=== PATIENT | female | born 1970 | race Caucasian/White ===

== ENCOUNTER → 2017-05-16 10:56 | Outpatient (CLI) | payer BC, MEDICARE, SELFPAY ==
[2017-05-16 11:29] LABS: Absolute Lymphocyte Count 1.15 X10^3/ul (0.83-4.51); Absolute Neutrophil Count 6.5 X10^3/uL (2.0-7.7); Basophil# 0.01 X10^3/uL; Basophil% 0.1 % (0-1); Eosinophils% 1.2 % (0-5); Hematocrit 30.5 % (37-47); Hemoglobin 9.7 g/dl (12.0-15.0); Lymphocyte # 1.15 X10^3/ul (4.0); Lymphocyte % 13.6 % (19-41); Mean Corp Hgb Conc 31.8 g/gl (32-36); Mean Corpuscular Hgb 25.6 pg (27.0-32.0); Mean Corpuscular Volume 80.5 fL (81-99); Mean Platelet Vol. 9.4 fl (6.2-12.0); Monocyte# 0.65 X10^3/uL; Monocyte% 7.7 % (0-10); Neutrophil # 6.49 X10^3/uL (2.7-7.7); Platelet Count 198 K/mm3 (150-450); RBC Distribution Width CV 15.1 % (11.6-14.6); RBC Distribution Width SD 43.9 fl (35.1-43.9); Red Blood Count 3.79 M/mm3 (4.2-5.4); White Blood Count 8.4 K/mm3 (4.4-11.0)
[2017-05-16 11:31] LABS: POSITIVE COUNT NO; POSITIVE DIFFERENTIAL NO; POSITIVE MORPHOLOGY NO
[2017-05-16 11:50] LABS: ALB/GLOB Ratio 0.5 RATIO (0.9-2.4); AST(SGOT) 16 U/L (15-37); Alanine Aminotransfer ALT/SGPT 15 U/L (13-56); Albumin, Serum 2.7 g/dL (3.2-5.0); Alkaline Phosphatase 146 U/L (45-117); Anion Gap 6 (5-15); BUN 16 mg/dL (7-18); BUN/Creat Ratio 17.7 RATIO (10-20); Chloride 102 mmol/L (98-107); EST Glomerular Filtration Rate 71 mL/min (>60); Est Glom Filt Rate - Afr Amer 86 mL/min (>60); Ferritin 94 ng/mL (8-252); Glucose 261 mg/dL (74-106); Iron 24 ug/dL (50-170); Iron Binding Capacity,Total 294 ug/dL (250-450); PERCENT IRON SATURATION 8.2 % (15.0-55.0); Potassium 4.3 mmol/L (3.5-5.1); Protein, Total 7.7 g/dL (6.4-8.2); Sodium Level 138 mmol/L (136-145)
[2017-05-16 12:18] LABS: Erythrocyte Sedimentation Rate 84 mm/hr (0-20)
== END ==
PROVIDERS: Nurse Practitioner Family; Family Provider Family Medicine; PCP Family Medicine; Visit Provider Internal Medicine Rheumatology
DX: M32.9 Systemic lupus erythematosus, unspecified (principal); M79.7 Fibromyalgia; K21.9 Gastro-esophageal reflux disease without esophagitis; K74.69 Other cirrhosis of liver; I27.0 Primary pulmonary hypertension; E11.8 Type 2 diabetes mellitus with unspecified complications; J45.909 Unspecified asthma, uncomplicated; G47.30 Sleep apnea, unspecified; N20.0 Calculus of kidney
CPT/HCPCS: 36415; 80053; 82728; 83540; 83550; 85025; 85652; 86140

== ENCOUNTER → 2017-05-22 07:56 | Outpatient (CLI) | payer BC, MEDICARE, SELFPAY ==
--- NOTE | 2017-05-22 07:58 | NM_ITS ---
CLINICAL: 46-year-old female with reported history of chronic nausea. SEMI-SOLID PHASE 99m Tc SULFUR COLLOID GASTRIC EMPTYING STUDY COMPARISON: Previous semisolid disease gastric emptying study report 07/21/2016 FINDINGS: The patient was administered 1.2 mCi of 99m Tc sulfur colloid mixed with oatmeal and consumed per os. Image acquisitions in the anterior-posterior projections for a total of 60 minutes. There is prompt visualization of the stomach. There is no gastroesophageal reflux identified. First-order kinetics are maintained throughout the duration of the acquisitions. The T1/2 linear fit was calculated to be 50.13 minutes, (Normal: 12-56 minutes). NM/Gastric Emptying Study IMPRESSION: 1. NORMAL 99m Tc sulfur colloid semi-solid phase (oatmeal) gastric emptying imaging examination. A. There is normal and preserved semi-solid phase gastric emptying compared to normal controls with maintained first order kinetics throughout all components of the examination. (Jose Eduardo et al, J Nucl Med Tech 38: 186, 2010). Electronically Signed: Kelby Howe DO at 8:17 EDT Tel , Service support ,
== END ==
PROVIDERS: Family Provider Family Medicine; PCP Family Medicine; Visit Provider Internal Medicine Medical Oncology
DX: R11.10 Vomiting, unspecified (principal)
CPT/HCPCS: 78264; A9541

== ENCOUNTER → 2017-07-23 12:33 | Outpatient (CLI) | payer BC, MEDICARE, SELFPAY ==
--- NOTE | 2017-07-23 12:33 | DT_ITS ---
This patient was seen during an EMR downtime July 20, 2017 - July 27, 2017. This patient may have a combination of paper and electronic documentation or all paper documentation. All documentation is viewable within the e-chart portion of [facility] for each patient visit.
[2017-07-28 04:53] LABS: ALB/GLOB Ratio 0.9 RATIO (0.9-2.4); AST(SGOT) 18 U/L (15-37); Alanine Aminotransfer ALT/SGPT 20 U/L (13-56); Albumin, Serum 3.8 g/dL (3.2-5.0); Alkaline Phosphatase 98 U/L (45-117); Anion Gap 8 (5-15); BUN 31 mg/dL (7-18); BUN/Creat Ratio 21.1 RATIO (10-20); CRP 5.26 mg/L (0.0-3.0); Calcium,Total 10.2 mg/dL (8.5-10.1); Chloride 106 mmol/L (98-107); Creatinine, Serum 1.47 mg/dL (0.55-1.02); EST Glomerular Filtration Rate 41 mL/min (>60); Est Glom Filt Rate - Afr Amer 50 mL/min (>60); Globulin 4.1 g/dL (2.2-4.2); Glucose 104 mg/dL (74-106); Potassium 4.2 mmol/L (3.5-5.1); Protein, Total 7.9 g/dL (6.4-8.2); Sodium Level 144 mmol/L (136-145)
[2017-07-28 04:59] LABS: Hematocrit 48.9 % (37-47); Hemoglobin 17.8 g/dl (12.0-15.0); Mean Corp Hgb Conc 36.4 g/gl (32-36); Mean Corpuscular Hgb 30.1 pg (27.0-32.0); Mean Corpuscular Volume 82.7 fL (81-99); Mean Platelet Vol. 10.6 fl (6.2-12.0); POSITIVE COUNT NO; POSITIVE DIFFERENTIAL NO; POSITIVE MORPHOLOGY NO; Platelet Count 146 K/mm3 (150-450); RBC Distribution Width CV 15.6 % (11.6-14.6); RBC Distribution Width SD 46.6 fl (35.1-43.9); Red Blood Count 5.91 M/mm3 (4.2-5.4); White Blood Count 6.3 K/mm3 (4.4-11.0)
[2017-07-28 05:00] LABS: Absolute Lymphocyte Count 1.67 X10^3/ul (0.83-4.51); Eosinophil# 0.14 X10^3/uL; Eosinophils% 2.2 % (0-5); Lymphocyte # 1.67 X10^3/ul (4.0); Lymphocyte % 26.5 % (19-41); Monocyte# 0.47 X10^3/uL; Monocyte% 7.4 % (0-10); Neutrophil # 4.01 X10^3/uL (2.7-7.7); Neutrophil % 63.6 % (47-70)
== END ==
PROVIDERS: Family Provider Family Medicine; PCP Family Medicine; Visit Provider Internal Medicine Rheumatology
DX: M32.9 Systemic lupus erythematosus, unspecified (principal); M79.7 Fibromyalgia; K21.9 Gastro-esophageal reflux disease without esophagitis; K74.69 Other cirrhosis of liver; I27.0 Primary pulmonary hypertension; E11.8 Type 2 diabetes mellitus with unspecified complications; J45.909 Unspecified asthma, uncomplicated; G47.30 Sleep apnea, unspecified; N20.0 Calculus of kidney
CPT/HCPCS: 36415; 80053; 85025; 86140

== ENCOUNTER → 2017-10-01 09:55 | Outpatient (CLI) | payer BC, MEDICARE, SELFPAY ==
[2017-10-01 12:33] LABS: D-Dimer Quantitative (DVT/PE) 0.46 FEU/ug/m (0.27-0.49)
== END ==
PROVIDERS: Family Provider Family Medicine; PCP Family Medicine; Visit Provider Internal Medicine Pulmonary Disease
DX: R06.00 Dyspnea, unspecified (principal); Z86.718 Personal history of other venous thrombosis and embolism
CPT/HCPCS: 36415; 71046; 85379

== ENCOUNTER → 2017-10-02 08:59 | Outpatient (CLI) | payer BC, MEDICARE, SELFPAY ==
--- NOTE | 2017-10-04 07:09 | EEG ---
- Electroencephalogram Date of service 10/02/2017 History EEG is being done in this 47 yr F to rule out seizures EEG Description: This is an 18 channel EEG with 10-20 lead placement system. Bipolar montages, Referential and Circumferential montages were reviewed. Photic stimulation was performed but Hyperventilation were performed due to the possibility of having DVT per Tech documentation. The posterior dominant rhythm is 10 HZ synchronous, symmetric, reacting to eye opening and closing. Photo stimulation elicited normal driving response but no abnormal photoparoxysmal response, Hyperventilation was not performed. Sleep was identified. There is no abnormal background slowing noted. Low voltage recording. Muscle artefact and EKG artefact noted during the record. There was no epileptiform discharges or electrographic seizures noted during this recording. EEG Interpretation This is a normal awake and asleep EEG. There is no epileptiform discharges or electrographic seizures noted during the record.
== END ==
PROVIDERS: Family Provider Family Medicine; PCP Family Medicine; Visit Provider Internal Medicine Pulmonary Disease
DX: R06.00 Dyspnea, unspecified (principal); R60.0 Localized edema; K14.8 Other diseases of tongue; R25.1 Tremor, unspecified
CPT/HCPCS: 93970; 95819

== ENCOUNTER → 2017-10-13 16:51 | Outpatient (CLI) | payer BC, MEDICARE, SELFPAY ==
[2017-10-09 12:20] LABS: Creatinine, Serum 0.94 mg/dL (0.55-1.02); EST Glomerular Filtration Rate 68 mL/min (>60); Est Glom Filt Rate - Afr Amer 82 mL/min (>60)
== END ==
PROVIDERS: Family Provider Family Medicine; PCP Family Medicine; Visit Provider Internal Medicine Pulmonary Disease
DX: E11.9 Type 2 diabetes mellitus without complications (principal); R06.00 Dyspnea, unspecified; R60.9 Edema, unspecified
CPT/HCPCS: 36415; 71275; 82565; Q9967

== ENCOUNTER → 2017-12-28 17:02 | Outpatient (CLI) | payer BC, MEDICARE, SELFPAY ==
[2017-12-28 17:56] LABS: Absolute Neutrophil Count 5.1 X10^3/uL (2.0-7.7); Basophil# 0.01 X10^3/uL; Basophil% 0.1 % (0-1); Eosinophils% 1.4 % (0-5); Hematocrit 28.7 % (37-47); Hemoglobin 9.4 g/dl (12.0-15.0); Lymphocyte % 22.1 % (19-41); Mean Corp Hgb Conc 32.8 g/gl (32-36); Mean Corpuscular Hgb 27.9 pg (27.0-32.0); Mean Corpuscular Volume 85.2 fL (81-99); Mean Platelet Vol. 10.1 fl (6.2-12.0); Monocyte# 0.43 X10^3/uL; Monocyte% 5.9 % (0-10); Neutrophil # 5.08 X10^3/uL (2.7-7.7); Neutrophil % 70.1 % (47-70); Platelet Count 224 K/mm3 (150-450); RBC Distribution Width CV 15.8 % (11.6-14.6); RBC Distribution Width SD 47.4 fl (35.1-43.9); Red Blood Count 3.37 M/mm3 (4.2-5.4); White Blood Count 7.3 K/mm3 (4.4-11.0)
[2017-12-28 18:03] LABS: POSITIVE COUNT NO; POSITIVE DIFFERENTIAL NO; POSITIVE MORPHOLOGY NO
[2017-12-28 18:47] LABS: ALB/GLOB Ratio 0.8 RATIO (0.9-2.4); AST(SGOT) 19 U/L (15-37); Alanine Aminotransfer ALT/SGPT 35 U/L (13-56); Albumin, Serum 3.7 g/dL (3.2-5.0); Alkaline Phosphatase 138 U/L (45-117); Anion Gap 7 (5-15); BUN 38 mg/dL (7-18); Calcium,Total 9.4 mg/dL (8.5-10.1); Chloride 109 mmol/L (98-107); Creatinine, Serum 1.41 mg/dL (0.55-1.02); EST Glomerular Filtration Rate 43 mL/min (>60); Est Glom Filt Rate - Afr Amer 52 mL/min (>60); Ferritin 345 ng/mL (8-252); Globulin 4.4 g/dL (2.2-4.2); Glucose 134 mg/dL (74-106); Iron 57 ug/dL (50-170); Iron Binding Capacity,Total 286 ug/dL (250-450); PERCENT IRON SATURATION 19.9 % (15.0-55.0); Protein, Total 8.1 g/dL (6.4-8.2); Sodium Level 139 mmol/L (136-145)
== END ==
PROVIDERS: Internal Medicine Medical Oncology; Family Provider Family Medicine; PCP Family Medicine; Referring Provider Internal Medicine Pulmonary Disease; Visit Provider Internal Medicine Pulmonary Disease
DX: M32.9 Systemic lupus erythematosus, unspecified (principal); M79.7 Fibromyalgia; E11.9 Type 2 diabetes mellitus without complications; D50.9 Iron deficiency anemia, unspecified; E61.1 Iron deficiency
CPT/HCPCS: 36415; 80053; 82728; 83540; 83550; 85025

== ENCOUNTER → 2018-05-22 09:23 | Outpatient (CLI) | payer BC, MEDICARE, SELFPAY ==
[2018-05-22 10:17] LABS: Absolute Lymphocyte Count 1.42 X10^3/ul (0.83-4.51); Absolute Neutrophil Count 3.8 X10^3/uL (2.0-7.7); Eosinophil# 0.15 X10^3/uL; Eosinophils% 2.6 % (0-5); Hematocrit 29.2 % (37-47); Hemoglobin 9.4 g/dl (12.0-15.0); Lymphocyte # 1.42 X10^3/ul (4.0); Lymphocyte % 24.6 % (19-41); Mean Corp Hgb Conc 32.2 g/gl (32-36); Mean Corpuscular Hgb 28.1 pg (27.0-32.0); Mean Corpuscular Volume 87.2 fL (81-99); Mean Platelet Vol. 10.2 fl (6.2-12.0); Monocyte# 0.37 X10^3/uL; Monocyte% 6.4 % (0-10); Neutrophil # 3.82 X10^3/uL (2.7-7.7); Neutrophil % 66.1 % (47-70); POSITIVE COUNT NO; POSITIVE DIFFERENTIAL NO; POSITIVE MORPHOLOGY NO; Platelet Count 151 K/mm3 (150-450); RBC Distribution Width SD 44.6 fl (35.1-43.9); Red Blood Count 3.35 M/mm3 (4.2-5.4); White Blood Count 5.8 K/mm3 (4.4-11.0)
[2018-05-22 10:34] LABS: ALB/GLOB Ratio 0.8 RATIO (0.9-2.4); AST(SGOT) 27 U/L (15-37); Alanine Aminotransfer ALT/SGPT 32 U/L (13-56); Albumin, Serum 3.3 g/dL (3.2-5.0); Alkaline Phosphatase 129 U/L (45-117); Anion Gap 6 (5-15); BUN 35 mg/dL (7-18); BUN/Creat Ratio 24.5 RATIO (10-20); Calcium,Total 9.1 mg/dL (8.5-10.1); Chloride 105 mmol/L (98-107); Creatinine, Serum 1.43 mg/dL (0.55-1.02); EST Glomerular Filtration Rate 42 mL/min (>60); Est Glom Filt Rate - Afr Amer 51 mL/min (>60); Glucose 266 mg/dL (74-106); Potassium 4.8 mmol/L (3.5-5.1); Protein, Total 7.3 g/dL (6.4-8.2); Sodium Level 138 mmol/L (136-145)
== END ==
PROVIDERS: Family Provider Family Medicine; PCP Family Medicine; Referring Provider Internal Medicine Rheumatology; Visit Provider Internal Medicine Rheumatology
DX: M32.9 Systemic lupus erythematosus, unspecified (principal); M79.7 Fibromyalgia; K74.69 Other cirrhosis of liver; I27.0 Primary pulmonary hypertension; E11.8 Type 2 diabetes mellitus with unspecified complications; J45.909 Unspecified asthma, uncomplicated; G47.30 Sleep apnea, unspecified; N20.0 Calculus of kidney; K21.9 Gastro-esophageal reflux disease without esophagitis
CPT/HCPCS: 36415; 80053; 85025

== ENCOUNTER → 2018-05-28 11:24 | Outpatient (CLI) | payer BC, MEDICARE, SELFPAY ==
[2017-07-14 14:27] VITALS: BMI 33.0
[2018-05-28 12:33] LABS: EXAGEN MAILED SPECIMEN
== END ==
PROVIDERS: Family Provider Family Medicine; PCP Family Medicine; Referring Provider Internal Medicine Rheumatology; Visit Provider Internal Medicine Rheumatology
DX: M32.9 Systemic lupus erythematosus, unspecified (principal); M79.7 Fibromyalgia; K21.9 Gastro-esophageal reflux disease without esophagitis; K74.69 Other cirrhosis of liver

== ENCOUNTER → 2018-07-22 | Outpatient (CLI) | payer BC, MEDICARE, SELFPAY ==
[2017-07-14 14:27] VITALS: BMI 33.0
[2018-07-22 12:24] LABS: Eosinophil# 0.17 X10^3/uL; Eosinophils% 3.7 % (0-5); Hemoglobin 9.4 g/dl (12.0-15.0); Mean Corp Hgb Conc 32.4 g/gl (32-36); Mean Corpuscular Hgb 28.2 pg (27.0-32.0); Mean Corpuscular Volume 87.1 fL (81-99); Mean Platelet Vol. 10.9 fl (6.2-12.0); Monocyte# 0.24 X10^3/uL; Monocyte% 5.2 % (0-10); Neutrophil # 3.04 X10^3/uL (2.7-7.7); Neutrophil % 66.4 % (47-70); Platelet Count 163 K/mm3 (150-450); RBC Distribution Width CV 13.7 % (11.6-14.6); RBC Distribution Width SD 41.4 fl (35.1-43.9); Red Blood Count 3.33 M/mm3 (4.2-5.4); White Blood Count 4.6 K/mm3 (4.4-11.0)
[2018-07-22 12:36] LABS: POSITIVE COUNT NO; POSITIVE DIFFERENTIAL NO; POSITIVE MORPHOLOGY NO
[2018-07-22 13:15] LABS: Vitamin B12 356 pg/mL (211-911)
[2018-07-22 13:17] LABS: ALB/GLOB Ratio 0.8 RATIO (0.9-2.4); AST(SGOT) 23 U/L (15-37); Alanine Aminotransfer ALT/SGPT 27 U/L (13-56); Albumin, Serum 3.1 g/dL (3.2-5.0); Alkaline Phosphatase 81 U/L (45-117); Anion Gap 11 (5-15); BUN 37 mg/dL (7-18); BUN/Creat Ratio 22.3 RATIO (10-20); Calcium,Total 9.4 mg/dL (8.5-10.1); Chloride 102 mmol/L (98-107); Creatinine, Serum 1.66 mg/dL (0.55-1.02); EST Glomerular Filtration Rate 35 mL/min (>60); Est Glom Filt Rate - Afr Amer 43 mL/min (>60); Ferritin 259 ng/mL (8-252); Globulin 4.1 g/dL (2.2-4.2); Glucose 411 mg/dL (74-106); Potassium 4.9 mmol/L (3.5-5.1); Protein, Total 7.2 g/dL (6.4-8.2); Sodium Level 137 mmol/L (136-145)
[2018-07-23 10:49] LABS: Haptoglobin 144 mg/dL (34-200)
== END | disposition home or self-care (01) ==
LOC: MTLAB 10:54
PROVIDERS: Family Provider Family Medicine; PCP Family Medicine; Referring Provider Internal Medicine Medical Oncology; Visit Provider Internal Medicine Medical Oncology
DX: D50.9 Iron deficiency anemia, unspecified (principal); D63.8 Anemia in other chronic diseases classified elsewhere
CPT/HCPCS: 36415; 80053; 82607; 82728; 82746; 83010; 85025

== ENCOUNTER 2018-07-30 16:11 | Inpatient (IN) | payer BC, MEDICARE, SELFPAY ==
[2018-07-27 15:09] VITALS: BMI 32.4
[2018-07-30] VITALS (7 sets, daily range): BP systolic 115–161; BP diastolic 77–84; PULSE 85–113; RESP 16–21; TEMP 36.3–37.6; O2SAT 94–97; BMI 33.0; BMI 33.5; BMI 33.6
--- NOTE | 2018-07-30 16:30 | ED.VISSUMM ---
- ER Visit Summary Date of Service: 07/30/18 Chief Complaint: Left foot osteomyelitis History of Present Illness: The patient is a 48 F who comes in with osteomyelitis of the left foot. The patient is a diabetic and has had previous transmetatarsal amputations of both feet. She has been following with Dr. Doyle with podiatry. She had an MRI on Thursday which showed osteomyelitis of the foot. Patient has had continued pain in that area. She has had a temperature of up to 100.9 ?F at home. Dr. Doyle spoke with Dr. Aguilar who stated that Dr. Marie would do a left below-knee amputation. The patient's blood sugars been high at home. She has been trying to keep it down with Humalog. Physical Examination: Vital signs are reviewed. HEENT exam unremarkable. Heart is tachycardic and regular rhythm. Lungs are clear. Abdomen soft nontender. Left foot is tender diffusely. There is no swelling or cellulitic changes. She has bilateral foot transmetatarsal amputations. Her neurologic exam is normal. Test Results: CBC shows a white count of 5.3, hemoglobin 9.6. Creatinine 1.76. Blood cultures were obtained Emergency Department Course and Treatment: Patient will be started on vancomycin and ceftriaxone. Discussed with hospitalist for admission Treatment Plan: [] Disposition: Admit for orthopedic consultation and likely BKA Impression: Left foot osteomyelitis This note was generated with Eg[employer] dictation software. It may contain incorrect words, spelling, and punctuation that were not noted in review of the chart prior to signing ED Disposition - Plan for ED Patient: Referrals: Johann Jimenez MD [Primary Care Provider] -
[2018-07-30 16:49] LABS: Absolute Neutrophil Count 3.4 X10^3/uL (2.0-7.7); Eosinophil# 0.14 X10^3/uL; Eosinophils% 2.6 % (0-5); Hematocrit 28.7 % (37-47); Hemoglobin 9.6 g/dl (12.0-15.0); Lymphocyte % 24.5 % (19-41); Mean Corp Hgb Conc 33.4 g/gl (32-36); Mean Corpuscular Hgb 28.4 pg (27.0-32.0); Mean Corpuscular Volume 84.9 fL (81-99); Mean Platelet Vol. 9.6 fl (6.2-12.0); Monocyte# 0.43 X10^3/uL; Monocyte% 8.1 % (0-10); Neutrophil # 3.42 X10^3/uL (2.7-7.7); Neutrophil % 64.4 % (47-70); Platelet Count 184 K/mm3 (150-450); RBC Distribution Width CV 13.9 % (11.6-14.6); RBC Distribution Width SD 42.9 fl (35.1-43.9); Red Blood Count 3.38 M/mm3 (4.2-5.4); White Blood Count 5.3 K/mm3 (4.4-11.0)
[2018-07-30] MEDS: Morphine 4 MG/ML Syringe IV (16:53)
[2018-07-30 16:54] LABS: POSITIVE COUNT NO; POSITIVE DIFFERENTIAL NO; POSITIVE MORPHOLOGY NO
[2018-07-30] MEDS: Ondansetron 4 MG/2 ML Vial IV (16:54)
[2018-07-30 17:06] LABS: Prothrombin Time (Protime)PT. 13.3 SECONDS (11.7-14.9)
[2018-07-30 17:07] LABS: ALB/GLOB Ratio 0.9 RATIO (0.9-2.4); AST(SGOT) 19 U/L (15-37); Alanine Aminotransfer ALT/SGPT 25 U/L (13-56); Albumin, Serum 3.5 g/dL (3.2-5.0); Alkaline Phosphatase 102 U/L (45-117); Anion Gap 6 (5-15); BUN 48 mg/dL (7-18); BUN/Creat Ratio 27.3 RATIO (10-20); Calcium,Total 9.3 mg/dL (8.5-10.1); Chloride 106 mmol/L (98-107); Creatinine, Serum 1.76 mg/dL (0.55-1.02); EST Glomerular Filtration Rate 33 mL/min (>60); Est Glom Filt Rate - Afr Amer 40 mL/min (>60); Estimated Creatinine Clearance 36.99 ml/min; Globulin 4.1 g/dL (2.2-4.2); Glucose 294 mg/dL (74-106); Partial Thromboplast Time 32.1 Seconds (24.1-36.2); Potassium 4.3 mmol/L (3.5-5.1); Protein, Total 7.6 g/dL (6.4-8.2); Sodium Level 135 mmol/L (136-145)
[2018-07-30 17:11] LABS: Bacteria 0 SEEN /hpf (None Seen); Mucous, Urine 0 SEEN /hpf (<or=2+); Red Blood Cells-Urine 0 SEEN /hpf (0-5)
[2018-07-30 17:16] LABS: Color, Urine Yellow (Yellow); Glucose, Dipstick 1000 mg/dl (Normal); Ketone-Dipstick Negative (Negative); Leukocyte Esterase-Dipstick Negative /ul (Negative); Nitrite-Dipstick Negative (Negative); Occult Blood-Urine 50 /ul (Negative); Protein-Dipstick 100 mg/dl (Negative); Specific Gravity, Urine 1.015 (1.002-1.030); Urine Bilirubin Dipstick Negative (Negative); Urine Clarity Clear (Clear); Urine Urobilinogen Normal (Normal)
[2018-07-30 17:22] LABS: Lactic Acid 1.6 mmol/L (0.4-2.0)
[2018-07-30 17:31] LABS: Squamous Epithelial Cells - UA 0-5 SEEN /hpf (5-10); White Blood Cells 0-5 SEEN /hpf (0-5)
--- NOTE | 2018-07-30 17:45 | PCM.HP.STD ---
<Bradley Fox - Last Filed: 07/30/18 17:45> Problem List (1) Osteomyelitis of left foot Status: Acute (2) COPD (chronic obstructive pulmonary disease) Status: Chronic (3) GERD (gastroesophageal reflux disease) Status: Chronic (4) Iron (Fe) deficiency anemia Status: Resolved (5) SLE (systemic lupus erythematosus) Status: Chronic (6) Pulmonary hypertension Status: Chronic (7) Asthma Status: Chronic (8) Diabetes mellitus Status: Chronic Comment: insulin resistance on U500 (9) History of MRSA infection Status: Chronic (10) Depression Status: Chronic (11) Peripheral neuropathy Status: Chronic History of Present Illness Date of Admission: 07/30/18 Chief Complaint: osteo left foot The patient is a 48 year old F with past medical history as above, most notable for severe type 2 diabetes with multiple amputations in the past including both right and left transmetatarsal, MRSA infections, patient of Dr. Doyle, who was sent by Dr. Doyle for development of osteomyelitis of the left foot. The patient has been on Augmentin as an outpatient and had an MRI of the foot this week. She was told today that the MRI resulted showing osteo-of the left side and that she would need to come in for a BKA by Dr. Marie. She has been feeling unwell this week, she reports subjective fevers and chills at home, nausea vomiting and diarrhea, however the left foot itself does not appear acutely infected. There is no erythema, open wounds, drainage, or swelling. In the ER she is afebrile with no leukocytosis. I do not have the MRI results at this time, they were done at [facility]. She will be admitted with an orthopedic consult. [] Past Medical History Past Medical History (Chronic Problems): Chronic Problems (Last Reviewed 07/27/18 @ 15:03 by Mary Jo Coto) COPD (chronic obstructive pulmonary disease) (Chronic) GERD (gastroesophageal reflux disease) (Chronic) Diastolic dysfunction (Chronic) Abnormal CT scan, liver (Chronic) SLE (systemic lupus erythematosus) (Chronic) Pulmonary hypertension (Chronic) Asthma (Chronic) Diabetes mellitus (Chronic) insulin resistance on U500 History of MRSA infection (Chronic) Cirrhosis of liver (Chronic) BEVERLY Anemia of chronic disease (Chronic) Status post transmetatarsal amputation of right foot (Chronic) 04/11/[address] Lindsay Depression (Chronic) Peripheral neuropathy (Chronic) Medical History: Medical History (Last Reviewed 07/27/18 @ 15:03 by Mary Jo Coto) COPD (chronic obstructive pulmonary disease) (Chronic) J44.9 GERD (gastroesophageal reflux disease) (Chronic) K21.9 Diastolic dysfunction (Chronic) I51.9 Chest pain (Resolved) R07.9 Right middle lobe pneumonia (Resolved) J18.1 Acute kidney injury (Resolved) N17.9 Iron (Fe) deficiency anemia (Resolved) D50.[address] scan, liver (Chronic) R93.2 Cellulitis of left foot (Acute) L03.116 Lymphadenopathy, inguinal (Resolved) R59.0 SLE (systemic lupus erythematosus) (Chronic) M32.9 Pulmonary hypertension (Chronic) I27.2 Asthma (Chronic) J45.909 Diabetes mellitus (Chronic) E11.9 insulin resistance on U500 History of MRSA infection (Chronic) Z86.14 Cellulitis of right foot (Resolved) L03.115 due to MRSA Infection of right great toe due to methicillin resistant Staphylococcus aureus (MRSA) (Resolved) A49.02 R great toe previously amputated Cirrhosis of liver (Chronic) K74.60 BEVERLY Anemia of chronic disease (Chronic) D63.8 Depression (Chronic) F32.9 Peripheral neuropathy (Chronic) G62.9 Osteomyelitis of right foot (Resolved) M86.9 due to MRSA Iron deficiency (Suspected) E61.1 Hypomagnesemia (Resolved) E83.42 History of stroke Z86.73 IBS (irritable bowel syndrome) K58.9 History of hysterectomy Z90.710 Rt ovary removed Allergies atorvastatin [From Lipitor] Adverse Reaction (Severe, Verified 07/27/18 15:04) Vomiting oxycodone HCl [From Percocet] Adverse Reaction (Severe, Verified 07/27/18 15:04) Vomiting Home Medications: Ambulatory Orders Medication Instructions Recorded Duloxetine Hcl [Cymbalta] 90 mg PO DAILY 11/26/12 Enalapril Maleate [Vasotec] 2.5 mg PO BID 11/26/12 Ondansetron [Zofran] 8 mg PO PRN PRN 12/29/12 Esomeprazole Mag Trihydrate 40 mg PO BID 05/24/15 [Nexium] Metoclopramide [Reglan] 10 mg PO TID PRN #20 tab 07/08/15 Budesonide Inhaler 180 mcg 2 puff INHALATION DAILY 10/02/15 [Pulmicort Inhaler 180 mcg] Insulin U-500 [Humulin R U-500 0.6 units SC CONT 10/02/15 ([facility])] traZODone [Desyrel] 100 mg PO QHS 12/27/15 Ergocalciferol [Vitamin D] 50,000 unit PO MOWEFR 01/24/16 Ferrous Sulfate 325 mg PO TIDCM 01/24/16 Lorazepam [Ativan] 1 mg PO TID PRN PRN 01/24/16 traMADol [Ultram] 50 mg PO TID 01/24/16 Albuterol Aerosols [Ventolin 2.5 mg INHALATION Q4H PRN PRN 06/09/16 Aerosols] Albuterol Sulfate [Proventil Hfa] 6.7 gm IH PRN PRN 06/09/16 Magnesium Oxide [Mag-Ox 400] 400 mg PO DAILYCM #30 tab 07/22/16 Sucralfate 1 gm PO QHS 09/01/16 Gabapentin [Neurontin] 800 mg PO TID 05/19/17 potassium citrate ER 5 mEq (540 10 meq PO TID tab 06/03/17 mg) tablet,extended release rosuvastatin 10 mg tablet 20 mg PO DAILY tab 06/03/17 Surgical History: Surgical History (Last Reviewed 07/27/18 @ 15:04 by Mary Jo Coto) Status post transmetatarsal amputation of right foot (Chronic) Z89.431 04/11/[address] Lindsay History of eye surgery Z98.890 Lt Retina History of amputation of hallux Z98.890, Z89.419 Rt History of carpal tunnel surgery Z92.89 History of cholecystectomy Z90.49 History of hernia repair Z98.890, Z87.19 History of liver biopsy Z98.890 History of lymph node biopsy Z98.890 History of temporal artery biopsy Z98.890 History of tubal ligation Z98.51 Partial nontraumatic amputation of right foot Z89.431 Surgical History: cholecystectomy, - - Left foot surgery secondary to deep wound infection of the left foot with osteomyelitis, left foot surgery secondary to bunion, lithotripsy of the right kidney secondary to kidney stones, D&C, carpal tunnel surgery, left hand surgery secondary to cyst, tubal ligation Psychiatric History: No pertinent psych hx 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 Smoking Status: Never smoker - *Family History Maternal Family History: Family History (Last Reviewed 07/27/18 @ 15:04 by Mary Jo Coto) Mother Hypertension Grandmother Hypertension Diabetes History Items: Hypertension Paternal Family History: Family History (Last Reviewed 07/27/18 @ 15:04 by Mary Jo Coto) Mother Hypertension Grandmother Hypertension Diabetes History Items: Unknown Sibling Family History: Family History (Last Reviewed 07/27/18 @ 15:04 by Mary Jo Coto) Mother Hypertension Grandmother Hypertension Diabetes History Items: Cancer Review of Systems Constitutional: Reports: Chills, Fever, Malaise. Denies: Weight Change HEENT: Denies: Head Aches, Sinus Congestion, Sinus Drainage Cardiovascular: Denies: Chest Pain, Palpitations Respiratory: Denies: Cough, Shortness of breath at rest, Sputum production Gastrointestinal: Reports: Diarrhea, Nausea. Denies: Abdominal Pain, Vomiting Genitourinary: Denies: Dysuria Musculoskeletal: Denies: Joint Pain, Joint Tenderness Skin: Denies: Rash, Wounds Neurological: Denies: Numbness, Tingling, Focal weakness Psychiatric: Denies: Anxiety, Depression, Homicidal Ideations, Suicidal Ideations Hematologic/ Lymphatic: Denies: Easy Bruising, Easy Bleeding VTE Information - Inpt Only VTE Present on Admission: No VTE Mechan Device Prophylaxis: None VTE Pharm Prophylaxis ordered?: Yes Patient Problems: Active and Suspected Problems (Last Reviewed 07/27/18 @ 15:03 by Mary Jo Coto) Osteomyelitis of left foot (Acute) - Physical Exam General: Alert, Oriented x3, Cooperative HEENT: Atraumatic, PERRLA, EOMI, Normocephalic Neck: Supple, No JVD, Negative Carotid Bruits Lungs: Clear to auscultation, Normal air movement Cardiovascular: Regular rate, No murmurs Abdomen: Bowel Sounds Present, Soft, Non Tender, Obese Extremities: No edema, Capillary Refill Less than 3 Seconds Skin: No rashes, No breakdown Musculoskeletal: No Tenderness to Palpation of Joints or Extremities, - - Status post bilateral transmetatarsal amputations Neurological: Cranial nerves II-XII grossly intact Psych/Mental Status: Normal Affect, Appropriate, Alert and oriented to time, place, person, mood and affect Vital Signs Temp Pulse Resp BP Pulse Ox 99.7 F H 106 H 16 115/77 94 07/30/18 16:56 07/30/18 16:43 07/30/18 16:43 07/30/18 16:43 07/30/18 16:43 Oxygen Delivery Method Room Air Weight: 205 lb Body Mass Index (BMI) 33.0 Finger Stick Blood Glucose 191 Laboratory Tests Past 24 Hrs 07/30/18 07/30/18 07/30/18 16:40 16:40 16:40 WBC 5.3 RBC 3.38 L Hgb 9.6 L Hct 28.7 L MCV 84.9 MCH 28.4 MCHC 33.4 RDW 13.9 RDW Differential 42.9 Plt Count 184 MPV 9.6 Immature Gran % (Auto) 0.400 Neut % (Auto) 64.4 Lymph % (Auto) 24.5 [place] % (Auto) 8.1 Eos % (Auto) 2.6 Baso % (Auto) 0.0 Absolute Neuts (auto) 3.4 Absolute Lymphs (auto) 1.30 Total Counted Not Reportable PT 13.3 INR 1.0 APTT 32.1 Sodium 135 L Potassium 4.3 Chloride 106 Carbon Dioxide 23.0 Anion Gap 6 BUN 48 H Creatinine 1.76 H Estim Creat Clear Calc 36.99 Est GFR (MDRD) Af Amer 40 L Est GFR (MDRD) Non-Af 33 L BUN/Creatinine Ratio 27.3 H Glucose 294 H Lactic Acid Calcium 9.3 Total Bilirubin 0.20 AST 19 ALT 25 Alkaline Phosphatase 102 Total Protein 7.6 Albumin 3.5 Globulin 4.1 Albumin/Globulin Ratio 0.9 Urine Color Urine Clarity Urine pH Ur Specific [place] Urine Protein Urine Glucose (UA) Urine Ketones Urine Occult Blood Urine Nitrite Urine Bilirubin Urine Urobilinogen Ur Leukocyte Esterase Urine RBC Urine WBC Ur Squamous Epith Cells Urine Bacteria Urine Mucus 07/30/18 07/30/18 16:40 17:05 WBC RBC Hgb Hct MCV MCH MCHC RDW RDW Differential Plt Count MPV Immature Gran % (Auto) Neut % (Auto) Lymph % (Auto) [place] % (Auto) Eos % (Auto) Baso % (Auto) Absolute Neuts (auto) Absolute Lymphs (auto) Total Counted PT INR APTT Sodium Potassium Chloride Carbon Dioxide Anion Gap BUN Creatinine Estim Creat Clear Calc Est GFR (MDRD) Af Amer Est GFR (MDRD) Non-Af BUN/Creatinine Ratio Glucose Lactic Acid 1.6 Calcium Total Bilirubin AST ALT Alkaline Phosphatase Total Protein Albumin Globulin Albumin/Globulin Ratio Urine Color Yellow Urine Clarity Clear Urine pH 6.0 Ur Specific [place] 1.015 Urine Protein 100 H Urine Glucose (UA) 1000 H Urine Ketones Negative Urine Occult Blood 50 H Urine Nitrite Negative Urine Bilirubin Negative Urine Urobilinogen Normal Ur Leukocyte Esterase Negative Urine RBC 0 SEEN Urine WBC 0-5 SEEN Ur Squamous Epith Cells 0-5 SEEN Urine Bacteria 0 SEEN Urine Mucus 0 SEEN Assessment/Plan All Active Problems (Last Reviewed 07/27/18 @ 15:03 by Mary Jo Coto) Osteomyelitis of left foot (Acute) Chest pain (Resolved) Right middle lobe pneumonia (Resolved) Acute kidney injury (Resolved) Iron (Fe) deficiency anemia (Resolved) Cellulitis of left foot (Acute) Lymphadenopathy, inguinal (Resolved) Cellulitis of right foot (Resolved) Infection of right great toe due to methicillin resistant Staphylococcus aureus (MRSA) (Resolved) Osteomyelitis of right foot (Resolved) Hypomagnesemia (Resolved) MRSA cellulitis of left foot (Resolved) 1. 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 start vanc. Consult Dr. Marie for BKA. ID consult for further direction and duration of abx therapy. Obtain MRI results from [place]. Afebrile, no leukocytosis. 2. T2DM with obesity - continue insulin regimen with U500 and SSI. 3. CKDIII - trend 4. Peripheral neuropathy - home meds 5. GERD - on PPI, carafate 6. HLD - on statin 7. HTN - stable 8. Asthma/COPD/Pulmonary HTN - pt of dr. Mcmahon - prn aerosols. Pulmicort. No acute exacerbation at this time 9. Hx SLE 10. Hx BEVERLY, Cirrhosis - LFTs normal. 11. Anxiety/depression - ativan, trazodone 12. Hx Iron def. anemia - on PO iron, not significantly below baseline. DVT ppx: SCDs DC planning: PTOT post op. This patient was seen by Bradley Fox PA-C under the supervision of Dr. Loja. <Eliana Loja - Last Filed: 07/30/18 18:43> History of Present Illness The patient is a 48 year old F [] Past Medical History Medical History: Medical History (Last Reviewed 07/27/18 @ 15:03 by Mary Jo Coto) COPD (chronic obstructive pulmonary disease) (Chronic) J44.9 GERD (gastroesophageal reflux disease) (Chronic) K21.9 Diastolic dysfunction (Chronic) I51.9 Chest pain (Resolved) R07.9 Right middle lobe pneumonia (Resolved) J18.1 Acute kidney injury (Resolved) N17.9 Iron (Fe) deficiency anemia (Resolved) D50.[address] scan, liver (Chronic) R93.2 Cellulitis of left foot (Acute) L03.116 Lymphadenopathy, inguinal (Resolved) R59.0 SLE (systemic lupus erythematosus) (Chronic) M32.9 Pulmonary hypertension (Chronic) I27.2 Asthma (Chronic) J45.909 Diabetes mellitus (Chronic) E11.9 insulin resistance on U500 History of MRSA infection (Chronic) Z86.14 Cellulitis of right foot (Resolved) L03.115 due to MRSA Infection of right great toe due to methicillin resistant Staphylococcus aureus (MRSA) (Resolved) A49.02 R great toe previously amputated Cirrhosis of liver (Chronic) K74.60 [place]Y Anemia of chronic disease (Chronic) D63.8 Depression (Chronic) F32.9 Peripheral neuropathy (Chronic) G62.9 Osteomyelitis of right foot (Resolved) M86.9 due to MRSA Iron deficiency (Suspected) E61.1 Hypomagnesemia (Resolved) E83.42 History of stroke Z86.73 IBS (irritable bowel syndrome) K58.9 History of hysterectomy Z90.710 Rt ovary removed Allergies atorvastatin [From Lipitor] Adverse Reaction (Severe, Verified 07/27/18 15:04) Vomiting oxycodone HCl [From Percocet] Adverse Reaction (Severe, Verified 07/27/18 15:04) Vomiting Surgical History: Surgical History (Last Reviewed 07/27/18 @ 15:04 by Mary Jo Coto) Status post transmetatarsal amputation of right foot (Chronic) Z89.431 04/11/[address] Lindsay History of eye surgery Z98.890 Lt Retina History of amputation of hallux Z98.890, Z89.419 Rt History of carpal tunnel surgery Z92.89 History of cholecystectomy Z90.49 History of hernia repair Z98.890, Z87.19 History of liver biopsy Z98.890 History of lymph node biopsy Z98.890 History of temporal artery biopsy Z98.890 History of tubal ligation Z98.51 Partial nontraumatic amputation of right foot Z89.431 - *Family History Maternal Family History: Family History (Last Reviewed 07/27/18 @ 15:04 by Mary Jo Coto) Mother Hypertension Grandmother Hypertension Diabetes Paternal Family History: Family History (Last Reviewed 07/27/18 @ 15:04 by Mary Jo Coto) Mother Hypertension Grandmother Hypertension Diabetes Sibling Family History: Family History (Last Reviewed 07/27/18 @ 15:04 by Mary Jo Coto) Mother Hypertension Grandmother Hypertension Diabetes - Physical Exam Vital Signs Temp Pulse Resp BP Pulse Ox 99.7 F H 104 H 21 H 151/84 H 95 07/30/18 16:56 07/30/18 18:05 07/30/18 18:05 07/30/18 18:05 07/30/18 18:05 Oxygen Delivery Method Room Air Weight: 92.986 kg Body Mass Index (BMI) 33.0 Finger Stick Blood Glucose 191 Laboratory Tests Past 24 Hrs 07/30/18 07/30/18 07/30/18 16:40 16:40 16:40 WBC 5.3 RBC 3.38 L Hgb 9.6 L Hct 28.7 L MCV 84.9 MCH 28.4 MCHC 33.4 RDW 13.9 RDW Differential 42.9 Plt Count 184 MPV 9.6 Immature Gran % (Auto) 0.400 Neut % (Auto) 64.4 Lymph % (Auto) 24.5 [place] % (Auto) 8.1 Eos % (Auto) 2.6 Baso % (Auto) 0.0 Absolute Neuts (auto) 3.4 Absolute Lymphs (auto) 1.30 Total Counted Not Reportable PT 13.3 INR 1.0 APTT 32.1 Sodium 135 L Potassium 4.3 Chloride 106 Carbon Dioxide 23.0 Anion Gap 6 BUN 48 H Creatinine 1.76 H Estim Creat Clear Calc 36.99 Est GFR (MDRD) Af Amer 40 L Est GFR (MDRD) Non-Af 33 L BUN/Creatinine Ratio 27.3 H Glucose 294 H Lactic Acid Calcium 9.3 Total Bilirubin 0.20 AST 19 ALT 25 Alkaline Phosphatase 102 Total Protein 7.6 Albumin 3.5 Globulin 4.1 Albumin/Globulin Ratio 0.9 Urine Color Urine Clarity Urine pH Ur Specific [place] Urine Protein Urine Glucose (UA) Urine Ketones Urine Occult Blood Urine Nitrite Urine Bilirubin Urine Urobilinogen Ur Leukocyte Esterase Urine RBC Urine WBC Ur Squamous Epith Cells Urine Bacteria Urine Mucus 07/30/18 07/30/18 16:40 17:05 WBC RBC Hgb Hct MCV MCH MCHC RDW RDW Differential Plt Count MPV Immature Gran % (Auto) Neut % (Auto) Lymph % (Auto) [place] % (Auto) Eos % (Auto) Baso % (Auto) Absolute Neuts (auto) Absolute Lymphs (auto) Total Counted PT INR APTT Sodium Potassium Chloride Carbon Dioxide Anion Gap BUN Creatinine Estim Creat Clear Calc Est GFR (MDRD) Af Amer Est GFR (MDRD) Non-Af BUN/Creatinine Ratio Glucose Lactic Acid 1.6 Calcium Total Bilirubin AST ALT Alkaline Phosphatase Total Protein Albumin Globulin Albumin/Globulin Ratio Urine Color Yellow Urine Clarity Clear Urine pH 6.0 Ur Specific [place] 1.015 Urine Protein 100 H Urine Glucose (UA) 1000 H Urine Ketones Negative Urine Occult Blood 50 H Urine Nitrite Negative Urine Bilirubin Negative Urine Urobilinogen Normal Ur Leukocyte Esterase Negative Urine RBC 0 SEEN Urine WBC 0-5 SEEN Ur Squamous Epith Cells 0-5 SEEN Urine Bacteria 0 SEEN Urine Mucus 0 SEEN Assessment/Plan This patient was seen in conjunction with KEANU Deshpande. I have independently interviewed and examined the patient and reviewed pertinent historical, laboratory, and other data. Please refer to KEANU Deshpande note for his patient's presentation, findings, and recommendations. I have reviewed and his note and concur with his documentation CC: Abnormal MRI report HPI: 48-year-old female past medical history of type II DM, complicated by peripheral neuropathy, status post bilateral amputation of all toes, history of chronic anemia, close up chronically in the outpatient for IV supplementation, hypertension who follows with Dr. Monroy the busser in the outpatient. And had gone to see her for a 3-week history of pain in her foot. This was associated with some subjective feeling of fever and chills. Pain has been progressively worse. Blood sugars subsequently have also been uncontrolled. An MRI of the foot was ordered which was consistent with osteomyelitis of the third metatarsal of the left foot with edema of the soft tissues of the foot but no evidence of an abscess. Her ESR was 72, BC count of 5.7, hemoglobin 9.3, platelet 156 in the outpatient. Patient was sent to the ED for admission for left BKA Patient admits to being initially emotionally distraught. She has accepted it and feels that it is necessary for her to go on with her life as she has to do with this foot infection for a long time. She denied any chest pain or dizziness or palpitations or shortness of breath PMHX: In addition to the above in HPI patient has history of SLE, asthma/COPD/pulmonary hypertension/cirrhosis of the liver/[place]/anxiety/depression PSHx: History of bilateral transmetatarsal, history of carpal tunnel surgery, cholecystectomy, hernia repair, liver biopsy, temporal artery biopsy, history of tubal ligation FHX: Mother has hypertension SHX: Denies smoking, alcohol use or illicit drug use Physical Exam: Vitals: Temp 97.3F, HR 113, BP 161/83, RR 16, Spo2 97% Gen: Appears comfortable, not pale, not jaundiced CVS:HS I +II, regular, no murmurs RESP: CTA GI: BS present and normal, soft, nontender, no palpable organs EXT:Bilaterally TMA of both feet, no open areas, mild tenderness over the right foot stump Labs: WBC 5.3, Hb 9.6, Plt 184, Na 135, K 4.3, Cl 106, HCO3 23, BUN 48, Cr 1.76, Lactic acid 1.6, Blood glucose is 294 UA is unremarkable. Assessment: 1. Left 3rd metatarsal osteomyelitis 2. Type II DM with CKD stage 3 3. Obesity 4. Hypertension 5. Hyperlipidemia 6. History of asthma/COPD/pulmonary hypertension/SLE/[place]/cirrhosis of the liver/anxiety/depression 7. Chronic iron deficiency anemia, unclear etiology, receiving iron in the outpatient Plan: Orthopedic consult for left BKA IV antibiotics Check HbA1c Continue on home insulin regimen, Accu-Cheks with insulin sliding scale Continue home insulin medication Labs in am Code Visit Inpatient E&M: 67756 Init Hosp L3
--- NOTE | 2018-07-30 18:31 | EKG12_ITS ---
Test Reason : Blood Pressure : / mmHG Vent. Rate : 095 BPM Atrial Rate : 095 BPM P-R Int : 136 ms QRS Dur : 086 ms QT Int : 374 ms P-R-T Axes : 056 -11 066 degrees QTc Int : 469 ms Normal sinus rhythm Poor R- Wave Progression Confirmed by GABRIELA KUMAR, YOUNG ([id number]), photograph editor KATALINA GRAHAM ([id number]) on 08/04/2018 12:41:24 PM Referred By: Eliana Loja Confirmed By:YOUNG OCHOA MD
[2018-07-30] MEDS: 0.9% Normal Saline 1,000 ML 75 ML IV (18:45)
--- NOTE | 2018-07-30 18:51 | PCM.RX.CS ---
Consult Pharmacy has been consulted to manage selected antiobiotic: Vancomycin Type of Consult: New start Suspected Infection: Osteomyelitis Prior Doses of Antibiotics Received/Current Regimen: VANCOMYCIN 1500MG IV X1 IN ED 07/30/18 @1804 Labs: Sodium 135 mmol/L (136-145) L 07/30/18 16:40 Potassium 4.3 mmol/L (3.5-5.1) 07/30/18 16:40 Chloride 106 mmol/L (98-107) 07/30/18 16:40 Carbon Dioxide 23.0 mmol/L (21.0-32.0) 07/30/18 16:40 Anion Gap 6 (5-15) 07/30/18 16:40 BUN 48 mg/dL (7-18) H 07/30/18 16:40 Creatinine 1.76 mg/dL (0.55-1.02) H 07/30/18 16:40 Est GFR (MDRD) Af Amer 40 mL/min (>60) L 07/30/18 16:40 Est GFR (MDRD) Non-Af 33 mL/min (>60) L 07/30/18 16:40 BUN/Creatinine Ratio 27.3 RATIO (10-20) H 07/30/18 16:40 Glucose 294 mg/dL (74-106) H 07/30/18 16:40 Weight used for dosin kg Estimated Creatinine Clearance: 55ML/MIN Goal Trough: 15-20 mcg/mL Pharmacy Plan for Drug Dosing: PLAN/RECOMMENDATIONS 1. Vancomycin 1000mg IV Q12hrs to start 12hrs from ED dose administered 07/31/18 @0600 2. Trough scheduled prior to 4th total dose per protocol 08/01/18 @0530 3. Pharmacy Service will continue to monitor and adjust dosing as required.
[2018-07-30] MEDS: Morphine 2 MG/ML Syringe 1 MG IV ×2 (18:59→23:47)
[2018-07-30 19:01] LABS: Bedside Glucose 158 mg/dL (70-110)
[2018-07-30] MEDS: 0.9% NaCl Peripheral Flush Adult/Peds IV ×2 (19:01→23:48)
[2018-07-30 19:23] LABS: Hemoglobin A1c 10.6 % (4.2-6.3)
[2018-07-30] MEDS: Ipratropium/Albuterol Sulfate 3 ML AMPUL.NEB INHALATION (19:49)
[2018-07-30] MEDS: DULoxetine Hcl 60 MG Capsule PO (22:21)
[2018-07-30] MEDS: Gabapentin 800 MG Tablet PO (22:22)
[2018-07-30] MEDS: Sucralfate 1 GM Tablet PO (22:22)
[2018-07-30] MEDS: Pantoprazole Sodium 40 MG Tablet PO (22:23)
[2018-07-30] MEDS: Metoclopramide 10 MG Tablet PO (22:23)
[2018-07-30] MEDS: Rosuvastatin 20 MG Tablet PO (22:23)
[2018-07-30] MEDS: Lisinopril 2.5 MG Tablet PO (22:24)
[2018-07-30] MEDS: Acetaminophen 325 MG Tablet 650 MG PO (22:28)
[2018-07-30] MEDS: Heparin Injection (Vial) 5,000 UNIT/ML VIAL 5000 UNIT SC (22:30)
[2018-07-30 22:41] LABS: Bedside Glucose 119 mg/dL (70-110)
[2018-07-30] MEDS: Insulin Basal Pump 0.7 UNIT SC (23:53)
[2018-07-31] VITALS (9 sets, daily range): BP systolic 125–145; BP diastolic 62–75; PULSE 78–108; RESP 16–18; TEMP 36.3–37.1; O2SAT 97–100
[2018-07-31] MEDS: traZODone 100 MG Tablet PO ×2 (00:07→21:41)
[2018-07-31] MEDS: Gabapentin 800 MG Tablet PO ×3 (05:59→21:41)
[2018-07-31] MEDS: Vancomycin IV 1,000 MG/200 ML BAG 200 MG IV ×2 (05:59→17:06)
[2018-07-31 06:19] LABS: Absolute Lymphocyte Count 1.34 X10^3/ul (0.83-4.51); Absolute Neutrophil Count 3.3 X10^3/uL (2.0-7.7); Basophil# 0.01 X10^3/uL; Basophil% 0.2 % (0-1); Eosinophil# 0.15 X10^3/uL; Eosinophils% 2.9 % (0-5); Hematocrit 27.9 % (37-47); Lymphocyte # 1.34 X10^3/ul (4.0); Lymphocyte % 25.6 % (19-41); Mean Corp Hgb Conc 32.3 g/gl (32-36); Mean Corpuscular Hgb 28.4 pg (27.0-32.0); Mean Platelet Vol. 10.2 fl (6.2-12.0); Monocyte# 0.39 X10^3/uL; Monocyte% 7.5 % (0-10); Neutrophil # 3.31 X10^3/uL (2.7-7.7); Neutrophil % 63.2 % (47-70); Platelet Count 182 K/mm3 (150-450); RBC Distribution Width CV 14.2 % (11.6-14.6); RBC Distribution Width SD 46.1 fl (35.1-43.9); Red Blood Count 3.17 M/mm3 (4.2-5.4); White Blood Count 5.2 K/mm3 (4.4-11.0)
[2018-07-31 06:27] LABS: POSITIVE COUNT NO; POSITIVE DIFFERENTIAL NO; POSITIVE MORPHOLOGY NO
[2018-07-31] MEDS: Ipratropium/Albuterol Sulfate 3 ML AMPUL.NEB INHALATION ×4 (06:34→18:30)
[2018-07-31] MEDS: Budesonide Respules 0.5 MG/2 ML AMPUL.NEB. INHALATION ×2 (06:35→18:30)
[2018-07-31 06:36] LABS: Anion Gap 9 (5-15); BUN 46 mg/dL (7-18); BUN/Creat Ratio 27.4 RATIO (10-20); Calcium,Total 8.5 mg/dL (8.5-10.1); Chloride 110 mmol/L (98-107); Creatinine, Serum 1.68 mg/dL (0.55-1.02); EST Glomerular Filtration Rate 35 mL/min (>60); Est Glom Filt Rate - Afr Amer 42 mL/min (>60); Estimated Creatinine Clearance 38.75 ml/min; Glucose 176 mg/dL (74-106); Potassium 4.4 mmol/L (3.5-5.1); Sodium Level 140 mmol/L (136-145)
[2018-07-31] MEDS: Insulin Lispro 100 UNIT/ML INSULN.PEN SQ ×4 (06:46→21:56)
[2018-07-31 06:55] LABS: Bedside Glucose 203 mg/dL (70-110)
[2018-07-31] MEDS: Ferrous Sulfate 325 MG Tablet PO ×3 (07:57→17:04)
[2018-07-31] MEDS: 0.9% Normal Saline 1,000 ML 75 ML IV (07:57)
[2018-07-31] MEDS: Magnesium Oxide 400 MG Tablet PO (07:58)
[2018-07-31] MEDS: Ondansetron 4 MG/2 ML Vial IV (09:24)
[2018-07-31] MEDS: 0.9% NaCl Peripheral Flush Adult/Peds IV ×2 (09:24→21:37)
[2018-07-31] MEDS: Lisinopril 2.5 MG Tablet PO ×2 (10:32→21:41)
[2018-07-31] MEDS: Metoclopramide 10 MG Tablet PO ×2 (10:32→21:41)
[2018-07-31] MEDS: Pantoprazole Sodium 40 MG Tablet PO ×2 (10:32→21:41)
[2018-07-31] MEDS: DULoxetine Hcl 30 MG Capsule PO (10:33)
[2018-07-31 11:30] LABS: Bedside Glucose 295 mg/dL (70-110)
[2018-07-31] MEDS: Morphine 2 MG/ML Syringe 1 MG IV ×3 (11:38→21:37)
--- NOTE | 2018-07-31 12:40 | CM.UR ---
RN CM Assessment Met face to face with patient for initial transition planning/care coordination assessment. Introduced myself and my role. Verb understanding and agreement for assessment. Presentation: Osteomyelitis of left foot--seen in MRI so sent to ER to be admitted. PCP: Tony Specialists: Vivek (podiatry); Lisandro (pulm); Mile (endo); Susie (rheum for lupus & arthritis). Preferred Pharmacy: [email or web address] Insurance: [place] with [facility] secondary. Prescription Benefit: [employer] [email or web address]. No copays as has met OOP max. LNOK: , [place] Home: 2 story home. Has first floor bed and bath. Has 5 steps in front and 2 steps in back. Working on a set up in back so she can get in and out easier. ADLs: Independent Transportation: Self DME: Knee walker, wheelchair, walker, cpap, glucometer, shower bench, handheld showerhead and O2 for sleep and prn. SNF/HHC: [facility]. Passport/waiver entertainer or variety artist: none. Does have a nurse advocate at [facility] [place] ext [phone] Advance Directives: none on file. DC PLAN: to [facility]. Alerting SW. Deepika Wong RN, CCM.
--- NOTE | 2018-07-31 12:43 | PN_ITS ---
Patient Problems: Active and Suspected Problems (Last Reviewed 07/27/18 @ 15:03 by Mary Jo Coto) Osteomyelitis of left foot (Acute) Subjective: No changes. Waiting for ortho eval. No fever/chills/pain/swelling redness. Ate today. - Physical Exam General: Alert, Oriented x3, Cooperative HEENT: Atraumatic, PERRLA, EOMI, Normocephalic Neck: Supple, No JVD, Negative Carotid Bruits Lungs: Clear to auscultation, Normal air movement Cardiovascular: Regular rate, No murmurs Abdomen: Bowel Sounds Present, Soft, Non Tender Extremities: No edema, Capillary Refill Less than 3 Seconds Skin: No rashes, No breakdown Musculoskeletal: No Tenderness to Palpation of Joints or Extremities, - - s/p BL TMA Neurological: Cranial nerves II-XII grossly intact Psych/Mental Status: Normal Affect, Appropriate Vital Signs Temp Pulse Resp BP Pulse Ox 98.7 F 94 16 127/71 H 98 07/31/18 08:00 07/31/18 10:54 07/31/18 10:54 07/31/18 08:00 07/31/18 08:00 Oxygen Flow Rate (L/min) 2 Oxygen Delivery Method Room Air Weight: 237 lb 10.533 oz Body Mass Index (BMI) 33.5 Finger Stick Blood Glucose 191 Intake and Output for Last 24 Hours 07/29/18 07/30/18 07/31/18 23:59 23:59 23:59 Intake Total 1569 / 1569 Balance 1569 / 1569 Microbiology Past 72 Hours 07/30/18 17:05 Urine Culture - Preliminary Urine, Clean Catch GPC Poss Enterococcus sp Gram negative kerry Laboratory Tests Past 24 Hrs 07/30/18 07/30/18 07/30/18 16:40 16:40 16:40 WBC 5.3 RBC 3.38 L Hgb 9.6 L Hct 28.7 L MCV 84.9 MCH 28.4 MCHC 33.4 RDW 13.9 RDW Differential 42.9 Plt Count 184 MPV 9.6 Immature Gran % (Auto) 0.400 Neut % (Auto) 64.4 Lymph % (Auto) 24.5 [place] % (Auto) 8.1 Eos % (Auto) 2.6 Baso % (Auto) 0.0 Absolute Neuts (auto) 3.4 Absolute Lymphs (auto) 1.30 Total Counted Not Reportable PT 13.3 INR 1.0 APTT 32.1 Sodium 135 L Potassium 4.3 Chloride 106 Carbon Dioxide 23.0 Anion Gap 6 BUN 48 H Creatinine 1.76 H Estim Creat Clear Calc 36.99 Est GFR (MDRD) Af Amer 40 L Est GFR (MDRD) Non-Af 33 L BUN/Creatinine Ratio 27.3 H Glucose 294 H Hemoglobin A1c Lactic Acid Calcium 9.3 Total Bilirubin 0.20 AST 19 ALT 25 Alkaline Phosphatase 102 Total Protein 7.6 Albumin 3.5 Globulin 4.1 Albumin/Globulin Ratio 0.9 Urine Color Urine Clarity Urine pH Ur Specific [place] Urine Protein Urine Glucose (UA) Urine Ketones Urine Occult Blood Urine Nitrite Urine Bilirubin Urine Urobilinogen Ur Leukocyte Esterase Urine RBC Urine WBC Ur Squamous Epith Cells Urine Bacteria Urine Mucus 07/30/18 07/30/18 07/30/18 16:40 16:40 17:05 WBC RBC Hgb Hct MCV MCH MCHC RDW RDW Differential Plt Count MPV Immature Gran % (Auto) Neut % (Auto) Lymph % (Auto) [place] % (Auto) Eos % (Auto) Baso % (Auto) Absolute Neuts (auto) Absolute Lymphs (auto) Total Counted PT INR APTT Sodium Potassium Chloride Carbon Dioxide Anion Gap BUN Creatinine Estim Creat Clear Calc Est GFR (MDRD) Af Amer Est GFR (MDRD) Non-Af BUN/Creatinine Ratio Glucose Hemoglobin A1c 10.6 H Lactic Acid 1.6 Calcium Total Bilirubin AST ALT Alkaline Phosphatase Total Protein Albumin Globulin Albumin/Globulin Ratio Urine Color Yellow Urine Clarity Clear Urine pH 6.0 Ur Specific [place] 1.015 Urine Protein 100 H Urine Glucose (UA) 1000 H Urine Ketones Negative Urine Occult Blood 50 H Urine Nitrite Negative Urine Bilirubin Negative Urine Urobilinogen Normal Ur Leukocyte Esterase Negative Urine RBC 0 SEEN Urine WBC 0-5 SEEN Ur Squamous Epith Cells 0-5 SEEN Urine Bacteria 0 SEEN Urine Mucus 0 SEEN 07/31/18 07/31/18 05:25 05:25 WBC 5.2 RBC 3.17 L Hgb 9.0 L Hct 27.9 L MCV 88.0 MCH 28.4 MCHC 32.3 RDW 14.2 RDW Differential 46.1 H Plt Count 182 MPV 10.2 Immature Gran % (Auto) 0.600 Neut % (Auto) 63.2 Lymph % (Auto) 25.6 [place] % (Auto) 7.5 Eos % (Auto) 2.9 Baso % (Auto) 0.2 Absolute Neuts (auto) 3.3 Absolute Lymphs (auto) 1.34 Total Counted Not Reportable PT INR APTT Sodium 140 Potassium 4.4 Chloride 110 H Carbon Dioxide 21.0 Anion Gap 9 BUN 46 H Creatinine 1.68 H Estim Creat Clear Calc 38.75 Est GFR (MDRD) Af Amer 42 L Est GFR (MDRD) Non-Af 35 L BUN/Creatinine Ratio 27.4 H Glucose 176 H Hemoglobin A1c Lactic Acid Calcium 8.5 Total Bilirubin AST ALT Alkaline Phosphatase Total Protein Albumin Globulin Albumin/Globulin Ratio Urine Color Urine Clarity Urine pH Ur Specific [place] Urine Protein Urine Glucose (UA) Urine Ketones Urine Occult Blood Urine Nitrite Urine Bilirubin Urine Urobilinogen Ur Leukocyte Esterase Urine RBC Urine WBC Ur Squamous Epith Cells Urine Bacteria Urine Mucus POC Glucose 07/31/18 07/31/18 07/30/18 11:27 06:45 22:31 POC Glucose 295 H 203 H 119 H 07/30/18 18:54 POC Glucose 158 H Medical Necessity - Tobacco Use Smoking Status: Never smoker Assessment/Plan All Active Problems (Last Reviewed 07/27/18 @ 15:03 by Mary Jo Coto) Osteomyelitis of left foot (Acute) Chest pain (Resolved) Right middle lobe pneumonia (Resolved) Acute kidney injury (Resolved) Iron (Fe) deficiency anemia (Resolved) Cellulitis of left foot (Acute) Lymphadenopathy, inguinal (Resolved) Cellulitis of right foot (Resolved) Infection of right great toe due to methicillin resistant Staphylococcus aureus (MRSA) (Resolved) Osteomyelitis of right foot (Resolved) Hypomagnesemia (Resolved) MRSA cellulitis of left foot (Resolved) 1. 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 continue vanc/rocephin. Consult Dr. Marie for BKA. ID consult for further direction and duration of abx therapy. Obtain MRI results from [place]. Afebrile, no leukocytosis. 2. T2DM with obesity - continue insulin regimen with U500 and SSI. A1C 10.6. 3. CKDIII - stable 4. Peripheral neuropathy - home meds 5. GERD - on PPI, carafate 6. HLD - on statin 7. HTN - stable 8. Asthma/COPD/Pulmonary HTN - pt of dr. Mcmahon - prn aerosols. Pulmicort. No acute exacerbation at this time 9. Hx SLE 10. Hx HINTON, Cirrhosis - LFTs normal. 11. Anxiety/depression - ativan, trazodone 12. Hx Iron def. anemia - on PO iron, not significantly below baseline. DVT ppx: SCDs DC planning: PTOT post op. This patient was seen by Bradley Fox PA-C under the supervision of Dr. Luong
[2018-07-31] MEDS: POTASSIUM CITRATE 5 MEQ TABLET.ER 10 MEQ PO ×2 (13:34→17:02)
--- NOTE | 2018-07-31 14:31 | RAD_ITS ---
STUDY: X-RAY - LEFT FOOT CLINICAL: Female, 48 years old. Osteomyelitis TECHNIQUE: 3 view(s) of the foot. COMPARISON: 11/21/2017 FINDINGS: Normal talus, calcaneus, and tarsal bones. Normal visualized subtalar, talonavicular, calcaneocuboid, tarsal and tarsometatarsal articulations. Transmetatarsal amputation since the prior study. Periosteal reaction of the distal aspect of the third metatarsal remnant identified. There is diffuse soft tissue swelling. No subcutaneous emphysema. RAD/Foot 2 Views IMPRESSION: 1. Periosteal reaction of the distal third metatarsal remnant suggesting osteomyelitis. Soft tissue swelling/cellulitis but no subcutaneous emphysema. 2. Transmetatarsal amputation. Electronically Signed: Vazquez Astudillo MD at 14:59 EDT , Service support ,
[2018-07-31] MEDS: Heparin Injection (Vial) 5,000 UNIT/ML VIAL 5000 UNIT SC ×2 (15:05→21:41)
[2018-07-31 16:56] LABS: Bedside Glucose 286 mg/dL (70-110)
[2018-07-31] MEDS: DULoxetine Hcl 60 MG Capsule PO (21:41)
[2018-07-31] MEDS: Rosuvastatin 20 MG Tablet PO (21:41)
[2018-07-31] MEDS: Sucralfate 1 GM Tablet PO (21:41)
[2018-07-31] MEDS: Insulin Basal Pump 0.7 UNIT SC (21:55)
[2018-07-31 22:05] LABS: Bedside Glucose 317 mg/dL (70-110)
[2018-08-01 02:43] VITALS: BP 127/69; PULSE 87; RESP 16; TEMP 36.6; O2SAT 97
[2018-08-01] MEDS: Gabapentin 800 MG Tablet PO (05:18)
[2018-08-01] MEDS: Heparin Injection (Vial) 5,000 UNIT/ML VIAL 5000 UNIT SC (05:18)
[2018-08-01] MEDS: Ondansetron 4 MG/2 ML Vial IV (06:05)
[2018-08-01] MEDS: Vancomycin IV 1,000 MG/200 ML BAG 200 MG IV (06:05)
[2018-08-01] MEDS: 0.9% NaCl Peripheral Flush Adult/Peds IV ×2 (06:05→09:54)
[2018-08-01 06:56] VITALS: PULSE 87; RESP 14
[2018-08-01] MEDS: Budesonide Respules 0.5 MG/2 ML AMPUL.NEB. INHALATION (06:56)
[2018-08-01] MEDS: Ipratropium/Albuterol Sulfate 3 ML AMPUL.NEB INHALATION ×2 (06:56→11:12)
[2018-08-01] MEDS: Insulin Lispro 100 UNIT/ML INSULN.PEN SQ (07:02)
[2018-08-01 07:04] LABS: Vancomycin, Trough Level 20.1 ug/mL (5.0-15.0)
[2018-08-01 07:26] LABS: Bedside Glucose 229 mg/dL (70-110)
[2018-08-01] MEDS: Ferrous Sulfate 325 MG Tablet PO (07:52)
[2018-08-01] MEDS: Magnesium Oxide 400 MG Tablet PO (07:52)
[2018-08-01] MEDS: Pantoprazole Sodium 40 MG Tablet PO (07:53)
[2018-08-01] MEDS: Lisinopril 2.5 MG Tablet PO (07:53)
[2018-08-01] MEDS: DULoxetine Hcl 30 MG Capsule PO (07:53)
[2018-08-01] MEDS: Metoclopramide 10 MG Tablet PO (07:53)
[2018-08-01] MEDS: POTASSIUM CITRATE 5 MEQ TABLET.ER 10 MEQ PO (07:55)
[2018-08-01 07:58] VITALS: BP 153/88; PULSE 97; RESP 18; TEMP 36.9; O2SAT 98
--- NOTE | 2018-08-01 08:08 | PCM.RX.CS ---
Consult Pharmacy has been consulted to manage selected antiobiotic: Vancomycin Type of Consult: Follow-up Suspected Infection: Osteomyelitis Prior Doses of Antibiotics Received/Current Regimen: Patient has been on 1gm iv q12h. Labs: Sodium 140 mmol/L (136-145) 07/31/18 05:25 Potassium 4.4 mmol/L (3.5-5.1) 07/31/18 05:25 Chloride 110 mmol/L (98-107) H 07/31/18 05:25 Carbon Dioxide 21.0 mmol/L (21.0-32.0) 07/31/18 05:25 Anion Gap 9 (5-15) 07/31/18 05:25 BUN 46 mg/dL (7-18) H 07/31/18 05:25 Creatinine 1.68 mg/dL (0.55-1.02) H 07/31/18 05:25 Est GFR (MDRD) Af Amer 42 mL/min (>60) L 07/31/18 05:25 Est GFR (MDRD) Non-Af 35 mL/min (>60) L 07/31/18 05:25 BUN/Creatinine Ratio 27.4 RATIO (10-20) H 07/31/18 05:25 Glucose 176 mg/dL (74-106) H 07/31/18 05:25 Vancomycin Trough 20.1 ug/mL (5.0-15.0) H 08/01/18 05:40 Microbiology: Microbiology 07/30/18 17:05 Urine, Clean Catch Urine Culture - Preliminary GPC Poss Enterococcus sp Gram negative kerry Weight used for dosin.5 kg - adjusted body weight Estimated Creatinine Clearance: ~55ml/min Goal Trough: 15-20 mcg/mL Pharmacy Plan for Drug Dosing: Vancomycin trough level of 6.16.19 @0540 was 20.1 (goal range 15-20 mcg/ml). Will adjust dose to 750mg iv q12h starting at 1800 6.16.19 and a repeat trough level has been ordered for 6.18.19 before 4th dose of new regimen. Pharmacy Service will continue to monitor and adjust dosing as required. Follow-Up Labs: Trough Vancomycin - 6.18.19 @0530 before 0600 dose
[2018-08-01] MEDS: Morphine 2 MG/ML Syringe 1 MG IV (09:53)
--- NOTE | 2018-08-01 10:48 | CON.PCM_ITS ---
Reason for Consult Date of Consultation: 08/01/18 Reason for Consultation: Left foot osteomyelitis History of Present Illness: The patient is a 48 year old F [who is a patient of Dr. Chang. She had a left midfoot amputation for MRSA in September. She presented to Dr. Dominguezs cl inic Thursday with malaise and pain in the left foot. MRI and xrays reveal osteomyelitis of the left 3rd metatarsal remnant. At the time of my evaluation, she is sitting at the bedside, non-toxic appearing.] Past Medical History Past Medical History (Chronic Problems): Chronic Problems (Last Reviewed 07/27/18 @ 15:03 by Mary Jo Coto) COPD (chronic obstructive pulmonary disease) (Chronic) GERD (gastroesophageal reflux disease) (Chronic) Diastolic dysfunction (Chronic) Abnormal CT scan, liver (Chronic) SLE (systemic lupus erythematosus) (Chronic) Pulmonary hypertension (Chronic) Asthma (Chronic) Diabetes mellitus (Chronic) insulin resistance on U500 History of MRSA infection (Chronic) Cirrhosis of liver (Chronic) HINTON Anemia of chronic disease (Chronic) Status post transmetatarsal amputation of right foot (Chronic) 04/11/[address] Lindsay Depression (Chronic) Peripheral neuropathy (Chronic) Medical History: Medical History (Last Reviewed 07/27/18 @ 15:03 by Mary Jo Coto) COPD (chronic obstructive pulmonary disease) (Chronic) J44.9 GERD (gastroesophageal reflux disease) (Chronic) K21.9 Diastolic dysfunction (Chronic) I51.9 Chest pain (Resolved) R07.9 Right middle lobe pneumonia (Resolved) J18.1 Acute kidney injury (Resolved) N17.9 Iron (Fe) deficiency anemia (Resolved) D50.[address] scan, liver (Chronic) R93.2 Cellulitis of left foot (Acute) L03.116 Lymphadenopathy, inguinal (Resolved) R59.0 SLE (systemic lupus erythematosus) (Chronic) M32.9 Pulmonary hypertension (Chronic) I27.2 Asthma (Chronic) J45.909 Diabetes mellitus (Chronic) E11.9 insulin resistance on U500 History of MRSA infection (Chronic) Z86.14 Cellulitis of right foot (Resolved) L03.115 due to MRSA Infection of right great toe due to methicillin resistant Staphylococcus aureus (MRSA) (Resolved) A49.02 R great toe previously amputated Cirrhosis of liver (Chronic) K74.60 HINTON Anemia of chronic disease (Chronic) D63.8 Depression (Chronic) F32.9 Peripheral neuropathy (Chronic) G62.9 Osteomyelitis of right foot (Resolved) M86.9 due to MRSA Iron deficiency (Suspected) E61.1 Hypomagnesemia (Resolved) E83.42 History of stroke Z86.73 IBS (irritable bowel syndrome) K58.9 History of hysterectomy Z90.710 Rt ovary removed Allergies atorvastatin [From Lipitor] Adverse Reaction (Severe, Verified 07/30/18 19:11) Vomiting oxycodone HCl [From Percocet] Adverse Reaction (Severe, Verified 07/30/18 19:11) Vomiting Home Medications: Ambulatory Orders Medication Instructions Recorded Duloxetine Hcl [Cymbalta] 60 mg PO QHS 11/26/12 Enalapril Maleate [Vasotec] 2.5 mg PO BID 11/26/12 Ondansetron [Zofran] 8 mg PO Q8H PRN 12/29/12 Esomeprazole Mag Trihydrate 40 mg PO BID 05/24/15 [Nexium] Budesonide Inhaler 180 mcg 2 puff INHALATION DAILY 10/02/15 [Pulmicort Inhaler 180 mcg] Insulin U-500 [Humulin R U-500 0.7 units SC CONT 10/02/15 ([facility])] traZODone [Desyrel] 100 mg PO QHS 12/27/15 Ergocalciferol [Vitamin D] 50,000 unit PO MOWEFR 01/24/16 Ferrous Sulfate 325 mg PO TIDCM 01/24/16 Lorazepam [Ativan] 1 mg PO TID PRN PRN 01/24/16 traMADol [Ultram] 50 mg PO TID 01/24/16 Albuterol Aerosols [Ventolin 2.5 mg INHALATION Q4H PRN PRN 06/09/16 Aerosols] Albuterol Sulfate [Proventil Hfa] 6.7 gm IH PRN PRN 06/09/16 Sucralfate 1 gm PO QHS 09/01/16 Gabapentin [Neurontin] 800 mg PO TID 05/19/17 potassium citrate ER 5 mEq (540 10 meq PO TID tab 06/03/17 mg) tablet,extended release rosuvastatin 10 mg tablet 20 mg PO QHS tab 06/03/17 Duloxetine Hcl [Cymbalta] 30 mg PO DAILY 07/30/18 Insulin Aspart [Novolog Flexpen] See Protocol SC ACHS 07/30/18 Loratadine 10 mg PO DAILY 07/30/18 Magnesium Oxide [Mag-Ox 400] 400 mg PO DAILYCM 07/30/18 Metoclopramide [Reglan] 10 mg PO BID 07/30/18 Surgical History: Surgical History (Last Reviewed 07/27/18 @ 15:04 by Mary Jo Coto) Status post transmetatarsal amputation of right foot (Chronic) Z89.431 04/11/[address] Lindsay History of eye surgery Z98.890 Lt Retina History of amputation of hallux Z98.890, Z89.419 Rt History of carpal tunnel surgery Z92.89 History of cholecystectomy Z90.49 History of hernia repair Z98.890, Z87.19 History of liver biopsy Z98.890 History of lymph node biopsy Z98.890 History of temporal artery biopsy Z98.890 History of tubal ligation Z98.51 Partial nontraumatic amputation of right foot Z89.431 Surgical History: cholecystectomy, - - Left foot surgery secondary to deep wound infection of the left foot with osteomyelitis, left foot surgery secondary to bunion, lithotripsy of the right kidney secondary to kidney stones, D&C, carpal tunnel surgery, left hand surgery secondary to cyst, tubal ligation Psychiatric History: No pertinent psych hx CASE PLANNER History: No pertinent CASE PLANNER history Smoking Status: Never smoker - *Family History Maternal Family History: Family History (Last Reviewed 07/27/18 @ 15:04 by Mary Jo Coto) Mother Hypertension Grandmother Hypertension Diabetes History Items: Hypertension Paternal Family History: Family History (Last Reviewed 07/27/18 @ 15:04 by Mary Jo Coto) Mother Hypertension Grandmother Hypertension Diabetes History Items: Unknown Sibling Family History: Family History (Last Reviewed 07/27/18 @ 15:04 by Mary Jo Coto) Mother Hypertension Grandmother Hypertension Diabetes History Items: Cancer Review of Systems Constitutional: Reports: Malaise Musculoskeletal: Reports: Foot Pain - left Patient Problems: Active and Suspected Problems (Last Reviewed 07/27/18 @ 15:03 by Mary Jo Coto) Osteomyelitis of left foot (Acute) - Physical Exam General: Alert, Oriented x3, No apparent distress Extremities: No clubbing, No cyanosis, No edema, Capillary Refill Less than 3 Seconds, Peripheral Pulses Normal Skin: Incision - stable, there is no swelling or erythema of the left foot Vital Signs Temp Pulse Resp BP Pulse Ox 98.5 F 97 18 153/88 H 98 08/01/18 07:58 08/01/18 07:58 08/01/18 07:58 08/01/18 07:58 08/01/18 07:58 Oxygen Flow Rate (L/min) 2 Oxygen Delivery Method Room Air Weight: 209 lb 1 oz Body Mass Index (BMI) 33.5 Finger Stick Blood Glucose 191 Intake and Output for Last 24 Hours 07/30/18 07/31/18 08/01/18 23:59 23:59 23:59 Intake Total 4169 / 4169 563 / 563 Balance 4169 / 4169 563 / 563 Microbiology Past 72 Hours 07/30/18 17:05 Urine Culture - Final Urine, Clean Catch Mixed Gram Positive Organisms Gram negative kerry Laboratory Tests Past 24 Hrs 08/01/18 05:40 Vancomycin Trough 20.1 H POC Glucose 08/01/18 07/31/18 07/31/18 07:00 21:54 16:49 POC Glucose 229 H 317 H 286 H 07/31/18 11:27 POC Glucose 295 H Assessment/Plan All Active Problems (Last Reviewed 07/27/18 @ 15:03 by Mary Jo Coto) Osteomyelitis of left foot (Acute) Chest pain (Resolved) Right middle lobe pneumonia (Resolved) Acute kidney injury (Resolved) Iron (Fe) deficiency anemia (Resolved) Cellulitis of left foot (Acute) Lymphadenopathy, inguinal (Resolved) Cellulitis of right foot (Resolved) Infection of right great toe due to methicillin resistant Staphylococcus aureus (MRSA) (Resolved) Osteomyelitis of right foot (Resolved) Hypomagnesemia (Resolved) MRSA cellulitis of left foot (Resolved) Left 3rd MT remnant osteomyelitis Discussed case with the patient and Dr. Lindsay. Will review with Dr. Marie. Possible DARLINE
[2018-08-01 11:15] VITALS: PULSE 98; RESP 14
--- NOTE | 2018-08-01 11:43 | DCINST_ITS ---
- Discharge Diagnoses Current Active Problems: Current Active and Chronic Problems (Last Reviewed 07/27/18 @ 15:03 by Mary Jo Coto) Osteomyelitis of left foot (Acute) You will use the following diet at home:: Calorie/Carbohydrate Controlled (specify 1200, 1400, etc) - 1800 mirta / day, Cardiac Your food should be the consistency of: Regular Your liquids should be the consistency of: Regular/Thin Discharge Activity: Return to Normal Activity Allergies/Adverse Reactions: Allergies atorvastatin [From Lipitor] Adverse Reaction (Severe, Verified 07/30/18 19:11) Vomiting oxycodone HCl [From Percocet] Adverse Reaction (Severe, Verified 07/30/18 19:11) Vomiting Medications to take at Discharge Duloxetine Hcl [Cymbalta] 60 mg PO QHS 11/26/12 Enalapril Maleate [Vasotec] 2.5 mg PO BID 11/26/12 Ondansetron [Zofran] 8 mg PO Q8H PRN 12/29/12 Esomeprazole Mag Trihydrate [Nexium] 40 mg PO BID 05/24/15 Budesonide Inhaler 180 mcg [Pulmicort Inhaler 180 mcg] 2 puff INHALATION DAILY 10/02/15 Insulin U-500 [Humulin R U-500 ([facility])] 0.7 units SC CONT 10/02/15 traZODone [Desyrel] 100 mg PO QHS 12/27/15 Ergocalciferol [Vitamin D] 50,000 unit PO MOWEFR 01/24/16 Ferrous Sulfate 325 mg PO TIDCM 01/24/16 Lorazepam [Ativan] 1 mg PO TID PRN PRN 01/24/16 traMADol [Ultram] 50 mg PO TID 01/24/16 Albuterol Aerosols [Ventolin Aerosols] 2.5 mg INHALATION Q4H PRN PRN 06/09/16 Albuterol Sulfate [Proventil Hfa] 6.7 gm IH PRN PRN 06/09/16 Sucralfate 1 gm PO QHS 09/01/16 Gabapentin [Neurontin] 800 mg PO TID 05/19/17 potassium citrate ER 5 mEq (540 mg) tablet,extended release 10 meq PO TID tab 06/03/17 rosuvastatin 10 mg tablet 20 mg PO QHS tab 06/03/17 Duloxetine Hcl [Cymbalta] 30 mg PO DAILY 07/30/18 Insulin Aspart [Novolog Flexpen] See Protocol SC ACHS 07/30/18 Loratadine 10 mg PO DAILY 07/30/18 Magnesium Oxide [Mag-Ox 400] 400 mg PO DAILYCM 07/30/18 Metoclopramide [Reglan] 10 mg PO BID 07/30/18 Doxycycline 100 mg PO BID #28 capsule 08/01/18 Insulin Lispro [Humalog Joselito Kwikpen] 12 unit SQ TID #1 ins.pen.hf 08/01/18 The following prescriptions were given: Doxycycline 100 mg PO BID #28 capsule Insulin Lispro [Humalog Joselito Kwikpen] 12 unit SQ TID #1 ins.pen. Primary Care Physician: Johann Jimenez MD [Primary Care Provider] - Please follow up with your Primary Care Physician in: 2 weeks Test Results: Test results from this visit will be discussed in further detail at your follow- up appointment, if applicable. Please Follow Up With: Jose Marie MD When: Call tomorrow for appointment this week. Please Follow Up With: Pat Lindsay When: As directed Proposed Discharge Date: 08/01/18
[2018-08-01 12:00] VITALS: BP 151/86; PULSE 100; RESP 18; TEMP 36.8; O2SAT 95
[2018-08-01 12:00] LABS: Bedside Glucose 393 mg/dL (70-110)
--- NOTE | 2018-08-01 17:35 | PCM.DC.SUM ---
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 BL TMA CKD III SLE GERD HTN HLD Asthma/COPD/pulmonary htn Hx HINTON and cirrhosis Anx/depression iron def anemia - Secondary Discharge Diagnosis Chronic Problems (Last Reviewed 07/27/18 @ 15:03 by Mary Jo Coto) COPD (chronic obstructive pulmonary disease) (Chronic) GERD (gastroesophageal reflux disease) (Chronic) Diastolic dysfunction (Chronic) Abnormal CT scan, liver (Chronic) SLE (systemic lupus erythematosus) (Chronic) Pulmonary hypertension (Chronic) Asthma (Chronic) Diabetes mellitus (Chronic) insulin resistance on U500 History of MRSA infection (Chronic) Cirrhosis of liver (Chronic) HINTON Anemia of chronic disease (Chronic) Status post transmetatarsal amputation of right foot (Chronic) 04/11/[address] Lindsay Depression (Chronic) Peripheral neuropathy (Chronic) Hospital Course and Treatment Imaging Results: RAD/Foot 2 Views IMPRESSION: 1. Periosteal reaction of the distal third metatarsal remnant suggesting osteomyelitis. Soft tissue swelling/cellulitis but no subcutaneous emphysema. 2. Transmetatarsal amputation. 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 Lindsay. The patient stated that she had had an MRI and that Dr. Lindsay told her she needed to go to the ER and be admitted for left sided BKA by Dr. Marie. She had no acute changes at the foot and no signs of acute infection. Xray showed osteo, and we obtained her MRI report that did show osteo. She was admitted and ortho consulted. She was placed on vanc and rocephin. Ortho saw the patient and felt there was no need to operate as an inpatient and that she should be discharged to be seen in the office that week. ID recommended Doxy for PO therapy in the meantime, she was given 14 days of PO Doxy. We started her on 12 units novolog TID with meals at dc to assist with blood sugar control. She was discharged in stable condition and will need follow up with PCP in 2 weeks, Cynthia this week, and Dr. Lindsay as directed. This patient was seen by Bradley Fox PA-C under the supervision of Dr. Luong. [] - Physical Exam General: Alert, Oriented x3, Cooperative HEENT: Atraumatic, PERRLA, EOMI, Normocephalic Neck: Supple, No JVD, Negative Carotid Bruits Lungs: Clear to auscultation, Normal air movement Cardiovascular: Regular rate, No murmurs Abdomen: Bowel Sounds Present, Soft, Non Tender Extremities: No edema, Capillary Refill Less than 3 Seconds Skin: No rashes, No breakdown Musculoskeletal: No Tenderness to Palpation of Joints or Extremities, - - s/p BL TMA Neurological: Cranial nerves II-XII grossly intact Psych/Mental Status: Normal Affect, Appropriate Vital Signs Temp Pulse Resp BP Pulse Ox 98.2 F 100 18 151/86 H 95 08/01/18 12:00 08/01/18 12:00 08/01/18 12:00 08/01/18 12:00 08/01/18 12:00 Oxygen Flow Rate (L/min) 2 Oxygen Delivery Method Room Air Weight: 209 lb 1 oz Body Mass Index (BMI) 33.5 Finger Stick Blood Glucose 191 Intake and Output for Last 24 Hours 07/30/18 07/31/18 08/01/18 23:59 23:59 23:59 Intake Total 4169 / 4169 563 / 563 Balance 4169 / 4169 563 / 563 Microbiology Past 72 Hours 07/30/18 17:05 Urine Culture - Final Urine, Clean Catch Mixed Gram Positive Organisms Gram negative kerry Laboratory Tests Past 24 Hrs 08/01/18 05:40 Vancomycin Trough 20.1 H POC Glucose 08/01/18 08/01/18 07/31/18 11:30 07:00 21:54 POC Glucose 393 H 229 H 317 H Discharge Diet: Low fat/ Low Cholesterol, 1800 Calorie Control Diet, 2000 mg Sodium Diet Discharge Activity: Return to Normal Activity Home Medications: Medications to take at Discharge Duloxetine Hcl [Cymbalta] 60 mg PO QHS 11/26/12 Enalapril Maleate [Vasotec] 2.5 mg PO BID 11/26/12 Ondansetron [Zofran] 8 mg PO Q8H PRN 12/29/12 Esomeprazole Mag Trihydrate [Nexium] 40 mg PO BID 05/24/15 Budesonide Inhaler 180 mcg [Pulmicort Inhaler 180 mcg] 2 puff INHALATION DAILY 10/02/15 Insulin U-500 [Humulin R U-500 (BKC)] 0.7 units SC CONT 10/02/15 traZODone [Desyrel] 100 mg PO QHS 12/27/15 Ergocalciferol [Vitamin D] 50,000 unit PO MOWEFR 01/24/16 Ferrous Sulfate 325 mg PO TIDCM 01/24/16 Lorazepam [Ativan] 1 mg PO TID PRN PRN 01/24/16 traMADol [Ultram] 50 mg PO TID 01/24/16 Albuterol Aerosols [Ventolin Aerosols] 2.5 mg INHALATION Q4H PRN PRN 06/09/16 Albuterol Sulfate [Proventil Hfa] 6.7 gm IH PRN PRN 06/09/16 Sucralfate 1 gm PO QHS 09/01/16 Gabapentin [Neurontin] 800 mg PO TID 05/19/17 potassium citrate ER 5 mEq (540 mg) tablet,extended release 10 meq PO TID tab 06/03/17 rosuvastatin 10 mg tablet 20 mg PO QHS tab 06/03/17 Duloxetine Hcl [Cymbalta] 30 mg PO DAILY 07/30/18 Insulin Aspart [Novolog Flexpen] See Protocol SC ACHS 07/30/18 Loratadine 10 mg PO DAILY 07/30/18 Magnesium Oxide [Mag-Ox 400] 400 mg PO DAILYCM 07/30/18 Metoclopramide [Reglan] 10 mg PO BID 07/30/18 Doxycycline 100 mg PO BID #28 cap 08/01/18 Insulin Lispro [Humalog Joselito Kwikpen] 12 unit SQ TID #1 [email or web address] 08/01/18 Following Prescrptions Were Given to Patient: Doxycycline 100 mg PO BID #28 cap Insulin Lispro [Humalog Joselito Kwikpen] 12 unit SQ TID #1 [email or web address] Primary Care Physician: Johann Jimenez MD [Primary Care Provider] - Please follow up with your Primary Care Physician in: 2 weeks Please Follow Up With: Jose Marie MD When: Call tomorrow for appointment this week. Please Follow Up With: Pat Lindsay When: As directed Disposition: Home Minutes spent on discharge:: 35 Patient Condition:: Stable Medical Necessity - Tobacco Use Smoking Status: Never smoker Meaningful Use Info Meaningful Use Diagnoses (Choose all that apply): None applicable
== END 2018-08-01 12:35 | disposition home or self-care (01) | DRG 638 ==
LOC: ED 17:19 → MS3 17:57
PROVIDERS: Admitting Provider Internal Medicine; Emergency Provider Emergency Medicine; Family Provider Family Medicine; PCP Family Medicine; Referring Provider Internal Medicine; Visit Provider Internal Medicine
DX: E13.69 Other specified diabetes mellitus with other specified complication (principal); M86.8X7 Other osteomyelitis, ankle and foot; E11.22 Type 2 diabetes mellitus with diabetic chronic kidney disease; N18.3 Chronic kidney disease, stage 3 (moderate); I12.9 Hypertensive chronic kidney disease with stage 1 through stage 4 chronic kidney disease, or unspecified chronic kidney disease; E78.5 Hyperlipidemia, unspecified; D50.9 Iron deficiency anemia, unspecified; E66.9 Obesity, unspecified; Z68.33 Body mass index [BMI] 33.0-33.9, adult; Z79.4 Long term (current) use of insulin; Z89.431 Acquired absence of right foot; Z89.432 Acquired absence of left foot; M32.9 Systemic lupus erythematosus, unspecified; K21.9 Gastro-esophageal reflux disease without esophagitis; I27.20 Pulmonary hypertension, unspecified; J44.9 Chronic obstructive pulmonary disease, unspecified; K74.60 Unspecified cirrhosis of liver; K75.81 Nonalcoholic steatohepatitis (NASH); F32.9 Major depressive disorder, single episode, unspecified; Z86.14 Personal history of Methicillin resistant Staphylococcus aureus infection
CPT/HCPCS: 36415; 73620; 80048; 80053; 80202; 81001; 82962; 83036; 83605; 85025; 85610; 85730; 87040; 87086; 87088; 93005; 94640; 97802; 99284; J7030; J7040; A4216; J0696; J2405

== ENCOUNTER 2018-10-20 16:57 | Emergency (ER) | payer BC, MEDICARE, SELFPAY ==
[2018-07-30 18:47] VITALS: BMI 33.5
[2018-10-20 16:58] VITALS: BP 152/83; PULSE 109; RESP 19; TEMP 36.2; O2SAT 96; BMI 33.0
--- NOTE | 2018-10-20 17:12 | CT_ITS ---
STUDY: CT ABDOMEN AND PELVIS WITHOUT CONTRAST REASON FOR EXAM: Female, 48 years old. Flank pain and nausea RADIATION DOSAGE (If Supplied By Facility): CTDIvol = ( 18.50 ) mGy, DLP = ( 942.67 ) mGycm TECHNIQUE: Transaxial images were obtained from the dome of the diaphragm to the symphysis pubis without oral contrast, and without intravenous contrast. Sagittal and coronal images were reconstructed. Individualized dose optimization techniques were used for this CT. COMPARISON: December 28, 2016 FINDINGS: There is mild subsegmental atelectasis in left lower lobe.. The visualized portions of the heart are within normal limits. There is enlarged and fatty infiltrated without mass or bile duct dilatation. Gallbladder not visualized consistent with prior cholecystectomy. Spleen is mildly enlarged and homogeneous attenuation Normal pancreas. Normal bilateral adrenal glands. Tiny nonobstructing right renal calculus. There is mild bilateral renal pelvocaliectasis and hydroureter without evidence for ureteral calculus. There is associated stranding in the perinephric fat bilaterally. Normal visualized stomach. Normal small intestine. Normal colon. The appendix is visualized and appears normal. Minor atherosclerotic changes of the aorta without evidence for aneurysm.. Normal inferior vena cava. Normal retroperitoneum. Incompletely distended thick-walled bladder. Uterus not visualized consistent with hysterectomy Normal abdominal wall. Normal osseous structures. CT/Abdomen/Pelvis without Cont IMPRESSION: Hepatosplenomegaly and fatty infiltrated liver Tiny nonobstructing right renal calculus. No evidence for hydronephrosis or ureteral calculus Mild bilateral renal pelvocaliectasis and hydroureter in association with thick-walled incompletely distended bladder possibly due to infection and/or reflux. Status post hysterectomy and cholecystectomy Electronically Signed: Johann Crenshaw MD at 18:50 EDT , Service support ,
[2018-10-20] MEDS: 0.9% Normal Saline 1,000 ML 250 ML IV (17:24)
[2018-10-20] MEDS: Ondansetron 4 MG/2 ML Vial IV (17:25)
[2018-10-20] MEDS: Morphine 4 MG/ML Syringe IV ×2 (17:25→18:26)
[2018-10-20 17:29] LABS: Absolute Lymphocyte Count 1.69 X10^3/uL (0.83-4.51); Absolute Neutrophil Count 7.9 X10^3/uL (2.0-7.7); Basophil# 0.02 X10^3/uL; Basophil% 0.2 % (0-1); Eosinophils% 1.9 % (0-5); Hematocrit 31.3 % (37-47); Hemoglobin 10.7 g/dL (12.0-15.0); Lymphocyte # 1.69 X10^3/ul (4.0); Lymphocyte % 15.9 % (19-41); Mean Corp Hgb Conc 34.2 g/dL (32-36); Mean Corpuscular Hgb 28.6 pg (27.0-32.0); Mean Corpuscular Volume 83.7 fL (81-99); Mean Platelet Vol. 10.1 fl (6.2-12.0); Monocyte# 0.68 X10^3/uL; Monocyte% 6.4 % (0-10); NRBC Flagged by Analyzer 0 % (0-5); Neutrophil # 7.91 X10^3/uL (2.7-7.7); Neutrophil % 74.5 % (47-70); Platelet Count 257 K/mm3 (150-450); RBC Distribution Width CV 13.9 % (11.6-14.6); RBC Distribution Width SD 42.5 fl (35.1-43.9); Red Blood Count 3.74 M/mm3 (4.2-5.4); White Blood Count 10.6 K/mm3 (4.4-11.0)
--- NOTE | 2018-10-20 17:32 | ED.VISSUMM ---
- ER Visit Summary Date of Service: 10/20/18 Chief Complaint: Right flank pain History of Present Illness: The patient is a 48 F who presents with right flank pain that began today. Patient states the pain feels similar to prior kidney stones. Patient describes the pain as burning and aching. Patient states pain is over the right flank area and radiates to her right abdomen. Patient denies any dysuria or hematuria. Patient admits to some nausea but denies any vomiting. Patient denies any fevers or chills. Patient states nothing makes her pain better or worse. Physical Examination: Vital signs are stable except for mild tachycardia of 109. Patient is afebrile. Patient is in no acute distress. Oral mucosa is pink and moist. Neck is supple. Trachea is midline. There is no JVD noted. Heart was regular rate and rhythm. Lungs are clear and equal bilaterally. Abdomen is soft. Bowel sounds are normal. There is some right CVA tenderness. There is no rebound or guarding noted. Cranial nerves II through XII are intact. There are no focal motor or sensory deficits noted. Test Results: CBC shows a slight anemia with a hemoglobin of 10.7 hematocrit 31.3. BUN was slightly elevated at 30 and creatinine was 1.74. Urinalysis shows leukocyte esterase of 500 with positive nitrites. Occult blood was 250. There were greater than 100 white blood cells and greater than 100 red blood cells. There is 2+ bacteria. Urine culture was obtained. Emergency Department Course and Treatment: Patient was given morphine and Zofran. Patient was given a repeat dose of morphine. Patient was given a dose of Bactrim DS. Patient was given a prescription for Bactrim DS. Patient was instructed to follow-up with her primary care physician in 5 to 7 days. Patient understood and was agreeable with the plan. All questions were answered. Disposition: Discharge home Impression: Pyelonephritis This note was generated with [employer] dictation software. It may contain incorrect words, spelling, and punctuation that were not noted in review of the chart prior to signing ED Disposition - Plan for ED Patient: Disposition: Home or Assisted Living Diagnosis: Pyelonephritis Instructions: PYELONEPHRITIS, Female (Adult) Prescriptions: Smz/Tmp Ds [Bactrim Ds] 1 tab PO BID #20 tab Prescription Printed Referrals: Johann Jimenez MD [Primary Care Provider] - 5-7 Days
[2018-10-20 17:39] LABS: Mucous, Urine 0 SEEN /hpf (<or=2+); Squamous Epithelial Cells - UA 0 SEEN /hpf (5-10)
[2018-10-20 17:42] LABS: Color, Urine Yellow (Yellow); Glucose, Dipstick 250 mg/dl (Normal); Ketone-Dipstick 5 mg/dl (Negative); Leukocyte Esterase-Dipstick 500 /ul (Negative); Nitrite-Dipstick Positive (Negative); Occult Blood-Urine 250 /ul (Negative); Protein-Dipstick 500 mg/dl (Negative); Specific Gravity, Urine 1.015 (1.002-1.030); Urine Bilirubin Dipstick Negative (Negative); Urine Clarity Cloudy (Clear); Urine Urobilinogen Normal (Normal)
[2018-10-20 17:46] LABS: Anion Gap 9 (5-15); BUN 30 mg/dL (7-18); BUN/Creat Ratio 17.2 RATIO (10-20); Calcium,Total 10.2 mg/dL (8.5-10.1); Chloride 100 mmol/L (98-107); Creatinine, Serum 1.74 mg/dL (0.55-1.02); EST Glomerular Filtration Rate 33 mL/min (>60); Est Glom Filt Rate - Afr Amer 40 mL/min (>60); Estimated Creatinine Clearance 37.42 ml/min; Glucose 194 mg/dL (74-106); Potassium 3.8 mmol/L (3.5-5.1); Sodium Level 136 mmol/L (136-145)
[2018-10-20 17:55] LABS: Bacteria 2+ /hpf (None Seen); Red Blood Cells-Urine > 100 SEEN /hpf (0-5); White Blood Cells >100 SEEN /hpf (0-5)
--- NOTE | 2018-10-20 18:13 | ED.RN ---
AWARE PT REQUESTING SOMETHING FOR PAIN
[2018-10-20 18:30] VITALS: BP 128/62; PULSE 101; RESP 21; O2SAT 95
[2018-10-20] MEDS: Smz/Tmp Ds Tablet 1 TABLET PO (19:52)
[2018-10-20 20:15] VITALS: BP 145/72; PULSE 100; RESP 18; O2SAT 97
== END 2018-10-20 20:16 | disposition home or self-care (01) ==
PROVIDERS: Emergency Provider Emergency Medicine; Family Provider Family Medicine; PCP Family Medicine
DX: N12 Tubulo-interstitial nephritis, not specified as acute or chronic (principal); D64.9 Anemia, unspecified; E11.9 Type 2 diabetes mellitus without complications; K21.9 Gastro-esophageal reflux disease without esophagitis; M32.9 Systemic lupus erythematosus, unspecified; Z87.442 Personal history of urinary calculi; Z79.4 Long term (current) use of insulin; Z79.899 Other long term (current) drug therapy
CPT/HCPCS: 74176; 80048; 81001; 85025; 87086; 87088; 87186; 96361; 96374; 96375; 99284; J7030; A4216; J2405

== ENCOUNTER 2018-11-08 15:54 | Emergency (ER) | payer BC, MEDICARE, SELFPAY ==
[2018-11-08 15:55] VITALS: BP 141/84; PULSE 98; RESP 17; TEMP 37.1; O2SAT 96; BMI 34.0
--- NOTE | 2018-11-08 16:59 | CT_ITS ---
STUDY: CT ABDOMEN AND PELVIS WITH CONTRAST REASON FOR EXAM: Female, 48 years old. Nausea vomiting and diarrhea RADIATION DOSAGE (If Supplied By Facility): DLP = ( 2243.90 ) mGycm TECHNIQUE: Transaxial images were obtained from the dome of the diaphragm to the symphysis pubis without oral contrast. 100ML ml of Gastrografin and amp; 100mL Isovue-370 contrast was administered. Sagittal and coronal images were reconstructed. Individualized dose optimization techniques were used for this CT. COMPARISON: CT abdomen pelvis October 20, 2018 FINDINGS: The visualized lung bases are clear. The visualized portions of the heart and pericardium are within normal limits. The gallbladder is absent. There is decreased hepatic attenuation. There are no suspicious hepatic lesions. The spleen is normal in size. The pancreas is within normal limits. The adrenal glands are within normal limits. There are no obstructing renal stones. Mild bilateral collecting system fullness is present. Bilateral renal cysts are present. Stable mild perinephric edema is present. Normal visualized stomach. There is no bowel obstruction or inflammation. The aorta is normal in caliber. There is no abdominal or pelvic free air, free fluid, fluid collection or lymphadenopathy. There are no destructive osseous lesions. CT/Abdomen/Pelvis WITH Contrast IMPRESSION: Stable mild perinephric edema and mild bilateral collecting system fullness, nonspecific. No evidence of bowel obstruction or inflammation. Fatty liver. Electronically Signed: Johann Tang, at 18:59 EDT Tel , Service support ,
[2018-11-08] MEDS: Ondansetron 4 MG/2 ML Vial IV ×2 (17:09→19:54)
[2018-11-08] MEDS: Morphine 4 MG/ML Syringe IV (17:11)
[2018-11-08 17:15] VITALS: BP 187/92; PULSE 101; RESP 16; O2SAT 95
[2018-11-08 17:21] LABS: Mucous, Urine 0 SEEN /hpf (<or=2+)
[2018-11-08 17:23] LABS: Color, Urine Yellow (Yellow); Glucose, Dipstick 1000 mg/dl (Normal); Ketone-Dipstick 5 mg/dl (Negative); Leukocyte Esterase-Dipstick 25 /ul (Negative); Nitrite-Dipstick Negative (Negative); Occult Blood-Urine 50 /ul (Negative); Protein-Dipstick 500 mg/dl (Negative); Specific Gravity, Urine 1.025 (1.002-1.030); Urine Bilirubin Dipstick Negative (Negative); Urine Clarity Sl. Cloudy (Clear); Urine Urobilinogen Normal (Normal)
[2018-11-08 17:24] LABS: Absolute Lymphocyte Count 1.27 X10^3/uL (0.83-4.51); Absolute Neutrophil Count 5.6 X10^3/uL (2.0-7.7); Basophil# 0.01 X10^3/uL; Basophil% 0.1 % (0-1); Eosinophil# 0.19 X10^3/uL; Eosinophils% 2.5 % (0-5); Hematocrit 31.9 % (37-47); Hemoglobin 10.8 g/dL (12.0-15.0); Lymphocyte # 1.27 X10^3/ul (4.0); Lymphocyte % 16.8 % (19-41); Mean Corp Hgb Conc 33.9 g/dL (32-36); Mean Corpuscular Hgb 28.9 pg (27.0-32.0); Mean Corpuscular Volume 85.3 fL (81-99); Mean Platelet Vol. 10.4 fl (6.2-12.0); Monocyte% 5.3 % (0-10); NRBC Flagged by Analyzer 0 % (0-5); Neutrophil # 5.64 X10^3/uL (2.7-7.7); Neutrophil % 74.6 % (47-70); Platelet Count 247 K/mm3 (150-450); RBC Distribution Width CV 14.4 % (11.6-14.6); RBC Distribution Width SD 44.2 fl (35.1-43.9); Red Blood Count 3.74 M/mm3 (4.2-5.4); White Blood Count 7.6 K/mm3 (4.4-11.0)
[2018-11-08 17:50] LABS: ALB/GLOB Ratio 0.7 RATIO (0.9-2.4); AST(SGOT) 48 U/L (15-37); Alanine Aminotransfer ALT/SGPT 35 U/L (13-56); Albumin, Serum 3.5 g/dL (3.2-5.0); Alkaline Phosphatase 68 U/L (45-117); Anion Gap 9 (5-15); BUN 40 mg/dL (7-18); BUN/Creat Ratio 23.4 RATIO (10-20); Calcium,Total 10.2 mg/dL (8.5-10.1); Chloride 103 mmol/L (98-107); Creatinine, Serum 1.71 mg/dL (0.55-1.02); EST Glomerular Filtration Rate 34 mL/min (>60); Est Glom Filt Rate - Afr Amer 41 mL/min (>60); Estimated Creatinine Clearance 38.07 ml/min; Globulin 4.7 g/dL (2.2-4.2); Glucose 318 mg/dL (74-106); Lipase 293 U/L (73-393); Potassium 5.2 mmol/L (3.5-5.1); Protein, Total 8.2 g/dL (6.4-8.2); Sodium Level 135 mmol/L (136-145)
[2018-11-08 18:16] LABS: Red Blood Cells-Urine 0-5 SEEN /hpf (0-5); White Blood Cells 0-5 SEEN /hpf (0-5)
[2018-11-08 18:17] LABS: Bacteria 1+ /hpf (None Seen); Squamous Epithelial Cells - UA 5-10 SEEN /hpf (5-10)
[2018-11-08 19:01] VITALS: RESP 16
[2018-11-08 19:55] VITALS: BP 130/75; PULSE 88; RESP 16; O2SAT 94
[2018-11-08] MEDS: 0.9% Normal Saline 1,000 ML 1000 ML IV ×2 (19:59→21:05)
--- NOTE | 2018-11-08 20:09 | ED.DCSUM_ITS ---
- ER Visit Summary Date of Service: 11/08/18 Chief Complaint: Abdominal pain, nausea, vomiting, and diarrhea History of Present Illness: The patient is a 48 F who presents with abdominal pain, nausea, vomiting, diarrhea for the past 6 days. Patient states her diarrhea has been watery. Patient denies any hematemesis or coffee-ground emesis. Patient denies any melena or hematochezia. Patient states her pain is diffuse across her abdomen. Patient describes her pain as sharp and cramping. Patient states her pain is been constant for the past 6 days. Patient denies any dysuria or hematuria. She admits to subjective fevers at home. Patient denies any chest pain or shortness of breath. Physical Examination: Vital signs are stable. Patient is afebrile. Patient is in no acute distress. Oral mucosa is pink and moist. Neck is supple. Trachea is midline. There is no JVD noted. Heart was regular rate and rhythm. Lungs are clear and equal bilaterally. Abdomen is soft. Bowel sounds are normal. There is diffuse tenderness. There is no rebound or guarding noted. Cranial nerves II through XII are intact. There are no focal motor or sensory deficits noted. Test Results: CT scan of the abdomen pelvis was obtained with oral and IV contrast. There is no acute abnormality noted. CBC showed a mild anemia with hemoglobin of 10.8 and hematocrit 31.9. Basic metabolic profile showed creatinine of 1.71 and BUN of 40. Glucose was 318. Potassium was slightly elevated at 5.2. Sodium was 135. Urinalysis does not show any evidence of urinary tract infection. Emergency Department Course and Treatment: Patient was given IV fluids here. Patient was given Zofran and morphine here. Patient was feeling better on reevaluation. Patient was given a prescription for Zofran. Patient was instructed to start with small amounts of fluids frequently. Patient was instructed to advance her diet as tolerated. Patient understood and was agreeable with the plan. All questions were answered. Disposition: Discharge home Impression: Nausea, vomiting, and diarrhea This note was generated with [employer] dictation software. It may contain incorrect words, spelling, and punctuation that were not noted in review of the chart prior to signing ED Disposition - Plan for ED Patient: Disposition: Home or Assisted Living Diagnosis: Nausea vomiting and diarrhea Instructions: VOMITING AND DIARRHEA, Nonspecific (Adult) Prescriptions: Ondansetron [Zofran Odt] 4 mg PO Q8H PRN PRN #10 tab PRN Reason: Nausea Prescription Printed Referrals: Johann Jimenez MD [Primary Care Provider] - 5-7 Days
[2018-11-08 22:05] VITALS: BP 129/74; PULSE 81; RESP 19; O2SAT 98
== END 2018-11-08 22:07 | disposition home or self-care (01) ==
PROVIDERS: Emergency Provider Emergency Medicine; Family Provider Family Medicine; PCP Family Medicine
DX: R11.2 Nausea with vomiting, unspecified (principal); R19.7 Diarrhea, unspecified; R10.9 Unspecified abdominal pain; J34.89 Other specified disorders of nose and nasal sinuses; D64.9 Anemia, unspecified; E66.9 Obesity, unspecified; K21.9 Gastro-esophageal reflux disease without esophagitis; E11.9 Type 2 diabetes mellitus without complications; M32.9 Systemic lupus erythematosus, unspecified; I27.20 Pulmonary hypertension, unspecified; K75.81 Nonalcoholic steatohepatitis (NASH); Z79.4 Long term (current) use of insulin; Z79.899 Other long term (current) drug therapy
CPT/HCPCS: 74177; 80053; 81001; 83690; 85025; 96361; 96374; 96375; 96376; 99283; J7030; Q9967; A4216; J2405

== ENCOUNTER → 2018-12-24 11:06 | Outpatient (CLI) | payer BC, MEDICARE, SELFPAY ==
[2018-12-24 12:46] LABS: Absolute Lymphocyte Count 1.26 X10^3/uL (0.83-4.51); Eosinophil# 0.16 X10^3/uL; Eosinophils% 2.3 % (0-5); Hematocrit 28.6 % (37-47); Hemoglobin 9.5 g/dL (12.0-15.0); Lymphocyte # 1.26 X10^3/ul (4.0); Lymphocyte % 18.4 % (19-41); Mean Corp Hgb Conc 33.2 g/dL (32-36); Mean Corpuscular Hgb 28.2 pg (27.0-32.0); Mean Corpuscular Volume 84.9 fL (81-99); Mean Platelet Vol. 11.3 fl (6.2-12.0); Monocyte# 0.41 X10^3/uL; NRBC Flagged by Analyzer 0 % (0-5); Neutrophil # 4.96 X10^3/uL (2.7-7.7); Neutrophil % 72.6 % (47-70); Platelet Count 188 K/mm3 (150-450); RBC Distribution Width CV 13.6 % (11.6-14.6); RBC Distribution Width SD 42.1 fl (35.1-43.9); Red Blood Count 3.37 M/mm3 (4.2-5.4); White Blood Count 6.8 K/mm3 (4.4-11.0)
[2018-12-24 13:09] LABS: ALB/GLOB Ratio 0.9 RATIO (0.9-2.4); AST(SGOT) 16 U/L (15-37); Alanine Aminotransfer ALT/SGPT 20 U/L (13-56); Albumin, Serum 3.4 g/dL (3.2-5.0); Alkaline Phosphatase 80 U/L (45-117); Anion Gap 8 (5-15); BUN 32 mg/dL (7-18); BUN/Creat Ratio 21.5 RATIO (10-20); Calcium,Total 9.9 mg/dL (8.5-10.1); Chloride 103 mmol/L (98-107); Creatinine, Serum 1.49 mg/dL (0.55-1.02); EST Glomerular Filtration Rate 40 mL/min (>60); Est Glom Filt Rate - Afr Amer 48 mL/min (>60); Globulin 3.6 g/dL (2.2-4.2); Glucose 304 mg/dL (74-106); Potassium 4.6 mmol/L (3.5-5.1); Sodium Level 138 mmol/L (136-145)
== END ==
PROVIDERS: Family Provider Family Medicine; PCP Family Medicine; Referring Provider Internal Medicine Rheumatology; Visit Provider Internal Medicine Rheumatology
DX: M06.4 Inflammatory polyarthropathy (principal); M79.7 Fibromyalgia; K21.9 Gastro-esophageal reflux disease without esophagitis; K74.69 Other cirrhosis of liver; I27.0 Primary pulmonary hypertension; E11.8 Type 2 diabetes mellitus with unspecified complications; J45.909 Unspecified asthma, uncomplicated; G47.30 Sleep apnea, unspecified; N20.0 Calculus of kidney
CPT/HCPCS: 36415; 80053; 85025

== ENCOUNTER → 2019-01-18 14:42 | Outpatient (CLI) | payer BC, MEDICARE, SELFPAY ==
[2019-01-18 17:36] LABS: Absolute Lymphocyte Count 1.42 X10^3/uL (0.83-4.51); Absolute Neutrophil Count 6.4 X10^3/uL (2.0-7.7); Basophil# 0.02 X10^3/uL; Basophil% 0.2 % (0-1); Eosinophil# 0.12 X10^3/uL; Eosinophils% 1.4 % (0-5); Lymphocyte # 1.42 X10^3/ul (4.0); Lymphocyte % 16.8 % (19-41); Mean Corp Hgb Conc 32.3 g/dL (32-36); Mean Corpuscular Hgb 28.4 pg (27.0-32.0); Mean Corpuscular Volume 88.1 fL (81-99); Mean Platelet Vol. 11.2 fl (6.2-12.0); Monocyte# 0.45 X10^3/uL; Monocyte% 5.3 % (0-10); NRBC Flagged by Analyzer 0 % (0-5); Neutrophil # 6.39 X10^3/uL (2.7-7.7); Neutrophil % 75.5 % (47-70); Platelet Count 221 K/mm3 (150-450); RBC Distribution Width CV 13.8 % (11.6-14.6); RBC Distribution Width SD 44.6 fl (35.1-43.9); Red Blood Count 3.52 M/mm3 (4.2-5.4); Reticulocyte Count 4.65 % (0.5-1.5); White Blood Count 8.5 K/mm3 (4.4-11.0)
[2019-01-18 17:50] LABS: ALB/GLOB Ratio 0.9 RATIO (0.9-2.4); AST(SGOT) 16 U/L (15-37); Alanine Aminotransfer ALT/SGPT 23 U/L (13-56); Albumin, Serum 3.5 g/dL (3.2-5.0); Alkaline Phosphatase 71 U/L (45-117); Anion Gap 8 (5-15); BUN 39 mg/dL (7-18); BUN/Creat Ratio 20.6 RATIO (10-20); Calcium,Total 9.8 mg/dL (8.5-10.1); Chloride 106 mmol/L (98-107); Creatinine, Serum 1.89 mg/dL (0.55-1.02); EST Glomerular Filtration Rate 30 mL/min (>60); Est Glom Filt Rate - Afr Amer 37 mL/min (>60); Ferritin 353 ng/mL (8-252); Globulin 4.1 g/dL (2.2-4.2); Glucose 328 mg/dL (74-106); Iron 58 ug/dL (50-170); Iron Binding Capacity,Total 352 ug/dL (250-450); PERCENT IRON SATURATION 16.5 % (15.0-55.0); Potassium 4.9 mmol/L (3.5-5.1); Protein, Total 7.6 g/dL (6.4-8.2); Sodium Level 136 mmol/L (136-145)
[2019-01-18 17:53] LABS: Erythrocyte Sedimentation Rate 39 mm/hr (0-20)
== END ==
PROVIDERS: Family Provider Family Medicine; PCP Family Medicine; Referring Provider Internal Medicine Medical Oncology; Visit Provider Internal Medicine Medical Oncology
DX: D50.9 Iron deficiency anemia, unspecified (principal)
CPT/HCPCS: 36415; 80053; 82728; 83540; 83550; 85025; 85045; 85652

== ENCOUNTER → 2019-04-11 12:31 | Outpatient (CLI) | payer BC, MEDICARE, SELFPAY ==
[2019-04-11 12:31] VITALS: BMI 34.0
[2019-04-11 14:19] LABS: Absolute Lymphocyte Count 1.22 X10^3/uL (0.83-4.51); Basophil# 0.01 X10^3/uL; Basophil% 0.2 % (0-1); Eosinophil# 0.12 X10^3/uL; Eosinophils% 2.1 % (0-5); Hematocrit 28.6 % (37-47); Hemoglobin 9.3 g/dL (12.0-15.0); Lymphocyte # 1.22 X10^3/ul (4.0); Lymphocyte % 21.1 % (19-41); Mean Corp Hgb Conc 32.5 g/dL (32-36); Mean Corpuscular Hgb 28.1 pg (27.0-32.0); Mean Corpuscular Volume 86.4 fL (81-99); Mean Platelet Vol. 10.8 fl (6.2-12.0); Monocyte# 0.38 X10^3/uL; Monocyte% 6.6 % (0-10); NRBC Flagged by Analyzer 0 % (0-5); Platelet Count 179 K/mm3 (150-450); RBC Distribution Width CV 13.8 % (11.6-14.6); Red Blood Count 3.31 M/mm3 (4.2-5.4); White Blood Count 5.8 K/mm3 (4.4-11.0)
[2019-04-11 14:35] LABS: ALB/GLOB Ratio 0.8 RATIO (0.9-2.4); AST(SGOT) 28 U/L (15-37); Alanine Aminotransfer ALT/SGPT 24 U/L (13-56); Albumin, Serum 3.2 g/dL (3.2-5.0); Alkaline Phosphatase 66 U/L (45-117); Anion Gap 6 (5-15); BUN 30 mg/dL (7-18); BUN/Creat Ratio 20.3 RATIO (10-20); Calcium,Total 9.2 mg/dL (8.5-10.1); Chloride 103 mmol/L (98-107); Creatinine, Serum 1.48 mg/dL (0.55-1.02); EST Glomerular Filtration Rate 40 mL/min (>60); Est Glom Filt Rate - Afr Amer 49 mL/min (>60); Glucose 272 mg/dL (74-106); Potassium 4.2 mmol/L (3.5-5.1); Protein, Total 7.2 g/dL (6.4-8.2); Sodium Level 135 mmol/L (136-145)
== END ==
PROVIDERS: PCP Family Medicine; Referring Provider Internal Medicine Rheumatology; Visit Provider Internal Medicine Rheumatology
DX: M06.4 Inflammatory polyarthropathy (principal); M79.7 Fibromyalgia; K21.9 Gastro-esophageal reflux disease without esophagitis; K74.69 Other cirrhosis of liver; I27.0 Primary pulmonary hypertension; E11.8 Type 2 diabetes mellitus with unspecified complications; J45.909 Unspecified asthma, uncomplicated; G47.30 Sleep apnea, unspecified; N20.0 Calculus of kidney
CPT/HCPCS: 36415; 80053; 85025

== ENCOUNTER → 2019-07-19 11:25 | Outpatient (CLI) | payer MEDICARE, SELFPAY ==
[2019-04-11 12:31] VITALS: BMI 34.0
[2019-07-19 15:10] LABS: Absolute Lymphocyte Count 0.91 X10^3/uL (0.83-4.51); Absolute Neutrophil Count 3.9 X10^3/uL (2.0-7.7); Basophil# 0.01 X10^3/uL; Basophil% 0.2 % (0-1); Eosinophil# 0.13 X10^3/uL; Eosinophils% 2.4 % (0-5); Hematocrit 26.2 % (37-47); Hemoglobin 8.2 g/dL (12.0-15.0); Lymphocyte # 0.91 X10^3/ul (4.0); Lymphocyte % 16.9 % (19-41); Mean Corp Hgb Conc 31.3 g/dL (32-36); Mean Corpuscular Hgb 28.2 pg (27.0-32.0); Mean Platelet Vol. 11.5 fl (6.2-12.0); Monocyte# 0.37 X10^3/uL; Monocyte% 6.9 % (0-10); NRBC Flagged by Analyzer 0 % (0-5); Neutrophil # 3.93 X10^3/uL (2.7-7.7); Neutrophil % 72.7 % (47-70); Platelet Count 167 K/mm3 (150-450); RBC Distribution Width CV 13.7 % (11.6-14.6); RBC Distribution Width SD 44.6 fl (35.1-43.9); Red Blood Count 2.91 M/mm3 (4.2-5.4); White Blood Count 5.4 K/mm3 (4.4-11.0)
[2019-07-19 15:21] LABS: Vitamin B12 343 pg/mL (211-911)
[2019-07-19 16:05] LABS: ALB/GLOB Ratio 0.7 RATIO (0.9-2.4); AST(SGOT) 31 U/L (15-37); Alanine Aminotransfer ALT/SGPT 28 U/L (13-56); Albumin, Serum 2.9 g/dL (3.2-5.0); Alkaline Phosphatase 78 U/L (45-117); Anion Gap 8 (5-15); BUN 23 mg/dL (7-18); BUN/Creat Ratio 13.5 RATIO (10-20); Calcium,Total 8.8 mg/dL (8.5-10.1); Chloride 104 mmol/L (98-107); Creatinine, Serum 1.71 mg/dL (0.55-1.02); EST Glomerular Filtration Rate 34 mL/min (>60); Est Glom Filt Rate - Afr Amer 41 mL/min (>60); Ferritin 306 ng/mL (8-252); Globulin 4.3 g/dL (2.2-4.2); Glucose 453 mg/dL (74-106); Iron 61 ug/dL (50-170); Iron Binding Capacity,Total 323 ug/dL (250-450); LDH 166 U/L (84-246); PERCENT IRON SATURATION 18.9 % (15.0-55.0); Potassium 5.5 mmol/L (3.5-5.1); Protein, Total 7.2 g/dL (6.4-8.2); Sodium Level 136 mmol/L (136-145)
== END ==
PROVIDERS: PCP Family Medicine; Referring Provider Internal Medicine Medical Oncology; Visit Provider Internal Medicine Medical Oncology
DX: D50.9 Iron deficiency anemia, unspecified (principal)
CPT/HCPCS: 36415; 80053; 82607; 82728; 82746; 83540; 83550; 83615; 85025

== ENCOUNTER → 2019-08-05 08:51 | Outpatient (CLI) | payer MEDICARE, BC, SELFPAY ==
[2019-07-26 13:23] VITALS: BMI 34.7
[2019-08-05 10:07] LABS: Absolute Lymphocyte Count 1.19 X10^3/uL (0.83-4.51); Absolute Neutrophil Count 3.7 X10^3/uL (2.0-7.7); Basophil# 0.01 X10^3/uL; Basophil% 0.2 % (0-1); Eosinophil# 0.14 X10^3/uL; Eosinophils% 2.6 % (0-5); Hematocrit 28.7 % (37-47); Hemoglobin 8.9 g/dL (12.0-15.0); Lymphocyte # 1.19 X10^3/ul (4.0); Lymphocyte % 21.8 % (19-41); Mean Corpuscular Hgb 28.7 pg (27.0-32.0); Mean Corpuscular Volume 92.6 fL (81-99); Mean Platelet Vol. 11.2 fl (6.2-12.0); Monocyte# 0.36 X10^3/uL; Monocyte% 6.6 % (0-10); NRBC Flagged by Analyzer 0 % (0-5); Neutrophil % 67.9 % (47-70); Platelet Count 184 K/mm3 (150-450); RBC Distribution Width CV 14.2 % (11.6-14.6); RBC Distribution Width SD 47.1 fl (35.1-43.9); White Blood Count 5.5 K/mm3 (4.4-11.0)
[2019-08-05 10:36] LABS: ALB/GLOB Ratio 0.8 RATIO (0.9-2.4); AST(SGOT) 23 U/L (15-37); Alanine Aminotransfer ALT/SGPT 22 U/L (13-56); Albumin, Serum 3.2 g/dL (3.2-5.0); Alkaline Phosphatase 90 U/L (45-117); Anion Gap 5 (5-15); BUN 37 mg/dL (7-18); BUN/Creat Ratio 22.2 RATIO (10-20); Calcium,Total 10.4 mg/dL (8.5-10.1); Chloride 110 mmol/L (98-107); Creatinine, Serum 1.67 mg/dL (0.55-1.02); EST Glomerular Filtration Rate 35 mL/min (>60); Est Glom Filt Rate - Afr Amer 42 mL/min (>60); Globulin 4.2 g/dL (2.2-4.2); Glucose 267 mg/dL (74-106); Potassium 4.8 mmol/L (3.5-5.1); Protein, Total 7.4 g/dL (6.4-8.2); Sodium Level 138 mmol/L (136-145)
== END ==
PROVIDERS: PCP Family Medicine; Referring Provider Internal Medicine Rheumatology; Visit Provider Internal Medicine Rheumatology
DX: M06.4 Inflammatory polyarthropathy (principal); M79.7 Fibromyalgia; K21.9 Gastro-esophageal reflux disease without esophagitis; K74.69 Other cirrhosis of liver; I27.0 Primary pulmonary hypertension; E11.8 Type 2 diabetes mellitus with unspecified complications; J45.909 Unspecified asthma, uncomplicated; G47.30 Sleep apnea, unspecified; N20.0 Calculus of kidney
CPT/HCPCS: 36415; 80053; 85025

== ENCOUNTER → 2019-10-19 09:58 | Outpatient (CLI) | payer MEDICARE, BC, SELFPAY ==
[2019-07-26 13:23] VITALS: BMI 34.7
[2019-10-19 12:19] LABS: Absolute Lymphocyte Count 1.09 X10^3/uL (0.83-4.51); Basophil# 0.01 X10^3/uL; Basophil% 0.2 % (0-1); Eosinophil# 0.13 X10^3/uL; Eosinophils% 2.8 % (0-5); Hematocrit 29.5 % (37-47); Hemoglobin 9.4 g/dL (12.0-15.0); Lymphocyte # 1.09 X10^3/ul (4.0); Lymphocyte % 23.8 % (19-41); Mean Corp Hgb Conc 31.9 g/dL (32-36); Mean Corpuscular Hgb 28.3 pg (27.0-32.0); Mean Corpuscular Volume 88.9 fL (81-99); Mean Platelet Vol. 11.3 fl (6.2-12.0); Monocyte# 0.27 X10^3/uL; Monocyte% 5.9 % (0-10); NRBC Flagged by Analyzer 0 % (0-5); Neutrophil # 3.02 X10^3/uL (2.7-7.7); Platelet Count 190 K/mm3 (150-450); RBC Distribution Width CV 13.8 % (11.6-14.6); RBC Distribution Width SD 44.4 fl (35.1-43.9); Red Blood Count 3.32 M/mm3 (4.2-5.4); White Blood Count 4.6 K/mm3 (4.4-11.0)
[2019-10-19 12:38] LABS: Vitamin B12 349 pg/mL (211-911)
[2019-10-19 12:47] LABS: ALB/GLOB Ratio 0.7 RATIO (0.9-2.4); AST(SGOT) 39 U/L (15-37); Alanine Aminotransfer ALT/SGPT 25 U/L (13-56); Albumin, Serum 3.2 g/dL (3.2-5.0); Alkaline Phosphatase 81 U/L (45-117); Anion Gap 7 (5-15); BUN 30 mg/dL (7-18); BUN/Creat Ratio 18.2 RATIO (10-20); Calcium,Total 9.3 mg/dL (8.5-10.1); Chloride 105 mmol/L (98-107); Creatinine, Serum 1.65 mg/dL (0.55-1.02); EST Glomerular Filtration Rate 35 mL/min (>60); Est Glom Filt Rate - Afr Amer 43 mL/min (>60); Ferritin 302 ng/mL (8-252); Globulin 4.4 g/dL (2.2-4.2); Glucose 288 mg/dL (74-106); Iron 81 ug/dL (50-170); Iron Binding Capacity,Total 469 ug/dL (250-450); LDH 204 U/L (84-246); PERCENT IRON SATURATION 17.3 % (15.0-55.0); Potassium 4.5 mmol/L (3.5-5.1); Protein, Total 7.6 g/dL (6.4-8.2); Sodium Level 135 mmol/L (136-145)
== END ==
PROVIDERS: PCP Family Medicine; Referring Provider Internal Medicine Medical Oncology; Visit Provider Internal Medicine Medical Oncology
DX: M32.9 Systemic lupus erythematosus, unspecified (principal); D63.8 Anemia in other chronic diseases classified elsewhere
CPT/HCPCS: 36415; 80053; 82607; 82728; 82746; 83540; 83550; 83615; 85025

== ENCOUNTER → 2019-12-14 10:08 | Outpatient (CLI) | payer MEDICARE, BC, SELFPAY ==
[2019-10-31 10:19] VITALS: BMI 33.9
[2019-12-14 12:28] LABS: Absolute Lymphocyte Count 1.14 X10^3/uL (0.83-4.51); Absolute Neutrophil Count 2.7 X10^3/uL (2.0-7.7); Eosinophil# 0.12 X10^3/uL; Eosinophils% 2.8 % (0-5); Hematocrit 30.9 % (37-47); Hemoglobin 9.7 g/dL (12.0-15.0); Lymphocyte # 1.14 X10^3/ul (4.0); Lymphocyte % 26.6 % (19-41); Mean Corp Hgb Conc 31.4 g/dL (32-36); Mean Platelet Vol. 10.9 fl (6.2-12.0); Monocyte# 0.33 X10^3/uL; Monocyte% 7.7 % (0-10); NRBC Flagged by Analyzer 0 % (0-5); Neutrophil # 2.65 X10^3/uL (2.7-7.7); Platelet Count 174 K/mm3 (150-450); RBC Distribution Width CV 13.5 % (11.6-14.6); RBC Distribution Width SD 43.9 fl (35.1-43.9); Red Blood Count 3.47 M/mm3 (4.2-5.4); White Blood Count 4.3 K/mm3 (4.4-11.0)
[2019-12-14 12:50] LABS: ALB/GLOB Ratio 0.7 RATIO (0.9-2.4); AST(SGOT) 32 U/L (15-37); Alanine Aminotransfer ALT/SGPT 37 U/L (13-56); Albumin, Serum 3.2 g/dL (3.2-5.0); Alkaline Phosphatase 83 U/L (45-117); Anion Gap 5 (5-15); BUN 26 mg/dL (7-18); BUN/Creat Ratio 15.8 RATIO (10-20); Calcium,Total 9.9 mg/dL (8.5-10.1); Chloride 107 mmol/L (98-107); Creatinine, Serum 1.65 mg/dL (0.55-1.02); EST Glomerular Filtration Rate 35 mL/min (>60); Est Glom Filt Rate - Afr Amer 43 mL/min (>60); Globulin 4.3 g/dL (2.2-4.2); Glucose 245 mg/dL (74-106); Potassium 4.6 mmol/L (3.5-5.1); Protein, Total 7.5 g/dL (6.4-8.2); Sodium Level 138 mmol/L (136-145)
== END ==
PROVIDERS: PCP Family Medicine; Referring Provider Internal Medicine Rheumatology; Visit Provider Internal Medicine Rheumatology
DX: M06.4 Inflammatory polyarthropathy (principal); M79.7 Fibromyalgia; K21.9 Gastro-esophageal reflux disease without esophagitis; K74.69 Other cirrhosis of liver; I27.0 Primary pulmonary hypertension; E11.8 Type 2 diabetes mellitus with unspecified complications; J45.909 Unspecified asthma, uncomplicated; G47.30 Sleep apnea, unspecified; N20.0 Calculus of kidney
CPT/HCPCS: 36415; 80053; 85025

== ENCOUNTER 2020-02-19 11:12 | Inpatient (IN) | payer OTHER, MEDICARE, SELFPAY ==
[2019-10-31 10:19] VITALS: BMI 33.9
[2020-02-19] VITALS (8 sets, daily range): BP systolic 114–143; BP diastolic 75–83; PULSE 87–107; RESP 15–24; TEMP 37–38.1; O2SAT 83–96; BMI 34.2; BMI 30.3
--- NOTE | 2020-02-19 11:33 | EKG12_ITS ---
Test Reason : GENERAL ILLNESS Blood Pressure : / mmHG Vent. Rate : 103 BPM Atrial Rate : 103 BPM P-R Int : 132 ms QRS Dur : 084 ms QT Int : 368 ms P-R-T Axes : 047 -24 041 degrees QTc Int : 482 ms Sinus tachycardia with occasional Premature ventricular complexes Otherwise normal ECG Confirmed by BRE KUMAR, CARLY ([id number]), scientific editor AMI GODOY ([id number]) on 02/21/2020 8:56:57 AM Referred By: Confirmed By:CARLY DÍAZ MD
--- NOTE | 2020-02-19 11:33 | RAD_ITS ---
STUDY: X-RAY CHEST REASON FOR EXAM: Female, 49 years old. FEVER,SOB,COUGH, N/V/D X 1.5 WKS TECHNIQUE: Single AP portable view of the chest. COMPARISON: 10/01/2017 FINDINGS: Alveolar opacity in the lower left lung consistent with left lower lobe pneumonia. There is no demonstrated pleural abnormality. There is moderate cardiac enlargement. Normal mediastinum and andres. Normal visualized pulmonary arteries. Normal visualized aortic arch and descending thoracic aorta. Normal visualized thoracic spine. Normal visualized ribs, clavicles, and shoulders. There is no demonstrated abnormality of the visualized soft tissue structures of the upper abdomen. RAD/Chest 1 View (Portable) IMPRESSION: Left lower lobe pneumonia. Electronically Signed: Kelby Cuadra MD at 12:40 EST Tel , Service support ,
--- NOTE | 2020-02-19 11:44 | ED.DCSUM_ITS ---
- ER Visit Summary Date of Service: 02/19/20 Chief Complaint: Fever History of Present Illness: The patient is a 49 F presenting with fever. She states she has been feeling ill for the past 1.5 weeks. She has had fever and chills. T-max 104.2. She has had a dry cough. She complains of shortness of breath. She has had nausea, vomiting, diarrhea. She complains of diffuse abdominal cramping. She has myalgias. She has a headache. Her was sick before she became sick. She has had lightheadedness with no syncope. On arrival pulse oximetry is 83% on room air. Denies known exposure to Covid. Physical Examination: Blood pressure 143/78, heart rate 107, respiratory rate 24. Temperature 100.6. Pulse ox 83% on room air. Alert no acute distress. HEENT exam is unremarkable. Neck is supple. No meningismus Lungs are no distress. Diminished bilaterally Heart is regular and tachycardic Abdomen is soft nontender nondistended. No guarding or rebound Extremities left BKA Skin is warm and dry. No focal neurologic deficit. Remainder of exam is unremarkable. Emergency Department Course and Treatment: EKG is sinus tachycardia rate of 103. Chest x-ray read by myself and radiology shows left lower lobe pneumonia. CBC demonstrate hemoglobin 9.6. Chemistries show sodium 130, glucose 628, BUN 65, creatinine 2.61. Previous creatinine 1.65. Urinalysis shows 0 white blood cells, glucose. Troponin is negative. Covid is positive. She was given insulin subcutaneous. She states her insulin pump did become disconnected earlier today. Discussed with hospitalist for admission Disposition: Admission Impression: Covid pneumonia, hypoxia, hyperglycemia, ZACHERY This note was generated with [employer] dictation software. It may contain incorrect words, spelling, and punctuation that were not noted in review of the chart prior to signing ED Disposition - Plan for ED Patient: Referrals: Johann Jimenez MD [Primary Care Provider] -
[2020-02-19 12:00] LABS: Absolute Lymphocyte Count 0.53 X10^3/uL (0.83-4.51); Absolute Neutrophil Count 5.2 X10^3/uL (2.0-7.7); Basophil# 0.01 X10^3/uL; Basophil% 0.2 % (0-1); Eosinophil# 0.01 X10^3/uL; Eosinophils% 0.2 % (0-5); Hematocrit 29.3 % (37-47); Hemoglobin 9.6 g/dL (12.0-15.0); Lymphocyte # 0.53 X10^3/ul (4.0); Lymphocyte % 8.5 % (19-41); Mean Corp Hgb Conc 32.8 g/dL (32-36); Mean Corpuscular Hgb 28.2 pg (27.0-32.0); Mean Corpuscular Volume 86.2 fL (81-99); Mean Platelet Vol. 10.9 fl (6.2-12.0); Monocyte% 6.4 % (0-10); NRBC Flagged by Analyzer 0 % (0-5); Neutrophil # 5.18 X10^3/uL (2.7-7.7); Neutrophil % 83.3 % (47-70); POSITIVE DIFFERENTIAL YES; Platelet Count 218 K/mm3 (150-450); RBC Distribution Width CV 14.2 % (11.6-14.6); RBC Distribution Width SD 44.3 fl (35.1-43.9); White Blood Count 6.2 K/mm3 (4.4-11.0)
[2020-02-19 12:04] LABS: Differential Indicated SCAN CRITERIA MET
[2020-02-19 12:15] LABS: Mucous, Urine 0 SEEN /hpf (<or=2+); Red Blood Cells-Urine 0 SEEN /hpf (0-5); White Blood Cells 0 SEEN /hpf (0-5)
[2020-02-19 12:18] LABS: ALB/GLOB Ratio 0.5 RATIO (0.9-2.4); AST(SGOT) 30 U/L (15-37); Alanine Aminotransfer ALT/SGPT 23 U/L (13-56); Albumin, Serum 2.6 g/dL (3.2-5.0); Alkaline Phosphatase 78 U/L (45-117); Anion Gap 10 (5-15); BUN 65 mg/dL (7-18); BUN/Creat Ratio 24.9 RATIO (10-20); Calcium,Total 9.1 mg/dL (8.5-10.1); Chloride 95 mmol/L (98-107); Creatinine, Serum 2.61 mg/dL (0.55-1.02); EST Glomerular Filtration Rate 21 mL/min (>60); Est Glom Filt Rate - Afr Amer 25 mL/min (>60); Estimated Creatinine Clearance 24.68 ml/min; Globulin 5.5 g/dL (2.2-4.2); Glucose 628 mg/dL (74-106); Potassium 4.9 mmol/L (3.5-5.1); Protein, Total 8.1 g/dL (6.4-8.2); Sodium Level 130 mmol/L (136-145)
[2020-02-19 12:21] LABS: Differential Comment SCANNED
[2020-02-19 12:22] LABS: Color, Urine Yellow (Yellow); Glucose, Dipstick 1000 mg/dl (Normal); Ketone-Dipstick 15 mg/dl (Negative); Leukocyte Esterase-Dipstick Negative /ul (Negative); Nitrite-Dipstick Negative (Negative); Occult Blood-Urine 150 /ul (Negative); Protein-Dipstick 500 mg/dl (Negative); Specific Gravity, Urine 1.015 (1.002-1.030); Urine Bilirubin Dipstick Negative (Negative); Urine Clarity Clear (Clear); Urine Urobilinogen Normal (Normal)
[2020-02-19 12:30] LABS: Amorphous Sediment 1+; Bacteria 1+ /hpf (None Seen); Squamous Epithelial Cells - UA 0-5 SEEN /hpf (5-10)
[2020-02-19] MEDS: Insulin Lispro 100 UNIT/ML INSULN.PEN 15 UNIT SC (12:31)
[2020-02-19] MEDS: Acetaminophen 500 MG Tablet 1000 MG PO (13:09)
--- NOTE | 2020-02-19 13:19 | HP.PCM_ITS ---
Problem List (1) Pneumonia due to COVID-19 virus Status: Acute (2) Osteomyelitis of left foot Status: Acute (3) COPD (chronic obstructive pulmonary disease) Status: Chronic (4) GERD (gastroesophageal reflux disease) Status: Chronic (5) Diastolic dysfunction Status: Chronic (6) Chest pain Status: Resolved Qualifiers: Chest pain type: precordial chest pain Qualified Code(s): R07.2 - Precordial pain (7) Right middle lobe pneumonia Status: Resolved (8) Acute kidney injury Status: Resolved (9) Iron (Fe) deficiency anemia Status: Resolved Qualifiers: (10) Abnormal CT scan, liver Status: Chronic (11) Cellulitis of left foot Status: Acute (12) Lymphadenopathy, inguinal Status: Resolved (13) SLE (systemic lupus erythematosus) Status: Chronic (14) Pulmonary hypertension Status: Chronic (15) Asthma Status: Chronic (16) Diabetes mellitus Status: Chronic Comment: insulin resistance on U500 (17) History of MRSA infection Status: Chronic (18) Cellulitis of right foot Status: Resolved Comment: due to MRSA (19) Infection of right great toe due to methicillin resistant Staphylococcus aureus (MRSA) Status: Resolved Comment: R great toe previously amputated (20) Cirrhosis of liver Status: Chronic Qualifiers: Hepatic cirrhosis type: unspecified hepatic cirrhosis Ascites presence: without ascites Qualified Code(s): K74.60 - Unspecified cirrhosis of liver Comment: HINTON (21) Anemia of chronic disease Status: Chronic (22) Status post transmetatarsal amputation of right foot Status: Chronic Comment: 04/11/[address] Lindsay (23) Depression Status: Chronic (24) Peripheral neuropathy Status: Chronic Qualifiers: (25) Osteomyelitis of right foot Status: Resolved Comment: due to MRSA (26) Iron deficiency Status: Resolved (27) Hypomagnesemia Status: Resolved History of Present Illness Date of Admission: 02/19/20 Chief Complaint: Symptoms of cough, shortness of breath since 02/08 The patient is a 49 year old F with multiple comorbidities as listed above came to ED with cough, shortness of breath, fever and chills, nausea vomiting and diarrhea started on 02/09/2020. She said she got her symptoms from her who is also sick and her daughter also has cough. [] In ED, temperature was noted 100.6 Fahrenheit, mild tachycardic heart rate 100/min, blood pressure 125/82 and pulse ox 94% on 2 L of oxygen. Chest x-ray done and shows mild left lower infiltrate. EKG sinus tachycardia at 103 bpm PVCs. QTC 482 ms. Clinically significant abnormal labs H&H 9.6/30, lymphopenia, ALC 0.53 thousand, sodium 130, BUN/creatinine 65/2.61, glucose 628. UA glucose 1000, protein 500, WBC 0 RBC 0. Troponin normal. Past Medical History Past Medical History (Chronic Problems): Chronic Problems (Last Reviewed 10/31/19 @ 10:18 by Katrina Flores) COPD (chronic obstructive pulmonary disease) (Chronic) GERD (gastroesophageal reflux disease) (Chronic) Diastolic dysfunction (Chronic) Abnormal CT scan, liver (Chronic) SLE (systemic lupus erythematosus) (Chronic) Pulmonary hypertension (Chronic) Asthma (Chronic) Diabetes mellitus (Chronic) insulin resistance on U500 History of MRSA infection (Chronic) Cirrhosis of liver (Chronic) HINTON Anemia of chronic disease (Chronic) Status post transmetatarsal amputation of right foot (Chronic) 04/11/[address] Lindsay Depression (Chronic) Peripheral neuropathy (Chronic) Medical History: Medical History (Last Reviewed 10/31/19 @ 10:18 by Katrina Flores) COPD (chronic obstructive pulmonary disease) (Chronic) J44.9 GERD (gastroesophageal reflux disease) (Chronic) K21.9 Diastolic dysfunction (Chronic) I51.9 Chest pain (Resolved) R07.9 Right middle lobe pneumonia (Resolved) J18.1 Acute kidney injury (Resolved) N17.9 Iron (Fe) deficiency anemia (Resolved) D50.[address] scan, liver (Chronic) R93.2 Cellulitis of left foot (Acute) L03.116 Lymphadenopathy, inguinal (Resolved) R59.0 SLE (systemic lupus erythematosus) (Chronic) M32.9 Pulmonary hypertension (Chronic) I27.2 Asthma (Chronic) J45.909 Diabetes mellitus (Chronic) E11.9 insulin resistance on U500 History of MRSA infection (Chronic) Z86.14 Cellulitis of right foot (Resolved) L03.115 due to MRSA Infection of right great toe due to methicillin resistant Staphylococcus aureus (MRSA) (Resolved) A49.02 R great toe previously amputated Cirrhosis of liver (Chronic) K74.60 HINTON Anemia of chronic disease (Chronic) D63.8 Depression (Chronic) F32.9 Peripheral neuropathy (Chronic) G62.9 Osteomyelitis of right foot (Resolved) M86.9 due to MRSA Iron deficiency (Resolved) E61.1 Hypomagnesemia (Resolved) E83.42 Below-knee amputation of left lower extremity S88.112A MRSA bone infection History of stroke Z86.73 IBS (irritable bowel syndrome) K58.9 Allergies atorvastatin [From Lipitor] Adverse Reaction (Severe, Verified 02/19/20 11:14) Vomiting oxycodone HCl [From Percocet] Adverse Reaction (Severe, Verified 02/19/20 11:14) Vomiting Home Medications: Ambulatory Orders Medication Instructions Recorded Duloxetine Hcl [Cymbalta] 60 mg PO QHS 11/26/12 Enalapril Maleate [Vasotec] 2.5 mg PO BID 11/26/12 Ondansetron [Zofran] 8 mg PO Q8H PRN 12/29/12 Esomeprazole Mag Trihydrate 40 mg PO BID 05/24/15 [Nexium] Budesonide Inhaler 180 mcg 2 puff INHALATION DAILY 10/02/15 [Pulmicort Inhaler 180 mcg] Insulin U-500 [Humulin R U-500 0.7 units SC CONT 10/02/15 ([facility])] traZODone [Desyrel] 150 mg PO QHS 12/27/15 Ergocalciferol [Vitamin D] 50,000 unit PO MOWEFR 01/24/16 Ferrous Sulfate 325 mg PO TIDCM 01/24/16 traMADol [Ultram] 50 mg PO TID PRN 01/24/16 Albuterol Aerosols [Ventolin 2.5 mg INHALATION Q4H PRN PRN 06/09/16 Aerosols] Sucralfate 1 gm PO QHS 09/01/16 Gabapentin [Neurontin] 800 mg PO TID 05/19/17 rosuvastatin 10 mg tablet 20 mg PO QHS tab 06/03/17 Duloxetine Hcl [Cymbalta] 30 mg PO DAILY 07/30/18 Insulin Aspart [Novolog Flexpen] See Protocol SC ACHS 07/30/18 Loratadine 10 mg PO DAILY 07/30/18 Magnesium Oxide [Mag-Ox 400] 400 mg PO DAILYCM 07/30/18 Metoclopramide [Reglan] 10 mg PO BID 07/30/18 Surgical History: Surgical History (Last Reviewed 10/31/19 @ 10:18 by Katrina Flores) Status post transmetatarsal amputation of right foot (Chronic) Z89.431 04/11/[address] Lindasy History of eye surgery Z98.890 Lt Retina History of amputation of hallux Z98.890, Z89.419 Rt History of carpal tunnel surgery Z92.89 History of cholecystectomy Z90.49 History of hernia repair Z98.890, Z87.19 History of hysterectomy Z90.710 Rt ovary removed History of liver biopsy Z98.890 History of lymph node biopsy Z98.890 History of temporal artery biopsy Z98.890 History of tubal ligation Z98.51 Partial nontraumatic amputation of right foot Z89.431 Surgical History: cholecystectomy, - - Left foot surgery secondary to deep wound infection of the left foot with osteomyelitis, left foot surgery secondary to bunion, lithotripsy of the right kidney secondary to kidney stones, D&C, carpal tunnel surgery, left hand surgery secondary to cyst, tubal ligation Psychiatric History: No pertinent psych hx 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 history Smoking Status: Never smoker - *Family History Maternal Family History: Family History (Last Reviewed 10/31/19 @ 10:18 by Katrina Flores) Mother Hypertension Grandmother Hypertension Diabetes History Items: Hypertension Paternal Family History: Family History (Last Reviewed 10/31/19 @ 10:18 by Katrina Flores) Mother Hypertension Grandmother Hypertension Diabetes History Items: Unknown Sibling Family History: Family History (Last Reviewed 10/31/19 @ 10:18 by Katrina Flores) Mother Hypertension Grandmother Hypertension Diabetes History Items: Cancer Review of Systems Constitutional: Reports: Anorexia, Chills, Fever, Malaise, Weakness, Weight Change, Fatigue HEENT: Denies: Head Aches, Sinus Congestion, Sinus Drainage Cardiovascular: Denies: Chest Pain, Palpitations Respiratory: Reports: Cough, Shortness of Breath, Shortness of breath at rest, Shortness of breath upon exertion. Denies: Sputum production Gastrointestinal: Reports: Diarrhea, Nausea, Vomiting. Denies: Abdominal Pain, Hematemesis, Hematochezia, Melena Genitourinary: Denies: Dysuria, Frequency, Hematuria, Retention, Urgency Musculoskeletal: Reports: - - Left below-knee amputation. Denies: Joint Pain, Joint Tenderness Skin: Reports: Dryness. Denies: Rash, Wounds Neurological: Denies: Numbness, Tingling, Focal weakness Psychiatric: Reports: Anxiety, Depression. Denies: Homicidal Ideations, Suicidal Ideations Hematologic/ Lymphatic: Denies: Easy Bruising, Easy Bleeding VTE Information - Inpt Only VTE Present on Admission: No VTE Mechan Device Prophylaxis: None VTE Pharm Prophylaxis ordered?: Yes Objective: Physical exam General: Alert, Oriented x3, Cooperative, looks weak HEENT: Atraumatic, PERRLA, EOMI, Normocephalic Oral: No Gingival or Mucosal Lesions/ Ulcerations. Oral mucosa is dry Neck: Supple, No JVD, Negative Carotid Bruits Lungs: Air entry diminished in bilateral lung bases. Mild hypoxia. Mild bilateral crepitations. Cardiovascular: Regular rate, Regular Rhythm, Normal S1, Normal S2, No murmurs Abdomen: Bowel Sounds Present, Soft, Non Tender, Non-Distended : No renal angle tenderness. No suprapubic tenderness. Extremities: No edema, Capillary Refill Less than 3 Seconds Skin: Mild erythema on the face sparing nasolabial crease, lupus rash. Musculoskeletal: Left below-knee amputation. No Tenderness to Palpation of Joints or Extremities Neurological: Cranial nerves II-XII grossly intact, Deep Tendon Reflexes 2+/4 and Symmetrical, Neuro grossly intact Psych/Mental Status: Normal Affect, Appropriate. - Physical Exam Vitals/I&O's: Vital Signs Temp Pulse Resp BP Pulse Ox 98.6 F 96 17 134/83 H 95 02/19/20 13:00 02/19/20 13:00 02/19/20 13:00 02/19/20 13:00 02/19/20 13:00 Oxygen Flow Rate (L/min) 2 Oxygen Delivery Method Nasal Cannula Weight: 212 lb Body Mass Index (BMI) 34.2 Finger Stick Blood Glucose 191 Microbiology Past 72 Hours 02/19/20 11:50 Mucosa - Nose SARS-CoV-2 Antigen (Rapid) - Final SARS-CoV-2 (COVID 19) Laboratory Results 02/19/20 11:40: WBC 6.2, RBC 3.40 L, Hgb 9.6 L, Hct 29.3 L, MCV 86.2, MCH 28.2, MCHC 32.8, RDW Std Deviation 44.3 H, RDW Coeff of Michael 14.2, Plt Count 218, MPV 10.9, Immature Gran % (Auto) 1.400 H, Neut % (Auto) 83.3 H, Lymph % (Auto) 8.5 L , [place] % (Auto) 6.4, Eos % (Auto) 0.2, Baso % (Auto) 0.2, Absolute Neuts (auto) 5.2, Absolute Lymphs (auto) 0.53 L, Nucleated RBC % 0, Differential Comment SCANNED 02/19/20 11:40: Sodium 130 L, Potassium 4.9, Chloride 95 L, Carbon Dioxide 25.0, Anion Gap 10, BUN 65 H, Creatinine 2.61 H, Estim Creat Clear Calc 24.68, Est GFR (MDRD) Af Amer 25 L, Est GFR (MDRD) Non-Af 21 L, BUN/Creatinine Ratio 24.9 H , Glucose 628 H*, Calcium 9.1, Total Bilirubin 0.50, AST 30, ALT 23, Alkaline Phosphatase 78, Troponin I < 0.015, Total Protein 8.1, Albumin 2.6 L, Globulin 5.5 H, Albumin/Globulin Ratio 0.5 L 02/19/20 11:55: Urine Color Yellow, Urine Clarity Clear, Urine pH 5.0, Ur Specific [place] 1.015, Urine Protein 500 H, Urine Glucose (UA) 1000 H, Urine Ketones 15 H, Urine Occult Blood 150 H, Urine Nitrite Negative, Urine Bilirubin Negative, Urine Urobilinogen Normal, Ur Leukocyte Esterase Negative, Urine RBC 0 SEEN, Urine WBC 0 SEEN, Ur Squamous Epith Cells 0-5 SEEN, Amorphous Sediment 1+, Urine Bacteria 1+, Urine Mucus 0 SEEN Assessment/Plan All Active Problems (Last Reviewed 10/31/19 @ 10:18 by Katrina Flores) Osteomyelitis of left foot (Acute) Pneumonia due to COVID-19 virus (Acute) Chest pain (Resolved) Right middle lobe pneumonia (Resolved) Acute kidney injury (Resolved) Iron (Fe) deficiency anemia (Resolved) Cellulitis of left foot (Acute) Lymphadenopathy, inguinal (Resolved) Cellulitis of right foot (Resolved) Infection of right great toe due to methicillin resistant Staphylococcus aureus (MRSA) (Resolved) Osteomyelitis of right foot (Resolved) Iron deficiency (Resolved) Hypomagnesemia (Resolved) MRSA cellulitis of left foot (Resolved) The patient is a 49 year old F with multiple comorbidities as listed above came to ED with cough, shortness of breath, fever and chills, nausea vomiting and diarrhea started on 02/09/2020. 1. Acute Covid pneumonia with suspicion of bacterial infection secondary superinfection with COPD exacerbation and pulmonary hypertension: Patient is being admitted on Covid cohort floor. Rapid Covid antigen is positive. Patient is started on Decadron 6 mg daily. Patient was started on ceftriaxone and Zithromax in the ED and will continue it. Sputum culture, blood cultures x2, urinary antigens ordered. ID consult. It seems patient has symptoms for 11 days therefore probably will not qualify for convalescent plasma. Patient follows Dr. Mcmahon. Incentive spirometry and chest physiotherapy. 2. Diabetes mellitus type 2 with diabetic nephropathy, proteinuria status post left below-knee amputation, diabetic neuropathy: Patient glucose was high. Patient on insulin pump at home but currently does not have it. Started on intermittent Humalog 15 units 3 times daily with meals with sliding insulin coverage before meals and at bedtime. Lantus 15 units subcutaneous twice daily. A1c for tomorrow a.m. in 07/2018 3. Acute kidney injury on CKD stage IV 4. GERD: On PPI and Carafate 5. Dyslipidemia: On statin 6. Hypertension: Blood pressure is currently normal range. 8 history of lupus, HINTON, cirrhosis, anxiety and depression and chronic iron deficiency anemia: Multiple comorbidities complicates the present care and expect difficult and delay recovery VTE prophylaxis: Lovenox 30 mils subcu daily adjusted to patient's creatinine clearance Clinical Impression(s) from Imaging Studies Chest X-Ray 02/19/20 11:33 IMPRESSION: Left lower lobe pneumonia. Electronically Signed: Kelby Cuadra MD at 12:40 EST Tel , Service support , Inpatient E&M: [id number] In Hosp L3
[2020-02-19] MEDS: Ceftriaxone 1 GM/50 ML BAG IV (13:55)
[2020-02-19] MEDS: dexAMETHasone 10 MG/ML Vial 6 MG IV (14:06)
[2020-02-19] MEDS: Lactated Ringers 1,000 ML 999 ML IV ×2 (14:06→16:17)
[2020-02-19] MEDS: 0.9% Normal Saline 1,000 ML 75 ML IV (15:03)
[2020-02-19 15:32] LABS: CPK Total, Creatine Kinase 186 U/L (26-192); LDH 300 U/L (84-246)
[2020-02-19 15:34] LABS: Lactic Acid 1.6 mmol/L (0.4-1.9)
[2020-02-19 15:35] LABS: BNP,B-Type NATRIURETIC PEPTIDE 48.1 pg/mL (0-100)
[2020-02-19] MEDS: Enoxaparin 30 MG/0.3 ML Syringe SC (15:45)
[2020-02-19 16:14] LABS: Fibrinogen 882 mg/dl (203-444)
[2020-02-19 16:15] LABS: International Normalized Ratio 1.2
[2020-02-19] MEDS: Insulin Lispro 100 UNIT/ML INSULN.PEN 20 UNIT SC (16:15)
[2020-02-19 16:28] LABS: D-Dimer Quantitative (DVT/PE) 1.42 FEU/ug/m (0.27-0.49)
--- NOTE | 2020-02-19 16:49 | VDLE_ITS ---
Reason For Study: SWELLING RIGHT LEFT GSV is normal. GSV is normal. CFV, FV, POP V ARE COMPRESSIBLE. CFV, FV & POP V ARE COMPRESSIBLE. T/P Trunk is compressible. T/P Trunk is compressible. PTV is compressible. RT PerV is compressible. Procedure This is a venous duplex using B-mode, color flow and spectral Doppler. Exam performed portable in patient room. The exam was abbreviated due to the COVID 19 protocol. LT BKA. A preliminary report was called and/or faxed to [facility]. Interpretation Summary No evidence for acute deep venous thrombosis bilateral lower extremities with patent and compressible bilateral great saphenous veins. Evidence of left below-knee amputation Abbreviated COVID-19 protocol utilized Ordering Physician: Chiki Morris Referring Physician: Johann Jimenez Performed By: Annel Gray, MEGHAN, RVT
[2020-02-19 17:00] LABS: Bedside Glucose > 500 mg/dL (70-110)
[2020-02-19 17:00] LABS: Bedside Glucose > 500 mg/dL (70-110)
[2020-02-19] MEDS: Insulin Lispro 100 UNIT/ML INSULN.PEN 40 UNIT SC ×3 (17:17→21:45)
[2020-02-19 19:46] LABS: Bedside Glucose > 500 mg/dL (70-110)
[2020-02-19] MEDS: Acetaminophen 325 MG Tablet 650 MG PO (20:45)
[2020-02-19] MEDS: traZODone 100 MG Tablet 150 MG PO (21:03)
[2020-02-19] MEDS: MELATONIN 3 MG TABLET PO (21:03)
[2020-02-19] MEDS: Gabapentin 800 MG Tablet PO (21:04)
[2020-02-19] MEDS: Metoclopramide 10 MG Tablet PO (21:04)
[2020-02-19] MEDS: DULoxetine Hcl 60 MG Capsule PO (21:04)
[2020-02-19 21:11] LABS: Bedside Glucose 465 mg/dL (70-110)
[2020-02-19] MEDS: Sucralfate 1 GM Tablet PO (21:11)
[2020-02-19] MEDS: Pantoprazole Sodium 40 MG Tablet PO (21:11)
[2020-02-20 00:06] LABS: Bedside Glucose 353 mg/dL (70-110)
[2020-02-20 02:21] VITALS: BP 117/74; PULSE 67; RESP 16; TEMP 36.3; O2SAT 98
[2020-02-20 03:16] LABS: Bedside Glucose 312 mg/dL (70-110)
[2020-02-20 05:00] LABS: Bedside Glucose 211 mg/dL (70-110)
[2020-02-20 06:17] LABS: Absolute Lymphocyte Count 0.56 X10^3/uL (0.83-4.51); Absolute Neutrophil Count 3.2 X10^3/uL (2.0-7.7); Basophil# 0.01 X10^3/uL; Basophil% 0.2 % (0-1); Hematocrit 26.6 % (37-47); Hemoglobin 8.6 g/dL (12.0-15.0); Lymphocyte # 0.56 X10^3/ul (4.0); Lymphocyte % 13.7 % (19-41); Mean Corp Hgb Conc 32.3 g/dL (32-36); Mean Corpuscular Hgb 28.2 pg (27.0-32.0); Mean Corpuscular Volume 87.2 fL (81-99); Mean Platelet Vol. 11.4 fl (6.2-12.0); Monocyte# 0.22 X10^3/uL; Monocyte% 5.4 % (0-10); NRBC Flagged by Analyzer 0 % (0-5); Neutrophil # 3.21 X10^3/uL (2.7-7.7); Neutrophil % 78.3 % (47-70); POSITIVE DIFFERENTIAL YES; Platelet Count 210 K/mm3 (150-450); RBC Distribution Width CV 14.3 % (11.6-14.6); RBC Distribution Width SD 45.6 fl (35.1-43.9); Red Blood Count 3.05 M/mm3 (4.2-5.4); White Blood Count 4.1 K/mm3 (4.4-11.0)
[2020-02-20 06:20] LABS: Differential Indicated SCAN CRITERIA MET
[2020-02-20 06:23] VITALS: BP 163/91; PULSE 74; RESP 17; TEMP 36.7; O2SAT 92
[2020-02-20] MEDS: Insulin Lispro 100 UNIT/ML INSULN.PEN SC ×4 (06:38→20:54)
[2020-02-20] MEDS: Insulin Lispro 100 UNIT/ML INSULN.PEN 15 UNIT SC ×3 (06:38→15:46)
[2020-02-20 06:45] LABS: Bedside Glucose 213 mg/dL (70-110)
[2020-02-20 06:50] LABS: ALB/GLOB Ratio 0.6 RATIO (0.9-2.4); AST(SGOT) 45 U/L (15-37); Alanine Aminotransfer ALT/SGPT 28 U/L (13-56); Albumin, Serum 2.4 g/dL (3.2-5.0); Alkaline Phosphatase 71 U/L (45-117); Anion Gap 6 (5-15); BUN 71 mg/dL (7-18); Calcium,Total 8.8 mg/dL (8.5-10.1); Chloride 103 mmol/L (98-107); Creatinine, Serum 2.22 mg/dL (0.55-1.02); EST Glomerular Filtration Rate 25 mL/min (>60); Est Glom Filt Rate - Afr Amer 30 mL/min (>60); Estimated Creatinine Clearance 29.01 ml/min; Globulin 4.2 g/dL (2.2-4.2); Glucose 226 mg/dL (74-106); Magnesium 2.6 mg/dL (1.6-2.6); Potassium 4.6 mmol/L (3.5-5.1); Protein, Total 6.6 g/dL (6.4-8.2); Sodium Level 137 mmol/L (136-145)
[2020-02-20 08:39] VITALS: BP 171/90; PULSE 86; RESP 18; TEMP 36.6; O2SAT 93
[2020-02-20] MEDS: Enoxaparin 30 MG/0.3 ML Syringe SC (08:48)
[2020-02-20] MEDS: Ferrous Sulfate 325 MG Tablet PO ×3 (08:50→15:46)
[2020-02-20] MEDS: DULoxetine Hcl 30 MG Capsule PO (08:50)
[2020-02-20] MEDS: Gabapentin 800 MG Tablet PO ×3 (08:50→15:46)
[2020-02-20] MEDS: Pantoprazole Sodium 40 MG Tablet PO ×2 (08:50→20:54)
[2020-02-20] MEDS: Metoclopramide 10 MG Tablet PO ×2 (08:51→20:54)
[2020-02-20] MEDS: dexAMETHasone 10 MG/ML Vial 6 MG IV (08:51)
[2020-02-20] MEDS: 0.9% Saline Lock 10 ML Syringe IV (08:51)
[2020-02-20] MEDS: Loratadine 10 MG Tablet PO (08:51)
[2020-02-20] MEDS: oxyCODONE 5 MG Tablet PO ×2 (08:53→20:52)
[2020-02-20] MEDS: Ceftriaxone 1 GM/50 ML BAG IV (08:54)
--- NOTE | 2020-02-20 11:59 | PCM.PN.HOSP ---
Patient Problems: Active and Suspected Problems (Last Reviewed 10/31/19 @ 10:18 by Katrina Flores) Osteomyelitis of left foot (Acute) Pneumonia due to COVID-19 virus (Acute) Cellulitis of left foot (Acute) Subjective: Patient seen and examined. She was admitted with a complaint of cough and shortness of breath as well as fever and chills started on 02/09/2020. She tested positive for COVID-19. She is being managed for acute hypoxic respiratory failure due to COVID-19 infection. She is on ceftriaxone and azithromycin on account of concern for superimposed bacterial pneumonia. She still complains of shortness of breath. He is however only on 2 L of oxygen. She is coughing but bringing up scanty sputum. Review of symptoms otherwise negative. Blood pressure elevated at 171/90 this morning. Vitals/I&O's: Vital Signs Temp Pulse Resp BP Pulse Ox 97.8 F 86 18 171/90 H 93 02/20/20 08:39 02/20/20 08:39 02/20/20 08:39 02/20/20 08:39 02/20/20 08:39 Oxygen Flow Rate (L/min) 2 Oxygen Delivery Method Room Air Weight: 192 lb 10.944 oz Body Mass Index (BMI) 30.3 Finger Stick Blood Glucose 191 Intake and Output for Last 24 Hours 02/18/20 02/19/20 02/20/20 23:59 23:59 23:59 Intake Total 2898.60 / 2898.60 988.75 / 988.75 Output Total 500 / 500 Balance 2398.60 / 2398.60 988.75 / 988.75 General: Alert, Oriented x3, Cooperative, Lethargic, - - obese HEENT: Atraumatic, PERRLA, EOMI, Normocephalic Oral: Dry Mucosa Neck: Supple, No JVD, Negative Carotid Bruits Lungs: - - diminished breath sounds bibasally, no wheezes or crackles. on 2L of oxygen by nasal canula Cardiovascular: Regular rate, Regular Rhythm, Normal S1, Normal S2, No murmurs Abdomen: Bowel Sounds Present, Soft, Non Tender, Non-Distended, No Hepato-splenomegaly Extremities: No clubbing, No cyanosis, No edema, Capillary Refill Less than 3 Seconds Skin: No rashes, No breakdown Musculoskeletal: No Tenderness to Palpation of Joints or Extremities Lymphatic: No Cervical, Supraclavicular, or Inguinal Adenopathy Neurological: Cranial nerves II-XII grossly intact, Neuro grossly intact, Motor Exam 5/5 strength throughout Psych/Mental Status: Normal Affect, Appropriate, Alert and oriented to time, place, person, mood and affect Microbiology Past 72 Hours 02/19/20 11:55 Urine, Clean Catch Legionella Antigen - Final 02/19/20 11:55 Urine, Clean Catch Streptococcus pneumoniae Antigen (M - Final 02/19/20 11:50 Mucosa - Nose SARS-CoV-2 Antigen (Rapid) - Final SARS-CoV-2 (COVID 19) Laboratory Results 02/19/20 11:40: WBC 6.2, RBC 3.40 L, Hgb 9.6 L, Hct 29.3 L, MCV 86.2, MCH 28.2, MCHC 32.8, RDW Std Deviation 44.3 H, RDW Coeff of Michael 14.2, Plt Count 218, MPV 10.9, Immature Gran % (Auto) 1.400 H, Neut % (Auto) 83.3 H, Lymph % (Auto) 8.5 L, [place] % (Auto) 6.4, Eos % (Auto) 0.2, Baso % (Auto) 0.2, Absolute Neuts (auto) 5.2, Absolute Lymphs (auto) 0.53 L, Nucleated RBC % 0, Differential Comment SCANNED 02/19/20 11:40: Sodium 130 L, Potassium 4.9, Chloride 95 L, Carbon Dioxide 25.0, Anion Gap 10, BUN 65 H, Creatinine 2.61 H, Estim Creat Clear Calc 24.68, Est GFR (MDRD) Af Amer 25 L, Est GFR (MDRD) Non-Af 21 L, BUN/Creatinine Ratio 24.9 H, Glucose 628 H*, Calcium 9.1, Total Bilirubin 0.50, AST 30, ALT 23, Alkaline Phosphatase 78, Troponin I < 0.015, Total Protein 8.1, Albumin 2.6 L, Globulin 5.5 H, Albumin/Globulin Ratio 0.5 L 02/19/20 11:40: Lactate Dehydrogenase 300 H, Total Creatine Kinase 186, C-React Prot Ext Range 114.00 H 02/19/20 11:40: B-Natriuretic Peptide 48.1 02/19/20 11:40: PT 15.0 H, INR 1.2, Fibrinogen 882 H, D-Dimer Quant (PE/DVT) 1.42 H* 02/19/20 11:40: Lactic Acid 1.6 02/19/20 11:40: Procalcitonin 0.50 H 02/19/20 11:55: Urine Color Yellow, Urine Clarity Clear, Urine pH 5.0, Ur Specific [place]on 1.015, Urine Protein 500 H, Urine Glucose (UA) 1000 H, Urine Ketones 15 H, Urine Occult Blood 150 H, Urine Nitrite Negative, Urine Bilirubin Negative, Urine Urobilinogen Normal, Ur Leukocyte Esterase Negative, Urine RBC 0 SEEN, Urine WBC 0 SEEN, Ur Squamous Epith Cells 0-5 SEEN, Amorphous Sediment 1+, Urine Bacteria 1+, Urine Mucus 0 SEEN 02/19/20 15:43: POC Glucose > 500 H* 02/19/20 16:54: POC Glucose > 500 H* 02/19/20 19:43: POC Glucose > 500 H* 02/19/20 21:00: POC Glucose 465 H* 02/20/20 00:03: POC Glucose 353 H 02/20/20 01:52: POC Glucose 312 H 02/20/20 04:55: POC Glucose 211 H 02/20/20 05:40: WBC 4.1 L, RBC 3.05 L, Hgb 8.6 L, Hct 26.6 L, MCV 87.2, MCH 28.2, MCHC 32.3, RDW Std Deviation 45.6 H, RDW Coeff of Michael 14.3, Plt Count 210, MPV 11.4, Immature Gran % (Auto) 2.400 H, Neut % (Auto) 78.3 H, Lymph % (Auto) 13.7 L, [place] % (Auto) 5.4, Eos % (Auto) 0.0, Baso % (Auto) 0.2, Absolute Neuts (auto) 3.2, Absolute Lymphs (auto) 0.56 L, Nucleated RBC % 0, Diff Path Review June02/20/20 05:40: Sodium 137, Potassium 4.6, Chloride 103, Carbon Dioxide 28.0, Anion Gap 6, BUN 71 H, Creatinine 2.22 H, Estim Creat Clear Calc 29.01, Est GFR (MDRD) Af Amer 30 L, Est GFR (MDRD) Non-Af 25 L, BUN/Creatinine Ratio 32.0 H, Glucose 226 H, Calcium 8.8, Magnesium 2.6, Total Bilirubin 0.30, AST 45 H, ALT 28, Alkaline Phosphatase 71, Total Protein 6.6, Albumin 2.4 L, Globulin 4.2, Albumin/Globulin Ratio 0.6 L 02/20/20 06:37: POC Glucose 213 H Diagnostic Data Chest X-Ray 02/19/20 11:33 IMPRESSION: Left lower lobe pneumonia. Electronically Signed: Kelby Cuadra MD at 12:40 EST Tel , Service support , Current Medications Acetaminophen (Acetaminophen 325 Mg Tablet) 650 mg PO Q6H PRN PRN PRN Reason: Pain Score 1-10/Temp > 100.7 F Last Admin: 02/19/20 20:45 Dose: 650 mg Documented by: Al Hydroxide/Mg Hydroxide (Mag Hydrox/Al Hydrox/Simeth 30 Ml Udc) 30 ml PO Q6H PRN PRN PRN Reason: Gastric Burning Albuterol Sulfate (Albuterol 2.5 Mg/3 Ml Vial.Neb.) 2.5 mg INHALATION Q2H PRN PRN PRN Reason: Shortness of Breath/Wheezing Dexamethasone Sodium Phosphate (Dexamethasone 10 Mg/Ml Vial) 6 mg IV DAILY [facility] Last Admin: 02/20/20 08:51 Dose: 6 mg Documented by: Dextrose (Dextrose 50%-Water 25 Gm/50 Ml Disp.Syrin) 0 gm IV X1 PRN; Protocol PRN Reason: Hypoglycemia Duloxetine HCl (Duloxetine Hcl 60 Mg Capsule) 60 mg PO QHS [facility] Last Admin: 02/19/20 21:04 Dose: 60 mg Documented by: Duloxetine HCl (Duloxetine Hcl 30 Mg Capsule) 30 mg PO DAILY [facility] Last Admin: 02/20/20 08:50 Dose: 30 mg Documented by: Enoxaparin Sodium (Enoxaparin 30 Mg/0.3 Ml Syringe) 30 mg SC DAILY [facility] Last Admin: 02/20/20 08:48 Dose: 30 mg Documented by: Ferrous Sulfate (Ferrous Sulfate 325 Mg Tablet) 325 mg PO TIDCM [facility] Last Admin: 02/20/20 08:50 Dose: 325 mg Documented by: Gabapentin (Gabapentin 800 Mg Tablet) 800 mg PO TIDCM [facility] Last Admin: 02/20/20 08:50 Dose: 800 mg Documented by: Glucagon (Glucagon 1 Mg/Ml Syringe) 1 mg IM .X1 PRN PRN Reason: Hypoglycemia Sodium Chloride () 250 mls @ 15 mls/hr IV .[id number] PRN PRN Reason: Additional IVPB Infusion Ceftriaxone Sodium (Rocephin) 1 gm in 50 mls @ 100 mls/hr IV DAILY [facility] Last Infusion: 02/20/20 09:30 Dose: Infused Documented by: Remdesivir 100 mg/ Sodium (Chloride) 250 mls @ 125 mls/hr IV DAILY [facility] Stop: 02/23/20 11:59 Last Admin: 02/20/20 09:40 Dose: 125 mls/hr Documented by: Sodium Chloride () 250 mls @ 15 mls/hr IV .[id number] PRN PRN Reason: Saline Flush Sodium Chloride () 250 mls @ 15 mls/hr IV .[id number] PRN PRN Reason: Additional IVPB Infusion Insulin Glargine (Insulin Glargine 100 Units/Ml Pen) 30 units SC BID [facility] Last Admin: 02/19/20 21:46 Dose: 30 units Documented by: Insulin Human Lispro (Insulin Lispro 100 Unit/Ml Insuln.Pen) 15 unit SC TIDAC [facility] Last Admin: 02/20/20 06:38 Dose: 15 units Documented by: Insulin Human Lispro (Insulin Lispro 100 Unit/Ml Insuln.Pen) 0 unit SC ACHS [facility]; Protocol Last Admin: 02/20/20 06:38 Dose: 4 units Documented by: Loratadine (Loratadine 10 Mg Tablet) 10 mg PO DAILY [facility] Last Admin: 02/20/20 08:51 Dose: 10 mg Documented by: Melatonin (Melatonin 3 Mg Tablet) 3 mg PO QHS PRN PRN PRN Reason: INSOMNIA Last Admin: 02/19/20 21:03 Dose: 3 mg Documented by: Metoclopramide HCl (Metoclopramide 10 Mg Tablet) 10 mg PO BID [facility] Last Admin: 02/20/20 08:51 Dose: 10 mg Documented by: Morphine Sulfate (Morphine 2 Mg/Ml Syringe) 2 mg IV Q3H PRN PRN PRN Reason: Pain Score 6-10 Non-Formulary Medication (Insulin U-500) 2 units SC .[facility] Oxycodone HCl (Oxycodone 5 Mg Tablet) 5 mg PO Q4H PRN PRN PRN Reason: Pain Score 4-5 Last Admin: 02/20/20 08:53 Dose: 5 mg Documented by: Pantoprazole Sodium (Pantoprazole Sodium 40 Mg Tablet) 40 mg PO BID [facility] Last Admin: 02/20/20 08:50 Dose: 40 mg Documented by: Prochlorperazine Edisylate (Prochlorperazine 10 Mg/2 Ml Vial) 5 mg IV Q4H PRN PRN PRN Reason: Breakthrough nausea/vomiting Rosuvastatin Calcium (Rosuvastatin Calcium 10 Mg Tablet) 20 mg PO QHS [facility] Last Admin: 02/19/20 21:04 Dose: 20 mg Documented by: Senna/Docusate Sodium (Senna/Docusate Sodium 1 Tablet) 2 tablet PO BID PRN PRN PRN Reason: Constipation Sodium Chloride (0.9% Saline Lock 10 Ml Syringe) 10 - 40 ml IV UD PRN PRN Reason: SALINE FLUSH Last Admin: 02/20/20 08:51 Dose: 10 ml Documented by: Sucralfate (Sucralfate 1 Gm Tablet) 1 gm PO QHS [facility] Last Admin: 02/19/20 21:11 Dose: 1 gm Documented by: Tramadol HCl (Tramadol 50 Mg Tablet) 50 mg PO TID PRN PRN PRN Reason: Pain Score 1-10 Trazodone HCl ([facility]one 100 Mg Tablet) [facility] Last Admin: 02/19/20 21:03 Dose: 150 mg Documented by: STROKE Vital Signs/Narrative: Vital Signs Temp Pulse Resp BP Pulse Ox 02/20/20 08:39 97.8 F 86 18 171/90 H 93 Medical Necessity - Tobacco Use Smoking Status: Never smoker Assessment/Plan All Active Problems (Last Reviewed 10/31/19 @ 10:18 by Katrina Flores) Osteomyelitis of left foot (Acute) Pneumonia due to COVID-19 virus (Acute) Chest pain (Resolved) Right middle lobe pneumonia (Resolved) Acute kidney injury (Resolved) Iron (Fe) deficiency anemia (Resolved) Cellulitis of left foot (Acute) Lymphadenopathy, inguinal (Resolved) Cellulitis of right foot (Resolved) Infection of right great toe due to methicillin resistant Staphylococcus aureus (MRSA) (Resolved) Osteomyelitis of right foot (Resolved) Iron deficiency (Resolved) Hypomagnesemia (Resolved) MRSA cellulitis of left foot (Resolved) #Acute hypoxic respiratory insufficiency due to COVID 19 pneumonia now on 2L of oxygen titrate oxygen to maintain sats >90% breathing treatment with bronchodilators # COVID 19 pneumonia with superimposed bacterial pneumonia On IV ceftriaxone and azithromycin. Also on Decadron and remdesivir. ID consulted. Titrate oxygen to maintain saturation above 90% as above. #COPD exacerbation on steroids. 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 Insulin sliding scale. Accu-Cheks AC at bedtime. #ZACHERY on CKD IV Creatinine was 2.61 on admission is now down to 2.22 with IV fluid hydration. Baseline creatinine is around 1.6. We will continue gentle hydration with IV fluids and monitor. #GERD On PPI #Hyperlipidemia; on statin #hypertension: Enalapril on hold on account of ZACHERY on CKD. IV hydralazine as needed. Start on amlodipine 10 mg daily. #History of lupus: stable #History of nonalcoholic steatohepatitis and cirrhosis stable #Anxiety and depression On trazodone and Cymbalta. DVT prophylaxis: Lovenox Inpatient E&M: [id number] [facility] Hosp L3
[2020-02-20 12:26] LABS: Bedside Glucose 228 mg/dL (70-110)
--- NOTE | 2020-02-20 12:38 | PCM.NTREPORT ---
Nutrition Therapy Report - History Nutrition Services has been consulted to:: Manage nutrient details of diet order Current diet / nutrition support order:: 1800 mirta Consistent CHO - Anthropometric Measurements Height:: 5 ft 6 in Weight:: 87.4 kg Body Mass Index (BMI):: 31.1 - Relevant Labs Relevant Labs:: WBC 4.1 K/mm3 (4.4-11.0) L 02/20/20 05:40 RBC 3.05 M/mm3 (4.2-5.4) L 02/20/20 05:40 Hgb 8.6 g/dL (12.0-15.0) L 02/20/20 05:40 Hct 26.6 % (37-47) L 02/20/20 05:40 RDW Std Deviation 45.6 fl (35.1-43.9) H 02/20/20 05:40 Immature Gran % (Auto) 2.400 % (0.0-0.9) H 02/20/20 05:40 Neut % (Auto) 78.3 % (47-70) H 02/20/20 05:40 Lymph % (Auto) 13.7 % (19-41) L 02/20/20 05:40 Absolute Lymphs (auto) 0.56 X10^3/uL (0.83-4.51) L 02/20/20 05:40 PT 15.0 SECONDS (11.7-14.9) H 02/19/20 11:40 Fibrinogen 882 mg/dl (203-444) H 02/19/20 11:40 D-Dimer Quant (PE/DVT) 1.42 FEU/ug/m (0.27-0.49) H* 02/19/20 11:40 Sodium 130 mmol/L (136-145) L 02/19/20 11:40 Chloride 95 mmol/L (98-107) L 02/19/20 11:40 BUN 71 mg/dL (7-18) H 02/20/20 05:40 Creatinine 2.22 mg/dL (0.55-1.02) H 02/20/20 05:40 Est GFR (MDRD) Af Amer 30 mL/min (>60) L 02/20/20 05:40 Est GFR (MDRD) Non-Af 25 mL/min (>60) L 02/20/20 05:40 BUN/Creatinine Ratio 32.0 RATIO (10-20) H 02/20/20 05:40 Glucose 226 mg/dL (74-106) H 02/20/20 05:40 AST 45 U/L (15-37) H 02/20/20 05:40 Lactate Dehydrogenase 300 U/L (84-246) H 02/19/20 11:40 C-React Prot Ext Range 114.00 mg/L (0.0-3.0) H 02/19/20 11:40 Albumin 2.4 g/dL (3.2-5.0) L 02/20/20 05:40 Globulin 5.5 g/dL (2.2-4.2) H 02/19/20 11:40 Albumin/Globulin Ratio 0.6 RATIO (0.9-2.4) L 02/20/20 05:40 Procalcitonin 0.50 ng/mL (0.00-0.09) H 02/19/20 11:40 - Assessment Food / Nutrition-Related History:: Spoke w/ pt via phone d/t pt in covid isolation. 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 Reports that she has an insulin pump and checks bld gluc 3-4 x/day -readings before covid ~ 200s, now in 500-600s. 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 On steroid which may further increase bld gluc. Pt agreeable to ONS w/ meals for increased nutrition if consumed. 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 Evidence of Malnutrition Exists:: Yes Severe PCM:: Acute Illness - Nutrition Intervention Nutrition Prescription:: [id number] mirta / 90-100 gm pro /day - Food / Nutrient Delivery Interventions Summary of nutrition intervention:: Will order 8 oz glucerna shake w/ meals for increased nutrition if consumed d/t s/s of malnutrition waiter/waitress captain. [ End ] Nutrition education provided?: No - MNT Monitoring Further MNT monitoring and evaluation required?: Yes MNT Follow-up in:: 3-5 days - please call RD/LD if questions/concerns x [phone]
[2020-02-20 12:40] VITALS: BMI 31.1
--- NOTE | 2020-02-20 12:50 | CASEMGMT ---
RN JEREMY called patient in room for initial transition planning/care coordination assessment. RN CM introduced self and role at [facility]. Patient is alert and oriented. Patient willing to participate in assessment and is able to answer all questions appropriately. Care providers, pharmacy, and demographics verified. Patient wishes to discharge home, denies need for home health at this time. Patient states she has no further needs or concerns at this time. CM to follow for discharge planning needs that may arise. PCP: Tony Specialists: Mile, felt hooker; Lisandro test analyst Preferred Pharmacy: [facility] Insurance: [employer], [facility] Prescription Benefit: yes Living Will/HPOA: yes, Alek Lux LNOK: Living Arrangements: Patient lives with and daughter in a 2 story home with bed and bath on the first floor. Patient states she is independent at home. Ramp to enter the home. Transportation: self/ DME/HHC: Patient state she has wheelchair, cpap, nebulizer, and oxygen at with portable tanks through [facility] [place]. Patient had had previous HHC with [facility] HHC Disposition Plan: Patient to discharge home with family support and follow-up plans in place. Cheryl BETTS, RN, CM
[2020-02-20 13:36] LABS: Pathologist Review Reviewed
[2020-02-20 14:13] VITALS: BP 154/87; PULSE 85; RESP 18; TEMP 36.7; O2SAT 94
--- NOTE | 2020-02-20 15:12 | CON.PCM_ITS ---
Problem List (1) Pneumonia due to COVID-19 virus Status: Acute Reason for Consult: covid Consulted by: Dr. Holly History of Present Illness: The patient is a 49 year old F with COPD, presented 1/3 with sx since 02/07 with cough, congestion, fever, weakness, fatigue, change in taste, diarrhea, muscle aches. got sick a few days prior. Daughter at home has not been sick, is in quarantine. Came to ED, put on O2, dex, azithro/ceftriaxone, remdesivir. Feeling not much better today. Full ROS performed and neg except as noted above. - Medical History Past Medical History (Chronic Problems): Chronic Problems (Last Reviewed 10/31/19 @ 10:18 by Katrina Flores) COPD (chronic obstructive pulmonary disease) (Chronic) GERD (gastroesophageal reflux disease) (Chronic) Diastolic dysfunction (Chronic) Abnormal CT scan, liver (Chronic) SLE (systemic lupus erythematosus) (Chronic) Pulmonary hypertension (Chronic) Asthma (Chronic) Diabetes mellitus (Chronic) insulin resistance on U500 History of MRSA infection (Chronic) Cirrhosis of liver (Chronic) [place] Anemia of chronic disease (Chronic) Status post transmetatarsal amputation of right foot (Chronic) 04/11/[address] Lindsay Depression (Chronic) Peripheral neuropathy (Chronic) Allergies/Adverse Reactions: Allergies atorvastatin [From Lipitor] Adverse Reaction (Severe, Verified 02/19/20 11:14) Vomiting oxycodone HCl [From Percocet] Adverse Reaction (Severe, Verified 02/19/20 11:14) Vomiting Home Medications: Ambulatory Orders Medication Instructions Recorded Duloxetine Hcl [Cymbalta] 60 mg PO QHS 11/26/12 Enalapril Maleate [Vasotec] 2.5 mg PO BID 11/26/12 Ondansetron [Zofran] 8 mg PO Q8H PRN 12/29/12 Esomeprazole Mag Trihydrate 40 mg PO BID 05/24/15 [Nexium] Budesonide Inhaler 180 mcg 2 puff INHALATION DAILY 10/02/15 [Pulmicort Inhaler 180 mcg] Insulin U-500 [Humulin R U-500 1.2 units SC CONT 10/02/15 ([facility])] traZODone [Desyrel] 150 mg PO QHS 12/27/15 Ergocalciferol [Vitamin D] 50,000 unit PO MOWEFR 01/24/16 Ferrous Sulfate 325 mg PO TIDCM 01/24/16 traMADol [Ultram] 50 mg PO TID PRN 01/24/16 Albuterol Aerosols [Ventolin 2.5 mg INHALATION Q4H PRN PRN 06/09/16 Aerosols] Sucralfate 1 gm PO QHS 09/01/16 Gabapentin [Neurontin] 800 mg PO TID 05/19/17 rosuvastatin 10 mg tablet 20 mg PO QHS tab 06/03/17 Duloxetine Hcl [Cymbalta] 30 mg PO DAILY 07/30/18 Insulin Aspart [Novolog Flexpen] See Protocol SC ACHS 07/30/18 Loratadine 10 mg PO DAILY 07/30/18 Magnesium Oxide [Mag-Ox 400] 400 mg PO DAILYCM 07/30/18 Metoclopramide [Reglan] 10 mg PO BID 07/30/18 - Social History SMOKING STATUS:: Never smoker Vital Signs Temp Pulse Resp BP Pulse Ox 98.1 F 85 18 154/87 H 94 02/20/20 14:13 02/20/20 14:13 02/20/20 14:13 02/20/20 14:13 02/20/20 14:13 Oxygen Flow Rate (L/min) 2 Oxygen Delivery Method Nasal Cannula Weight: 87.4 kg Body Mass Index (BMI) 31.1 Finger Stick Blood Glucose 191 Microbiology Past 72 Hours 02/19/20 11:55 Legionella Antigen - Final Urine, Clean Catch Streptococcus pneumoniae Antigen (M - Final 02/19/20 11:50 SARS-CoV-2 Antigen (Rapid) - Final Mucosa - Nose SARS-CoV-2 (COVID 19) Laboratory Tests Past 24 Hrs 02/19/20 02/19/20 02/19/20 11:40 11:40 11:40 WBC RBC Hgb Hct MCV MCH MCHC RDW Std Deviation RDW Coeff of Michael Plt Count MPV Immature Gran % (Auto) Neut % (Auto) Lymph % (Auto) [place] % (Auto) Eos % (Auto) Baso % (Auto) Absolute Neuts (auto) Absolute Lymphs (auto) Nucleated RBC % Diff Path Review PT 15.0 H INR 1.2 Fibrinogen 882 H D-Dimer Quant (PE/DVT) 1.42 H* Sodium Potassium Chloride Carbon Dioxide Anion Gap BUN Creatinine Estim Creat Clear Calc Est GFR (MDRD) Af Amer Est GFR (MDRD) Non-Af BUN/Creatinine Ratio Glucose Lactic Acid Calcium Magnesium Total Bilirubin AST ALT Alkaline Phosphatase Lactate Dehydrogenase 300 H Total Creatine Kinase 186 C-React Prot Ext Range 114.00 H B-Natriuretic Peptide 48.1 Total Protein Albumin Globulin Albumin/Globulin Ratio Procalcitonin 02/19/20 02/19/20 02/20/20 11:40 11:40 05:40 WBC 4.1 L RBC 3.05 L Hgb 8.6 L Hct 26.6 L MCV 87.2 MCH 28.2 MCHC 32.3 RDW Std Deviation 45.6 H RDW Coeff of Michael 14.3 Plt Count 210 MPV 11.4 Immature Gran % (Auto) 2.400 H Neut % (Auto) 78.3 H Lymph % (Auto) 13.7 L [place]verse % (Auto) 5.4 Eos % (Auto) 0.0 Baso % (Auto) 0.2 Absolute Neuts (auto) 3.2 Absolute Lymphs (auto) 0.56 L Nucleated RBC % 0 Diff Path Review Reviewed PT INR Fibrinogen D-Dimer Quant (PE/DVT) Sodium Potassium Chloride Carbon Dioxide Anion Gap BUN Creatinine Estim Creat Clear Calc Est GFR (MDRD) Af Amer Est GFR (MDRD) Non-Af BUN/Creatinine Ratio Glucose Lactic Acid 1.6 Calcium Magnesium Total Bilirubin AST ALT Alkaline Phosphatase Lactate Dehydrogenase Total Creatine Kinase C-React Prot Ext Range B-Natriuretic Peptide Total Protein Albumin Globulin Albumin/Globulin Ratio Procalcitonin 0.50 H 02/20/20 05:40 WBC RBC Hgb Hct MCV MCH MCHC RDW Std Deviation RDW Coeff of Michael Plt Count MPV Immature Gran % (Auto) Neut % (Auto) Lymph % (Auto) [place] % (Auto) Eos % (Auto) Baso % (Auto) Absolute Neuts (auto) Absolute Lymphs (auto) Nucleated RBC % Diff Path Review PT INR Fibrinogen D-Dimer Quant (PE/DVT) Sodium 137 Potassium 4.6 Chloride 103 Carbon Dioxide 28.0 Anion Gap 6 BUN 71 H Creatinine 2.22 H Estim Creat Clear Calc 29.01 Est GFR (MDRD) Af Amer 30 L Est GFR (MDRD) Non-Af 25 L BUN/Creatinine Ratio 32.0 H Glucose 226 H Lactic Acid Calcium 8.8 Magnesium 2.6 Total Bilirubin 0.30 AST 45 H ALT 28 Alkaline Phosphatase 71 Lactate Dehydrogenase Total Creatine Kinase C-React Prot Ext Range B-Natriuretic Peptide Total Protein 6.6 Albumin 2.4 L Globulin 4.2 Albumin/Globulin Ratio 0.6 L Procalcitonin - Other Studies Radiology: [] reviewed Other Studies: [] Route of nutrition/ use of supplements: [] Nutritional Intake: [] IV Site: [] Huerta Catheter: [] - Physical Exam General: Alert, Oriented x3, Cooperative, No apparent distress HEENT: Atraumatic, PERRLA, EOMI Neck: Supple, No Nodes Lungs: Diminished Cardiovascular: Regular rate, Regular Rhythm Abdomen: Soft, Non Tender, Non-Distended Extremities: No edema Skin: No rashes IV Site: Peripheral, without redness Musculoskeletal: No Tenderness to Palpation of Joints or Extremities Neurological: Cranial nerves II-XII grossly intact - Assessment/Plan Antibiotics: [] Assessment/Plan: [] Active and Suspected Problems (Last Reviewed 10/31/19 @ 10:18 by Katrina Flores) Osteomyelitis of left foot (Acute) Pneumonia due to COVID-19 virus (Acute) Cellulitis of left foot (Acute) covid with hypoxia - will stop ceftriaxone, continue remdesivir and dex. On lovenox daily 30mg. Consider increasing dose due to d-dimer 1.4. No sputum, UAg neg. Low suspicion for bacterial infection. Sx started 02/08/20. Thank you, will follow
[2020-02-20 16:11] LABS: Bedside Glucose 284 mg/dL (70-110)
[2020-02-20] MEDS: hydrOXYzine PAM 25 MG Capsule 50 MG PO (18:51)
[2020-02-20 20:00] VITALS: O2SAT 95
[2020-02-20 20:47] VITALS: BP 132/76; PULSE 77; RESP 16; TEMP 36.4; O2SAT 95
[2020-02-20] MEDS: traZODone 100 MG Tablet 150 MG PO (20:53)
[2020-02-20] MEDS: DULoxetine Hcl 60 MG Capsule PO (20:54)
[2020-02-20] MEDS: Sucralfate 1 GM Tablet PO (20:57)
[2020-02-20 22:25] LABS: Bedside Glucose 221 mg/dL (70-110)
[2020-02-21 02:47] VITALS: BP 130/82; PULSE 80; RESP 16; TEMP 36.6; O2SAT 97
[2020-02-21 03:00] VITALS: O2SAT 97
[2020-02-21 05:31] LABS: Hematocrit 28.4 % (37-47); Hemoglobin 8.9 g/dL (12.0-15.0); Mean Corp Hgb Conc 31.3 g/dL (32-36); Mean Corpuscular Hgb 27.1 pg (27.0-32.0); Mean Corpuscular Volume 86.3 fL (81-99); Mean Platelet Vol. 11.1 fl (6.2-12.0); Platelet Count 220 K/mm3 (150-450); RBC Distribution Width CV 14.1 % (11.6-14.6); RBC Distribution Width SD 44.6 fl (35.1-43.9); Red Blood Count 3.29 M/mm3 (4.2-5.4); White Blood Count 6.2 K/mm3 (4.4-11.0)
[2020-02-21 05:48] LABS: ALB/GLOB Ratio 0.6 RATIO (0.9-2.4); AST(SGOT) 43 U/L (15-37); Alanine Aminotransfer ALT/SGPT 26 U/L (13-56); Albumin, Serum 2.4 g/dL (3.2-5.0); Alkaline Phosphatase 67 U/L (45-117); Anion Gap 8 (5-15); BUN 59 mg/dL (7-18); BUN/Creat Ratio 38.3 RATIO (10-20); Calcium,Total 9.2 mg/dL (8.5-10.1); Chloride 103 mmol/L (98-107); Creatinine, Serum 1.54 mg/dL (0.55-1.02); EST Glomerular Filtration Rate 38 mL/min (>60); Est Glom Filt Rate - Afr Amer 46 mL/min (>60); Estimated Creatinine Clearance 41.82 ml/min; Globulin 4.1 g/dL (2.2-4.2); Glucose 58 mg/dL (74-106); Protein, Total 6.5 g/dL (6.4-8.2); Sodium Level 137 mmol/L (136-145)
[2020-02-21 07:46] LABS: Bedside Glucose 49 mg/dL (70-110)
[2020-02-21 07:46] LABS: Bedside Glucose 63 mg/dL (70-110)
[2020-02-21 07:46] LABS: Bedside Glucose 79 mg/dL (70-110)
--- NOTE | 2020-02-21 07:52 | PCM.PN.HOSP ---
Patient Problems: Active and Suspected Problems (Last Reviewed 10/31/19 @ 10:18 by Katrina Flores) Osteomyelitis of left foot (Acute) Pneumonia due to COVID-19 virus (Acute) Cellulitis of left foot (Acute) Subjective: Patient seen and examined. Shortness of breath is improving. She remains on 2 L of oxygen. She has no other complaints. Review of symptoms otherwise negative. Creatinine is trended down to 1.54 and blood sugar fell to 58 this morning. Vitals/I&O's: Vital Signs Temp Pulse Resp BP Pulse Ox 97.9 F 80 16 130/82 H 97 02/21/20 02:47 02/21/20 02:47 02/21/20 02:47 02/21/20 02:47 02/21/20 03:00 Oxygen Flow Rate (L/min) 2 Oxygen Delivery Method Nasal Cannula Weight: 191 lb 5.78 oz Body Mass Index (BMI) 31.1 Finger Stick Blood Glucose 191 Intake and Output for Last 24 Hours 02/19/20 02/20/20 02/21/20 23:59 23:59 23:59 Intake Total 2898.60 / 2898.60 1538.75 / 1538.75 450 / 450 Output Total 500 / 500 Balance 2398.60 / 2398.60 1538.75 / 1538.75 450 / 450 General: Alert, Oriented x3, Cooperative,- - obese HEENT: Atraumatic, PERRLA, EOMI, Normocephalic Oral: Dry Mucosa Neck: Supple, No JVD, Negative Carotid Bruits Lungs: - - diminished breath sounds bibasally, no wheezes or crackles. on 2L of oxygen by nasal canula Cardiovascular: Regular rate, Regular Rhythm, Normal S1, Normal S2, No murmurs Abdomen: Bowel Sounds Present, Soft, Non Tender, Non-Distended, No Hepato-splenomegaly Extremities: No clubbing, No cyanosis, No edema, Capillary Refill Less than 3 Seconds Skin: No rashes, No breakdown Musculoskeletal: No Tenderness to Palpation of Joints or Extremities Lymphatic: No Cervical, Supraclavicular, or Inguinal Adenopathy Neurological: Cranial nerves II-XII grossly intact, Neuro grossly intact, Motor Exam 5/5 strength throughout Psych/Mental Status: Normal Affect, Appropriate, Alert and oriented to time, place, person, mood and affect Microbiology Past 72 Hours 02/19/20 11:55 Urine, Clean Catch Legionella Antigen - Final 02/19/20 11:55 Urine, Clean Catch Streptococcus pneumoniae Antigen (M - Final 02/19/20 11:50 Mucosa - Nose SARS-CoV-2 Antigen (Rapid) - Final SARS-CoV-2 (COVID 19) Laboratory Results 02/20/20 05:40: Diff Path Review Reviewed 02/20/20 12:00: POC Glucose 228 H 02/20/20 15:45: POC Glucose 284 H 02/20/20 20:51: POC Glucose 221 H 02/21/20 05:10: WBC 6.2, RBC 3.29 L, Hgb 8.9 L, Hct 28.4 L, MCV 86.3, MCH 27.1, MCHC 31.3 L, RDW Std Deviation 44.6 H, RDW Coeff of Michael 14.1, Plt Count 220, MPV 11.1 02/21/20 05:10: Sodium 137, Potassium 4.0, Chloride 103, Carbon Dioxide 26.0, Anion Gap 8, BUN 59 H, Creatinine 1.54 H, Estim Creat Clear Calc 41.82, Est GFR (MDRD) Af Amer 46 L, Est GFR (MDRD) Non-Af 38 L, BUN/Creatinine Ratio 38.3 H, Glucose 58 L, Calcium 9.2, Total Bilirubin 0.20, AST 43 H, ALT 26, Alkaline Phosphatase 67, Total Protein 6.5, Albumin 2.4 L, Globulin 4.1, Albumin/Globulin Ratio 0.6 L 02/21/20 06:09: POC Glucose 49 L 02/21/20 06:34: POC Glucose 63 L 02/21/20 06:50: POC Glucose 79 Diagnostic Data Chest X-Ray 02/19/20 11:33 IMPRESSION: Left lower lobe pneumonia. Electronically Signed: Kelby Cuadra MD at 12:40 EST Tel , Service support , Current Medications Acetaminophen (Acetaminophen 325 Mg Tablet) 650 mg PO Q6H PRN PRN PRN Reason: Pain Score 1-10/Temp > 100.7 F Last Admin: 02/19/20 20:45 Dose: 650 mg Documented by: Al Hydroxide/Mg Hydroxide (Mag Hydrox/Al Hydrox/Simeth 30 Ml Udc) 30 ml PO Q6H PRN PRN PRN Reason: Gastric Burning Albuterol Sulfate (Albuterol 2.5 Mg/3 Ml Vial.Neb.) 2.5 mg INHALATION Q2H PRN PRN PRN Reason: Shortness of Breath/Wheezing Dexamethasone (Dexamethasone 4 Mg Tablet) 6 mg PO DAILY [facility] Stop: 02/28/20 10:01 Dextrose (Dextrose 50%-Water 25 Gm/50 Ml Disp.Syrin) 0 gm IV X1 PRN; Protocol PRN Reason: Hypoglycemia Duloxetine HCl (Duloxetine Hcl 60 Mg Capsule) 60 mg PO QHS [facility] Last Admin: 02/20/20 20:54 Dose: 60 mg Documented by: Duloxetine HCl (Duloxetine Hcl 30 Mg Capsule) 30 mg PO DAILY [facility] Last Admin: 02/20/20 08:50 Dose: 30 mg Documented by: Enoxaparin Sodium (Enoxaparin 30 Mg/0.3 Ml Syringe) 30 mg SC DAILY [facility] Last Admin: 02/20/20 08:48 Dose: 30 mg Documented by: Ferrous Sulfate (Ferrous Sulfate 325 Mg Tablet) 325 mg PO TIDCM [facility] Last Admin: 02/20/20 15:46 Dose: 325 mg Documented by: Gabapentin (Gabapentin 800 Mg Tablet) 800 mg PO TIDCM [facility] Last Admin: 02/20/20 15:46 Dose: 800 mg Documented by: Glucagon (Glucagon 1 Mg/Ml Syringe) 1 mg IM .X1 PRN PRN Reason: Hypoglycemia Hydroxyzine Pamoate (Hydroxyzine Merayr 25 Mg Capsule) 50 mg PO TID PRN PRN PRN Reason: ANXIETY Last Admin: 02/20/20 18:51 Dose: 50 mg Documented by: Sodium Chloride () 250 mls @ 15 mls/hr IV .[id number] PRN PRN Reason: Additional IVPB Infusion Remdesivir 100 mg/ Sodium (Chloride) 250 mls @ 125 mls/hr IV DAILY [facility] Stop: 02/23/20 11:59 Last Infusion: 02/20/20 11:45 Dose: Infused Documented by: Sodium Chloride () 250 mls @ 15 mls/hr IV .[id number] PRN PRN Reason: Saline Flush Sodium Chloride () 250 mls @ 15 mls/hr IV .[id number] PRN PRN Reason: Additional IVPB Infusion Insulin Glargine (Insulin Glargine 100 Units/Ml Pen) 30 units SC BID [facility] Last Admin: 02/20/20 23:33 Dose: 20 units Documented by: Insulin Human Lispro (Insulin Lispro 100 Unit/Ml Insuln.Pen) 15 unit SC TIDAC [facility] Last Admin: 02/21/20 07:39 Dose: Not Given Documented by: Insulin Human Lispro (Insulin Lispro 100 Unit/Ml Insuln.Pen) 0 unit SC ACHS [facility]; Protocol Last Admin: 02/21/20 07:37 Dose: Not Given Documented by: Loratadine (Loratadine 10 Mg Tablet) 10 mg PO DAILY [facility] Last Admin: 02/20/20 08:51 Dose: 10 mg Documented by: Melatonin (Melatonin 3 Mg Tablet) 3 mg PO QHS PRN PRN PRN Reason: INSOMNIA Last Admin: 02/19/20 21:03 Dose: 3 mg Documented by: Metoclopramide HCl (Metoclopramide 10 Mg Tablet) 10 mg PO BID [facility] Last Admin: 02/20/20 20:54 Dose: 10 mg Documented by: Morphine Sulfate (Morphine 2 Mg/Ml Syringe) 2 mg IV Q3H PRN PRN PRN Reason: Pain Score 6-10 Non-Formulary Medication (Insulin U-500) 2 units SC .CONT [facility] Oxycodone HCl (Oxycodone 5 Mg Tablet) 5 mg PO Q4H PRN PRN PRN Reason: Pain Score 4-5 Last Admin: 02/20/20 20:52 Dose: 5 mg Documented by: Pantoprazole Sodium (Pantoprazole Sodium 40 Mg Tablet) 40 mg PO BID [facility] Last Admin: 02/20/20 20:54 Dose: 40 mg Documented by: Prochlorperazine Edisylate (Prochlorperazine 10 Mg/2 Ml Vial) 5 mg IV Q4H PRN PRN PRN Reason: Breakthrough nausea/vomiting Rosuvastatin Calcium (Rosuvastatin Calcium 10 Mg Tablet) 20 mg PO QHS [facility] Last Admin: 02/20/20 20:53 Dose: 20 mg Documented by: Senna/Docusate Sodium (Senna/Docusate Sodium 1 Tablet) 2 tablet PO BID PRN PRN PRN Reason: Constipation Sodium Chloride (0.9% Saline Lock 10 Ml Syringe) 10 - 40 ml IV UD PRN PRN Reason: SALINE FLUSH Last Admin: 02/20/20 08:51 Dose: 10 ml Documented by: Sucralfate (Sucralfate 1 Gm Tablet) 1 gm PO QHS [facility] Last Admin: 02/20/20 20:57 Dose: 1 gm Documented by: Tramadol HCl (Tramadol 50 Mg Tablet) 50 mg PO TID PRN PRN PRN Reason: Pain Score 1-10 Trazodone HCl (Trazodone 100 Mg Tablet) 150 mg PO QHS [facility] Last Admin: 02/20/20 20:53 Dose: 150 mg Documented by: Medical Necessity - Tobacco Use Smoking Status: Never smoker Assessment/Plan All Active Problems (Last Reviewed 10/31/19 @ 10:18 by Katrina Flores) Osteomyelitis of left foot (Acute) Pneumonia due to COVID-19 virus (Acute) Chest pain (Resolved) Right middle lobe pneumonia (Resolved) Acute kidney injury (Resolved) Iron (Fe) deficiency anemia (Resolved) Cellulitis of left foot (Acute) Lymphadenopathy, inguinal (Resolved) Cellulitis of right foot (Resolved) Infection of right great toe due to methicillin resistant Staphylococcus aureus (MRSA) (Resolved) Osteomyelitis of right foot (Resolved) Iron deficiency (Resolved) Hypomagnesemia (Resolved) MRSA cellulitis of left foot (Resolved) #Acute hypoxic respiratory insufficiency due to COVID 19 pneumonia still on 2L of oxygen titrate oxygen to maintain sats >90% breathing treatment with bronchodilators # COVID 19 pneumonia with superimposed bacterial pneumonia On IV ceftriaxone and azithromycin. Also on Decadron and remdesivir. ID on board;l ceftriaxone discontinued per ID Titrate oxygen to maintain saturation above 90% as above. #COPD exacerbation on steroids. 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 Insulin sliding scale. Accu-Cheks AC at bedtime. #ZACHERY on CKD IV CR down to 1.6 today, which is around her baseline. Baseline creatinine is around 1.6. We will continue gentle hydration with IV fluids and monitor. #GERD On PPI #Hyperlipidemia; on statin #hypertension: Enalapril on hold on account of ZACHERY on CKD. IV hydralazine as needed. BP has improved #History of lupus: stable #History of nonalcoholic steatohepatitis and cirrhosis stable #Anxiety and depression On trazodone and Cymbalta. DVT prophylaxis: Lovenox 30mg daily. Will increase dose to 30mg bid now kidney function has improved. Inpatient E&M: 46564 Subs Hosp L3
[2020-02-21] MEDS: Ferrous Sulfate 325 MG Tablet PO ×3 (08:18→16:52)
[2020-02-21] MEDS: Gabapentin 800 MG Tablet PO ×3 (08:18→16:52)
[2020-02-21] MEDS: Metoclopramide 10 MG Tablet PO ×2 (08:27→20:45)
[2020-02-21] MEDS: Pantoprazole Sodium 40 MG Tablet PO ×2 (08:27→20:46)
[2020-02-21] MEDS: DULoxetine Hcl 30 MG Capsule PO (08:27)
[2020-02-21] MEDS: Loratadine 10 MG Tablet PO (08:27)
[2020-02-21] MEDS: Enoxaparin 30 MG/0.3 ML Syringe SC ×2 (08:28→20:46)
[2020-02-21] MEDS: dexAMETHasone 4 MG Tablet 6 MG PO (08:29)
[2020-02-21 08:35] VITALS: BP 140/81; PULSE 84; RESP 16; TEMP 36.8; O2SAT 92
[2020-02-21] MEDS: 0.9% Saline Lock 10 ML Syringe IV (10:06)
[2020-02-21 12:26] LABS: Bedside Glucose 253 mg/dL (70-110)
[2020-02-21] MEDS: Insulin Lispro 100 UNIT/ML INSULN.PEN SC ×2 (13:27→16:47)
[2020-02-21] MEDS: Insulin Lispro 100 UNIT/ML INSULN.PEN 15 UNIT SC ×2 (13:29→16:47)
[2020-02-21 14:30] VITALS: BP 138/78; PULSE 84; RESP 16; TEMP 36.6; O2SAT 95
[2020-02-21 16:56] LABS: Bedside Glucose 295 mg/dL (70-110)
[2020-02-21 20:43] VITALS: BP 145/84; PULSE 82; RESP 16; TEMP 37.1; O2SAT 94
[2020-02-21] MEDS: Sucralfate 1 GM Tablet PO (20:45)
[2020-02-21] MEDS: DULoxetine Hcl 60 MG Capsule PO (20:46)
[2020-02-21] MEDS: traZODone 100 MG Tablet 150 MG PO (20:46)
[2020-02-21 21:00] VITALS: O2SAT 94
[2020-02-21 21:30] LABS: Bedside Glucose 284 mg/dL (70-110)
--- NOTE | 2020-02-21 22:08 | PN_ITS ---
Progress Note Nurse called to clarify insulin orders - patient has an insulin pump that is working and on during this hospital. Patient reportedly had hypoglycemia of 49 this morning Patient reportedly was told by her endocrinology to increase her basal insulin when not well Will hold home Lantus. 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 Repeat blood glucose at midnight and then continue with ACHS STROKE Vital Signs/Narrative: Vital Signs Temp Pulse Resp BP Pulse Ox 02/21/20 21:00 94 02/21/20 20:43 98.7 F 82 16 145/84 H 94
[2020-02-22 00:15] LABS: Bedside Glucose 323 mg/dL (70-110)
[2020-02-22 03:00] VITALS: O2SAT 94
[2020-02-22 03:10] VITALS: BP 117/76; PULSE 82; RESP 16; TEMP 36.8; O2SAT 94
[2020-02-22 06:15] LABS: Hematocrit 27.3 % (37-47); Hemoglobin 8.9 g/dL (12.0-15.0); Mean Corp Hgb Conc 32.6 g/dL (32-36); Mean Corpuscular Hgb 27.6 pg (27.0-32.0); Mean Corpuscular Volume 84.8 fL (81-99); Platelet Count 212 K/mm3 (150-450); RBC Distribution Width CV 13.9 % (11.6-14.6); RBC Distribution Width SD 43.1 fl (35.1-43.9); Red Blood Count 3.22 M/mm3 (4.2-5.4); White Blood Count 5.9 K/mm3 (4.4-11.0)
[2020-02-22 06:38] LABS: ALB/GLOB Ratio 0.5 RATIO (0.9-2.4); AST(SGOT) 35 U/L (15-37); Alanine Aminotransfer ALT/SGPT 22 U/L (13-56); Albumin, Serum 2.3 g/dL (3.2-5.0); Alkaline Phosphatase 73 U/L (45-117); Anion Gap 6 (5-15); BUN 50 mg/dL (7-18); BUN/Creat Ratio 31.6 RATIO (10-20); Calcium,Total 9.4 mg/dL (8.5-10.1); Chloride 107 mmol/L (98-107); Creatinine, Serum 1.58 mg/dL (0.55-1.02); EST Glomerular Filtration Rate 37 mL/min (>60); Est Glom Filt Rate - Afr Amer 45 mL/min (>60); Estimated Creatinine Clearance 40.76 ml/min; Globulin 4.3 g/dL (2.2-4.2); Glucose 141 mg/dL (74-106); Potassium 3.9 mmol/L (3.5-5.1); Protein, Total 6.6 g/dL (6.4-8.2); Sodium Level 138 mmol/L (136-145)
[2020-02-22 07:01] LABS: Bedside Glucose 118 mg/dL (70-110)
[2020-02-22] MEDS: Ferrous Sulfate 325 MG Tablet PO ×2 (08:44→13:16)
[2020-02-22] MEDS: Gabapentin 800 MG Tablet PO ×2 (08:45→13:16)
[2020-02-22 08:50] VITALS: BP 135/80; PULSE 82; RESP 18; TEMP 36.6; O2SAT 95
[2020-02-22] MEDS: Loratadine 10 MG Tablet PO (09:01)
[2020-02-22] MEDS: Metoclopramide 10 MG Tablet PO (09:01)
[2020-02-22] MEDS: Enoxaparin 30 MG/0.3 ML Syringe SC (09:01)
[2020-02-22] MEDS: dexAMETHasone 4 MG Tablet 6 MG PO (09:01)
[2020-02-22] MEDS: DULoxetine Hcl 30 MG Capsule PO (09:01)
[2020-02-22] MEDS: Pantoprazole Sodium 40 MG Tablet PO (09:01)
[2020-02-22 09:08] VITALS: O2SAT 91; O2SAT 95
[2020-02-22] MEDS: 0.9% Saline Lock 10 ML Syringe IV (10:06)
[2020-02-22 10:30] VITALS: O2SAT 95
--- NOTE | 2020-02-22 11:19 | PCM.DC ---
- Discharge Diagnoses Current Active Problems: Current Active and Chronic Problems (Last Reviewed 10/31/19 @ 10:18 by Katrina Flores) Osteomyelitis of left foot (Acute) Pneumonia due to COVID-19 virus (Acute) COPD (chronic obstructive pulmonary disease) (Chronic) GERD (gastroesophageal reflux disease) (Chronic) Diastolic dysfunction (Chronic) Abnormal CT scan, liver (Chronic) Cellulitis of left foot (Acute) SLE (systemic lupus erythematosus) (Chronic) Pulmonary hypertension (Chronic) Asthma (Chronic) Diabetes mellitus (Chronic) insulin resistance on U500 History of MRSA infection (Chronic) Cirrhosis of liver (Chronic) [place] Anemia of chronic disease (Chronic) Status post transmetatarsal amputation of right foot (Chronic) 04/11/[address] Lindsay Depression (Chronic) Peripheral neuropathy (Chronic) You will use the following diet at home:: Calorie/Carbohydrate Controlled (specify 1200, 1400, etc) Your food should be the consistency of: Regular Your liquids should be the consistency of: Regular/Thin Discharge Activity: Return to Normal Activity Weight Bearing Status: Weight bearing as tolerated Call your doctor if you observe: Fever of 101 or Higher, Shortness of breath, Swelling in the ankles, Chest pain, Increased palpitations (irregular heartbeat) Instructions: Coronavirus Disease 2019 (COVID-19): Caring for Yourself or Others, COVID-19 and the Flu: What's the Difference? Additional Instructions: to be in self isolation till 03/11/2019, for a total of 21 days after diagnosis for COVID. Allergies/Adverse Reactions: Allergies atorvastatin [From Lipitor] Adverse Reaction (Severe, Verified 02/19/20 11:14) Vomiting oxycodone HCl [From Percocet] Adverse Reaction (Severe, Verified 02/19/20 11:14) Vomiting Medications to take at Discharge Duloxetine Hcl [Cymbalta] 60 mg PO QHS 11/26/12 Enalapril Maleate [Vasotec] 2.5 mg PO BID 11/26/12 Ondansetron [Zofran] 8 mg PO Q8H PRN 12/29/12 Esomeprazole Mag Trihydrate [Nexium] 40 mg PO BID 05/24/15 Budesonide Inhaler 180 mcg [Pulmicort Inhaler 180 mcg] 2 puff INHALATION DAILY 10/02/15 Insulin U-500 [Humulin R U-500 ([facility])] 1.2 units SC CONT 10/02/15 traZODone [Desyrel] 150 mg PO QHS 12/27/15 Ergocalciferol [Vitamin D] 50,000 unit PO MOWEFR 01/24/16 Ferrous Sulfate 325 mg PO TIDCM 01/24/16 traMADol [Ultram] 50 mg PO TID PRN 01/24/16 Albuterol Aerosols [Ventolin Aerosols] 2.5 mg INHALATION Q4H PRN PRN 06/09/16 Sucralfate 1 gm PO QHS 09/01/16 Gabapentin [Neurontin] 800 mg PO TID 05/19/17 rosuvastatin 10 mg tablet 20 mg PO QHS tab 06/03/17 Duloxetine Hcl [Cymbalta] 30 mg PO DAILY 07/30/18 Insulin Aspart [Novolog Flexpen] See Protocol SC ACHS 07/30/18 Loratadine 10 mg PO DAILY 07/30/18 Magnesium Oxide [Mag-Ox 400] 400 mg PO DAILYCM 07/30/18 Metoclopramide [Reglan] 10 mg PO BID 07/30/18 Hydroxyzine Pamoate 50 mg PO TID PRN 02/20/20 Dexamethasone [Decadron] 6 mg PO DAILY #6 tab 02/22/20 The following prescriptions were given: Dexamethasone [Decadron] 6 mg PO DAILY #6 tab Transmission Status: Pending to [facility]/pharmacy #[id number] Primary Care Physician: Johann Jimenez MD [Primary Care Provider] - Please follow up with your Primary Care Physician in: 1-2 weeks Test Results: Test results from this visit will be discussed in further detail at your follow-up appointment, if applicable. Proposed Discharge Date: 02/22/20
--- NOTE | 2020-02-22 11:22 | DS.PCM_ITS ---
Discharge Date and Diagnosis - Problem List Patient Problems: Active and Suspected Problems (Last Reviewed 10/31/19 @ 10:18 by Katrina Flores) Osteomyelitis of left foot (Acute) Pneumonia due to COVID-19 virus (Acute) Cellulitis of left foot (Acute) Date of Admission: 02/19/20 Date of Discharge: 02/22/20 - Primary Discharge Diagnosis Acute Problems: Active Problems (Last Reviewed 10/31/19 @ 10:18 by Katrina Flores) Pneumonia due to COVID-19 virus (Acute) Cellulitis of left foot (Acute) COVID 19 infection acute hypoxic respiratory insufficiency due to COVID 19 infection - Secondary Discharge Diagnosis Chronic Problems: Chronic Problems (Last Reviewed 10/31/19 @ 10:18 by Katrina Flores) COPD (chronic obstructive pulmonary disease) (Chronic) GERD (gastroesophageal reflux disease) (Chronic) Diastolic dysfunction (Chronic) Abnormal CT scan, liver (Chronic) SLE (systemic lupus erythematosus) (Chronic) Pulmonary hypertension (Chronic) Asthma (Chronic) Diabetes mellitus (Chronic) insulin resistance on U500 History of MRSA infection (Chronic) Cirrhosis of liver (Chronic) [place] Anemia of chronic disease (Chronic) Status post transmetatarsal amputation of right foot (Chronic) 04/11/[address] Lindsay Depression (Chronic) Peripheral neuropathy (Chronic) Hospital Course and Treatment Imaging Results: Diagnostic Data Chest X-Ray 02/19/20 11:33 IMPRESSION: Left lower lobe pneumonia. Electronically Signed: Kelby Cuadra MD at 12:40 EST Tel , Service support , Operations: None Procedures: None Summary of Care Provided: The patient is a 49 year old F with an extensive past medical history as outlined was admitted through the ED on 02/19/2020 with a complaint of cough and shortness of breath since 1224. She had associated fever and chills, nausea and vomiting and diarrhea. Symptoms that started on 02/09/2020 and her and daughter also had similar symptoms. In the ED she was noted to be febrile and tachycardic. Chest x-ray done showed mild left lower lobe infiltrate and she required 2 L of oxygen saturating 94%. Covid test done was positive. Patient was admitted and managed for COVID-19 pneumonia and acute hypoxic respiratory in sufficiency. He was started on IV ceftriaxone and azithromycin due to concerns for superimposed bacterial infection. She was started on Decadron and remdesivir. Blood cultures were negative after 48 hours and urine for strep and Legionella antigens were also negative. She was gradually weaned off of oxygen and did well on room air. Oxygen saturation at rest on room air was 95% and with ambulation dropped to 91%. She therefore did not qualify for home oxygen. She remained stable and was discharged home on 02/22/2020 with a prescription for p.o. Decadron 6 mg daily for 6 days to complete a 10-day course. She is also to remain in self-isolation till 03/11/2020, which would be 21 days after she was diagnosed. She is follow-up with her primary care doctor within 1 to 2 weeks. Patient seen and examined prior to discharge. She had no complaints and felt well. Review of symptoms otherwise negative. Labs and vitals reviewed. Home medication reviewed and reconciled. O/E: Vital Signs Temp Pulse Resp BP Pulse Ox 97.8 F 82 18 135/80 H 95 02/22/20 08:50 02/22/20 08:50 02/22/20 08:50 02/22/20 08:50 02/22/20 10:30 [] General: Alert, Oriented x3, Cooperative,- - obese HEENT: Atraumatic, PERRLA, EOMI, Normocephalic Oral: Dry Mucosa Neck: Supple, No JVD, Negative Carotid Bruits Lungs: - - diminished breath sounds bibasally, no wheezes or crackles. on room air Cardiovascular: Regular rate, Regular Rhythm, Normal S1, Normal S2, No murmurs Abdomen: Bowel Sounds Present, Soft, Non Tender, Non-Distended, No Hepato- splenomegaly Extremities: No clubbing, No cyanosis, No edema, Capillary Refill Less than 3 Seconds Skin: No rashes, No breakdown Musculoskeletal: No Tenderness to Palpation of Joints or Extremities; left BKA Lymphatic: No Cervical, Supraclavicular, or Inguinal Adenopathy Neurological: Cranial nerves II-XII grossly intact, Neuro grossly intact, Motor Exam 5/5 strength throughout Psych/Mental Status: Normal Affect, Appropriate, Alert and oriented to time, place, person, mood and affect Plan is for discharge home today. Patient Problems: Active and Suspected Problems (Last Reviewed 10/31/19 @ 10:18 by Katrina Flores) Osteomyelitis of left foot (Acute) Pneumonia due to COVID-19 virus (Acute) Cellulitis of left foot (Acute) - Physical Exam Vitals/I&O's: Vital Signs Temp Pulse Resp BP Pulse Ox 97.8 F 82 18 135/80 H 95 02/22/20 08:50 02/22/20 08:50 02/22/20 08:50 02/22/20 08:50 02/22/20 10:30 Oxygen Flow Rate (L/min) 2 Oxygen Delivery Method Room Air Weight: 191 lb 9.307 oz Body Mass Index (BMI) 31.1 Finger Stick Blood Glucose 191 Intake and Output for Last 24 Hours 02/20/20 02/21/20 02/22/20 23:59 23:59 23:59 Intake Total 1538.75 / 1538.75 700 / 1100 400 / 400 Output Total 500 / 500 Balance 1538.75 / 1538.75 200 / 600 400 / 400 Microbiology Past 72 Hours 02/19/20 13:45 Blood Culture (Wb) - Anticubital Right Blood Culture - Preliminary No growth in 48 hours. 02/19/20 11:40 Blood Culture (Wb) - Anticubital Left Blood Culture - Preliminary No growth in 48 hours. 02/19/20 11:55 Urine, Clean Catch Legionella Antigen - Final 02/19/20 11:55 Urine, Clean Catch Streptococcus pneumoniae Antigen (M - Final 02/19/20 11:50 Mucosa - Nose SARS-CoV-2 Antigen (Rapid) - Final SARS-CoV-2 (COVID 19) Laboratory Results 02/21/20 12:21: POC Glucose 253 H 02/21/20 16:44: POC Glucose 295 H 02/21/20 20:50: POC Glucose 284 H 02/22/20 00:08: POC Glucose 323 H 02/22/20 05:54: WBC 5.9, RBC 3.22 L, Hgb 8.9 L, Hct 27.3 L, MCV 84.8, MCH 27.6, MCHC 32.6, RDW Std Deviation 43.1, RDW Coeff of Michael 13.9, Plt Count 212, MPV 11.0 02/22/20 05:54: Sodium 138, Potassium 3.9, Chloride 107, Carbon Dioxide 25.0, Anion Gap 6, BUN 50 H, Creatinine 1.58 H, Estim Creat Clear Calc 40.76, Est GFR (MDRD) Af Amer 45 L, Est GFR (MDRD) Non-Af 37 L, BUN/Creatinine Ratio 31.6 H, Glucose 141 H, Calcium 9.4, Total Bilirubin 0.30, AST 35, ALT 22, Alkaline Phosphatase 73, Total Protein 6.6, Albumin 2.3 L, Globulin 4.3 H, Albumin/Globulin Ratio 0.5 L 02/22/20 06:50: POC Glucose 118 H Current Medications Acetaminophen (Acetaminophen 325 Mg Tablet) 650 mg PO Q6H PRN PRN PRN Reason: Pain Score 1-10/Temp > 100.7 F Last Admin: 02/19/20 20:45 Dose: 650 mg Documented by: Al Hydroxide/Mg Hydroxide (Mag Hydrox/Al Hydrox/Simeth 30 Ml Udc) 30 ml PO Q6H PRN PRN PRN Reason: Gastric Burning Albuterol Sulfate (Albuterol 2.5 Mg/3 Ml Vial.Neb.) 2.5 mg INHALATION Q2H PRN PRN PRN Reason: Shortness of Breath/Wheezing Dexamethasone (Dexamethasone 4 Mg Tablet) 6 mg PO DAILY [facility] Stop: 02/28/20 10:01 Last Admin: 02/22/20 09:01 Dose: 6 mg Documented by: Dextrose (Dextrose 50%-Water 25 Gm/50 Ml Disp.Syrin) 0 gm IV X1 PRN; Protocol PRN Reason: Hypoglycemia Duloxetine HCl (Duloxetine Hcl 60 Mg Capsule) 60 mg PO QHS [facility] Last Admin: 02/21/20 20:46 Dose: 60 mg Documented by: Duloxetine HCl (Duloxetine Hcl 30 Mg Capsule) 30 mg PO DAILY [facility] Last Admin: 02/22/20 09:01 Dose: 30 mg Documented by: Enoxaparin Sodium (Enoxaparin 30 Mg/0.3 Ml Syringe) 30 mg SC BID [facility] Last Admin: 02/22/20 09:01 Dose: 30 mg Documented by: Ferrous Sulfate (Ferrous Sulfate 325 Mg Tablet) 325 mg PO TIDCM [facility] Last Admin: 02/22/20 08:44 Dose: 325 mg Documented by: Gabapentin (Gabapentin 800 Mg Tablet) 800 mg PO TIDCM [facility] Last Admin: 02/22/20 08:45 Dose: 800 mg Documented by: Glucagon (Glucagon 1 Mg/Ml Syringe) 1 mg IM .X1 PRN PRN Reason: Hypoglycemia Hydroxyzine Pamoate (Hydroxyzine Merary 25 Mg Capsule) 50 mg PO TID PRN PRN PRN Reason: ANXIETY Last Admin: 02/20/20 18:51 Dose: 50 mg Documented by: Sodium Chloride () 250 mls @ 15 mls/hr IV .[id number] PRN PRN Reason: Additional IVPB Infusion Remdesivir 100 mg/ Sodium (Chloride) 250 mls @ 125 mls/hr IV DAILY [facility] Stop: 02/23/20 11:59 Last Admin: 02/22/20 10:06 Dose: 125 mls/hr Documented by: Sodium Chloride () 250 mls @ 15 mls/hr IV .[id number] PRN PRN Reason: Saline Flush Sodium Chloride () 250 mls @ 15 mls/hr IV .[id number] PRN PRN Reason: Additional IVPB Infusion Insulin Human Lispro (Insulin Lispro 100 Unit/Ml Insuln.Pen) 15 unit SC TIDAC [facility] Last Admin: 02/22/20 07:05 Dose: Not Given Documented by: Insulin Human Lispro (Insulin Lispro 100 Unit/Ml Insuln.Pen) 0 unit SC [facility]; Protocol Last Admin: 02/22/20 07:06 Dose: Not Given Documented by: Loratadine (Loratadine 10 Mg Tablet) 10 mg PO DAILY [facility] Last Admin: 02/22/20 09:01 Dose: 10 mg Documented by: Melatonin (Melatonin 3 Mg Tablet) 3 mg PO QHS PRN PRN PRN Reason: INSOMNIA Last Admin: 02/19/20 21:03 Dose: 3 mg Documented by: Metoclopramide HCl (Metoclopramide 10 Mg Tablet) 10 mg PO BID [facility] Last Admin: 02/22/20 09:01 Dose: 10 mg Documented by: Morphine Sulfate (Morphine 2 Mg/Ml Syringe) 2 mg IV Q3H PRN PRN PRN Reason: Pain Score 6-10 Non-Formulary Medication (Insulin U-500) 2 units SC .CONT [facility] Oxycodone HCl (Oxycodone 5 Mg Tablet) 5 mg PO Q4H PRN PRN PRN Reason: Pain Score 4-5 Last Admin: 02/20/20 20:52 Dose: 5 mg Documented by: Pantoprazole Sodium (Pantoprazole Sodium 40 Mg Tablet) 40 mg PO BID [facility] Last Admin: 02/22/20 09:01 Dose: 40 mg Documented by: Prochlorperazine Edisylate (Prochlorperazine 10 Mg/2 Ml Vial) 5 mg IV Q4H PRN PRN PRN Reason: Breakthrough nausea/vomiting Rosuvastatin Calcium (Rosuvastatin Calcium 10 Mg Tablet) 20 mg PO QHS [facility] Last Admin: 02/21/20 20:46 Dose: 20 mg Documented by: Senna/Docusate Sodium (Senna/Docusate Sodium 1 Tablet) 2 tablet PO BID PRN PRN PRN Reason: Constipation Sodium Chloride (0.9% Saline Lock 10 Ml Syringe) 10 - 40 ml IV UD PRN PRN Reason: SALINE FLUSH Last Admin: 02/22/20 10:06 Dose: 10 ml Documented by: Sucralfate (Sucralfate 1 Gm Tablet) 1 gm PO QHS [facility] Last Admin: 02/21/20 20:45 Dose: 1 gm Documented by: Tramadol HCl (Tramadol 50 Mg Tablet) 50 mg PO TID PRN PRN PRN Reason: Pain Score 1-10 Trazodone HCl (Trazodone 100 Mg Tablet) 150 mg PO QHS [facility] Last Admin: 02/21/20 20:46 Dose: 150 mg Documented by: Discharge Diet: Low fat/ Low Cholesterol Discharge Activity: Return to Normal Activity Weight Bearing Status: Weight bearing as tolerated Call your doctor if you observe: Fever of 101 or Higher, Shortness of breath, Swelling in the ankles, Chest pain, Increased palpitations (irregular heartbeat) Home Medications: Medications to take at Discharge Duloxetine Hcl [Cymbalta] 60 mg PO QHS 11/26/12 Enalapril Maleate [Vasotec] 2.5 mg PO BID 11/26/12 Ondansetron [Zofran] 8 mg PO Q8H PRN 12/29/12 Esomeprazole Mag Trihydrate [Nexium] 40 mg PO BID 05/24/15 Budesonide Inhaler 180 mcg [Pulmicort Inhaler 180 mcg] 2 puff INHALATION DAILY 10/02/15 Insulin U-500 [Humulin R U-500 ([facility])] 1.2 units SC CONT 10/02/15 traZODone [Desyrel] 150 mg PO QHS 12/27/15 Ergocalciferol [Vitamin D] 50,000 unit PO MOWEFR 01/24/16 Ferrous Sulfate 325 mg PO TIDCM 01/24/16 traMADol [Ultram] 50 mg PO TID PRN 01/24/16 Albuterol Aerosols [Ventolin Aerosols] 2.5 mg INHALATION Q4H PRN PRN 06/09/16 Sucralfate 1 gm PO QHS 09/01/16 Gabapentin [Neurontin] 800 mg PO TID 05/19/17 rosuvastatin 10 mg tablet 20 mg PO QHS tab 06/03/17 Duloxetine Hcl [Cymbalta] 30 mg PO DAILY 07/30/18 Insulin Aspart [Novolog Flexpen] See Protocol SC ACHS 07/30/18 Loratadine 10 mg PO DAILY 07/30/18 Magnesium Oxide [Mag-Ox 400] 400 mg PO DAILYCM 07/30/18 Metoclopramide [Reglan] 10 mg PO BID 07/30/18 Hydroxyzine Pamoate 50 mg PO TID PRN 02/20/20 Dexamethasone [Decadron] 6 mg PO DAILY #6 tab 02/22/20 Following Prescriptions Were Given to Patient: Dexamethasone [Decadron] 6 mg PO DAILY #6 tab Transmission Status: Received by [facility]/pharmacy #[id number] Primary Care Physician: Johann Jimenez MD [Primary Care Provider] - Please follow up with your Primary Care Physician in: 1-2 weeks Patient Instructions: Coronavirus Disease 2019 (COVID-19): Caring for Yourself or Others, COVID-19 and the Flu: What's the Difference? Disposition: Home Minutes spent on discharge:: 40 Patient Condition:: Stable Medical Necessity - Tobacco Use Smoking Status: Never smoker Meaningful Use Info Meaningful Use Diagnoses (Choose all that apply): None applicable Inpatient E&M: 16322 Disch Hosp
--- NOTE | 2020-02-22 11:27 | CASEMGMT ---
ROSA LUNA NOTE: Ambulatory pulse ox has been completed. Pt does not qualify for additional Home O2 orders. (already has Home O2 @ [facility]). William BOATENGN ROSA CM
[2020-02-22 12:41] LABS: Bedside Glucose 112 mg/dL (70-110)
--- NOTE | 2020-02-23 13:26 | CASEMGMT ---
ROSA LUNA Discharge Follow-Up Phone Call. Zoey: 11 Strata: 3 Discharge Date: 02/22/20 Adm Dx: COVID-19, Hyperglycemia. Call to pt to inquire about how she has been doing since being discharged from the hospital. She states she is tired, but doing okay. This COVID sure does take it out of you. She states still has some coughing, but is better. She was able to pick up driver the Decadron @ [facility] yesterday and denies having any questions about it or her other medications. She has not made an appt w/Dr Jimenez yet but plans to call today to make it. She denies having any questions about the discharge instructions and denies needs/concerns. ROSA LUNA thanked pt for choosing [facility]. William BETTS RN, CM
== END 2020-02-22 13:44 | disposition home or self-care (01) | DRG 177 ==
LOC: ED 12:09 → MS2 13:37
PROVIDERS: Internal Medicine Infectious Disease; Admitting Provider Internal Medicine; Emergency Provider Emergency Medicine; PCP Family Medicine; Visit Provider Student in an Organized Health Care Education/Training Program
DX: U07.1 COVID-19 (principal); J12.82 Pneumonia due to coronavirus disease 2019; J96.01 Acute respiratory failure with hypoxia; J15.9 Unspecified bacterial pneumonia; N17.9 Acute kidney failure, unspecified; N18.4 Chronic kidney disease, stage 4 (severe); J44.0 Chronic obstructive pulmonary disease with (acute) lower respiratory infection; J44.1 Chronic obstructive pulmonary disease with (acute) exacerbation; M86.9 Osteomyelitis, unspecified; L03.116 Cellulitis of left lower limb; E44.1 Mild protein-calorie malnutrition; I12.9 Hypertensive chronic kidney disease with stage 1 through stage 4 chronic kidney disease, or unspecified chronic kidney disease; E11.22 Type 2 diabetes mellitus with diabetic chronic kidney disease; D50.9 Iron deficiency anemia, unspecified; D63.8 Anemia in other chronic diseases classified elsewhere; E78.5 Hyperlipidemia, unspecified; E11.649 Type 2 diabetes mellitus with hypoglycemia without coma; E11.69 Type 2 diabetes mellitus with other specified complication; E66.9 Obesity, unspecified; Z68.31 Body mass index [BMI] 31.0-31.9, adult; F32.9 Major depressive disorder, single episode, unspecified; F41.9 Anxiety disorder, unspecified; K21.9 Gastro-esophageal reflux disease without esophagitis; K74.60 Unspecified cirrhosis of liver; Z86.14 Personal history of Methicillin resistant Staphylococcus aureus infection; Z86.73 Personal history of transient ischemic attack (TIA), and cerebral infarction without residual deficits; M32.9 Systemic lupus erythematosus, unspecified; I27.20 Pulmonary hypertension, unspecified; E11.40 Type 2 diabetes mellitus with diabetic neuropathy, unspecified; K75.81 Nonalcoholic steatohepatitis (NASH); Z89.512 Acquired absence of left leg below knee; Z87.01 Personal history of pneumonia (recurrent); K58.9 Irritable bowel syndrome, unspecified; Z79.4 Long term (current) use of insulin; Z79.899 Other long term (current) drug therapy; Z79.01 Long term (current) use of anticoagulants; Z96.41 Presence of insulin pump (external) (internal)
CPT/HCPCS: 71045; 80053; 81001; 82550; 82962; 83605; 83615; 83735; 83880; 84145; 84484; 85025; 85027; 85379; 85384; 85610; 86140; 87040; 87426; 87449; 93005; 93970; 97802; 99285; J7030; J7050; J7120; A4216

== ENCOUNTER → 2020-03-29 10:21 | Outpatient (CLI) | payer OTHER, MEDICARE, SELFPAY ==
[2019-10-31 10:19] VITALS: BMI 33.9
[2020-03-29 12:51] LABS: Absolute Lymphocyte Count 1.04 X10^3/uL (0.83-4.51); Absolute Neutrophil Count 3.8 X10^3/uL (2.0-7.7); Eosinophil# 0.06 X10^3/uL; Eosinophils% 1.1 % (0-5); Hematocrit 28.7 % (37-47); Hemoglobin 8.9 g/dL (12.0-15.0); Lymphocyte # 1.04 X10^3/ul (4.0); Lymphocyte % 19.5 % (19-41); Mean Corpuscular Hgb 27.2 pg (27.0-32.0); Mean Corpuscular Volume 87.8 fL (81-99); Mean Platelet Vol. 11.3 fl (6.2-12.0); Monocyte# 0.35 X10^3/uL; Monocyte% 6.6 % (0-10); NRBC Flagged by Analyzer 0 % (0-5); Neutrophil # 3.84 X10^3/uL (2.7-7.7); Neutrophil % 72.2 % (47-70); Platelet Count 172 K/mm3 (150-450); RBC Distribution Width CV 15.3 % (11.6-14.6); RBC Distribution Width SD 49.3 fl (35.1-43.9); Red Blood Count 3.27 M/mm3 (4.2-5.4); White Blood Count 5.3 K/mm3 (4.4-11.0)
[2020-03-29 13:00] LABS: ALB/GLOB Ratio 0.8 RATIO (0.9-2.4); AST(SGOT) 28 U/L (15-37); Alanine Aminotransfer ALT/SGPT 22 U/L (13-56); Albumin, Serum 3.2 g/dL (3.2-5.0); Alkaline Phosphatase 74 U/L (45-117); Anion Gap 5 (5-15); BUN 31 mg/dL (7-18); BUN/Creat Ratio 16.8 RATIO (10-20); Calcium,Total 9.7 mg/dL (8.5-10.1); Chloride 101 mmol/L (98-107); Creatinine, Serum 1.85 mg/dL (0.55-1.02); EST Glomerular Filtration Rate 31 mL/min (>60); Est Glom Filt Rate - Afr Amer 37 mL/min (>60); Glucose 323 mg/dL (74-106); Potassium 4.8 mmol/L (3.5-5.1); Protein, Total 7.2 g/dL (6.4-8.2); Sodium Level 135 mmol/L (136-145)
== END ==
PROVIDERS: PCP Family Medicine; Referring Provider Internal Medicine Rheumatology; Visit Provider Internal Medicine Rheumatology
DX: M06.4 Inflammatory polyarthropathy (principal); M79.7 Fibromyalgia; K21.9 Gastro-esophageal reflux disease without esophagitis; K74.69 Other cirrhosis of liver; I27.0 Primary pulmonary hypertension; E11.8 Type 2 diabetes mellitus with unspecified complications
CPT/HCPCS: 36415; 80053; 85025

== ENCOUNTER → 2020-05-22 13:55 | Outpatient (CLI) | payer OTHER, MEDICARE, SELFPAY ==
[2020-05-09 13:55] VITALS: BMI 35.6
== END ==
PROVIDERS: PCP Family Medicine; Referring Provider Physician Assistant Medical; Visit Provider Physician Assistant Medical
DX: U07.1 COVID-19 (principal); R06.00 Dyspnea, unspecified; R06.02 Shortness of breath; R00.2 Palpitations
CPT/HCPCS: 93225; 93226

== ENCOUNTER → 2020-05-29 09:11 | Outpatient (CLI) | payer OTHER, MEDICARE, SELFPAY ==
[2020-05-29 08:34] VITALS: BMI 34.0
[2020-05-29 10:29] LABS: Hematocrit 29.6 % (37-47); Hemoglobin 9.5 g/dL (12.0-15.0)
[2020-05-29 11:18] LABS: Anion Gap 7 (5-15); BUN 35 mg/dL (7-18); BUN/Creat Ratio 16.5 RATIO (10-20); Calcium,Total 9.7 mg/dL (8.5-10.1); Chloride 100 mmol/L (98-107); Creatinine, Serum 2.12 mg/dL (0.55-1.02); EST Glomerular Filtration Rate 26 mL/min (>60); Est Glom Filt Rate - Afr Amer 32 mL/min (>60); Glucose 294 mg/dL (74-106); Magnesium 2.3 mg/dL (1.6-2.6); Potassium 4.1 mmol/L (3.5-5.1); Sodium Level 136 mmol/L (136-145); Thyroid Stim Hormone (TSH) 1.45 uIU/mL (0.358-3.74)
== END ==
PROVIDERS: PCP Family Medicine; Referring Provider Physician Assistant Medical; Visit Provider Physician Assistant Medical
DX: I49.3 Ventricular premature depolarization (principal); R07.9 Chest pain, unspecified
CPT/HCPCS: 36415; 80048; 83735; 84443; 85014; 85018

== ENCOUNTER → 2020-06-14 06:49 | Outpatient (CLI) | payer OTHER, MEDICARE, SELFPAY ==
[2020-05-29 08:34] VITALS: BMI 34.0
--- NOTE | 2020-06-14 08:42 | STRESSREP ---
Stress Test Report Date: 06-14-2020 Procedure: Pharmacologic stress nuclear imaging study Indications: Chest pain; shortness of breath/dyspnea; pulmonary hypertension Consent: Per the patient Procedure: The patient underwent pharmacologic (Regadenoson 0.4mg ) evaluation with a peak heart rate of 130 beats per minute (75%predicted maximal heart rate) and a peak blood pressure of 186/98 mmHg. The baseline ECG demonstrated sinus rhythm. The peak pharmacologic ECG demonstrated no obvious ECG changes. There was a rare PVC pretest and an occasional PVC in recovery. The patient noted chest discomfort pretest, during pharmacologic infusion, and recovery without significant change. The examination was discontinued secondary to completion of protocol. Impression: 1. Pharmacologic (Regadenoson) evaluation 2. Peak pharmacologic ECG with with no obvious ECG changes. 3. There was a rare PVC pretest and an occasional PVC in recovery. 4. Nuclear images pending Myocardial perfusion imaging study: Technique: The patient was injected with 13.0 millicuries of technetium 99m Cardiolite and subsequently rest SPECT Cardiolite nuclear imaging was obtained in the horizontal long, vertical long, and short axis views. The patient underwent pharmacologic (Regadenoson) evaluation with a peak heart rate of 130 beats per minute (75% percent predicted maximal heart rate) and a peak blood pressure of 186/98 mmHg. The patient was injected with 43.0 millicuries of technetium 99m Cardiolite and subsequently stress SPECT Cardiolite nuclear imaging was obtained in the horizontal long, vertical long, and short axis views. A gated Cardiolite study at peak stress was obtained. Interpretation: Rest and stress SPECT Cardiolite nuclear imaging status post realignment, normalization, and attenuation correction demonstrate relative uniform tracer uptake and myocardial perfusion appearing within normal limits. There is end systolic thickening and brightening. The gated Cardiolite study demonstrates myocardial thickening and inward wall motion. The reported LVEF is 73%. Impression: 1. Rest and stress SPECT Cardiolite nuclear imaging demonstrate relative uniform tracer uptake and myocardial perfusion appearing within normal limits. 2. The gated Cardiolite study reports an LVEF of 73%. This note was generated with [employer] software. It may contain incorrect words, spelling, and punctuation that were not noted in checking the note before signing.
== END ==
PROVIDERS: PCP Family Medicine; Referring Provider Physician Assistant Medical; Visit Provider Physician Assistant Medical
DX: I49.3 Ventricular premature depolarization (principal); R07.9 Chest pain, unspecified
CPT/HCPCS: 78452; 93017; A9500; A4216; J2785

== ENCOUNTER → 2020-07-23 09:53 | Outpatient (CLI) | payer OTHER, MEDICARE, SELFPAY ==
[2020-07-04 09:46] VITALS: BMI 34.6
[2020-07-23 10:51] LABS: Protein, Urine (Random) 102.1 mg/dL (<11.9); Protein:Creat Ratio 2767 mg/g CRE (0-200)
[2020-07-23 11:17] LABS: Anion Gap 8 (5-15); BUN 30 mg/dL (7-18); BUN/Creat Ratio 14.4 RATIO (10-20); Calcium,Total 9.3 mg/dL (8.5-10.1); Chloride 99 mmol/L (98-107); Creatinine, Serum 2.08 mg/dL (0.55-1.02); EST Glomerular Filtration Rate 27 mL/min (>60); Est Glom Filt Rate - Afr Amer 33 mL/min (>60); Glucose 465 mg/dL (74-106); Potassium 4.7 mmol/L (3.5-5.1); Sodium Level 137 mmol/L (136-145)
== END ==
PROVIDERS: PCP Family Medicine; Referring Provider Internal Medicine Nephrology; Visit Provider Internal Medicine Nephrology
DX: N18.32 Chronic kidney disease, stage 3b (principal)
CPT/HCPCS: 36415; 80048; 82570; 84156

== ENCOUNTER 2020-08-01 18:44 | Emergency (ER) | payer OTHER, MEDICARE, SELFPAY ==
[2020-07-04 09:46] VITALS: BMI 34.6
[2020-08-01 18:45] VITALS: BP 127/67; PULSE 111; RESP 16; TEMP 36.7; O2SAT 95; BMI 32.3
--- NOTE | 2020-08-01 18:52 | CT_ITS ---
INDICATION: Kidney Stone EXAMINATION: CT Abdomen And Pelvis W/O Contrast Injection TECHNIQUE: Helically acquired images were obtained of the abdomen and pelvis without the use of IV contrast. A radiation dose optimization technique was used for this scan. Oral contrast: None. COMPARISON: 11/08/2018 FINDINGS: Evaluation of the solid organs and vascular structures is limited without intravenous contrast. Visualized lung bases: Scarring/atelectasis in the left lung base. Liver: Unremarkable Gallbladder: Surgically absent. Spleen: Unremarkable Pancreas: Unremarkable Adrenal Glands: Unremarkable Kidneys: Stable bilateral renal cysts. Persistent bilateral perinephric fat stranding. Vasculature: Unremarkable GI Tract: Unremarkable Lymphadenopathy: None Peritoneum: No ascites. Bladder: Unremarkable Reproductive organs: Unremarkable Bones/Soft tissues: No suspicious osseous or soft tissue lesions CT/Abdomen/Pelvis without Cont IMPRESSION: No acute abnormalities in the abdomen or pelvis. Specifically, no renal or ureteral stones. Nonspecific bilateral perinephric fat stranding. Electronically Signed: James Aaron MD at 20:15 EDT Tel , Service support ,
--- NOTE | 2020-08-01 18:53 | EDS_ITS ---
HPI HPI - Female History of Present Illness Chief Complaint: Flank Pain Informant: patient Narrative Narrative: Patient has right flank pain. It started 2 hours ago. Pain started in the flank area and radiates towards the anterior abdomen. She felt nauseous but had no vomiting or diarrhea. She is a history of kidney stones and this feels similar. She took nothing for it. She has had multiple lithotripsies in the past. She does not currently have a urologist. She denies dysuria or hematuria. No fevers. She has had a cholecystectomy, hernia repair and total hysterectomy in the past. PFSH PFS Medical History Abnormal CT scan, liver Acute kidney injury Anemia of chronic disease Asthma Below-knee amputation of left lower extremity Cellulitis of left foot Cellulitis of right foot Chest pain Cirrhosis of liver COPD (chronic obstructive pulmonary disease) COVID-19 virus detected Depression Diabetes mellitus Diastolic dysfunction GERD (gastroesophageal reflux disease) History of MRSA infection History of stroke Hypomagnesemia IBS (irritable bowel syndrome) Infection of right great toe due to methicillin resistant Staphylococcus aureus (MRSA) Iron (Fe) deficiency anemia Iron deficiency Lymphadenopathy, inguinal Osteomyelitis of right foot Peripheral neuropathy Pulmonary hypertension Right middle lobe pneumonia SLE (systemic lupus erythematosus) Home Medications duloxetine 60 mg PO QHS 11/26/12 [History Last Taken 01/19/17] enalapril maleate 2.5 mg PO BID 11/26/12 [History Last Taken 01/19/17 06:00] ondansetron HCl 8 mg PO Q8H PRN 12/29/12 [History Last Taken 09/01/16] esomeprazole magnesium 40 mg PO BID 05/24/15 [History Last Taken 01/19/17] budesonide 2 puff INHALATION DAILY 10/02/15 [History Last Taken 01/19/17] insulin regular hum U-500 conc 2.2 units SC CONT 10/02/15 [History Last Taken 01/19/17] trazodone 150 mg PO QHS 12/27/15 [History Last Taken 01/18/17] ergocalciferol (vitamin D2) 50,000 unit PO MOWEFR 01/24/16 [History Last Taken 01/19/17] ferrous sulfate 325 mg PO TIDCM 01/24/16 [History Last Taken 01/19/17] tramadol 50 mg PO TID PRN 01/24/16 [History Last Taken 01/19/17] albuterol sulfate 2.5 mg INHALATION Q4H PRN PRN 06/09/16 [History Last Taken 09/01/16] sucralfate 1 gm PO QHS 09/01/16 [History Last Taken 01/18/17] gabapentin 800 mg PO TID 05/19/17 [History Last Taken Unknown] rosuvastatin 10 mg tablet 20 mg PO QHS tab 06/03/17 [History Last Taken Unknown] insulin aspart U-100 See Protocol SC ACHS 07/30/18 [History Last Taken Unknown] magnesium oxide 400 mg PO DAILYCM 07/30/18 [History Last Taken Unknown] metoclopramide HCl 10 mg PO BID 07/30/18 [History Last Taken Unknown] hydroxyzine pamoate 50 mg PO TID PRN 02/20/20 [History Last Taken Unknown] duloxetine 30 mg capsule,delayed release 30 mg PO DAILY cap 05/09/20 [History Last Taken Unknown] dicyclomine 10 mg capsule 10 mg PO BID 05/29/20 [History Last Taken Unknown] fenofibrate 160 mg tablet 160 mg PO DAILY 05/29/20 [History Last Taken Unknown] metoprolol tartrate 25 mg tablet 25 mg PO BID #180 tab 06/21/20 [Rx Last Taken Unknown] fluticasone furoate 100 mcg-vilanterol 25 mcg/dose inhalation powder 1 inh INHALATION DAILY 07/04/20 [History Last Taken Unknown] Allergy/AdvReac Type Severity Reaction Status Date / Time atorvastatin [From Lipitor] AdvReac Severe Vomiting Verified 08/01/20 18:47 oxycodone HCl [From Percocet] AdvReac Severe Vomiting Verified 08/01/20 18:47 Family History Mother Hypertension Grandmother Hypertension Diabetes Surgical History History of amputation of hallux History of carpal tunnel surgery History of cholecystectomy History of eye surgery History of hernia repair History of hysterectomy History of liver biopsy History of lymph node biopsy History of temporal artery biopsy History of tubal ligation Partial nontraumatic amputation of right foot Status post transmetatarsal amputation of right foot Social History Smoking Status: Never smoker alcohol intake: current ROS ROS ED Constitutional Constitutional ED: Denies chills or fever(s) Eyes Eyes: Denies blurry vision, change in vision or diplopia ENT ENT ED: Denies ear pain, rhinorrhea or sore throat Cardiovascular Cardiovascular: Denies chest pain or palpitations Respiratory/Chest Respiratory/Chest: Denies cough, dyspnea or sputum Gastrointestinal Gastrointestinal: Reports nausea Genitourinary Genitourinary ED: Reports other Details: Flank pain Musculoskeletal Musculoskeletal: Denies back pain or neck pain Integumentary Denies change in pigmentation or rash Neurologic Neurologic: Denies headache(s), numbness or weakness Psychiatric Psychiatric: Denies anxiety or depression Endocrine Endocrinology: Denies polydipsia or polyuria EXAM Physical Exam Const Vital Signs: 08/01/20 18:45 Temperature 98.1 F Temperature Source Temporal Pulse Rate 111 H Respiratory Rate 16 Blood Pressure 127/67 H Blood Pressure Mean 87 Pulse Ox 95 Oxygen Delivery Method Room Air Positive well nourished and well developed General Appearance ED: well developed and NAD HEENT Reports moist mucous membranes normocephalic and atraumatic; Negative for tenderness Eyes PERRL and EOMs intact bilaterally Neck supple and no JVD Chest Wall Chest: Negative for tenderness Resp normal respiratory effort and clear to auscultation bilaterally Effort and Inspection: Negative for respiratory distress Cardio regular rate, regular rhythm and no murmurs Rate: regular rate Rhythm: regular rhythm GI soft to palpation and non-distended GI Narrative: Tenderness on the right side into the right flank area Palpation: soft Back/Spine no CVA tenderness and no thoracic nor lumbar tenderness Cervical Spine: Negative for cervical spine tenderness Extremity normal to inspection and full ROM General Extremety ED: Negative for tenderness Neuro oriented x3, CN's II-XII intact bilaterally and no sensory deficits noted Sensorium / Orientation: awake and alert Motor Exam: strength 5/5 throughout Psych mental status grossly normal Skin no rashes or lesions noted MDM MDM MDM Narrative Medical decision making narrative: Patient was given Toradol. Laboratory studies show a normal white blood cell count. Hemoglobin is 10 which is baseline. Her BUN is 31 and creatinine is 2.27 which is also near her baseline. Urinalysis has 100 leukocyte esterase, 0-5 red blood cells and 5-10 white blood cells. There are 10-25 squamous epithelial cells. She does have some yeast. I will give her 1 dose of Diflucan for this. Her CAT scan does not reveal anything acute. She was given a dose of morphine and now she is feeling better. Patient will be discharged. I do not see any acute causes for her pain at this time. She will continue her home medications and will call her doctor for follow-up. Lab Data Labs: Laboratory Results - last 24 hr 08/01/20 08/01/20 08/01/20 19:05 19:05 19:39 WBC 8.0 RBC 3.61 L Hgb 10.0 L Hct 30.3 L MCV 83.9 MCH 27.7 MCHC 33.0 RDW Std Deviation 44.2 H RDW Coeff of Michael 14.5 Plt Count 290 MPV 10.4 Immature Gran % (Auto) 1.000 H Neut % (Auto) 72.3 H Lymph % (Auto) 18.7 L [place] % (Auto) 6.3 Eos % (Auto) 1.4 Baso % (Auto) 0.3 Absolute Neuts (auto) 5.8 Absolute Lymphs (auto) 1.49 Nucleated RBC % 0 Sodium 135 L Potassium 4.1 Chloride 100 Carbon Dioxide 28.0 Anion Gap 7 BUN 31 H Creatinine 2.27 H Estim Creat Clear Calc 28.06 Est GFR (MDRD) Af Amer 29 L Est GFR (MDRD) Non-Af 24 L BUN/Creatinine Ratio 13.7 Glucose 232 H Calcium 10.8 H Urine Color Yellow Urine Clarity Cloudy Urine pH 5.0 Ur Specific [place] 1.020 Urine Protein 500 H Urine Glucose (UA) 1000 H Urine Ketones 5 H Urine Occult Blood 50 H Urine Nitrite Negative Urine Bilirubin Negative Urine Urobilinogen Normal Ur Leukocyte Esterase 100 H Urine RBC 0-5 SEEN Urine WBC 5-10 SEEN Ur Squamous Epith Cells 10-25 SEEN Urine Bacteria RARE Urine Mucus 0 SEEN Urine Yeast 1+ Radiography Diagnostic Testing: Radiology Impression Abdomen/Pelvis CT 08/01/20 18:52 IMPRESSION: No acute abnormalities in the abdomen or pelvis. Specifically, no renal or ureteral stones. Nonspecific bilateral perinephric fat stranding. Electronically Signed: James Aaron MD at 20:15 EDT Tel , Service support , Discharge Plan Triage Chief Complaint: Flank Pain ED Provider: Lito Celeste Dx/Rx/DC Orders Clinical Impression: Acute right flank pain Instructions: ED Flank Pain, Uncertain Cause Prescriptions: No Action dicyclomine 10 mg capsule 10 mg PO BID RF: 0 fenofibrate 160 mg tablet 160 mg PO DAILY RF: 0 Breo Ellipta 100-25 mcg/dose blister with device 1 inh inhalation DAILY RF: 0 enalapril maleate 2.5 MG tablet 2.5 mg PO BID RF: 0 duloxetine 60 MG capsule 60 mg PO QHS RF: 0 ondansetron HCl 8 MG tablet 8 mg PO Q8H PRN (Reason: Nausea) RF: 0 esomeprazole magnesium 40 MG capsule 40 mg PO BID RF: 0 budesonide 1 PUFF inhaler 2 puff INHALATION DAILY RF: 0 insulin regular hum U-500 conc 20 ML solution 2.2 units SC CONT RF: 0 trazodone 100 MG tablet 150 mg PO QHS RF: 0 tramadol 50 MG tablet 50 mg PO TID PRN (Reason: Pain) RF: 0 ferrous sulfate 325 MG tablet 325 mg PO TIDCM RF: 0 ergocalciferol (vitamin D2) 50,000 UNIT capsule 50,000 unit PO MOWEFR RF: 0 albuterol sulfate 2.5 MG/3 ML solution for nebulization 2.5 mg INHALATION Q4H PRN PRN (Reason: Wheezing) RF: 0 gabapentin 800 MG tablet 800 mg PO TID RF: 0 rosuvastatin 10 mg tablet 20 mg PO QHS RF: 0 sucralfate 1 GM tablet 1 gm PO QHS RF: 0 magnesium oxide 400 MG tablet 400 mg PO DAILYCM RF: 0 metoclopramide HCl 10 MG tablet 10 mg PO BID RF: 0 insulin aspart U-100 100 UNITS/ML insulin pen See Protocol units SC ACHS RF: 0 duloxetine 30 mg capsule,delayed release(DR/EC) 30 mg PO DAILY RF: 0 hydroxyzine pamoate 50 MG capsule 50 mg PO TID PRN (Reason: Anxiety) RF: 0 metoprolol tartrate 25 mg tablet 25 mg PO BID Qty: 180 RF: 3 Primary Care Provider: Johann Jimenez Referrals: Johann Jimenez MD [Primary Care Provider] - Disposition Disposition: Home, self care
[2020-08-01] MEDS: Ketorolac 15 MG/ML Vial IV (19:10)
[2020-08-01] MEDS: 0.9% Normal Saline 1,000 ML 250 ML IV (19:10)
[2020-08-01] MEDS: Ondansetron 4 MG/2 ML Vial IV (19:11)
[2020-08-01 19:12] LABS: Absolute Lymphocyte Count 1.49 X10^3/uL (0.83-4.51); Absolute Neutrophil Count 5.8 X10^3/uL (2.0-7.7); Basophil# 0.02 X10^3/uL; Basophil% 0.3 % (0-1); Eosinophil# 0.11 X10^3/uL; Eosinophils% 1.4 % (0-5); Hematocrit 30.3 % (37-47); Lymphocyte # 1.49 X10^3/ul (0.83-4.51); Lymphocyte % 18.7 % (19-41); Mean Corpuscular Hgb 27.7 pg (27.0-32.0); Mean Corpuscular Volume 83.9 fL (81-99); Mean Platelet Vol. 10.4 fl (6.2-12.0); Monocyte% 6.3 % (0-10); NRBC Flagged by Analyzer 0 % (0-5); Neutrophil # 5.77 X10^3/uL (2.7-7.7); Neutrophil % 72.3 % (47-70); Platelet Count 290 K/mm3 (150-450); RBC Distribution Width CV 14.5 % (11.6-14.6); RBC Distribution Width SD 44.2 fl (35.1-43.9); Red Blood Count 3.61 M/mm3 (4.2-5.4)
[2020-08-01 19:26] LABS: Anion Gap 7 (5-15); BUN 31 mg/dL (7-18); BUN/Creat Ratio 13.7 RATIO (10-20); Calcium,Total 10.8 mg/dL (8.5-10.1); Chloride 100 mmol/L (98-107); Creatinine, Serum 2.27 mg/dL (0.55-1.02); EST Glomerular Filtration Rate 24 mL/min (>60); Est Glom Filt Rate - Afr Amer 29 mL/min (>60); Estimated Creatinine Clearance 28.06 ml/min; Glucose 232 mg/dL (74-106); Potassium 4.1 mmol/L (3.5-5.1); Sodium Level 135 mmol/L (136-145)
[2020-08-01] MEDS: Morphine 4 MG/ML Syringe IV (19:41)
[2020-08-01 19:45] LABS: Mucous, Urine 0 SEEN /hpf (<or=2+)
[2020-08-01 19:47] LABS: Color, Urine Yellow (Yellow); Glucose, Dipstick 1000 mg/dl (Normal); Ketone-Dipstick 5 mg/dl (Negative); Leukocyte Esterase-Dipstick 100 /ul (Negative); Nitrite-Dipstick Negative (Negative); Occult Blood-Urine 50 /ul (Negative); Protein-Dipstick 500 mg/dl (Negative); Urine Bilirubin Dipstick Negative (Negative); Urine Clarity Cloudy (Clear); Urine Urobilinogen Normal (Normal)
[2020-08-01 19:52] LABS: Squamous Epithelial Cells - UA 10-25 SEEN /hpf (5-10); White Blood Cells 5-10 SEEN /hpf (0-5)
[2020-08-01 19:53] LABS: Yeast-Urine 1+ /hpf (None Seen)
[2020-08-01 19:54] LABS: Bacteria RARE /hpf (None Seen); Red Blood Cells-Urine 0-5 SEEN /hpf (0-5)
[2020-08-01 20:33] VITALS: BP 127/67; BP 128/76; PULSE 111; PULSE 89; RESP 16; TEMP 36.7; O2SAT 95; O2SAT 99
== END 2020-08-01 20:35 | disposition home or self-care (01) ==
PROVIDERS: Emergency Provider Emergency Medicine; PCP Family Medicine
DX: R10.9 Unspecified abdominal pain (principal); D63.8 Anemia in other chronic diseases classified elsewhere; E11.40 Type 2 diabetes mellitus with diabetic neuropathy, unspecified; E83.42 Hypomagnesemia; F32.9 Major depressive disorder, single episode, unspecified; I27.20 Pulmonary hypertension, unspecified; K21.9 Gastro-esophageal reflux disease without esophagitis; K58.9 Irritable bowel syndrome, unspecified; M32.9 Systemic lupus erythematosus, unspecified; K74.60 Unspecified cirrhosis of liver; J44.9 Chronic obstructive pulmonary disease, unspecified; Z86.14 Personal history of Methicillin resistant Staphylococcus aureus infection; Z86.73 Personal history of transient ischemic attack (TIA), and cerebral infarction without residual deficits; Z87.448 Personal history of other diseases of urinary system; Z86.16 Personal history of COVID-19; Z87.01 Personal history of pneumonia (recurrent); Z87.442 Personal history of urinary calculi; Z89.512 Acquired absence of left leg below knee; Z79.4 Long term (current) use of insulin; Z79.899 Other long term (current) drug therapy
CPT/HCPCS: 74176; 80048; 81001; 85025; 96361; 96374; 96375; 99284; J7030; A4216; J2405

== ENCOUNTER 2020-10-19 12:49 | Emergency (ER) | payer OTHER, MEDICARE, SELFPAY ==
[2020-10-19 12:50] VITALS: BP 201/114; PULSE 5; RESP 18; TEMP 36.1; O2SAT 97; BMI 33.0
[2020-10-19 13:15] VITALS: BP 201/114; PULSE 5; RESP 18; TEMP 36.1; O2SAT 97
--- NOTE | 2020-10-19 14:02 | EDS_ITS ---
HPI History of Present Illness Chief Complaint: General Illness Detail of Chief Complaint: Vomiting and diarrhea that started yesterday Informant: patient Narrative Narrative: Patient presents to the emergency department complaint of episodes of vomiting and diarrhea. Patient had about 4-5 episodes of watery stool yesterday. Patient states she has been throwing up every 1/2 hour to 1 hour. She describes abdominal discomfort and soreness due to the all the vomiting. She denies urinary symptoms. Patient had fever intermittently up to 102 at home. Patient states that she had Covid in February. She does describe a slight cough for about a week. Patient denies other sick contacts. Patient does have history of COPD, asthma, IBS, and history of SLE. Prior similar symptoms: No PFSH PFSH Medical History Abnormal CT scan, liver Acute kidney injury Anemia of chronic disease Asthma Below-knee amputation of left lower extremity Cellulitis of left foot Cellulitis of right foot Chest pain Cirrhosis of liver COPD (chronic obstructive pulmonary disease) COVID-19 virus detected Depression Diabetes mellitus Diastolic dysfunction GERD (gastroesophageal reflux disease) History of MRSA infection History of stroke Hypomagnesemia IBS (irritable bowel syndrome) Infection of right great toe due to methicillin resistant Staphylococcus aureus (MRSA) Iron (Fe) deficiency anemia Iron deficiency Lymphadenopathy, inguinal Osteomyelitis of right foot Peripheral neuropathy Pulmonary hypertension Right middle lobe pneumonia SLE (systemic lupus erythematosus) Home Medications duloxetine 60 mg PO QHS 11/26/12 [History Last Taken 01/19/17] enalapril maleate 2.5 mg PO BID 11/26/12 [History Last Taken 01/19/17 06:00] ondansetron HCl 8 mg PO Q8H PRN 12/29/12 [History Last Taken 09/01/16] esomeprazole magnesium 40 mg PO BID 05/24/15 [History Last Taken 01/19/17] budesonide 2 puff INHALATION DAILY 10/02/15 [History Last Taken 01/19/17] insulin regular hum U-500 conc 2.2 units SC CONT 10/02/15 [History Last Taken 01/19/17] trazodone 150 mg PO QHS 12/27/15 [History Last Taken 01/18/17] ergocalciferol (vitamin D2) 50,000 unit PO MOWEFR 01/24/16 [History Last Taken 01/19/17] ferrous sulfate 325 mg PO TIDCM 01/24/16 [History Last Taken 01/19/17] tramadol 50 mg PO TID PRN 01/24/16 [History Last Taken 01/19/17] albuterol sulfate 2.5 mg INHALATION Q4H PRN PRN 06/09/16 [History Last Taken 09/01/16] sucralfate 1 gm PO QHS 09/01/16 [History Last Taken 01/18/17] gabapentin 800 mg PO TID 05/19/17 [History Last Taken Unknown] rosuvastatin 10 mg tablet 20 mg PO QHS tab 06/03/17 [History Last Taken Unknown] insulin aspart U-100 See Protocol SC ACHS 07/30/18 [History Last Taken Unknown] magnesium oxide 400 mg PO DAILYCM 07/30/18 [History Last Taken Unknown] metoclopramide HCl 10 mg PO BID 07/30/18 [History Last Taken Unknown] hydroxyzine pamoate 50 mg PO TID PRN 02/20/20 [History Last Taken Unknown] duloxetine 30 mg capsule,delayed release 30 mg PO DAILY cap 05/09/20 [History Last Taken Unknown] dicyclomine 10 mg capsule 10 mg PO BID 05/29/20 [History Last Taken Unknown] fenofibrate 160 mg tablet 160 mg PO DAILY 05/29/20 [History Last Taken Unknown] metoprolol tartrate 25 mg tablet 25 mg PO BID #180 tab 06/21/20 [Rx Last Taken Unknown] fluticasone furoate 100 mcg-vilanterol 25 mcg/dose inhalation powder 1 inh INHALATION DAILY 07/04/20 [History Last Taken Unknown] ondansetron 4 mg PO Q8H PRN PRN #10 tab 10/19/20 [Rx Last Taken Unknown] Allergy/AdvReac Type Severity Reaction Status Date / Time atorvastatin [From Lipitor] AdvReac Severe Vomiting Verified 10/19/20 13:28 oxycodone HCl [From Percocet] AdvReac Severe Vomiting Verified 10/19/20 13:28 Family History Mother Hypertension Grandmother Hypertension Diabetes Surgical History History of amputation of hallux History of carpal tunnel surgery History of cholecystectomy History of eye surgery History of hernia repair History of hysterectomy History of liver biopsy History of lymph node biopsy History of temporal artery biopsy History of tubal ligation Partial nontraumatic amputation of right foot Status post transmetatarsal amputation of right foot Social History Smoking Status: Never smoker alcohol intake: current ROS ROS ED Constitutional Constitutional ED: Reports systems reviewed and no addt'l complaints, except as documented; Denies body ache(s), change in weight or chills Eyes Eyes: Denies acute decrease in peripheral vision, change in vision, double vision or loss of vision ENT ENT ED: Reports none; Denies ear pain, lip swelling, loss taste/smell, neck pain, otalgia or sore throat Cardiovascular Cardiovascular: Reports none; Denies abdominal pain, chest pain with activity, leg edema, lightheadedness, palpitations, rapid heart rate or syncope Respiratory/Chest Respiratory/Chest: Reports none; Denies change in mental status, dry cough, dyspnea, hemoptysis, shortness of breath at rest or shortness of breath with exertion Gastrointestinal Gastrointestinal: Reports none, diarrhea, nausea and vomiting; Denies abdominal pain, change in stool character, hematemesis, hematochezia, melena or rectal bleeding Genitourinary Genitourinary ED: Reports none; Denies abdominal discomfort, anuria, dysuria, genital pain or polyuria Musculoskeletal Musculoskeletal: Reports none; Denies arthralgias, back pain, difficulty walking, extremity pain, muscle weakness or myalgias Integumentary Reports none; Denies abscess or rash Neurologic Neurologic: Reports none; Denies abnormal gait, confusion, focal weakness, frequent falls, headache(s), loss of vision, numbness, paresthesias, radicular pain, vertigo or weakness Psychiatric Psychiatric: Reports systems reviewed and no addt'l complaints, except as documented and none; Denies behavioral changes, confusion, difficulty concentrating, hallucinations, suicidal ideation, tactile hallucinations or visual hallucinations Endocrine Endocrinology: Denies none, cold intolerance, excessive sweating, fatigue or heat intolerance Hematologic/Lymphatic Hematologic/Lymphatic: Reports none; Denies anemia, easy bleeding or easy bruising Allergic/Immunologic Allergic/Immunologic ED: Denies as per HPI, none, lip swelling, mouth swelling, throat swelling, tongue swelling or hives EXAM Physical Exam Const Vital Signs: 10/19/20 12:50 10/19/20 13:15 10/19/20 13:25 Temperature 96.9 F L 96.9 F L Temperature Source Temporal Temporal Pulse Rate 5 L 5 L Respiratory Rate 18 18 Respiratory Effort Normal Non-Labored Respiratory Pattern Normal Blood Pressure 201/114 H 201/114 H Blood Pressure Mean 143 143 Pulse Ox 97 97 Oxygen Delivery Method Room Air Room Air 10/19/20 15:14 Temperature 98.1 F Temperature Source Oral Pulse Rate 86 Respiratory Rate 17 Respiratory Effort Respiratory Pattern Blood Pressure 138/77 H Blood Pressure Mean 97 Pulse Ox 96 Oxygen Delivery Method Room Air Positive well nourished and well developed General Appearance ED: well developed and NAD HEENT Reports TM's clear and moist mucous membranes normocephalic and atraumatic; Negative for trauma or tenderness Tympanic Membrane ED: Yes TM's clear Eyes PERRL and EOMs intact bilaterally General Eye ED: Negative for pale conjunctiva or scleral icterus Neck no lymphadenopathy, supple and no JVD General: Negative for tenderness Chest Wall inspection of chest normal and palpation of chest normal Chest: Negative for tenderness Resp normal respiratory effort and clear to auscultation bilaterally Effort and Inspection: Negative for respiratory distress or pain with movement Auscultation: Negative for rhonchi, wheezes or diminished lung sounds Cardio regular rate, regular rhythm, S1 normal heart sound, S2 normal heart sound and no murmurs Peripheral Pulses: pulses 2+ throughout GI normal to inspection, nondistended, normoactive bowel sounds, soft to palpation, non-tender, non-distended and no masses Back/Spine no CVA tenderness and no thoracic nor lumbar tenderness Extremity normal to inspection General Extremety ED: Negative for edema General Extremity: Negative for edema Neuro oriented x3, CN's II-XII intact bilaterally, no sensory deficits noted and gait normal Sensorium / Orientation: awake, alert, oriented to person, oriented to place and oriented to time Motor Exam: strength 5/5 throughout and strength abnormal Psych mental status grossly normal Skin no rashes or lesions noted and no wounds MDM MDM MDM Narrative Medical decision making narrative: IV line established patient was given a liter of the same fluid bolus. Patient was given Zofran 4 mg IV. Patient symptomatically felt improved. Her work-up in the department is otherwise unremarkable. Patient will be given a prescription for Zofran for home. I suspect she likely has a viral gastroenteritis. Patient to return if persistent vomiting, worsening pain, fevers, dehydration, or condition should worsen anyway. Lab Data Attestation: I reviewed the patient's lab results. Labs: Laboratory Results - last 24 hr 10/19/20 10/19/20 10/19/20 14:20 14:20 15:10 WBC 6.5 RBC 3.63 L Hgb 10.2 L Hct 30.8 L MCV 84.8 MCH 28.1 MCHC 33.1 RDW Std Deviation 42.0 RDW Coeff of Michael 13.6 Plt Count 207 MPV 10.3 Immature Gran % (Auto) 1.400 H Neut % (Auto) 84.4 H Lymph % (Auto) 10.6 L [place] % (Auto) 2.9 Eos % (Auto) 0.5 Baso % (Auto) 0.2 Absolute Neuts (auto) 5.5 Absolute Lymphs (auto) 0.69 L Nucleated RBC % 0 Sodium 138 Potassium 4.1 Chloride 104 Carbon Dioxide 28.0 Anion Gap 6 BUN 22 H Creatinine 1.44 H Estim Creat Clear Calc 44.24 Est GFR (MDRD) Af Amer 50 L Est GFR (MDRD) Non-Af 41 L BUN/Creatinine Ratio 15.3 Glucose 229 H Calcium 9.5 Total Bilirubin 0.40 AST 34 ALT 34 Alkaline Phosphatase 73 Total Protein 8.0 Albumin 3.1 L Globulin 4.9 H Albumin/Globulin Ratio 0.6 L Lipase 266 Urine Color Yellow Urine Clarity Clear Urine pH 7.0 Ur Specific [place] 1.010 Urine Protein 500 H Urine Glucose (UA) 1000 H Urine Ketones 5 H Urine Occult Blood 50 H Urine Nitrite Negative Urine Bilirubin Negative Urine Urobilinogen Normal Ur Leukocyte Esterase Negative Urine RBC 0-5 SEEN Urine WBC 0 SEEN Ur Squamous Epith Cells 0 SEEN Urine Bacteria 0 SEEN Urine Mucus 0 SEEN Discharge Plan Triage Chief Complaint: General Illness ED Provider: Lidya Ordoñez Dx/Rx/DC Orders Clinical Impression: Viral gastroenteritis Instructions: ED Gastroenteritis, Viral (Adult) Prescriptions: New ondansetron [ondansetron] 4 MG tablet 4 mg PO Q8H PRN PRN (Reason: Nausea) Qty: 10 RF: 0 No Action dicyclomine 10 mg capsule 10 mg PO BID RF: 0 fenofibrate 160 mg tablet 160 mg PO DAILY RF: 0 Breo Ellipta 100-25 mcg/dose blister with device 1 inh inhalation DAILY RF: 0 enalapril maleate 2.5 MG tablet 2.5 mg PO BID RF: 0 duloxetine 60 MG capsule 60 mg PO QHS RF: 0 ondansetron HCl 8 MG tablet 8 mg PO Q8H PRN (Reason: Nausea) RF: 0 esomeprazole magnesium 40 MG capsule 40 mg PO BID RF: 0 budesonide 1 PUFF inhaler 2 puff INHALATION DAILY RF: 0 insulin regular hum U-500 conc 20 ML solution 2.2 units SC CONT RF: 0 trazodone 100 MG tablet 150 mg PO QHS RF: 0 tramadol 50 MG tablet 50 mg PO TID PRN (Reason: Pain) RF: 0 ferrous sulfate 325 MG tablet 325 mg PO TIDCM RF: 0 ergocalciferol (vitamin D2) 50,000 UNIT capsule 50,000 unit PO MOWEFR RF: 0 albuterol sulfate 2.5 MG/3 ML solution for nebulization 2.5 mg INHALATION Q4H PRN PRN (Reason: Wheezing) RF: 0 gabapentin 800 MG tablet 800 mg PO TID RF: 0 rosuvastatin 10 mg tablet 20 mg PO QHS RF: 0 sucralfate 1 GM tablet 1 gm PO QHS RF: 0 magnesium oxide 400 MG tablet 400 mg PO DAILYCM RF: 0 metoclopramide HCl 10 MG tablet 10 mg PO BID RF: 0 insulin aspart U-100 100 UNITS/ML insulin pen See Protocol units SC ACHS RF: 0 duloxetine 30 mg capsule,delayed release(DR/EC) 30 mg PO DAILY RF: 0 hydroxyzine pamoate 50 MG capsule 50 mg PO TID PRN (Reason: Anxiety) RF: 0 metoprolol tartrate 25 mg tablet 25 mg PO BID Qty: 180 RF: 3 Primary Care Provider: Johann Jimenez Referrals: Johann Jimenez MD [Primary Care Provider] - 3-5 Days Disposition Disposition: Home, Self Care
[2020-10-19] MEDS: Ondansetron 4 MG/2 ML Vial IV (14:06)
[2020-10-19] MEDS: 0.9% Normal Saline 1,000 ML 1000 ML IV (14:06)
[2020-10-19 14:29] LABS: Absolute Lymphocyte Count 0.69 X10^3/uL (0.83-4.51); Absolute Neutrophil Count 5.5 X10^3/uL (2.0-7.7); Basophil# 0.01 X10^3/uL; Basophil% 0.2 % (0-1); Eosinophil# 0.03 X10^3/uL; Eosinophils% 0.5 % (0-5); Hematocrit 30.8 % (37-47); Hemoglobin 10.2 g/dL (12.0-15.0); Lymphocyte # 0.69 X10^3/ul (0.83-4.51); Lymphocyte % 10.6 % (19-41); Mean Corp Hgb Conc 33.1 g/dL (32-36); Mean Corpuscular Hgb 28.1 pg (27.0-32.0); Mean Corpuscular Volume 84.8 fL (81-99); Mean Platelet Vol. 10.3 fl (6.2-12.0); Monocyte# 0.19 X10^3/uL; Monocyte% 2.9 % (0-10); NRBC Flagged by Analyzer 0 % (0-5); Neutrophil # 5.48 X10^3/uL (2.7-7.7); Neutrophil % 84.4 % (47-70); Platelet Count 207 K/mm3 (150-450); RBC Distribution Width CV 13.6 % (11.6-14.6); Red Blood Count 3.63 M/mm3 (4.2-5.4); White Blood Count 6.5 K/mm3 (4.4-11.0)
[2020-10-19] MEDS: Ketorolac 30 MG/ML Syringe IV (14:40)
[2020-10-19 14:47] LABS: ALB/GLOB Ratio 0.6 RATIO (0.9-2.4); AST(SGOT) 34 U/L (15-37); Alanine Aminotransfer ALT/SGPT 34 U/L (13-56); Albumin, Serum 3.1 g/dL (3.2-5.0); Alkaline Phosphatase 73 U/L (45-117); Anion Gap 6 (5-15); BUN 22 mg/dL (7-18); BUN/Creat Ratio 15.3 RATIO (10-20); Calcium,Total 9.5 mg/dL (8.5-10.1); Chloride 104 mmol/L (98-107); Creatinine, Serum 1.44 mg/dL (0.55-1.02); EST Glomerular Filtration Rate 41 mL/min (>60); Est Glom Filt Rate - Afr Amer 50 mL/min (>60); Estimated Creatinine Clearance 44.24 ml/min; Globulin 4.9 g/dL (2.2-4.2); Glucose 229 mg/dL (74-106); Lipase 266 U/L (73-393); Potassium 4.1 mmol/L (3.5-5.1); Sodium Level 138 mmol/L (136-145)
[2020-10-19 15:14] VITALS: BP 138/77; PULSE 86; RESP 17; TEMP 36.7; O2SAT 96
[2020-10-19 15:18] LABS: Bacteria 0 SEEN /hpf (None Seen); Mucous, Urine 0 SEEN /hpf (<or=2+); Squamous Epithelial Cells - UA 0 SEEN /hpf (5-10); White Blood Cells 0 SEEN /hpf (0-5)
[2020-10-19 15:19] LABS: Color, Urine Yellow (Yellow); Glucose, Dipstick 1000 mg/dl (Normal); Ketone-Dipstick 5 mg/dl (Negative); Leukocyte Esterase-Dipstick Negative /ul (Negative); Nitrite-Dipstick Negative (Negative); Occult Blood-Urine 50 /ul (Negative); Protein-Dipstick 500 mg/dl (Negative); Urine Bilirubin Dipstick Negative (Negative); Urine Clarity Clear (Clear); Urine Urobilinogen Normal (Normal)
[2020-10-19 15:24] LABS: Red Blood Cells-Urine 0-5 SEEN /hpf (0-5)
== END 2020-10-19 16:20 | disposition home or self-care (01) ==
PROVIDERS: Emergency Provider Emergency Medicine; PCP Family Medicine
DX: A08.4 Viral intestinal infection, unspecified (principal); E11.40 Type 2 diabetes mellitus with diabetic neuropathy, unspecified; F32.9 Major depressive disorder, single episode, unspecified; I27.20 Pulmonary hypertension, unspecified; K21.9 Gastro-esophageal reflux disease without esophagitis; D50.9 Iron deficiency anemia, unspecified; K58.9 Irritable bowel syndrome, unspecified; D63.8 Anemia in other chronic diseases classified elsewhere; K74.60 Unspecified cirrhosis of liver; M32.9 Systemic lupus erythematosus, unspecified; J44.9 Chronic obstructive pulmonary disease, unspecified; Z86.14 Personal history of Methicillin resistant Staphylococcus aureus infection; Z87.01 Personal history of pneumonia (recurrent); Z86.16 Personal history of COVID-19; Z86.73 Personal history of transient ischemic attack (TIA), and cerebral infarction without residual deficits; Z79.4 Long term (current) use of insulin; Z79.899 Other long term (current) drug therapy
CPT/HCPCS: 36415; 80053; 81001; 83690; 85025; 87426; 96361; 96374; 96375; 99283; J7030; A4216; J2405

== ENCOUNTER 2020-10-20 09:28 | Emergency (ER) | payer OTHER, MEDICARE, SELFPAY ==
[2020-10-20 09:29] VITALS: BP 179/122; PULSE 98; RESP 22; TEMP 35.7; O2SAT 98; BMI 33.0
--- NOTE | 2020-10-20 10:10 | EDS_ITS ---
HPI History of Present Illness Chief Complaint: Nausea/Vomiting Informant: patient and spouse/S.O. Narrative Narrative: 50-year-old female presents with vomiting. Patient has episodes where she vomits and asked to come to the emergency room and gets better after s ome IV fluids and Zofran. Her reports that she became ill Thday evening and they came to emergency yesterday. She had negative labs was felt to possibly be viral gastroenteritis. She states that she is vomiting up her dissolvable Zofran. The patient reports that her stools are brown diarrhea. She reported a fever earlier in the week. She notes lower abdominal discomfort. [facility] Medical History Abnormal CT scan, liver Acute kidney injury Anemia of chronic disease Asthma Below-knee amputation of left lower extremity Cellulitis of left foot Cellulitis of right foot Chest pain Cirrhosis of liver COPD (chronic obstructive pulmonary disease) COVID-19 virus detected Depression Diabetes mellitus Diastolic dysfunction GERD (gastroesophageal reflux disease) History of MRSA infection History of stroke Hypomagnesemia IBS (irritable bowel syndrome) Infection of right great toe due to methicillin resistant Staphylococcus aureus (MRSA) Iron (Fe) deficiency anemia Iron deficiency Lymphadenopathy, inguinal Osteomyelitis of right foot Peripheral neuropathy Pulmonary hypertension Right middle lobe pneumonia SLE (systemic lupus erythematosus) Home Medications duloxetine 60 mg PO QHS 11/26/12 [History Last Taken 01/19/17] enalapril maleate 2.5 mg PO BID 11/26/12 [History Last Taken 01/19/17 06:00] ondansetron HCl 8 mg PO Q8H PRN 12/29/12 [History Last Taken 09/01/16] esomeprazole magnesium 40 mg PO BID 05/24/15 [History Last Taken 01/19/17] budesonide 2 puff INHALATION DAILY 10/02/15 [History Last Taken 01/19/17] insulin regular hum U-500 conc 2.2 units SC CONT 10/02/15 [History Last Taken 01/19/17] trazodone 150 mg PO QHS 12/27/15 [History Last Taken 01/18/17] ergocalciferol (vitamin D2) 50,000 unit PO MOWEFR 01/24/16 [History Last Taken 01/19/17] ferrous sulfate 325 mg PO TIDCM 01/24/16 [History Last Taken 01/19/17] tramadol 50 mg PO TID PRN 01/24/16 [History Last Taken 01/19/17] albuterol sulfate 2.5 mg INHALATION Q4H PRN PRN 06/09/16 [History Last Taken 09/01/16] sucralfate 1 gm PO QHS 09/01/16 [History Last Taken 01/18/17] gabapentin 800 mg PO TID 05/19/17 [History Last Taken Unknown] rosuvastatin 10 mg tablet 20 mg PO QHS tab 06/03/17 [History Last Taken Unknown] insulin aspart U-100 See Protocol SC ACHS 07/30/18 [History Last Taken Unknown] magnesium oxide 400 mg PO DAILYCM 07/30/18 [History Last Taken Unknown] metoclopramide HCl 10 mg PO BID 07/30/18 [History Last Taken Unknown] hydroxyzine pamoate 50 mg PO TID PRN 02/20/20 [History Last Taken Unknown] duloxetine 30 mg capsule,delayed release 30 mg PO DAILY cap 05/09/20 [History Last Taken Unknown] dicyclomine 10 mg capsule 10 mg PO BID 05/29/20 [History Last Taken Unknown] fenofibrate 160 mg tablet 160 mg PO DAILY 05/29/20 [History Last Taken Unknown] metoprolol tartrate 25 mg tablet 25 mg PO BID #180 tab 06/21/20 [Rx Last Taken Unknown] fluticasone furoate 100 mcg-vilanterol 25 mcg/dose inhalation powder 1 inh INHALATION DAILY 07/04/20 [History Last Taken Unknown] ondansetron 4 mg PO Q8H PRN PRN #10 tab 10/19/20 [Rx Last Taken Unknown] metoclopramide HCl [Reglan] 10 mg PO Q6H PRN #20 tab 10/20/20 [Rx Last Taken Unknown] Allergy/AdvReac Type Severity Reaction Status Date / Time atorvastatin [From Lipitor] AdvReac Severe Vomiting Verified 10/20/20 09:32 oxycodone HCl [From Percocet] AdvReac Severe Vomiting Verified 10/20/20 09:32 Family History Mother Hypertension Grandmother Hypertension Diabetes Surgical History History of amputation of hallux History of carpal tunnel surgery History of cholecystectomy History of eye surgery History of hernia repair History of hysterectomy History of liver biopsy History of lymph node biopsy History of temporal artery biopsy History of tubal ligation Partial nontraumatic amputation of right foot Status post transmetatarsal amputation of right foot Social History Smoking Status: Never smoker alcohol intake: current ROS ROS ED Constitutional Constitutional ED: Denies chills or weight loss Eyes Eyes: Denies change in vision or diplopia ENT ENT ED: Denies ear pain, rhinorrhea or sore throat Cardiovascular Cardiovascular: Denies chest pain, orthopnea, palpitations or racing heartbeat Respiratory/Chest Respiratory/Chest: Denies cough, dyspnea or orthopnea Gastrointestinal Gastrointestinal: Reports abdominal pain, diarrhea, nausea and vomiting Genitourinary Genitourinary ED: Denies dysuria, hematuria or urinary frequency Musculoskeletal Musculoskeletal: Denies arthralgias or myalgias Integumentary Denies abscess or rash Neurologic Neurologic: Denies headache(s) or weakness Psychiatric Psychiatric: Denies anxiety, depression, suicidal ideation or suicidal thoughts Endocrine Endocrinology: Denies polydipsia, polyphagia or polyuria Allergic/Immunologic Allergic/Immunologic ED: Denies mouth swelling, tongue swelling or urticaria EXAM Physical Exam Const Vital Signs: 10/20/20 09:29 10/20/20 10:27 Temperature 96.2 F L 98.6 F Temperature Source Temporal Oral Pulse Rate 98 Respiratory Rate 22 H Blood Pressure 179/122 H Blood Pressure Mean 141 Pulse Ox 98 Positive well nourished, well developed and obese General Appearance ED: well developed Nutritional Appearance: obese HEENT Reports normocephalic, head/scalp atraumatic and moist mucous membranes Eyes PERRL and EOMs intact bilaterally Neck no lymphadenopathy, supple and no JVD Resp normal respiratory effort and clear to auscultation bilaterally Cardio regular rate, regular rhythm and no murmurs GI normal to inspection, nondistended, normoactive bowel sounds and non-tender Palpation: soft Back/Spine no CVA tenderness and normal ROM Extremity Extremity Narrative: Left BKA General Extremety ED: Negative for edema General Extremity: Negative for edema Neuro oriented x3 and CN's II-XII intact bilaterally Sensorium / Orientation: alert Motor Exam: strength 5/5 throughout Psych Psych Narrative: Patient appears to be hyperventilating Mood & Affect: anxious; Negative for depressed or tearful Skin no rashes or lesions noted and no wounds MDM MDM MDM Narrative Medical decision making narrative: Basic blood work was obtained. White count 9.3. Creatinine 1.68 BUN of 28. Her glucose is 403 CO2 is 23 with an anion gap of 11. Patient received IV fluids as well as IV Zofran. Later she received Ativan as she continues to have hyperventilation. Family states that this has been a recurrent and I wonder because of her uncontrolled diabetes as she could be having gastroparesis. I also gave her some Reglan. She has multiple nausea medications at home. I would recommend tight control of her blood sugars as needed Reglan and nausea medicine and to follow-up with her primary care doctor discuss this further. She tells me her blood sugars are typically in the 200 range most visits here she has been well above 300. Lab Data Attestation: I reviewed the patient's lab results. Labs: Laboratory Results - last 24 hr 10/20/20 10/20/20 09:50 09:50 WBC 9.3 RBC 3.92 L Hgb 11.1 L Hct 32.9 L MCV 83.9 MCH 28.3 MCHC 33.7 RDW Std Deviation 42.5 RDW Coeff of Michael 13.9 Plt Count 256 MPV 10.5 Immature Gran % (Auto) 1.600 H Neut % (Auto) 83.8 H Lymph % (Auto) 10.1 L [place] % (Auto) 4.4 Eos % (Auto) 0.0 Baso % (Auto) 0.1 Absolute Neuts (auto) 7.8 H Absolute Lymphs (auto) 0.94 Nucleated RBC % 0 Sodium 133 L Potassium 4.2 Chloride 99 Carbon Dioxide 23.0 Anion Gap 11 BUN 28 H Creatinine 1.68 H Estim Creat Clear Calc 37.92 Est GFR (MDRD) Af Amer 42 L Est GFR (MDRD) Non-Af 34 L BUN/Creatinine Ratio 16.7 Glucose 403 H Calcium 9.9 Total Bilirubin 0.60 AST 51 H ALT 35 Alkaline Phosphatase 83 Total Protein 8.4 H Albumin 3.3 Globulin 5.1 H Albumin/Globulin Ratio 0.6 L Lipase 158 Discharge Plan Triage Chief Complaint: Nausea/Vomiting ED Provider: Brant King Dx/Rx/DC Orders Clinical Impression: Diabetes mellitus, Vomiting Instructions: ED Diabetic Gastroparesis Prescriptions: New metoclopramide HCl [Reglan] 10 mg tablet 10 mg PO Q6H PRN (Reason: nausea and vomiting) Qty: 20 RF: 0 No Action dicyclomine 10 mg capsule 10 mg PO BID RF: 0 fenofibrate 160 mg tablet 160 mg PO DAILY RF: 0 Breo Ellipta 100-25 mcg/dose blister with device 1 inh inhalation DAILY RF: 0 enalapril maleate 2.5 MG tablet 2.5 mg PO BID RF: 0 duloxetine 60 MG capsule 60 mg PO QHS RF: 0 ondansetron HCl 8 MG tablet 8 mg PO Q8H PRN (Reason: Nausea) RF: 0 esomeprazole magnesium 40 MG capsule 40 mg PO BID RF: 0 budesonide 1 PUFF inhaler 2 puff INHALATION DAILY RF: 0 insulin regular hum U-500 conc 20 ML solution 2.2 units SC CONT RF: 0 trazodone 100 MG tablet 150 mg PO QHS RF: 0 tramadol 50 MG tablet 50 mg PO TID PRN (Reason: Pain) RF: 0 ferrous sulfate 325 MG tablet 325 mg PO TIDCM RF: 0 ergocalciferol (vitamin D2) 50,000 UNIT capsule 50,000 unit PO MOWEFR RF: 0 albuterol sulfate 2.5 MG/3 ML solution for nebulization 2.5 mg INHALATION Q4H PRN PRN (Reason: Wheezing) RF: 0 gabapentin 800 MG tablet 800 mg PO TID RF: 0 rosuvastatin 10 mg tablet 20 mg PO QHS RF: 0 sucralfate 1 GM tablet 1 gm PO QHS RF: 0 magnesium oxide 400 MG tablet 400 mg PO DAILYCM RF: 0 metoclopramide HCl 10 MG tablet 10 mg PO BID RF: 0 insulin aspart U-100 100 UNITS/ML insulin pen See Protocol units SC ACHS RF: 0 duloxetine 30 mg capsule,delayed release(DR/EC) 30 mg PO DAILY RF: 0 hydroxyzine pamoate 50 MG capsule 50 mg PO TID PRN (Reason: Anxiety) RF: 0 ondansetron [ondansetron] 4 MG tablet 4 mg PO Q8H PRN PRN (Reason: Nausea) Qty: 10 RF: 0 metoprolol tartrate 25 mg tablet 25 mg PO BID Qty: 180 RF: 3 Primary Care Provider: Johann Jimenez Referrals: Johann Jimenez MD [Primary Care Provider] - As soon as possible Disposition Disposition: Home, Self Care
[2020-10-20] MEDS: 0.9% Normal Saline 1,000 ML 1000 ML IV (10:23)
[2020-10-20] MEDS: Ondansetron 4 MG/2 ML Vial IV (10:23)
[2020-10-20 10:25] LABS: Absolute Lymphocyte Count 0.94 X10^3/uL (0.83-4.51); Absolute Neutrophil Count 7.8 X10^3/uL (2.0-7.7); Basophil# 0.01 X10^3/uL; Basophil% 0.1 % (0-1); Hematocrit 32.9 % (37-47); Hemoglobin 11.1 g/dL (12.0-15.0); Lymphocyte # 0.94 X10^3/ul (0.83-4.51); Lymphocyte % 10.1 % (19-41); Mean Corp Hgb Conc 33.7 g/dL (32-36); Mean Corpuscular Hgb 28.3 pg (27.0-32.0); Mean Corpuscular Volume 83.9 fL (81-99); Mean Platelet Vol. 10.5 fl (6.2-12.0); Monocyte# 0.41 X10^3/uL; Monocyte% 4.4 % (0-10); NRBC Flagged by Analyzer 0 % (0-5); Neutrophil # 7.81 X10^3/uL (2.7-7.7); Neutrophil % 83.8 % (47-70); Platelet Count 256 K/mm3 (150-450); RBC Distribution Width CV 13.9 % (11.6-14.6); RBC Distribution Width SD 42.5 fl (35.1-43.9); Red Blood Count 3.92 M/mm3 (4.2-5.4); White Blood Count 9.3 K/mm3 (4.4-11.0)
[2020-10-20 10:27] VITALS: TEMP 37
[2020-10-20 10:40] LABS: ALB/GLOB Ratio 0.6 RATIO (0.9-2.4); AST(SGOT) 51 U/L (15-37); Alanine Aminotransfer ALT/SGPT 35 U/L (13-56); Albumin, Serum 3.3 g/dL (3.2-5.0); Alkaline Phosphatase 83 U/L (45-117); Anion Gap 11 (5-15); BUN 28 mg/dL (7-18); BUN/Creat Ratio 16.7 RATIO (10-20); Calcium,Total 9.9 mg/dL (8.5-10.1); Chloride 99 mmol/L (98-107); Creatinine, Serum 1.68 mg/dL (0.55-1.02); EST Glomerular Filtration Rate 34 mL/min (>60); Est Glom Filt Rate - Afr Amer 42 mL/min (>60); Estimated Creatinine Clearance 37.92 ml/min; Globulin 5.1 g/dL (2.2-4.2); Glucose 403 mg/dL (74-106); Lipase 158 U/L (73-393); Potassium 4.2 mmol/L (3.5-5.1); Protein, Total 8.4 g/dL (6.4-8.2); Sodium Level 133 mmol/L (136-145)
[2020-10-20] MEDS: LORazepam 2 MG/ML Syringe 1 MG IV (11:53)
[2020-10-20] MEDS: Metoclopramide 10 MG Tablet PO (12:17)
== END 2020-10-20 12:39 | disposition home or self-care (01) ==
PROVIDERS: Emergency Provider Emergency Medicine; PCP Family Medicine
DX: R11.2 Nausea with vomiting, unspecified (principal); R19.7 Diarrhea, unspecified; R10.30 Lower abdominal pain, unspecified; E11.40 Type 2 diabetes mellitus with diabetic neuropathy, unspecified; E66.9 Obesity, unspecified; Z68.33 Body mass index [BMI] 33.0-33.9, adult; J44.9 Chronic obstructive pulmonary disease, unspecified; F32.9 Major depressive disorder, single episode, unspecified; I27.20 Pulmonary hypertension, unspecified; D63.8 Anemia in other chronic diseases classified elsewhere; D50.9 Iron deficiency anemia, unspecified; K21.9 Gastro-esophageal reflux disease without esophagitis; K58.9 Irritable bowel syndrome, unspecified; K74.60 Unspecified cirrhosis of liver; M32.9 Systemic lupus erythematosus, unspecified; Z86.14 Personal history of Methicillin resistant Staphylococcus aureus infection; Z86.16 Personal history of COVID-19; Z86.73 Personal history of transient ischemic attack (TIA), and cerebral infarction without residual deficits; Z79.4 Long term (current) use of insulin; Z79.899 Other long term (current) drug therapy
CPT/HCPCS: 80053; 83690; 85025; 96361; 96374; 96375; 99284; J7030; A4216; J2405

== ENCOUNTER → 2020-11-05 08:00 | Outpatient (CLI) | payer OTHER, MEDICARE, SELFPAY ==
--- NOTE | 2020-11-05 08:10 | US_ITS ---
STUDY: RENAL ULTRASOUND - COMPLETE REASON FOR EXAM: Female, 50 years old. CKD stage III. TECHNIQUE: Ultrasound evaluation of the kidneys was performed with real-time and static grace-scale imaging. COMPARISON: None. FINDINGS: RIGHT KIDNEY: Normal location of the right kidney, which is normal in size. The right kidney measures 13.3 cm x 6.3 cm x 6.1 cm. There is a normal cortex of the right kidney. The renal cortex measures 1.7 cm. There is a 2 cm x 2.3 cm x 1.8 cm right renal cyst. There are no right renal calculi. There is no right hydronephrosis. DISTAL RIGHT URETER: There is non-visualization of the distal right ureter. There is no demonstrated right ureterovesical junction calculus. There is no demonstrated right ureteral jet. LEFT KIDNEY: Normal location of the left kidney, which is normal in size. The left kidney measures 11.9 cm x 5.2 cm x 6.6 cm. There is a normal cortex of the left kidney. The renal cortex measures 2.0 cm. 2 renal cysts are seen. The larger measures 2.2 cm x 1.8 cm x 1.7 cm. There are no left renal calculi. There is no left hydronephrosis. DISTAL LEFT URETER: There is non-visualization of the distal left ureter. There is no demonstrated left ureterovesical junction calculus. There is no demonstrated left ureteral jet. BLADDER: A ALEXANDER catheter is seen within the urinary bladder. US/Kidney and Bladder IMPRESSION: Small bilateral renal cysts. Electronically Signed: Naun Bethea MD at 15:37 EDT , Service support ,
== END ==
PROVIDERS: PCP Family Medicine; Referring Provider Internal Medicine Nephrology; Visit Provider Internal Medicine Nephrology
DX: N18.32 Chronic kidney disease, stage 3b (principal)
CPT/HCPCS: 76770

== ENCOUNTER → 2020-11-14 12:02 | Outpatient (CLI) | payer OTHER, MEDICARE, SELFPAY ==
[2020-11-14 15:18] LABS: Absolute Lymphocyte Count 1.05 X10^3/uL (0.83-4.51); Absolute Neutrophil Count 3.8 X10^3/uL (2.0-7.7); Basophil# 0.01 X10^3/uL; Basophil% 0.2 % (0-1); Eosinophil# 0.14 X10^3/uL; Eosinophils% 2.5 % (0-5); Hematocrit 28.2 % (37-47); Hemoglobin 8.5 g/dL (12.0-15.0); Lymphocyte # 1.05 X10^3/ul (0.83-4.51); Lymphocyte % 19.1 % (19-41); Mean Corp Hgb Conc 30.1 g/dL (32-36); Mean Corpuscular Volume 92.8 fL (81-99); Mean Platelet Vol. 11.1 fl (6.2-12.0); Monocyte# 0.46 X10^3/uL; Monocyte% 8.4 % (0-10); NRBC Flagged by Analyzer 0 % (0-5); Neutrophil # 3.77 X10^3/uL (2.7-7.7); Neutrophil % 68.5 % (47-70); Platelet Count 238 K/mm3 (150-450); RBC Distribution Width CV 15.4 % (11.6-14.6); RBC Distribution Width SD 51.7 fl (35.1-43.9); Red Blood Count 3.04 M/mm3 (4.2-5.4); White Blood Count 5.5 K/mm3 (4.4-11.0)
[2020-11-14 15:28] LABS: ALB/GLOB Ratio 0.6 RATIO (0.9-2.4); AST(SGOT) 31 U/L (15-37); Alanine Aminotransfer ALT/SGPT 24 U/L (13-56); Albumin, Serum 2.9 g/dL (3.2-5.0); Alkaline Phosphatase 78 U/L (45-117); Anion Gap 7 (5-15); BUN 36 mg/dL (7-18); BUN/Creat Ratio 17.6 RATIO (10-20); Calcium,Total 9.4 mg/dL (8.5-10.1); Chloride 106 mmol/L (98-107); Creatinine, Serum 2.04 mg/dL (0.55-1.02); EST Glomerular Filtration Rate 28 mL/min (>60); Est Glom Filt Rate - Afr Amer 33 mL/min (>60); Globulin 4.7 g/dL (2.2-4.2); Glucose 201 mg/dL (74-106); Potassium 5.1 mmol/L (3.5-5.1); Protein, Total 7.6 g/dL (6.4-8.2); Sodium Level 139 mmol/L (136-145)
== END ==
PROVIDERS: PCP Family Medicine; Referring Provider Internal Medicine Rheumatology; Visit Provider Internal Medicine Rheumatology
DX: M06.4 Inflammatory polyarthropathy (principal); M79.7 Fibromyalgia; K21.9 Gastro-esophageal reflux disease without esophagitis; K74.69 Other cirrhosis of liver; I27.0 Primary pulmonary hypertension; E11.8 Type 2 diabetes mellitus with unspecified complications; J45.909 Unspecified asthma, uncomplicated; G47.30 Sleep apnea, unspecified; N20.0 Calculus of kidney
CPT/HCPCS: 36415; 80053; 85025

== ENCOUNTER → 2020-11-29 16:00 | Outpatient (CLI) | payer OTHER, MEDICARE, SELFPAY ==
[2020-11-29 17:24] LABS: Protein:Creat Ratio 3368 mg/g CRE (0-200)
[2020-11-29 17:50] LABS: Anion Gap 2 (5-15); BUN 35 mg/dL (7-18); BUN/Creat Ratio 19.4 RATIO (10-20); Calcium,Total 9.9 mg/dL (8.5-10.1); Chloride 106 mmol/L (98-107); EST Glomerular Filtration Rate 32 mL/min (>60); Est Glom Filt Rate - Afr Amer 38 mL/min (>60); Glucose 97 mg/dL (74-106); Potassium 4.5 mmol/L (3.5-5.1); Sodium Level 138 mmol/L (136-145)
== END ==
LOC: LABSPEC 16:04 → LAB 16:07
PROVIDERS: PCP Family Medicine; Referring Provider Internal Medicine Nephrology; Visit Provider Internal Medicine Nephrology
DX: N18.32 Chronic kidney disease, stage 3b (principal); R30.0 Dysuria
CPT/HCPCS: 36415; 80048; 82570; 84156; 87077; 87086; 87088

== ENCOUNTER 2021-04-16 09:57 | Outpatient (CLI) | payer OTHER, MEDICARE, SELFPAY ==
[2021-04-16 11:51] LABS: Protein, Urine (Random) 357.2 mg/dL (<11.9); Protein:Creat Ratio 2858 mg/g CRE (0-200)
[2021-04-16 11:53] LABS: Anion Gap 5 (5-15); BUN 38 mg/dL (7-18); BUN/Creat Ratio 18.1 RATIO (10-20); Chloride 109 mmol/L (98-107); EST Glomerular Filtration Rate 27 mL/min (>60); Est Glom Filt Rate - Afr Amer 32 mL/min (>60); Glucose 133 mg/dL (74-106); PTHIN 142.7 pg/mL (18.4-80.1); Sodium Level 139 mmol/L (136-145)
[2021-04-16 11:57] LABS: Vitamin D,25 Hydroxy 21.7 ng/mL
== END 2021-04-16 23:59 | disposition home or self-care (01) ==
LOC: LAB 10:04
PROVIDERS: PCP Family Medicine; Referring Provider Nurse Practitioner Adult Health; Visit Provider Nurse Practitioner Adult Health
DX: N18.32 Chronic kidney disease, stage 3b (principal); R80.9 Proteinuria, unspecified; E83.42 Hypomagnesemia; E55.9 Vitamin D deficiency, unspecified
CPT/HCPCS: 36415; 80048; 82306; 82570; 83970; 84156

== ENCOUNTER 2021-06-05 12:25 | Outpatient (CLI) | payer OTHER, MEDICARE, SELFPAY ==
[2021-06-05 12:55] LABS: Erythrocyte Sedimentation Rate 38 mm/hr (0-30)
[2021-06-05 12:57] LABS: International Normalized Ratio 1.1; Prothrombin Time (Protime)PT. 13.9 SECONDS (11.7-14.9)
[2021-06-05 13:12] LABS: AST(SGOT) 21 U/L (15-37); Alanine Aminotransfer ALT/SGPT 24 U/L (13-56); Albumin, Serum 3.2 g/dL (3.2-5.0); Alkaline Phosphatase 78 U/L (45-117); Bilirubin, Direct 0.14 mg/dL (0.00-0.30); Globulin 4.3 g/dL (2.2-4.2); LDH 167 U/L (84-246); Protein, Total 7.5 g/dL (6.4-8.2)
[2021-06-07 15:08] LABS: Anti-Centromere B Ab <0.2 AI (0.0-0.9); Anti-Chromatin <0.2 AI (0.0-0.9); Anti-Jo <0.2 AI (0.0-0.9); Anti-Scleroderma-70 AB <0.2 AI (0.0-0.9); RNP Ab 0.2 AI (0.0-0.9); SJOGREN'S Anti-SS-A test < 0.2 AI (0.0-0.9); SJOGREN'S Anti-SS-B test 0.5 AI (0.0-0.9); Smith Ab <0.2 AI (0.0-0.9)
[2021-06-07 15:56] LABS: Anti-Mitochondrial AB <20.0 Units (0.0-20.0); Anti-dsDNA Ab <1 IU/mL (0-9)
[2021-06-14 03:07] LABS: Angiotensin Convert Enzyme < 15 U/L (14-82); Ceruloplasmin 27.2 mg/dL (19.0-39.0); Cytoplasmic Ab (C-ANCA) <1:20 titer (Neg:<1:20); Endomysial Antibody IgA Negative (Negative); HEPATITIS B SURFACE AG Negative (Negative); Hepatitis A IgM Antibody Negative (Negative); Hepatitis B Core AB IgM Negative (Negative); Immunoglobulin A 276 mg/dL (87-352); Immunoglobulin E 363 IU/mL (6-495); Immunoglobulin G 1145 mg/dL (586-1602); Immunoglobulin M 198 mg/dL (26-217)
[2021-06-14 09:37] LABS: AFP, Tumor Marker 3.6 ng/mL (0.0-6.4); Anti-Smooth Muscle ABS 5 Units (0-19); Copper, Serum or Plasma 110 ug/dL (80-158); Gastrin, Serum 243 pg/mL (0-115); Haptoglobin 226 mg/dL (42-296); Hep C Antibodies 0.1 s/co ratio (0.0-0.9); Perinuclear Ab (P-ANCA) <1:20 titer (Neg:<1:20); t-Transglutaminase IgA <2 U/mL (0-3)
== END 2021-06-05 23:59 | disposition home or self-care (01) ==
PROVIDERS: PCP Family Medicine; Referring Provider Nurse Practitioner Adult Health; Visit Provider Nurse Practitioner Adult Health
DX: K75.81 Nonalcoholic steatohepatitis (NASH) (principal)
CPT/HCPCS: 36415; 80074; 80076; 82105; 82140; 82164; 82390; 82525; 82784; 82785; 82941; 83010; 83516; 83615; 85610; 85652; 86140; 86225; 86235; 86255; 86256

== ENCOUNTER → 2021-06-21 | Outpatient (CLI) | payer OTHER, MEDICARE, SELFPAY ==
--- NOTE | 2021-06-21 07:36 | US_ITS ---
STUDY: ABDOMINAL ULTRASOUND - ELASTOGRAPHY REASON FOR VISIT: Female, 50 years old. Hepatomegaly and fatty infiltration of the liver. TECHNIQUE: Liver stiffness measurements were obtained on a SquareClock RS 85 ultrasound machine using a CA 1-7 probe following the SRU guidelines. 3 measurements were obtained using a 2-D-SWE method. The IQR/M was 18% suggesting a quality data set. TECHNICAL QUALITY: Adequate. COMPARISON: Comparison is made with prior study done earlier today. FINDINGS: Liver: Hepatomegaly and diffuse fatty infiltration of the liver. Median liver stiffness measured 7.3 kPa. US/Elastography Parenchyma/Organ IMPRESSION: Liver stiffness measures 7.3 kPa compatible with F2-F3 (Mild to moderate liver fibrosis) Metavir score. Electronically Signed: Naun Bethea MD at 10:08 EDT ,
--- NOTE | 2021-06-21 07:41 | US_ITS ---
STUDY: ABDOMINAL ULTRASOUND - RIGHT UPPER QUADRANT REASON FOR VISIT: Female, 50 years old NONALCOHOLIC STEATOHEPATITIS -- S/P CHOLECYSTECTOMY 2009 -- loose stools -- vomiting TECHNIQUE: Ultrasound evaluation of the right upper quadrant was performed with real-time and static aldrich-scale imaging. TECHNICAL QUALITY: Adequate. COMPARISON: Comparison is made with prior study dated 08/03/2009. FINDINGS: Liver: The liver is enlarged and measures 24.9 cm. There is increased echogenicity consistent with fatty infiltration. The bile ducts are within normal limits. There is hepatic color flow. The direction of portal flow is hepatopetal. There is no demonstrated mass lesion. Gallbladder: The patient is status post cholecystectomy. Common Bile Duct (C.B.D.): The common bile duct measures 5.9 mm. Pancreas: Normal size of the head, body and tail of the pancreas. There is increased echogenicity of the pancreas. There is no demonstrated pancreatic mass or cyst. Right Kidney: Normal size of the right kidney. The right kidney measures 13.6 cm x 5.9 cm x 6.6 cm. Normal renal cortex. The right cortex measures 2.3 cm. 2 renal cysts are seen. The larger cyst measures 2.2 cm x 2.1 cm x 1.8 cm. There is no right hydronephrosis. US/Abdomen Limited IMPRESSION: Hepatomegaly and diffuse fatty infiltration of the liver. Right renal cysts. Status post cholecystectomy. Electronically Signed: Naun Bethea MD at 10:07 EDT ,
== END | disposition home or self-care (01) ==
LOC: US 07:35
PROVIDERS: PCP Family Medicine; Visit Provider Nurse Practitioner Adult Health
DX: K75.81 Nonalcoholic steatohepatitis (NASH) (principal)
CPT/HCPCS: 76705; 76981

== ENCOUNTER → 2021-07-18 | Outpatient (CLI) | payer OTHER, MEDICARE, SELFPAY ==
[2021-07-18 11:28] LABS: Absolute Lymphocyte Count 1.05 X10^3/uL (0.83-4.51); Absolute Neutrophil Count 3.1 X10^3/uL (2.0-7.7); Eosinophil# 0.11 X10^3/uL; Eosinophils% 2.4 % (0-5); Hematocrit 26.3 % (37-47); Hemoglobin 8.5 g/dL (12.0-15.0); Lymphocyte # 1.05 X10^3/ul (0.83-4.51); Lymphocyte % 22.8 % (19-41); Mean Corp Hgb Conc 32.3 g/dL (32-36); Mean Corpuscular Hgb 30.6 pg (27.0-32.0); Mean Corpuscular Volume 94.6 fL (81-99); Mean Platelet Vol. 10.2 fl (6.2-12.0); Monocyte# 0.25 X10^3/uL; Monocyte% 5.4 % (0-10); NRBC Flagged by Analyzer 0 % (0-5); Neutrophil # 3.14 X10^3/uL (2.7-7.7); Neutrophil % 68.3 % (47-70); Platelet Count 146 K/mm3 (150-450); RBC Distribution Width SD 44.9 fl (35.1-43.9); Red Blood Count 2.78 M/mm3 (4.2-5.4); White Blood Count 4.6 K/mm3 (4.4-11.0)
== END | disposition home or self-care (01) ==
PROVIDERS: PCP Family Medicine; Visit Provider Internal Medicine Gastroenterology
DX: N18.9 Chronic kidney disease, unspecified (principal); D63.1 Anemia in chronic kidney disease
CPT/HCPCS: 36415; 85025

== ENCOUNTER → 2021-07-22 | Outpatient (CLI) | payer OTHER, MEDICARE, SELFPAY ==
[2021-07-22 15:54] LABS: PTHIN 203.7 pg/mL (18.4-80.1)
[2021-07-22 16:00] LABS: Free T3 2.2 pg/mL (2.18-3.98); T4 Free Direct 0.94 ng/dL (0.76-1.46); Thyroid Stim Hormone (TSH) 0.92 uIU/mL (0.358-3.74)
[2021-07-22 16:11] LABS: Hemoglobin A1c 7.1 % (3.8-5.6)
[2021-07-24 15:08] LABS: Albumin 3.4 g/dL (2.9-4.4); Alpha-1-Globulins 0.2 g/dL (0.0-0.4); Complement C3 175 mg/dL (82-167); Immunoglobulin A 219 mg/dL (87-352); Immunoglobulin G 1002 mg/dL (586-1602); Immunoglobulin M 167 mg/dL (26-217); PROEL- TOTAL PROTEIN 6.5 g/dL (6.0-8.5)
[2021-07-24 21:09] LABS: Complement CH50 > 60 U/mL (>41)
== END | disposition home or self-care (01) ==
PROVIDERS: PCP Family Medicine; Visit Provider Nurse Practitioner Adult Health
DX: K52.9 Noninfective gastroenteritis and colitis, unspecified (principal); R79.82 Elevated C-reactive protein (CRP); R70.0 Elevated erythrocyte sedimentation rate
CPT/HCPCS: 82784; 83036; 83970; 84165; 84439; 84443; 84481; 86160; 86162; 86334

== ENCOUNTER → 2021-07-24 | Outpatient (CLI) | payer OTHER, MEDICARE, SELFPAY ==
[2021-07-31 16:09] LABS: H. PYLORI STOOL AG Negative (Negative)
[2021-08-01 17:19] LABS: Giardia Lamblia, Stool EIA Negative (Negative); Pancreatic Elastase, Fecal > 500 (>200)
[2021-08-04 16:49] LABS: Calprotectin, Stool 66 ug/g (0-120); Fats, Neutral Normal (.); Fats, Total Normal (.)
== END | disposition home or self-care (01) ==
PROVIDERS: Nurse Practitioner Adult Health; PCP Family Medicine; Referring Provider Internal Medicine Gastroenterology; Visit Provider Internal Medicine Gastroenterology
DX: K58.9 Irritable bowel syndrome, unspecified (principal); R19.7 Diarrhea, unspecified
CPT/HCPCS: 82653; 82705; 83630; 83993; 87177; 87209; 87329; 87493; 87506

== ENCOUNTER → 2021-08-16 | Outpatient (CLI) | payer OTHER, MEDICARE, SELFPAY ==
[2021-08-16 13:02] LABS: Absolute Lymphocyte Count 1.24 X10^3/uL (0.83-4.51); Basophil# 0.01 X10^3/uL; Basophil% 0.2 % (0-1); Eosinophil# 0.12 X10^3/uL; Hematocrit 26.6 % (37-47); Hemoglobin 8.6 g/dL (12.0-15.0); Lymphocyte # 1.24 X10^3/ul (0.83-4.51); Lymphocyte % 21.1 % (19-41); Mean Corp Hgb Conc 32.3 g/dL (32-36); Mean Corpuscular Hgb 30.1 pg (27.0-32.0); Mean Platelet Vol. 10.4 fl (6.2-12.0); Monocyte% 8.5 % (0-10); NRBC Flagged by Analyzer 0 % (0-5); Neutrophil # 3.95 X10^3/uL (2.7-7.7); Neutrophil % 67.2 % (47-70); Platelet Count 179 K/mm3 (150-450); RBC Distribution Width CV 13.5 % (11.6-14.6); RBC Distribution Width SD 44.7 fl (35.1-43.9); RET-HE 33.8 pg (30-35); Red Blood Count 2.86 M/mm3 (4.2-5.4); Reticulocyte Count 7.48 % (0.5-1.5); White Blood Count 5.9 K/mm3 (4.4-11.0)
[2021-08-16 13:33] LABS: ALB/GLOB Ratio 0.7 RATIO (0.9-2.4); AST(SGOT) 25 U/L (15-37); Alanine Aminotransfer ALT/SGPT 23 U/L (13-56); Alkaline Phosphatase 84 U/L (45-117); Anion Gap 8 (5-15); BUN 34 mg/dL (7-18); BUN/Creat Ratio 16.6 RATIO (10-20); Calcium,Total 8.8 mg/dL (8.5-10.1); Chloride 107 mmol/L (98-107); Creatinine, Serum 2.05 mg/dL (0.55-1.02); EST Glomerular Filtration Rate 27 mL/min (>60); Est Glom Filt Rate - Afr Amer 33 mL/min (>60); Ferritin 660 ng/mL (8-252); Globulin 4.2 g/dL (2.2-4.2); Glucose 162 mg/dL (74-106); Iron 73 ug/dL (50-170); Iron Binding Capacity,Total 276 ug/dL (250-450); LDH 150 U/L (84-246); PERCENT IRON SATURATION 26.4 % (15.0-55.0); Protein, Total 7.2 g/dL (6.4-8.2); Sodium Level 140 mmol/L (136-145); T4 Free Direct 1.02 ng/dL (0.76-1.46); Thyroid Stim Hormone (TSH) 0.94 uIU/mL (0.358-3.74)
[2021-08-16 13:39] LABS: Hepatitis B Surface Antibody Reactive
== END | disposition home or self-care (01) ==
PROVIDERS: Internal Medicine Medical Oncology; Nurse Practitioner Adult Health; PCP Family Medicine; Referring Provider Internal Medicine Pulmonary Disease; Visit Provider Internal Medicine Pulmonary Disease
DX: K50.90 Crohn's disease, unspecified, without complications (principal); Z20.822 Contact with and (suspected) exposure to COVID-19; N18.9 Chronic kidney disease, unspecified; D63.1 Anemia in chronic kidney disease
CPT/HCPCS: 36415; 80053; 82728; 83540; 83550; 83615; 84439; 84443; 85025; 85045; 86480; 86706; 87635; C9803; U0003; U0005

== ENCOUNTER → 2021-08-26 | Outpatient (CLI) | payer OTHER, MEDICARE, SELFPAY ==
--- NOTE | 2021-08-26 07:36 | CT_ITS ---
STUDY: CT ABDOMEN AND PELVIS WITH CONTRAST REASON FOR EXAM: Female, 51 years old. New diagnosis Crohn''s -- enterography RADIATION DOSAGE (If Supplied By Facility): CTDIvol = ( 23.88 ) mGy, DLP = ( 2735.34 ) mGycm TECHNIQUE: Transaxial images were obtained from the dome of the diaphragm to the symphysis pubis with oral contrast. Oral and amp; IV BREEZA NEUTRAL and amp; 100mL Isovue-[id number] was administered. Sagittal and coronal images were reconstructed. Individualized dose optimization techniques were used for this CT. COMPARISON: Comparison is made with prior study dated 08/01/2020. FINDINGS: Stable mild degree of left pleural thickening. The visualized portions of the heart are within normal limits. There is decreased attenuation of the liver consistent with steatosis. Hepatomegaly. The patient is status post cholecystectomy. Normal spleen. Normal pancreas. Normal bilateral adrenal glands. Nonspecific bilateral perinephric stranding slightly more prominent on the left side. Stable small bilateral renal cysts. Normal visualized stomach. Normal small intestine. There are scattered colonic diverticula consistent with diverticulosis. The appendix is visualized and appears normal. There is scattered atherosclerotic calcification of the abdominal aorta, without a demonstrated aneurysm. Normal inferior vena cava. Normal retroperitoneum. Normal urinary bladder. There is absence of the uterus consistent with a prior hysterectomy. Normal abdominal wall. Normal osseous structures. CT/Abdomen/Pelvis WITH Contrast IMPRESSION: Hepatomegaly and diffuse fatty infiltration of the liver. Stable nonspecific bilateral perinephric stranding and small bilateral renal cysts. Stable left-sided pleural thickening. Electronically Signed: Naun Bethea MD at 9:23 EDT ,
[2021-08-26 08:41] LABS: CREATININE FINGERSTICK 1.5 mg/dL (0.55-1.02)
== END | disposition home or self-care (01) ==
LOC: CT 07:34
PROVIDERS: PCP Family Medicine; Referring Provider Nurse Practitioner Adult Health; Visit Provider Nurse Practitioner Adult Health
DX: K50.90 Crohn's disease, unspecified, without complications (principal)
CPT/HCPCS: 74177; Q9967; A4216

== ENCOUNTER → 2021-08-31 | Outpatient (CLI) | payer OTHER, MEDICARE, SELFPAY ==
[2021-09-04 18:07] LABS: QNTFERON TB Mitogen Value > 10.00 IU/mL (.); QNTFERON TB Nil Value 0.11 IU/mL (.); QNTFERON TB2+ Ag Value 0.84 IU/mL (.)
[2021-09-05 15:15] LABS: QNTIFERON TB Positive Criteria Positive (Negative)
== END | disposition home or self-care (01) ==
PROVIDERS: PCP Family Medicine; Referring Provider Nurse Practitioner Adult Health; Visit Provider Nurse Practitioner Adult Health
DX: K50.90 Crohn's disease, unspecified, without complications (principal)
CPT/HCPCS: 36415; 86480

== ENCOUNTER → 2021-09-10 | Outpatient (CLI) | payer OTHER, MEDICARE, SELFPAY ==
--- NOTE | 2021-09-10 09:58 | RAD_ITS ---
EXAM: XR CHEST, 2 VIEWS CLINICAL INDICATION: Quant TB positive TECHNIQUE: Frontal and lateral views of the chest. This report was created using [employer] report generation technology. COMPARISON: 02/19/2020 FINDINGS: LUNGS AND PLEURAL SPACES: Unremarkable. No consolidation or edema. No pneumothorax. No effusion. HEART: Unremarkable. Cardiac silhouette not enlarged. MEDIASTINUM: Central airways and mediastinal contour are unremarkable. BONES/JOINTS: Unremarkable. SOFT TISSUES: Unremarkable. RAD/Chest PA and Lateral IMPRESSION: No radiographic evidence of acute cardiopulmonary disease. Electronically Signed: Marcelo Colin MD at 2:57 EDT ,
== END | disposition home or self-care (01) ==
PROVIDERS: PCP Family Medicine; Referring Provider Nurse Practitioner Adult Health; Visit Provider Nurse Practitioner Adult Health
DX: R76.12 Nonspecific reaction to cell mediated immunity measurement of gamma interferon antigen response without active tuberculosis (principal)
CPT/HCPCS: 71046

== ENCOUNTER → 2021-10-23 | Outpatient (CLI) | payer OTHER, MEDICARE, SELFPAY ==
[2021-10-23 17:03] LABS: Absolute Lymphocyte Count 1.38 X10^3/uL (0.83-4.51); Absolute Neutrophil Count 5.6 X10^3/uL (2.0-7.7); Basophil# 0.01 X10^3/uL; Basophil% 0.1 % (0-1); Eosinophil# 0.16 X10^3/uL; Eosinophils% 2.1 % (0-5); Hematocrit 28.3 % (37-47); Hemoglobin 9.1 g/dL (12.0-15.0); Lymphocyte # 1.38 X10^3/ul (0.83-4.51); Lymphocyte % 17.9 % (19-41); Mean Corp Hgb Conc 32.2 g/dL (32-36); Mean Corpuscular Hgb 30.6 pg (27.0-32.0); Mean Corpuscular Volume 95.3 fL (81-99); Monocyte# 0.52 X10^3/uL; Monocyte% 6.8 % (0-10); NRBC Flagged by Analyzer 0 % (0-5); Neutrophil # 5.56 X10^3/uL (2.7-7.7); Neutrophil % 72.3 % (47-70); Platelet Count 206 K/mm3 (150-450); RBC Distribution Width CV 13.2 % (11.6-14.6); RBC Distribution Width SD 45.4 fl (35.1-43.9); Red Blood Count 2.97 M/mm3 (4.2-5.4); White Blood Count 7.7 K/mm3 (4.4-11.0)
== END | disposition home or self-care (01) ==
LOC: LAB 15:16
PROVIDERS: PCP Family Medicine; Referring Provider Nurse Practitioner Adult Health; Visit Provider Nurse Practitioner Adult Health
DX: K92.1 Melena (principal)
CPT/HCPCS: 36415; 85025

== ENCOUNTER → 2021-11-14 | Outpatient (CLI) | payer OTHER, MEDICARE, SELFPAY ==
[2021-11-14 12:28] LABS: Hemoglobin 8.4 g/dL (12.0-15.0); Mean Corp Hgb Conc 32.3 g/dL (32-36); Mean Corpuscular Hgb 29.9 pg (27.0-32.0); Mean Corpuscular Volume 92.5 fL (81-99); Platelet Count 208 K/mm3 (150-450); RBC Distribution Width CV 13.1 % (11.6-14.6); RBC Distribution Width SD 43.8 fl (35.1-43.9); Red Blood Count 2.81 M/mm3 (4.2-5.4); White Blood Count 5.4 K/mm3 (4.4-11.0)
[2021-11-14 13:02] LABS: PTHIN 260.8 pg/mL (18.4-80.1)
[2021-11-14 13:17] LABS: BUN 48 mg/dL (7-18); BUN/Creat Ratio 19.2 RATIO (10-20); Calcium,Total 9.5 mg/dL (8.5-10.1); Chloride 106 mmol/L (98-107); EST Glomerular Filtration Rate 22 mL/min (>60); Est Glom Filt Rate - Afr Amer 26 mL/min (>60); Ferritin 598 ng/mL (8-252); Glucose 277 mg/dL (74-106); Iron 80 ug/dL (50-170); Iron Binding Capacity,Total 315 ug/dL (250-450); Magnesium 1.5 mg/dL (1.6-2.6); PERCENT IRON SATURATION 25.4 % (15.0-55.0); Phosphorus 3.6 mg/dL (2.5-4.9); Potassium 6.6 mmol/L (3.5-5.1); Sodium Level 137 mmol/L (136-145)
== END | disposition home or self-care (01) ==
LOC: POLAB3 11:19
PROVIDERS: PCP Family Medicine; Visit Provider Internal Medicine Nephrology
DX: N18.4 Chronic kidney disease, stage 4 (severe) (principal); D50.9 Iron deficiency anemia, unspecified
CPT/HCPCS: 36415; 80069; 82728; 83540; 83550; 83735; 83970; 85027

== ENCOUNTER → 2021-11-15 | Outpatient (CLI) | payer OTHER, MEDICARE, SELFPAY ==
--- NOTE | 2021-11-15 13:43 | CT_ITS ---
STUDY: CT CHEST WITHOUT CONTRAST REASON FOR EXAM: Female, 51 years old. LATENT TB COUGH RADIATION DOSAGE (If Supplied By Facility): CTDIvol = ( 17.41 ) mGy, DLP = ( 562.25 ) mGycm TECHNIQUE: Transaxial imaging was performed without the administration of intravenous contrast material. Multiplanar coronal and sagittal images were reformatted. Individualized dose optimization techniques were used for this CT. COMPARISON: Comparison is made with prior chest radiograph dated 09/10/2021. FINDINGS: CHEST Mildly enlarged right lobe of the thyroid gland with punctate calcification anteriorly. The lungs are normal. There is no demonstrated pleural abnormality. Normal heart and pericardium. The coronary arteries are unremarkable. Normal mediastinum. Normal hilar regions. Normal unenhanced pulmonary arteries. Mild degree of calcific plaques involving the thoracic and ascending aorta. There are mild degenerative changes of the thoracic spine. Small hiatal hernia. CT/Chest without Contrast IMPRESSION: No acute abnormality is seen. Electronically Signed: Naun Bethea MD at 15:01 EDT ,
[2021-11-15 16:32] LABS: Potassium 4.9 mmol/L (3.5-5.1)
== END | disposition home or self-care (01) ==
LOC: CT 13:28
PROVIDERS: Internal Medicine Nephrology; PCP Family Medicine
DX: E87.5 Hyperkalemia (principal); Z22.7 Latent tuberculosis; R05.9 Cough, unspecified
CPT/HCPCS: 36415; 71250; 84132

== ENCOUNTER → 2021-11-19 | Outpatient (CLI) | payer OTHER, MEDICARE, SELFPAY ==
[2021-11-19 12:02] LABS: Absolute Lymphocyte Count 0.99 X10^3/uL (0.83-4.51); Absolute Neutrophil Count 3.1 X10^3/uL (2.0-7.7); Eosinophil# 0.11 X10^3/uL; Eosinophils% 2.4 % (0-5); Hematocrit 24.5 % (37-47); Hemoglobin 8.1 g/dL (12.0-15.0); Lymphocyte # 0.99 X10^3/ul (0.83-4.51); Lymphocyte % 21.8 % (19-41); Mean Corp Hgb Conc 33.1 g/dL (32-36); Mean Corpuscular Hgb 30.7 pg (27.0-32.0); Mean Corpuscular Volume 92.8 fL (81-99); Mean Platelet Vol. 10.7 fl (6.2-12.0); Monocyte# 0.24 X10^3/uL; Monocyte% 5.3 % (0-10); NRBC Flagged by Analyzer 0 % (0-5); Neutrophil # 3.13 X10^3/uL (2.7-7.7); Platelet Count 164 K/mm3 (150-450); RBC Distribution Width CV 13.4 % (11.6-14.6); RBC Distribution Width SD 45.1 fl (35.1-43.9); Red Blood Count 2.64 M/mm3 (4.2-5.4); White Blood Count 4.5 K/mm3 (4.4-11.0)
[2021-11-19 12:43] LABS: ALB/GLOB Ratio 0.7 RATIO (0.9-2.4); AST(SGOT) 27 U/L (15-37); Alanine Aminotransfer ALT/SGPT 20 U/L (13-56); Albumin, Serum 2.8 g/dL (3.2-5.0); Alkaline Phosphatase 72 U/L (45-117); Anion Gap 6 (5-15); BUN 40 mg/dL (7-18); BUN/Creat Ratio 19.9 RATIO (10-20); Calcium,Total 8.5 mg/dL (8.5-10.1); Chloride 114 mmol/L (98-107); Creatinine, Serum 2.01 mg/dL (0.55-1.02); EST Glomerular Filtration Rate 28 mL/min (>60); Est Glom Filt Rate - Afr Amer 34 mL/min (>60); Ferritin 480 ng/mL (8-252); Globulin 4.3 g/dL (2.2-4.2); Glucose 180 mg/dL (74-106); Iron 78 ug/dL (50-170); Iron Binding Capacity,Total 303 ug/dL (250-450); LDH 153 U/L (84-246); PERCENT IRON SATURATION 25.7 % (15.0-55.0); Phosphorus 3.2 mg/dL (2.5-4.9); Potassium 4.9 mmol/L (3.5-5.1); Protein, Total 7.1 g/dL (6.4-8.2); Sodium Level 143 mmol/L (136-145)
[2021-11-19 12:45] LABS: Vitamin D,25 Hydroxy 20.2 ng/mL
[2021-11-19 13:31] LABS: 24HR. UA Prot. Total Volume 1150 mL; Urine Protein (24 Hour) 243.7 mg/dL (<11.9)
[2021-11-19 13:32] LABS: Creat.Clear Total Volume 1150 mL; EST Glomerular Filtration Rate 28 mL/min (>60); Est Glom Filt Rate - Afr Amer 28 mL/min (>60)
[2021-11-19 13:33] LABS: Creatinine Clearance 24 ml/min (100-200)
[2021-11-26 11:26] LABS: Creatinine Urine 61.7 mg/dL (NO RANGE EST.)
== END | disposition home or self-care (01) ==
LOC: LAB 11:11
PROVIDERS: Internal Medicine Medical Oncology; PCP Family Medicine; Visit Provider Internal Medicine Nephrology
DX: N18.4 Chronic kidney disease, stage 4 (severe) (principal)
CPT/HCPCS: 36415; 80053; 81050; 82306; 82575; 82668; 82728; 83540; 83550; 83615; 84100; 84156; 85025

== ENCOUNTER → 2022-03-18 | Outpatient (CLI) | payer MEDICARE, SELFPAY ==
[2022-03-18] MEDS: 0.9% NaCl Peripheral Flush Adult/Peds IV ×2 (08:53→09:21)
[2022-03-18 09:07] VITALS: BP 147/65; PULSE 73; RESP 16; TEMP 36.7; O2SAT 96; BMI 35.0
[2022-03-18] MEDS: Dextrose 5% 250 ML 15 ML IV (09:20)
[2022-03-18 10:45] VITALS: BP 140/67; PULSE 73; RESP 16; TEMP 36.8
== END | disposition home or self-care (01) ==
LOC: MEDOUTP 08:46
PROVIDERS: PCP Family Medicine; Referring Provider Internal Medicine Gastroenterology; Visit Provider Internal Medicine Gastroenterology
DX: K50.90 Crohn's disease, unspecified, without complications (principal)
CPT/HCPCS: 96365; 96361; A4216; J2327

== ENCOUNTER 2022-04-11 18:05 | Emergency (ER) | payer MEDICARE, SELFPAY ==
[2022-04-11 18:06] VITALS: BP 185/93; PULSE 88; RESP 16; TEMP 36.2; O2SAT 98; BMI 34.7
--- NOTE | 2022-04-11 19:37 | CT_ITS ---
EXAM: CT ABDOMEN AND PELVIS WITHOUT INTRAVENOUS CONTRAST CLINICAL INDICATION: left flank pain TECHNIQUE: Helically acquired images were obtained of the abdomen and pelvis without intravenous contrast. This CT exam was performed using one or more of the following dose reduction techniques: automated exposure control, adjustment of the mA and/or kV according to patient size, and/or use of iterative reconstruction technique. This report was created using [employer] report generation technology. COMPARISON: 08/26/2021. FINDINGS: LOWER THORAX: Unremarkable. Lung bases are clear. No cardiomegaly. No significant pericardial effusion. ABDOMEN: LIVER: Unremarkable. Homogeneous. GALLBLADDER AND BILE DUCTS: Gallbladder is not visualized. No intra- or extrahepatic biliary ductal dilation. PANCREAS: Unremarkable. No focal cystic mass. SPLEEN: Unremarkable. Normal size without focal cystic or solid mass. ADRENALS: Unremarkable. No nodules. KIDNEYS AND URETERS: Multiple low-attenuation lesions in the kidneys bilaterally measuring up to 1.8 cm. These are not characterized without contrast, but correspond to cysts seen on the prior study. No hydronephrosis. Mild rim calcification in the upper pole of the right kidney consistent with renal cyst. Otherwise, no renal calculi. No hydronephrosis. Ureters are normal in course and caliber. No ureteral stones. STOMACH AND BOWEL: Mild diverticulosis. No acute diverticulitis. Normal visualized appendix. No bowel obstruction. PELVIS: BLADDER: Unremarkable. REPRODUCTIVE: Unremarkable as visualized. No mass. ABDOMEN and PELVIS: INTRAPERITONEAL SPACE: Unremarkable. No ascites or other fluid collection. No free air. BONES/JOINTS: Unremarkable. No suspicious lytic or blastic abnormality. SOFT TISSUES: Unremarkable. No discrete abdominal or pelvic wall hernia. VASCULATURE: Unremarkable. Abdominal aorta is normal in caliber. LYMPH NODES: Unremarkable. No enlarged lymph nodes. CT/Abdomen/Pelvis without Cont IMPRESSION: 1. No acute findings. No hydronephrosis or obstructive uropathy. 2. Diverticulosis, no acute diverticulitis. 3. Renal cysts. Follow-up is not indicated per ACR guidelines. Electronically Signed: Carla Wallace MD at 21:32 EST Reading Location ID and State: [id number] / Tel , Service support ,
--- NOTE | 2022-04-11 19:40 | EX.ED.DYSGE1 ---
HPI History of Present Illness Chief Complaint: Flank Pain Informant: patient Onset/Context/Timing Onset: Days (3 days) Context: Gradual Onset Timing: Waxes and wanes Current Severity: Moderate Maximum Severity: Moderate Narrative Narrative: Patient presents secondary to left flank pain. Pain started 2 days ago, mostly in the left lower quadrant with some wrapping around to the left flank. She denies dysuria. She has had some intermittent vomiting and diarrhea. She is a history of Crohn's disease. She reports intermittent fever. She also has stage IV kidney disease. She is awaiting word from [facility] about a possible kidney transplant. She is not currently on dialysis. [facility] Medical History Abnormal CT scan, liver Acute kidney injury Alternating constipation and diarrhea Anemia of chronic disease Asthma Below-knee amputation of left lower extremity Cellulitis of left foot Cellulitis of right foot Chest pain CKD (chronic kidney disease) COPD (chronic obstructive pulmonary disease) COVID-19 virus detected Depression Diabetes mellitus Diastolic dysfunction GERD (gastroesophageal reflux disease) History of MRSA infection History of stroke Hx of pancreatitis Hypomagnesemia IBS (irritable bowel syndrome) Infection of right great toe due to methicillin resistant Staphylococcus aureus (MRSA) Iron (Fe) deficiency anemia Iron deficiency Lymphadenopathy, inguinal HINTON (nonalcoholic steatohepatitis) Nausea and vomiting Osteomyelitis of right foot Peripheral neuropathy Pulmonary hypertension Right middle lobe pneumonia SLE (systemic lupus erythematosus) Home Medications duloxetine 60 mg capsule,delayed release 60 mg PO QHS depression 11/26/12 [History Last Taken 01/19/17] insulin regular hum U-500 conc 500 unit/mL subcutaneous soln 2.2 units subcut CONT insulin pump 10/02/15 [History Last Taken 01/19/17] trazodone 100 mg tablet 150 mg PO QHS sleep 12/27/15 [History Last Taken 01/18/17] ergocalciferol (vitamin D2) 1,250 mcg (50,000 unit) capsule 50,000 unit PO MOWEFR supplement 01/24/16 [History Last Taken 01/19/17] ferrous sulfate 325 mg (65 mg iron) tablet 325 mg PO TIDCM anemia 01/24/16 [History Last Taken 01/19/17] tramadol 50 mg tablet 50 mg PO TID PRN Pain 01/24/16 [History Last Taken 01/19/17] albuterol sulfate 2.5 mg/3 mL (0.083 %) solution for nebulization 2.5 mg inhalation Q4H PRN PRN Wheezing 06/09/16 [History Last Taken 09/01/16] gabapentin 800 mg tablet 800 mg PO TID neuropathy 05/19/17 [History Last Taken Unknown] rosuvastatin 10 mg tablet 20 mg PO QHS cholesterol 06/03/17 [History Last Taken Unknown] insulin aspart U-100 100 unit/mL (3 mL) subcutaneous pen See Protocol subcut ACHS diabetes 07/30/18 [History Last Taken Unknown] magnesium oxide 400 mg (241.3 mg magnesium) tablet 400 mg PO DAILYCM supplement 07/30/18 [History Last Taken Unknown] hydroxyzine pamoate 50 mg capsule 50 mg PO TID PRN Anxiety 02/20/20 [History Last Taken Unknown] duloxetine 30 mg capsule,delayed release 30 mg PO DAILY depression 05/09/20 [History Last Taken Unknown] fenofibrate 160 mg tablet 160 mg PO DAILY 05/29/20 [History Last Taken Unknown] metoprolol tartrate 25 mg tablet 25 mg PO BID #180 tabs 06/21/20 [Rx Last Taken Unknown] fluticasone furoate 100 mcg-vilanterol 25 mcg/dose inhalation powder (Breo Ellipta) 1 inh inhalation DAILY 07/04/20 [History Last Taken Unknown] modafinil 100 mg tablet (Provigil) 100 mg PO DAILY 05/02/21 [History Last Taken Unknown] ursodiol 300 mg capsule 300 mg PO BID #180 caps 06/21/21 [Rx Last Taken Unknown] omeprazole 20 mg capsule,delayed release 20 mg PO DAILY 07/18/21 [History Last Taken Unknown] ondansetron 4 mg disintegrating tablet 8 mg PO Q8H PRN PRN Nausea 09/03/21 [History Last Taken Unknown] mesalamine 500 mg capsule,extended release (Pentasa) 1,000 mg PO BID Crohn's #360 caps 09/10/21 [Rx Last Taken Unknown] hyoscyamine sulfate 0.125 mg tablet 0.125 mg PO BID-QID PRN abdominal pain #360 tabs 10/17/21 [Rx Last Taken Unknown] diphenoxylate-atropine 2.5 mg-0.025 mg tablet (Lomotil) 1 tab PO BID PRN diarrhea #180 tabs 12/30/21 [Rx Last Taken Unknown] doxycycline hyclate 100 mg capsule 100 mg PO BID #20 caps 02/25/22 [Rx Last Taken Unknown] finerenone 10 mg tablet (Kerendia) 10 mg PO DAILY 03/04/22 [History Last Taken Unknown] risankizumab-rzaa 360 mg/2.4 mL (150 mg/mL) subcut wearable injector (Skyrizi) 360 mg (2.4 mL) subcut .56 days #2.4 mL 03/05/22 [Rx Last Taken Unknown] hydrocodone-acetaminophen 5-325mg 5mg-325mg 1 tab PO Q6H PRN PRN Pain 3 days #10 TABLETS 04/11/22 [Rx Last Taken Unknown] Allergy/AdvReac Type Severity Reaction Status Date / Time atorvastatin [From Lipitor] AdvReac Severe Vomiting Verified 03/18/22 09:09 oxycodone HCl [From Percocet] AdvReac Severe Vomiting Verified 03/18/22 09:09 Family History Mother Hypertension Grandmother Hypertension Diabetes Surgical History History of amputation of hallux History of carpal tunnel surgery History of cholecystectomy History of eye surgery History of hernia repair History of hysterectomy History of liver biopsy History of lymph node biopsy History of temporal artery biopsy History of tubal ligation Partial nontraumatic amputation of right foot Status post transmetatarsal amputation of right foot Social History Smoking Status: Never smoker alcohol intake: current ROS ROS ED Constitutional Constitutional ED: Reports fever(s); Denies chills Eyes Eyes: Denies change in vision or discharge from eye(s) ENT ENT ED: Denies discharge from eye(s), rhinorrhea or sore throat Cardiovascular Cardiovascular: Denies chest pain or palpitations Respiratory/Chest Respiratory/Chest: Denies cough or dyspnea Gastrointestinal Gastrointestinal: Reports abdominal pain, diarrhea, nausea and vomiting Genitourinary Genitourinary ED: Denies difficulty urinating or dysuria Musculoskeletal Musculoskeletal: Denies back pain or extremity pain Integumentary Denies Abrasions or rash Neurologic Neurologic: Denies headache(s) or weakness Psychiatric Psychiatric: Denies anxiety or depression Allergic/Immunologic Allergic/Immunologic ED: Denies lip swelling or urticaria EXAM Physical Exam Const Vital Signs: 04/11/22 18:06 04/11/22 20:35 04/11/22 20:36 Temperature 97.2 F L Temperature Source Temporal Pulse Rate 88 94 Respiratory Rate 16 18 Respiratory Pattern Normal Blood Pressure 185/93 H 192/93 H Blood Pressure Mean 123 126 Pulse Ox 98 95 Oxygen Delivery Method Room Air Room Air 04/11/22 21:27 Temperature Temperature Source Pulse Rate 92 Respiratory Rate 15 Respiratory Pattern Blood Pressure 172/82 H Blood Pressure Mean 112 Pulse Ox 94 Oxygen Delivery Method Room Air Positive well nourished and well developed General Appearance ED: well developed HEENT Reports moist mucous membranes Eyes PERRL and EOMs intact bilaterally Neck no lymphadenopathy Chest Wall inspection of chest normal and palpation of chest normal Resp normal respiratory effort and clear to auscultation bilaterally Cardio regular rate and regular rhythm GI GI Narrative: Abdomen soft and distended. Mild left-sided tenderness. Back/Spine General Back: CVA tenderness left Neuro oriented x3 Sensorium / Orientation: alert Psych mental status grossly normal MDM MDM MDM Narrative Medical decision making narrative: Patient was given morphine and Phenergan for pain and nausea. Lab work obtained to evaluate for leukocytosis, anemia, electrolyte derangement. Urinalysis obtained given lower abdominal pain. CT the flank ordered. Lab Data Attestation: I reviewed the patient's lab results. Labs: Laboratory Results - last 24 hr 04/11/22 04/11/22 04/11/22 19:40 20:00 20:00 WBC 7.9 RBC 3.38 L Hgb 10.0 L Hct 30.2 L MCV 89.3 MCH 29.6 MCHC 33.1 D RDW Std Deviation 46.8 H RDW Coeff of Michael 14.7 H Plt Count 166 MPV 11.1 Immature Gran % (Auto) 1.700 H Neut % (Auto) 72.0 H Lymph % (Auto) 19.0 [place] % (Auto) 5.4 Eos % (Auto) 1.8 Baso % (Auto) 0.1 Absolute Neuts (auto) 5.7 Absolute Lymphs (auto) 1.49 Nucleated RBC % 0 Sodium 143 Potassium 4.5 Chloride 111 H Carbon Dioxide 24.0 Anion Gap 8 BUN 34 H Creatinine 2.36 H Estim Creat Clear Calc 26.70 Est GFR (MDRD) Af Amer 28 L Est GFR (MDRD) Non-Af 23 L BUN/Creatinine Ratio 14.4 Glucose 217 H Calcium 8.8 Total Bilirubin 0.20 Direct Bilirubin 0.11 AST 23 ALT 16 Alkaline Phosphatase 93 Total Protein 7.4 Albumin 2.9 L Globulin 4.5 H Urine Color Yellow Urine Clarity Clear Urine pH 6.5 Ur Specific [place] 1.015 Urine Protein 500 H Urine Glucose (UA) 250 H Urine Ketones Negative Urine Occult Blood 50 H Urine Nitrite Negative Urine Bilirubin Negative Urine Urobilinogen Normal Ur Leukocyte Esterase Negative Urine RBC 0-5 SEEN Urine WBC 0-5 SEEN Ur Squamous Epith Cells 0-5 SEEN Urine Bacteria 0 SEEN Urine Mucus 0 SEEN Radiography Diagnostic Testing: Clinical Impression(s) from Imaging Studies Abdomen/Pelvis CT 04/11/22 19:37 IMPRESSION: 1. No acute findings. No hydronephrosis or obstructive uropathy. 2. Diverticulosis, no acute diverticulitis. 3. Renal cysts. Follow-up is not indicated per ACR guidelines. Electronically Signed: Carla Wallace MD at 21:32 EST Reading Location ID and State: [id number] / Tel , Service support , Treatment and Re-Evaluation Narrative: CBC reveals normal white count at 7.9 with 72% neutrophils. Chemistry studies reveal a BUN of 34 and a creatinine of 2.36. This is consistent with the patient's baseline. Glucose is 217. LFTs are unremarkable. Urinalysis is normal. CT flank reveals no acute findings. There is no hydronephrosis. Diverticulosis is noted but no evidence of diverticulitis. Test results are discussed with the patient. She will be treated with [place] at home and she has Zofran to use as needed for nausea. Return instructions are provided. Discharge Plan Triage Chief Complaint: Flank Pain ED Provider: Larisa Santillan Dx/Rx/DC Orders Clinical Impression: Flank pain Instructions: ED Flank Pain, Uncertain Cause Prescriptions: New hydrocodone-acetaminophen 5-325 mg tablet 1 tab PO Q6H PRN PRN (Reason: Pain) 3 Days Qty: 10 0RF No Action fenofibrate 160 mg tablet 160 mg PO DAILY Breo Ellipta 100-25 mcg/dose blister with device 1 inh inhalation DAILY modafinil [Provigil] 100 mg tablet 100 mg PO DAILY omeprazole 20 mg capsule,delayed release(DR/EC) 20 mg PO DAILY ondansetron 4 mg tablet,disintegrating 8 mg PO Q8H PRN PRN (Reason: Nausea) diphenoxylate-atropine [Lomotil] 2.5-0.025 mg tablet 1 tab PO BID PRN (Reason: diarrhea) Qty: 180 1RF doxycycline hyclate 100 mg capsule 100 mg PO BID Qty: 20 0RF duloxetine 60 MG capsule 60 mg PO QHS Label Comments: DEPRESSION AND PAIN CONTROL insulin regular hum U-500 conc 20 ML solution 2.2 units SC CONT Label Comments: insulin pump Rx Instructions: changed site today 02/19/20 trazodone 100 MG tablet 150 mg PO QHS Label Comments: SLEEP tramadol 50 MG tablet 50 mg PO TID PRN (Reason: Pain) Label Comments: pain ferrous sulfate 325 MG tablet 325 mg PO TIDCM Label Comments: anemia ergocalciferol (vitamin D2) 50,000 UNIT capsule 50,000 unit PO MOWEFR Label Comments: supplement albuterol sulfate 2.5 MG/3 ML solution for nebulization 2.5 mg INHALATION Q4H PRN PRN (Reason: Wheezing) Label Comments: shortness of breath gabapentin 800 MG tablet 800 mg PO TID Label Comments: nerve pain rosuvastatin 10 mg tablet 20 mg PO QHS Kerendia 10 mg Tablet 10 mg PO DAILY magnesium oxide 400 MG tablet 400 mg PO DAILYCM insulin aspart U-100 100 UNITS/ML insulin pen See Protocol SC ACHS Protocol: 6. Sliding Scale Insulin Custom Condition: mg/dl range Dose/Route: Number of Units Protocol Text: Custom Sliding Scale Label Comments: if blood sugar is over 200. calculate reading over 200. divide in half and give that many units of insulin. duloxetine 30 mg capsule,delayed release(DR/EC) 30 mg PO DAILY hydroxyzine pamoate 50 MG capsule 50 mg PO TID PRN (Reason: Anxiety) metoprolol tartrate 25 mg tablet 25 mg PO BID Qty: 180 3RF ursodiol 300 mg capsule 300 mg PO BID Qty: 180 3RF mesalamine [Pentasa] 500 mg capsule, extended release 1,000 mg PO BID Qty: 360 1RF hyoscyamine sulfate 0.125 mg tablet 0.125 mg PO BID-QID PRN (Reason: abdominal pain) Qty: 360 1RF Skyrizi 360 mg/2.4 mL (150 mg/mL) wearable injector 360 mg subcut .56 days Qty: 2.4 5RF Primary Care Provider: Johann Jimenez Referrals: Johann Jimenez MD [Primary Care Provider] - 3-5 Days if not improving Disposition Disposition: Home, Self Care
[2022-04-11 19:47] LABS: Bacteria 0 SEEN /hpf (None Seen); Mucous, Urine 0 SEEN /hpf (<or=2+)
[2022-04-11 19:50] LABS: Color, Urine Yellow (Yellow); Glucose, Dipstick 250 mg/dl (Normal); Ketone-Dipstick Negative (Negative); Leukocyte Esterase-Dipstick Negative /ul (Negative); Nitrite-Dipstick Negative (Negative); Occult Blood-Urine 50 /ul (Negative); Protein-Dipstick 500 mg/dl (Negative); Specific Gravity, Urine 1.015 (1.002-1.030); Urine Bilirubin Dipstick Negative (Negative); Urine Clarity Clear (Clear); Urine Urobilinogen Normal (Normal); Urine pH 6.5 (5.0 - 8.0)
[2022-04-11 20:04] LABS: Red Blood Cells-Urine 0-5 SEEN /hpf (0-5); Squamous Epithelial Cells - UA 0-5 SEEN /hpf (5-10); White Blood Cells 0-5 SEEN /hpf (0-5)
[2022-04-11 20:08] LABS: Absolute Lymphocyte Count 1.49 X10^3/uL (0.83-4.51); Absolute Neutrophil Count 5.7 X10^3/uL (2.0-7.7); Basophil# 0.01 X10^3/uL; Basophil% 0.1 % (0-1); Eosinophil# 0.14 X10^3/uL; Eosinophils% 1.8 % (0-5); Hematocrit 30.2 % (37-47); Lymphocyte # 1.49 X10^3/ul (0.83-4.51); Mean Corp Hgb Conc 33.1 g/dL (32-36); Mean Corpuscular Hgb 29.6 pg (27.0-32.0); Mean Corpuscular Volume 89.3 fL (81-99); Mean Platelet Vol. 11.1 fl (6.2-12.0); Monocyte# 0.42 X10^3/uL; Monocyte% 5.4 % (0-10); NRBC Flagged by Analyzer 0 % (0-5); Neutrophil # 5.66 X10^3/uL (2.7-7.7); Platelet Count 166 K/mm3 (150-450); RBC Distribution Width CV 14.7 % (11.6-14.6); RBC Distribution Width SD 46.8 fl (35.1-43.9); Red Blood Count 3.38 M/mm3 (4.2-5.4); White Blood Count 7.9 K/mm3 (4.4-11.0)
[2022-04-11 20:33] LABS: AST(SGOT) 23 U/L (15-37); Alanine Aminotransfer ALT/SGPT 16 U/L (13-56); Albumin, Serum 2.9 g/dL (3.2-5.0); Alkaline Phosphatase 93 U/L (45-117); Anion Gap 8 (5-15); BUN 34 mg/dL (7-18); BUN/Creat Ratio 14.4 RATIO (10-20); Bilirubin, Direct 0.11 mg/dL (0.00-0.30); Calcium,Total 8.8 mg/dL (8.5-10.1); Chloride 111 mmol/L (98-107); Creatinine, Serum 2.36 mg/dL (0.55-1.02); EST Glomerular Filtration Rate 23 mL/min (>60); Est Glom Filt Rate - Afr Amer 28 mL/min (>60); Globulin 4.5 g/dL (2.2-4.2); Glucose 217 mg/dL (74-106); Potassium 4.5 mmol/L (3.5-5.1); Protein, Total 7.4 g/dL (6.4-8.2); Sodium Level 143 mmol/L (136-145)
[2022-04-11 20:36] VITALS: BP 192/93; PULSE 94; RESP 18; O2SAT 95
[2022-04-11] MEDS: Morphine 4 MG/ML Syringe IV (20:39)
[2022-04-11] MEDS: proMETHazine 25 MG/ML Syringe 12.5 MG IM (20:40)
[2022-04-11 21:27] VITALS: BP 172/82; PULSE 92; RESP 15; O2SAT 94
[2022-04-11 22:33] VITALS: BP 162/91; PULSE 92; RESP 15; O2SAT 94
== END 2022-04-11 23:27 | disposition home or self-care (01) ==
PROVIDERS: Emergency Provider Emergency Medicine; PCP Family Medicine; Visit Provider Emergency Medicine
DX: R10.32 Left lower quadrant pain (principal); J44.9 Chronic obstructive pulmonary disease, unspecified; I27.20 Pulmonary hypertension, unspecified; E11.22 Type 2 diabetes mellitus with diabetic chronic kidney disease; E11.42 Type 2 diabetes mellitus with diabetic polyneuropathy; N18.5 Chronic kidney disease, stage 5; Z79.4 Long term (current) use of insulin; R19.7 Diarrhea, unspecified; R11.10 Vomiting, unspecified; Z87.19 Personal history of other diseases of the digestive system; F32.A Depression, unspecified; Z79.899 Other long term (current) drug therapy; D50.9 Iron deficiency anemia, unspecified; Z86.73 Personal history of transient ischemic attack (TIA), and cerebral infarction without residual deficits; K21.9 Gastro-esophageal reflux disease without esophagitis; Z90.49 Acquired absence of other specified parts of digestive tract; D63.1 Anemia in chronic kidney disease
CPT/HCPCS: 74176; 80048; 80076; 81001; 85025; 96372; 96374; 99282; J7030; A4216

== ENCOUNTER → 2022-04-15 | Outpatient (CLI) | payer MEDICARE, SELFPAY ==
[2022-04-15 09:10] VITALS: BP 165/75; PULSE 75; RESP 16; TEMP 36.1; O2SAT 96; BMI 34.8
[2022-04-15] MEDS: Dextrose 5% 250 ML 15 ML IV (09:31)
[2022-04-15 10:44] VITALS: BP 143/71; PULSE 74; RESP 16; TEMP 36.5; O2SAT 97
== END | disposition home or self-care (01) ==
LOC: MEDOUTP 08:55
PROVIDERS: PCP Family Medicine; Referring Provider Internal Medicine Gastroenterology; Visit Provider Internal Medicine Gastroenterology
DX: K50.90 Crohn's disease, unspecified, without complications (principal)
CPT/HCPCS: 96365; 96361; A4216; J2327

== ENCOUNTER → 2022-05-13 | Outpatient (CLI) | payer MEDICARE, SELFPAY ==
[2022-05-13 08:52] VITALS: BP 154/83; PULSE 76; RESP 16; TEMP 36.3; O2SAT 98; BMI 35.2
[2022-05-13] MEDS: Dextrose 5% 250 ML 15 ML IV (08:56)
[2022-05-13] MEDS: 0.9% NaCl Peripheral Flush Adult/Peds IV (08:56)
[2022-05-13 11:00] VITALS: BP 149/78; PULSE 73; RESP 16
== END | disposition home or self-care (01) ==
LOC: MEDOUTP 08:44
PROVIDERS: PCP Family Medicine; Referring Provider Internal Medicine Gastroenterology; Visit Provider Internal Medicine Gastroenterology
DX: K50.90 Crohn's disease, unspecified, without complications (principal)
CPT/HCPCS: 96365; A4216; J2327

== ENCOUNTER → 2022-05-27 | Outpatient (CLI) | payer MEDICARE, SELFPAY ==
[2022-05-27 13:44] LABS: Protein, Urine (Random) 677.4 mg/dL (<11.9); Protein:Creat Ratio 7078 mg/g CRE (0-200)
== END | disposition home or self-care (01) ==
LOC: POLAB3 12:02
PROVIDERS: PCP Family Medicine; Visit Provider Internal Medicine Nephrology
DX: N18.4 Chronic kidney disease, stage 4 (severe) (principal); N25.81 Secondary hyperparathyroidism of renal origin
CPT/HCPCS: 36415; 82570; 84156

== ENCOUNTER → 2022-05-29 | Outpatient (CLI) | payer MEDICARE, SELFPAY ==
--- NOTE | 2022-05-29 12:26 | VDUE_ITS ---
Reason For Study: CKD Right Arm Left Arm Right Cephalic Vein at the wrist measures Left Cephalic Vein at the wrist measures 0.19 x 0.22 cm. 0.19 x 0.23 cm. Right Cephalic Vein in the forearm measures Left Cephalic Vein in the forearm measures 0.10 x 0.13 cm. 0.27 x 0.29 cm. Right Cephalic Vein below antecub measures Left Cephalic Vein below antecub measures 0.09 x 0.11 cm. 0.34 x 0.32 cm. Right Cephalic Vein above antecub measures Left Cephalic Vein above antecub measures 0.14 x 0.15 cm. 0.35 x 0.38 cm. Right Cephalic Vein mid bicep measures 0.12 Left Cephalic Vein at mid bicep measures x 0.10 cm. 0.34 x 0.34 cm. Right Cephalic Vein at the shoulder measures Left Cephalic Vein at the shoulder measures 0.18 x 0.19 cm. 0.30 x 0.29 cm. Right Basilic Vein at the origin measures Basilic vein at origin measures 0.22 x 0.25 0.24 x 0.24 cm. cm. Right Basilic Vein mid bicep measures 0.27 x Basilic vein at bicep measures 0.19 x 0.20 0.27 cm. cm. Right Basilic Vein above antecub measures Basilic vein above antecub measures 0.17 x 0.25 x 0.26 cm. 0.17 cm. RT Brachial Artery - 0.29 x0.29cm - PSV LT Brachial Artery - 0.45 x 0.42cm - PSV 137.4cm/s 142.5cm/s RT Radial Artery - 0.24 x 0.24cm - PSV LT Radial Artery - 0.23 x 0.23cm - PSV 119.9cm/s. 109.5cm/s. VL/Dialysis Vein Map PRE-OP BILAT Interpretation Summary Patent and compressible bilateral upper extremity cephalic and basilic veins Small right cephalic vein throughout its course. Borderline right basilic vein of the upper arm Adequate left forearm and upper arm cephalic vein Borderline left basilic vein of the upper arm Smaller right brachial artery though normal flow right brachial and radial [place] Normal diameter and flow left brachial and radial arteries Ordering Physician: Ariel Summers Referring Physician: Johann Jimeenz Performed By: Den Toribio RVT ???
== END | disposition home or self-care (01) ==
LOC: CVS 12:25
PROVIDERS: PCP Family Medicine; Visit Provider Surgery
DX: M79.604 Pain in right leg (principal); N18.9 Chronic kidney disease, unspecified
CPT/HCPCS: 93985

== ENCOUNTER → 2022-06-16 | Outpatient (CLI) | payer MEDICARE, SELFPAY ==
--- NOTE | 2022-06-16 09:04 | US_ITS ---
STUDY: ABDOMINAL ULTRASOUND - RIGHT UPPER QUADRANT REASON FOR VISIT: Female, 51 years old . Fatty infiltration of the liver. TECHNIQUE: Ultrasound evaluation of the right upper quadrant was performed with real-time and static aldrich-scale imaging. TECHNICAL QUALITY: Limited. Examination limited due to obesity. COMPARISON: Comparison is made with prior examination dated June 21, 2021. FINDINGS: Liver: The liver is enlarged and measures 25.8 cm. There is increased echogenicity consistent with fatty infiltration. The bile ducts are within normal limits. There is hepatic color flow. The direction of portal flow is hepatopetal. There is no demonstrated mass lesion. Gallbladder: The patient is status post cholecystectomy. Common Bile Duct (C.B.D.): The common bile duct measures 7.1 mm. Pancreas: Normal size of the head, body of the pancreas. The tail portion was obscured due to overlying bowel gas. There is normal echogenicity of the pancreas. There is no demonstrated pancreatic mass or cyst. Right Kidney: Normal size of the right kidney. The right kidney measures 13.7 cm x 6.9 cm x 6.3 cm. Normal renal cortex. The right cortex measures 1.7 cm. 2 renal cysts are seen. The larger cyst measures 2.6 x 2.27 x 1.7 cm. This is in the medial midportion of the kidney. There is no right hydronephrosis. US/Abdomen Limited IMPRESSION: Hepatomegaly and fatty infiltration of the liver. Right renal cysts. Status post cholecystectomy. Electronically Signed: Naun Bethea MD at 12:59 EDT ,
--- NOTE | 2022-06-16 09:04 | US_ITS ---
STUDY: ABDOMINAL ULTRASOUND - ELASTOGRAPHY REASON FOR VISIT: Female, 51 years old. Hepatomegaly and fatty infiltration of the liver. TECHNIQUE: Liver stiffness measurements were obtained on a Perpetu RS 85 ultrasound machine using a CA 1-7 probe following the SRU guidelines. 3 measurements were obtained using a 2-D-SWE method. TheIQR/M was 14 % suggesting a quality data set. TECHNICAL QUALITY: Adequate. COMPARISON: Comparison is made with prior study June 21, 2021. FINDINGS: Liver: Hepatomegaly and fatty obstruction of the liver. Median liver stiffness measured 11.5 kPa. Abdomen: There is no demonstrated mass lesion. US/Elastography Parenchyma/Organ IMPRESSION: Liver stiffness measures 11.5 kPa compatible with F2-F3 (Mild to moderate liver fibrosis) Metavir score. Electronically Signed: Naun Bethea MD at 13:02 EDT ,
== END | disposition home or self-care (01) ==
LOC: US 09:03
PROVIDERS: PCP Family Medicine; Referring Provider Nurse Practitioner Adult Health; Visit Provider Nurse Practitioner Adult Health
DX: K75.81 Nonalcoholic steatohepatitis (NASH) (principal)
CPT/HCPCS: 76705; 76981

== ENCOUNTER 2022-06-20 07:54 | Day surgery (SDC) | payer MEDICARE, SELFPAY ==
--- NOTE | 2022-06-16 08:48 | EKG12_ITS ---
Test Reason : PREOP Blood Pressure : / mmHG Vent. Rate : 076 BPM Atrial Rate : 076 BPM P-R Int : 142 ms QRS Dur : 082 ms QT Int : 412 ms P-R-T Axes : 061 -23 124 degrees QTc Int : 463 ms Normal sinus rhythm ST & T wave abnormality, consider lateral ischemia Prolonged QT Abnormal ECG Confirmed by BRE KUMAR, CARLY ([id number]), sports editor AMI GODOY ([id number]) on 06/16/2022 11:18:09 AM Referred By: Ariel Summers Confirmed By:CARLY DÍAZ MD
[2022-06-16 10:13] LABS: Hematocrit 28.7 % (37-47); Hemoglobin 9.4 g/dL (12.0-15.0); Mean Corp Hgb Conc 32.8 g/dL (32-36); Mean Corpuscular Volume 94.7 fL (81-99); Mean Platelet Vol. 10.8 fl (6.2-12.0); Platelet Count 151 K/mm3 (150-450); RBC Distribution Width CV 14.2 % (11.6-14.6); RBC Distribution Width SD 47.8 fl (35.1-43.9); Red Blood Count 3.03 M/mm3 (4.2-5.4); White Blood Count 6.1 K/mm3 (4.4-11.0)
[2022-06-16 10:38] LABS: Anion Gap 3 (5-15); BUN 39 mg/dL (7-18); BUN/Creat Ratio 18.1 RATIO (10-20); Calcium,Total 9.1 mg/dL (8.5-10.1); Chloride 111 mmol/L (98-107); Creatinine, Serum 2.15 mg/dL (0.55-1.02); EST Glomerular Filtration Rate 26 mL/min (>60); Est Glom Filt Rate - Afr Amer 31 mL/min (>60); Glucose 181 mg/dL (74-106); Potassium 4.9 mmol/L (3.5-5.1); Sodium Level 140 mmol/L (136-145)
[2022-06-20] VITALS (14 sets, daily range): BP systolic 119–150; BP diastolic 67–76; PULSE 72–82; RESP 14–18; TEMP 36.1–36.8; O2SAT 85–98; BMI 35.9
--- NOTE | 2022-06-20 08:56 | HP.PCM_ITS ---
History and Physical Date of Admission: 06/20/22 Visit Reasons:?FISTULA Chief Complaint: Fistula consult Screen Printing Inspector Required: No Is patient in pain?: No Allergies atorvastatin [From Lipitor] Adverse Reaction (Severe, Verified 06/06/22 08:57) Vomitingoxycodone HCl [From Percocet] Adverse Reaction (Severe, Verified 06/06/22 08:57) Vomiting Medications duloxetine 60 mg capsule,delayed release 60 mg PO QHS depression 11/26/12 [History Confirmed 06/06/22] insulin regular hum U-500 conc 500 unit/mL subcutaneous soln 2.2 units subcut CONT insulin pump 10/02/15 [History Confirmed 06/06/22] trazodone 100 mg tablet 150 mg PO QHS sleep 12/27/15 [History Confirmed 06/06/22] ergocalciferol (vitamin D2) 1,250 mcg (50,000 unit) capsule 50,000 unit PO MOWEFR supplement 01/24/16 [History Confirmed 06/06/22] ferrous sulfate 325 mg (65 mg iron) tablet 325 mg PO TIDCM anemia 01/24/16 [History Confirmed 06/06/22] tramadol 50 mg tablet 50 mg PO TID PRN Pain 01/24/16 [History Confirmed 06/06/22] albuterol sulfate 2.5 mg/3 mL (0.083 %) solution for nebulization 2.5 mg inhalation Q4H PRN PRN Wheezing 06/09/16 [History Confirmed 06/06/22] gabapentin 800 mg tablet 800 mg PO TID neuropathy 05/19/17 [History Confirmed 06/06/22] rosuvastatin 10 mg tablet 20 mg PO QHS cholesterol 06/03/17 [History Confirmed 06/06/22] insulin aspart U-100 100 unit/mL (3 mL) subcutaneous pen See Protocol subcut ACHS diabetes 07/30/18 [History Confirmed 06/06/22] magnesium oxide 400 mg (241.3 mg magnesium) tablet 400 mg PO DAILYCM supplement 07/30/18 [History Confirmed 06/06/22] hydroxyzine pamoate 50 mg capsule 50 mg PO TID PRN Anxiety 02/20/20 [History Confirmed 06/06/22] duloxetine 30 mg capsule,delayed release 30 mg PO DAILY depression 05/09/20 [History Confirmed 06/06/22] fenofibrate 160 mg tablet 160 mg PO DAILY 05/29/20 [History Confirmed 06/06/22] fluticasone furoate 100 mcg-vilanterol 25 mcg/dose inhalation powder (Breo Ellipta) 1 inh inhalation DAILY 07/04/20 [History Confirmed 06/06/22] modafinil 100 mg tablet (Provigil) 100 mg PO DAILY 05/02/21 [History Confirmed 06/06/22] ursodiol 300 mg capsule 300 mg PO BID #180 caps 06/21/21 [Rx Confirmed 06/06/22] omeprazole 20 mg capsule,delayed release 20 mg PO DAILY 07/18/21 [History Confirmed 06/06/22] ondansetron 4 mg disintegrating tablet 8 mg PO Q8H PRN PRN Nausea 09/03/21 [History Confirmed 06/06/22] mesalamine 500 mg capsule,extended release (Pentasa) 1,000 mg PO BID Crohn's #360 caps 09/10/21 [Rx Confirmed 06/06/22] hyoscyamine sulfate 0.125 mg tablet 0.125 mg PO BID-QID PRN abdominal pain #360 tabs 10/17/21 [Rx Confirmed 06/06/22] diphenoxylate-atropine 2.5 mg-0.025 mg tablet (Lomotil) 1 tab PO BID PRN diarrhea #180 tabs 12/30/21 [Rx Confirmed 06/06/22] finerenone 10 mg tablet (Kerendia) 10 mg PO DAILY 03/04/22 [History Confirmed 06/06/22] risankizumab-rzaa 360 mg/2.4 mL (150 mg/mL) subcut wearable injector (Skyrizi) 360 mg (2.4 mL) subcut .56 days #2.4 mL 03/05/22 [Rx Confirmed 06/06/22] hydrocodone-acetaminophen 5-325mg 5mg-325mg 1 tab PO Q6H PRN PRN Pain 3 days #10 TABLETS 04/11/22 [Rx Confirmed 06/06/22] metoprolol tartrate 25 mg tablet 100 mg PO DAILY 05/14/22 [History Confirmed 06/06/22] PFSH Medical History? Abnormal CT scan, liver Acute kidney injury Alternating constipation and diarrhea Anemia of chronic disease Asthma Below-knee amputation of left lower extremity Cellulitis of left foot Cellulitis of right foot Chest pain CKD (chronic kidney disease) COPD (chronic obstructive pulmonary disease) COVID-19 virus detected Depression Diabetes mellitus Diastolic dysfunction GERD (gastroesophageal reflux disease) History of MRSA infection History of stroke Hx of pancreatitis Hypomagnesemia IBS (irritable bowel syndrome) Infection of right great toe due to methicillin resistant Staphylococcus aureus (MRSA) Iron (Fe) deficiency anemia Iron deficiency Lymphadenopathy, inguinal HINTON (nonalcoholic steatohepatitis) Nausea and vomiting Osteomyelitis of right foot Peripheral neuropathy Pulmonary hypertension Right middle lobe pneumonia SLE (systemic lupus erythematosus) Surgical History? History of amputation of hallux History of carpal tunnel surgery History of cholecystectomy History of eye surgery History of hernia repair History of hysterectomy History of liver biopsy History of lymph node biopsy History of temporal artery biopsy History of tubal ligation Partial nontraumatic amputation of right foot Status post transmetatarsal amputation of right foot Family History? Mother HypertensionGrandmother Hypertension Diabetes Social History? Smoking Status:? Never smoker alcohol intake:? current HPI HPI HPI: 51-year-old female is being referred by Dr. Emily Gandhi for creation of an arteriovenous access to facilitate hemodialysis.? The patient has chronic kidney disease stage IV.? A written copy of my surgical consult recommendations will return to her. Patient has additional medical problems of type 2 diabetes mellitus and iron deficiency anemia and systemic lupus erythematosus and Crohn's disease.? She is previous had a below-knee amputation. As of June 04, 2022 white count was 7.1 with a hemoglobin 10.2 hematocrit 30.7 and a platelet count of 207,000.? On May 28, 2022 BUN was 54 with a creatinine of 3.75 with an estimated GFR of 14 The patient is right arm dominant.? She has had a left BKA and walks with a prosthesis.? She has had amputation of all of the toes of her right foot and has orthotic. 4 months ago she was started on Skyrizi per GI. 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 She states she has not had any recent staph infections since her amputations of the toes on the right and the leg on the left May 29, 2022 Reason For Study: CKD Right Arm? Left Arm Right Cephalic Vein at the wrist measures? Left Cephalic Vein at the wrist measures 0.19 x 0.22 cm.? 0.19 x 0.23 cm. Right Cephalic Vein in the forearm measures? Left Cephalic Vein in the forearm measures 0.10 x 0.13 cm.? 0.27 x 0.29 cm. Right Cephalic Vein below antecub measures ? Left Cephalic Vein below antecub measures 0.09 x 0.11 cm.? 0.34 x 0.32 cm. Right Cephalic Vein above antecub measures ? Left Cephalic Vein above antecub measures 0.14 x 0.15 cm.? 0.35 x 0.38 cm. Right Cephalic Vein mid bicep measures 0.12? Left Cephalic Vein at mid bicep measures x 0.10 cm. ? 0.34 x 0.34 cm. Right Cephalic Vein at the shoulder measures ? Left Cephalic Vein at the shoulder measures 0.18 x 0.19 cm.? 0.30 x 0.29 cm. Right Basilic Vein at the origin measures? Basilic vein at origin measures 0.22 x 0.25 0.24 x 0.24 cm.? cm. Right Basilic Vein mid bicep measures 0.27 x ? Basilic vein at bicep measures 0.19 x 0.20 0.27 cm. ? cm. Right Basilic Vein above antecub measures? Basilic vein above antecub measures 0.17 x 0.25 x 0.26 cm.? 0.17 cm. RT Brachial Artery - 0.29 x0.29cm - PSV? LT Brachial Artery - 0.45 x 0.42cm - PSV 137.4cm/s? 142.5cm/s RT Radial Artery - 0.24 x 0.24cm - PSV ? LT Radial Artery - 0.23 x 0.23cm - PSV 119.9cm/s. ? 109.5cm/s. VL/Dialysis Vein Map PRE-OP BILAT Interpretation Summary Patent and compressible bilateral upper extremity cephalic and basilic veins Small right cephalic vein throughout its course. Borderline right basilic vein of the upper arm ? Adequate left forearm and upper arm cephalic vein Borderline left basilic vein of the upper arm ? Smaller right brachial artery though normal flow right brachial and radial arteries ? Normal diameter and flow left brachial and radial arteries ? ? ? Ordering Physician: Ariel Summers Referring Physician: Johann Jimenez Performed By: Den Toribio, RVT General General: Yes fatigue; No weight change, appetite, colon cancer, breast cancer or weakness HEENT HEENT: Yes eye surgery; No difficulty swallowing, swollen glands or hoarseness Endo Endocrine: Yes diabetes mellitus; No thyroid disease, thyroid cancer, Hair loss, heat intolerance or cold intolerance Skin Skin: No rash or changing moles Breast Breast: No left breast lump, right breast lump, nipple discharge, breast pain, abnormal mammogram, abnormal US or breast enlargement Musc Musculoskeletal: Yes back problems and arthritis; No rheumatoid arthritis, gout or joint pain Cardio Cardiovascular: Yes high blood pressure; No murmur, pacemaker, heart disease, atrial fibrillation, heart attack, heart stent, palpitations, shortness of breat with exertion or chest pain Psych Psychiatric: Yes depression and anxiety; No hearing voices Resp Respiratory: Yes shortness of breath, Yes sleep apnea, No cough, No COPD, Yes asthma, No emphysema and No wheezing Gastro Gastrointestinal: Yes abdominal pain, Yes nausea or vomiting, No diarrhea, Yes constipation, No blood in stool, Yes acid reflux, No hemorrhoids, No ulcers, Yes gallbladder problem and No black,tarry stools Shakir Hematologic: No blood thinners, No blood disorders, No bleeding, Yes anemia and No blood clots Neuro Neurologic: No system reviewed and no additional complaints, except as documented, No as per HPI, No abnormal gait, No abnormal hearing, No abnormal movements, No abnormal speech, No behavioral changes, No burning sensations, No confusion, No convulsions, No disequilibrium, No dizziness, No localized weakness, No frequent falls, No headache(s), No lack of coordination, No loss of vision, No memory loss, Yes numbness, No other visual disturbances, No radicular pain, No restless legs, No sensory deficit, No syncope, Yes tingling, No tremor(s), No weakness and No other Exam Const General: cooperative, comfortable and no acute distress [facility] Head: normal to inspection Eyes General: appearance normal, both eyes and all related structures Chest Chest palpation & inspection: normal inspection of the chest Resp Effort & Inspection: normal respiratory effort Auscultation: clear to auscultation bilaterally Cardio Rate: regular rate Rhythm: regular rhythm Other: Soft intermittent 2/6 systolic ejection murmur GI Palpation: soft Musc Other: Mild cervical kyphosis Skin Lesions: no lesions Neuro General: patient alert, patient awake and patient oriented x3 Extrem Other: Left upper extremity demonstrates a patent compressible cephalic vein of the forearm and upper arm.? At the level of the left wrist the cephalic vein is quite diminutive but approximately 6 cm more proximally the vein appears to be of adequate caliber. Left radial and ulnar arteries are palpable.? 2-3+ radial pulse.? She has a normal and brisk Henrique test demonstrating patency of the ulnar artery Psych Appearance: grossly normal Assessment and Plan Assessment and Plan (1) CKD (chronic kidney disease): ?Status:?Chronic ?Plan: I recommended the patient a left forearm radiocephalic arteriovenous hemodialysis fistula creation.? I would need to place this slightly more proximally to the wrist.? With the patient's present I described the technique, benefit, risk, alternatives.? She is well aware that there are no guarantees of success.? She is aware that additional maintenance procedures may be required.? She has had an opportunity to ask and have questions answered.? We will schedule procedure at her discretion. We will check with NIKI Bhardwaj regarding the patient's Skyrizi therapy. Copy: Dr. Emily Gandhi and NIKI Bhardwaj and Dr. Johann Summers M.D., F.A.C.S. I have examined the patient and the H&P has been reviewed. There are no clinical changes since date of exam. Ariel Summers M.D., F.A.C.S.
--- NOTE | 2022-06-20 09:34 | DCINST_ITS ---
Discharge Instructions Procedure Fistula Diet Discharge Diet: Renal Diet Activity Discharge Activity: May Not Drive (for 2-3 days or while taking narcotic pain medications.), May Shower and May Take a Tub Bath (in 5 days.) Lifting Restrictions: 5 pounds Keep extremity elevated above heart level: - (Keep arm elevated above the heart level for 3 days.) Dressing / Incision Call your doctor if your incision/area has: Continuous Slow Oozing, Sudden Increased Bleeding (apply pressure and call your doctor.), Increased Pain/ Swelling, Increased Redness and Foul Smelling Discharge Call your doctor if you observe: Fever of 101 or Higher Suture Line Care: Avoid Pulling/Pushing and Avoid Pinching/Bending Cleanse incision/area with: Keep Dressing Clean & Dry Additional Dressing/Incision Instructions:: Change or remove dressing in one day. May protect with a gauze bandaid. Follow Up Care Please Follow Up With: Ariel Summers MD When: Call [phone] to make an appointment for suture removal and follow up in 1 week. Test Results: Test results from this visit will be discussed in further detail at your follow- up appointment, if applicable. Discharge Plan Admission Attending Provider: Ariel Summers Primary Care Provider: Johann Jimenez Discharge Orders/Prescriptions Prescriptions: No Action fenofibrate 160 mg tablet 43 mg PO DAILY omeprazole 20 mg capsule,delayed release(DR/EC) 40 mg PO DAILY ondansetron 4 mg tablet,disintegrating 8 mg PO Q8H PRN PRN (Reason: Nausea) diphenoxylate-atropine [Lomotil] 2.5-0.025 mg tablet 1 tab PO BID PRN (Reason: diarrhea) Qty: 180 1RF metoprolol tartrate 25 mg tablet 100 mg PO BID duloxetine 60 MG capsule 60 mg PO QHS Label Comments: DEPRESSION AND PAIN CONTROL insulin regular hum U-500 conc 20 ML solution 2.2 units SC CONT Label Comments: insulin pump Rx Instructions: changed site today 02/19/20 trazodone 100 MG tablet 150 mg PO QHS Label Comments: SLEEP tramadol 50 MG tablet 50 mg PO TID PRN (Reason: Pain) Label Comments: pain ferrous sulfate 325 MG tablet 325 mg PO TIDCM Label Comments: anemia ergocalciferol (vitamin D2) 50,000 UNIT capsule 50,000 unit PO MOWEFR Label Comments: supplement albuterol sulfate 2.5 MG/3 ML solution for nebulization 2.5 mg INHALATION Q4H PRN PRN (Reason: Wheezing) Label Comments: shortness of breath gabapentin 800 MG tablet 800 mg PO TID Label Comments: nerve pain rosuvastatin 10 mg tablet 20 mg PO QHS magnesium oxide 400 MG tablet 400 mg PO DAILYCM insulin aspart U-100 100 UNITS/ML insulin pen See Protocol SC ACHS Protocol: 6. Sliding Scale Insulin Custom Condition: mg/dl range Dose/Route: Number of Units Protocol Text: Custom Sliding Scale Label Comments: if blood sugar is over 200. calculate reading over 200. divide in half and give that many units of insulin. duloxetine 30 mg capsule,delayed release(DR/EC) 30 mg PO DAILY hydroxyzine pamoate 50 MG capsule 50 mg PO TID PRN (Reason: Anxiety) ursodiol 300 mg capsule 300 mg PO BID mesalamine [Pentasa] 500 mg capsule, extended release 1,000 mg PO BID Qty: 360 1RF hyoscyamine sulfate 0.125 mg tablet 0.125 mg PO BID-QID PRN (Reason: abdominal pain) Qty: 360 1RF Skyrizi 360 mg/2.4 mL (150 mg/mL) wearable injector 360 mg subcut .56 days Qty: 2.4 5RF Referrals / Follow Up: Johann Jimenez MD [Primary Care Provider] - Disposition Disposition (needs filled in before D/C Order can be placed): Home, Self Care
[2022-06-20] MEDS: Cefazolin 2 GM in 0.9% Normal Saline 100 ML IV (09:51)
[2022-06-20 10:01] LABS: Bedside Glucose 179 mg/dL (74-106)
[2022-06-20] MEDS: Bupivacaine 0.25% 30 ML Vial (11:00)
[2022-06-20] MEDS: Lidocaine 1% (20 ml mdv) 20 ML Vial (11:00)
[2022-06-20] MEDS: Heparin Injection (Vial) 5,000 UNIT/ML VIAL 5000 UNIT (11:10)
--- NOTE | 2022-06-20 11:21 | PCM.OPRPT ---
Report of Operation Date of Procedure: 06/20/22 Pre-Operative Diagnosis: Stage IV chronic renal failure Post-Operative Diagnosis: Same Surgery/Procedure Performed:: Left forearm radial to cephalic arteriovenous hemodialysis fistula creation Description of Surgical Findings:: Timeout informed consent was obtained. 59-year-old female was taken to the operating room placed on the table underwent monitored anesthesia care. Ancef 2 g given intravenously. Ultrasound mapping of the left cephalic vein was performed. It was diminutive at the risk. About 6 to 8 cm more proximally on the forearm there was a branch point. I mapped the vein at that point. I mapped the radial artery. Subsequent of the left extremity sterilely prepped and draped. 1% lidocaine mixed 50-50 with 0.5% Marcaine was used as a local anesthetic. A total of 21 cc was used. Local was instilled an oblique incision was created sharp blunt dissection used to identify the cephalic vein it was tediously and carefully dissected free proximally and distally at a branch point where I selected been very tedious dissection was used identify the radial artery in this location was deeply placed and tedious dissection was required I then mobilized the artery for distance. The patient received 9000 units of heparin. The vein was ligated distally with hemoclips and then I spatulated at the branch point. It had been ink doreen. It was irrigated. Then peripheral vascular clamps were placed on the radial artery and 11 blade was used to make an arteriotomy which was extended with Minaya scissors. A end-to-side venous to arterial anastomosis was created with a running 7-0 Prolene. I felt that I had a very nice wide open anastomosis. There is excellent flow with good Doppler triphasic signal. It seemed to have a good positional lie. Hemostasis was intact. Approximated the deep tissue with interrupted 3-0 Vicryl. Skin edges proximal and running subicular 4 Monocryl. Steri-Strips Telfa tape dressings applied. Sponge and instrument and needle counts were reported to the surgeon to be correct. Specimen none. Drains none. Blood loss minimal. The patient was taken to the recovery area in satisfied condition without apparent complication. Her hand appeared to be viable at the completion as well. Ariel Summers M.D., F.A.C.S. Surgeon: Ariel Summers Type of Anesthesia: Local MAC
[2022-06-20 12:00] LABS: Bedside Glucose 253 mg/dL (74-106)
== END 2022-06-20 15:30 | disposition home or self-care (01) ==
LOC: SDC 07:54 → AC 07:54
PROVIDERS: PCP Family Medicine; Referring Provider Surgery; Visit Provider Surgery
PROC: (CPT 36818; principal; 2022-06-20 09:45)
DX: N18.4 Chronic kidney disease, stage 4 (severe) (principal); Z89.512 Acquired absence of left leg below knee; M32.9 Systemic lupus erythematosus, unspecified; I27.20 Pulmonary hypertension, unspecified; K50.90 Crohn's disease, unspecified, without complications; E11.22 Type 2 diabetes mellitus with diabetic chronic kidney disease; Z96.41 Presence of insulin pump (external) (internal); D50.9 Iron deficiency anemia, unspecified; D63.1 Anemia in chronic kidney disease; Z86.14 Personal history of Methicillin resistant Staphylococcus aureus infection; K75.81 Nonalcoholic steatohepatitis (NASH); F32.A Depression, unspecified; Z86.73 Personal history of transient ischemic attack (TIA), and cerebral infarction without residual deficits
CPT/HCPCS: 36818; 01844; 36415; 80048; 82962; 85027; 93005; A4648; J7040; J2405

== ENCOUNTER 2022-07-03 15:42 | Emergency (ER) | payer MEDICARE, SELFPAY ==
[2022-07-03 15:45] VITALS: BP 209/103; PULSE 99; RESP 18; TEMP 36.3; O2SAT 99; BMI 34.4
--- NOTE | 2022-07-03 15:47 | EKG12_ITS ---
Test Reason : CHEST PAIN Blood Pressure : / mmHG Vent. Rate : 096 BPM Atrial Rate : 096 BPM P-R Int : 140 ms QRS Dur : 084 ms QT Int : 364 ms P-R-T Axes : 052 -27 101 degrees QTc Int : 459 ms Normal sinus rhythm Minimal voltage criteria for LVH, may be normal variant ( R in aVL ) Abnormal QRS-T angle, consider primary T wave abnormality Abnormal ECG Confirmed by BRE KUMAR, CARLY ([id number]), food expeditor AMI GODOY ([id number]) on 07/04/2022 8:53:54 AM Referred By: BB Confirmed By:CARLY DÍAZ MD
--- NOTE | 2022-07-03 16:25 | RAD_ITS ---
INDICATION: Chest pain. EXAMINATION/TECHNIQUE: X-RAY - XR Chest 1 View COMPARISON: August, chest x-ray. FINDINGS: LINES/DEVICES: None. LUNGS: No focal consolidation or pleural effusion. No pneumothorax. MEDIASTINUM AND CARDIOVASCULAR STRUCTURES: Cardiac silhouette not enlarged. Central airways and mediastinal contour are unremarkable. BONES AND SOFT TISSUES: Stable degenerative changes. RAD/Chest 1 View (Portable) IMPRESSION: No acute cardiopulmonary disease. Electronically Signed: Farooq Mccollum MD at 16:39 EDT ,
[2022-07-03 16:34] LABS: Absolute Lymphocyte Count 0.98 X10^3/uL (0.83-4.51); Absolute Neutrophil Count 3.9 X10^3/uL (2.0-7.7); Basophil# 0.01 X10^3/uL; Basophil% 0.2 % (0-1); Eosinophil# 0.08 X10^3/uL; Eosinophils% 1.5 % (0-5); Lymphocyte # 0.98 X10^3/ul (0.83-4.51); Lymphocyte % 18.1 % (19-41); Mean Corpuscular Hgb 30.5 pg (27.0-32.0); Mean Corpuscular Volume 98.3 fL (81-99); Mean Platelet Vol. 10.4 fl (6.2-12.0); Monocyte% 7.4 % (0-10); NRBC Flagged by Analyzer 0 % (0-5); Neutrophil % 71.9 % (47-70); Platelet Count 171 K/mm3 (150-450); RBC Distribution Width CV 14.7 % (11.6-14.6); RBC Distribution Width SD 52.7 fl (35.1-43.9); Red Blood Count 2.95 M/mm3 (4.2-5.4); White Blood Count 5.4 K/mm3 (4.4-11.0)
--- NOTE | 2022-07-03 16:41 | ED.VIS.CHEST ---
HPI History of Present Illness Chief Complaint: Chest Pain Narrative Narrative: 52-year-old female presenting with chest pain. She states she woke up with it this morning about 2 AM and has been intermittent all day long. She is also had some tightening up into her neck which is associated with it as well as some sweating today. Patient states that a couple of weeks ago she saw Dr. Summers for a fistula. This was placed. She had a preop EKG performed at that time. Patient previously known to the heart group as she had a cardiac cath with them at 1 point. She called the heart group to talk to them and they reviewed her EKG and states she had EKG changes on the EKG she had a couple of weeks ago and with her chest pain she should go to the ER. Patient denies cough, fever she denies history of [place]. She denies history of cardiac stent. Patient with history of kidney disease, anemia of chronic disease, lupus, diabetes, asthma, [place]. Patient does report that she had a history of a DVT in her left upper extremity for which she was anticoagulated. She also had a clot in her abdomen at some point but she states she was not on blood thinners for this. [facility] Medical History Abnormal CT scan, liver Acute kidney injury Alternating constipation and diarrhea Anemia of chronic disease Anxiety Arthritis Asthma Below-knee amputation of left lower extremity Cardiology follow-up encounter Cellulitis of left foot Cellulitis of right foot CKD (chronic kidney disease) COPD (chronic obstructive pulmonary disease) COVID-19 virus detected CPAP (continuous positive airway pressure) dependence Depression Diabetes mellitus Diastolic dysfunction Dietary restriction DVT (deep venous thrombosis) Fatty liver GERD (gastroesophageal reflux disease) High cholesterol History of below-knee amputation of left lower extremity History of Crohn's disease History of echocardiogram History of hiatal hernia History of Holter monitoring History of MRSA infection History of stress test History of stroke Hx of pancreatitis Hypertension Hypomagnesemia IBS (irritable bowel syndrome) Infection of right great toe due to methicillin resistant Staphylococcus aureus (MRSA) Insulin dependent diabetes mellitus Iron (Fe) deficiency anemia Iron deficiency Lymphadenopathy, inguinal BEVERLY (nonalcoholic steatohepatitis) Nausea and vomiting Non-smoker Open wound Osteomyelitis of right foot Peripheral neuropathy Pulmonary hypertension Right middle lobe pneumonia Seasonal allergies Seizures Shortness of breath on exertion SLE (systemic lupus erythematosus) Sleep apnea TIA (transient ischemic attack) Uses prosthesis Uses wheelchair Wears glasses Home Medications duloxetine 60 mg capsule,delayed release 60 mg PO QHS depression 11/26/12 [History Last Taken 01/19/17] insulin regular hum U-500 conc 500 unit/mL subcutaneous soln 2.2 units subcut CONT insulin pump 10/02/15 [History Last Taken 01/19/17] trazodone 100 mg tablet 150 mg PO QHS sleep 12/27/15 [History Last Taken 01/18/17] ergocalciferol (vitamin D2) 1,250 mcg (50,000 unit) capsule 50,000 unit PO MOWEFR supplement 01/24/16 [History Last Taken 01/19/17] ferrous sulfate 325 mg (65 mg iron) tablet 325 mg PO TIDCM anemia 01/24/16 [History Last Taken 01/19/17] tramadol 50 mg tablet 50 mg PO TID PRN Pain 01/24/16 [History Last Taken 01/19/17] albuterol sulfate 2.5 mg/3 mL (0.083 %) solution for nebulization 2.5 mg inhalation Q4H PRN PRN Wheezing 06/09/16 [History Last Taken 09/01/16] gabapentin 800 mg tablet 800 mg PO TID neuropathy 05/19/17 [History Last Taken Unknown] rosuvastatin 10 mg tablet 20 mg PO QHS cholesterol 06/03/17 [History Last Taken Unknown] insulin aspart U-100 100 unit/mL (3 mL) subcutaneous pen See Protocol subcut ACHS diabetes 07/30/18 [History Last Taken Unknown] magnesium oxide 400 mg (241.3 mg magnesium) tablet 400 mg PO DAILYCM supplement 07/30/18 [History Last Taken Unknown] hydroxyzine pamoate 50 mg capsule 50 mg PO TID PRN Anxiety 02/20/20 [History Last Taken Unknown] duloxetine 30 mg capsule,delayed release 30 mg PO DAILY depression 05/09/20 [History Last Taken Unknown] fenofibrate 160 mg tablet 43 mg PO DAILY 05/29/20 [History Last Taken Unknown] omeprazole 20 mg capsule,delayed release 40 mg PO DAILY 07/18/21 [History Last Taken 06/20/22] ondansetron 4 mg disintegrating tablet 8 mg PO Q8H PRN PRN Nausea 09/03/21 [History Last Taken Unknown] mesalamine 500 mg capsule,extended release (Pentasa) 1,000 mg PO BID Crohn's #360 caps 09/10/21 [Rx Last Taken Unknown] hyoscyamine sulfate 0.125 mg tablet 0.125 mg PO BID-QID PRN abdominal pain #360 tabs 10/17/21 [Rx Last Taken Unknown] diphenoxylate-atropine 2.5 mg-0.025 mg tablet (Lomotil) 1 tab PO BID PRN diarrhea #180 tabs 12/30/21 [Rx Last Taken Unknown] risankizumab-rzaa 360 mg/2.4 mL (150 mg/mL) subcut wearable injector (Skyrizi) 360 mg (2.4 mL) subcut .56 days #2.4 mL 03/05/22 [Rx Last Taken Unknown] metoprolol tartrate 25 mg tablet 100 mg PO BID 05/14/22 [History Last Taken 06/20/22] ursodiol 300 mg capsule 300 mg PO BID LIVER 06/13/22 [History Last Taken Unknown] cephalexin 500 mg capsule 500 mg PO BID 5 days #10 caps 06/30/22 [Rx Last Taken Unknown] Allergy/AdvReac Type Severity Reaction Status Date / Time atorvastatin [From Lipitor] AdvReac Severe Vomiting Verified 07/03/22 15:48 oxycodone HCl [From Percocet] AdvReac Severe Vomiting Verified 07/03/22 15:48 Family History Mother Hypertension Grandmother Hypertension Diabetes Surgical History History of amputation of hallux History of carpal tunnel surgery History of cholecystectomy History of eye surgery History of hernia repair History of hysterectomy History of lithotripsy History of liver biopsy History of lymph node biopsy History of temporal artery biopsy History of tubal ligation Partial nontraumatic amputation of right foot Status post transmetatarsal amputation of right foot Social History Smoking Status: Never smoker alcohol intake: current ROS ROS ED Constitutional Constitutional ED: Denies chills or fever(s) Eyes Eyes: Denies none ENT ENT ED: Denies rhinorrhea or sore throat Cardiovascular Cardiovascular: Reports chest pain Respiratory/Chest Respiratory/Chest: Reports dyspnea; Denies cough Gastrointestinal Gastrointestinal: Denies abdominal pain, constipation or nausea Genitourinary Genitourinary ED: Denies dysuria or hematuria Musculoskeletal Musculoskeletal: Denies arthralgias Integumentary Denies abscess Neurologic Neurologic: Denies headache(s) or paresthesias Psychiatric Psychiatric: Denies anxiety or depression Endocrine Endocrinology: Denies cold intolerance or heat intolerance EXAM Physical Exam Const Vital Signs: 07/03/22 15:45 07/03/22 18:52 07/03/22 18:52 Temperature 97.3 F L Temperature Source Temporal Pulse Rate 99 84 Respiratory Rate 18 16 Blood Pressure 209/103 H 185/86 H Blood Pressure Mean 138 119 Pulse Ox 99 98 Oxygen Delivery Method Room Air Room Air Room Air Positive obese General Appearance ED: NAD Nutritional Appearance: obese HEENT Reports moist mucous membranes normocephalic and atraumatic Eyes PERRL and EOMs intact bilaterally Chest Wall inspection of chest normal and palpation of chest normal Resp normal respiratory effort and clear to auscultation bilaterally Auscultation: Negative for rales, rhonchi or wheezes Cardio regular rate and regular rhythm GI normal to inspection, nondistended, normoactive bowel sounds Neuro oriented x3 and CN's II-XII intact bilaterally Sensorium / Orientation: awake and alert Motor Exam: strength 5/5 throughout Psych mental status grossly normal Skin no rashes or lesions noted and no wounds Heart Score History: Slightly/Non-Suspicious ECG: Normal Age: >45 - <65 years Risk Factors: >/= 3 Risk Factors or History of CAD Score: 3 MDM MDM MDM Narrative Medical decision making narrative: Patient presenting with chest pain and shortness of breath. She called [facility] and patient referred to the ER. They reviewed her previous EKG which showed some abnormalities which are new. I did not see the EKG because they faxed it over and there is some ST depressions in V5 and V6 which were new from previous EKG. Today those are not present. EKG normal sinus rhythm with a ventricular rate of 96 bpm without signs of ischemic change or ectopy. Differential includes ACS, PE, pneumonia, electrolyte abnormalities, dehydration, CHF. CBC obtained to assess white blood cell count, hemoglobin, platelets, differential. BMP to assess renal function, electrolytes, glucose, anion gap. BNP to assess for CHF, D-dimer to assess for PE, high-sensitivity troponin EKG and chest x-ray will be obtained as well. CBC shows a normal white blood cell count of 5.4. Hemoglobin stable at 9.0. Platelets are normal. Creatinine at 2.25 and this is her baseline. Electrolytes are normal. LFTs are normal. Lipase is normal chest x-ray was obtained and on my interpretation shows no acute cardiopulmonary process. The radiologist interprets this and agrees. D-dimer was elevated today so she did have a CTA of the chest which was negative for acute PE, dissection, pneumonia. She did get hydration protocol before and after her CT given her kidney function. All results were discussed with her. Her high-sensitivity troponin initially 20 and cycling 21. There is no significant interval change. Patient feels well enough to be discharged home. Return precautions were discussed. Impression: 1. Chest pain 2. dyspnea Lab Data Attestation: I reviewed the patient's lab results. Labs: Laboratory Results - last 24 hr 07/03/22 07/03/22 07/03/22 16:14 16:14 16:14 WBC 5.4 RBC 2.95 L Hgb 9.0 L Hct 29.0 L MCV 98.3 MCH 30.5 MCHC 31.0 L RDW Std Deviation 52.7 H RDW Coeff of Michael 14.7 H Plt Count 171 MPV 10.4 Immature Gran % (Auto) 0.900 Neut % (Auto) 71.9 H Lymph % (Auto) 18.1 L Turner % (Auto) 7.4 Eos % (Auto) 1.5 Baso % (Auto) 0.2 Absolute Neuts (auto) 3.9 Absolute Lymphs (auto) 0.98 Nucleated RBC % 0 D-Dimer Quant (PE/DVT) Sodium 139 Potassium 4.9 Chloride 109 H Carbon Dioxide 23.0 Anion Gap 7 BUN 39 H Creatinine 2.25 H Estim Creat Clear Calc 27.69 Est GFR (MDRD) Af Amer 30 L Est GFR (MDRD) Non-Af 24 L BUN/Creatinine Ratio 17.3 Glucose 286 H Calcium 9.3 Total Bilirubin Direct Bilirubin AST ALT Alkaline Phosphatase Troponin I High Sens 20 B-Natriuretic Peptide 93.4 Total Protein Albumin Globulin Lipase 07/03/22 07/03/22 07/03/22 16:14 17:50 18:40 WBC RBC Hgb Hct MCV MCH MCHC RDW Std Deviation RDW Coeff of Michael Plt Count MPV Immature Gran % (Auto) Neut % (Auto) Lymph % (Auto) Turner % (Auto) Eos % (Auto) Baso % (Auto) Absolute Neuts (auto) Absolute Lymphs (auto) Nucleated RBC % D-Dimer Quant (PE/DVT) 1.09 H* Sodium Potassium Chloride Carbon Dioxide Anion Gap BUN Creatinine Estim Creat Clear Calc Est GFR (MDRD) Af Amer Est GFR (MDRD) Non-Af BUN/Creatinine Ratio Glucose Calcium Total Bilirubin 0.30 Direct Bilirubin 0.10 AST 17 ALT 17 Alkaline Phosphatase 89 Troponin I High Sens 21 B-Natriuretic Peptide Total Protein 7.1 Albumin 2.9 L Globulin 4.2 Lipase 73 Radiography Diagnostic Testing: Clinical Impression(s) from Imaging Studies Chest X-Ray 07/03/22 16:25 IMPRESSION: No acute cardiopulmonary disease. Electronically Signed: Farooq Mccollum MD at 16:39 EDT , Chest CTA 07/03/22 18:41 IMPRESSION: No pulmonary embolism or aortic dissection. Stable right thyroid nodule. Stable splenomegaly. Electronically Signed: Farooq Mccollum MD at 19:59 EDT , Discharge Plan Triage Chief Complaint: Chest Pain ED Provider: Zurdo Mazariegos Dx/Rx/DC Orders Instructions: ED Chest Pain, Noncardiac, ED Dyspnea Prescriptions: No Action fenofibrate 160 mg tablet 43 mg PO DAILY omeprazole 20 mg capsule,delayed release(DR/EC) 40 mg PO DAILY ondansetron 4 mg tablet,disintegrating 8 mg PO Q8H PRN PRN (Reason: Nausea) diphenoxylate-atropine [Lomotil] 2.5-0.025 mg tablet 1 tab PO BID PRN (Reason: diarrhea) Qty: 180 1RF metoprolol tartrate 25 mg tablet 100 mg PO BID cephalexin 500 mg capsule 500 mg PO BID 5 Days Qty: 10 0RF duloxetine 60 MG capsule 60 mg PO QHS Label Comments: DEPRESSION AND PAIN CONTROL insulin regular hum U-500 conc 20 ML solution 2.2 units SC CONT Label Comments: insulin pump Rx Instructions: changed site today 02/19/20 trazodone 100 MG tablet 150 mg PO QHS Label Comments: SLEEP tramadol 50 MG tablet 50 mg PO TID PRN (Reason: Pain) Label Comments: pain ferrous sulfate 325 MG tablet 325 mg PO TIDCM Label Comments: anemia ergocalciferol (vitamin D2) 50,000 UNIT capsule 50,000 unit PO MOWEFR Label Comments: supplement albuterol sulfate 2.5 MG/3 ML solution for nebulization 2.5 mg INHALATION Q4H PRN PRN (Reason: Wheezing) Label Comments: shortness of breath gabapentin 800 MG tablet 800 mg PO TID Label Comments: nerve pain rosuvastatin 10 mg tablet 20 mg PO QHS magnesium oxide 400 MG tablet 400 mg PO DAILYCM insulin aspart U-100 100 UNITS/ML insulin pen See Protocol SC ACHS Protocol: 6. Sliding Scale Insulin Custom Condition: mg/dl range Dose/Route: Number of Units Protocol Text: Custom Sliding Scale Label Comments: if blood sugar is over 200. calculate reading over 200. divide in half and give that many units of insulin. duloxetine 30 mg capsule,delayed release(DR/EC) 30 mg PO DAILY hydroxyzine pamoate 50 MG capsule 50 mg PO TID PRN (Reason: Anxiety) ursodiol 300 mg capsule 300 mg PO BID mesalamine [Pentasa] 500 mg capsule, extended release 1,000 mg PO BID Qty: 360 1RF hyoscyamine sulfate 0.125 mg tablet 0.125 mg PO BID-QID PRN (Reason: abdominal pain) Qty: 360 1RF Skyrizi 360 mg/2.4 mL (150 mg/mL) wearable injector 360 mg subcut .56 days Qty: 2.4 5RF Primary Care Provider: Johann Jimenez Referrals: Johann Jimenez MD [Primary Care Provider] - Disposition Disposition: Home, Self Care
[2022-07-03 16:46] LABS: Anion Gap 7 (5-15); BUN 39 mg/dL (7-18); BUN/Creat Ratio 17.3 RATIO (10-20); Calcium,Total 9.3 mg/dL (8.5-10.1); Chloride 109 mmol/L (98-107); Creatinine, Serum 2.25 mg/dL (0.55-1.02); EST Glomerular Filtration Rate 24 mL/min (>60); Est Glom Filt Rate - Afr Amer 30 mL/min (>60); Estimated Creatinine Clearance 27.69 ml/min; Glucose 286 mg/dL (74-106); Potassium 4.9 mmol/L (3.5-5.1); Sodium Level 139 mmol/L (136-145); Troponin-I HS (w/2H Reflex) 20 pg/mL (3.0-54.0)
[2022-07-03 17:00] LABS: BNP,B-Type NATRIURETIC PEPTIDE 93.4 pg/mL (0-100)
[2022-07-03 17:15] LABS: AST(SGOT) 17 U/L (15-37); Alanine Aminotransfer ALT/SGPT 17 U/L (13-56); Albumin, Serum 2.9 g/dL (3.2-5.0); Alkaline Phosphatase 89 U/L (45-117); Globulin 4.2 g/dL (2.2-4.2); Lipase 73 U/L (13-75); Protein, Total 7.1 g/dL (6.4-8.2)
[2022-07-03 18:19] LABS: Reflex Troponin-HS? (from REC) Y
[2022-07-03 18:41] LABS: D-Dimer Quantitative (DVT/PE) 1.09 FEU/ug/m (0.27-0.49)
--- NOTE | 2022-07-03 18:41 | CT_ITS ---
STUDY: CTA CHEST REASON FOR EXAM: Female, 52 years old. Chest pain RADIATION DOSAGE (If Supplied By Facility): CTDIvol = ( 12.56 ) mGy, DLP = ( 521.10 ) mGycm TECHNIQUE: The examination was performed with the intravenous administration of IV 100mL [id number]. Post-processing of the angiographic images was performed, with multiplanar reformation and 3D reconstruction. Individualized dose optimization techniques were used for this CT. COMPARISON: November 15, 2021 CT chest. October 03, 2017 CTA chest. FINDINGS: Upper normal caliber. Normal enhancement of the main pulmonary artery and right and left pulmonary arteries. Normal enhancement of the bilateral peripheral pulmonary arteries. There is no demonstrated pulmonary embolism. Normal caliber thoracic aorta. No dissection. Normal heart size. No pericardial effusion. No significant coronary artery calcification. Lungs are clear. No pleural effusion. No pneumothorax. No mediastinal or hilar adenopathy. Trachea and esophagus are unremarkable.] Right thyroid nodule with coarse calcification at the margin, unchanged. Nodule measures 1.9 cm in diameter. Stable splenomegaly, 15.9 cm AP. No acute abnormality in the visualized upper abdomen. Stable mild degenerative changes of the thoracic spine. No acute osseous injury. CT/CTA Chest W/WO Contrast IMPRESSION: No pulmonary embolism or aortic dissection. Stable right thyroid nodule. Stable splenomegaly. Electronically Signed: Farooq Mccollum MD at 19:59 EDT ,
[2022-07-03 18:52] VITALS: BP 185/86; PULSE 84; RESP 16; O2SAT 98
[2022-07-03 19:00] VITALS: RESP 14
[2022-07-03 19:03] LABS: Troponin-I HS 21 pg/mL (3.0-54.0)
[2022-07-03] MEDS: Ondansetron 4 MG/2 ML Vial IV (19:58)
[2022-07-03 20:00] VITALS: RESP 16
== END 2022-07-03 21:14 | disposition home or self-care (01) ==
PROVIDERS: Emergency Provider Student in an Organized Health Care Education/Training Program; PCP Family Medicine; Visit Provider Student in an Organized Health Care Education/Training Program
DX: R07.9 Chest pain, unspecified (principal); J44.9 Chronic obstructive pulmonary disease, unspecified; E11.42 Type 2 diabetes mellitus with diabetic polyneuropathy; E11.22 Type 2 diabetes mellitus with diabetic chronic kidney disease; N18.5 Chronic kidney disease, stage 5; I12.0 Hypertensive chronic kidney disease with stage 5 chronic kidney disease or end stage renal disease; N25.1 Nephrogenic diabetes insipidus; Z79.4 Long term (current) use of insulin; E78.00 Pure hypercholesterolemia, unspecified; Z79.01 Long term (current) use of anticoagulants; Z86.718 Personal history of other venous thrombosis and embolism; F32.A Depression, unspecified; Z79.899 Other long term (current) drug therapy; G47.30 Sleep apnea, unspecified; D63.1 Anemia in chronic kidney disease; F41.9 Anxiety disorder, unspecified; J45.909 Unspecified asthma, uncomplicated; K21.9 Gastro-esophageal reflux disease without esophagitis; Z99.89 Dependence on other enabling machines and devices; D50.9 Iron deficiency anemia, unspecified; R06.00 Dyspnea, unspecified; E55.9 Vitamin D deficiency, unspecified
CPT/HCPCS: 36415; 71045; 71275; 80048; 80069; 80076; 83690; 83880; 83970; 84484; 85025; 85379; 93005; 96374; 99284; Q9967; J2405

== ENCOUNTER → 2022-07-03 | Outpatient (CLI) | payer MEDICARE, SELFPAY ==
[2022-07-03 07:13] LABS: BUN 41 mg/dL (7-18); BUN/Creat Ratio 16.9 RATIO (10-20); Calcium,Total 8.5 mg/dL (8.5-10.1); Chloride 108 mmol/L (98-107); Creatinine, Serum 2.43 mg/dL (0.55-1.02); EST Glomerular Filtration Rate 22 mL/min (>60); Est Glom Filt Rate - Afr Amer 27 mL/min (>60); Glucose 413 mg/dL (74-106); Phosphorus 4.2 mg/dL (2.5-4.9); Potassium 5.2 mmol/L (3.5-5.1); Sodium Level 138 mmol/L (136-145)
[2022-07-03 08:48] LABS: PTHIN 304.1 pg/mL (18.4-80.1)
== END | disposition home or self-care (01) ==
LOC: LAB 06:10
PROVIDERS: PCP Family Medicine; Referring Provider Internal Medicine Nephrology; Visit Provider Internal Medicine Nephrology
DX: N18.5 Chronic kidney disease, stage 5 (principal); N25.81 Secondary hyperparathyroidism of renal origin; E55.9 Vitamin D deficiency, unspecified
CPT/HCPCS: 36415; 80069; 83970

== ENCOUNTER 2022-08-05 06:58 | Day surgery (SDC) | payer MEDICARE, SELFPAY ==
[2022-08-04 07:15] VITALS: BMI 35.3
--- NOTE | 2022-08-05 07:35 | HP.PCM_ITS ---
History and Physical Date of Admission: 08/05/22 Visit Reasons:?FISTULA CHECK Chief Complaint: fistula check Health Technician Hearing Required: No Is patient in pain?: No Allergies atorvastatin [From Lipitor] Adverse Reaction (Severe, Verified 07/31/22 08:24) Vomitingoxycodone HCl [From Percocet] Adverse Reaction (Severe, Verified 07/31/22 08:24) Vomiting Medications duloxetine 60 mg capsule,delayed release 60 mg PO QHS depression 11/26/12 [History Confirmed 07/31/22] insulin regular hum U-500 conc 500 unit/mL subcutaneous soln 2.2 units subcut CONT insulin pump 10/02/15 [History Confirmed 07/31/22] trazodone 100 mg tablet 150 mg PO QHS sleep 12/27/15 [History Confirmed 07/31/22 ] ergocalciferol (vitamin D2) 1,250 mcg (50,000 unit) capsule 50,000 unit PO MOWEFR supplement 01/24/16 [History Confirmed 07/31/22] ferrous sulfate 325 mg (65 mg iron) tablet 325 mg PO TIDCM anemia 01/24/16 [History Confirmed 07/31/22] tramadol 50 mg tablet 50 mg PO TID PRN Pain 01/24/16 [History Confirmed 07/31/22] albuterol sulfate 2.5 mg/3 mL (0.083 %) solution for nebulization 2.5 mg inhalation Q4H PRN PRN Wheezing 06/09/16 [History Confirmed 07/31/22] gabapentin 800 mg tablet 800 mg PO TID neuropathy 05/19/17 [History Confirmed 07/31/22] rosuvastatin 10 mg tablet 20 mg PO QHS cholesterol 06/03/17 [History Confirmed 07/31/22] insulin aspart U-100 100 unit/mL (3 mL) subcutaneous pen See Protocol subcut ACHS diabetes 07/30/18 [History Confirmed 07/31/22] magnesium oxide 400 mg (241.3 mg magnesium) tablet 400 mg PO DAILYCM supplement 07/30/18 [History Confirmed 07/31/22] hydroxyzine pamoate 50 mg capsule 50 mg PO TID PRN Anxiety 02/20/20 [History Confirmed 07/31/22] duloxetine 30 mg capsule,delayed release 30 mg PO DAILY depression 05/09/20 [History Confirmed 07/31/22] fenofibrate 160 mg tablet 43 mg PO DAILY 05/29/20 [History Confirmed 07/31/22] omeprazole 20 mg capsule,delayed release 40 mg PO DAILY 07/18/21 [History Confirmed 07/31/22] ondansetron 4 mg disintegrating tablet 8 mg PO Q8H PRN PRN Nausea 09/03/21 [History Confirmed 07/31/22] mesalamine 500 mg capsule,extended release (Pentasa) 1,000 mg PO BID Crohn's #360 caps 09/10/21 [Rx Confirmed 07/31/22] hyoscyamine sulfate 0.125 mg tablet 0.125 mg PO BID-QID PRN abdominal pain #360 tabs 10/17/21 [Rx Confirmed 07/31/22] diphenoxylate-atropine 2.5 mg-0.025 mg tablet (Lomotil) 1 tab PO BID PRN diarrhea #180 tabs 12/30/21 [Rx Confirmed 07/31/22] risankizumab-rzaa 360 mg/2.4 mL (150 mg/mL) subcut wearable injector (Skyrizi) 360 mg (2.4 mL) subcut .56 days #2.4 mL 03/05/22 [Rx Confirmed 07/31/22] metoprolol tartrate 25 mg tablet 100 mg PO BID 05/14/22 [History Confirmed 07/31/22] ursodiol 300 mg capsule 300 mg PO BID LIVER 06/13/22 [History Confirmed 07/31/22] amlodipine 5 mg tablet 5 mg PO DAILY #30 tabs 07/30/22 [Rx Confirmed 07/31/22] epoetin regan-epbx 20,000 unit/2 mL injection solution (Retacrit) 20,000 unit subcut ONCE PRN 07/30/22 [History Confirmed 07/31/22] PFSH Medical History?(Updated 07/31/22 @ 09:00 by Sarah COLUNGA PAReynaldo) Abnormal CT scan, liver Acute kidney injury Alternating constipation and diarrhea Anemia of chronic disease Anxiety Arthritis Asthma Below-knee amputation of left lower extremity Cardiology follow-up encounter Cellulitis of left foot Cellulitis of right foot CKD (chronic kidney disease) COPD (chronic obstructive pulmonary disease) COVID-19 virus detected CPAP (continuous positive airway pressure) dependence Depression Diabetes mellitus Diastolic dysfunction Dietary restriction DVT (deep venous thrombosis) Fatty liver GERD (gastroesophageal reflux disease) High cholesterol History of below-knee amputation of left lower extremity History of Crohn's disease History of echocardiogram History of hiatal hernia History of Holter monitoring History of MRSA infection History of stress test History of stroke Hx of pancreatitis Hypertension Hypomagnesemia IBS (irritable bowel syndrome) Infection of right great toe due to methicillin resistant Staphylococcus aureus (MRSA) Insulin dependent diabetes mellitus Iron (Fe) deficiency anemia Iron deficiency Lymphadenopathy, inguinal HINTON (nonalcoholic steatohepatitis) Nausea and vomiting Non-smoker Open wound Osteomyelitis of right foot Peripheral neuropathy Pulmonary hypertension Right middle lobe pneumonia Seasonal allergies Seizures Shortness of breath on exertion SLE (systemic lupus erythematosus) Sleep apnea TIA (transient ischemic attack) Uses prosthesis Uses wheelchair Wears glasses Surgical History?(Updated 07/31/22 @ 08:37 by Kemi Franklin) History of amputation of hallux History of carpal tunnel surgery History of cholecystectomy History of eye surgery History of hernia repair History of hysterectomy History of lithotripsy History of liver biopsy History of lymph node biopsy History of temporal artery biopsy History of tubal ligation Partial nontraumatic amputation of right foot S/P arteriovenous (AV) fistula creation Status post transmetatarsal amputation of right foot Family History? Mother HypertensionGrandmother Hypertension Diabetes Social History? Smoking Status:? Never smoker alcohol intake:? current HPI HPI Surgical H&P: Yes HPI: Patient is a 52 y/o F I am following for chronic renal failure. Patient is s/p left forearm radial to cephalic arteriovenous hemodialysis fistula creation by Dr. Summers on 06/20/22.?Patient returns for routine follow-up of her fistula. She notes that her thumb discomfort has completely resolved. Patient notes that she is noticing that the vibration from the fistula has decreased since last visit. Patient is not currently on dialysis. She is not currently on any blood thinners. Patient has never had a fistulogram previously. ROS General General: Yes fatigue; No weight change, appetite, colon cancer, breast cancer or weakness HEENT HEENT: Yes eye surgery; No difficulty swallowing, swollen glands or hoarseness Endo Endocrine: Yes diabetes mellitus; No thyroid disease, thyroid cancer, Hair loss, heat intolerance or cold intolerance Skin Skin: No rash or changing moles Breast Breast: No left breast lump, right breast lump, nipple discharge, breast pain, abnormal mammogram, abnormal US or breast enlargement Musc Musculoskeletal: Yes back problems and arthritis; No rheumatoid arthritis, gout or joint pain Cardio Cardiovascular: Yes high blood pressure; No murmur, pacemaker, heart disease, atrial fibrillation, heart attack, heart stent, palpitations, shortness of breat with exertion or chest pain Psych Psychiatric: Yes depression and anxiety; No hearing voices Resp Respiratory: Yes shortness of breath, Yes sleep apnea, No cough, No COPD, Yes asthma, No emphysema and No wheezing Gastro Gastrointestinal: Yes abdominal pain, Yes nausea or vomiting, No diarrhea, Yes constipation, No blood in stool, Yes acid reflux, No hemorrhoids, No ulcers, Yes gallbladder problem and No black,tarry stools Shakir Hematologic: No blood thinners, No blood disorders, No bleeding, Yes anemia and No blood clots Neuro Neurologic: No system reviewed and no additional complaints, except as documented, No as per HPI, No abnormal gait, No abnormal hearing, No abnormal movements, No abnormal speech, No behavioral changes, No burning sensations, No confusion, No convulsions, No disequilibrium, No dizziness, No localized weakness, No frequent falls, No headache(s), No lack of coordination, No loss of vision, No memory loss, Yes numbness, No other visual disturbances, No radicular pain, No restless legs, No sensory deficit, No syncope, Yes tingling, No tremor(s), No weakness and No other Exam Const General: cooperative, healthy appearing, comfortable and no acute distress [facility] Head: normal to inspection Eyes General: appearance normal, both eyes and all related structures Neck Neck: normal visual inspection Neck mass: No Resp Effort & Inspection: normal respiratory effort Auscultation: clear to auscultation bilaterally Cardio Rate: regular rate Rhythm: regular rhythm GI Inspection: normal to inspection Palpation: soft Auscultation: normal bowel sounds Musc Cervical Spine: normal cervical lordosis Skin General: no rashes or lesions noted Neuro General: no focal motor deficits and CN's II-XI intact bilaterally Extrem General: normal to inspection Other: Left forearm AV fistula- incision c/d/i. Good pulse. Diminished bruit and thrill. Incision nicely healed Psych Appearance: grossly normal Affect: normal affect Assessment and Plan Assessment and Plan (1) Problem with dialysis access: ?Status:?Acute ?Plan: Dr. Summers will plan to perform a left forearm radial to cephalic fistulogram with carbon dioxide due to failure to mature. Procedure details, risks and benefits have been explained to the patient. Patient has had the opportunity to ask and have questions answered. Patient verbally understands and agrees with the plan I have examined the patient and the H&P has been reviewed. There are no clinical changes since date of exam. Ariel Summers M.D., F.A.C.S.
--- NOTE | 2022-08-05 08:55 | PCM.OPRPT ---
Report of Operation Date of Procedure: 08/05/22 Pre-Operative Diagnosis: Failure to mature left mid forearm radiocephalic arteriovenous hemodialysis fistula Post-Operative Diagnosis: Left forearm radiocephalic arteriovenous hemodialysis fistula proximal venous stenosis and relative arterial anastomotic stenosis Surgery/Procedure Performed:: Left upper extremity fistulogram with 4 x 2 Powerflex angioplasty and 5 x 2 Cutting Balloon angioplasty Description of Surgical Findings:: Timeout informed consent was obtained. 52-year-old female was taken to the special procedures lab placed on the table the left upper extremity was sterilely prepped and draped throughout the procedure she received a total of 100 mcg of fentanyl and 1 mg of Versed is intravenous sedation under ultrasound guidance closer to the antecubital space 2% lidocaine was instilled and then retrograde with flow micropuncture needle inserted micropuncture wire inserted 6 [place] short sheath dilator inserted using an 035 Glidewire and a 4 [place] glide cath I attempted to gain access into the radial artery proximal anastomosis but was not successful. Using carbon dioxide attained an imaging study which admittedly was of borderline quality. I then elected to do a very gentle balloon dilatation of the anastomosis with over the angled Glidewire placed a 4 x 2 Powerflex balloon. Balloon angioplasty was performed I withdrew the balloon slightly and then was able to get the Glidewire into the radial artery proximal anastomosis and repeated the 4 mm balloon angioplasty at that site. There was evidence of persistent venous stenosis approximately 3 cm from the anastomosis so then I exchanged out for a SV 5 wire placed a 5 x 2 Cutting Balloon performed the initial and insufflation and at 10 brian of pressure when the patient had discomfort. We held some pressure on the arm withdrew the balloon over the wire replaced a 4 mm balloon reinsufflated that to 3 brian and held that for a minute. Subsequently did a fistulogram this time using 1 cc of contrast due to with 2 cc of saline for better definition and the anastomosis appeared to be patent as did the proximal portion of the fistula 1 focal area of residual narrowing but no evidence of any gross extravasation I agree placed the 5 x 2 Cutting Balloon and repeated some angioplasty of the very proximal portion of the fistula about 4 cm from the anastomosis that was treated with angioplasty only up to 6 brian of pressure. At that point she was noting some discomfort. After a minute of cold withdrew that balloon placed a 4 [place] glide cath and got a completion study with again 1 additional cc of contrast diluted with 2 cc of saline this demonstrated the anastomosis appeared to be patent in the proximal portion of the fistula appeared to be patent and wide open there was no extravasation. I then used carbon dioxide imaging to finish the upper arm and central chest outflow. She tolerated all that really pretty well there were no apparent complications at the completion of the procedure she was comfortable with no pain. The fistula had a palpable pulse and thrill. Sheath was removed few suture of 4-0 nylon was placed in a digital simple suture of 4-0 nylon was placed hemostasis was intact she was taken to the recovery area in satisfactory condition. Imaging demonstrates a left mid forearm radial cephalic arteriovenous hemodialysis fistula. There is a relative anastomotic stenosis and in the proximal portion of the fistula there were 2 areas of at least 70% stenosis. There appeared to be good upper arm outflow possibly some stenosis of the cephalic vein just proximal to the antecubital space but that study was done with carbon dioxide and the flow was quick so I did not repeat it with contrast there was very good left upper arm basilic flow outflow and apparently good central venous outflow. Impression Successfully treated balloon maturation angioplasty left mid forearm radiocephalic arteriovenous hemodialysis fistula Specimens none. Drains none. Contrast used 2 cc. Blood loss minimal. Ariel Summers M.D., F.A.C.S. Surgeon: Ariel Summers Type of Anesthesia: IV Sedation and Local
== END 2022-08-05 10:00 | disposition home or self-care (01) ==
LOC: CLSP 07:00
PROVIDERS: PCP Family Medicine; Referring Provider Surgery; Visit Provider Surgery
DX: T82.590A Other mechanical complication of surgically created arteriovenous fistula, initial encounter (principal); N18.9 Chronic kidney disease, unspecified; Z96.41 Presence of insulin pump (external) (internal); I70.90 Unspecified atherosclerosis; Z86.73 Personal history of transient ischemic attack (TIA), and cerebral infarction without residual deficits
CPT/HCPCS: 36902; 76937; 99152; 99153; C1725; Q9967; C1769

== ENCOUNTER → 2022-08-11 | Outpatient (CLI) | payer MEDICARE, SELFPAY ==
--- NOTE | 2022-08-11 07:59 | ECHOD_ITS ---
Reason For Study: DYSPNEA Procedure This was a 2D Doppler, Color Flow transthoracic echocardiogram. Exam performed in department. Left Ventricle Normal LV size. Left ventricular systolic function is lower limits of normal. The estimated ejection fraction is 50 %. No regional wall motion abnormalities noted. Right Ventricle Normal RV size. Normal systolic function. Atria The left atrium is mildly enlarged. Normal right atrium. Mitral Valve Normal mitral valve. Tricuspid Valve Normal tricuspid valve. Mild (1+) tricuspid valve insufficiency. Pulmonary artery systolic pressure is 28 mmHg. Aortic Valve The aortic valve is not well visualized. Pulmonic Valve The pulmonic valve is not well visualized. Great Vessels Normal aortic root. The pulmonary artery is normal size. Inferior vena cava collapse with respiration. Pericardium/Pleural No pericardial effusion. MMode/2D Measurements & Calculations RVDd: 3.9 cm Ao root diam: 3.6 cm LAV(MOD-bp): 83.2 ml LAV(MOD-bp) Indexed: 40.0 ml/m2 LAV(MOD-sp2): 90.8 ml LAV(MOD-sp4): 74.3 ml SV(MOD-sp4): 58.6 ml SV(sp4-el): 59.6 ml LVAd ap4: 34.1 cm2 LVLd ap4: 8.5 cm EDV(MOD-sp4): 116.1 ml EDV(sp4-el): 116.3 ml LVAs ap4: 21.8 cm2 LVLs ap4: 7.1 cm ESV(MOD-sp4): 57.5 ml ESV(sp4-el): 56.7 ml EF(MOD-sp4): 50.5 % EF(sp4-el): 51.3 % LA A4 area: 22.6 cm2 RA A4 area: 16.0 cm2 Time Measurements MV dec time: 0.20 sec Doppler Measurements & Calculations MV E max john: 89.0 cm/sec Lat Peak E' John: 6.6 cm/sec Med Peak E' John: 4.7 cm/sec MV A max john: 85.3 cm/sec E/E' lat: 13.4 E/E' med: 19.1 MV E/A: 1.0 MV V2 max: 97.9 cm/sec MV dec slope: 446.6 cm/sec2 Ao V2 max: 166.2 cm/sec MV max P.8 mmHg Ao max P.1 mmHg MV V2 mean: 67.2 cm/sec Ao V2 mean: 119.5 cm/sec MV mean P.0 mmHg Ao mean P.5 mmHg MV V2 VTI: 31.6 cm Ao V2 VTI: 36.4 cm AV (velocity ratio): 0.73 LV V1 max: 127.7 cm/sec MR max john: 424.4 cm/sec TR max john: 249.1 cm/sec LV V1 max P.5 mmHg MR max P.1 mmHg TR max P.8 mmHg LV V1 mean P.6 mmHg LV V1 mean: 87.7 cm/sec LV V1 VTI: 26.5 cm ECHO/Echo Complete Interpretation Summary Normal LV size. Left ventricular systolic function is lower limits of normal. The estimated ejection fraction is 50 %. Pulmonary artery systolic pressure is 28 mmHg. Mild (1+) tricuspid valve insufficiency. Ordering Physician: Gillian Box Referring Physician: Gillian Box Performed By: Angela Sequeira and Student
== END | disposition home or self-care (01) ==
LOC: CVS 07:58
PROVIDERS: PCP Family Medicine; Referring Provider Nurse Practitioner Gerontology; Visit Provider Nurse Practitioner Gerontology
DX: I10 Essential (primary) hypertension (principal); R06.00 Dyspnea, unspecified
CPT/HCPCS: 93225; 93226; 93306

== ENCOUNTER → 2022-09-01 | Outpatient (CLI) | payer MEDICARE, SELFPAY ==
[2022-09-01 17:14] LABS: Hematocrit 26.2 % (37-47); Hemoglobin 8.5 g/dL (12.0-15.0); Mean Corp Hgb Conc 32.4 g/dL (32-36); Mean Corpuscular Volume 95.6 fL (81-99); Mean Platelet Vol. 11.1 fl (6.2-12.0); Platelet Count 173 K/mm3 (150-450); RBC Distribution Width CV 14.1 % (11.6-14.6); RBC Distribution Width SD 48.9 fl (35.1-43.9); Red Blood Count 2.74 M/mm3 (4.2-5.4); White Blood Count 6.3 K/mm3 (4.4-11.0)
[2022-09-01 17:50] LABS: Albumin, Serum 2.6 g/dL (3.2-5.0); BUN 42 mg/dL (7-18); BUN/Creat Ratio 16.7 RATIO (10-20); Calcium,Total 8.6 mg/dL (8.5-10.1); Chloride 113 mmol/L (98-107); Creatinine, Serum 2.52 mg/dL (0.55-1.02); EST Glomerular Filtration Rate 21 mL/min (>60); Est Glom Filt Rate - Afr Amer 26 mL/min (>60); Glucose 264 mg/dL (74-106); Phosphorus 3.3 mg/dL (2.5-4.9); Potassium 4.4 mmol/L (3.5-5.1); Sodium Level 141 mmol/L (136-145)
[2022-09-01 17:52] LABS: Anion Gap 5 (5-15); BUN 40 mg/dL (7-18); BUN/Creat Ratio 15.1 RATIO (10-20); Calcium,Total 8.4 mg/dL (8.5-10.1); Chloride 114 mmol/L (98-107); Creatinine, Serum 2.65 mg/dL (0.55-1.02); EST Glomerular Filtration Rate 20 mL/min (>60); Est Glom Filt Rate - Afr Amer 24 mL/min (>60); Ferritin 427 ng/mL (8-252); Glucose 257 mg/dL (74-106); Iron 32 ug/dL (50-170); Iron Binding Capacity,Total 214 ug/dL (250-450); Potassium 4.4 mmol/L (3.5-5.1); Sodium Level 143 mmol/L (136-145)
[2022-09-01 17:55] LABS: Vitamin D,25 Hydroxy 30.4 ng/mL
[2022-09-02 08:37] LABS: PTHIN 224.7 pg/mL (18.4-80.1)
== END | disposition home or self-care (01) ==
LOC: LAB 16:24
PROVIDERS: Nurse Practitioner Family; PCP Family Medicine; Referring Provider Internal Medicine Nephrology; Visit Provider Internal Medicine Nephrology
DX: N18.4 Chronic kidney disease, stage 4 (severe) (principal); N25.81 Secondary hyperparathyroidism of renal origin; E55.9 Vitamin D deficiency, unspecified
CPT/HCPCS: 36415; 80048; 80069; 82306; 82728; 83540; 83550; 83970; 85027

== ENCOUNTER → 2022-09-02 | Outpatient (CLI) | payer MEDICARE, SELFPAY ==
[2022-09-02 16:09] LABS: BNP,B-Type NATRIURETIC PEPTIDE 200.6 pg/mL (0-100)
[2022-09-02 16:11] LABS: Anion Gap 2 (5-15); BUN 39 mg/dL (7-18); BUN/Creat Ratio 16.9 RATIO (10-20); Chloride 115 mmol/L (98-107); Creatinine, Serum 2.31 mg/dL (0.55-1.02); EST Glomerular Filtration Rate 24 mL/min (>60); Est Glom Filt Rate - Afr Amer 29 mL/min (>60); Glucose 65 mg/dL (74-106); Potassium 4.2 mmol/L (3.5-5.1); Sodium Level 143 mmol/L (136-145)
== END | disposition home or self-care (01) ==
LOC: LAB 14:40
PROVIDERS: PCP Family Medicine; Referring Provider Nurse Practitioner Gerontology; Visit Provider Nurse Practitioner Gerontology
DX: N18.9 Chronic kidney disease, unspecified (principal); D63.1 Anemia in chronic kidney disease; R06.00 Dyspnea, unspecified
CPT/HCPCS: 36415; 80048; 83880

== ENCOUNTER → 2022-09-04 | Outpatient (CLI) | payer MEDICARE, SELFPAY ==
--- NOTE | 2022-09-04 14:10 | AVDS_ITS ---
Reason For Study: assess for central venous obstruction, complications of vascular device LEFT Inflow, 191.3/89.2 cm/sec. Inflow, 235.6 ml/min. Prox anast, 793.6/522.7 cm/sec. Prox anast, 1215 ml/min. Prox graft, 921.0/628.4 cm/sec. Prox graft, 914.7 ml/min. Mid graft, 252.2/125.1 cm/sec. Mid graft, 551.0 ml/min. Photographic Plate Maker V at mid graft with a velocity of 255.2/125.4 cm/sec and a volume flow of 742.4 ml/min. Distal graft, 39.5/18.0 cm/sec. Distal graft, 90.4 ml/min. Outflow, 49.3/26.6 cm/sec. Outflow, 99.9 ml/min. Area in Cephalic V of possible stenosis with a velocity of 229.4/113.9 cm/s and a volume flow of 293.6 ml/min. Radial art mid forearm 327.2cm/s. Radial art prox forearm 289.4 cm/s. Brachial art at median cubital 261.7 cm/s. Brachial art mid bicep 252.1 cm/s. Brachial art upper arm 261.4 cm/s. VL/AV Fistula/Dialysis Graft Scan Interpretation Summary Flow within the radial artery just proximal to the anastomosis is at 235 mm/min which is low The anastomosis itself is measured at only 0.22 cm in diameter and has a flow o f 1215 mm/min which is elevated The mid fistula flow is close to normal at 551 mm/min There is a ell teacher noted in the proximal forearm going into the deep venous system.This ell teacher this ell teacher appears to be taking a significant amount of flow de ep At the shoulder the outflow vein appears to be of normal diameter with a lower flow at 99 mm/min and has had a diameter 0.4 x 0.47 cm Ordering Physician: Sarah Waggoner Performed By: Kevin Tang RVAnthony
== END | disposition home or self-care (01) ==
LOC: CVS 14:09
PROVIDERS: PCP Family Medicine; Referring Provider Physician Assistant; Visit Provider Physician Assistant
DX: T82.898A Other specified complication of vascular prosthetic devices, implants and grafts, initial encounter (principal)
CPT/HCPCS: 93990

== ENCOUNTER 2022-09-17 09:53 | Day surgery (SDC) | payer MEDICARE, SELFPAY ==
[2022-09-16 07:29] VITALS: BMI 35.3
--- NOTE | 2022-09-17 10:32 | HP.PCM_ITS ---
History and Physical Date of Admission: 09/17/22
--- NOTE | 2022-09-17 10:32 | PCM.HP.BLA ---
History and Physical Date of Admission: 09/17/22 Chief Complaint: wound check Allergies atorvastatin [From Lipitor] Adverse Reaction (Severe, Verified 09/02/22 14:02) Vomitingoxycodone HCl [From Percocet] Adverse Reaction (Severe, Verified 09/02/22 14:02) Vomiting Medications duloxetine 60 mg capsule,delayed release 60 mg PO QHS depression 11/26/12 [History Confirmed 09/02/22] insulin regular hum U-500 conc 500 unit/mL subcutaneous soln 2.2 units subcut CONT insulin pump 10/02/15 [History Confirmed 09/02/22] trazodone 100 mg tablet 150 mg PO QHS sleep 12/27/15 [History Confirmed 09/02/22] ergocalciferol (vitamin D2) 1,250 mcg (50,000 unit) capsule 50,000 unit PO MOWEFR supplement 01/24/16 [History Confirmed 09/02/22] ferrous sulfate 325 mg (65 mg iron) tablet 325 mg PO TIDCM anemia 01/24/16 [History Confirmed 09/02/22] albuterol sulfate 2.5 mg/3 mL (0.083 %) solution for nebulization 2.5 mg inhalation Q4H PRN PRN Wheezing 06/09/16 [History Confirmed 09/02/22] gabapentin 800 mg tablet 800 mg PO TID neuropathy 05/19/17 [History Confirmed 09/02/22] rosuvastatin 10 mg tablet 20 mg PO QHS cholesterol 06/03/17 [History Confirmed 09/02/22] insulin aspart U-100 100 unit/mL (3 mL) subcutaneous pen See Protocol subcut ACHS diabetes 07/30/18 [History Confirmed 09/02/22] magnesium oxide 400 mg (241.3 mg magnesium) tablet 400 mg PO DAILYCM supplement 07/30/18 [History Confirmed 09/02/22] hydroxyzine pamoate 50 mg capsule 50 mg PO TID PRN Anxiety 02/20/20 [History Confirmed 09/02/22] duloxetine 30 mg capsule,delayed release 30 mg PO DAILY depression 05/09/20 [History Confirmed 09/02/22] fenofibrate 160 mg tablet 43 mg PO DAILY 05/29/20 [History Confirmed 09/02/22] omeprazole 20 mg capsule,delayed release 40 mg PO DAILY 07/18/21 [History Confirmed 09/02/22] ondansetron 4 mg disintegrating tablet 8 mg PO Q8H PRN PRN Nausea 09/03/21 [History Confirmed 09/02/22] metoprolol tartrate 25 mg tablet 100 mg PO BID 05/14/22 [History Confirmed 09/02/22] epoetin regan-epbx 20,000 unit/2 mL injection solution (Retacrit) 20,000 unit subcut ONCE 07/30/22 [History Confirmed 09/02/22] diphenoxylate-atropine 2.5 mg-0.025 mg tablet (Lomotil) 1 tab PO BID PRN diarrhea #180 tabs 08/04/22 [Rx Confirmed 09/02/22] hyoscyamine sulfate 0.125 mg tablet 0.125 mg PO BID-QID PRN abdominal pain #360 tabs 08/04/22 [Rx Confirmed 09/02/22] risankizumab-rzaa 360 mg/2.4 mL (150 mg/mL) subcut wearable injector (Skyrizi) 360 mg (2.4 mL) subcut .COMPLEX #2.4 mL 08/04/22 [Rx Confirmed 09/02/22] ursodiol 300 mg capsule 300 mg PO BID LIVER #180 caps 08/04/22 [Rx Confirmed 09/02/22] mesalamine 500 mg capsule,extended release (Pentasa) 1,000 mg (2 x 500 mg) PO BID Crohn's #360 caps 08/06/22 [Rx Confirmed 09/02/22] amlodipine 5 mg tablet 5 mg PO DAILY #30 tabs 08/22/22 [Rx Confirmed 09/02/22] Subjective Details: Patient is a 52 y/o F I am following for chronic renal failure. Patient is s/p left forearm radial to cephalic arteriovenous hemodialysis fistula creation by Dr. Summers on 06/20/22.?Patient returns for routine follow-up of her fistula. Patient has since had a fistulogram on 08/05/22 with carbon dioxide. Findings included venous stenosis at the proximal portion. A 4 x 2 Powerflex angioplasty and 5 x 2 cutting balloon angioplasty was performed. Patient returns for a 3 week follow-up. She has noted since the procedure she has had numbness and heaviness in the forearm when her arm is bent or if she goes to grasp any solid items. She notes the feeling of almost dropping items when picking them up. Patient also notes swelling of the left forearm. She does note that she elevates the arm and places ice over top of the forearm, which somewhat helps. Patient is not currently on dialysis. Dr. Gandhi is her lapper. Objective Details: Left forearm AV fistula- good pulse, bruit and thrill. 1+ pitting edema of the left forearm. No signs of arterial steal syndrome. Discomfort noted throughout the entire forearm. Coding Level of Care Code Global Post Op Diagnoses Problem with dialysis access T82.898A [facility] Medical History (Reviewed 09/02/22 @ 14:02 by Gillian Box ESTATE PLANNING DIRECTOR, ESTATE PLANNING DIRECTOR-C) Abnormal CT scan, liver Acute kidney injury Alternating constipation and diarrhea Anemia of chronic disease Anxiety Arthritis Asthma Below-knee amputation of left lower extremity Cardiology follow-up encounter Cellulitis of left foot Cellulitis of right foot CKD (chronic kidney disease) COPD (chronic obstructive pulmonary disease) COVID-19 virus detected CPAP (continuous positive airway pressure) dependence Depression Diabetes mellitus Diastolic dysfunction Dietary restriction DVT (deep venous thrombosis) Fatty liver GERD (gastroesophageal reflux disease) High cholesterol History of below-knee amputation of left lower extremity History of Crohn's disease History of echocardiogram History of hiatal hernia History of Holter monitoring History of MRSA infection History of stress test History of stroke Hx of pancreatitis Hypertension Hypomagnesemia IBS (irritable bowel syndrome) Infection of right great toe due to methicillin resistant Staphylococcus aureus (MRSA) Insulin dependent diabetes mellitus Iron (Fe) deficiency anemia Iron deficiency Lymphadenopathy, inguinal HINTON (nonalcoholic steatohepatitis) Nausea and vomiting Non-smoker Open wound Osteomyelitis of right foot Peripheral neuropathy Pulmonary hypertension Right middle lobe pneumonia Seasonal allergies Seizures Shortness of breath on exertion SLE (systemic lupus erythematosus) Sleep apnea TIA (transient ischemic attack) Uses prosthesis Uses wheelchair Wears glasses Surgical History (Reviewed 09/02/22 @ 14:02 by Gillian Box ESTATE PLANNING DIRECTOR, ESTATE PLANNING DIRECTOR-C) History of amputation of hallux History of carpal tunnel surgery History of cholecystectomy History of eye surgery History of hernia repair History of hysterectomy History of lithotripsy History of liver biopsy History of lymph node biopsy History of temporal artery biopsy History of tubal ligation Partial nontraumatic amputation of right foot S/P arteriovenous (AV) fistula creation Status post transmetatarsal amputation of right foot Family History (Reviewed 09/02/22 @ 14:02 by Gillian Box ESTATE PLANNING DIRECTOR, ESTATE PLANNING DIRECTOR-C) Mother HypertensionGrandmother Hypertension Diabetes Social History (Reviewed 09/02/22 @ 14:02 by Gillian Box ESTATE PLANNING DIRECTOR, ESTATE PLANNING DIRECTOR-C) Smoking Status: Never smoker alcohol intake: current Assessment and Plan (No Qualifiers) Assessment and Plan (1) Problem with dialysis access: Status: Acute Plan: Dr. Summers also evaluated this patient. Patient is demonstrating signs of venous congestion. Recommend obtaining duplex ultrasound of the left forearm fistula to rule out central venous obstruction or possible stenosis of the upper extremity or possible venous thrombosis. Once patient obtains the imaging, our office will review and contact patient with results. Patient's office follow-up will be determined at that time. Order has been placed of the duplex ultrasound I have examined the patient and the H&P has been reviewed. There are no clinical changes since date of exam. Ariel Summers M.D., F.A.C.S.
--- NOTE | 2022-09-17 11:41 | PCM.OPRPT ---
Report of Operation Date of Procedure: 09/17/22 Pre-Operative Diagnosis: Suspected malfunction left forearm radiocephalic arteriovenous fistula with ultrasound identified deep venous installation coordinator Post-Operative Diagnosis: Well matured left forearm radiocephalic arteriovenous hemodialysis fistula with good cephalic and basilic vein outflow Surgery/Procedure Performed:: Carbon dioxide left upper extremity fistulogram Description of Surgical Findings:: Timeout informed consent was obtained. The patient was taken to the special procedures lab placed on the table she received 50 mcg of fentanyl and 2 mg of Versed is intravenous sedation the left extremity was sterilely prepped and draped ultrasound was used to look in the upper arm for the cephalic vein 2% lidocaine was instilled under ultrasound guidance micropuncture needle inserted retrograde into the cephalic vein followed by micropuncture wire and a 6 [place] short sheath dilator then using a 035 angled Glidewire and 4 [place] glide cath I was able to get into the radial artery proximal to the anastomosis using 10 cc of carbon dioxide fistulogram was obtained this demonstrated that the previously treated radiocephalic anastomosis and proximal fistula appeared to be widely patent there was good venous outflow in both the cephalic and basilic veins. We then angled the tube and took further imaging. Selected what I thought could be the perforating vein and took additional selected imaging however that ultimately was part of the basilic vein outflow. At the completion of the imaging I could not see any hemodynamically significant stenosis and I could not identify any specific installation coordinator that would be leading to swelling of the forearm. The images were completed the patient tolerated well a simple suture of 4-0 nylon was placed at the sheath site pressure was held hemostasis was intact there was no apparent complication she tolerated it nicely. Carbon dioxide images demonstrate a left mid forearm radiocephalic arteriovenous hemodialysis fistula with what appeared to be nicely maturing fistula and good cephalic and basilic vein upper arm outflow. No specific installation coordinator identified Ariel Summers M.D., F.A.C.S. Surgeon: Ariel Summers Type of Anesthesia: IV Sedation and Local
== END 2022-09-17 12:40 | disposition home or self-care (01) ==
LOC: CLSP 09:55
PROVIDERS: PCP Family Medicine; Referring Provider Surgery; Visit Provider Surgery
DX: T82.898A Other specified complication of vascular prosthetic devices, implants and grafts, initial encounter (principal); J44.9 Chronic obstructive pulmonary disease, unspecified; E11.22 Type 2 diabetes mellitus with diabetic chronic kidney disease; E11.42 Type 2 diabetes mellitus with diabetic polyneuropathy; E11.59 Type 2 diabetes mellitus with other circulatory complications; N18.4 Chronic kidney disease, stage 4 (severe); I12.9 Hypertensive chronic kidney disease with stage 1 through stage 4 chronic kidney disease, or unspecified chronic kidney disease; I87.2 Venous insufficiency (chronic) (peripheral); Z96.41 Presence of insulin pump (external) (internal); E78.00 Pure hypercholesterolemia, unspecified; D50.9 Iron deficiency anemia, unspecified; D63.1 Anemia in chronic kidney disease
CPT/HCPCS: 36901; 76937; 85025; 99152; 99153; J1756; J7050; Q9967; A4216; C1769

== ENCOUNTER 2022-09-20 19:19 | Observation (INO) | payer MEDICARE, SELFPAY ==
[2022-09-20] VITALS (10 sets, daily range): BP systolic 131–167; BP diastolic 63–95; PULSE 77–88; RESP 16–19; TEMP 36.4–36.7; O2SAT 89–98; BMI 36.6; BMI 34.3
--- NOTE | 2022-09-20 19:34 | EKG12_ITS ---
Test Reason : CP Blood Pressure : / mmHG Vent. Rate : 083 BPM Atrial Rate : 083 BPM P-R Int : 146 ms QRS Dur : 088 ms QT Int : 388 ms P-R-T Axes : 061 -27 078 degrees QTc Int : 455 ms Normal sinus rhythm Minimal voltage criteria for LVH, may be normal variant ( [place] product ) Nonspecific T wave abnormality Abnormal ECG Confirmed by BRE KUMAR, CARLY ([id number]), manager editorial AMI GODOY ([id number]) on 09/22/2022 1:23:52 PM Referred By: Confirmed By:CARLY DÍAZ MD
--- NOTE | 2022-09-20 19:35 | ED.VIS.CHEST ---
HPI History of Present Illness Chief Complaint: Chest Pain Detail of Chief Complaint: Chest pain Informant: patient Narrative Narrative: Patient presents with chest pain that is been ongoing continuously for the last hour. She describes a pressure across her chest that radiates into her jaw. She feels somewhat short of breath. She has had no vomiting. Patient states she has had similar pains throughout the day but it only lasted a few seconds to minutes and then resolved. Patient wearing a 14-day event monitor currently. Patient states her last stress test was about 4 years ago and her last heart cath was over 6 years ago. Patient has not had any prior cardiac intervention such as stenting. She denies recent travel. She did have a fistulogram last week. Patient has history of chronic kidney disease. No history of PE or DVT. She is not anticoagulated. [facility] Medical History Abnormal CT scan, liver Acute kidney injury Alternating constipation and diarrhea Anemia of chronic disease Anxiety Arthritis Asthma Below-knee amputation of left lower extremity Cardiology follow-up encounter Cellulitis of left foot Cellulitis of right foot CKD (chronic kidney disease) COPD (chronic obstructive pulmonary disease) COVID-19 virus detected CPAP (continuous positive airway pressure) dependence Depression Diabetes mellitus Diastolic dysfunction Dietary restriction DVT (deep venous thrombosis) Fatty liver GERD (gastroesophageal reflux disease) High cholesterol History of below-knee amputation of left lower extremity History of Crohn's disease History of echocardiogram History of hiatal hernia History of Holter monitoring History of MRSA infection History of stress test History of stroke Hx of pancreatitis Hypertension Hypomagnesemia IBS (irritable bowel syndrome) Infection of right great toe due to methicillin resistant Staphylococcus aureus (MRSA) Insulin dependent diabetes mellitus Iron (Fe) deficiency anemia Iron deficiency Lymphadenopathy, inguinal HINTON (nonalcoholic steatohepatitis) Nausea and vomiting Non-smoker Open wound Osteomyelitis of right foot Peripheral neuropathy Pulmonary hypertension Right middle lobe pneumonia Seasonal allergies Seizures Shortness of breath on exertion SLE (systemic lupus erythematosus) Sleep apnea TIA (transient ischemic attack) Uses prosthesis Uses wheelchair Wears glasses Home Medications duloxetine 60 mg capsule,delayed release 60 mg PO QHS depression 11/26/12 [History Last Taken 01/19/17] insulin regular hum U-500 conc 500 unit/mL subcutaneous soln 2.2 units subcut CONT insulin pump 10/02/15 [History Last Taken 01/19/17] trazodone 100 mg tablet 150 mg PO QHS sleep 12/27/15 [History Last Taken 01/18/17] ergocalciferol (vitamin D2) 1,250 mcg (50,000 unit) capsule 50,000 unit PO MOWEFR supplement 01/24/16 [History Last Taken 01/19/17] ferrous sulfate 325 mg (65 mg iron) tablet 325 mg PO TIDCM anemia 01/24/16 [History Last Taken 01/19/17] albuterol sulfate 2.5 mg/3 mL (0.083 %) solution for nebulization 2.5 mg inhalation Q4H PRN PRN Wheezing 06/09/16 [History Last Taken 09/01/16] gabapentin 800 mg tablet 800 mg PO TID neuropathy 05/19/17 [History Last Taken Unknown] rosuvastatin 10 mg tablet 20 mg PO QHS cholesterol 06/03/17 [History Last Taken Unknown] insulin aspart U-100 100 unit/mL (3 mL) subcutaneous pen See Protocol subcut ACHS diabetes 07/30/18 [History Last Taken Unknown] magnesium oxide 400 mg (241.3 mg magnesium) tablet 400 mg PO DAILYCM supplement 07/30/18 [History Last Taken Unknown] hydroxyzine pamoate 50 mg capsule 50 mg PO TID PRN Anxiety 02/20/20 [History Last Taken Unknown] duloxetine 30 mg capsule,delayed release 30 mg PO DAILY depression 05/09/20 [History Last Taken Unknown] fenofibrate 160 mg tablet 43 mg PO DAILY 05/29/20 [History Last Taken Unknown] omeprazole 20 mg capsule,delayed release 40 mg PO DAILY 07/18/21 [History Last Taken 06/20/22] ondansetron 4 mg disintegrating tablet 8 mg PO Q8H PRN PRN Nausea 09/03/21 [History Last Taken Unknown] metoprolol tartrate 25 mg tablet 100 mg PO BID 05/14/22 [History Last Taken 09/17/22] epoetin regan-epbx 20,000 unit/2 mL injection solution (Retacrit) 20,000 unit subcut ONCE 07/30/22 [History Last Taken Unknown] diphenoxylate-atropine 2.5 mg-0.025 mg tablet (Lomotil) 1 tab PO BID PRN diarrhea #180 tabs 08/04/22 [Rx Last Taken Unknown] hyoscyamine sulfate 0.125 mg tablet 0.125 mg PO BID-QID PRN abdominal pain #360 tabs 08/04/22 [Rx Last Taken Unknown] risankizumab-rzaa 360 mg/2.4 mL (150 mg/mL) subcut wearable injector (Skyrizi) 360 mg (2.4 mL) subcut .COMPLEX #2.4 mL 08/04/22 [Rx Last Taken Unknown] ursodiol 300 mg capsule 300 mg PO BID LIVER #180 caps 08/04/22 [Rx Last Taken Unknown] mesalamine 500 mg capsule,extended release (Pentasa) 1,000 mg (2 x 500 mg) PO BID Crohn's #360 caps 08/06/22 [Rx Last Taken Unknown] amlodipine 5 mg tablet 5 mg PO DAILY #30 tabs 08/22/22 [Rx Last Taken 09/17/22] Allergy/AdvReac Type Severity Reaction Status Date / Time atorvastatin [From Lipitor] AdvReac Severe Vomiting Verified 09/20/22 19:22 oxycodone HCl [From Percocet] AdvReac Severe Vomiting Verified 09/20/22 19:22 Family History Mother Hypertension Grandmother Hypertension Diabetes Surgical History History of amputation of hallux History of carpal tunnel surgery History of cholecystectomy History of eye surgery History of hernia repair History of hysterectomy History of lithotripsy History of liver biopsy History of lymph node biopsy History of temporal artery biopsy History of tubal ligation Partial nontraumatic amputation of right foot S/P arteriovenous (AV) fistula creation Status post transmetatarsal amputation of right foot Social History Smoking Status: Never smoker alcohol intake: current ROS ROS ED Review of Systems ROS Unobtainable: other Constitutional Constitutional ED: Reports lethargy; Denies chills, fever(s), sweats or weight loss Eyes Eyes: Denies blurry vision, change in vision or diplopia ENT ENT ED: Denies rhinorrhea or sore throat Cardiovascular Cardiovascular: Reports chest pain; Denies orthopnea or racing heartbeat Respiratory/Chest Respiratory/Chest: Reports dyspnea and dyspnea on exertion; Denies cough, orthopnea or sputum Gastrointestinal Gastrointestinal: Denies abdominal pain, diarrhea, nausea or vomiting Genitourinary Genitourinary ED: Denies dysuria, hematuria or urinary frequency Musculoskeletal Musculoskeletal: Denies arthralgias, back pain, myalgias or neck pain Integumentary Denies abscess, Abrasions or rash Neurologic Neurologic: Denies headache(s) or weakness Psychiatric Psychiatric: Denies anxiety, depression or suicidal thoughts Endocrine Endocrinology: Denies polydipsia, polyphagia or polyuria Hematologic/Lymphatic Hematologic/Lymphatic: Denies easy bleeding, easy bruising or lymphadenopathy Allergic/Immunologic Allergic/Immunologic ED: Denies mouth swelling, tongue swelling or urticaria EXAM Physical Exam Const Vital Signs: 09/20/22 19:20 09/20/22 19:46 09/20/22 19:51 Temperature 97.8 F Temperature Source Temporal Pulse Rate 88 80 81 Respiratory Rate 16 Blood Pressure 167/95 H 138/79 H Blood Pressure Mean Pulse Ox 98 Oxygen Delivery Method Room Air Oxygen Flow Rate (L/min) 09/20/22 19:57 09/20/22 20:39 09/20/22 19:50 Temperature Temperature Source Pulse Rate 80 81 Respiratory Rate 19 H Blood Pressure 131/69 H 131/63 H Blood Pressure Mean 85 Pulse Ox 97 89 Oxygen Delivery Method Nasal Cannula Room Air Oxygen Flow Rate (L/min) 2 Positive well nourished and well developed General Appearance ED: well developed and NAD HEENT Reports TM's clear and moist mucous membranes normocephalic and atraumatic; Negative for trauma or tenderness Tympanic Membrane ED: Yes TM's clear Eyes PERRL and EOMs intact bilaterally General Eye ED: Negative for pale conjunctiva or scleral icterus Neck no lymphadenopathy, supple and no JVD General: Negative for tenderness Chest Wall inspection of chest normal and palpation of chest normal Chest: Negative for tenderness Resp normal respiratory effort and clear to auscultation bilaterally Effort and Inspection: Negative for respiratory distress or pain with movement Auscultation: Negative for rhonchi, wheezes or diminished lung sounds Cardio regular rate, regular rhythm, S1 normal heart sound, S2 normal heart sound and no murmurs Peripheral Pulses: pulses 2+ throughout GI normal to inspection, nondistended, normoactive bowel sounds, soft to palpation, non-tender, non-distended and no masses Back/Spine no CVA tenderness and no thoracic nor lumbar tenderness Extremity normal to inspection General Extremety ED: Negative for edema General Extremity: Negative for edema Neuro oriented x3, CN's II-XII intact bilaterally, no sensory deficits noted and gait normal Sensorium / Orientation: awake, alert, oriented to person, oriented to place and oriented to time Motor Exam: strength 5/5 throughout and strength abnormal Psych mental status grossly normal Skin no rashes or lesions noted and no wounds Heart Score History: Highly Suspicious ECG: Nonspecific Repolarization Age: >45 - <65 years Risk Factors: 1 or 2 Risk Factors Troponin: </= Normal Limit Score: 5 MDM MDM MDM Narrative Medical decision making narrative: Patient presents with chest pain that she has had throughout the day off and on. Continuous pain for about an hour prior to coming in. Patient with symptoms concerning for acute coronary syndrome. EKG obtained on arrival showed a sinus rhythm with a rate of [address] changes. CBC with differential obtained showed a white count of 8.5 with hemoglobin of 9.7 and platelet count of 212. Chemistries unremarkable. Troponin was normal at 12. BNP slightly elevated at 171.5. Patient had a chest x-ray that on my interpretation showed cardiomegaly otherwise no evidence of infiltrate or pneumothorax or acute disease process. Patient received aspirin via EMS therefore none was given here. Patient received sublingual nitroglycerin which completely resolved her pain. Patient was placed on transdermal nitroglycerin ointment 1 inch. Case will be discussed with hospitalist to evaluate patient for admission. Her heart score is a 5. Lab Data Attestation: I reviewed the patient's lab results. Labs: Laboratory Results - last 24 hr 09/20/22 19:30 WBC 8.5 RBC 3.24 L Hgb 9.7 L Hct 29.9 L MCV 92.3 MCH 29.9 MCHC 32.4 RDW Std Deviation 46.9 H RDW Coeff of Michael 13.9 Plt Count 212 MPV 10.9 Immature Gran % (Auto) 1.300 H Neut % (Auto) 73.6 H Lymph % (Auto) 15.9 L [place] % (Auto) 6.4 Eos % (Auto) 2.7 Baso % (Auto) 0.1 Absolute Neuts (auto) 6.3 Absolute Lymphs (auto) 1.35 Nucleated RBC % 0 Sodium 140 Potassium 4.8 Chloride 110 H Carbon Dioxide 25.0 Anion Gap 5 BUN 50 H Creatinine 2.76 H Estim Creat Clear Calc 22.57 Est GFR (MDRD) Af Amer 23 L Est GFR (MDRD) Non-Af 19 L BUN/Creatinine Ratio 18.1 Glucose 154 H Calcium 9.2 Troponin I High Sens 12 B-Natriuretic Peptide 171.5 H Radiography Diagnostic Testing: Clinical Impression(s) from Imaging Studies Chest X-Ray 09/20/22 19:40 IMPRESSION: No acute findings in the chest. Electronically Signed: Yifan Dietrich MD at 20:03 EDT , 1 view chest x-ray obtained interpreted by myself as no evidence of infiltrate or pneumothorax or acute disease process. Patient was noted to have some cardiomegaly. Radiology in agreement. EKG Initial EKG: Attestation: I personally reviewed and interpreted this EKG as follows: Comments: Sinus rhythm with a rate of [address] changes Discharge Plan Dx/Rx/DC Orders Clinical Impression: Chest pain, Diabetes, Chronic kidney disease, Hypertension Disposition Disposition: Acute Care Hospital [facility] Discharge Date/Time: 09/20/22 21:57
--- NOTE | 2022-09-20 19:40 | RAD_ITS ---
EXAM: XR CHEST, 1 VIEW CLINICAL INDICATION: chest pain TECHNIQUE: Frontal view of the chest. COMPARISON: 5 FINDINGS: LUNGS AND PLEURAL SPACES: Unremarkable. No consolidation or edema. No pneumothorax. No effusion. HEART: Heart is enlarged. MEDIASTINUM: Central airways and mediastinal contour are unremarkable. BONES/JOINTS: Unremarkable. SOFT TISSUES: Unremarkable. RAD/Chest 1 View (Portable) IMPRESSION: No acute findings in the chest. Electronically Signed: Yifan Dietrich MD at 20:03 EDT Reading Location ID and State: [facility] / [place] , Service support ,
[2022-09-20] MEDS: Nitroglycerin SL (ED/IMG/CATH) 0.4 MG TABLET SL ×3 (19:46→19:57)
[2022-09-20 19:48] LABS: Absolute Lymphocyte Count 1.35 X10^3/uL (0.83-4.51); Absolute Neutrophil Count 6.3 X10^3/uL (2.0-7.7); Basophil# 0.01 X10^3/uL; Basophil% 0.1 % (0-1); Eosinophil# 0.23 X10^3/uL; Eosinophils% 2.7 % (0-5); Hematocrit 29.9 % (37-47); Hemoglobin 9.7 g/dL (12.0-15.0); Lymphocyte # 1.35 X10^3/ul (0.83-4.51); Lymphocyte % 15.9 % (19-41); Mean Corp Hgb Conc 32.4 g/dL (32-36); Mean Corpuscular Hgb 29.9 pg (27.0-32.0); Mean Corpuscular Volume 92.3 fL (81-99); Mean Platelet Vol. 10.9 fl (6.2-12.0); Monocyte# 0.54 X10^3/uL; Monocyte% 6.4 % (0-10); NRBC Flagged by Analyzer 0 % (0-5); Neutrophil # 6.25 X10^3/uL (2.7-7.7); Neutrophil % 73.6 % (47-70); Platelet Count 212 K/mm3 (150-450); RBC Distribution Width CV 13.9 % (11.6-14.6); RBC Distribution Width SD 46.9 fl (35.1-43.9); Red Blood Count 3.24 M/mm3 (4.2-5.4); White Blood Count 8.5 K/mm3 (4.4-11.0)
[2022-09-20] MEDS: Ondansetron 4 MG/2 ML Vial IV (19:55)
[2022-09-20 19:59] LABS: Anion Gap 5 (5-15); BUN 50 mg/dL (7-18); BUN/Creat Ratio 18.1 RATIO (10-20); Calcium,Total 9.2 mg/dL (8.5-10.1); Chloride 110 mmol/L (98-107); Creatinine, Serum 2.76 mg/dL (0.55-1.02); EST Glomerular Filtration Rate 19 mL/min (>60); Est Glom Filt Rate - Afr Amer 23 mL/min (>60); Estimated Creatinine Clearance 22.57 ml/min; Glucose 154 mg/dL (74-106); Potassium 4.8 mmol/L (3.5-5.1); Sodium Level 140 mmol/L (136-145); Troponin-I HS (w/2H Reflex) 12 pg/mL (3.0-54.0)
[2022-09-20 20:16] LABS: BNP,B-Type NATRIURETIC PEPTIDE 171.5 pg/mL (0-100)
[2022-09-20] MEDS: Nitroglycerin Oint 1 INCH PACKET TD (21:19)
[2022-09-20 21:39] LABS: Reflex Troponin-HS? (from REC) Y
--- NOTE | 2022-09-20 21:43 | HP.PCM.HOS_ITS ---
HPI - General General Date of Admission: 09/20/22 HPI Narrative FORD HESTER, is a 52 F who presents to the hospital with chest pain. She has been having intermittent episodes throughout the day and then she developed chronic chest pain for about an hour. She had complete resolution of her chest pain when she was given nitro here in the ER. No signs of ischemia on EKG and her initial troponin was 12. She did have some radiation of her chest pain up into her jaw. She does have a history of pulmonary hypertension and had an echo back in July and that was unremarkable with PASP of 28 mmHg. Her last stress test and last catheter several years ago. [facility] Medical History Abnormal CT scan, liver Acute kidney injury Alternating constipation and diarrhea Anemia of chronic disease Anxiety Arthritis Asthma Below-knee amputation of left lower extremity Cardiology follow-up encounter Cellulitis of left foot Cellulitis of right foot CKD (chronic kidney disease) COPD (chronic obstructive pulmonary disease) COVID-19 virus detected CPAP (continuous positive airway pressure) dependence Depression Diabetes mellitus Diastolic dysfunction Dietary restriction DVT (deep venous thrombosis) Fatty liver GERD (gastroesophageal reflux disease) High cholesterol History of below-knee amputation of left lower extremity History of Crohn's disease History of echocardiogram History of hiatal hernia History of Holter monitoring History of MRSA infection History of stress test History of stroke Hx of pancreatitis Hypertension Hypomagnesemia IBS (irritable bowel syndrome) Infection of right great toe due to methicillin resistant Staphylococcus aureus (MRSA) Insulin dependent diabetes mellitus Iron (Fe) deficiency anemia Iron deficiency Lymphadenopathy, inguinal HINTON (nonalcoholic steatohepatitis) Nausea and vomiting Non-smoker Open wound Osteomyelitis of right foot Peripheral neuropathy Pulmonary hypertension Right middle lobe pneumonia Seasonal allergies Seizures Shortness of breath on exertion SLE (systemic lupus erythematosus) Sleep apnea TIA (transient ischemic attack) Uses prosthesis Uses wheelchair Wears glasses Home Medications duloxetine 60 mg capsule,delayed release 60 mg PO QHS depression 11/26/12 [History Last Taken 01/19/17] insulin regular hum U-500 conc 500 unit/mL subcutaneous soln 2.2 units subcut CONT insulin pump 10/02/15 [History Last Taken 01/19/17] trazodone 100 mg tablet 150 mg PO QHS sleep 12/27/15 [History Last Taken 01/18/17] ergocalciferol (vitamin D2) 1,250 mcg (50,000 unit) capsule 50,000 unit PO MOWEFR supplement 01/24/16 [History Last Taken 01/19/17] ferrous sulfate 325 mg (65 mg iron) tablet 325 mg PO TIDCM anemia 01/24/16 [History Last Taken 01/19/17] albuterol sulfate 2.5 mg/3 mL (0.083 %) solution for nebulization 2.5 mg inhalation Q4H PRN PRN Wheezing 06/09/16 [History Last Taken 09/01/16] gabapentin 800 mg tablet 800 mg PO TID neuropathy 05/19/17 [History Last Taken Unknown] rosuvastatin 10 mg tablet 20 mg PO QHS cholesterol 06/03/17 [History Last Taken Unknown] insulin aspart U-100 100 unit/mL (3 mL) subcutaneous pen See Protocol subcut ACHS diabetes 07/30/18 [History Last Taken Unknown] magnesium oxide 400 mg (241.3 mg magnesium) tablet 400 mg PO DAILYCM supplement 07/30/18 [History Last Taken Unknown] hydroxyzine pamoate 50 mg capsule 50 mg PO TID PRN Anxiety 02/20/20 [History Last Taken Unknown] duloxetine 30 mg capsule,delayed release 30 mg PO DAILY depression 05/09/20 [History Last Taken Unknown] fenofibrate 160 mg tablet 43 mg PO DAILY 05/29/20 [History Last Taken Unknown] omeprazole 20 mg capsule,delayed release 40 mg PO DAILY 07/18/21 [History Last Taken 06/20/22] ondansetron 4 mg disintegrating tablet 8 mg PO Q8H PRN PRN Nausea 09/03/21 [History Last Taken Unknown] metoprolol tartrate 25 mg tablet 100 mg PO BID 05/14/22 [History Last Taken 09/17/22] epoetin regan-epbx 20,000 unit/2 mL injection solution (Retacrit) 20,000 unit subcut ONCE 07/30/22 [History Last Taken Unknown] diphenoxylate-atropine 2.5 mg-0.025 mg tablet (Lomotil) 1 tab PO BID PRN di arrhea #180 tabs 08/04/22 [Rx Last Taken Unknown] hyoscyamine sulfate 0.125 mg tablet 0.125 mg PO BID-QID PRN abdominal pain #360 tabs 08/04/22 [Rx Last Taken Unknown] risankizumab-rzaa 360 mg/2.4 mL (150 mg/mL) subcut wearable injector (Skyrizi) 360 mg (2.4 mL) subcut .COMPLEX #2.4 mL 08/04/22 [Rx Last Taken Unknown] ursodiol 300 mg capsule 300 mg PO BID LIVER #180 caps 08/04/22 [Rx Last Taken Un known] mesalamine 500 mg capsule,extended release (Pentasa) 1,000 mg (2 x 500 mg) PO BID Crohn's #360 caps 08/06/22 [Rx Last Taken Unknown] amlodipine 5 mg tablet 5 mg PO DAILY #30 tabs 08/22/22 [Rx Last Taken 09/17/22] Allergy/AdvReac Type Severity Reaction Status Date / Time atorvastatin [From Lipitor] AdvReac Severe Vomiting Verified 09/20/22 19:22 oxycodone HCl [From Percocet] AdvReac Severe Vomiting Verified 09/20/22 19:22 Family History Mother Hypertension Grandmother Hypertension Diabetes Surgical History History of amputation of hallux History of carpal tunnel surgery History of cholecystectomy History of eye surgery History of hernia repair History of hysterectomy History of lithotripsy History of liver biopsy History of lymph node biopsy History of temporal artery biopsy History of tubal ligation Partial nontraumatic amputation of right foot S/P arteriovenous (AV) fistula creation Status post transmetatarsal amputation of right foot Social History Smoking Status: Never smoker alcohol intake: current ROS Constitutional Constitutional: Denies chills, fatigue, fever(s) or malaise Eyes Eyes: Denies blurry vision ENT HEENT: Denies headache(s) or nasal discharge Cardiovascular Cardiovascular: Reports chest pain and palpitations; Denies dyspnea on exertion or syncope Respiratory/Chest Respiratory/Chest: Denies cough, shortness of breath at rest or shortness of breath with exertion Gastrointestinal Gastrointestinal: Denies constipation, diarrhea, nausea or vomiting Genitourinary Genitourinary: Denies dysuria Neurologic Neurologic: Denies focal weakness, numbness or tremor(s) Psychiatric Psychiatric: Denies anxiety or depression Vital Signs Vital Signs Vital Signs: 09/20/22 19:20 09/20/22 19:46 09/20/22 19:51 Temperature 97.8 F Temperature Source Temporal Pulse Rate 88 80 81 Respiratory Rate 16 Blood Pressure 167/95 H 138/79 H Blood Pressure Mean Pulse Ox 98 Oxygen Delivery Method Room Air Oxygen Flow Rate (L/min) 09/20/22 19:57 09/20/22 20:39 09/20/22 19:50 Temperature Temperature Source Pulse Rate 80 81 Respiratory Rate 19 H Blood Pressure 131/69 H 131/63 H Blood Pressure Mean 85 Pulse Ox 97 89 Oxygen Delivery Method Nasal Cannula Room Air Oxygen Flow Rate (L/min) 2 09/20/22 21:19 09/20/22 21:22 Temperature 97.6 F L Temperature Source Temporal Pulse Rate 78 77 Respiratory Rate 16 Blood Pressure 151/78 H 151/78 H Blood Pressure Mean 102 Pulse Ox 98 Oxygen Delivery Method Nasal Cannula Oxygen Flow Rate (L/min) 2 Weight Weight: 226 lb 13.69 oz Body Mass Index (BMI) 36.6 Physical Exam Narrative General: Alert, Oriented x3, Cooperative, No apparent distress, obese HEENT: Atraumatic, PERRLA, EOMI, Normocephalic Oral: Moist Mucosa Neck: Supple, No JVD Lungs: Clear to auscultation, Normal air movement, No rhonchi, No wheeze, No rales Cardiovascular: Regular rate, Regular Rhythm, Normal S1, Normal S2, No murmurs Abdomen: Soft, Non Tender, Non-Distended, No Hepato-splenomegaly Extremities: No edema, Capillary Refill Less than 3 Seconds, left BKA Skin: No rashes, No breakdown Musculoskeletal: No Tenderness to Palpation of Joints or Extremities Neurological: Cranial nerves II-XII grossly intact, Motor Exam 5/5 strength throughout, Sensory exam intact to light touch and pain Psych/Mental Status: Normal Affect, Appropriate Results Lab / Micro Data 09/20/22 19:30 09/20/22 19:30 Labs: Laboratory Results - last 24 hr 09/20/22 19:30: WBC 8.5, RBC 3.24 L, Hgb 9.7 L, Hct 29.9 L, MCV 92.3, MCH 29.9, MCHC 32.4, RDW Std Deviation 46.9 H, RDW Coeff of Michael 13.9, Plt Count 212, MPV 10.9, Immature Gran % (Auto) 1.300 H, Neut % (Auto) 73.6 H, Lymph % (Auto) 15.9 L, [place] % (Auto) 6.4, Eos % (Auto) 2.7, Baso % (Auto) 0.1, Absolute Neuts (auto) 6.3, Absolute Lymphs (auto) 1.35, Nucleated RBC % 0, Sodium 140, Potassium 4.8, Chloride 110 H, Carbon Dioxide 25.0, Anion Gap 5, BUN 50 H, Creatinine 2.76 H, Estim Creat Clear Calc 22.57, Est GFR (MDRD) Af Amer 23 L, Est GFR (MDRD) Non-Af 19 L, BUN/Creatinine Ratio 18.1, Glucose 154 H, Calcium 9.2, Troponin I High Sens 12, B-Natriuretic Peptide 171.5 H Radiology Impression Chest X-Ray 09/20/22 19:40 IMPRESSION: No acute findings in the chest. Electronically Signed: Yifan Dietrich MD at 20:03 EDT Reading Location ID and State: [facility] / [place] , Service support , Assessment & Plan Assessment/Plan (1) Chest pain: PLAN: Plan 1. Chest pain/HTN/HLD/pulmonary hypertension/morbid obesity ? We will obtain serial troponins ? We will get a stress test on Thursday ? We will continue to monitor on telemetry she is currently wearing a Holter monitor that will be read by cardiology ? EKG is nonischemic ? Can resume her home blood pressure and cholesterol medications ? Discussed lifestyle modifications 2. DM 2/CKD 4 ? Continue with her insulin pump ? Accu-Cheks ACHS ? Sliding scale insulin ? Make adjustments as necessary ? She is in the process of having a left upper extremity fistula for eventual dialysis 3. Anxiety/depression ? Stable ? Continue with her home medications 4. GERD ? Stable ?Continue with PPI 5. Crohn's ? Stable ? Continue with her home medications DVT: Heparin 75 minutes was spent on direct patient care, including documentation as well as chart review and collaboration with colleagues Charges/Coding Visit Charges Inpatient E&M: 57509 Init Hosp L3
[2022-09-20 22:35] LABS: Troponin-I HS 13 pg/mL (3.0-54.0)
[2022-09-20] MEDS: Gabapentin 800 MG Tablet PO (23:25)
[2022-09-20] MEDS: Metoprolol Tartrate 100 MG Tablet PO (23:25)
[2022-09-20] MEDS: traZODone 50 MG Tablet 150 MG PO (23:25)
[2022-09-20] MEDS: Mesalamine 1.2 GM Tablet PO (23:25)
[2022-09-20] MEDS: Ursodiol 250 MG Tablet PO (23:25)
[2022-09-20] MEDS: Heparin Injection (Vial) 5,000 UNIT/ML VIAL 5000 UNIT SC (23:26)
[2022-09-20] MEDS: Rosuvastatin 20 MG Tablet PO (23:26)
[2022-09-20] MEDS: DULoxetine Hcl 60 MG Capsule PO (23:27)
[2022-09-20] MEDS: Epoetin Alfa-epbx 40,000 UNIT/ML 20000 UNIT SC (23:27)
[2022-09-20] MEDS: 0.9% Saline Lock 10 ML Syringe IV (23:27)
[2022-09-20 23:57] LABS: Bedside Glucose 109 mg/dL (74-106)
[2022-09-21] VITALS (9 sets, daily range): BP systolic 127–143; BP diastolic 69–79; PULSE 75–77; RESP 17–18; TEMP 36.8–37.6; O2SAT 92–96
--- NOTE | 2022-09-21 00:15 | EKG12_ITS ---
Test Reason : am ekg Blood Pressure : / mmHG Vent. Rate : 067 BPM Atrial Rate : 067 BPM P-R Int : 142 ms QRS Dur : 088 ms QT Int : 446 ms P-R-T Axes : 076 -22 074 degrees QTc Int : 471 ms Normal sinus rhythm Normal ECG When compared with ECG of 21-SEP-2022 19:58, MANUAL COMPARISON REQUIRED, DATA IS UNCONFIRMED Confirmed by BRE KUMAR, CARLY ([id number]), department editor AMI GODOY ([id number]) on 09/23/2022 9:43:51 AM Referred By: Ramirez Confirmed By:CARLY DÍAZ MD
[2022-09-21 01:54] LABS: Troponin-I HS 13 pg/mL (3.0-54.0)
[2022-09-21 04:43] LABS: Bedside Glucose 62 mg/dL (74-106)
[2022-09-21 04:43] LABS: Bedside Glucose 79 mg/dL (74-106)
[2022-09-21 05:30] LABS: Absolute Lymphocyte Count 1.17 X10^3/uL (0.83-4.51); Absolute Neutrophil Count 6.6 X10^3/uL (2.0-7.7); Basophil# 0.01 X10^3/uL; Basophil% 0.1 % (0-1); Eosinophil# 0.21 X10^3/uL; Eosinophils% 2.4 % (0-5); Hematocrit 27.8 % (37-47); Hemoglobin 9.1 g/dL (12.0-15.0); Lymphocyte # 1.17 X10^3/ul (0.83-4.51); Lymphocyte % 13.5 % (19-41); Mean Corp Hgb Conc 32.7 g/dL (32-36); Mean Corpuscular Hgb 30.2 pg (27.0-32.0); Mean Corpuscular Volume 92.4 fL (81-99); Mean Platelet Vol. 10.2 fl (6.2-12.0); Monocyte# 0.61 X10^3/uL; NRBC Flagged by Analyzer 0 % (0-5); Neutrophil # 6.62 X10^3/uL (2.7-7.7); Neutrophil % 76.4 % (47-70); Platelet Count 181 K/mm3 (150-450); RBC Distribution Width CV 14.1 % (11.6-14.6); RBC Distribution Width SD 47.4 fl (35.1-43.9); Red Blood Count 3.01 M/mm3 (4.2-5.4); White Blood Count 8.7 K/mm3 (4.4-11.0)
[2022-09-21 05:58] LABS: Anion Gap 6 (5-15); BUN 47 mg/dL (7-18); BUN/Creat Ratio 16.7 RATIO (10-20); Calcium,Total 8.7 mg/dL (8.5-10.1); Chloride 112 mmol/L (98-107); Creatinine, Serum 2.82 mg/dL (0.55-1.02); EST Glomerular Filtration Rate 19 mL/min (>60); Est Glom Filt Rate - Afr Amer 23 mL/min (>60); Estimated Creatinine Clearance 22.09 ml/min; Glucose 94 mg/dL (74-106); Potassium 4.7 mmol/L (3.5-5.1); Sodium Level 141 mmol/L (136-145)
[2022-09-21] MEDS: Heparin Injection (Vial) 5,000 UNIT/ML VIAL 5000 UNIT SC ×3 (06:36→21:08)
[2022-09-21] MEDS: Gabapentin 800 MG Tablet PO ×3 (06:37→21:21)
[2022-09-21 06:56] LABS: Bedside Glucose 90 mg/dL (74-106)
[2022-09-21] MEDS: Pantoprazole Sodium 40 MG Tablet PO (08:56)
[2022-09-21] MEDS: Fenofibrate 48 MG Tablet PO (08:56)
[2022-09-21] MEDS: Ursodiol 250 MG Tablet PO ×2 (08:56→17:53)
[2022-09-21] MEDS: Ferrous Sulfate 325 MG Tablet PO ×3 (08:56→17:53)
[2022-09-21] MEDS: DULoxetine Hcl 30 MG Capsule PO (08:57)
[2022-09-21] MEDS: Metoprolol Tartrate 100 MG Tablet PO ×2 (08:57→21:09)
[2022-09-21] MEDS: Aspirin 81 MG TAB.CHEW PO (08:57)
[2022-09-21] MEDS: amLODIPine 5 MG Tablet PO (08:57)
[2022-09-21] MEDS: Mesalamine 1.2 GM Tablet PO ×2 (08:57→21:13)
--- NOTE | 2022-09-21 10:19 | PCM.PROGNOTE ---
Subjective Subjective Patient seen and examined. She had no complaints. She was admitted with a complaint of chest pain. She was admitted to rule out ACS. Patient had no complaints today. Chest pain hasnt recurred. Review of systems is otherwise negative. She has remained hemodynamically stable. Objective Data Objective Data Vital Signs: Vital Signs Temp Pulse Resp BP Pulse Ox O2 Del Method O2 Flow Rate 98.8 F 77 17 139/69 H 92 Room Air 2 09/21/22 08:53 09/21/22 08:57 09/21/22 08:53 09/21/22 08:53 09/21/22 08:53 09/21/22 08:53 09/20/22 21:22 Oxygen Flow Rate (L/min) 2 Oxygen Delivery Method Room Air Weight: 212 lb 12.8 oz Body Mass Index (BMI) 34.3 Intake & Output: Intake and Output for Last 24 Hours 09/19/22 09/20/22 09/21/22 23:59 23:59 23:59 Output Total 0 / 0 0 / 0 Balance 0 / 0 0 / 0 Lab / Micro Data 09/21/22 05:20 09/21/22 05:20 Labs: Laboratory Results - last 24 hr 09/20/22 19:30: WBC 8.5, RBC 3.24 L, Hgb 9.7 L, Hct 29.9 L, MCV 92.3, MCH 29.9, MCHC 32.4, RDW Std Deviation 46.9 H, RDW Coeff of Michael 13.9, Plt Count 212, MPV 10.9, Immature Gran % (Auto) 1.300 H, Neut % (Auto) 73.6 H, Lymph % (Auto) 15.9 L, [place] % (Auto) 6.4, Eos % (Auto) 2.7, Baso % (Auto) 0.1, Absolute Neuts (auto) 6.3, Absolute Lymphs (auto) 1.35, Nucleated RBC % 0, Sodium 140, Potassium 4.8, Chloride 110 H, Carbon Dioxide 25.0, Anion Gap 5, BUN 50 H, Creatinine 2.76 H, Estim Creat Clear Calc 22.57, Est GFR (MDRD) Af Amer 23 L, Est GFR (MDRD) Non-Af 19 L, BUN/Creatinine Ratio 18.1, Glucose 154 H, Calcium 9.2, Troponin I High Sens 12, B-Natriuretic Peptide 171.5 H 09/20/22 21:55: Troponin I High Sens 13 09/20/22 23:35: POC Glucose 109 H 09/21/22 00:12: Troponin I High Sens 13 09/21/22 04:00: POC Glucose 62 L 09/21/22 04:24: POC Glucose 79 09/21/22 05:20: WBC 8.7, RBC 3.01 L, Hgb 9.1 L, Hct 27.8 L, MCV 92.4, MCH 30.2, MCHC 32.7, RDW Std Deviation 47.4 H, RDW Coeff of Michael 14.1, Plt Count 181, MPV 10.2, Immature Gran % (Auto) 0.600, Neut % (Auto) 76.4 H, Lymph % (Auto) 13.5 L, [place] % (Auto) 7.0, Eos % (Auto) 2.4, Baso % (Auto) 0.1, Absolute Neuts (auto) 6.6, Absolute Lymphs (auto) 1.17, Nucleated RBC % 0, Sodium 141, Potassium 4.7, Chloride 112 H, Carbon Dioxide 23.0, Anion Gap 6, BUN 47 H, Creatinine 2.82 H, Estim Creat Clear Calc 22.09, Est GFR (MDRD) Af Amer 23 L, Est GFR (MDRD) Non-Af 19 L, BUN/Creatinine Ratio 16.7, Glucose 94, Calcium 8.7 09/21/22 06:34: POC Glucose 90 Radiography Diagnostic Testing: Radiology Impression Chest X-Ray 09/20/22 19:40 IMPRESSION: No acute findings in the chest. Electronically Signed: Yifan Dietrich MD at 20:03 EDT Reading Location ID and State: [facility] / [place] , Service support , Physical Exam Const alert, oriented x3 and no apparent distress General Appearance: cooperative HEENT normocephalic, head/scalp atraumatic, moist oral mucous membranes and oropharynx normal Neck no lymphadenopathy, supple and no JVD Lymph Lymphatic: no lymphadenopathy noted and no lymphedema noted Resp normal respiratory effort, normal air movement and clear to auscultation bilaterally Cardio regular rate, regular rhythm, S1 normal heart sound, S2 normal heart sound and no murmurs GI normal to inspection, nondistended, normoactive bowel sounds, soft to palpation and non-tender Extremity normal capillary refill, no clubbing, cyanosis or edema and no calf tenderness Extremity Narrative: left AKA with clean stump Skin General Skin Exam: no breakdown Neuro CN's II-XII intact bilaterally, no focal motor deficits, no sensory deficits noted and deep tendon reflexes 2+ bilaterally Motor Exam: strength 5/5 throughout Psych thought process normal, cooperative and affect normal Appearance: appropriate Assessment & Plan Assessment/Plan (1) Hypertension: (2) Chest pain: PLAN: Plan #Chest pain to r/o ACS chest pain hasnt recurred troponins x 3 are negative EKG showed no acute ST changes. for stress test tomorrow PO aspirin 81mg daily and SL nitroglycerin prn #Hyperlipidemia: on statin #Hypertension: on amlodipine and metoprolol #Diabetes mellitus on insulin pump. Patient says she has been hypoglycemic at home. blood sugar this morning was 90. WIll monitor accuchecks ACHS #HINTON: on ursodiol #CKD stage IIIB: Cr is 2.82, which is around her baseline. #Crohn's disease: on rizakinumab and mesalamine #Depression: duloxetine DVT prophylaxis; heparin Charges/Coding Visit Charges Inpatient E&M: 76965 Subs Hosp L2
[2022-09-21] MEDS: Ondansetron 8 MG Tablet PO (10:30)
[2022-09-21 11:50] LABS: Bedside Glucose 94 mg/dL (74-106)
[2022-09-21] MEDS: Diphenoxylate/Atrop 1 Tablet PO (17:11)
[2022-09-21 17:12] LABS: Bedside Glucose 119 mg/dL (74-106)
--- NOTE | 2022-09-21 19:54 | EKG12_ITS ---
Test Reason : CP Blood Pressure : / mmHG Vent. Rate : 076 BPM Atrial Rate : 076 BPM P-R Int : 142 ms QRS Dur : 088 ms QT Int : 404 ms P-R-T Axes : 061 -23 074 degrees QTc Int : 454 ms Sinus rhythm with occasional Premature ventricular complexes Otherwise normal ECG When compared with ECG of 20-SEP-2022 22:45, MANUAL COMPARISON REQUIRED, DATA IS UNCONFIRMED Confirmed by BRE KUMAR, CARLY ([id number]), supervising editor news reel AMI GODOY ([id number]) on 09/23/2022 9:44:32 AM Referred By: [place] Confirmed By:CARLY DÍAZ MD
[2022-09-21] MEDS: traZODone 50 MG Tablet 150 MG PO (21:11)
[2022-09-21] MEDS: DULoxetine Hcl 60 MG Capsule PO (21:11)
[2022-09-21] MEDS: Rosuvastatin 20 MG Tablet PO (21:12)
[2022-09-21] MEDS: 0.9% Saline Lock 10 ML Syringe IV (21:21)
[2022-09-21 21:55] LABS: Bedside Glucose 207 mg/dL (74-106)
[2022-09-22] VITALS (9 sets, daily range): BP systolic 118–144; BP diastolic 64–79; PULSE 65–81; RESP 16–18; TEMP 36.2–36.9; O2SAT 92–98
[2022-09-22 00:52] LABS: Bedside Glucose 205 mg/dL (74-106)
--- NOTE | 2022-09-22 05:55 | EKG12_ITS ---
Test Reason : CP ADMISSION Blood Pressure : / mmHG Vent. Rate : 078 BPM Atrial Rate : 078 BPM P-R Int : 146 ms QRS Dur : 090 ms QT Int : 396 ms P-R-T Axes : 061 -27 085 degrees QTc Int : 451 ms Normal sinus rhythm Minimal voltage criteria for LVH, may be normal variant ( [place] product ) Borderline ECG When compared with ECG of 20-SEP-2022 19:27, MANUAL COMPARISON REQUIRED, DATA IS UNCONFIRMED Confirmed by BRE KUMAR, CARLY ([id number]), make up editor AMI GODOY ([id number]) on 09/23/2022 9:44:53 AM Referred By: [place] Confirmed By:CARLY DÍAZ MD
[2022-09-22] MEDS: Aspirin 81 MG TAB.CHEW PO (06:41)
[2022-09-22] MEDS: Gabapentin 800 MG Tablet PO ×3 (06:41→21:14)
[2022-09-22 07:37] LABS: Absolute Lymphocyte Count 1.26 X10^3/uL (0.83-4.51); Absolute Neutrophil Count 5.3 X10^3/uL (2.0-7.7); Basophil# 0.01 X10^3/uL; Basophil% 0.1 % (0-1); Eosinophil# 0.17 X10^3/uL; Eosinophils% 2.3 % (0-5); Hematocrit 28.6 % (37-47); Hemoglobin 8.8 g/dL (12.0-15.0); Lymphocyte # 1.26 X10^3/ul (0.83-4.51); Lymphocyte % 16.9 % (19-41); Magnesium 1.9 mg/dL (1.6-2.6); Mean Corpuscular Hgb 29.7 pg (27.0-32.0); Mean Corpuscular Volume 96.6 fL (81-99); Mean Platelet Vol. 11.3 fl (6.2-12.0); Monocyte# 0.58 X10^3/uL; Monocyte% 7.8 % (0-10); NRBC Flagged by Analyzer 0 % (0-5); Neutrophil # 5.28 X10^3/uL (2.7-7.7); Platelet Count 182 K/mm3 (150-450); RBC Distribution Width CV 14.2 % (11.6-14.6); RBC Distribution Width SD 50.1 fl (35.1-43.9); Red Blood Count 2.96 M/mm3 (4.2-5.4); White Blood Count 7.4 K/mm3 (4.4-11.0)
[2022-09-22 07:57] LABS: Anion Gap 6 (5-15); BUN 59 mg/dL (7-18); BUN/Creat Ratio 16.3 RATIO (10-20); Calcium,Total 8.8 mg/dL (8.5-10.1); Chloride 111 mmol/L (98-107); Creatinine, Serum 3.62 mg/dL (0.55-1.02); EST Glomerular Filtration Rate 14 mL/min (>60); Est Glom Filt Rate - Afr Amer 17 mL/min (>60); Estimated Creatinine Clearance 17.21 ml/min; Glucose 233 mg/dL (74-106); Potassium 5.3 mmol/L (3.5-5.1); Sodium Level 139 mmol/L (136-145)
[2022-09-22 08:12] LABS: Phosphorus 5.2 mg/dL (2.5-4.9)
[2022-09-22 08:50] LABS: Mean Corp Hgb Conc 30.8 g/dL (32-36)
--- NOTE | 2022-09-22 11:05 | CASEMGMT ---
ROSA CM in to complete [employer] form with patient. RN JEREMY explained [employer] form to patient, patient voiced understanding. Patient signed [employer] form and filed in chart. Patient provided with copy of signed [employer] Form. Patient had no further questions or concerns at this time.
[2022-09-22] MEDS: DULoxetine Hcl 30 MG Capsule PO (11:21)
[2022-09-22] MEDS: Metoprolol Tartrate 100 MG Tablet PO ×2 (11:21→21:17)
[2022-09-22] MEDS: Ferrous Sulfate 325 MG Tablet PO ×2 (11:22→16:47)
[2022-09-22] MEDS: Mesalamine 1.2 GM Tablet PO ×2 (11:22→21:19)
[2022-09-22] MEDS: Pantoprazole Sodium 40 MG Tablet PO (11:22)
[2022-09-22] MEDS: Fenofibrate 48 MG Tablet PO (11:22)
[2022-09-22] MEDS: Ursodiol 250 MG Tablet PO ×2 (11:22→16:47)
[2022-09-22] MEDS: amLODIPine 5 MG Tablet PO (11:22)
[2022-09-22] MEDS: Ergocalciferol 1.25 MG (50, 000 UNIT) Capsule PO (11:22)
[2022-09-22] MEDS: Insulin Lispro 100 UNIT/ML INSULN.PEN SC (11:27)
[2022-09-22 11:41] LABS: Bedside Glucose 250 mg/dL (74-106)
--- NOTE | 2022-09-22 11:52 | PN_ITS ---
Subjective Subjective Patient seen and examined. She had no complaints today. She had an uneventful night and review of systems otherwise negative. She has remained hemodynamically stable. She is for stress test today. Her creatinine noted to have trended up today to 3.65 and potassium was also 5.3. Objective Data Objective Data Vital Signs: Vital Signs Temp Pulse Resp BP Pulse Ox O2 Del Method O2 Flow Rate 98.4 F 78 18 129/73 H 94 Room Air 2 09/22/22 06:45 09/22/22 11:21 09/22/22 06:45 09/22/22 06:45 09/22/22 06:45 09/22/22 06:45 09/21/22 14:42 Oxygen Flow Rate (L/min) 2 Oxygen Delivery Method Room Air Weight: 212 lb 12.784 oz Body Mass Index (BMI) 34.3 Intake & Output: Intake and Output for Last 24 Hours 09/20/22 09/21/22 09/22/22 23:59 23:59 23:59 Intake Total 600 / 600 Output Total 0 / 0 0 / 0 Balance 0 / 0 600 / 600 Lab / Micro Data 09/22/22 07:06 09/22/22 07:06 Labs: Laboratory Results - last 24 hr 09/21/22 16:54: POC Glucose 119 H 09/21/22 21:24: POC Glucose 207 H 09/22/22 00:33: POC Glucose 205 H 09/22/22 07:06: WBC 7.4, RBC 2.96 L, Hgb 8.8 L, Hct 28.6 L, MCV 96.6, MCH 29.7, MCHC 30.8 L D, RDW Std Deviation 50.1 H, RDW Coeff of Michael 14.2, Plt Count 182, MPV 11.3, Immature Gran % (Auto) 1.900 H, Neut % (Auto) 71.0 H, Lymph % (Auto) 16.9 L, [place] % (Auto) 7.8, Eos % (Auto) 2.3, Baso % (Auto) 0.1, Absolute Neuts (auto) 5.3, Absolute Lymphs (auto) 1.26, Nucleated RBC % 0, Sodium 139, Potassium 5.3 H, Chloride 111 H, Carbon Dioxide 22.0, Anion Gap 6, BUN 59 H, Creatinine 3.62 H, Estim Creat Clear Calc 17.21, Est GFR (MDRD) Af Amer 17 L, Est GFR (MDRD) Non-Af 14 L, BUN/Creatinine Ratio 16.3, Glucose 233 H, Calcium 8.8, Phosphorus 5.2 H, Magnesium 1.9 09/22/22 11:20: POC Glucose 250 H Physical Exam Const alert, oriented x3 and no apparent distress General Appearance: cooperative HEENT normocephalic, head/scalp atraumatic, moist oral mucous membranes and oropharynx normal Eyes PERRL Neck no lymphadenopathy, supple and no JVD Lymph Lymphatic: no lymphadenopathy noted and no lymphedema noted Resp normal respiratory effort, normal air movement and clear to auscultation bilaterally Cardio regular rate, regular rhythm, S1 normal heart sound, S2 normal heart sound and no murmurs GI normal to inspection, nondistended, normoactive bowel sounds, soft to palpation and non-tender Extremity normal capillary refill, no clubbing, cyanosis or edema and no calf tenderness Extremity Narrative: left BKA with clean stump Skin General Skin Exam: no breakdown Neuro CN's II-XII intact bilaterally, no focal motor deficits, no sensory deficits noted and deep tendon reflexes 2+ bilaterally Motor Exam: strength 5/5 throughout Psych thought process normal, cooperative and affect normal Appearance: appropriate Assessment & Plan Assessment/Plan (1) Hypertension: (2) Chest pain: PLAN: Plan #Chest pain to r/o ACS * chest pain hasnt recurred * troponins x 3 are negative * EKG showed no acute ST changes. * for stress test today * PO aspirin 81mg daily and SL nitroglycerin prn * * #ZACHERY on CKD 3 * Baseline creatinine is around 2.5. Creatinine was 2.82 yesterday and is up to 3.62 today. Potassium is also up to 5.3. * This may be prerenal. Will hydrate with IV fluids and trend creatinine. Will also give kayexalate o/a of hyperkalemia. * hold any nephrotoxic meds * #Hyperlipidemia: on statin #Hypertension: on amlodipine and metoprolol #Diabetes mellitus * on insulin pump. * accuchecks ACHS * #HINTON: on ursodiol #CKD stage IIIB: Cr is 2.82, which is around her baseline. #Crohn's disease: on rizakinumab and mesalamine #Depression: duloxetine DVT prophylaxis; heparin * Charges/Coding Visit Charges Inpatient E&M: 34606 Subs Hosp L2
[2022-09-22 12:17] LABS: Bedside Glucose 209 mg/dL (74-106)
[2022-09-22] MEDS: 0.9% Normal Saline 1,000 ML 150 ML IV (12:56)
[2022-09-22] MEDS: Sodium Polystyrene Sulfonate 15 GM/60 ML UDC 30 GM PO (13:54)
[2022-09-22] MEDS: Heparin Injection (Vial) 5,000 UNIT/ML VIAL 5000 UNIT SC ×2 (14:12→21:19)
--- NOTE | 2022-09-22 14:43 | STRESSREP ---
Stress Test Report Pharmacologic myocardial perfusion stress test. 52-year-old lady with a history of chest pain Resting EKG demonstrates sinus rhythm with a rate of 73 bpm. Resting blood pressure is 120/64 mmHg. 0.4 mg of regadenoson was infused per usual protocol followed by rapid intravenous saline flush injection. Continuous EKG monitoring was performed. The maximum heart rate was 88 bpm which was 52% of max impacted heart rate the maximum workload was 1 metabolic equivalent. At rest there were no ST or T wave changes noted to suggest ischemia and at peak infusion nonspecific ST changes were noted which did not meet the criteria for ischemia. No clinical angina is noted. The final blood pressure was 148/72 mmHg. Myocardial perfusion protocol. 12 mCi of technetium 99m sestamibi was injected at rest. 0.4 mg of regadenoson was infused per usual protocol. At peak infusion 34.5 mCi of technetium 99m sestamibi was injected stress images were obtained stress and rest images were reconstructed and compared in the short axis vertical long and horizontal long axis. Gated images were also obtained. Perfusion SPECT analysis: Review of the stress images demonstrate normal uptake of tracer noted in all areas of the myocardium. The resting images similar demonstrated normal uptake of tracer noted in all areas of the myocardium. No areas of reversibility are noted to suggest ischemia and no previous infarct is noted. Gated SPECT analysis: The gated ejection fraction is 64%. Conclusion: Normal pharmacologic myocardial perfusion stress test. Preserved ejection fraction.
--- NOTE | 2022-09-22 14:52 | WOUNDNOTE ---
wound photo: right foot
--- NOTE | 2022-09-22 16:00 | CHAPLAIN ---
Type of Pastoral Visit _x__ Initial Visit ___ Follow-up Visit ___ On-call Visit ___ General Patient Visit ___ Spiritual Assessment ___ Family Conference ___ Bereavement ___ Rapid Response ___ Code Blue ___ Other (describe below) Pastoral Care Referral From _x__ Patient ___ Family ___ Nurse ___ Physician ___ Supervisor [employer] ___ Analyst [employer]etitive Intelligence ___ Other (describe below) Sacrament/Intervention _x__ Active listening ___ Anointing ___ Congregation ___ Bereavement ___ Communion _x__ Leticia exploration ___ _x__ Life review _x__ Prayer ___ Reconciliation ___ Sacrament of Sick _x__ Supportive presence ___ Wedding ___ Other (describe below) Pastoral Comments patient reports on her health issues both past and current; pt is waiting on more answers and for the needs of near future; pt identifies as a person of leticia with a strong connection to a scientologist; pt states that leticia in God is what gets her through these experiences; pt asks for prayer support for strength to continue in this physical need; pt expresses appreciation for spiritual care ministry to her
[2022-09-22 16:58] LABS: Bedside Glucose 147 mg/dL (74-106)
[2022-09-22] MEDS: DULoxetine Hcl 60 MG Capsule PO (21:15)
[2022-09-22] MEDS: traZODone 50 MG Tablet 150 MG PO (21:16)
[2022-09-22] MEDS: Rosuvastatin 20 MG Tablet PO (21:19)
[2022-09-22 21:50] LABS: Bedside Glucose 142 mg/dL (74-106)
[2022-09-23] VITALS (9 sets, daily range): BP systolic 119–156; BP diastolic 66–74; PULSE 66–75; RESP 14–18; TEMP 36.2–36.6; O2SAT 18–98; BMI 35.0
[2022-09-23] MEDS: Gabapentin 800 MG Tablet PO ×3 (05:35→21:34)
[2022-09-23] MEDS: Heparin Injection (Vial) 5,000 UNIT/ML VIAL 5000 UNIT SC ×3 (05:35→21:34)
[2022-09-23 06:13] LABS: Absolute Lymphocyte Count 1.53 X10^3/uL (0.83-4.51); Absolute Neutrophil Count 5.6 X10^3/uL (2.0-7.7); Basophil# 0.01 X10^3/uL; Basophil% 0.1 % (0-1); Eosinophil# 0.14 X10^3/uL; Eosinophils% 1.8 % (0-5); Hematocrit 30.5 % (37-47); Hemoglobin 9.3 g/dL (12.0-15.0); Lymphocyte # 1.53 X10^3/ul (0.83-4.51); Lymphocyte % 19.3 % (19-41); Mean Corp Hgb Conc 30.5 g/dL (32-36); Mean Corpuscular Hgb 29.2 pg (27.0-32.0); Mean Corpuscular Volume 95.6 fL (81-99); Mean Platelet Vol. 10.5 fl (6.2-12.0); Monocyte# 0.47 X10^3/uL; Monocyte% 5.9 % (0-10); NRBC Flagged by Analyzer 0 % (0-5); Neutrophil # 5.62 X10^3/uL (2.7-7.7); Neutrophil % 71.1 % (47-70); Platelet Count 219 K/mm3 (150-450); RBC Distribution Width SD 48.4 fl (35.1-43.9); Red Blood Count 3.19 M/mm3 (4.2-5.4); White Blood Count 7.9 K/mm3 (4.4-11.0)
[2022-09-23 06:48] LABS: Bedside Glucose 43 mg/dL (74-106)
[2022-09-23 06:51] LABS: Anion Gap 3 (5-15); BUN 58 mg/dL (7-18); BUN/Creat Ratio 16.7 RATIO (10-20); Calcium,Total 9.4 mg/dL (8.5-10.1); Chloride 113 mmol/L (98-107); Creatinine, Serum 3.48 mg/dL (0.55-1.02); EST Glomerular Filtration Rate 15 mL/min (>60); Est Glom Filt Rate - Afr Amer 18 mL/min (>60); Glucose 57 mg/dL (74-106); Potassium 4.2 mmol/L (3.5-5.1); Sodium Level 142 mmol/L (136-145)
[2022-09-23 07:10] LABS: Bedside Glucose 67 mg/dL (74-106)
[2022-09-23 07:28] LABS: Bedside Glucose 82 mg/dL (74-106)
--- NOTE | 2022-09-23 07:29 | NURSING ---
pt notified RN of feeling like her blood sugar was low. BG checked was 43 hypoglycemic protocol followed per policy. Rechecked for BG of 82.
[2022-09-23] MEDS: Pantoprazole Sodium 40 MG Tablet PO (08:19)
[2022-09-23] MEDS: Fenofibrate 48 MG Tablet PO (08:19)
[2022-09-23] MEDS: amLODIPine 5 MG Tablet PO (08:19)
[2022-09-23] MEDS: Metoprolol Tartrate 100 MG Tablet PO ×2 (08:19→21:33)
[2022-09-23] MEDS: Ursodiol 250 MG Tablet PO ×2 (08:20→17:01)
[2022-09-23] MEDS: DULoxetine Hcl 30 MG Capsule PO (08:20)
[2022-09-23] MEDS: Ferrous Sulfate 325 MG Tablet PO ×3 (08:20→17:01)
[2022-09-23] MEDS: Aspirin 81 MG TAB.CHEW PO (08:20)
[2022-09-23] MEDS: Mesalamine 1.2 GM Tablet PO ×2 (08:21→21:34)
[2022-09-23] MEDS: 0.9% Normal Saline 1,000 ML 125 ML IV ×2 (08:56→17:05)
--- NOTE | 2022-09-23 11:28 | PN_ITS ---
Subjective Subjective Patient seen and examined. She has no complaints today and feels well. Review of symptoms otherwise negative. Her stress test was negative yesterday. However her creatinine has only trended up slightly and still remains elevated. Review of systems otherwise negative. She does tell me that she is not able to urinate a whole lot. Objective Data Objective Data Vital Signs: Vital Signs Temp Pulse Resp BP Pulse Ox O2 Del Method O2 Flow Rate 97.6 F L 71 18 132/68 H 18 Room Air 2 09/23/22 09:24 09/23/22 09:24 09/23/22 09:24 09/23/22 09:24 09/23/22 09:24 09/23/22 09:24 09/21/22 14:42 Oxygen Flow Rate (L/min) 2 Oxygen Delivery Method Room Air Weight: 217 lb Body Mass Index (BMI) 35.0 Intake & Output: Intake and Output for Last 24 Hours 09/21/22 09/22/22 09/23/22 23:59 23:59 23:59 Intake Total 600 / 600 1000 / 1000 Output Total 0 / 0 Balance 600 / 600 1000 / 1000 Lab / Micro Data 09/23/22 06:04 09/23/22 06:04 Labs: Laboratory Results - last 24 hr 09/22/22 06:45: POC Glucose 209 H 09/22/22 11:20: POC Glucose 250 H 09/22/22 16:28: POC Glucose 147 H 09/22/22 21:29: POC Glucose 142 H 09/23/22 06:04: WBC 7.9, RBC 3.19 L, Hgb 9.3 L, Hct 30.5 L, MCV 95.6, MCH 29.2, MCHC 30.5 L, RDW Std Deviation 48.4 H, RDW Coeff of Michael 14.0, Plt Count 219, MPV 10.5, Immature Gran % (Auto) 1.800 H, Neut % (Auto) 71.1 H, Lymph % (Auto) 19.3, [place] % (Auto) 5.9, Eos % (Auto) 1.8, Baso % (Auto) 0.1, Absolute Neuts (auto) 5.6, Absolute Lymphs (auto) 1.53, Nucleated RBC % 0, Sodium 142, Potassium 4.2, Chloride 113 H, Carbon Dioxide 26.0, Anion Gap 3 L, BUN 58 H, Creatinine 3.48 H, Estim Creat Clear Calc 17.90, Est GFR (MDRD) Af Amer 18 L, Est GFR (MDRD) Non-Af 15 L, BUN/Creatinine Ratio 16.7, Glucose 57 L, Calcium 9.4 09/23/22 06:30: POC Glucose 43 L* 09/23/22 06:51: POC Glucose 67 L 09/23/22 07:10: POC Glucose 82 Physical Exam Const alert, oriented x3 and no apparent distress General Appearance: cooperative and well developed HEENT normocephalic, head/scalp atraumatic, moist oral mucous membranes and oropharynx normal Eyes PERRL and EOMs intact bilaterally Neck no lymphadenopathy, supple and no JVD Lymph Lymphatic: no lymphadenopathy noted and no lymphedema noted Resp normal respiratory effort, normal air movement and clear to auscultation bilaterally Cardio regular rate, regular rhythm, S1 normal heart sound, S2 normal heart sound and no murmurs GI normal to inspection, nondistended, normoactive bowel sounds, soft to palpation and non-tender Extremity normal capillary refill, no clubbing, cyanosis or edema and no calf tenderness Extremity Narrative: left BKA with clean stump Skin General Skin Exam: no breakdown Neuro CN's II-XII intact bilaterally, no focal motor deficits, no sensory deficits noted and deep tendon reflexes 2+ bilaterally Motor Exam: strength 5/5 throughout Psych thought process normal, cooperative and affect normal Appearance: appropriate Assessment & Plan Assessment/Plan (1) Hypertension: (2) Chest pain: PLAN: Plan #Chest pain to r/o ACS * chest pain hasnt recurred * troponins x 3 are negative * EKG showed no acute ST changes. * stress test was negative. Chest pain hassnt recurred. * PO aspirin 81mg daily and SL nitroglycerin prn * * #ZACHERY on CKD 3 * Baseline creatinine is around 2.5. * Cr is down to 3.48, from 3.62 yesterday. She says she is not able to urinate a lot * will insert Huerta catheter to monitor urine output * continue gentle hydration with IVF. * hold any nephrotoxic meds * #Hyperlipidemia: on statin #Hypertension: on amlodipine and metoprolol #Diabetes mellitus * on insulin pump. * accuchecks ACHS * #HINTON: on ursodiol #CKD stage IIIB: Cr is 2.82, which is around her baseline. #Crohn's disease: on rizakinumab and mesalamine #Depression: duloxetine DVT prophylaxis; heparin * * #DIsposition: anticipate dc tomorrow if kidney function has improved. Charges/Coding Visit Charges Inpatient E&M: 67893 Subs Hosp L2
[2022-09-23 11:39] LABS: Bedside Glucose 115 mg/dL (74-106)
--- NOTE | 2022-09-23 11:40 | CASEMGMT ---
RN CM Face to Face with patient for initial transition planning/care coordination assessment. RN CM introduced self and role at [facility]. Patient lying in bed, alert and oriented. Patient willing to participate in assessment and is able to answer all questions appropriately. Care providers, pharmacy, and demographics verified. Patient wishes to discharge home, denies need for home health at this time. Patient states she has no further needs or concerns at this time. CM to follow for discharge planning needs that may arise. PCP: Tony Specialists: Hiram, Nephro; Friend, GI; Ang, laborer airport maintenance; Lisandro, cloth printer helper; Tyron, logistical engineer Preferred Pharmacy: [facility], [place]; [facility] retail at discharge Insurance: [place] [facility] Prescription Benefit: yes Living Will/HPOA: yes, Alek Lux LNOK: , daughter Living Arrangements: Patient lives with in a 2 story home with bed and bath on first floor, ramp to enter the home. Patient states she is independent at home. Transportation: self, DME/HHC: Patient has shower chair, raised toilet, grab bars, walker, cpap, nebulizer, pulse ox, glucometer, and home oxygen at and PRN through [facility] with portability. Patient has been to [facility] in the past and has had [facility] in the past. Disposition Plan: Patient to discharge home with family support and follow-up plans in place. Cheryl BETTS, RN, CM
[2022-09-23 17:25] LABS: Bedside Glucose 97 mg/dL (74-106)
[2022-09-23] MEDS: traZODone 50 MG Tablet 150 MG PO (21:34)
[2022-09-23] MEDS: Rosuvastatin 20 MG Tablet PO (21:34)
[2022-09-23] MEDS: DULoxetine Hcl 60 MG Capsule PO (21:34)
[2022-09-23] MEDS: Insulin Basal Pump 2.2 UNIT SC (21:35)
[2022-09-23 22:00] LABS: Bedside Glucose 91 mg/dL (74-106)
[2022-09-24 04:00] VITALS: BP 142/72; PULSE 73; RESP 14; TEMP 36.3; O2SAT 96
[2022-09-24 05:27] VITALS: BMI 35.4
[2022-09-24 06:29] LABS: Absolute Lymphocyte Count 1.18 X10^3/uL (0.83-4.51); Absolute Neutrophil Count 4.3 X10^3/uL (2.0-7.7); Basophil# 0.01 X10^3/uL; Basophil% 0.2 % (0-1); Eosinophil# 0.14 X10^3/uL; Eosinophils% 2.3 % (0-5); Hematocrit 26.3 % (37-47); Hemoglobin 8.3 g/dL (12.0-15.0); Lymphocyte # 1.18 X10^3/ul (0.83-4.51); Lymphocyte % 19.5 % (19-41); Mean Corp Hgb Conc 31.6 g/dL (32-36); Mean Corpuscular Hgb 29.9 pg (27.0-32.0); Mean Corpuscular Volume 94.6 fL (81-99); Mean Platelet Vol. 10.6 fl (6.2-12.0); Monocyte# 0.39 X10^3/uL; Monocyte% 6.4 % (0-10); NRBC Flagged by Analyzer 0 % (0-5); Neutrophil # 4.27 X10^3/uL (2.7-7.7); Neutrophil % 70.6 % (47-70); Platelet Count 180 K/mm3 (150-450); RBC Distribution Width CV 14.5 % (11.6-14.6); RBC Distribution Width SD 49.6 fl (35.1-43.9); Red Blood Count 2.78 M/mm3 (4.2-5.4); White Blood Count 6.1 K/mm3 (4.4-11.0)
[2022-09-24] MEDS: Gabapentin 800 MG Tablet PO (06:52)
[2022-09-24] MEDS: Heparin Injection (Vial) 5,000 UNIT/ML VIAL 5000 UNIT SC (06:54)
[2022-09-24 06:56] LABS: Anion Gap 3 (5-15); BUN 52 mg/dL (7-18); BUN/Creat Ratio 15.7 RATIO (10-20); Calcium,Total 8.4 mg/dL (8.5-10.1); Chloride 113 mmol/L (98-107); Creatinine, Serum 3.31 mg/dL (0.55-1.02); EST Glomerular Filtration Rate 16 mL/min (>60); Est Glom Filt Rate - Afr Amer 19 mL/min (>60); Estimated Creatinine Clearance 18.82 ml/min; Glucose 80 mg/dL (74-106); Potassium 4.1 mmol/L (3.5-5.1); Sodium Level 141 mmol/L (136-145)
[2022-09-24 07:57] VITALS: BP 134/70; PULSE 71
[2022-09-24] MEDS: Ondansetron 8 MG Tablet PO (07:57)
[2022-09-24] MEDS: Metoprolol Tartrate 100 MG Tablet PO (07:57)
[2022-09-24] MEDS: Ergocalciferol 1.25 MG (50, 000 UNIT) Capsule PO (07:57)
[2022-09-24] MEDS: Fenofibrate 48 MG Tablet PO (07:57)
[2022-09-24] MEDS: Pantoprazole Sodium 40 MG Tablet PO (07:57)
[2022-09-24] MEDS: Mesalamine 1.2 GM Tablet PO (07:58)
[2022-09-24] MEDS: Ursodiol 250 MG Tablet PO (07:58)
[2022-09-24] MEDS: Aspirin 81 MG TAB.CHEW PO (07:58)
[2022-09-24] MEDS: DULoxetine Hcl 30 MG Capsule PO (07:58)
[2022-09-24] MEDS: Ferrous Sulfate 325 MG Tablet PO ×2 (07:58→11:20)
[2022-09-24] MEDS: amLODIPine 5 MG Tablet PO (07:59)
[2022-09-24 09:14] LABS: Bedside Glucose 66 mg/dL (74-106)
[2022-09-24 09:14] LABS: Bedside Glucose 68 mg/dL (74-106)
[2022-09-24 10:00] VITALS: BP 129/60; PULSE 67; RESP 18; TEMP 36.7; O2SAT 92
[2022-09-24 11:22] LABS: Bedside Glucose 145 mg/dL (74-106)
[2022-09-24 11:30] VITALS: BP 129/60; PULSE 67; RESP 18; TEMP 36.7; O2SAT 92
[2022-09-24 11:38] VITALS: BP 129/60; PULSE 67; RESP 18; TEMP 36.7; O2SAT 96
[2022-09-24 11:52] LABS: Bedside Glucose 60 mg/dL (74-106)
--- NOTE | 2022-09-24 11:53 | PCM.DC.SUM ---
Providers Date of Admission: 09/22/22 Date of Discharge: 09/24/22 Primary Care Physician: Dr. Johann Jimenez MD Consultations 09/21/22 13:27 Consult: Onc/Wound/patient financial services specialist Routine Comment: Reason for Consult:: Right foot diabetic wound Reason For Visit: CHEST PAIN R/O Diagnosis Discharge Diagnosis (1) Hypertension: Status: Chronic Code(s): I10 - Essential (primary) hypertension (2) Chest pain: Status: Acute Code(s): R07.9 - Chest pain, unspecified Plan #Chest pain to r/o ACS chest pain hasnt recurred troponins x 3 are negative EKG showed no acute ST changes. stress test was negative. Chest pain hassnt recurred. PO aspirin 81mg daily and SL nitroglycerin prn #ZACHERY on CKD 3 Baseline creatinine is around 2.5. Cr is down to 3.48, from 3.62 yesterday. She says she is not able to urinate a lot will insert Huerta catheter to monitor urine output continue gentle hydration with IVF. hold any nephrotoxic meds #Hyperlipidemia: on statin #Hypertension: on amlodipine and metoprolol #Diabetes mellitus on insulin pump. accuchecks ACHS #HINTON: on ursodiol #CKD stage IIIB: Cr is 2.82, which is around her baseline. #Crohn's disease: on rizakinumab and mesalamine #Depression: duloxetine DVT prophylaxis; heparin #DIsposition: anticipate dc tomorrow if kidney function has improved. Medications at Discharge Home Medications duloxetine 60 mg capsule,delayed release 60 mg PO QHS depression 11/26/12 insulin regular hum U-500 conc 500 unit/mL subcutaneous soln 2.2 units subcut CONT insulin pump 10/02/15 trazodone 100 mg tablet 150 mg PO QHS sleep 12/27/15 ergocalciferol (vitamin D2) 1,250 mcg (50,000 unit) capsule 50,000 unit PO MOWEFR supplement 01/24/16 ferrous sulfate 325 mg (65 mg iron) tablet 325 mg PO TIDCM anemia 01/24/16 albuterol sulfate 2.5 mg/3 mL (0.083 %) solution for nebulization 2.5 mg inhalation Q4H PRN PRN Wheezing 06/09/16 gabapentin 800 mg tablet 800 mg PO TID neuropathy 05/19/17 rosuvastatin 10 mg tablet 20 mg PO QHS cholesterol 06/03/17 insulin aspart U-100 100 unit/mL (3 mL) subcutaneous pen See Protocol subcut ACHS diabetes 07/30/18 magnesium oxide 400 mg (241.3 mg magnesium) tablet 400 mg PO DAILYCM supplement 07/30/18 hydroxyzine pamoate 50 mg capsule 50 mg PO TID PRN Anxiety 02/20/20 duloxetine 30 mg capsule,delayed release 30 mg PO DAILY depression 05/09/20 fenofibrate 160 mg tablet 43 mg PO DAILY 05/29/20 omeprazole 20 mg capsule,delayed release 40 mg PO DAILY 07/18/21 ondansetron 4 mg disintegrating tablet 8 mg PO Q8H PRN PRN Nausea 09/03/21 metoprolol tartrate 25 mg tablet 100 mg PO BID 05/14/22 epoetin regan-epbx 20,000 unit/2 mL injection solution (Retacrit) 20,000 unit subcut ONCE 07/30/22 diphenoxylate-atropine 2.5 mg-0.025 mg tablet (Lomotil) 1 tab PO BID PRN diarrhea #180 tabs 08/04/22 hyoscyamine sulfate 0.125 mg tablet 0.125 mg PO BID-QID PRN abdominal pain #360 tabs 08/04/22 risankizumab-rzaa 360 mg/2.4 mL (150 mg/mL) subcut wearable injector (Skyrizi) 360 mg (2.4 mL) subcut .COMPLEX #2.4 mL 08/04/22 ursodiol 300 mg capsule 300 mg PO BID LIVER #180 caps 08/04/22 mesalamine 500 mg capsule,extended release (Pentasa) 1,000 mg (2 x 500 mg) PO BID Crohn's #360 caps 08/06/22 amlodipine 5 mg tablet 5 mg PO DAILY #30 tabs 08/22/22 Hospital Course Operations None Procedures None Summary of Care Provided Minutes Spent on Discharge: 45 Hospital Course: Patient is a 52-year-old female with a past medical history as outlined was admitted to the ED on 09/20/2022 with a complaint of chest pain which had been going on intermittently throughout the day. Subsequently resolved with nitro and she came into the ED. EKG showed no acute ST changes and troponins x 3 were not elevated. She was admitted and managed for chest pain to rule out ACS. She had a stress test which was negative for any evidence of ischemia. Hospital course was complicated by creatinine trending upwards to 3.62 from 2.82 whilst in the hospital. She was therefore managed for ZACHERY on CKD stage III. She was hydrated with IV fluids and creatinine gradually trended down to 3.31. Patient stated that she was due to get an iron infusion at a cutter and edge trimmer office on 09/25/2022. She requested to be given the transfusion while she was in the hospital. She was therefore given IV iron infusion 300 mg x 1. She remained stable and was discharged home on 09/24/2022. She is follow-up with her primary care doctor the day after discharge for repeat BMP to assess her kidney function to be sure it is improving. She is also to follow-up with her cutter and edge trimmer as scheduled. Patient seen and examined prior to discharge. She felt well and had no complaints. She had an uneventful night and review systems otherwise negative. Labs and vitals reviewed. Home medication reviewed and reconciled. Physical Exam Const alert, oriented x3 and no apparent distress General Appearance: cooperative, comfortable, well kempt and well developed HEENT normocephalic, head/scalp atraumatic, hearing grossly normal bilaterally, moist oral mucous membranes and oropharynx normal Mouth: oral and palatal mucosa normal Eyes PERRL and EOMs intact bilaterally Neck no lymphadenopathy, supple and no JVD Lymph Lymphatic: no lymphadenopathy noted and no lymphedema noted Resp normal respiratory effort, normal air movement and clear to auscultation bilaterally Cardio regular rate, regular rhythm, S1 normal heart sound, S2 normal heart sound and no murmurs GI normal to inspection, nondistended, normoactive bowel sounds, soft to palpation and non-tender Extremity normal to inspection, full ROM, normal capillary refill, no clubbing, cyanosis or edema and no calf tenderness Extremity Narrative: left BKA with clean stump Skin no rashes or lesions noted and no wounds General Skin Exam: no breakdown Neuro oriented x3, CN's II-XII intact bilaterally, moves all extremities, no focal motor deficits, no sensory deficits noted and deep tendon reflexes 2+ bilaterally Sensorium / Orientation: awake and alert Motor Exam: strength 5/5 throughout Psych thought process normal, cooperative and affect normal Appearance: appropriate Weight / BMI Weight Weight: 219 lb 12.814 oz Body Mass Index (BMI) 35.4 ABG / Lab / Microbiology Data 09/24/22 05:58 09/24/22 05:58 Laboratory: Laboratory Results - last 24 hr 09/23/22 16:54: POC Glucose 97 09/23/22 21:31: POC Glucose 91 09/24/22 05:58: WBC 6.1, RBC 2.78 L, Hgb 8.3 L, Hct 26.3 L, MCV 94.6, MCH 29.9, MCHC 31.6 L, RDW Std Deviation 49.6 H, RDW Coeff of Michael 14.5, Plt Count 180, MPV 10.6, Immature Gran % (Auto) 1.000 H, Neut % (Auto) 70.6 H, Lymph % (Auto) 19.5, [place] % (Auto) 6.4, Eos % (Auto) 2.3, Baso % (Auto) 0.2, Absolute Neuts (auto) 4.3, Absolute Lymphs (auto) 1.18, Nucleated RBC % 0, Sodium 141, Potassium 4.1, Chloride 113 H, Carbon Dioxide 25.0, Anion Gap 3 L, BUN 52 H, Creatinine 3.31 H, Estim Creat Clear Calc 18.82, Est GFR (MDRD) Af Amer 19 L, Est GFR (MDRD) Non-Af 16 L, BUN/Creatinine Ratio 15.7, Glucose 80, Calcium 8.4 L 09/24/22 06:51: POC Glucose 60 L 09/24/22 07:46: POC Glucose 66 L 09/24/22 08:08: POC Glucose 68 L 09/24/22 10:48: POC Glucose 145 H D/C Instructions Discharge Diet: Low fat / Low cholesterol Weight Bearing Status: Weight bearing as tolerated Call your doctor if you observe: Fever of 101 or Higher, Shortness of breath, Dizziness, Swelling in the ankles, Chest pain and Increased palpitations (irregular heartbeat) Meaningful Use Info Meaningful Use Diagnoses (Choose all that apply): None applicable Discharge Plan Admission Admit Date/Time: 09/22/22 15:40 Primary Reason for Your Visit: chest pain, ZACHERY Attending Provider: Yolis Holly Primary Care Provider: Johann Jimenez Consulting Providers: Raulito Guzmán Instructions Patient Instructions: ED Chest Pain, Noncardiac, ED Heart Disease Risk Factors Additional Instructions / Restrictions: follow up with PCP tomorrow to check BMP to evaluate kidney function> Encouraged to drink at least 2L of water daily to help flush out kidneys Discharge Orders/Prescriptions Prescriptions: Continued fenofibrate 160 mg tablet 43 mg PO DAILY omeprazole 20 mg capsule,delayed release(DR/EC) 40 mg PO DAILY ondansetron 4 mg tablet,disintegrating 8 mg PO Q8H PRN PRN (Reason: Nausea) metoprolol tartrate 25 mg tablet 100 mg PO BID Retacrit 20,000 unit/2 mL solution 20,000 unit subcut ONCE duloxetine 60 MG capsule 60 mg PO QHS Patient Comments: DEPRESSION AND PAIN CONTROL insulin regular hum U-500 conc 20 ML solution 2.2 units SC CONT Patient Comments: insulin pump Rx Instructions: changed site today 02/19/20 trazodone 100 MG tablet 150 mg PO QHS Patient Comments: SLEEP ferrous sulfate 325 MG tablet 325 mg PO TIDCM Patient Comments: anemia ergocalciferol (vitamin D2) 50,000 UNIT capsule 50,000 unit PO MOWEFR Patient Comments: supplement albuterol sulfate 2.5 MG/3 ML solution for nebulization 2.5 mg INHALATION Q4H PRN PRN (Reason: Wheezing) Patient Comments: shortness of breath gabapentin 800 MG tablet 800 mg PO TID Patient Comments: nerve pain rosuvastatin 10 mg tablet 20 mg PO QHS magnesium oxide 400 MG tablet 400 mg PO DAILYCM insulin aspart U-100 100 UNITS/ML insulin pen See Protocol SC ACHS Protocol: 6. Sliding Scale Insulin Custom Condition: mg/dl range Dose/Route: Number of Units Protocol Text: Custom Sliding Scale Patient Comments: if blood sugar is over 200. calculate reading over 200. divide in half and give that many units of insulin. duloxetine 30 mg capsule,delayed release(DR/EC) 30 mg PO DAILY hydroxyzine pamoate 50 MG capsule 50 mg PO TID PRN (Reason: Anxiety) ursodiol 300 mg capsule 300 mg PO BID Qty: 180 3RF diphenoxylate-atropine [Lomotil] 2.5-0.025 mg tablet 1 tab PO BID PRN (Reason: diarrhea) Qty: 180 3RF hyoscyamine sulfate 0.125 mg tablet 0.125 mg PO BID-QID PRN (Reason: abdominal pain) Qty: 360 3RF Skyrizi 360 mg/2.4 mL (150 mg/mL) wearable injector 360 mg subcut .COMPLEX Qty: 2.4 6RF Rx Instructions: 360 mg subcutaneously every 8 weeks; mesalamine [Pentasa] 500 mg capsule, extended release 1,000 mg PO BID Qty: 360 0RF amlodipine 5 mg tablet 5 mg PO DAILY Qty: 30 11RF Referrals / Follow Up: Johann Jimenez MD [Primary Care Provider] - Within 1 Week Disposition Disposition (needs filled in before D/C Order can be placed): Home, Self Care Charges/Coding Visit Charges Inpatient E&M: 29307 Disch Hosp >30min
--- NOTE | 2022-09-24 12:09 | PHA.DC.MR.R ---
Pharmacy [place] Med Reconciliation Pharmacy Service has performed discharge medication reconciliation for this patient. The patient's discharge medication list was reviewed for discrepancies and discrepancies were resolved. Medications at Discharge Home Medications duloxetine 60 mg capsule,delayed release 60 mg PO QHS depression 11/26/12 insulin regular hum U-500 conc 500 unit/mL subcutaneous soln 2.2 units subcut CONT insulin pump 10/02/15 trazodone 100 mg tablet 150 mg PO QHS sleep 12/27/15 ergocalciferol (vitamin D2) 1,250 mcg (50,000 unit) capsule 50,000 unit PO MOWEFR supplement 01/24/16 ferrous sulfate 325 mg (65 mg iron) tablet 325 mg PO TIDCM anemia 01/24/16 albuterol sulfate 2.5 mg/3 mL (0.083 %) solution for nebulization 2.5 mg inhalation Q4H PRN PRN Wheezing 06/09/16 gabapentin 800 mg tablet 800 mg PO TID neuropathy 05/19/17 rosuvastatin 10 mg tablet 20 mg PO QHS cholesterol 06/03/17 insulin aspart U-100 100 unit/mL (3 mL) subcutaneous pen See Protocol subcut ACHS diabetes 07/30/18 magnesium oxide 400 mg (241.3 mg magnesium) tablet 400 mg PO DAILYCM supplement 07/30/18 hydroxyzine pamoate 50 mg capsule 50 mg PO TID PRN Anxiety 02/20/20 duloxetine 30 mg capsule,delayed release 30 mg PO DAILY depression 05/09/20 fenofibrate 160 mg tablet 43 mg PO DAILY 05/29/20 omeprazole 20 mg capsule,delayed release 40 mg PO DAILY 07/18/21 ondansetron 4 mg disintegrating tablet 8 mg PO Q8H PRN PRN Nausea 09/03/21 metoprolol tartrate 25 mg tablet 100 mg PO BID 05/14/22 epoetin regan-epbx 20,000 unit/2 mL injection solution (Retacrit) 20,000 unit subcut ONCE 07/30/22 diphenoxylate-atropine 2.5 mg-0.025 mg tablet (Lomotil) 1 tab PO BID PRN diarrhea #180 tabs 08/04/22 hyoscyamine sulfate 0.125 mg tablet 0.125 mg PO BID-QID PRN abdominal pain #360 tabs 08/04/22 risankizumab-rzaa 360 mg/2.4 mL (150 mg/mL) subcut wearable injector (Skyrizi) 360 mg (2.4 mL) subcut .COMPLEX #2.4 mL 08/04/22 ursodiol 300 mg capsule 300 mg PO BID LIVER #180 caps 08/04/22 mesalamine 500 mg capsule,extended release (Pentasa) 1,000 mg (2 x 500 mg) PO BID Crohn's #360 caps 08/06/22 amlodipine 5 mg tablet 5 mg PO DAILY #30 tabs 08/22/22
--- NOTE | 2022-09-24 13:05 | NURSING ---
patient discharged home per orders. Transport in wheelchair to infusion center then to be transported by daughter to home in private vehicle.
== END 2022-09-24 13:05 | disposition home or self-care (01) | DRG 683 ==
LOC: ED 21:28 → PCU 21:36
PROVIDERS: Admitting Provider Family Medicine; Emergency Provider Emergency Medicine; PCP Family Medicine; Visit Provider Student in an Organized Health Care Education/Training Program
DX: R07.89 Other chest pain (principal); Z89.512 Acquired absence of left leg below knee; E43 Unspecified severe protein-calorie malnutrition; N17.9 Acute kidney failure, unspecified; J44.9 Chronic obstructive pulmonary disease, unspecified; I27.20 Pulmonary hypertension, unspecified; K50.90 Crohn's disease, unspecified, without complications; E11.22 Type 2 diabetes mellitus with diabetic chronic kidney disease; E11.42 Type 2 diabetes mellitus with diabetic polyneuropathy; E66.01 Morbid (severe) obesity due to excess calories; Z79.4 Long term (current) use of insulin; N18.32 Chronic kidney disease, stage 3b; D63.8 Anemia in other chronic diseases classified elsewhere; D50.9 Iron deficiency anemia, unspecified; I12.9 Hypertensive chronic kidney disease with stage 1 through stage 4 chronic kidney disease, or unspecified chronic kidney disease; K75.81 Nonalcoholic steatohepatitis (NASH); F32.A Depression, unspecified; K21.9 Gastro-esophageal reflux disease without esophagitis; E78.00 Pure hypercholesterolemia, unspecified; Z86.16 Personal history of COVID-19; Z96.41 Presence of insulin pump (external) (internal); Z68.36 Body mass index [BMI] 36.0-36.9, adult; S91.301A Unspecified open wound, right foot, initial encounter; Z79.899 Other long term (current) drug therapy; X58.XXXA Exposure to other specified factors, initial encounter
CPT/HCPCS: 36415; 71045; 78452; 80048; 82962; 83735; 83880; 84100; 84484; 85025; 93005; 93017; 96361; 96372; 96374; 96375; 97802; 99221; 99285; A9500; J7030; J7050; A4216; G0378; J2405; J2785; J2916; Q5106

== ENCOUNTER 2022-11-12 12:12 | Outpatient (CLI) | payer MEDICARE, SELFPAY ==
--- NOTE | 2022-11-12 12:27 | RAD_ITS ---
STUDY: X-RAY - LUMBAR SPINE REASON FOR EXAM: Female, 52 years old. Spinal stenosis. TECHNIQUE: 5 view(s) of the lumbar spine were obtained. COMPARISON: MRI of the lumbar spine dated April 2016. FINDINGS: Normal lumbar lordosis. There is no substantial scoliosis. There is a normal alignment of the vertebrae. Mild diffuse lower thoracic and lumbosacral facet sclerosis. Normal disc space heights. Normal soft tissues. RAD/L/S Spine Min 4 Views IMPRESSION: Mild diffuse lower thoracic and lumbosacral facet sclerosis. No acute abnormality or erosive changes. Electronically Signed: Sahil Resendez MD at 13:34 EDT ,
== END 2022-11-12 23:59 | disposition home or self-care (01) ==
PROVIDERS: PCP Family Medicine; Referring Provider Anesthesiology Pain Medicine; Visit Provider Anesthesiology Pain Medicine
DX: M48.07 Spinal stenosis, lumbosacral region (principal); N18.5 Chronic kidney disease, stage 5; N25.81 Secondary hyperparathyroidism of renal origin; D63.1 Anemia in chronic kidney disease; D50.9 Iron deficiency anemia, unspecified; E55.9 Vitamin D deficiency, unspecified
CPT/HCPCS: 72110; 80069; 83970; 85025; 96372; Q5106

== ENCOUNTER → 2022-12-16 | Outpatient (CLI) | payer MEDICARE, SELFPAY ==
--- NOTE | 2022-12-16 16:06 | RAD_ITS ---
INDICATION: cough EXAMINATION/TECHNIQUE: X-RAY - XR Chest 2 Views COMPARISON: 09/20/2022. FINDINGS: LINES/DEVICES: None. LUNGS: No consolidation, edema or effusion. No pneumothorax. MEDIASTINUM AND CARDIOVASCULAR STRUCTURES: Cardiac silhouette not enlarged. Central airways and mediastinal contour are unremarkable. BONES AND SOFT TISSUES: Unremarkable. RAD/Chest PA and Lateral IMPRESSION: No radiographic evidence of acute cardiopulmonary disease. Electronically Signed: Carla Wallace MD at 17:50 EDT Reading Location ID and State: [id number] / Tel , Service support ,
== END | disposition home or self-care (01) ==
LOC: MTRAD 16:06
PROVIDERS: PCP Family Medicine; Referring Provider Physician Assistant; Visit Provider Physician Assistant
DX: R05.9 Cough, unspecified (principal)
CPT/HCPCS: 71046

== ENCOUNTER → 2023-01-16 | Outpatient (CLI) | payer MEDICARE, SELFPAY ==
--- NOTE | 2023-01-16 12:41 | AVDS_ITS ---
Reason For Study: LUE Swelling Left Velocities Inflow, 191.3/89.2 cm/sec. Inflow, 235.6 ml/min. Prox anast, 494.8/276.8 cm/sec. Prox anast, 1449 ml/min. Prox graft, 368.4/191.8 cm/sec. Prox graft, 2721 ml/min. Mid graft, 261.5/131.5 cm/sec. Mid graft, 2032 ml/min. Distal graft, 197.7/101.8 cm/sec. Distal graft, 1873 ml/min. Outflow, 76.9/37.6 cm/sec. Outflow, 393.7 ml/min. VL/AV Fistula/Dialysis Graft Scan Interpretation Summary Left radial cephalic hemodialysis fistula anastomosis is 0.42 cm diameter. At the anastomosis there is 1449 mL/min volume flow Proximal fistula 2721 millimeters per minute volume flow Mid fistula 2032 mm/min volume flow Distal fistula 1873 mm/min flow Within the mid biceps there appears to be a focal area of narrowing with dimini shed volume flow to 393 mm/min however more proximally in the arm the flow rate increases back to 1 405 mm/min Generally this appears to be a very high flow hemodialysis fistula. There is se emingly 1 area in the outflow proximal left upper arm where there appears to be a focal area of steno sis and lower flow rate. Consider fistulogram Ordering Physician: Sarah Waggoner Referring Physician: Johann Jimenez Performed By: Den Toribio RVT
== END | disposition home or self-care (01) ==
LOC: CVS 12:40
PROVIDERS: PCP Family Medicine; Referring Provider Physician Assistant; Visit Provider Physician Assistant
DX: T82.898A Other specified complication of vascular prosthetic devices, implants and grafts, initial encounter (principal)
CPT/HCPCS: 93990

== ENCOUNTER 2023-01-27 10:33 | Day surgery (SDC) | payer MEDICARE, SELFPAY ==
[2023-01-26 07:04] VITALS: BMI 34.7
[2023-01-27 10:51] LABS: Hematocrit 30.7 % (37-47); Mean Corp Hgb Conc 32.6 g/dL (32-36); Mean Corpuscular Hgb 30.3 pg (27.0-32.0); Mean Platelet Vol. 10.9 fl (6.2-12.0); Platelet Count 148 K/mm3 (150-450); RBC Distribution Width CV 14.3 % (11.6-14.6); RBC Distribution Width SD 48.7 fl (35.1-43.9); White Blood Count 6.2 K/mm3 (4.4-11.0)
--- NOTE | 2023-01-27 11:05 | HP.PCM_ITS ---
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 Accompanied by: Son Is patient in pain?: No Allergies atorvastatin [From Lipitor] Adverse Reaction (Severe, Verified 01/07/23 13:06) Vomitingoxycodone HCl [From Percocet] Adverse Reaction (Severe, Verified 01/07/23 13:06) Vomiting Medications duloxetine 60 mg capsule,delayed release 60 mg PO QHS depression 11/26/12 [History Confirmed 01/07/23] insulin regular hum U-500 conc 500 unit/mL subcutaneous soln 2.2 units subcut CONT insulin pump 10/02/15 [History Confirmed 01/07/23] trazodone 100 mg tablet 150 mg PO QHS sleep 12/27/15 [History Confirmed 01/07/23] ergocalciferol (vitamin D2) 1,250 mcg (50,000 unit) capsule 50,000 unit PO MOWEFR supplement 01/24/16 [History Confirmed 01/07/23] ferrous sulfate 325 mg (65 mg iron) tablet 325 mg PO TIDCM anemia 01/24/16 [History Confirmed 01/07/23] albuterol sulfate 2.5 mg/3 mL (0.083 %) solution for nebulization 2.5 mg inhalation Q4H PRN PRN Wheezing 06/09/16 [History Confirmed 01/07/23] gabapentin 800 mg tablet 800 mg PO TID neuropathy 05/19/17 [History Confirmed 01/07/23] rosuvastatin 10 mg tablet 20 mg PO QHS cholesterol 06/03/17 [History Confirmed 01/07/23] insulin aspart U-100 100 unit/mL (3 mL) subcutaneous pen See Protocol subcut ACHS diabetes 07/30/18 [History Confirmed 01/07/23] magnesium oxide 400 mg (241.3 mg magnesium) tablet 400 mg PO DAILYCM supplement 07/30/18 [History Confirmed 01/07/23] hydroxyzine pamoate 50 mg capsule 50 mg PO TID PRN Anxiety 02/20/20 [History Confirmed 01/07/23] duloxetine 30 mg capsule,delayed release 30 mg PO DAILY depression 05/09/20 [History Confirmed 01/07/23] fenofibrate 160 mg tablet 43 mg PO DAILY 05/29/20 [History Confirmed 01/07/23] omeprazole 20 mg capsule,delayed release 40 mg PO DAILY 07/18/21 [History Confirmed 01/07/23] ondansetron 4 mg disintegrating tablet 8 mg PO Q8H PRN PRN Nausea 09/03/21 [History Confirmed 01/07/23] metoprolol tartrate 25 mg tablet 100 mg PO BID 05/14/22 [History Confirmed 01/07/23] epoetin regan-epbx 20,000 unit/2 mL injection solution (Retacrit) 20,000 unit subcut ONCE 07/30/22 [History Confirmed 01/07/23] diphenoxylate-atropine 2.5 mg-0.025 mg tablet (Lomotil) 1 tab PO BID PRN diarrhea #180 tabs 08/04/22 [Rx Confirmed 01/07/23] hyoscyamine sulfate 0.125 mg tablet 0.125 mg PO BID-QID PRN abdominal pain #360 tabs 08/04/22 [Rx Confirmed 01/07/23] risankizumab-rzaa 360 mg/2.4 mL (150 mg/mL) subcut wearable injector (Skyrizi) 360 mg (2.4 mL) subcut .COMPLEX #2.4 mL 08/04/22 [Rx Confirmed 01/07/23] ursodiol 300 mg capsule 300 mg PO BID LIVER #180 caps 08/04/22 [Rx Confirmed 01/07/23] amlodipine 5 mg tablet 5 mg PO DAILY #30 tabs 08/22/22 [Rx Confirmed 01/07/23] apixaban 5 mg tablet (Eliquis) 5 mg PO BID #60 tabs 10/14/22 [Rx Confirmed 01/07/23] mesalamine 500 mg capsule,extended release (Pentasa) 1,000 mg (2 x 500 mg) PO BID Crohn's #360 caps 11/03/22 [Rx Confirmed 01/07/23] benzonatate 200 mg capsule 200 mg PO TID PRN cough #20 caps 12/16/22 [Rx Confirmed 01/07/23] PFSH Medical History Abnormal CT scan, liver Acute bronchitis, unspecified Acute kidney injury Alternating constipation and diarrhea Anemia of chronic disease Anxiety Arthritis Asthma Below-knee amputation of left lower extremity Cardiology follow-up encounter Cellulitis of left foot Cellulitis of right foot Chronic kidney disease CKD (chronic kidney disease) COPD (chronic obstructive pulmonary disease) COVID-19 virus detected CPAP (continuous positive airway pressure) dependence Depression Diabetes Diabetes mellitus Diastolic dysfunction Dietary restriction DVT (deep venous thrombosis) Fatty liver GERD (gastroesophageal reflux disease) High cholesterol History of below-knee amputation of left lower extremity History of Crohn's disease History of echocardiogram History of hiatal hernia History of Holter monitoring History of MRSA infection History of stress test History of stroke Hx of pancreatitis Hypertension Hypomagnesemia IBS (irritable bowel syndrome) Infection of right great toe due to methicillin resistant Staphylococcus aureus (MRSA) Insulin dependent diabetes mellitus Iron (Fe) deficiency anemia Iron deficiency Lymphadenopathy, inguinal HINTON (nonalcoholic steatohepatitis) Nausea and vomiting Non-smoker Open wound Osteomyelitis of right foot Peripheral neuropathy Pulmonary hypertension Right middle lobe pneumonia Seasonal allergies Seizures Shortness of breath on exertion SLE (systemic lupus erythematosus) Sleep apnea TIA (transient ischemic attack) Uses prosthesis Uses wheelchair Wears glasses Surgical History History of amputation of hallux History of carpal tunnel surgery History of cholecystectomy History of eye surgery History of hernia repair History of hysterectomy History of lithotripsy History of liver biopsy History of lymph node biopsy History of temporal artery biopsy History of tubal ligation Partial nontraumatic amputation of right foot S/P arteriovenous (AV) fistula creation S/P arteriovenous (AV) fistula repair Status post transmetatarsal amputation of right foot Family History Mother HypertensionGrandmother Hypertension Diabetes Social History Smoking Status: Never smoker alcohol intake: current HPI HPI HPI: Patient is a 52 y/o F I am seeing for bleeding at dialysis access sites and left forearm swelling. Patient has a left forearm radial to cephalic arteriovenous hemodialysis fistula created by Dr. Summers on 06/20/22. Patient notes she has recently switched to home hemo-dialysis 5 days per week. Patient notes within the last 2-3 days she has noticed numbness/tingling of the finger tips and hand. She notes for at least 2 weeks she has been having left forearm swelling at the access sites. Patient notes she has had one treatment where she had to hold pressure for 30 minutes prior to the bleeding to stop. Patient notes the dialysis center has created button holes for easier access. She denies the fistula being infiltrated. Patient notes her is assisting with dialysis treatment. Patient's last invention was on 09/17/22 which demonstrated a well maturing left forearm radiocephalic fistula with good cephalic and basilic vein outflow. No stenosis was found. Exam Extrem Other: Left forearm AV fistula- good pulse, bruit and thrill. There appears to be a slight amount of swelling at the inferior button hole. This appears to be a previous infiltration site. Bilateral hands feel equal in temperature. Assessment and Plan Assessment and Plan (1) Problem with dialysis access: Status: Acute Qualifiers: Encounter type: initial encounter Qualified Code(s): T82.898A - Other specified complication of vascular prosthetic devices, implants and grafts, initial encounter Plan: Patient's left forearm fistula appears to be functioning well based off of examination today. At this time, I would not recommend a repeat fistulogram. I would recommend a least invasive exam and have the patient scheduled for a fistula duplex to evaluate for any potential narrowing that may not have been found during examination today. If the testing would demonstrate a narrowed a hilario, we can then pursue a left forearm fistulogram. If the patient's fistula duplex does not show any stenosis, no further intervention would be recommended for the fistula. I have also discussed with the patient reaching back out to the dialysis center to see if a tech can come back out and monitor technique or potential recommendations when inserting and removing the needles or potential positioning of the extremity to see if this will assist with numbness/tingling of the hand and fingertips. Patient has had the opportunity to ask and have questions answered. Patient verbally understands and agrees with the plan. Orders: Orders AV Fistula/Dialysis Graft Scan Today T82.898A - Other specified complication of vascular prosthetic devices, implants and grafts, initial encounter I have examined the patient and the H&P has been reviewed. There are no clinical changes since date of exam. Ariel Summers M.D., F.A.C.S.
[2023-01-27 11:13] LABS: Anion Gap 2 (5-15); BUN 33 mg/dL (7-18); BUN/Creat Ratio 10.2 RATIO (10-20); Calcium,Total 9.3 mg/dL (8.5-10.1); Chloride 103 mmol/L (98-107); Creatinine, Serum 3.23 mg/dL (0.55-1.02); EST Glomerular Filtration Rate 16 mL/min (>60); Est Glom Filt Rate - Afr Amer 19 mL/min (>60); Estimated Creatinine Clearance 19.29 ml/min; Glucose 182 mg/dL (74-106); Potassium 3.5 mmol/L (3.5-5.1); Sodium Level 140 mmol/L (136-145)
--- NOTE | 2023-01-27 12:29 | OP.PCM_ITS ---
Report of Operation Date of Procedure: 01/27/23 Pre-Operative Diagnosis: Increased bleeding left forearm radiocephalic arteriov enous hemodialysis fistula Post-Operative Diagnosis: Left upper arm outflow cephalic vein venous stenosis x 3 locations Surgery/Procedure Performed:: Left upper extremity fistulogram with 6 x 2 conquest angioplasty x 3 of the cephalic vein of the upper arm Description of Surgical Findings:: Timeout informed consent was obtained. 52-year-old female was taken to the special procedures lab placed on the table left lower extremity sterilely prepped draped usual received 50 mcg of fentanyl and 2 mg of Versed is in travenous sedation ultrasound was used to identify the cephalic vein closer to the anastomosis which on ultrasound appeared to be widely patent 2% lidocaine was instilled micropuncture needle inserted antegrade micropuncture wire 6 [place] short sheath dilator was inserted using Isovue contrast a fistulogram was taken of the forearm upper arm and chest outflow area. The most dramatic thing is that there is significant amount of collateralization particularly involving the upper arm. The cephalic vein in the forearm appears to be nicely matured it bifurcates at the antecubital space and then the basilic vein rapidly occludes with then collateralization flow centrally and the cephalic vein of the upper arm has 3 different areas of stenosis 1 at the antecubital space 1 in the mid biceps area of high-grade 90+ percent stenosis and 1 at the outflow of the cephalic arch just adjacent to the axillary vein at 90% stenosis. I was able to get a Glidewire to go past these 3 areas of the cephalic vein used a 6 x 2 conquest balloon and balloon angioplasty of all 3 areas were performed for up to 3 minutes at a time. 30 mmHg pressure utilized. She tolerated procedure well completion views demonstrated improvement in flow. There was a better palpable thrill. Sheath was removed few suture of 4-0 nylon x 2 were placed hemostasis was intact. The patient had some mild nausea at the completion no apparent complication she received 4 mg of Zofran IV Images demonstrate a left forearm radiocephalic arteriovenous fistula that is widely patent in the forearm branches at the antecubital space the cephalic branch then has an area of about 50% stenosis in the mid biceps area there is area of 90% stenosis and at the cephalic arch outflow there is a 90% area of stenosis the basilic vein itself occludes shortly after its origin at the antecubital space. There is extensive collateral flow then centrally where the basilic vein is seen in the proximal upper arm. Subsequent to the angioplasty of the cephalic vein appears to have improved flow. Ariel Summers M.D., F.A.C.S. Surgeon: Ariel Summers Type of Anesthesia: IV Sedation and Local
== END 2023-01-27 13:15 | disposition home or self-care (01) ==
LOC: CLSP 10:35
PROVIDERS: PCP Family Medicine; Referring Provider Surgery; Visit Provider Surgery
DX: T82.898A Other specified complication of vascular prosthetic devices, implants and grafts, initial encounter (principal); J44.9 Chronic obstructive pulmonary disease, unspecified; E11.22 Type 2 diabetes mellitus with diabetic chronic kidney disease; E11.42 Type 2 diabetes mellitus with diabetic polyneuropathy; Z79.4 Long term (current) use of insulin; E78.00 Pure hypercholesterolemia, unspecified; N18.9 Chronic kidney disease, unspecified; I12.9 Hypertensive chronic kidney disease with stage 1 through stage 4 chronic kidney disease, or unspecified chronic kidney disease; G47.30 Sleep apnea, unspecified; Z79.899 Other long term (current) drug therapy; Z79.01 Long term (current) use of anticoagulants; Z86.16 Personal history of COVID-19; Z86.718 Personal history of other venous thrombosis and embolism; Z86.73 Personal history of transient ischemic attack (TIA), and cerebral infarction without residual deficits; Z96.41 Presence of insulin pump (external) (internal); X58.XXXA Exposure to other specified factors, initial encounter
CPT/HCPCS: 36415; 36902; 36907; 76937; 80048; 85027; 99152; 99153; Q9967; C1769; J2405

== ENCOUNTER 2023-01-29 12:00 | Emergency (ER) | payer MEDICARE, SELFPAY ==
[2023-01-29 12:01] VITALS: BP 131/65; PULSE 83; RESP 14; TEMP 36.2; O2SAT 94; BMI 35.0
--- NOTE | 2023-01-29 12:15 | EX.ED.UPPERE ---
HPI History of Present Illness Chief Complaint: Upper Extremity Injury Detail of Chief Complaint: Right shoulder pain Informant: patient Narrative Narrative: Patient presents the emergency department complaint of right shoulder pain that she has had for the last 2 days. Patient is unsure if she just turned awkwardly during her procedure for her fistulogram on her left arm that was done 2 days ago. Last night she had a hard time lifting her arm up and using a knife to cut her food. Pain worse with certain movements. She has not had any injury or trauma. She has not had fevers or chills or sweats. Patient is right-hand dominant. [facility] Medical History Abnormal CT scan, liver Acute bronchitis, unspecified Acute kidney injury Alternating constipation and diarrhea Anemia of chronic disease Anxiety Arthritis Asthma Below-knee amputation of left lower extremity Cardiology follow-up encounter Cellulitis of left foot Cellulitis of right foot Chronic kidney disease CKD (chronic kidney disease) COPD (chronic obstructive pulmonary disease) COVID-19 virus detected CPAP (continuous positive airway pressure) dependence Depression Diabetes Diabetes mellitus Diastolic dysfunction Dietary restriction DVT (deep venous thrombosis) Fatty liver GERD (gastroesophageal reflux disease) High cholesterol History of below-knee amputation of left lower extremity History of Crohn's disease History of echocardiogram History of hiatal hernia History of Holter monitoring History of MRSA infection History of stress test History of stroke Hx of pancreatitis Hypertension Hypomagnesemia IBS (irritable bowel syndrome) Infection of right great toe due to methicillin resistant Staphylococcus aureus (MRSA) Insulin dependent diabetes mellitus Iron (Fe) deficiency anemia Iron deficiency Lymphadenopathy, inguinal HINTON (nonalcoholic steatohepatitis) Nausea and vomiting Non-smoker Open wound Osteomyelitis of right foot Peripheral neuropathy Pulmonary hypertension Right middle lobe pneumonia Seasonal allergies Seizures Shortness of breath on exertion SLE (systemic lupus erythematosus) Sleep apnea TIA (transient ischemic attack) Uses prosthesis Uses wheelchair Wears glasses Home Medications duloxetine 60 mg capsule,delayed release 60 mg PO QHS depression 11/26/12 [History Last Taken 01/19/17] insulin regular hum U-500 conc 500 unit/mL subcutaneous soln 2.2 units subcut CONT insulin pump 10/02/15 [History Last Taken 01/19/17] trazodone 100 mg tablet 150 mg PO QHS sleep 12/27/15 [History Last Taken 01/18/17] ergocalciferol (vitamin D2) 1,250 mcg (50,000 unit) capsule 50,000 unit PO MOWEFR supplement 01/24/16 [History Last Taken 01/19/17] ferrous sulfate 325 mg (65 mg iron) tablet 325 mg PO TIDCM anemia 01/24/16 [History Last Taken 01/19/17] albuterol sulfate 2.5 mg/3 mL (0.083 %) solution for nebulization 2.5 mg inhalation Q4H PRN PRN Wheezing 06/09/16 [History Last Taken 09/01/16] gabapentin 800 mg tablet 800 mg PO TID neuropathy 05/19/17 [History Last Taken Unknown] rosuvastatin 10 mg tablet 20 mg PO QHS cholesterol 06/03/17 [History Last Taken Unknown] insulin aspart U-100 100 unit/mL (3 mL) subcutaneous pen See Protocol subcut ACHS diabetes 07/30/18 [History Last Taken Unknown] magnesium oxide 400 mg (241.3 mg magnesium) tablet 400 mg PO DAILYCM supplement 07/30/18 [History Last Taken Unknown] hydroxyzine pamoate 50 mg capsule 50 mg PO TID PRN Anxiety 02/20/20 [History Last Taken Unknown] duloxetine 30 mg capsule,delayed release 30 mg PO DAILY depression 05/09/20 [History Last Taken Unknown] fenofibrate 160 mg tablet 43 mg PO DAILY 05/29/20 [History Last Taken Unknown] omeprazole 20 mg capsule,delayed release 40 mg PO DAILY 07/18/21 [History Last Taken 06/20/22] ondansetron 4 mg disintegrating tablet 8 mg PO Q8H PRN PRN Nausea 09/03/21 [History Last Taken Unknown] metoprolol tartrate 25 mg tablet 100 mg PO BID 05/14/22 [History Last Taken 01/27/23] epoetin regan-epbx 20,000 unit/2 mL injection solution (Retacrit) 20,000 unit subcut ONCE 07/30/22 [History Last Taken Unknown] diphenoxylate-atropine 2.5 mg-0.025 mg tablet (Lomotil) 1 tab PO BID PRN diarrhea #180 tabs 08/04/22 [Rx Last Taken Unknown] hyoscyamine sulfate 0.125 mg tablet 0.125 mg PO BID-QID PRN abdominal pain #360 tabs 08/04/22 [Rx Last Taken Unknown] risankizumab-rzaa 360 mg/2.4 mL (150 mg/mL) subcut wearable injector (Skyrizi) 360 mg (2.4 mL) subcut .COMPLEX #2.4 mL 08/04/22 [Rx Last Taken Unknown] ursodiol 300 mg capsule 300 mg PO BID LIVER #180 caps 08/04/22 [Rx Last Taken Unknown] amlodipine 5 mg tablet 5 mg PO DAILY #30 tabs 08/22/22 [Rx Last Taken 01/27/23] apixaban 5 mg tablet (Eliquis) 5 mg PO BID #60 tabs 10/14/22 [Rx Last Taken 01/24/23] mesalamine 500 mg capsule,extended release (Pentasa) 1,000 mg (2 x 500 mg) PO BID Crohn's #360 caps 11/03/22 [Rx Last Taken Unknown] benzonatate 200 mg capsule 200 mg PO TID PRN cough #20 caps 12/16/22 [Rx Last Taken Unknown] hydrocodone-acetaminophen 5-325mg 5mg-325mg 1 tab PO Q4H PRN PRN Pain 2 days #10 TABLETS 01/29/23 [Rx Last Taken Unknown] Allergy/AdvReac Type Severity Reaction Status Date / Time atorvastatin [From Lipitor] AdvReac Severe Vomiting Verified 01/29/23 12:01 oxycodone HCl [From Percocet] AdvReac Severe Vomiting Verified 01/29/23 12:01 Family History Mother Hypertension Grandmother Hypertension Diabetes Surgical History History of amputation of hallux History of carpal tunnel surgery History of cholecystectomy History of eye surgery History of hernia repair History of hysterectomy History of lithotripsy History of liver biopsy History of lymph node biopsy History of temporal artery biopsy History of tubal ligation Partial nontraumatic amputation of right foot S/P arteriovenous (AV) fistula creation S/P arteriovenous (AV) fistula repair Status post transmetatarsal amputation of right foot Social History Smoking Status: Never smoker alcohol intake: current ROS ROS ED Review of Systems ROS Unobtainable: other Constitutional Constitutional ED: Reports lethargy; Denies chills, fever(s), sweats or weight loss Eyes Eyes: Denies blurry vision, change in vision or diplopia ENT ENT ED: Denies rhinorrhea or sore throat Cardiovascular Cardiovascular: Denies chest pain, orthopnea or racing heartbeat Respiratory/Chest Respiratory/Chest: Denies cough, dyspnea, dyspnea on exertion, orthopnea or sputum Gastrointestinal Gastrointestinal: Denies abdominal pain, diarrhea, nausea or vomiting Genitourinary Genitourinary ED: Denies dysuria, hematuria or urinary frequency Musculoskeletal Musculoskeletal: Reports other Details: Right shoulder pain ; Denies arthralgias, back pain, myalgias or neck pain Integumentary Denies abscess, Abrasions or rash Neurologic Neurologic: Denies headache(s) or weakness Psychiatric Psychiatric: Denies anxiety, depression or suicidal thoughts Endocrine Endocrinology: Denies polydipsia, polyphagia or polyuria Hematologic/Lymphatic Hematologic/Lymphatic: Denies easy bleeding, easy bruising or lymphadenopathy Allergic/Immunologic Allergic/Immunologic ED: Denies mouth swelling, tongue swelling or urticaria EXAM Physical Exam Const Vital Signs: 01/29/23 12:01 Temperature 97.2 F L Temperature Source Temporal Pulse Rate 83 Respiratory Rate 14 Blood Pressure 131/65 H Blood Pressure Mean 87 Pulse Ox 94 Oxygen Delivery Method Room Air Positive well nourished and well developed General Appearance ED: well developed and NAD HEENT Reports TM's clear and moist mucous membranes normocephalic and atraumatic; Negative for trauma or tenderness Tympanic Membrane ED: Yes TM's clear Eyes PERRL and EOMs intact bilaterally General Eye ED: Negative for pale conjunctiva or scleral icterus Neck no lymphadenopathy, supple and no JVD General: Negative for tenderness Chest Wall inspection of chest normal and palpation of chest normal Chest: Negative for tenderness Resp normal respiratory effort and clear to auscultation bilaterally Effort and Inspection: Negative for respiratory distress or pain with movement Auscultation: Negative for rhonchi, wheezes or diminished lung sounds Cardio regular rate, regular rhythm, S1 normal heart sound, S2 normal heart sound and no murmurs Peripheral Pulses: pulses 2+ throughout GI normal to inspection, nondistended, normoactive bowel sounds, soft to palpation, non-tender, non-distended and no masses Back/Spine no CVA tenderness and no thoracic nor lumbar tenderness Extremity Extremity Narrative: Right shoulder-no erythema or warmth noted. There is no soft tissue swelling. She has limited range of motion secondary to pain. She has tenderness over the bicep tendon and glenohumeral joint diffusely. Neurovascular intact distally. Normal pulses and sensation. No significant swelling. General Extremety ED: Negative for edema General Extremity: Negative for edema Neuro oriented x3, CN's II-XII intact bilaterally, no sensory deficits noted and gait normal Sensorium / Orientation: awake, alert, oriented to person, oriented to place and oriented to time Motor Exam: strength 5/5 throughout and strength abnormal Psych mental status grossly normal Skin no rashes or lesions noted and no wounds MDM MDM MDM Narrative Medical decision making narrative: Patient presents with atraumatic right shoulder pain that is reproducible with palpation. Suspect possibly a tendinitis or bursitis. There is no evidence for infection there is no erythema or warmth. Patient x-rays were unremarkable. She will be given a sling and a prescription for a few [place] for pain. She will be referred to orthopedics for follow-up. Radiography Diagnostic Testin view x-rays of the right shoulder obtained interpreted by myself as no evidence of fracture or dislocation. Radiology in agreement. Discharge Plan Triage Chief Complaint: Upper Extremity Injury ED Provider: Lidya Ordoñez Dx/Rx/DC Orders Clinical Impression: Acute pain of right shoulder Instructions: ED Shoulder Pain, Uncertain Cause Prescriptions: New hydrocodone-acetaminophen [hydrocodone-acetaminophen] 5-325 mg tablet 1 tab PO Q4H PRN PRN (Reason: Pain) 2 Days Qty: 10 0RF No Action fenofibrate 160 mg tablet 43 mg PO DAILY omeprazole 20 mg capsule,delayed release(DR/EC) 40 mg PO DAILY ondansetron 4 mg tablet,disintegrating 8 mg PO Q8H PRN PRN (Reason: Nausea) metoprolol tartrate 25 mg tablet 100 mg PO BID Retacrit 20,000 unit/2 mL solution 20,000 unit subcut ONCE benzonatate 200 mg capsule 200 mg PO TID PRN (Reason: cough) Qty: 20 0RF duloxetine 60 MG capsule 60 mg PO QHS Patient Comments: DEPRESSION AND PAIN CONTROL insulin regular hum U-500 conc 20 ML solution 2.2 units SC CONT Patient Comments: insulin pump Rx Instructions: changed site today 02/19/20 trazodone 100 MG tablet 150 mg PO QHS Patient Comments: SLEEP ferrous sulfate 325 MG tablet 325 mg PO TIDCM Patient Comments: anemia ergocalciferol (vitamin D2) 50,000 UNIT capsule 50,000 unit PO MOWEFR Patient Comments: supplement albuterol sulfate 2.5 MG/3 ML solution for nebulization 2.5 mg INHALATION Q4H PRN PRN (Reason: Wheezing) Patient Comments: shortness of breath gabapentin 800 MG tablet 800 mg PO TID Patient Comments: nerve pain rosuvastatin 10 mg tablet 20 mg PO QHS magnesium oxide 400 MG tablet 400 mg PO DAILYCM insulin aspart U-100 100 UNITS/ML insulin pen See Protocol SC ACHS Protocol: 6. Sliding Scale Insulin Custom Condition: mg/dl range Dose/Route: Number of Units Protocol Text: Custom Sliding Scale Patient Comments: if blood sugar is over 200. calculate reading over 200. divide in half and give that many units of insulin. duloxetine 30 mg capsule,delayed release(DR/EC) 30 mg PO DAILY hydroxyzine pamoate 50 MG capsule 50 mg PO TID PRN (Reason: Anxiety) ursodiol 300 mg capsule 300 mg PO BID Qty: 180 3RF diphenoxylate-atropine [Lomotil] 2.5-0.025 mg tablet 1 tab PO BID PRN (Reason: diarrhea) Qty: 180 3RF hyoscyamine sulfate 0.125 mg tablet 0.125 mg PO BID-QID PRN (Reason: abdominal pain) Qty: 360 3RF Skyrizi 360 mg/2.4 mL (150 mg/mL) wearable injector 360 mg subcut .COMPLEX Qty: 2.4 6RF Rx Instructions: 360 mg subcutaneously every 8 weeks; amlodipine 5 mg tablet 5 mg PO DAILY Qty: 30 11RF Eliquis 5 mg tablet 5 mg PO BID Qty: 60 11RF mesalamine [Pentasa] 500 mg capsule, extended release 1,000 mg PO BID Qty: 360 3RF Primary Care Provider: Johann Jimenez Referrals: Johann Jimenez MD [Primary Care Provider] - Neftali Aguilar DO [Med Staff - Active Staff] - 3-5 Days Disposition Disposition: Home, Self Care Discharge Date/Time: 01/29/23 14:15
--- NOTE | 2023-01-29 12:23 | RAD_ITS ---
STUDY: X-RAY - RIGHT SHOULDER REASON FOR EXAM: Female, 52 years old. Right shoulder pain. TECHNIQUE: 4 view(s) of the shoulder. COMPARISON: None. FINDINGS: Normal glenohumeral articulation. Normal acromioclavicular joint. Normal acromion. Normal humeral head and visualized proximal humerus. The soft tissue structures are unremarkable. Normal visualized pulmonary apex. RAD/Shoulder min 2 Views IMPRESSION: Normal x-ray examination of the shoulder. Electronically Signed: Naun Bethea MD at 12:34 EST ,
[2023-01-29] MEDS: HYDROcodone Bitartrate/Apap 5/325 Tablet PO (14:09)
[2023-01-29 14:14] VITALS: BP 138/72; PULSE 79; RESP 15; O2SAT 98
== END 2023-01-29 14:15 | disposition home or self-care (01) ==
PROVIDERS: Emergency Provider Emergency Medicine; PCP Family Medicine; Visit Provider Emergency Medicine
DX: M25.511 Pain in right shoulder (principal); J44.9 Chronic obstructive pulmonary disease, unspecified; E11.22 Type 2 diabetes mellitus with diabetic chronic kidney disease; E11.40 Type 2 diabetes mellitus with diabetic neuropathy, unspecified; Z79.4 Long term (current) use of insulin; E78.00 Pure hypercholesterolemia, unspecified; I12.9 Hypertensive chronic kidney disease with stage 1 through stage 4 chronic kidney disease, or unspecified chronic kidney disease; N18.9 Chronic kidney disease, unspecified; Z99.89 Dependence on other enabling machines and devices; Z86.73 Personal history of transient ischemic attack (TIA), and cerebral infarction without residual deficits; F32.A Depression, unspecified; Z79.899 Other long term (current) drug therapy; F41.9 Anxiety disorder, unspecified; K21.9 Gastro-esophageal reflux disease without esophagitis; Z86.718 Personal history of other venous thrombosis and embolism; Z79.01 Long term (current) use of anticoagulants; Z90.49 Acquired absence of other specified parts of digestive tract; Z90.710 Acquired absence of both cervix and uterus
CPT/HCPCS: 73030; 99283

== ENCOUNTER 2023-02-04 15:28 | Outpatient (CLI) | payer MEDICARE, SELFPAY ==
[2023-02-04 16:21] LABS: Erythrocyte Sedimentation Rate 36 mm/hr (0-30)
[2023-02-04 16:57] LABS: Thyroid Stim Hormone (TSH) 1.58 uIU/mL (0.358-3.74)
[2023-02-06 05:07] LABS: Alpha Antitrypsin Serum 177 mg/dL (101-187)
[2023-02-08 13:06] LABS: Endomysial Antibody IgA Negative (Negative); Immunoglobulin A 298 mg/dL (87-352); Immunoglobulin E 241 IU/mL (6-495); Immunoglobulin G 1798 mg/dL (586-1602); Immunoglobulin M 138 mg/dL (26-217); t-Transglutaminase IgA <2 U/mL (0-3)
[2023-02-08 21:06] LABS: Beef <0.10 kU/L (Class 0); Chocolate <0.10 kU/L (Class 0); Codfish <0.10 kU/L (Class 0); Corn <0.10 kU/L (Class 0); Egg, Whole 0.19 kU/L (Class 0/I); Milk (Cow) <0.10 kU/L (Class 0); Mussels <0.10 kU/L (Class 0); Peanut 0.55 kU/L (Class I); Pork <0.10 kU/L (Class 0); Salmon <0.10 kU/L (Class 0); Shrimp 0.14 kU/L (Class 0/I); Soybean <0.10 kU/L (Class 0); Tuna <0.10 kU/L (Class 0); Wheat 0.13 kU/L (Class 0/I)
== END 2023-02-04 23:59 | disposition home or self-care (01) ==
LOC: LAB 15:28
PROVIDERS: PCP Family Medicine; Referring Provider Internal Medicine Gastroenterology; Visit Provider Internal Medicine Gastroenterology
DX: R11.10 Vomiting, unspecified (principal); M32.9 Systemic lupus erythematosus, unspecified; K50.90 Crohn's disease, unspecified, without complications; R19.7 Diarrhea, unspecified
CPT/HCPCS: 36415; 82103; 82784; 82785; 83516; 84439; 84443; 84481; 85652; 86003; 86005; 86140; 86255

== ENCOUNTER → 2023-02-13 | Outpatient (CLI) | payer MEDICARE, SELFPAY ==
[2023-02-18 14:08] LABS: Gastrin, Serum 80 pg/mL (0-115)
[2023-02-20 00:07] LABS: Calprotectin, Stool 40 ug/g (0-120)
== END | disposition home or self-care (01) ==
PROVIDERS: PCP Family Medicine; Referring Provider Internal Medicine Gastroenterology; Visit Provider Internal Medicine Gastroenterology
DX: R19.7 Diarrhea, unspecified (principal); K50.90 Crohn's disease, unspecified, without complications; R11.10 Vomiting, unspecified
CPT/HCPCS: 82533; 82941; 83630; 83993; 86316; 87177; 87209; 87329; 87493; 87506

== ENCOUNTER → 2023-03-20 | Outpatient (CLI) | payer MEDICARE, SELFPAY ==
--- OUTSIDE RECORDS SUMMARY | 2023-03-20 15:50 | XMS RPT_ITS | CCD ---
Author Name Unknown Address [address] [place] [address] Organization [facility] Care Team Providers Care Survey Research Analyst Name Role Phone Jina Mckeon Unavailable Jina Mckeon Unavailable AILIN PALACIOS DPM Unavailable Unavailable HORN, AILIN DPM Unavailable Unavailable PHILIP, AILIN DPM Unavailable Unavailable JOHANN PETERS MD Unavailable Unavailable HORN, AILIN DPM Unavailable Unavailable HORN, AILIN DPM Unavailable Unavailable PHILIP, AILIN DPM Unavailable Unavailable JOHANN PETERS MD Unavailable Unavailable HORN, AILIN DPM Unavailable Unavailable PHILIP, AILIN DPM Unavailable Unavailable PHILIP, AILIN DPM Unavailable Unavailable JOHANN PETERS MD Unavailable Unavailable HORN, AILIN DPM Unavailable Unavailable PHILIP, AILIN DPM Unavailable Unavailable PHILIP, AILIN DPM Unavailable Unavailable JOHANN PETERS MD Unavailable Unavailable CONRAD CARO MD Unavailable Unavailable CONRAD CARO MD Unavailable Unavailable CONRAD CARO MD Unavailable Unavailable JOHANN PETERS MD Unavailable Unavailable CONRAD CARO MD Unavailable Unavailable CONRAD CARO MD Unavailable Unavailable CONRAD CARO MD Unavailable Unavailable JOHANN PETERS MD Unavailable Unavailable RUSIA, DEEPAM Unavailable Unavailable RUSIA, DEEPAM Unavailable Unavailable RUSIA, DEEPAM Unavailable Unavailable RUSIA, DEEPAM Unavailable Unavailable Sammie Aaron Attending Unavailable Johann Peters MD Primary Care Provider Ailin Palacios Unavailable Desi Parsons Unavailable Israel Beauchamp MD Unavailable [phone] Anibal Fry MD Unavailable Lorraine MD, Johann A Primary Care Provider Maurice Palaciosle D Unavailable Audrey Parsonsma L Unavailable Israel Beauchamp MD Unavailable Ang KUMAR, Anibal Unavailable Johann Peters MD Primary Care Provider Ailin Palacios D Unavailable Audrey Parsonsma L Unavailable Israel Beauchamp MD Unavailable Ang KUMAR, Anibal Unavailable Johann Peters MD Primary Care Provider Ailin Palacios Unavailable Audrey Parsonsma L Unavailable Israel Beauchamp MD Unavailable Ang KUMAR, Anibal Unavailable PROVIDER, UNKNOWN Attending Unavailable PROVIDER, UNKNOWN Admitting Unavailable LORRAINE JOHANN A Primary Care Unavailable PHILIP AILIN DPM Admitting Unavailable AILIN PALACIOS DPM Attending Unavailable AILIN PALACIOS DPM Primary Care Unavailable JOHANN PETERS MD Consulting Unavailable Israel Beauchamp MD Unavailable Anibal Fry MD Unavailable Philip ROMANO Ailin D Unavailable LORRAINE, JOHANN A Primary Care Unavailable MIGEL WANG Attending Unavailabl e LORRAINE, JOHANN A Primary Care Unavailable LORRAINE, JOHANN A Primary Care Unavailable LORRAINE, JOHANN A Referring Unavailable LORRAINE, JOHANN A Primary Care Unavailable LORRAINE, JOHANN A Attending Unavailable LORRAINE, JOHANN A Primary Care Unavailable MIGEL WANG Referring Unavailabl e MIGEL WANG Attending Unavailabl e LORRAINE, JOHANN A Primary Care Unavailable LORRAINE, JOHANN A Referring Unavailable ROSIE SOMERS Attending Unavailable LORRAINE, JOHANN A Primary Care Unavailable ROSIE SOMERS Referring Unavailable LORRAINE, JOHANN A Primary Care Unavailable ROSIE SOMERS Attending Unavailable LORRAINE, JOHANN A Primary Care Unavailable NANCY CISSE Referring Unavailable LORRAINE, JOHANN A Primary Care Unavailable LORRAINE, JOHANN A Primary Care Unavailable CHANNING ABEBE Attending Unavailable JOHANN PETERS Primary Care Unavailable CHANNING ABEBE Referring Unavailable JOHANN PETERS Primary Care Unavailable Allergies Allergy Classification Reported Allergen(s) Allergy Type Date of Onset Reaction(s) Facility (4 sources) acetaminophen / oxyCODONE; Translations: [PERCOCET] drug [facility]: (4 sources) atorvastatin; Translations: [LIPITOR] drug allergy 6 [facility] and vomit, [facility]: [phone] (1 source) 03/14/17 (+) MRSA WOUND; Translations: [03/14/17 (+) MRSA WOUND] Propensity to adverse reactions (disorder) [facility] Repository (1 source) 04/03/17 (+) MRSA WOUND; Translations: [04/03/17 (+) MRSA WOUND] Propensity to adverse reactions (disorder) [facility] Repository (20 sources) Acetaminophen / oxyCODONE; Translations: [OXYCODONE-ACETAM INOPHEN] Drug Allergy 5 Vomiting [facility] Work Phone: (20 sources) atorvastatin; Translations: [ATORVASTATIN CALCIUM] Drug Allergy 6 GI Upset [facility] Work Phone: (20 sources) Hydroxychloroquin e; Translations: [HYDROXYCHLOROQUI NE SULFATE] Drug Allergy 9 Other: See Comments [facility] Work Phone: [phone] (20 sources) metFORMIN; Translations: [METFORMIN] Drug Allergy 9 Other: See Comments [facility] Work Phone: [phone] (20 sources) Environmental allergies [Other] Propensity to adverse reactions 6 Unknown [facility] Work Phone: [phone] (2 sources) OTHER; Translations: [OTHER] Propensity to adverse reactions (disorder) 6 [facility] Other [place] Repository (1 source) 10/18/17 (+) MRSA WOUND; Translations: [10/18/17 (+) MRSA WOUND] Propensity to adverse reactions (disorder) [facility] Repository (1 source) 08/26/2018 (+) MRSA SCREEN NARES; Translations: [08/26/2018 (+) MRSA SCREEN NARES] Propensity to adverse reactions (disorder) [facility] Repository Medications Current Medications Medication Drug Class(es) Dates Sig (Normalized) Sig (Original) amoxicillin 875 mg / clavulanate 125 mg oral tablet (4 sources) Penicillin-class Antibacterial Start: 03-28-2022 End: 04-07-2022 take 1 tablet by mouth twice daily amoxicillin-clav ulanic acid (AUGMENTIN) 875-125 mg per tablet Take 1 tablet by mouth twice daily for 10 days. 20 tablet 0 03/28/2022 04/07/2022 Active Completed/Discontinued Medications Medication Drug Class(es) Dates Sig (Normalized) Sig (Original) HYDROCODONE-ACETAMI NOPHEN (12 sources) Opioid Agonist Start: 05-21-2016 End: 05-27-2016 NORCO 5-325 MG TABS as directed HYDROCODONE-ACETAMIN OPHEN [id number] Farooq Mann MD Problems Active Problems Problem Classification Problem Date Documented Date Episodic/Chronic Anxiety disorders (20 sources) Generalized anxiety disorder; Translations: [Generalized anxiety disorder] Onset: 8 05-18-2017 Chronic Asthma (17 sources) Uncomplicated mild persistent asthma; Translations: [Mild persistent asthma, uncomplicated] Onset: 5 09-25-2022 Chronic Cardiac dysrhythmias (20 sources) Ventricular premature beats; Translations: [Ventricular premature depolarization] Onset: 2 04-30-2021 Chronic Chronic kidney disease (20 sources) Chronic kidney disease stage 3; Translations: [CKD (chronic kidney disease) stage 3, GFR 30-59 ml/min] Onset: 8 04-30-2021 Chronic Chronic obstructive pulmonary disease and bronchiectasis (1 source) Bronchitis; Translations: [Bronchitis, not specified as acute or chronic] Episodic Coagulation and hemorrhagic disorders (2 sources) Thrombocytopenic disorder; Translations: [Thrombocytopenia, unspecified] Onset: 7 03-06-2016 Chronic Coronary atherosclerosis and other heart disease (4 sources) Angina pectoris; Translations: [Chest pain, unspecified] Onset: 7 05-21-2016 Chronic Diabetes mellitus with complications (20 sources) Neurologic disorder associated with diabetes mellitus; Translations: [Disorder due to type 2 diabetes mellitus] Onset: 3 06-16-2012 Chronic Disorders of lipid metabolism (20 sources) Mixed hyperlipidemia; Translations: [Mixed hyperlipidemia] Onset: 6 02-25-2016 Chronic E Codes: Fall (1 source) Fall; Translations: [Unspecified fall, initial encounter] Episodic Esophageal disorders (20 sources) Gastroesophageal reflux disease without esophagitis; Translations: [Gastro-esophageal reflux disease without esophagitis] Onset: 5 01-31-2015 Chronic Essential hypertension (20 sources) Essential hypertension; Translations: [Essential (primary) hypertension] Onset: 9 07-10-2020 Chronic Genitourinary symptoms and ill-defined conditions (2 sources) Urge incontinence of urine; Translations: [Urge incontinence] Onset: 3 09-25-2022 Chronic Hepatitis (20 sources) Nonalcoholic steatohepatitis; Translations: [Nonalcoholic steatohepatitis ([place])] Onset: 7 04-30-2021 Chronic Infective arthritis and osteomyelitis (except that caused by tuberculosis or sexually transmitted di (6 sources) Other acute osteomyelitis, unspecified ankle and foot; Translations: [Osteomyelitis, unspecified] Onset: 6 03-19-2015 Chronic Lymphadenitis (20 sources) Chronic lymphadenitis; Translations: [Chronic lymphadenitis, except mesenteric] Onset: 6 04-30-2021 Chronic Medical examination/evaluatio n (3 sources) Encounter for other preprocedural examination; Translations: [Encounter for other preprocedural examination] Onset: 8 Episodic Miscellaneous mental health disorders (20 sources) Psychophysiologic insomnia; Translations: [Psychophysiologic insomnia] Onset: 9 06-30-2019 Chronic Mood disorders (20 sources) Major depression in full remission; Translations: [Major depressive disorder, single episode, in full remission] Onset: 5 07-10-2020 Chronic Nutritional deficiencies (20 sources) Vitamin D deficiency; Translations: [Vitamin D deficiency, unspecified] Onset: 5 05-03-2014 Chronic Other aftercare (20 sources) Patient encounter status; Translations: [Other salvage determiner (current) drug therapy] Onset: 9 04-30-2021 Episodic Other and ill-defined heart disease (20 sources) Diastolic dysfunction; Translations: [Other ill-defined heart diseases] Onset: 9 11-18-2018 Chronic Other bone disease and musculoskeletal deformities (20 sources) 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; Translations: [Acquired absence of left leg below knee] Onset: 9 09-14-2018 Chronic Other bone disease and musculoskeletal deformities (20 sources) History of amputation of right foot; Translations: [Acquired absence of right foot] Onset: 9 11-18-2018 Chronic Other circulatory disease (2 sources) Temporal arteritis; Translations: [Other giant cell arteritis] Onset: 7 02-21-2016 Chronic Other diseases of kidney and ureters (20 sources) Hyperparathyroidism due to renal insufficiency; Translations: [Secondary hyperparathyroidism of renal origin] Onset: 3 07-06-2022 Chronic Other eye disorders (1 source) Vitreous hemorrhage, left eye; Translations: [VITREOUS HEMORRHAGE, LEFT EYE] Onset: 8 Chronic Other gastrointestinal disorders (20 sources) Irritable bowel syndrome; Translations: [Irritable bowel syndrome without diarrhea] Onset: 5 01-09-2016 Chronic Other hereditary and degenerative nervous system conditions (20 sources) Essential tremor; Translations: [Essential tremor] Onset: 1 11-26-2020 Chronic Other inflammatory condition of skin (20 sources) Lupus erythematosus; Translations: [Systemic lupus erythematosus, unspecified] Onset: 3 06-16-2012 Chronic Other liver diseases (20 sources) Cirrhosis of liver; Translations: [Unspecified cirrhosis of liver] Onset: 5 04-30-2021 Chronic Other liver diseases (1 source) Unspecified cirrhosis of liver; Translations: [Cirrhosis of liver without ascites, unspecified hepatic cirrhosis type (HCC)] Onset: 2 Chronic Other nervous system disorders (20 sources) Chronic pain syndrome; Translations: [Chronic pain syndrome] Onset: 1 03-06-2020 Chronic Other nutritional; endocrine; and metabolic disorders (4 sources) Body mass index 30+ - obesity; Translations: [Body mass index (BMI) 38.0-38.9, adult] Onset: 7 02-21-2016 Chronic Other nutritional; endocrine; and metabolic disorders (20 sources) Obese class I; Translations: [Obesity, unspecified] Onset: 1 04-30-2021 Chronic Other nutritional; endocrine; and metabolic disorders (20 sources) Hypomagnesemia; Translations: [Hypomagnesemia] Onset: 7 04-30-2021 Chronic Other nutritional; endocrine; and metabolic disorders (1 source) Hypomagnesemia; Translations: [Hypomagnesemia] Onset: 2 Chronic Other upper respiratory disease (20 sources) Allergic rhinitis; Translations: [Allergic rhinitis, unspecified] Onset: 7 04-30-2021 Chronic Pulmonary heart disease (20 sources) Pulmonary hypertension; Translations: [Pulmonary hypertension, unspecified] Onset: 9 05-21-2016 Chronic Regional enteritis and ulcerative colitis (20 sources) Crohn's disease; Translations: [Crohn's disease, unspecified, without complications] Onset: 2 08-21-2021 Chronic Residual codes; unclassified (20 sources) Obstructive sleep apnea syndrome; Translations: [Obstructive sleep apnea (adult) (pediatric)] Onset: 9 05-27-2017 Chronic Skin and subcutaneous tissue infections (5 sources) Abscess of toe; Translations: [Cellulitis of other sites] Onset: 3 06-16-2012 Episodic Spondylosis; intervertebral disc disorders; other back problems (20 sources) Disorder of lumbar disc; Translations: [Other intervertebral disc displacement, lumbar region] Onset: 2 04-30-2021 Chronic Systemic lupus erythematosus and connective tissue disorders (20 sources) Sjogren's syndrome; Translations: [Sicca syndrome, unspecified] Onset: 6 06-30-2019 Chronic Thyroid disorders (20 sources) Thyroid nodule; Translations: [Nontoxic single thyroid nodule] Onset: 2 Chronic Unclassified (2 sources) Unknown / UNK(Unknown) Onset: 8 Unclassified (1 source) 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, left eye; Translations: [TYPE 2 DIAB W PROLIF DIAB RTNOP W TRCTN] Onset: 8 Unclassified (1 source) Persistent cough for 3 weeks or longer; Translations: [Persistent cough for 3 weeks or longer] Onset: 3 Past or Other Problems Problem Classification Problem Date Documented Date Episodic/Chronic Abdominal pain (2 sources) Abdominal pain; Translations: [Unspecified abdominal pain] Onset: 08-15-2013 08-15-2013 Episodic Bacterial infection (4 sources) Methicillin resistant Staphylococcus aureus infection; Translations: [Methicillin susceptible Staphylococcus aureus infection as the cause of diseases classified elsewhere] Onset: 06-16-2012 06-16-2012 Episodic Deficiency and other anemia (20 sources) Iron deficiency anemia; Translations: [Iron deficiency anemia, unspecified] Onset: 07-31-2015 07-31-2015 Episodic Deficiency and other anemia (1 source) Iron deficiency anemia, unspecified; Translations: [Iron deficiency anemia, unspecified iron deficiency anemia type] Onset: 04-16-2020 Episodic Diabetes mellitus without complication (20 sources) Insulin pump present; Translations: [Presence of insulin pump (external) (internal)] Onset: 01-22-2016 01-22-2016 Episodic Genitourinary symptoms and ill-defined conditions (1 source) Proteinuria, unspecified; Translations: [Type 2 diabetes mellitus with proteinuria (HCC)] Onset: 09-25-2022 Episodic Immunizations and screening for infectious disease (18 sources) Vaccination needed; Translations: [Encounter for immunization] Onset: 07-26-2014 09-25-2022 Episodic Lymphadenitis (2 sources) Lymphadenopathy; Translations: [Generalized enlarged lymph nodes] Onset: 08-15-2013 08-15-2013 Episodic Nausea and vomiting (20 sources) Nausea; Translations: [Nausea] Onset: 04-30-2021 04-30-2021 Episodic Nutritional deficiencies (20 sources) Serum vitamin B12 low; Translations: [Deficiency of other specified B group vitamins] Onset: 05-09-2021 Episodic Open wounds of extremities (2 sources) Unspecified open wound, unspecified foot, initial encounter; Translations: [Unspecified open wound, unspecified foot, initial encounter] Onset: 06-24-2012 06-24-2012 Episodic Other aftercare (2 sources) terminal gauger (current) use of insulin; Translations: [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, with long-term current use of insulin, macular edema presence unspecified, unspecified laterality, unspecified proliferative retinopathy* (HCC)] Onset: 09-25-2022 Episodic Other aftercare (1 source) Other longterm (current) drug therapy; Translations: [Medication management] Onset: 09-25-2022 Episodic Other circulatory disease (2 sources) Diastolic dysfunction; Translations: [Heart disease, unspecified] Onset: 05-21-2016 05-21-2016 Episodic Other circulatory disease (15 sources) History of cerebrovascular accident; Translations: [Personal history of transient ischemic attack (TIA), and cerebral infarction without residual deficits] Onset: 09-25-2022 09-25-2022 Episodic Other connective tissue disease (2 sources) Foot pain; Translations: [Pain in left foot] Onset: 07-21-2012 07-21-2012 Episodic Other connective tissue disease (20 sources) Fibromyalgia; Translations: [Fibromyalgia] Onset: 07-26-2014 02-23-2018 Episodic Other connective tissue disease (20 sources) History of giant cell arteritis; Translations: [Personal history of other diseases of the musculoskeletal system and connective tissue] Onset: 02-05-2016 04-30-2021 Episodic Other diseases of kidney and ureters (20 sources) Cyst of kidney; Translations: [Cyst of kidney, acquired] Onset: 07-06-2015 04-16-2020 Episodic Other infections; including parasitic (15 sources) Personal history of other infectious and parasitic diseases; Translations: [History of 2019 novel coronavirus disease (COVID-19)] Onset: 02-21-2020 08-21-2021 Episodic Other lower respiratory disease (2 sources) Cough; Translations: [Cough] Onset: 08-30-2014 08-30-2014 Episodic Other lower respiratory disease (10 sources) Hypoxia; Translations: [Hypoxemia] Onset: 05-03-2014 09-25-2022 Episodic Other nutritional; endocrine; and metabolic disorders (2 sources) Weight loss; Translations: [Abnormal weight loss] Onset: 05-22-2014 05-22-2014 Episodic Other skin disorders (2 sources) Night sweats; Translations: [Generalized hyperhidrosis] Onset: 04-17-2014 04-17-2014 Episodic Residual codes; unclassified (20 sources) Edema of right lower limb; Translations: [Localized edema] Onset: 05-16-2016 04-30-2021 Episodic Retinal detachments; defects; vascular occlusion; and retinopathy (2 sources) Traction detachment of retina, left eye; Translations: [TRACTION DETACHMENT OF RETINA, LEFT EYE] Onset: 04-14-2017 Episodic Spondylosis; intervertebral disc disorders; other back problems (20 sources) Lumbar radiculopathy; Translations: [Radiculopathy, lumbar region] Onset: 12-10-2011 04-30-2021 Episodic Tuberculosis (20 sources) History of inactive tuberculosis; Translations: [H/O: tuberculosis] Onset: 06-07-2014 06-08-2014 Episodic Unclassified (13 sources) Family history of malignant melanoma; Translations: [FH: Diabetes mellitus] Onset: 11-05-2018 08-15-2013 Episodic Unclassified (1 source) VITREOUS HEMORRHAGE LEFT EYE Onset: 04-14-2017 Results Test Name Value Interpretation Reference Range Facil ity Vital Signs Date Time Vital Sign Value Performing Clinician Facility 09-25-2022 14:12-0400 Diastolic blood pressure 50 mm[Hg] Johann Peters MD Work Phone: [facility] 09-25-2022 14:12-0400 Systolic blood pressure 140 mm[Hg] Johann Peters MD Work Phone: [facility] 09-25-2022 13:13-0400 Body height 170.2 cm Johann Peters MD Work Phone: [facility] 09-25-2022 13:13-0400 Body weight 102.06 kg Johann Peters MD Work Phone: [facility] 09-25-2022 13:13-0400 Heart rate 82 /min Johann Peters MD Work Phone: [facility] 04-29-2022 10:26-0400 Body weight 98.43 kg Rosie Somers PA-C Work Phone: [facility] 04-29-2022 10:26-0400 Diastolic blood pressure 82 mm[Hg] Rosie Somers PA-C Work Phone: [facility] 04-29-2022 10:26-0400 Heart rate 71 /min Rosie Somers PA-C Work Phone: [facility] 04-29-2022 10:26-0400 Respiratory rate 16 /min Rosie Somers PA-C Work Phone: [facility] 04-29-2022 10:26-0400 SaO2% (BldA) [Mass fraction] 95 % Rosie Somers PA-C Work Phone: [facility] 04-29-2022 10:26-0400 Systolic blood pressure 136 mm[Hg] Rosie Somers PA-C Work Phone: [facility] 03-28-2022 13:16-0500 Diastolic blood pressure 92 mm[Hg] Rosie Somers PA-C Work Phone: [facility] 03-28-2022 13:16-0500 Systolic blood pressure 170 mm[Hg] Rosie Somers PA-C Work Phone: [facility] 03-28-2022 13:12-0500 Body weight 97.52 kg Rosie Somers PA-C Work Phone: [facility] 03-28-2022 13:12-0500 Heart rate 86 /min Rosie Somers PA-C Work Phone: [facility] 03-28-2022 13:12-0500 SaO2% (BldA) [Mass fraction] 93 % Rosie Somers PA-C Work Phone: [facility] 12-02-2021 10:56-0400 Diastolic blood pressure 82 mm[Hg] Migel Wang MD Work Phone: [facility] 12-02-2021 10:56-0400 Systolic blood pressure 167 mm[Hg] Migel Wang MD Work Phone: [facility] 12-02-2021 10:29-0400 Body height 170.2 cm Migel Wang MD Work Phone: [facility] 12-02-2021 10:29-0400 Body weight 99.16 kg Migel Wang MD Work Phone: [facility] 12-02-2021 10:29-0400 Heart rate 78 /min Migel Wang MD Work Phone: [facility] 12-02-2021 10:29-0400 SaO2% (BldA) [Mass fraction] 94 % Migel Wang MD Work Phone: [facility] 06-20-2021 18:01-0400 Body temperature 99.19 [degF] Lyla Bravo APRN.HOMICIDE SQUAD CAPTAIN Work Phone: [facility] 06-20-2021 18:01-0400 Body weight 97.52 kg Lyla Bravo APRN.HOMICIDE SQUAD CAPTAIN Work Phone: [facility] 06-20-2021 18:01-0400 Diastolic blood pressure 82 mm[Hg] Lyla Bravo APRN.HOMICIDE SQUAD CAPTAIN Work Phone: [facility] 06-20-2021 18:01-0400 Heart rate 83 /min Lyla Bravo APRN.HOMICIDE SQUAD CAPTAIN Work Phone: [facility] 06-20-2021 18:01-0400 Respiratory rate 18 /min Lyla Bravo APRN.HOMICIDE SQUAD CAPTAIN Work Phone: [facility] 06-20-2021 18:01-0400 SaO2% (BldA) [Mass fraction] 96 % Lyla Bravo APRN.HOMICIDE SQUAD CAPTAIN Work Phone: [facility] 06-20-2021 18:01-0400 Systolic blood pressure 142 mm[Hg] Lyla Bravo APRN.HOMICIDE SQUAD CAPTAIN Work Phone: [facility] 08-05-2016 13:33-0400 BMI (Body Mass Index) 37.28 kg/m2 [facility] Work Phone: 08-05-2016 13:33-0400 BP Diastolic 64 mm[Hg] [facility] Work Phone: 08-05-2016 13:33-0400 BP Systolic 110 mm[Hg] [facility] Work Phone: 08-05-2016 13:33-0400 Pulse (Heart Rate) 99 /min [facility] Work Phone: 08-05-2016 13:33-0400 Weight 104.78 kg [facility] Work Phone: 05-27-2016 15:05-0400 Height 167.64 cm [facility] Work Phone: 05-27-2016 15:05-0400 Pulse Oximetry 95 % [facility] Work Phone: 05-27-2016 15:05-0400 Respiratory Rate 16 /min [facility] Work Phone: 03-04-2016 13:43-0500 Body Temperature 96.7 [degF] [facility] Work Phone: 03-04-2016 13:43-0500 BSA (Body Surface Area) 2.11 m2 [facility] Work Phone: 03-04-2016 13:43-0500 Height 167.64 cm [facility] Work Phone: 03-04-2016 13:43-0500 Weight 102.45 kg J[facility] Work Phone: 01-02-2016 10:51-0500 Body Temperature 98.4 [degF] [facility] Work Phone: Encounters Encounter Date Encounter Type Care Provider Facility Start: 02-05-2023 Chart abstracting Johann nation MD Work Phone: [facility] Procedures Date Procedure Procedure Detail Performing Clinician Start: 05-27-2022 End: 05-27-2022 Mammography Johann Peters MD Work Phone: Start: 12-05-2021 soft tissue head & neck real time imge docm Migel Wang MD Work Phone: Start: 12-02-2021 Hemoglobin A1c/Hemoglobin.total in Blood Migel Wang MD Work Phone: Start: 01-22-2021 Colonoscopy Johann nation MD Work Phone: Start: 04-18-2020 Mammography Johann nation MD Work Phone: Start: 06-04-2017 Detachment at Left F oot, Partial 1st Ray, Open Approach AILIN HORN Start: 06-04-2017 Division of Left Low er Leg Tendon, Percutaneous Approach AILIN HORN Start: 04-14-2017 ANESTH VITREORETINAL SURG DEEPAM RUSIA Start: 04-14-2017 LASER TREATMENT OF RETINA DEEPAM RUSIA Start: 04-14-2017 REPLACE EYE FLUID DANISHA M RUSIA Start: 04-14-2017 VIT FOR MACULAR PUCKER DEEPAM RUSIA Start: 08-05-2016 End: 08-05-2016 Follow Up Appt Other Jennifer park PA-C Work Phone: Start: 05-27-2016 End: 05-28-2016 *BMP Farooq Mann MD Start: 05-27-2016 End: 05-28-2016 aPTT Farooq Mann MD Start: 05-27-2016 End: 05-28-2016 CBC W Auto Differential panel - Blood Farooq Mann MD Start: 05-27-2016 End: 05-28-2016 Coagulation factor induced.INR assay in platelet poor plasma Farooq Mann MD Start: 05-27-2016 End: 07-17-2016 Echocardiography Farooq Mann MD Start: 05-27-2016 End: 07-17-2016 Electrocardiogram, complete Farooq walker MD Start: 05-27-2016 End: 05-27-2016 Follow Up Appt 2 months Farooq Mann MD Start: 05-27-2016 End: 07-17-2016 Left & Right Heart Cath Farooq Mann MD Start: 05-27-2016 End: 05-27-2016 MMM Farooq Mann MD Start: 02-20-2016 End: 02-21-2016 *CMP Complete Metabolic Panel Carlos Cole Work Phone: Start: 02-20-2016 End: 02-21-2016 Ferritin Carlos Cole Work Phone: Start: 02-20-2016 End: 02-21-2016 Iron Carlos Cole Work Phone: Start: 02-20-2016 End: 02-21-2016 Iron binding capacity [Mass/volume] in Serum or Plasma Carlos Cole Work Phone: Start: 02-20-2016 End: 02-21-2016 Lactate dehydrogenase (LDH) Gonzalez Juan C Smith mcclure Work Phone: Start: 02-20-2016 End: 02-21-2016 Urate Carlos Cole Work Phone: Start: 12-31-2015 End: 12-31-2015 *CMP Complete Metabolic Panel Carlos Cole Work Phone: Start: 12-31-2015 End: 12-31-2015 Ferritin Carlos Cole Work Phone: Start: 12-31-2015 End: 12-31-2015 Iron and Iron binding capacity panel - Serum or Plasma Carlos Cole Work Phone: Start: 12-31-2015 End: 12-31-2015 Lactate dehydrogenase (LDH) Carlos Gresham A mcclure Work Phone: Start: 09-26-2015 End: 10-04-2015 Biopsy, skin lesion Chema Smith MD Work Phone: Start: 09-25-2015 End: 09-26-2015 Referral to surgeon Carlos Cole Work Phone: Start: 09-21-2015 End: 10-09-2015 *MISC - Miscellaneous Lab Test #1 Carlos Cole Work Phone: Start: 09-21-2015 End: 09-24-2015 Cobalamins (Vitamin B12) Carlos Cole Work Phone: Start: 09-20-2015 End: 09-20-2015 *BMP Carlos Cole Work Phone: Start: 09-20-2015 End: 09-20-2015 Ferritin Carlos Cole Work Phone: Start: 09-20-2015 End: 09-20-2015 Iron Carlos Cole Work Phone: Start: 09-20-2015 End: 09-20-2015 Iron binding capacity [Mass/volume] in Serum or Plasma Carlos Cole Work Phone: Start: 07-19-2015 End: 07-23-2015 *CBC with Differential Carlos Cole Work Phone: Start: 07-05-2015 End: 07-23-2015 *CBC with Differential Carlos Cole Work Phone: Start: 03-19-2015 End: 03-19-2015 *MRSAW, Staph A, DNA, Amp Probe, Wound Tori Carrillo MD Start: 03-19-2015 End: 03-19-2015 Bacterica wound culture Tori Johnson Start: 03-19-2015 End: 03-19-2015 Mri lower extremity w/o dye Tori hernandez MD Start: 08-30-2014 End: 11-20-2014 Chest x-ray Tori Carrillo MD Start: 08-30-2014 End: 08-30-2014 Documentation of current medications Tori Carrillo MD Start: 08-29-2014 End: 08-29-2014 *CBC with Differential Tori Carrillo MD Start: 08-29-2014 End: 08-29-2014 *CMP Complete Metabolic Panel Tori torrez MD Start: 07-24-2014 End: 07-26-2014 *Hepatic Function Panel Tori Gresham D Start: 07-05-2014 End: 07-23-2015 *CBC with Differential Gonzalez M Alam Work Phone: Start: 07-05-2014 End: 07-05-2014 *CMP Complete Metabolic Panel Gonzalez M Alam Work Phone: Start: 07-05-2014 End: 07-05-2014 Lactate dehydrogenase (LDH) Gonzalez Juan C A mcclure Work Phone: Start: 07-05-2014 End: 07-05-2014 Urate Gonzalez M Alam Work Phone: Start: 06-08-2014 End: 10-09-2015 Surgery Referral Tori Carrillo MD Start: 06-07-2014 End: 06-08-2014 Documentation of current medications Tori Carrillo MD Start: 05-22-2014 End: 05-23-2014 Documentation of current medications Tori Carrillo MD Start: 05-22-2014 End: 11-20-2014 Pet image w/ct, full body Tori aCrrillo MD Start: 05-22-2014 End: 11-20-2014 X-ray exam of foot Tori Carrillo MD Start: 05-22-2014 End: 11-20-2014 X-ray exam of lower leg Tori Johnson Start: 05-11-2014 End: 05-18-2014 Mycobacterium tuberculosis tuberculin stimulated gamma interferon [Presence] in Blood Tori Carrillo MD Start: 05-04-2014 End: 07-23-2015 *CBC with Differential Gonzalez M Alam Work Phone: Start: 05-04-2014 End: 05-04-2014 *CMP Complete Metabolic Panel Gonzalez Juan C Alam Work Phone: Start: 05-04-2014 End: 05-04-2014 Lactate dehydrogenase (LDH) Carlos Gresham A mcclure Work Phone: Start: 05-04-2014 End: 05-04-2014 Urate Carlos Gresham Alam Work Phone: Start: 04-24-2014 End: 04-26-2014 *CBC with Differential Tori J Signs Start: 04-24-2014 End: 04-26-2014 C reactive protein (hsCRP) Tori mejia MD Start: 04-24-2014 End: 04-26-2014 Erythrocyte sedimentation rate Tori J Lorena KUMAR Start: 04-24-2014 End: 04-26-2014 X-ray exam of foot Tori Carrillo MD Start: 04-17-2014 End: 05-12-2014 *CBC with Differential Tori J Signs Start: 04-17-2014 End: 05-12-2014 Erythrocyte sedimentation rate Tori J Signs Start: 10-25-2013 End: 07-23-2015 *CBC with Differential Gonzalez M Alam Work Phone: Start: 10-10-2013 End: 10-18-2013 *CBC with Differential Gonzalez M Alam Work Phone: Start: 10-10-2013 End: 10-11-2013 *CMP Complete Metabolic Panel Gonzalez Juan C Alam Work Phone: Start: 10-10-2013 End: 10-11-2013 Lactate dehydrogenase (LDH) Carlos Gresham A mcclure Work Phone: Start: 10-10-2013 End: 10-11-2013 Urate Carlos Gresham Alajuan c Work Phone: Start: 08-09-2012 End: 04-10-2014 C reactive protein (hsCRP) Tori mejia MD Start: 08-09-2012 End: 04-10-2014 CBC W Auto Differential panel - Blood Tori Carrillo MD Start: 08-09-2012 End: 04-10-2014 Erythrocyte sedimentation rate Tori Carrillo MD Start: 07-21-2012 End: 04-10-2014 X-ray exam of foot Tori Carrillo MD Plan of Treatment Date Care Activity Detail Author Start: 06-24-2036 PNEUMOCOCCAL (3 - PP SV23 if available, else PCV20) PNEUMOCOCCAL (3 - PPSV23 if available, else PCV20) [facility] Start: 06-24-2036 PNEUMOCOCCAL (3 - PP SV23 or PCV20) PNEUMOCOCCAL (3 - PPSV23 or PCV20) [facility] Start: 06-24-2036 PNEUMOCOCCAL (4 - PP SV23 if available, else PCV20) PNEUMOCOCCAL (4 - PPSV23 if available, else PCV20) [facility] Start: 06-24-2036 PNEUMOCOCCAL (4 - PP SV23 or PCV20) PNEUMOCOCCAL (4 - PPSV23 or PCV20) [facility] Start: 06-24-2036 Pneumococcal vaccination [facility] Start: 01-22-2031 Colonoscopy COLONOSCOPY [facility] Start: 01-22-2031 COLORECTAL CANCER SCREENING COLORECTAL CANCER SCREENING [facility] Start: 01-22-2031 Screening for malign ant neoplasm of colon [facility] Start: 01-16-2026 Urine microalbumin profile [facility] Start: 09-26-2023 ANNUAL PCP TEAM SLIVER CUTTER JOHN DISEASE VISIT ANNUAL PCP TEAM CHRONIC DISEASE VISIT [facility] Start: 09-26-2023 Complete blood count Hemoglobin/Shakir tocrit [facility] Start: 09-26-2023 Creatinine measurement Serum Creatin ine [facility] Start: 09-26-2023 HEMOGLOBIN/HEMATOCRIT HEMOGLOBIN/HEM ATOCRIT [facility] Start: 09-26-2023 Hepatitis B surface antibody level LDL CHOLESTEROL [facility] Start: 09-26-2023 SERUM CREATININE SERUM CREATININE Cl [facility] Start: 09-26-2023 SHINGRIX VACCINE (1 of 2) SHINGRIX V ACCINE (1 of 2) [facility] Immunizations Immunization Date Immunization Notes Care Provider Robert zuluaga 10-23-2022 hepatitis A and hepatitis B vaccine Nv Nurse Work Phone: [facility] Work Phone: 10-23-2022 measles, mumps and rubella virus vaccine Nv Nurse Work Phone: [facility] Work Phone: 09-25-2022 hepatitis A and hepatitis B vaccine Johann Peters MD Work Phone: [facility] 11-07-2021 influenza virus vacc ine, unspecified formulation Johann Peters MD Work Phone: [facility] 12-03-2020 COVID-19 vaccine, ag e 12+ yr (PFIZER-BIONTECH - PURPLE TOP) Johann Peters MD Work Phone: [facility] 10-29-2020 COVID-19 vaccine, ag e 12+ yr (PFIZER-BIONTECH - PURPLE TOP) Johann Peters MD Work Phone: [facility] 10-27-2020 influenza, injectabl e, quadrivalent, contains preservative Johann Peters MD Work Phone: [facility] 12-27-2019 influenza, injectabl e, quadrivalent, contains preservative Johann Peters MD Work Phone: [facility] 11-23-2019 influenza, seasonal, injectable, preservative free Johann Peters MD Work Phone: [facility] 11-18-2018 influenza, injectabl e, quadrivalent, contains preservative Johann Peters MD Work Phone: [facility] 11-24-2017 influenza virus vacc ine, unspecified formulation Johann Peters MD Work Phone: [facility] Work Phone: 11-16-2017 influenza, seasonal, injectable, preservative free Johann Peters MD Work Phone: [facility] 11-16-2017 pneumococcal polysaccharide vaccine, 23 valdolores Peters MD Work Phone: [facility] 03-03-2017 pneumococcal polysaccharide vaccine, 23 valdolores Peters MD Work Phone: [facility] 11-16-2016 influenza, seasonal, injectable Johann Peters MD Work Phone: [facility] 11-10-2016 influenza, injectabl e, quadrivalent, preservative free Johann Peters MD Work Phone: [facility] 01-17-2016 tetanus toxoid, redu deanne diphtheria toxoid, and acellular pertussis vaccine, adsorbed Johann Peters MD Work Phone: [facility] Work Phone: 11-14-2015 influenza, seasonal, injectable Johann Peters MD Work Phone: [facility] 11-14-2015 influenza, seasonal, injectable, preservative free Johann Peters MD Work Phone: [facility] 11-07-2015 influenza, injectabl e, quadrivalent, preservative free Johann Peters MD Work Phone: [facility] 04-19-2015 pneumococcal polysaccharide vaccine, 23 valdolores Peters MD Work Phone: [facility] 01-31-2015 pneumococcal conjuga te vaccine, 13 valent Johann Peters MD Work Phone: [facility] Work Phone: 11-27-2014 influenza virus vacc ine, unspecified formulation Johann Peters MD Work Phone: [facility] Work Phone: 11-16-2014 influenza, seasonal, injectable Johann Peters MD Work Phone: [facility] 11-16-2014 influenza, seasonal, injectable, preservative free Johann Peters MD Work Phone: [facility] 11-14-2013 influenza, seasonal, injectable Johann Peters MD Work Phone: [facility] 11-14-2013 influenza, seasonal, injectable, preservative free Johann Peters MD Work Phone: [facility] 10-17-2012 influenza, seasonal, injectable, preservative free Johann Peters MD Work Phone: [facility] 12-17-2009 pneumococcal polysaccharide vaccine, 23 valent Johann Peters MD Work Phone: [facility] Work Phone: 10-17-2009 pneumococcal polysaccharide vaccine, 23 valdolores Peters MD Work Phone: [facility] 11-18-2008 influenza virus vacc ine, unspecified formulation Johann Peters MD Work Phone: [facility] Work Phone: 12-15-2005 influenza virus vacc ine, unspecified formulation Johann Peters MD Work Phone: [facility] Work Phone: 12-12-2004 pneumococcal polysaccharide vaccine, 23 valdolores Peters MD Work Phone: [facility] Work Phone: 07-17-2004 tetanus and diphther ia toxoids, not adsorbed, for adult use Johann Peters MD Work Phone: [facility] Work Phone: Payers Date Payer Category Payer Medicare [id number] 2022 Medicare [id number] 2021 Unknown [facility] ANTHEM MEDIBLUE ACCESS [id number] 2021-Present [phone] [address] [place] [address] PPO [id number] 2021 Unknown [id number] 2020 Unknown MMO MMO [employer]US [id number] 2020-Present [phone] [address] [place] [address] PPO [id number] 2020 Unknown [id number] 2017 [facility] [id number] 1971 Unknown [id number] 1971 Unknown [id number] Medicare [id number] Medicare [id number] Unknown [id number] Social History Date Type Detail Facility Start: 04-23-2012 End: 12-02-2021 Tobacco smoking status NHIS Never smoked tobacco [facility] Work Phone: Start: 05-09-2021 End: 01-12-2023 Alcohol intake Current drinker of alcohol (finding) [facility] Start: 03-04-2020 End: 03-09-2022 History SDOH Alcohol Frequency 2 [facility] Start: 03-04-2020 End: 03-09-2022 History SDOH Alcohol Std Drinks 1 [facility] Start: 09-02-2016 History SDOH Alcohol Comment occasional [facility] Start: 03-04-2020 End: 03-09-2022 History SDOH Social Connections Phone 5 [facility] Start: 03-04-2020 End: 03-09-2022 History SDOH Social Connections [employer] 3 [facility] Start: 03-04-2020 End: 03-09-2022 History SDOH Physical Activity DPW 0 [facility] Start: 03-04-2020 End: 03-09-2022 History SDOH Financial 4 [facility] Start: 03-04-2020 Education 12 [facility] Start: 04-23-2012 End: 12-02-2021 Tobacco Comment No smokers in current home. 2 smokers in childhood home. [facility] Start: 1970 Sex Assigned At Not on file [facility] Start: 04-20-2021 End: 12-26-2021 Exposure to SARS-CoV-2 (event) Not sure [facility] Start: 04-23-2012 End: 12-02-2021 Tobacco use and exposure Smokeless tobacco non-user [facility] Work Phone: Start: 03-09-2022 End: 09-25-2022 History of Social function [facility] Start: 03-09-2022 End: 09-25-2022 Social connection and isolation panel [facility] Do you belong to any clubs or organizations such as religious groups, unions, [employer] or athletic groups, or school groups? Yes [facility] Are you now , , , , never or living with a partner? [facility] How often to you hav e a drink containing alcohol? Never [facility] How many standard dr inks containing alcohol do you have on a typical day? Patient does not drink [facility] How hard is it for y ou to pay for the very basics like food, housing, medical care, and heating Somewhat hard [facility] Do you feel stress - tense, restless, nervous, or anxious, or unable to sleep at night because your mind is troubled all the time - these days [OSQ] Not at all [facility] (I/We) worried whecolin er (my/our) food would run out before (I/we) got money to buy more. Never true [facility] In the past 12 month s, was there a time when you were not able to pay the mortgage or rent on time? No [facility] Medical Equipment Procedure Code Equipment Code Equipment Origin al Text Equipment Identifier Dates Inlay Schulter Stent [id number] Start: 06-28-2010 Bard Inlay Optim a Ureteral Stent [id number] Start: 07-05-2010 Goals Date Patient Goal Desired Activity /State Personal health goal Personal health goal Clinical Notes 07-08-2020 to 03-06-2023 Gem Guerrero LPN - 02/05/2023 8:47 AM Eli Lopez LPN - 01/28/2023 11:59 AM Eli Lopez LPN - 01/21/2023 11:15 AM Migel Marcial MD - 12/03/2022 7:30 AM EDT Note Date & Type Note Facility 03-06-2023 Note HNO ID: [id number] Author: GEM GUERRERO LPN Service: ? Author Type: LICENSED NURSE Type: Progress Notes Filed: 03/06/2023 10:02 Note Text: Scan on 03/06/2023 9:09 AM by Vinod De Leon PA-C: Miscellaneous Lab [facility] 02-27-2023 Note HNO ID: [id number] Author: GEM GUERRERO LPN Service: ? Author Type: LICENSED NURSE Type: Progress Notes Filed: 02/27/2023 13:28 Note Text: Scan on 02/27/2023 10:09 AM by Vinod De Leon PA-C: Consultation - Pulmonary [facility] 02-24-2023 Note HNO ID: [id number] Author: GEM GUERRERO LPN Service: ? Author Type: LICENSED NURSE Type: Progress Notes Filed: 02/24/2023 23:03 Note Text: Scan on 02/23/2023 6:35 PM by Vinod De Leon PA-C: Microbiology [facility] 02-20-2023 Note HNO ID: [id number] Author: GEM GUERRERO LPN Service: ? Author Type: LICENSED NURSE Type: Progress Notes Filed: 02/20/2023 19:01 Note Text: Scan on 02/20/2023 12:34 AM by Vinod De Leon PA-C: Miscellaneous Lab [facility] 02-18-2023 Note HNO ID: [id number] Author: Summer Bravo MA Service: ? Author Type: Basket Hand Weaver Type: Progress Notes Filed: 02/18/2023 9:01 AM Note Text: Scan on 02/12/2023 11:15 AM by Vinod De Leon PA-C: X-ray Scan on 02/12/2023 11:16 AM by Vinod De Leon PA-C: Consultation - Emergency Medicine Summer Bravo MA [facility] 02-17-2023 Note HNO ID: [id number] Author: Eli Smith LPN Service: ? Author Type: LICENSED NURSE Type: Progress Notes Filed: 02/17/2023 12:35 PM Note Text: Scan on 02/13/2023 3:08 PM by Vinod De Leon PA-C: Miscellaneous Lab Scan on 02/13/2023 2:36 PM by Vinod De Leon PA-C: Miscellaneous Lab Scan on 02/13/2023 5:36 PM by Vinod De Leon PA-C: Miscellaneous Lab [facility] 02-05-2023 Note HNO ID: [id number] Author: Gem Guerrero LPN Service: ? Author Type: ? Type: Progress Notes Filed: 02/05/2023 10:30 AM Note Text: Scan on 02/04/2023 4:37 PM by Vinod De Leon PA-C: Hematology Scan on 02/04/2023 5:10 PM by Vinod De Leon PA-C: Chemistry [facility] 02-05-2023 History of Present illness Narrative Scan on 02/04/2023 4:37 PM by Vinod De Leon PA-C: Hematology Scan on 02/04/2023 5:10 PM by Vinod De Leon PA-C: Chemistry documented in this encounter [facility] 01-28-2023 Note HNO ID: [id number] Author: Eli Smith LPN Service: ? Author Type: ? Type: Progress Notes Filed: 01/28/2023 12:06 PM Note Text: Scan on 01/27/2023 11:19 AM by Vinod De Leon PA-C Scan on 01/27/2023 11:35 AM by Vinod De Leon PA-C: Chemistry Scan on 01/27/2023 11:13 AM by Vinod De Leon PA-C: Hematology Scan on 01/27/2023 12:40 PM by Vinod De Leon PA-C: Miscellaneous Procedures [facility] 01-28-2023 History of Present illness Narrative Scan on 01/27/2023 11:19 AM by Vinod De Leon PA-C Scan on 01/27/2023 11:35 AM by Vinod De Leon PA-C: Chemistry Scan on 01/27/2023 11:13 AM by Vinod De Leon PA-C: Hematology Scan on 01/27/2023 12:40 PM by Vinod De Leon PA-C: Miscellaneous Procedures documented in this encounter [facility] 01-21-2023 Note HNO ID: [id number] Author: Eli Smith LPN Service: ? Author Type: ? Type: Progress Notes Filed: 01/21/2023 11:15 AM Note Text: Scan on 01/16/2023 3:02 PM by Vinod De Leon PA-C: Miscellaneous Cardiac [facility] 01-21-2023 History of Present illness Narrative Scan on 01/16/2023 3:02 PM by Vinod De Leon PA-C: Miscellaneous Cardiac documented in this encounter [facility] 01-12-2023 Note HNO ID: [id number] Author: Channing Abebe APRN.[employer] MANAGER Service: ? Author Type: Nurse Practitioner Type: Progress Notes Filed: 01/12/2023 4:36 PM Note Text: PATIENT NAME: Wendy Lux SERVICE TIME: 4:09 PM I have communicated my name and active licensure. The patient's identity and physical location were verified at the time of this visit. Either the patient or their legal tax compliance representative has been informed of the risks and benefits of -- and alternatives to -- treatment through a remote evaluation and consents to proceed with the evaluation remotely. This is a health visit done via zoom. It required patient-provider interaction for the medical decision making as documented below. Wendy Lux is a 52 year old female who presents today for follow up and evaluation of diabetes Type 2 , diagnosed 2008. The patient would like looking for a renal transplant . Last office visit with dr Vargas Persons Present: patient pt updates/concerns today: the patient says her blood glucose is pretty good. She says she was having a lot of lows but they are resolved. Patient says she started dialysis 2 months ago and her blood glucose went haywire. Now everything is better. No low readings, and no more high reading. The patient says she made this appt because she couldn't get in with Dr Vargas. Then an appt opened up and he was able to see her but they nevery canceled this APPontment. MEDICATIONS: Cannot confirm the bolus settings as patient doesn't know how to find them with her pump. Medtronic 630G insulin pump with Humulin RU500 insulin at the following insulin pump settings: Basal rate 2.0 'pump units' per hour Bolus: Insulin:carb ratio 1:7 Sensitivity 1:30 Blood glucose target 00:00= 90-140 Insulin duration= 5 Total basal =48 units Max bolus is 25 units Max basal is 3 units/hr Testing sugars: miguel 2 Hypoglycemia awareness: yes but patient not having problems with this now. A1C Hemoglobin A1C Date Value Ref Range Status 01/07/2023 6.3 (H) 4.3 - 5.6 % Final Comment: [place] [employer] guidelines indicate that patients with HgbA1c in the range 5.7-6.4% are at increased risk for development of diabetes, and intervention by lifestyle modification may be beneficial. HgbA1c greater or equal to 6.5% is considered diagnostic of diabetes. Lab Results Component Value Date HBA1C 6.7 09/25/2022 HBA1C 8.1 06/02/2022 HBA1C 7.7 12/02/2021 HBA1C 7.4 02/04/2021 HBA1C 11.1 07/09/2020 HBA1C 9.1 04/11/2020 HBA1C 7.6 09/14/2018 Diet/Activity Carb counting Activity: none Diabetic Complications: History of diabetic gastroparesis. She has had left BKA and right TMA, is ambulating well with leg prosthesis (L) and insert for shoe on right foot Esrd ,retinopathy, and neuropathy On SANYA/ARB: Albumin/Creat Ratio (mg/g) Date Value 03/13/2018 1,108 (H) Protein, Urine (no units) Date Value 09/25/2022 3+ (A) 05/07/2020 3+ (A) Creatinine Urine (g/24hr) Date Value 11/05/2004 1.84 Creatinine, Ur Random (UCRR) (mg/dL) Date Value 03/13/2018 111.4 On statin: crestor Cholesterol, Total (mg/dL) Date Value 07/09/2020 154 Total Cholesterol, Nonfasting (mg/dL) Date Value 09/25/2022 116 10/29/2020 176 HDL Cholesterol (mg/dL) Date Value 07/09/2020 27 HDL Cholesterol, Nonfasting (mg/dL) Date Value 09/25/2022 30 10/29/2020 33 LDL Cholesterol (mg/dL) Date Value 07/09/2020 Unable to calculate due to increased Triglycerides. See LDL-Chol, Direct. LDL Cholesterol, Nonfasting (mg/dL) Date Value 09/25/2022 35 10/29/2020 Unable to calculate due to increased Triglycerides. A Direct LDL Cholesterol measurement will not be performed. If clinically indicated, a fasting Basic Lipid Panel (LIPB) may be ordered. Triglyceride (mg/dL) Date Value 07/09/2020 782 Triglycerides, Nonfasting (mg/dL) Date Value 09/25/2022 253 10/29/2020 461 Thyroid Disease: none Personal history of pancreatitis yes Personal or family history of MTC (medullary thyroid carcinoma) and Multiple Endocrine Neoplasia syndrome type 2 (MEN 2):patient denies REVIEW OF SYSTEMS: Review of Systems Constitutional: Positive for fatigue and night sweats (just started again for 4 days. sugars were fine at the time). Negative for recent unintentional weight change. HENT: Negative. Negative for postnasal drip and thyroid pain (lower neck). Eyes: Positive for visual disturbance (lost vision in right eye). Respiratory: Positive for difficulty breathing. Cardiovascular: Positive for chest pain, leg swelling (occasional) and claudication. Gastrointestinal: Positive for nausea, vomiting, abdominal pain (occasional-has crohns and lupus), diarrhea and constipation. Negative for heartburn. Genitourinary: Positive for amenorrhea. Negative for urgency, frequent urination, slower stream, menstruating and irregular menses. Musculos (more content not included)... [facility] 01-05-2023 Miscellaneous Notes Called patient on 01/05/23. To let her know that she can get her A1C done before her appointment on Thursday01/12/23. documented in this encounter [facility] 12-03-2022 Note HNO ID: [id number] Author: Migel Wang MD Service: ? Author Type: Physician Type: Progress Notes Filed: 12/03/2022 7:44 AM Note Text: VIRTUAL VISIT Follow-up 52 year-old female, patient of Dr. Johann Peters, with insulin-requiring type 2 diabetes mellitus since 1999, SLE, diabetic neuropathy, diabetic retinopathy, right eye blindness, mixed hyperlipidemia, CKD4. Complicated past medical history. Continues U-500 insulin via insulin pump Still uses Novolog for correction of hyperglycemia, uses insulin sensitivity index 1:2. Pt denies difficulty with insulin injections or self monitoring of blood sugar. No signs of irritation or infection at site of injections. Is taking the insulin as prescribed. Has been monitoring more consistently, checking 6x daily. History of diabetic gastroparesis. She has had left BKA and right TMA, is ambulating well with leg prosthesis (L) and insert for shoe on right foot. Is trying to get a DexCom G6 continuous glucose monitor. Had COVID vaccine. Had diabetic eye exam in 05/2022 Recently diagnosed with Crohn disease, says kidney function worse. Has anemia due to renal disease. Her trade analyst is Dr. Emily Gandhi. She is looking for renal transplant program. Is now on chronic hemodialysis M-F. Has had vein mapping done, had fistula placed left forearm in 06/2022 Was hospitalized twice in 09/2022 at [facility]. Had chest pain, renal failure. Having hypoglycemia, I decreased her basal rate yesterday but she didn't get the message, now > 300 this morning Has been diagnosed with atrial fibrillation. Medtronic 630G insulin pump with Humulin RU500 insulin at the following insulin pump settings: Basal rate 2.0 'pump units' per hour Bolus: Insulin:carb ratio 1:7 Sensitivity 1:30 Blood glucose target 00:00= 90-140 Insulin duration= 5 Current Outpatient Medications on File Prior to Visit Medication Sig rosuvastatin (CRESTOR) 40 mg tablet take 1 tablet by mouth everyday at bedtime apixaban (ELIQUIS) 5 mg tab(s) Take 5 mg by mouth twice daily. ergocalciferol 50,000 unit capsule (VITAMIN D2, DRISDOL) Take 1 capsule by mouth four times a week. magnesium oxide (MAG-OX) 400 mg (241.3 mg magnesium) tablet Take 1 tablet by mouth twice daily. traZODone (DESYREL) 150 mg tablet Take 1 tablet by mouth daily at bedtime. omeprazole (PRILOSEC) 40 mg capsule Take 1 capsule by mouth once daily. DULoxetine (CYMBALTA) 60 mg capsule Take 1 capsule by mouth once daily. metoprolol tartrate, short acting, (LOPRESSOR) 100 mg tablet Take 1 tablet by mouth twice daily. amLODIPine (NORVASC) 5 mg tablet Take 1 tablet by mouth once daily. Per Cardio: [facility] fenofibrate nanocrystallized (TRICOR) 48 mg tablet Take 1 tablet by mouth once daily. calcitriol (ROCALTROL) 0.25 mcg capsule Take 1 capsule by mouth once daily. Per Renal, Dr. Gandhi gabapentin (NEURONTIN) 800 mg tablet Take 1 tablet by mouth three times daily for 180 days. insulin regular human, CONCENTRATED 500 UNIT/ML, (HUMULIN R) 500 unit/mL soln INFUSE UP TO 2,000 UNITS DAILY VIA INSULIN PUMP risankizumab-rzaa (SKYRIZI INTRAVENOUS) Inject intravenously. Infusions at [facility] ferrous sulfate 325 mg (65 mg iron) tablet Take 325 mg by mouth three times daily. epoetin regan-epbx (RETACRIT) 20,000 unit/2 mL injection Inject 20,000 Units subcutaneously once every month. PRN if hgb is under 10 Mesalamine (PENTASA) 500 mg CR capsule Take 1,000 mg by mouth twice daily. diphenoxylate-atropine (LOMOTIL) 2.5-0.025 mg per tablet Take 1 tablet by mouth four times daily as needed. blood sugar diagnostic (CONTOUR NEXT TEST STRIPS) test strip Use to test glucose 6 times daily as directed. DX: E11.8, E11.65, Z79.4, insulin pump dependent. Lancets lancets Use to test blood glucose 6 times daily. ondansetron (ZOFRAN) 8 mg tablet Take 1 tablet by mouth every 12 hours as needed for nausea/vomiting. insulin aspart U-100 (NOVOLOG FLEXPEN U-100 INSULIN) 100 unit/mL (3 mL) INJECT SUBCUTANEOUS THREE TIMES DAILY WITH MEALS PER SSI. TDD: 200 UNITS Ehajw-2-VJF-EPA-Fish Oil (FISH OIL) 1,000 mg (120 mg-180 mg) cap Take 1 capsule by mouth once daily. cyanocobalamin (VITAMIN B-12) 1,000 mcg tab Take 1 tablet by mouth once daily. insulin needles, DISPOSABLE, (PEN NEEDLE) 31 gauge x 5/16 Use as directed 2 times daily, on insulin, E11.42 albuterol HFA (PROAIR HFA) 90 mcg/actuation inhaler Inhale 2 Puffs as instructed every 4 hours as needed for Wheezing/Shortness of Breath. DULoxetine (CYMBALTA) 30 mg capsule Take 1 capsule by mouth once daily. Nebulizer Accessories misc Nebulizer mask Dx: J45.30 Nebulizer Accessories misc Filter Dx: J45.30 albuterol (PROVENTIL) 2.5 mg /3 mL (0.083 %) nebulizer solution Inhale by nebulizer over 5-15 minutes three (3) to four (4) times a day as needed for wheezing and shortness of breath hydrOXYzine pamoate (VISTARIL) 50 mg cap (more content not included)... [facility] 12-03-2022 History of Present illness Narrative VIRTUAL VISIT Follow-up 52 year-old female, patient of Dr. Johann Peters, with insulin-requiring type 2 diabetes mellitus since 1999, SLE, diabetic neuropathy, diabetic retinopathy, right eye blindness, mixed hyperlipidemia, CKD4. Complicated past medical history. Continues U-500 insulin via insulin pump Still uses Novolog for correction of hyperglycemia, uses insulin sensitivity index 1:2. Pt denies difficulty with insulin injections or self monitoring of blood sugar. No signs of irritation or infection at site of injections. Is taking the insulin as prescribed. Has been monitoring more consistently, checking 6x daily. History of diabetic gastroparesis. She has had left BKA and right TMA, is ambulating well with leg prosthesis (L) and insert for shoe on right foot. Is trying to get a DexCom G6 continuous glucose monitor. Had COVID vaccine. Had diabetic eye exam in 05/2022 Recently diagnosed with Crohn disease, says kidney function worse. Has anemia due to renal disease. Her trade analyst is Dr. Emily Gandhi. She is looking for renal transplant program. Is now on chronic hemodialysis M-F. Has had vein mapping done, had fistula placed left forearm in 06/2022 Was hospitalized twice in 09/2022 at [facility]. Had chest pain, renal failure. Having hypoglycemia, I decreased her basal rate yesterday but she didn't get the message, now > 300 this morning Has been diagnosed with atrial fibrillation. Medtronic 630G insulin pump with Humulin RU500 insulin at the following insulin pump settings: Basal rate 2.0 'pump units' per hour Bolus: Insulin:carb ratio 1:7 Sensitivity 1:30 Blood glucose target 00:00= 90-140 Insulin duration= 5 Current Outpatient Medications on File Prior to Visit Medication Sig rosuvastatin (CRESTOR) 40 mg tablet take 1 tablet by mouth everyday at bedtime apixaban (ELIQUIS) 5 mg tab(s) Take 5 mg by mouth twice daily. ergocalciferol 50,000 unit capsule (VITAMIN D2, DRISDOL) Take 1 capsule by mouth four times a week. magnesium oxide (MAG-OX) 400 mg (241.3 mg magnesium) tablet Take 1 tablet by mouth twice daily. traZODone (DESYREL) 150 mg tablet Take 1 tablet by mouth daily at bedtime. omeprazole (PRILOSEC) 40 mg capsule Take 1 capsule by mouth once daily. DULoxetine (CYMBALTA) 60 mg capsule Take 1 capsule by mouth once daily. metoprolol tartrate, short acting, (LOPRESSOR) 100 mg tablet Take 1 tablet by mouth twice daily. amLODIPine (NORVASC) 5 mg tablet Take 1 tablet by mouth once daily. Per Cardio: [facility] fenofibrate nanocrystallized (TRICOR) 48 mg tablet Take 1 tablet by mouth once daily. calcitriol (ROCALTROL) 0.25 mcg capsule Take 1 capsule by mouth once daily. Per Renal, Dr. Gandhi gabapentin (NEURONTIN) 800 mg tablet Take 1 tablet by mouth three times daily for 180 days. insulin regular human, CONCENTRATED 500 UNIT/ML, (HUMULIN R) 500 unit/mL soln INFUSE UP TO 2,000 UNITS DAILY VIA INSULIN PUMP risankizumab-rzaa (SKYRIZI INTRAVENOUS) Inject intravenously. Infusions at [facility] ferrous sulfate 325 mg (65 mg iron) tablet Take 325 mg by mouth three times daily. epoetin regan-epbx (RETACRIT) 20,000 unit/2 mL injection Inject 20,000 Units subcutaneously once every month. PRN if hgb is under 10 Mesalamine (PENTASA) 500 mg CR capsule Take 1,000 mg by mouth twice daily. diphenoxylate-atropine (LOMOTIL) 2.5-0.025 mg per tablet Take 1 tablet by mouth four times daily as needed. blood sugar diagnostic (CONTOUR NEXT TEST STRIPS) test strip Use to test glucose 6 times daily as directed. DX: E11.8, E11.65, Z79.4, insulin pump dependent. Lancets lancets Use to test blood glucose 6 times daily. ondansetron (ZOFRAN) 8 mg tablet Take 1 tablet by mouth every 12 hours as needed for nausea/vomiting. insulin aspart U-100 (NOVOLOG FLEXPEN U-100 INSULIN) 100 unit/mL (3 mL) INJECT SUBCUTANEOUS THREE TIMES DAILY WITH MEALS PER SSI. TDD: 200 UNITS Fhqsi-2-ZAQ-EPA-Fish Oil (FISH OIL) 1,000 mg (120 mg-180 mg) cap Take 1 capsule by mouth once daily. cyanocobalamin (VITAMIN B-12) 1,000 mcg tab Take 1 tablet by mouth once daily. insulin needles, DISPOSABLE, (PEN NEEDLE) 31 gauge x 5/16 Use as directed 2 times daily, on insulin, E11.42 albuterol HFA (PROAIR HFA) 90 mcg/actuation inhaler Inhale 2 Puffs as instructed every 4 hours as needed for Wheezing/Shortness of Breath. DULoxetine (CYMBALTA) 30 mg capsule Take 1 capsule by mouth once daily. Nebulizer Accessories [facility] Nebulizer mask Dx: J45.30 Nebulizer Accessories misc Filter Dx: J45.30 albuterol (PROVENTIL) 2.5 mg /3 mL (0.083 %) nebulizer solution Inhale by nebulizer over 5-15 minutes three (3) to four (4) times a day as needed for wheezing and shortness of breath hydrOXYzine pamoate (VISTARIL) 50 mg capsule Take 1 capsule by mouth three times daily as needed for Anxiety (Restlessness). blood-glucose meter, wireless (CONTOUR NEXT LINK) kit Use as directed to test blood glucose. COMPOUNDED PRESCRIPTION Oxygen at 2 L with CPAP at night and PRN during the day Iron infusions ALLERGIES Allergen Reactions Environmental Aller* Unknown Cockroaches, dust mites, maple trees Lipitor [Atorvastat* GI Upset May of contributed to vomiting Metformin Other: See Comments Renal impairment Percocet [Oxycodone* Vomiting Plaquenil [Hydroxyc* Other: See Comments Due to current level of eye damage Answers submitted by the patient for this visit: Core Review of Systems (Submitted on 12/03/2022) Fever : No Night sweats: Yes Recent unintentional weight change: No Nasal Congestion: No Hearing Loss: No Vision Disturbance: Yes A cough: No Difficulty Breathing?: No Chest pain: Yes Irregular heartbeat: Yes Leg Swelling: Yes Nausea: Yes Diarrhea: Yes Black tarry stools: No Difficulty Urinating?: No Awaken at Night More Than Once to Urinate?: No Joint pain or stiffness: Yes Muscle aches: Yes Leg or Foot Discomfort at Night?: Yes A rash: No Dizziness: No Headaches: Yes Memory Loss: Yes Seizures: No LMP 12/03/2006 No physical exam. A1C today via Afinion was 8.1%. Latest Reference Range & Units 09/25/22 15:22 Sodium 136 - 144 mmol/L 142 Potassium 3.7 - 5.1 mmol/L 5.0 Chloride 97 - 105 mmol/L 110 (H) CO2 22 - 30 mmol/L 19 (L) BUN 7 - 21 mg/dL 48 (H) Creatinine 0.58 - 0.96 mg/dL 3.03 (H) Glucose 74 - 99 mg/dL 131 (H) Protein, Total 6.3 - 8.0 g/dL 6.6 Calcium 8.5 - 10.2 mg/dL 8.9 Magnesium 1.7 - 2.3 mg/dL 1.5 (L) Albumin 3.9 - 4.9 g/dL 3.4 (L) Bilirubin, Total 0.2 - 1.3 mg/dL 0.2 Alkaline Phosphatase 34 - 123 U/L 77 ALT 7 - 38 U/L 8 AST 13 - 35 U/L 17 eGFR >=60 mL/min/1.73m 18 (L) Vitamin B12 232 - 1,245 pg/mL 647 Iron 41 - 186 ug/dL 55 TIBC 232 - 386 ug/dL 253 Transferrin Saturation 15.0 - 57.0 % 21.7 Vitamin D 25 Hydroxy 31.0 - 80.0 ng/mL 24.7 (L) Total Cholesterol, Nonfasting <200 mg/dL 116 Triglycerides, Nonfasting <150 mg/dL 253 (H) HDL Cholesterol, Nonfasting >39 mg/dL 30 (L) Non HDL Cholesterol, Nonfasting <130 mg/dL 86 Hemoglobin A1C 4.3 - 5.6 % 6.7 (H) TSH 0.270 - 4.200 mIU/L 1.240 (H): Data is abnormally high (L): Data is abnormally low !: Data is abnormal Thyroid US in 11/2021 showed right mid-pole nodule at 0.9 cm TR4, and right lower pole nodule at 1.8 cm TR4. FNA of the 1.8 cm nodule in 12/2021 was benign. Assessment: Type 2 diabetes mellitus with diabetic retinopathy - insulin-requiring, fairly good control, urged frequent monitoring. May need to decrease basal rate if hypoglycemia returns. Retinopathy stable. Obesity - urged weight loss efforts Hypertension - reasonably good BP control per patient; check BP in the community, stressed goal BP less than 140/80 Diabetic neuropathy - stable ESRD - care per Dr. Gandhi in [place] Vitamin D deficiency - continue vitamin D supplement Mixed hyperlipidemia - continue rosuvastatin + renal-dose fenofibrate Multiple thyroid nodules - repeat thyroid US Plan: Continue current insulin pump settings for now Check thyroid US See me again in 6 months. Migel Wang MD Duration of call: 15 minutes I have communicated my name and active licensure. The patient's identity and physical location were verified at the time of this visit. Either the patient or their legal tax compliance representative has been informed of the risks and benefits of -- and alternatives to -- treatment through a remote evaluation and consents to proceed with the evaluation remotely. documented in this encounter [facility] 11-12-2022 Note HNO ID: [id number] Author: Eli Smith LPN Service: ? Author Type: ? Type: Progress Notes Filed: 11/12/2022 3:43 PM Note Text: Scan on 11/12/2022 2:30 PM by Provider, External, PA-C: X-ray [facility] 11-12-2022 Note HNO ID: [id number] Author: Gem Guerrero LPN Service: ? Author Type: ? Type: Progress Notes Filed: 11/12/2022 2:24 PM Note Text: Scan on 11/12/2022 1:20 PM by ProviderVinod PA-C: Chemistry Scan on 11/12/2022 12:41 PM by Vinod De Leon PA-C: Hematology Scan on 11/12/2022 1:20 PM by Vinod De Leon PA-C: Chemistry Scan on 11/12/2022 1:55 PM by ProviderVinod PA-C: X-ray [facility] 11-11-2022 Note HNO ID: [id number] Author: Kaye Dover Ma Service: ? Author Type: ? Type: Progress Notes Filed: 11/13/2022 11:29 AM Note Text: Scan on 11/10/2022 4:43 PM by Vinod De Leon PA-C: Consultation - Anesthesia/Pain [facility] 11-05-2022 Miscellaneous Notes Patient phones requesting refills as follows: Requested Prescriptions Pending Prescriptions Disp Refills flash glucose scanning reader (FREESTYLE MIGUEL 2 READER) 1 Each 0 Sig: USE TO MONITOR BLOOD SUGAR CONTINUALLY DX: E11.8, E11.65, Z79.4, insulin pump dependent. flash glucose sensor (FREESTYLE MIGUEL 2 SENSOR) kit 6 Each 3 Sig: USE TO MONITOR BLOOD SUGAR CONTINUALLY. CHANGE EVERY 14 DAYS DX: E11.8, E11.65, Z79.4, insulin pump dependent. Please review and advise. Apurva Sawant MA documented in this encounter [facility] 10-30-2022 Note HNO ID: [id number] Author: Gem Guerrero LPN Service: ? Author Type: ? Type: Progress Notes Filed: 10/30/2022 10:28 PM Note Text: Scan on 10/29/2022 10:43 AM by ProviderVinod PA-C: Consultation - Hematology/Oncology [facility] 10-30-2022 History of Present illness Narrative Scan on 10/29/2022 10:43 AM by Vinod De Leon PA-C: Consultation - Hematology/Oncology documented in this encounter [facility] 10-28-2022 Miscellaneous Notes Pt notified. Kaye Dover Ma Advise patient it's ok to get her flu shoot with the Skyrizzi. Pt gets Skyrizi through Dr Cox & is asking if it is safe for her to get an influenza vaccine? Please advise. Kristina Torres LPN documented in this encounter [facility] 10-23-2022 Note HNO ID: [id number] Author: Danna Rosas LPN Service: ? Author Type: ? Type: Progress Notes Filed: 10/23/2022 12:54 PM Note Text: Patient presents for Twinrix and MMR vaccines. Denies any problems at this time. Tolerated injections well. Danna Rosas LPN [facility] 10-23-2022 History of Present illness Narrative Patient presents for Twinrix and MMR vaccines. Denies any problems at this time. Tolerated injections well. Danna Rosas LPN documented in this encounter [facility] 10-22-2022 Miscellaneous Notes Message sent to patient. Closed. documented in this encounter [facility] 10-06-2022 Miscellaneous Notes Pt called and requested her referral to pain management be faxed to Dr. Dunlap. Referral and supporting information faxed. Carla Gomez LPN documented in this encounter [facility] 10-03-2022 Note HNO ID: [id number] Author: Sherie Escobar Service: ? Author Type: ? Type: Progress Notes Filed: 10/03/2022 4:19 PM Note Text: POPULATION HEALTH NAVIGATION OUTREACH Action/[facility] Support: Called pt to schedule an appt in Pain Management. Lvm for pt to call [phone] for scheduling. Patient Identified by Name and : NO Outreach Outcome/Action Unable to reach patient: Left message Did you use a PCP flex slot to schedule this appointment? No Reason for Outreach Care Gap or Scheduling/Wellness visits Payer: Payor: [employer] MEDICARE / Plan: AET[employer] MEDICARE HMO / Product Type: HMO / Care Gap Reviewed:: Specialty Scheduling Reminder: Reminder note to check Health Maintenance for items below Health Maintenance items due: MENINGOCOCCAL B: Consider based on risk(1 of 4 - Increased Risk) Never done MMR(1 of 2 - Risk 2-dose series) Never done BP CONTROLLED (<130/80) Never done HEPATITIS A(2 of 3 - Hep A Twinrix risk 3-dose series) due on 10/23/2022 Navigation Signature: Sherie Escobar October 03, 2022 4:18 PM [facility] 10-03-2022 History of Present illness Narrative POPULATION HEALTH NAVIGATION OUTREACH Action/[facility] Support: Called pt to schedule an appt in Pain Management. Lvm for pt to call [phone] for scheduling. Patient Identified by Name and : NO Outreach Outcome/Action Unable to reach patient: Left message Did you use a PCP flex slot to schedule this appointment? No Reason for Outreach Care Gap or Scheduling/Wellness visits Payer: Payor: AETNA MEDICARE / Plan: AETNA MEDICARE HMO / Product Type: HMO / Care Gap Reviewed:: Specialty Scheduling Reminder: Reminder note to check Health Maintenance for items below Health Maintenance items due: MENINGOCOCCAL B: Consider based on risk(1 of 4 - Increased Risk) Never done MMR(1 of 2 - Risk 2-dose series) Never done BP CONTROLLED (<130/80) Never done HEPATITIS A(2 of 3 - Hep A Twinrix risk 3-dose series) due on 10/23/2022 Navigation Signature: Sherie Escobar October 03, 2022 4:18 PM documented in this encounter [facility] 10-03-2022 Note Patient Outreach (NE TNAV) WENDY LUX ([id number]) 1970 F Date Time Provider Department 10/03/22 NO PCP NETNAV During your visit today, we recorded the following information about you: Sherie Escobar 10/03/2022 4:19 PM Signed POPULATION HEALTH NAVIGATION OUTREACH Action/[facility] Support: Called pt to schedule an appt in Pain Management. Lvm for pt to call [phone] for scheduling. Patient Identified by Name and : NO Outreach Outcome/Action Unable to reach patient: Left message Did you use a PCP flex slot to schedule this appointment? No Reason for Outreach Care Gap or Scheduling/Wellness visits Payer: Payor: AETNA MEDICARE / Plan: AET[employer] MEDICARE HMO / Product Type: HMO / Care Gap Reviewed:: Specialty Scheduling Reminder: Reminder note to check Health Maintenance for items below Health Maintenance items due: MENINGOCOCCAL B: Consider based on risk(1 of 4 - Increased Risk) Never done MMR(1 of 2 - Risk 2-dose series) Never done BP CONTROLLED (<130/80) Never done HEPATITIS A(2 of 3 - Hep A Twinrix risk 3-dose series) due on 10/23/2022 Navigation Signature: Sherie Escobar October 03, 2022 4:18 PM Allergies As of Date: 10/03/2022 Noted Allergy Reaction Environmental allergies [Other] 12/16/2005 16 - Unknown Comments: Cockroaches, dust mites, maple trees LIPITOR (ATORVASTATIN CALCIUM) 09/17/2015 8 - GI Upset Comments: June contributed to vomiting METFORMIN 03/17/2018 14 - Other: See Comments Comments: Renal impairment PERCOCET (OXYCODONE-ACETAMINOPHEN) 5 11 - Vomiting PLAQUENIL (HYDROXYCHLOROQUINE SUL*03/17/2018 14 - Other: See Comments Comments: Due to current level of eye damage Date Reviewed: 09/25/2022 Reviewed by: Johann Peters MD - Fully Assessed Prescriptions as of 10/03/2022 - ergocalciferol 50,000 unit capsule (VITAMIN D2, DRISDOL) Take 1 capsule by mouth four times a week. - magnesium oxide (MAG-OX) 400 mg (241.3 mg magnesium) tablet Take 1 tablet by mouth twice daily. - traZODone (DESYREL) 150 mg tablet Take 1 tablet by mouth daily at bedtime. - omeprazole (PRILOSEC) 40 mg capsule Take 1 capsule by mouth once daily. - DULoxetine (CYMBALTA) 60 mg capsule Take 1 capsule by mouth once daily. - metoprolol tartrate, short acting, (LOPRESSOR) 100 mg tablet Take 1 tablet by mouth twice daily. - amLODIPine (NORVASC) 5 mg tablet Take 1 tablet by mouth once daily. Per Cardio: [facility] - fenofibrate nanocrystallized (TRICOR) 48 mg tablet Take 1 tablet by mouth once daily. - calcitriol (ROCALTROL) 0.25 mcg capsule Take 1 capsule by mouth once daily. Per Renal, Dr. Gandhi - gabapentin (NEURONTIN) 800 mg tablet Take 1 tablet by mouth three times daily for 180 days. - insulin regular human, CONCENTRATED 500 UNIT/ML, (HUMULIN R) 500 unit/mL soln INFUSE UP TO 2,000 UNITS DAILY VIA INSULIN PUMP - rosuvastatin (CRESTOR) 40 mg tablet Take 1 tablet by mouth daily at bedtime. - risankizumab-rzaa (SKYRIZI INTRAVENOUS) Inject intravenously. Infusions at [facility] - ferrous sulfate 325 mg (65 mg iron) tablet Take 325 mg by mouth three times daily. - tramadol HCl (TRAMADOL ORAL) Take 50 mg by mouth three times daily as needed. - epoetin regan-epbx (RETACRIT) 20,000 unit/2 mL injection Inject 20,000 Units subcutaneously once every month. PRN if hgb is under 10 - Mesalamine (PENTASA) 500 mg CR capsule Take 1,000 mg by mouth twice daily. - diphenoxylate-atropine (LOMOTIL) 2.5-0.025 mg per tablet Take 1 tablet by mouth four times daily as needed. - blood sugar diagnostic (CONTOUR NEXT TEST STRIPS) test strip Use to test glucose 6 times daily as directed. DX: E11.8, E11.65, Z79.4, insulin pump dependent. - Lancets lancets Use to test blood glucose 6 times daily. - ondansetron (ZOFRAN) 8 mg tablet Take 1 tablet by mouth every 12 hours as needed for nausea/vomiting. - insulin aspart U-100 (NOVOLOG FLEXPEN U-100 INSULIN) 100 unit/mL (3 mL) INJECT SUBCUTANEOUS THREE TIMES DAILY WITH MEALS PER SSI. TDD: 200 UNITS - Rwhly-6-SCU-EPA-Fish Oil (FISH OIL) 1,000 mg (120 mg-180 mg) cap Take 1 capsule by mouth once daily. - cyanocobalamin (VITAMIN B-12) 1,000 mcg tab Take 1 tablet by mouth once daily. - insulin needles, DISPOSABLE, (PEN NEEDLE) 31 gauge x 5/16 Use as directed 2 times daily, on insulin, E11.42 - albuterol HFA (PROAIR HFA) 90 mcg/actuation inhaler Inhale 2 Puffs as instructed every 4 hours as needed for Wheezing/Shortness of Breath. - DULoxetine (CYMBALTA) 30 mg capsule Take 1 capsule by mouth once daily. - Nebulizer Accessories mis Nebulizer mask Dx: J45.30 - Nebulizer Accessories misc Filter Dx: J45.30 - albuterol (PROVENTIL) 2.5 mg /3 mL (0.083 %) nebulizer solution Inhale by nebulizer over 5-15 minutes three (3) to four (4) times a day as needed for wheezing and shortness of breath - hydrOXYz (more content not included)... [facility] 09-26-2022 Miscellaneous Notes Patient is active on Leot- sent message Please tell her to decrease insulin pump basal rate to 2.0 pump units/hour. Thanks documented in this encounter [facility] 09-25-2022 Note HNO ID: [id number] Author: Johann Peters MD Service: ? Author Type: Physician Type: Progress Notes Filed: 09/25/2022 9:34 PM Note Text: Chief Complaint HPI Wendy Lux is a 52 year old female who presents here today for Physical. Office visit - Patient was d/c from hospital 09/24/2022. Was seen for chest pain. Had stress test completed and is scanned into the computer. Patient indicated that she was told that she had a lot of PVC's and an enlarged heart. Patient is waiting for results from [facility] on her heart monitor. She was told while she was having the CP she was having a lot of PVC's. Patient indicated that she was told to follow up with PCP today and have a BMP completed as her kidney function is low. Patient indicated that Dr. Summers's office indicated that her fistula is ready. Patient has tried the last 2 days and left messages for Dr. Gandhi's office and has not heard back. Her next appointment with Dr. Gandhi is not for 2 months. Patient is scheduled tomorrow with Rosie for hospital follow up. Patient was not aware of this appointment. Past medical history, appointments, medications, allergies reviewed. Previous Medical History PAST MEDICAL HISTORY Diagnosis Date Adnexal mass, right 12/16/[address] in 11/2016 Allergic rhinitis 04/17/2006 Allergic rhinitis, cause unspecified 04/17/2006 Arthritis Bilateral renal cysts 07/06/2015 Bulge of lumbar disc without myelopathy 05/15/2016 L4-5 and L5-S1 Carpal tunnel syndrome Chronic lymphadenitis 09/17/[address] Anibal Fry at the [facility]: Had lymph node biopsy a year ago that showed reactive tissue. Chronic nausea 04/30/2021 Chronic pain syndrome 03/06/2020 RA and Lupus related. On Tramadol per Dr. Littlejohn Cirrhosis of liver without ascites (HCC) 01/31/2015 Secondary to fatty liver, liver biopsy proven. CKD (chronic kidney disease) stage 3, GFR 30-59 ml/min ([facility]) 12/09/2017 Class 1 obesity due to excess calories with serious comorbidity and body mass index (BMI) of 30.0 to 30.9 in adult 03/03/2017 Crohn's disease ([facility]) 08/21/[address] Cox Diabetic eye exam ([facility]) 04/28/2017 Last done: 12/09/2017 Diabetic gastroparesis ([facility]) 09/24/2015 Empirically diagnosed since had nausea/vomiting, could not tolerate gastric emptying study. Good response to Reglan. Diabetic polyneuropathy 01/31/2015 Diabetic ulcer of right midfoot associated with type 2 diabetes mellitus, with fat layer exposed ([facility]) 07/09/2020 Diastolic dysfunction 11/05/2018 Duodenitis without mention of hemorrhage 10/06/2008 Essential hypertension 08/24/2018 Essential tremor 10/27/2020 Family history of malignant melanoma 11/05/2018 Fatty liver 05/03/2014 Fibromyalgia 07/26/2014 AYESHA (generalized anxiety disorder) 05/18/2017 Gastroesophageal reflux disease without esophagitis 01/31/2015 Hemorrhage of gastrointestinal tract, unspecified History of 2019 novel coronavirus disease (COVID-19) 02/21/2020 02/08/2020 History of 2019 novel coronavirus disease (COVID-19) 02/21/2020 02/08/2020, 08/20/2021 History of TB (tuberculosis) 02/02/2018 History of temporal arteritis 02/05/2016 History of transfusion Hyperparathyroidism, secondary renal ([facility]) 07/06/[address] Gandhi Hypomagnesemia 11/06/2016 IBS (irritable bowel syndrome) 05/03/2014 Insulin pump status 01/22/2016 Internal hemorrhoids 04/09/2005 Iron deficiency anemia 11/06/2016 Leg edema, right 05/16/2016 Lesion of liver 10/29/2016 Low serum vitamin B12 05/09/2021 Lupus ([facility]) Major depressive disorder in full remission ([facility]) 05/03/2014 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 2 diabetes mellitus ([facility]) 11/06/2016 Mild persistent asthma without complication 01/31/[address] Ramesh: Mild persistent asthma. 04/23/2012 normal spirometry. 04/2012 Methacholine Inhalation Challenge positive at level 5. Mixed hyperlipidemia 03/07/2015 HINTON (nonalcoholic steatohepatitis) 11/06/2016 Nephrolithiasis 05/18/2010 Obesity, Class I, BMI 30-34.9 07/09/2020 Obstructive sleep apnea 10/11/[address] Xiao, Working to get set up with a CPAP at 8 cm H2O with 1 L O2 bled in On home oxygen therapy 2 liters at Osteomyelitis of ankle or foot 04/30/2015 left, prior to left BKA Psychophysiological insomnia 09/14/2018 Pulmonary HTN (HCC) 10/11/2008 Oxygen at home, uses prn. 2L per NC at night PVC's (premature ventricular contractions) 04/30/2021 Seeing [facility], on metoprolol. S/P BKA (below knee amputation) unilateral, left (HCC) 09/14/2018 Done 08/06/2018 Sjogren's syndrome ([facility]) 08/31/[address] Littlejohn Spinal stenosis, lumbosacral region 05/15/2016 Mild at L4-L5 Status post transmetatarsal amputation of right foot ([facility]) 11/05/2018 Stroke ([facility]) TB lung, latent 07/26/2014 treatment started 06/2014 Tongue biting 08/31/2017 Type 2 diabetes mellitus with proteinuria ([facility]) 02/21/2015 Vitamin (more content not included)... [facility] 09-25-2022 History of Present illness Narrative Chief Complaint MELLO Lux is a 52 year old female who presents here today for Physical. Office visit - Patient was d/c from hospital 09/24/2022. Was seen for chest pain. Had stress test completed and is scanned into the computer. Patient indicated that she was told that she had a lot of PVC's and an enlarged heart. Patient is waiting for results from [facility] on her heart monitor. She was told while she was having the CP she was having a lot of PVC's. Patient indicated that she was told to follow up with PCP today and have a BMP completed as her kidney function is low. Patient indicated that Dr. Summers's office indicated that her fistula is ready. Patient has tried the last 2 days and left messages for Dr. Gandhi's office and has not heard back. Her next appointment with Dr. Gandhi is not for 2 months. Patient is scheduled tomorrow with Rosie for hospital follow up. Patient was not aware of this appointment. Past medical history, appointments, medications, allergies reviewed. Previous Medical History PAST MEDICAL HISTORY Diagnosis Date Adnexal mass, right 12/16/[address] in 11/2016 Allergic rhinitis 04/17/2006 Allergic rhinitis, cause unspecified 04/17/2006 Arthritis Bilateral renal cysts 07/06/2015 Bulge of lumbar disc without myelopathy 05/15/2016 L4-5 and L5-S1 Carpal tunnel syndrome Chronic lymphadenitis 09/17/[address] Anibal Fry at the [facility]: Had lymph node biopsy a year ago that showed reactive tissue. Chronic nausea 04/30/2021 Chronic pain syndrome 03/06/2020 RA and Lupus related. On Tramadol per Dr. Littlejohn Cirrhosis of liver without ascites (HCC) 01/31/2015 Secondary to fatty liver, liver biopsy proven. CKD (chronic kidney disease) stage 3, GFR 30-59 ml/min (HCC) 12/09/2017 Class 1 obesity due to excess calories with serious comorbidity and body mass index (BMI) of 30.0 to 30.9 in adult 03/03/2017 Crohn's disease (HCC) 08/21/[address] Cox Diabetic eye exam ([facility]) 04/28/2017 Last done: 12/09/2017 Diabetic gastroparesis (HCC) 09/24/2015 Empirically diagnosed since had nausea/vomiting, could not tolerate gastric emptying study. Good response to Reglan. Diabetic polyneuropathy 01/31/2015 Diabetic ulcer of right midfoot associated with type 2 diabetes mellitus, with fat layer exposed (HCC) 07/09/2020 Diastolic dysfunction 11/05/2018 Duodenitis without mention of hemorrhage 10/06/2008 Essential hypertension 08/24/2018 Essential tremor 10/27/2020 Family history of malignant melanoma 11/05/2018 Fatty liver 05/03/2014 Fibromyalgia 07/26/2014 AYESHA (generalized anxiety disorder) 05/18/2017 Gastroesophageal reflux disease without esophagitis 01/31/2015 Hemorrhage of gastrointestinal tract, unspecified History of 2019 novel coronavirus disease (COVID-19) 02/21/2020 02/08/2020 History of 2019 novel coronavirus disease (COVID-19) 02/21/2020 02/08/2020, 08/20/2021 History of TB (tuberculosis) 02/02/2018 History of temporal arteritis 02/05/2016 History of transfusion Hyperparathyroidism, secondary renal (HCC) 07/06/[address] Gandhi Hypomagnesemia 11/06/2016 IBS (irritable bowel syndrome) 05/03/2014 Insulin pump status 01/22/2016 Internal hemorrhoids 04/09/2005 Iron deficiency anemia 11/06/2016 Leg edema, right 05/16/2016 Lesion of liver 10/29/2016 Low serum vitamin B12 05/09/2021 Lupus (HCC) Major depressive disorder in full remission (HCC) 05/03/2014 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 2 diabetes mellitus (HCC) 11/06/2016 Mild persistent asthma without complication 01/31/[address] Ramesh: Mild persistent asthma. 04/23/2012 normal spirometry. 04/2012 Methacholine Inhalation Challenge positive at level 5. Mixed hyperlipidemia 03/07/2015 HINTON (nonalcoholic steatohepatitis) 11/06/2016 Nephrolithiasis 05/18/2010 Obesity, Class I, BMI 30-34.9 07/09/2020 Obstructive sleep apnea 10/11/[address] Xiao, Working to get set up with a CPAP at 8 cm H2O with 1 L O2 bled in On home oxygen therapy 2 liters at Osteomyelitis of ankle or foot 04/30/2015 left, prior to left BKA Psychophysiological insomnia 09/14/2018 Pulmonary HTN ([facility]) 10/11/2008 Oxygen at home, uses prn. 2L per NC at night PVC's (premature ventricular contractions) 04/30/2021 Seeing [facility], on metoprolol. S/P BKA (below knee amputation) unilateral, left ([facility]) 09/14/2018 Done 08/06/2018 Sjogren's syndrome ([facility]) 08/31/[address] Littlejohn Spinal stenosis, lumbosacral region 05/15/2016 Mild at L4-L5 Status post transmetatarsal amputation of right foot ([facility]) 11/05/2018 Stroke ([facility]) TB lung, latent 07/26/2014 treatment started 06/2014 Tongue biting 08/31/2017 Type 2 diabetes mellitus with proteinuria (HCC) 02/21/2015 Vitamin D deficiency 05/03/2014 Well adult exam 04/30/2021 Last done: 04/30/2021 Previous Surgical History PAST SURGICAL HISTORY Procedure Laterality Date 2D ECHO (EXEP) 06/03/2016 EF=55%, no valvue issues ABDOMINAL SURGERY HX AMPUTATION OF LOWER LEG Left 08/06/2018 BKA, ortho [place] BX LVR NDL DONE PURPOSE TM OTH MAJOR PX 12/14/2008 BX/EXC LYMPH NODE OPEN SUPERFICIAL 06/20/2014 left inguinal CARPAL TUNNEL RIGHT WRIST 01/2007 COLONOSCOPY FLX DX W/COLLJ SPEC WHEN PFRMD 11/07/1996 Colonoscopy COLONOSCOPY FLX DX W/COLLJ SPEC WHEN PFRMD 10/06/2008 Normal COLONOSCOPY FLX DX W/COLLJ SPEC WHEN PFRMD 08/09/2015 Colonoscopy COLONOSCOPY FLX DX W/COLLJ SPEC WHEN PFRMD 01/22/2021 COLONOSCOPY W/BIOPSY SINGLE/MULTIPLE 04/09/2005 DILATION & CURETTAGE DX&/THER NONOBSTETRIC Dilation & curettage x2 EGD TRANSORAL BIOPSY SINGLE/MULTIPLE 10/06/2008 Duodenitis ESOPHAGOGASTRODUODENOSCOPY TRANSORAL DIAGNOSTIC 08/09/2015 EGD ESOPHAGOGASTRODUODENOSCOPY TRANSORAL DIAGNOSTIC 01/22/2021 EYE SURGERY HX FECAL OCCULT BLOOD TEST 05/20/2017 negative HEART CATHETERIZATION 06/10/2016 Cath was normal HERNIA REPAIR HX LAPAROSCOPY W/RMVL ADNEXAL STRUCTURES 11/30/2006 RSO for ovarian cyst LAPS SURG CHOLECYSTECTOMY W/CHOLANGIOGRAPHY 08/2003 Doctor's Hopsital LEXISCAN STRESS TEST 06/14/2020 negative LIG/TRNSXJ FLP TUBE ABDL/VAG APPR UNI/BI Tubal ligation OTHER SURGICAL HISTORY (PLEASE SPECIFY) HX 04/2015 partial right foot amputation PAST SURGICAL HISTORY OF lithotripsy several PAST SURGICAL HISTORY OF percutaneous right kidney PAST SURGICAL HISTORY OF 2011 Bilateral carpal tunnel release PAST SURGICAL HISTORY OF 2011 left foot surgery PAST SURGICAL HISTORY OF 2012 Debridement bilateral great toes PAST SURGICAL HISTORY OF 02/28/2015 right toe amputation PAST SURGICAL HISTORY OF 05/2017 removed all five toes on the left foot. Dr. Palacios PAST SURGICAL HISTORY OF 10/2017 left 1st metatarsal bone removed per Dr. Palacios. REMV CATARACT EXTRACAP,INSERT LENS Right 10/08/2020 REPAIR FIRST ABDOMINAL WALL HERNIA 12/14/2008 SIGMOIDOSCOPY FLX DX W/COLLJ SPEC BR/WA IF PFRMD 09/16/2007 SIGMOIDOSCOPY FLX DX W/COLLJ SPEC BR/WA IF PFRMD 12/02/2010 Sigmoidoscopy, flexible STRESS TEST 12/28/2015 WNL TOTAL ABDOMINAL HYSTERECT W/WO RMVL TUBE OVARY 12/2006 Lt ovary and apendix removed also VAGINAL HYSTERECTOMY Family History FAMILY HISTORY Problem Relation Age of Onset other (liver cysts) Mother other (unknown) Father other (juvenile arthritis) Brother Cancer Brother bone ca, hodgkins lymphoma at 27 Thyroid Cancer Daughter Thyroid Daughter Heart Daughter cyst Patient Allergies ALLERGIES Allergen Reactions Environmental Aller* Unknown Cockroaches, dust mites, maple trees Lipitor [Atorvastat* GI Upset May of contributed to vomiting Metformin Other: See Comments Renal impairment Percocet [Oxycodone* Vomiting Plaquenil [Hydroxyc* Other: See Comments Due to current level of eye damage Current Medications Current Outpatient Medications on File Prior to Visit Medication Sig omeprazole (PRILOSEC) 40 mg capsule Take 1 capsule by mouth once daily. DULoxetine (CYMBALTA) 60 mg capsule Take 1 capsule by mouth once daily. metoprolol tartrate, short acting, (LOPRESSOR) 100 mg tablet Take 1 tablet by mouth twice daily. amLODIPine (NORVASC) 5 mg tablet Take 1 tablet by mouth once daily. Per Cardio: [facility] fenofibrate nanocrystallized (TRICOR) 48 mg tablet Take 1 tablet by mouth once daily. calcitriol (ROCALTROL) 0.25 mcg capsule Take 1 capsule by mouth once daily. Per Renal, Dr. Gandhi traZODone (DESYREL) 150 mg tablet Take 1 tablet by mouth daily at bedtime. gabapentin (NEURONTIN) 800 mg tablet Take 1 tablet by mouth three times daily for 180 days. insulin regular human, CONCENTRATED 500 UNIT/ML, (HUMULIN R) 500 unit/mL soln INFUSE UP TO 2,000 UNITS DAILY VIA INSULIN PUMP rosuvastatin (CRESTOR) 40 mg tablet Take 1 tablet by mouth daily at bedtime. risankizumab-rzaa (SKYRIZI INTRAVENOUS) Inject intravenously. Infusions at [facility] ferrous sulfate 325 mg (65 mg iron) tablet Take 325 mg by mouth three times daily. tramadol HCl (TRAMADOL ORAL) Take 50 mg by mouth three times daily as needed. epoetin regan-epbx (RETACRIT) 20,000 unit/2 mL injection Inject 20,000 Units subcutaneously once every month. PRN if hgb is under 10 Mesalamine (PENTASA) 500 mg CR capsule Take 1,000 mg by mouth twice daily. diphenoxylate-atropine (LOMOTIL) 2.5-0.025 mg per tablet Take 1 tablet by mouth four times daily as needed. ergocalciferol 50,000 unit capsule (VITAMIN D2, DRISDOL) Take 1 capsule by mouth three times a week. blood sugar diagnostic (CONTOUR NEXT TEST STRIPS) test strip Use to test glucose 6 times daily as directed. DX: E11.8, E11.65, Z79.4, insulin pump dependent. Lancets lancets Use to test blood glucose 6 times daily. ondansetron (ZOFRAN) 8 mg tablet Take 1 tablet by mouth every 12 hours as needed for nausea/vomiting. insulin aspart U-100 (NOVOLOG FLEXPEN U-100 INSULIN) 100 unit/mL (3 mL) INJECT SUBCUTANEOUS THREE TIMES DAILY WITH MEALS PER SSI. TDD: 200 UNITS Etvue-1-FTG-EPA-Fish Oil (FISH OIL) 1,000 mg (120 mg-180 mg) cap Take 1 capsule by mouth once daily. cyanocobalamin (VITAMIN B-12) 1,000 mcg tab Take 1 tablet by mouth once daily. insulin needles, DISPOSABLE, (PEN NEEDLE) 31 gauge x 5/16 Use as directed 2 times daily, on insulin, E11.42 albuterol HFA (PROAIR HFA) 90 mcg/actuation inhaler Inhale 2 Puffs as instructed every 4 hours as needed for Wheezing/Shortness of Breath. DULoxetine (CYMBALTA) 30 mg capsule Take 1 capsule by mouth once daily. Nebulizer Accessories misc Nebulizer mask Dx: J45.30 Nebulizer Accessories misc Filter Dx: J45.30 albuterol (PROVENTIL) 2.5 mg /3 mL (0.083 %) nebulizer solution Inhale by nebulizer over 5-15 minutes three (3) to four (4) times a day as needed for wheezing and shortness of breath hydrOXYzine pamoate (VISTARIL) 50 mg capsule Take 1 capsule by mouth three times daily as needed for Anxiety (Restlessness). magnesium oxide (MAG-OX) 400 mg (241.3 mg magnesium) tablet Take 1 tablet by mouth once daily. blood-glucose meter, wireless (CONTOUR NEXT LINK) kit Use as directed to test blood glucose. COMPOUNDED PRESCRIPTION Oxygen at 2 L with CPAP at night and PRN during the day No current facility-administered medications on file prior to visit. Social History Social History Tobacco Use Smoking status: Never Smokeless tobacco: Never Tobacco comments: No smokers in current home. 2 smokers in childhood home. Substance Use Topics Alcohol use: Yes Comment: occasional Drug use: No Review of Symptoms REVIEW OF SYSTEMS GENERAL: No weight loss, malaise or fevers HEENT: Negative for frequent or significant headaches, No changes in hearing or vision, no nose bleeds or other nasal problems NECK: Negative for lumps, goiter, pain and significant neck swelling RESPIRATORY: Negative for cough, hemoptysis, some increased wheezing, COPD, dyspnea or shortness of breath. Has a PFT and 6 min walk test to complete for Pulm in Oct. CARDIOVASCULAR: Negative for increased leg swelling, hypertension, CHF. She has not had the chest pain like she had when she went into the hospital on Sat. Still getting palpitations. Waiting on halter report from cardio. GI: No vomiting, or diarrhea, No heartburn or reflux symptoms, and no blood. Nausea not any worse. : No history of dysuria, frequency or blood. Has had urgency and incontinence since having a cath in the hospital. MUSCULOSKELETAL: Negative for new or changes in her typical joint pain or swelling, back pain or muscle pain. Would like to see Dr. Krause. SKIN: Negative for lesions, rash, and itching PSYCH: . Trazodone not as helpful with the leg pains she has. mood disorder and recent psychosocial stressors. HEMATOLOGY/LYMPHOLOGY: Negative for prolonged bleeding, bruising easily or swollen nodes ENDOCRINE: Negative for cold or heat intolerance, polyuria, polydipsia and goiter NEURO: No history of headaches, syncope, paralysis, seizures or increased tremors EXAM: BP 144/84 (BP Site: Right Arm, BP Position: Sitting, BP Cuff Size: Regular Adult) Pulse 82 Ht 170.2 cm (5' 7 ) Wt 102.1 kg (225 lb) LMP 12/03/2006 BMI 35.24 kg/m BP 140/50 Pulse 82 Ht 170.2 cm (5' 7 ) Wt 102.1 kg (225 lb) LMP 12/03/2006 BMI 35.24 kg/m BP while she was in the hospital was ok. Last 5 Encounter Wt Readings: Date: Wt: 09/25/2022 102.1 kg (225 lb) 06/02/2022 97.1 kg (214 lb) 04/29/2022 98.4 kg (217 lb) 03/28/2022 97.5 kg (215 lb) 03/24/2022 97.5 kg (215 lb) General Appearance: Well appearing, alert, in no acute distress, well-hydrated, well nourished. and Obese. Skin: Skin color, texture, turgor normal, no suspicious rashes or lesions. Head: Normocephalic, no masses, lesions, tenderness or abnormalities. Eyes: Anicteric sclera. Pupils are equally round and reactive to light. Extraocular movements are intact. . Ears: External ears, TM's normal, canals clear. Nose/Sinuses: Nares normal, septum midline, mucosa normal, no drainage or sinus tenderness. Oropharynx: Lips, mucosa, and tongue normal, teeth and gums normal, oropharynx normal. Neck: Supple, no adenopathy; thyroid symmetric, normal size, no bruits. Lungs: Lungs clear to auscultation. No wheezing, rhonchi, rales.. Heart: RRR without murmur, gallop, or rubs. No ectopy. Abdomen: Normal abdominal exam, Abdomen soft, non-tender. Bowel sounds normal. No masses, organomegaly. Extremities: No deformities, edema, skin discoloration, Good capillary refill. . Musculoskeletal: Spine range of motion normal. Muscular strength intact, No joint swelling, deformity, or tenderness. Peripheral Pulses: Normal. Neurologic: Gait normal. Reflexes normal and symmetric. Sensation to light touch and crainal nerves 2-12 intact.. Health Maintenance List MENINGOCOCCAL B: Consider based on risk(1 of 4 - Increased Risk) Never done MMR(1 of 2 - Risk 2-dose series) Never done BP CONTROLLED (<130/80) Never done HEPATITIS A(1 of 2 - Risk 2-dose series) Never done SHINGRIX VACCINE(1 of 2) Never done HEMOGLOBIN/HEMATOCRIT due on 04/30/2022 HBA1C due on 09/01/2022 COVID-19 VACCINE(3 - Pfizer series) due on 03/28/2023 INFLUENZA(1) due on 10/17/2022 SERUM CREATININE due on 11/18/2022 LDL CHOLESTEROL due on 03/28/2023 ANNUAL PCP TEAM CHRONIC DISEASE VISIT due on 04/30/2023 MAMMOGRAM due on 05/28/2023 DILATED RETINAL EXAM due on 05/31/2023 DIABETIC FOOT EXAM due on 06/03/2023 DTAP,TDAP,TD(2 - Td or Tdap) due on 01/16/2026 COLORECTAL CANCER SCREENING due on 01/22/2031 PNEUMOCOCCAL(4 - PPSV23 or PCV20) due on 06/24/2036 HEPATITIS C SCREENING Completed HIV SCREENING Completed URINE ALBUMIN:CREATININE RATIO Discontinued PAP TESTING Discontinued HPV TESTING Discontinued Data reviewed A/P ASSESSMENT/PLAN: 1. Well adult exam - ICD9: V70.0, ICD10: Z00.00 (primary diagnosis) - Counseled on healthy diet and regular exercise - Calcium intake with supplements or by diet of 1000 mg/day for under 50, 9498-2480 mg/day for 50+ - Patient was counseled [id number] by myself (the billing provider) for the following immunizations and vaccine components, including side effects: Hep A Vaccine and Hep B Vaccine. Patient consents for immunization and understands risks and benefits. A VIS sheet on each immunization was given to the patient. - Follow up for annual exam in one year 2. 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, with long-term current use of insulin, macular edema presence unspecified, unspecified laterality, unspecified proliferative retinopathy* (HCC) - ICD9: 250.50, 362.02, V58.67, ICD10: E11.3599, Z79.4 - seeing optho. Check - COMP METABOLIC PANEL - HGB A1C - URINALYSIS, WITH MICROSCOPIC - LIPID PANEL, NONFASTING - CBC + DIFF 3. Type 2 diabetes mellitus with proteinuria (HCC) - ICD9: 250.40, 791.0, ICD10: E11.29, R80.9 Management per endo Check - COMP METABOLIC PANEL - HGB A1C - URINALYSIS, WITH MICROSCOPIC - LIPID PANEL, NONFASTING - CBC + DIFF 4. 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 2 diabetes mellitus (HCC) - ICD9: 250.40, 791.0, ICD10: E11.29, R80.9 - management per Endo and renal 5. Diabetic polyneuropathy - ICD9: 250.60, 357.2, V58.67, ICD10: E11.42, Z79.4 - cont current TX. 6. Hypertension - ICD9: 401.9, ICD10: I10 - Controlled: was good in hospital the past 3 days. Will not make any changes at this time. - Continue current medications - Recommend home blood pressure monitoring, to bring results to next visit - Encouraged sodium restriction, DASH or Mediterranean diet - Recommend regular aerobic exercise - COMP METABOLIC PANEL - URINALYSIS, WITH MICROSCOPIC - LIPID PANEL, NONFASTING 7. Mixed hyperlipidemia - ICD9: 272.2, ICD10: E78.2 - await labs - Continue current medications - Counseled on healthy diet and regular exercise Check - COMP METABOLIC PANEL - URINALYSIS, WITH MICROSCOPIC - LIPID PANEL, NONFASTING 8. AYESHA (generalized anxiety disorder) - ICD9: 300.02, ICD10: F41.1 - cont current Tx. 9. Major depressive disorder in full remission, unspecified whether recurrent (HCC) - ICD9: 296.26, ICD10: F32.5 - cont current Tx. 10. CKD (chronic kidney disease) stage 5, GFR less than 15 ml/min (HCC) - ICD9: 585.5, ICD10: N18.5 Seeing renal check - COMP METABOLIC PANEL - URINALYSIS, WITH MICROSCOPIC - CBC + DIFF 11. Hyperparathyroidism, secondary renal (HCC) - ICD9: 588.81, ICD10: N25.81 - management per renal 12. Obstructive sleep apnea - ICD9: 327.23, ICD10: G47.33 - management per Pulm 13. Mild persistent asthma without complication - ICD9: 493.90, ICD10: J45.30 - as per #12 14. Hypoxia - ICD9: 799.02, ICD10: R09.02 - as per #12 15. Gastroesophageal reflux disease without esophagitis - ICD9: 530.81, ICD10: K21.9 - Continue treatment with Prilosec 40 mg every day check - VITAMIN B12 BLOOD - MAGNESIUM BLD 16. Crohn's disease of small intestine with complication (HCC) - ICD9: 555.0, ICD10: K50.019 - management per GI 17. Cirrhosis of liver without ascites, unspecified hepatic cirrhosis type (HCC) - ICD9: 571.5, ICD10: K74.60 - as per #16 Check - COMP METABOLIC PANEL - MUMPS IGG AB - RUBEOLA (MEASLES)IGG - RUBELLA IGG AB 18. HINTON (nonalcoholic steatohepatitis) - ICD9: 571.8, ICD10: K75.81 As per #16 Check - COMP METABOLIC PANEL - MUMPS IGG AB - RUBEOLA (MEASLES)IGG - RUBELLA IGG AB 19. Diabetic gastroparesis (HCC) - ICD9: 250.60, 536.3, ICD10: E11.43, K31.84 - management per GI 20. Leg edema, right - ICD9: 782.3, ICD10: R60.0 - stable 21. Sjoegren syndrome (HCC) - ICD9: 710.2, ICD10: M35.00 - stable no issues 22. Lupus (HCC) - ICD9: 710.0, ICD10: M32.9 - was told by Rheum she does not have this. 23. PVC's (premature ventricular contractions) - ICD9: 427.69, ICD10: I49.3 - management per cardio 24. Fibromyalgia - ICD9: 729.1, ICD10: M79.7 - stable 25. Hypomagnesemia - ICD9: 275.2, ICD10: E83.42 Check - MAGNESIUM BLD 26. Essential tremor - ICD9: 333.1, ICD10: G25.0 - stable no changes. 27. Iron deficiency anemia, unspecified iron deficiency anemia type - ICD9: 280.9, ICD10: D50.9 Check - CBC + DIFF - IRON + TIBC - cont hematology f/u 28. Chronic lymphadenitis - ICD9: 289.1, ICD10: I88.1 - management per hematology 29. Low serum vitamin B12 - ICD9: 266.2, ICD10: E53.8 Check - VITAMIN B12 BLOOD - CBC + DIFF 30. Obesity, Class I, BMI 30-34.9 - ICD9: 278.00, ICD10: E66.9 Weight increasing - Behavioral intervention 31. Psychophysiological insomnia - ICD9: 307.42, ICD10: F51.04 - cont trazodone 32. Pulmonary HTN (HCC) - ICD9: 416.8, ICD10: I27.20 - seeing pulm 33. Vitamin D deficiency - ICD9: 268.9, ICD10: E55.9 Check - VITAMIN D 25 HYDROXY 34. Chronic pain syndrome - ICD9: 338.4, ICD10: G89.4 - CONSULT TO PAIN MGT: Dr. Krause in [place] 35. DDD (degenerative disc disease), lumbar - ICD9: 722.52, ICD10: M51.36 - CONSULT TO PAIN MGT 36. Spinal stenosis, lumbosacral region - ICD9: 724.02, ICD10: M48.07 - CONSULT TO PAIN MGT 37. Multiple thyroid nodules - ICD9: 241.1, ICD10: E04.2 Check - TSH BLD 38. History of CVA (cerebrovascular accident) - ICD9: V12.54, ICD10: Z86.73 - no active issues. 39. Urgency incontinence - ICD9: 788.31, ICD10: N39.41 Check - URINALYSIS, WITH MICROSCOPIC 40. Medication management - ICD9: V58.69, ICD10: Z79.899 Check - VITAMIN B12 BLOOD - MAGNESIUM BLD 41. S/P BKA (below knee amputation) unilateral, left (HCC) - ICD9: V49.75, ICD10: Z89.512 - stable Requested Prescriptions Signed Prescriptions Disp Refills traZODone (DESYREL) 150 mg tablet 90 tablet 1 Sig: Take 1 tablet by mouth daily at bedtime. F/u 6 months routine I spent a total of 73 minutes on the date of the service which included preparing to see the patient, [id number] patient care, completing clinical documentation, performing a medically appropriate examination, counseling and educating the patient/family/caregiver and ordering medications, tests, or procedures. Johann Peters MD documented in this encounter [facility] 09-23-2022 Note HNO ID: [id number] Author: Gem Guerrero LPN Service: ? Author Type: ? Type: Progress Notes Filed: 09/23/2022 8:32 PM Note Text: Scan on 09/22/2022 2:49 PM by ProviderVinod PA-C: Stress Test [facility] 09-23-2022 History of Present illness Narrative Scan on 09/22/2022 2:49 PM by ProviderVinod PA-C: Stress Test documented in this encounter [facility] 09-05-2022 Note HNO ID: [id number] Author: Gem Guerrero LPN Service: ? Author Type: ? Type: Progress Notes Filed: 09/06/2022 2:09 PM Note Text: Scan on 09/04/2022 4:50 PM by Vinod De Leon PA-C: Miscellaneous Procedures Scan on 09/04/2022 2:52 PM by Vinod De Leon PA-C: Microbiology [facility] 09-04-2022 Note HNO ID: [id number] Author: Summer Bravo MA Service: ? Author Type: Basket Hand Weaver Type: Progress Notes Filed: 09/06/2022 1:51 PM Note Text: Scan on 09/03/2022 2:00 PM by Vinod De Leon PA-C: Consultation - Hematology/Oncology Summer Bravo MA [facility] 09-03-2022 Note HNO ID: [id number] Author: Eli Smith LPN Service: ? Author Type: ? Type: Progress Notes Filed: 09/03/2022 10:29 AM Note Text: Scan on 09/01/2022 5:35 PM by Vinod De Leon PA-C: Miscellaneous Lab Scan on 09/01/2022 6:06 PM by Vinod De Leon PA-C: Miscellaneous Lab Scan on 09/02/2022 9:09 AM by Vinod De Leon PA-C: Miscellaneous Lab Scan on 09/02/2022 9:12 AM by Vinod De Leon, PA-C: Miscellaneous Lab Scan on 09/02/2022 4:37 PM by ProviderVinod, PA-C: Miscellaneous Lab Scan on 09/02/2022 4:40 PM by Provider External PA-C: Miscellaneous Lab Scan on 09/03/2022 9:43 AM by ProviderVinod PA-C: Miscellaneous Lab Scan on 09/03/2022 9:32 AM by ProviderVinod PA-C: Consultation - Nephrology/Renal [facility] 07-19-2023 Note HNO ID: [id number] Author: Eli Smith LPN Service: ? Author Type: ? Type: Progress Notes Filed: 09/03/2022 9:49 AM Note Text: Scan on 09/02/2022 4:23 PM by ProviderVinod PA-C: Consultation - Cardiology [facility] 09-03-2022 History of Present illness Narrative Scan on 09/01/2022 5:35 PM by Vinod De Leon PA-C: Miscellaneous Lab Scan on 09/01/2022 6:06 PM by Vinod De Leon PA-C: Miscellaneous Lab Scan on 09/02/2022 9:09 AM by Vinod De Leon PA-C: Miscellaneous Lab Scan on 09/02/2022 9:12 AM by Vinod De Leon PA-C: Miscellaneous Lab Scan on 09/02/2022 4:37 PM by Vinod De Leon PA-C: Miscellaneous Lab Scan on 09/02/2022 4:40 PM by Vinod De Leon PA-C: Miscellaneous Lab Scan on 09/03/2022 9:43 AM by Vinod De Leon PA-C: Miscellaneous Lab Scan on 09/03/2022 9:32 AM by Viond De Leon PA-C: Consultation - Nephrology/Renal documented in this encounter [facility] 09-03-2022 History of Present illness Narrative Scan on 09/02/2022 4:23 PM by Vinod De Leon PA-C: Consultation - Cardiology documented in this encounter [facility] 08-08-2022 Miscellaneous Notes The following approved medication requests have been transmitted electronically. Requested Prescriptions Signed Prescriptions Disp Refills omeprazole (PRILOSEC) 40 mg capsule 90 capsule 1 Sig: Take 1 capsule by mouth once daily. Authorizing Provider: JOHANN PETERS MD Last office visit: 04/29/22 F/u scheduled: 09/25/22 Kaye Dover Ma documented in this encounter [facility] 08-08-2022 Note HNO ID: [id number] Author: Gem Guerrero LPN Service: ? Author Type: ? Type: Progress Notes Filed: 08/09/2022 8:43 AM Note Text: Scan on 08/06/2022 2:04 PM by External Provider, PA-C: Consultation - Hematology/Oncology [facility] 08-08-2022 History of Present illness Narrative Scan on 08/06/2022 2:04 PM by External Provider, PA-C: Consultation - Hematology/Oncology documented in this encounter [facility] 08-07-2022 Miscellaneous Notes Dosage confirmed with pt. Gem Guerrero LPN Please clarify dosing of metoprolol. There were some changes over the past couple months. But looks like cardiology wanted her back on twice a day dose. Can you please confirm. Rosie Somers PA-C Last office visit: 04/29/22 F/u scheduled: 09/25/22 Kaye Dover Ma documented in this encounter [facility] 08-04-2022 Note HNO ID: [id number] Author: Summer Bravo MA Service: ? Author Type: Basket Hand Weaver Type: Progress Notes Filed: 08/04/2022 1:06 PM Note Text: Scan on 07/30/2022 4:40 PM by External Provider, PA-C: Consultation - Cardiology Summer Bravo MA [facility] 08-04-2022 History of Present illness Narrative Scan on 07/30/2022 4:40 PM by External Provider, PA-C: Consultation - Cardiology Summer Bravo MA documented in this encounter [facility] 07-09-2022 Note HNO ID: [id number] Author: Gem Guerrero LPN Service: ? Author Type: ? Type: Progress Notes Filed: 07/09/2022 2:52 PM Note Text: Scan on 07/09/2022 11:05 AM by External Provider, PA-C: Chemistry Scan on 07/09/2022 10:50 AM by External Provider, PA-C: Hematology Scan on 07/09/2022 12:45 PM by External Provider, PA-C: Consultation - Hematology/Oncology [facility] 07-04-2022 Note HNO ID: [id number] Author: Summer Bravo MA Service: ? Author Type: Basket Hand Weaver Type: Progress Notes Filed: 07/06/2022 5:47 PM Note Text: Scan on 07/02/2022 10:05 AM by External Provider, PA-C: Hematology Scan on 07/02/2022 10:34 AM by External Provider, PA-C: Chemistry Scan on 07/03/2022 7:38 AM by External Provider, PA-C: Chemistry Scan on 07/03/2022 9:07 AM by External Provider, PA-C: Chemistry Scan on 07/03/2022 4:42 PM by External Provider, PA-C: X-ray Scan on 07/03/2022 8:03 PM by External Provider, PA-C: CT Scan Summer Bravo MA [facility] 06-26-2022 Note HNO ID: [id number] Author: Summer Bravo MA Service: ? Author Type: Basket Hand Weaver Type: Progress Notes Filed: 06/28/2022 5:22 PM Note Text: Scan on 06/16/2022 10:34 AM by External Provider, PA-C: Hematology Scan on 06/16/2022 11:09 AM by External Provider, PA-C: Chemistry Scan on 06/16/2022 6:50 PM by External Provider, PA-C: Ultrasound Scan on 06/16/2022 6:51 PM by External Provider, PA-C: Ultrasound Scan on 06/19/2022 2:29 AM by External Provider, PA-C: Ultrasound Scan on 06/19/2022 2:30 AM by External Provider, PA-C: Ultrasound Scan on 06/20/2022 9:41 AM by External Provider, PA-C: Discharge Summary Scan on 06/20/2022 9:46 AM by External Provider, PA-C: Consultation - General Surgery Scan on 06/20/2022 10:11 AM by External Provider, PA-C: Chemistry Scan on 06/20/2022 11:54 AM by External Provider, PA-C: Miscellaneous Procedures Scan on 06/23/2022 8:20 AM by External Provider, PA-C: Miscellaneous Correspondence Summer Bravo MA [facility] 06-26-2022 History of Present illness Narrative Scan on 06/16/2022 10:34 AM by External Provider, PA-C: Hematology Scan on 06/16/2022 11:09 AM by External Provider, PA-C: Chemistry Scan on 06/16/2022 6:50 PM by External Provider, PA-C: Ultrasound Scan on 06/16/2022 6:51 PM by External Provider, PA-C: Ultrasound Scan on 06/19/2022 2:29 AM by External Provider, PA-C: Ultrasound Scan on 06/19/2022 2:30 AM by External Provider, PA-C: Ultrasound Scan on 06/20/2022 9:41 AM by External Provider, PA-C: Discharge Summary Scan on 06/20/2022 9:46 AM by External Provider, PA-C: Consultation - General Surgery Scan on 06/20/2022 10:11 AM by External Provider, PA-C: Chemistry Scan on 06/20/2022 11:54 AM by External Provider, PA-C: Miscellaneous Procedures Scan on 06/23/2022 8:20 AM by External Provider, PA-C: Miscellaneous Correspondence Summer Bravo MA documented in this encounter [facility] 06-12-2022 Note HNO ID: [id number] Author: Gem Guerrero LPN Service: ? Author Type: ? Type: Progress Notes Filed: 06/12/2022 2:53 PM Note Text: Scan on 06/11/2022 11:53 AM by External Provider, PA-C: Consultation - Hematology/Oncology [facility] 06-12-2022 History of Present illness Narrative Scan on 06/11/2022 11:53 AM by External Provider, PA-C: Consultation - Hematology/Oncology documented in this encounter [facility] 06-09-2022 Note HNO ID: [id number] Author: Summer Bravo MA Service: ? Author Type: Basket Hand Weaver Type: Progress Notes Filed: 06/09/2022 2:00 PM Note Text: Scan on 06/06/2022 9:22 AM by External Provider: Consultation - General Surgery Summer Bravo MA [facility] 06-04-2022 Miscellaneous Notes Forms faxed, Transmission ok CLOSED OK to send. Form on docs desk/basket for review from [employer] Please review and sign. Needs to be faxed to documented in this encounter [facility] 06-04-2022 Note HNO ID: [id number] Author: Summer Bravo MA Service: ? Author Type: Basket Hand Weaver Type: Progress Notes Filed: 06/04/2022 6:42 PM Note Text: Scan on 05/29/2022 2:31 PM by External Provider: Ultrasound Scan on 05/30/2022 2:32 PM by External Provider: Consultation - Ophthalmology Summer Bravo MA [facility] 06-04-2022 History of Present illness Narrative Scan on 05/29/2022 2:31 PM by External Provider: Ultrasound Scan on 05/30/2022 2:32 PM by External Provider: Consultation - Ophthalmology Summer Bravo MA documented in this encounter [facility] 06-02-2022 Note HNO ID: [id number] Author: Migel Wang MD Service: ? Author Type: Physician Type: Progress Notes Filed: 06/03/2022 2:13 PM Note Text: Follow-up 51 year-old female, patient of Dr. Johann Peters, with insulin-requiring type 2 diabetes mellitus since 1999, SLE, diabetic neuropathy, diabetic retinopathy, right eye blindness, mixed hyperlipidemia, CKD4. Complicated past medical history. Continues U-500 insulin via insulin pump Still uses Novolog for correction of hyperglycemia, uses insulin sensitivity index 1:2. Pt denies difficulty with insulin injections or self monitoring of blood sugar. No signs of irritation or infection at site of injections. Is taking the insulin as prescribed. Has been monitoring more consistently, checking 6x daily. History of diabetic gastroparesis. She has had left BKA and right TMA, but is ambulating well. Has leg prosthesis (L) and insert for shoe on right foot. Had COVID vaccine. Had diabetic eye exam in 05/2022 Recently diagnosed with Crohn disease, says kidney function worse. Has anemia due to renal disease. Her trade analyst is Dr. Emily Gandhi. She is looking for renal transplant program. Says recent creatinine clearance was 14. Has had vein mapping done, will be getting fistula done soon. Audible Magictronic 630G insulin pump with Humulin RU500 insulin at the following insulin pump settings: Basal rate 2.2 'pump units' per hour Bolus: Insulin:carb ratio 1:7 Sensitivity 1:30 Blood glucose target 00:00= 90-140 Insulin duration= 5 Current Outpatient Medications on File Prior to Visit Medication Sig calcitriol (ROCALTROL) 0.25 mcg capsule Take 1 capsule by mouth once daily. Per Renal, Dr. Gandhi metoprolol tartrate, short acting, (LOPRESSOR) 100 mg tablet Take 1 tablet by mouth once daily. Changed to every day dosing per Hematology 04/2022 DULoxetine (CYMBALTA) 60 mg capsule Take 1 capsule by mouth once daily. traZODone (DESYREL) 150 mg tablet Take 1 tablet by mouth daily at bedtime. Fenofibrate (LOFIBRA) 160 mg tablet Take 1 tablet by mouth once daily. gabapentin (NEURONTIN) 800 mg tablet Take 1 tablet by mouth three times daily for 180 days. insulin regular human, CONCENTRATED 500 UNIT/ML, (HUMULIN R) 500 unit/mL soln INFUSE UP TO 2,000 UNITS DAILY VIA INSULIN PUMP rosuvastatin (CRESTOR) 40 mg tablet Take 1 tablet by mouth daily at bedtime. risankizumab-rzaa (SKYRIZI INTRAVENOUS) Inject intravenously. Infusions at [facility] ferrous sulfate 325 mg (65 mg iron) tablet Take 325 mg by mouth three times daily. tramadol HCl (TRAMADOL ORAL) Take 50 mg by mouth three times daily as needed. epoetin regan-epbx (RETACRIT) 20,000 unit/2 mL injection Inject 20,000 Units subcutaneously once every month. PRN if hgb is under 10 omeprazole (PRILOSEC) 40 mg capsule Take 1 capsule by mouth once daily. Mesalamine (PENTASA) 500 mg CR capsule Take 1,000 mg by mouth twice daily. diphenoxylate-atropine (LOMOTIL) 2.5-0.025 mg per tablet Take 1 tablet by mouth four times daily as needed. ergocalciferol 50,000 unit capsule (VITAMIN D2, DRISDOL) Take 1 capsule by mouth three times a week. blood sugar diagnostic (CONTOUR NEXT TEST STRIPS) test strip Use to test glucose 6 times daily as directed. DX: E11.8, E11.65, Z79.4, insulin pump dependent. Lancets lancets Use to test blood glucose 6 times daily. ondansetron (ZOFRAN) 8 mg tablet Take 1 tablet by mouth every 12 hours as needed for nausea/vomiting. insulin aspart U-100 (NOVOLOG FLEXPEN U-100 INSULIN) 100 unit/mL (3 mL) INJECT SUBCUTANEOUS THREE TIMES DAILY WITH MEALS PER SSI. TDD: 200 UNITS Yhgbz-8-FRX-EPA-Fish Oil (FISH OIL) 1,000 mg (120 mg-180 mg) cap Take 1 capsule by mouth once daily. cyanocobalamin (VITAMIN B-12) 1,000 mcg tab Take 1 tablet by mouth once daily. insulin needles, DISPOSABLE, (PEN NEEDLE) 31 gauge x 5/16 Use as directed 2 times daily, on insulin, E11.42 albuterol HFA (PROAIR HFA) 90 mcg/actuation inhaler Inhale 2 Puffs as instructed every 4 hours as needed for Wheezing/Shortness of Breath. DULoxetine (CYMBALTA) 30 mg capsule Take 1 capsule by mouth once daily. Nebulizer Accessories mis Nebulizer mask Dx: J45.30 Nebulizer Accessories misc Filter Dx: J45.30 albuterol (PROVENTIL) 2.5 mg /3 mL (0.083 %) nebulizer solution Inhale by nebulizer over 5-15 minutes three (3) to four (4) times a day as needed for wheezing and shortness of breath hydrOXYzine pamoate (VISTARIL) 50 mg capsule Take 1 capsule by mouth three times daily as needed for Anxiety (Restlessness). magnesium oxide (MAG-OX) 400 mg (241.3 mg magnesium) tablet Take 1 tablet by mouth once daily. blood-glucose meter, wireless (CONTOUR NEXT LINK) kit Use as directed to test blood glucose. COMPOUNDED PRESCRIPTION Oxygen at 2 L with CPAP at night and PRN during the day ALLERGIES Allergen Reactions Environmental Aller* Unknown Cockroaches, dust mites, maple trees Lipitor [Atorvasta (more content not included)... [facility] 05-28-2022 Miscellaneous Notes Pt called and is notified of providers results. Pt voices understanding. Sarah Vu RN Let patient know mammo was ok. documented in this encounter [facility] 05-28-2022 Note HNO ID: [id number] Author: Gem Guerrero LPN Service: ? Author Type: ? Type: Progress Notes Filed: 05/28/2022 3:37 PM Note Text: Scan on 05/27/2022 2:09 PM by External Provider: Miscellaneous Lab [facility] 05-28-2022 Miscellaneous Notes May 29, 2022 PID: [id number] Wendy Lux [id number] [place] [address] Dear Ms. Lux, We are pleased to inform you that the results of your recent breast imaging exam on 05/27/2022 are normal. Early detection of cancer is very important. We also understand recommendations regarding breast cancer screening are controversial. Please discuss with your primary care provider which strategy is best for you and whether a mammogram is right for you. Your imaging studies and report will be kept on file at [facility] as part of your permanent medical record and are available for your continuing care. Thank you for allowing us to help in meeting your health care needs. Sincerely, Dr. [place] Interpreting Radiologist [facility] (Normal over 40) documented in this encounter [facility] 05-28-2022 History of Present illness Narrative Scan on 05/27/2022 2:09 PM by External Provider: Miscellaneous Lab documented in this encounter [facility] 05-27-2022 Note HNO ID: [id number] Author: RT Padma(R) Service: ? Author Type: Technologist Type: Progress Notes Filed: 05/27/2022 1:26 PM Note Text: Radiology Service Progress Note PATIENT NAME: Wendy Lux DATE OF SERVICE: May 27, 2022 TIME: 1:25 PM PATIENT IDENTITY VERIFICATION COMPLETED USING TWO (2) IDENTIFIERS: Name and Date of confirmed by patient verbally. FALL SCREENING: Has the patient had 2 falls in the last year or 1 fall with injury or currently using an Ambulatory Assistive Device (Walker, Cane, Wheelchair, Crutches, etc.)? No PATIENT GENDER DATA: Female. status: : No status: NO. PATIENT RELEVANT IMPLANT DATA REVIEWED: Not Applicable RADIOLOGY DEPARTMENT: Mammography PERIPHERAL IV DATA: Not applicable SIGNED BY: RT Padma(R) May 27, 2022 1:25 PM [facility] 05-27-2022 Note HNO ID: [id number] Author: Gem Guerrero LPN Service: ? Author Type: ? Type: Progress Notes Filed: 05/27/2022 7:53 PM Note Text: Scan on 05/27/2022 12:07 PM by External Provider: Consultation - Nephrology/Renal [facility] 05-27-2022 History of Present illness Narrative Radiology Service Progress Note PATIENT NAME: Wendy Lux DATE OF SERVICE: May 27, 2022 TIME: 1:25 PM PATIENT IDENTITY VERIFICATION COMPLETED USING TWO (2) IDENTIFIERS: Name and Date of confirmed by patient verbally. FALL SCREENING: Has the patient had 2 falls in the last year or 1 fall with injury or currently using an Ambulatory Assistive Device (Walker, Cane, Wheelchair, Crutches, etc.)? No PATIENT GENDER DATA: Female. status: : No status: NO. PATIENT RELEVANT IMPLANT DATA REVIEWED: Not Applicable RADIOLOGY DEPARTMENT: Mammography PERIPHERAL IV DATA: Not applicable SIGNED BY: RT Padma(R) May 27, 2022 1:25 PM documented in this encounter [facility] 05-27-2022 History of Present illness Narrative Scan on 05/27/2022 12:07 PM by External Provider: Consultation - Nephrology/Renal documented in this encounter [facility] 05-15-2022 Note HNO ID: [id number] Author: Summer Bravo MA Service: ? Author Type: Basket Hand Weaver Type: Progress Notes Filed: 05/15/2022 10:04 PM Note Text: Scan on 05/14/2022 2:30 PM by External Provider: Consultation - Hematology/Oncology Summer Bravo MA [facility] 05-15-2022 History of Present illness Narrative Scan on 05/14/2022 2:30 PM by External Provider: Consultation - Hematology/Oncology Summer Bravo MA documented in this encounter [facility] 05-08-2022 Note HNO ID: [id number] Author: Summer Bravo MA Service: ? Author Type: Basket Hand Weaver Type: Progress Notes Filed: 05/08/2022 11:26 AM Note Text: Scan on 05/07/2022 12:34 PM by External Provider: Hematology Summer Bravo MA [facility] 05-08-2022 History of Present illness Narrative Scan on 05/07/2022 12:34 PM by External Provider: Hematology Summer Bravo MA documented in this encounter [facility] 05-07-2022 Note Patient Outreach (IN TMMN) WENDY LUX ([id number]) 1970 F Date Time Provider Department 05/07/22 JOHANN PETERS During your visit today, we recorded the following information about you: Allergies As of Date: 05/07/2022 Noted Allergy Reaction Environmental allergies [Other] 12/16/2005 16 - Unknown Comments: Cockroaches, dust mites, maple trees LIPITOR (ATORVASTATIN CALCIUM) 09/17/2015 8 - GI Upset Comments: June of contributed to vomiting METFORMIN 03/17/2018 14 - Other: See Comments Comments: Renal impairment PERCOCET (OXYCODONE-ACETAMINOPHEN) 5 11 - Vomiting PLAQUENIL (HYDROXYCHLOROQUINE SUL*03/17/2018 14 - Other: See Comments Comments: Due to current level of eye damage Date Reviewed: 04/29/2022 Reviewed by: Kristina Torres LPN - Fully Assessed Visit Diagnosis:Encounter for screening mammogram for breast cancer [Z12.31] Order(s):[facility] SCREENING [[id number]] Order #: [id number] FUTURE Prescriptions as of 05/12/2022 - DULoxetine (CYMBALTA) 60 mg capsule Take 1 capsule by mouth once daily. - traZODone (DESYREL) 150 mg tablet Take 1 tablet by mouth daily at bedtime. - Fenofibrate (LOFIBRA) 160 mg tablet Take 1 tablet by mouth once daily. - gabapentin (NEURONTIN) 800 mg tablet Take 1 tablet by mouth three times daily for 180 days. - insulin regular human, CONCENTRATED 500 UNIT/ML, (HUMULIN R) 500 unit/mL soln INFUSE UP TO 2,000 UNITS DAILY VIA INSULIN PUMP - rosuvastatin (CRESTOR) 40 mg tablet Take 1 tablet by mouth daily at bedtime. - finerenone (KERENDIA) 10 mg tablet Take 10 mg by mouth once daily. Dr Gandhi - risankizumab-rzaa (SKYRIZI INTRAVENOUS) Inject intravenously. Infusions at [facility] - DOXYCYCLINE HYCLATE ORAL Take 100 mg by mouth twice daily. - ferrous sulfate 325 mg (65 mg iron) tablet Take 325 mg by mouth three times daily. - tramadol HCl (TRAMADOL ORAL) Take 50 mg by mouth three times daily as needed. - epoetin regan-epbx (RETACRIT) 20,000 unit/2 mL injection Inject 20,000 Units subcutaneously once every month. PRN if hgb is under 10 - metoprolol tartrate, short acting, (LOPRESSOR) 100 mg tablet Take 1 tablet by mouth twice daily. - omeprazole (PRILOSEC) 40 mg capsule Take 1 capsule by mouth once daily. - Mesalamine (PENTASA) 500 mg CR capsule Take 1,000 mg by mouth twice daily. - diphenoxylate-atropine (LOMOTIL) 2.5-0.025 mg per tablet Take 1 tablet by mouth four times daily as needed. - hyoscyamine (LEVSIN) 0.125 mg tablet Take 0.125 mg by mouth every 4 hours as needed. - ergocalciferol 50,000 unit capsule (VITAMIN D2, DRISDOL) Take 1 capsule by mouth three times a week. - blood sugar diagnostic (CONTOUR NEXT TEST STRIPS) test strip Use to test glucose 6 times daily as directed. DX: E11.8, E11.65, Z79.4, insulin pump dependent. - Lancets lancets Use to test blood glucose 6 times daily. - ondansetron (ZOFRAN) 8 mg tablet Take 1 tablet by mouth every 12 hours as needed for nausea/vomiting. - insulin aspart U-100 (NOVOLOG FLEXPEN U-100 INSULIN) 100 unit/mL (3 mL) INJECT SUBCUTANEOUS THREE TIMES DAILY WITH MEALS PER SSI. TDD: 200 UNITS - Ppvka-8-RBY-EPA-Fish Oil (FISH OIL) 1,000 mg (120 mg-180 mg) cap Take 1 capsule by mouth once daily. - cyanocobalamin (VITAMIN B-12) 1,000 mcg tab Take 1 tablet by mouth once daily. - fluticasone-vilanterol (BREO ELLIPTA) 200-25 mcg/dose inhaler Inhale 1 Inhalation as instructed once daily. - insulin needles, DISPOSABLE, (PEN NEEDLE) 31 gauge x 5/16 Use as directed 2 times daily, on insulin, E11.42 - albuterol HFA (PROAIR HFA) 90 mcg/actuation inhaler Inhale 2 Puffs as instructed every 4 hours as needed for Wheezing/Shortness of Breath. - DULoxetine (CYMBALTA) 30 mg capsule Take 1 capsule by mouth once daily. - Nebulizer Accessories mis Nebulizer mask Dx: J45.30 - Nebulizer Accessories misc Filter Dx: J45.30 - albuterol (PROVENTIL) 2.5 mg /3 mL (0.083 %) nebulizer solution Inhale by nebulizer over 5-15 minutes three (3) to four (4) times a day as needed for wheezing and shortness of breath - hydrOXYzine pamoate (VISTARIL) 50 mg capsule Take 1 capsule by mouth three times daily as needed for Anxiety (Restlessness). - magnesium oxide (MAG-OX) 400 mg (241.3 mg magnesium) tablet Take 1 tablet by mouth once daily. - blood-glucose meter, wireless (CONTOUR NEXT LINK) kit Use as directed to test blood glucose. - COMPOUNDED PRESCRIPTION Oxygen at 2 L with CPAP at night and PRN during the day Problem List As Of Date 05/07/2022 Noted Resolved Abdominal pain, generalized [R10.84] 06/30/2019 Irritable bowel syndrome [K58.9] 02/12/2005 06/30/2019 Diarrhea [R19.7] 04/09/2005 06/30/2019 Internal hemorrhoids without mention of complic*04/09/2005 06/30/2019 Nonspecific elevation of levels of transaminase* 03/07/2015 Abdominal pain, right lower quadrant [R10.31] 02/05/2006 06/30/2019 (more content not included)... [facility] 05-03-2022 Note HNO ID: [id number] Author: Summer Bravo MA Service: ? Author Type: Basket Hand Weaver Type: Progress Notes Filed: 05/03/2022 8:27 PM Note Text: Scan on 04/30/2022 4:12 PM by External Provider: Hematology Summer Bravo MA [facility] 05-03-2022 History of Present illness Narrative Scan on 04/30/2022 4:12 PM by External Provider: Hematology Summer Bravo MA documented in this encounter [facility] 04-29-2022 Note HNO ID: [id number] Author: Rosie Somers PA-C Service: ? Author Type: Physician Loss Prevention/Safety District Manager Type: Progress Notes Filed: 04/29/2022 10:42 AM Note Text: Chief Complaint Patient presents with: Follow Up: BP 03/28/22 HPI Wendy Lxu is a 51 year old female who presents here today for BP recheck. At last visit BPs were elevated. We increased toprol to 100mg Patient is tolerating med change well She does not check her bp at home. Past medical history, appointments, medications, allergies reviewed. Previous Medical History PAST MEDICAL HISTORY Diagnosis Date Adnexal mass, right 12/16/[address] in 11/2016 Allergic rhinitis 04/17/2006 Allergic rhinitis, cause unspecified 04/17/2006 Arthritis Bilateral renal cysts 07/06/2015 Bulge of lumbar disc without myelopathy 05/15/2016 L4-5 and L5-S1 Carpal tunnel syndrome Chronic lymphadenitis 09/17/[address] Anibal Fry at the [facility]: Had lymph node biopsy a year ago that showed reactive tissue. Chronic nausea 04/30/2021 Chronic pain syndrome 03/06/2020 RA and Lupus related. On Tramadol per Dr. Littlejohn Cirrhosis of liver without ascites (HCC) 01/31/2015 Secondary to fatty liver, liver biopsy proven. CKD (chronic kidney disease) stage 3, GFR 30-59 ml/min ([facility]) 12/09/2017 Class 1 obesity due to excess calories with serious comorbidity and body mass index (BMI) of 30.0 to 30.9 in adult 03/03/2017 Crohn's disease (HCC) 08/21/[address] Cox Diabetic eye exam ([facility]) 04/28/2017 Last done: 12/09/2017 Diabetic gastroparesis ([facility]) 09/24/2015 Empirically diagnosed since had nausea/vomiting, could not tolerate gastric emptying study. Good response to Reglan. Diabetic polyneuropathy 01/31/2015 Diabetic ulcer of right midfoot associated with type 2 diabetes mellitus, with fat layer exposed ([facility]) 07/09/2020 Diastolic dysfunction 11/05/2018 Duodenitis without mention of hemorrhage 10/06/2008 Essential hypertension 08/24/2018 Essential tremor 10/27/2020 Family history of malignant melanoma 11/05/2018 Fatty liver 05/03/2014 Fibromyalgia 07/26/2014 AYESHA (generalized anxiety disorder) 05/18/2017 Gastroesophageal reflux disease without esophagitis 01/31/2015 Hemorrhage of gastrointestinal tract, unspecified History of 2019 novel coronavirus disease (COVID-19) 02/21/2020 02/08/2020 History of 2019 novel coronavirus disease (COVID-19) 02/21/2020 02/08/2020, 08/20/2021 History of TB (tuberculosis) 02/02/2018 History of temporal arteritis 02/05/2016 History of transfusion Hypomagnesemia 11/06/2016 IBS (irritable bowel syndrome) 05/03/2014 Insulin pump status 01/22/2016 Internal hemorrhoids 04/09/2005 Iron deficiency anemia 11/06/2016 Leg edema, right 05/16/2016 Lesion of liver 10/29/2016 Low serum vitamin B12 05/09/2021 Lupus (HCC) Major depressive disorder in full remission ([facility]) 05/03/2014 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 2 diabetes mellitus ([facility]) 11/06/2016 Mild persistent asthma without complication 01/31/[address] Ramesh: Mild persistent asthma. 04/23/2012 normal spirometry. 04/2012 Methacholine Inhalation Challenge positive at level 5. Mixed hyperlipidemia 03/07/2015 HINTON (nonalcoholic steatohepatitis) 11/06/2016 Nephrolithiasis 05/18/2010 Obesity, Class I, BMI 30-34.9 07/09/2020 Obstructive sleep apnea 10/11/[address] Xiao, Working to get set up with a CPAP at 8 cm H2O with 1 L O2 bled in On home oxygen therapy 2 liters at Osteomyelitis of ankle or foot 04/30/2015 left, prior to left BKA Psychophysiological insomnia 09/14/2018 Pulmonary HTN ([facility]) 10/11/2008 Oxygen at home, uses prn. 2L per NC at night PVC's (premature ventricular contractions) 04/30/2021 Seeing [facility], on metoprolol. S/P BKA (below knee amputation) unilateral, left ([facility]) 09/14/2018 Done 08/06/2018 Sjogren's syndrome ([facility]) 08/31/[address] Littlejohn Spinal stenosis, lumbosacral region 05/15/2016 Mild at L4-L5 Status post transmetatarsal amputation of right foot ([facility]) 11/05/2018 Stroke ([facility]) TB lung, latent 07/26/2014 treatment started 06/2014 Tongue biting 08/31/2017 Type 2 diabetes mellitus with proteinuria ([facility]) 02/21/2015 Vitamin D deficiency 05/03/2014 Well adult exam 04/30/2021 Last done: 04/30/2021 Previous Surgical History PAST SURGICAL HISTORY Procedure Laterality Date 2D ECHO (EXEP) 06/03/2016 EF=55%, no valvue issues ABDOMINAL SURGERY HX AMPUTATION OF LOWER LEG Left 08/06/2018 BKA, ortho [place] BX LVR NDL DONE PURPOSE TM OTH MAJOR PX 12/14/2008 BX/EXC LYMPH NODE OPEN SUPERFICIAL 06/20/2014 left inguinal CARPAL TUNNEL RIGHT WRIST 01/2007 COLONOSCOPY FLX DX W/COLLJ SPEC WHEN PFRMD 11/07/1996 Colonoscopy COLONOSCOPY FLX DX W/COLLJ SPEC WHEN PFRMD 10/06/2008 Normal COLONOSCOPY FLX DX W/COLLJ SPEC WHEN PFRMD 08/09/2015 Colonoscopy COLONOSCOPY FLX DX W/COLLJ SPEC WHEN PFRMD 01/22/2021 COLONOSCOPY W/BIOPSY SING (more content not included)... [facility] 04-29-2022 Instructions Rosie Somers PA-C - 04/29/2022 10:34 AM EDT Monitor BP at home a couple times per week. Let us know if you start seeing a trend up higher again. Otherwise keep follow up as scheduled in September. documented in this encounter [facility] 04-29-2022 History of Present illness Narrative Chief Complaint Patient presents with: Follow Up: BP 03/28/22 HPI Wendy Lux is a 51 year old female who presents here today for BP recheck. At last visit BPs were elevated. We increased toprol to 100mg Patient is tolerating med change well She does not check her bp at home. Past medical history, appointments, medications, allergies reviewed. Previous Medical History PAST MEDICAL HISTORY Diagnosis Date Adnexal mass, right 12/16/[address] in 11/2016 Allergic rhinitis 04/17/2006 Allergic rhinitis, cause unspecified 04/17/2006 Arthritis Bilateral renal cysts 07/06/2015 Bulge of lumbar disc without myelopathy 05/15/2016 L4-5 and L5-S1 Carpal tunnel syndrome Chronic lymphadenitis 09/17/[address] Anibal Fry at the [facility]: Had lymph node biopsy a year ago that showed reactive tissue. Chronic nausea 04/30/2021 Chronic pain syndrome 03/06/2020 RA and Lupus related. On Tramadol per Dr. Littlejohn Cirrhosis of liver without ascites (HCC) 01/31/2015 Secondary to fatty liver, liver biopsy proven. CKD (chronic kidney disease) stage 3, GFR 30-59 ml/min (HCC) 12/09/2017 Class 1 obesity due to excess calories with serious comorbidity and body mass index (BMI) of 30.0 to 30.9 in adult 03/03/2017 Crohn's disease (HCC) 08/21/[address] Cox Diabetic eye exam ([facility]) 04/28/2017 Last done: 12/09/2017 Diabetic gastroparesis (HCC) 09/24/2015 Empirically diagnosed since had nausea/vomiting, could not tolerate gastric emptying study. Good response to Reglan. Diabetic polyneuropathy 01/31/2015 Diabetic ulcer of right midfoot associated with type 2 diabetes mellitus, with fat layer exposed ([facility]) 07/09/2020 Diastolic dysfunction 11/05/2018 Duodenitis without mention of hemorrhage 10/06/2008 Essential hypertension 08/24/2018 Essential tremor 10/27/2020 Family history of malignant melanoma 11/05/2018 Fatty liver 05/03/2014 Fibromyalgia 07/26/2014 AYESHA (generalized anxiety disorder) 05/18/2017 Gastroesophageal reflux disease without esophagitis 01/31/2015 Hemorrhage of gastrointestinal tract, unspecified History of 2019 novel coronavirus disease (COVID-19) 02/21/2020 02/08/2020 History of 2019 novel coronavirus disease (COVID-19) 02/21/2020 02/08/2020, 08/20/2021 History of TB (tuberculosis) 02/02/2018 History of temporal arteritis 02/05/2016 History of transfusion Hypomagnesemia 11/06/2016 IBS (irritable bowel syndrome) 05/03/2014 Insulin pump status 01/22/2016 Internal hemorrhoids 04/09/2005 Iron deficiency anemia 11/06/2016 Leg edema, right 05/16/2016 Lesion of liver 10/29/2016 Low serum vitamin B12 05/09/2021 Lupus (HCC) Major depressive disorder in full remission ([facility]) 05/03/2014 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 2 diabetes mellitus ([facility]) 11/06/2016 Mild persistent asthma without complication 01/31/[address] Ramesh: Mild persistent asthma. 04/23/2012 normal spirometry. 04/2012 Methacholine Inhalation Challenge positive at level 5. Mixed hyperlipidemia 03/07/2015 HINTON (nonalcoholic steatohepatitis) 11/06/2016 Nephrolithiasis 05/18/2010 Obesity, Class I, BMI 30-34.9 07/09/2020 Obstructive sleep apnea 10/11/[address] Xiao, Working to get set up with a CPAP at 8 cm H2O with 1 L O2 bled in On home oxygen therapy 2 liters at hs Osteomyelitis of ankle or foot 04/30/2015 left, prior to left BKA Psychophysiological insomnia 09/14/2018 Pulmonary HTN (HCC) 10/11/2008 Oxygen at home, uses prn. 2L per NC at night PVC's (premature ventricular contractions) 04/30/2021 Seeing [facility], on metoprolol. S/P BKA (below knee amputation) unilateral, left ([facility]) 09/14/2018 Done 08/06/2018 Sjogren's syndrome ([facility]) 08/31/[address] Littlejohn Spinal stenosis, lumbosacral region 05/15/2016 Mild at L4-L5 Status post transmetatarsal amputation of right foot ([facility]) 11/05/2018 Stroke ([facility]) TB lung, latent 07/26/2014 treatment started 06/2014 Tongue biting 08/31/2017 Type 2 diabetes mellitus with proteinuria ([facility]) 02/21/2015 Vitamin D deficiency 05/03/2014 Well adult exam 04/30/2021 Last done: 04/30/2021 Previous Surgical History PAST SURGICAL HISTORY Procedure Laterality Date 2D ECHO (EXEP) 06/03/2016 EF=55%, no valvue issues ABDOMINAL SURGERY HX AMPUTATION OF LOWER LEG Left 08/06/2018 BKA, ortho [place] BX LVR NDL DONE PURPOSE TM OTH MAJOR PX 12/14/2008 BX/EXC LYMPH NODE OPEN SUPERFICIAL 06/20/2014 left inguinal CARPAL TUNNEL RIGHT WRIST 01/2007 COLONOSCOPY FLX DX W/COLLJ SPEC WHEN PFRMD 11/07/1996 Colonoscopy COLONOSCOPY FLX DX W/COLLJ SPEC WHEN PFRMD 10/06/2008 Normal COLONOSCOPY FLX DX W/COLLJ SPEC WHEN PFRMD 08/09/2015 Colonoscopy COLONOSCOPY FLX DX W/COLLJ SPEC WHEN PFRMD 01/22/2021 COLONOSCOPY W/BIOPSY SINGLE/MULTIPLE 04/09/2005 DILATION & CURETTAGE DX&/THER NONOBSTETRIC Dilation & curettage x2 EGD TRANSORAL BIOPSY SINGLE/MULTIPLE 10/06/2008 Duodenitis ESOPHAGOGASTRODUODENOSCOPY TRANSORAL DIAGNOSTIC 08/09/2015 EGD ESOPHAGOGASTRODUODENOSCOPY TRANSORAL DIAGNOSTIC 01/22/2021 EYE SURGERY HX FECAL OCCULT BLOOD TEST 05/20/2017 negative HEART CATHETERIZATION 06/10/2016 Cath was normal HERNIA REPAIR HX LAPAROSCOPY W/RMVL ADNEXAL STRUCTURES 11/30/2006 RSO for ovarian cyst LAPS SURG CHOLECYSTECTOMY W/CHOLANGIOGRAPHY 08/2003 Doctor's Hopsital LEXISCAN STRESS TEST 06/14/2020 negative LIG/TRNSXJ FLP TUBE ABDL/VAG APPR UNI/BI Tubal ligation OTHER SURGICAL HISTORY (PLEASE SPECIFY) HX 04/2015 partial right foot amputation PAST SURGICAL HISTORY OF lithotripsy several PAST SURGICAL HISTORY OF percutaneous right kidney PAST SURGICAL HISTORY OF 2011 Bilateral carpal tunnel release PAST SURGICAL HISTORY OF 2011 left foot surgery PAST SURGICAL HISTORY OF 2012 Debridement bilateral great toes PAST SURGICAL HISTORY OF 02/28/2015 right toe amputation PAST SURGICAL HISTORY OF 05/2017 removed all five toes on the left foot. Dr. Palacios PAST SURGICAL HISTORY OF 10/2017 left 1st metatarsal bone removed per Dr. Palacios. REMV CATARACT EXTRACAP,INSERT LENS Right 10/08/2020 REPAIR FIRST ABDOMINAL WALL HERNIA 12/14/2008 SIGMOIDOSCOPY FLX DX W/COLLJ SPEC BR/WA IF PFRMD 09/16/2007 SIGMOIDOSCOPY FLX DX W/COLLJ SPEC BR/WA IF PFRMD 12/02/2010 Sigmoidoscopy, flexible STRESS TEST 12/28/2015 WNL TOTAL ABDOMINAL HYSTERECT W/WO RMVL TUBE OVARY 12/2006 Lt ovary and apendix removed also VAGINAL HYSTERECTOMY Family History FAMILY HISTORY Problem Relation Age of Onset other (liver cysts) Mother other (unknown) Father other (juvenile arthritis) Brother Cancer Brother bone ca, hodgkins lymphoma at 27 Thyroid Cancer Daughter Thyroid Daughter Heart Daughter cyst Patient Allergies ALLERGIES Allergen Reactions Environmental Aller* Unknown Cockroaches, dust mites, maple trees Lipitor [Atorvastat* GI Upset May of contributed to vomiting Metformin Other: See Comments Renal impairment Percocet [Oxycodone* Vomiting Plaquenil [Hydroxyc* Other: See Comments Due to current level of eye damage Current Medications Current Outpatient Medications on File Prior to Visit Medication Sig DULoxetine (CYMBALTA) 60 mg capsule Take 1 capsule by mouth once daily. traZODone (DESYREL) 150 mg tablet Take 1 tablet by mouth daily at bedtime. Fenofibrate (LOFIBRA) 160 mg tablet Take 1 tablet by mouth once daily. gabapentin (NEURONTIN) 800 mg tablet Take 1 tablet by mouth three times daily for 180 days. insulin regular human, CONCENTRATED 500 UNIT/ML, (HUMULIN R) 500 unit/mL soln INFUSE UP TO 2,000 UNITS DAILY VIA INSULIN PUMP rosuvastatin (CRESTOR) 40 mg tablet Take 1 tablet by mouth daily at bedtime. finerenone (KERENDIA) 10 mg tablet Take 10 mg by mouth once daily. Dr Hiram cabreraizumab-rzaa (SKYRIZI INTRAVENOUS) Inject intravenously. Infusions at [facility] DOXYCYCLINE HYCLATE ORAL Take 100 mg by mouth twice daily. ferrous sulfate 325 mg (65 mg iron) tablet Take 325 mg by mouth three times daily. tramadol HCl (TRAMADOL ORAL) Take 50 mg by mouth three times daily as needed. epoetin regan-epbx (RETACRIT) 20,000 unit/2 mL injection Inject 20,000 Units subcutaneously once every month. PRN if hgb is under 10 metoprolol tartrate, short acting, (LOPRESSOR) 100 mg tablet Take 1 tablet by mouth twice daily. omeprazole (PRILOSEC) 40 mg capsule Take 1 capsule by mouth once daily. Mesalamine (PENTASA) 500 mg CR capsule Take 1,000 mg by mouth twice daily. diphenoxylate-atropine (LOMOTIL) 2.5-0.025 mg per tablet Take 1 tablet by mouth four times daily as needed. hyoscyamine (LEVSIN) 0.125 mg tablet Take 0.125 mg by mouth every 4 hours as needed. ergocalciferol 50,000 unit capsule (VITAMIN D2, DRISDOL) Take 1 capsule by mouth three times a week. blood sugar diagnostic (CONTOUR NEXT TEST STRIPS) test strip Use to test glucose 6 times daily as directed. DX: E11.8, E11.65, Z79.4, insulin pump dependent. Lancets lancets Use to test blood glucose 6 times daily. ondansetron (ZOFRAN) 8 mg tablet Take 1 tablet by mouth every 12 hours as needed for nausea/vomiting. insulin aspart U-100 (NOVOLOG FLEXPEN U-100 INSULIN) 100 unit/mL (3 mL) INJECT SUBCUTANEOUS THREE TIMES DAILY WITH MEALS PER SSI. TDD: 200 UNITS Igunq-9-STK-EPA-Fish Oil (FISH OIL) 1,000 mg (120 mg-180 mg) cap Take 1 capsule by mouth once daily. cyanocobalamin (VITAMIN B-12) 1,000 mcg tab Take 1 tablet by mouth once daily. fluticasone-vilanterol (BREO ELLIPTA) 200-25 mcg/dose inhaler Inhale 1 Inhalation as instructed once daily. insulin needles, DISPOSABLE, (PEN NEEDLE) 31 gauge x 5/16 Use as directed 2 times daily, on insulin, E11.42 albuterol HFA (PROAIR HFA) 90 mcg/actuation inhaler Inhale 2 Puffs as instructed every 4 hours as needed for Wheezing/Shortness of Breath. DULoxetine (CYMBALTA) 30 mg capsule Take 1 capsule by mouth once daily. Nebulizer Accessories misc Nebulizer mask Dx: J45.30 Nebulizer Accessories misc Filter Dx: J45.30 albuterol (PROVENTIL) 2.5 mg /3 mL (0.083 %) nebulizer solution Inhale by nebulizer over 5-15 minutes three (3) to four (4) times a day as needed for wheezing and shortness of breath hydrOXYzine pamoate (VISTARIL) 50 mg capsule Take 1 capsule by mouth three times daily as needed for Anxiety (Restlessness). magnesium oxide (MAG-OX) 400 mg (241.3 mg magnesium) tablet Take 1 tablet by mouth once daily. blood-glucose meter, wireless (CONTOUR NEXT LINK) kit Use as directed to test blood glucose. COMPOUNDED PRESCRIPTION Oxygen at 2 L with CPAP at night and PRN during the day modafinil (PROVIGIL) 100 mg tablet Take by mouth once daily. No current facility-administered medications on file prior to visit. Social History Social History Tobacco Use Smoking status: Never Smokeless tobacco: Never Tobacco comments: No smokers in current home. 2 smokers in childhood home. Substance Use Topics Alcohol use: Yes Comment: occasional Drug use: No Review of Symptoms REVIEW OF SYSTEMS GENERAL: No weight loss, malaise or fevers EXAM: BP 136/82 (BP Site: Left Arm, BP Position: Sitting, BP Cuff Size: Regular Adult) Pulse 71 Resp 16 Wt 98.4 kg (217 lb) LMP 12/03/2006 SpO2 95% BMI 33.98 kg/m General Appearance: Well appearing, alert, in no acute distress, well-hydrated, well nourished.. Health Maintenance List HEPATITIS A(1 of 2 - Risk 2-dose series) Never done MMR(1 of 2 - Risk 2-dose series) Never done BP CONTROLLED (<130/80) Never done SHINGRIX VACCINE(1 of 2) Never done MAMMOGRAM due on 04/18/2021 DIABETIC FOOT EXAM due on 04/30/2022 COVID-19 VACCINE(3 - Booster for Pfizer series) due on 03/28/2023 HEMOGLOBIN/HEMATOCRIT due on 04/30/2022 HBA1C due on 06/02/2022 DILATED RETINAL EXAM due on 06/05/2022 SERUM CREATININE due on 11/18/2022 LDL CHOLESTEROL due on 03/28/2023 ANNUAL PCP TEAM CHRONIC DISEASE VISIT due on 03/28/2023 DTAP,TDAP,TD(2 - Td or Tdap) due on 01/16/2026 COLORECTAL CANCER SCREENING due on 01/22/2031 PNEUMOCOCCAL(4 - PPSV23 if available, else PCV20) due on 06/24/2036 INFLUENZA Completed HEPATITIS C SCREENING Completed HIV SCREENING Completed URINE ALBUMIN:CREATININE RATIO Discontinued PAP TESTING Discontinued HPV TESTING Discontinued Data reviewed ASSESSMENT/PLAN: 1. Hypertension - ICD9: 401.9, ICD10: I10 - fair control Improved control. Parameters of monitoring explained to patient. Will keep dose the same. Patient to monitor at home. - Continue current medication(s) - Recommended regular aerobic exercise. - Recommend home blood pressure monitoring, to bring results in on next visit - Goal of BP <130/80 Rosie Somers PA-C documented in this encounter [facility] 04-23-2022 Note HNO ID: [id number] Author: Summer Bravo MA Service: ? Author Type: Basket Hand Weaver Type: Progress Notes Filed: 04/23/2022 5:50 PM Note Text: Scan on 04/23/2022 1:36 PM by External Provider: Hematology Summer Bravo MA [facility] 04-23-2022 History of Present illness Narrative Scan on 04/23/2022 1:36 PM by External Provider: Hematology Summer Bravo MA documented in this encounter [facility] 04-16-2022 Note HNO ID: [id number] Author: Summer Bravo MA Service: ? Author Type: Basket Hand Weaver Type: Progress Notes Filed: 04/17/2022 8:43 PM Note Text: Scan on 04/11/2022 9:37 PM by External Provider: CT Scan Scan on 04/12/2022 12:22 AM by External Provider: Consultation - Emergency Medicine Summer Bravo MA [facility] 04-16-2022 History of Present illness Narrative Scan on 04/11/2022 9:37 PM by External Provider: CT Scan Scan on 04/12/2022 12:22 AM by External Provider: Consultation - Emergency Medicine Summer Bravo MA documented in this encounter [facility] 04-09-2022 Note Patient Outreach (IN TMM[facility]) WENDY LUX ([id number]) 1970 F Date Time Provider Department 04/09/22 JOHANN PETERS During your visit today, we recorded the following information about you: Allergies As of Date: 04/09/2022 Noted Allergy Reaction Environmental allergies [Other] 12/16/2005 16 - Unknown Comments: Cockroaches, dust mites, maple trees LIPITOR (ATORVASTATIN CALCIUM) 09/17/2015 8 - GI Upset Comments: June contributed to vomiting METFORMIN 03/17/2018 14 - Other: See Comments Comments: Renal impairment PERCOCET (OXYCODONE-ACETAMINOPHEN) 5 11 - Vomiting PLAQUENIL (HYDROXYCHLOROQUINE SUL*03/17/2018 14 - Other: See Comments Comments: Due to current level of eye damage Date Reviewed: 03/28/2022 Reviewed by: Kristina Torres LPN - Fully Assessed Visit Diagnosis:Encounter for screening mammogram for breast cancer [Z12.31] Order(s):[facility] SCREENING [[id number]] Order #: [id number] FUTURE Prescriptions as of 04/14/2022 - DULoxetine (CYMBALTA) 60 mg capsule Take 1 capsule by mouth once daily. - traZODone (DESYREL) 150 mg tablet Take 1 tablet by mouth daily at bedtime. - Fenofibrate (LOFIBRA) 160 mg tablet Take 1 tablet by mouth once daily. - gabapentin (NEURONTIN) 800 mg tablet Take 1 tablet by mouth three times daily for 180 days. - insulin regular human, CONCENTRATED 500 UNIT/ML, (HUMULIN R) 500 unit/mL soln INFUSE UP TO 2,000 UNITS DAILY VIA INSULIN PUMP - rosuvastatin (CRESTOR) 40 mg tablet Take 1 tablet by mouth daily at bedtime. - finerenone (KERENDIA) 10 mg tablet Take 10 mg by mouth once daily. Dr Gandhi - risankizumab-rzaa (SKYRIZI INTRAVENOUS) Inject intravenously. Infusions at [facility] - DOXYCYCLINE HYCLATE ORAL Take 100 mg by mouth twice daily. - ferrous sulfate 325 mg (65 mg iron) tablet Take 325 mg by mouth three times daily. - modafinil (PROVIGIL) 100 mg tablet Take by mouth once daily. - tramadol HCl (TRAMADOL ORAL) Take 50 mg by mouth three times daily as needed. - epoetin regan-epbx (RETACRIT) 20,000 unit/2 mL injection Inject 20,000 Units subcutaneously once every month. PRN if hgb is under 10 - metoprolol tartrate, short acting, (LOPRESSOR) 100 mg tablet Take 1 tablet by mouth twice daily. - omeprazole (PRILOSEC) 40 mg capsule Take 1 capsule by mouth once daily. - Mesalamine (PENTASA) 500 mg CR capsule Take 1,000 mg by mouth twice daily. - diphenoxylate-atropine (LOMOTIL) 2.5-0.025 mg per tablet Take 1 tablet by mouth four times daily as needed. - hyoscyamine (LEVSIN) 0.125 mg tablet Take 0.125 mg by mouth every 4 hours as needed. - ergocalciferol 50,000 unit capsule (VITAMIN D2, DRISDOL) Take 1 capsule by mouth three times a week. - blood sugar diagnostic (CONTOUR NEXT TEST STRIPS) test strip Use to test glucose 6 times daily as directed. DX: E11.8, E11.65, Z79.4, insulin pump dependent. - Lancets lancets Use to test blood glucose 6 times daily. - ondansetron (ZOFRAN) 8 mg tablet Take 1 tablet by mouth every 12 hours as needed for nausea/vomiting. - insulin aspart U-100 (NOVOLOG FLEXPEN U-100 INSULIN) 100 unit/mL (3 mL) INJECT SUBCUTANEOUS THREE TIMES DAILY WITH MEALS PER SSI. TDD: 200 UNITS - Ddnjs-5-SQN-EPA-Fish Oil (FISH OIL) 1,000 mg (120 mg-180 mg) cap Take 1 capsule by mouth once daily. - cyanocobalamin (VITAMIN B-12) 1,000 mcg tab Take 1 tablet by mouth once daily. - fluticasone-vilanterol (BREO ELLIPTA) 200-25 mcg/dose inhaler Inhale 1 Inhalation as instructed once daily. - insulin needles, DISPOSABLE, (PEN NEEDLE) 31 gauge x 5/16 Use as directed 2 times daily, on insulin, E11.42 - albuterol HFA (PROAIR HFA) 90 mcg/actuation inhaler Inhale 2 Puffs as instructed every 4 hours as needed for Wheezing/Shortness of Breath. - DULoxetine (CYMBALTA) 30 mg capsule Take 1 capsule by mouth once daily. - Nebulizer Accessories misc Nebulizer mask Dx: J45.30 - Nebulizer Accessories misc Filter Dx: J45.30 - albuterol (PROVENTIL) 2.5 mg /3 mL (0.083 %) nebulizer solution Inhale by nebulizer over 5-15 minutes three (3) to four (4) times a day as needed for wheezing and shortness of breath - hydrOXYzine pamoate (VISTARIL) 50 mg capsule Take 1 capsule by mouth three times daily as needed for Anxiety (Restlessness). - magnesium oxide (MAG-OX) 400 mg (241.3 mg magnesium) tablet Take 1 tablet by mouth once daily. - blood-glucose meter, wireless (CONTOUR NEXT LINK) kit Use as directed to test blood glucose. - COMPOUNDED PRESCRIPTION Oxygen at 2 L with CPAP at night and PRN during the day Problem List As Of Date 04/09/2022 Noted Resolved Abdominal pain, generalized [R10.84] 06/30/2019 Irritable bowel syndrome [K58.9] 02/12/2005 06/30/2019 Diarrhea [R19.7] 04/09/2005 06/30/2019 Internal hemorrhoids without mention of complic*04/09/2005 06/30/2019 Nonspecific elevation of levels of transaminase* 03/07/2015 A (more content not included)... [facility] 04-04-2022 Miscellaneous Notes Received a faxed notification from [employer] that patient has been APPROVED FOR CONTOUR NEXT STRIPS. Effective: 04/04/2022---04/04/2023 Auth# [id number] ID# [id number] Patient made aware. Closed. Patient had reported that her pump and meter were not connected. Called and walked her through the process for enabling the integration of the two platforms. She reports that the pump and the meter are both indicating that they are now connected. PA-- CONTOUR NEXT STRIPS. Completed with [employer]. Faxed PA form, office notes and insurance card to [phone]. Transmission ok. Will await approval / denial. documented in this encounter [facility] 04-04-2022 Miscellaneous Notes The following approved medication requests have been transmitted electronically. Requested Prescriptions Signed Prescriptions Disp Refills DULoxetine (CYMBALTA) 60 mg capsule 90 capsule 1 Sig: Take 1 capsule by mouth once daily. Authorizing Provider: JOHANN PETERS traZODone (DESYREL) 150 mg tablet 90 tablet 1 Sig: Take 1 tablet by mouth daily at bedtime. Authorizing Provider: JOHANN PETERS Fenofibrate (LOFIBRA) 160 mg tablet 90 tablet 1 Sig: Take 1 tablet by mouth once daily. Authorizing Provider: JOHANN PETERS gabapentin (NEURONTIN) 800 mg tablet 270 tablet 1 Sig: Take 1 tablet by mouth three times daily for 180 days. Authorizing Provider: JOHANN PETERS MD Patient requests via MyChart refills as follows: Requested Prescriptions Pending Prescriptions Disp Refills DULoxetine (CYMBALTA) 60 mg capsule 90 capsule 0 Sig: Take 1 capsule by mouth once daily. traZODone (DESYREL) 150 mg tablet 90 tablet 0 Sig: Take 1 tablet by mouth daily at bedtime. Fenofibrate (LOFIBRA) 160 mg tablet 90 tablet 0 Sig: Take 1 tablet by mouth once daily. gabapentin (NEURONTIN) 800 mg tablet 270 tablet 0 Sig: Take 1 tablet by mouth three times daily for 180 days. HAFSA: 03/28/22 NOV: 04/25/22 Last Refill: All 3 meds: 01/21/22 #90 0 refills Kristina Torres LPN documented in this encounter [facility] 04-02-2022 Miscellaneous Notes TC to patient who verbalized understanding and has no further questions at this time. LISA Christopher Yes. She needs to stay on the medicine. TC to patient who verbalizes understanding. Pt questioning provider if she still needs to be taking Crestor if her cholesterol levels are okay. Please advise. Thank you. LISA Christopher ----- Message from Rosie Somers PA-C sent at 04/01/2022 2:32 PM EST ----- Cholesterol is okay. Trigs are quite high still. Watch diet. documented in this encounter [facility] 03-28-2022 Note HNO ID: [id number] Author: Rosie Somers PA-C Service: ? Author Type: Physician Loss Prevention/Safety District Manager Type: Progress Notes Filed: 03/28/2022 1:51 PM Note Text: Chief Complaint Patient presents with: Follow Up: 6 month HPI Wendy Lux is a 51 year old female who presents here today for Chronic Medical Conditions.. Patient with a complex medical hx of DM2, hyperlipidemia, SLE, GERD, CKD, HTN, Anemia, asthma, depression, ayesha, ROSENDO, gastroparesis, vit D def, ibs, chronic pain, prior left foot amputation and those as below. Patient was recently dx with Crohn's Disease and her kidney failure has progressed to Stage 4. Dr. Gandhi is currently seeing if patient will qualify for donor transplant by [facility] since [facility] declined patient. 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 Patient states she has been having high BP. Last 10 Encounter BP Readings: Date: BP: 03/28/2022 170/92 03/24/2022 142/88 12/02/2021 167/82 06/20/2021 142/82 04/30/2021 122/70 02/04/2021 133/66 01/22/2021 149/77 12/03/2020 150/80 11/26/2020 124/80 10/27/2020 152/81[bp yasir average[ Past medical history, appointments, medications, allergies reviewed. Previous Medical History PAST MEDICAL HISTORY Diagnosis Date Adnexal mass, right 12/16/[address] in 11/2016 Allergic rhinitis 04/17/2006 Allergic rhinitis, cause unspecified 04/17/2006 Arthritis Bilateral renal cysts 07/06/2015 Bulge of lumbar disc without myelopathy 05/15/2016 L4-5 and L5-S1 Carpal tunnel syndrome Chronic lymphadenitis 09/17/[address] Anibal Fry at the [facility]: Had lymph node biopsy a year ago that showed reactive tissue. Chronic nausea 04/30/2021 Chronic pain syndrome 03/06/2020 RA and Lupus related. On Tramadol per Dr. Littlejohn Cirrhosis of liver without ascites (HCC) 01/31/2015 Secondary to fatty liver, liver biopsy proven. CKD (chronic kidney disease) stage 3, GFR 30-59 ml/min ([facility]) 12/09/2017 Class 1 obesity due to excess calories with serious comorbidity and body mass index (BMI) of 30.0 to 30.9 in adult 03/03/2017 Crohn's disease ([facility]) 08/21/[address] Cox Diabetic eye exam ([facility]) 04/28/2017 Last done: 12/09/2017 Diabetic gastroparesis ([facility]) 09/24/2015 Empirically diagnosed since had nausea/vomiting, could not tolerate gastric emptying study. Good response to Reglan. Diabetic polyneuropathy 01/31/2015 Diabetic ulcer of right midfoot associated with type 2 diabetes mellitus, with fat layer exposed ([facility]) 07/09/2020 Diastolic dysfunction 11/05/2018 Duodenitis without mention of hemorrhage 10/06/2008 Essential hypertension 08/24/2018 Essential tremor 10/27/2020 Family history of malignant melanoma 11/05/2018 Fatty liver 05/03/2014 Fibromyalgia 07/26/2014 AYESHA (generalized anxiety disorder) 05/18/2017 Gastroesophageal reflux disease without esophagitis 01/31/2015 Hemorrhage of gastrointestinal tract, unspecified History of 2019 novel coronavirus disease (COVID-19) 02/21/2020 02/08/2020 History of 2019 novel coronavirus disease (COVID-19) 02/21/2020 02/08/2020, 08/20/2021 History of TB (tuberculosis) 02/02/2018 History of temporal arteritis 02/05/2016 History of transfusion Hypomagnesemia 11/06/2016 IBS (irritable bowel syndrome) 05/03/2014 Insulin pump status 01/22/2016 Internal hemorrhoids 04/09/2005 Iron deficiency anemia 11/06/2016 Leg edema, right 05/16/2016 Lesion of liver 10/29/2016 Low serum vitamin B12 05/09/2021 Lupus ([facility]) Major depressive disorder in full remission ([facility]) 05/03/2014 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 2 diabetes mellitus ([facility]) 11/06/2016 Mild persistent asthma without complication 01/31/[address] Ramesh: Mild persistent asthma. 04/23/2012 normal spirometry. 04/2012 Methacholine Inhalation Challenge positive at level 5. Mixed hyperlipidemia 03/07/2015 HINTON (nonalcoholic steatohepatitis) 11/06/2016 Nephrolithiasis 05/18/2010 Obesity, Class I, BMI 30-34.9 07/09/2020 Obstructive sleep apnea 10/11/[address] Xiao, Working to get set up with a CPAP at 8 cm H2O with 1 L O2 bled in On home oxygen therapy 2 liters at Osteomyelitis of ankle or foot 04/30/2015 left, prior to left BKA Psychophysiological insomnia 09/14/2018 Pulmonary HTN (HCC) 10/11/2008 Oxygen at home, uses prn. 2L per NC at night PVC's (premature ventricular contractions) 04/30/2021 Seeing [facility], on metoprolol. S/P BKA (below knee amputation) unilateral, left (HCC) 09/14/2018 Done 08/06/2018 Sjogren's syndrome ([facility]) 08/31/[address] Littlejohn Spinal stenosis, lumbosacral region 05/15/2016 Mild at L4-L5 Status post transmetatarsal amputation of right foot ([facility]) 11/05/2018 Stroke ([facility]) TB lung, latent 07/26/2014 treatment started 06/2014 Tongue biting 08/31/2017 Type 2 diabetes mellitus with proteinuria ([facility]) 02/21/2015 Vitamin D deficiency 05/03/2014 Well ad (more content not included)... [facility] 03-28-2022 History of Present illness Narrative Chief Complaint Patient presents with: Follow Up: 6 month HPI Wendy Lux is a 51 year old female who presents here today for Chronic Medical Conditions.. Patient with a complex medical hx of DM2, hyperlipidemia, SLE, GERD, CKD, HTN, Anemia, asthma, depression, ayesha, ROSENDO, gastroparesis, vit D def, ibs, chronic pain, prior left foot amputation and those as below. Patient was recently dx with Crohn's Disease and her kidney failure has progressed to Stage 4. Dr. Gandhi is currently seeing if patient will qualify for donor transplant by [facility] since [facility] declined patient. 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 Patient states she has been having high BP. Last 10 Encounter BP Readings: Date: BP: 03/28/2022 170/92 03/24/2022 142/88 12/02/2021 167/82 06/20/2021 142/82 04/30/2021 122/70 02/04/2021 133/66 01/22/2021 149/77 12/03/2020 150/80 11/26/2020 124/80 10/27/2020 152/81[bp yasir average[ Past medical history, appointments, medications, allergies reviewed. Previous Medical History PAST MEDICAL HISTORY Diagnosis Date Adnexal mass, right 12/16/[address] in 11/2016 Allergic rhinitis 04/17/2006 Allergic rhinitis, cause unspecified 04/17/2006 Arthritis Bilateral renal cysts 07/06/2015 Bulge of lumbar disc without myelopathy 05/15/2016 L4-5 and L5-S1 Carpal tunnel syndrome Chronic lymphadenitis 09/17/[address] Anibal Fry at the [facility]: Had lymph node biopsy a year ago that showed reactive tissue. Chronic nausea 04/30/2021 Chronic pain syndrome 03/06/2020 RA and Lupus related. On Tramadol per Dr. Littlejohn Cirrhosis of liver without ascites (HCC) 01/31/2015 Secondary to fatty liver, liver biopsy proven. CKD (chronic kidney disease) stage 3, GFR 30-59 ml/min ([facility]) 12/09/2017 Class 1 obesity due to excess calories with serious comorbidity and body mass index (BMI) of 30.0 to 30.9 in adult 03/03/2017 Crohn's disease (HCC) 08/21/[address] Cox Diabetic eye exam ([facility]) 04/28/2017 Last done: 12/09/2017 Diabetic gastroparesis (HCC) 09/24/2015 Empirically diagnosed since had nausea/vomiting, could not tolerate gastric emptying study. Good response to Reglan. Diabetic polyneuropathy 01/31/2015 Diabetic ulcer of right midfoot associated with type 2 diabetes mellitus, with fat layer exposed ([facility]) 07/09/2020 Diastolic dysfunction 11/05/2018 Duodenitis without mention of hemorrhage 10/06/2008 Essential hypertension 08/24/2018 Essential tremor 10/27/2020 Family history of malignant melanoma 11/05/2018 Fatty liver 05/03/2014 Fibromyalgia 07/26/2014 AYESHA (generalized anxiety disorder) 05/18/2017 Gastroesophageal reflux disease without esophagitis 01/31/2015 Hemorrhage of gastrointestinal tract, unspecified History of 2019 novel coronavirus disease (COVID-19) 02/21/2020 02/08/2020 History of 2019 novel coronavirus disease (COVID-19) 02/21/2020 02/08/2020, 08/20/2021 History of TB (tuberculosis) 02/02/2018 History of temporal arteritis 02/05/2016 History of transfusion Hypomagnesemia 11/06/2016 IBS (irritable bowel syndrome) 05/03/2014 Insulin pump status 01/22/2016 Internal hemorrhoids 04/09/2005 Iron deficiency anemia 11/06/2016 Leg edema, right 05/16/2016 Lesion of liver 10/29/2016 Low serum vitamin B12 05/09/2021 Lupus (HCC) Major depressive disorder in full remission ([facility]) 05/03/2014 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 2 diabetes mellitus ([facility]) 11/06/2016 Mild persistent asthma without complication 01/31/[address] Ramesh: Mild persistent asthma. 04/23/2012 normal spirometry. 04/2012 Methacholine Inhalation Challenge positive at level 5. Mixed hyperlipidemia 03/07/2015 HINTON (nonalcoholic steatohepatitis) 11/06/2016 Nephrolithiasis 05/18/2010 Obesity, Class I, BMI 30-34.9 07/09/2020 Obstructive sleep apnea 10/11/[address] Xiao, Working to get set up with a CPAP at 8 cm H2O with 1 L O2 bled in On home oxygen therapy 2 liters at Osteomyelitis of ankle or foot 04/30/2015 left, prior to left BKA Psychophysiological insomnia 09/14/2018 Pulmonary HTN ([facility]) 10/11/2008 Oxygen at home, uses prn. 2L per NC at night PVC's (premature ventricular contractions) 04/30/2021 Seeing [facility], on metoprolol. S/P BKA (below knee amputation) unilateral, left ([facility]) 09/14/2018 Done 08/06/2018 Sjogren's syndrome ([facility]) 08/31/[address] Littlejohn Spinal stenosis, lumbosacral region 05/15/2016 Mild at L4-L5 Status post transmetatarsal amputation of right foot (HCC) 11/05/2018 Stroke ([facility]) TB lung, latent 07/26/2014 treatment started 06/2014 Tongue biting 08/31/2017 Type 2 diabetes mellitus with proteinuria ([facility]) 02/21/2015 Vitamin D deficiency 05/03/2014 Well adult exam 04/30/2021 Last done: 04/30/2021 Previous Surgical History PAST SURGICAL HISTORY Procedure Laterality Date 2D ECHO (EXEP) 06/03/2016 EF=55%, no valvue issues ABDOMINAL SURGERY HX AMPUTATION OF LOWER LEG Left 08/06/2018 BKA, ortho [place] BX LVR NDL DONE PURPOSE TM OTH MAJOR PX 12/14/2008 BX/EXC LYMPH NODE OPEN SUPERFICIAL 06/20/2014 left inguinal CARPAL TUNNEL RIGHT WRIST 01/2007 COLONOSCOPY FLX DX W/COLLJ SPEC WHEN PFRMD 11/07/1996 Colonoscopy COLONOSCOPY FLX DX W/COLLJ SPEC WHEN PFRMD 10/06/2008 Normal COLONOSCOPY FLX DX W/COLLJ SPEC WHEN PFRMD 08/09/2015 Colonoscopy COLONOSCOPY FLX DX W/COLLJ SPEC WHEN PFRMD 01/22/2021 COLONOSCOPY W/BIOPSY SINGLE/MULTIPLE 04/09/2005 DILATION & CURETTAGE DX&/THER NONOBSTETRIC Dilation & curettage x2 EGD TRANSORAL BIOPSY SINGLE/MULTIPLE 10/06/2008 Duodenitis ESOPHAGOGASTRODUODENOSCOPY TRANSORAL DIAGNOSTIC 08/09/2015 EGD ESOPHAGOGASTRODUODENOSCOPY TRANSORAL DIAGNOSTIC 01/22/2021 EYE SURGERY HX FECAL OCCULT BLOOD TEST 05/20/2017 negative HEART CATHETERIZATION 06/10/2016 Cath was normal HERNIA REPAIR HX LAPAROSCOPY W/RMVL ADNEXAL STRUCTURES 11/30/2006 RSO for ovarian cyst LAPS SURG CHOLECYSTECTOMY W/CHOLANGIOGRAPHY 08/2003 Doctor's Hopsital LEXISCAN STRESS TEST 06/14/2020 negative LIG/TRNSXJ FLP TUBE ABDL/VAG APPR UNI/BI Tubal ligation OTHER SURGICAL HISTORY (PLEASE SPECIFY) HX 04/2015 partial right foot amputation PAST SURGICAL HISTORY OF lithotripsy several PAST SURGICAL HISTORY OF percutaneous right kidney PAST SURGICAL HISTORY OF 2011 Bilateral carpal tunnel release PAST SURGICAL HISTORY OF 2011 left foot surgery PAST SURGICAL HISTORY OF 2012 Debridement bilateral great toes PAST SURGICAL HISTORY OF 02/28/2015 right toe amputation PAST SURGICAL HISTORY OF 05/2017 removed all five toes on the left foot. Dr. Palacios PAST SURGICAL HISTORY OF 10/2017 left 1st metatarsal bone removed per Dr. Palacios. REMV CATARACT EXTRACAP,INSERT LENS Right 10/08/2020 REPAIR FIRST ABDOMINAL WALL HERNIA 12/14/2008 SIGMOIDOSCOPY FLX DX W/COLLJ SPEC BR/WA IF PFRMD 09/16/2007 SIGMOIDOSCOPY FLX DX W/COLLJ SPEC BR/WA IF PFRMD 12/02/2010 Sigmoidoscopy, flexible STRESS TEST 12/28/2015 WNL TOTAL ABDOMINAL HYSTERECT W/WO RMVL TUBE OVARY 12/2006 Lt ovary and apendix removed also VAGINAL HYSTERECTOMY Family History FAMILY HISTORY Problem Relation Age of Onset other (liver cysts) Mother other (unknown) Father other (juvenile arthritis) Brother Cancer Brother bone ca, hodgkins lymphoma at 27 Thyroid Cancer Daughter Thyroid Daughter Heart Daughter cyst Patient Allergies ALLERGIES Allergen Reactions Environmental Aller* Unknown Cockroaches, dust mites, maple trees Lipitor [Atorvastat* GI Upset May of contributed to vomiting Metformin Other: See Comments Renal impairment Percocet [Oxycodone* Vomiting Plaquenil [Hydroxyc* Other: See Comments Due to current level of eye damage Current Medications Current Outpatient Medications on File Prior to Visit Medication Sig finerenone (KERENDIA) 10 mg tablet Take 10 mg by mouth once daily. Dr Hiram cabreraizumabdaphne (SKYRIZI INTRAVENOUS) Inject intravenously. Infusions at [facility] DOXYCYCLINE HYCLATE ORAL Take 100 mg by mouth twice daily. ferrous sulfate 325 mg (65 mg iron) tablet Take 325 mg by mouth three times daily. modafinil (PROVIGIL) 100 mg tablet Take by mouth once daily. tramadol HCl (TRAMADOL ORAL) Take 50 mg by mouth three times daily as needed. metoprolol tartrate, short acting, (LOPRESSOR) 50 mg tablet Take 50 mg by mouth twice daily. epoetin regan-epbx (RETACRIT) 20,000 unit/2 mL injection Inject 20,000 Units subcutaneously once every month. PRN if hgb is under 10 benzonatate (TESSALON PERLE) 100 mg capsule Take 2 capsules by mouth three times daily as needed for up to 10 days. omeprazole (PRILOSEC) 40 mg capsule Take 1 capsule by mouth once daily. DULoxetine (CYMBALTA) 60 mg capsule Take 1 capsule by mouth once daily. traZODone (DESYREL) 150 mg tablet Take 1 tablet by mouth daily at bedtime. Fenofibrate (LOFIBRA) 160 mg tablet Take 1 tablet by mouth once daily. gabapentin (NEURONTIN) 800 mg tablet Take 1 tablet by mouth three times daily for 180 days. metoprolol tartrate, short acting, (LOPRESSOR) 25 mg tablet Take 1 tablet by mouth once daily. Take with a 50 mg tab twice a day for a total of 75 BID. Mesalamine (PENTASA) 500 mg CR capsule Take 1,000 mg by mouth twice daily. diphenoxylate-atropine (LOMOTIL) 2.5-0.025 mg per tablet Take 1 tablet by mouth four times daily as needed. hyoscyamine (LEVSIN) 0.125 mg tablet Take 0.125 mg by mouth every 4 hours as needed. ergocalciferol 50,000 unit capsule (VITAMIN D2, DRISDOL) Take 1 capsule by mouth three times a week. blood sugar diagnostic (CONTOUR NEXT TEST STRIPS) test strip Use to test glucose 6 times daily as directed. DX: E11.8, E11.65, Z79.4, insulin pump dependent. rosuvastatin (CRESTOR) 40 mg tablet Take 1 tablet by mouth daily at bedtime. metoprolol tartrate, short acting, (LOPRESSOR) 50 mg tablet Take 1 tablet by mouth twice daily. Take with a 25 mg tab twice a day for a total of 75 BID. Lancets lancets Use to test blood glucose 6 times daily. ondansetron (ZOFRAN) 8 mg tablet Take 1 tablet by mouth every 12 hours as needed for nausea/vomiting. insulin aspart U-100 (NOVOLOG FLEXPEN U-100 INSULIN) 100 unit/mL (3 mL) INJECT SUBCUTANEOUS THREE TIMES DAILY WITH MEALS PER SSI. TDD: 200 UNITS insulin regular human, CONCENTRATED 500 UNIT/ML, (HUMULIN R) 500 unit/mL soln INFUSE UP TO 2,000 UNITS DAILY VIA INSULIN PUMP Kmolq-0-QWD-EPA-Fish Oil (FISH OIL) 1,000 mg (120 mg-180 mg) cap Take 1 capsule by mouth once daily. cyanocobalamin (VITAMIN B-12) 1,000 mcg tab Take 1 tablet by mouth once daily. modafinil (PROVIGIL) 200 mg tablet Take 1 tablet by mouth once daily for 180 days. Per sleep Med, Dr. Xiao fluticasone-vilanterol (BREO ELLIPTA) 200-25 mcg/dose inhaler Inhale 1 Inhalation as instructed once daily. insulin needles, DISPOSABLE, (PEN NEEDLE) 31 gauge x 5/16 Use as directed 2 times daily, on insulin, E11.42 albuterol HFA (PROAIR HFA) 90 mcg/actuation inhaler Inhale 2 Puffs as instructed every 4 hours as needed for Wheezing/Shortness of Breath. DULoxetine (CYMBALTA) 30 mg capsule Take 1 capsule by mouth once daily. Nebulizer Accessories misc Nebulizer mask Dx: J45.30 Nebulizer Accessories misc Filter Dx: J45.30 albuterol (PROVENTIL) 2.5 mg /3 mL (0.083 %) nebulizer solution Inhale by nebulizer over 5-15 minutes three (3) to four (4) times a day as needed for wheezing and shortness of breath hydrOXYzine pamoate (VISTARIL) 50 mg capsule Take 1 capsule by mouth three times daily as needed for Anxiety (Restlessness). magnesium oxide (MAG-OX) 400 mg (241.3 mg magnesium) tablet Take 1 tablet by mouth once daily. blood-glucose meter, wireless (CONTOUR NEXT LINK) kit Use as directed to test blood glucose. COMPOUNDED PRESCRIPTION Oxygen at 2 L with CPAP at night and PRN during the day dicyclomine (BENTYL) 10 mg capsule Take 1 capsule by mouth three times daily as needed (for loos stools). (Patient taking differently: Take 20 mg by mouth three times daily as needed (for loos stools).) albuterol HFA (PROAIR HFA) 90 mcg/actuation inhaler Inhale 2 Puffs as instructed every 4 hours as needed. (Patient not taking: Reported on 03/28/2022) No current facility-administered medications on file prior to visit. Social History Social History Tobacco Use Smoking status: Never Smokeless tobacco: Never Tobacco comments: No smokers in current home. 2 smokers in childhood home. Substance Use Topics Alcohol use: Yes Comment: occasional Drug use: No Review of Symptoms REVIEW OF SYSTEMS GENERAL: No weight loss, malaise or fevers NECK: Negative for lumps, goiter, pain and significant neck swelling RESPIRATORY: current productive cough x3 weeks. CARDIOVASCULAR: Negative for chest pain, leg swelling, hypertension, CHF or palpitations NEURO: No history of stable headaches, syncope, paralysis, seizures or tremors EXAM: BP 170/92 Pulse 86 Wt 97.5 kg (215 lb) LMP 12/03/2006 SpO2 93% BMI 33.67 kg/m General Appearance: Well appearing, alert, in no acute distress, well-hydrated, well nourished.. Neck: Supple, no adenopathy; no bruits. Lungs: Lungs clear to auscultation. No wheezing, rhonchi, rales.. Heart: RRR without murmur, gallop, or rubs. No ectopy. Extremities: No deformities, edema, skin discoloration, clubbing or cyanosis. Good capillary refill. . Peripheral Pulses: Normal. Health Maintenance List HEPATITIS A(1 of 2 - Risk 2-dose series) Never done MMR(1 of 2 - Risk 2-dose series) Never done BP CONTROLLED (<130/80) Never done SHINGRIX VACCINE(1 of 2) Never done MAMMOGRAM due on 04/18/2021 COVID-19 VACCINE(3 - Booster for Pfizer series) due on 03/28/2023 LDL CHOLESTEROL due on 04/30/2022 DIABETIC FOOT EXAM due on 04/30/2022 ANNUAL PCP TEAM CHRONIC DISEASE VISIT due on 04/30/2022 HEMOGLOBIN/HEMATOCRIT due on 04/30/2022 HBA1C due on 06/02/2022 DILATED RETINAL EXAM due on 06/05/2022 SERUM CREATININE due on 11/18/2022 DTAP,TDAP,TD(2 - Td or Tdap) due on 01/16/2026 COLORECTAL CANCER SCREENING due on 01/22/2031 PNEUMOCOCCAL(4 - PPSV23 if available, else PCV20) due on 06/24/2036 INFLUENZA Completed HEPATITIS C SCREENING Completed HIV SCREENING Completed URINE ALBUMIN:CREATININE RATIO Discontinued PAP TESTING Discontinued HPV TESTING Discontinued Data reviewed ASSESSMENT/PLAN: 1. Hypertension - ICD9: 401.9, ICD10: I10 (primary diagnosis) - poor control - Increase metoprolol (Lopressor/Toprol) - Recommended regular aerobic exercise. - Recommend home blood pressure monitoring, to bring results in on next visit - Follow up in 1 month for BP recheck. - Goal of BP <130/80 2. Chronic kidney disease, stage 4, severely decreased GFR (HCC) - ICD9: 585.4, ICD10: N18.4 - eGFR: Worsening Cont with renal 3. Mixed hyperlipidemia - ICD9: 272.2, ICD10: E78.2 - to be determined upon return of lab results - Continue current therapy. - LIPID PANEL, NONFASTING 4. Obstructive sleep apnea - ICD9: 327.23, ICD10: G47.33 Continue with pulm/sleep med 5. Cirrhosis of liver without ascites, unspecified hepatic cirrhosis type (HCC) - ICD9: 571.5, ICD10: K74.60 Cont with gastro 6. HINTON (nonalcoholic steatohepatitis) - ICD9: 571.8, ICD10: K75.81 Cont with gastro 7. Type 2 diabetes mellitus with moderate nonproliferative retinopathy, with long-term current use of insulin, macular edema presence unspecified, unspecified laterality (HCC) - ICD9: 250.50, 362.05, V58.67, ICD10: E11.3399, Z79.4 Continue with endo 8. Multiple thyroid nodules - ICD9: 241.1, ICD10: E04.2 Cont with endo 9. Iron deficiency anemia, unspecified iron deficiency anemia type - ICD9: 280.9, ICD10: D50.9 Continue with hematology 10. Chronic lymphadenitis - ICD9: 289.1, ICD10: I88.1 Cont with heme 11. Lupus (HCC) - ICD9: 710.0, ICD10: M32.9 Cont with rheum 12. Crohn's disease of small intestine with complication (HCC) - ICD9: 555.0, ICD10: K50.019 Cont with gastro 13. Sjoegren syndrome (HCC) - ICD9: 710.2, ICD10: M35.00 Cont with rheum 14. AYESHA (generalized anxiety disorder) - ICD9: 300.02, ICD10: F41.1 stable 15. Major depressive disorder in full remission, unspecified whether recurrent (HCC) - ICD9: 296.26, ICD10: F32.5 stable 16. Status post transmetatarsal amputation of right foot (HCC) - ICD9: V49.73, ICD10: Z89.431 17. S/P BKA (below knee amputation) unilateral, left (HCC) - ICD9: V49.75, ICD10: Z89.512 18. Diabetic gastroparesis (HCC) - ICD9: 250.60, 536.3, ICD10: E11.43, K31.84 Cont current treatments 19. Pulmonary HTN (HCC) - ICD9: 416.8, ICD10: I27.20 20. PVC's (premature ventricular contractions) - ICD9: 427.69, ICD10: I49.3 stable 21. Bronchitis - ICD9: 490, ICD10: J40 Start atb. Follow up in 1 month for BP recheck Follow up 6 months for wellness. Rosie Somers PA-C documented in this encounter [facility] 03-27-2022 Miscellaneous Notes Spoke with patient's pharmacy. This does not need a PA it is processing fine for a $15 copay. Closed. Received additional questionnaire, Transmission ok Keep open PA faxed, Transmission ok Keep open OK to send. Completed PA for Humulin R u500 on CM and they could not populate the additional questions. Prepared paper PA for [facility]. On your desk to sign and we will fax to [phone] documented in this encounter [facility] 03-24-2022 Note HNO ID: [id number] Author: RT Rupa(R) Service: Radiology Author Type: Technologist Type: Progress Notes Filed: 03/24/2022 11:23 AM Note Text: Radiology Service Progress Note PATIENT NAME: Wendy Lux DATE OF SERVICE: March 24, 2022 TIME: 11:14 AM PATIENT IDENTITY VERIFICATION COMPLETED USING TWO (2) IDENTIFIERS: Name and Date of confirmed by patient verbally. FALL SCREENING: Has the patient had 2 falls in the last year or 1 fall with injury or currently using an Ambulatory Assistive Device (Walker, Cane, Wheelchair, Crutches, etc.)? No PATIENT GENDER DATA: Female. status: : No status: NO. PATIENT RELEVANT IMPLANT DATA REVIEWED: Yes RADIOLOGY DEPARTMENT: General X-ray: Exam(s) Completed: Chest X-Ray PERIPHERAL IV DATA: Not applicable SIGNED BY: RT Rupa(R) March 24, 2022 11:14 AM [facility] 03-24-2022 Note HNO ID: [id number] Author: Nancy Cisse APRN.[employer] Service: ? Author Type: Nurse Practitioner Type: Progress Notes Filed: 03/24/2022 12:02 PM Note Text: Subjective Sore Throat Associated symptoms include congestion and coughing. Pertinent negatives include no ear pain or headaches. Wendy Lux is a 51 year old female who presents with a cough x 3 weeks and sore throat x 2 days. Her granddaughter tested positive for strep yesterday. She took an antibiotic her doctor (Dr. Gandhi) prescribed for the cough. It did not help. She did not have a chest xray. She reports an intermittent fever 101.2 at home. She took chloraseptic lozenges for her sore throat. Review of Systems Constitutional: Positive for fever. HENT: Positive for congestion and sore throat. Negative for ear pain. Respiratory: Positive for cough and sputum production. Cardiovascular: Negative for chest pain. Musculoskeletal: Negative for myalgias. Neurological: Negative for headaches. BP 142/88 Pulse 91 Temp 36.6 ?C (97.9 ?F) Resp 20 Wt 97.5 kg (215 lb) LMP 12/03/2006 SpO2 95% BMI 33.67 kg/m? PAST MEDICAL HISTORY Diagnosis Date Adnexal mass, right 12/16/[address] in 11/2016 Allergic rhinitis 04/17/2006 Allergic rhinitis, cause unspecified 04/17/2006 Arthritis Bilateral renal cysts 07/06/2015 Bulge of lumbar disc without myelopathy 05/15/2016 L4-5 and L5-S1 Carpal tunnel syndrome Chronic lymphadenitis 09/17/[address] Anibal Fry at the [facility]: Had lymph node biopsy a year ago that showed reactive tissue. Chronic nausea 04/30/2021 Chronic pain syndrome 03/06/2020 RA and Lupus related. On Tramadol per Dr. Littlejohn Cirrhosis of liver without ascites (HCC) 01/31/2015 Secondary to fatty liver, liver biopsy proven. CKD (chronic kidney disease) stage 3, GFR 30-59 ml/min ([facility]) 12/09/2017 Class 1 obesity due to excess calories with serious comorbidity and body mass index (BMI) of 30.0 to 30.9 in adult 03/03/2017 Crohn's disease (HCC) 08/21/[address] Cox Diabetic eye exam ([facility]) 04/28/2017 Last done: 12/09/2017 Diabetic gastroparesis ([facility]) 09/24/2015 Empirically diagnosed since had nausea/vomiting, could not tolerate gastric emptying study. Good response to Reglan. Diabetic polyneuropathy 01/31/2015 Diabetic ulcer of right midfoot associated with type 2 diabetes mellitus, with fat layer exposed ([facility]) 07/09/2020 Diastolic dysfunction 11/05/2018 Duodenitis without mention of hemorrhage 10/06/2008 Essential hypertension 08/24/2018 Essential tremor 10/27/2020 Family history of malignant melanoma 11/05/2018 Fatty liver 05/03/2014 Fibromyalgia 07/26/2014 AYESHA (generalized anxiety disorder) 05/18/2017 Gastroesophageal reflux disease without esophagitis 01/31/2015 Hemorrhage of gastrointestinal tract, unspecified History of 2019 novel coronavirus disease (COVID-19) 02/21/2020 02/08/2020 History of 2019 novel coronavirus disease (COVID-19) 02/21/2020 02/08/2020, 08/20/2021 History of TB (tuberculosis) 02/02/2018 History of temporal arteritis 02/05/2016 History of transfusion Hypomagnesemia 11/06/2016 IBS (irritable bowel syndrome) 05/03/2014 Insulin pump status 01/22/2016 Internal hemorrhoids 04/09/2005 Iron deficiency anemia 11/06/2016 Leg edema, right 05/16/2016 Lesion of liver 10/29/2016 Low serum vitamin B12 05/09/2021 Lupus (HCC) Major depressive disorder in full remission (HCC) 05/03/2014 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 2 diabetes mellitus (HCC) 11/06/2016 Mild persistent asthma without complication 01/31/[address] Ramesh: Mild persistent asthma. 04/23/2012 normal spirometry. 04/2012 Methacholine Inhalation Challenge positive at level 5. Mixed hyperlipidemia 03/07/2015 HINTON (nonalcoholic steatohepatitis) 11/06/2016 Nephrolithiasis 05/18/2010 Obesity, Class I, BMI 30-34.9 07/09/2020 Obstructive sleep apnea 10/11/[address] Xiao, Working to get set up with a CPAP at 8 cm H2O with 1 L O2 bled in On home oxygen therapy 2 liters at Osteomyelitis of ankle or foot 04/30/2015 left, prior to left BKA Psychophysiological insomnia 09/14/2018 Pulmonary HTN (HCC) 10/11/2008 Oxygen at home, uses prn. 2L per NC at night PVC's (premature ventricular contractions) 04/30/2021 Seeing [facility], on metoprolol. S/P BKA (below knee amputation) unilateral, left ([facility]) 09/14/2018 Done 08/06/2018 Sjogren's syndrome ([facility]) 08/31/[address] Litteljohn Spinal stenosis, lumbosacral region 05/15/2016 Mild at L4-L5 Status post transmetatarsal amputation of right foot ([facility]) 11/05/2018 Stroke ([facility]) TB lung, latent 07/26/2014 treatment started 06/2014 Tongue biting 08/31/2017 Type 2 diabetes mellitus with proteinuria ([facility]) 02/21/2015 Vitamin D deficiency 05/03/2014 Well adult exam 04/30/2021 Last done: 04/30/2021 PAST SURGICAL HISTORY Procedure Laterality Date 2D ECHO (EXEP) 06/03/2016 EF=55% (more content not included)... [facility] 02-18-2022 Miscellaneous Notes Patient has been identified by name and date of : Yes Patient phones for refill(s): Requested Prescriptions Pending Prescriptions Disp Refills omeprazole (PRILOSEC) 40 mg capsule 90 capsule 1 Sig: Take 1 capsule by mouth once daily. Date of last office visit in primary care: 04/30/21 Please advise. Thank you. Fifi Wyman LPN documented in this encounter [facility] 01-21-2022 Miscellaneous Notes Patient notified. Scheduled with Rosie. Contact patient and get complete PE appt set up even if with [place]. The following approved medication requests have been transmitted electronically. Requested Prescriptions Signed Prescriptions Disp Refills DULoxetine (CYMBALTA) 60 mg capsule 90 capsule 0 Sig: Take 1 capsule by mouth once daily. Authorizing Provider: JOHANN PETERS traZODone (DESYREL) 150 mg tablet 90 tablet 0 Sig: Take 1 tablet by mouth daily at bedtime. Authorizing Provider: JOHANN PETERS Fenofibrate (LOFIBRA) 160 mg tablet 90 tablet 0 Sig: Take 1 tablet by mouth once daily. Authorizing Provider: JOHANN PETERS gabapentin (NEURONTIN) 800 mg tablet 270 tablet 0 Sig: Take 1 tablet by mouth three times daily for 180 days. Authorizing Provider: JOHANN PETERS metoprolol tartrate, short acting, (LOPRESSOR) 25 mg tablet 180 tablet 0 Sig: Take 1 tablet by mouth once daily. Take with a 50 mg tab twice a day for a total of 75 BID. Authorizing Provider: JOHANN PETERS MD [facility] 04/30/21 NOV none scheduled. Gem Guerrero LPN documented in this encounter [facility] 12-27-2021 Miscellaneous Notes Form faxed, Transmission ok CLOSED OK to send. Type of letter/form/fax request: Physician Written Order for Medicare Pump Supplies. Form received from:[employer] Placed on Provider (Dr. Wang) for completion Completed form needs to be faxed to [phone] documented in this encounter [facility] 12-24-2021 Miscellaneous Notes You are scheduled for a Thyroid Biopsy, On 12/26/2021 at 1pm. You are to arrive at 12:45 pm and Report to [facility]: Park and enter the hospital at Main Entrance doors. Take hallway on the right to registration, check in at desk and then go across the solorio to the [facility]. You can expect to be here for 1-2 hours. Landing Support Specialist/Transportation: How will you be arriving for your procedure? Private car. documented in this encounter [facility] 12-17-2021 Miscellaneous Notes Called patient regarding kidney transplant referral, she states she had left leg amputated and uses prosthetic. Also, patient states she uses oxygen all day when needed. Advised patient if and when her pulmonary doctor states she doesn't need oxygen to contact our office back. Also, patient states she uses a C-Pap with oxygen at night as well, as her oxygen drops when she sleeps. I advised patient she can contact other transplant centers to see what their protocol is. Ending referral at this time and patient verbalized understanding. Renetta Sy documented in this encounter [facility] 12-12-2021 Miscellaneous Notes Received a faxed notification from [employer] that patient has been APPROVED FOR CONTOUR NEXT STRIPS. Effective: 12/11/2021--12/11/2022 PA# [id number] Closed. Received a faxed additional questionnaire from [facility]. Completed and faxed back to [phone]. Transmission ok. Will await approval / denial. Second Attempt faxed PA to [facility] following up on the PA we already submitted. Transmission ok Received a PA request from [facility] for RX CONTOUR NEXT GLUCOSE TESTING STRIPS. 600 STRIPS PER 90 DAYS. Completed a Re-Authorization and faxed to [facility] at [phone]. Transmission ok. Will await approval / denial. documented in this encounter [facility] 12-11-2021 Miscellaneous Notes Biopsy scheduled for 12/26/2021. Encounter closed. Called and spoke with PT, expressed understanding Called Radiology at [facility] and had to leave a voicemail with patient information. Patient is aware they will call her to set it up. Keep open until scheduled. Please tell her she needs US-guided FNA of a right thyroid nodule at [facility], order in [place]. Please help her get scheduled. Patient called asking for her Thyroid Ultrasound Results. She had this completed yesterday 12/05/2021. Results in Epic. Please review and advise. Thanks. documented in this encounter [facility] 12-05-2021 History of Present illness Narrative Radiology Service Progress Note PATIENT NAME: Wendy Lux DATE OF SERVICE: December 05, 2021 TIME: 1:52 PM PATIENT IDENTITY VERIFICATION COMPLETED USING TWO (2) IDENTIFIERS: Name and Date of confirmed by patient verbally. FALL SCREENING: Has the patient had 2 falls in the last year or 1 fall with injury or currently using an Ambulatory Assistive Device (Walker, Cane, Wheelchair, Crutches, etc.)? No PATIENT GENDER DATA: Female. status: : No status: NO. PATIENT RELEVANT IMPLANT DATA REVIEWED: Not Applicable RADIOLOGY DEPARTMENT: Ultrasound PERIPHERAL IV DATA: Not applicable SIGNED BY: Hannah Barajas RDMS RVT December 05, 2021 1:52 PM documented in this encounter [facility] 12-02-2021 Instructions Migel Wang MD - 12/02/2021 10:53 AM EDT A1C 7.7% Check thyroid US - will call with results Continue current insulin pump settings Check glucose more often. See me again in 6 months. documented in this encounter [facility] 12-02-2021 History of Present illness Narrative Follow-up 51 year-old female, patient of Dr. Johann Peters, with insulin-requiring type 2 diabetes mellitus since 1999, SLE, diabetic neuropathy, diabetic retinopathy, mixed hyperlipidemia, CKD3. Complicated past medical history. Continues U-500 insulin via insulin pump Still uses Novolog for correction of hyperglycemia, uses insulin sensitivity index 1:2. Pt denies difficulty with insulin injections or self monitoring of blood sugar. No signs of irritation or infection at site of injections. Is taking the insulin as prescribed. Has been monitoring more consistently, checking 6x daily. History of diabetic gastroparesis. She has had left BKA and right TMA, but is ambulating well. Has leg prosthesis (L) and insert for shoe on right foot. Has healed right foot ulcer under MT head. Had COVID vaccine. Had diabetic eye exam in 05/2021 Recently diagnosed with Crohn disease, says kidney function worse. Will be seeing vascular surgeon about vascular shunt soon. Has anemia due to renal disease. Her trade analyst is Dr. Emily Gandhi. Audible [employer] 630G insulin pump with Humulin RU500 insulin at the following insulin pump settings: Basal rate 2.2 'pump units' per hour Bolus: Insulin:carb ratio 1:7 Sensitivity 1:30 Blood glucose target 00:00= 90-140 Insulin duration= 5 Current Outpatient Medications on File Prior to Visit Medication Sig Mesalamine (PENTASA) 500 mg CR capsule Take 1,000 mg by mouth twice daily. diphenoxylate-atropine (LOMOTIL) 2.5-0.025 mg per tablet Take 1 tablet by mouth four times daily as needed. hyoscyamine (LEVSIN) 0.125 mg tablet Take 0.125 mg by mouth every 4 hours as needed. rosuvastatin (CRESTOR) 40 mg tablet Take 1 tablet by mouth daily at bedtime. metoprolol tartrate, short acting, (LOPRESSOR) 50 mg tablet Take 1 tablet by mouth twice daily. Take with a 25 mg tab twice a day for a total of 75 BID. Lancets lancets Use to test blood glucose 6 times daily. Fenofibrate (LOFIBRA) 160 mg tablet Take 1 tablet by mouth once daily. gabapentin (NEURONTIN) 800 mg tablet Take 1 tablet by mouth three times daily for 180 days. metoprolol tartrate, short acting, (LOPRESSOR) 25 mg tablet Take 1 tablet by mouth once daily. Take with a 50 mg tab twice a day for a total of 75 BID. ondansetron (ZOFRAN) 8 mg tablet Take 1 tablet by mouth every 12 hours as needed for nausea/vomiting. insulin aspart U-100 (NOVOLOG FLEXPEN U-100 INSULIN) 100 unit/mL (3 mL) INJECT SUBCUTANEOUS THREE TIMES DAILY WITH MEALS PER SSI. TDD: 200 UNITS omeprazole (PRILOSEC) 40 mg capsule Take 1 capsule by mouth once daily. DULoxetine (CYMBALTA) 60 mg capsule Take 1 capsule by mouth once daily. traZODone (DESYREL) 150 mg tablet Take 1 tablet by mouth daily at bedtime. insulin regular human, CONCENTRATED 500 UNIT/ML, (HUMULIN R) 500 unit/mL soln INFUSE UP TO 2,000 UNITS DAILY VIA INSULIN PUMP ergocalciferol 50,000 unit capsule (VITAMIN D2, DRISDOL) Take one capsule by mouth three days a week Bzxjx-4-HGK-EPA-Fish Oil (FISH OIL) 1,000 mg (120 mg-180 mg) cap Take 1 capsule by mouth once daily. cyanocobalamin (VITAMIN B-12) 1,000 mcg tab Take 1 tablet by mouth once daily. dicyclomine (BENTYL) 10 mg capsule Take 1 capsule by mouth three times daily as needed (for loos stools). (Patient taking differently: Take 20 mg by mouth three times daily as needed (for loos stools).) modafinil (PROVIGIL) 200 mg tablet Take 1 tablet by mouth once daily for 180 days. Per sleep Med, Dr. Xiao blood sugar diagnostic (CONTOUR NEXT TEST STRIPS) test strip Use to test glucose 6 times daily as directed. DX: E11.8, E11.65, Z79.4, insulin pump dependent. fluticasone-vilanterol (BREO ELLIPTA) 200-25 mcg/dose inhaler Inhale 1 Inhalation as instructed once daily. insulin needles, DISPOSABLE, (PEN NEEDLE) 31 gauge x 5/16 Use as directed 2 times daily, on insulin, E11.42 albuterol HFA (PROAIR HFA) 90 mcg/actuation inhaler Inhale 2 Puffs as instructed every 4 hours as needed. albuterol HFA (PROAIR HFA) 90 mcg/actuation inhaler Inhale 2 Puffs as instructed every 4 hours as needed for Wheezing/Shortness of Breath. DULoxetine (CYMBALTA) 30 mg capsule Take 1 capsule by mouth once daily. Nebulizer Accessories [facility] Nebulizer mask Dx: J45.30 Nebulizer Accessories [facility] Filter Dx: J45.30 albuterol (PROVENTIL) 2.5 mg /3 mL (0.083 %) nebulizer solution Inhale by nebulizer over 5-15 minutes three (3) to four (4) times a day as needed for wheezing and shortness of breath hydrOXYzine pamoate (VISTARIL) 50 mg capsule Take 1 capsule by mouth three times daily as needed for Anxiety (Restlessness). magnesium oxide (MAG-OX) 400 mg (241.3 mg magnesium) tablet Take 1 tablet by mouth once daily. blood-glucose meter, wireless (CONTOUR NEXT LINK) kit Use as directed to test blood glucose. COMPOUNDED PRESCRIPTION Oxygen at 2 L with CPAP at night and PRN during the day ALLERGIES Allergen Reactions Environmental Aller* Unknown Cockroaches, dust mites, maple trees Lipitor [Atorvastat* GI Upset May of contributed to vomiting Metformin Other: See Comments Renal impairment Percocet [Oxycodone* Vomiting Plaquenil [Hydroxyc* Other: See Comments Due to current level of eye damage Review of systems: Patient notes no weight changes, fever, fatigue, weakness, change in balance or sensation, visual problems, hearing changes, dizziness, trouble swallowing, nasal difficulties, shortness of breath, chest pain, change in exertional tolerance, foot or leg problems, skin lesions, abdominal pain, diarrhea, constipation, urinary problems, incontinence, back pain, joint pains, anxiety, depression, insomnia, menstrual difficulties, breast lesions/pain/mass. Remainder of review of systems was unremarkable. BP 158/73 (BP Site: Left Arm, BP Position: Sitting, BP Cuff Size: Regular Adult) Pulse 78 Ht 170.2 cm (5' 7.01 ) Wt 99.2 kg (218 lb 9.6 oz) LMP 12/03/2006 SpO2 94% BMI 34.23 kg/m General appearance: Well-appearing, obese (BMI > 30) female, alert, in no acute distress, well-hydrated, well nourished. Weight down 2 pounds vs 01/2021. Blood pressure elevated, pulse regular. Repeat BP 167/82 Skin: Skin color, texture, turgor normal, no suspicious rashes or lesions Head: normocephalic, no masses, lesions, tenderness or abnormalities Eyes: Anicteric sclera. Pupils are equally round. Extraocular movements are intact. Ears: not examined Nose/Sinuses: Nares normal. No drainage or sinus tenderness. Oropharynx: Lips, mucosa, and tongue normal, teeth and gums not examined. Neck: Supple, no adenopathy; no palpable thyroid enlargement. Lungs: Breathing unlabored. Heart: RRR. No ectopy Abdomen: deferred Musculoskeletal: Spine range of motion not tested. Muscular strength intact, Neuro: Gait normal with left leg prosthesis in place. A1C today via Afinion was 7.7%. Latest Reference Range & Units 04/30/21 09:57 Magnesium 1.7 - 2.3 mg/dL 1.0 (L) Vitamin B12 232-1,245 pg/mL 248 Iron 41 - 186 ug/dL 50 TIBC 232 - 386 ug/dL 342 Transferrin Saturation 15 - 57 % 15 Vitamin D 25 Hydroxy 31.0 - 80.0 ng/mL 17.4 (L) Hematocrit 36.0 - 46.0 % 25.7 (L) Total Cholesterol, Nonfasting <200 mg/dL 162 Triglycerides, Nonfasting <150 mg/dL 334 (H) HDL Cholesterol, Nonfasting >39 mg/dL 30 (L) Non HDL Cholesterol, Nonfasting <130 mg/dL 132 (H) Latest Reference Range & Units Most Recent Free T4 0.9 - 1.7 ng/dL 1.1 04/16/20 16:40 TSH 0.270 - 4.200 uU/mL 0.676 04/16/20 16:40 Assessment: Type 2 diabetes mellitus - insulin-requiring, fairly good control, urged more frequent monitoring Obesity - dietary counseling given Hypertension - sub optimal BP control; check BP in the community, stressed goal BP less than 130/80 Diabetic neuropathy - stable CKD - care per Dr. Gandhi in [place] Vitamin D deficiency - continue vitamin D supplement Mixed hyperlipidemia - continue rosuvastatin + fenofibrate Report of thyroid nodule on CT - check thyroid US Plan: Continue current insulin pump settings Thyroid US ordered See me again in 6 months. Migel Wang MD I spent a total of 30 minutes on the date of service which included preparing to see the patient, [id number] patient care, completing clinical documentation, performing a medically appropriate examination, counseling and educating the patient/family/caregiver and ordering medications, tests, or procedures. documented in this encounter [facility] 11-28-2021 Miscellaneous Notes Patient phones requesting refills as follows: Requested Prescriptions Pending Prescriptions Disp Refills rosuvastatin (CRESTOR) 40 mg tablet 90 tablet 1 Sig: Take 1 tablet by mouth daily at bedtime. metoprolol tartrate, short acting, (LOPRESSOR) 50 mg tablet 180 tablet 1 Sig: Take 1 tablet by mouth twice daily. Take with a 25 mg tab twice a day for a total of 75 BID. HAFSA-04/30/21 Labs-11/15/21 NOV-none Please review and advise. Kavya Ward LPN documented in this encounter [facility] 10-18-2021 Miscellaneous Notes The following approved medication requests have been transmitted electronically. Requested Prescriptions Signed Prescriptions Disp Refills Fenofibrate (LOFIBRA) 160 mg tablet 90 tablet 0 Sig: Take 1 tablet by mouth once daily. Authorizing Provider: ROSIE SOMERS gabapentin (NEURONTIN) 800 mg tablet 270 tablet 0 Sig: Take 1 tablet by mouth three times daily for 180 days. Authorizing Provider: ROSIE SOMERS PA-C Patient phones requesting refills as follows: Requested Prescriptions Pending Prescriptions Disp Refills Fenofibrate (LOFIBRA) 160 mg tablet 90 tablet 1 Sig: Take 1 tablet by mouth once daily. gabapentin (NEURONTIN) 800 mg tablet 270 tablet 1 Sig: Take 1 tablet by mouth three times daily for 180 days. [facility] 04/30/21 NOV 10/31/21 Please review and advise. Gabo Montgomery LPN documented in this encounter [facility] 10-18-2021 Miscellaneous Notes Requester: Patient Last Visit in Endocrinology: Provider name: Migel Wang MD , Date 02/04/2021 Next Scheduled Appt in Endo: 12/02/2021 Last Refill: 10/09/20 Number of Refills given: 3. Requested Prescriptions Pending Prescriptions Disp Refills Lancets lancets 600 Each 3 Sig: Use to test blood glucose 6 times daily. Please review and advise. Kristina Grider LPN documented in this encounter [facility] 08-26-2021 Miscellaneous Notes The following approved medication requests have been transmitted electronically. Signed Prescriptions Disp Refills omeprazole (PRILOSEC) 40 mg capsule 90 capsule 1 Sig: Take 1 capsule by mouth once daily. HATTIE: No Authorizing Provider: JOHANN PETERS MD Patient has been identified by name and date of : Yes Pending Prescriptions Disp Refills OMEPRAZOLE 40 MG CAPSULE,DELAYED RELEASE 90 capsule 1 Sig: Take 1 capsule by mouth once daily. HATTIE: No RX INSTRUCTIONS: Patient aware RX will be sent to pharmacy. No need to notify patient. Summer Bravo MA Hafsa: 04/2021 Nov: 10/2021 Last refill: 10/2020 documented in this encounter [facility] documented as of this encounter (statuses as of 08/26/2021) [facility]07-06[facility]22 History of Past illness Narrative* Problem Noted Date Resolved Date COVID-19 virus infection 08/21/2021 022 Overview: 08/20/2021 Palpitations 10/27/2020 02/07/2021 Overview: Seeing [facility] Pneumonia due to COVID-19 virus 07/09/2020 07/10/2020 Diabetic ulcer of right midf oot associated with type 2 diabetes mellitus, with fat layer exposed 07/09/2020 02/07/2021 Family history of malignant melanoma 11/05/2018 11/06/2018 Family history of malignant melanoma 11/05/2018 07/10/2020 Psychophysiological insomnia 09/14/2018 Pain associated with surgical procedure 09/13/1906/30/2019 Overview: Left below knee amputation, 08/06/2018 Chronic obstructive lung disease 08/24/2018 06/30/2019 Insulin resistance 08/03/2018 06/30/2019 History of TB (tuberculosis) 02/02/2018 Osteomyelitis of foot, left, acute 12/09/2017 06/30/2019 Shaking 08/31/2017 06/30/2019 Tongue biting 08/31/2017 11/05/2018 Sjogren's syndrome 08/31/2017 06/30/2019 Overview: Seeing Dr. Littlejohn Diabetic eye exam 04/28/2017 06/30/2019 Overview: Last done: 09/17/2018 Diabetic eye exam 04/28/2017 06/30/2019 Overview: Last done: 12/09/2017 Diabetic eye exam 04/16/2017 06/30/2019 Overview: Last done: 04/15/2017 Neuropathic pain 03/03/2017 06/30/2019 Current use of proton pump inhibitor 03/03/2017 06/30/2019 Adnexal mass, right 12/16/2016 06/30/2019 Overview: 3.[address] in 11/2016 Diabetic eye exam 11/12/2016 06/30/2019 Overview: Last done: 12/01/2016 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 2 diabetes mellitus 11/06/2016 04/12/2020 HINTON (nonalcoholic steatohepatitis) 11/06/2016 04/17/2017 RUQ abdominal mass 11/05/2016 06/30/2019 Lesion of liver 10/29/2016 11/05/2018 RUQ abdominal pain 10/29/2016 12/16/2016 Left temporal headache 10/29/2016 0 Blurred vision, left eye 10/29/2016 020 History of temporal arteritis 02/05/2016 History of temporal arteritis 02/05/2016 Chest pain 01/05/2016 01/09/2016 Acute nonintractable headache 01/05/2016 Diabetic eye exam 11/06/2015 06/30/2019 Overview: Last done: 10/10/2015 Obesity 09/27/2015 06/30/2019 Iron deficiency anemia 09/17/2015 7 Overview: Seeing Dr. 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 Type 2 diabetes mellitus with proteinuria 201506/30/2019 MRSA infection 01/31/2015 03/07/2015 Overview: Started originally with a toe nail. Mild persistent asthma without complication 01/1607/10/2020 Overview: Sees Dr. Ramesh: Mild persistent asthma. 04/23/2012 normal spirometry. 04/2012 Methacholine Inhalation Challenge positive at level 5. 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 Uses O2 as needed day and night. Left hip pain 12/26/2011 03/07/2015 DDD (degenerative disc disease), lumbar 12/26/19 12 06/30/2019 Overview: Sees Dr. 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 04/23/2012 normal spirometry. 04/2012 Methacholine Inhalation Challenge positive at level 5. Allergic rhinitis 04/17/2006 06/30/2019 Abdominal pain, right lower quadrant 02/05/2006 06/30/2019 Diarrhea 04/09/2005 06/30/2019 Internal hemorrhoids without mention of complica tion 04/09/2005 06/30/2019 Internal hemorrhoids 04/09/2005 11/05/2018 Irritable bowel syndrome 02/12/2005 020 Abdominal pain, generalized 06/16 Nonspecific elevation of lev els of transaminase or lactic acid dehydrogenase (LDH) 03/07/2015 On home oxygen therapy 0 Overview: 2 liters at , Sees dr. Xiao documented as of this encounter (statuses as of 09/06/2021) [facility] History of Past illness Narrative* Problem Noted Date Resolved Date COVID-19 virus infection 08/21/2021 022 Overview: 08/20/2021 Palpitations 10/27/2020 02/07/2021 Overview: Seeing [facility] Pneumonia due to COVID-19 virus 07/09/2020 07/10/2020 Diabetic ulcer of right midf oot associated with type 2 diabetes mellitus, with fat layer exposed 07/09/2020 02/07/2021 Family history of malignant melanoma 11/05/2018 11/06/2018 Family history of malignant melanoma 11/05/2018 07/10/2020 Psychophysiological insomnia 09/14/2018 Pain associated with surgical procedure 09/13/19 19 06/30/2019 Overview: Left below knee amputation, 08/06/2018 Chronic obstructive lung disease 08/24/2018 06/30/2019 Insulin resistance 08/03/2018 06/30/2019 History of TB (tuberculosis) 02/02/2018 Osteomyelitis of foot, left, acute 12/09/2017 06/30/2019 Shaking 08/31/2017 06/30/2019 Tongue biting 08/31/2017 11/05/2018 Sjogren's syndrome 08/31/2017 06/30/2019 Overview: Seeing Dr. Littlejohn Diabetic eye exam 04/28/2017 06/30/2019 Overview: Last done: 09/17/2018 Diabetic eye exam 04/28/2017 06/30/2019 Overview: Last done: 12/09/2017 Diabetic eye exam 04/16/2017 06/30/2019 Overview: Last done: 04/15/2017 Neuropathic pain 03/03/2017 06/30/2019 Current use of proton pump inhibitor 03/03/2017 06/30/2019 Adnexal mass, right 12/16/2016 06/30/2019 Overview: 3.[address] in 11/2016 Diabetic eye exam 11/12/2016 06/30/2019 Overview: Last done: 12/01/2016 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 2 diabetes mellitus 11/06/2016 04/12/2020 HINTON (nonalcoholic steatohepatitis) 11/06/2016 04/17/2017 RUQ abdominal mass 11/05/2016 06/30/2019 Lesion of liver 10/29/2016 11/05/2018 RUQ abdominal pain 10/29/2016 12/16/2016 Left temporal headache 10/29/2016 0 Blurred vision, left eye 10/29/2016 020 History of temporal arteritis 02/05/2016 History of temporal arteritis 02/05/2016 Chest pain 01/05/2016 01/09/2016 Acute nonintractable headache 01/05/2016 Diabetic eye exam 11/06/2015 06/30/2019 Overview: Last done: 10/10/2015 Obesity 09/27/2015 06/30/2019 Iron deficiency anemia 09/17/2015 7 Overview: Seeing Dr. 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 Type 2 diabetes mellitus with proteinuria 201506/30/2019 MRSA infection 01/31/2015 03/07/2015 Overview: Started originally with a toe nail. Mild persistent asthma without complication 01/1607/10/2020 Overview: Sees Dr. Ramesh: Mild persistent asthma. 04/23/2012 normal spirometry. 04/2012 Methacholine Inhalation Challenge positive at level 5. 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 Uses O2 as needed day and night. Left hip pain 12/26/2011 03/07/2015 DDD (degenerative disc disease), lumbar 12/26/19 12 06/30/2019 Overview: Sees Dr. 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 04/23/2012 normal spirometry. 04/2012 Methacholine Inhalation Challenge positive at level 5. Allergic rhinitis 04/17/2006 06/30/2019 Abdominal pain, right lower quadrant 02/05/2006 06/30/2019 Diarrhea 04/09/2005 06/30/2019 Internal hemorrhoids without mention of complica tion 04/09/2005 06/30/2019 Internal hemorrhoids 04/09/2005 11/05/2018 Irritable bowel syndrome 02/12/2005 020 Abdominal pain, generalized 06/16 Nonspecific elevation of lev els of transaminase or lactic acid dehydrogenase (LDH) 03/07/2015 On home oxygen therapy 0 Overview: 2 liters at hs, Sees dr. Xiao documented as of this encounter (statuses as of 10/18/2021) [facility] History of Past illness Narrative* Problem Noted Date Resolved Date COVID-19 virus infection 08/21/2021 022 Overview: 08/20/2021 Palpitations 10/27/2020 02/07/2021 Overview: Seeing [facility] Pneumonia due to COVID-19 virus 07/09/2020 07/10/2020 Diabetic ulcer of right midf oot associated with type 2 diabetes mellitus, with fat layer exposed 07/09/2020 02/07/2021 Family history of malignant melanoma 11/05/2018 11/06/2018 Family history of malignant melanoma 11/05/2018 07/10/2020 Psychophysiological insomnia 09/14/2018 Pain associated with surgical procedure 09/13/19 19 06/30/2019 Overview: Left below knee amputation, 08/06/2018 Chronic obstructive lung disease 08/24/2018 06/30/2019 Insulin resistance 08/03/2018 06/30/2019 History of TB (tuberculosis) 02/02/2018 Osteomyelitis of foot, left, acute 12/09/2017 06/30/2019 Shaking 08/31/2017 06/30/2019 Tongue biting 08/31/2017 11/05/2018 Sjogren's syndrome 08/31/2017 06/30/2019 Overview: Seeing Dr. Littlejohn Diabetic eye exam 04/28/2017 06/30/2019 Overview: Last done: 09/17/2018 Diabetic eye exam 04/28/2017 06/30/2019 Overview: Last done: 12/09/2017 Diabetic eye exam 04/16/2017 06/30/2019 Overview: Last done: 04/15/2017 Neuropathic pain 03/03/2017 06/30/2019 Current use of proton pump inhibitor 03/03/2017 06/30/2019 Adnexal mass, right 12/16/2016 06/30/2019 Overview: 3.[address] in 11/2016 Diabetic eye exam 11/12/2016 06/30/2019 Overview: Last done: 12/01/2016 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 2 diabetes mellitus 11/06/2016 04/12/2020 HINTON (nonalcoholic steatohepatitis) 11/06/2016 04/17/2017 RUQ abdominal mass 11/05/2016 06/30/2019 Lesion of liver 10/29/2016 11/05/2018 RUQ abdominal pain 10/29/2016 12/16/2016 Left temporal headache 10/29/2016 0 Blurred vision, left eye 10/29/2016 020 History of temporal arteritis 02/05/2016 History of temporal arteritis 02/05/2016 Chest pain 01/05/2016 01/09/2016 Acute nonintractable headache 01/05/2016 Diabetic eye exam 11/06/2015 06/30/2019 Overview: Last done: 10/10/2015 Obesity 09/27/2015 06/30/2019 Iron deficiency anemia 09/17/2015 7 Overview: Seeing Dr. 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 Type 2 diabetes mellitus with proteinuria 201506/30/2019 MRSA infection 01/31/2015 03/07/2015 Overview: Started originally with a toe nail. Mild persistent asthma without complication 01/1607/10/2020 Overview: Sees Dr. Ramesh: Mild persistent asthma. 04/23/2012 normal spirometry. 04/2012 Methacholine Inhalation Challenge positive at level 5. 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 Uses O2 as needed day and night. Left hip pain 12/26/2011 03/07/2015 DDD (degenerative disc disease), lumbar 12/26/19 12 06/30/2019 Overview: Sees Dr. 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 04/23/2012 normal spirometry. 04/2012 Methacholine Inhalation Challenge positive at level 5. Allergic rhinitis 04/17/2006 06/30/2019 Abdominal pain, right lower quadrant 02/05/2006 06/30/2019 Diarrhea 04/09/2005 06/30/2019 Internal hemorrhoids without mention of complica tion 04/09/2005 06/30/2019 Internal hemorrhoids 04/09/2005 11/05/2018 Irritable bowel syndrome 02/12/2005 020 Abdominal pain, generalized 06/16 Nonspecific elevation of lev els of transaminase or lactic acid dehydrogenase (LDH) 03/07/2015 On home oxygen therapy 0 Overview: 2 liters at , Sees dr. Xiao documented as of this encounter (statuses as of 10/18/2021) [facility] History of Past illness Narrative* Problem Noted Date Resolved Date COVID-19 virus infection 08/21/2021 022 Overview: 08/20/2021 Palpitations 10/27/2020 02/07/2021 Overview: Seeing [facility] Pneumonia due to COVID-19 virus 07/09/2020 07/10/2020 Diabetic ulcer of right midf oot associated with type 2 diabetes mellitus, with fat layer exposed 07/09/2020 02/07/2021 Family history of malignant melanoma 11/05/2018 11/06/2018 Family history of malignant melanoma 11/05/2018 07/10/2020 Psychophysiological insomnia 09/14/2018 Pain associated with surgical procedure 09/13/19 19 06/30/2019 Overview: Left below knee amputation, 08/06/2018 Chronic obstructive lung disease 08/24/2018 06/30/2019 Insulin resistance 08/03/2018 06/30/2019 History of TB (tuberculosis) 02/02/2018 Osteomyelitis of foot, left, acute 12/09/2017 06/30/2019 Shaking 08/31/2017 06/30/2019 Tongue biting 08/31/2017 11/05/2018 Sjogren's syndrome 08/31/2017 06/30/2019 Overview: Seeing Dr. Littlejohn Diabetic eye exam 04/28/2017 06/30/2019 Overview: Last done: 09/17/2018 Diabetic eye exam 04/28/2017 06/30/2019 Overview: Last done: 12/09/2017 Diabetic eye exam 04/16/2017 06/30/2019 Overview: Last done: 04/15/2017 Neuropathic pain 03/03/2017 06/30/2019 Current use of proton pump inhibitor 03/03/2017 06/30/2019 Adnexal mass, right 12/16/2016 06/30/2019 Overview: 3.[address] in 11/2016 Diabetic eye exam 11/12/2016 06/30/2019 Overview: Last done: 12/01/2016 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 2 diabetes mellitus 11/06/2016 04/12/2020 HINTON (nonalcoholic steatohepatitis) 11/06/2016 04/17/2017 RUQ abdominal mass 11/05/2016 06/30/2019 Lesion of liver 10/29/2016 11/05/2018 RUQ abdominal pain 10/29/2016 12/16/2016 Left temporal headache 10/29/2016 0 Blurred vision, left eye 10/29/2016 020 History of temporal arteritis 02/05/2016 History of temporal arteritis 02/05/2016 Chest pain 01/05/2016 01/09/2016 Acute nonintractable headache 01/05/2016 Diabetic eye exam 11/06/2015 06/30/2019 Overview: Last done: 10/10/2015 Obesity 09/27/2015 06/30/2019 Iron deficiency anemia 09/17/2015 7 Overview: Seeing Dr. 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 Type 2 diabetes mellitus with proteinuria 201506/30/2019 MRSA infection 01/31/2015 03/07/2015 Overview: Started originally with a toe nail. Mild persistent asthma without complication 01/1607/10/2020 Overview: Sees Dr. Ramesh: Mild persistent asthma. 04/23/2012 normal spirometry. 04/2012 Methacholine Inhalation Challenge positive at level 5. 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 Uses O2 as needed day and night. Left hip pain 12/26/2011 03/07/2015 DDD (degenerative disc disease), lumbar 12/26/19 12 06/30/2019 Overview: Sees Dr. 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 04/23/2012 normal spirometry. 04/2012 Methacholine Inhalation Challenge positive at level 5. Allergic rhinitis 04/17/2006 06/30/2019 Abdominal pain, right lower quadrant 02/05/2006 06/30/2019 Diarrhea 04/09/2005 06/30/2019 Internal hemorrhoids without mention of complica tion 04/09/2005 06/30/2019 Internal hemorrhoids 04/09/2005 11/05/2018 Irritable bowel syndrome 02/12/2005 020 Abdominal pain, generalized 06/16 Nonspecific elevation of lev els of transaminase or lactic acid dehydrogenase (LDH) 03/07/2015 On home oxygen therapy 0 Overview: 2 liters at , Sees dr. Xiao documented as of this encounter (statuses as of 11/28/2021) [facility] History of Past illness Narrative* Problem Noted Date Resolved Date COVID-19 virus infection 08/21/2021 022 Overview: 08/20/2021 Chronic nausea 04/30/2021 12/03/2021 Palpitations 10/27/2020 02/07/2021 Overview: Seeing [facility] Pneumonia due to COVID-19 virus 07/09/2020 07/10/2020 Diabetic ulcer of right midf oot associated with type 2 diabetes mellitus, with fat layer exposed 07/09/2020 02/07/2021 History of 2019 novel coronavirus disease (COVID -19) 02/21/2020 12/02/2021 Overview: 02/08/2020, 08/20/2021 Family history of malignant melanoma 11/05/2018 11/06/2018 Family history of malignant melanoma 11/05/2018 07/10/2020 Psychophysiological insomnia 09/14/2018 Pain associated with surgical procedure 09/13/19 19 06/30/2019 Overview: Left below knee amputation, 08/06/2018 Chronic obstructive lung disease 08/24/2018 06/30/2019 Insulin resistance 08/03/2018 06/30/2019 History of TB (tuberculosis) 02/02/2018 Overview: Treated 06/2014 History of TB (tuberculosis) 02/02/2018 Osteomyelitis of foot, left, acute 12/09/2017 06/30/2019 Shaking 08/31/2017 06/30/2019 Tongue biting 08/31/2017 11/05/2018 Sjogren's syndrome 08/31/2017 06/30/2019 Overview: Seeing Dr. Littlejohn Diabetic eye exam 04/28/2017 06/30/2019 Overview: Last done: 09/17/2018 Diabetic eye exam 04/28/2017 06/30/2019 Overview: Last done: 12/09/2017 Diabetic eye exam 04/16/2017 06/30/2019 Overview: Last done: 04/15/2017 Neuropathic pain 03/03/2017 06/30/2019 Current use of proton pump inhibitor 03/03/2017 06/30/2019 Adnexal mass, right 12/16/2016 06/30/2019 Overview: 3.[address] in 11/2016 Diabetic eye exam 11/12/2016 06/30/2019 Overview: Last done: 12/01/2016 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 2 diabetes mellitus 11/06/2016 04/12/2020 HINTON (nonalcoholic steatohepatitis) 11/06/2016 04/17/2017 RUQ abdominal mass 11/05/2016 06/30/2019 Lesion of liver 10/29/2016 11/05/2018 RUQ abdominal pain 10/29/2016 12/16/2016 Left temporal headache 10/29/2016 0 Blurred vision, left eye 10/29/2016 020 Bulge of lumbar disc without myelopathy 05/16/19 17 12/02/2021 Overview: L4-5 and L5-S1 History of temporal arteritis 02/05/2016 History of temporal arteritis 02/05/2016 History of temporal arteritis 02/05/2016 Chest pain 01/05/2016 01/09/2016 Acute nonintractable headache 01/05/2016 Diabetic eye exam 11/06/2015 06/30/2019 Overview: Last done: 10/10/2015 Obesity 09/27/2015 06/30/2019 Iron deficiency anemia 09/17/2015 7 Overview: Seeing Dr. 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 Type 2 diabetes mellitus with proteinuria 201506/30/2019 MRSA infection 01/31/2015 03/07/2015 Overview: Started originally with a toe nail. Mild persistent asthma without complication 01/1607/10/2020 Overview: Sees Dr. Ramesh: Mild persistent asthma. 04/23/2012 normal spirometry. 04/2012 Methacholine Inhalation Challenge positive at level 5. 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 Uses O2 as needed day and night. Left hip pain 12/26/2011 03/07/2015 DDD (degenerative disc disease), lumbar 12/26/19 12 06/30/2019 Overview: Sees Dr. 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 04/23/2012 normal spirometry. 04/2012 Methacholine Inhalation Challenge positive at level 5. Allergic rhinitis 04/17/2006 06/30/2019 Abdominal pain, right lower quadrant 02/05/2006 06/30/2019 Diarrhea 04/09/2005 06/30/2019 Internal hemorrhoids without mention of complica tion 04/09/2005 06/30/2019 Internal hemorrhoids 04/09/2005 11/05/2018 Irritable bowel syndrome 02/12/2005 020 Abdominal pain, generalized 06/16 Nonspecific elevation of lev els of transaminase or lactic acid dehydrogenase (LDH) 03/07/2015 On home oxygen therapy 0 Overview: 2 liters at , Sees dr. Xiao documented as of this encounter (statuses as of 12/03/2021) [facility]07-06-2022 History of Past illness Narrative* Problem Noted Date Resolved Date COVID-19 virus infection 08/21/2021 022 Overview: 08/20/2021 Chronic nausea 04/30/2021 12/03/2021 Palpitations 10/27/2020 02/07/2021 Overview: Seeing [facility] Pneumonia due to COVID-19 virus 07/09/2020 07/10/2020 Diabetic ulcer of right midf oot associated with type 2 diabetes mellitus, with fat layer exposed 07/09/2020 02/07/2021 History of 2019 novel coronavirus disease (COVID -19) 02/21/2020 12/02/2021 Overview: 02/08/2020, 08/20/2021 Family history of malignant melanoma 11/05/2018 11/06/2018 Family history of malignant melanoma 11/05/2018 07/10/2020 Psychophysiological insomnia 09/14/2018 Pain associated with surgical procedure 09/13/19 19 06/30/2019 Overview: Left below knee amputation, 08/06/2018 Chronic obstructive lung disease 08/24/2018 06/30/2019 Insulin resistance 08/03/2018 06/30/2019 History of TB (tuberculosis) 02/02/2018 Overview: Treated 06/2014 History of TB (tuberculosis) 02/02/2018 Osteomyelitis of foot, left, acute 12/09/2017 06/30/2019 Shaking 08/31/2017 06/30/2019 Tongue biting 08/31/2017 11/05/2018 Sjogren's syndrome 08/31/2017 06/30/2019 Overview: Seeing Dr. Littlejohn Diabetic eye exam 04/28/2017 06/30/2019 Overview: Last done: 09/17/2018 Diabetic eye exam 04/28/2017 06/30/2019 Overview: Last done: 12/09/2017 Diabetic eye exam 04/16/2017 06/30/2019 Overview: Last done: 04/15/2017 Neuropathic pain 03/03/2017 06/30/2019 Current use of proton pump inhibitor 03/03/2017 06/30/2019 Adnexal mass, right 12/16/2016 06/30/2019 Overview: 3.[address] in 11/2016 Diabetic eye exam 11/12/2016 06/30/2019 Overview: Last done: 12/01/2016 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 2 diabetes mellitus 11/06/2016 04/12/2020 HINTON (nonalcoholic steatohepatitis) 11/06/2016 04/17/2017 RUQ abdominal mass 11/05/2016 06/30/2019 Lesion of liver 10/29/2016 11/05/2018 RUQ abdominal pain 10/29/2016 12/16/2016 Left temporal headache 10/29/2016 0 Blurred vision, left eye 10/29/2016 020 Bulge of lumbar disc without myelopathy 05/16/19 17 12/02/2021 Overview: L4-5 and L5-S1 History of temporal arteritis 02/05/2016 History of temporal arteritis 02/05/2016 History of temporal arteritis 02/05/2016 Chest pain 01/05/2016 01/09/2016 Acute nonintractable headache 01/05/2016 Diabetic eye exam 11/06/2015 06/30/2019 Overview: Last done: 10/10/2015 Obesity 09/27/2015 06/30/2019 Iron deficiency anemia 09/17/2015 7 Overview: Seeing Dr. 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 Type 2 diabetes mellitus with proteinuria 201506/30/2019 MRSA infection 01/31/2015 03/07/2015 Overview: Started originally with a toe nail. Mild persistent asthma without complication 01/1607/10/2020 Overview: Sees Dr. Ramesh: Mild persistent asthma. 04/23/2012 normal spirometry. 04/2012 Methacholine Inhalation Challenge positive at level 5. 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 Uses O2 as needed day and night. Left hip pain 12/26/2011 03/07/2015 DDD (degenerative disc disease), lumbar 12/26/19 12 06/30/2019 Overview: Sees Dr. 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 04/23/2012 normal spirometry. 04/2012 Methacholine Inhalation Challenge positive at level 5. Allergic rhinitis 04/17/2006 06/30/2019 Abdominal pain, right lower quadrant 02/05/2006 06/30/2019 Diarrhea 04/09/2005 06/30/2019 Internal hemorrhoids without mention of complica tion 04/09/2005 06/30/2019 Internal hemorrhoids 04/09/2005 11/05/2018 Irritable bowel syndrome 02/12/2005 020 Abdominal pain, generalized 06/16 Nonspecific elevation of lev els of transaminase or lactic acid dehydrogenase (LDH) 03/07/2015 On home oxygen therapy 0 Overview: 2 liters at , Sees dr. Xiao documented as of this encounter (statuses as of 12/06/2021) [facility]07-[facility]22 History of Past illness Narrative* Problem Noted Date Resolved Date COVID-19 virus infection 08/21/2021 022 Overview: 08/20/2021 Chronic nausea 04/30/2021 12/03/2021 Palpitations 10/27/2020 02/07/2021 Overview: Seeing [facility] Pneumonia due to COVID-19 virus 07/09/2020 07/10/2020 Diabetic ulcer of right midf oot associated with type 2 diabetes mellitus, with fat layer exposed 07/09/2020 02/07/2021 History of 2019 novel coronavirus disease (COVID -19) 02/21/2020 12/02/2021 Overview: 02/08/2020, 08/20/2021 Family history of malignant melanoma 11/05/2018 11/06/2018 Family history of malignant melanoma 11/05/2018 07/10/2020 Psychophysiological insomnia 09/14/2018 Pain associated with surgical procedure 09/13/1906/30/2019 Overview: Left below knee amputation, 08/06/2018 Chronic obstructive lung disease 08/24/2018 06/30/2019 Insulin resistance 08/03/2018 06/30/2019 History of TB (tuberculosis) 02/02/2018 Overview: Treated 06/2014 History of TB (tuberculosis) 02/02/2018 Osteomyelitis of foot, left, acute 12/09/2017 06/30/2019 Shaking 08/31/2017 06/30/2019 Tongue biting 08/31/2017 11/05/2018 Sjogren's syndrome 08/31/2017 06/30/2019 Overview: Seeing Dr. Littlejohn Diabetic eye exam 04/28/2017 06/30/2019 Overview: Last done: 09/17/2018 Diabetic eye exam 04/28/2017 06/30/2019 Overview: Last done: 12/09/2017 Diabetic eye exam 04/16/2017 06/30/2019 Overview: Last done: 04/15/2017 Neuropathic pain 03/03/2017 06/30/2019 Current use of proton pump inhibitor 03/03/2017 06/30/2019 Adnexal mass, right 12/16/2016 06/30/2019 Overview: 3.[address] in 11/2016 Diabetic eye exam 11/12/2016 06/30/2019 Overview: Last done: 12/01/2016 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 2 diabetes mellitus 11/06/2016 04/12/2020 HINTON (nonalcoholic steatohepatitis) 11/06/2016 04/17/2017 RUQ abdominal mass 11/05/2016 06/30/2019 Lesion of liver 10/29/2016 11/05/2018 RUQ abdominal pain 10/29/2016 12/16/2016 Left temporal headache 10/29/2016 0 Blurred vision, left eye 10/29/2016 020 Bulge of lumbar disc without myelopathy 05/16/19 17 12/02/2021 Overview: L4-5 and L5-S1 History of temporal arteritis 02/05/2016 History of temporal arteritis 02/05/2016 History of temporal arteritis 02/05/2016 Chest pain 01/05/2016 01/09/2016 Acute nonintractable headache 01/05/2016 Diabetic eye exam 11/06/2015 06/30/2019 Overview: Last done: 10/10/2015 Obesity 09/27/2015 06/30/2019 Iron deficiency anemia 09/17/2015 7 Overview: Seeing Dr. 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 Type 2 diabetes mellitus with proteinuria 201506/30/2019 MRSA infection 01/31/2015 03/07/2015 Overview: Started originally with a toe nail. Mild persistent asthma without complication 01/1607/10/2020 Overview: Sees Dr. Ramesh: Mild persistent asthma. 04/23/2012 normal spirometry. 04/2012 Methacholine Inhalation Challenge positive at level 5. 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 Uses O2 as needed day and night. Left hip pain 12/26/2011 03/07/2015 DDD (degenerative disc disease), lumbar 12/26/19 12 06/30/2019 Overview: Sees Dr. 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 04/23/2012 normal spirometry. 04/2012 Methacholine Inhalation Challenge positive at level 5. Allergic rhinitis 04/17/2006 06/30/2019 Abdominal pain, right lower quadrant 02/05/2006 06/30/2019 Diarrhea 04/09/2005 06/30/2019 Internal hemorrhoids without mention of complica tion 04/09/2005 06/30/2019 Internal hemorrhoids 04/09/2005 11/05/2018 Irritable bowel syndrome 02/12/2005 020 Abdominal pain, generalized 06/16 Nonspecific elevation of lev els of transaminase or lactic acid dehydrogenase (LDH) 03/07/2015 On home oxygen therapy 0 Overview: 2 liters at , Sees dr. Xiao documented as of this encounter (statuses as of 12/11/2021) [facility]07-[facility] History of Past illness Narrative* Problem Noted Date Resolved Date COVID-19 virus infection 08/21/2021 022 Overview: 08/20/2021 Chronic nausea 04/30/2021 12/03/2021 Palpitations 10/27/2020 02/07/2021 Overview: Seeing [facility] Pneumonia due to COVID-19 virus 07/09/2020 07/10/2020 Diabetic ulcer of right midf oot associated with type 2 diabetes mellitus, with fat layer exposed 07/09/2020 02/07/2021 History of 2019 novel coronavirus disease (COVID -19) 02/21/2020 12/02/2021 Overview: 02/08/2020, 08/20/2021 Family history of malignant melanoma 11/05/2018 11/06/2018 Family history of malignant melanoma 11/05/2018 07/10/2020 Psychophysiological insomnia 09/14/2018 Pain associated with surgical procedure 09/13/19 19 06/30/2019 Overview: Left below knee amputation, 08/06/2018 Chronic obstructive lung disease 08/24/2018 06/30/2019 Insulin resistance 08/03/2018 06/30/2019 History of TB (tuberculosis) 02/02/2018 Overview: Treated 06/2014 History of TB (tuberculosis) 02/02/2018 Osteomyelitis of foot, left, acute 12/09/2017 06/30/2019 Shaking 08/31/2017 06/30/2019 Tongue biting 08/31/2017 11/05/2018 Sjogren's syndrome 08/31/2017 06/30/2019 Overview: Seeing Dr. Littlejohn Diabetic eye exam 04/28/2017 06/30/2019 Overview: Last done: 09/17/2018 Diabetic eye exam 04/28/2017 06/30/2019 Overview: Last done: 12/09/2017 Diabetic eye exam 04/16/2017 06/30/2019 Overview: Last done: 04/15/2017 Neuropathic pain 03/03/2017 06/30/2019 Current use of proton pump inhibitor 03/03/2017 06/30/2019 Adnexal mass, right 12/16/2016 06/30/2019 Overview: 3.[address] in 11/2016 Diabetic eye exam 11/12/2016 06/30/2019 Overview: Last done: 12/01/2016 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 2 diabetes mellitus 11/06/2016 04/12/2020 HINTON (nonalcoholic steatohepatitis) 11/06/2016 04/17/2017 RUQ abdominal mass 11/05/2016 06/30/2019 Lesion of liver 10/29/2016 11/05/2018 RUQ abdominal pain 10/29/2016 12/16/2016 Left temporal headache 10/29/2016 0 Blurred vision, left eye 10/29/2016 020 Bulge of lumbar disc without myelopathy 05/16/19 17 12/02/2021 Overview: L4-5 and L5-S1 History of temporal arteritis 02/05/2016 History of temporal arteritis 02/05/2016 History of temporal arteritis 02/05/2016 Chest pain 01/05/2016 01/09/2016 Acute nonintractable headache 01/05/2016 Diabetic eye exam 11/06/2015 06/30/2019 Overview: Last done: 10/10/2015 Obesity 09/27/2015 06/30/2019 Iron deficiency anemia 09/17/2015 7 Overview: Seeing Dr. 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 Type 2 diabetes mellitus with proteinuria 201506/30/2019 MRSA infection 01/31/2015 03/07/2015 Overview: Started originally with a toe nail. Mild persistent asthma without complication 01/1607/10/2020 Overview: Sees Dr. Ramesh: Mild persistent asthma. 04/23/2012 normal spirometry. 04/2012 Methacholine Inhalation Challenge positive at level 5. 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 Uses O2 as needed day and night. Left hip pain 12/26/2011 03/07/2015 DDD (degenerative disc disease), lumbar 12/26/19 12 06/30/2019 Overview: Sees Dr. 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 04/23/2012 normal spirometry. 04/2012 Methacholine Inhalation Challenge positive at level 5. Allergic rhinitis 04/17/2006 06/30/2019 Abdominal pain, right lower quadrant 02/05/2006 06/30/2019 Diarrhea 04/09/2005 06/30/2019 Internal hemorrhoids without mention of complica tion 04/09/2005 06/30/2019 Internal hemorrhoids 04/09/2005 11/05/2018 Irritable bowel syndrome 02/12/2005 020 Abdominal pain, generalized 06/16 Nonspecific elevation of lev els of transaminase or lactic acid dehydrogenase (LDH) 03/07/2015 On home oxygen therapy 0 Overview: 2 liters at , Sees dr. Xiao documented as of this encounter (statuses as of 12/12/2021) [facility] History of Past illness Narrative* Problem Noted Date Resolved Date COVID-19 virus infection 08/21/2021 022 Overview: 08/20/2021 Chronic nausea 04/30/2021 12/03/2021 Palpitations 10/27/2020 02/07/2021 Overview: Seeing [facility] Pneumonia due to COVID-19 virus 07/09/2020 07/10/2020 Diabetic ulcer of right midf oot associated with type 2 diabetes mellitus, with fat layer exposed 07/09/2020 02/07/2021 History of 2019 novel coronavirus disease (COVID -19) 02/21/2020 12/02/2021 Overview: 02/08/2020, 08/20/2021 Family history of malignant melanoma 11/05/2018 11/06/2018 Family history of malignant melanoma 11/05/2018 07/10/2020 Psychophysiological insomnia 09/14/2018 Pain associated with surgical procedure 09/13/19 19 06/30/2019 Overview: Left below knee amputation, 08/06/2018 Chronic obstructive lung disease 08/24/2018 06/30/2019 Insulin resistance 08/03/2018 06/30/2019 History of TB (tuberculosis) 02/02/2018 Overview: Treated 06/2014 History of TB (tuberculosis) 02/02/2018 Osteomyelitis of foot, left, acute 12/09/2017 06/30/2019 Shaking 08/31/2017 06/30/2019 Tongue biting 08/31/2017 11/05/2018 Sjogren's syndrome 08/31/2017 06/30/2019 Overview: Seeing Dr. Littlejohn Diabetic eye exam 04/28/2017 06/30/2019 Overview: Last done: 09/17/2018 Diabetic eye exam 04/28/2017 06/30/2019 Overview: Last done: 12/09/2017 Diabetic eye exam 04/16/2017 06/30/2019 Overview: Last done: 04/15/2017 Neuropathic pain 03/03/2017 06/30/2019 Current use of proton pump inhibitor 03/03/2017 06/30/2019 Adnexal mass, right 12/16/2016 06/30/2019 Overview: 3.[address] in 11/2016 Diabetic eye exam 11/12/2016 06/30/2019 Overview: Last done: 12/01/2016 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 2 diabetes mellitus 11/06/2016 04/12/2020 HINTON (nonalcoholic steatohepatitis) 11/06/2016 04/17/2017 RUQ abdominal mass 11/05/2016 06/30/2019 Lesion of liver 10/29/2016 11/05/2018 RUQ abdominal pain 10/29/2016 12/16/2016 Left temporal headache 10/29/2016 0 Blurred vision, left eye 10/29/2016 020 Bulge of lumbar disc without myelopathy 05/16/19 17 12/02/2021 Overview: L4-5 and L5-S1 History of temporal arteritis 02/05/2016 History of temporal arteritis 02/05/2016 History of temporal arteritis 02/05/2016 Chest pain 01/05/2016 01/09/2016 Acute nonintractable headache 01/05/2016 Diabetic eye exam 11/06/2015 06/30/2019 Overview: Last done: 10/10/2015 Obesity 09/27/2015 06/30/2019 Iron deficiency anemia 09/17/2015 7 Overview: Seeing Dr. 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 Type 2 diabetes mellitus with proteinuria 201506/30/2019 MRSA infection 01/31/2015 03/07/2015 Overview: Started originally with a toe nail. Mild persistent asthma without complication 01/1607/10/2020 Overview: Sees Dr. Ramesh: Mild persistent asthma. 04/23/2012 normal spirometry. 04/2012 Methacholine Inhalation Challenge positive at level 5. 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 Uses O2 as needed day and night. Left hip pain 12/26/2011 03/07/2015 DDD (degenerative disc disease), lumbar 12/26/19 12 06/30/2019 Overview: Sees Dr. 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 04/23/2012 normal spirometry. 04/2012 Methacholine Inhalation Challenge positive at level 5. Allergic rhinitis 04/17/2006 06/30/2019 Abdominal pain, right lower quadrant 02/05/2006 06/30/2019 Diarrhea 04/09/2005 06/30/2019 Internal hemorrhoids without mention of complica tion 04/09/2005 06/30/2019 Internal hemorrhoids 04/09/2005 11/05/2018 Irritable bowel syndrome 02/12/2005 020 Abdominal pain, generalized 06/16 Nonspecific elevation of lev els of transaminase or lactic acid dehydrogenase (LDH) 03/07/2015 On home oxygen therapy 0 Overview: 2 liters at , Sees dr. Xiao documented as of this encounter (statuses as of 12/17/2021) [facility]07-06-2022 History of Past illness Narrative* Problem Noted Date Resolved Date COVID-19 virus infection 08/21/2021 022 Overview: 08/20/2021 Chronic nausea 04/30/2021 12/03/2021 Palpitations 10/27/2020 02/07/2021 Overview: Seeing [facility] Pneumonia due to COVID-19 virus 07/09/2020 07/10/2020 Diabetic ulcer of right midf oot associated with type 2 diabetes mellitus, with fat layer exposed 07/09/2020 02/07/2021 History of 2019 novel coronavirus disease (COVID -19) 02/21/2020 12/02/2021 Overview: 02/08/2020, 08/20/2021 Family history of malignant melanoma 11/05/2018 11/06/2018 Family history of malignant melanoma 11/05/2018 07/10/2020 Psychophysiological insomnia 09/14/2018 Pain associated with surgical procedure 09/13/1906/30/2019 Overview: Left below knee amputation, 08/06/2018 Chronic obstructive lung disease 08/24/2018 06/30/2019 Insulin resistance 08/03/2018 06/30/2019 History of TB (tuberculosis) 02/02/2018 Overview: Treated 06/2014 History of TB (tuberculosis) 02/02/2018 Osteomyelitis of foot, left, acute 12/09/2017 06/30/2019 Shaking 08/31/2017 06/30/2019 Tongue biting 08/31/2017 11/05/2018 Sjogren's syndrome 08/31/2017 06/30/2019 Overview: Seeing Dr. Littlejohn Diabetic eye exam 04/28/2017 06/30/2019 Overview: Last done: 09/17/2018 Diabetic eye exam 04/28/2017 06/30/2019 Overview: Last done: 12/09/2017 Diabetic eye exam 04/16/2017 06/30/2019 Overview: Last done: 04/15/2017 Neuropathic pain 03/03/2017 06/30/2019 Current use of proton pump inhibitor 03/03/2017 06/30/2019 Adnexal mass, right 12/16/2016 06/30/2019 Overview: 3.[address] in 11/2016 Diabetic eye exam 11/12/2016 06/30/2019 Overview: Last done: 12/01/2016 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 2 diabetes mellitus 11/06/2016 04/12/2020 HINTON (nonalcoholic steatohepatitis) 11/06/2016 04/17/2017 RUQ abdominal mass 11/05/2016 06/30/2019 Lesion of liver 10/29/2016 11/05/2018 RUQ abdominal pain 10/29/2016 12/16/2016 Left temporal headache 10/29/2016 0 Blurred vision, left eye 10/29/2016 020 Bulge of lumbar disc without myelopathy 05/16/19 17 12/02/2021 Overview: L4-5 and L5-S1 History of temporal arteritis 02/05/2016 History of temporal arteritis 02/05/2016 History of temporal arteritis 02/05/2016 Chest pain 01/05/2016 01/09/2016 Acute nonintractable headache 01/05/2016 Diabetic eye exam 11/06/2015 06/30/2019 Overview: Last done: 10/10/2015 Obesity 09/27/2015 06/30/2019 Iron deficiency anemia 09/17/2015 7 Overview: Seeing Dr. 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 Type 2 diabetes mellitus with proteinuria 201506/30/2019 MRSA infection 01/31/2015 03/07/2015 Overview: Started originally with a toe nail. Mild persistent asthma without complication 01/1607/10/2020 Overview: Sees Dr. Ramesh: Mild persistent asthma. 04/23/2012 normal spirometry. 04/2012 Methacholine Inhalation Challenge positive at level 5. 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 Uses O2 as needed day and night. Left hip pain 12/26/2011 03/07/2015 DDD (degenerative disc disease), lumbar 12/26/19 12 06/30/2019 Overview: Sees Dr. 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 04/23/2012 normal spirometry. 04/2012 Methacholine Inhalation Challenge positive at level 5. Allergic rhinitis 04/17/2006 06/30/2019 Abdominal pain, right lower quadrant 02/05/2006 06/30/2019 Diarrhea 04/09/2005 06/30/2019 Internal hemorrhoids without mention of complica tion 04/09/2005 06/30/2019 Internal hemorrhoids 04/09/2005 11/05/2018 Irritable bowel syndrome 02/12/2005 020 Abdominal pain, generalized 06/16 Nonspecific elevation of lev els of transaminase or lactic acid dehydrogenase (LDH) 03/07/2015 On home oxygen therapy 0 Overview: 2 liters at , Sees dr. Xiao documented as of this encounter (statuses as of 12/27/2021) [facility]07-[facility]22 History of Past illness Narrative* Problem Noted Date Resolved Date COVID-19 virus infection 08/21/2021 022 Overview: 08/20/2021 Chronic nausea 04/30/2021 12/03/2021 Palpitations 10/27/2020 02/07/2021 Overview: Seeing [facility] Pneumonia due to COVID-19 virus 07/09/2020 07/10/2020 Diabetic ulcer of right midf oot associated with type 2 diabetes mellitus, with fat layer exposed 07/09/2020 02/07/2021 History of 2019 novel coronavirus disease (COVID -19) 02/21/2020 12/02/2021 Overview: 02/08/2020, 08/20/2021 Family history of malignant melanoma 11/05/2018 11/06/2018 Family history of malignant melanoma 11/05/2018 07/10/2020 Psychophysiological insomnia 09/14/2018 Pain associated with surgical procedure 09/13/1906/30/2019 Overview: Left below knee amputation, 08/06/2018 Chronic obstructive lung disease 08/24/2018 06/30/2019 Insulin resistance 08/03/2018 06/30/2019 History of TB (tuberculosis) 02/02/2018 Overview: Treated 06/2014 History of TB (tuberculosis) 02/02/2018 Osteomyelitis of foot, left, acute 12/09/2017 06/30/2019 Shaking 08/31/2017 06/30/2019 Tongue biting 08/31/2017 11/05/2018 Sjogren's syndrome 08/31/2017 06/30/2019 Overview: Seeing Dr. Littlejohn Diabetic eye exam 04/28/2017 06/30/2019 Overview: Last done: 09/17/2018 Diabetic eye exam 04/28/2017 06/30/2019 Overview: Last done: 12/09/2017 Diabetic eye exam 04/16/2017 06/30/2019 Overview: Last done: 04/15/2017 Neuropathic pain 03/03/2017 06/30/2019 Current use of proton pump inhibitor 03/03/2017 06/30/2019 Adnexal mass, right 12/16/2016 06/30/2019 Overview: 3.[address] in 11/2016 Diabetic eye exam 11/12/2016 06/30/2019 Overview: Last done: 12/01/2016 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 2 diabetes mellitus 11/06/2016 04/12/2020 HINTON (nonalcoholic steatohepatitis) 11/06/2016 04/17/2017 RUQ abdominal mass 11/05/2016 06/30/2019 Lesion of liver 10/29/2016 11/05/2018 RUQ abdominal pain 10/29/2016 12/16/2016 Left temporal headache 10/29/2016 0 Blurred vision, left eye 10/29/2016 020 Bulge of lumbar disc without myelopathy 05/16/1912/02/2021 Overview: L4-5 and L5-S1 History of temporal arteritis 02/05/2016 History of temporal arteritis 02/05/2016 History of temporal arteritis 02/05/2016 Chest pain 01/05/2016 01/09/2016 Acute nonintractable headache 01/05/2016 Diabetic eye exam 11/06/2015 06/30/2019 Overview: Last done: 10/10/2015 Obesity 09/27/2015 06/30/2019 Iron deficiency anemia 09/17/2015 7 Overview: Seeing Dr. 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 Type 2 diabetes mellitus with proteinuria 201506/30/2019 MRSA infection 01/31/2015 03/07/2015 Overview: Started originally with a toe nail. Mild persistent asthma without complication 01/1607/10/2020 Overview: Sees Dr. Ramesh: Mild persistent asthma. 04/23/2012 normal spirometry. 04/2012 Methacholine Inhalation Challenge positive at level 5. 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 Uses O2 as needed day and night. Left hip pain 12/26/2011 03/07/2015 DDD (degenerative disc disease), lumbar 12/26/19 12 06/30/2019 Overview: Sees Dr. 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 04/23/2012 normal spirometry. 04/2012 Methacholine Inhalation Challenge positive at level 5. Allergic rhinitis 04/17/2006 06/30/2019 Abdominal pain, right lower quadrant 02/05/2006 06/30/2019 Diarrhea 04/09/2005 06/30/2019 Internal hemorrhoids without mention of complica tion 04/09/2005 06/30/2019 Internal hemorrhoids 04/09/2005 11/05/2018 Irritable bowel syndrome 02/12/2005 020 Abdominal pain, generalized 06/16 Nonspecific elevation of lev els of transaminase or lactic acid dehydrogenase (LDH) 03/07/2015 On home oxygen therapy 0 Overview: 2 liters at , Sees dr. Xiao documented as of this encounter (statuses as of 01/21/2022) [facility]07-[facility] History of Past illness Narrative* Problem Noted Date Resolved Date COVID-19 virus infection 08/21/2021 022 Overview: 08/20/2021 Chronic nausea 04/30/2021 12/03/2021 Palpitations 10/27/2020 02/07/2021 Overview: Seeing [facility] Pneumonia due to COVID-19 virus 07/09/2020 07/10/2020 Diabetic ulcer of right midf oot associated with type 2 diabetes mellitus, with fat layer exposed 07/09/2020 02/07/2021 History of 2019 novel coronavirus disease (COVID -19) 02/21/2020 12/02/2021 Overview: 02/08/2020, 08/20/2021 Family history of malignant melanoma 11/05/2018 11/06/2018 Family history of malignant melanoma 11/05/2018 07/10/2020 Psychophysiological insomnia 09/14/2018 Pain associated with surgical procedure 09/13/1906/30/2019 Overview: Left below knee amputation, 08/06/2018 Chronic obstructive lung disease 08/24/2018 06/30/2019 Insulin resistance 08/03/2018 06/30/2019 History of TB (tuberculosis) 02/02/2018 Overview: Treated 06/2014 History of TB (tuberculosis) 02/02/2018 Osteomyelitis of foot, left, acute 12/09/2017 06/30/2019 Shaking 08/31/2017 06/30/2019 Tongue biting 08/31/2017 11/05/2018 Sjogren's syndrome 08/31/2017 06/30/2019 Overview: Seeing Dr. Littlejohn Diabetic eye exam 04/28/2017 06/30/2019 Overview: Last done: 09/17/2018 Diabetic eye exam 04/28/2017 06/30/2019 Overview: Last done: 12/09/2017 Diabetic eye exam 04/16/2017 06/30/2019 Overview: Last done: 04/15/2017 Neuropathic pain 03/03/2017 06/30/2019 Current use of proton pump inhibitor 03/03/2017 06/30/2019 Adnexal mass, right 12/16/2016 06/30/2019 Overview: 3.[address] in 11/2016 Diabetic eye exam 11/12/2016 06/30/2019 Overview: Last done: 12/01/2016 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 2 diabetes mellitus 11/06/2016 04/12/2020 HINTON (nonalcoholic steatohepatitis) 11/06/2016 04/17/2017 RUQ abdominal mass 11/05/2016 06/30/2019 Lesion of liver 10/29/2016 11/05/2018 RUQ abdominal pain 10/29/2016 12/16/2016 Left temporal headache 10/29/2016 0 Blurred vision, left eye 10/29/2016 020 Bulge of lumbar disc without myelopathy 05/16/19 17 12/02/2021 Overview: L4-5 and L5-S1 History of temporal arteritis 02/05/2016 History of temporal arteritis 02/05/2016 History of temporal arteritis 02/05/2016 Chest pain 01/05/2016 01/09/2016 Acute nonintractable headache 01/05/2016 Diabetic eye exam 11/06/2015 06/30/2019 Overview: Last done: 10/10/2015 Obesity 09/27/2015 06/30/2019 Iron deficiency anemia 09/17/2015 7 Overview: Seeing Dr. 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 Type 2 diabetes mellitus with proteinuria 201506/30/2019 MRSA infection 01/31/2015 03/07/2015 Overview: Started originally with a toe nail. Mild persistent asthma without complication 01/1607/10/2020 Overview: Sees Dr. Ramesh: Mild persistent asthma. 04/23/2012 normal spirometry. 04/2012 Methacholine Inhalation Challenge positive at level 5. 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 Uses O2 as needed day and night. Left hip pain 12/26/2011 03/07/2015 DDD (degenerative disc disease), lumbar 12/26/19 12 06/30/2019 Overview: Sees Dr. 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 04/23/2012 normal spirometry. 04/2012 Methacholine Inhalation Challenge positive at level 5. Allergic rhinitis 04/17/2006 06/30/2019 Abdominal pain, right lower quadrant 02/05/2006 06/30/2019 Diarrhea 04/09/2005 06/30/2019 Internal hemorrhoids without mention of complica tion 04/09/2005 06/30/2019 Internal hemorrhoids 04/09/2005 11/05/2018 Irritable bowel syndrome 02/12/2005 020 Abdominal pain, generalized 06/16 Nonspecific elevation of lev els of transaminase or lactic acid dehydrogenase (LDH) 03/07/2015 On home oxygen therapy 0 Overview: 2 liters at , Sees dr. Xiao documented as of this encounter (statuses as of 02/17/2022) [facility] History of Past illness Narrative* Problem Noted Date Resolved Date COVID-19 virus infection 08/21/2021 022 Overview: 08/20/2021 Chronic nausea 04/30/2021 12/03/2021 Palpitations 10/27/2020 02/07/2021 Overview: Seeing [facility] Pneumonia due to COVID-19 virus 07/09/2020 07/10/2020 Diabetic ulcer of right midf oot associated with type 2 diabetes mellitus, with fat layer exposed 07/09/2020 02/07/2021 History of 2019 novel coronavirus disease (COVID -19) 02/21/2020 12/02/2021 Overview: 02/08/2020, 08/20/2021 Family history of malignant melanoma 11/05/2018 11/06/2018 Family history of malignant melanoma 11/05/2018 07/10/2020 Psychophysiological insomnia 09/14/2018 Pain associated with surgical procedure 09/13/19 19 06/30/2019 Overview: Left below knee amputation, 08/06/2018 Chronic obstructive lung disease 08/24/2018 06/30/2019 Insulin resistance 08/03/2018 06/30/2019 History of TB (tuberculosis) 02/02/2018 Overview: Treated 06/2014 History of TB (tuberculosis) 02/02/2018 Osteomyelitis of foot, left, acute 12/09/2017 06/30/2019 Shaking 08/31/2017 06/30/2019 Tongue biting 08/31/2017 11/05/2018 Sjogren's syndrome 08/31/2017 06/30/2019 Overview: Seeing Dr. Littlejohn Diabetic eye exam 04/28/2017 06/30/2019 Overview: Last done: 09/17/2018 Diabetic eye exam 04/28/2017 06/30/2019 Overview: Last done: 12/09/2017 Diabetic eye exam 04/16/2017 06/30/2019 Overview: Last done: 04/15/2017 Neuropathic pain 03/03/2017 06/30/2019 Current use of proton pump inhibitor 03/03/2017 06/30/2019 Adnexal mass, right 12/16/2016 06/30/2019 Overview: 3.[address] in 11/2016 Diabetic eye exam 11/12/2016 06/30/2019 Overview: Last done: 12/01/2016 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 2 diabetes mellitus 11/06/2016 04/12/2020 HINTON (nonalcoholic steatohepatitis) 11/06/2016 04/17/2017 RUQ abdominal mass 11/05/2016 06/30/2019 Lesion of liver 10/29/2016 11/05/2018 RUQ abdominal pain 10/29/2016 12/16/2016 Left temporal headache 10/29/2016 0 Blurred vision, left eye 10/29/2016 020 Bulge of lumbar disc without myelopathy 05/16/19 17 12/02/2021 Overview: L4-5 and L5-S1 History of temporal arteritis 02/05/2016 History of temporal arteritis 02/05/2016 History of temporal arteritis 02/05/2016 Chest pain 01/05/2016 01/09/2016 Acute nonintractable headache 01/05/2016 Diabetic eye exam 11/06/2015 06/30/2019 Overview: Last done: 10/10/2015 Obesity 09/27/2015 06/30/2019 Iron deficiency anemia 09/17/2015 7 Overview: Seeing Dr. 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 Type 2 diabetes mellitus with proteinuria 201506/30/2019 MRSA infection 01/31/2015 03/07/2015 Overview: Started originally with a toe nail. Mild persistent asthma without complication 01/1607/10/2020 Overview: Sees Dr. Ramesh: Mild persistent asthma. 04/23/2012 normal spirometry. 04/2012 Methacholine Inhalation Challenge positive at level 5. 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 Uses O2 as needed day and night. Left hip pain 12/26/2011 03/07/2015 DDD (degenerative disc disease), lumbar 12/26/19 12 06/30/2019 Overview: Sees Dr. 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 04/23/2012 normal spirometry. 04/2012 Methacholine Inhalation Challenge positive at level 5. Allergic rhinitis 04/17/2006 06/30/2019 Abdominal pain, right lower quadrant 02/05/2006 06/30/2019 Diarrhea 04/09/2005 06/30/2019 Internal hemorrhoids without mention of complica tion 04/09/2005 06/30/2019 Internal hemorrhoids 04/09/2005 11/05/2018 Irritable bowel syndrome 02/12/2005 020 Abdominal pain, generalized 06/16 Nonspecific elevation of lev els of transaminase or lactic acid dehydrogenase (LDH) 03/07/2015 On home oxygen therapy 0 Overview: 2 liters at , Sees dr. Xiao documented as of this encounter (statuses as of 02/20/2022) [facility]07-06-2022 History of Past illness Narrative* Problem Noted Date Resolved Date COVID-19 virus infection 08/21/2021 022 Overview: 08/20/2021 Chronic nausea 04/30/2021 12/03/2021 Palpitations 10/27/2020 02/07/2021 Overview: Seeing [facility] Pneumonia due to COVID-19 virus 07/09/2020 07/10/2020 Diabetic ulcer of right midf oot associated with type 2 diabetes mellitus, with fat layer exposed 07/09/2020 02/07/2021 History of 2019 novel coronavirus disease (COVID -19) 02/21/2020 12/02/2021 Overview: 02/08/2020, 08/20/2021 Family history of malignant melanoma 11/05/2018 11/06/2018 Family history of malignant melanoma 11/05/2018 07/10/2020 Psychophysiological insomnia 09/14/2018 Pain associated with surgical procedure 09/13/1906/30/2019 Overview: Left below knee amputation, 08/06/2018 Chronic obstructive lung disease 08/24/2018 06/30/2019 Insulin resistance 08/03/2018 06/30/2019 History of TB (tuberculosis) 02/02/2018 Overview: Treated 06/2014 History of TB (tuberculosis) 02/02/2018 Osteomyelitis of foot, left, acute 12/09/2017 06/30/2019 Shaking 08/31/2017 06/30/2019 Tongue biting 08/31/2017 11/05/2018 Sjogren's syndrome 08/31/2017 06/30/2019 Overview: Seeing Dr. Littlejohn Diabetic eye exam 04/28/2017 06/30/2019 Overview: Last done: 09/17/2018 Diabetic eye exam 04/28/2017 06/30/2019 Overview: Last done: 12/09/2017 Diabetic eye exam 04/16/2017 06/30/2019 Overview: Last done: 04/15/2017 Neuropathic pain 03/03/2017 06/30/2019 Current use of proton pump inhibitor 03/03/2017 06/30/2019 Adnexal mass, right 12/16/2016 06/30/2019 Overview: 3.[address] in 11/2016 Diabetic eye exam 11/12/2016 06/30/2019 Overview: Last done: 12/01/2016 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 2 diabetes mellitus 11/06/2016 04/12/2020 HINTON (nonalcoholic steatohepatitis) 11/06/2016 04/17/2017 RUQ abdominal mass 11/05/2016 06/30/2019 Lesion of liver 10/29/2016 11/05/2018 RUQ abdominal pain 10/29/2016 12/16/2016 Left temporal headache 10/29/2016 0 Blurred vision, left eye 10/29/2016 020 Bulge of lumbar disc without myelopathy 05/16/19 17 12/02/2021 Overview: L4-5 and L5-S1 History of temporal arteritis 02/05/2016 History of temporal arteritis 02/05/2016 History of temporal arteritis 02/05/2016 Chest pain 01/05/2016 01/09/2016 Acute nonintractable headache 01/05/2016 Diabetic eye exam 11/06/2015 06/30/2019 Overview: Last done: 10/10/2015 Obesity 09/27/2015 06/30/2019 Iron deficiency anemia 09/17/2015 7 Overview: Seeing Dr. 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 Type 2 diabetes mellitus with proteinuria 201506/30/2019 MRSA infection 01/31/2015 03/07/2015 Overview: Started originally with a toe nail. Mild persistent asthma without complication 01/1607/10/2020 Overview: Sees Dr. Ramseh: Mild persistent asthma. 04/23/2012 normal spirometry. 04/2012 Methacholine Inhalation Challenge positive at level 5. 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 Uses O2 as needed day and night. Left hip pain 12/26/2011 03/07/2015 DDD (degenerative disc disease), lumbar 12/26/19 12 06/30/2019 Overview: Sees Dr. 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 04/23/2012 normal spirometry. 04/2012 Methacholine Inhalation Challenge positive at level 5. Allergic rhinitis 04/17/2006 06/30/2019 Abdominal pain, right lower quadrant 02/05/2006 06/30/2019 Diarrhea 04/09/2005 06/30/2019 Internal hemorrhoids without mention of complica tion 04/09/2005 06/30/2019 Internal hemorrhoids 04/09/2005 11/05/2018 Irritable bowel syndrome 02/12/2005 020 Abdominal pain, generalized 06/16 Nonspecific elevation of lev els of transaminase or lactic acid dehydrogenase (LDH) 03/07/2015 On home oxygen therapy 0 Overview: 2 liters at , Sees dr. Xiao documented as of this encounter (statuses as of 02/25/2022) [facility]07-[facility]-2022 History of Past illness Narrative* Problem Noted Date Resolved Date COVID-19 virus infection 08/21/2021 022 Overview: 08/20/2021 Chronic nausea 04/30/2021 12/03/2021 Palpitations 10/27/2020 02/07/2021 Overview: Seeing [facility] Pneumonia due to COVID-19 virus 07/09/2020 07/10/2020 Diabetic ulcer of right midf oot associated with type 2 diabetes mellitus, with fat layer exposed 07/09/2020 02/07/2021 History of 2019 novel coronavirus disease (COVID -19) 02/21/2020 12/02/2021 Overview: 02/08/2020, 08/20/2021 Family history of malignant melanoma 11/05/2018 11/06/2018 Family history of malignant melanoma 11/05/2018 07/10/2020 Psychophysiological insomnia 09/14/2018 Pain associated with surgical procedure 09/13/1906/30/2019 Overview: Left below knee amputation, 08/06/2018 Chronic obstructive lung disease 08/24/2018 06/30/2019 Insulin resistance 08/03/2018 06/30/2019 History of TB (tuberculosis) 02/02/2018 Overview: Treated 06/2014 History of TB (tuberculosis) 02/02/2018 Osteomyelitis of foot, left, acute 12/09/2017 06/30/2019 Shaking 08/31/2017 06/30/2019 Tongue biting 08/31/2017 11/05/2018 Sjogren's syndrome 08/31/2017 06/30/2019 Overview: Seeing Dr. Littlejohn Diabetic eye exam 04/28/2017 06/30/2019 Overview: Last done: 09/17/2018 Diabetic eye exam 04/28/2017 06/30/2019 Overview: Last done: 12/09/2017 Diabetic eye exam 04/16/2017 06/30/2019 Overview: Last done: 04/15/2017 Neuropathic pain 03/03/2017 06/30/2019 Current use of proton pump inhibitor 03/03/2017 06/30/2019 Adnexal mass, right 12/16/2016 06/30/2019 Overview: 3.[address] in 11/2016 Diabetic eye exam 11/12/2016 06/30/2019 Overview: Last done: 12/01/2016 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 2 diabetes mellitus 11/06/2016 04/12/2020 HINTON (nonalcoholic steatohepatitis) 11/06/2016 04/17/2017 RUQ abdominal mass 11/05/2016 06/30/2019 Lesion of liver 10/29/2016 11/05/2018 RUQ abdominal pain 10/29/2016 12/16/2016 Left temporal headache 10/29/2016 0 Blurred vision, left eye 10/29/2016 020 Bulge of lumbar disc without myelopathy 05/16/19 17 12/02/2021 Overview: L4-5 and L5-S1 History of temporal arteritis 02/05/2016 History of temporal arteritis 02/05/2016 History of temporal arteritis 02/05/2016 Chest pain 01/05/2016 01/09/2016 Acute nonintractable headache 01/05/2016 Diabetic eye exam 11/06/2015 06/30/2019 Overview: Last done: 10/10/2015 Obesity 09/27/2015 06/30/2019 Iron deficiency anemia 09/17/2015 7 Overview: Seeing Dr. 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 Type 2 diabetes mellitus with proteinuria 201506/30/2019 MRSA infection 01/31/2015 03/07/2015 Overview: Started originally with a toe nail. Mild persistent asthma without complication 01/1607/10/2020 Overview: Sees Dr. Ramesh: Mild persistent asthma. 04/23/2012 normal spirometry. 04/2012 Methacholine Inhalation Challenge positive at level 5. 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 Uses O2 as needed day and night. Left hip pain 12/26/2011 03/07/2015 DDD (degenerative disc disease), lumbar 12/26/19 12 06/30/2019 Overview: Sees Dr. 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 04/23/2012 normal spirometry. 04/2012 Methacholine Inhalation Challenge positive at level 5. Allergic rhinitis 04/17/2006 06/30/2019 Abdominal pain, right lower quadrant 02/05/2006 06/30/2019 Diarrhea 04/09/2005 06/30/2019 Internal hemorrhoids without mention of complica tion 04/09/2005 06/30/2019 Internal hemorrhoids 04/09/2005 11/05/2018 Irritable bowel syndrome 02/12/2005 020 Abdominal pain, generalized 06/16 Nonspecific elevation of lev els of transaminase or lactic acid dehydrogenase (LDH) 03/07/2015 On home oxygen therapy 0 Overview: 2 liters at [facility], Sees dr. Xiao documented as of this encounter (statuses as of 03/27/2022) [facility]07-[facility]22 History of Past illness Narrative* Problem Noted Date Resolved Date COVID-19 virus infection 08/21/2021 022 Overview: 08/20/2021 Chronic nausea 04/30/2021 12/03/2021 Palpitations 10/27/2020 02/07/2021 Overview: Seeing [facility] Pneumonia due to COVID-19 virus 07/09/2020 07/10/2020 Diabetic ulcer of right midf oot associated with type 2 diabetes mellitus, with fat layer exposed 07/09/2020 02/07/2021 History of 2019 novel coronavirus disease (COVID -19) 02/21/2020 12/02/2021 Overview: 02/08/2020, 08/20/2021 Family history of malignant melanoma 11/05/2018 11/06/2018 Family history of malignant melanoma 11/05/2018 07/10/2020 Psychophysiological insomnia 09/14/2018 Pain associated with surgical procedure 09/13/1906/30/2019 Overview: Left below knee amputation, 08/06/2018 Chronic obstructive lung disease 08/24/2018 06/30/2019 Insulin resistance 08/03/2018 06/30/2019 History of TB (tuberculosis) 02/02/2018 Overview: Treated 06/2014 History of TB (tuberculosis) 02/02/2018 Osteomyelitis of foot, left, acute 12/09/2017 06/30/2019 Shaking 08/31/2017 06/30/2019 Tongue biting 08/31/2017 11/05/2018 Sjogren's syndrome 08/31/2017 06/30/2019 Overview: Seeing Dr. Littlejohn Diabetic eye exam 04/28/2017 06/30/2019 Overview: Last done: 09/17/2018 Diabetic eye exam 04/28/2017 06/30/2019 Overview: Last done: 12/09/2017 Diabetic eye exam 04/16/2017 06/30/2019 Overview: Last done: 04/15/2017 Neuropathic pain 03/03/2017 06/30/2019 Current use of proton pump inhibitor 03/03/2017 06/30/2019 Adnexal mass, right 12/16/2016 06/30/2019 Overview: 3.[address] in 11/2016 Diabetic eye exam 11/12/2016 06/30/2019 Overview: Last done: 12/01/2016 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 2 diabetes mellitus 11/06/2016 04/12/2020 HINTON (nonalcoholic steatohepatitis) 11/06/2016 04/17/2017 RUQ abdominal mass 11/05/2016 06/30/2019 Lesion of liver 10/29/2016 11/05/2018 RUQ abdominal pain 10/29/2016 12/16/2016 Left temporal headache 10/29/2016 0 Blurred vision, left eye 10/29/2016 020 Bulge of lumbar disc without myelopathy 05/16/19 17 12/02/2021 Overview: L4-5 and L5-S1 History of temporal arteritis 02/05/2016 History of temporal arteritis 02/05/2016 History of temporal arteritis 02/05/2016 Chest pain 01/05/2016 01/09/2016 Acute nonintractable headache 01/05/2016 Diabetic eye exam 11/06/2015 06/30/2019 Overview: Last done: 10/10/2015 Obesity 09/27/2015 06/30/2019 Iron deficiency anemia 09/17/2015 7 Overview: Seeing Dr. 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 Type 2 diabetes mellitus with proteinuria 201506/30/2019 MRSA infection 01/31/2015 03/07/2015 Overview: Started originally with a toe nail. Mild persistent asthma without complication 01/1607/10/2020 Overview: Sees Dr. Ramesh: Mild persistent asthma. 04/23/2012 normal spirometry. 04/2012 Methacholine Inhalation Challenge positive at level 5. 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 Uses O2 as needed day and night. Left hip pain 12/26/2011 03/07/2015 DDD (degenerative disc disease), lumbar 12/26/19 12 06/30/2019 Overview: Sees Dr. 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 04/23/2012 normal spirometry. 04/2012 Methacholine Inhalation Challenge positive at level 5. Allergic rhinitis 04/17/2006 06/30/2019 Abdominal pain, right lower quadrant 02/05/2006 06/30/2019 Diarrhea 04/09/2005 06/30/2019 Internal hemorrhoids without mention of complica tion 04/09/2005 06/30/2019 Internal hemorrhoids 04/09/2005 11/05/2018 Irritable bowel syndrome 02/12/2005 020 Abdominal pain, generalized 06/16 Nonspecific elevation of lev els of transaminase or lactic acid dehydrogenase (LDH) 03/07/2015 On home oxygen therapy 0 Overview: 2 liters at , Sees dr. Xiao documented as of this encounter (statuses as of 03/28/2022) [facility] History of Past illness Narrative* Problem Noted Date Resolved Date COVID-19 virus infection 08/21/2021 022 Overview: 08/20/2021 Chronic nausea 04/30/2021 12/03/2021 Palpitations 10/27/2020 02/07/2021 Overview: Seeing [facility] Pneumonia due to COVID-19 virus 07/09/2020 07/10/2020 Diabetic ulcer of right midf oot associated with type 2 diabetes mellitus, with fat layer exposed 07/09/2020 02/07/2021 History of 2019 novel coronavirus disease (COVID -19) 02/21/2020 12/02/2021 Overview: 02/08/2020, 08/20/2021 Family history of malignant melanoma 11/05/2018 11/06/2018 Family history of malignant melanoma 11/05/2018 07/10/2020 Psychophysiological insomnia 09/14/2018 Pain associated with surgical procedure 09/13/1906/30/2019 Overview: Left below knee amputation, 08/06/2018 Chronic obstructive lung disease 08/24/2018 06/30/2019 Insulin resistance 08/03/2018 06/30/2019 History of TB (tuberculosis) 02/02/2018 Overview: Treated 06/2014 History of TB (tuberculosis) 02/02/2018 Osteomyelitis of foot, left, acute 12/09/2017 06/30/2019 Shaking 08/31/2017 06/30/2019 Tongue biting 08/31/2017 11/05/2018 Sjogren's syndrome 08/31/2017 06/30/2019 Overview: Seeing Dr. Littlejohn Diabetic eye exam 04/28/2017 06/30/2019 Overview: Last done: 09/17/2018 Diabetic eye exam 04/28/2017 06/30/2019 Overview: Last done: 12/09/2017 Diabetic eye exam 04/16/2017 06/30/2019 Overview: Last done: 04/15/2017 Neuropathic pain 03/03/2017 06/30/2019 Current use of proton pump inhibitor 03/03/2017 06/30/2019 Adnexal mass, right 12/16/2016 06/30/2019 Overview: 3.[address] in 11/2016 Diabetic eye exam 11/12/2016 06/30/2019 Overview: Last done: 12/01/2016 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 2 diabetes mellitus 11/06/2016 04/12/2020 HINTON (nonalcoholic steatohepatitis) 11/06/2016 04/17/2017 RUQ abdominal mass 11/05/2016 06/30/2019 Lesion of liver 10/29/2016 11/05/2018 RUQ abdominal pain 10/29/2016 12/16/2016 Left temporal headache 10/29/2016 0 Blurred vision, left eye 10/29/2016 020 Bulge of lumbar disc without myelopathy 05/16/19 17 12/02/2021 Overview: L4-5 and L5-S1 History of temporal arteritis 02/05/2016 History of temporal arteritis 02/05/2016 History of temporal arteritis 02/05/2016 Chest pain 01/05/2016 01/09/2016 Acute nonintractable headache 01/05/2016 Diabetic eye exam 11/06/2015 06/30/2019 Overview: Last done: 10/10/2015 Obesity 09/27/2015 06/30/2019 Iron deficiency anemia 09/17/2015 7 Overview: Seeing Dr. 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 Type 2 diabetes mellitus with proteinuria 201506/30/2019 MRSA infection 01/31/2015 03/07/2015 Overview: Started originally with a toe nail. Mild persistent asthma without complication 01/1607/10/2020 Overview: Sees Dr. Ramesh: Mild persistent asthma. 04/23/2012 normal spirometry. 04/2012 Methacholine Inhalation Challenge positive at level 5. 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 Uses O2 as needed day and night. Left hip pain 12/26/2011 03/07/2015 DDD (degenerative disc disease), lumbar 12/26/19 12 06/30/2019 Overview: Sees Dr. 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 04/23/2012 normal spirometry. 04/2012 Methacholine Inhalation Challenge positive at level 5. Allergic rhinitis 04/17/2006 06/30/2019 Abdominal pain, right lower quadrant 02/05/2006 06/30/2019 Diarrhea 04/09/2005 06/30/2019 Internal hemorrhoids without mention of complica tion 04/09/2005 06/30/2019 Internal hemorrhoids 04/09/2005 11/05/2018 Irritable bowel syndrome 02/12/2005 020 Abdominal pain, generalized 06/16 Nonspecific elevation of lev els of transaminase or lactic acid dehydrogenase (LDH) 03/07/2015 On home oxygen therapy 0 Overview: 2 liters at , Sees dr. Xiao documented as of this encounter (statuses as of 04/03/2022) [facility]07-06-2022 History of Past illness Narrative* Problem Noted Date Resolved Date COVID-19 virus infection 08/21/2021 022 Overview: 08/20/2021 Chronic nausea 04/30/2021 12/03/2021 Palpitations 10/27/2020 02/07/2021 Overview: Seeing [facility] Pneumonia due to COVID-19 virus 07/09/2020 07/10/2020 Diabetic ulcer of right midf oot associated with type 2 diabetes mellitus, with fat layer exposed 07/09/2020 02/07/2021 History of 2019 novel coronavirus disease (COVID -19) 02/21/2020 12/02/2021 Overview: 02/08/2020, 08/20/2021 Family history of malignant melanoma 11/05/2018 11/06/2018 Family history of malignant melanoma 11/05/2018 07/10/2020 Psychophysiological insomnia 09/14/2018 Pain associated with surgical procedure 09/13/19 19 06/30/2019 Overview: Left below knee amputation, 08/06/2018 Chronic obstructive lung disease 08/24/2018 06/30/2019 Insulin resistance 08/03/2018 06/30/2019 History of TB (tuberculosis) 02/02/2018 Overview: Treated 06/2014 History of TB (tuberculosis) 02/02/2018 Osteomyelitis of foot, left, acute 12/09/2017 06/30/2019 Shaking 08/31/2017 06/30/2019 Tongue biting 08/31/2017 11/05/2018 Sjogren's syndrome 08/31/2017 06/30/2019 Overview: Seeing Dr. Littlejohn Diabetic eye exam 04/28/2017 06/30/2019 Overview: Last done: 09/17/2018 Diabetic eye exam 04/28/2017 06/30/2019 Overview: Last done: 12/09/2017 Diabetic eye exam 04/16/2017 06/30/2019 Overview: Last done: 04/15/2017 Neuropathic pain 03/03/2017 06/30/2019 Current use of proton pump inhibitor 03/03/2017 06/30/2019 Adnexal mass, right 12/16/2016 06/30/2019 Overview: 3.[address] in 11/2016 Diabetic eye exam 11/12/2016 06/30/2019 Overview: Last done: 12/01/2016 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 2 diabetes mellitus 11/06/2016 04/12/2020 HINTON (nonalcoholic steatohepatitis) 11/06/2016 04/17/2017 RUQ abdominal mass 11/05/2016 06/30/2019 Lesion of liver 10/29/2016 11/05/2018 RUQ abdominal pain 10/29/2016 12/16/2016 Left temporal headache 10/29/2016 0 Blurred vision, left eye 10/29/2016 020 Bulge of lumbar disc without myelopathy 05/16/19 17 12/02/2021 Overview: L4-5 and L5-S1 History of temporal arteritis 02/05/2016 History of temporal arteritis 02/05/2016 History of temporal arteritis 02/05/2016 Chest pain 01/05/2016 01/09/2016 Acute nonintractable headache 01/05/2016 Diabetic eye exam 11/06/2015 06/30/2019 Overview: Last done: 10/10/2015 Obesity 09/27/2015 06/30/2019 Iron deficiency anemia 09/17/2015 7 Overview: Seeing Dr. 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 Type 2 diabetes mellitus with proteinuria 201506/30/2019 MRSA infection 01/31/2015 03/07/2015 Overview: Started originally with a toe nail. Mild persistent asthma without complication 01/1607/10/2020 Overview: Sees Dr. Ramesh: Mild persistent asthma. 04/23/2012 normal spirometry. 04/2012 Methacholine Inhalation Challenge positive at level 5. 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 Uses O2 as needed day and night. Left hip pain 12/26/2011 03/07/2015 DDD (degenerative disc disease), lumbar 12/26/19 12 06/30/2019 Overview: Sees Dr. 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 04/23/2012 normal spirometry. 04/2012 Methacholine Inhalation Challenge positive at level 5. Allergic rhinitis 04/17/2006 06/30/2019 Abdominal pain, right lower quadrant 02/05/2006 06/30/2019 Diarrhea 04/09/2005 06/30/2019 Internal hemorrhoids without mention of complica tion 04/09/2005 06/30/2019 Internal hemorrhoids 04/09/2005 11/05/2018 Irritable bowel syndrome 02/12/2005 020 Abdominal pain, generalized 06/16 Nonspecific elevation of lev els of transaminase or lactic acid dehydrogenase (LDH) 03/07/2015 On home oxygen therapy 0 Overview: 2 liters at [facility], Sees dr. Xiao documented as of this encounter (statuses as of 04/04/2022) [facility]07-06-2022 History of Past illness Narrative* Problem Noted Date Resolved Date COVID-19 virus infection 08/21/2021 022 Overview: 08/20/2021 Chronic nausea 04/30/2021 12/03/2021 Palpitations 10/27/2020 02/07/2021 Overview: Seeing [facility] Pneumonia due to COVID-19 virus 07/09/2020 07/10/2020 Diabetic ulcer of right midf oot associated with type 2 diabetes mellitus, with fat layer exposed 07/09/2020 02/07/2021 History of 2019 novel coronavirus disease (COVID -19) 02/21/2020 12/02/2021 Overview: 02/08/2020, 08/20/2021 Family history of malignant melanoma 11/05/2018 11/06/2018 Family history of malignant melanoma 11/05/2018 07/10/2020 Psychophysiological insomnia 09/14/2018 Pain associated with surgical procedure 09/13/19 19 06/30/2019 Overview: Left below knee amputation, 08/06/2018 Chronic obstructive lung disease 08/24/2018 06/30/2019 Insulin resistance 08/03/2018 06/30/2019 History of TB (tuberculosis) 02/02/2018 Overview: Treated 06/2014 History of TB (tuberculosis) 02/02/2018 Osteomyelitis of foot, left, acute 12/09/2017 06/30/2019 Shaking 08/31/2017 06/30/2019 Tongue biting 08/31/2017 11/05/2018 Sjogren's syndrome 08/31/2017 06/30/2019 Overview: Seeing Dr. Littlejohn Diabetic eye exam 04/28/2017 06/30/2019 Overview: Last done: 09/17/2018 Diabetic eye exam 04/28/2017 06/30/2019 Overview: Last done: 12/09/2017 Diabetic eye exam 04/16/2017 06/30/2019 Overview: Last done: 04/15/2017 Neuropathic pain 03/03/2017 06/30/2019 Current use of proton pump inhibitor 03/03/2017 06/30/2019 Adnexal mass, right 12/16/2016 06/30/2019 Overview: 3.[address] in 11/2016 Diabetic eye exam 11/12/2016 06/30/2019 Overview: Last done: 12/01/2016 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 2 diabetes mellitus 11/06/2016 04/12/2020 HINTON (nonalcoholic steatohepatitis) 11/06/2016 04/17/2017 RUQ abdominal mass 11/05/2016 06/30/2019 Lesion of liver 10/29/2016 11/05/2018 RUQ abdominal pain 10/29/2016 12/16/2016 Left temporal headache 10/29/2016 0 Blurred vision, left eye 10/29/2016 020 Bulge of lumbar disc without myelopathy 05/16/19 17 12/02/2021 Overview: L4-5 and L5-S1 History of temporal arteritis 02/05/2016 History of temporal arteritis 02/05/2016 History of temporal arteritis 02/05/2016 Chest pain 01/05/2016 01/09/2016 Acute nonintractable headache 01/05/2016 Diabetic eye exam 11/06/2015 06/30/2019 Overview: Last done: 10/10/2015 Obesity 09/27/2015 06/30/2019 Iron deficiency anemia 09/17/2015 7 Overview: Seeing Dr. 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 Type 2 diabetes mellitus with proteinuria 201506/30/2019 MRSA infection 01/31/2015 03/07/2015 Overview: Started originally with a toe nail. Mild persistent asthma without complication 01/1607/10/2020 Overview: Sees Dr. Ramesh: Mild persistent asthma. 04/23/2012 normal spirometry. 04/2012 Methacholine Inhalation Challenge positive at level 5. 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 Uses O2 as needed day and night. Left hip pain 12/26/2011 03/07/2015 DDD (degenerative disc disease), lumbar 12/26/19 12 06/30/2019 Overview: Sees Dr. 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 04/23/2012 normal spirometry. 04/2012 Methacholine Inhalation Challenge positive at level 5. Allergic rhinitis 04/17/2006 06/30/2019 Abdominal pain, right lower quadrant 02/05/2006 06/30/2019 Diarrhea 04/09/2005 06/30/2019 Internal hemorrhoids without mention of complica tion 04/09/2005 06/30/2019 Internal hemorrhoids 04/09/2005 11/05/2018 Irritable bowel syndrome 02/12/2005 020 Abdominal pain, generalized 06/16 Nonspecific elevation of lev els of transaminase or lactic acid dehydrogenase (LDH) 03/07/2015 On home oxygen therapy 0 Overview: 2 liters at , Sees dr. Xiao documented as of this encounter (statuses as of 04/04/2022) [facility]07-[facility]22 History of Past illness Narrative* Problem Noted Date Resolved Date COVID-19 virus infection 08/21/2021 022 Overview: 08/20/2021 Chronic nausea 04/30/2021 12/03/2021 Palpitations 10/27/2020 02/07/2021 Overview: Seeing [facility] Pneumonia due to COVID-19 virus 07/09/2020 07/10/2020 Diabetic ulcer of right midf oot associated with type 2 diabetes mellitus, with fat layer exposed 07/09/2020 02/07/2021 History of 2019 novel coronavirus disease (COVID -19) 02/21/2020 12/02/2021 Overview: 02/08/2020, 08/20/2021 Family history of malignant melanoma 11/05/2018 11/06/2018 Family history of malignant melanoma 11/05/2018 07/10/2020 Psychophysiological insomnia 09/14/2018 Pain associated with surgical procedure 09/13/1906/30/2019 Overview: Left below knee amputation, 08/06/2018 Chronic obstructive lung disease 08/24/2018 06/30/2019 Insulin resistance 08/03/2018 06/30/2019 History of TB (tuberculosis) 02/02/2018 Overview: Treated 06/2014 History of TB (tuberculosis) 02/02/2018 Osteomyelitis of foot, left, acute 12/09/2017 06/30/2019 Shaking 08/31/2017 06/30/2019 Tongue biting 08/31/2017 11/05/2018 Sjogren's syndrome 08/31/2017 06/30/2019 Overview: Seeing Dr. Littlejohn Diabetic eye exam 04/28/2017 06/30/2019 Overview: Last done: 09/17/2018 Diabetic eye exam 04/28/2017 06/30/2019 Overview: Last done: 12/09/2017 Diabetic eye exam 04/16/2017 06/30/2019 Overview: Last done: 04/15/2017 Neuropathic pain 03/03/2017 06/30/2019 Current use of proton pump inhibitor 03/03/2017 06/30/2019 Adnexal mass, right 12/16/2016 06/30/2019 Overview: 3.[address] in 11/2016 Diabetic eye exam 11/12/2016 06/30/2019 Overview: Last done: 12/01/2016 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 2 diabetes mellitus 11/06/2016 04/12/2020 HINTON (nonalcoholic steatohepatitis) 11/06/2016 04/17/2017 RUQ abdominal mass 11/05/2016 06/30/2019 Lesion of liver 10/29/2016 11/05/2018 RUQ abdominal pain 10/29/2016 12/16/2016 Left temporal headache 10/29/2016 0 Blurred vision, left eye 10/29/2016 020 Bulge of lumbar disc without myelopathy 05/16/19 17 12/02/2021 Overview: L4-5 and L5-S1 History of temporal arteritis 02/05/2016 History of temporal arteritis 02/05/2016 History of temporal arteritis 02/05/2016 Chest pain 01/05/2016 01/09/2016 Acute nonintractable headache 01/05/2016 Diabetic eye exam 11/06/2015 06/30/2019 Overview: Last done: 10/10/2015 Obesity 09/27/2015 06/30/2019 Iron deficiency anemia 09/17/2015 7 Overview: Seeing Dr. 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 Type 2 diabetes mellitus with proteinuria 201506/30/2019 MRSA infection 01/31/2015 03/07/2015 Overview: Started originally with a toe nail. Mild persistent asthma without complication 01/1607/10/2020 Overview: Sees Dr. Ramesh: Mild persistent asthma. 04/23/2012 normal spirometry. 04/2012 Methacholine Inhalation Challenge positive at level 5. 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 Uses O2 as needed day and night. Left hip pain 12/26/2011 03/07/2015 DDD (degenerative disc disease), lumbar 12/26/19 12 06/30/2019 Overview: Sees Dr. 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 04/23/2012 normal spirometry. 04/2012 Methacholine Inhalation Challenge positive at level 5. Allergic rhinitis 04/17/2006 06/30/2019 Abdominal pain, right lower quadrant 02/05/2006 06/30/2019 Diarrhea 04/09/2005 06/30/2019 Internal hemorrhoids without mention of complica tion 04/09/2005 06/30/2019 Internal hemorrhoids 04/09/2005 11/05/2018 Irritable bowel syndrome 02/12/2005 020 Abdominal pain, generalized 06/16 Nonspecific elevation of lev els of transaminase or lactic acid dehydrogenase (LDH) 03/07/2015 On home oxygen therapy 0 Overview: 2 liters at , Sees dr. Xiao documented as of this encounter (statuses as of 04/14/2022) [facility] History of Past illness Narrative* Problem Noted Date Resolved Date COVID-19 virus infection 08/21/2021 022 Overview: 08/20/2021 Chronic nausea 04/30/2021 12/03/2021 Palpitations 10/27/2020 02/07/2021 Overview: Seeing [facility] Pneumonia due to COVID-19 virus 07/09/2020 07/10/2020 Diabetic ulcer of right midf oot associated with type 2 diabetes mellitus, with fat layer exposed 07/09/2020 02/07/2021 History of 2019 novel coronavirus disease (COVID -19) 02/21/2020 12/02/2021 Overview: 02/08/2020, 08/20/2021 Family history of malignant melanoma 11/05/2018 11/06/2018 Family history of malignant melanoma 11/05/2018 07/10/2020 Psychophysiological insomnia 09/14/2018 Pain associated with surgical procedure 09/13/1906/30/2019 Overview: Left below knee amputation, 08/06/2018 Chronic obstructive lung disease 08/24/2018 06/30/2019 Insulin resistance 08/03/2018 06/30/2019 History of TB (tuberculosis) 02/02/2018 Overview: Treated 06/2014 History of TB (tuberculosis) 02/02/2018 Osteomyelitis of foot, left, acute 12/09/2017 06/30/2019 Shaking 08/31/2017 06/30/2019 Tongue biting 08/31/2017 11/05/2018 Sjogren's syndrome 08/31/2017 06/30/2019 Overview: Seeing Dr. Littlejohn Diabetic eye exam 04/28/2017 06/30/2019 Overview: Last done: 09/17/2018 Diabetic eye exam 04/28/2017 06/30/2019 Overview: Last done: 12/09/2017 Diabetic eye exam 04/16/2017 06/30/2019 Overview: Last done: 04/15/2017 Neuropathic pain 03/03/2017 06/30/2019 Current use of proton pump inhibitor 03/03/2017 06/30/2019 Adnexal mass, right 12/16/2016 06/30/2019 Overview: 3.[address] in 11/2016 Diabetic eye exam 11/12/2016 06/30/2019 Overview: Last done: 12/01/2016 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 2 diabetes mellitus 11/06/2016 04/12/2020 HINTON (nonalcoholic steatohepatitis) 11/06/2016 04/17/2017 RUQ abdominal mass 11/05/2016 06/30/2019 Lesion of liver 10/29/2016 11/05/2018 RUQ abdominal pain 10/29/2016 12/16/2016 Left temporal headache 10/29/2016 0 Blurred vision, left eye 10/29/2016 020 Bulge of lumbar disc without myelopathy 05/16/19 17 12/02/2021 Overview: L4-5 and L5-S1 History of temporal arteritis 02/05/2016 History of temporal arteritis 02/05/2016 History of temporal arteritis 02/05/2016 Chest pain 01/05/2016 01/09/2016 Acute nonintractable headache 01/05/2016 Diabetic eye exam 11/06/2015 06/30/2019 Overview: Last done: 10/10/2015 Obesity 09/27/2015 06/30/2019 Iron deficiency anemia 09/17/2015 7 Overview: Seeing Dr. 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 Type 2 diabetes mellitus with proteinuria 201506/30/2019 MRSA infection 01/31/2015 03/07/2015 Overview: Started originally with a toe nail. Mild persistent asthma without complication 01/1607/10/2020 Overview: Sees Dr. Ramesh: Mild persistent asthma. 04/23/2012 normal spirometry. 04/2012 Methacholine Inhalation Challenge positive at level 5. 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 Uses O2 as needed day and night. Left hip pain 12/26/2011 03/07/2015 DDD (degenerative disc disease), lumbar 12/26/19 12 06/30/2019 Overview: Sees Dr. 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 04/23/2012 normal spirometry. 04/2012 Methacholine Inhalation Challenge positive at level 5. Allergic rhinitis 04/17/2006 06/30/2019 Abdominal pain, right lower quadrant 02/05/2006 06/30/2019 Diarrhea 04/09/2005 06/30/2019 Internal hemorrhoids without mention of complica tion 04/09/2005 06/30/2019 Internal hemorrhoids 04/09/2005 11/05/2018 Irritable bowel syndrome 02/12/2005 020 Abdominal pain, generalized 06/16 Nonspecific elevation of lev els of transaminase or lactic acid dehydrogenase (LDH) 03/07/2015 On home oxygen therapy 0 Overview: 2 liters at , Sees dr. Xiao documented as of this encounter (statuses as of 04/18/2022) [facility]07-06-2022 History of Past illness Narrative* Problem Noted Date Resolved Date COVID-19 virus infection 08/21/2021 022 Overview: 08/20/2021 Chronic nausea 04/30/2021 12/03/2021 Palpitations 10/27/2020 02/07/2021 Overview: Seeing [facility] Pneumonia due to COVID-19 virus 07/09/2020 07/10/2020 Diabetic ulcer of right midf oot associated with type 2 diabetes mellitus, with fat layer exposed 07/09/2020 02/07/2021 History of 2019 novel coronavirus disease (COVID -19) 02/21/2020 12/02/2021 Overview: 02/08/2020, 08/20/2021 Family history of malignant melanoma 11/05/2018 11/06/2018 Family history of malignant melanoma 11/05/2018 07/10/2020 Psychophysiological insomnia 09/14/2018 Pain associated with surgical procedure 09/13/1906/30/2019 Overview: Left below knee amputation, 08/06/2018 Chronic obstructive lung disease 08/24/2018 06/30/2019 Insulin resistance 08/03/2018 06/30/2019 History of TB (tuberculosis) 02/02/2018 Overview: Treated 06/2014 History of TB (tuberculosis) 02/02/2018 Osteomyelitis of foot, left, acute 12/09/2017 06/30/2019 Shaking 08/31/2017 06/30/2019 Tongue biting 08/31/2017 11/05/2018 Sjogren's syndrome 08/31/2017 06/30/2019 Overview: Seeing Dr. Littlejohn Diabetic eye exam 04/28/2017 06/30/2019 Overview: Last done: 09/17/2018 Diabetic eye exam 04/28/2017 06/30/2019 Overview: Last done: 12/09/2017 Diabetic eye exam 04/16/2017 06/30/2019 Overview: Last done: 04/15/2017 Neuropathic pain 03/03/2017 06/30/2019 Current use of proton pump inhibitor 03/03/2017 06/30/2019 Adnexal mass, right 12/16/2016 06/30/2019 Overview: 3.[address] in 11/2016 Diabetic eye exam 11/12/2016 06/30/2019 Overview: Last done: 12/01/2016 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 2 diabetes mellitus 11/06/2016 04/12/2020 HINTON (nonalcoholic steatohepatitis) 11/06/2016 04/17/2017 RUQ abdominal mass 11/05/2016 06/30/2019 Lesion of liver 10/29/2016 11/05/2018 RUQ abdominal pain 10/29/2016 12/16/2016 Left temporal headache 10/29/2016 0 Blurred vision, left eye 10/29/2016 020 Bulge of lumbar disc without myelopathy 05/16/19 17 12/02/2021 Overview: L4-5 and L5-S1 History of temporal arteritis 02/05/2016 History of temporal arteritis 02/05/2016 History of temporal arteritis 02/05/2016 Chest pain 01/05/2016 01/09/2016 Acute nonintractable headache 01/05/2016 Diabetic eye exam 11/06/2015 06/30/2019 Overview: Last done: 10/10/2015 Obesity 09/27/2015 06/30/2019 Iron deficiency anemia 09/17/2015 7 Overview: Seeing Dr. 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 Type 2 diabetes mellitus with proteinuria 201506/30/2019 MRSA infection 01/31/2015 03/07/2015 Overview: Started originally with a toe nail. Mild persistent asthma without complication 01/1607/10/2020 Overview: Sees Dr. Ramesh: Mild persistent asthma. 04/23/2012 normal spirometry. 04/2012 Methacholine Inhalation Challenge positive at level 5. 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 Uses O2 as needed day and night. Left hip pain 12/26/2011 03/07/2015 DDD (degenerative disc disease), lumbar 12/26/19 12 06/30/2019 Overview: Sees Dr. 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 04/23/2012 normal spirometry. 04/2012 Methacholine Inhalation Challenge positive at level 5. Allergic rhinitis 04/17/2006 06/30/2019 Abdominal pain, right lower quadrant 02/05/2006 06/30/2019 Diarrhea 04/09/2005 06/30/2019 Internal hemorrhoids without mention of complica tion 04/09/2005 06/30/2019 Internal hemorrhoids 04/09/2005 11/05/2018 Irritable bowel syndrome 02/12/2005 020 Abdominal pain, generalized 06/16 Nonspecific elevation of lev els of transaminase or lactic acid dehydrogenase (LDH) 03/07/2015 On home oxygen therapy 0 Overview: 2 liters at , Sees dr. Xiao documented as of this encounter (statuses as of 04/24/2022) [facility]07-06-2022 History of Past illness Narrative* Problem Noted Date Resolved Date COVID-19 virus infection 08/21/2021 022 Overview: 08/20/2021 Chronic nausea 04/30/2021 12/03/2021 Palpitations 10/27/2020 02/07/2021 Overview: Seeing [facility] Pneumonia due to COVID-19 virus 07/09/2020 07/10/2020 Diabetic ulcer of right midf oot associated with type 2 diabetes mellitus, with fat layer exposed 07/09/2020 02/07/2021 History of 2019 novel coronavirus disease (COVID -19) 02/21/2020 12/02/2021 Overview: 02/08/2020, 08/20/2021 Family history of malignant melanoma 11/05/2018 11/06/2018 Family history of malignant melanoma 11/05/2018 07/10/2020 Psychophysiological insomnia 09/14/2018 Pain associated with surgical procedure 09/13/1906/30/2019 Overview: Left below knee amputation, 08/06/2018 Chronic obstructive lung disease 08/24/2018 06/30/2019 Insulin resistance 08/03/2018 06/30/2019 History of TB (tuberculosis) 02/02/2018 Overview: Treated 06/2014 History of TB (tuberculosis) 02/02/2018 Osteomyelitis of foot, left, acute 12/09/2017 06/30/2019 Shaking 08/31/2017 06/30/2019 Tongue biting 08/31/2017 11/05/2018 Sjogren's syndrome 08/31/2017 06/30/2019 Overview: Seeing Dr. Littlejohn Diabetic eye exam 04/28/2017 06/30/2019 Overview: Last done: 09/17/2018 Diabetic eye exam 04/28/2017 06/30/2019 Overview: Last done: 12/09/2017 Diabetic eye exam 04/16/2017 06/30/2019 Overview: Last done: 04/15/2017 Neuropathic pain 03/03/2017 06/30/2019 Current use of proton pump inhibitor 03/03/2017 06/30/2019 Adnexal mass, right 12/16/2016 06/30/2019 Overview: 3.[address] in 11/2016 Diabetic eye exam 11/12/2016 06/30/2019 Overview: Last done: 12/01/2016 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 2 diabetes mellitus 11/06/2016 04/12/2020 HINTON (nonalcoholic steatohepatitis) 11/06/2016 04/17/2017 RUQ abdominal mass 11/05/2016 06/30/2019 Lesion of liver 10/29/2016 11/05/2018 RUQ abdominal pain 10/29/2016 12/16/2016 Left temporal headache 10/29/2016 0 Blurred vision, left eye 10/29/2016 020 Bulge of lumbar disc without myelopathy 05/16/19 17 12/02/2021 Overview: L4-5 and L5-S1 History of temporal arteritis 02/05/2016 History of temporal arteritis 02/05/2016 History of temporal arteritis 02/05/2016 Chest pain 01/05/2016 01/09/2016 Acute nonintractable headache 01/05/2016 Diabetic eye exam 11/06/2015 06/30/2019 Overview: Last done: 10/10/2015 Obesity 09/27/2015 06/30/2019 Iron deficiency anemia 09/17/2015 7 Overview: Seeing Dr. 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 Type 2 diabetes mellitus with proteinuria 201506/30/2019 MRSA infection 01/31/2015 03/07/2015 Overview: Started originally with a toe nail. Mild persistent asthma without complication 01/1607/10/2020 Overview: Sees Dr. Ramesh: Mild persistent asthma. 04/23/2012 normal spirometry. 04/2012 Methacholine Inhalation Challenge positive at level 5. 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 Uses O2 as needed day and night. Left hip pain 12/26/2011 03/07/2015 DDD (degenerative disc disease), lumbar 12/26/19 12 06/30/2019 Overview: Sees Dr. 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 04/23/2012 normal spirometry. 04/2012 Methacholine Inhalation Challenge positive at level 5. Allergic rhinitis 04/17/2006 06/30/2019 Abdominal pain, right lower quadrant 02/05/2006 06/30/2019 Diarrhea 04/09/2005 06/30/2019 Internal hemorrhoids without mention of complica tion 04/09/2005 06/30/2019 Internal hemorrhoids 04/09/2005 11/05/2018 Irritable bowel syndrome 02/12/2005 020 Abdominal pain, generalized 06/16 Nonspecific elevation of lev els of transaminase or lactic acid dehydrogenase (LDH) 03/07/2015 On home oxygen therapy 0 Overview: 2 liters at , Sees dr. Xiao documented as of this encounter (statuses as of 04/29/2022) [facility]07-[facility]22 History of Past illness Narrative* Problem Noted Date Resolved Date COVID-19 virus infection 08/21/2021 022 Overview: 08/20/2021 Chronic nausea 04/30/2021 12/03/2021 Palpitations 10/27/2020 02/07/2021 Overview: Seeing [facility] Pneumonia due to COVID-19 virus 07/09/2020 07/10/2020 Diabetic ulcer of right midf oot associated with type 2 diabetes mellitus, with fat layer exposed 07/09/2020 02/07/2021 History of 2019 novel coronavirus disease (COVID -19) 02/21/2020 12/02/2021 Overview: 02/08/2020, 08/20/2021 Family history of malignant melanoma 11/05/2018 11/06/2018 Family history of malignant melanoma 11/05/2018 07/10/2020 Psychophysiological insomnia 09/14/2018 Pain associated with surgical procedure 09/13/19 19 06/30/2019 Overview: Left below knee amputation, 08/06/2018 Chronic obstructive lung disease 08/24/2018 06/30/2019 Insulin resistance 08/03/2018 06/30/2019 History of TB (tuberculosis) 02/02/2018 Overview: Treated 06/2014 History of TB (tuberculosis) 02/02/2018 Osteomyelitis of foot, left, acute 12/09/2017 06/30/2019 Shaking 08/31/2017 06/30/2019 Tongue biting 08/31/2017 11/05/2018 Sjogren's syndrome 08/31/2017 06/30/2019 Overview: Seeing Dr. Littlejohn Diabetic eye exam 04/28/2017 06/30/2019 Overview: Last done: 09/17/2018 Diabetic eye exam 04/28/2017 06/30/2019 Overview: Last done: 12/09/2017 Diabetic eye exam 04/16/2017 06/30/2019 Overview: Last done: 04/15/2017 Neuropathic pain 03/03/2017 06/30/2019 Current use of proton pump inhibitor 03/03/2017 06/30/2019 Adnexal mass, right 12/16/2016 06/30/2019 Overview: 3.[address] in 11/2016 Diabetic eye exam 11/12/2016 06/30/2019 Overview: Last done: 12/01/2016 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 2 diabetes mellitus 11/06/2016 04/12/2020 HINTON (nonalcoholic steatohepatitis) 11/06/2016 04/17/2017 RUQ abdominal mass 11/05/2016 06/30/2019 Lesion of liver 10/29/2016 11/05/2018 RUQ abdominal pain 10/29/2016 12/16/2016 Left temporal headache 10/29/2016 0 Blurred vision, left eye 10/29/2016 020 Bulge of lumbar disc without myelopathy 05/16/19 17 12/02/2021 Overview: L4-5 and L5-S1 History of temporal arteritis 02/05/2016 History of temporal arteritis 02/05/2016 History of temporal arteritis 02/05/2016 Chest pain 01/05/2016 01/09/2016 Acute nonintractable headache 01/05/2016 Diabetic eye exam 11/06/2015 06/30/2019 Overview: Last done: 10/10/2015 Obesity 09/27/2015 06/30/2019 Iron deficiency anemia 09/17/2015 7 Overview: Seeing Dr. 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 Type 2 diabetes mellitus with proteinuria 201506/30/2019 MRSA infection 01/31/2015 03/07/2015 Overview: Started originally with a toe nail. Mild persistent asthma without complication 01/1607/10/2020 Overview: Sees Dr. Ramesh: Mild persistent asthma. 04/23/2012 normal spirometry. 04/2012 Methacholine Inhalation Challenge positive at level 5. 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 Uses O2 as needed day and night. Left hip pain 12/26/2011 03/07/2015 DDD (degenerative disc disease), lumbar 12/26/19 12 06/30/2019 Overview: Sees Dr. 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 04/23/2012 normal spirometry. 04/2012 Methacholine Inhalation Challenge positive at level 5. Allergic rhinitis 04/17/2006 06/30/2019 Abdominal pain, right lower quadrant 02/05/2006 06/30/2019 Diarrhea 04/09/2005 06/30/2019 Internal hemorrhoids without mention of complica tion 04/09/2005 06/30/2019 Internal hemorrhoids 04/09/2005 11/05/2018 Irritable bowel syndrome 02/12/2005 020 Abdominal pain, generalized 06/16 Nonspecific elevation of lev els of transaminase or lactic acid dehydrogenase (LDH) 03/07/2015 On home oxygen therapy 0 Overview: 2 liters at , Sees dr. Xiao documented as of this encounter (statuses as of 05/04/2022) [facility] History of Past illness Narrative* Problem Noted Date Resolved Date COVID-19 virus infection 08/21/2021 022 Overview: 08/20/2021 Chronic nausea 04/30/2021 12/03/2021 Palpitations 10/27/2020 02/07/2021 Overview: Seeing [facility] Pneumonia due to COVID-19 virus 07/09/2020 07/10/2020 Diabetic ulcer of right midf oot associated with type 2 diabetes mellitus, with fat layer exposed 07/09/2020 02/07/2021 History of 2019 novel coronavirus disease (COVID -19) 02/21/2020 12/02/2021 Overview: 02/08/2020, 08/20/2021 Family history of malignant melanoma 11/05/2018 11/06/2018 Family history of malignant melanoma 11/05/2018 07/10/2020 Psychophysiological insomnia 09/14/2018 Pain associated with surgical procedure 09/13/1906/30/2019 Overview: Left below knee amputation, 08/06/2018 Chronic obstructive lung disease 08/24/2018 06/30/2019 Insulin resistance 08/03/2018 06/30/2019 History of TB (tuberculosis) 02/02/2018 Overview: Treated 06/2014 History of TB (tuberculosis) 02/02/2018 Osteomyelitis of foot, left, acute 12/09/2017 06/30/2019 Shaking 08/31/2017 06/30/2019 Tongue biting 08/31/2017 11/05/2018 Sjogren's syndrome 08/31/2017 06/30/2019 Overview: Seeing Dr. Littlejohn Diabetic eye exam 04/28/2017 06/30/2019 Overview: Last done: 09/17/2018 Diabetic eye exam 04/28/2017 06/30/2019 Overview: Last done: 12/09/2017 Diabetic eye exam 04/16/2017 06/30/2019 Overview: Last done: 04/15/2017 Neuropathic pain 03/03/2017 06/30/2019 Current use of proton pump inhibitor 03/03/2017 06/30/2019 Adnexal mass, right 12/16/2016 06/30/2019 Overview: 3.[address] in 11/2016 Diabetic eye exam 11/12/2016 06/30/2019 Overview: Last done: 12/01/2016 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 2 diabetes mellitus 11/06/2016 04/12/2020 HINTON (nonalcoholic steatohepatitis) 11/06/2016 04/17/2017 RUQ abdominal mass 11/05/2016 06/30/2019 Lesion of liver 10/29/2016 11/05/2018 RUQ abdominal pain 10/29/2016 12/16/2016 Left temporal headache 10/29/2016 0 Blurred vision, left eye 10/29/2016 020 Bulge of lumbar disc without myelopathy 05/16/19 17 12/02/2021 Overview: L4-5 and L5-S1 History of temporal arteritis 02/05/2016 History of temporal arteritis 02/05/2016 History of temporal arteritis 02/05/2016 Chest pain 01/05/2016 01/09/2016 Acute nonintractable headache 01/05/2016 Diabetic eye exam 11/06/2015 06/30/2019 Overview: Last done: 10/10/2015 Obesity 09/27/2015 06/30/2019 Iron deficiency anemia 09/17/2015 Overview: Seeing Dr. 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 Type 2 diabetes mellitus with proteinuria 201506/30/2019 MRSA infection 01/31/2015 03/07/2015 Overview: Started originally with a toe nail. Mild persistent asthma without complication 01/1607/10/2020 Overview: Sees Dr. Ramesh: Mild persistent asthma. 04/23/2012 normal spirometry. 04/2012 Methacholine Inhalation Challenge positive at level 5. 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 Uses O2 as needed day and night. Left hip pain 12/26/2011 03/07/2015 DDD (degenerative disc disease), lumbar 12/26/19 12 06/30/2019 Overview: Sees Dr. 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 04/23/2012 normal spirometry. 04/2012 Methacholine Inhalation Challenge positive at level 5. Allergic rhinitis 04/17/2006 06/30/2019 Abdominal pain, right lower quadrant 02/05/2006 06/30/2019 Diarrhea 04/09/2005 06/30/2019 Internal hemorrhoids without mention of complica tion 04/09/2005 06/30/2019 Internal hemorrhoids 04/09/2005 11/05/2018 Irritable bowel syndrome 02/12/2005 020 Abdominal pain, generalized 06/16 Nonspecific elevation of lev els of transaminase or lactic acid dehydrogenase (LDH) 03/07/2015 On home oxygen therapy 0 Overview: 2 liters at , Sees dr. Xiao documented as of this encounter (statuses as of 05/08/2022) [facility] History of Past illness Narrative* Problem Noted Date Resolved Date COVID-19 virus infection 08/21/2021 022 Overview: 08/20/2021 Chronic nausea 04/30/2021 12/03/2021 Palpitations 10/27/2020 02/07/2021 Overview: Seeing [facility] Pneumonia due to COVID-19 virus 07/09/2020 07/10/2020 Diabetic ulcer of right midf oot associated with type 2 diabetes mellitus, with fat layer exposed 07/09/2020 02/07/2021 History of 2019 novel coronavirus disease (COVID -19) 02/21/2020 12/02/2021 Overview: 02/08/2020, 08/20/2021 Family history of malignant melanoma 11/05/2018 11/06/2018 Family history of malignant melanoma 11/05/2018 07/10/2020 Psychophysiological insomnia 09/14/2018 Pain associated with surgical procedure 09/13/19 19 06/30/2019 Overview: Left below knee amputation, 08/06/2018 Chronic obstructive lung disease 08/24/2018 06/30/2019 Insulin resistance 08/03/2018 06/30/2019 History of TB (tuberculosis) 02/02/2018 Overview: Treated 06/2014 History of TB (tuberculosis) 02/02/2018 Osteomyelitis of foot, left, acute 12/09/2017 06/30/2019 Shaking 08/31/2017 06/30/2019 Tongue biting 08/31/2017 11/05/2018 Sjogren's syndrome 08/31/2017 06/30/2019 Overview: Seeing Dr. Littlejohn Diabetic eye exam 04/28/2017 06/30/2019 Overview: Last done: 09/17/2018 Diabetic eye exam 04/28/2017 06/30/2019 Overview: Last done: 12/09/2017 Diabetic eye exam 04/16/2017 06/30/2019 Overview: Last done: 04/15/2017 Neuropathic pain 03/03/2017 06/30/2019 Current use of proton pump inhibitor 03/03/2017 06/30/2019 Adnexal mass, right 12/16/2016 06/30/2019 Overview: 3.[address] in 11/2016 Diabetic eye exam 11/12/2016 06/30/2019 Overview: Last done: 12/01/2016 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 2 diabetes mellitus 11/06/2016 04/12/2020 HINTON (nonalcoholic steatohepatitis) 11/06/2016 04/17/2017 RUQ abdominal mass 11/05/2016 06/30/2019 Lesion of liver 10/29/2016 11/05/2018 RUQ abdominal pain 10/29/2016 12/16/2016 Left temporal headache 10/29/2016 0 Blurred vision, left eye 10/29/2016 020 Bulge of lumbar disc without myelopathy 05/16/19 17 12/02/2021 Overview: L4-5 and L5-S1 History of temporal arteritis 02/05/2016 History of temporal arteritis 02/05/2016 History of temporal arteritis 02/05/2016 Chest pain 01/05/2016 01/09/2016 Acute nonintractable headache 01/05/2016 Diabetic eye exam 11/06/2015 06/30/2019 Overview: Last done: 10/10/2015 Obesity 09/27/2015 06/30/2019 Iron deficiency anemia 09/17/2015 7 Overview: Seeing Dr. 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 Type 2 diabetes mellitus with proteinuria 201506/30/2019 MRSA infection 01/31/2015 03/07/2015 Overview: Started originally with a toe nail. Mild persistent asthma without complication 01/1607/10/2020 Overview: Sees Dr. Ramesh: Mild persistent asthma. 04/23/2012 normal spirometry. 04/2012 Methacholine Inhalation Challenge positive at level 5. 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 Uses O2 as needed day and night. Left hip pain 12/26/2011 03/07/2015 DDD (degenerative disc disease), lumbar 12/26/19 12 06/30/2019 Overview: Sees Dr. 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 04/23/2012 normal spirometry. 04/2012 Methacholine Inhalation Challenge positive at level 5. Allergic rhinitis 04/17/2006 06/30/2019 Abdominal pain, right lower quadrant 02/05/2006 06/30/2019 Diarrhea 04/09/2005 06/30/2019 Internal hemorrhoids without mention of complica tion 04/09/2005 06/30/2019 Internal hemorrhoids 04/09/2005 11/05/2018 Irritable bowel syndrome 02/12/2005 020 Abdominal pain, generalized 06/16 Nonspecific elevation of lev els of transaminase or lactic acid dehydrogenase (LDH) 03/07/2015 On home oxygen therapy 0 Overview: 2 liters at , Sees dr. Xiao documented as of this encounter (statuses as of 05/12/2022) [facility]07-06-2022 History of Past illness Narrative* Problem Noted Date Resolved Date COVID-19 virus infection 08/21/2021 022 Overview: 08/20/2021 Chronic nausea 04/30/2021 12/03/2021 Palpitations 10/27/2020 02/07/2021 Overview: Seeing [facility] Pneumonia due to COVID-19 virus 07/09/2020 07/10/2020 Diabetic ulcer of right midf oot associated with type 2 diabetes mellitus, with fat layer exposed 07/09/2020 02/07/2021 History of 2019 novel coronavirus disease (COVID -19) 02/21/2020 12/02/2021 Overview: 02/08/2020, 08/20/2021 Family history of malignant melanoma 11/05/2018 11/06/2018 Family history of malignant melanoma 11/05/2018 07/10/2020 Psychophysiological insomnia 09/14/2018 Pain associated with surgical procedure 09/13/1906/30/2019 Overview: Left below knee amputation, 08/06/2018 Chronic obstructive lung disease 08/24/2018 06/30/2019 Insulin resistance 08/03/2018 06/30/2019 History of TB (tuberculosis) 02/02/2018 Overview: Treated 06/2014 History of TB (tuberculosis) 02/02/2018 Osteomyelitis of foot, left, acute 12/09/2017 06/30/2019 Shaking 08/31/2017 06/30/2019 Tongue biting 08/31/2017 11/05/2018 Sjogren's syndrome 08/31/2017 06/30/2019 Overview: Seeing Dr. Littlejohn Diabetic eye exam 04/28/2017 06/30/2019 Overview: Last done: 09/17/2018 Diabetic eye exam 04/28/2017 06/30/2019 Overview: Last done: 12/09/2017 Diabetic eye exam 04/16/2017 06/30/2019 Overview: Last done: 04/15/2017 Neuropathic pain 03/03/2017 06/30/2019 Current use of proton pump inhibitor 03/03/2017 06/30/2019 Adnexal mass, right 12/16/2016 06/30/2019 Overview: 3.[address] in 11/2016 Diabetic eye exam 11/12/2016 06/30/2019 Overview: Last done: 12/01/2016 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 2 diabetes mellitus 11/06/2016 04/12/2020 HINTON (nonalcoholic steatohepatitis) 11/06/2016 04/17/2017 RUQ abdominal mass 11/05/2016 06/30/2019 Lesion of liver 10/29/2016 11/05/2018 RUQ abdominal pain 10/29/2016 12/16/2016 Left temporal headache 10/29/2016 0 Blurred vision, left eye 10/29/2016 020 Bulge of lumbar disc without myelopathy 05/16/19 17 12/02/2021 Overview: L4-5 and L5-S1 History of temporal arteritis 02/05/2016 History of temporal arteritis 02/05/2016 History of temporal arteritis 02/05/2016 Chest pain 01/05/2016 01/09/2016 Acute nonintractable headache 01/05/2016 Diabetic eye exam 11/06/2015 06/30/2019 Overview: Last done: 10/10/2015 Obesity 09/27/2015 06/30/2019 Iron deficiency anemia 09/17/2015 7 Overview: Seeing Dr. 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 Type 2 diabetes mellitus with proteinuria 201506/30/2019 MRSA infection 01/31/2015 03/07/2015 Overview: Started originally with a toe nail. Mild persistent asthma without complication 01/1607/10/2020 Overview: Sees Dr. Ramesh: Mild persistent asthma. 04/23/2012 normal spirometry. 04/2012 Methacholine Inhalation Challenge positive at level 5. 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 Uses O2 as needed day and night. Left hip pain 12/26/2011 03/07/2015 DDD (degenerative disc disease), lumbar 12/26/19 12 06/30/2019 Overview: Sees Dr. 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 04/23/2012 normal spirometry. 04/2012 Methacholine Inhalation Challenge positive at level 5. Allergic rhinitis 04/17/2006 06/30/2019 Abdominal pain, right lower quadrant 02/05/2006 06/30/2019 Diarrhea 04/09/2005 06/30/2019 Internal hemorrhoids without mention of complica tion 04/09/2005 06/30/2019 Internal hemorrhoids 04/09/2005 11/05/2018 Irritable bowel syndrome 02/12/2005 020 Abdominal pain, generalized 06/16 Nonspecific elevation of lev els of transaminase or lactic acid dehydrogenase (LDH) 03/07/2015 On home oxygen therapy 0 Overview: 2 liters at , Sees dr. Xiao documented as of this encounter (statuses as of 05/16/2022) [facility]07-06-2022 History of Past illness Narrative* Problem Noted Date Resolved Date COVID-19 virus infection 08/21/2021 022 Overview: 08/20/2021 Chronic nausea 04/30/2021 12/03/2021 Palpitations 10/27/2020 02/07/2021 Overview: Seeing [facility] Pneumonia due to COVID-19 virus 07/09/2020 07/10/2020 Diabetic ulcer of right midf oot associated with type 2 diabetes mellitus, with fat layer exposed 07/09/2020 02/07/2021 History of 2019 novel coronavirus disease (COVID -19) 02/21/2020 12/02/2021 Overview: 02/08/2020, 08/20/2021 Family history of malignant melanoma 11/05/2018 11/06/2018 Family history of malignant melanoma 11/05/2018 07/10/2020 Psychophysiological insomnia 09/14/2018 Pain associated with surgical procedure 09/13/19 19 06/30/2019 Overview: Left below knee amputation, 08/06/2018 Chronic obstructive lung disease 08/24/2018 06/30/2019 Insulin resistance 08/03/2018 06/30/2019 History of TB (tuberculosis) 02/02/2018 Overview: Treated 06/2014 History of TB (tuberculosis) 02/02/2018 Osteomyelitis of foot, left, acute 12/09/2017 06/30/2019 Shaking 08/31/2017 06/30/2019 Tongue biting 08/31/2017 11/05/2018 Sjogren's syndrome 08/31/2017 06/30/2019 Overview: Seeing Dr. Littlejohn Diabetic eye exam 04/28/2017 06/30/2019 Overview: Last done: 09/17/2018 Diabetic eye exam 04/28/2017 06/30/2019 Overview: Last done: 12/09/2017 Diabetic eye exam 04/16/2017 06/30/2019 Overview: Last done: 04/15/2017 Neuropathic pain 03/03/2017 06/30/2019 Current use of proton pump inhibitor 03/03/2017 06/30/2019 Adnexal mass, right 12/16/2016 06/30/2019 Overview: 3.[address] in 11/2016 Diabetic eye exam 11/12/2016 06/30/2019 Overview: Last done: 12/01/2016 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 2 diabetes mellitus 11/06/2016 04/12/2020 HINTON (nonalcoholic steatohepatitis) 11/06/2016 04/17/2017 RUQ abdominal mass 11/05/2016 06/30/2019 Lesion of liver 10/29/2016 11/05/2018 RUQ abdominal pain 10/29/2016 12/16/2016 Left temporal headache 10/29/2016 0 Blurred vision, left eye 10/29/2016 020 Bulge of lumbar disc without myelopathy 05/16/19 17 12/02/2021 Overview: L4-5 and L5-S1 History of temporal arteritis 02/05/2016 History of temporal arteritis 02/05/2016 History of temporal arteritis 02/05/2016 Chest pain 01/05/2016 01/09/2016 Acute nonintractable headache 01/05/2016 Diabetic eye exam 11/06/2015 06/30/2019 Overview: Last done: 10/10/2015 Obesity 09/27/2015 06/30/2019 Iron deficiency anemia 09/17/2015 7 Overview: Seeing Dr. 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 Type 2 diabetes mellitus with proteinuria 201506/30/2019 MRSA infection 01/31/2015 03/07/2015 Overview: Started originally with a toe nail. Mild persistent asthma without complication 01/1607/10/2020 Overview: Sees Dr. Ramesh: Mild persistent asthma. 04/23/2012 normal spirometry. 04/2012 Methacholine Inhalation Challenge positive at level 5. 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 Uses O2 as needed day and night. Left hip pain 12/26/2011 03/07/2015 DDD (degenerative disc disease), lumbar 12/26/19 12 06/30/2019 Overview: Sees Dr. 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 04/23/2012 normal spirometry. 04/2012 Methacholine Inhalation Challenge positive at level 5. Allergic rhinitis 04/17/2006 06/30/2019 Abdominal pain, right lower quadrant 02/05/2006 06/30/2019 Diarrhea 04/09/2005 06/30/2019 Internal hemorrhoids without mention of complica tion 04/09/2005 06/30/2019 Internal hemorrhoids 04/09/2005 11/05/2018 Irritable bowel syndrome 02/12/2005 020 Abdominal pain, generalized 06/16 Nonspecific elevation of lev els of transaminase or lactic acid dehydrogenase (LDH) 03/07/2015 On home oxygen therapy 0 Overview: 2 liters at , Sees dr. Xiao documented as of this encounter (statuses as of 05/28/2022) [facility]07-[facility]22 History of Past illness Narrative* Problem Noted Date Resolved Date COVID-19 virus infection 08/21/2021 022 Overview: 08/20/2021 Chronic nausea 04/30/2021 12/03/2021 Palpitations 10/27/2020 02/07/2021 Overview: Seeing [facility] Pneumonia due to COVID-19 virus 07/09/2020 07/10/2020 Diabetic ulcer of right midf oot associated with type 2 diabetes mellitus, with fat layer exposed 07/09/2020 02/07/2021 History of 2019 novel coronavirus disease (COVID -19) 02/21/2020 12/02/2021 Overview: 02/08/2020, 08/20/2021 Family history of malignant melanoma 11/05/2018 11/06/2018 Family history of malignant melanoma 11/05/2018 07/10/2020 Psychophysiological insomnia 09/14/2018 Pain associated with surgical procedure 09/13/19 19 06/30/2019 Overview: Left below knee amputation, 08/06/2018 Chronic obstructive lung disease 08/24/2018 06/30/2019 Insulin resistance 08/03/2018 06/30/2019 History of TB (tuberculosis) 02/02/2018 Overview: Treated 06/2014 History of TB (tuberculosis) 02/02/2018 Osteomyelitis of foot, left, acute 12/09/2017 06/30/2019 Shaking 08/31/2017 06/30/2019 Tongue biting 08/31/2017 11/05/2018 Sjogren's syndrome 08/31/2017 06/30/2019 Overview: Seeing Dr. Littlejohn Diabetic eye exam 04/28/2017 06/30/2019 Overview: Last done: 09/17/2018 Diabetic eye exam 04/28/2017 06/30/2019 Overview: Last done: 12/09/2017 Diabetic eye exam 04/16/2017 06/30/2019 Overview: Last done: 04/15/2017 Neuropathic pain 03/03/2017 06/30/2019 Current use of proton pump inhibitor 03/03/2017 06/30/2019 Adnexal mass, right 12/16/2016 06/30/2019 Overview: 3.[address] in 11/2016 Diabetic eye exam 11/12/2016 06/30/2019 Overview: Last done: 12/01/2016 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 2 diabetes mellitus 11/06/2016 04/12/2020 HINTON (nonalcoholic steatohepatitis) 11/06/2016 04/17/2017 RUQ abdominal mass 11/05/2016 06/30/2019 Lesion of liver 10/29/2016 11/05/2018 RUQ abdominal pain 10/29/2016 12/16/2016 Left temporal headache 10/29/2016 0 Blurred vision, left eye 10/29/2016 020 Bulge of lumbar disc without myelopathy 05/16/19 17 12/02/2021 Overview: L4-5 and L5-S1 History of temporal arteritis 02/05/2016 History of temporal arteritis 02/05/2016 History of temporal arteritis 02/05/2016 Chest pain 01/05/2016 01/09/2016 Acute nonintractable headache 01/05/2016 Diabetic eye exam 11/06/2015 06/30/2019 Overview: Last done: 10/10/2015 Obesity 09/27/2015 06/30/2019 Iron deficiency anemia 09/17/2015 7 Overview: Seeing Dr. 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 Type 2 diabetes mellitus with proteinuria 201506/30/2019 MRSA infection 01/31/2015 03/07/2015 Overview: Started originally with a toe nail. Mild persistent asthma without complication 01/1607/10/2020 Overview: Sees Dr. Ramesh: Mild persistent asthma. 04/23/2012 normal spirometry. 04/2012 Methacholine Inhalation Challenge positive at level 5. 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 Uses O2 as needed day and night. Left hip pain 12/26/2011 03/07/2015 DDD (degenerative disc disease), lumbar 12/26/19 12 06/30/2019 Overview: Sees Dr. 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 04/23/2012 normal spirometry. 04/2012 Methacholine Inhalation Challenge positive at level 5. Allergic rhinitis 04/17/2006 06/30/2019 Abdominal pain, right lower quadrant 02/05/2006 06/30/2019 Diarrhea 04/09/2005 06/30/2019 Internal hemorrhoids without mention of complica tion 04/09/2005 06/30/2019 Internal hemorrhoids 04/09/2005 11/05/2018 Irritable bowel syndrome 02/12/2005 020 Abdominal pain, generalized 06/16 Nonspecific elevation of lev els of transaminase or lactic acid dehydrogenase (LDH) 03/07/2015 On home oxygen therapy 0 Overview: 2 liters at , Sees dr. Xiao documented as of this encounter (statuses as of 05/29/2022) [facility] History of Past illness Narrative* Problem Noted Date Resolved Date COVID-19 virus infection 08/21/2021 022 Overview: 08/20/2021 Chronic nausea 04/30/2021 12/03/2021 Palpitations 10/27/2020 02/07/2021 Overview: Seeing [facility] Pneumonia due to COVID-19 virus 07/09/2020 07/10/2020 Diabetic ulcer of right midf oot associated with type 2 diabetes mellitus, with fat layer exposed 07/09/2020 02/07/2021 History of 2019 novel coronavirus disease (COVID -19) 02/21/2020 12/02/2021 Overview: 02/08/2020, 08/20/2021 Family history of malignant melanoma 11/05/2018 11/06/2018 Family history of malignant melanoma 11/05/2018 07/10/2020 Psychophysiological insomnia 09/14/2018 Pain associated with surgical procedure 09/13/1906/30/2019 Overview: Left below knee amputation, 08/06/2018 Chronic obstructive lung disease 08/24/2018 06/30/2019 Insulin resistance 08/03/2018 06/30/2019 History of TB (tuberculosis) 02/02/2018 Overview: Treated 06/2014 History of TB (tuberculosis) 02/02/2018 Osteomyelitis of foot, left, acute 12/09/2017 06/30/2019 Shaking 08/31/2017 06/30/2019 Tongue biting 08/31/2017 11/05/2018 Sjogren's syndrome 08/31/2017 06/30/2019 Overview: Seeing Dr. Littlejohn Diabetic eye exam 04/28/2017 06/30/2019 Overview: Last done: 09/17/2018 Diabetic eye exam 04/28/2017 06/30/2019 Overview: Last done: 12/09/2017 Diabetic eye exam 04/16/2017 06/30/2019 Overview: Last done: 04/15/2017 Neuropathic pain 03/03/2017 06/30/2019 Current use of proton pump inhibitor 03/03/2017 06/30/2019 Adnexal mass, right 12/16/2016 06/30/2019 Overview: 3.[address] in 11/2016 Diabetic eye exam 11/12/2016 06/30/2019 Overview: Last done: 12/01/2016 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 2 diabetes mellitus 11/06/2016 04/12/2020 HINTON (nonalcoholic steatohepatitis) 11/06/2016 04/17/2017 RUQ abdominal mass 11/05/2016 06/30/2019 Lesion of liver 10/29/2016 11/05/2018 RUQ abdominal pain 10/29/2016 12/16/2016 Left temporal headache 10/29/2016 0 Blurred vision, left eye 10/29/2016 020 Bulge of lumbar disc without myelopathy 05/16/1912/02/2021 Overview: L4-5 and L5-S1 History of temporal arteritis 02/05/2016 History of temporal arteritis 02/05/2016 History of temporal arteritis 02/05/2016 Chest pain 01/05/2016 01/09/2016 Acute nonintractable headache 01/05/2016 Diabetic eye exam 11/06/2015 06/30/2019 Overview: Last done: 10/10/2015 Obesity 09/27/2015 06/30/2019 Iron deficiency anemia 09/17/2015 7 Overview: Seeing Dr. 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 Type 2 diabetes mellitus with proteinuria 201506/30/2019 MRSA infection 01/31/2015 03/07/2015 Overview: Started originally with a toe nail. Mild persistent asthma without complication 01/1607/10/2020 Overview: Sees Dr. Ramesh: Mild persistent asthma. 04/23/2012 normal spirometry. 04/2012 Methacholine Inhalation Challenge positive at level 5. 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 Uses O2 as needed day and night. Left hip pain 12/26/2011 03/07/2015 DDD (degenerative disc disease), lumbar 12/26/19 12 06/30/2019 Overview: Sees Dr. 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 04/23/2012 normal spirometry. 04/2012 Methacholine Inhalation Challenge positive at level 5. Allergic rhinitis 04/17/2006 06/30/2019 Abdominal pain, right lower quadrant 02/05/2006 06/30/2019 Diarrhea 04/09/2005 06/30/2019 Internal hemorrhoids without mention of complica tion 04/09/2005 06/30/2019 Internal hemorrhoids 04/09/2005 11/05/2018 Irritable bowel syndrome 02/12/2005 020 Abdominal pain, generalized 06/16 Nonspecific elevation of lev els of transaminase or lactic acid dehydrogenase (LDH) 03/07/2015 On home oxygen therapy 0 Overview: 2 liters at , Sees dr. Xiao documented as of this encounter (statuses as of 05/30/2022) [facility]07-06-2022 History of Past illness Narrative* Problem Noted Date Resolved Date COVID-19 virus infection 08/21/2021 022 Overview: 08/20/2021 Chronic nausea 04/30/2021 12/03/2021 Palpitations 10/27/2020 02/07/2021 Overview: Seeing [facility] Pneumonia due to COVID-19 virus 07/09/2020 07/10/2020 Diabetic ulcer of right midf oot associated with type 2 diabetes mellitus, with fat layer exposed 07/09/2020 02/07/2021 History of 2019 novel coronavirus disease (COVID -19) 02/21/2020 12/02/2021 Overview: 02/08/2020, 08/20/2021 Family history of malignant melanoma 11/05/2018 11/06/2018 Family history of malignant melanoma 11/05/2018 07/10/2020 Psychophysiological insomnia 09/14/2018 Pain associated with surgical procedure 09/13/1906/30/2019 Overview: Left below knee amputation, 08/06/2018 Chronic obstructive lung disease 08/24/2018 06/30/2019 Insulin resistance 08/03/2018 06/30/2019 History of TB (tuberculosis) 02/02/2018 Overview: Treated 06/2014 History of TB (tuberculosis) 02/02/2018 Osteomyelitis of foot, left, acute 12/09/2017 06/30/2019 Shaking 08/31/2017 06/30/2019 Tongue biting 08/31/2017 11/05/2018 Sjogren's syndrome 08/31/2017 06/30/2019 Overview: Seeing Dr. Littlejohn Diabetic eye exam 04/28/2017 06/30/2019 Overview: Last done: 09/17/2018 Diabetic eye exam 04/28/2017 06/30/2019 Overview: Last done: 12/09/2017 Diabetic eye exam 04/16/2017 06/30/2019 Overview: Last done: 04/15/2017 Neuropathic pain 03/03/2017 06/30/2019 Current use of proton pump inhibitor 03/03/2017 06/30/2019 Adnexal mass, right 12/16/2016 06/30/2019 Overview: 3.[address] in 11/2016 Diabetic eye exam 11/12/2016 06/30/2019 Overview: Last done: 12/01/2016 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 2 diabetes mellitus 11/06/2016 04/12/2020 HINTON (nonalcoholic steatohepatitis) 11/06/2016 04/17/2017 RUQ abdominal mass 11/05/2016 06/30/2019 Lesion of liver 10/29/2016 11/05/2018 RUQ abdominal pain 10/29/2016 12/16/2016 Left temporal headache 10/29/2016 0 Blurred vision, left eye 10/29/2016 020 Leg edema, right 05/16/2016 06/02/2022 Bulge of lumbar disc without myelopathy 05/16/1912/02/2021 Overview: L4-5 and L5-S1 History of temporal arteritis 02/05/2016 History of temporal arteritis 02/05/2016 History of temporal arteritis 02/05/2016 Chest pain 01/05/2016 01/09/2016 Acute nonintractable headache 01/05/2016 Diabetic eye exam 11/06/2015 06/30/2019 Overview: Last done: 10/10/2015 Obesity 09/27/2015 06/30/2019 Iron deficiency anemia 09/17/2015 7 Overview: Seeing Dr. 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 Type 2 diabetes mellitus with proteinuria 201506/30/2019 MRSA infection 01/31/2015 03/07/2015 Overview: Started originally with a toe nail. Mild persistent asthma without complication 01/1607/10/2020 Overview: Sees Dr. Ramesh: Mild persistent asthma. 04/23/2012 normal spirometry. 04/2012 Methacholine Inhalation Challenge positive at level 5. 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 Uses O2 as needed day and night. Left hip pain 12/26/2011 03/07/2015 DDD (degenerative disc disease), lumbar 12/26/19 12 06/30/2019 Overview: Sees Dr. 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 04/23/2012 normal spirometry. 04/2012 Methacholine Inhalation Challenge positive at level 5. Allergic rhinitis 04/17/2006 06/30/2019 Abdominal pain, right lower quadrant 02/05/2006 06/30/2019 Diarrhea 04/09/2005 06/30/2019 Internal hemorrhoids without mention of complica tion 04/09/2005 06/30/2019 Internal hemorrhoids 04/09/2005 11/05/2018 Irritable bowel syndrome 02/12/2005 020 Abdominal pain, generalized 06/16 Nonspecific elevation of lev els of transaminase or lactic acid dehydrogenase (LDH) 03/07/2015 On home oxygen therapy 0 Overview: 2 liters at , Sees dr. Xiao documented as of this encounter (statuses as of 06/05/2022) [facility]07-06-2022 History of Past illness Narrative* Problem Noted Date Resolved Date COVID-19 virus infection 08/21/2021 022 Overview: 08/20/2021 Chronic nausea 04/30/2021 12/03/2021 Palpitations 10/27/2020 02/07/2021 Overview: Seeing [facility] Pneumonia due to COVID-19 virus 07/09/2020 07/10/2020 Diabetic ulcer of right midf oot associated with type 2 diabetes mellitus, with fat layer exposed 07/09/2020 02/07/2021 History of 2019 novel coronavirus disease (COVID -19) 02/21/2020 12/02/2021 Overview: 02/08/2020, 08/20/2021 Family history of malignant melanoma 11/05/2018 11/06/2018 Family history of malignant melanoma 11/05/2018 07/10/2020 Psychophysiological insomnia 09/14/2018 Pain associated with surgical procedure 09/13/1906/30/2019 Overview: Left below knee amputation, 08/06/2018 Chronic obstructive lung disease 08/24/2018 06/30/2019 Insulin resistance 08/03/2018 06/30/2019 History of TB (tuberculosis) 02/02/2018 Overview: Treated 06/2014 History of TB (tuberculosis) 02/02/2018 Osteomyelitis of foot, left, acute 12/09/2017 06/30/2019 Shaking 08/31/2017 06/30/2019 Tongue biting 08/31/2017 11/05/2018 Sjogren's syndrome 08/31/2017 06/30/2019 Overview: Seeing Dr. Littlejohn Diabetic eye exam 04/28/2017 06/30/2019 Overview: Last done: 09/17/2018 Diabetic eye exam 04/28/2017 06/30/2019 Overview: Last done: 12/09/2017 Diabetic eye exam 04/16/2017 06/30/2019 Overview: Last done: 04/15/2017 Neuropathic pain 03/03/2017 06/30/2019 Current use of proton pump inhibitor 03/03/2017 06/30/2019 Adnexal mass, right 12/16/2016 06/30/2019 Overview: 3.[address] in 11/2016 Diabetic eye exam 11/12/2016 06/30/2019 Overview: Last done: 12/01/2016 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 2 diabetes mellitus 11/06/2016 04/12/2020 HINTON (nonalcoholic steatohepatitis) 11/06/2016 04/17/2017 RUQ abdominal mass 11/05/2016 06/30/2019 Lesion of liver 10/29/2016 11/05/2018 RUQ abdominal pain 10/29/2016 12/16/2016 Left temporal headache 10/29/2016 0 Blurred vision, left eye 10/29/2016 020 Leg edema, right 05/16/2016 06/02/2022 Bulge of lumbar disc without myelopathy 05/16/19 17 12/02/2021 Overview: L4-5 and L5-S1 History of temporal arteritis 02/05/2016 History of temporal arteritis 02/05/2016 History of temporal arteritis 02/05/2016 Chest pain 01/05/2016 01/09/2016 Acute nonintractable headache 01/05/2016 Diabetic eye exam 11/06/2015 06/30/2019 Overview: Last done: 10/10/2015 Obesity 09/27/2015 06/30/2019 Iron deficiency anemia 09/17/2015 7 Overview: Seeing Dr. 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 Type 2 diabetes mellitus with proteinuria 201506/30/2019 MRSA infection 01/31/2015 03/07/2015 Overview: Started originally with a toe nail. Mild persistent asthma without complication 01/1607/10/2020 Overview: Sees Dr. Ramesh: Mild persistent asthma. 04/23/2012 normal spirometry. 04/2012 Methacholine Inhalation Challenge positive at level 5. 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 Uses O2 as needed day and night. Left hip pain 12/26/2011 03/07/2015 DDD (degenerative disc disease), lumbar 12/26/19 12 06/30/2019 Overview: Sees Dr. 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 04/23/2012 normal spirometry. 04/2012 Methacholine Inhalation Challenge positive at level 5. Allergic rhinitis 04/17/2006 06/30/2019 Abdominal pain, right lower quadrant 02/05/2006 06/30/2019 Diarrhea 04/09/2005 06/30/2019 Internal hemorrhoids without mention of complica tion 04/09/2005 06/30/2019 Internal hemorrhoids 04/09/2005 11/05/2018 Irritable bowel syndrome 02/12/2005 020 Abdominal pain, generalized 06/16 Nonspecific elevation of lev els of transaminase or lactic acid dehydrogenase (LDH) 03/07/2015 On home oxygen therapy 0 Overview: 2 liters at , Sees dr. Xiao documented as of this encounter (statuses as of 06/12/2022) [facility]07-[facility] History of Past illness Narrative* Problem Noted Date Resolved Date COVID-19 virus infection 08/21/2021 022 Overview: 08/20/2021 Chronic nausea 04/30/2021 12/03/2021 Palpitations 10/27/2020 02/07/2021 Overview: Seeing [facility] Pneumonia due to COVID-19 virus 07/09/2020 07/10/2020 Diabetic ulcer of right midf oot associated with type 2 diabetes mellitus, with fat layer exposed 07/09/2020 02/07/2021 History of 2019 novel coronavirus disease (COVID -19) 02/21/2020 12/02/2021 Overview: 02/08/2020, 08/20/2021 Family history of malignant melanoma 11/05/2018 11/06/2018 Family history of malignant melanoma 11/05/2018 07/10/2020 Psychophysiological insomnia 09/14/2018 Pain associated with surgical procedure 09/13/1906/30/2019 Overview: Left below knee amputation, 08/06/2018 Chronic obstructive lung disease 08/24/2018 06/30/2019 Insulin resistance 08/03/2018 06/30/2019 History of TB (tuberculosis) 02/02/2018 Overview: Treated 06/2014 History of TB (tuberculosis) 02/02/2018 Osteomyelitis of foot, left, acute 12/09/2017 06/30/2019 Shaking 08/31/2017 06/30/2019 Tongue biting 08/31/2017 11/05/2018 Sjogren's syndrome 08/31/2017 06/30/2019 Overview: Seeing Dr. Littlejohn Diabetic eye exam 04/28/2017 06/30/2019 Overview: Last done: 09/17/2018 Diabetic eye exam 04/28/2017 06/30/2019 Overview: Last done: 12/09/2017 Diabetic eye exam 04/16/2017 06/30/2019 Overview: Last done: 04/15/2017 Neuropathic pain 03/03/2017 06/30/2019 Current use of proton pump inhibitor 03/03/2017 06/30/2019 Adnexal mass, right 12/16/2016 06/30/2019 Overview: 3.[address] in 11/2016 Diabetic eye exam 11/12/2016 06/30/2019 Overview: Last done: 12/01/2016 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 2 diabetes mellitus 11/06/2016 04/12/2020 HINTON (nonalcoholic steatohepatitis) 11/06/2016 04/17/2017 RUQ abdominal mass 11/05/2016 06/30/2019 Lesion of liver 10/29/2016 11/05/2018 RUQ abdominal pain 10/29/2016 12/16/2016 Left temporal headache 10/29/2016 0 Blurred vision, left eye 10/29/2016 020 Leg edema, right 05/16/2016 06/02/2022 Bulge of lumbar disc without myelopathy 05/16/19 17 12/02/2021 Overview: L4-5 and L5-S1 History of temporal arteritis 02/05/2016 History of temporal arteritis 02/05/2016 History of temporal arteritis 02/05/2016 Chest pain 01/05/2016 01/09/2016 Acute nonintractable headache 01/05/2016 Diabetic eye exam 11/06/2015 06/30/2019 Overview: Last done: 10/10/2015 Obesity 09/27/2015 06/30/2019 Iron deficiency anemia 09/17/2015 7 Overview: Seeing Dr. 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 Type 2 diabetes mellitus with proteinuria 201506/30/2019 MRSA infection 01/31/2015 03/07/2015 Overview: Started originally with a toe nail. Mild persistent asthma without complication 01/1607/10/2020 Overview: Sees Dr. Ramesh: Mild persistent asthma. 04/23/2012 normal spirometry. 04/2012 Methacholine Inhalation Challenge positive at level 5. 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 Uses O2 as needed day and night. Left hip pain 12/26/2011 03/07/2015 DDD (degenerative disc disease), lumbar 12/26/19 12 06/30/2019 Overview: Sees Dr. 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 04/23/2012 normal spirometry. 04/2012 Methacholine Inhalation Challenge positive at level 5. Allergic rhinitis 04/17/2006 06/30/2019 Abdominal pain, right lower quadrant 02/05/2006 06/30/2019 Diarrhea 04/09/2005 06/30/2019 Internal hemorrhoids without mention of complica tion 04/09/2005 06/30/2019 Internal hemorrhoids 04/09/2005 11/05/2018 Irritable bowel syndrome 02/12/2005 020 Abdominal pain, generalized 06/16 Nonspecific elevation of lev els of transaminase or lactic acid dehydrogenase (LDH) 03/07/2015 On home oxygen therapy 0 Overview: 2 liters at , Sees dr. Xiao documented as of this encounter (statuses as of 06/28/2022) [facility] History of Past illness Narrative* Problem Noted Date Resolved Date COVID-19 virus infection 08/21/2021 022 Overview: 08/20/2021 Chronic nausea 04/30/2021 12/03/2021 Palpitations 10/27/2020 02/07/2021 Overview: Seeing [facility] Pneumonia due to COVID-19 virus 07/09/2020 07/10/2020 Diabetic ulcer of right midf oot associated with type 2 diabetes mellitus, with fat layer exposed 07/09/2020 02/07/2021 History of 2019 novel coronavirus disease (COVID -19) 02/21/2020 12/02/2021 Overview: 02/08/2020, 08/20/2021 Family history of malignant melanoma 11/05/2018 11/06/2018 Family history of malignant melanoma 11/05/2018 07/10/2020 Psychophysiological insomnia 09/14/2018 Pain associated with surgical procedure 09/13/1906/30/2019 Overview: Left below knee amputation, 08/06/2018 Chronic obstructive lung disease 08/24/2018 06/30/2019 Insulin resistance 08/03/2018 06/30/2019 History of TB (tuberculosis) 02/02/2018 Overview: Treated 06/2014 History of TB (tuberculosis) 02/02/2018 Osteomyelitis of foot, left, acute 12/09/2017 06/30/2019 Shaking 08/31/2017 06/30/2019 Tongue biting 08/31/2017 11/05/2018 Sjogren's syndrome 08/31/2017 06/30/2019 Overview: Seeing Dr. Littlejohn Diabetic eye exam 04/28/2017 06/30/2019 Overview: Last done: 09/17/2018 Diabetic eye exam 04/28/2017 06/30/2019 Overview: Last done: 12/09/2017 Diabetic eye exam 04/16/2017 06/30/2019 Overview: Last done: 04/15/2017 Neuropathic pain 03/03/2017 06/30/2019 Current use of proton pump inhibitor 03/03/2017 06/30/2019 Adnexal mass, right 12/16/2016 06/30/2019 Overview: 3.[address] in 11/2016 Diabetic eye exam 11/12/2016 06/30/2019 Overview: Last done: 12/01/2016 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 2 diabetes mellitus 11/06/2016 04/12/2020 HINTON (nonalcoholic steatohepatitis) 11/06/2016 04/17/2017 RUQ abdominal mass 11/05/2016 06/30/2019 Lesion of liver 10/29/2016 11/05/2018 RUQ abdominal pain 10/29/2016 12/16/2016 Left temporal headache 10/29/2016 0 Blurred vision, left eye 10/29/2016 020 Leg edema, right 05/16/2016 06/02/2022 Bulge of lumbar disc without myelopathy 05/16/19 17 12/02/2021 Overview: L4-5 and L5-S1 History of temporal arteritis 02/05/2016 History of temporal arteritis 02/05/2016 History of temporal arteritis 02/05/2016 Chest pain 01/05/2016 01/09/2016 Acute nonintractable headache 01/05/2016 Diabetic eye exam 11/06/2015 06/30/2019 Overview: Last done: 10/10/2015 Obesity 09/27/2015 06/30/2019 Iron deficiency anemia 09/17/2015 7 Overview: Seeing Dr. 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 Type 2 diabetes mellitus with proteinuria 201506/30/2019 MRSA infection 01/31/2015 03/07/2015 Overview: Started originally with a toe nail. Mild persistent asthma without complication 01/1607/10/2020 Overview: Sees Dr. Ramesh: Mild persistent asthma. 04/23/2012 normal spirometry. 04/2012 Methacholine Inhalation Challenge positive at level 5. 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 Uses O2 as needed day and night. Left hip pain 12/26/2011 03/07/2015 DDD (degenerative disc disease), lumbar 12/26/19 12 06/30/2019 Overview: Sees Dr. 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 04/23/2012 normal spirometry. 04/2012 Methacholine Inhalation Challenge positive at level 5. Allergic rhinitis 04/17/2006 06/30/2019 Abdominal pain, right lower quadrant 02/05/2006 06/30/2019 Diarrhea 04/09/2005 06/30/2019 Internal hemorrhoids without mention of complica tion 04/09/2005 06/30/2019 Internal hemorrhoids 04/09/2005 11/05/2018 Irritable bowel syndrome 02/12/2005 020 Abdominal pain, generalized 06/16 Nonspecific elevation of lev els of transaminase or lactic acid dehydrogenase (LDH) 03/07/2015 On home oxygen therapy 0 Overview: 2 liters at , Sees dr. Xiao documented as of this encounter (statuses as of 08/04/2022) [facility]07-06-2022 History of Past illness Narrative* Problem Noted Date Resolved Date COVID-19 virus infection 08/21/2021 022 Overview: 08/20/2021 Chronic nausea 04/30/2021 12/03/2021 Palpitations 10/27/2020 02/07/2021 Overview: Seeing [facility] Pneumonia due to COVID-19 virus 07/09/2020 07/10/2020 Diabetic ulcer of right midf oot associated with type 2 diabetes mellitus, with fat layer exposed 07/09/2020 02/07/2021 History of 2019 novel coronavirus disease (COVID -19) 02/21/2020 12/02/2021 Overview: 02/08/2020, 08/20/2021 Family history of malignant melanoma 11/05/2018 11/06/2018 Family history of malignant melanoma 11/05/2018 07/10/2020 Psychophysiological insomnia 09/14/2018 Pain associated with surgical procedure 09/13/1906/30/2019 Overview: Left below knee amputation, 08/06/2018 Chronic obstructive lung disease 08/24/2018 06/30/2019 Insulin resistance 08/03/2018 06/30/2019 History of TB (tuberculosis) 02/02/2018 Overview: Treated 06/2014 History of TB (tuberculosis) 02/02/2018 Osteomyelitis of foot, left, acute 12/09/2017 06/30/2019 Shaking 08/31/2017 06/30/2019 Tongue biting 08/31/2017 11/05/2018 Sjogren's syndrome 08/31/2017 06/30/2019 Overview: Seeing Dr. Littlejohn Diabetic eye exam 04/28/2017 06/30/2019 Overview: Last done: 09/17/2018 Diabetic eye exam 04/28/2017 06/30/2019 Overview: Last done: 12/09/2017 Diabetic eye exam 04/16/2017 06/30/2019 Overview: Last done: 04/15/2017 Neuropathic pain 03/03/2017 06/30/2019 Current use of proton pump inhibitor 03/03/2017 06/30/2019 Adnexal mass, right 12/16/2016 06/30/2019 Overview: 3.[address] in 11/2016 Diabetic eye exam 11/12/2016 06/30/2019 Overview: Last done: 12/01/2016 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 2 diabetes mellitus 11/06/2016 04/12/2020 HINTON (nonalcoholic steatohepatitis) 11/06/2016 04/17/2017 RUQ abdominal mass 11/05/2016 06/30/2019 Lesion of liver 10/29/2016 11/05/2018 RUQ abdominal pain 10/29/2016 12/16/2016 Left temporal headache 10/29/2016 0 Blurred vision, left eye 10/29/2016 020 Leg edema, right 05/16/2016 06/02/2022 Bulge of lumbar disc without myelopathy 05/16/19 17 12/02/2021 Overview: L4-5 and L5-S1 History of temporal arteritis 02/05/2016 History of temporal arteritis 02/05/2016 History of temporal arteritis 02/05/2016 Chest pain 01/05/2016 01/09/2016 Acute nonintractable headache 01/05/2016 Diabetic eye exam 11/06/2015 06/30/2019 Overview: Last done: 10/10/2015 Obesity 09/27/2015 06/30/2019 Iron deficiency anemia 09/17/2015 7 Overview: Seeing Dr. 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 Type 2 diabetes mellitus with proteinuria 201506/30/2019 MRSA infection 01/31/2015 03/07/2015 Overview: Started originally with a toe nail. Mild persistent asthma without complication 01/1607/10/2020 Overview: Sees Dr. Ramesh: Mild persistent asthma. 04/23/2012 normal spirometry. 04/2012 Methacholine Inhalation Challenge positive at level 5. 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 Uses O2 as needed day and night. Left hip pain 12/26/2011 03/07/2015 DDD (degenerative disc disease), lumbar 12/26/19 12 06/30/2019 Overview: Sees Dr. 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 04/23/2012 normal spirometry. 04/2012 Methacholine Inhalation Challenge positive at level 5. Allergic rhinitis 04/17/2006 06/30/2019 Abdominal pain, right lower quadrant 02/05/2006 06/30/2019 Diarrhea 04/09/2005 06/30/2019 Internal hemorrhoids without mention of complica tion 04/09/2005 06/30/2019 Internal hemorrhoids 04/09/2005 11/05/2018 Irritable bowel syndrome 02/12/2005 020 Abdominal pain, generalized 06/16 Nonspecific elevation of lev els of transaminase or lactic acid dehydrogenase (LDH) 03/07/2015 On home oxygen therapy 0 Overview: 2 liters at , Sees dr. Xiao documented as of this encounter (statuses as of 08/07/2022) [facility]07-[facility]22 History of Past illness Narrative* Problem Noted Date Resolved Date COVID-19 virus infection 08/21/2021 022 Overview: 08/20/2021 Chronic nausea 04/30/2021 12/03/2021 Palpitations 10/27/2020 02/07/2021 Overview: Seeing [facility] Pneumonia due to COVID-19 virus 07/09/2020 07/10/2020 Diabetic ulcer of right midf oot associated with type 2 diabetes mellitus, with fat layer exposed 07/09/2020 02/07/2021 History of 2019 novel coronavirus disease (COVID -19) 02/21/2020 12/02/2021 Overview: 02/08/2020, 08/20/2021 Family history of malignant melanoma 11/05/2018 11/06/2018 Family history of malignant melanoma 11/05/2018 07/10/2020 Psychophysiological insomnia 09/14/2018 Pain associated with surgical procedure 09/13/1906/30/2019 Overview: Left below knee amputation, 08/06/2018 Chronic obstructive lung disease 08/24/2018 06/30/2019 Insulin resistance 08/03/2018 06/30/2019 History of TB (tuberculosis) 02/02/2018 Overview: Treated 06/2014 History of TB (tuberculosis) 02/02/2018 Osteomyelitis of foot, left, acute 12/09/2017 06/30/2019 Shaking 08/31/2017 06/30/2019 Tongue biting 08/31/2017 11/05/2018 Sjogren's syndrome 08/31/2017 06/30/2019 Overview: Seeing Dr. Littlejohn Diabetic eye exam 04/28/2017 06/30/2019 Overview: Last done: 09/17/2018 Diabetic eye exam 04/28/2017 06/30/2019 Overview: Last done: 12/09/2017 Diabetic eye exam 04/16/2017 06/30/2019 Overview: Last done: 04/15/2017 Neuropathic pain 03/03/2017 06/30/2019 Current use of proton pump inhibitor 03/03/2017 06/30/2019 Adnexal mass, right 12/16/2016 06/30/2019 Overview: 3.[address] in 11/2016 Diabetic eye exam 11/12/2016 06/30/2019 Overview: Last done: 12/01/2016 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 2 diabetes mellitus 11/06/2016 04/12/2020 HINTON (nonalcoholic steatohepatitis) 11/06/2016 04/17/2017 RUQ abdominal mass 11/05/2016 06/30/2019 Lesion of liver 10/29/2016 11/05/2018 RUQ abdominal pain 10/29/2016 12/16/2016 Left temporal headache 10/29/2016 0 Blurred vision, left eye 10/29/2016 020 Leg edema, right 05/16/2016 06/02/2022 Bulge of lumbar disc without myelopathy 05/16/19 17 12/02/2021 Overview: L4-5 and L5-S1 History of temporal arteritis 02/05/2016 History of temporal arteritis 02/05/2016 History of temporal arteritis 02/05/2016 Chest pain 01/05/2016 01/09/2016 Acute nonintractable headache 01/05/2016 Diabetic eye exam 11/06/2015 06/30/2019 Overview: Last done: 10/10/2015 Obesity 09/27/2015 06/30/2019 Iron deficiency anemia 09/17/2015 7 Overview: Seeing Dr. 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 Type 2 diabetes mellitus with proteinuria 201506/30/2019 MRSA infection 01/31/2015 03/07/2015 Overview: Started originally with a toe nail. Mild persistent asthma without complication 01/1607/10/2020 Overview: Sees Dr. Ramesh: Mild persistent asthma. 04/23/2012 normal spirometry. 04/2012 Methacholine Inhalation Challenge positive at level 5. 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 Uses O2 as needed day and night. Left hip pain 12/26/2011 03/07/2015 DDD (degenerative disc disease), lumbar 12/26/19 12 06/30/2019 Overview: Sees Dr. 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 04/23/2012 normal spirometry. 04/2012 Methacholine Inhalation Challenge positive at level 5. Allergic rhinitis 04/17/2006 06/30/2019 Abdominal pain, right lower quadrant 02/05/2006 06/30/2019 Diarrhea 04/09/2005 06/30/2019 Internal hemorrhoids without mention of complica tion 04/09/2005 06/30/2019 Internal hemorrhoids 04/09/2005 11/05/2018 Irritable bowel syndrome 02/12/2005 020 Abdominal pain, generalized 06/16 Nonspecific elevation of lev els of transaminase or lactic acid dehydrogenase (LDH) 03/07/2015 On home oxygen therapy 0 Overview: 2 liters at , Sees dr. Xiao documented as of this encounter (statuses as of 08/07/2022) [facility]07-[facility]22 History of Past illness Narrative* Problem Noted Date Resolved Date COVID-19 virus infection 08/21/2021 022 Overview: 08/20/2021 Chronic nausea 04/30/2021 12/03/2021 Palpitations 10/27/2020 02/07/2021 Overview: Seeing [facility] Pneumonia due to COVID-19 virus 07/09/2020 07/10/2020 Diabetic ulcer of right midf oot associated with type 2 diabetes mellitus, with fat layer exposed 07/09/2020 02/07/2021 History of 2019 novel coronavirus disease (COVID -19) 02/21/2020 12/02/2021 Overview: 02/08/2020, 08/20/2021 Family history of malignant melanoma 11/05/2018 11/06/2018 Family history of malignant melanoma 11/05/2018 07/10/2020 Psychophysiological insomnia 09/14/2018 Pain associated with surgical procedure 09/13/19 19 06/30/2019 Overview: Left below knee amputation, 08/06/2018 Chronic obstructive lung disease 08/24/2018 06/30/2019 Insulin resistance 08/03/2018 06/30/2019 History of TB (tuberculosis) 02/02/2018 Overview: Treated 06/2014 History of TB (tuberculosis) 02/02/2018 Osteomyelitis of foot, left, acute 12/09/2017 06/30/2019 Shaking 08/31/2017 06/30/2019 Tongue biting 08/31/2017 11/05/2018 Sjogren's syndrome 08/31/2017 06/30/2019 Overview: Seeing Dr. Littlejohn Diabetic eye exam 04/28/2017 06/30/2019 Overview: Last done: 09/17/2018 Diabetic eye exam 04/28/2017 06/30/2019 Overview: Last done: 12/09/2017 Diabetic eye exam 04/16/2017 06/30/2019 Overview: Last done: 04/15/2017 Neuropathic pain 03/03/2017 06/30/2019 Current use of proton pump inhibitor 03/03/2017 06/30/2019 Adnexal mass, right 12/16/2016 06/30/2019 Overview: 3.[address] in 11/2016 Diabetic eye exam 11/12/2016 06/30/2019 Overview: Last done: 12/01/2016 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 2 diabetes mellitus 11/06/2016 04/12/2020 HINTON (nonalcoholic steatohepatitis) 11/06/2016 04/17/2017 RUQ abdominal mass 11/05/2016 06/30/2019 Lesion of liver 10/29/2016 11/05/2018 RUQ abdominal pain 10/29/2016 12/16/2016 Left temporal headache 10/29/2016 0 Blurred vision, left eye 10/29/2016 020 Leg edema, right 05/16/2016 06/02/2022 Bulge of lumbar disc without myelopathy 05/16/19 17 12/02/2021 Overview: L4-5 and L5-S1 History of temporal arteritis 02/05/2016 History of temporal arteritis 02/05/2016 History of temporal arteritis 02/05/2016 Chest pain 01/05/2016 01/09/2016 Acute nonintractable headache 01/05/2016 Diabetic eye exam 11/06/2015 06/30/2019 Overview: Last done: 10/10/2015 Obesity 09/27/2015 06/30/2019 Iron deficiency anemia 09/17/2015 7 Overview: Seeing Dr. 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 Type 2 diabetes mellitus with proteinuria 201506/30/2019 MRSA infection 01/31/2015 03/07/2015 Overview: Started originally with a toe nail. Mild persistent asthma without complication 01/1607/10/2020 Overview: Sees Dr. Ramesh: Mild persistent asthma. 04/23/2012 normal spirometry. 04/2012 Methacholine Inhalation Challenge positive at level 5. 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 Uses O2 as needed day and night. Left hip pain 12/26/2011 03/07/2015 DDD (degenerative disc disease), lumbar 12/26/19 12 06/30/2019 Overview: Sees Dr. 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 04/23/2012 normal spirometry. 04/2012 Methacholine Inhalation Challenge positive at level 5. Allergic rhinitis 04/17/2006 06/30/2019 Abdominal pain, right lower quadrant 02/05/2006 06/30/2019 Diarrhea 04/09/2005 06/30/2019 Internal hemorrhoids without mention of complica tion 04/09/2005 06/30/2019 Internal hemorrhoids 04/09/2005 11/05/2018 Irritable bowel syndrome 02/12/2005 020 Abdominal pain, generalized 06/16 Nonspecific elevation of lev els of transaminase or lactic acid dehydrogenase (LDH) 03/07/2015 On home oxygen therapy 0 Overview: 2 liters at , Sees dr. Xiao documented as of this encounter (statuses as of 08/09/2022) [facility] History of Past illness Narrative* Problem Noted Date Resolved Date COVID-19 virus infection 08/21/2021 022 Overview: 08/20/2021 Chronic nausea 04/30/2021 12/03/2021 Palpitations 10/27/2020 02/07/2021 Overview: Seeing [facility] Pneumonia due to COVID-19 virus 07/09/2020 07/10/2020 Diabetic ulcer of right midf oot associated with type 2 diabetes mellitus, with fat layer exposed 07/09/2020 02/07/2021 History of 2019 novel coronavirus disease (COVID -19) 02/21/2020 12/02/2021 Overview: 02/08/2020, 08/20/2021 Family history of malignant melanoma 11/05/2018 11/06/2018 Family history of malignant melanoma 11/05/2018 07/10/2020 Psychophysiological insomnia 09/14/2018 Pain associated with surgical procedure 09/13/1906/30/2019 Overview: Left below knee amputation, 08/06/2018 Chronic obstructive lung disease 08/24/2018 06/30/2019 Insulin resistance 08/03/2018 06/30/2019 History of TB (tuberculosis) 02/02/2018 Overview: Treated 06/2014 History of TB (tuberculosis) 02/02/2018 Osteomyelitis of foot, left, acute 12/09/2017 06/30/2019 Shaking 08/31/2017 06/30/2019 Tongue biting 08/31/2017 11/05/2018 Sjogren's syndrome 08/31/2017 06/30/2019 Overview: Seeing Dr. Littlejohn Diabetic eye exam 04/28/2017 06/30/2019 Overview: Last done: 09/17/2018 Diabetic eye exam 04/28/2017 06/30/2019 Overview: Last done: 12/09/2017 Diabetic eye exam 04/16/2017 06/30/2019 Overview: Last done: 04/15/2017 Neuropathic pain 03/03/2017 06/30/2019 Current use of proton pump inhibitor 03/03/2017 06/30/2019 Adnexal mass, right 12/16/2016 06/30/2019 Overview: 3.[address] in 11/2016 Diabetic eye exam 11/12/2016 06/30/2019 Overview: Last done: 12/01/2016 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 2 diabetes mellitus 11/06/2016 04/12/2020 HINTON (nonalcoholic steatohepatitis) 11/06/2016 04/17/2017 RUQ abdominal mass 11/05/2016 06/30/2019 Lesion of liver 10/29/2016 11/05/2018 RUQ abdominal pain 10/29/2016 12/16/2016 Left temporal headache 10/29/2016 0 Blurred vision, left eye 10/29/2016 020 Leg edema, right 05/16/2016 06/02/2022 Bulge of lumbar disc without myelopathy 05/16/19 17 12/02/2021 Overview: L4-5 and L5-S1 History of temporal arteritis 02/05/2016 History of temporal arteritis 02/05/2016 History of temporal arteritis 02/05/2016 Chest pain 01/05/2016 01/09/2016 Acute nonintractable headache 01/05/2016 Diabetic eye exam 11/06/2015 06/30/2019 Overview: Last done: 10/10/2015 Obesity 09/27/2015 06/30/2019 Iron deficiency anemia 09/17/2015 7 Overview: Seeing Dr. 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 Type 2 diabetes mellitus with proteinuria 201506/30/2019 MRSA infection 01/31/2015 03/07/2015 Overview: Started originally with a toe nail. Mild persistent asthma without complication 01/1607/10/2020 Overview: Sees Dr. Ramesh: Mild persistent asthma. 04/23/2012 normal spirometry. 04/2012 Methacholine Inhalation Challenge positive at level 5. 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 Uses O2 as needed day and night. Left hip pain 12/26/2011 03/07/2015 DDD (degenerative disc disease), lumbar 12/26/19 12 06/30/2019 Overview: Sees Dr. 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 04/23/2012 normal spirometry. 04/2012 Methacholine Inhalation Challenge positive at level 5. Allergic rhinitis 04/17/2006 06/30/2019 Abdominal pain, right lower quadrant 02/05/2006 06/30/2019 Diarrhea 04/09/2005 06/30/2019 Internal hemorrhoids without mention of complica tion 04/09/2005 06/30/2019 Internal hemorrhoids 04/09/2005 11/05/2018 Irritable bowel syndrome 02/12/2005 020 Abdominal pain, generalized 06/16 Nonspecific elevation of lev els of transaminase or lactic acid dehydrogenase (LDH) 03/07/2015 On home oxygen therapy 0 Overview: 2 liters at , Sees dr. Xiao documented as of this encounter (statuses as of 08/09/2022) [facility]07-06-2022 History of Past illness Narrative* Problem Noted Date Diagnosed Date Resolved Date COVID-19 virus infection 08/21/202107/2021 Overview: 08/20/2021 Chronic nausea 04/30/2021 12/03/2021 Palpitations 10/27/2020 02/07/2021 Overview: Seeing [facility] Pneumonia due to COVID-19 virus 07/09/2020 07/10/2020 Diabetic ulcer of right midf oot associated with type 2 diabetes mellitus, with fat layer exposed 07/09/2020 02/07/2021 History of 2019 novel martinez virus disease (COVID-19) 02/21/2020 12/02/2021 Overview: 02/08/2020, 08/20/2021 Family history of malignant melanoma 11/05/2018 11/06/2018 Family history of malignant melanoma 11/05/2018 07/10/2020 Psychophysiological insomnia 09/14/2018 06/30/2019 Pain associated with surgical procedure 09/12/2018 06/30/2019 Overview: Left below knee amputation, 08/06/2018 Chronic obstructive lung disease 08/24/2018 06/30/2019 Insulin resistance 08/03/2018 0 History of TB (tuberculosis) 02/02/2018 12/02/2021 Overview: Treated 06/2014 History of TB (tuberculosis) 02/02/2018 07/10/2020 Osteomyelitis of foot, left, acute 12/09/2017 06/30/2019 Shaking 08/31/2017 06/30/2019 Tongue biting 08/31/2017 11/05/2018 Sjogren's syndrome 08/31/2017 0 Overview: Seeing Dr. Littlejohn Diabetic eye exam 04/28/2017 06/30/2019 Overview: Last done: 09/17/2018 Diabetic eye exam 04/28/2017 06/30/2019 Overview: Last done: 12/09/2017 Diabetic eye exam 04/16/2017 06/30/2019 Overview: Last done: 04/15/2017 Neuropathic pain 03/03/2017 06/30/2019 Current use of proton pump inhibitor 03/03/2017 06/30/2019 Adnexal mass, right 12/16/2016 06/30/19 20 Overview: 3.[address] in 11/2016 Diabetic eye exam 11/12/2016 06/30/2019 Overview: Last done: 12/01/2016 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 2 diabetes mellitus 11/06/2016 04/12/2020 HINTON (nonalcoholic steatohepatitis) 11/06/2016 04/17/2017 RUQ abdominal mass 11/05/2016 0 Lesion of liver 10/29/2016 11/05/2018 RUQ abdominal pain 10/29/2016 7 Left temporal headache 10/29/201606/29 Blurred vision, left eye 10/29/2016 Leg edema, right 05/16/2016 06/02/2022 Bulge of lumbar disc without myelopathy 05/15/2016 12/02/2021 Overview: L4-5 and L5-S1 History of temporal arteritis 02/05/2016 04/17/2017 History of temporal arteritis 02/05/2016 12/02/2021 History of temporal arteritis 02/05/2016 07/10/2020 Chest pain 01/05/2016 01/09/2016 Acute nonintractable headache 01/05/2016 01/09/2016 Diabetic eye exam 11/06/2015 06/30/2019 Overview: Last done: 10/10/2015 Obesity 09/27/2015 06/30/2019 Iron deficiency anemia 09/17/201503/26 Overview: Seeing Dr. Cole Bilateral renal cysts 07/06/20152018 Bilateral renal cysts 07/06/20152019 Proliferative diabetic retin opathy without macular edema associated with type 2 diabetes mellitus 06/28/2015 06/30/2019 Overview: Last done: 08/30/16 Diabetic Retinopathy Last done: 06/26/15: Diabetic Retinopathy Generalized edema 06/26/2015 06/30/2019 Fever 05/24/2015 09/24/2015 Right flank pain 05/24/2015 09/24/2015 Osteomyelitis of ankle or foot 04/30/2015 06/30/2019 Systemic lupus erythematosus 04/30/2015 06/30/2019 Abnormal weight gain 03/09/2015 016 Insulin long-term use 03/07/20152019 Amputation of great toe, right 02/28/2015 06/30/2019 Overview: Right, due to diabetic ulcer. Type 2 diabetes mellitus with proteinuria 02/21/2015 06/30/2019 MRSA infection 01/31/2015 03/07/2015 Overview: Started originally with a toe nail. Mild persistent asthma without complication 01/31/2015 07/10/2020 Overview: Sees Dr. Ramesh: Mild persistent asthma. 04/23/2012 normal spirometry. 04/2012 Methacholine Inhalation Challenge positive at level 5. 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 Uses O2 as needed day and night. Left hip pain 12/26/2011 03/07/2015 DDD (degenerative disc disease), lumbar 12/26/2011 06/30/2019 Overview: Sees Dr. 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 04/23/2012 normal spirometry. 04/2012 Methacholine Inhalation Challenge positive at level 5. Allergic rhinitis 04/17/2006 06/30/2019 Abdominal pain, right lower quadrant 02/05/2006 06/30/2019 Diarrhea 04/09/2005 06/30/2019 Internal hemorrhoids without mention of complication 04/09/2005 06/30/2019 Internal hemorrhoids 04/09/2005 019 Irritable bowel syndrome 02/12/2005 Abdominal pain, generalized 06/30/2019 Nonspecific elevation of lev els of transaminase or lactic acid dehydrogenase (LDH) 03/07/2015 On home oxygen therapy 06/29 Overview: 2 liters at , Sees dr. Xiao documented as of this encounter (statuses as of 09/03/2022) [facility]07-[facility]-2022 History of Past illness Narrative* Problem Noted Date Diagnosed Date Resolved Date COVID-19 virus infection 08/21/202107/2021 Overview: 08/20/2021 Chronic nausea 04/30/2021 12/03/2021 Palpitations 10/27/2020 02/07/2021 Overview: Seeing [facility] Pneumonia due to COVID-19 virus 07/09/2020 07/10/2020 Diabetic ulcer of right midf oot associated with type 2 diabetes mellitus, with fat layer exposed 07/09/2020 02/07/2021 History of 2019 novel martinez virus disease (COVID-19) 02/21/2020 12/02/2021 Overview: 02/08/2020, 08/20/2021 Family history of malignant melanoma 11/05/2018 11/06/2018 Family history of malignant melanoma 11/05/2018 07/10/2020 Psychophysiological insomnia 09/14/2018 06/30/2019 Pain associated with surgical procedure 09/12/2018 06/30/2019 Overview: Left below knee amputation, 08/06/2018 Chronic obstructive lung disease 08/24/2018 06/30/2019 Insulin resistance 08/03/2018 0 History of TB (tuberculosis) 02/02/2018 12/02/2021 Overview: Treated 06/2014 History of TB (tuberculosis) 02/02/2018 07/10/2020 Osteomyelitis of foot, left, acute 12/09/2017 06/30/2019 Shaking 08/31/2017 06/30/2019 Tongue biting 08/31/2017 11/05/2018 Sjogren's syndrome 08/31/2017 0 Overview: Seeing Dr. Littlejohn Diabetic eye exam 04/28/2017 06/30/2019 Overview: Last done: 09/17/2018 Diabetic eye exam 04/28/2017 06/30/2019 Overview: Last done: 12/09/2017 Diabetic eye exam 04/16/2017 06/30/2019 Overview: Last done: 04/15/2017 Neuropathic pain 03/03/2017 06/30/2019 Current use of proton pump inhibitor 03/03/2017 06/30/2019 Adnexal mass, right 12/16/2016 06/30/19 20 Overview: 3.[address] in 11/2016 Diabetic eye exam 11/12/2016 06/30/2019 Overview: Last done: 12/01/2016 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 2 diabetes mellitus 11/06/2016 04/12/2020 HINTON (nonalcoholic steatohepatitis) 11/06/2016 04/17/2017 RUQ abdominal mass 11/05/2016 0 Lesion of liver 10/29/2016 11/05/2018 RUQ abdominal pain 10/29/2016 7 Left temporal headache 10/29/201606/29 Blurred vision, left eye 10/29/2016 Leg edema, right 05/16/2016 06/02/2022 Bulge of lumbar disc without myelopathy 05/15/2016 12/02/2021 Overview: L4-5 and L5-S1 History of temporal arteritis 02/05/2016 04/17/2017 History of temporal arteritis 02/05/2016 12/02/2021 History of temporal arteritis 02/05/2016 07/10/2020 Chest pain 01/05/2016 01/09/2016 Acute nonintractable headache 01/05/2016 01/09/2016 Diabetic eye exam 11/06/2015 06/30/2019 Overview: Last done: 10/10/2015 Obesity 09/27/2015 06/30/2019 Iron deficiency anemia 09/17/201503/26 Overview: Seeing Dr. Cole Bilateral renal cysts 07/06/20152018 Bilateral renal cysts 07/06/20152019 Proliferative diabetic retin opathy without macular edema associated with type 2 diabetes mellitus 06/28/2015 06/30/2019 Overview: Last done: 08/30/16 Diabetic Retinopathy Last done: 06/26/15: Diabetic Retinopathy Generalized edema 06/26/2015 06/30/2019 Fever 05/24/2015 09/24/2015 Right flank pain 05/24/2015 09/24/2015 Osteomyelitis of ankle or foot 04/30/2015 06/30/2019 Systemic lupus erythematosus 04/30/2015 06/30/2019 Abnormal weight gain 03/09/2015 016 Insulin long-term use 03/07/20152019 Amputation of great toe, right 02/28/2015 06/30/2019 Overview: Right, due to diabetic ulcer. Type 2 diabetes mellitus with proteinuria 02/21/2015 06/30/2019 MRSA infection 01/31/2015 03/07/2015 Overview: Started originally with a toe nail. Mild persistent asthma without complication 01/31/2015 07/10/2020 Overview: Sees Dr. Ramesh: Mild persistent asthma. 04/23/2012 normal spirometry. 04/2012 Methacholine Inhalation Challenge positive at level 5. 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 Uses O2 as needed day and night. Left hip pain 12/26/2011 03/07/2015 DDD (degenerative disc disease), lumbar 12/26/2011 06/30/2019 Overview: Sees Dr. 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 04/23/2012 normal spirometry. 04/2012 Methacholine Inhalation Challenge positive at level 5. Allergic rhinitis 04/17/2006 06/30/2019 Abdominal pain, right lower quadrant 02/05/2006 06/30/2019 Diarrhea 04/09/2005 06/30/2019 Internal hemorrhoids without mention of complication 04/09/2005 06/30/2019 Internal hemorrhoids 04/09/2005 019 Irritable bowel syndrome 02/12/2005 Abdominal pain, generalized 06/30/2019 Nonspecific elevation of lev els of transaminase or lactic acid dehydrogenase (LDH) 03/07/2015 On home oxygen therapy 06/29 Overview: 2 liters at , Sees dr. Xiao documented as of this encounter (statuses as of 09/03/2022) [facility]07-[facility] History of Past illness Narrative* Problem Noted Date Diagnosed Date Resolved Date COVID-19 virus infection 08/21/202107/2021 Overview: 08/20/2021 Chronic nausea 04/30/2021 12/03/2021 Palpitations 10/27/2020 02/07/2021 Overview: Seeing [facility] Pneumonia due to COVID-19 virus 07/09/2020 07/10/2020 Diabetic ulcer of right midf oot associated with type 2 diabetes mellitus, with fat layer exposed 07/09/2020 02/07/2021 History of 2019 novel martinez virus disease (COVID-19) 02/21/2020 12/02/2021 Overview: 02/08/2020, 08/20/2021 Family history of malignant melanoma 11/05/2018 11/06/2018 Family history of malignant melanoma 11/05/2018 07/10/2020 Psychophysiological insomnia 09/14/2018 06/30/2019 Pain associated with surgical procedure 09/12/2018 06/30/2019 Overview: Left below knee amputation, 08/06/2018 Chronic obstructive lung disease 08/24/2018 06/30/2019 Insulin resistance 08/03/2018 0 History of TB (tuberculosis) 02/02/2018 12/02/2021 Overview: Treated 06/2014 History of TB (tuberculosis) 02/02/2018 07/10/2020 Osteomyelitis of foot, left, acute 12/09/2017 06/30/2019 Shaking 08/31/2017 06/30/2019 Tongue biting 08/31/2017 11/05/2018 Sjogren's syndrome 08/31/2017 0 Overview: Seeing Dr. Littlejohn Diabetic eye exam 04/28/2017 06/30/2019 Overview: Last done: 09/17/2018 Diabetic eye exam 04/28/2017 06/30/2019 Overview: Last done: 12/09/2017 Diabetic eye exam 04/16/2017 06/30/2019 Overview: Last done: 04/15/2017 Neuropathic pain 03/03/2017 06/30/2019 Current use of proton pump inhibitor 03/03/2017 06/30/2019 Adnexal mass, right 12/16/2016 06/30/19 Overview: 3.[address] in 11/2016 Diabetic eye exam 11/12/2016 06/30/2019 Overview: Last done: 12/01/2016 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 2 diabetes mellitus 11/06/2016 04/12/2020 HINTON (nonalcoholic steatohepatitis) 11/06/2016 04/17/2017 RUQ abdominal mass 11/05/2016 0 Lesion of liver 10/29/2016 11/05/2018 RUQ abdominal pain 10/29/2016 7 Left temporal headache 10/29/201606/29 Blurred vision, left eye 10/29/2016 Leg edema, right 05/16/2016 06/02/2022 Bulge of lumbar disc without myelopathy 05/15/2016 12/02/2021 Overview: L4-5 and L5-S1 History of temporal arteritis 02/05/2016 04/17/2017 History of temporal arteritis 02/05/2016 12/02/2021 History of temporal arteritis 02/05/2016 07/10/2020 Chest pain 01/05/2016 01/09/2016 Acute nonintractable headache 01/05/2016 01/09/2016 Diabetic eye exam 11/06/2015 06/30/2019 Overview: Last done: 10/10/2015 Obesity 09/27/2015 06/30/2019 Iron deficiency anemia 09/17/201503/26 Overview: Seeing Dr. Cole Bilateral renal cysts 07/06/20152018 Bilateral renal cysts 07/06/20152019 Proliferative diabetic retin opathy without macular edema associated with type 2 diabetes mellitus 06/28/2015 06/30/2019 Overview: Last done: 08/30/16 Diabetic Retinopathy Last done: 06/26/15: Diabetic Retinopathy Generalized edema 06/26/2015 06/30/2019 Fever 05/24/2015 09/24/2015 Right flank pain 05/24/2015 09/24/2015 Osteomyelitis of ankle or foot 04/30/2015 06/30/2019 Systemic lupus erythematosus 04/30/2015 06/30/2019 Abnormal weight gain 03/09/2015 016 Insulin long-term use 03/07/20152019 Amputation of great toe, right 02/28/2015 06/30/2019 Overview: Right, due to diabetic ulcer. Type 2 diabetes mellitus with proteinuria 02/21/2015 06/30/2019 MRSA infection 01/31/2015 03/07/2015 Overview: Started originally with a toe nail. Mild persistent asthma without complication 01/31/2015 07/10/2020 Overview: Sees Dr. Ramesh: Mild persistent asthma. 04/23/2012 normal spirometry. 04/2012 Methacholine Inhalation Challenge positive at level 5. 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 Uses O2 as needed day and night. Left hip pain 12/26/2011 03/07/2015 DDD (degenerative disc disease), lumbar 12/26/2011 06/30/2019 Overview: Sees Dr. 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 04/23/2012 normal spirometry. 04/2012 Methacholine Inhalation Challenge positive at level 5. Allergic rhinitis 04/17/2006 06/30/2019 Abdominal pain, right lower quadrant 02/05/2006 06/30/2019 Diarrhea 04/09/2005 06/30/2019 Internal hemorrhoids without mention of complication 04/09/2005 06/30/2019 Internal hemorrhoids 04/09/2005 019 Irritable bowel syndrome 02/12/2005 Abdominal pain, generalized 06/30/2019 Nonspecific elevation of lev els of transaminase or lactic acid dehydrogenase (LDH) 03/07/2015 On home oxygen therapy 06/29 Overview: 2 liters at [facility], Sees dr. Xiao documented as of this encounter (statuses as of 09/24/2022) [facility] History of Past illness Narrative* Problem Noted Date Diagnosed Date Resolved Date COVID-19 virus infection 08/21/202107/2021 Overview: 08/20/2021 Palpitations 10/27/2020 02/07/2021 Overview: Seeing [facility] Pneumonia due to COVID-19 virus 07/09/2020 07/10/2020 Diabetic ulcer of right midf oot associated with type 2 diabetes mellitus, with fat layer exposed 07/09/2020 02/07/2021 Family history of malignant melanoma 11/05/2018 11/06/2018 Status post transmetatarsal amputation of right foot 11/05/2018 09/25/2022 Psychophysiological insomnia 09/14/2018 06/30/2019 Pain associated with surgical procedure 09/12/2018 06/30/2019 Overview: Left below knee amputation, 08/06/2018 Insulin resistance 08/03/2018 0 History of TB (tuberculosis) 02/02/2018 07/10/2020 Osteomyelitis of foot, left, acute 12/09/2017 06/30/2019 Shaking 08/31/2017 06/30/2019 Tongue biting 08/31/2017 11/05/2018 Diabetic eye exam 04/28/2017 06/30/2019 Overview: Last done: 09/17/2018 Diabetic eye exam 04/28/2017 06/30/2019 Overview: Last done: 12/09/2017 Diabetic eye exam 04/16/2017 06/30/2019 Overview: Last done: 04/15/2017 Neuropathic pain 03/03/2017 06/30/2019 Current use of proton pump inhibitor 03/03/2017 06/30/2019 Adnexal mass, right 12/16/2016 06/30/19 20 Overview: 3.[address] in 11/2016 Diabetic eye exam 11/12/2016 06/30/2019 Overview: Last done: 12/01/2016 HINTON (nonalcoholic steatohepatitis) 11/06/2016 04/17/2017 RUQ abdominal mass 11/05/2016 0 Lesion of liver 10/29/2016 11/05/2018 RUQ abdominal pain 10/29/2016 7 Left temporal headache 10/29/201606/29 Blurred vision, left eye 10/29/2016 Bulge of lumbar disc without myelopathy 05/15/2016 12/02/2021 Overview: L4-5 and L5-S1 History of temporal arteritis 02/05/2016 04/17/2017 History of temporal arteritis 02/05/2016 07/10/2020 Chest pain 01/05/2016 01/09/2016 Acute nonintractable headache 01/05/2016 01/09/2016 Diabetic eye exam 11/06/2015 06/30/2019 Overview: Last done: 10/10/2015 Obesity 09/27/2015 06/30/2019 Iron deficiency anemia 09/17/201503/26 Overview: Seeing Dr. Cole Bilateral renal cysts 07/06/20152018 Bilateral renal cysts 07/06/20152019 Proliferative diabetic retin opathy without macular edema associated with type 2 diabetes mellitus 06/28/2015 06/30/2019 Overview: Last done: 08/30/16 Diabetic Retinopathy Last done: 06/26/15: Diabetic Retinopathy Generalized edema 06/26/2015 06/30/2019 Fever 05/24/2015 09/24/2015 Right flank pain 05/24/2015 09/24/2015 Osteomyelitis of ankle or foot 04/30/2015 06/30/2019 Systemic lupus erythematosus 04/30/2015 06/30/2019 Abnormal weight gain 03/09/2015 016 Insulin long-term use 03/07/20152019 Amputation of great toe, right 02/28/2015 09/25/2022 Overview: Right, due to diabetic ulcer. MRSA infection 01/31/2015 03/07/2015 Overview: Started originally with a toe nail. 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 04/23/2012 normal spirometry. 04/2012 Methacholine Inhalation Challenge positive at level 5. Allergic rhinitis 04/17/2006 06/30/2019 Abdominal pain, right lower quadrant 02/05/2006 06/30/2019 Diarrhea 04/09/2005 06/30/2019 Internal hemorrhoids without mention of complication 04/09/2005 06/30/2019 Internal hemorrhoids 04/09/2005 019 Irritable bowel syndrome 02/12/2005 Abdominal pain, generalized 06/30/2019 Nonspecific elevation of lev els of transaminase or lactic acid dehydrogenase (LDH) 03/07/2015 On home oxygen therapy 06/29 Overview: 2 liters at , Sees dr. Xiao documented as of this encounter (statuses as of 09/26/2022) [facility]07-06-2022 History of Past illness Narrative* Problem Noted Date Diagnosed Date Resolved Date COVID-19 virus infection 08/21/202107/2021 Overview: 08/20/2021 Palpitations 10/27/2020 02/07/2021 Overview: Seeing [facility] Pneumonia due to COVID-19 virus 07/09/2020 07/10/2020 Diabetic ulcer of right midf oot associated with type 2 diabetes mellitus, with fat layer exposed 07/09/2020 02/07/2021 Family history of malignant melanoma 11/05/2018 11/06/2018 Status post transmetatarsal amputation of right foot 11/05/2018 09/25/2022 Psychophysiological insomnia 09/14/2018 06/30/2019 Pain associated with surgical procedure 09/12/2018 06/30/2019 Overview: Left below knee amputation, 08/06/2018 Insulin resistance 08/03/2018 0 History of TB (tuberculosis) 02/02/2018 07/10/2020 Osteomyelitis of foot, left, acute 12/09/2017 06/30/2019 Shaking 08/31/2017 06/30/2019 Tongue biting 08/31/2017 11/05/2018 Diabetic eye exam 04/28/2017 06/30/2019 Overview: Last done: 09/17/2018 Diabetic eye exam 04/28/2017 06/30/2019 Overview: Last done: 12/09/2017 Diabetic eye exam 04/16/2017 06/30/2019 Overview: Last done: 04/15/2017 Neuropathic pain 03/03/2017 06/30/2019 Current use of proton pump inhibitor 03/03/2017 06/30/2019 Adnexal mass, right 12/16/2016 06/30/19 Overview: 3.[address] in 11/2016 Diabetic eye exam 11/12/2016 06/30/2019 Overview: Last done: 12/01/2016 HINTON (nonalcoholic steatohepatitis) 11/06/2016 04/17/2017 RUQ abdominal mass 11/05/2016 0 Lesion of liver 10/29/2016 11/05/2018 RUQ abdominal pain 10/29/2016 7 Left temporal headache 10/29/201606/29 Blurred vision, left eye 10/29/2016 Bulge of lumbar disc without myelopathy 05/15/2016 12/02/2021 Overview: L4-5 and L5-S1 History of temporal arteritis 02/05/2016 04/17/2017 History of temporal arteritis 02/05/2016 07/10/2020 Chest pain 01/05/2016 01/09/2016 Acute nonintractable headache 01/05/2016 01/09/2016 Diabetic eye exam 11/06/2015 06/30/2019 Overview: Last done: 10/10/2015 Obesity 09/27/2015 06/30/2019 Iron deficiency anemia 09/17/201503/26 Overview: Seeing Dr. Cole Bilateral renal cysts 07/06/20152018 Bilateral renal cysts 07/06/20152019 Proliferative diabetic retin opathy without macular edema associated with type 2 diabetes mellitus 06/28/2015 06/30/2019 Overview: Last done: 08/30/16 Diabetic Retinopathy Last done: 06/26/15: Diabetic Retinopathy Generalized edema 06/26/2015 06/30/2019 Fever 05/24/2015 09/24/2015 Right flank pain 05/24/2015 09/24/2015 Osteomyelitis of ankle or foot 04/30/2015 06/30/2019 Systemic lupus erythematosus 04/30/2015 06/30/2019 Abnormal weight gain 03/09/2015 016 Insulin long-term use 03/07/20152019 Amputation of great toe, right 02/28/2015 09/25/2022 Overview: Right, due to diabetic ulcer. MRSA infection 01/31/2015 03/07/2015 Overview: Started originally with a toe nail. 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 04/23/2012 normal spirometry. 04/2012 Methacholine Inhalation Challenge positive at level 5. Allergic rhinitis 04/17/2006 06/30/2019 Abdominal pain, right lower quadrant 02/05/2006 06/30/2019 Diarrhea 04/09/2005 06/30/2019 Internal hemorrhoids without mention of complication 04/09/2005 06/30/2019 Internal hemorrhoids 04/09/2005 019 Irritable bowel syndrome 02/12/2005 Abdominal pain, generalized 06/30/2019 Nonspecific elevation of lev els of transaminase or lactic acid dehydrogenase (LDH) 03/07/2015 On home oxygen therapy 06/29 Overview: 2 liters at , Sees dr. Xiao documented as of this encounter (statuses as of 09/27/2022) [facility]07-06-2022 History of Past illness Narrative* Problem Noted Date Diagnosed Date Resolved Date COVID-19 virus infection 08/21/202107/2021 Overview: 08/20/2021 Palpitations 10/27/2020 02/07/2021 Overview: Seeing [facility] Pneumonia due to COVID-19 virus 07/09/2020 07/10/2020 Diabetic ulcer of right midf oot associated with type 2 diabetes mellitus, with fat layer exposed 07/09/2020 02/07/2021 Family history of malignant melanoma 11/05/2018 11/06/2018 Status post transmetatarsal amputation of right foot 11/05/2018 09/25/2022 Psychophysiological insomnia 09/14/2018 06/30/2019 Pain associated with surgical procedure 09/12/2018 06/30/2019 Overview: Left below knee amputation, 08/06/2018 Insulin resistance 08/03/2018 0 History of TB (tuberculosis) 02/02/2018 07/10/2020 Osteomyelitis of foot, left, acute 12/09/2017 06/30/2019 Shaking 08/31/2017 06/30/2019 Tongue biting 08/31/2017 11/05/2018 Diabetic eye exam 04/28/2017 06/30/2019 Overview: Last done: 09/17/2018 Diabetic eye exam 04/28/2017 06/30/2019 Overview: Last done: 12/09/2017 Diabetic eye exam 04/16/2017 06/30/2019 Overview: Last done: 04/15/2017 Neuropathic pain 03/03/2017 06/30/2019 Current use of proton pump inhibitor 03/03/2017 06/30/2019 Adnexal mass, right 12/16/2016 06/30/19 Overview: 3.[address] in 11/2016 Diabetic eye exam 11/12/2016 06/30/2019 Overview: Last done: 12/01/2016 HINTON (nonalcoholic steatohepatitis) 11/06/2016 04/17/2017 RUQ abdominal mass 11/05/2016 0 Lesion of liver 10/29/2016 11/05/2018 RUQ abdominal pain 10/29/2016 7 Left temporal headache 10/29/201606/29 Blurred vision, left eye 10/29/2016 Bulge of lumbar disc without myelopathy 05/15/2016 12/02/2021 Overview: L4-5 and L5-S1 History of temporal arteritis 02/05/2016 04/17/2017 History of temporal arteritis 02/05/2016 07/10/2020 Chest pain 01/05/2016 01/09/2016 Acute nonintractable headache 01/05/2016 01/09/2016 Diabetic eye exam 11/06/2015 06/30/2019 Overview: Last done: 10/10/2015 Obesity 09/27/2015 06/30/2019 Iron deficiency anemia 09/17/201503/26 Overview: Seeing Dr. Cole Bilateral renal cysts 07/06/20152018 Bilateral renal cysts 07/06/20152019 Proliferative diabetic retin opathy without macular edema associated with type 2 diabetes mellitus 06/28/2015 06/30/2019 Overview: Last done: 08/30/16 Diabetic Retinopathy Last done: 06/26/15: Diabetic Retinopathy Generalized edema 06/26/2015 06/30/2019 Fever 05/24/2015 09/24/2015 Right flank pain 05/24/2015 09/24/2015 Osteomyelitis of ankle or foot 04/30/2015 06/30/2019 Systemic lupus erythematosus 04/30/2015 06/30/2019 Abnormal weight gain 03/09/2015 016 Insulin long-term use 03/07/20152019 Amputation of great toe, right 02/28/2015 09/25/2022 Overview: Right, due to diabetic ulcer. MRSA infection 01/31/2015 03/07/2015 Overview: Started originally with a toe nail. 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 04/23/2012 normal spirometry. 04/2012 Methacholine Inhalation Challenge positive at level 5. Allergic rhinitis 04/17/2006 06/30/2019 Abdominal pain, right lower quadrant 02/05/2006 06/30/2019 Diarrhea 04/09/2005 06/30/2019 Internal hemorrhoids without mention of complication 04/09/2005 06/30/2019 Internal hemorrhoids 04/09/2005 019 Irritable bowel syndrome 02/12/2005 Abdominal pain, generalized 06/30/2019 Nonspecific elevation of lev els of transaminase or lactic acid dehydrogenase (LDH) 03/07/2015 On home oxygen therapy 06/29 Overview: 2 liters at , Sees dr. Xiao documented as of this encounter (statuses as of 10/04/2022) [facility]07-06-2022 History of Past illness Narrative* Problem Noted Date Diagnosed Date Resolved Date COVID-19 virus infection 08/21/202107/2021 Overview: 08/20/2021 Palpitations 10/27/2020 02/07/2021 Overview: Seeing [facility] Pneumonia due to COVID-19 virus 07/09/2020 07/10/2020 Diabetic ulcer of right midf oot associated with type 2 diabetes mellitus, with fat layer exposed 07/09/2020 02/07/2021 Family history of malignant melanoma 11/05/2018 11/06/2018 Status post transmetatarsal amputation of right foot 11/05/2018 09/25/2022 Psychophysiological insomnia 09/14/2018 06/30/2019 Pain associated with surgical procedure 09/12/2018 06/30/2019 Overview: Left below knee amputation, 08/06/2018 Insulin resistance 08/03/2018 0 History of TB (tuberculosis) 02/02/2018 07/10/2020 Osteomyelitis of foot, left, acute 12/09/2017 06/30/2019 Shaking 08/31/2017 06/30/2019 Tongue biting 08/31/2017 11/05/2018 Diabetic eye exam 04/28/2017 06/30/2019 Overview: Last done: 09/17/2018 Diabetic eye exam 04/28/2017 06/30/2019 Overview: Last done: 12/09/2017 Diabetic eye exam 04/16/2017 06/30/2019 Overview: Last done: 04/15/2017 Neuropathic pain 03/03/2017 06/30/2019 Current use of proton pump inhibitor 03/03/2017 06/30/2019 Adnexal mass, right 12/16/2016 06/30/19 20 Overview: 3.[address] in 11/2016 Diabetic eye exam 11/12/2016 06/30/2019 Overview: Last done: 12/01/2016 HINTON (nonalcoholic steatohepatitis) 11/06/2016 04/17/2017 RUQ abdominal mass 11/05/2016 0 Lesion of liver 10/29/2016 11/05/2018 RUQ abdominal pain 10/29/2016 7 Left temporal headache 10/29/201606/29 Blurred vision, left eye 10/29/2016 Bulge of lumbar disc without myelopathy 05/15/2016 12/02/2021 Overview: L4-5 and L5-S1 History of temporal arteritis 02/05/2016 04/17/2017 History of temporal arteritis 02/05/2016 07/10/2020 Chest pain 01/05/2016 01/09/2016 Acute nonintractable headache 01/05/2016 01/09/2016 Diabetic eye exam 11/06/2015 06/30/2019 Overview: Last done: 10/10/2015 Obesity 09/27/2015 06/30/2019 Iron deficiency anemia 09/17/201503/26 Overview: Seeing Dr. Cole Bilateral renal cysts 07/06/20152018 Bilateral renal cysts 07/06/20152019 Proliferative diabetic retin opathy without macular edema associated with type 2 diabetes mellitus 06/28/2015 06/30/2019 Overview: Last done: 08/30/16 Diabetic Retinopathy Last done: 06/26/15: Diabetic Retinopathy Generalized edema 06/26/2015 06/30/2019 Fever 05/24/2015 09/24/2015 Right flank pain 05/24/2015 09/24/2015 Osteomyelitis of ankle or foot 04/30/2015 06/30/2019 Systemic lupus erythematosus 04/30/2015 06/30/2019 Abnormal weight gain 03/09/2015 016 Insulin long-term use 03/07/20152019 Amputation of great toe, right 02/28/2015 09/25/2022 Overview: Right, due to diabetic ulcer. MRSA infection 01/31/2015 03/07/2015 Overview: Started originally with a toe nail. 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 04/23/2012 normal spirometry. 04/2012 Methacholine Inhalation Challenge positive at level 5. Allergic rhinitis 04/17/2006 06/30/2019 Abdominal pain, right lower quadrant 02/05/2006 06/30/2019 Diarrhea 04/09/2005 06/30/2019 Internal hemorrhoids without mention of complication 04/09/2005 06/30/2019 Internal hemorrhoids 04/09/2005 019 Irritable bowel syndrome 02/12/2005 Abdominal pain, generalized 06/30/2019 Nonspecific elevation of lev els of transaminase or lactic acid dehydrogenase (LDH) 03/07/2015 On home oxygen therapy 06/29 Overview: 2 liters at , Sees dr. Xiao documented as of this encounter (statuses as of 10/07/2022) [facility]07-[facility]22 History of Past illness Narrative* Problem Noted Date Diagnosed Date Resolved Date COVID-19 virus infection 08/21/202107/2021 Overview: 08/20/2021 Palpitations 10/27/2020 02/07/2021 Overview: Seeing [facility] Pneumonia due to COVID-19 virus 07/09/2020 07/10/2020 Diabetic ulcer of right midf oot associated with type 2 diabetes mellitus, with fat layer exposed 07/09/2020 02/07/2021 Family history of malignant melanoma 11/05/2018 11/06/2018 Status post transmetatarsal amputation of right foot 11/05/2018 09/25/2022 Psychophysiological insomnia 09/14/2018 06/30/2019 Pain associated with surgical procedure 09/12/2018 06/30/2019 Overview: Left below knee amputation, 08/06/2018 Insulin resistance 08/03/2018 0 History of TB (tuberculosis) 02/02/2018 07/10/2020 Osteomyelitis of foot, left, acute 12/09/2017 06/30/2019 Shaking 08/31/2017 06/30/2019 Tongue biting 08/31/2017 11/05/2018 Diabetic eye exam 04/28/2017 06/30/2019 Overview: Last done: 09/17/2018 Diabetic eye exam 04/28/2017 06/30/2019 Overview: Last done: 12/09/2017 Diabetic eye exam 04/16/2017 06/30/2019 Overview: Last done: 04/15/2017 Neuropathic pain 03/03/2017 06/30/2019 Current use of proton pump inhibitor 03/03/2017 06/30/2019 Adnexal mass, right 12/16/2016 06/30/19 Overview: 3.[address] in 11/2016 Diabetic eye exam 11/12/2016 06/30/2019 Overview: Last done: 12/01/2016 HINTON (nonalcoholic steatohepatitis) 11/06/2016 04/17/2017 RUQ abdominal mass 11/05/2016 0 Lesion of liver 10/29/2016 11/05/2018 RUQ abdominal pain 10/29/2016 7 Left temporal headache 10/29/201606/29 Blurred vision, left eye 10/29/2016 Bulge of lumbar disc without myelopathy 05/15/2016 12/02/2021 Overview: L4-5 and L5-S1 History of temporal arteritis 02/05/2016 04/17/2017 History of temporal arteritis 02/05/2016 07/10/2020 Chest pain 01/05/2016 01/09/2016 Acute nonintractable headache 01/05/2016 01/09/2016 Diabetic eye exam 11/06/2015 06/30/2019 Overview: Last done: 10/10/2015 Obesity 09/27/2015 06/30/2019 Iron deficiency anemia 09/17/201503/26 Overview: Seeing Dr. Cole Bilateral renal cysts 07/06/20152018 Bilateral renal cysts 07/06/20152019 Proliferative diabetic retin opathy without macular edema associated with type 2 diabetes mellitus 06/28/2015 06/30/2019 Overview: Last done: 08/30/16 Diabetic Retinopathy Last done: 06/26/15: Diabetic Retinopathy Generalized edema 06/26/2015 06/30/2019 Fever 05/24/2015 09/24/2015 Right flank pain 05/24/2015 09/24/2015 Osteomyelitis of ankle or foot 04/30/2015 06/30/2019 Systemic lupus erythematosus 04/30/2015 06/30/2019 Abnormal weight gain 03/09/2015 016 Insulin long-term use 03/07/20152019 Amputation of great toe, right 02/28/2015 09/25/2022 Overview: Right, due to diabetic ulcer. MRSA infection 01/31/2015 03/07/2015 Overview: Started originally with a toe nail. 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 04/23/2012 normal spirometry. 04/2012 Methacholine Inhalation Challenge positive at level 5. Allergic rhinitis 04/17/2006 06/30/2019 Abdominal pain, right lower quadrant 02/05/2006 06/30/2019 Diarrhea 04/09/2005 06/30/2019 Internal hemorrhoids without mention of complication 04/09/2005 06/30/2019 Internal hemorrhoids 04/09/2005 019 Irritable bowel syndrome 02/12/2005 Abdominal pain, generalized 06/30/2019 Nonspecific elevation of lev els of transaminase or lactic acid dehydrogenase (LDH) 03/07/2015 On home oxygen therapy 06/29 Overview: 2 liters at , Sees dr. Xiao documented as of this encounter (statuses as of 10/22/2022) [facility] History of Past illness Narrative* Problem Noted Date Diagnosed Date Resolved Date COVID-19 virus infection 08/21/202107/2021 Overview: 08/20/2021 Palpitations 10/27/2020 02/07/2021 Overview: Seeing [facility] Pneumonia due to COVID-19 virus 07/09/2020 07/10/2020 Diabetic ulcer of right midf oot associated with type 2 diabetes mellitus, with fat layer exposed 07/09/2020 02/07/2021 Family history of malignant melanoma 11/05/2018 11/06/2018 Status post transmetatarsal amputation of right foot 11/05/2018 09/25/2022 Psychophysiological insomnia 09/14/2018 06/30/2019 Pain associated with surgical procedure 09/12/2018 06/30/2019 Overview: Left below knee amputation, 08/06/2018 Insulin resistance 08/03/2018 0 History of TB (tuberculosis) 02/02/2018 07/10/2020 Osteomyelitis of foot, left, acute 12/09/2017 06/30/2019 Shaking 08/31/2017 06/30/2019 Tongue biting 08/31/2017 11/05/2018 Diabetic eye exam 04/28/2017 06/30/2019 Overview: Last done: 09/17/2018 Diabetic eye exam 04/28/2017 06/30/2019 Overview: Last done: 12/09/2017 Diabetic eye exam 04/16/2017 06/30/2019 Overview: Last done: 04/15/2017 Neuropathic pain 03/03/2017 06/30/2019 Current use of proton pump inhibitor 03/03/2017 06/30/2019 Adnexal mass, right 12/16/2016 06/30/19 20 Overview: 3.[address] in 11/2016 Diabetic eye exam 11/12/2016 06/30/2019 Overview: Last done: 12/01/2016 HINTON (nonalcoholic steatohepatitis) 11/06/2016 04/17/2017 RUQ abdominal mass 11/05/2016 0 Lesion of liver 10/29/2016 11/05/2018 RUQ abdominal pain 10/29/2016 7 Left temporal headache 10/29/201606/29 Blurred vision, left eye 10/29/2016 Bulge of lumbar disc without myelopathy 05/15/2016 12/02/2021 Overview: L4-5 and L5-S1 History of temporal arteritis 02/05/2016 04/17/2017 History of temporal arteritis 02/05/2016 07/10/2020 Chest pain 01/05/2016 01/09/2016 Acute nonintractable headache 01/05/2016 01/09/2016 Diabetic eye exam 11/06/2015 06/30/2019 Overview: Last done: 10/10/2015 Obesity 09/27/2015 06/30/2019 Iron deficiency anemia 09/17/201503/26 Overview: Seeing Dr. Cole Bilateral renal cysts 07/06/20152018 Bilateral renal cysts 07/06/20152019 Proliferative diabetic retin opathy without macular edema associated with type 2 diabetes mellitus 06/28/2015 06/30/2019 Overview: Last done: 08/30/16 Diabetic Retinopathy Last done: 06/26/15: Diabetic Retinopathy Generalized edema 06/26/2015 06/30/2019 Fever 05/24/2015 09/24/2015 Right flank pain 05/24/2015 09/24/2015 Osteomyelitis of ankle or foot 04/30/2015 06/30/2019 Systemic lupus erythematosus 04/30/2015 06/30/2019 Abnormal weight gain 03/09/2015 016 Insulin long-term use 03/07/20152019 Amputation of great toe, right 02/28/2015 09/25/2022 Overview: Right, due to diabetic ulcer. MRSA infection 01/31/2015 03/07/2015 Overview: Started originally with a toe nail. 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 04/23/2012 normal spirometry. 04/2012 Methacholine Inhalation Challenge positive at level 5. Allergic rhinitis 04/17/2006 06/30/2019 Abdominal pain, right lower quadrant 02/05/2006 06/30/2019 Diarrhea 04/09/2005 06/30/2019 Internal hemorrhoids without mention of complication 04/09/2005 06/30/2019 Internal hemorrhoids 04/09/2005 019 Irritable bowel syndrome 02/12/2005 Abdominal pain, generalized 06/30/2019 Nonspecific elevation of lev els of transaminase or lactic acid dehydrogenase (LDH) 03/07/2015 On home oxygen therapy 06/29 Overview: 2 liters at , Sees dr. Xiao documented as of this encounter (statuses as of 10/23/2022) [facility]07-06-2022 History of Past illness Narrative* Problem Noted Date Diagnosed Date Resolved Date COVID-19 virus infection 08/21/202107/2021 Overview: 08/20/2021 Palpitations 10/27/2020 02/07/2021 Overview: Seeing [facility] Pneumonia due to COVID-19 virus 07/09/2020 07/10/2020 Diabetic ulcer of right midf oot associated with type 2 diabetes mellitus, with fat layer exposed 07/09/2020 02/07/2021 Family history of malignant melanoma 11/05/2018 11/06/2018 Status post transmetatarsal amputation of right foot 11/05/2018 09/25/2022 Psychophysiological insomnia 09/14/2018 06/30/2019 Pain associated with surgical procedure 09/12/2018 06/30/2019 Overview: Left below knee amputation, 08/06/2018 Insulin resistance 08/03/2018 0 History of TB (tuberculosis) 02/02/2018 07/10/2020 Osteomyelitis of foot, left, acute 12/09/2017 06/30/2019 Shaking 08/31/2017 06/30/2019 Tongue biting 08/31/2017 11/05/2018 Diabetic eye exam 04/28/2017 06/30/2019 Overview: Last done: 09/17/2018 Diabetic eye exam 04/28/2017 06/30/2019 Overview: Last done: 12/09/2017 Diabetic eye exam 04/16/2017 06/30/2019 Overview: Last done: 04/15/2017 Neuropathic pain 03/03/2017 06/30/2019 Current use of proton pump inhibitor 03/03/2017 06/30/2019 Adnexal mass, right 12/16/2016 06/30/19 Overview: 3.[address] in 11/2016 Diabetic eye exam 11/12/2016 06/30/2019 Overview: Last done: 12/01/2016 HINTON (nonalcoholic steatohepatitis) 11/06/2016 04/17/2017 RUQ abdominal mass 11/05/2016 0 Lesion of liver 10/29/2016 11/05/2018 RUQ abdominal pain 10/29/2016 7 Left temporal headache 10/29/201606/29 Blurred vision, left eye 10/29/2016 Bulge of lumbar disc without myelopathy 05/15/2016 12/02/2021 Overview: L4-5 and L5-S1 History of temporal arteritis 02/05/2016 04/17/2017 History of temporal arteritis 02/05/2016 07/10/2020 Chest pain 01/05/2016 01/09/2016 Acute nonintractable headache 01/05/2016 01/09/2016 Diabetic eye exam 11/06/2015 06/30/2019 Overview: Last done: 10/10/2015 Obesity 09/27/2015 06/30/2019 Iron deficiency anemia 09/17/201503/26 Overview: Seeing Dr. Cole Bilateral renal cysts 07/06/20152018 Bilateral renal cysts 07/06/20152019 Proliferative diabetic retin opathy without macular edema associated with type 2 diabetes mellitus 06/28/2015 06/30/2019 Overview: Last done: 08/30/16 Diabetic Retinopathy Last done: 06/26/15: Diabetic Retinopathy Generalized edema 06/26/2015 06/30/2019 Fever 05/24/2015 09/24/2015 Right flank pain 05/24/2015 09/24/2015 Osteomyelitis of ankle or foot 04/30/2015 06/30/2019 Systemic lupus erythematosus 04/30/2015 06/30/2019 Abnormal weight gain 03/09/2015 016 Insulin long-term use 03/07/20152019 Amputation of great toe, right 02/28/2015 09/25/2022 Overview: Right, due to diabetic ulcer. MRSA infection 01/31/2015 03/07/2015 Overview: Started originally with a toe nail. 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 04/23/2012 normal spirometry. 04/2012 Methacholine Inhalation Challenge positive at level 5. Allergic rhinitis 04/17/2006 06/30/2019 Abdominal pain, right lower quadrant 02/05/2006 06/30/2019 Diarrhea 04/09/2005 06/30/2019 Internal hemorrhoids without mention of complication 04/09/2005 06/30/2019 Internal hemorrhoids 04/09/2005 019 Irritable bowel syndrome 02/12/2005 Abdominal pain, generalized 06/30/2019 Nonspecific elevation of lev els of transaminase or lactic acid dehydrogenase (LDH) 03/07/2015 On home oxygen therapy 06/29 Overview: 2 liters at , Sees dr. Xiao documented as of this encounter (statuses as of 10/29/2022) [facility]07-06-2022 History of Past illness Narrative* Problem Noted Date Diagnosed Date Resolved Date COVID-19 virus infection 08/21/202107/2021 Overview: 08/20/2021 Palpitations 10/27/2020 02/07/2021 Overview: Seeing [facility] Pneumonia due to COVID-19 virus 07/09/2020 07/10/2020 Diabetic ulcer of right midf oot associated with type 2 diabetes mellitus, with fat layer exposed 07/09/2020 02/07/2021 Family history of malignant melanoma 11/05/2018 11/06/2018 Status post transmetatarsal amputation of right foot 11/05/2018 09/25/2022 Psychophysiological insomnia 09/14/2018 06/30/2019 Pain associated with surgical procedure 09/12/2018 06/30/2019 Overview: Left below knee amputation, 08/06/2018 Insulin resistance 08/03/2018 0 History of TB (tuberculosis) 02/02/2018 07/10/2020 Osteomyelitis of foot, left, acute 12/09/2017 06/30/2019 Shaking 08/31/2017 06/30/2019 Tongue biting 08/31/2017 11/05/2018 Diabetic eye exam 04/28/2017 06/30/2019 Overview: Last done: 09/17/2018 Diabetic eye exam 04/28/2017 06/30/2019 Overview: Last done: 12/09/2017 Diabetic eye exam 04/16/2017 06/30/2019 Overview: Last done: 04/15/2017 Neuropathic pain 03/03/2017 06/30/2019 Current use of proton pump inhibitor 03/03/2017 06/30/2019 Adnexal mass, right 12/16/2016 06/30/19 Overview: 3.[address] in 11/2016 Diabetic eye exam 11/12/2016 06/30/2019 Overview: Last done: 12/01/2016 HINTON (nonalcoholic steatohepatitis) 11/06/2016 04/17/2017 RUQ abdominal mass 11/05/2016 0 Lesion of liver 10/29/2016 11/05/2018 RUQ abdominal pain 10/29/2016 7 Left temporal headache 10/29/201606/29 Blurred vision, left eye 10/29/2016 Bulge of lumbar disc without myelopathy 05/15/2016 12/02/2021 Overview: L4-5 and L5-S1 History of temporal arteritis 02/05/2016 04/17/2017 History of temporal arteritis 02/05/2016 07/10/2020 Chest pain 01/05/2016 01/09/2016 Acute nonintractable headache 01/05/2016 01/09/2016 Diabetic eye exam 11/06/2015 06/30/2019 Overview: Last done: 10/10/2015 Obesity 09/27/2015 06/30/2019 Iron deficiency anemia 09/17/201503/26 Overview: Seeing Dr. Cole Bilateral renal cysts 07/06/20152018 Bilateral renal cysts 07/06/20152019 Proliferative diabetic retin opathy without macular edema associated with type 2 diabetes mellitus 06/28/2015 06/30/2019 Overview: Last done: 08/30/16 Diabetic Retinopathy Last done: 06/26/15: Diabetic Retinopathy Generalized edema 06/26/2015 06/30/2019 Fever 05/24/2015 09/24/2015 Right flank pain 05/24/2015 09/24/2015 Osteomyelitis of ankle or foot 04/30/2015 06/30/2019 Systemic lupus erythematosus 04/30/2015 06/30/2019 Abnormal weight gain 03/09/2015 016 Insulin long-term use 03/07/20152019 Amputation of great toe, right 02/28/2015 09/25/2022 Overview: Right, due to diabetic ulcer. MRSA infection 01/31/2015 03/07/2015 Overview: Started originally with a toe nail. 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 04/23/2012 normal spirometry. 04/2012 Methacholine Inhalation Challenge positive at level 5. Allergic rhinitis 04/17/2006 06/30/2019 Abdominal pain, right lower quadrant 02/05/2006 06/30/2019 Diarrhea 04/09/2005 06/30/2019 Internal hemorrhoids without mention of complication 04/09/2005 06/30/2019 Internal hemorrhoids 04/09/2005 019 Irritable bowel syndrome 02/12/2005 Abdominal pain, generalized 06/30/2019 Nonspecific elevation of lev els of transaminase or lactic acid dehydrogenase (LDH) 03/07/2015 On home oxygen therapy 06/29 Overview: 2 liters at , Sees dr. Xiao documented as of this encounter (statuses as of 10/31/2022) [facility]07-06-2022 History of Past illness Narrative* Problem Noted Date Diagnosed Date Resolved Date COVID-19 virus infection 08/21/202107/2021 Overview: 08/20/2021 Palpitations 10/27/2020 02/07/2021 Overview: Seeing [facility] Pneumonia due to COVID-19 virus 07/09/2020 07/10/2020 Diabetic ulcer of right midf oot associated with type 2 diabetes mellitus, with fat layer exposed 07/09/2020 02/07/2021 Family history of malignant melanoma 11/05/2018 11/06/2018 Status post transmetatarsal amputation of right foot 11/05/2018 09/25/2022 Psychophysiological insomnia 09/14/2018 06/30/2019 Pain associated with surgical procedure 09/12/2018 06/30/2019 Overview: Left below knee amputation, 08/06/2018 Insulin resistance 08/03/2018 0 History of TB (tuberculosis) 02/02/2018 07/10/2020 Osteomyelitis of foot, left, acute 12/09/2017 06/30/2019 Shaking 08/31/2017 06/30/2019 Tongue biting 08/31/2017 11/05/2018 Diabetic eye exam 04/28/2017 06/30/2019 Overview: Last done: 09/17/2018 Diabetic eye exam 04/28/2017 06/30/2019 Overview: Last done: 12/09/2017 Diabetic eye exam 04/16/2017 06/30/2019 Overview: Last done: 04/15/2017 Neuropathic pain 03/03/2017 06/30/2019 Current use of proton pump inhibitor 03/03/2017 06/30/2019 Adnexal mass, right 12/16/2016 06/30/19 20 Overview: 3.[address] in 11/2016 Diabetic eye exam 11/12/2016 06/30/2019 Overview: Last done: 12/01/2016 HINTON (nonalcoholic steatohepatitis) 11/06/2016 04/17/2017 RUQ abdominal mass 11/05/2016 0 Lesion of liver 10/29/2016 11/05/2018 RUQ abdominal pain 10/29/2016 7 Left temporal headache 10/29/201606/29 Blurred vision, left eye 10/29/2016 Bulge of lumbar disc without myelopathy 05/15/2016 12/02/2021 Overview: L4-5 and L5-S1 History of temporal arteritis 02/05/2016 04/17/2017 History of temporal arteritis 02/05/2016 07/10/2020 Chest pain 01/05/2016 01/09/2016 Acute nonintractable headache 01/05/2016 01/09/2016 Diabetic eye exam 11/06/2015 06/30/2019 Overview: Last done: 10/10/2015 Obesity 09/27/2015 06/30/2019 Iron deficiency anemia 09/17/201503/26 Overview: Seeing Dr. Cole Bilateral renal cysts 07/06/20152018 Bilateral renal cysts 07/06/20152019 Proliferative diabetic retin opathy without macular edema associated with type 2 diabetes mellitus 06/28/2015 06/30/2019 Overview: Last done: 08/30/16 Diabetic Retinopathy Last done: 06/26/15: Diabetic Retinopathy Generalized edema 06/26/2015 06/30/2019 Fever 05/24/2015 09/24/2015 Right flank pain 05/24/2015 09/24/2015 Osteomyelitis of ankle or foot 04/30/2015 06/30/2019 Systemic lupus erythematosus 04/30/2015 06/30/2019 Abnormal weight gain 03/09/2015 016 Insulin long-term use 03/07/20152019 Amputation of great toe, right 02/28/2015 09/25/2022 Overview: Right, due to diabetic ulcer. MRSA infection 01/31/2015 03/07/2015 Overview: Started originally with a toe nail. 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 04/23/2012 normal spirometry. 04/2012 Methacholine Inhalation Challenge positive at level 5. Allergic rhinitis 04/17/2006 06/30/2019 Abdominal pain, right lower quadrant 02/05/2006 06/30/2019 Diarrhea 04/09/2005 06/30/2019 Internal hemorrhoids without mention of complication 04/09/2005 06/30/2019 Internal hemorrhoids 04/09/2005 019 Irritable bowel syndrome 02/12/2005 Abdominal pain, generalized 06/30/2019 Nonspecific elevation of lev els of transaminase or lactic acid dehydrogenase (LDH) 03/07/2015 On home oxygen therapy 06/29 Overview: 2 liters at , Sees dr. Xiao documented as of this encounter (statuses as of 11/05/2022) [facility]22 History of Past illness Narrative* Problem Noted Date Diagnosed Date Resolved Date COVID-19 virus infection 08/21/202107/2021 Overview: 08/20/2021 Palpitations 10/27/2020 02/07/2021 Overview: Seeing [facility] Pneumonia due to COVID-19 virus 07/09/2020 07/10/2020 Diabetic ulcer of right midf oot associated with type 2 diabetes mellitus, with fat layer exposed 07/09/2020 02/07/2021 History of 2019 novel martinez virus disease (COVID-19) 02/21/2020 12/03/2022 Overview: 02/08/2020, 08/20/2021 Family history of malignant melanoma 11/05/2018 11/06/2018 Status post transmetatarsal amputation of right foot 11/05/2018 09/25/2022 Family history of malignant melanoma 11/05/2018 12/03/2022 Psychophysiological insomnia 09/14/2018 06/30/2019 Pain associated with surgical procedure 09/12/2018 06/30/2019 Overview: Left below knee amputation, 08/06/2018 Insulin resistance 08/03/2018 0 History of TB (tuberculosis) 02/02/2018 12/03/2022 Overview: Treated 06/2014 History of TB (tuberculosis) 02/02/2018 07/10/2020 Osteomyelitis of foot, left, acute 12/09/2017 06/30/2019 Shaking 08/31/2017 06/30/2019 Tongue biting 08/31/2017 11/05/2018 Diabetic eye exam 04/28/2017 06/30/2019 Overview: Last done: 09/17/2018 Diabetic eye exam 04/28/2017 06/30/2019 Overview: Last done: 12/09/2017 Diabetic eye exam 04/16/2017 06/30/2019 Overview: Last done: 04/15/2017 Neuropathic pain 03/03/2017 06/30/2019 Current use of proton pump inhibitor 03/03/2017 06/30/2019 Adnexal mass, right 12/16/2016 06/30/19 Overview: 3.[address] in 11/2016 Diabetic eye exam 11/12/2016 06/30/2019 Overview: Last done: 12/01/2016 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 2 diabetes mellitus (HCC) 11/06/2016 12/03/2022 HINTON (nonalcoholic steatohepatitis) 11/06/2016 04/17/2017 HINTON (nonalcoholic steatohepatitis) 11/06/2016 12/03/2022 RUQ abdominal mass 11/05/2016 0 Lesion of liver 10/29/2016 11/05/2018 RUQ abdominal pain 10/29/2016 7 Left temporal headache 10/29/201606/29 Blurred vision, left eye 10/29/2016 Leg edema, right 05/16/2016 12/03/2022 Bulge of lumbar disc without myelopathy 05/15/2016 12/02/2021 Overview: L4-5 and L5-S1 History of temporal arteritis 02/05/2016 04/17/2017 History of temporal arteritis 02/05/2016 12/03/2022 History of temporal arteritis 02/05/2016 07/10/2020 Chest pain 01/05/2016 01/09/2016 Acute nonintractable headache 01/05/2016 01/09/2016 Diabetic eye exam 11/06/2015 06/30/2019 Overview: Last done: 10/10/2015 Obesity 09/27/2015 06/30/2019 Iron deficiency anemia 09/17/201503/26 Overview: Seeing Dr. Cole Chronic lymphadenitis 09/17/20152022 Overview: Seeing Dr. Anibal Fry at the [facility] [place]: Had lymph node biopsy a year ago that showed reactive tissue. Bilateral renal cysts 07/06/20152018 Bilateral renal cysts 07/06/20152019 Proliferative diabetic retin opathy without macular edema associated with type 2 diabetes mellitus 06/28/2015 06/30/2019 Overview: Last done: 08/30/16 Diabetic Retinopathy Last done: 06/26/15: Diabetic Retinopathy Generalized edema 06/26/2015 06/30/2019 Fever 05/24/2015 09/24/2015 Right flank pain 05/24/2015 09/24/2015 Osteomyelitis of ankle or foot 04/30/2015 06/30/2019 Systemic lupus erythematosus 04/30/2015 06/30/2019 Abnormal weight gain 03/09/2015 016 Insulin long-term use 03/07/20152019 Amputation of great toe, right 02/28/2015 09/25/2022 Overview: Right, due to diabetic ulcer. MRSA infection 01/31/2015 03/07/2015 Overview: Started originally with a toe nail. 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 Uses O2 as needed day and night per Dr. 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 04/23/2012 normal spirometry. 04/2012 Methacholine Inhalation Challenge positive at level 5. Allergic rhinitis 04/17/2006 06/30/2019 Abdominal pain, right lower quadrant 02/05/2006 06/30/2019 Diarrhea 04/09/2005 06/30/2019 Internal hemorrhoids without mention of complication 04/09/2005 06/30/2019 Internal hemorrhoids 04/09/2005 019 Irritable bowel syndrome 02/12/2005 Abdominal pain, generalized 06/30/2019 Nonspecific elevation of lev els of transaminase or lactic acid dehydrogenase (LDH) 03/07/2015 On home oxygen therapy 06/29 Overview: 2 liters at [facility], Sees dr. Xiao documented as of this encounter (statuses as of 12/03/2022) [facility] History of Past illness Narrative* Problem Noted Date Diagnosed Date Resolved Date COVID-19 virus infection 08/21/202107/2021 Overview: 08/20/2021 Palpitations 10/27/2020 02/07/2021 Overview: Seeing [facility] Pneumonia due to COVID-19 virus 07/09/2020 07/10/2020 Diabetic ulcer of right midf oot associated with type 2 diabetes mellitus, with fat layer exposed 07/09/2020 02/07/2021 History of 2019 novel martinez virus disease (COVID-19) 02/21/2020 12/03/2022 Overview: 02/08/2020, 08/20/2021 Family history of malignant melanoma 11/05/2018 11/06/2018 Status post transmetatarsal amputation of right foot 11/05/2018 09/25/2022 Family history of malignant melanoma 11/05/2018 12/03/2022 Psychophysiological insomnia 09/14/2018 06/30/2019 Pain associated with surgical procedure 09/12/2018 06/30/2019 Overview: Left below knee amputation, 08/06/2018 Insulin resistance 08/03/2018 0 History of TB (tuberculosis) 02/02/2018 12/03/2022 Overview: Treated 06/2014 History of TB (tuberculosis) 02/02/2018 07/10/2020 Osteomyelitis of foot, left, acute 12/09/2017 06/30/2019 Shaking 08/31/2017 06/30/2019 Tongue biting 08/31/2017 11/05/2018 Diabetic eye exam 04/28/2017 06/30/2019 Overview: Last done: 09/17/2018 Diabetic eye exam 04/28/2017 06/30/2019 Overview: Last done: 12/09/2017 Diabetic eye exam 04/16/2017 06/30/2019 Overview: Last done: 04/15/2017 Neuropathic pain 03/03/2017 06/30/2019 Current use of proton pump inhibitor 03/03/2017 06/30/2019 Adnexal mass, right 12/16/2016 06/30/19 20 Overview: 3.[address] in 11/2016 Diabetic eye exam 11/12/2016 06/30/2019 Overview: Last done: 12/01/2016 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 2 diabetes mellitus (HCC) 11/06/2016 12/03/2022 HINTON (nonalcoholic steatohepatitis) 11/06/2016 04/17/2017 HINTON (nonalcoholic steatohepatitis) 11/06/2016 12/03/2022 RUQ abdominal mass 11/05/2016 0 Lesion of liver 10/29/2016 11/05/2018 RUQ abdominal pain 10/29/2016 7 Left temporal headache 10/29/201606/29 Blurred vision, left eye 10/29/2016 Leg edema, right 05/16/2016 12/03/2022 Bulge of lumbar disc without myelopathy 05/15/2016 12/02/2021 Overview: L4-5 and L5-S1 History of temporal arteritis 02/05/2016 04/17/2017 History of temporal arteritis 02/05/2016 12/03/2022 History of temporal arteritis 02/05/2016 07/10/2020 Chest pain 01/05/2016 01/09/2016 Acute nonintractable headache 01/05/2016 01/09/2016 Diabetic eye exam 11/06/2015 06/30/2019 Overview: Last done: 10/10/2015 Obesity 09/27/2015 06/30/2019 Iron deficiency anemia 09/17/201503/26 Overview: Seeing Dr. Cole Chronic lymphadenitis 09/17/20152022 Overview: Seeing Dr. Anibal Fry at the [facility] [place]: Had lymph node biopsy a year ago that showed reactive tissue. Bilateral renal cysts 07/06/20152018 Bilateral renal cysts 07/06/20152019 Proliferative diabetic retin opathy without macular edema associated with type 2 diabetes mellitus 06/28/2015 06/30/2019 Overview: Last done: 08/30/16 Diabetic Retinopathy Last done: 06/26/15: Diabetic Retinopathy Generalized edema 06/26/2015 06/30/2019 Fever 05/24/2015 09/24/2015 Right flank pain 05/24/2015 09/24/2015 Osteomyelitis of ankle or foot 04/30/2015 06/30/2019 Systemic lupus erythematosus 04/30/2015 06/30/2019 Abnormal weight gain 03/09/2015 016 Insulin long-term use 03/07/20152019 Amputation of great toe, right 02/28/2015 09/25/2022 Overview: Right, due to diabetic ulcer. MRSA infection 01/31/2015 03/07/2015 Overview: Started originally with a toe nail. 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 Uses O2 as needed day and night per Dr. 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 04/23/2012 normal spirometry. 04/2012 Methacholine Inhalation Challenge positive at level 5. Allergic rhinitis 04/17/2006 06/30/2019 Abdominal pain, right lower quadrant 02/05/2006 06/30/2019 Diarrhea 04/09/2005 06/30/2019 Internal hemorrhoids without mention of complication 04/09/2005 06/30/2019 Internal hemorrhoids 04/09/2005 019 Irritable bowel syndrome 02/12/2005 Abdominal pain, generalized 06/30/2019 Nonspecific elevation of lev els of transaminase or lactic acid dehydrogenase (LDH) 03/07/2015 On home oxygen therapy 06/29 Overview: 2 liters at , Sees dr. Xiao documented as of this encounter (statuses as of 12/21/2022) [facility]07-06-2022 History of Past illness Narrative* Problem Noted Date Diagnosed Date Resolved Date COVID-19 virus infection 08/21/202107/2021 Overview: 08/20/2021 Palpitations 10/27/2020 02/07/2021 Overview: Seeing [facility] Pneumonia due to COVID-19 virus 07/09/2020 07/10/2020 Diabetic ulcer of right midf oot associated with type 2 diabetes mellitus, with fat layer exposed 07/09/2020 02/07/2021 History of 2019 novel martinez virus disease (COVID-19) 02/21/2020 12/03/2022 Overview: 02/08/2020, 08/20/2021 Family history of malignant melanoma 11/05/2018 11/06/2018 Status post transmetatarsal amputation of right foot 11/05/2018 09/25/2022 Family history of malignant melanoma 11/05/2018 12/03/2022 Psychophysiological insomnia 09/14/2018 06/30/2019 Pain associated with surgical procedure 09/12/2018 06/30/2019 Overview: Left below knee amputation, 08/06/2018 Insulin resistance 08/03/2018 0 History of TB (tuberculosis) 02/02/2018 12/03/2022 Overview: Treated 06/2014 History of TB (tuberculosis) 02/02/2018 07/10/2020 Osteomyelitis of foot, left, acute 12/09/2017 06/30/2019 Shaking 08/31/2017 06/30/2019 Tongue biting 08/31/2017 11/05/2018 Diabetic eye exam 04/28/2017 06/30/2019 Overview: Last done: 09/17/2018 Diabetic eye exam 04/28/2017 06/30/2019 Overview: Last done: 12/09/2017 Diabetic eye exam 04/16/2017 06/30/2019 Overview: Last done: 04/15/2017 Neuropathic pain 03/03/2017 06/30/2019 Current use of proton pump inhibitor 03/03/2017 06/30/2019 Adnexal mass, right 12/16/2016 05/14/20 20 Overview: 3.[address] in 11/2016 Diabetic eye exam 11/12/2016 06/30/2019 Overview: Last done: 12/01/2016 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 2 diabetes mellitus (HCC) 11/06/2016 12/03/2022 HINTON (nonalcoholic steatohepatitis) 11/06/2016 04/17/2017 HINTON (nonalcoholic steatohepatitis) 11/06/2016 12/03/2022 RUQ abdominal mass 11/05/2016 0 Lesion of liver 10/29/2016 11/05/2018 RUQ abdominal pain 10/29/2016 7 Left temporal headache 10/29/201606/29 Blurred vision, left eye 10/29/2016 Leg edema, right 05/16/2016 12/03/2022 Bulge of lumbar disc without myelopathy 05/15/2016 12/02/2021 Overview: L4-5 and L5-S1 History of temporal arteritis 02/05/2016 04/17/2017 History of temporal arteritis 02/05/2016 12/03/2022 History of temporal arteritis 02/05/2016 07/10/2020 Chest pain 01/05/2016 01/09/2016 Acute nonintractable headache 01/05/2016 01/09/2016 Diabetic eye exam 11/06/2015 06/30/2019 Overview: Last done: 10/10/2015 Obesity 09/27/2015 06/30/2019 Iron deficiency anemia 09/17/201503/26 Overview: Seeing Dr. Cole Chronic lymphadenitis 09/17/20152022 Overview: Seeing Dr. Anibal Fry at the [facility]: Had lymph node biopsy a year ago that showed reactive tissue. Bilateral renal cysts 07/06/20152018 Bilateral renal cysts 07/06/20152019 Proliferative diabetic retin opathy without macular edema associated with type 2 diabetes mellitus 06/28/2015 06/30/2019 Overview: Last done: 08/30/16 Diabetic Retinopathy Last done: 06/26/15: Diabetic Retinopathy Generalized edema 06/26/2015 06/30/2019 Fever 05/24/2015 09/24/2015 Right flank pain 05/24/2015 09/24/2015 Osteomyelitis of ankle or foot 04/30/2015 06/30/2019 Systemic lupus erythematosus 04/30/2015 06/30/2019 Abnormal weight gain 03/09/2015 016 Insulin long-term use 03/07/20152019 Amputation of great toe, right 02/28/2015 09/25/2022 Overview: Right, due to diabetic ulcer. MRSA infection 01/31/2015 03/07/2015 Overview: Started originally with a toe nail. 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 Uses O2 as needed day and night per Dr. 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 04/23/2012 normal spirometry. 04/2012 Methacholine Inhalation Challenge positive at level 5. Allergic rhinitis 04/17/2006 06/30/2019 Abdominal pain, right lower quadrant 02/05/2006 06/30/2019 Diarrhea 04/09/2005 06/30/2019 Internal hemorrhoids without mention of complication 04/09/2005 06/30/2019 Internal hemorrhoids 04/09/2005 019 Irritable bowel syndrome 02/12/2005 Abdominal pain, generalized 06/30/2019 Nonspecific elevation of lev els of transaminase or lactic acid dehydrogenase (LDH) 03/07/2015 On home oxygen therapy 06/29 Overview: 2 liters at , Sees dr. Xiao documented as of this encounter (statuses as of 12/22/2022) [facility]07-06-2022 History of Past illness Narrative* Problem Noted Date Diagnosed Date Resolved Date COVID-19 virus infection 08/21/202107/2021 Overview: 08/20/2021 Palpitations 10/27/2020 02/07/2021 Overview: Seeing [facility] Pneumonia due to COVID-19 virus 07/09/2020 07/10/2020 Diabetic ulcer of right midf oot associated with type 2 diabetes mellitus, with fat layer exposed 07/09/2020 02/07/2021 History of 2019 novel martinez virus disease (COVID-19) 02/21/2020 12/03/2022 Overview: 02/08/2020, 08/20/2021 Family history of malignant melanoma 11/05/2018 11/06/2018 Status post transmetatarsal amputation of right foot 11/05/2018 09/25/2022 Family history of malignant melanoma 11/05/2018 12/03/2022 Psychophysiological insomnia 09/14/2018 06/30/2019 Pain associated with surgical procedure 09/12/2018 06/30/2019 Overview: Left below knee amputation, 08/06/2018 Insulin resistance 08/03/2018 0 History of TB (tuberculosis) 02/02/2018 12/03/2022 Overview: Treated 06/2014 History of TB (tuberculosis) 02/02/2018 07/10/2020 Osteomyelitis of foot, left, acute 12/09/2017 06/30/2019 Shaking 08/31/2017 06/30/2019 Tongue biting 08/31/2017 11/05/2018 Diabetic eye exam 04/28/2017 06/30/2019 Overview: Last done: 09/17/2018 Diabetic eye exam 04/28/2017 06/30/2019 Overview: Last done: 12/09/2017 Diabetic eye exam 04/16/2017 06/30/2019 Overview: Last done: 04/15/2017 Neuropathic pain 03/03/2017 06/30/2019 Current use of proton pump inhibitor 03/03/2017 06/30/2019 Adnexal mass, right 12/16/2016 06/30/19 20 Overview: 3.[address] in 11/2016 Diabetic eye exam 11/12/2016 06/30/2019 Overview: Last done: 12/01/2016 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 2 diabetes mellitus (HCC) 11/06/2016 12/03/2022 HINTON (nonalcoholic steatohepatitis) 11/06/2016 04/17/2017 HINTON (nonalcoholic steatohepatitis) 11/06/2016 12/03/2022 RUQ abdominal mass 11/05/2016 0 Lesion of liver 10/29/2016 11/05/2018 RUQ abdominal pain 10/29/2016 7 Left temporal headache 10/29/201606/29 Blurred vision, left eye 10/29/2016 Leg edema, right 05/16/2016 12/03/2022 Bulge of lumbar disc without myelopathy 05/15/2016 12/02/2021 Overview: L4-5 and L5-S1 History of temporal arteritis 02/05/2016 04/17/2017 History of temporal arteritis 02/05/2016 12/03/2022 History of temporal arteritis 02/05/2016 07/10/2020 Chest pain 01/05/2016 01/09/2016 Acute nonintractable headache 01/05/2016 01/09/2016 Diabetic eye exam 11/06/2015 06/30/2019 Overview: Last done: 10/10/2015 Obesity 09/27/2015 06/30/2019 Iron deficiency anemia 09/17/201503/26 Overview: Seeing Dr. Cole Chronic lymphadenitis 09/17/20152022 Overview: Seeing Dr. Anibal Fry at the [facility]: Had lymph node biopsy a year ago that showed reactive tissue. Bilateral renal cysts 07/06/20152018 Bilateral renal cysts 07/06/20152019 Proliferative diabetic retin opathy without macular edema associated with type 2 diabetes mellitus 06/28/2015 06/30/2019 Overview: Last done: 08/30/16 Diabetic Retinopathy Last done: 06/26/15: Diabetic Retinopathy Generalized edema 06/26/2015 06/30/2019 Fever 05/24/2015 09/24/2015 Right flank pain 05/24/2015 09/24/2015 Osteomyelitis of ankle or foot 04/30/2015 06/30/2019 Systemic lupus erythematosus 04/30/2015 06/30/2019 Abnormal weight gain 03/09/2015 016 Insulin long-term use 03/07/20152019 Amputation of great toe, right 02/28/2015 09/25/2022 Overview: Right, due to diabetic ulcer. MRSA infection 01/31/2015 03/07/2015 Overview: Started originally with a toe nail. 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 Uses O2 as needed day and night per Dr. 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 04/23/2012 normal spirometry. 04/2012 Methacholine Inhalation Challenge positive at level 5. Allergic rhinitis 04/17/2006 06/30/2019 Abdominal pain, right lower quadrant 02/05/2006 06/30/2019 Diarrhea 04/09/2005 06/30/2019 Internal hemorrhoids without mention of complication 04/09/2005 06/30/2019 Internal hemorrhoids 04/09/2005 019 Irritable bowel syndrome 02/12/2005 Abdominal pain, generalized 06/30/2019 Nonspecific elevation of lev els of transaminase or lactic acid dehydrogenase (LDH) 03/07/2015 On home oxygen therapy 06/29 Overview: 2 liters at , Sees dr. Xiao documented as of this encounter (statuses as of 01/06/2023) [facility]07-[facility]-2022 History of Past illness Narrative* Problem Noted Date Diagnosed Date Resolved Date COVID-19 virus infection 08/21/202107/2021 Overview: 08/20/2021 Palpitations 10/27/2020 02/07/2021 Overview: Seeing [facility] Pneumonia due to COVID-19 virus 07/09/2020 07/10/2020 Diabetic ulcer of right midf oot associated with type 2 diabetes mellitus, with fat layer exposed 07/09/2020 02/07/2021 History of 2019 novel martinez virus disease (COVID-19) 02/21/2020 12/03/2022 Overview: 02/08/2020, 08/20/2021 Family history of malignant melanoma 11/05/2018 11/06/2018 Status post transmetatarsal amputation of right foot 11/05/2018 09/25/2022 Family history of malignant melanoma 11/05/2018 12/03/2022 Psychophysiological insomnia 09/14/2018 06/30/2019 Pain associated with surgical procedure 09/12/2018 06/30/2019 Overview: Left below knee amputation, 08/06/2018 Insulin resistance 08/03/2018 0 History of TB (tuberculosis) 02/02/2018 12/03/2022 Overview: Treated 06/2014 History of TB (tuberculosis) 02/02/2018 07/10/2020 Osteomyelitis of foot, left, acute 12/09/2017 06/30/2019 Shaking 08/31/2017 06/30/2019 Tongue biting 08/31/2017 11/05/2018 Diabetic eye exam 04/28/2017 06/30/2019 Overview: Last done: 09/17/2018 Diabetic eye exam 04/28/2017 06/30/2019 Overview: Last done: 12/09/2017 Diabetic eye exam 04/16/2017 06/30/2019 Overview: Last done: 04/15/2017 Neuropathic pain 03/03/2017 06/30/2019 Current use of proton pump inhibitor 03/03/2017 06/30/2019 Adnexal mass, right 12/16/2016 06/30/19 Overview: 3.[address] in 11/2016 Diabetic eye exam 11/12/2016 06/30/2019 Overview: Last done: 12/01/2016 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 2 diabetes mellitus (HCC) 11/06/2016 12/03/2022 HINTON (nonalcoholic steatohepatitis) 11/06/2016 04/17/2017 HINTON (nonalcoholic steatohepatitis) 11/06/2016 12/03/2022 RUQ abdominal mass 11/05/2016 0 Lesion of liver 10/29/2016 11/05/2018 RUQ abdominal pain 10/29/2016 7 Left temporal headache 10/29/201606/29 Blurred vision, left eye 10/29/2016 Leg edema, right 05/16/2016 12/03/2022 Bulge of lumbar disc without myelopathy 05/15/2016 12/02/2021 Overview: L4-5 and L5-S1 History of temporal arteritis 02/05/2016 04/17/2017 History of temporal arteritis 02/05/2016 12/03/2022 History of temporal arteritis 02/05/2016 07/10/2020 Chest pain 01/05/2016 01/09/2016 Acute nonintractable headache 01/05/2016 01/09/2016 Diabetic eye exam 11/06/2015 06/30/2019 Overview: Last done: 10/10/2015 Obesity 09/27/2015 06/30/2019 Iron deficiency anemia 09/17/201503/26 Overview: Seeing Dr. Cole Chronic lymphadenitis 09/17/20152022 Overview: Seeing Dr. Anibal Fry at the [facility]: Had lymph node biopsy a year ago that showed reactive tissue. Bilateral renal cysts 07/06/20152018 Bilateral renal cysts 07/06/20152019 Proliferative diabetic retin opathy without macular edema associated with type 2 diabetes mellitus 06/28/2015 06/30/2019 Overview: Last done: 08/30/16 Diabetic Retinopathy Last done: 06/26/15: Diabetic Retinopathy Generalized edema 06/26/2015 06/30/2019 Fever 05/24/2015 09/24/2015 Right flank pain 05/24/2015 09/24/2015 Osteomyelitis of ankle or foot 04/30/2015 06/30/2019 Systemic lupus erythematosus 04/30/2015 06/30/2019 Abnormal weight gain 03/09/2015 016 Insulin long-term use 03/07/20152019 Amputation of great toe, right 02/28/2015 09/25/2022 Overview: Right, due to diabetic ulcer. MRSA infection 01/31/2015 03/07/2015 Overview: Started originally with a toe nail. 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 Uses O2 as needed day and night per Dr. 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 04/23/2012 normal spirometry. 04/2012 Methacholine Inhalation Challenge positive at level 5. Allergic rhinitis 04/17/2006 06/30/2019 Abdominal pain, right lower quadrant 02/05/2006 06/30/2019 Diarrhea 04/09/2005 06/30/2019 Internal hemorrhoids without mention of complication 04/09/2005 06/30/2019 Internal hemorrhoids 04/09/2005 019 Irritable bowel syndrome 02/12/2005 Abdominal pain, generalized 06/30/2019 Nonspecific elevation of lev els of transaminase or lactic acid dehydrogenase (LDH) 03/07/2015 On home oxygen therapy 06/29 Overview: 2 liters at , Sees dr. Xiao documented as of this encounter (statuses as of 01/21/2023) [facility] History of Past illness Narrative* Problem Noted Date Diagnosed Date Resolved Date COVID-19 virus infection 08/21/202107/2021 Overview: 08/20/2021 Palpitations 10/27/2020 02/07/2021 Overview: Seeing [facility] Pneumonia due to COVID-19 virus 07/09/2020 07/10/2020 Diabetic ulcer of right midf oot associated with type 2 diabetes mellitus, with fat layer exposed 07/09/2020 02/07/2021 History of 2019 novel martinez virus disease (COVID-19) 02/21/2020 12/03/2022 Overview: 02/08/2020, 08/20/2021 Family history of malignant melanoma 11/05/2018 11/06/2018 Status post transmetatarsal amputation of right foot 11/05/2018 09/25/2022 Family history of malignant melanoma 11/05/2018 12/03/2022 Psychophysiological insomnia 09/14/2018 06/30/2019 Pain associated with surgical procedure 09/12/2018 06/30/2019 Overview: Left below knee amputation, 08/06/2018 Insulin resistance 08/03/2018 0 History of TB (tuberculosis) 02/02/2018 12/03/2022 Overview: Treated 06/2014 History of TB (tuberculosis) 02/02/2018 07/10/2020 Osteomyelitis of foot, left, acute 12/09/2017 06/30/2019 Shaking 08/31/2017 06/30/2019 Tongue biting 08/31/2017 11/05/2018 Diabetic eye exam 04/28/2017 06/30/2019 Overview: Last done: 09/17/2018 Diabetic eye exam 04/28/2017 06/30/2019 Overview: Last done: 12/09/2017 Diabetic eye exam 04/16/2017 06/30/2019 Overview: Last done: 04/15/2017 Neuropathic pain 03/03/2017 06/30/2019 Current use of proton pump inhibitor 03/03/2017 06/30/2019 Adnexal mass, right 12/16/2016 06/30/19 Overview: 3.[address] in 11/2016 Diabetic eye exam 11/12/2016 06/30/2019 Overview: Last done: 12/01/2016 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 2 diabetes mellitus (HCC) 11/06/2016 12/03/2022 HINTON (nonalcoholic steatohepatitis) 11/06/2016 04/17/2017 HINTON (nonalcoholic steatohepatitis) 11/06/2016 12/03/2022 RUQ abdominal mass 11/05/2016 0 Lesion of liver 10/29/2016 11/05/2018 RUQ abdominal pain 10/29/2016 7 Left temporal headache 10/29/201606/29 Blurred vision, left eye 10/29/2016 Leg edema, right 05/16/2016 12/03/2022 Bulge of lumbar disc without myelopathy 05/15/2016 12/02/2021 Overview: L4-5 and L5-S1 History of temporal arteritis 02/05/2016 04/17/2017 History of temporal arteritis 02/05/2016 12/03/2022 History of temporal arteritis 02/05/2016 07/10/2020 Chest pain 01/05/2016 01/09/2016 Acute nonintractable headache 01/05/2016 01/09/2016 Diabetic eye exam 11/06/2015 06/30/2019 Overview: Last done: 10/10/2015 Obesity 09/27/2015 06/30/2019 Iron deficiency anemia 09/17/201503/26 Overview: Seeing Dr. Cole Chronic lymphadenitis 09/17/20152022 Overview: Seeing Dr. Anibal Fry at the [facility]: Had lymph node biopsy a year ago that showed reactive tissue. Bilateral renal cysts 07/06/20152018 Bilateral renal cysts 07/06/20152019 Proliferative diabetic retin opathy without macular edema associated with type 2 diabetes mellitus 06/28/2015 06/30/2019 Overview: Last done: 08/30/16 Diabetic Retinopathy Last done: 06/26/15: Diabetic Retinopathy Generalized edema 06/26/2015 06/30/2019 Fever 05/24/2015 09/24/2015 Right flank pain 05/24/2015 09/24/2015 Osteomyelitis of ankle or foot 04/30/2015 06/30/2019 Systemic lupus erythematosus 04/30/2015 06/30/2019 Abnormal weight gain 03/09/2015 016 Insulin long-term use 03/07/20152019 Amputation of great toe, right 02/28/2015 09/25/2022 Overview: Right, due to diabetic ulcer. MRSA infection 01/31/2015 03/07/2015 Overview: Started originally with a toe nail. 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 Uses O2 as needed day and night per Dr. 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 04/23/2012 normal spirometry. 04/2012 Methacholine Inhalation Challenge positive at level 5. Allergic rhinitis 04/17/2006 06/30/2019 Abdominal pain, right lower quadrant 02/05/2006 06/30/2019 Diarrhea 04/09/2005 06/30/2019 Internal hemorrhoids without mention of complication 04/09/2005 06/30/2019 Internal hemorrhoids 04/09/2005 019 Irritable bowel syndrome 02/12/2005 Abdominal pain, generalized 06/30/2019 Nonspecific elevation of lev els of transaminase or lactic acid dehydrogenase (LDH) 03/07/2015 On home oxygen therapy 06/29 Overview: 2 liters at , Sees dr. Xiao documented as of this encounter (statuses as of 01/29/2023) [facility] History of Past illness Narrative* Problem Noted Date Diagnosed Date Resolved Date COVID-19 virus infection 08/21/202107/2021 Overview: 08/20/2021 Palpitations 10/27/2020 02/07/2021 Overview: Seeing [facility] Pneumonia due to COVID-19 virus 07/09/2020 07/10/2020 Diabetic ulcer of right midf oot associated with type 2 diabetes mellitus, with fat layer exposed 07/09/2020 02/07/2021 History of 2019 novel martinez virus disease (COVID-19) 02/21/2020 12/03/2022 Overview: 02/08/2020, 08/20/2021 Family history of malignant melanoma 11/05/2018 11/06/2018 Status post transmetatarsal amputation of right foot 11/05/2018 09/25/2022 Family history of malignant melanoma 11/05/2018 12/03/2022 Psychophysiological insomnia 09/14/2018 06/30/2019 Pain associated with surgical procedure 09/12/2018 06/30/2019 Overview: Left below knee amputation, 08/06/2018 Insulin resistance 08/03/2018 0 History of TB (tuberculosis) 02/02/2018 12/03/2022 Overview: Treated 06/2014 History of TB (tuberculosis) 02/02/2018 07/10/2020 Osteomyelitis of foot, left, acute 12/09/2017 06/30/2019 Shaking 08/31/2017 06/30/2019 Tongue biting 08/31/2017 11/05/2018 Diabetic eye exam 04/28/2017 06/30/2019 Overview: Last done: 09/17/2018 Diabetic eye exam 04/28/2017 06/30/2019 Overview: Last done: 12/09/2017 Diabetic eye exam 04/16/2017 06/30/2019 Overview: Last done: 04/15/2017 Neuropathic pain 03/03/2017 06/30/2019 Current use of proton pump inhibitor 03/03/2017 06/30/2019 Adnexal mass, right 12/16/2016 06/30/19 20 Overview: 3.[address] in 11/2016 Diabetic eye exam 11/12/2016 06/30/2019 Overview: Last done: 12/01/2016 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 2 diabetes mellitus (HCC) 11/06/2016 12/03/2022 HINTON (nonalcoholic steatohepatitis) 11/06/2016 04/17/2017 HINTON (nonalcoholic steatohepatitis) 11/06/2016 12/03/2022 RUQ abdominal mass 11/05/2016 0 Lesion of liver 10/29/2016 11/05/2018 RUQ abdominal pain 10/29/2016 7 Left temporal headache 10/29/201606/29 Blurred vision, left eye 10/29/2016 Leg edema, right 05/16/2016 12/03/2022 Bulge of lumbar disc without myelopathy 05/15/2016 12/02/2021 Overview: L4-5 and L5-S1 History of temporal arteritis 02/05/2016 04/17/2017 History of temporal arteritis 02/05/2016 12/03/2022 History of temporal arteritis 02/05/2016 07/10/2020 Chest pain 01/05/2016 01/09/2016 Acute nonintractable headache 01/05/2016 01/09/2016 Diabetic eye exam 11/06/2015 06/30/2019 Overview: Last done: 10/10/2015 Obesity 09/27/2015 06/30/2019 Iron deficiency anemia 09/17/201503/26 Overview: Seeing Dr. Cole Chronic lymphadenitis 09/17/20152022 Overview: Seeing Dr. Anibal Fry at the [facility]: Had lymph node biopsy a year ago that showed reactive tissue. Bilateral renal cysts 07/06/20152018 Bilateral renal cysts 07/06/20152019 Proliferative diabetic retin opathy without macular edema associated with type 2 diabetes mellitus 06/28/2015 06/30/2019 Overview: Last done: 08/30/16 Diabetic Retinopathy Last done: 06/26/15: Diabetic Retinopathy Generalized edema 06/26/2015 06/30/2019 Fever 05/24/2015 09/24/2015 Right flank pain 05/24/2015 09/24/2015 Osteomyelitis of ankle or foot 04/30/2015 06/30/2019 Systemic lupus erythematosus 04/30/2015 06/30/2019 Abnormal weight gain 03/09/2015 016 Insulin long-term use 03/07/20152019 Amputation of great toe, right 02/28/2015 09/25/2022 Overview: Right, due to diabetic ulcer. MRSA infection 01/31/2015 03/07/2015 Overview: Started originally with a toe nail. 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 Uses O2 as needed day and night per Dr. 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 04/23/2012 normal spirometry. 04/2012 Methacholine Inhalation Challenge positive at level 5. Allergic rhinitis 04/17/2006 06/30/2019 Abdominal pain, right lower quadrant 02/05/2006 06/30/2019 Diarrhea 04/09/2005 06/30/2019 Internal hemorrhoids without mention of complication 04/09/2005 06/30/2019 Internal hemorrhoids 04/09/2005 019 Irritable bowel syndrome 02/12/2005 Abdominal pain, generalized 06/30/2019 Nonspecific elevation of lev els of transaminase or lactic acid dehydrogenase (LDH) 03/07/2015 On home oxygen therapy 06/29 Overview: 2 liters at hs, Sees dr. Xiao documented as of this encounter (statuses as of 02/06/2023) [facility]07-06-[facility]22 Miscellaneous Notes* Telephone Encounter - Johann Peters MD - 08/21/2021 9:46 AM EDT Noted and agree with info provided. * Telephone Encounter - Beryl Douglas RN - 08/21/2021 9:17 AM EDT Patient calls to let provider know that she was diagnosed with Crohn's Disease 2 weeks ago by [facility] gastrology. Patient also wants provider to know that she tested positive for Covid on an at home test yesterday. Symptoms started a week ago and include cough, low grade fever (last check was 100.3), nasal drainage (clear), and SOB with exertion. Denies chest pain. Patient monitoring pulse oximeter and reportswith exertion it drops into the 80's but at rest it is 92-93% on RA. Patient has oxygen in the homethat she is using at bedtime. Encouraged patient to utilize throughout the day to maintain pulse oxabove 90-92%. Patient declined VV. Recommended patient to ED if SOB worsens and not able to maintain pulse ox readings. Reviewed care advice and quarantine guidelines with patient. Patient verbalizesunderstanding. Patient was seen by Dr. Mcmahon last week and tested Negative on a PCR test Monday August 16, 2021. Beryl Douglas RN documented in this encounterL[facility] Miscellaneous Notes* Telephone Encounter - Ailin Hunter Ma - 08/14/2021 9:23 AM EDT Form faxed to [employer] at [phone] on August 14, 2021; transmission ok. Closed * Telephone Encounter - Kristina Grider LPN - 08/13/2021 8:57 AM EDT Form on docs desk/basket for review from [employer] Form Please review and sign. Needs to be faxed to [phone] documented in this encounterL[facility] Miscellaneous Notes* Telephone Encounter - Hannah Palomo APRN.CNP - 06/20/2021 6:56 PM EDT Xray tib fib and xray hand negative Patient aware RICE therapy Follow up with PCP or ortho. documented in this encounterL[facility]05[facility] History of Present illness Narrative* Lyla Bravo APRN.CNP - 06/20/2021 6:22 PM EDT Images from the original note were not included. Subjective Patient came in due to a fall she experienced a fall 4 days ago. Her right ring finger hurts in themiddle joint. Said it is painful to bend it. And the stump on the left side is also in pain. patient said her prosthetic came off and she landed directly on the stump. Said its painful to put any pressure on the stump. Has noticed some swelling in the stump. The history is provided by the patient. No staff interpreter was used. Review of Systems Constitutional: Negative. Skin: Negative. Objective Physical Exam Constitutional: Appearance: Normal appearance. Pulmonary: Effort: Pulmonary effort is normal. Musculoskeletal: Legs: Comments: Some mild swelling in the pink area marked above. Black part is amputated part. Left Lower Extremity: Left leg is amputated below knee. Feet: Left foot: Skin integrity: Skin integrity normal. Skin: General: Skin is warm. Neurological: Mental Status: She is alert. PAST MEDICAL HISTORY Diagnosis Date Adnexal mass, right 12/16/[address] in 11/2016 Allergic rhinitis 04/17/2006 Allergic rhinitis, cause unspecified 04/17/2006 Arthritis Bilateral renal cysts 07/06/2015 Carpal tunnel syndrome Chronic lymphadenitis 09/17/[address] Anibal Fry at the [facility]: Had lymph node biopsy a year ago that showedreactive tissue. Chronic nausea 04/30/2021 Chronic pain syndrome 03/06/2020 RA and Lupus related. On Tramadol per Dr. Littlejohn Cirrhosis of liver without ascites (HCC) 01/31/2015 Secondary to fatty liver, liver biopsy proven. CKD (chronic kidney disease) stage 3, GFR 30-59 ml/min ([facility]) 12/09/2017 Class 1 obesity due to excess calories with serious comorbidity and body mass index (BMI) of 30.0 to 30.9 in adult 03/03/2017 Diabetic eye exam ([facility]) 04/28/2017 Last done: 12/09/2017 Diabetic gastroparesis ([facility]) 09/24/2015 Empirically diagnosed since had nausea/vomiting, could not tolerate gastric emptying study. Good response to Reglan. Diabetic polyneuropathy 01/31/2015 Diabetic ulcer of right midfoot associated with type 2 diabetes mellitus, with fat layer exposed (HCC) 07/09/2020 Diastolic dysfunction 11/05/2018 Duodenitis without mention of hemorrhage 10/06/2008 Essential hypertension 08/24/2018 Essential tremor 10/27/2020 Family history of malignant melanoma 11/05/2018 Fatty liver 05/03/2014 Fibromyalgia 07/26/2014 AYESHA (generalized anxiety disorder) 05/18/2017 Gastroesophageal reflux disease without esophagitis 01/31/2015 Hemorrhage of gastrointestinal tract, unspecified History of 2019 novel coronavirus disease (COVID-19) 02/21/2020 02/08/2020 History of TB (tuberculosis) 02/02/2018 History of temporal arteritis 02/05/2016 History of transfusion Hypomagnesemia 11/06/2016 IBS (irritable bowel syndrome) 05/03/2014 Insulin pump status 01/22/2016 Internal hemorrhoids 04/09/2005 Iron deficiency anemia 11/06/2016 Leg edema, right 05/16/2016 Lesion of liver 10/29/2016 Low serum vitamin B12 05/09/2021 Lupus (HCC) Major depressive disorder in full remission (HCC) 05/03/2014 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 2 diabetes mellitus (HCC) 11/06/2016 Mild persistent asthma without complication 01/31/[address] Ramesh: Mild persistent asthma. 04/23/2012 normal spirometry. 04/2012 Methacholine Inhalation Challenge positive at level 5. Mixed hyperlipidemia 03/07/2015 HINTON (nonalcoholic steatohepatitis) 11/06/2016 Nephrolithiasis 05/18/2010 Obesity, Class I, BMI 30-34.9 07/09/2020 Obstructive sleep apnea 10/11/[address] Xiao, Working to get set up with a CPAP at 8 cm H2O with 1 L O2 bled in On home oxygen therapy 2 liters at Osteomyelitis of ankle or foot 04/30/2015 left, prior to left BKA Psychophysiological insomnia 09/14/2018 Pulmonary HTN ([facility]) 10/11/2008 Oxygen at home, uses prn. 2L per NC at night PVC's (premature ventricular contractions) 04/30/2021 Seeing [facility], on metoprolol. S/P BKA (below knee amputation) unilateral, left (HCC) 09/14/2018 Done 08/06/2018 Sjogren's syndrome ([facility]) 08/31/[address] Littlejohn Spinal stenosis, lumbosacral region 05/15/2016 Mild at L4-L5 Status post transmetatarsal amputation of right foot (HCC) 11/05/2018 Stroke ([facility]) TB lung, latent 07/26/2014 treatment started 06/2014 Tongue biting 08/31/2017 Type 2 diabetes mellitus with proteinuria ([facility]) 02/21/2015 Vitamin D deficiency 05/03/2014 Well adult exam 04/30/2021 Last done: 04/30/2021 PAST SURGICAL HISTORY Procedure Laterality Date 2D ECHO (EXEP) 06/03/2016 EF=55%, no valvue issues ABDOMINAL SURGERY HX AMPUTATION OF LOWER LEG Left 08/06/2018 BKA, ortho [place] BX LVR NDL DONE PURPOSE TM OTH MAJOR PX 12/14/2008 BX/EXC LYMPH NODE OPEN SUPERFICIAL 06/20/2014 left inguinal CARPAL TUNNEL RIGHT WRIST 01/2007 COLONOSCOPY FLX DX W/COLLJ SPEC WHEN PFRMD 11/07/1996 Colonoscopy COLONOSCOPY FLX DX W/COLLJ SPEC WHEN PFRMD 10/06/2008 Normal COLONOSCOPY FLX DX W/COLLJ SPEC WHEN PFRMD 08/09/2015 Colonoscopy COLONOSCOPY FLX DX W/COLLJ SPEC WHEN PFRMD 01/22/2021 COLONOSCOPY W/BIOPSY SINGLE/MULTIPLE 04/09/2005 DILATION & CURETTAGE DX&/THER NONOBSTETRIC Dilation & curettage x2 EGD TRANSORAL BIOPSY SINGLE/MULTIPLE 10/06/2008 Duodenitis ESOPHAGOGASTRODUODENOSCOPY TRANSORAL DIAGNOSTIC 08/09/2015 EGD ESOPHAGOGASTRODUODENOSCOPY TRANSORAL DIAGNOSTIC 01/22/2021 EYE SURGERY HX FECAL OCCULT BLOOD TEST 05/20/2017 negative HEART CATHETERIZATION 06/10/2016 Cath was normal HERNIA REPAIR HX LAPAROSCOPY W/RMVL ADNEXAL STRUCTURES 11/30/2006 RSO for ovarian cyst LAPS SURG CHOLECYSTECTOMY W/CHOLANGIOGRAPHY 08/2003 Doctor's Hopsital LEXISCAN STRESS TEST 06/14/2020 negative LIG/TRNSXJ FLP TUBE ABDL/VAG APPR UNI/BI Tubal ligation OTHER SURGICAL HISTORY (PLEASE SPECIFY) HX 04/2015 partial right foot amputation PAST SURGICAL HISTORY OF lithotripsy several PAST SURGICAL HISTORY OF percutaneous right kidney PAST SURGICAL HISTORY OF 2011 Bilateral carpal tunnel release PAST SURGICAL HISTORY OF 2011 left foot surgery PAST SURGICAL HISTORY OF 2012 Debridement bilateral great toes PAST SURGICAL HISTORY OF 02/28/2015 right toe amputation PAST SURGICAL HISTORY OF 05/2017 removed all five toes on the left foot. Dr. Palacios PAST SURGICAL HISTORY OF 10/2017 left 1st metatarsal bone removed per Dr. Palacios. REMV CATARACT EXTRACAP,INSERT LENS Right 10/08/2020 REPAIR FIRST ABDOMINAL WALL HERNIA 12/14/2008 SIGMOIDOSCOPY FLX DX W/COLLJ SPEC BR/WA IF PFRMD 09/16/2007 SIGMOIDOSCOPY FLX DX W/COLLJ SPEC BR/WA IF PFRMD 12/02/2010 Sigmoidoscopy, flexible STRESS TEST 12/28/2015 WNL TOTAL ABDOMINAL HYSTERECT W/WO RMVL TUBE OVARY 12/2006 Lt ovary and apendix removed also VAGINAL HYSTERECTOMY ALLERGIES Environmental Allergies [Other], Lipitor [Atorvastatin Calcium], Metformin, Percocet [Oxycodone-Acetaminophen], and Plaquenil [Hydroxychloroquine Sulfate] MEDICATIONS insulin regular human, CONCENTRATED 500 UNIT/ML, (HUMULIN R) 500 unit/mL soln INFUSE UP TO 2,000 UNITS DAILY VIA INSULIN PUMP ergocalciferol 50,000 unit capsule (VITAMIN D2, DRISDOL) Take one capsule by mouth Thursday through Thursday. None on Sat or Sun Xwzdc-4-NTS-EPA-Fish Oil (FISH OIL) 1,000 mg (120 mg-180 mg) cap Take 1 capsule by mouth once daily. cyanocobalamin (VITAMIN B-12) 1,000 mcg tab Take 1 tablet by mouth once daily. enalapril (VASOTEC) 5 mg tablet Take 1 tablet by mouth twice daily. dicyclomine (BENTYL) 10 mg capsule Take 1 capsule by mouth three times daily as needed (for loos stools). Fenofibrate (LOFIBRA) 160 mg tablet Take 1 tablet by mouth once daily. ondansetron (ZOFRAN) 8 mg tablet Take 1 tablet by mouth every 12 hours as needed for nausea/vomiting. sucralfate (CARAFATE) 1 gram tablet TAKE 1 TABLET BY MOUTH EVERY DAY AT 6PM modafinil (PROVIGIL) 200 mg tablet Take 1 tablet by mouth once daily for 180 days. Per sleep Med, Dr. Xioa gabapentin (NEURONTIN) 800 mg tablet Take 1 tablet by mouth three times daily for 180 days. blood sugar diagnostic (CONTOUR NEXT TEST STRIPS) test strip Use to test glucose 6 times daily as directed. DX: E11.8, E11.65, Z79.4, insulin pump dependent. DULoxetine (CYMBALTA) 60 mg capsule Take 1 capsule by mouth once daily. traZODone (DESYREL) 150 mg tablet Take 1 tablet by mouth daily at bedtime. fluticasone-vilanterol (BREO ELLIPTA) 200-25 mcg/dose inhaler Inhale 1 Inhalation as instructed once daily. metoprolol tartrate, short acting, (LOPRESSOR) 50 mg tablet Take 1 tablet by mouth twice daily. Take with a 25 mg tab twice a day for a total of 75 BID. metoprolol tartrate, short acting, (LOPRESSOR) 25 mg tablet Take 1 tablet by mouth once daily. Takewith a 50 mg tab twice a day for a total of 75 BID. rosuvastatin (CRESTOR) 40 mg tablet Take 1 tablet by mouth daily at bedtime. omeprazole (PRILOSEC) 40 mg capsule Take 1 capsule by mouth once daily. Lancets lancets Use to test blood glucose 6 times daily. insulin needles, DISPOSABLE, (PEN NEEDLE) 31 gauge x 5/16 Use as directed 2 times daily, on insulin, E11.42 insulin aspart U-100 (NOVOLOG FLEXPEN U-100 INSULIN) 100 unit/mL (3 mL) Inject subcutaneous three times daily with meals per SSI. TDD: 200 units albuterol HFA (PROAIR HFA) 90 mcg/actuation inhaler Inhale 2 Puffs as instructed every 4 hours as needed. albuterol HFA (PROAIR HFA) 90 mcg/actuation inhaler Inhale 2 Puffs as instructed every 4 hours as needed for Wheezing/Shortness of Breath. DULoxetine (CYMBALTA) 30 mg capsule Take 1 capsule by mouth once daily. metoclopramide HCl (REGLAN) 10 mg tablet Take 1 tablet by mouth before meals and at bedtime. 30min before meals. Nebulizer Accessories ip.access Nebulizer mask Dx: J45.30 Nebulizer Accessories KTM Advancec Filter Dx: J45.30 albuterol (PROVENTIL) 2.5 mg /3 mL (0.083 %) nebulizer solution Inhale by nebulizer over 5-15 minutes three (3) to four (4) times a day as needed for wheezing and shortness of breath hydrOXYzine pamoate (VISTARIL) 50 mg capsule Take 1 capsule by mouth three times daily as needed for Anxiety (Restlessness). magnesium oxide (MAG-OX) 400 mg (241.3 mg magnesium) tablet Take 1 tablet by mouth once daily. blood-glucose meter, wireless (CONTOUR NEXT LINK) kit Use as directed to test blood glucose. COMPOUNDED PRESCRIPTION Oxygen at 2 L with CPAP at night and PRN during the day albuterol (PROVENTIL) 2.5 mg /3 mL (0.083 %) nebulizer solution Use 3 mL via nebulizer one time only for 1 dose. FAMILY HISTORY Problem Relation Age of Onset other (liver cysts) Mother other (unknown) Father other (juvenile arthritis) Brother Cancer Brother bone ca, hodgkins lymphoma at 27 Thyroid Cancer Daughter Thyroid Daughter Heart Daughter cyst Social History Tobacco Use Smoking status: Never Smoker Smokeless tobacco: Never Used Tobacco comment: No smokers in current home. 2 smokers in childhood home. Substance Use Topics Alcohol use: Yes Comment: occasional Drug use: No ASSESSMENT/PLAN: 1. Fall, initial encounter - ICD9: E888.9, ICD10: W19.XXXA - XR HAND GENERAL 3V PA/LAT/OBL RIGHT - XR TIBIA FIBULA 2V AP/LAT LEFT So working is going to wait for read and contact patient about read. patient was instructed to restand ice and elevate injured areas if x-rays are negative. orthopedic consult placed if pain does not go away she is to follow up with ortho in 5-7 days. Lyla Bravo APRN.[employer] documented in this encounterLakehealth [facility]05-04-2022 Miscellaneous Notes* Telephone Encounter - Summer Bravo MA - 06/19/2021 1:13 PM EDT Patient notified and voiced understanding. Summer Bravo MA * Telephone Encounter - Johann Peters MD - 06/19/2021 1:04 PM EDT Let patient know the tramadol needs to stay with the provider managing the reason she is on it. * Telephone Encounter - Zuleyma Mendoza RN - 06/19/2021 11:47 AM EDT Patient calling to state she sees Dr. Parsons every 6 months for her arthritis and lupus. She states Dr. Parsons orders patient tramadol every month that she takes 3 times a day. She is asking if Dr. Peters be willing to order patient's tramadol for future refills? Please advise patient at [phone]. Thank you. documented in this encounterLakehealth [facility]04-11-2022 Miscellaneous Notes* Telephone Encounter - Kristina Grider LPN - 05/27/2021 10:09 AM EDT Requester: Pharmacy Last Visit in Endocrinology: Provider name: Migel Wang MD , Date 02/04/2021 Next Scheduled Appt in Endo: 08/05/2021 Last Refill: 05/17/20 Number of Refills given: 11 Pending Prescriptions Disp Refills INSULIN REGULAR HUMAN U-500 CONCENTRATE 500 UNIT/ML SUBCUTANEOUS SOLN 40 mL 11 Sig: INFUSE UP TO 2,000 UNITS DAILY VIA INSULIN PUMP HATTIE: No Please review and advise. Kristina Grider LPN documented in this encounterLakehealth [facility] Center03-24-2022 Miscellaneous Notes* Telephone Encounter - Gem Guerrero LPN - 05/09/2021 11:18 AM EDT Patient notified of results and provider's instructions. Patient verbalizes understanding. Gem Guerrero LPN * Telephone Encounter - Johann Peters MD - 05/09/2021 9:52 AM EDT Let patient know her Vit D level is still low. Advise her to take her Vit D 50,000 international unit(s) 's one a day Thu through Thursday, none on Thu or Thursday. New script sent in. Lipid panel showed LDL good and Trigs elevated at 334 (goal<150 but was 461). Advise to add on fish oil 1000 mg one a day. CBC shows her hemoglobin are low. But so is her B12 and Mg. Iron studies ok. Advise her to increaseher Magnesium Oxide 400 mg to one twice a day and also start Vit B12 1000 mcg one a day. documented in this encounterLakehealth [facility] Center09-11-2021 History of Past illness Narrative* Problem Noted Date Resolved Date Palpitations 10/27/2020 02/07/2021 Overview: Seeing [facility] Pneumonia due to COVID-19 virus 07/09/2020 07/10/2020 Diabetic ulcer of right midf oot associated with type 2 diabetes mellitus, with fat layer exposed 07/09/2020 02/07/2021 History of 2019 novel coronavirus disease (COVID -19) 02/21/2020 07/10/2020 Overview: 02/08/2020 Family history of malignant melanoma 11/05/2018 11/06/2018 Family history of malignant melanoma 11/05/2018 07/10/2020 Psychophysiological insomnia 09/14/2018 Pain associated with surgical procedure 09/13/1906/30/2019 Overview: Left below knee amputation, 08/06/2018 Chronic obstructive lung disease 08/24/2018 06/30/2019 Insulin resistance 08/03/2018 06/30/2019 History of TB (tuberculosis) 02/02/2018 Osteomyelitis of foot, left, acute 12/09/2017 06/30/2019 Shaking 08/31/2017 06/30/2019 Tongue biting 08/31/2017 11/05/2018 Sjogren's syndrome 08/31/2017 06/30/2019 Overview: Seeing Dr. Littlejohn Diabetic eye exam 04/28/2017 06/30/2019 Overview: Last done: 09/17/2018 Diabetic eye exam 04/28/2017 06/30/2019 Overview: Last done: 12/09/2017 Diabetic eye exam 04/16/2017 06/30/2019 Overview: Last done: 04/15/2017 Neuropathic pain 03/03/2017 06/30/2019 Current use of proton pump inhibitor 03/03/2017 06/30/2019 Adnexal mass, right 12/16/2016 06/30/2019 Overview: 3.[address] in 11/2016 Diabetic eye exam 11/12/2016 06/30/2019 Overview: Last done: 12/01/2016 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 2 diabetes mellitus 11/06/2016 04/12/2020 HINTON (nonalcoholic steatohepatitis) 11/06/2016 04/17/2017 RUQ abdominal mass 11/05/2016 06/30/2019 Lesion of liver 10/29/2016 11/05/2018 RUQ abdominal pain 10/29/2016 12/16/2016 Left temporal headache 10/29/2016 0 Blurred vision, left eye 10/29/2016 020 History of temporal arteritis 02/05/2016 History of temporal arteritis 02/05/2016 Chest pain 01/05/2016 01/09/2016 Acute nonintractable headache 01/05/2016 Diabetic eye exam 11/06/2015 06/30/2019 Overview: Last done: 10/10/2015 Obesity 09/27/2015 06/30/2019 Iron deficiency anemia 09/17/2015 7 Overview: Seeing Dr. 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 Type 2 diabetes mellitus with proteinuria 201506/30/2019 MRSA infection 01/31/2015 03/07/2015 Overview: Started originally with a toe nail. Mild persistent asthma without complication 01/1607/10/2020 Overview: Sees Dr. Ramesh: Mild persistent asthma. 04/23/2012 normal spirometry. 04/2012 Methacholine Inhalation Challenge positive at level 5. 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 Uses O2 as needed day and night. Left hip pain 12/26/2011 03/07/2015 DDD (degenerative disc disease), lumbar 12/26/19 12 06/30/2019 Overview: Sees Dr. 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 04/23/2012 normal spirometry. 04/2012 Methacholine Inhalation Challenge positive at level 5. Allergic rhinitis 04/17/2006 06/30/2019 Abdominal pain, right lower quadrant 02/05/2006 06/30/2019 Diarrhea 04/09/2005 06/30/2019 Internal hemorrhoids without mention of complica tion 04/09/2005 06/30/2019 Internal hemorrhoids 04/09/2005 11/05/2018 Irritable bowel syndrome 02/12/2005 020 Abdominal pain, generalized 06/16 Nonspecific elevation of lev els of transaminase or lactic acid dehydrogenase (LDH) 03/07/2015 On home oxygen therapy 0 Overview: 2 liters at , Sees dr. Xiao documented as of this encounter (statuses as of 05/09/2021) [facility]09-11-2021 History of Past illness Narrative* Problem Noted Date Resolved Date Palpitations 10/27/2020 02/07/2021 Overview: Seeing [facility] Pneumonia due to COVID-19 virus 07/09/2020 07/10/2020 Diabetic ulcer of right midf oot associated with type 2 diabetes mellitus, with fat layer exposed 07/09/2020 02/07/2021 History of 2019 novel coronavirus disease (COVID -19) 02/21/2020 07/10/2020 Overview: 02/08/2020 Family history of malignant melanoma 11/05/2018 11/06/2018 Family history of malignant melanoma 11/05/2018 07/10/2020 Psychophysiological insomnia 09/14/2018 Pain associated with surgical procedure 09/13/1906/30/2019 Overview: Left below knee amputation, 08/06/2018 Chronic obstructive lung disease 08/24/2018 06/30/2019 Insulin resistance 08/03/2018 06/30/2019 History of TB (tuberculosis) 02/02/2018 Osteomyelitis of foot, left, acute 12/09/2017 06/30/2019 Shaking 08/31/2017 06/30/2019 Tongue biting 08/31/2017 11/05/2018 Sjogren's syndrome 08/31/2017 06/30/2019 Overview: Seeing Dr. Littlejohn Diabetic eye exam 04/28/2017 06/30/2019 Overview: Last done: 09/17/2018 Diabetic eye exam 04/28/2017 06/30/2019 Overview: Last done: 12/09/2017 Diabetic eye exam 04/16/2017 06/30/2019 Overview: Last done: 04/15/2017 Neuropathic pain 03/03/2017 06/30/2019 Current use of proton pump inhibitor 03/03/2017 06/30/2019 Adnexal mass, right 12/16/2016 06/30/2019 Overview: 3.[address] in 11/2016 Diabetic eye exam 11/12/2016 06/30/2019 Overview: Last done: 12/01/2016 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 2 diabetes mellitus 11/06/2016 04/12/2020 HINTON (nonalcoholic steatohepatitis) 11/06/2016 04/17/2017 RUQ abdominal mass 11/05/2016 06/30/2019 Lesion of liver 10/29/2016 11/05/2018 RUQ abdominal pain 10/29/2016 12/16/2016 Left temporal headache 10/29/2016 0 Blurred vision, left eye 10/29/2016 020 History of temporal arteritis 02/05/2016 History of temporal arteritis 02/05/2016 Chest pain 01/05/2016 01/09/2016 Acute nonintractable headache 01/05/2016 Diabetic eye exam 11/06/2015 06/30/2019 Overview: Last done: 10/10/2015 Obesity 09/27/2015 06/30/2019 Iron deficiency anemia 09/17/2015 7 Overview: Seeing Dr. 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 Type 2 diabetes mellitus with proteinuria 201506/30/2019 MRSA infection 01/31/2015 03/07/2015 Overview: Started originally with a toe nail. Mild persistent asthma without complication 01/1607/10/2020 Overview: Sees Dr. Ramesh: Mild persistent asthma. 04/23/2012 normal spirometry. 04/2012 Methacholine Inhalation Challenge positive at level 5. 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 Uses O2 as needed day and night. Left hip pain 12/26/2011 03/07/2015 DDD (degenerative disc disease), lumbar 12/26/19 12 06/30/2019 Overview: Sees Dr. 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 04/23/2012 normal spirometry. 04/2012 Methacholine Inhalation Challenge positive at level 5. Allergic rhinitis 04/17/2006 06/30/2019 Abdominal pain, right lower quadrant 02/05/2006 06/30/2019 Diarrhea 04/09/2005 06/30/2019 Internal hemorrhoids without mention of complica tion 04/09/2005 06/30/2019 Internal hemorrhoids 04/09/2005 11/05/2018 Irritable bowel syndrome 02/12/2005 020 Abdominal pain, generalized 06/16 Nonspecific elevation of lev els of transaminase or lactic acid dehydrogenase (LDH) 03/07/2015 On home oxygen therapy 0 Overview: 2 liters at , Sees dr. Xiao documented as of this encounter (statuses as of 05/27/2021) [facility]09-11-2021 History of Past illness Narrative* Problem Noted Date Resolved Date Palpitations 10/27/2020 02/07/2021 Overview: Seeing [facility] Pneumonia due to COVID-19 virus 07/09/2020 07/10/2020 Diabetic ulcer of right midf oot associated with type 2 diabetes mellitus, with fat layer exposed 07/09/2020 02/07/2021 History of 2019 novel coronavirus disease (COVID -19) 02/21/2020 07/10/2020 Overview: 02/08/2020 Family history of malignant melanoma 11/05/2018 11/06/2018 Family history of malignant melanoma 11/05/2018 07/10/2020 Psychophysiological insomnia 09/14/2018 Pain associated with surgical procedure 09/13/1906/30/2019 Overview: Left below knee amputation, 08/06/2018 Chronic obstructive lung disease 08/24/2018 06/30/2019 Insulin resistance 08/03/2018 06/30/2019 History of TB (tuberculosis) 02/02/2018 Osteomyelitis of foot, left, acute 12/09/2017 06/30/2019 Shaking 08/31/2017 06/30/2019 Tongue biting 08/31/2017 11/05/2018 Sjogren's syndrome 08/31/2017 06/30/2019 Overview: Seeing Dr. Littlejohn Diabetic eye exam 04/28/2017 06/30/2019 Overview: Last done: 09/17/2018 Diabetic eye exam 04/28/2017 06/30/2019 Overview: Last done: 12/09/2017 Diabetic eye exam 04/16/2017 06/30/2019 Overview: Last done: 04/15/2017 Neuropathic pain 03/03/2017 06/30/2019 Current use of proton pump inhibitor 03/03/2017 06/30/2019 Adnexal mass, right 12/16/2016 06/30/2019 Overview: 3.[address] in 11/2016 Diabetic eye exam 11/12/2016 06/30/2019 Overview: Last done: 12/01/2016 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 2 diabetes mellitus 11/06/2016 04/12/2020 HINTON (nonalcoholic steatohepatitis) 11/06/2016 04/17/2017 RUQ abdominal mass 11/05/2016 06/30/2019 Lesion of liver 10/29/2016 11/05/2018 RUQ abdominal pain 10/29/2016 12/16/2016 Left temporal headache 10/29/2016 0 Blurred vision, left eye 10/29/2016 020 History of temporal arteritis 02/05/2016 History of temporal arteritis 02/05/2016 Chest pain 01/05/2016 01/09/2016 Acute nonintractable headache 01/05/2016 Diabetic eye exam 11/06/2015 06/30/2019 Overview: Last done: 10/10/2015 Obesity 09/27/2015 06/30/2019 Iron deficiency anemia 09/17/2015 7 Overview: Seeing Dr. 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 Type 2 diabetes mellitus with proteinuria 201506/30/2019 MRSA infection 01/31/2015 03/07/2015 Overview: Started originally with a toe nail. Mild persistent asthma without complication 01/1607/10/2020 Overview: Sees Dr. Ramesh: Mild persistent asthma. 04/23/2012 normal spirometry. 04/2012 Methacholine Inhalation Challenge positive at level 5. 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 Uses O2 as needed day and night. Left hip pain 12/26/2011 03/07/2015 DDD (degenerative disc disease), lumbar 12/26/19 12 06/30/2019 Overview: Sees Dr. 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 04/23/2012 normal spirometry. 04/2012 Methacholine Inhalation Challenge positive at level 5. Allergic rhinitis 04/17/2006 06/30/2019 Abdominal pain, right lower quadrant 02/05/2006 06/30/2019 Diarrhea 04/09/2005 06/30/2019 Internal hemorrhoids without mention of complica tion 04/09/2005 06/30/2019 Internal hemorrhoids 04/09/2005 11/05/2018 Irritable bowel syndrome 02/12/2005 020 Abdominal pain, generalized 06/16 Nonspecific elevation of lev els of transaminase or lactic acid dehydrogenase (LDH) 03/07/2015 On home oxygen therapy 0 Overview: 2 liters at , Sees dr. Xiao documented as of this encounter (statuses as of 06/19/2021) [facility]09-11-2021 History of Past illness Narrative* Problem Noted Date Resolved Date Palpitations 10/27/2020 02/07/2021 Overview: Seeing [facility] Pneumonia due to COVID-19 virus 07/09/2020 07/10/2020 Diabetic ulcer of right midf oot associated with type 2 diabetes mellitus, with fat layer exposed 07/09/2020 02/07/2021 History of 2019 novel coronavirus disease (COVID -19) 02/21/2020 07/10/2020 Overview: 02/08/2020 Family history of malignant melanoma 11/05/2018 11/06/2018 Family history of malignant melanoma 11/05/2018 07/10/2020 Psychophysiological insomnia 09/14/2018 Pain associated with surgical procedure 09/13/1906/30/2019 Overview: Left below knee amputation, 08/06/2018 Chronic obstructive lung disease 08/24/2018 06/30/2019 Insulin resistance 08/03/2018 06/30/2019 History of TB (tuberculosis) 02/02/2018 Osteomyelitis of foot, left, acute 12/09/2017 06/30/2019 Shaking 08/31/2017 06/30/2019 Tongue biting 08/31/2017 11/05/2018 Sjogren's syndrome 08/31/2017 06/30/2019 Overview: Seeing Dr. Littlejohn Diabetic eye exam 04/28/2017 06/30/2019 Overview: Last done: 09/17/2018 Diabetic eye exam 04/28/2017 06/30/2019 Overview: Last done: 12/09/2017 Diabetic eye exam 04/16/2017 06/30/2019 Overview: Last done: 04/15/2017 Neuropathic pain 03/03/2017 06/30/2019 Current use of proton pump inhibitor 03/03/2017 06/30/2019 Adnexal mass, right 12/16/2016 06/30/2019 Overview: 3.[address] in 11/2016 Diabetic eye exam 11/12/2016 06/30/2019 Overview: Last done: 12/01/2016 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 2 diabetes mellitus 11/06/2016 04/12/2020 HINTON (nonalcoholic steatohepatitis) 11/06/2016 04/17/2017 RUQ abdominal mass 11/05/2016 06/30/2019 Lesion of liver 10/29/2016 11/05/2018 RUQ abdominal pain 10/29/2016 12/16/2016 Left temporal headache 10/29/2016 0 Blurred vision, left eye 10/29/2016 020 History of temporal arteritis 02/05/2016 History of temporal arteritis 02/05/2016 Chest pain 01/05/2016 01/09/2016 Acute nonintractable headache 01/05/2016 Diabetic eye exam 11/06/2015 06/30/2019 Overview: Last done: 10/10/2015 Obesity 09/27/2015 06/30/2019 Iron deficiency anemia 09/17/2015 7 Overview: Seeing Dr. 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 Type 2 diabetes mellitus with proteinuria 201506/30/2019 MRSA infection 01/31/2015 03/07/2015 Overview: Started originally with a toe nail. Mild persistent asthma without complication 01/1607/10/2020 Overview: Sees Dr. Ramesh: Mild persistent asthma. 04/23/2012 normal spirometry. 04/2012 Methacholine Inhalation Challenge positive at level 5. 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 Uses O2 as needed day and night. Left hip pain 12/26/2011 03/07/2015 DDD (degenerative disc disease), lumbar 12/26/19 12 06/30/2019 Overview: Sees Dr. 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 04/23/2012 normal spirometry. 04/2012 Methacholine Inhalation Challenge positive at level 5. Allergic rhinitis 04/17/2006 06/30/2019 Abdominal pain, right lower quadrant 02/05/2006 06/30/2019 Diarrhea 04/09/2005 06/30/2019 Internal hemorrhoids without mention of complica tion 04/09/2005 06/30/2019 Internal hemorrhoids 04/09/2005 11/05/2018 Irritable bowel syndrome 02/12/2005 020 Abdominal pain, generalized 06/16 Nonspecific elevation of lev els of transaminase or lactic acid dehydrogenase (LDH) 03/07/2015 On home oxygen therapy 0 Overview: 2 liters at , Sees dr. Xiao documented as of this encounter (statuses as of 06/20/2021) [facility]09-11-2021 History of Past illness Narrative* Problem Noted Date Resolved Date Palpitations 10/27/2020 02/07/2021 Overview: Seeing [facility] Pneumonia due to COVID-19 virus 07/09/2020 07/10/2020 Diabetic ulcer of right midf oot associated with type 2 diabetes mellitus, with fat layer exposed 07/09/2020 02/07/2021 History of 2019 novel coronavirus disease (COVID -19) 02/21/2020 07/10/2020 Overview: 02/08/2020 Family history of malignant melanoma 11/05/2018 11/06/2018 Family history of malignant melanoma 11/05/2018 07/10/2020 Psychophysiological insomnia 09/14/2018 Pain associated with surgical procedure 09/13/1906/30/2019 Overview: Left below knee amputation, 08/06/2018 Chronic obstructive lung disease 08/24/2018 06/30/2019 Insulin resistance 08/03/2018 06/30/2019 History of TB (tuberculosis) 02/02/2018 Osteomyelitis of foot, left, acute 12/09/2017 06/30/2019 Shaking 08/31/2017 06/30/2019 Tongue biting 08/31/2017 11/05/2018 Sjogren's syndrome 08/31/2017 06/30/2019 Overview: Seeing Dr. Littlejohn Diabetic eye exam 04/28/2017 06/30/2019 Overview: Last done: 09/17/2018 Diabetic eye exam 04/28/2017 06/30/2019 Overview: Last done: 12/09/2017 Diabetic eye exam 04/16/2017 06/30/2019 Overview: Last done: 04/15/2017 Neuropathic pain 03/03/2017 06/30/2019 Current use of proton pump inhibitor 03/03/2017 06/30/2019 Adnexal mass, right 12/16/2016 06/30/2019 Overview: 3.[address] in 11/2016 Diabetic eye exam 11/12/2016 06/30/2019 Overview: Last done: 12/01/2016 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 2 diabetes mellitus 11/06/2016 04/12/2020 HINTON (nonalcoholic steatohepatitis) 11/06/2016 04/17/2017 RUQ abdominal mass 11/05/2016 06/30/2019 Lesion of liver 10/29/2016 11/05/2018 RUQ abdominal pain 10/29/2016 12/16/2016 Left temporal headache 10/29/2016 0 Blurred vision, left eye 10/29/2016 020 History of temporal arteritis 02/05/2016 History of temporal arteritis 02/05/2016 Chest pain 01/05/2016 01/09/2016 Acute nonintractable headache 01/05/2016 Diabetic eye exam 11/06/2015 06/30/2019 Overview: Last done: 10/10/2015 Obesity 09/27/2015 06/30/2019 Iron deficiency anemia 09/17/2015 7 Overview: Seeing Dr. 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 Type 2 diabetes mellitus with proteinuria 201506/30/2019 MRSA infection 01/31/2015 03/07/2015 Overview: Started originally with a toe nail. Mild persistent asthma without complication 01/1607/10/2020 Overview: Sees Dr. Ramesh: Mild persistent asthma. 04/23/2012 normal spirometry. 04/2012 Methacholine Inhalation Challenge positive at level 5. 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 Uses O2 as needed day and night. Left hip pain 12/26/2011 03/07/2015 DDD (degenerative disc disease), lumbar 12/26/19 12 06/30/2019 Overview: Sees Dr. 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 04/23/2012 normal spirometry. 04/2012 Methacholine Inhalation Challenge positive at level 5. Allergic rhinitis 04/17/2006 06/30/2019 Abdominal pain, right lower quadrant 02/05/2006 06/30/2019 Diarrhea 04/09/2005 06/30/2019 Internal hemorrhoids without mention of complica tion 04/09/2005 06/30/2019 Internal hemorrhoids 04/09/2005 11/05/2018 Irritable bowel syndrome 02/12/2005 020 Abdominal pain, generalized 06/16 Nonspecific elevation of lev els of transaminase or lactic acid dehydrogenase (LDH) 03/07/2015 On home oxygen therapy 0 Overview: 2 liters at , Sees dr. Xiao documented as of this encounter (statuses as of 06/20/2021) [facility]09-[facility]21 History of Past illness Narrative* Problem Noted Date Resolved Date Palpitations 10/27/2020 02/07/2021 Overview: Seeing [facility] Pneumonia due to COVID-19 virus 07/09/2020 07/10/2020 Diabetic ulcer of right midf oot associated with type 2 diabetes mellitus, with fat layer exposed 07/09/2020 02/07/2021 History of 2019 novel coronavirus disease (COVID -19) 02/21/2020 07/10/2020 Overview: 02/08/2020 Family history of malignant melanoma 11/05/2018 11/06/2018 Family history of malignant melanoma 11/05/2018 07/10/2020 Psychophysiological insomnia 09/14/2018 Pain associated with surgical procedure 09/13/19 19 06/30/2019 Overview: Left below knee amputation, 08/06/2018 Chronic obstructive lung disease 08/24/2018 06/30/2019 Insulin resistance 08/03/2018 06/30/2019 History of TB (tuberculosis) 02/02/2018 Osteomyelitis of foot, left, acute 12/09/2017 06/30/2019 Shaking 08/31/2017 06/30/2019 Tongue biting 08/31/2017 11/05/2018 Sjogren's syndrome 08/31/2017 06/30/2019 Overview: Seeing Dr. Littlejohn Diabetic eye exam 04/28/2017 06/30/2019 Overview: Last done: 09/17/2018 Diabetic eye exam 04/28/2017 06/30/2019 Overview: Last done: 12/09/2017 Diabetic eye exam 04/16/2017 06/30/2019 Overview: Last done: 04/15/2017 Neuropathic pain 03/03/2017 06/30/2019 Current use of proton pump inhibitor 03/03/2017 06/30/2019 Adnexal mass, right 12/16/2016 06/30/2019 Overview: 3.[address] in 11/2016 Diabetic eye exam 11/12/2016 06/30/2019 Overview: Last done: 12/01/2016 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 2 diabetes mellitus 11/06/2016 04/12/2020 HINTON (nonalcoholic steatohepatitis) 11/06/2016 04/17/2017 RUQ abdominal mass 11/05/2016 06/30/2019 Lesion of liver 10/29/2016 11/05/2018 RUQ abdominal pain 10/29/2016 12/16/2016 Left temporal headache 10/29/2016 0 Blurred vision, left eye 10/29/2016 020 History of temporal arteritis 02/05/2016 History of temporal arteritis 02/05/2016 Chest pain 01/05/2016 01/09/2016 Acute nonintractable headache 01/05/2016 Diabetic eye exam 11/06/2015 06/30/2019 Overview: Last done: 10/10/2015 Obesity 09/27/2015 06/30/2019 Iron deficiency anemia 09/17/2015 7 Overview: Seeing Dr. 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 Type 2 diabetes mellitus with proteinuria 201506/30/2019 MRSA infection 01/31/2015 03/07/2015 Overview: Started originally with a toe nail. Mild persistent asthma without complication 01/1607/10/2020 Overview: Sees Dr. Ramesh: Mild persistent asthma. 04/23/2012 normal spirometry. 04/2012 Methacholine Inhalation Challenge positive at level 5. 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 Uses O2 as needed day and night. Left hip pain 12/26/2011 03/07/2015 DDD (degenerative disc disease), lumbar 12/26/19 12 06/30/2019 Overview: Sees Dr. 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 04/23/2012 normal spirometry. 04/2012 Methacholine Inhalation Challenge positive at level 5. Allergic rhinitis 04/17/2006 06/30/2019 Abdominal pain, right lower quadrant 02/05/2006 06/30/2019 Diarrhea 04/09/2005 06/30/2019 Internal hemorrhoids without mention of complica tion 04/09/2005 06/30/2019 Internal hemorrhoids 04/09/2005 11/05/2018 Irritable bowel syndrome 02/12/2005 020 Abdominal pain, generalized 06/16 Nonspecific elevation of lev els of transaminase or lactic acid dehydrogenase (LDH) 03/07/2015 On home oxygen therapy 0 Overview: 2 liters at , Sees dr. Xiao documented as of this encounter (statuses as of 08/14/2021) [facility]05-23-2021 Note. MICRO - Microbiology PROCEDURE: Culture Reference ID [*[id number]] SOURCE: Ulcer BODY SITE: Foot R COLLECTED DATE/TIME: 07/06/2020 10:00 EDT RECEIVED DATE/TIME: 07/06/2020 16:06 EDT START DATE/TIME: 07/06/2020 16:07 EDT FREE TEXT SOURCE: FINAL REPORTS Final Report [] Verified Date/Time/Personnel: 07/08/2020 10:22 EDT Beta Hemolytic Streptococci, Group G PRELIMINARY REPORTS Preliminary Report [] Verified Date/Time/Personnel: 07/07/2020 12:21 EDT Beta Hemolytic Streptococci, Group G JASPREET to follow SUSCEPTIBILITY RESULTS Beta Hemolytic Streptococci, Group G Antibiotic JASPREET Dilut JASPREET Inter Azithromycin <=0.25 Susceptible Cefotaxime <=0.25 Susceptible Clindamycin 0.12 Susceptible Penicillin <=0.03 Susceptible Performing Locations *1: This test was performed at: [facility], [address] [place] [address], [id number] , [facility] ([place])Comment on above:Performed By: #### CREF #### [place] [id number] [place], [place] [address]Evaluation note* Diagnosis Low serum vitamin B12 [facility] Diagnosis 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, with long-term current use of insulin, macular edema presence unspecified, unspecified laterality, unspecified proliferative retinopathy* (HCC) [facility]* Diagnosis Fall, initial encounter- Primary [facility]* Diagnosis Type 2 diabetes mellitus with moderate nonproliferative retinopathy, with long- term current use of insulin (HCC) documented [facility]* Diagnosis Mixed hyperlipidemia [facility]* Diagnosis Type 2 diabetes mellitus with moderate nonproliferative retinopathy, with long- term current use of insulin, macular edema presence unspecified, unspecified laterality (HCC)- Primary Obesity, Class I, BMI 30-34.9 Obesity, unspecified Mixed hyperlipidemia Insulin pump status Hypertension Unspecified essential hypertension Stage 3a chronic kidney disease (HCC) Thyroid nodule Nontoxic uninodular goiter [facility] Diagnosis Thyroid nodule Nontoxic uninodular goiter [facility]* Diagnosis Multiple thyroid nodules Nontoxic multinodular goiter Multiple thyroid nodules Nontoxic multinodular goiter [facility] Diagnosis Mixed hyperlipidemia [facility]* Diagnosis Hypertension- Primary Unspecified essential hypertension Chronic kidney disease, stage 4, severely decreased GFR (HCC) Chronic kidney disease, Stage IV (severe) Mixed hyperlipidemia Obstructive sleep apnea Obstructive sleep apnea (adult) (pediatric) Cirrhosis of liver without ascites, unspecified hepatic cirrhosis type (HCC) HINTON (nonalcoholic steatohepatitis) Other chronic nonalcoholic liver disease Type 2 diabetes mellitus with moderate nonproliferative retinopathy, with long- term current use of insulin, macular edema presence unspecified, unspecified laterality (HCC) Multiple thyroid nodules Nontoxic multinodular goiter Iron deficiency anemia, unspecified iron deficiency anemia type Chronic lymphadenitis Lupus (HCC) Systemic lupus erythematosus Crohn's disease of small intestine with complication (HCC) Regional enteritis of small intestine Sjoegren syndrome (HCC) Sicca syndrome AYESHA (generalized anxiety disorder) Generalized anxiety disorder Major depressive disorder in full remission, unspecified whether recurrent (HCC) Status post transmetatarsal amputation of right foot (HCC) S/P BKA (below knee amputation) unilateral, left (HCC) Diabetic gastroparesis (HCC) Type II or unspecified type diabetes mellitus with neurological manifestations, not stated as uncontrolled Pulmonary HTN (HCC) Other chronic pulmonary heart diseases PVC's (premature ventricular contractions) Other premature beats Bronchitis Bronchitis, not specified as acute or chronic [facility] Diagnosis Mixed hyperlipidemia [facility]* Diagnosis Encounter for screening mammogram for breast cancer [facility]* Diagnosis Hypertension- Primary Unspecified essential hypertension [facility]* Diagnosis Encounter for screening mammogram for breast cancer [facility]* Diagnosis 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, with long-term current use of insulin, macular edema presence unspecified, unspecified laterality, unspecified proliferative retinopathy* (HCC) [facility]* Diagnosis Well adult exam- Primary Routine general medical examination at a [facility] care facility 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, with long-term current use of insulin, macular edema presence unspecified, unspecified laterality, unspecified proliferative retinopathy* (HCC) 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 2 diabetes mellitus (HCC) Hypertension Unspecified essential hypertension Mixed hyperlipidemia AYESHA (generalized anxiety disorder) Generalized anxiety disorder Major depressive disorder in full remission, unspecified whether recurrent (HCC) CKD (chronic kidney disease) stage 5, GFR less than 15 ml/min (HCC) Chronic kidney disease, Stage V Hyperparathyroidism, secondary renal (HCC) Secondary hyperparathyroidism (of renal origin) Obstructive sleep apnea Obstructive sleep apnea (adult) (pediatric) Mild persistent asthma without complication Unspecified asthma Hypoxia Hypoxemia Gastroesophageal reflux disease without esophagitis Esophageal reflux Crohn's disease of small intestine with complication (HCC) Regional enteritis of small intestine Cirrhosis of liver without ascites, unspecified hepatic cirrhosis type (HCC) HINTON (nonalcoholic steatohepatitis) Other chronic nonalcoholic liver disease Diabetic gastroparesis (HCC) Type II or unspecified type diabetes mellitus with neurological manifestations, not stated as uncontrolled Leg edema, right Edema Sjoegren syndrome (HCC) Sicca syndrome Lupus (HCC) Systemic lupus erythematosus PVC's (premature ventricular contractions) Other premature beats Fibromyalgia Mylagia and myositis, unspecified Hypomagnesemia Disorders of magnesium metabolism Essential tremor Essential and other specified forms of tremor Iron deficiency anemia, unspecified iron deficiency anemia type Chronic lymphadenitis Low serum vitamin B12 Obesity, Class I, BMI 30-34.9 Obesity, unspecified Psychophysiological insomnia Persistent disorder of initiating or maintaining sleep Pulmonary HTN (HCC) Other chronic pulmonary heart diseases Vitamin D deficiency Unspecified vitamin D deficiency Chronic pain syndrome DDD (degenerative disc disease), lumbar Degeneration of lumbar or lumbosacral intervertebral disc Spinal stenosis, lumbosacral region Multiple thyroid nodules Nontoxic multinodular goiter History of CVA (cerebrovascular accident) Transient ischemic attack (TIA), and cerebral infarction without residual deficits Urgency incontinence Urge incontinence Medication management Encounter for long-term (current) use of other medications S/P BKA (below knee amputation) unilateral, left (HCC) Need for vaccination Need for prophylactic vaccination and inoculation against unspecified single disease [facility] Diagnosis 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, with long-term current use of insulin, macular edema presence unspecified, unspecified laterality, unspecified proliferative retinopathy* (HCC) documented [facility] Diagnosis Need for vaccination- Primary Need for prophylactic vaccination and inoculation against unspecified single disease [facility]* Diagnosis Type 2 diabetes mellitus with proteinuria (HCC)- Primary [facility] Diagnosis 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, with long-term current use of insulin, macular edema presence unspecified, unspecified laterality, unspecified proliferative retinopathy* (HCC)- Primary Atrial flutter, unspecified type (HCC) Multiple thyroid nodules Nontoxic multinodular goiter Obesity, Class I, BMI 30-34.9 Obesity, unspecified Insulin pump status Mixed hyperlipidemia Hypertension Unspecified essential hypertension [facility]* Diagnosis Encounter for screening mammogram for breast cancer [facility]* Problem Noted Date Resolved Date COVID-19 virus infection 08/21/2021 022 Overview: 08/20/2021 Palpitations 10/27/2020 02/07/2021 Overview: Seeing [facility] Pneumonia due to COVID-19 virus 07/09/2020 07/10/2020 Diabetic ulcer of right midf oot associated with type 2 diabetes mellitus, with fat layer exposed 07/09/2020 02/07/2021 Family history of malignant melanoma 11/05/2018 11/06/2018 Family history of malignant melanoma 11/05/2018 07/10/2020 Psychophysiological insomnia 09/14/2018 Pain associated with surgical procedure 09/13/19 19 06/30/2019 Overview: Left below knee amputation, 08/06/2018 Chronic obstructive lung disease 08/24/2018 06/30/2019 Insulin resistance 08/03/2018 06/30/2019 History of TB (tuberculosis) 02/02/2018 Osteomyelitis of foot, left, acute 12/09/2017 06/30/2019 Shaking 08/31/2017 06/30/2019 Tongue biting 08/31/2017 11/05/2018 Sjogren's syndrome 08/31/2017 06/30/2019 Overview: Seeing Dr. Littlejohn Diabetic eye exam 04/28/2017 06/30/2019 Overview: Last done: 09/17/2018 Diabetic eye exam 04/28/2017 06/30/2019 Overview: Last done: 12/09/2017 Diabetic eye exam 04/16/2017 06/30/2019 Overview: Last done: 04/15/2017 Neuropathic pain 03/03/2017 06/30/2019 Current use of proton pump inhibitor 03/03/2017 06/30/2019 Adnexal mass, right 12/16/2016 06/30/2019 Overview: 3.[address] in 11/2016 Diabetic eye exam 11/12/2016 06/30/2019 Overview: Last done: 12/01/2016 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 2 diabetes mellitus 11/06/2016 04/12/2020 HINTON (nonalcoholic steatohepatitis) 11/06/2016 04/17/2017 RUQ abdominal mass 11/05/2016 06/30/2019 Lesion of liver 10/29/2016 11/05/2018 RUQ abdominal pain 10/29/2016 12/16/2016 Left temporal headache 10/29/2016 0 Blurred vision, left eye 10/29/2016 020 History of temporal arteritis 02/05/2016 History of temporal arteritis 02/05/2016 Chest pain 01/05/2016 01/09/2016 Acute nonintractable headache 01/05/2016 Diabetic eye exam 11/06/2015 06/30/2019 Overview: Last done: 10/10/2015 Obesity 09/27/2015 06/30/2019 Iron deficiency anemia 09/17/2015 7 Overview: Seeing Dr. 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 Type 2 diabetes mellitus with proteinuria 201506/30/2019 MRSA infection 01/31/2015 03/07/2015 Overview: Started originally with a toe nail. Mild persistent asthma without complication 01/1607/10/2020 Overview: Sees Dr. Ramesh: Mild persistent asthma. 04/23/2012 normal spirometry. 04/2012 Methacholine Inhalation Challenge positive at level 5. 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 Uses O2 as needed day and night. Left hip pain 12/26/2011 03/07/2015 DDD (degenerative disc disease), lumbar 12/26/19 12 06/30/2019 Overview: Sees Dr. 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 04/23/2012 normal spirometry. 04/2012 Methacholine Inhalation Challenge positive at level 5. Allergic rhinitis 04/17/2006 06/30/2019 Abdominal pain, right lower quadrant 02/05/2006 06/30/2019 Diarrhea 04/09/2005 06/30/2019 Internal hemorrhoids without mention of complica tion 04/09/2005 06/30/2019 Internal hemorrhoids 04/09/2005 11/05/2018 Irritable bowel syndrome 02/12/2005 020 Abdominal pain, generalized 06/16 Nonspecific elevation of lev els of transaminase or lactic acid dehydrogenase (LDH) 03/07/2015 On home oxygen therapy 0 Overview: 2 liters at , Sees dr. Xiao documented as of this encounter (statuses as of 08/21/2021) [facility] for referral (narrative)* Diagnostic Procedure Only (Routine) - Authorized Specialty Diagnoses / Procedures Referred By [facility] Referred To Contact US IMAGING Diagnoses Thyroid nodule Procedures US THYROID/PARATHYROID US SOFT TISSUE HEAD & NECK REAL TIME IMGE Migel Nagel MD [address] [place] [address], [address] [address] Us Imaging Referral ID Status Reason Start Date Expiration Date Visits Requested Visits Authorized [id number] Authorized Auto-Generat ed Referral 2 01/01/2023 1 1 [facility] for referral (narrative)* Diagnostic Procedure Only (Routine) - Closed Specialty Diagnoses / Procedures Referred By Contesther t Referred To Contact US IMAGING Diagnoses Thyroid nodule Procedures US THYROID/PARATHYROID US SOFT TISSUE HEAD & NECK REAL TIME IMGE Migel Nagel MD [address] [place] [address], [address] [place] [address] Us Imaging Referral ID Status Reason Start Date Expiration Date V isits Requested Visits Authorized [id number] Closed Auto-Generate d Referral 12/02/2021 01/01/2023 1 1 T [facility] for referral (narrative)* Diagnostic Procedure Only (Routine) - Pending Review Specialty Diagnoses / Procedures Referred By Contac t Referred To Contact [facility] Diagnoses Encounter for screening mammogram for breast cancer Procedures CESAR SCREENING SCREENING MAMMOGRAPHY BI 2-VIEW BREAST INC CAD Johann Peters MD [address] [place] [id number] [facility] [address] [place] [address] Referral ID Status Reason Start Date Expiration Date Visits Requested Visits Authorized [id number] Pending Review Auto-Generat ed Referral 04/09/2022 05/09/[address] [facility] for referral (narrative)* Diagnostic Procedure Only (Routine) - Pending Review Specialty Diagnoses / Procedures Referred By Pilar t Referred To Contact [facility] Diagnoses Encounter for screening mammogram for breast cancer Procedures CESAR SCREENING SCREENING MAMMOGRAPHY BI 2-VIEW BREAST INC CAD Johann Peters MD [address] [place] [address] [facility] [address] [place] [address] Referral ID Status Reason Start Date Expiration Date Visits Requested Visits Authorized [id number] Pending Review Auto-Generat ed Referral 05/07/2022 06/06/2023 1 1 [facility] for referral (narrative)* Diagnostic Procedure Only (Routine) - Pending Review Specialty Diagnoses / Procedures Referred By Contac t Referred To Contact US IMAGING Diagnoses Multiple thyroid nodules Procedures US THYROID/PARATHYROID US SOFT TISSUE HEAD & NECK REAL TIME IMGE DOCM Migel Wang MD [address] [facility], [address] [place] [address] [facility] [place] [id number] Referral ID Status Reason Start Date Expiration Date Visits Requested Visits Authorized [id number] Pending Review Auto-Generat ed Referral 3 01/02/2024 1 1 [facility] for referral (narrative)* Diagnostic Procedure Only (Routine) - Closed Specialty Diagnoses / Procedures Referred By Contesther t Referred To Contact [facility] Diagnoses Encounter for screening mammogram for breast cancer Procedures CESAR SCREENING SCREENING MAMMOGRAPHY BI 2-VIEW BREAST INC CAD Johann Peters MD [facility] [place] [address] [facility] [address] [place] [address] Referral ID Status Reason Start Date Expiration Date V isits Requested Visits Authorized [id number] Closed Auto-Generate d Referral 04/30/2021 05/30/2022 1 1 [facility] for visit Narrative* Diagnostic Procedure Only (Routine) - Closed Specialty Diagnoses / Procedures Referred By Contesther t Referred To Contact [facility] Diagnoses Encounter for screening mammogram for breast cancer Procedures CESAR SCREENING SCREENING MAMMOGRAPHY BI 2-VIEW BREAST INC CAD Johann Peters MD [facility] [place] [address] [facility] [address] [place] [address] Referral ID Status Reason Start Date Expiration Date V isits Requested Visits Authorized [id number] Closed Auto-Generate d Referral 04/30/2021 05/30/2022 1 1 [facility] Summary Purpose Family History No Family History Records FoundNo Family History Records FoundNo Family History Records FoundNo Family History Records FoundNo Family History Records FoundNo Family History Records FoundNo Family History Records FoundNo Family History Records FoundNo Family History Records FoundNo Family History Records Found Advance Directives No Advanced Directives Records FoundDocuments on File Type 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 Advance Directive(s) 01/22/2021 6:49 AM Advance Directive(s) 01/03/2021 1:50 PM Advance Directive(s) 05/11/2019 12:39 PM Advance Directive(s) 10/29/2016 2:32 PM Advance Directive(s) 08/09/2015 7:10 AM Advance Directive(s) 07/24/2015 4:24 PM Documents on File Type 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 Advance Directive(s) 01/22/2021 6:49 AM Advance Directive(s) 01/03/2021 1:50 PM Advance Directive(s) 05/11/2019 12:39 PM Advance Directive(s) 10/29/2016 2:32 PM Advance Directive(s) 08/09/2015 7:10 AM Advance Directive(s) 07/24/2015 4:24 PM Reason for Referral Specialty Diagnoses / Procedures Referred By Contac t Referred To Contact Orthopedics Diagnoses Fall, initial encounter Procedures CONSULT TO ORTHOPAEDICS OFFICE/OUTPATIENT [facility] 60-74 MINUTES Lyla Bravo APRN.HOMICIDE SQUAD [employer]TAIN [address] [place] [address] Referral ID Status Reason Start Date Expiration Date Visits Requested Visits Authorized [id number] Authorized PCP Requested Referral 06/20/2021 06/20/2022 1 1 Specialty Diagnoses / Procedures Referred By Contac t Referred To Contact XR IMAGING Diagnoses Fall, initial encounter Procedures XR TIBIA FIBULA 2V AP/LAT LEFT RADIOLOGIC EXAMINATION TIBIA & FIBULA 2 VIEWS Lyla Bravo APRN.HOMICIDE SQU[employer]TAIN [address] [place] [address] Xr Imaging Referral ID Status Reason Start Date Expiration Date V isits Requested Visits Authorized [id number] Closed Auto-Generate d Referral 06/20/2021 07/20/2022 1 1 Specialty Diagnoses / Procedures Referred By Contac t Referred To Contact XR IMAGING Diagnoses Fall, initial encounter Procedures XR HAND GENERAL 3V PA/LAT/OBL RIGHT RADEX HAND MINIMUM 3 VIEWS Lyla Bravo APRN.H[employer]IC[employer] SQU[employer] [address] [place] [address] Xr Imaging Referral ID Status Reason Start Date Expiration Date V isits Requested Visits Authorized [id number] Closed Auto-Generate d Referral 06/20/2021 07/20/2022 1 1 Specialty Diagnoses / Procedures Referred By Contac t Referred To Contact Pain Management Diagnoses Chronic pain syndrome DDD (degenerative disc disease), lumbar Spinal stenosis, lumbosacral region Procedures CONSULT TO PAIN MGT OFFICE/OUTPATIENT NEW HIGH MDM 60-74 MINUTES Johann Peters MD [address] [place] [address] Referral ID Status Reason Start Date Expiration Date Visits Requested Visits Authorized [id number] Authorized PCP Requested Referral 09/25/2022 09/25/2023 1 1 Additional Source Comments INFORMATION SOURCE (unrecogn ized section and content) DATE CREATED AUTHOR AUTHOR'S ORGANIZ ATION 08/07/2017 [facility] DATE CREATED AUTHOR AUTHOR'S ORGANIZ ATION 03/09/2018 [facility] DATE CREATED AUTHOR AUTHOR'S ORGANIZ ATION 08/14/2018 [facility] DATE CREATED AUTHOR AUTHOR'S ORGANIZ ATION 07/13/2020 [facility] ([place]) DATE CREATED AUTHOR AUTHOR'S ORGANIZ ATION 07/15/2020 [facility] DATE CREATED AUTHOR AUTHOR'S ORGANIZ ATION 05/10/2021 [facility] DATE CREATED AUTHOR AUTHOR'S ORGANIZ ATION 02/12/2022 [facility] DATE CREATED AUTHOR AUTHOR'S ORGANIZ ATION 09/02/2022 [facility] DATE CREATED AUTHOR AUTHOR'S ORGANIZ ATION 03/07/2023 [facility] Source Comments (unrecognize d section and content) In the event this informatio n is protected by the Federal Confidentiality of Alcohol and Drug Abuse Patient Records regulations: The Federal rules restrict any use of the information to criminally investigate or prosecute any alcohol or drug abuse patient.[facility] Center[facility] the event this information is protected by the Federal Confidentiality of Alcohol and Drug Abuse Patient Records regulations: The Federal rules restrict any use of the information to criminally investigate or prosecute any alcohol or drug abuse patient.[facility] CenterIn the event this information is protected by the Federal Confidentiality of Alcohol and Drug Abuse Patient Records regulations: The Federal rules restrict any use of the information to criminally investigate or prosecute any alcohol or drug abuse patient.[facility] CenterIn the event this information is protected by the Federal Confidentiality of Alcohol and Drug Abuse Patient Records regulations: The Federal rules restrict any use of the information to criminally investigate or prosecute any alcohol or drug abuse patient.[facility] CenterIn the event this information is protected by the Federal Confidentiality of Alcohol and Drug Abuse Patient Records regulations: The Federal rules restrict any use of the information to criminally investigate or prosecute any alcohol or drug abuse patient.[facility] CenterIn the event this information is protected by the Federal Confidentiality of Alcohol and Drug Abuse Patient Records regulations: The Federal rules restrict any use of the information to criminally investigate or prosecute any alcohol or drug abuse patient.[facility] CenterIn the event this information is protected by the Federal Confidentiality of Alcohol and Drug Abuse Patient Records regulations: The Federal rules restrict any use of the information to criminally investigate or prosecute any alcohol or drug abuse patient.[facility] CenterIn the event this information is protected by the Federal Confidentiality of Alcohol and Drug Abuse Patient Records regulations: The Federal rules restrict any use of the information to criminally investigate or prosecute any alcohol or drug abuse patient.[facility] CenterIn the event this information is protected by the Federal Confidentiality of Alcohol and Drug Abuse Patient Records regulations: The Federal rules restrict any use of the information to criminally investigate or prosecute any alcohol or drug abuse patient.[facility] CenterIn the event this information is protected by the Federal Confidentiality of Alcohol and Drug Abuse Patient Records regulations: The Federal rules restrict any use of the information to criminally investigate or prosecute any alcohol or drug abuse patient.[facility] CenterIn the event this information is protected by the Federal Confidentiality of Alcohol and Drug Abuse Patient Records regulations: The Federal rules restrict any use of the information to criminally investigate or prosecute any alcohol or drug abuse patient.[facility] CenterIn the event this information is protected by the Federal Confidentiality of Alcohol and Drug Abuse Patient Records regulations: The Federal rules restrict any use of the information to criminally investigate or prosecute any alcohol or drug abuse patient.[facility] CenterIn the event this information is protected by the Federal Confidentiality of Alcohol and Drug Abuse Patient Records regulations: The Federal rules restrict any use of the information to criminally investigate or prosecute any alcohol or drug abuse patient.[facility] CenterIn the event this information is protected by the Federal Confidentiality of Alcohol and Drug Abuse Patient Records regulations: The Federal rules restrict any use of the information to criminally investigate or prosecute any alcohol or drug abuse patient.[facility] CenterIn the event this information is protected by the Federal Confidentiality of Alcohol and Drug Abuse Patient Records regulations: The Federal rules restrict any use of the information to criminally investigate or prosecute any alcohol or drug abuse patient.[facility] CenterIn the event this information is protected by the Federal Confidentiality of Alcohol and Drug Abuse Patient Records regulations: The Federal rules restrict any use of the information to criminally investigate or prosecute any alcohol or drug abuse patient.[facility] CenterIn the event this information is protected by the Federal Confidentiality of Alcohol and Drug Abuse Patient Records regulations: The Federal rules restrict any use of the information to criminally investigate or prosecute any alcohol or drug abuse patient.[facility] CenterIn the event this information is protected by the Federal Confidentiality of Alcohol and Drug Abuse Patient Records regulations: The Federal rules restrict any use of the information to criminally investigate or prosecute any alcohol or drug abuse patient.[facility] CenterIn the event this information is protected by the Federal Confidentiality of Alcohol and Drug Abuse Patient Records regulations: The Federal rules restrict any use of the information to criminally investigate or prosecute any alcohol or drug abuse patient.[facility] CenterIn the event this information is protected by the Federal Confidentiality of Alcohol and Drug Abuse Patient Records regulations: The Federal rules restrict any use of the information to criminally investigate or prosecute any alcohol or drug abuse patient.[facility] CenterIn the event this information is protected by the Federal Confidentiality of Alcohol and Drug Abuse Patient Records regulations: The Federal rules restrict any use of the information to criminally investigate or prosecute any alcohol or drug abuse patient.[facility] CenterIn the event this information is protected by the Federal Confidentiality of Alcohol and Drug Abuse Patient Records regulations: The Federal rules restrict any use of the information to criminally investigate or prosecute any alcohol or drug abuse patient.[facility] CenterIn the event this information is protected by the Federal Confidentiality of Alcohol and Drug Abuse Patient Records regulations: The Federal rules restrict any use of the information to criminally investigate or prosecute any alcohol or drug abuse patient.[facility] CenterIn the event this information is protected by the Federal Confidentiality of Alcohol and Drug Abuse Patient Records regulations: The Federal rules restrict any use of the information to criminally investigate or prosecute any alcohol or drug abuse patient.[facility] CenterIn the event this information is protected by the Federal Confidentiality of Alcohol and Drug Abuse Patient Records regulations: The Federal rules restrict any use of the information to criminally investigate or prosecute any alcohol or drug abuse patient.[facility] CenterIn the event this information is protected by the Federal Confidentiality of Alcohol and Drug Abuse Patient Records regulations: The Federal rules restrict any use of the information to criminally investigate or prosecute any alcohol or drug abuse patient.[facility] CenterIn the event this information is protected by the Federal Confidentiality of Alcohol and Drug Abuse Patient Records regulations: The Federal rules restrict any use of the information to criminally investigate or prosecute any alcohol or drug abuse patient.[facility] CenterIn the event this information is protected by the Federal Confidentiality of Alcohol and Drug Abuse Patient Records regulations: The Federal rules restrict any use of the information to criminally investigate or prosecute any alcohol or drug abuse patient.[facility] CenterIn the event this information is protected by the Federal Confidentiality of Alcohol and Drug Abuse Patient Records regulations: The Federal rules restrict any use of the information to criminally investigate or prosecute any alcohol or drug abuse patient.[facility] CenterIn the event this information is protected by the Federal Confidentiality of Alcohol and Drug Abuse Patient Records regulations: The Federal rules restrict any use of the information to criminally investigate or prosecute any alcohol or drug abuse patient.[facility] CenterIn the event this information is protected by the Federal Confidentiality of Alcohol and Drug Abuse Patient Records regulations: The Federal rules restrict any use of the information to criminally investigate or prosecute any alcohol or drug abuse patient.[facility] CenterIn the event this information is protected by the Federal Confidentiality of Alcohol and Drug Abuse Patient Records regulations: The Federal rules restrict any use of the information to criminally investigate or prosecute any alcohol or drug abuse patient.[facility] CenterIn the event this information is protected by the Federal Confidentiality of Alcohol and Drug Abuse Patient Records regulations: The Federal rules restrict any use of the information to criminally investigate or prosecute any alcohol or drug abuse patient.[facility] CenterIn the event this information is protected by the Federal Confidentiality of Alcohol and Drug Abuse Patient Records regulations: The Federal rules restrict any use of the information to criminally investigate or prosecute any alcohol or drug abuse patient.[facility] CenterIn the event this information is protected by the Federal Confidentiality of Alcohol and Drug Abuse Patient Records regulations: The Federal rules restrict any use of the information to criminally investigate or prosecute any alcohol or drug abuse patient.[facility] CenterIn the event this information is protected by the Federal Confidentiality of Alcohol and Drug Abuse Patient Records regulations: The Federal rules restrict any use of the information to criminally investigate or prosecute any alcohol or drug abuse patient.[facility] CenterIn the event this information is protected by the Federal Confidentiality of Alcohol and Drug Abuse Patient Records regulations: The Federal rules restrict any use of the information to criminally investigate or prosecute any alcohol or drug abuse patient.[facility] CenterIn the event this information is protected by the Federal Confidentiality of Alcohol and Drug Abuse Patient Records regulations: The Federal rules restrict any use of the information to criminally investigate or prosecute any alcohol or drug abuse patient.[facility] CenterIn the event this information is protected by the Federal Confidentiality of Alcohol and Drug Abuse Patient Records regulations: The Federal rules restrict any use of the information to criminally investigate or prosecute any alcohol or drug abuse patient.[facility] CenterIn the event this information is protected by the Federal Confidentiality of Alcohol and Drug Abuse Patient Records regulations: The Federal rules restrict any use of the information to criminally investigate or prosecute any alcohol or drug abuse patient.[facility] CenterIn the event this information is protected by the Federal Confidentiality of Alcohol and Drug Abuse Patient Records regulations: The Federal rules restrict any use of the information to criminally investigate or prosecute any alcohol or drug abuse patient.[facility] CenterIn the event this information is protected by the Federal Confidentiality of Alcohol and Drug Abuse Patient Records regulations: The Federal rules restrict any use of the information to criminally investigate or prosecute any alcohol or drug abuse patient.[facility] CenterIn the event this information is protected by the Federal Confidentiality of Alcohol and Drug Abuse Patient Records regulations: The Federal rules restrict any use of the information to criminally investigate or prosecute any alcohol or drug abuse patient.[facility] CenterIn the event this information is protected by the Federal Confidentiality of Alcohol and Drug Abuse Patient Records regulations: The Federal rules restrict any use of the information to criminally investigate or prosecute any alcohol or drug abuse patient.[facility] CenterIn the event this information is protected by the Federal Confidentiality of Alcohol and Drug Abuse Patient Records regulations: The Federal rules restrict any use of the information to criminally investigate or prosecute any alcohol or drug abuse patient.[facility] CenterIn the event this information is protected by the Federal Confidentiality of Alcohol and Drug Abuse Patient Records regulations: The Federal rules restrict any use of the information to criminally investigate or prosecute any alcohol or drug abuse patient.[facility] CenterIn the event this information is protected by the Federal Confidentiality of Alcohol and Drug Abuse Patient Records regulations: The Federal rules restrict any use of the information to criminally investigate or prosecute any alcohol or drug abuse patient.[facility] CenterIn the event this information is protected by the Federal Confidentiality of Alcohol and Drug Abuse Patient Records regulations: The Federal rules restrict any use of the information to criminally investigate or prosecute any alcohol or drug abuse patient.[facility] CenterIn the event this information is protected by the Federal Confidentiality of Alcohol and Drug Abuse Patient Records regulations: The Federal rules restrict any use of the information to criminally investigate or prosecute any alcohol or drug abuse patient.[facility] CenterIn the event this information is protected by the Federal Confidentiality of Alcohol and Drug Abuse Patient Records regulations: The Federal rules restrict any use of the information to criminally investigate or prosecute any alcohol or drug abuse patient.[facility] CenterIn the event this information is protected by the Federal Confidentiality of Alcohol and Drug Abuse Patient Records regulations: The Federal rules restrict any use of the information to criminally investigate or prosecute any alcohol or drug abuse patient.[facility] CenterIn the event this information is protected by the Federal Confidentiality of Alcohol and Drug Abuse Patient Records regulations: The Federal rules restrict any use of the information to criminally investigate or prosecute any alcohol or drug abuse patient.[facility] CenterIn the event this information is protected by the Federal Confidentiality of Alcohol and Drug Abuse Patient Records regulations: The Federal rules restrict any use of the information to criminally investigate or prosecute any alcohol or drug abuse patient.[facility] CenterIn the event this information is protected by the Federal Confidentiality of Alcohol and Drug Abuse Patient Records regulations: The Federal rules restrict any use of the information to criminally investigate or prosecute any alcohol or drug abuse patient.[facility] CenterIn the event this information is protected by the Federal Confidentiality of Alcohol and Drug Abuse Patient Records regulations: The Federal rules restrict any use of the information to criminally investigate or prosecute any alcohol or drug abuse patient.[facility] CenterIn the event this information is protected by the Federal Confidentiality of Alcohol and Drug Abuse Patient Records regulations: The Federal rules restrict any use of the information to criminally investigate or prosecute any alcohol or drug abuse patient.[facility] CenterIn the event this information is protected by the Federal Confidentiality of Alcohol and Drug Abuse Patient Records regulations: The Federal rules restrict any use of the information to criminally investigate or prosecute any alcohol or drug abuse patient.[facility] CenterIn the event this information is protected by the Federal Confidentiality of Alcohol and Drug Abuse Patient Records regulations: The Federal rules restrict any use of the information to criminally investigate or prosecute any alcohol or drug abuse patient.[facility] CenterIn the event this information is protected by the Federal Confidentiality of Alcohol and Drug Abuse Patient Records regulations: The Federal rules restrict any use of the information to criminally investigate or prosecute any alcohol or drug abuse patient.[facility] CenterIn the event this information is protected by the Federal Confidentiality of Alcohol and Drug Abuse Patient Records regulations: The Federal rules restrict any use of the information to criminally investigate or prosecute any alcohol or drug abuse patient.[facility] CenterIn the event this information is protected by the Federal Confidentiality of Alcohol and Drug Abuse Patient Records regulations: The Federal rules restrict any use of the information to criminally investigate or prosecute any alcohol or drug abuse patient.[facility] CenterIn the event this information is protected by the Federal Confidentiality of Alcohol and Drug Abuse Patient Records regulations: The Federal rules restrict any use of the information to criminally investigate or prosecute any alcohol or drug abuse patient.[facility] CenterIn the event this information is protected by the Federal Confidentiality of Alcohol and Drug Abuse Patient Records regulations: The Federal rules restrict any use of the information to criminally investigate or prosecute any alcohol or drug abuse patient.[facility] CenterIn the event this information is protected by the Federal Confidentiality of Alcohol and Drug Abuse Patient Records regulations: The Federal rules restrict any use of the information to criminally investigate or prosecute any alcohol or drug abuse patient.[facility] CenterIn the event this information is protected by the Federal Confidentiality of Alcohol and Drug Abuse Patient Records regulations: The Federal rules restrict any use of the information to criminally investigate or prosecute any alcohol or drug abuse patient.[facility] CenterIn the event this information is protected by the Federal Confidentiality of Alcohol and Drug Abuse Patient Records regulations: The Federal rules restrict any use of the information to criminally investigate or prosecute any alcohol or drug abuse patient.[facility] CenterIn the event this information is protected by the Federal Confidentiality of Alcohol and Drug Abuse Patient Records regulations: The Federal rules restrict any use of the information to criminally investigate or prosecute any alcohol or drug abuse patient.[facility] Reason for Visit (unrecogniz ed section and content) Reason Comments Refill Request Reason Comments Patient Question Reason Comments left leg and right index finger pain fel l 4 days ago Reason Comments Medtronic Form Pump Supplies and Di abetic Supplies Reason Comments Patient Update Reason Onset Date Comments Refill Request 08/25/2021 Reason Onset Date Comments Refill Request 10/18/2021 Reason Onset Date Comments Refill Request 11/28/2021 Reason Comments Follow Up Reason Comments Radiology US Specialty Diagnoses / Procedures Referred By Contac t Referred To Contact US IMAGING Diagnoses Thyroid nodule Procedures US THYROID/PARATHYROID US SOFT TISSUE HEAD & NECK REAL TIME IMGE Migel Nagle MD [address] [place] [address], [address] [place] [address] Us Imaging Referral ID Status Reason Start Date Expiration Date V isits Requested Visits Authorized [id number] Closed Auto-Generate d Referral 12/02/2021 01/01/2023 1 1 Reason Comments PA--Contour Next Strips 2021 Reason Comments Referral - Kidney Txp Reason Comments Physician Written Order for Medicare Pum p Supplies Medtronic Reason Onset Date Comments Refill Request 01/20/2022 Reason Comments Radiology Pre Procedure Instructions See [employer] message for pre procedural instructions. Reason Onset Date Comments Refill Request 02/17/2022 Reason Comments Insurance Authorization Humulin R u500 Reason Comments Follow Up 6 month Reason Onset Date Comments Refill Request 04/03/2022 Reason Comments PA--CONTOUR NEXT STRIPS 2022 Reason Comments ER F/U [facility] ER Reason Comments Results, Lab Reason Comments Follow Up BP 03/28/22 Reason Comments Consult Oncology Reason Comments Outside Nephrology Reason Comments Outside Lab Results Reason Comments Merfac FORM FOR PROSTHETIC ORTHO TIC AND REPLACEMENT SUPPLIES Reason Comments Consult Cardiology Reason Onset Date Comments Refill Request 08/07/2022 Reason Onset Date Comments Refill Request 08/08/2022 Reason Comments Outside Oncology/Hematology Reason Comments Outside [facility] Ordered Nephrology Report Reason Comments Outside Stress Test Reason Comments ED Follow-up Reason Comments basal rate changes per DR Reason Comments pain referral faxed to outside Reason Comments Imm/Inj Reason Comments Medication Question Reason Comments Outside Hem/Onc Reason Comments Insulin Dependent Diabetes Mellitus Reason Comments Orders A1C before visit Reason Comments outside cardio misc Reason Comments outside Labs and H+P Outside Procedure Reason Comments Outside [facility] Ordered Care Teams (unrecognized sec tion and content) Survey Research Analyst Relationship Specialty Start Date End Date Johann Peters MD [address] [place], [place] [id number] PCP - General Family Practice 05/03/14 Ailin Palacios [address] [place], [place] [id number] Podiatry 02/16/17 Desi Parsons Rheumatology 09/08/18 Israel Beauchamp MD [address] [place] [address] Consulting Orthopedics 01/27/19 Anibal Fry MD [address] [place] [address] Consulting Oncology 01/27/19 [facility] 10/31/16 Survey Research Analyst Relationship Specialty Start Date End Date Johann Peters MD [address] [place], [place] [id number] PCP - General [facility] Practice 05/03/14 Ailin Palacios [address] [place], [place] [id number] Podiatry 02/16/17 Desi Parsons Rheumatology 09/08/18 Israel Beauchamp MD [address] [place] [address] Consulting Orthopedics 01/27/19 Anibal Fry MD [address] [place] [address] Consulting Oncology 01/27/19 [facility] 10/31/16 Survey Research Analyst Relationship Specialty Start Date End Date Johann Peters MD [address] [place], [place] [id number] [phone] PCP - General Family Practice 05/03/14 Ailin Palacios [address] [place], [place] [id number] [phone] Podiatry 02/16/17 Desi Parsons Rheumatology 09/08/18 Israel Beauchamp MD [address] [place] [address] Consulting Orthopedics 01/27/19 Anibal Fry MD [address] [place] [address] Consulting Oncology 01/27/19 [facility] 10/31/16 Survey Research Analyst Relationship Specialty Start Date End Date Johann Peters MD [address] [place] [address] PCP - General Family Practice 05/03/14 Ailin Palacios [address] [place], [place] [id number] [phone] Podiatry 02/16/17 Desi Parsons L Rheumatology 09/08/18 Israel Beauchamp MD [address] [place] [address] Consulting Orthopedics 01/27/19 Anibal Fry MD [address] [place] [address] Consulting Oncology 01/27/19 [facility] 10/31/16 Survey Research Analyst Relationship Specialty Start Date End Date Johann Peters MD [address] [place], [place] [id number] [phone] PCP - General Family Practice 05/03/14 Ailin Palacios [address] [place], [place] [id number] [phone] Podiatry 02/16/17 Desi Parsons Rheumatology 09/08/18 Israel Beauchamp MD [address] [place] [address] Consulting Orthopedics 01/27/19 Anibal Fry MD [address] [place] [address] Consulting Oncology 01/27/19 [facility] 10/31/16 Survey Research Analyst Relationship Specialty Start Date End Date Johann Peters MD [address] [place] [address] PCP - General Family Practice 05/03/14 Ailin Palacios [address] [place], [place] [id number] [phone] Podiatry 02/16/17 Desi Parsons Rheumatology 09/08/18 Israel Beauchamp MD [address] [place] [address] Consulting Orthopedics 01/27/19 Anibal Fry MD [address] [place] [address] Consulting Oncology 01/27/19 [facility] 10/31/16 Survey Research Analyst Relationship Specialty Start Date End Date Johann Peters MD [address] [place], [place] [id number] [phone] PCP - General Family Practice 05/03/14 Ailin Palacios [address] [place], [place] [id number] [phone] Podiatry 02/16/17 Desi Parsons Rheumatology 09/08/18 Israel Beauchamp MD [address] [place] [address] Consulting Orthopedics 01/27/19 Anibal Fry MD [address] [place] [address] Consulting Oncology 01/27/19 [facility] 10/31/16 Survey Research Analyst Relationship Specialty Start Date End Date Johann Peters MD [address] [place] [address] PCP - General Family Practice 05/03/14 Ailin Palacios [address] [place], [place] 642102 [phone] Podiatry 02/16/17 Desi Parsons Rheumatology 09/08/18 Israel Beauchamp MD [address] [place] [address] Consulting Orthopedics 01/27/19 Anibal Fry MD [address] [place] [address] Consulting Oncology 01/27/19 [facility] 10/31/16 Survey Research Analyst Relationship Specialty Start Date End Date Johann Peters MD [address] [place] [address] PCP - General Family Practice 05/03/14 Ailin Palacios [address] [place], [place] [id number] [phone] Podiatry 02/16/17 Desi Parsons Rheumatology 09/08/18 Israel Beauchamp MD [address] [place] [address] Consulting Orthopedics 01/27/19 Anibal Fry MD [address] [place] [address] Consulting Oncology 01/27/19 [facility] 10/31/16 Survey Research Analyst Relationship Specialty Start Date End Date Johann Peters MD [address] [place] [address] PCP - General Family Medicine 05/03/14 Ailin Palacios [address] [place], [place] 338220 [phone] Podiatry 02/16/17 Desi Parsons Rheumatology 09/08/18 Israel Beauchamp MD [address] [place] [address] Consulting Orthopedics 01/27/19 Anibal Fry MD [address] [place] [address] Consulting Oncology 01/27/19 [facility] [place] 10/31/16 Survey Research Analyst Relationship Specialty Start Date End Date Johann Peters MD [address] [place] [address] PCP - General Family Medicine 05/03/14 Ailin Palacios [address] [place] [address] Podiatry 02/16/17 Desi Parsons Rheumatology 09/08/18 Israel Beauchamp MD [address] [place] [address] Consulting Orthopedics 01/27/19 Anibal Fry MD [address] [place] [address] Consulting Oncology 01/27/19 [facility] 10/31/16 Survey Research Analyst Relationship Specialty Start Date End Date Johann Peters MD [address] [place] [address] PCP - General Family Medicine 05/03/14 Ailin Palacios [address] [place] [address] Podiatry 02/16/17 Desi Parsons Rheumatology 09/08/18 Israel Beauchamp MD [address] [place] [address] Consulting Orthopedics 01/27/19 Anibal Fry MD [address] [place] [address] Consulting Oncology 01/27/19 [facility] [place] 10/31/16 Survey Research Analyst Relationship Specialty Start Date End Date Johann Peters MD [address] [place] [address] PCP - General Family Medicine 05/03/14 Ailin Palacios [address] [place], [place] 175264 [phone] Podiatry 02/16/17 Desi Parsons Rheumatology 09/08/18 Israel Beauchamp MD [address] [place] [address] [phone]- Consulting Orthopedics 01/27/19 Anibal Fry MD [address] [place] [address] Consulting Oncology 01/27/19 [facility] 10/31/16 Survey Research Analyst Relationship Specialty Start Date End Date Johann Peters MD [address] [place] [address] PCP - General Family Medicine 05/03/14 Ailin Palacios [address] [place] [address] Podiatry 02/16/17 Desi Parsons Rheumatology 09/08/18 Israel Beauchamp MD [address] [place] [address] [phone]- Consulting Orthopedics 01/27/19 Anibal Fry MD [address] [place] [address] Consulting Oncology 01/27/19 [facility] [place] 10/31/16 Survey Research Analyst Relationship Specialty Start Date End Date Johann Peters MD [address] [place] [address] PCP - General Family Medicine 05/03/14 Ailin Palacios [address] [place], [place] [id number] [phone] Podiatry 02/16/17 Desi Parsons Rheumatology 09/08/18 Israel Beauchamp MD [address] [place] [address] [phone]- Consulting Orthopedics 01/27/19 Anibal Fry MD [address] [place] [address] Consulting Oncology 01/27/19 [facility] 10/31/16 Survey Research Analyst Relationship Specialty Start Date End Date Johann Peters MD [address] [place] [address] PCP - General Family Medicine 05/03/14 Ailin Palacios [address] [place] [address] Podiatry 02/16/17 Desi Parsons Rheumatology 09/08/18 Israel Beauchamp MD [address] [place] [address] Consulting Orthopedics 01/27/19 Anibal Fry MD [address] [place] [address] Consulting Oncology 01/27/19 [facility] [place] 10/31/16 Survey Research Analyst Relationship Specialty Start Date End Date Johann Peters MD [address] [place] [address] PCP - General Family Medicine 05/03/14 Ailin Palacios [address] [place] [address] Podiatry 02/16/17 Desi Parsons [address] [place] [address] Rheumatology 09/08/18 Israel Beauchamp MD [address] [place] [address] Consulting Orthopedics 01/27/19 Anibal Fry MD [address] [place] [address] Consulting Oncology 01/27/19 [facility] [place] 10/31/16 Survey Research Analyst Relationship Specialty Start Date End Date Johann Peters MD [address] [place] [address] PCP - General Family Medicine 05/03/14 Ailin Palacios [address] [place] [address] Podiatry 02/16/17 Desi Parsons [address] [place] [address] Rheumatology 09/08/18 Israel Beauchamp MD [address] [place] [address] Consulting Orthopedics 01/27/19 Anibal Fry MD [address] [place] [address] Consulting Oncology 01/27/19 [facility] [place] 10/31/16 Survey Research Analyst Relationship Specialty Start Date End Date Johann Peters MD [address] [place] [address] PCP - General Family Medicine 05/03/14 Ailin Palacios [address] [place] [address] Podiatry 02/16/17 Desi Parsons [address] [place] [address] Rheumatology 09/08/18 Israel Beauchamp MD [address] [place] [address] Consulting Orthopedics 01/27/19 Anibal Fry MD [address] [place] [address] Consulting Oncology 01/27/19 [facility] [place] 10/31/16 Survey Research Analyst Relationship Specialty Start Date End Date Johann Peters MD [address] [place] [address] PCP - General Family Medicine 05/03/14 Ailin Palacios [address] [place] [address] Podiatry 02/16/17 Desi Parsons [address] [place] [address] Rheumatology 09/08/18 Israel Beauchamp MD [address] [place] [address] Consulting Orthopedics 01/27/19 Anibal Fry MD [address] [place] [address] Consulting Oncology 01/27/19 [facility] [place] 10/31/16 Survey Research Analyst Relationship Specialty Start Date End Date Johann Peters MD [address] [place] [address] PCP - General Family Medicine 05/03/14 Ailin Palacios [address] [place] [address] Podiatry 02/16/17 Desi Parsons [address] [place] [address] Rheumatology 09/08/18 Israel Beauchamp MD [address] [place] [address] Consulting Orthopedics 01/27/19 Anibal Fry MD [address] [place] [address] Consulting Oncology 01/27/19 [facility] [place] 10/31/16 Survey Research Analyst Relationship Specialty Start Date End Date Johann Peters MD [address] [place] [address] PCP - General Family Medicine 05/03/14 Ailin aPlacios [address] [place] [address] Podiatry 02/16/17 JohnlaureenDesi whitten [address] [place] [address] Rheumatology 09/08/18 Israel Beauchamp MD [address] [place] [address] [phone] Consulting Orthopedics 01/27/19 Anibal Fry MD [address] [place] [address] Consulting Oncology 01/27/19 [facility] [place] 10/31/16 Survey Research Analyst Relationship Specialty Start Date End Date Johann Peters MD [address] [place] [address] PCP - General Family Medicine 05/03/14 Ailin Palacios [address] [place] [address] Podiatry 02/16/17 Desi Parsons [address] [place] [address] Rheumatology 09/08/18 Israel Beauchamp MD [address] [place] [address] Consulting Orthopedics 01/27/19 Anibal Fry MD [address] [place] [address] Consulting Oncology 01/27/19 [facility] [place] 10/31/16 Survey Research Analyst Relationship Specialty Start Date End Date Johann Peters MD [address] [place] [address] PCP - General Family Medicine 05/03/14 Ailin Palacios [address] [place] [address] Podiatry 02/16/17 Desi Parsons [address] [place] [address] Rheumatology 09/08/18 Israel Beauchamp MD [address] [place] [address] Consulting Orthopedics 01/27/19 Anibal Fry MD [address] [place] [address] Consulting Oncology 01/27/19 [facility] [place] 10/31/16 Survey Research Analyst Relationship Specialty Start Date End Date Johann Peters MD [address] [place] [address] PCP - General Family Medicine 05/03/14 Ailin Palacios [address] [place] [address] Podiatry 02/16/17 Desi Parsons [address] [place] [address] Rheumatology 09/08/18 Israel Beauchamp MD [address] [place] [address] Consulting Orthopedics 01/27/19 Anibal Fry MD [address] [place] [address] Consulting Oncology 01/27/19 [facility] [place] 10/31/16 Survey Research Analyst Relationship Specialty Start Date End Date Johann Peters MD [address] [place] [address] PCP - General Family Medicine 05/03/14 Ailin Palacios [address] [place] [address] Podiatry 02/16/17 Desi Parsons [address] [place] [address] Rheumatology 09/08/18 Israel Beauchamp MD [address] [place] [address] Consulting Orthopedics 01/27/19 Anibal Fry MD [address] [place] [address] Consulting Oncology 01/27/19 [facility] [place] 10/31/16 Survey Research Analyst Relationship Specialty Start Date End Date Johann Peters MD [address] [place] [address] PCP - General Family Medicine 05/03/14 Ailin Palacios [address] [place] [address] Podiatry 02/16/17 Desi Parsons [address] [place] [address] Rheumatology 09/08/18 Israel Beauchamp MD [address] [place] [address] Consulting Orthopedics 01/27/19 Anibal Fry MD [address] [place] [address] Consulting Oncology 01/27/19 [facility] [place] 10/31/16 Survey Research Analyst Relationship Specialty Start Date End Date Johann Peters MD [address] [place] [address] PCP - General Family Medicine 05/03/14 Ailin Palacios [address] [place] [address] Podiatry 02/16/17 Desi Parsons [address] [place] [address] Rheumatology 09/08/18 Israel Beauchamp MD [address] [place] [address] Consulting Orthopedics 01/27/19 Anibal Fry MD [address] [place] [address] Consulting Oncology 01/27/19 [facility] [place] 10/31/16 Survey Research Analyst Relationship Specialty Start Date End Date Johann Peters MD [address] [place] [address] PCP - General Family Medicine 05/03/14 Ailin Palacios [address] [place] [address] Podiatry 02/16/17 Desi Parsons [address] [place] [address] Rheumatology 09/08/18 Israel Beauchamp MD [address] [place] [address] Consulting Orthopedics 01/27/19 Anibal Fry MD [address] [place] [address] Consulting Oncology 01/27/19 [facility] [place] 10/31/16 Survey Research Analyst Relationship Specialty Start Date End Date Johann Peters MD [address] [place] [address] PCP - General Family Medicine 05/03/14 Ailin Palacios [address] [place] [address] Podiatry 02/16/17 Desi Parsons [address] [place] [address] Rheumatology 09/08/18 Israel Beauchamp MD [address] [place] [address] Consulting Orthopedics 01/27/19 Anibal Fry MD [address] [place] [address] Consulting Oncology 01/27/19 [facility] [place] 10/31/16 Survey Research Analyst Relationship Specialty Start Date End Date Johann Peters MD [address] [place] [address] PCP - General Family Medicine 05/03/14 Ailin Palacios [address] [place] [address] Podiatry 02/16/17 Desi Parsons [address] [place] [address] Rheumatology 09/08/18 Israel Beauchamp MD [address] [place] [address] Consulting Orthopedics 01/27/19 Anibal Fry MD [address] [place] [address] Consulting Oncology 01/27/19 [facility] 10/31/16 Survey Research Analyst Relationship Specialty Start Date End Date Johann Peters MD [address] [place], [place] [id number] [phone] PCP - General Family Medicine 05/03/14 Ailin Palacios [address] [place], [place] [id number] Podiatry 02/16/17 Desi Parsons [address] [place] [address] Rheumatology 09/08/18 Israel Beauchamp MD [address] [place] [address] Consulting Orthopedics 01/27/19 Anibal Fry MD [address] [place] [address] Consulting Oncology 01/27/19 [facility] 10/31/16 Survey Research Analyst Relationship Specialty Start Date End Date Johann Peters MD [address] [place] [address] PCP - General Family Medicine 05/03/14 Ailin Palacios [address] [place], [place] [address] Podiatry 02/16/17 Desi Parsons [address] [place] [address] Rheumatology 09/08/18 Israel Beauchamp MD [address] [place] [address] Consulting Orthopedics 01/27/19 Anibal Fry MD [address] [place] [address] Consulting Oncology 01/27/19 [facility] [place] 10/31/16 Survey Research Analyst Relationship Specialty Start Date End Date Johann Peters MD [address] [facility] [place] [id number] PCP - General Family Medicine 05/03/14 Ailin Palacios [address] [place] [address] Podiatry 02/16/17 Desi Parsons [address] [place] [address] Rheumatology 09/08/18 Israel Beauchamp MD [address] [place] [address] Consulting Orthopedics 01/27/19 Anibal Fry MD [address] [place] [address] Consulting Oncology 01/27/19 [facility] [place] 10/31/16 Survey Research Analyst Relationship Specialty Start Date End Date Johann Peters MD [address] [facility] [place] [address] PCP - General Family Medicine 05/03/14 Ailin Palacios [address] [place] [address] Podiatry 02/16/17 Desi Parsons [address] [place] [address] Rheumatology 09/08/18 Israel Beauchamp MD [address] [place] [address] Consulting Orthopedics 01/27/19 Anibal Fry MD [address] [place] [address] Consulting Oncology 01/27/19 [facility] 10/31/16 Survey Research Analyst Relationship Specialty Start Date End Date Johann Peters MD [address] [place] [address] PCP - General Family Medicine 05/03/14 Ailin Palacios [address] [place] [address] Podiatry 02/16/17 Desi Parsons [address] [place] [address] Rheumatology 09/08/18 Israel Beauchamp MD [address] [place] [address] Consulting Orthopedics 01/27/19 Anibal Fry MD [address] [place] [address] Consulting Oncology 01/27/19 [facility] [place] 10/31/16 Survey Research Analyst Relationship Specialty Start Date End Date Johann Peters MD [address] [place] [address] PCP - General Family Medicine 05/03/14 Ailin Palacios [address] [place] [address] Podiatry 02/16/17 Desi Parsons [address] [place] [address] Rheumatology 09/08/18 Israel Beauchamp MD [address] [place] [address] Consulting Orthopedics 01/27/19 Anibal Fry MD [address] [place] [address] Consulting Oncology 01/27/19 [facility] [place] 10/31/16 Survey Research Analyst Relationship Specialty Start Date End Date Johann Peters MD [address] [place] [address] PCP - General Family Medicine 05/03/14 Ailin Palacios [address] [place] [address] Podiatry 02/16/17 Desi Parsons [address] [place] [address] Rheumatology 09/08/18 Israel Beauchamp MD [address] [place] [address] Consulting Orthopedics 01/27/19 Anibal Fry MD [address] [place] [address] Consulting Oncology 01/27/19 [facility] [place] 10/31/16 Survey Research Analyst Relationship Specialty Start Date End Date Johann Peters MD [address] [facility] [place] [address] PCP - General Family Medicine 05/03/14 Ailin Palacios [address] [place] [address] Podiatry 02/16/17 Desi Parsons [address] [place] [address] Rheumatology 09/08/18 Israel Beauchamp MD [address] [place] [address] Consulting Orthopedics 01/27/19 Anibal Fry MD [address] [place] [address] Consulting Oncology 01/27/19 [facility] [place] 10/31/16 Survey Research Analyst Relationship Specialty Start Date End Date Johann Peters MD [address] [facility] [place] [address] PCP - General Family Medicine 05/03/14 Ailin Palacios [address] [place] [address] Podiatry 02/16/17 Desi Parsons [address] [place] [address] Rheumatology 09/08/18 Israel Beauchamp MD [address] [place] [address] Consulting Orthopedics 01/27/19 Anibal Fry MD [address] [place] [phone] Consulting Oncology 01/27/19 [facility] [facility] 10/31/16 Survey Research Analyst Relationship Specialty Start Date End Date Johann Peters MD [address] [facility] [place] [id number] PCP - General Family Medicine 05/03/14 Ailin Palacios, DPM [address] [place] [address] Podiatry 02/16/17 Desi Parsons [address] [facility] [place] [address] Rheumatology 09/08/18 Israel Beauchamp MD [address] [place] [address] Consulting Orthopedics 01/27/19 Anibal Fry MD [address] [place] [address] [phone] Consulting Oncology 01/27/19 [facility] [place] 10/31/16 Survey Research Analyst Relationship Specialty Start Date End Date Johann Peters MD [address] [place] [place], [place] [id number] PCP - General Family Medicine 05/03/14 Ailin Palacios DPM [address] [place], [place] [id number] Podiatry 02/16/17 Desi Parsons [address] [place] [address] Rheumatology 09/08/18 Israel Beauchamp MD [address] [place] [address] Consulting Orthopedics 01/27/19 Anibal Fry MD [address] [place] [address] Consulting Oncology 01/27/19 [facility] [place] 10/31/16 Survey Research Analyst Relationship Specialty Start Date End Date Johann Peters MD [address] [place] [address] PCP - General Family Medicine 05/03/14 Ailin Palacios, DPM [address] [place] [address] Podiatry 02/16/17 Desi Parsons [address] [place] [address] Rheumatology 09/08/18 Israel Beauchamp MD [address] [place] [address] Consulting Orthopedics 01/27/19 Anibal Fry MD [address] [place] [address] Consulting Oncology 01/27/19 [facility] [place] 10/31/16 Survey Research Analyst Relationship Specialty Start Date End Date Johann Peters MD [address] [place], [place] [address] PCP - General Family Medicine 05/03/14 Ailin Palacios DPM [address] [place] [address] Podiatry 02/16/17 Desi Parsons [address] [place] [address] Rheumatology 09/08/18 Israel Beauchamp MD [address] [place] [address] Consulting Orthopedics 01/27/19 Anibal Fry MD [address] [place] [address] Consulting Oncology 01/27/19 [facility] [place] 10/31/16 Survey Research Analyst Relationship Specialty Start Date End Date Johann Peters MD [address] [place] [address] PCP - General Family Medicine 05/03/14 Ailin Palacios DPM [address] [place] [address] Podiatry 02/16/17 Desi Parsons [address] [place] [address] Rheumatology 09/08/18 Israel Beauchamp MD [address] [place] [address] Consulting Orthopedics 01/27/19 Anibal Fry MD [address] [place] [address] [phone] Consulting Oncology 01/27/19 [facility] [place] 10/31/16 Survey Research Analyst Relationship Specialty Start Date End Date Johann Peters MD [address] [facility] [place] [address] PCP - General Family Medicine 05/03/14 Ailin Palacios DPM [address] [address] Podiatry 02/16/17 Desi Parsons [address] [address] Rheumatology 09/08/18 Israel Beauchamp MD [address] [place] [address] Consulting Orthopedics 01/27/19 Anibal Fry MD [address] [place] [address] Consulting Oncology 01/27/19 [facility] 10/31/16 FOR RECORDS PERTAINING TO PATIENTS WHO ARE OR HAVE BEEN ENROLLED IN A CHEMICAL DEPENDENCY/SUBSTANCEABUSE PROGRAM, SOME INFORMATION MAY BE OMITTED. This clinical summary was aggregated from multiple sources. Caution should be exercised in using it in the provision of clinical care. This summary normalizes information from multiple sources, and as a consequence, information in this document may materially change the coding, format and clinical context of patient data. In addition, data may be omitted in some cases. CLINICAL DECISIONS SHOULD BE BASED ON THE PRIMARY CLINICAL RECORDS. [employer] [facility]. provides no warranty or guarantee of the accuracy or completeness of information in this document.
--- NOTE | 2023-03-23 05:48 | PFTCOMP ---
COMPLETE PULMONARY FUNCTION TEST INTERPRETATION Brief HPI: Patient is a 52-year-old female, currently under the care of Mariza Sandhu, who presents to [facility] for complete pulmonary function tests secondary to diagnosis of COPD. Respiratory therapist reports good effort and reproducible results. Interpretation: Forced expiration spirometry shows moderately severe large airways obstructive ventilatory defect with an FEV1 of 50% predicted. There is no significant bronchodilator response by strict ATS criteria. Spirograms are of good quality and plateau slowly, indicating slowly emptying areas of the lungs. The respiratory flow volume loop shows decreased expiratory flow rates at high lung volumes consistent with small airways obstruction. Lung volumes by body plethysmography show a slightly decreased total lung capacity at 4.16 L, 79% predicted. FRC and RV are elevated out of proportion. Lung volume measurements are consistent with air-trapping. Diffusion capacity by carbon monoxide is decreased at 61% predicted. The airway resistance is elevated. No previous pulmonary function tests were available for review. Impression: Irreversible moderately severe mixed ventilatory defect with a symmetric reduction diffusion capacity
== END | disposition home or self-care (01) ==
PROVIDERS: PCP Family Medicine; Referring Provider Nurse Practitioner Acute Care; Visit Provider Nurse Practitioner Acute Care
DX: J44.9 Chronic obstructive pulmonary disease, unspecified (principal); G47.33 Obstructive sleep apnea (adult) (pediatric)
CPT/HCPCS: 94060; 94726; 94729; 95811

== ENCOUNTER → 2023-03-27 | Outpatient (CLI) | payer MEDICARE, SELFPAY ==
[2023-03-27 15:32] LABS: Anion Gap 8 (5-15); BUN 59 mg/dL (7-18); Calcium,Total 9.3 mg/dL (8.5-10.1); Chloride 103 mmol/L (98-107); Creatinine, Serum 6.55 mg/dL (0.55-1.02); EST Glomerular Filtration Rate 7 mL/min (>60); Est Glom Filt Rate - Afr Amer 9 mL/min (>60); Glucose 164 mg/dL (74-106); Potassium 4.8 mmol/L (3.5-5.1); Sodium Level 138 mmol/L (136-145)
== END | disposition home or self-care (01) ==
LOC: LAB 14:05
PROVIDERS: PCP Family Medicine; Referring Provider Nurse Practitioner Gerontology; Visit Provider Nurse Practitioner Gerontology
DX: E87.5 Hyperkalemia (principal)
CPT/HCPCS: 36415; 80048

== ENCOUNTER → 2023-04-16 | Outpatient (CLI) | payer MEDICARE, SELFPAY ==
--- NOTE | 2023-04-16 14:55 | CT_ITS ---
STUDY: CT CHEST, ABDOMEN T PELVIS WITHOUT CONTRAST REASON FOR EXAM: Female, 52 years old. Chest pain/pressure, elevated tumor marker RADIATION DOSAGE (If Supplied By Facility): CTDIvol = ( 18.54 ) mGy, DLP = ( 1506.80 ) mGycm TECHNIQUE: Transaxial imaging was performed without the administration of intravenous contrast material. Multiplanar coronal and sagittal images were reformatted. Oral contrast administered Individualized dose optimization techniques were used for this CT. COMPARISON: Report from a study from 07/03/2022. FINDINGS: Stable low-density thyroid nodules. CHEST Lung windows show the lungs to be normally expanded. There is a subtle pleural-based noncalcified 4 mm nodule in the right upper lobe on axial image 49. This is too small to characterize. There is a suspicious pleural-based noncalcified nodule in the right lower lobe posteriorly with some associated pleural thickening and pleural reaction concerning for metastasis. This is seen on axial image 77. This measures 1.28 x 1.76 cm. There is no mention of either nodule on the report from the previous study No other suspicious noncalcified mass or nodule. No organized infiltrate or effusion. Normal heart and pericardium. No suspicious bulky axillary, mediastinal, or perihilar adenopathy. Normal unenhanced pulmonary arteries. Normal aorta arch and descending thoracic aorta. Normal osseous structures. ABDOMEN There is hepatomegaly with diffuse hepatic enlargement. There is non-visualization of the gallbladder, which may be secondary to either contraction or a prior cholecystectomy. There is mild splenomegaly. Normal pancreas. Normal bilateral adrenal glands. No obstructive uropathy, or suspicious solid renal lesion. There are simple bilateral renal cysts and none specific inflammatory changes around the periphery of both kidneys. Normal visualized stomach. Normal small intestine. There are a few scattered colonic diverticula without CT evidence of acute diverticulitis. The appendix is visualized and appears normal. Appendix seen on coronal reconstructed images 96-1 04. Normal abdominal aorta. Normal inferior vena cava. Normal retroperitoneum. Normal abdominal wall. Bony structures are unremarkable, no demonstrated fracture, there is a nonspecific area of sclerosis within the left iliac and cortical irregularity in the right iliac both are nonspecific PELVIS Normal urinary bladder. There is no pelvic fluid. There is no pelvic lymphadenopathy or mass lesion. Normal visualized pelvic arteries. Normal abdominal wall. Normal osseous structures. CT/CT Chest, Abd, Pelvis WO Cont IMPRESSION: Suspicious noncalcified pleural-based noncalcified nodule in the posterior right lower lobe measuring 1.76 x 1.28 cm. Too small to characterize noncalcified 4 mm pleural-based right upper lobe nodule No organized infiltrate or effusion Nonspecific hepatosplenomegaly Simple bilateral renal cysts, no specific follow-up needed. Colonic diverticula, no CT evidence of acute diverticulitis. No free intraperitoneal fluid, air, or suspicious adenopathy, normal appendix visualized Stable sclerotic focus in the left iliac, stable lucent irregularity in the right iliac both are unchanged from a PET/CT study from 2015 Electronically Signed: Michael Branham MD at 14:07 EST ,
== END | disposition home or self-care (01) ==
LOC: CT 14:53
PROVIDERS: PCP Family Medicine; Referring Provider Internal Medicine Medical Oncology; Visit Provider Internal Medicine Medical Oncology
DX: R97.8 Other abnormal tumor markers (principal)
CPT/HCPCS: 71250; 74176

== ENCOUNTER 2023-06-04 07:49 | Outpatient (CLI) | payer MEDICARE, SELFPAY ==
[2023-06-04 08:01] VITALS: BP 126/53; PULSE 94; RESP 16; TEMP 36.3; O2SAT 98
[2023-06-04] MEDS: Cosyntropin 0.25 MG Vial IM (08:14)
== END 2023-06-04 07:50 | disposition home or self-care (01) ==
LOC: MEDOUTP 07:49
PROVIDERS: PCP Family Medicine; Referring Provider Internal Medicine Nephrology; Visit Provider Internal Medicine Nephrology
DX: E11.22 Type 2 diabetes mellitus with diabetic chronic kidney disease (principal); N18.6 End stage renal disease; E78.5 Hyperlipidemia, unspecified; I95.1 Orthostatic hypotension
CPT/HCPCS: 36415; 82533; 96372; J0834

== ENCOUNTER 2023-08-11 11:44 | Observation (INO) | payer MEDICARE, SELFPAY ==
[2023-08-11] VITALS (16 sets, daily range): BP systolic 77–113; BP diastolic 43–69; PULSE 76–88; RESP 12–19; TEMP 36.4–37.2; O2SAT 92–100; BMI 33.1; BMI 32.6
--- NOTE | 2023-08-11 13:18 | EDS_ITS ---
HPI History of Present Illness Chief Complaint: Seizure Informant: patient and spouse/S.O. Onset/Context/Timing Onset: Today Context: Sudden Onset Timing: Intermittent and Lasts (Approximately 2 minutes) Quality: Shaking Location: Generalized Worsened by: Nothing Relieved by: Nothing Narrative Narrative: Patient presents with low blood pressure and questionable seizure that occurred today. Patient states she was doing her home dialysis when this occurred. Patient states that her daughter was with her. Patient states that her daughter said that she was shaking all over. reports that this lasted for a couple of minutes. Patient does not remember any of this. Patient denies any history of seizure disorder. Patient states she has been having some pressure in her chest and pain up into her jaw. Patient admits to some nausea and vomiting. Patient denies any sweats. Patient also admits to a headache. [facility] Medical History Blindness Cataract (lens) fragments in eye following cataract surgery, bilateral Acute bronchitis, unspecified Uses prosthesis Seasonal allergies Wears glasses Anxiety Insulin dependent diabetes mellitus Uses wheelchair Arthritis DVT (deep venous thrombosis) History of Holter monitoring High cholesterol TIA (transient ischemic attack) Seizures Dietary restriction History of hiatal hernia Non-smoker CPAP (continuous positive airway pressure) dependence Sleep apnea Shortness of breath on exertion Hypertension History of echocardiogram History of stress test Cardiology follow-up encounter Positive QuantiFERON-TB Gold test Hx of pancreatitis Enteritis Nausea and vomiting Alternating constipation and diarrhea Viral gastroenteritis Acute right flank pain COVID-19 virus detected Pneumonia due to COVID-19 virus Below-knee amputation of left lower extremity Osteomyelitis of left foot History of stroke COPD (chronic obstructive pulmonary disease) IBS (irritable bowel syndrome) Cellulitis of left foot Iron (Fe) deficiency anemia Acute kidney injury Right middle lobe pneumonia Hypomagnesemia Osteomyelitis of right foot Peripheral neuropathy Infection of right great toe due to methicillin resistant Staphylococcus aureus (MRSA) Cellulitis of right foot History of MRSA infection Asthma Pulmonary hypertension SLE (systemic lupus erythematosus) Home Medications ?Medication ?Instructions ?Recorded ?Last Taken ?Type duloxetine 60 mg capsule,delayed 60 mg PO QHS depression 11/26/12 01/19/17 History release insulin regular hum U-500 conc 500 2.2 units subcut CONT insulin pump 10/02/15 01/19/17 History unit/mL subcutaneous soln trazodone 100 mg tablet 150 mg PO QHS sleep 12/27/15 01/18/17 History ergocalciferol (vitamin D2) 1,250 50,000 unit PO QWEEK supplement 01/24/16 01/19/17 History mcg (50,000 unit) capsule albuterol sulfate 2.5 mg/3 mL 2.5 mg inhalation Q4H PRN PRN 06/09/16 09/01/16 History (0.083 %) solution for nebulization Wheezing gabapentin 800 mg tablet 800 mg PO TID neuropathy 05/19/17 Unknown History rosuvastatin 10 mg tablet 40 mg PO QHS cholesterol 06/03/17 Unknown History insulin aspart U-100 100 unit/mL See Protocol subcut ACHS diabetes 07/30/18 Unknown History (3 mL) subcutaneous pen magnesium oxide 400 mg (241.3 mg 400 mg PO DAILYCM supplement 07/30/18 Unknown History magnesium) tablet hydroxyzine pamoate 50 mg capsule 50 mg PO TID PRN Anxiety 02/20/20 Unknown History duloxetine 30 mg capsule,delayed 30 mg PO DAILY depression 05/09/20 Unknown History release omeprazole 20 mg capsule,delayed 40 mg PO DAILY 07/18/21 06/20/22 History release ondansetron 4 mg disintegrating 8 mg PO Q8H PRN PRN Nausea 09/03/21 Unknown History tablet diphenoxylate-atropine 2.5 1 tab PO BID PRN diarrhea #180 tabs 08/04/22 Unknown Rx mg-0.025 mg tablet (Lomotil) hyoscyamine sulfate 0.125 mg tablet 0.125 mg PO BID-QID PRN abdominal 08/04/22 Unknown Rx pain #360 tabs risankizumab-rzaa 360 mg/2.4 mL 360 mg (2.4 mL) subcut .COMPLEX 08/04/22 Unknown Rx (150 mg/mL) subcut wearable #2.4 mL injector (Skyrizi) ursodiol 300 mg capsule 300 mg PO BID LIVER #180 caps 08/04/22 Unknown Rx apixaban 5 mg tablet (Eliquis) 5 mg PO BID #60 tabs 10/14/22 01/24/23 Rx albuterol sulfate 90 mcg/actuation 2 puff inhalation Q4-6H PRN 02/26/23 Unknown History aerosol inhaler (ProAir HFA) shortness of breath or wheezing brimonidine 0.2 % eye drops 1 drp ophthalmic (eye) DAILY 02/26/23 Unknown History calcitriol 0.5 mcg capsule 0.5 mcg PO BID 03/26/23 Unknown History calcium acetate(phosphat bind) 667 2,668 mg PO TID 03/26/23 Unknown History mg capsule iron sucrose 100 mg iron/5 mL 100 mg .Route .weekly 03/26/23 Unknown History intravenous solution (Venofer) epoetin regan-epbx 2,000 unit/mL 2,000 unit subcut QWEEK 05/14/23 Unknown History injection solution (Retacrit) fludrocortisone 0.1 mg tablet 0.1 mg PO DAILY #30 tabs 06/03/23 Unknown Rx metoprolol tartrate 25 mg tablet 25 mg PO BID #180 tabs 06/11/23 Unknown Rx midodrine 10 mg tablet 10 mg PO TID #90 tabs 07/22/23 Unknown Rx doxycycline hyclate 100 mg tablet 100 mg PO BID 08/11/23 08/11/23 History fenofibrate nanocrystallized 48 mg 48 mg PO DAILY 08/11/23 Unknown History tablet hydrocodone-acetaminophen 5-325mg 1 tab PO TID PRN PRN pain 08/11/23 Unknown History 5mg-325mg Allergy/AdvReac Type Severity Reaction Status Date / Time atorvastatin (From Lipitor) AdvReac Severe Vomiting Verified 06/11/23 14:28 oxycodone HCl (From Percocet) AdvReac Severe Vomiting Verified 06/11/23 14:28 Family History Mother Hypertension Cancer skin Grandmother Hypertension Diabetes Brother Cancer NHL Arthritis Brother Arthritis Surgical History S/P arteriovenous (AV) fistula repair S/P arteriovenous (AV) fistula creation History of lithotripsy History of below-knee amputation of left lower extremity History of eye surgery History of temporal artery biopsy History of lymph node biopsy History of liver biopsy Partial nontraumatic amputation of right foot History of amputation of hallux History of carpal tunnel surgery History of hernia repair History of cholecystectomy History of hysterectomy History of tubal ligation Status post transmetatarsal amputation of right foot Social History Smoking Status: Never smoker second hand exposure: Yes alcohol intake: current details: rare substance use type: does not use ROS ROS ED Constitutional Constitutional ED: Denies chills or fever(s) Eyes Eyes: Denies blurry vision or change in vision ENT ENT ED: Denies rhinorrhea or sore throat Cardiovascular Cardiovascular: Reports chest pain; Denies palpitations Respiratory/Chest Respiratory/Chest: Denies cough or dyspnea Gastrointestinal Gastrointestinal: Reports nausea and vomiting Genitourinary Genitourinary ED: Denies dysuria or hematuria Musculoskeletal Musculoskeletal: Reports back pain and neck pain Integumentary Denies abscess or rash Neurologic Neurologic: Reports headache(s); Denies weakness Allergic/Immunologic Allergic/Immunologic ED: Denies mouth swelling or urticaria EXAM Physical Exam Const Vital Signs: 08/11/23 11:49 08/11/23 11:49 08/11/23 12:44 Temperature 98.6 F Temperature Source Oral Pulse Rate 80 78 Respiratory Rate 12 18 Respiratory Effort Short of Breath Blood Pressure 97/54 L 77/50 L Blood Pressure Mean 68 59 Pulse Ox 97 96 Oxygen Delivery Method Room Air Room Air Oxygen Flow Rate (L/min) 08/11/23 13:00 08/11/23 13:17 08/11/23 14:00 Temperature Temperature Source Pulse Rate 80 77 76 Respiratory Rate 16 16 12 Respiratory Effort Blood Pressure 85/60 L 105/64 84/43 L Blood Pressure Mean 68 77 56 Pulse Ox 93 95 95 Oxygen Delivery Method Room Air Room Air Room Air Oxygen Flow Rate (L/min) 08/11/23 14:05 08/11/23 14:21 08/11/23 14:48 Temperature 98.4 F 98.4 F Temperature Source Oral Oral Pulse Rate 76 81 88 Respiratory Rate 15 12 15 Respiratory Effort Blood Pressure 84/43 L 93/57 L 98/66 Blood Pressure Mean 56 69 76 Pulse Ox 92 97 100 Oxygen Delivery Method Room Air Room Air Nasal Cannula Oxygen Flow Rate (L/min) 2 08/11/23 15:00 08/11/23 15:07 08/11/23 15:23 Temperature 97.5 F L 98.5 F Temperature Source Oral Oral Pulse Rate 82 87 Respiratory Rate 19 H 17 Respiratory Effort Blood Pressure 99/60 87/52 L 113/69 Blood Pressure Mean 73 63 83 Pulse Ox 100 100 Oxygen Delivery Method Nasal Cannula Oxygen Flow Rate (L/min) 2 2 08/11/23 16:00 Temperature Temperature Source Pulse Rate 80 Respiratory Rate 12 Respiratory Effort Blood Pressure 101/62 Blood Pressure Mean 75 Pulse Ox 100 Oxygen Delivery Method Nasal Cannula Oxygen Flow Rate (L/min) 2 Positive well nourished and well developed General Appearance ED: well developed and NAD HEENT Reports moist mucous membranes Neck supple and no JVD Resp normal respiratory effort and clear to auscultation bilaterally Cardio regular rate and regular rhythm GI non-tender and non-distended Palpation: soft Extremity normal to inspection Neuro oriented x3, CN's II-XII intact bilaterally and no sensory deficits noted Sensorium / Orientation: alert Motor Exam: strength 5/5 throughout Psych mental status grossly normal MDM MDM MDM Narrative Medical decision making narrative: Differential diagnosis includes cardiac dysrhythmia, cardiac ischemia, electrolyte abnormality, hypovolemia, stroke, seizure, intracranial mass, and viral illness. EKG will be obtained to assess for cardiac dysrhythmia and cardiac ischemia. CT scan of the brain will be obtained to assess for stroke and intracranial mass. Chest x-ray will be obtained to assess for pneumonia and congestive heart failure. CBC will be obtained to assess for leukocytosis and anemia. Basic metabolic profile will be obtained to assess for electrolyte abnormality and renal function. High-sensitivity troponin will be obtained to assess for cardiac ischemia. History & Record Review Additional record(s) reviewed:: Prior labs Lab Data Attestation: I reviewed the patient's lab results. Lab results narrative: CBC was reviewed. There is a mild leukocytosis of 12.2. Hemoglobin was 11.3 and hematocrit was 35.6. Platelets were normal. PT with INR and PTT were reviewed. Pro time was 16.1 and INR is 1.3. PTT was normal at 27.7. Basic metabolic profile was reviewed. Sodium was slightly low at 131. Chloride was 93. BUN was slightly elevated at 39 and creatinine was 5.77. These are consistent with previous results. Glucose was slightly elevated at 133. Initial high-sensitivity troponin was reviewed and was normal at 8. Serum lactate was reviewed and was slightly elevated at 2.1. Urinalysis was reviewed. Leukocyte esterase was 500 but there were 0-5 white blood cells. There is 1+ bacteria. COVID-19 PCR was reviewed and was negative. Influenza PCR was reviewed and was negative for influenza A and influenza B. RSV PCR was reviewed and was negative. Labs: Laboratory Results - last 24 hr 08/11/23 08/11/23 08/11/23 12:35 13:30 14:44 WBC 12.2 H RBC 3.57 L Hgb 11.3 L Hct 35.6 L MCV 99.7 H MCH 31.7 MCHC 31.7 L RDW Std Deviation 55.9 H RDW Coeff of Michael 15.6 H Plt Count 184 MPV 11.3 Immature Gran % (Auto) 1.100 H Neut % (Auto) 78.8 H Lymph % (Auto) 11.5 L [place] % (Auto) 7.3 Eos % (Auto) 1.1 Baso % (Auto) 0.2 Absolute Neuts (auto) 9.6 H Absolute Lymphs (auto) 1.41 Nucleated RBC % 0 Differential Comment SCANNED PT 16.1 H INR 1.3 APTT 27.7 Sodium 131 L Potassium 4.3 Chloride 93 L Carbon Dioxide 28.0 Anion Gap 10 BUN 39 H Creatinine 5.77 H Estim Creat Clear Calc 13.11 Est GFR (MDRD) Af Amer 10 L Est GFR (MDRD) Non-Af 8 L BUN/Creatinine Ratio 6.8 L Glucose 133 H Lactic Acid 2.1 H* Calcium 9.5 Troponin I High Sens 8 Urine Color Yellow Urine Clarity Cloudy Urine pH 5.0 Ur Specific [place] 1.030 Urine Protein 100 H Urine Glucose (UA) 50 H Urine Ketones 5 H Urine Occult Blood 25 H Urine Nitrite Negative Urine Bilirubin 1 H Urine Urobilinogen Normal Ur Leukocyte Esterase 500 H Urine RBC 0-5 SEEN Urine WBC 0-5 SEEN Ur Squamous Epith Cells 0 SEEN Urine Bacteria 1+ Urine Mucus 0 SEEN Radiography Chest X-Ray - ED: 1 View, Read by ED Physician, Read by Radiologist and No Acute Disease Diagnostic Testing: Clinical Impression(s) from Imaging Studies Brain CT 08/11/23 13:24 IMPRESSION: No acute abnormality is seen. Electronically Signed: Naun Bethea MD at 14:15 EDT , Chest X-Ray 08/11/23 13:50 IMPRESSION: No acute abnormality is seen. Electronically Signed: Naun Bethea MD at 14:18 EDT , Portable 1 view chest x-ray was obtained. On my independent interpretation, lung garrison are clear. There is normal cardiac silhouette. Bony thorax is normal. There is no acute process noted. Radiologist also interpreted the x- ray and agrees. CT scan of the brain was obtained. There is no acute intracranial abnormality. This was interpreted by the radiologist and was also independently reviewed by myself. EKG Initial EKG: Attestation: I personally reviewed and interpreted this EKG as follows: Interpretation: Sinus Rhythm (78) and Non-Specific ST Changes Comments: EKG was obtained. On my independent interpretation, it showed a normal sinus rhythm with a rate of 78. LA interval, QRS interval, and QTc intervals were all normal. [place] is borderline left axis deviation at -20. There are nonspecific ST-T wave changes. Prior EKG tracings: available for review Prior: Unchanged (06/11/2023) Management Discussion w/another healthcare provider: Hospitalist Treatment and Re-Evaluation :: Patient was given some IV fluids. It is unclear if this is related to sepsis or possible new onset seizure. Patient was started on Zosyn and vancomycin to cover for sepsis. Blood cultures and urine cultures were obtained prior to that. Patient is feeling better on reevaluation. Patient's blood pressure has improved. Case was discussed with the hospitalist. He will admit the patient for observation. Patient and family understood and were agreeable with the plan. All questions were answered. Discharge Plan Triage Chief Complaint: Seizure Other Complaint: Chest Pain ED Provider: Mikey Sandoval Dx/Rx/DC Orders Clinical Impression: Syncope and collapse, CKD (chronic kidney disease), Hypotension Prescriptions: No Action omeprazole 20 mg capsule,delayed release(DR/EC) 40 mg PO DAILY ondansetron 4 mg tablet,disintegrating 8 mg PO Q8H PRN PRN (Reason: Nausea) brimonidine 0.2 % drops 1 drp ophthalmic (eye) DAILY Patient Comments: INSTILL 1 DROP INTO BOTH EYES TWICE A DAY DIRECTED albuterol sulfate [ProAir HFA] 90 mcg/actuation HFA aerosol inhaler 2 puff inhalation Q4-6H PRN (Reason: shortness of breath or wheezing) calcitriol 0.5 mcg capsule 0.5 mcg PO BID calcium acetate(phosphat bind) 667 mg capsule 2,668 mg PO TID Patient Comments: take 4 caps with meals Venofer 100 mg iron/5 mL solution 100 mg .Route .weekly Rx Instructions: 100 mg WEEKLY; Retacrit 2,000 unit/mL solution 2,000 unit subcut QWEEK metoprolol tartrate 25 mg tablet 25 mg PO BID Qty: 180 3RF duloxetine 60 MG capsule 60 mg PO QHS Patient Comments: DEPRESSION AND PAIN CONTROL insulin regular hum U-500 conc 20 ML solution 2.2 units SC CONT Patient Comments: insulin pump Rx Instructions: changed site today 02/19/20 trazodone 100 MG tablet 150 mg PO QHS Patient Comments: SLEEP ergocalciferol (vitamin D2) 50,000 UNIT capsule 50,000 unit PO QWEEK Patient Comments: supplement albuterol sulfate 2.5 MG/3 ML solution for nebulization 2.5 mg INHALATION Q4H PRN PRN (Reason: Wheezing) Patient Comments: shortness of breath gabapentin 800 MG tablet 800 mg PO TID Patient Comments: nerve pain rosuvastatin 10 mg tablet 40 mg PO QHS magnesium oxide 400 MG tablet 400 mg PO DAILYCM insulin aspart U-100 100 UNITS/ML insulin pen See Protocol SC ACHS Protocol: 6. Sliding Scale Insulin Custom Condition: mg/dl range Dose/Route: Number of Units Protocol Text: Custom Sliding Scale Patient Comments: if blood sugar is over 200. calculate reading over 200. divide in half and give that many units of insulin. duloxetine 30 mg capsule,delayed release(DR/EC) 30 mg PO DAILY hydroxyzine pamoate 50 MG capsule 50 mg PO TID PRN (Reason: Anxiety) doxycycline hyclate 100 mg tablet 100 mg PO BID fenofibrate nanocrystallized 48 mg tablet 48 mg PO DAILY hydrocodone-acetaminophen 5-325 mg tablet 1 tab PO TID PRN PRN (Reason: pain) ursodiol 300 mg capsule 300 mg PO BID Qty: 180 3RF diphenoxylate-atropine [Lomotil] 2.5-0.025 mg tablet 1 tab PO BID PRN (Reason: diarrhea) Qty: 180 3RF hyoscyamine sulfate 0.125 mg tablet 0.125 mg PO BID-QID PRN (Reason: abdominal pain) Qty: 360 3RF Skyrizi 360 mg/2.4 mL (150 mg/mL) wearable injector 360 mg subcut .COMPLEX Qty: 2.4 6RF Rx Instructions: 360 mg subcutaneously every 8 weeks; Eliquis 5 mg tablet 5 mg PO BID Qty: 60 11RF fludrocortisone 0.1 mg tablet 0.1 mg PO DAILY Qty: 30 3RF midodrine 10 mg tablet 10 mg PO TID Qty: 90 1RF Rx Instructions: do not give last dose of day after 6PM or within 4 hrs of bedtime Primary Care Provider: Johann Jimenez Referrals: Johann Jimenez MD [Primary Care Provider] - Print Language: Ecuadorean Disposition Disposition: Acute Care Hospital [facility]
--- NOTE | 2023-08-11 13:24 | CT_ITS ---
STUDY: CT BRAIN WITHOUT CONTRAST REASON FOR EXAM: Female, 53 years old. Seizure. On dialysis. RADIATION DOSAGE (If Supplied By Facility): CTDIvol = ( 44.99 ) mGy, DLP = ( 762.36 ) mGycm TECHNIQUE: Transaxial CT imaging of the brain was performed without administration of intravenous contrast material. Individualized dose optimization techniques were used for this CT. COMPARISON: No relevant priors. FINDINGS: Normal soft tissue structures. Normal calvarium. Normal size ventricles and extra-axial spaces for the patient''s age. Normal white matter tracts of the cerebral hemispheres. Normal basal ganglia and thalami. Normal brainstem. Normal cerebellum. Punctate calcification in the anterior roof of the third ventricle. This may represent focal calcification in a colloid cyst. There is no intracranial hemorrhage. There are no findings of an acute ischemic infarction. Normal visualized paranasal sinuses. CT/Brain/Head without Contrast IMPRESSION: No acute abnormality is seen. Electronically Signed: Naun Bethea MD at 14:15 EDT ,
--- NOTE | 2023-08-11 13:24 | EKG12_ITS ---
Test Reason : Blood Pressure : / mmHG Vent. Rate : 078 BPM Atrial Rate : 078 BPM P-R Int : 144 ms QRS Dur : 088 ms QT Int : 414 ms P-R-T Axes : 066 -20 086 degrees QTc Int : 471 ms Normal sinus rhythm Nonspecific ST and T wave abnormality Abnormal ECG Confirmed by Neftali Hernandez ([id number]), brands editor MELISSA TAVERAS ([id number]) on 08/12/2023 9:18:34 AM Referred By: Confirmed By:Neftali Hernandez
[2023-08-11] MEDS: 0.9% Normal Saline (500mL Bag) 500 ML 1000 ML IV ×2 (13:30→14:20)
[2023-08-11 13:33] LABS: Absolute Lymphocyte Count 1.41 X10^3/uL (0.83-4.51); Absolute Neutrophil Count 9.6 X10^3/uL (2.0-7.7); Basophil# 0.03 X10^3/uL; Basophil% 0.2 % (0-1); Eosinophil# 0.14 X10^3/uL; Eosinophils% 1.1 % (0-5); Hematocrit 35.6 % (37-47); Hemoglobin 11.3 g/dL (12.0-15.0); Lymphocyte # 1.41 X10^3/ul (0.83-4.51); Lymphocyte % 11.5 % (19-41); Mean Corp Hgb Conc 31.7 g/dL (32-36); Mean Corpuscular Hgb 31.7 pg (27.0-32.0); Mean Corpuscular Volume 99.7 fL (81-99); Mean Platelet Vol. 11.3 fl (6.2-12.0); Monocyte# 0.89 X10^3/uL; Monocyte% 7.3 % (0-10); NRBC Flagged by Analyzer 0 % (0-5); Neutrophil # 9.62 X10^3/uL (2.7-7.7); Neutrophil % 78.8 % (47-70); POSITIVE COUNT YES; Platelet Count 184 K/mm3 (150-450); RBC Distribution Width CV 15.6 % (11.6-14.6); RBC Distribution Width SD 55.9 fl (35.1-43.9); Red Blood Count 3.57 M/mm3 (4.2-5.4); White Blood Count 12.2 K/mm3 (4.4-11.0)
[2023-08-11 13:35] LABS: International Normalized Ratio 1.3; Prothrombin Time (Protime)PT. 16.1 SECONDS (11.7-14.9)
[2023-08-11 13:36] LABS: Partial Thromboplast Time 27.7 Seconds (24.1-36.2)
[2023-08-11 13:48] LABS: Anion Gap 10 (5-15); BUN 39 mg/dL (7-18); BUN/Creat Ratio 6.8 RATIO (10-20); Calcium,Total 9.5 mg/dL (8.5-10.1); Chloride 93 mmol/L (98-107); Creatinine, Serum 5.77 mg/dL (0.55-1.02); EST Glomerular Filtration Rate 8 mL/min (>60); Est Glom Filt Rate - Afr Amer 10 mL/min (>60); Estimated Creatinine Clearance 13.11 ml/min; Glucose 133 mg/dL (74-106); Potassium 4.3 mmol/L (3.5-5.1); Sodium Level 131 mmol/L (136-145); Troponin-I HS 8 pg/mL (3.0-54.0)
--- NOTE | 2023-08-11 13:50 | RAD_ITS ---
STUDY: X-RAY CHEST REASON FOR EXAM: Female, 53 years old. Dyspnea TECHNIQUE: Single AP portable view of the chest. COMPARISON: Comparison is made with prior study dated December 16, 2022. FINDINGS: EKG electrodes are seen. Electrodes from a spinal cord stimulating device are seen at the T7-T8 level. The lungs are clear and expanded. There is no demonstrated pleural abnormality. Normal size heart. Normal mediastinum and andres. Normal visualized pulmonary arteries. Normal visualized aortic arch and descending thoracic aorta. Normal visualized thoracic spine. Normal visualized ribs, clavicles, and shoulders. There is no demonstrated abnormality of the visualized soft tissue structures of the upper abdomen. RAD/Chest 1 View (Portable) IMPRESSION: No acute abnormality is seen. Electronically Signed: Naun Bethea MD at 14:18 EDT ,
[2023-08-11 14:03] LABS: Differential Comment SCANNED; Differential Indicated SCAN CRITERIA MET
[2023-08-11 14:04] LABS: Lactic Acid 2.1 mmol/L (0.4-1.9)
[2023-08-11] MEDS: Piperacil/Tazobactam 4.5 GM in 0.9% Normal Saline (100mL MB+) 100 ML IV (14:50)
[2023-08-11 14:51] LABS: Mucous, Urine 0 SEEN /hpf (<or=2+); Squamous Epithelial Cells - UA 0 SEEN /hpf (5-10)
[2023-08-11 15:18] LABS: Color, Urine Yellow (Yellow); Glucose, Dipstick 50 mg/dl (Normal); Ketone-Dipstick 5 mg/dl (Negative); Leukocyte Esterase-Dipstick 500 /ul (Negative); Nitrite-Dipstick Negative (Negative); Occult Blood-Urine 25 /ul (Negative); Protein-Dipstick 100 mg/dl (Negative); Urine Clarity Cloudy (Clear); Urine Urobilinogen Normal (Normal)
[2023-08-11 15:34] LABS: Urine Bilirubin Dipstick 1 mg/dL (Negative)
[2023-08-11 15:45] LABS: Bacteria 1+ /hpf (None Seen); Red Blood Cells-Urine 0-5 SEEN /hpf (0-5); White Blood Cells 0-5 SEEN /hpf (0-5)
[2023-08-11] MEDS: Vancomycin HCl 2,000 MG in 0.9% Normal Saline (500mL Bag) 500 ML 250 MG IV (15:50)
[2023-08-11 17:35] LABS: Reflex Lactate? Y
[2023-08-11 18:35] LABS: Lactic Acid 1.2 mmol/L (0.4-1.9)
[2023-08-11] MEDS: 0.9% Saline Lock 10 ML Syringe IV ×2 (18:37→21:26)
[2023-08-11] MEDS: Ondansetron ODT 4 MG Tablet 8 MG PO (18:39)
[2023-08-11] MEDS: HYDROcodone Bitartrate/Apap 5/325 Tablet PO (18:51)
--- NOTE | 2023-08-11 19:47 | PCM.HP.STD ---
HPI - General General Date of Admission: 08/11/23 Date of Service: 08/11/23 Chief Complaint: Seizure-like activity HPI Narrative FORD HESTER, is a 53 F who presents to the emergency [facility] for evaluation of seizure-like activity which occurred at home during the patient's home dialysis session. Patient's daughter saw the activity and she states that her arms and legs jumped and her eyes rolled toward the back of her head, she was unresponsive for a brief period of time (minutes) and that she woke up and was alert. Patient had a past history of seizure disorder when she was a child but she has had no adult seizure diagnosis. Patient has multiple medical problems which include end-stage renal disease, type 2 diabetes, essential hypertension, Crohn's disease, and MASLD. Patient was noted to be hypotensive in the emergency room and she was given IV fluid. Labs obtained on the patient included a CBC which was remarkable for a white blood cell count of 12.2, hemoglobin was 11.3, sodium was 131, creatinine was 5.7, BUN was 39, and lactic acid was 2.1. Urinalysis did not indicate a urinary tract infection-there was only +1 bacteria in the urine, chest x-ray showed no evidence of pneumonia. Brain CT showed no acute abnormality. I had a discussion with the patient and her family, she got midway through her dialysis today so I do not know if she needs dialysis tomorrow. According to the , tomorrow would be her off day-she is only dialyzed 5 times a week. I tried to contact Dr. Gandhi but was unable to reach her, I will write for consultation for her tomorrow. Patient will be placed in observation status on PCU, blood sugars will be monitored, she will be seen by teleneurology and an EEG was ordered. [facility] Medical History Blindness Cataract (lens) fragments in eye following cataract surgery, bilateral Acute bronchitis, unspecified Uses prosthesis Seasonal allergies Wears glasses Anxiety Insulin dependent diabetes mellitus Uses wheelchair Arthritis DVT (deep venous thrombosis) History of Holter monitoring High cholesterol TIA (transient ischemic attack) Seizures Dietary restriction History of hiatal hernia Non-smoker CPAP (continuous positive airway pressure) dependence Sleep apnea Shortness of breath on exertion Hypertension History of echocardiogram History of stress test Cardiology follow-up encounter Positive QuantiFERON-TB Gold test Hx of pancreatitis Enteritis Nausea and vomiting Alternating constipation and diarrhea Viral gastroenteritis Acute right flank pain COVID-19 virus detected Pneumonia due to COVID-19 virus Below-knee amputation of left lower extremity Osteomyelitis of left foot History of stroke COPD (chronic obstructive pulmonary disease) IBS (irritable bowel syndrome) Cellulitis of left foot Iron (Fe) deficiency anemia Acute kidney injury Right middle lobe pneumonia Hypomagnesemia Osteomyelitis of right foot Peripheral neuropathy Infection of right great toe due to methicillin resistant Staphylococcus aureus (MRSA) Cellulitis of right foot History of MRSA infection Asthma Pulmonary hypertension SLE (systemic lupus erythematosus) Home Medications ?Medication ?Instructions ?Recorded ?Last Taken ?Type duloxetine 60 mg capsule,delayed 60 mg PO QHS depression 11/26/12 01/19/17 History release insulin regular hum U-500 conc 500 2.2 units subcut CONT insulin pump 10/02/15 01/19/17 History unit/mL subcutaneous soln trazodone 100 mg tablet 150 mg PO QHS sleep 12/27/15 01/18/17 History ergocalciferol (vitamin D2) 1,250 50,000 unit PO QWEEK supplement 01/24/16 01/19/17 History mcg (50,000 unit) capsule albuterol sulfate 2.5 mg/3 mL 2.5 mg inhalation Q4H PRN PRN 06/09/16 09/01/16 History (0.083 %) solution for nebulization Wheezing gabapentin 800 mg tablet 800 mg PO TID neuropathy 05/19/17 Unknown History rosuvastatin 10 mg tablet 40 mg PO QHS cholesterol 06/03/17 Unknown History insulin aspart U-100 100 unit/mL See Protocol subcut ACHS diabetes 07/30/18 Unknown History (3 mL) subcutaneous pen magnesium oxide 400 mg (241.3 mg 400 mg PO DAILYCM supplement 07/30/18 Unknown History magnesium) tablet hydroxyzine pamoate 50 mg capsule 50 mg PO TID PRN Anxiety 02/20/20 Unknown History duloxetine 30 mg capsule,delayed 30 mg PO DAILY depression 05/09/20 Unknown History release omeprazole 20 mg capsule,delayed 40 mg PO DAILY 07/18/21 06/20/22 History release ondansetron 4 mg disintegrating 8 mg PO Q8H PRN PRN Nausea 09/03/21 Unknown History tablet diphenoxylate-atropine 2.5 1 tab PO BID PRN diarrhea #180 tabs 08/04/22 Unknown Rx mg-0.025 mg tablet (Lomotil) hyoscyamine sulfate 0.125 mg tablet 0.125 mg PO BID-QID PRN abdominal 08/04/22 Unknown Rx pain #360 tabs risankizumab-rzaa 360 mg/2.4 mL 360 mg (2.4 mL) subcut .COMPLEX 08/04/22 Unknown Rx (150 mg/mL) subcut wearable #2.4 mL injector (Skyrizi) ursodiol 300 mg capsule 300 mg PO BID LIVER #180 caps 08/04/22 Unknown Rx apixaban 5 mg tablet (Eliquis) 5 mg PO BID blood thinner #60 tabs 10/14/22 01/24/23 Rx albuterol sulfate 90 mcg/actuation 2 puff inhalation Q4-6H PRN 02/26/23 Unknown History aerosol inhaler (ProAir HFA) shortness of breath or wheezing brimonidine 0.2 % eye drops 1 drp ophthalmic (eye) DAILY 02/26/23 Unknown History calcitriol 0.5 mcg capsule 0.5 mcg PO BID 03/26/23 Unknown History calcium acetate(phosphat bind) 667 2,668 mg PO TID binder 03/26/23 Unknown History mg capsule iron sucrose 100 mg iron/5 mL 100 mg .Route .weekly 03/26/23 Unknown History intravenous solution (Venofer) epoetin regan-epbx 2,000 unit/mL 2,000 unit subcut QWEEK 05/14/23 Unknown History injection solution (Retacrit) fludrocortisone 0.1 mg tablet 0.1 mg PO DAILY #30 tabs 06/03/23 Unknown Rx metoprolol tartrate 25 mg tablet 25 mg PO BID #180 tabs 06/11/23 Unknown Rx midodrine 10 mg tablet 10 mg PO TID #90 tabs 07/22/23 Unknown Rx doxycycline hyclate 100 mg tablet 100 mg PO BID 08/11/23 08/11/23 History fenofibrate nanocrystallized 48 mg 48 mg PO DAILY 08/11/23 Unknown History tablet hydrocodone-acetaminophen 5-325mg 1 tab PO TID PRN PRN pain 08/11/23 Unknown History 5mg-325mg Allergy/AdvReac Type Severity Reaction Status Date / Time atorvastatin (From Lipitor) AdvReac Severe Vomiting Verified 06/11/23 14:28 oxycodone HCl (From Percocet) AdvReac Severe Vomiting Verified 06/11/23 14:28 Family History Mother Hypertension Cancer skin Grandmother Hypertension Diabetes Brother Cancer NHL Arthritis Brother Arthritis Surgical History S/P arteriovenous (AV) fistula repair S/P arteriovenous (AV) fistula creation History of lithotripsy History of below-knee amputation of left lower extremity History of eye surgery History of temporal artery biopsy History of lymph node biopsy History of liver biopsy Partial nontraumatic amputation of right foot History of amputation of hallux History of carpal tunnel surgery History of hernia repair History of cholecystectomy History of hysterectomy History of tubal ligation Status post transmetatarsal amputation of right foot Social History Smoking Status: Never smoker second hand exposure: Yes alcohol intake: current details: rare substance use type: does not use ROS Constitutional Constitutional: Denies anorexia, change in weight, chills, fatigue, fever(s), malaise, night sweats or weakness Eyes Eyes: Denies blurry vision, change in vision, discharge from eye(s) or eye pain Cardiovascular Cardiovascular: Denies chest pain, claudication, edema or palpitations Respiratory/Chest Respiratory/Chest: Denies cough, hemoptysis, shortness of breath at rest or shortness of breath with exertion Gastrointestinal Gastrointestinal: Denies abdominal pain, constipation, diarrhea, hematemesis, hematochezia, melena, nausea or vomiting Genitourinary Genitourinary: Denies dysuria, hematuria, urinary frequency, urinary hesitancy, urinary incontinence or urinary urgency Musculoskeletal Musculoskeletal: Denies back pain, joint pain, joint stiffness, joint swelling, myalgias or neck pain Neurologic Neurologic: Reports seizure-like activity; Denies abnormal gait, abnormal speech, dizziness, focal weakness, headache(s), loss of vision, numbness, other visual disturbances, paresthesias, syncope or tingling Psychiatric Psychiatric: Denies anxiety, cognitive impairment, depression, irritability, mood swings or suicidal ideation Endocrine Endocrinology: Denies change in body appearance, cold intolerance, excessive sweating, heat intolerance, polydipsia or polyuria Hematologic/Lymphatic Hematologic/Lymphatic: Denies none, anemia, easy bleeding, easy bruising or lymphadenopathy Allergic/Immunologic Allergic/Immunologic: Denies rhinitis, urticaria, eczemia or asthma Vital Signs Vital Signs Vital Signs: 08/11/23 11:49 08/11/23 11:49 08/11/23 12:44 Temperature 98.6 F Temperature Source Oral Pulse Rate 80 78 Respiratory Rate 12 18 Respiratory Effort Short of Breath Respiratory Depth Respiratory Pattern Blood Pressure 97/54 L 77/50 L Blood Pressure Mean 68 59 Blood Pressure Source Blood Pressure Position Blood Pressure Location Pulse Ox 97 96 Oxygen Delivery Method Room Air Room Air Oxygen Flow Rate (L/min) 08/11/23 13:00 08/11/23 13:17 08/11/23 14:00 Temperature Temperature Source Pulse Rate 80 77 76 Respiratory Rate 16 16 12 Respiratory Effort Respiratory Depth Respiratory Pattern Blood Pressure 85/60 L 105/64 84/43 L Blood Pressure Mean 68 77 56 Blood Pressure Source Blood Pressure Position Blood Pressure Location Pulse Ox 93 95 95 Oxygen Delivery Method Room Air Room Air Room Air Oxygen Flow Rate (L/min) 08/11/23 14:05 08/11/23 14:21 08/11/23 14:48 Temperature 98.4 F 98.4 F Temperature Source Oral Oral Pulse Rate 76 81 88 Respiratory Rate 15 12 15 Respiratory Effort Respiratory Depth Respiratory Pattern Blood Pressure 84/43 L 93/57 L 98/66 Blood Pressure Mean 56 69 76 Blood Pressure Source Blood Pressure Position Blood Pressure Location Pulse Ox 92 97 100 Oxygen Delivery Method Room Air Room Air Nasal Cannula Oxygen Flow Rate (L/min) 2 08/11/23 15:00 08/11/23 15:07 08/11/23 15:23 Temperature 97.5 F L 98.5 F Temperature Source Oral Oral Pulse Rate 82 87 Respiratory Rate 19 H 17 Respiratory Effort Respiratory Depth Respiratory Pattern Blood Pressure 99/60 87/52 L 113/69 Blood Pressure Mean 73 63 83 Blood Pressure Source Blood Pressure Position Blood Pressure Location Pulse Ox 100 100 Oxygen Delivery Method Nasal Cannula Oxygen Flow Rate (L/min) 2 2 08/11/23 16:00 08/11/23 16:45 08/11/23 17:28 Temperature 98.2 F 99.0 F Temperature Source Oral Pulse Rate 80 84 81 Respiratory Rate 12 19 H 17 Respiratory Effort Respiratory Depth Respiratory Pattern Blood Pressure 101/62 91/54 L 96/57 L Blood Pressure Mean 75 66 70 Blood Pressure Source Monitor Blood Pressure Position Semi-Fowlers Blood Pressure Location Right Forearm Pulse Ox 100 98 100 Oxygen Delivery Method Nasal Cannula Nasal Cannula Oxygen Flow Rate (L/min) 2 2 08/11/23 18:42 Temperature Temperature Source Pulse Rate Respiratory Rate Respiratory Effort Normal Non-Labored Respiratory Depth Normal Respiratory Pattern Normal Blood Pressure Blood Pressure Mean Blood Pressure Source Blood Pressure Position Blood Pressure Location Pulse Ox Oxygen Delivery Method Nasal Cannula Oxygen Flow Rate (L/min) 2 Weight Weight: 91.7 kg Body Mass Index (BMI) 32.6 Physical Exam Const alert, oriented x3, no apparent distress and healthy appearing General Appearance: cooperative, well kempt and well developed Orientation / Consciousness: awake, oriented to person, oriented to place and oriented to time HEENT normocephalic, head/scalp atraumatic, hearing grossly normal bilaterally and moist oral mucous membranes Eyes PERRL, EOMs intact bilaterally and conjunctivae normal Neck supple, no JVD, thyroid normal and no carotid bruits General: trachea midline Resp normal respiratory effort, no retractions, no use of accessory muscles and clear to auscultation bilaterally Auscultation: Negative for rales, rhonchi or wheezes Cardio regular rate, regular rhythm, S1 normal heart sound, S2 normal heart sound, no murmurs, no rub and no gallops GI normal to inspection, nondistended, normoactive bowel sounds, soft to palpation, non-tender and non-distended Extremity Extremity Narrative: Patient has a left below the knee amputation. Skin no rashes or lesions noted General Skin Exam: no breakdown Neuro oriented x3, CN's II-XII intact bilaterally, no focal motor deficits and no sensory deficits noted Sensorium / Orientation: awake and alert Speech: speech normal Psych affect normal Results Lab / Micro Data 08/11/23 12:35 08/11/23 12:35 Labs: Laboratory Results - last 24 hr 08/11/23 12:35: WBC 12.2 H, RBC 3.57 L, Hgb 11.3 L, Hct 35.6 L, MCV 99.7 H, MCH 31.7, MCHC 31.7 L, RDW Std Deviation 55.9 H, RDW Coeff of Michael 15.6 H, Plt Count 184, MPV 11.3, Immature Gran % (Auto) 1.100 H, Neut % (Auto) 78.8 H, Lymph % (Auto) 11.5 L, [place] % (Auto) 7.3, Eos % (Auto) 1.1, Baso % (Auto) 0.2, Absolute Neuts (auto) 9.6 H, Absolute Lymphs (auto) 1.41, Nucleated RBC % 0, Differential Comment SCANNED, PT 16.1 H, INR 1.3, APTT 27.7, Sodium 131 L, Potassium 4.3, Chloride 93 L, Carbon Dioxide 28.0, Anion Gap 10, BUN 39 H, Creatinine 5.77 H, Estim Creat Clear Calc 13.11, Est GFR (MDRD) Af Amer 10 L, Est GFR (MDRD) Non-Af 8 L, BUN/Creatinine Ratio 6.8 L, Glucose 133 H, Calcium 9.5, Troponin I High Sens 8 08/11/23 13:30: Lactic Acid 2.1 H* 08/11/23 14:44: Urine Color Yellow, Urine Clarity Cloudy, Urine pH 5.0, Ur Specific [place] 1.030, Urine Protein 100 H, Urine Glucose (UA) 50 H, Urine Ketones 5 H, Urine Occult Blood 25 H, Urine Nitrite Negative, Urine Bilirubin 1 H, Urine Urobilinogen Normal, Ur Leukocyte Esterase 500 H, Urine RBC 0-5 SEEN, Urine WBC 0-5 SEEN, Ur Squamous Epith Cells 0 SEEN, Urine Bacteria 1+, Urine Mucus 0 SEEN 08/11/23 17:54: Lactic Acid 1.2 Micro: Microbiology 08/11/23 13:31 Mucosa - Nose SARS-CoV-2, Influenza & RSV (PCR) - Final Imaging Radiology Impression Brain CT 08/11/23 13:24 IMPRESSION: No acute abnormality is seen. Electronically Signed: Naun Bethea MD at 14:15 EDT , Chest X-Ray 08/11/23 13:50 IMPRESSION: No acute abnormality is seen. Electronically Signed: Naun Bethea MD at 14:18 EDT , Assessment & Plan Assessment/Plan (1) Seizure-like activity: PLAN: Plan 1. Seizure like activity-etiology unclear, I do not feel that the patient had a postictal period after talking with the patient's daughter who witnessed the event. Patient will be placed in observation status on PCU, she will be seen by teleneurology and she will be monitored on telemetry. #2 type 2 diabetes-patient has an insulin pump with U-500 insulin, this will be maintained while she is in the hospital, fingerstick blood sugars will be monitored #3 hypotension-I am reluctant to give the patient any additional fluid at the present time, blood pressure will be monitored, nephrology will see the patient in consultation #4 end-stage renal disease-patient will be seen by nephrology #5 chronic depression-patient is on Cymbalta Total clinical time spent by myself addressing the patient's medical issues, reviewing all of her data, and collaborating with patient's care team: 55 minutes Charges/Coding Visit Charges Inpatient E&M: 38827 Init Hosp L2
[2023-08-11] MEDS: Metoprolol Tartrate 25 MG Tablet PO (21:27)
[2023-08-11] MEDS: Ursodiol 250 MG Tablet PO (21:27)
[2023-08-11] MEDS: Gabapentin 800 MG Tablet PO (21:27)
[2023-08-11] MEDS: traZODone 50 MG Tablet 150 MG PO (21:28)
[2023-08-11] MEDS: Doxycycline 100 MG CAPSULE PO (21:28)
[2023-08-11] MEDS: DULoxetine Hcl 60 MG Capsule PO (21:28)
[2023-08-11] MEDS: APIXABAN 5 MG TABLET PO (21:29)
[2023-08-11 22:05] LABS: Bedside Glucose 89 mg/dL (74-106)
[2023-08-12] VITALS (17 sets, daily range): BP systolic 95–263; BP diastolic 54–79; PULSE 76–90; RESP 16–18; TEMP 36.5–37.4; O2SAT 91–100; BMI 33.0; BMI 32.9
[2023-08-12] MEDS: Gabapentin 800 MG Tablet PO (06:28)
[2023-08-12 07:48] LABS: Bedside Glucose 44 mg/dL (74-106)
[2023-08-12 07:48] LABS: Bedside Glucose 88 mg/dL (74-106)
[2023-08-12 07:48] LABS: Bedside Glucose 61 mg/dL (74-106)
[2023-08-12 07:48] LABS: Bedside Glucose 36 mg/dL (74-106)
[2023-08-12] MEDS: Magnesium Chloride 64 MG Delay Rel.Tablet 128 MG PO (08:00)
[2023-08-12 08:01] LABS: Absolute Lymphocyte Count 1.21 X10^3/uL (0.83-4.51); Basophil# 0.01 X10^3/uL; Basophil% 0.1 % (0-1); Eosinophil# 0.09 X10^3/uL; Eosinophils% 1.3 % (0-5); Hematocrit 30.5 % (37-47); Hemoglobin 9.7 g/dL (12.0-15.0); Lymphocyte # 1.21 X10^3/ul (0.83-4.51); Lymphocyte % 17.4 % (19-41); Mean Corp Hgb Conc 31.8 g/dL (32-36); Mean Corpuscular Hgb 32.1 pg (27.0-32.0); Mean Platelet Vol. 10.7 fl (6.2-12.0); Monocyte# 0.51 X10^3/uL; Monocyte% 7.3 % (0-10); NRBC Flagged by Analyzer 0 % (0-5); Neutrophil # 5.03 X10^3/uL (2.7-7.7); Neutrophil % 72.6 % (47-70); Platelet Count 134 K/mm3 (150-450); RBC Distribution Width CV 15.7 % (11.6-14.6); Red Blood Count 3.02 M/mm3 (4.2-5.4); White Blood Count 6.9 K/mm3 (4.4-11.0)
[2023-08-12] MEDS: Calcium Acetate 667 MG Capsule 2668 MG PO ×3 (08:01→17:35)
[2023-08-12] MEDS: Midodrine HCl 5 MG Tablet 10 MG PO ×3 (08:01→17:35)
[2023-08-12] MEDS: Fludrocortisone Acetate 0.1 MG Tablet PO (08:01)
--- NOTE | 2023-08-12 08:43 | PCM.CONS.R ---
Assessment & Plan Assessment/Plan (1) ESRD (end stage renal disease) on dialysis: PLAN: on home hemodialysis 5 days/week. Dialysis today (2) Seizure-like activity: PLAN: EEG today (3) Hypotension: PLAN: on midodrine and florinef (4) Leukocytosis: PLAN: with low grade fever, pancx (5) Syncope and collapse: (6) Atrial fibrillation, controlled: PLAN: rate controlled (7) Anemia in chronic kidney disease (CKD): QUALIFIERS: Chronic kidney disease stage: stage 4 (severe) Qualified Code(s): N18.4 - Chronic kidney disease, stage 4 (severe); D63.1 - Anemia in chronic kidney disease PLAN: KURT on dialysis (8) Crohn's disease: QUALIFIERS: Digestive disease complication type: without complication Gastrointestinal tract location: small intestine Qualified Code(s): K50.00 - Crohn's disease of small intestine without complications (9) Diabetes mellitus: QUALIFIERS: Diabetes mellitus type: type 2 PLAN: on insulin, BKA (10) SLE (systemic lupus erythematosus): (11) Pulmonary hypertension: (12) Peripheral neuropathy: HPI Consult Data Date of Consult: 08/12/23 HPI Narrative Reason for Consultation: ESRD on home hemodialysis HPI Narrative: FORD HESTER, is a 53 F well known to me with ESRD due to diabetes on home hemodialysis 5x/week presents with seizure like activity on dialysis yesterday at home. She denies history of seizures. She received half her treatment yeseterday before terminated early. She has chronically low BP's on midodrine. She received iv fluids for low BP in ED yeseterday. Recently had a nerve stimulator placed few weeks ago. Denied back pain, fever, chills. WBC elevated with low grade fever on admission. She was on doxycycline for mild erythema around her battery site on buttocks. Otherwise she is feeling better today. Undergoing EEG this morning. [facility] Medical History Blindness Cataract (lens) fragments in eye following cataract surgery, bilateral Acute bronchitis, unspecified Uses prosthesis Seasonal allergies Wears glasses Anxiety Insulin dependent diabetes mellitus Uses wheelchair Arthritis DVT (deep venous thrombosis) History of Holter monitoring High cholesterol TIA (transient ischemic attack) Seizures Dietary restriction History of hiatal hernia Non-smoker CPAP (continuous positive airway pressure) dependence Sleep apnea Shortness of breath on exertion Hypertension History of echocardiogram History of stress test Cardiology follow-up encounter Positive QuantiFERON-TB Gold test Hx of pancreatitis Enteritis Nausea and vomiting Alternating constipation and diarrhea Viral gastroenteritis Acute right flank pain COVID-19 virus detected Pneumonia due to COVID-19 virus Below-knee amputation of left lower extremity Osteomyelitis of left foot History of stroke COPD (chronic obstructive pulmonary disease) IBS (irritable bowel syndrome) Cellulitis of left foot Iron (Fe) deficiency anemia Acute kidney injury Right middle lobe pneumonia Hypomagnesemia Osteomyelitis of right foot Peripheral neuropathy Infection of right great toe due to methicillin resistant Staphylococcus aureus (MRSA) Cellulitis of right foot History of MRSA infection Asthma Pulmonary hypertension SLE (systemic lupus erythematosus) Home Medications ?Medication ?Instructions ?Recorded ?Last Taken ?Type duloxetine 60 mg capsule,delayed 60 mg PO QHS depression 11/26/12 01/19/17 History release insulin regular hum U-500 conc 500 2.2 units subcut CONT insulin pump 10/02/15 01/19/17 History unit/mL subcutaneous soln trazodone 100 mg tablet 150 mg PO QHS sleep 12/27/15 01/18/17 History ergocalciferol (vitamin D2) 1,250 50,000 unit PO QWEEK supplement 01/24/16 01/19/17 History mcg (50,000 unit) capsule albuterol sulfate 2.5 mg/3 mL 2.5 mg inhalation Q4H PRN PRN 06/09/16 09/01/16 History (0.083 %) solution for nebulization Wheezing gabapentin 800 mg tablet 800 mg PO TID neuropathy 05/19/17 Unknown History rosuvastatin 10 mg tablet 40 mg PO QHS cholesterol 06/03/17 Unknown History insulin aspart U-100 100 unit/mL See Protocol subcut ACHS diabetes 07/30/18 Unknown History (3 mL) subcutaneous pen magnesium oxide 400 mg (241.3 mg 400 mg PO DAILYCM supplement 07/30/18 Unknown History magnesium) tablet hydroxyzine pamoate 50 mg capsule 50 mg PO TID PRN Anxiety 02/20/20 Unknown History duloxetine 30 mg capsule,delayed 30 mg PO DAILY depression 05/09/20 Unknown History release omeprazole 20 mg capsule,delayed 40 mg PO DAILY 07/18/21 06/20/22 History release ondansetron 4 mg disintegrating 8 mg PO Q8H PRN PRN Nausea 09/03/21 Unknown History tablet diphenoxylate-atropine 2.5 1 tab PO BID PRN diarrhea #180 tabs 08/04/22 Unknown Rx mg-0.025 mg tablet (Lomotil) hyoscyamine sulfate 0.125 mg tablet 0.125 mg PO BID-QID PRN abdominal 08/04/22 Unknown Rx pain #360 tabs risankizumab-rzaa 360 mg/2.4 mL 360 mg (2.4 mL) subcut .COMPLEX 08/04/22 Unknown Rx (150 mg/mL) subcut wearable #2.4 mL injector (Skyrizi) ursodiol 300 mg capsule 300 mg PO BID LIVER #180 caps 08/04/22 Unknown Rx apixaban 5 mg tablet (Eliquis) 5 mg PO BID blood thinner #60 tabs 10/14/22 01/24/23 Rx albuterol sulfate 90 mcg/actuation 2 puff inhalation Q4-6H PRN 02/26/23 Unknown History aerosol inhaler (ProAir HFA) shortness of breath or wheezing brimonidine 0.2 % eye drops 1 drp ophthalmic (eye) DAILY 02/26/23 Unknown History calcitriol 0.5 mcg capsule 0.5 mcg PO BID 03/26/23 Unknown History calcium acetate(phosphat bind) 667 2,668 mg PO TID binder 03/26/23 Unknown History mg capsule iron sucrose 100 mg iron/5 mL 100 mg .Route .weekly 03/26/23 Unknown History intravenous solution (Venofer) epoetin regan-epbx 2,000 unit/mL 2,000 unit subcut QWEEK 05/14/23 Unknown History injection solution (Retacrit) fludrocortisone 0.1 mg tablet 0.1 mg PO DAILY #30 tabs 06/03/23 Unknown Rx metoprolol tartrate 25 mg tablet 25 mg PO BID #180 tabs 06/11/23 Unknown Rx midodrine 10 mg tablet 10 mg PO TID #90 tabs 07/22/23 Unknown Rx doxycycline hyclate 100 mg tablet 100 mg PO BID 08/11/23 08/11/23 History fenofibrate nanocrystallized 48 mg 48 mg PO DAILY 08/11/23 Unknown History tablet hydrocodone-acetaminophen 5-325mg 1 tab PO TID PRN PRN pain 08/11/23 Unknown History 5mg-325mg Allergy/AdvReac Type Severity Reaction Status Date / Time atorvastatin (From Lipitor) AdvReac Severe Vomiting Verified 06/11/23 14:28 oxycodone HCl (From Percocet) AdvReac Severe Vomiting Verified 06/11/23 14:28 Family History Mother Hypertension Cancer skin Grandmother Hypertension Diabetes Brother Cancer NHL Arthritis Brother Arthritis Surgical History S/P arteriovenous (AV) fistula repair S/P arteriovenous (AV) fistula creation History of lithotripsy History of below-knee amputation of left lower extremity History of eye surgery History of temporal artery biopsy History of lymph node biopsy History of liver biopsy Partial nontraumatic amputation of right foot History of amputation of hallux History of carpal tunnel surgery History of hernia repair History of cholecystectomy History of hysterectomy History of tubal ligation Status post transmetatarsal amputation of right foot Social History Smoking Status: Never smoker second hand exposure: Yes alcohol intake: current details: rare substance use type: does not use ROS ROS Narrative confusion yesterday at time of seizure like activity Constitutional Constitutional: Denies chills or fever(s) Eyes Eyes: Denies loss of vision Cardiovascular Cardiovascular: Reports syncope; Denies chest pain Gastrointestinal Gastrointestinal: Denies abdominal pain, anorexia or diarrhea Genitourinary Genitourinary: Reports oliguria and other Musculoskeletal Musculoskeletal: Reports other Details: left BKA Neurologic Neurologic: Reports seizures and syncope Psychiatric Psychiatric: Denies anxiety or confusion Hematologic/Lymphatic Hematologic/Lymphatic: Reports anemia Physical Exam Const alert and oriented x3 General Appearance: well developed HEENT normocephalic Resp clear to auscultation bilaterally Cardio Cardio Narrative: hx afib GI non-tender and non-distended Auscultation: normoactive bowel sounds Palpation: soft Extremity no clubbing, cyanosis or edema Extremity Narrative: BKA General Extremity: AV fistula Neuro CN's II-XII intact bilaterally, moves all extremities and no focal motor deficits Psych cooperative Lab / Micro Data 08/12/23 07:45 08/12/23 07:45 Labs: Laboratory Results - last 24 hr 08/11/23 12:35: WBC 12.2 H, RBC 3.57 L, Hgb 11.3 L, Hct 35.6 L, MCV 99.7 H, MCH 31.7, MCHC 31.7 L, RDW Std Deviation 55.9 H, RDW Coeff of Michael 15.6 H, Plt Count 184, MPV 11.3, Immature Gran % (Auto) 1.100 H, Neut % (Auto) 78.8 H, Lymph % (Auto) 11.5 L, [place] % (Auto) 7.3, Eos % (Auto) 1.1, Baso % (Auto) 0.2, Absolute Neuts (auto) 9.6 H, Absolute Lymphs (auto) 1.41, Nucleated RBC % 0, Differential Comment SCANNED, PT 16.1 H, INR 1.3, APTT 27.7, Sodium 131 L, Potassium 4.3, Chloride 93 L, Carbon Dioxide 28.0, Anion Gap 10, BUN 39 H, Creatinine 5.77 H, Estim Creat Clear Calc 13.11, Est GFR (MDRD) Af Amer 10 L, Est GFR (MDRD) Non-Af 8 L, BUN/Creatinine Ratio 6.8 L, Glucose 133 H, Calcium 9.5, Troponin I High Sens 8 08/11/23 13:30: Lactic Acid 2.1 H* 08/11/23 14:44: Urine Color Yellow, Urine Clarity Cloudy, Urine pH 5.0, Ur Specific [place] 1.030, Urine Protein 100 H, Urine Glucose (UA) 50 H, Urine Ketones 5 H, Urine Occult Blood 25 H, Urine Nitrite Negative, Urine Bilirubin 1 H, Urine Urobilinogen Normal, Ur Leukocyte Esterase 500 H, Urine RBC 0-5 SEEN, Urine WBC 0-5 SEEN, Ur Squamous Epith Cells 0 SEEN, Urine Bacteria 1+, Urine Mucus 0 SEEN 08/11/23 17:54: Lactic Acid 1.2 08/11/23 21:18: POC Glucose 89 08/12/23 06:21: POC Glucose 36 L* 08/12/23 06:41: POC Glucose 44 L* 08/12/23 07:02: POC Glucose 61 L 08/12/23 07:29: POC Glucose 88 08/12/23 07:45: WBC 6.9, RBC 3.02 L, Hgb 9.7 L, Hct 30.5 L, MCV 101.0 H, MCH 32.1 H, MCHC 31.8 L, RDW Std Deviation 57.0 H, RDW Coeff of Michael 15.7 H, Plt Count 134 L, MPV 10.7, Immature Gran % (Auto) 1.300 H, Neut % (Auto) 72.6 H, Lymph % (Auto) 17.4 L, [place] % (Auto) 7.3, Eos % (Auto) 1.3, Baso % (Auto) 0.1, Absolute Neuts (auto) 5.0, Absolute Lymphs (auto) 1.21, Nucleated RBC % 0 Micro: Microbiology 08/11/23 13:31 Mucosa - Nose SARS-CoV-2, Influenza & RSV (PCR) - Final Imaging Radiology Impression Brain CT 08/11/23 13:24 IMPRESSION: No acute abnormality is seen. Electronically Signed: Naun Bethea MD at 14:15 EDT , Chest X-Ray 08/11/23 13:50 IMPRESSION: No acute abnormality is seen. Electronically Signed: Naun Bethea MD at 14:18 EDT ,
[2023-08-12 08:48] LABS: ALB/GLOB Ratio 0.6 RATIO (0.9-2.4); AST(SGOT) 17 U/L (15-37); Alanine Aminotransfer ALT/SGPT 19 U/L (13-56); Albumin, Serum 3.1 g/dL (3.2-5.0); Alkaline Phosphatase 67 U/L (45-117); Anion Gap 10 (5-15); BUN 48 mg/dL (7-18); BUN/Creat Ratio 6.8 RATIO (10-20); Calcium,Total 8.6 mg/dL (8.5-10.1); Chloride 98 mmol/L (98-107); Creatinine, Serum 7.06 mg/dL (0.55-1.02); EST Glomerular Filtration Rate 7 mL/min (>60); Est Glom Filt Rate - Afr Amer 8 mL/min (>60); Estimated Creatinine Clearance 10.63 ml/min; Globulin 5.1 g/dL (2.2-4.2); Glucose 118 mg/dL (74-106); Potassium 4.4 mmol/L (3.5-5.1); Protein, Total 8.2 g/dL (6.4-8.2); Sodium Level 135 mmol/L (136-145)
--- NOTE | 2023-08-12 09:13 | PN.HOSP_ITS ---
Reason for Visit Reason for Visit: Diagnoses Unspecified convulsions (08/11/23) Subjective Subjective Feels okay. Does dialysis at home 5 days a week and almost every time, patient has periods where she is almost difficult to wake her up but this most recent episode was the most severe. Objective Data Objective Data Vital Signs: Vital Signs Temp Pulse Resp BP Pulse Ox O2 Del Method O2 Flow Rate 36.5 C L 76 18 96/54 L 98 CPAP 2 08/12/23 04:12 08/12/23 04:12 08/12/23 04:12 08/12/23 04:12 08/12/23 04:12 08/12/23 04:17 08/11/23 21:21 Oxygen Flow Rate (L/min) 2 Oxygen Delivery Method CPAP Weight: 91.7 kg Body Mass Index (BMI) 32.6 Intake & Output: Intake and Output for Last 24 Hours 08/10/23 08/11/23 08/12/23 23:59 23:59 23:59 Intake Total 2039 / 2039 400 / 400 Balance 2039 / 2039 400 / 400 Lab / Micro Data 08/12/23 07:45 08/12/23 07:45 Labs: Laboratory Results - last 24 hr 08/11/23 12:35: WBC 12.2 H, RBC 3.57 L, Hgb 11.3 L, Hct 35.6 L, MCV 99.7 H, MCH 31.7, MCHC 31.7 L, RDW Std Deviation 55.9 H, RDW Coeff of Michael 15.6 H, Plt Count 184, MPV 11.3, Immature Gran % (Auto) 1.100 H, Neut % (Auto) 78.8 H, Lymph % (Auto) 11.5 L, [place] % (Auto) 7.3, Eos % (Auto) 1.1, Baso % (Auto) 0.2, Absolute Neuts (auto) 9.6 H, Absolute Lymphs (auto) 1.41, Nucleated RBC % 0, Differential Comment SCANNED, PT 16.1 H, INR 1.3, APTT 27.7, Sodium 131 L, Potassium 4.3, C hloride 93 L, Carbon Dioxide 28.0, Anion Gap 10, BUN 39 H, Creatinine 5.77 H, Estim Creat Clear Calc 13.11, Est GFR (MDRD) Af Amer 10 L, Est GFR (MDRD) Non-Af 8 L, BUN/Creatinine Ratio 6.8 L, Glucose 133 H, Calcium 9.5, Troponin I High Sens 8 08/11/23 13:30: Lactic Acid 2.1 H* 08/11/23 14:44: Urine Color Yellow, Urine Clarity Cloudy, Urine pH 5.0, Ur Specific [place] 1.030, Urine Protein 100 H, Urine Glucose (UA) 50 H, Urine Ketones 5 H, Urine Occult Blood 25 H, Urine Nitrite Negative, Urine Bilirubin 1 H, Urine Urobilinogen Normal, Ur Leukocyte Esterase 500 H, Urine RBC 0-5 SEEN, Urine WBC 0-5 SEEN, Ur Squamous Epith Cells 0 SEEN, Urine Bacteria 1+, Urine Mucus 0 SEEN 08/11/23 17:54: Lactic Acid 1.2 08/11/23 21:18: POC Glucose 89 08/12/23 06:21: POC Glucose 36 L* 08/12/23 06:41: POC Glucose 44 L* 08/12/23 07:02: POC Glucose 61 L 08/12/23 07:29: POC Glucose 88 08/12/23 07:45: WBC 6.9, RBC 3.02 L, Hgb 9.7 L, Hct 30.5 L, MCV 101.0 H, MCH 32.1 H, MCHC 31.8 L, RDW Std Deviation 57.0 H, RDW Coeff of Michael 15.7 H, Plt Count 134 L, MPV 10.7, Immature Gran % (Auto) 1.300 H, Neut % (Auto) 72.6 H, L ymph % (Auto) 17.4 L, [place] % (Auto) 7.3, Eos % (Auto) 1.3, Baso % (Auto) 0.1, Absolute Neuts (auto) 5.0, Absolute Lymphs (auto) 1.21, Nucleated RBC % 0, S odium 135 L, Potassium 4.4, Chloride 98, Carbon Dioxide 27.0, Anion Gap 10, BUN 48 H, Creatinine 7.06 H, Estim Creat Clear Calc 10.63, Est GFR (MDRD) Af Amer 8 L, Est GFR (MDRD) Non-Af 7 L, BUN/Creatinine Ratio 6.8 L, Glucose 118 H, Calcium 8.6, Total Bilirubin 0.70, AST 17, ALT 19, Alkaline Phosphatase 67, Total Protein 8.2, Albumin 3.1 L, Globulin 5.1 H, Albumin/Globulin Ratio 0.6 L Micro: Microbiology 08/11/23 13:31 Mucosa - Nose SARS-CoV-2, Influenza & RSV (PCR) - Final Radiography Diagnostic Testing: Radiology Impression Brain CT 08/11/23 13:24 IMPRESSION: No acute abnormality is seen. Electronically Signed: Naun Bethea MD at 14:15 EDT , Chest X-Ray 08/11/23 13:50 IMPRESSION: No acute abnormality is seen. Electronically Signed: Naun Bethea MD at 14:18 EDT , Physical Exam Const alert and no apparent distress HEENT head/scalp atraumatic and moist oral mucous membranes Resp normal respiratory effort, no retractions, no use of accessory muscles and clear to auscultation bilaterally Cardio regular rate, regular rhythm, S1 normal heart sound and S2 normal heart sound GI normal to inspection, nondistended, normoactive bowel sounds, soft to palpation, non-tender and non-distended Neuro Sensorium / Orientation: awake and alert Assessment & Plan Assessment/Plan (1) Seizure-like activity: PLAN: Plan Syncopal episode * Not seizure. EEG negative. * Seen by [facility] teleneurology who does not feel the patient did have a seizure this is more likely convulsive syncope. * Family reports that patient gets dialysis daily at home and can be unresponsive at times so patient may be having vagal episodes that are less severe than this time. Chronic conditions * type 2 diabetes-patient has an insulin pump with U-500 insulin, this will be maintained while she is in the hospital, fingerstick blood sugars will be monitored * end-stage renal disease-patient does home dialysis. She is already on midodrine. * chronic depression-patient is on Cymbalta * A-fib: On metoprolol. Heart rates been into the 80s and 90s. I am reluctant to decrease that further. I do not feel that the metoprolol is the ultimate culprit for these syncope but certainly with her being on it is not the primary factor. Anticoagulated on apixaban. Charges/Coding Visit Charges Inpatient E&M: 24233 Subs Hosp L2
--- NOTE | 2023-08-12 09:13 | NEURO.CONS ---
Assessment and Plan: Neuro Assessment/Plan FORD HESTER is a 53 yo woman who is presenting for an episode of passing out associated with shaking activity that happened during dialysis in the setting of hypotension SBP 70-90. I suspect presentation is more consistent with convulsive syncope given hypotension surrounding the event. EEG is normal. There was a whole body jerk recorded with no EEG correlate. I suspect this is metabolic myoclonus in the setting of ESRD. I personally attended this patient and spent a total time of 40 minutes evaluating this patient including clinical assessment, review of chart, medical history imaging, and determining appropriate treatment and workup. HPI Consult Data Date of Consult: 08/12/23 HPI Narrative HPI Narrative: FORD HESTER is a 53 yo woman who presents for evaluation of seizure-like activity which occurred at home during the patient's home dialysis session. Patient's daughter saw the activity and she states that her arms and legs jumped and her eyes rolled toward the back of her head, she was unresponsive for a brief period of time (minutes) and that she woke up and was alert. Patient has a history of febrile seizures, but no seizures in adulthood. Patient has multiple medical problems which include end-stage renal disease, type 2 diabetes, essential hypertension, Crohn's disease, and MASLD. Patient was noted to be hypotensive in the emergency SBP 70s-90s room and she was given IV fluid. She endorses random sporadic jerks that happen here and there Labs obtained on the patient included a CBC which was remarkable for a white blood cell count of 12.2, hemoglobin was 11.3, sodium was 131, creatinine was 5.7, BUN was 39, and lactic acid was 2.1. CTH with no acute abnormalities [facility] Medical History Blindness Cataract (lens) fragments in eye following cataract surgery, bilateral Acute bronchitis, unspecified Uses prosthesis Seasonal allergies Wears glasses Anxiety Insulin dependent diabetes mellitus Uses wheelchair Arthritis DVT (deep venous thrombosis) History of Holter monitoring High cholesterol TIA (transient ischemic attack) Seizures Dietary restriction History of hiatal hernia Non-smoker CPAP (continuous positive airway pressure) dependence Sleep apnea Shortness of breath on exertion Hypertension History of echocardiogram History of stress test Cardiology follow-up encounter Positive QuantiFERON-TB Gold test Hx of pancreatitis Enteritis Nausea and vomiting Alternating constipation and diarrhea Viral gastroenteritis Acute right flank pain COVID-19 virus detected Pneumonia due to COVID-19 virus Below-knee amputation of left lower extremity Osteomyelitis of left foot History of stroke COPD (chronic obstructive pulmonary disease) IBS (irritable bowel syndrome) Cellulitis of left foot Iron (Fe) deficiency anemia Acute kidney injury Right middle lobe pneumonia Hypomagnesemia Osteomyelitis of right foot Peripheral neuropathy Infection of right great toe due to methicillin resistant Staphylococcus aureus (MRSA) Cellulitis of right foot History of MRSA infection Asthma Pulmonary hypertension SLE (systemic lupus erythematosus) Home Medications ?Medication ?Instructions ?Recorded ?Last Taken ?Type duloxetine 60 mg capsule,delayed 60 mg PO QHS depression 11/26/12 01/19/17 History release insulin regular hum U-500 conc 500 2.2 units subcut CONT insulin pump 10/02/15 01/19/17 History unit/mL subcutaneous soln trazodone 100 mg tablet 150 mg PO QHS sleep 12/27/15 01/18/17 History ergocalciferol (vitamin D2) 1,250 50,000 unit PO QWEEK supplement 01/24/16 01/19/17 History mcg (50,000 unit) capsule albuterol sulfate 2.5 mg/3 mL 2.5 mg inhalation Q4H PRN PRN 06/09/16 09/01/16 History (0.083 %) solution for nebulization Wheezing gabapentin 800 mg tablet 800 mg PO TID neuropathy 05/19/17 Unknown History rosuvastatin 10 mg tablet 40 mg PO QHS cholesterol 06/03/17 Unknown History insulin aspart U-100 100 unit/mL See Protocol subcut ACHS diabetes 07/30/18 Unknown History (3 mL) subcutaneous pen magnesium oxide 400 mg (241.3 mg 400 mg PO DAILYCM supplement 07/30/18 Unknown History magnesium) tablet hydroxyzine pamoate 50 mg capsule 50 mg PO TID PRN Anxiety 02/20/20 Unknown History duloxetine 30 mg capsule,delayed 30 mg PO DAILY depression 05/09/20 Unknown History release omeprazole 20 mg capsule,delayed 40 mg PO DAILY 07/18/21 06/20/22 History release ondansetron 4 mg disintegrating 8 mg PO Q8H PRN PRN Nausea 09/03/21 Unknown History tablet diphenoxylate-atropine 2.5 1 tab PO BID PRN diarrhea #180 tabs 08/04/22 Unknown Rx mg-0.025 mg tablet (Lomotil) hyoscyamine sulfate 0.125 mg tablet 0.125 mg PO BID-QID PRN abdominal 08/04/22 Unknown Rx pain #360 tabs risankizumab-rzaa 360 mg/2.4 mL 360 mg (2.4 mL) subcut .COMPLEX 08/04/22 Unknown Rx (150 mg/mL) subcut wearable #2.4 mL injector (Skyrizi) ursodiol 300 mg capsule 300 mg PO BID LIVER #180 caps 08/04/22 Unknown Rx apixaban 5 mg tablet (Eliquis) 5 mg PO BID blood thinner #60 tabs 10/14/22 01/24/23 Rx albuterol sulfate 90 mcg/actuation 2 puff inhalation Q4-6H PRN 02/26/23 Unknown History aerosol inhaler (ProAir HFA) shortness of breath or wheezing brimonidine 0.2 % eye drops 1 drp ophthalmic (eye) DAILY 02/26/23 Unknown History calcitriol 0.5 mcg capsule 0.5 mcg PO BID 03/26/23 Unknown History calcium acetate(phosphat bind) 667 2,668 mg PO TID binder 03/26/23 Unknown History mg capsule iron sucrose 100 mg iron/5 mL 100 mg .Route .weekly 03/26/23 Unknown History intravenous solution (Venofer) epoetin regan-epbx 2,000 unit/mL 2,000 unit subcut QWEEK 05/14/23 Unknown History injection solution (Retacrit) fludrocortisone 0.1 mg tablet 0.1 mg PO DAILY #30 tabs 06/03/23 Unknown Rx metoprolol tartrate 25 mg tablet 25 mg PO BID #180 tabs 06/11/23 Unknown Rx midodrine 10 mg tablet 10 mg PO TID #90 tabs 07/22/23 Unknown Rx doxycycline hyclate 100 mg tablet 100 mg PO BID 08/11/23 08/11/23 History fenofibrate nanocrystallized 48 mg 48 mg PO DAILY 08/11/23 Unknown History tablet hydrocodone-acetaminophen 5-325mg 1 tab PO TID PRN PRN pain 08/11/23 Unknown History 5mg-325mg Allergy/AdvReac Type Severity Reaction Status Date / Time atorvastatin (From Lipitor) AdvReac Severe Vomiting Verified 06/11/23 14:28 oxycodone HCl (From Percocet) AdvReac Severe Vomiting Verified 06/11/23 14:28 Family History Mother Hypertension Cancer skin Grandmother Hypertension Diabetes Brother Cancer NHL Arthritis Brother Arthritis Surgical History S/P arteriovenous (AV) fistula repair S/P arteriovenous (AV) fistula creation History of lithotripsy History of below-knee amputation of left lower extremity History of eye surgery History of temporal artery biopsy History of lymph node biopsy History of liver biopsy Partial nontraumatic amputation of right foot History of amputation of hallux History of carpal tunnel surgery History of hernia repair History of cholecystectomy History of hysterectomy History of tubal ligation Status post transmetatarsal amputation of right foot Social History Smoking Status: Never smoker second hand exposure: Yes alcohol intake: current details: rare substance use type: does not use Vital Signs Vital Signs Vital Signs: 08/11/23 11:49 08/11/23 11:49 08/11/23 12:44 Temperature 98.6 F Temperature Source Oral Pulse Rate 80 78 Respiratory Rate 12 18 Respiratory Effort Short of Breath Respiratory Depth Respiratory Pattern Blood Pressure 97/54 L 77/50 L Blood Pressure Mean 68 59 Blood Pressure Source Blood Pressure Position Blood Pressure Location Pulse Ox 97 96 Oxygen Delivery Method Room Air Room Air Oxygen Flow Rate (L/min) 08/11/23 13:00 08/11/23 13:17 08/11/23 14:00 Temperature Temperature Source Pulse Rate 80 77 76 Respiratory Rate 16 16 12 Respiratory Effort Respiratory Depth Respiratory Pattern Blood Pressure 85/60 L 105/64 84/43 L Blood Pressure Mean 68 77 56 Blood Pressure Source Blood Pressure Position Blood Pressure Location Pulse Ox 93 95 95 Oxygen Delivery Method Room Air Room Air Room Air Oxygen Flow Rate (L/min) 08/11/23 14:05 08/11/23 14:21 08/11/23 14:48 Temperature 98.4 F 98.4 F Temperature Source Oral Oral Pulse Rate 76 81 88 Respiratory Rate 15 12 15 Respiratory Effort Respiratory Depth Respiratory Pattern Blood Pressure 84/43 L 93/57 L 98/66 Blood Pressure Mean 56 69 76 Blood Pressure Source Blood Pressure Position Blood Pressure Location Pulse Ox 92 97 100 Oxygen Delivery Method Room Air Room Air Nasal Cannula Oxygen Flow Rate (L/min) 2 08/11/23 15:00 08/11/23 15:07 08/11/23 15:23 Temperature 97.5 F L 98.5 F Temperature Source Oral Oral Pulse Rate 82 87 Respiratory Rate 19 H 17 Respiratory Effort Respiratory Depth Respiratory Pattern Blood Pressure 99/60 87/52 L 113/69 Blood Pressure Mean 73 63 83 Blood Pressure Source Blood Pressure Position Blood Pressure Location Pulse Ox 100 100 Oxygen Delivery Method Nasal Cannula Oxygen Flow Rate (L/min) 2 2 08/11/23 16:00 08/11/23 16:45 08/11/23 17:28 Temperature 98.2 F 99.0 F Temperature Source Oral Pulse Rate 80 84 81 Respiratory Rate 12 19 H 17 Respiratory Effort Respiratory Depth Respiratory Pattern Blood Pressure 101/62 91/54 L 96/57 L Blood Pressure Mean 75 66 70 Blood Pressure Source Monitor Blood Pressure Position Semi-Fowlers Blood Pressure Location Right Forearm Pulse Ox 100 98 100 Oxygen Delivery Method Nasal Cannula Nasal Cannula Oxygen Flow Rate (L/min) 2 2 08/11/23 18:42 08/11/23 20:11 08/11/23 21:21 Temperature 97.6 F L Temperature Source Oral Pulse Rate 88 Respiratory Rate 16 Respiratory Effort Normal Non-Labored Normal Non-Labored Respiratory Depth Normal Normal Respiratory Pattern Normal Normal Blood Pressure 106/54 L Blood Pressure Mean 71 Blood Pressure Source Monitor Blood Pressure Position Semi-Fowlers Blood Pressure Location Right Arm Pulse Ox 97 Oxygen Delivery Method Nasal Cannula Nasal Cannula Nasal Cannula Oxygen Flow Rate (L/min) 2 2 2 08/11/23 21:21 08/11/23 21:27 08/12/23 04:12 Temperature 97.7 F L Temperature Source Oral Pulse Rate 88 76 Respiratory Rate 18 Respiratory Effort Respiratory Depth Respiratory Pattern Blood Pressure 96/54 L Blood Pressure Mean 68 Blood Pressure Source Monitor Blood Pressure Position Semi-Fowlers Blood Pressure Location Right Arm Pulse Ox 96 98 Oxygen Delivery Method Nasal Cannula CPAP Oxygen Flow Rate (L/min) 2 08/12/23 04:17 Temperature Temperature Source Pulse Rate Respiratory Rate Respiratory Effort Normal Non-Labored Respiratory Depth Normal Respiratory Pattern Normal Blood Pressure Blood Pressure Mean Blood Pressure Source Blood Pressure Position Blood Pressure Location Pulse Ox Oxygen Delivery Method CPAP Oxygen Flow Rate (L/min) Weight Weight: 91.7 kg Body Mass Index (BMI) 32.6 EEG Results Procedure Details EEG Procedure Details: FORD HESTER is a 53 year old F with a past medical history of , who presents for evaluation of Electroencephalogram on DATE at TIME Physical Exam Narrative Patient alert, oriented, following commands, no aphasia or dysarthria, face symmetric, tongue midline, all extremities antigravity. L AKA. Lab / Micro Data 08/12/23 07:45 08/12/23 07:45 Labs: Laboratory Results - last 24 hr 08/11/23 12:35: WBC 12.2 H, RBC 3.57 L, Hgb 11.3 L, Hct 35.6 L, MCV 99.7 H, MCH 31.7, MCHC 31.7 L, RDW Std Deviation 55.9 H, RDW Coeff of Michael 15.6 H, Plt Count 184, MPV 11.3, Immature Gran % (Auto) 1.100 H, Neut % (Auto) 78.8 H, Lymph % (Auto) 11.5 L, [place] % (Auto) 7.3, Eos % (Auto) 1.1, Baso % (Auto) 0.2, Absolute Neuts (auto) 9.6 H, Absolute Lymphs (auto) 1.41, Nucleated RBC % 0, Differential Comment SCANNED, PT 16.1 H, INR 1.3, APTT 27.7, Sodium 131 L, Potassium 4.3, Chloride 93 L, Carbon Dioxide 28.0, Anion Gap 10, BUN 39 H, Creatinine 5.77 H, Estim Creat Clear Calc 13.11, Est GFR (MDRD) Af Amer 10 L, Est GFR (MDRD) Non-Af 8 L, BUN/Creatinine Ratio 6.8 L, Glucose 133 H, Calcium 9.5, Troponin I High Sens 8 08/11/23 13:30: Lactic Acid 2.1 H* 08/11/23 14:44: Urine Color Yellow, Urine Clarity Cloudy, Urine pH 5.0, Ur Specific [place] 1.030, Urine Protein 100 H, Urine Glucose (UA) 50 H, Urine Ketones 5 H, Urine Occult Blood 25 H, Urine Nitrite Negative, Urine Bilirubin 1 H, Urine Urobilinogen Normal, Ur Leukocyte Esterase 500 H, Urine RBC 0-5 SEEN, Urine WBC 0-5 SEEN, Ur Squamous Epith Cells 0 SEEN, Urine Bacteria 1+, Urine Mucus 0 SEEN 08/11/23 17:54: Lactic Acid 1.2 08/11/23 21:18: POC Glucose 89 08/12/23 06:21: POC Glucose 36 L* 08/12/23 06:41: POC Glucose 44 L* 08/12/23 07:02: POC Glucose 61 L 08/12/23 07:29: POC Glucose 88 08/12/23 07:45: WBC 6.9, RBC 3.02 L, Hgb 9.7 L, Hct 30.5 L, MCV 101.0 H, MCH 32.1 H, MCHC 31.8 L, RDW Std Deviation 57.0 H, RDW Coeff of Michael 15.7 H, Plt Count 134 L, MPV 10.7, Immature Gran % (Auto) 1.300 H, Neut % (Auto) 72.6 H, Lymph % (Auto) 17.4 L, [place] % (Auto) 7.3, Eos % (Auto) 1.3, Baso % (Auto) 0.1, Absolute Neuts (auto) 5.0, Absolute Lymphs (auto) 1.21, Nucleated RBC % 0, Sodium 135 L, Potassium 4.4, Chloride 98, Carbon Dioxide 27.0, Anion Gap 10, BUN 48 H, Creatinine 7.06 H, Estim Creat Clear Calc 10.63, Est GFR (MDRD) Af Amer 8 L, Est GFR (MDRD) Non-Af 7 L, BUN/Creatinine Ratio 6.8 L, Glucose 118 H, Calcium 8.6, Total Bilirubin 0.70, AST 17, ALT 19, Alkaline Phosphatase 67, Total Protein 8.2, Albumin 3.1 L, Globulin 5.1 H, Albumin/Globulin Ratio 0.6 L Micro: Microbiology 08/11/23 13:31 Mucosa - Nose SARS-CoV-2, Influenza & RSV (PCR) - Final Imaging Radiology Impression Brain CT 08/11/23 13:24 IMPRESSION: No acute abnormality is seen. Electronically Signed: Naun Bethea MD at 14:15 EDT , Chest X-Ray 08/11/23 13:50 IMPRESSION: No acute abnormality is seen. Electronically Signed: Naun Bethea MD at 14:18 EDT , Active Medications Active Medications Active Medications: Current Medications Generic Name Dose Route Start Last Admin Trade Name Freq PRN Reason Stop Dose Admin Acetaminophen 650 mg 08/11/23 17:01 Acetaminophen 325 Mg Tablet PO Q6H PRN PRN Pain 1-10 Or Fever >100.7 Hydrocodone Bitart/Acetaminophen 1 tablet 08/11/23 17:01 08/11/23 18:51 Hydrocodone Bitartrate/Apap 5/325 Tablet PO 1 tablet TID PRN PRN Administration Pain Score 1-10 Albuterol Sulfate 2.5 mg 08/11/23 17:01 Albuterol 2.5 Mg/3 Ml Vial.Neb. INHALATION Q4H PRN PRN Wheezing Apixaban 5 mg 08/11/23 22:00 08/11/23 21:29 Apixaban 5 Mg Tablet PO 5 mg BID JOE Administration Brimonidine Tartrate 1 drp 08/12/23 10:00 Brimonidine 0.2% 5ml Bottle EACH EYE BID JOE Calcitriol 0.5 mcg 08/12/23 10:00 Calcitriol 0.25 Mcg Capsule PO DAILY JOE Calcium Acetate 2,668 mg 08/12/23 08:00 08/12/23 08:01 Calcium Acetate 667 Mg Capsule PO 2,668 mg TIDCM JOE Administration Diphenoxylate HCl/Atropine 1 tablet 08/11/23 17:01 Diphenoxylate/Atrop 1 Tablet PO BID PRN diarrhea Doxycycline Monohydrate 100 mg 08/11/23 22:00 08/11/23 21:28 Doxycycline 100 Mg Capsule PO 100 mg BID JOE Administration Duloxetine HCl 60 mg 08/11/23 22:00 08/11/23 21:28 Duloxetine Hcl 60 Mg Capsule PO 60 mg QHS JOE Administration Duloxetine HCl 30 mg 08/12/23 10:00 Duloxetine Hcl 30 Mg Capsule PO DAILY JOE Fenofibrate 48 mg 08/12/23 10:00 Fenofibrate 48 Mg Tablet PO DAILY JOE Fludrocortisone Acetate 0.1 mg 08/12/23 08:00 08/12/23 08:01 Fludrocortisone Acetate 0.1 Mg Tablet PO 0.1 mg BREAKFAST JOE Administration Gabapentin 800 mg 08/11/23 22:00 08/12/23 06:28 Gabapentin 800 Mg Tablet PO 800 mg TID JOE Administration Glucagon 1 mg 08/11/23 17:01 Glucagon 1 Mg/Ml Syringe IM X1 PRN HYPOGLYCEMIA Protocol Hydroxyzine Pamoate 50 mg 08/11/23 17:14 Hydroxyzine [place] 25 Mg Capsule PO TID PRN PRN Anxiety Dextrose 250 mls @ 999 mls/hr 08/11/23 17:01 Dextrose 10%-Water IV .Q16M PRN HYPOGLYCEMIA Protocol Sodium Chloride 250 mls @ 15 mls/hr 08/11/23 17:03 IV .[id number] PRN Additional IVPB Infusion Sodium Chloride 250 mls @ 15 mls/hr 08/11/23 17:03 IV .[id number] PRN Saline Flush Insulin Aspart 2.2 unit 08/12/23 22:00 Insulin Basal Pump SC [facility] Insulin Human Lispro 0 unit 08/11/23 22:00 08/12/23 06:30 Insulin Lispro 100 Unit/Ml Insuln.Pen SC Not Given ACHS [facility] Protocol Magnesium Chloride 128 mg 08/12/23 08:00 08/12/23 08:00 Magnesium Chloride 64 Mg Delay Rel.Tablet PO 128 mg DAILYCM JOE Administration Metoprolol Tartrate 25 mg 08/11/23 22:00 08/11/23 21:27 Metoprolol Tartrate 25 Mg Tablet PO 25 mg BID JOE Administration Protocol Midodrine 10 mg 08/12/23 08:00 08/12/23 08:01 Midodrine Hcl 5 Mg Tablet PO 10 mg TIDCM JOE Administration Ondansetron HCl 8 mg 08/11/23 17:01 08/11/23 18:39 Ondansetron Odt 4 Mg Tablet PO 8 mg Q8H PRN PRN Administration Nausea Ondansetron HCl 4 mg 08/11/23 17:01 Ondansetron 4 Mg/2 Ml Vial IV Q8H PRN PRN NAUSEA/VOMITING Pantoprazole Sodium 40 mg 08/12/23 10:00 Pantoprazole Sodium 40 Mg Tablet PO DAILY JOE Sodium Chloride 10 - 40 ml 08/11/23 17:03 08/11/23 21:26 0.9% Saline Lock 10 Ml Syringe IV 10 ml UD PRN Administration SALINE FLUSH Trazodone HCl 150 mg 08/11/23 22:00 08/11/23 21:28 Trazodone 50 Mg Tablet PO 150 mg QHS JOE Administration Ursodiol 250 mg 08/11/23 22:00 08/11/23 21:27 Ursodiol 250 Mg Tablet PO 250 mg BID JOE Administration
--- NOTE | 2023-08-12 10:43 | CASEMGMT ---
Social Work SW met with pt to discuss advance directives.? Pt confirms she has completed a living will and health care POA naming Alek, .? Pt notified that documents are not on file at [facility] and SW requested they be brought in for scanning into the EMR.? CHARLES Pandya
[2023-08-12] MEDS: Pantoprazole Sodium 40 MG Tablet PO (10:45)
[2023-08-12] MEDS: Calcitriol 0.25 MCG Capsule 0.5 MCG PO (10:45)
[2023-08-12] MEDS: Fenofibrate 48 MG Tablet PO (10:45)
[2023-08-12] MEDS: DULoxetine Hcl 30 MG Capsule PO (10:45)
[2023-08-12] MEDS: Doxycycline 100 MG CAPSULE PO (10:46)
[2023-08-12] MEDS: BRIMONIDINE 0.2% 5ML BOTTLE 1 DRP EACH EYE (10:46)
[2023-08-12] MEDS: APIXABAN 5 MG TABLET PO (10:46)
[2023-08-12] MEDS: Ursodiol 250 MG Tablet PO (10:46)
[2023-08-12] MEDS: HYDROcodone Bitartrate/Apap 5/325 Tablet PO (10:46)
[2023-08-12] MEDS: Diphenoxylate/Atrop 1 Tablet PO (11:19)
[2023-08-12] MEDS: Insulin Lispro 100 UNIT/ML INSULN.PEN SC (12:18)
[2023-08-12 12:33] LABS: Bedside Glucose 163 mg/dL (74-106)
[2023-08-12] MEDS: PureFlow B 2K Dialysis Soln 1 BAG 6 BAG PF (14:01)
[2023-08-12] MEDS: 0.9% Normal Saline 1,000 ML IV.SOLN. 1000 ML OPERA.SITE (14:01)
--- NOTE | 2023-08-12 15:44 | WOUNDNOTE ---
wound photo: right foot
--- NOTE | 2023-08-12 15:45 | WOUNDNOTE ---
wound photo: right foot
--- NOTE | 2023-08-12 16:20 | CASEMGMT ---
Patient likely to discharge today. RN CM in to discuss needs at discharge. Patient denies needs or help at discharge. Patient states is able to assist if needed and can bring portable tank if needed for at discharge. Patient had no further questions or concerns.
--- NOTE | 2023-08-12 17:32 | DS.PCM_ITS ---
Providers Date of Admission: 08/11/23 Primary Care Physician: Dr. Johann Jimenez MD Consultations 08/11/23 17:01 Consult: Nephrology Routine Consulting Provider: Emily Gandhi Reason for Consult: ESRD EMERGENT Consult: No MD Notified: Yes Date Notified: 08/11/23 Time Notified: 17:22 Method of Notification: Text Consult: Tele-Neurology Routine Consulting Provider: [facility] Reason for Consult: seizure like activity EMERGENT Consult: No Notified: Yes Date Notified: 08/11/23 Time Notified: 17:34 Method of Notification: Answering Service Method of Consult:: Telemedicine Nursing Unit Staff Notify [facility] of Tele-Neurology Consult: Yes 08/12/23 09:37 Consult: Onc/Wound/cyber threat analyst Routine Comment: Reason for Consult:: right foot wound Reason For Visit: SEIZURE LIKE ACTIVITY Diagnosis Discharge Diagnosis (1) Seizure-like activity: Status: Acute Code(s): R56.9 - Unspecified convulsions Plan Syncopal episode * Not seizure. EEG negative. * Seen by [facility] who does not feel the patient did have a seizure this is more likely convulsive syncope. * Family reports that patient gets dialysis daily at home and can be unresponsive at times so patient may be having vagal episodes that are less severe than this time. Chronic conditions * type 2 diabetes-patient has an insulin pump with U-500 insulin, this will be maintained while she is in the hospital, fingerstick blood sugars will be monitored * end-stage renal disease-patient does home dialysis. She is already on midodrine. * chronic depression-patient is on Cymbalta * A-fib: On metoprolol. Heart rates been into the 80s and 90s. I am reluctant to decrease that further. I do not feel that the metoprolol is the ultimate culprit for these syncope but certainly with her being on it is not the primary factor. Anticoagulated on apixaban. Medications at Discharge Home Medications duloxetine 60 mg capsule,delayed release 60 mg PO QHS depression 11/26/12 insulin regular hum U-500 conc 500 unit/mL subcutaneous soln 2.2 units subcut CONT insulin pump 10/02/15 trazodone 100 mg tablet 150 mg PO QHS sleep 12/27/15 ergocalciferol (vitamin D2) 1,250 mcg (50,000 unit) capsule 50,000 unit PO QWEEK supplement 01/24/16 albuterol sulfate 2.5 mg/3 mL (0.083 %) solution for nebulization 2.5 mg inhalation Q4H PRN PRN Wheezing 06/09/16 gabapentin 800 mg tablet 800 mg PO TID neuropathy 05/19/17 rosuvastatin 10 mg tablet 40 mg PO QHS cholesterol 06/03/17 insulin aspart U-100 100 unit/mL (3 mL) subcutaneous pen See Protocol subcut ACHS diabetes 07/30/18 magnesium oxide 400 mg (241.3 mg magnesium) tablet 400 mg PO DAILYCM supplement 07/30/18 hydroxyzine pamoate 50 mg capsule 50 mg PO TID PRN Anxiety 02/20/20 duloxetine 30 mg capsule,delayed release 30 mg PO DAILY depression 05/09/20 omeprazole 20 mg capsule,delayed release 40 mg PO DAILY 07/18/21 ondansetron 4 mg disintegrating tablet 8 mg PO Q8H PRN PRN Nausea 09/03/21 diphenoxylate-atropine 2.5 mg-0.025 mg tablet (Lomotil) 1 tab PO BID PRN diarrhea #180 tabs 08/04/22 hyoscyamine sulfate 0.125 mg tablet 0.125 mg PO BID-QID PRN abdominal pain #360 tabs 08/04/22 risankizumab-rzaa 360 mg/2.4 mL (150 mg/mL) subcut wearable injector (Skyrizi) 360 mg (2.4 mL) subcut .COMPLEX #2.4 mL 08/04/22 ursodiol 300 mg capsule 300 mg PO BID LIVER #180 caps 08/04/22 apixaban 5 mg tablet (Eliquis) 5 mg PO BID blood thinner #60 tabs 10/14/22 albuterol sulfate 90 mcg/actuation aerosol inhaler (ProAir HFA) 2 puff inhalation Q4-6H PRN shortness of breath or wheezing 02/26/23 brimonidine 0.2 % eye drops 1 drp ophthalmic (eye) DAILY 02/26/23 calcitriol 0.5 mcg capsule 0.5 mcg PO BID 03/26/23 calcium acetate(phosphat bind) 667 mg capsule 2,668 mg PO TID binder 03/26/23 iron sucrose 100 mg iron/5 mL intravenous solution (Venofer) 100 mg .Route .weekly 03/26/23 epoetin regan-epbx 2,000 unit/mL injection solution (Retacrit) 2,000 unit subcut QWEEK 05/14/23 fludrocortisone 0.1 mg tablet 0.1 mg PO DAILY #30 tabs 06/03/23 midodrine 10 mg tablet 10 mg PO TID #90 tabs 07/22/23 doxycycline hyclate 100 mg tablet 100 mg PO BID 08/11/23 fenofibrate nanocrystallized 48 mg tablet 48 mg PO DAILY 08/11/23 hydrocodone-acetaminophen 5-325mg 5mg-325mg 1 tab PO TID PRN PRN pain 08/11/23 metoprolol tartrate 25 mg tablet 12.5 mg (1/2 x 25 mg) PO BID #180 tabs 08/12/23 Hospital Course Operations None Procedures Electroencephalogram Summary of Care Provided Minutes Spent on Discharge: 40 Hospital Course: Patient presented with an episode where she was unresponsive and then was shaking. Came to relatively quickly. Patient underwent a workup, including a head CT and EEG. Both of which were negative. Followed by neurology to be convulsive syncope. Patient had other episodes where she has had issues with low blood pressure as well and periods of difficulty arousing during dialysis. This episode appears to be the most profound. Patient states that her blood pressure typically runs low. As we monitored here without dialysis and her blood pressure actually remained stable though her metoprolol was held. Patient will resume her metoprolol at home but at 12.5 mg instead of 25 mg twice daily. But also to hold it if her systolic blood pressure is less than 100. Hopefully that helps but patient will continue taking her midodrine as she normally does 3 times a day. Patient is constantly checking her blood pressure multiple times per day and even during dialysis. Patient does get home dialysis. Patient instructed to follow-up with Dr. Hernandez, of cardiology, given her issues with atrial fibrillation on metoprolol. If patient is having ongoing issues with hypotension, it is unclear if changing it to doubt different medication would be helpful in this matter. Weight / BMI Weight Weight: 92.986 kg Body Mass Index (BMI) 32.9 ABG / Lab / Microbiology Data 08/12/23 07:45 08/12/23 07:45 Laboratory: Laboratory Results - last 24 hr 08/11/23 17:54: Lactic Acid 1.2 08/11/23 21:18: POC Glucose 89 08/12/23 06:21: POC Glucose 36 L* 08/12/23 06:41: POC Glucose 44 L* 08/12/23 07:02: POC Glucose 61 L 08/12/23 07:29: POC Glucose 88 08/12/23 07:45: WBC 6.9, RBC 3.02 L, Hgb 9.7 L, Hct 30.5 L, MCV 101.0 H, MCH 32.1 H, MCHC 31.8 L, RDW Std Deviation 57.0 H, RDW Coeff of Michael 15.7 H, Plt Count 134 L, MPV 10.7, Immature Gran % (Auto) 1.300 H, Neut % (Auto) 72.6 H, L ymph % (Auto) 17.4 L, [place] % (Auto) 7.3, Eos % (Auto) 1.3, Baso % (Auto) 0.1, Absolute Neuts (auto) 5.0, Absolute Lymphs (auto) 1.21, Nucleated RBC % 0, S odium 135 L, Potassium 4.4, Chloride 98, Carbon Dioxide 27.0, Anion Gap 10, BUN 48 H, Creatinine 7.06 H, Estim Creat Clear Calc 10.63, Est GFR (MDRD) Af Amer 8 L, Est GFR (MDRD) Non-Af 7 L, BUN/Creatinine Ratio 6.8 L, Glucose 118 H, Calcium 8.6, Total Bilirubin 0.70, AST 17, ALT 19, Alkaline Phosphatase 67, Total Protein 8.2, Albumin 3.1 L, Globulin 5.1 H, Albumin/Globulin Ratio 0.6 L 08/12/23 12:15: POC Glucose 163 H Microbiology: Microbiology 08/11/23 14:44 Urine Catheter - Catheter Urine Culture - Preliminary Gram negative kerry 08/11/23 13:31 Mucosa - Nose SARS-CoV-2, Influenza & RSV (PCR) - Final D/C Instructions Discharge Diet: Renal Diet Meaningful Use Info Meaningful Use Meaningful Use Diagnoses (Choose all that apply): None applicable Ischemic Stroke Statin Dosing Therapy Reference: STATIN DOSE THERAPY REFERENCE: * Patients > 75 years receive moderate or high dose statin therapy. * Patients 75 years or YOUNGER should receive HIGH intensity statin dose unless contraindicated. You will be required to document reason for non-treatment if statin daily dose does not meet guidelines. HIGH DOSE STATIN THERAPY DAILY Atorvastatin > than or = to 40 mg Rosuvastatin > than or = to 20 mg Amlodipine + Atorvastatin > than or = to 2.5/40 mg Ezetimibe + Simvastatin 10/80 mg Simvastatin 80mg Discharge Plan Admission Admit Date/Time: 08/11/23 16:21 Primary Reason for Your Visit: Syncope Attending Provider: Mikey Vickers Primary Care Provider: Johann Jimenez Consulting Providers: Emily Gandhi; Taty Connell; Anca Augustine; Smitha Holland; Ahmet Monet; Zen Pugh; Arleen Katz; ASHLIE CARRERA; Sharon Weller; Siri Winter; Jasbir Melara; Lulu Whiteside; Ari Awad; Lianne Turner; Libia Rivera; Paul Dumont; Sujey Puentes; Tyler Bravo; Lawrence Cotto; Wilson Merino; Char Villarreal; Errol Khan; Jeronimo Somers; Jhony Rod; Omar Rodriguez; Yane Gandhi; Stephani Salgado; Rk Luong Instructions Additional Instructions / Restrictions: You had syncopal episode. He did not have a seizure. Cellular with low blood pressure. With the blood pressure being low, will recommend changing her metoprolol from 25 mg twice a day to 12.5 mg twice a day. Hopefully that will help but I would also like for you to hold off on taking the metoprolol if you are systolic blood pressure is less than 100. I would also like you to follow- up with Dr. Hernandez of cardiology to see if any further adjustments to medications would be necessary. Discharge Orders/Prescriptions Prescriptions: Continued omeprazole 20 mg capsule,delayed release(DR/EC) 40 mg PO DAILY ondansetron 4 mg tablet,disintegrating 8 mg PO Q8H PRN PRN (Reason: Nausea) brimonidine 0.2 % drops 1 drp ophthalmic (eye) DAILY Patient Comments: INSTILL 1 DROP INTO BOTH EYES TWICE A DAY DIRECTED albuterol sulfate [ProAir HFA] 90 mcg/actuation HFA aerosol inhaler 2 puff inhalation Q4-6H PRN (Reason: shortness of breath or wheezing) calcitriol 0.5 mcg capsule 0.5 mcg PO BID calcium acetate(phosphat bind) 667 mg capsule 2,668 mg PO TID Patient Comments: take 4 caps with meals Venofer 100 mg iron/5 mL solution 100 mg .Route .weekly Rx Instructions: 100 mg WEEKLY; Retacrit 2,000 unit/mL solution 2,000 unit subcut QWEEK duloxetine 60 MG capsule 60 mg PO QHS Patient Comments: DEPRESSION AND PAIN CONTROL insulin regular hum U-500 conc 20 ML solution 2.2 units SC CONT Patient Comments: insulin pump Rx Instructions: changed site today 02/19/20 trazodone 100 MG tablet 150 mg PO QHS Patient Comments: SLEEP ergocalciferol (vitamin D2) 50,000 UNIT capsule 50,000 unit PO QWEEK Patient Comments: supplement albuterol sulfate 2.5 MG/3 ML solution for nebulization 2.5 mg INHALATION Q4H PRN PRN (Reason: Wheezing) Patient Comments: shortness of breath gabapentin 800 MG tablet 800 mg PO TID Patient Comments: nerve pain rosuvastatin 10 mg tablet 40 mg PO QHS magnesium oxide 400 MG tablet 400 mg PO DAILYCM insulin aspart U-100 100 UNITS/ML insulin pen See Protocol SC ACHS Protocol: 6. Sliding Scale Insulin Custom Condition: mg/dl range Dose/Route: Number of Units Protocol Text: Custom Sliding Scale Patient Comments: if blood sugar is over 200. calculate reading over 200. divide in half and give that many units of insulin. duloxetine 30 mg capsule,delayed release(DR/EC) 30 mg PO DAILY hydroxyzine pamoate 50 MG capsule 50 mg PO TID PRN (Reason: Anxiety) doxycycline hyclate 100 mg tablet 100 mg PO BID fenofibrate nanocrystallized 48 mg tablet 48 mg PO DAILY hydrocodone-acetaminophen 5-325 mg tablet 1 tab PO TID PRN PRN (Reason: pain) ursodiol 300 mg capsule 300 mg PO BID Qty: 180 3RF diphenoxylate-atropine [Lomotil] 2.5-0.025 mg tablet 1 tab PO BID PRN (Reason: diarrhea) Qty: 180 3RF hyoscyamine sulfate 0.125 mg tablet 0.125 mg PO BID-QID PRN (Reason: abdominal pain) Qty: 360 3RF Skyrizi 360 mg/2.4 mL (150 mg/mL) wearable injector 360 mg subcut .COMPLEX Qty: 2.4 6RF Rx Instructions: 360 mg subcutaneously every 8 weeks; Eliquis 5 mg tablet 5 mg PO BID Qty: 60 11RF fludrocortisone 0.1 mg tablet 0.1 mg PO DAILY Qty: 30 3RF midodrine 10 mg tablet 10 mg PO TID Qty: 90 1RF Rx Instructions: do not give last dose of day after 6PM or within 4 hrs of bedtime Changed metoprolol tartrate 25 mg tablet 12.5 mg PO BID Qty: 180 3RF Rx Instructions: Hold for SBP <100 Referrals / Follow Up: [facility] [Provider Group] - 09/10/23 3:00 pm Johann Jimenez MD [Primary Care Provider] - Within 2 Weeks Disposition Disposition (needs filled in before D/C Order can be placed): Home, Self Care Charges/Coding Visit Charges Inpatient E&M: 64121 Disch Hosp >30min
== END 2023-08-12 17:41 | disposition home or self-care (01) ==
LOC: ED 16:21 → PCU 16:45
PROVIDERS: Admitting Provider Internal Medicine; Emergency Provider Emergency Medicine; PCP Family Medicine
DX: R56.9 Unspecified convulsions (principal); I12.0 Hypertensive chronic kidney disease with stage 5 chronic kidney disease or end stage renal disease; N18.6 End stage renal disease; K50.90 Crohn's disease, unspecified, without complications; J44.9 Chronic obstructive pulmonary disease, unspecified; I48.91 Unspecified atrial fibrillation; M32.9 Systemic lupus erythematosus, unspecified; E11.42 Type 2 diabetes mellitus with diabetic polyneuropathy; Z79.4 Long term (current) use of insulin; E11.22 Type 2 diabetes mellitus with diabetic chronic kidney disease; E78.00 Pure hypercholesterolemia, unspecified; I95.9 Hypotension, unspecified; Z99.2 Dependence on renal dialysis; Z79.01 Long term (current) use of anticoagulants; Z79.52 Long term (current) use of systemic steroids; Z96.41 Presence of insulin pump (external) (internal); F32.A Depression, unspecified; Z79.899 Other long term (current) drug therapy; D50.9 Iron deficiency anemia, unspecified
CPT/HCPCS: 36415; 70450; 71045; 80048; 80053; 81001; 82962; 83605; 84484; 85025; 85610; 85730; 87040; 87077; 87086; 87088; 87186; 87631; 93005; 95819; 96361; 96365; 96366; 96367; 97802; 99221; 99285; J7030; J7040; J7050; A4216; G0378

== ENCOUNTER → 2023-08-19 | Outpatient (CLI) | payer MEDICARE, SELFPAY ==
--- NOTE | 2023-08-19 14:43 | CT_ITS ---
STUDY: CT CHEST, ABDOMEN T PELVIS WITHOUT CONTRAST REASON FOR EXAM: Female, 53 years old. Chest and abdominal pain RADIATION DOSAGE (If Supplied By Facility): CTDIvol = ( 26.0 ) mGy, DLP = ( 2346.60 ) mGycm TECHNIQUE: Transaxial imaging was performed without the administration of intravenous contrast material. Multiplanar coronal and sagittal images were reformatted. Individualized dose optimization techniques were used for this CT. COMPARISON: Previous PET study from 05/12/2023 FINDINGS: CHEST Lung windows show the lungs to be normally expanded. There is nonspecific pleural thickening in both hemithoraces. There is no organized infiltrate, or effusion. No suspicious noncalcified mass or nodule. The thyroid gland is mildly enlarged and shows bilateral nodules, consider dedicated thyroid ultrasound for further evaluation. Normal heart and pericardium. No suspicious axillary, mediastinal or perihilar adenopathy. . Normal unenhanced pulmonary arteries. Normal aorta arch and descending thoracic aorta. Normal osseous structures. ABDOMEN Normal liver. There is non-visualization of the gallbladder, which may be secondary to either contraction or a prior cholecystectomy. Normal spleen. Normal pancreas. Normal bilateral adrenal glands. No obstructive uropathy or suspicious solid renal lesion, there is nonspecific induration of the perinephric fat. Normal visualized stomach. Nondistended fluid-filled small and large bowel loops throughout the abdomen suggests diffuse enteritis. There are scattered colonic diverticula without CT evidence of acute diverticulitis. Appendix seen on coronal recon images 52 through 63 Normal abdominal aorta. Normal inferior vena cava. Normal retroperitoneum. Normal abdominal wall. There are diffuse degenerative changes of the visualized lumbar spine, and pelvis. PELVIS Normal urinary bladder. There is no pelvic fluid. There is no pelvic lymphadenopathy or mass lesion. Normal visualized pelvic arteries. CT/CT Chest, Abd, Pelvis WO Cont IMPRESSION: Nonspecific pleural thickening in both hemithoraces without evidence of a superimposed infiltrate effusion or suspicious noncalcified mass or nodule. No suspicious adenopathy No suspicious solid organ abnormality, nonspecific induration of the perinephric fat Fluid-filled small and large bowel loops suggest diffuse enteritis Scattered colonic diverticula, no CT evidence of acute diverticulitis. No free intraperitoneal fluid, air, or suspicious adenopathy Electronically Signed: Michael Branham MD at 10:39 EDT ,
== END | disposition home or self-care (01) ==
LOC: CT 14:42
PROVIDERS: PCP Family Medicine; Referring Provider Internal Medicine Medical Oncology; Visit Provider Internal Medicine Medical Oncology
DX: R94.8 Abnormal results of function studies of other organs and systems (principal)
CPT/HCPCS: 71250; 74176

== ENCOUNTER → 2023-08-26 | Outpatient (CLI) | payer MEDICARE, SELFPAY ==
--- NOTE | 2023-08-26 15:55 | RAD_ITS ---
INDICATION: CHECK SCS LEAD PLACEMENT EXAMINATION/TECHNIQUE: X-RAY - XR Spine Thoracic 3 Views COMPARISON: Chest radiograph of 08/11/2023 FINDINGS: Tubes and lines: 1. Thoracic stimulator again noted, projecting to approximately the level of T7. VERTEBRAE: Preserved vertebral body height. No fracture. No spondylolisthesis. Preservation of the normal thoracic kyphosis. No significant facet arthropathy. DISCS: Disc spaces are maintained. INCLUDED CHEST/ABDOMEN: No acute abnormalities. RAD/Thoracic Spine 3 Views IMPRESSION: 1. No evidence of thoracic spinal fracture or spondylolisthesis. 2. Thoracic stimulator again noted projecting to approximately the level of T7. Electronically Signed: Kelby Gilmore MD at 17:11 EDT ,
== END | disposition home or self-care (01) ==
LOC: RAD 15:52
PROVIDERS: PCP Family Medicine; Referring Provider Clinical Nurse Specialist Adult Health; Visit Provider Clinical Nurse Specialist Adult Health
DX: Z04.89 Encounter for examination and observation for other specified reasons (principal)
CPT/HCPCS: 72072

== ENCOUNTER 2023-09-23 11:07 | Day surgery (SDC) | payer MEDICARE, SELFPAY ==
[2023-09-23 11:25] VITALS: BMI 34.3
--- NOTE | 2023-09-23 13:11 | PCM.HP.STD ---
HPI - General HPI Narrative FORD HESTER, is a 53 F who presents with malfunction of left arm fistula. Previously interventions of venous outflow in upper arm by Dr. Demarco, most recent in Jan 2023. FORMERLY [facility], [facility] Medical History ESRD (end stage renal disease) on dialysis Lung nodule seen on imaging study Atrial fibrillation, controlled Essential hypertension Crohn's disease Hepatosplenomegaly Diarrhea HINTON (nonalcoholic steatohepatitis) CKD (chronic kidney disease) Anemia in chronic kidney disease (CKD) GERD (gastroesophageal reflux disease) Diastolic dysfunction Depression Diabetes mellitus Blindness Cataract (lens) fragments in eye following cataract surgery, bilateral Acute bronchitis, unspecified Uses prosthesis Seasonal allergies Wears glasses Anxiety Insulin dependent diabetes mellitus Uses wheelchair Arthritis DVT (deep venous thrombosis) History of Holter monitoring High cholesterol TIA (transient ischemic attack) Seizures Dietary restriction History of hiatal hernia Non-smoker CPAP (continuous positive airway pressure) dependence Sleep apnea Shortness of breath on exertion Hypertension History of echocardiogram History of stress test Cardiology follow-up encounter Positive QuantiFERON-TB Gold test Hx of pancreatitis Enteritis Nausea and vomiting Alternating constipation and diarrhea Viral gastroenteritis Acute right flank pain COVID-19 virus detected Pneumonia due to COVID-19 virus Below-knee amputation of left lower extremity Osteomyelitis of left foot History of stroke COPD (chronic obstructive pulmonary disease) IBS (irritable bowel syndrome) Cellulitis of left foot Iron (Fe) deficiency anemia Acute kidney injury Right middle lobe pneumonia Hypomagnesemia Osteomyelitis of right foot Peripheral neuropathy Infection of right great toe due to methicillin resistant Staphylococcus aureus (MRSA) Cellulitis of right foot History of MRSA infection Asthma Pulmonary hypertension SLE (systemic lupus erythematosus) Home Medications ?Medication ?Instructions ?Recorded ?Last Taken ?Type duloxetine 60 mg capsule,delayed 60 mg PO QHS depression 11/26/12 01/19/17 History release insulin regular hum U-500 conc 500 2.2 units subcut CONT insulin pump 10/02/15 01/19/17 History unit/mL subcutaneous soln trazodone 100 mg tablet 150 mg PO QHS sleep 12/27/15 01/18/17 History ergocalciferol (vitamin D2) 1,250 50,000 unit PO QWEEK supplement 01/24/16 01/19/17 History mcg (50,000 unit) capsule albuterol sulfate 2.5 mg/3 mL 2.5 mg inhalation Q4H PRN PRN 06/09/16 09/01/16 History (0.083 %) solution for nebulization Wheezing gabapentin 800 mg tablet 800 mg PO TID neuropathy 05/19/17 Unknown History rosuvastatin 10 mg tablet 40 mg PO QHS cholesterol 06/03/17 Unknown History insulin aspart U-100 100 unit/mL See Protocol subcut ACHS diabetes 07/30/18 Unknown History (3 mL) subcutaneous pen magnesium oxide 400 mg (241.3 mg 400 mg PO DAILYCM supplement 07/30/18 Unknown History magnesium) tablet hydroxyzine pamoate 50 mg capsule 50 mg PO TID PRN Anxiety 02/20/20 Unknown History duloxetine 30 mg capsule,delayed 30 mg PO DAILY depression 05/09/20 Unknown History release omeprazole 20 mg capsule,delayed 40 mg PO DAILY 07/18/21 06/20/22 History release ondansetron 4 mg disintegrating 8 mg PO Q8H PRN PRN Nausea 09/03/21 Unknown History tablet diphenoxylate-atropine 2.5 1 tab PO BID PRN diarrhea #180 tabs 08/04/22 Unknown Rx mg-0.025 mg tablet (Lomotil) hyoscyamine sulfate 0.125 mg tablet 0.125 mg PO BID-QID PRN abdominal 08/04/22 Unknown Rx pain #360 tabs apixaban 5 mg tablet (Eliquis) 5 mg PO BID blood thinner #60 tabs 10/14/22 09/22/23 Rx albuterol sulfate 90 mcg/actuation 2 puff inhalation Q4-6H PRN 02/26/23 Unknown History aerosol inhaler (ProAir HFA) shortness of breath or wheezing brimonidine 0.2 % eye drops 1 drp ophthalmic (eye) DAILY 02/26/23 Unknown History calcitriol 0.5 mcg capsule 0.5 mcg PO BID 03/26/23 Unknown History calcium acetate(phosphat bind) 667 2,668 mg PO TID binder 03/26/23 Unknown History mg capsule iron sucrose 100 mg iron/5 mL 100 mg .Route .weekly 03/26/23 Unknown History intravenous solution (Venofer) epoetin regan-epbx 2,000 unit/mL 2,000 unit subcut QWEEK 05/14/23 Unknown History injection solution (Retacrit) fludrocortisone 0.1 mg tablet 0.1 mg PO DAILY #30 tabs 06/03/23 Unknown Rx midodrine 10 mg tablet 10 mg PO TID #90 tabs 07/22/23 Unknown Rx doxycycline hyclate 100 mg tablet 100 mg PO BID 08/11/23 08/11/23 History fenofibrate nanocrystallized 48 mg 48 mg PO DAILY 08/11/23 Unknown History tablet hydrocodone-acetaminophen 5-325mg 1 tab PO TID PRN PRN pain 08/11/23 Unknown History 5mg-325mg ursodiol 300 mg capsule 300 mg PO BID LIVER #180 caps 08/17/23 Unknown Rx risankizumab-rzaa 360 mg/2.4 mL 360 mg (2.4 mL) subcut .COMPLEX 08/21/23 Unknown Rx (150 mg/mL) subcut wearable #2.4 mL injector (Skyrizi) budesonide 3 mg 9 mg (3 x 3 mg) PO DAILY #90 ea 08/24/23 Unknown Rx capsule,delayed,extended release metoprolol tartrate 25 mg tablet 12.5 mg (1/2 x 25 mg) PO BID #90 09/18/23 Unknown Rx tabs Allergy/AdvReac Type Severity Reaction Status Date / Time atorvastatin (From Lipitor) AdvReac Severe Vomiting Verified 09/18/23 16:55 oxycodone HCl (From Percocet) AdvReac Severe Vomiting Verified 09/18/23 16:55 Family History Mother Hypertension Cancer skin Grandmother Hypertension Diabetes Brother Cancer NHL Arthritis Brother Arthritis Surgical History Status post insertion of spinal cord stimulator S/P arteriovenous (AV) fistula repair S/P arteriovenous (AV) fistula creation History of lithotripsy History of below-knee amputation of left lower extremity History of eye surgery History of temporal artery biopsy History of lymph node biopsy History of liver biopsy Partial nontraumatic amputation of right foot History of amputation of hallux History of carpal tunnel surgery History of hernia repair History of cholecystectomy History of hysterectomy History of tubal ligation Status post transmetatarsal amputation of right foot Social History Smoking Status: Never smoker second hand exposure: Yes alcohol intake: current details: rare substance use type: does not use ROS Constitutional Constitutional: Denies chills, fever(s), frequent falls, lethargy or weakness Eyes Eyes: Denies blind spots, change in vision or loss of vision ENT HEENT: Denies bleeding gums, hoarseness or sore throat Cardiovascular Cardiovascular: Denies abdominal pain, bluish discoloration of hand/feet, chest pain with activity, claudication, cold extremities, cyanosis, dyspnea on exertion, erythema on extremities, irregular heart rhythm, leg edema, leg ulcers, numbness in extremities or weakness in extremities Respiratory/Chest Respiratory/Chest: Denies cough, excessive phlegm production, shortness of breath at rest, shortness of breath with exertion or wheezing Gastrointestinal Gastrointestinal: Reports nausea and vomiting; Denies anorexia, change in stool character, constipation, diarrhea, melena or rectal bleeding Genitourinary Genitourinary: Denies dysuria or hematuria Musculoskeletal Musculoskeletal: Denies abnormal gait Integumentary Integumentary: Reports other Details: ; Denies erythema, non-healing lesions or wounds Neurologic Neurologic: Denies abnormal speech, focal weakness, headache(s), loss of vision, numbness, paresthesias or sensory deficit Hematologic/Lymphatic Hematologic/Lymphatic: Denies easy bleeding, easy bruising or lymphadenopathy Vital Signs Vital Signs Vital Signs: Weight Weight: 212 lb 14.4 oz Body Mass Index (BMI) 34.3 Physical Exam Const alert, oriented x3, no apparent distress and healthy appearing General Appearance: cooperative; Negative for combative or lethargic Orientation / Consciousness: awake Exam Limitations: no limitations HEENT Head and Scalp: normocephalic and atraumatic Eyes EOMs intact bilaterally General Eye: normal appearance of both eyes Neck full ROM, no lymphadenopathy, thyroid normal and No no carotid bruits General: trachea midline; Negative for lymphadenopathy or tenderness Thyroid: thyroid normal Lymph Lymphatic: Negative for no lymphadenopathy noted Resp normal respiratory effort, no use of accessory muscles and clear to auscultation bilaterally Effort and Inspection: Negative for labored, stridor or audible wheezes Cardio regular rate, regular rhythm and no murmurs Peripheral Pulses: brachial pulses present, radial pulses present, femoral pulses present, popliteal pulses present, posterior tibial pulses present and dorsalis pedis pulses present Back/Spine Cervical Spine: cervical ROM normal Extremity full ROM, normal capillary refill and no clubbing, cyanosis or edema Skin no rashes or lesions noted and no wounds Neuro oriented x3, CN's II-XII intact bilaterally, no focal motor deficits and no sensory deficits noted Psych thought process normal, cooperative, affect normal, speech normal and activity/motor behavior normal Assessment & Plan Assessment/Plan (1) Dialysis AV fistula malfunction: QUALIFIERS: Encounter type: initial encounter Qualified Code(s): T82.590A - Other mechanical complication of surgically created arteriovenous fistula, initial encounter PLAN: -fistulagram
[2023-09-23 15:07] LABS: Bedside Glucose 108 mg/dL (74-106)
--- NOTE | 2023-09-23 16:27 | PCM.OPRPT ---
Report of Operation Date of Procedure: 09/23/23 Pre-Operative Diagnosis: Malfunction of arteriovenous fistula Post-Operative Diagnosis: Same Surgery/Procedure Performed:: Fistulogram with angioplasty, left radiocephalic fistula Intravascular ultrasound of the radial artery and cephalic fistula Surgeon: Mikey Cavanaugh Type of Anesthesia: Local and Sedation,Conscious Estimated Blood Loss (mL): 7 Description of Procedure: HPI: Patient is a 53-year-old female with a left radiocephalic fistula which has had low flow volumes for approximately 1 month. Over the last several attempted sessions they have had inadequate flow and the most recent session was not able to be performed. She presents now for fistulogram. Description of procedure: Upon up to the informed consent and verification correct patient procedure site patient taken to the Production [facility] where she was positioned prepped and draped in usual sterile fashion. Timeouts performed constipation managed with Versed and fentanyl. Skin overlying the fistula was anesthetized 1% lidocaine and accessed with ultrasound guidance with a micropuncture needle and wire. This was then exchanged for a micropuncture sheath through which injection fistulogram was performed revealing satisfactory positioning with no extravasation or dissection. This revealed a high-grade stenosis greater than 75% of the proximal 3 cm of the fistula beyond the anastomosis. Using a command 18 wire we navigated the proximal anastomosis advancing a wire into the radial artery towards the wrist. The micropuncture sheath was then exchanged for a short 6 [place] fistula access sheath and the patient was then heparinized and on circulate for 3 minutes. Through the 6 [place] sheath an intravascular Rodríguez probe was advanced and recorded pullback performed of the radial artery and the anastomosis as well as the proximal segment of the fistula. This confirmed greater than 75% stenosis of the proximal segment of the fistula as well as gave reference vessel size of the radial artery and the fistula. A Serranator scoring angioplasty balloon 2.5 x 40 was then brought in the field prep for manufactures instructions. This then advanced over the wire and inflated to nominal for 2 minutes for each inflation across the lesion for total of 2 inflations. Repeat angiography revealed satisfactory response with no extravasation or dissection. Next a saba 4 x 2 angioplasty balloon was advanced over the wire and inflated for 2 inflations across the lesion to nominal for 3 minutes each. The balloon was then withdrawn and the completion fistulogram revealed satisfactory vessel response with no extravasation or dissection and no residual stenosis. There was brisk contrast transit across the proximal segment of the fistula and outflow into the upper arm. Completion fistulogram of the outflow vessels in their entirety to the cavoatrial junction was performed which revealed no significant stenosis of the outflow vessels. See no further lesions that required intervention a nylon pursestring suture was then placed at the access site and secured as the sheath was withdrawn. Manual pressure was then held for 10 minutes with satisfactory stasis noted. The patient was then taken to the recovery room with planned discharge to home.
== END 2023-09-23 15:40 | disposition home or self-care (01) ==
PROVIDERS: PCP Family Medicine; Referring Provider Surgery Trauma Surgery; Visit Provider Surgery Trauma Surgery
DX: T82.856A Stenosis of peripheral vascular stent, initial encounter (principal); N18.6 End stage renal disease; I12.0 Hypertensive chronic kidney disease with stage 5 chronic kidney disease or end stage renal disease; J44.9 Chronic obstructive pulmonary disease, unspecified; E11.22 Type 2 diabetes mellitus with diabetic chronic kidney disease; E11.42 Type 2 diabetes mellitus with diabetic polyneuropathy; E78.00 Pure hypercholesterolemia, unspecified; Z79.01 Long term (current) use of anticoagulants; Z79.899 Other long term (current) drug therapy; Z99.2 Dependence on renal dialysis; Y71.8 Miscellaneous cardiovascular devices associated with adverse incidents, not elsewhere classified
CPT/HCPCS: 36902; 37252; 37253; 76937; 82962; 99152; 99153; C1725; C1769; J7040

== ENCOUNTER → 2023-09-28 | Outpatient (CLI) | payer MEDICARE, SELFPAY ==
[2023-09-28 11:47] LABS: Anion Gap 10 (5-15); BUN 43 mg/dL (7-18); Calcium,Total 9.8 mg/dL (8.5-10.1); Chloride 94 mmol/L (98-107); Creatinine, Serum 6.12 mg/dL (0.55-1.02); EST Glomerular Filtration Rate 8 mL/min (>60); Est Glom Filt Rate - Afr Amer 9 mL/min (>60); Glucose 64 mg/dL (74-106); Potassium 4.6 mmol/L (3.5-5.1); Sodium Level 132 mmol/L (136-145)
== END | disposition home or self-care (01) ==
LOC: LAB 09:12
PROVIDERS: PCP Family Medicine; Referring Provider Anesthesiology Pain Medicine; Visit Provider Anesthesiology Pain Medicine
DX: E11.9 Type 2 diabetes mellitus without complications (principal)
CPT/HCPCS: 36415; 80048

== ENCOUNTER 2023-10-02 12:56 | Outpatient (CLI) | payer MEDICARE, SELFPAY ==
--- NOTE | 2023-10-02 12:57 | AVDS_ITS ---
Reason For Study: Problem w Dialysis Access LEFT Inflow, 154/80 cm/sec. Inflow, 418 ml/min. Anastomosis, 641/310 cm/sec. Anastomosis, 1176 ml/min. Prox graft, 486/238 cm/sec. Prox graft, 757 ml/min. Mid graft, 170/82 cm/sec. Mid graft, 866 ml/min. Distal graft, 101/50 cm/sec. Distal graft, 779 ml/min. Outflow, 175/124 cm/sec. Outflow, 905 ml/min. VL/AV Fistula/Dialysis Graft Scan Interpretation Summary Patent left radio-cephalic fistula with adequate flow volumes and no stenosis i dentified. Ordering Physician: Mikey Cavanaugh Referring Physician: Johann Jimenez Performed By: Marissa Clifton, RDCS, RVT
--- NOTE | 2023-10-02 12:57 | CDU_ITS ---
Reason For Study: Dizziness Rt. Velocities/BP Lt. Velocities/BP Prox CCA 112/21 cm/sec. Prox CCA 134/14 cm/sec. Mid CCA 94/19 cm/sec. Mid CCA 97/24 cm/sec. Dist CCA 92/19 cm/sec. Dist CCA 93/18 cm/sec. Prox ICA 88/30 cm/sec. Prox ICA 87/24 cm/sec. Mid ICA 87/28 cm/sec. Mid ICA 100/34 cm/sec. Dist ICA 95/33 cm/sec. Dist ICA 81/24 cm/sec. Rt. ICA/CCA = 1.0. Lt. ICA/CCA = 1.0. Prox ECA 138/10 cm/sec. Prox ECA 114/18 cm/sec. Rt. Vert. 76/25 cm/sec. Lt. Vert. 64/22 cm/sec. Right Extracranial There is heterogeneous, smooth atherosclerotic plaque noted in the right common carotid artery. There is no significant atherosclerotic plaque noted in the right internal carotid artery. There is no significant atherosclerotic plaque noted in the right external carotid artery. Antegrade flow is noted in the right vertebral artery. Left Extracranial There is no significant atherosclerotic plaque noted in the left common carotid artery. There is heterogeneous, smooth atherosclerotic plaque noted in the left internal carotid artery. There is no significant atherosclerotic plaque noted in the left external carotid artery. Antegrade flow is noted in the left vertebral artery. Procedure Carotid Duplex [id number]. This is a Carotid Duplex examination using B-mode, color flow and specral Doppler. Exam performed in department. VL/Carotid Duplex Ultrasound Interpretation Summary Normal right extracranial internal carotid. Mild (<50%) stenosis left extracranial internal carotid. Patent and antegrade vertebrals bilaterally. Ordering Physician: Gillian Box Referring Physician: Johann Jimenez Performed By: Marissa Clifton, RYNECS, RVT
== END 2023-10-02 23:59 | disposition home or self-care (01) ==
LOC: CVS 12:57
PROVIDERS: PCP Family Medicine; Referring Provider Surgery Trauma Surgery; Visit Provider Surgery Trauma Surgery
DX: R42 Dizziness and giddiness (principal); T82.590A Other mechanical complication of surgically created arteriovenous fistula, initial encounter; I65.22 Occlusion and stenosis of left carotid artery; Z99.2 Dependence on renal dialysis
CPT/HCPCS: 93880; 93990

== ENCOUNTER 2023-10-20 18:41 | Emergency (ER) | payer MEDICARE, SELFPAY ==
[2023-10-20 18:41] VITALS: BP 141/63; PULSE 96; RESP 18; TEMP 36.6; O2SAT 10; BMI 34.5
[2023-10-20 19:40] LABS: Absolute Lymphocyte Count 0.86 X10^3/uL (0.83-4.51); Absolute Neutrophil Count 6.9 X10^3/uL (2.0-7.7); Basophil# 0.01 X10^3/uL; Basophil% 0.1 % (0-1); Eosinophil# 0.07 X10^3/uL; Eosinophils% 0.8 % (0-5); Hemoglobin 8.5 g/dL (12.0-15.0); Lymphocyte # 0.86 X10^3/ul (0.83-4.51); Lymphocyte % 10.1 % (19-41); Mean Corp Hgb Conc 32.7 g/dL (32-36); Mean Corpuscular Hgb 32.8 pg (27.0-32.0); Mean Corpuscular Volume 100.4 fL (81-99); Mean Platelet Vol. 10.5 fl (6.2-12.0); Monocyte# 0.52 X10^3/uL; Monocyte% 6.1 % (0-10); NRBC Flagged by Analyzer 0 % (0-5); Neutrophil # 6.93 X10^3/uL (2.7-7.7); Neutrophil % 81.6 % (47-70); Platelet Count 165 K/mm3 (150-450); RBC Distribution Width CV 14.8 % (11.6-14.6); Red Blood Count 2.59 M/mm3 (4.2-5.4); White Blood Count 8.5 K/mm3 (4.4-11.0)
[2023-10-20 20:18] LABS: ALB/GLOB Ratio 0.6 RATIO (0.9-2.4); AST(SGOT) 14 U/L (15-37); Alanine Aminotransfer ALT/SGPT 17 U/L (13-56); Alkaline Phosphatase 103 U/L (45-117); Anion Gap 12 (5-15); BUN 39 mg/dL (7-18); BUN/Creat Ratio 6.4 RATIO (10-20); Calcium,Total 9.3 mg/dL (8.5-10.1); Chloride 94 mmol/L (98-107); Creatinine, Serum 6.05 mg/dL (0.55-1.02); EST Glomerular Filtration Rate 8 mL/min (>60); Est Glom Filt Rate - Afr Amer 9 mL/min (>60); Estimated Creatinine Clearance 12.78 ml/min; Glucose 362 mg/dL (74-106); Potassium 4.3 mmol/L (3.5-5.1); Sodium Level 132 mmol/L (136-145)
--- NOTE | 2023-10-20 22:11 | EX.ED.DYSGE1 ---
HPI History of Present Illness Chief Complaint: Flank Pain Detail of Chief Complaint: Patient reports right flank pain radiating anteriorly, she points to the le Informant: patient Onset/Context/Timing Onset: Days (Onset 3 to 4 days ago) Context: Sudden Onset Timing: Continuous and Waxes and wanes Quality: Sharp Location: Left paralumbar radiating anteriorly did not flank Current Severity: Mild Maximum Severity: Severe Worsened by: Movement and palpation Relieved by: Nothing Associated Symptoms Associated Symptoms: Temperature 102.0 ?F today Narrative Narrative: Patient is a 53-year-old woman with history of end-stage renal disease on home dialysis 5 days out of the week, diabetes on insulin, GERD, hypercholesterolemia, hypertension nonalcoholic stat hepatitis, Crohn's disease, atrial fibrillation on anticoagulant who presents with left paralumbar pain that radiates anteriorly. She does not make urine. She had a nerve stimulator placed 2 to 3 weeks ago. This was second attempt because there was problems with the first. has not noted any drainage from the incision site. There is a remote history of renal lithiasis. Patient denies headache, visual, ocular auditory symptoms. Patient denies chest pain, orthopnea or PND. Patient has chronic dyspnea and dyspnea on exertion. Patient does have a cough that is chronic. The cough is nonproductive. Patient has chronic nausea. She has not had vomiting. She denies diarrhea, black or maroon-colored stool. Prior similar symptoms: Yes (Kidney stones) Recent Illness/Hospitalization: No [facility] Medical History ESRD (end stage renal disease) on dialysis Lung nodule seen on imaging study Atrial fibrillation, controlled Essential hypertension Crohn's disease Hepatosplenomegaly Diarrhea HINTON (nonalcoholic steatohepatitis) CKD (chronic kidney disease) Anemia in chronic kidney disease (CKD) GERD (gastroesophageal reflux disease) Diastolic dysfunction Depression Diabetes mellitus Blindness Cataract (lens) fragments in eye following cataract surgery, bilateral Acute bronchitis, unspecified Uses prosthesis Seasonal allergies Wears glasses Anxiety Insulin dependent diabetes mellitus Uses wheelchair Arthritis DVT (deep venous thrombosis) History of Holter monitoring High cholesterol TIA (transient ischemic attack) Seizures Dietary restriction History of hiatal hernia Non-smoker CPAP (continuous positive airway pressure) dependence Sleep apnea Shortness of breath on exertion Hypertension History of echocardiogram History of stress test Cardiology follow-up encounter Positive QuantiFERON-TB Gold test Hx of pancreatitis Enteritis Nausea and vomiting Alternating constipation and diarrhea Viral gastroenteritis Acute right flank pain COVID-19 virus detected Pneumonia due to COVID-19 virus Below-knee amputation of left lower extremity Osteomyelitis of left foot History of stroke COPD (chronic obstructive pulmonary disease) IBS (irritable bowel syndrome) Cellulitis of left foot Iron (Fe) deficiency anemia Acute kidney injury Right middle lobe pneumonia Hypomagnesemia Osteomyelitis of right foot Peripheral neuropathy Infection of right great toe due to methicillin resistant Staphylococcus aureus (MRSA) Cellulitis of right foot History of MRSA infection Asthma Pulmonary hypertension SLE (systemic lupus erythematosus) Home Medications ?Medication ?Instructions ?Recorded ?Last Taken ?Type duloxetine 60 mg capsule,delayed 60 mg PO QHS depression 11/26/12 01/19/17 History release insulin regular hum U-500 conc 500 2.2 units subcut CONT insulin pump 10/02/15 01/19/17 History unit/mL subcutaneous soln trazodone 100 mg tablet 150 mg PO QHS sleep 12/27/15 01/18/17 History ergocalciferol (vitamin D2) 1,250 50,000 unit PO QWEEK supplement 01/24/16 01/19/17 History mcg (50,000 unit) capsule albuterol sulfate 2.5 mg/3 mL 2.5 mg inhalation Q4H PRN PRN 06/09/16 09/01/16 History (0.083 %) solution for nebulization Wheezing gabapentin 800 mg tablet 800 mg PO TID neuropathy 05/19/17 Unknown History rosuvastatin 10 mg tablet 40 mg PO QHS cholesterol 06/03/17 Unknown History insulin aspart U-100 100 unit/mL See Protocol subcut ACHS diabetes 07/30/18 Unknown History (3 mL) subcutaneous pen magnesium oxide 400 mg (241.3 mg 400 mg PO DAILYCM supplement 07/30/18 Unknown History magnesium) tablet hydroxyzine pamoate 50 mg capsule 50 mg PO TID PRN Anxiety 02/20/20 Unknown History duloxetine 30 mg capsule,delayed 30 mg PO DAILY depression 05/09/20 Unknown History release omeprazole 20 mg capsule,delayed 40 mg PO DAILY 07/18/21 06/20/22 History release ondansetron 4 mg disintegrating 8 mg PO Q8H PRN PRN Nausea 09/03/21 Unknown History tablet diphenoxylate-atropine 2.5 1 tab PO BID PRN diarrhea #180 tabs 08/04/22 Unknown Rx mg-0.025 mg tablet (Lomotil) hyoscyamine sulfate 0.125 mg tablet 0.125 mg PO BID-QID PRN abdominal 08/04/22 Unknown Rx pain #360 tabs apixaban 5 mg tablet (Eliquis) 5 mg PO BID blood thinner #60 tabs 10/14/22 09/22/23 Rx albuterol sulfate 90 mcg/actuation 2 puff inhalation Q4-6H PRN 02/26/23 Unknown History aerosol inhaler (ProAir HFA) shortness of breath or wheezing brimonidine 0.2 % eye drops 1 drp ophthalmic (eye) DAILY 02/26/23 Unknown History calcitriol 0.5 mcg capsule 0.5 mcg PO BID 03/26/23 Unknown History calcium acetate(phosphat bind) 667 2,668 mg PO TID binder 03/26/23 Unknown History mg capsule iron sucrose 100 mg iron/5 mL 100 mg .Route .weekly 03/26/23 Unknown History intravenous solution (Venofer) epoetin regan-epbx 2,000 unit/mL 2,000 unit subcut QWEEK 05/14/23 Unknown History injection solution (Retacrit) fludrocortisone 0.1 mg tablet 0.1 mg PO DAILY #30 tabs 06/03/23 Unknown Rx midodrine 10 mg tablet 10 mg PO TID #90 tabs 07/22/23 Unknown Rx fenofibrate nanocrystallized 48 mg 48 mg PO DAILY 08/11/23 Unknown History tablet ursodiol 300 mg capsule 300 mg PO BID LIVER #180 caps 08/17/23 Unknown Rx risankizumab-rzaa 360 mg/2.4 mL 360 mg (2.4 mL) subcut .COMPLEX 08/21/23 Unknown Rx (150 mg/mL) subcut wearable #2.4 mL injector (Skyrizi) budesonide 3 mg 9 mg (3 x 3 mg) PO DAILY #90 ea 08/24/23 Unknown Rx capsule,delayed,extended release oxycodone-acetaminophen 5 mg-325 1 tab PO Q6H PRN PRN Pain 3 days 10/21/23 Unknown Rx mg tablet #12 TABLETS Allergy/AdvReac Type Severity Reaction Status Date / Time atorvastatin (From Lipitor) AdvReac Severe Vomiting Verified 10/20/23 18:44 oxycodone HCl (From Percocet) AdvReac Severe Vomiting Verified 10/20/23 18:44 Family History Mother Hypertension Cancer skin Grandmother Hypertension Diabetes Brother Cancer NHL Arthritis Brother Arthritis Surgical History Status post insertion of spinal cord stimulator S/P arteriovenous (AV) fistula repair S/P arteriovenous (AV) fistula creation History of lithotripsy History of below-knee amputation of left lower extremity History of eye surgery History of temporal artery biopsy History of lymph node biopsy History of liver biopsy Partial nontraumatic amputation of right foot History of amputation of hallux History of carpal tunnel surgery History of hernia repair History of cholecystectomy History of hysterectomy History of tubal ligation Status post transmetatarsal amputation of right foot Social History Smoking Status: Never smoker second hand exposure: Yes alcohol intake: current details: rare substance use type: does not use ROS ROS ED Constitutional Constitutional ED: Reports chills and fever(s); Denies subjective, sweats or weight loss Eyes Eyes: Denies blurry vision, change in vision or diplopia ENT ENT ED: Denies ear pain or rhinorrhea Cardiovascular Cardiovascular: Denies chest pain, orthopnea, palpitations or paroxysmal nocturnal dyspnea Respiratory/Chest Respiratory/Chest: Reports cough, dyspnea and dyspnea on exertion; Denies orthopnea or paroxysmal nocturnal dyspnea Gastrointestinal Gastrointestinal: Reports abdominal pain and nausea; Denies constipation, diarrhea, melena or vomiting Genitourinary Genitourinary ED: Reports other Details: Patient does not make urine. Musculoskeletal Musculoskeletal: Reports back pain; Denies arthralgias, myalgias or neck pain Integumentary Denies abscess, Abrasions or rash Neurologic Neurologic: Denies headache(s) or paresthesias Endocrine Endocrinology: Denies cold intolerance or heat intolerance Hematologic/Lymphatic Hematologic/Lymphatic: Reports systems reviewed and no addt'l complaints, except as documented EXAM Physical Exam Const Vital Signs: 10/20/23 18:41 10/20/23 22:35 10/21/23 00:00 Temperature 98 F Temperature Source Temporal Pulse Rate 96 104 H 96 Respiratory Rate 18 18 Blood Pressure 141/63 H 120/67 99/60 Blood Pressure Mean 89 84 71 Pulse Ox 10 93 95 Oxygen Delivery Method Room Air Room Air Positive well nourished and well developed Constitutional Narrative: Patient appears ill. Does not appear toxic. She appears uncomfortable. General Appearance ED: well developed and pallor; Negative for cyanotic, diaphoretic or NAD HEENT Reports moist mucous membranes HEENT Narrative: Head is atraumatic and normocephalic. Ears normal. Nares patent. Eyes PERRL and EOMs intact bilaterally General Eye ED: Yes pale conjunctiva; Negative for scleral icterus Neck no lymphadenopathy, supple and no JVD Chest Wall inspection of chest normal and palpation of chest normal Resp normal respiratory effort and clear to auscultation bilaterally Cardio regular rate, regular rhythm, S1 normal heart sound, S2 normal heart sound and no murmurs GI normal to inspection, nondistended, normoactive bowel sounds, non-distended and no masses; Negative for hepatosplenomegaly Back/Spine no CVA tenderness Thoracic Spine / Upper Back: Negative for thoracic spinal tenderness Lumbar Spine / Lower Back: lumbar spinal tenderness L2 and L3 (There is some redness and puffiness and fluctuance at the incision site. There is no drainage noted. There is no warmth or induration.) Extremity Extremity Narrative: AKA on the left. Neuro oriented x3 and CN's II-XII intact bilaterally Sensorium / Orientation: alert Psych Mood & Affect: depressed Skin No no wounds and No skin turgor normal Skin Narrative: Redness noted incision site midline over the upper lumbar region. General Skin Exam: elasticity normal and pallor; Negative for jaundice MDM MDM MDM Narrative Medical decision making narrative: Differential diagnosis is fever unknown etiology, viral illness, infected nerve stimulator wound; doubt kidney infection or ureterolithiasis since she does not make urine. Symptoms are not consistent with pneumonia. Will obtain CBC to assess white count H&H as well as differential. Clinically patient appears pale and anemic. CBC to assess BUN and electrolytes. Nurse protocol was initiated. Additionally ESR and CRP was ordered. Lab Data Attestation: I reviewed the patient's lab results. Lab results narrative: CBC is remarkable for macrocytic anemia. ESR slightly elevated. It is not elevated once corrected for age. Sodium is 132 with a chloride of 94. BUN and creatinine are elevated at baseline. She is on dialysis at home 5 times a week. C-reactive protein elevated 27.4. Labs: Laboratory Results - last 24 hr 10/20/23 19:02 WBC 8.5 RBC 2.59 L Hgb 8.5 L Hct 26.0 L MCV 100.4 H MCH 32.8 H MCHC 32.7 RDW Std Deviation 54.0 H RDW Coeff of Michael 14.8 H Plt Count 165 MPV 10.5 Immature Gran % (Auto) 1.300 H Neut % (Auto) 81.6 H Lymph % (Auto) 10.1 L [place] % (Auto) 6.1 Eos % (Auto) 0.8 Baso % (Auto) 0.1 Absolute Neuts (auto) 6.9 Absolute Lymphs (auto) 0.86 Nucleated RBC % 0 ESR 33 H Sodium 132 L Potassium 4.3 Chloride 94 L Carbon Dioxide 26.0 Anion Gap 12 BUN 39 H Creatinine 6.05 H Estim Creat Clear Calc 12.78 Est GFR (MDRD) Af Amer 9 L Est GFR (MDRD) Non-Af 8 L BUN/Creatinine Ratio 6.4 L Glucose 362 H Calcium 9.3 Total Bilirubin 0.50 AST 14 L ALT 17 Alkaline Phosphatase 103 C-React Prot Ext Range 27.40 H Total Protein 8.0 Albumin 3.0 L Globulin 5.0 H Albumin/Globulin Ratio 0.6 L Treatment and Re-Evaluation :: Patient required second dose of morphine. She received a third dose of morphine prior to discharge. She her results were reviewed with her and . Plan is to discharge to home. She states if she receives pain medicine this will not violate her contract with Dr. Krause. Procedures Other Procedures Procedure(s): Since the incision site was erythematous with fluctuance the area was prepped draped sterile manner. 0.2 to 0.3 cc of what appears to be bloody fluid was aspirated. This may be a hematoma due to the fact that she is on anticoagulant. Gram stain and culture was sent. These will not be done. Since patient's white count is normal she is not febrile and fluid did not appear purulent will discharge to home without antibiotics. Discharge Plan Triage Chief Complaint: Flank Pain ED Provider: Hema Padilla Dx/Rx/DC Orders Clinical Impression: Myofascial pain syndrome of lumbar spine, ESRD (end stage renal disease) on dialysis, Hematoma of surgical wound of skin after surgical procedure, Type 1 diabetes Instructions: ED Myofascial Pain Syndrome, ED Post Op Wound Check, Bleeding Prescriptions: New oxycodone-acetaminophen 5-325 mg tablet 1 tab PO Q6H PRN PRN (Reason: Pain) 3 Days Qty: 12 0RF No Action omeprazole 20 mg capsule,delayed release(DR/EC) 40 mg PO DAILY ondansetron 4 mg tablet,disintegrating 8 mg PO Q8H PRN PRN (Reason: Nausea) brimonidine 0.2 % drops 1 drp ophthalmic (eye) DAILY Patient Comments: INSTILL 1 DROP INTO BOTH EYES TWICE A DAY DIRECTED albuterol sulfate [ProAir HFA] 90 mcg/actuation HFA aerosol inhaler 2 puff inhalation Q4-6H PRN (Reason: shortness of breath or wheezing) calcitriol 0.5 mcg capsule 0.5 mcg PO BID calcium acetate(phosphat bind) 667 mg capsule 2,668 mg PO TID Patient Comments: take 4 caps with meals Venofer 100 mg iron/5 mL solution 100 mg .Route .weekly Rx Instructions: 100 mg WEEKLY; Retacrit 2,000 unit/mL solution 2,000 unit subcut QWEEK duloxetine 60 MG capsule 60 mg PO QHS Patient Comments: DEPRESSION AND PAIN CONTROL insulin regular hum U-500 conc 20 ML solution 2.2 units SC CONT Patient Comments: insulin pump Rx Instructions: changed site today 02/19/20 trazodone 100 MG tablet 150 mg PO QHS Patient Comments: SLEEP ergocalciferol (vitamin D2) 50,000 UNIT capsule 50,000 unit PO QWEEK Patient Comments: supplement albuterol sulfate 2.5 MG/3 ML solution for nebulization 2.5 mg INHALATION Q4H PRN PRN (Reason: Wheezing) Patient Comments: shortness of breath gabapentin 800 MG tablet 800 mg PO TID Patient Comments: nerve pain rosuvastatin 10 mg tablet 40 mg PO QHS magnesium oxide 400 MG tablet 400 mg PO DAILYCM insulin aspart U-100 100 UNITS/ML insulin pen See Protocol SC ACHS Protocol: 6. Sliding Scale Insulin Custom Condition: mg/dl range Dose/Route: Number of Units Protocol Text: Custom Sliding Scale Patient Comments: if blood sugar is over 200. calculate reading over 200. divide in half and give that many units of insulin. duloxetine 30 mg capsule,delayed release(DR/EC) 30 mg PO DAILY hydroxyzine pamoate 50 MG capsule 50 mg PO TID PRN (Reason: Anxiety) fenofibrate nanocrystallized 48 mg tablet 48 mg PO DAILY diphenoxylate-atropine [Lomotil] 2.5-0.025 mg tablet 1 tab PO BID PRN (Reason: diarrhea) Qty: 180 3RF hyoscyamine sulfate 0.125 mg tablet 0.125 mg PO BID-QID PRN (Reason: abdominal pain) Qty: 360 3RF Eliquis 5 mg tablet 5 mg PO BID Qty: 60 11RF fludrocortisone 0.1 mg tablet 0.1 mg PO DAILY Qty: 30 3RF midodrine 10 mg tablet 10 mg PO TID Qty: 90 1RF Rx Instructions: do not give last dose of day after 6PM or within 4 hrs of bedtime ursodiol 300 mg capsule 300 mg PO BID Qty: 180 3RF Skyrizi 360 mg/2.4 mL (150 mg/mL) wearable injector 360 mg subcut .COMPLEX Qty: 2.4 6RF Rx Instructions: 360 mg subcutaneously every 8 weeks; budesonide 3 mg capsule,delayed,extend.release 9 mg PO DAILY Qty: 90 1RF Primary Care Provider: Johann Jimenez Referrals: Johann Jimenez MD [Primary Care Provider] - Johann Dunlap MD [Med Staff - Active Staff] - 2 Days for wound check Print Language: Kiswahili Disposition Disposition: Home, Self Care
[2023-10-20] MEDS: Morphine 4 MG/ML Syringe IV (22:26)
[2023-10-20] MEDS: Ondansetron 4 MG/2 ML Vial IV (22:26)
[2023-10-20 22:35] VITALS: BP 120/67; PULSE 104; RESP 18; O2SAT 93
[2023-10-20 23:09] LABS: Erythrocyte Sedimentation Rate 33 mm/hr (0-30)
[2023-10-21] VITALS: BP 99/60; PULSE 96; O2SAT 95
[2023-10-21] MEDS: Morphine 4 MG/ML Syringe IV ×2 (00:44→02:57)
[2023-10-21 02:00] VITALS: BP 114/70; PULSE 95; O2SAT 94
[2023-10-21 03:17] VITALS: BP 117/68; PULSE 95; RESP 15; TEMP 36.7; O2SAT 94
== END 2023-10-21 03:20 | disposition home or self-care (01) ==
PROVIDERS: Emergency Provider Emergency Medicine; PCP Family Medicine; Visit Provider Emergency Medicine
DX: L76.31 Postprocedural hematoma of skin and subcutaneous tissue following a dermatologic procedure (principal); N18.6 End stage renal disease; I12.0 Hypertensive chronic kidney disease with stage 5 chronic kidney disease or end stage renal disease; J44.9 Chronic obstructive pulmonary disease, unspecified; I48.91 Unspecified atrial fibrillation; Z79.4 Long term (current) use of insulin; E10.22 Type 1 diabetes mellitus with diabetic chronic kidney disease; Z79.01 Long term (current) use of anticoagulants; Z99.2 Dependence on renal dialysis; E78.00 Pure hypercholesterolemia, unspecified; Z86.73 Personal history of transient ischemic attack (TIA), and cerebral infarction without residual deficits; G47.30 Sleep apnea, unspecified; Z99.89 Dependence on other enabling machines and devices; F32.A Depression, unspecified; Z79.899 Other long term (current) drug therapy; K21.9 Gastro-esophageal reflux disease without esophagitis; Z90.49 Acquired absence of other specified parts of digestive tract; Z90.710 Acquired absence of both cervix and uterus; Z98.51 Tubal ligation status; M79.18 Myalgia, other site
CPT/HCPCS: 10160; 96374; 96375; 96376; 99282; 80053; 85025; 85652; 86140; 87070; 87075; 87077; 87186; 87205; A4216; J2405

== ENCOUNTER → 2023-10-22 | Outpatient (CLI) | payer MEDICARE, SELFPAY ==
--- NOTE | 2023-10-22 15:37 | CT_ITS ---
STUDY: CT LUMBAR SPINE WITH CONTRAST REASON FOR EXAM: Female, 53 years old. R/O SPINAL INFX RADIATION DOSAGE (If Supplied By Facility): CTDIvol = ( 27.00 ) mGy, DLP = ( 1094.94 ) mGycm TECHNIQUE: The patient was scanned in a multi detector CT scanner. High resolution transaxial imaging was performed following the intravenous administration of 100 CC ISOVUE 370. Images were obtained from thoracic to sacrum. Sagittal and coronal images were reconstructed. Individualized dose optimization techniques were used for this CT. The protocol utilizes one or more of the following dose reduction techniques: automated exposure control, adjustment of mA and/or kV according to patient size,and/or use of iterative reconstruction technique. COMPARISON: Lumbar spine radiograph February 11, 2023. MRI lumbar spine May 12, 2016. FINDINGS: Normal lumbar lordosis. There is no substantial scoliosis. Normal vertebrae of the lumbar spine. Subcutaneous neurostimulator right flank with leads entering the canal at T12-L1 and L1-L2. Leads terminate at T7 level within the canal posteriorly. L1-2: Normal endplates. Normal disc height and morphology. Normal bilateral facet joints. Normal central canal and bilateral lateral recesses. Normal bilateral intervertebral neural foramina. L2-3: Normal endplates. Normal disc height and morphology. Normal bilateral facet joints. Normal central canal and bilateral lateral recesses. Normal bilateral intervertebral neural foramina. L3-4: Normal endplates. Normal disc height and morphology. Normal bilateral facet joints. Normal central canal and bilateral lateral recesses. Normal bilateral intervertebral neural foramina. L4-5: Normal endplates. Normal disc height and morphology. Normal bilateral facet joints. Normal central canal and bilateral lateral recesses. Normal bilateral intervertebral neural foramina. L5-S1: Normal endplates. Normal disc height and morphology. Normal bilateral facet joints. Normal central canal and bilateral lateral recesses. Normal bilateral intervertebral neural foramina. Normal visualized paraspinous soft tissue structures. Multiple bilateral renal cysts. CT/Spine Lumbar WITH Contrast IMPRESSION: Intraspinal neurostimulator. No acute disease. Electronically Signed: Brayan Joseph MD at 16:27 EDT ,
== END | disposition home or self-care (01) ==
LOC: CT 15:34
PROVIDERS: PCP Family Medicine; Referring Provider Anesthesiology Pain Medicine; Visit Provider Anesthesiology Pain Medicine
DX: G95.9 Disease of spinal cord, unspecified (principal)
CPT/HCPCS: 72132; Q9967

== ENCOUNTER 2023-10-23 13:33 | Inpatient (IN) | payer MEDICARE, SELFPAY ==
[2023-10-23] VITALS (11 sets, daily range): BP systolic 90–121; BP diastolic 50–104; PULSE 74–78; RESP 16–19; TEMP 36.8–37.4; O2SAT 91–100; BMI 34.7; BMI 33.0
--- NOTE | 2023-10-23 16:44 | EKG12_ITS ---
Test Reason : WOUND Blood Pressure : / mmHG Vent. Rate : 074 BPM Atrial Rate : 074 BPM P-R Int : 152 ms QRS Dur : 088 ms QT Int : 414 ms P-R-T Axes : 047 -24 045 degrees QTc Int : 459 ms Normal sinus rhythm Low voltage QRS Nonspecific T wave abnormality Abnormal ECG Confirmed by BRE KUMAR, CARLY ([id number]), continuity editor MELISSA TAVERAS ([id number]) on 10/26/2023 6:48:44 AM Referred By: Confirmed By:CARLY DÍAZ MD
--- NOTE | 2023-10-23 16:49 | EDS_ITS ---
HPI History of Present Illness Chief Complaint: Wound Informant: patient Narrative Narrative: Patient is a 53-year-old female with complex medical history including chronic pain, end-stage renal disease on hemodialysis (last had dialysis on Thursday is due for dialysis today), type 1 diabetes mellitus, SLE, Crohn's disease and atrial fibrillation (on Eliquis) presenting for positive wound culture. Patient had spinal stimulator placed [address] Krause. Last week she started noticed increased pain. She does been having worsening nausea and vomiting. She is started having yellow drainage from the incision site. She was seen in our ER 3 days ago and fluid sample was sent for culture. It came back positive for Pseudomonas species sensitivities are pending and she was informed to come back to the emergency room today. Patient states has been having fevers at home as high as 102 ?F. 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 Gandhi. Is complaining of pain in her lower back at this time. Does not make urine regularly. [facility] Medical History ESRD (end stage renal disease) on dialysis Lung nodule seen on imaging study Atrial fibrillation, controlled Essential hypertension Crohn's disease Hepatosplenomegaly Diarrhea HINTON (nonalcoholic steatohepatitis) CKD (chronic kidney disease) Anemia in chronic kidney disease (CKD) GERD (gastroesophageal reflux disease) Diastolic dysfunction Depression Diabetes mellitus Blindness Cataract (lens) fragments in eye following cataract surgery, bilateral Acute bronchitis, unspecified Uses prosthesis Seasonal allergies Wears glasses Anxiety Insulin dependent diabetes mellitus Uses wheelchair Arthritis DVT (deep venous thrombosis) History of Holter monitoring High cholesterol TIA (transient ischemic attack) Seizures Dietary restriction History of hiatal hernia Non-smoker CPAP (continuous positive airway pressure) dependence Sleep apnea Shortness of breath on exertion Hypertension History of echocardiogram History of stress test Cardiology follow-up encounter Positive QuantiFERON-TB Gold test Hx of pancreatitis Enteritis Nausea and vomiting Alternating constipation and diarrhea Viral gastroenteritis Acute right flank pain COVID-19 virus detected Pneumonia due to COVID-19 virus Below-knee amputation of left lower extremity Osteomyelitis of left foot History of stroke COPD (chronic obstructive pulmonary disease) IBS (irritable bowel syndrome) Cellulitis of left foot Iron (Fe) deficiency anemia Acute kidney injury Right middle lobe pneumonia Hypomagnesemia Osteomyelitis of right foot Peripheral neuropathy Infection of right great toe due to methicillin resistant Staphylococcus aureus (MRSA) Cellulitis of right foot History of MRSA infection Asthma Pulmonary hypertension SLE (systemic lupus erythematosus) Home Medications ?Medication ?Instructions ?Recorded ?Last Taken ?Type duloxetine 60 mg capsule,delayed 60 mg PO QHS depression 11/26/12 10/22/23 History release insulin regular hum U-500 conc 500 2.2 units subcut CONT insulin pump 10/02/15 10/23/23 History unit/mL subcutaneous soln trazodone 100 mg tablet 150 mg PO QHS sleep 12/27/15 10/22/23 History ergocalciferol (vitamin D2) 1,250 50,000 unit PO QWEEK supplement 01/24/16 10/16/23 History mcg (50,000 unit) capsule albuterol sulfate 2.5 mg/3 mL 2.5 mg inhalation Q4H PRN PRN 06/09/16 09/01/16 History (0.083 %) solution for nebulization Wheezing gabapentin 800 mg tablet 800 mg PO TID neuropathy 05/19/17 10/22/23 History rosuvastatin 10 mg tablet 40 mg PO QHS cholesterol 06/03/17 10/22/23 History insulin aspart U-100 100 unit/mL See Protocol subcut ACHS diabetes 07/30/18 10/22/23 History (3 mL) subcutaneous pen magnesium oxide 400 mg (241.3 mg 400 mg PO DAILYCM supplement 07/30/18 10/22/23 History magnesium) tablet hydroxyzine pamoate 50 mg capsule 50 mg PO TID PRN Anxiety 02/20/20 10/22/23 History duloxetine 30 mg capsule,delayed 30 mg PO DAILY depression 05/09/20 10/22/23 History release ondansetron 4 mg disintegrating 8 mg PO Q8H PRN PRN Nausea 09/03/21 Unknown His tory tablet diphenoxylate-atropine 2.5 1 tab PO BID PRN diarrhea #180 tabs 08/04/22 10/22/23 Rx mg-0.025 mg tablet (Lomotil) hyoscyamine sulfate 0.125 mg tablet 0.125 mg PO BID-QID PRN abdominal 08/04/22 Unknown Rx pain #360 tabs apixaban 5 mg tablet (Eliquis) 5 mg PO BID blood thinner #60 tabs 10/14/22 10/21/23 Rx albuterol sulfate 90 mcg/actuation 2 puff inhalation Q4-6H PRN 02/26/23 Unknown History aerosol inhaler (ProAir HFA) shortness of breath or wheezing brimonidine 0.2 % eye drops 1 drp ophthalmic (eye) DAILY . 02/26/23 10/22/23 History calcitriol 0.5 mcg capsule 0.5 mcg PO BID . 03/26/23 10/22/23 History calcium acetate(phosphat bind) 667 2,668 mg PO TID binder 03/26/23 10/22/23 History mg capsule iron sucrose 100 mg iron/5 mL 100 mg .Route .weekly . 03/26/23 Unknown History intravenous solution (Venofer) epoetin regan-epbx 2,000 unit/mL 2,000 unit subcut QWEEK . 05/14/23 10/19/23 History injection solution (Retacrit) fludrocortisone 0.1 mg tablet 0.1 mg PO DAILY . #30 tabs 06/03/23 10/22/23 Rx fenofibrate nanocrystallized 48 mg 48 mg PO DAILY . 08/11/23 10/22/23 History tablet ursodiol 300 mg capsule 300 mg PO BID LIVER #180 caps 08/17/23 10/22/23 Rx risankizumab-rzaa 360 mg/2.4 mL 360 mg (2.4 mL) subcut .COMPLEX . 08/21/23 08/28/23 Rx (150 mg/mL) subcut wearable #2.4 mL injector (Skyrizi) budesonide 3 mg 9 mg (3 x 3 mg) PO DAILY . #90 ea 08/24/23 10/22/23 Rx capsule,delayed,extended release cinacalcet 30 mg tablet 30 mg PO DAILY . 10/23/23 10/22/23 History midodrine 10 mg tablet 20 mg PO 4XD PRN . 10/23/23 10/22/23 History mupirocin 2 % topical ointment 1 applic topical DAILY . 10/23/23 10/22/23 History omeprazole 40 mg capsule,delayed 40 mg PO DAILY GERD 10/23/23 10/22/23 History release propranolol 60 mg capsule,24 60 mg PO DAILY . 10/23/23 10/22/23 History hr,extended release Allergy/AdvReac Type Severity Reaction Status Date / Time atorvastatin (From Lipitor) AdvReac Severe Vomiting Verified 10/23/23 13:34 oxycodone HCl (From Percocet) AdvReac Severe Vomiting Verified 10/23/23 13:34 Family History Mother Hypertension Cancer skin Grandmother Hypertension Diabetes Brother Cancer NHL Arthritis Brother Arthritis Surgical History Status post insertion of spinal cord stimulator S/P arteriovenous (AV) fistula repair S/P arteriovenous (AV) fistula creation History of lithotripsy History of below-knee amputation of left lower extremity History of eye surgery History of temporal artery biopsy History of lymph node biopsy History of liver biopsy Partial nontraumatic amputation of right foot History of amputation of hallux History of carpal tunnel surgery History of hernia repair History of cholecystectomy History of hysterectomy History of tubal ligation Status post transmetatarsal amputation of right foot Social History Smoking Status: Never smoker second hand exposure: Yes alcohol intake: current details: rare substance use type: does not use ROS ROS ED Constitutional Constitutional ED: Reports chills and fever(s) Cardiovascular Cardiovascular: Denies chest pain Respiratory/Chest Respiratory/Chest: Reports dyspnea and other Details: Reports chronic shortness of breath, no acute change ; Denies cough Gastrointestinal Gastrointestinal: Reports nausea, vomiting and other Details: Reports chronic nausea, vomiting and abdominal distention Musculoskeletal Musculoskeletal: Reports back pain; Denies myalgias Integumentary Reports rash and other Details: Draining wound in the lower back Neurologic Neurologic: Denies weakness Hematologic/Lymphatic Hematologic/Lymphatic: Reports easy bleeding, easy bruising and other Details: On Eliquis EXAM Physical Exam Const Vital Signs: 10/23/23 13:34 10/23/23 15:53 10/23/23 15:55 Temperature 98.8 F 98.2 F Temperature Source Oral Oral Pulse Rate 77 77 77 Respiratory Rate 16 16 16 Blood Pressure 109/65 121/62 H 121/62 H Blood Pressure Mean 79 81 81 Pulse Ox 91 96 96 Oxygen Delivery Method Room Air Room Air Room Air 10/23/23 16:00 10/23/23 17:00 10/23/23 17:00 Temperature 99 F 99.0 F Temperature Source Oral Oral Pulse Rate 74 75 75 Respiratory Rate 18 19 H 19 H Blood Pressure 112/65 100/56 L 100/56 L Blood Pressure Mean 80 70 70 Pulse Ox 94 93 93 Oxygen Delivery Method Room Air Room Air Room Air 10/23/23 17:51 Temperature 99.0 F Temperature Source Pulse Rate 78 Respiratory Rate 17 Blood Pressure 113/57 L Blood Pressure Mean 75 Pulse Ox 98 Oxygen Delivery Method Positive well nourished and well developed General Appearance ED: well developed and NAD HEENT Reports moist mucous membranes Eyes PERRL and EOMs intact bilaterally Neck supple Chest Wall inspection of chest normal and palpation of chest normal Resp normal respiratory effort and clear to auscultation bilaterally Cardio regular rate and regular rhythm GI non-tender Inspection: abdominal distention Palpation: soft; Negative for tender Back/Spine Back/Spine Narrative: No midline tenderness. Normal range of motion of the back. Extremity normal to inspection Extremity Narrative: AV fistula in the left forearm with palpable thrill General Extremety ED: Negative for edema General Extremity: Negative for edema Neuro oriented x3 Sensorium / Orientation: alert Motor Exam: Negative for general weakness Psych mental status grossly normal Skin Skin Narrative: Patient has a surgical incision over her lumbar spine with associated serous drainage and tenderness. No crepitus, fluctuance or bleeding appreciated. No significant cellulitic changes however the wound itself is slightly ulcerated and erythematous. MDM MDM MDM Narrative Medical decision making narrative: Patient is evaluated for concern for surgical site infection and positive wound culture. Wound culture resulted preliminary for gram-negative rods for possible Pseudomonas species. Patient's surgeon, Dr. Krause, spoke with Dr. Sosa infectious disease. Plan is for admission for IV antibiotics with goal to hopefully be able to spare the pump as it is providing the patient a lot of pain relief however if needed it can be removed. Patient is given morphine for pain control and restarted on her [place] (states she has not had any today). First dose of Zosyn was given in the emergency room. Blood cultures obtained and I did recheck labs. Addition as patient has not had dialysis today did obtain an EKG and will check a renal function panel. Will recheck CRP and ESR as well as CBC for her white blood cell count. Will discuss the case with admitting physician, Dr. Holly. Patient has had chronic abnormalities of her labs with no acute changes. She does have CKD with elevation of her BUN to creatinine show to expect given her end-stage renal disease however her potassium is also mildly elevated 5.9. She does not have EKG changes for hyperkalemia but likely will require dialysis tomorrow. Her CRP and ESR are uptrending consistent with infection. Cultures are pending of the blood. Patient given morphine and the [place] for pain control in the emergency room. Lab Data Attestation: I reviewed the patient's lab results. Labs: Laboratory Results - last 24 hr 10/23/23 16:33 WBC 9.7 RBC 2.60 L Hgb 8.5 L Hct 26.3 L MCV 101.2 H MCH 32.7 H MCHC 32.3 RDW Std Deviation 54.9 H RDW Coeff of Michael 15.1 H Plt Count 183 MPV 10.5 Immature Gran % (Auto) 0.800 Neut % (Auto) 84.6 H Lymph % (Auto) 8.7 L Dickson % (Auto) 4.9 Eos % (Auto) 0.9 Baso % (Auto) 0.1 Absolute Neuts (auto) 8.2 H Absolute Lymphs (auto) 0.84 Nucleated RBC % 0 ESR 36 H PT 16.6 H INR 1.3 APTT 33.8 Sodium 131 L Potassium 5.9 H Chloride 93 L Carbon Dioxide 26.0 BUN 66 H Creatinine 8.33 H* Estim Creat Clear Calc 9.30 Est GFR (MDRD) Af Amer 7 L Est GFR (MDRD) Non-Af 5 L BUN/Creatinine Ratio 7.9 L Glucose 147 H Calcium 9.4 Phosphorus 8.8 H C-React Prot Ext Range 38.60 H Albumin 3.1 L Rhythm Strip Rhythm Strip: Sinus Rhythm Rate: 74 Ectopy: None EKG Initial EKG: Attestation: I personally reviewed and interpreted this EKG as follows: Interpretation: Sinus Rhythm Comments: Normal sinus rhythm rate of 74 bpm Left axis deviation Low voltage QRS Normal ST segments Management Discussion w/another healthcare provider: Hospitalist and Director Patient Accounting (Dr. Krause-pain management) Discharge Plan Triage Chief Complaint: Wound ED Provider: Diana Her Dx/Rx/DC Orders Clinical Impression: Surgical site infection, ESRD (end stage renal disease) on dialysis, Type 1 diabetes, Hyperkalemia Primary Care Provider: Johann Jimenez Disposition Disposition: Acute Care Hospital [facility]
--- NOTE | 2023-10-23 16:50 | NURSING ---
DR AVILA PAGED. LEFT MESSAGE
--- NOTE | 2023-10-23 17:05 | HP.PCM.HOS_ITS ---
HPI - General General Date of Admission: 10/23/23 Date of Service: 10/23/23 Chief Complaint: wound HPI Narrative FORD HESTER, is a 53 F with a past medical history as outlined including chronic back pain and surgery on hemodialysis was admitted through the ED on 10/23/2023 with a complaint of back pain at the site of nerve stimulator insertion. She had a spinal stimulator inserted about 3 weeks ago by pain management, namely Dr. Krause. She said she started noticing increased pain at the site of the nerve stimulator insertion. Has been also told her develops increased redness there and she had fever and chills as well as some nausea and vomiting. She says she went to see Dr. Krause and there was some fluid drained from the site which was sent for cultures. A day prior to admission she noted that there was some yellowish discharge from the site. She was called today that the fluid that was sent for cultures came back positive for Pseudomonas so she was asked to come back to the ED. She did admit to persistent fever and chills and rated the pain in her back at more than 10 out of 10. Review of systems otherwise negative. She is on hemodialysis and she is conducted at home by herself. Review of systems otherwise negative. Vitals in the ED where blood pressure 113/57, pulse rate of 78, respirate rate of 17 and temperature of 99 Fahrenheit. Oxygen saturation was 98% on 2 L of oxygen. CBC showed hemoglobin of 8.5 and WBC of 9.7 as well as platelets of 193. INR was 1.3. BMP showed sodium of 131 potassium of 5.9 and creatinine of 8.33. She has been admitted to be managed for surgical site infection. The ED doctor spoke to Dr. Krause who stated he had spoken to Dr. Sosa of [place]. Plan is to treat patient with antibiotics in a bid to try to salvage the nerve stimulator. If it is unsalvageable, pain management will remove it. FORMERLY [facility], [facility] Medical History ESRD (end stage renal disease) on dialysis Lung nodule seen on imaging study Atrial fibrillation, controlled Essential hypertension Crohn's disease Hepatosplenomegaly Diarrhea HINTON (nonalcoholic steatohepatitis) CKD (chronic kidney disease) Anemia in chronic kidney disease (CKD) GERD (gastroesophageal reflux disease) Diastolic dysfunction Depression Diabetes mellitus Blindness Cataract (lens) fragments in eye following cataract surgery, bilateral Acute bronchitis, unspecified Uses prosthesis Seasonal allergies Wears glasses Anxiety Insulin dependent diabetes mellitus Uses wheelchair Arthritis DVT (deep venous thrombosis) History of Holter monitoring High cholesterol TIA (transient ischemic attack) Seizures Dietary restriction History of hiatal hernia Non-smoker CPAP (continuous positive airway pressure) dependence Sleep apnea Shortness of breath on exertion Hypertension History of echocardiogram History of stress test Cardiology follow-up encounter Positive QuantiFERON-TB Gold test Hx of pancreatitis Enteritis Nausea and vomiting Alternating constipation and diarrhea Viral gastroenteritis Acute right flank pain COVID-19 virus detected Pneumonia due to COVID-19 virus Below-knee amputation of left lower extremity Osteomyelitis of left foot History of stroke COPD (chronic obstructive pulmonary disease) IBS (irritable bowel syndrome) Cellulitis of left foot Iron (Fe) deficiency anemia Acute kidney injury Right middle lobe pneumonia Hypomagnesemia Osteomyelitis of right foot Peripheral neuropathy Infection of right great toe due to methicillin resistant Staphylococcus aureus (MRSA) Cellulitis of right foot History of MRSA infection Asthma Pulmonary hypertension SLE (systemic lupus erythematosus) Home Medications ?Medication ?Instructions ?Recorded ?Last Taken ?Type duloxetine 60 mg capsule,delayed 60 mg PO QHS depression 11/26/12 10/22/23 History release insulin regular hum U-500 conc 500 2.2 units subcut CONT insulin pump 10/02/15 10/23/23 History unit/mL subcutaneous soln trazodone 100 mg tablet 150 mg PO QHS sleep 12/27/15 10/22/23 History ergocalciferol (vitamin D2) 1,250 50,000 unit PO QWEEK supplement 01/24/16 10/16/23 History mcg (50,000 unit) capsule albuterol sulfate 2.5 mg/3 mL 2.5 mg inhalation Q4H PRN PRN 06/09/16 09/01/16 History (0.083 %) solution for nebulization Wheezing gabapentin 800 mg tablet 800 mg PO TID neuropathy 05/19/17 10/22/23 History rosuvastatin 10 mg tablet 40 mg PO QHS cholesterol 06/03/17 10/22/23 History insulin aspart U-100 100 unit/mL See Protocol subcut ACHS diabetes 07/30/18 10/22/23 History (3 mL) subcutaneous pen magnesium oxide 400 mg (241.3 mg 400 mg PO DAILYCM supplement 07/30/18 10/22/23 History magnesium) tablet hydroxyzine pamoate 50 mg capsule 50 mg PO TID PRN Anxiety 02/20/20 10/22/23 History duloxetine 30 mg capsule,delayed 30 mg PO DAILY depression 05/09/20 10/22/23 History release ondansetron 4 mg disintegrating 8 mg PO Q8H PRN PRN Nausea 09/03/21 Unknown History tablet diphenoxylate-atropine 2.5 1 tab PO BID PRN diarrhea #180 tabs 08/04/22 10/22/23 Rx mg-0.025 mg tablet (Lomotil) hyoscyamine sulfate 0.125 mg tablet 0.125 mg PO BID-QID PRN abdominal 08/04/22 Unknown Rx pain #360 tabs apixaban 5 mg tablet (Eliquis) 5 mg PO BID blood thinner #60 tabs 10/14/22 10/21/23 Rx albuterol sulfate 90 mcg/actuation 2 puff inhalation Q4-6H PRN 02/26/23 Unknown History aerosol inhaler (ProAir HFA) shortness of breath or wheezing brimonidine 0.2 % eye drops 1 drp ophthalmic (eye) DAILY . 02/26/23 10/22/23 History calcitriol 0.5 mcg capsule 0.5 mcg PO BID . 03/26/23 10/22/23 History calcium acetate(phosphat bind) 667 2,668 mg PO TID binder 03/26/23 10/22/23 History mg capsule iron sucrose 100 mg iron/5 mL 100 mg .Route .weekly . 03/26/23 Unknown History intravenous solution (Venofer) epoetin regan-epbx 2,000 unit/mL 2,000 unit subcut QWEEK . 05/14/23 10/19/23 History injection solution (Retacrit) fludrocortisone 0.1 mg tablet 0.1 mg PO DAILY . #30 tabs 06/03/23 10/22/23 Rx fenofibrate nanocrystallized 48 mg 48 mg PO DAILY . 08/11/23 10/22/23 History tablet ursodiol 300 mg capsule 300 mg PO BID LIVER #180 caps 08/17/23 10/22/23 Rx risankizumab-rzaa 360 mg/2.4 mL 360 mg (2.4 mL) subcut .COMPLEX . 08/21/23 08/28/23 Rx (150 mg/mL) subcut wearable #2.4 mL injector (Radha) budesonide 3 mg 9 mg (3 x 3 mg) PO DAILY . #90 ea 08/24/23 10/22/23 Rx capsule,delayed,extended release cinacalcet 30 mg tablet 30 mg PO DAILY . 10/23/23 10/22/23 History midodrine 10 mg tablet 20 mg PO 4XD PRN . 10/23/23 10/22/23 History mupirocin 2 % topical ointment 1 applic topical DAILY . 10/23/23 10/22/23 History omeprazole 40 mg capsule,delayed 40 mg PO DAILY GERD 10/23/23 10/22/23 History release propranolol 60 mg capsule,24 60 mg PO DAILY . 10/23/23 10/22/23 History hr,extended release Allergy/AdvReac Type Severity Reaction Status Date / Time atorvastatin (From Lipitor) AdvReac Severe Vomiting Verified 10/23/23 13:34 oxycodone HCl (From Percocet) AdvReac Severe Vomiting Verified 10/23/23 13:34 Family History Mother Hypertension Cancer skin Grandmother Hypertension Diabetes Brother Cancer NHL Arthritis Brother Arthritis Surgical History Status post insertion of spinal cord stimulator S/P arteriovenous (AV) fistula repair S/P arteriovenous (AV) fistula creation History of lithotripsy History of below-knee amputation of left lower extremity History of eye surgery History of temporal artery biopsy History of lymph node biopsy History of liver biopsy Partial nontraumatic amputation of right foot History of amputation of hallux History of carpal tunnel surgery History of hernia repair History of cholecystectomy History of hysterectomy History of tubal ligation Status post transmetatarsal amputation of right foot Social History Smoking Status: Never smoker second hand exposure: Yes alcohol intake: current details: rare substance use type: does not use ROS Constitutional Constitutional: Reports chills, fatigue, fever(s) and malaise; Denies anorexia or weakness Eyes Eyes: Denies change in vision ENT HEENT: Denies dysphagia or headache(s) Cardiovascular Cardiovascular: Denies chest pain, dyspnea on exertion, edema, lightheadedness, orthopnea, palpitations, paroxysmal nocturnal dyspnea, rapid heart rate or syncope Respiratory/Chest Respiratory/Chest: Denies cough, productive cough, shortness of breath at rest or shortness of breath with exertion Gastrointestinal Gastrointestinal: Denies abdominal pain, constipation, diarrhea, nausea or vomiting Genitourinary Genitourinary: Denies burning urination or dysuria Musculoskeletal Musculoskeletal: Reports back pain; Denies arthralgias, joint pain, joint swelling, myalgias or neck pain Neurologic Neurologic: Denies confusion, dizziness, focal weakness, headache(s), numbness or syncope Psychiatric Psychiatric: Denies anxiety or depression Endocrine Endocrinology: Denies change in body appearance Vital Signs Vital Signs Vital Signs: 10/23/23 13:34 10/23/23 15:53 10/23/23 15:55 Temperature 98.8 F 98.2 F Temperature Source Oral Oral Pulse Rate 77 77 77 Respiratory Rate 16 16 16 Blood Pressure 109/65 121/62 H 121/62 H Blood Pressure Mean 79 81 81 Pulse Ox 91 96 96 Oxygen Delivery Method Room Air Room Air Room Air 10/23/23 16:00 10/23/23 17:00 10/23/23 17:00 Temperature 99 F 99.0 F Temperature Source Oral Oral Pulse Rate 74 75 75 Respiratory Rate 18 19 H 19 H Blood Pressure 112/65 100/56 L 100/56 L Blood Pressure Mean 80 70 70 Pulse Ox 94 93 93 Oxygen Delivery Method Room Air Room Air Room Air Weight Weight: 215 lb Body Mass Index (BMI) 34.7 Physical Exam Const alert, oriented x3 and no apparent distress Constitutional Narrative: super morbid obesity General Appearance: cooperative HEENT normocephalic, head/scalp atraumatic, hearing grossly normal bilaterally and moist oral mucous membranes Mouth: oral and palatal mucosa normal Eyes PERRL, EOMs intact bilaterally and conjunctivae normal Resp normal respiratory effort, no retractions, no use of accessory muscles and clear to auscultation bilaterally Cardio regular rate, regular rhythm, S1 normal heart sound, S2 normal heart sound and no murmurs GI normal to inspection, nondistended, normoactive bowel sounds, soft to palpation and non-tender Extremity Extremity Narrative: LLE prosthesis. AV fistula in NORMA sahu good thrill Skin Skin Narrative: has redness and swelling over lowerr back at site of spinal stimulator. Differential warmth, and mild discharge rom site Neuro oriented x3, CN's II-XII intact bilaterally, moves all extremities and no focal motor deficits Sensorium / Orientation: awake and alert Motor Exam: strength 5/5 throughout Psych affect normal Results Lab / Micro Data 10/23/23 16:33 10/23/23 16:33 Assessment & Plan Assessment/Plan (1) Surgical site infection: PLAN: Plan #Surgical site infection at site of spinal stimulator insertion * admit to med surg * wound cultures grew Pseudomonas aeruginosa * start on IV zosyn. * consult ID * blood cultures ordered. * PO tylenol, PO oxycodone and IV morphine prn for pain. * #ESRD; on HD MWF. Consult nephrology. She usually does her HD at home. On Cinacalcet and calcitriol #Hyperkalemia: Potassium is 5.9. Likely due to ESRD. Nephrology consulted as above. #Type 1 diabetes mellitus: On insulin pump. Insulin sliding scale. Accu-Cheks ACHS. #History of lupus: On stable. Follow-up with rheumatology on outpatient basis #Hyperlipidemia: On statin #History of iron deficiency anemia: Usually requires Venofer periodically. #History of Crohn's disease: On Skyrizi. Follow-up with gastroenterology on outpatient basis. On cholestyramine for diarrhea. #Hypertension: On amlodipine and metoprolol #Nonalcoholic steatohepatitis: On ursodiol DVT prophylaxis: Heparin Code status: full code * Patient counseled extensively about different types of CODE STATUS including full code, DNR CCA and DNR CCA. * Patient elects to be full code. * Total [id number] time 17 minutes. Charges/Coding Visit Charges Inpatient E&M: 51575 Init Hosp L3 Procedures Hospitalists Procedures: 39557 Advncd Care Plan 30 Min
[2023-10-23] MEDS: Ondansetron 4 MG/2 ML Vial IV ×2 (17:07→21:11)
[2023-10-23] MEDS: Piperacil/Tazobactam 3.375 GM in 0.9% Normal Saline (50mL MB+) 50 ML IV (17:07)
[2023-10-23 17:08] LABS: Absolute Lymphocyte Count 0.84 X10^3/uL (0.83-4.51); Absolute Neutrophil Count 8.2 X10^3/uL (2.0-7.7); Basophil# 0.01 X10^3/uL; Basophil% 0.1 % (0-1); Eosinophil# 0.09 X10^3/uL; Eosinophils% 0.9 % (0-5); Hematocrit 26.3 % (37-47); Hemoglobin 8.5 g/dL (12.0-15.0); International Normalized Ratio 1.3; Lymphocyte # 0.84 X10^3/ul (0.83-4.51); Lymphocyte % 8.7 % (19-41); Mean Corp Hgb Conc 32.3 g/dL (32-36); Mean Corpuscular Hgb 32.7 pg (27.0-32.0); Mean Corpuscular Volume 101.2 fL (81-99); Mean Platelet Vol. 10.5 fl (6.2-12.0); Monocyte# 0.47 X10^3/uL; Monocyte% 4.9 % (0-10); NRBC Flagged by Analyzer 0 % (0-5); Neutrophil # 8.17 X10^3/uL (2.7-7.7); Neutrophil % 84.6 % (47-70); Partial Thromboplast Time 33.8 Seconds (24.1-36.2); Platelet Count 183 K/mm3 (150-450); Prothrombin Time (Protime)PT. 16.6 SECONDS (11.7-14.9); RBC Distribution Width CV 15.1 % (11.6-14.6); RBC Distribution Width SD 54.9 fl (35.1-43.9); White Blood Count 9.7 K/mm3 (4.4-11.0)
[2023-10-23 17:10] LABS: Erythrocyte Sedimentation Rate 36 mm/hr (0-30)
[2023-10-23] MEDS: Morphine 4 MG/ML Syringe IV ×2 (17:27→18:33)
[2023-10-23 17:30] LABS: Albumin, Serum 3.1 g/dL (3.2-5.0); BUN 66 mg/dL (7-18); BUN/Creat Ratio 7.9 RATIO (10-20); Calcium,Total 9.4 mg/dL (8.5-10.1); Chloride 93 mmol/L (98-107); Creatinine, Serum 8.33 mg/dL (0.55-1.02); EST Glomerular Filtration Rate 5 mL/min (>60); Est Glom Filt Rate - Afr Amer 7 mL/min (>60); Glucose 147 mg/dL (74-106); Phosphorus 8.8 mg/dL (2.5-4.9); Potassium 5.9 mmol/L (3.5-5.1); Sodium Level 131 mmol/L (136-145)
[2023-10-23] MEDS: HYDROcodone Bitartrate/Apap 5/325 Tablet PO (18:22)
[2023-10-23] MEDS: Gabapentin 800 MG Tablet PO (21:11)
[2023-10-23] MEDS: Acetaminophen 325 MG Tablet 650 MG PO (21:11)
[2023-10-23] MEDS: oxyCODONE 5 MG Tablet PO (21:11)
[2023-10-23] MEDS: Cefepime HCl 1 GM in 0.9% Normal Saline (50mL MB+) 50 ML IV (21:17)
[2023-10-23] MEDS: Ursodiol 250 MG Tablet PO (21:33)
[2023-10-23] MEDS: DULoxetine Hcl 60 MG Capsule PO (21:34)
[2023-10-23] MEDS: Calcitriol 0.25 MCG Capsule 0.5 MCG PO (21:34)
[2023-10-23] MEDS: traZODone 100 MG Tablet 150 MG PO (21:35)
[2023-10-23] MEDS: Sodium Polystyrene Sulfonate 15 GM/60 ML UDC 30 GM PO (21:36)
[2023-10-23] MEDS: ROSUVASTATIN CALCIUM 40 MG TABLET PO (21:37)
[2023-10-23] MEDS: Ergocalciferol 1.25 MG (50, 000 UNIT) Capsule PO (21:37)
[2023-10-24] VITALS (17 sets, daily range): BP systolic 106–287; BP diastolic 61–74; PULSE 64–80; RESP 16–20; TEMP 36.5–37.2; O2SAT 96–100; BMI 34.5; BMI 32.6
[2023-10-24] MEDS: Insulin Basal Pump 2.2 UNIT SC (00:49)
[2023-10-24] MEDS: Midodrine HCl 5 MG Tablet 20 MG PO ×4 (00:56→16:53)
[2023-10-24] MEDS: Morphine 2 MG/ML Syringe 1 MG IV ×3 (03:11→19:11)
[2023-10-24] MEDS: oxyCODONE 5 MG Tablet PO ×3 (05:34→21:48)
[2023-10-24] MEDS: Gabapentin 800 MG Tablet PO ×3 (05:34→21:32)
[2023-10-24] MEDS: Acetaminophen 325 MG Tablet 650 MG PO ×3 (05:35→21:48)
[2023-10-24 07:05] LABS: Bedside Glucose 98 mg/dL (74-106)
--- NOTE | 2023-10-24 07:32 | PCM.PN.HOSP ---
Reason for Visit Reason for Visit: Diagnoses Infection following a procedure, other surgical site, initial encounter (10/23/23) Subjective Subjective Patient is a 53-year-old lady admitted with surgical site infection at the site of spinal stimulator insertion.Patient procedure was performed by Dr. Krause 3 weeks prior to her admission Objective Data Objective Data Vital Signs: Vital Signs Temp Pulse Resp BP Pulse Ox O2 Del Method O2 Flow Rate 97.9 F 80 20 H 106/63 100 Nasal Cannula 2 10/24/23 07:00 10/24/23 07:00 10/24/23 07:00 10/24/23 07:00 10/24/23 07:00 10/24/23 07:00 10/24/23 07:00 Oxygen Flow Rate (L/min) 2 Oxygen Delivery Method Nasal Cannula Weight: 97.2 kg Body Mass Index (BMI) 34.5 Intake & Output: Intake and Output for Last 24 Hours 10/22/23 10/23/23 10/24/23 23:59 23:59 23:59 Intake Total 100 / 400 500 / 500 Balance 100 / 400 500 / 500 Lab / Micro Data 10/23/23 16:33 10/23/23 16:33 Labs: Laboratory Results - last 24 hr 10/23/23 16:33: WBC 9.7, RBC 2.60 L, Hgb 8.5 L, Hct 26.3 L, MCV 101.2 H, MCH 32.7 H, MCHC 32.3, RDW Std Deviation 54.9 H, RDW Coeff of Michael 15.1 H, Plt Count 183, MPV 10.5, Immature Gran % (Auto) 0.800, Neut % (Auto) 84.6 H, Lymph % (Auto) 8.7 L, Robertson % (Auto) 4.9, Eos % (Auto) 0.9, Baso % (Auto) 0.1, Absolute Neuts (auto) 8.2 H, Absolute Lymphs (auto) 0.84, Nucleated RBC % 0, ESR 36 H, PT 16.6 H, INR 1.3, APTT 33.8, Sodium 131 L, Potassium 5.9 H, Chloride 93 L, Carbon Dioxide 26.0, BUN 66 H, Creatinine 8.33 H*, Estim Creat Clear Calc 9.30, Est GFR (MDRD) Af Amer 7 L, Est GFR (MDRD) Non-Af 5 L, BUN/Creatinine Ratio 7.9 L, Glucose 147 H, Calcium 9.4, Phosphorus 8.8 H, C-React Prot Ext Range 38.60 H, Albumin 3.1 L 10/24/23 06:45: POC Glucose 98 Rhythm Strip Rhythm Strip: Sinus Rhythm Rate: 74 Ectopy: None Physical Exam Narrative GENERAL: cooperative HEENT: Atraumatic; normocephalic EYES; Anicteric, Normal Conjunctiva NECK; supple, normal thyroid, RESPIRATORY: Diminished to auscultation CARDIOVASCULAR: Regular S1 S2, GI: soft, normoactive bowel sounds, : No Renal angle tenderness; EXTREMITIES: Left BKA MUSCULOSKELETAL: No muscle wasting NEURO: Awake; no lateralizing signs. SKIN: An area of erythema with warmth at the incision site in the lower lumbar region PSYCH; Flat affect Assessment & Plan Assessment/Plan (1) Surgical site infection: PLAN: Plan Patient is a 53-year-old lady admitted with surgical site infection at the site of spinal stimulator insertion.Patient procedure was performed by Dr. Krause 3 weeks prior to her admission 1. Surgical site infection at the sites of spinal stimulator insertion ? Wound cultures as outpatient grew Pseudomonas patient started on Zosyn blood cultures ordered consult placed to pain management as well as infectious disease 2. End-stage renal disease ? On hemodialysis on Wednesdays and Fridays, nephrology consulted for dialysis orders 3. Hyperkalemia ? Secondary to patient ESRD plan is managed with dialysis and Kayexalate 4. Diabetes mellitus type 1 ? Patient is on insulin pump patient to manage 5. Lupus ? Stable patient is followed by rheumatology as outpatient 6. Dyslipidemia ?Patient is on statin therapy, continued at home dose 7. Anemia ? Secondary to chronic disorder/ESRD monitoring H&H and transfuse if patient becomes symptomatic or hemoglobin falls below 7 8. History of Crohn's disease - On Skyrizi. Follow-up with gastroenterology on outpatient basis. On cholestyramine for diarrhea. #9. Hypertension ? Blood pressure controlled, home medications continued with dose adjustment as needed 10. Nonalcoholic fatty liver disease ? Followed by GI as outpatient 11. DVT prophylaxis ? SC heparin Time spent in the patient's overall evaluation,decision-making process, review of diagnostic data, adjustment of management, discussion with other providers, nursing nursing and ancillary staff involved in patient's care documentation, 53Minutes Charges/Coding Visit Charges Inpatient E&M: 77158 Subs Hosp L3
[2023-10-24] MEDS: 0.9% Saline Lock 10 ML Syringe IV ×2 (08:13→11:41)
[2023-10-24] MEDS: 0.9% Normal Saline 1,000 ML IV.SOLN. 1000 ML OPERA.SITE (08:21)
[2023-10-24] MEDS: Midodrine HCl 5 MG Tablet 10 MG PO (08:22)
--- NOTE | 2023-10-24 09:23 | CON.PCM.RE_ITS ---
Assessment & Plan Assessment/Plan (1) ESRD (end stage renal disease) on dialysis: PLAN: dialysis today. next dialysis on Thursday. Pt on home hemodlialysis 4- 5x/week with AVF (2) Hyperkalemia: PLAN: kayexalate, dialysis today, check in am (3) Surgical site infection: PLAN: wound cx with psag s/p spinal stimulator placement 3 weeks ago (4) Secondary hyperparathyroidism: PLAN: sensipar calcitriol (5) Iron (Fe) deficiency anemia: QUALIFIERS: Iron deficiency anemia type: other iron deficiency Q ualified Code(s): D50.8 - Other iron deficiency anemias PLAN: hgb 8.5g KURT with dialysis (6) DM type 2 (diabetes mellitus, type 2): (7) Hx of BKA: HPI Consult Data Date of Consult: 10/25/23 HPI Narrative Reason for Consultation: ESRD renal mgmt HPI Narrative: FORD HESTER, is a 53 F who presents with low back pain over incision site past week after spinal stimulator placed 3 weeks ago. She developed a fever T 102 on Thursday, seen in ED with wound culture sent showing pseudomona aeruginosa. She had a CT lumbar spine with iv contrast. She was sent home without antibiotics and followed up with pain mgmt. She is admitted via ED for continued back pain with yellow drainage from incision site. She was started on pip-tazo iv this admission. Blood cx sent. She has a history of chronic back pain which the symptoms improved with spinal stimulator. Pain in low back is different from her chronic back pain, worse with minimal movement. She has ESRD on Home hemodialysis. Currently receiving dialysis attempting fluid removal as tolerated with support of midodrine for chronic hypotension. Potassium was elevated at 5.8 on admit. She has a complicated medical history with DM type 2 with Left BKA, SLE, hx TB, Crohns disease, atrial fibrillation with Eliquis on hold for procedure. [facility] Medical History (Updated 10/24/23 @ 11:[address] Emily Gandhi DO) Iron (Fe) deficiency anemia Crohn's disease Depression Asthma Atrial fibrillation Migraines Stroke/cerebrovascular accident ESRD (end stage renal disease) on dialysis Lung nodule seen on imaging study Blindness Cataract (lens) fragments in eye following cataract surgery, bilateral Acute bronchitis, unspecified Atrial fibrillation, controlled Essential hypertension Uses prosthesis Seasonal allergies Wears glasses Anxiety Insulin dependent diabetes mellitus Uses wheelchair Arthritis DVT (deep venous thrombosis) History of Holter monitoring High cholesterol TIA (transient ischemic attack) Seizures Dietary restriction History of hiatal hernia Non-smoker CPAP (continuous positive airway pressure) dependence Sleep apnea Shortness of breath on exertion Hypertension History of echocardiogram History of stress test Cardiology follow-up encounter Positive QuantiFERON-TB Gold test Hx of pancreatitis Hepatosplenomegaly Enteritis Nausea and vomiting Alternating constipation and diarrhea Diarrhea HINTON (nonalcoholic steatohepatitis) CKD (chronic kidney disease) Viral gastroenteritis Acute right flank pain Anemia in chronic kidney disease (CKD) COVID-19 virus detected Pneumonia due to COVID-19 virus Below-knee amputation of left lower extremity Osteomyelitis of left foot History of stroke COPD (chronic obstructive pulmonary disease) IBS (irritable bowel syndrome) GERD (gastroesophageal reflux disease) Diastolic dysfunction Cellulitis of left foot Acute kidney injury Right middle lobe pneumonia Hypomagnesemia Osteomyelitis of right foot Peripheral neuropathy Depression Infection of right great toe due to methicillin resistant Staphylococcus aureus (MRSA) Cellulitis of right foot History of MRSA infection Diabetes mellitus Asthma Pulmonary hypertension SLE (systemic lupus erythematosus) Home Medications ?Medication ?Instructions ?Recorded ?Last Taken ?Type duloxetine 60 mg capsule,delayed 60 mg PO QHS depression 11/26/12 10/22/23 History release insulin regular hum U-500 conc 500 2.2 units subcut CONT insulin pump 10/02/15 10/23/23 History unit/mL subcutaneous soln trazodone 100 mg tablet 150 mg PO QHS sleep 12/27/15 10/22/23 History ergocalciferol (vitamin D2) 1,250 50,000 unit PO QWEEK supplement 01/24/16 10/16/23 History mcg (50,000 unit) capsule albuterol sulfate 2.5 mg/3 mL 2.5 mg inhalation Q4H PRN PRN 06/09/16 09/01/16 History (0.083 %) solution for nebulization Wheezing gabapentin 800 mg tablet 800 mg PO TID neuropathy 05/19/17 10/22/23 History rosuvastatin 10 mg tablet 40 mg PO QHS cholesterol 06/03/17 10/22/23 History insulin aspart U-100 100 unit/mL See Protocol subcut ACHS diabetes 07/30/18 10/22/23 History (3 mL) subcutaneous pen magnesium oxide 400 mg (241.3 mg 400 mg PO DAILYCM supplement 07/30/18 10/22/23 History magnesium) tablet hydroxyzine pamoate 50 mg capsule 50 mg PO TID PRN Anxiety 02/20/20 10/22/23 History duloxetine 30 mg capsule,delayed 30 mg PO DAILY depression 05/09/20 10/22/23 History release ondansetron 4 mg disintegrating 8 mg PO Q8H PRN PRN Nausea 09/03/21 Unknown History tablet diphenoxylate-atropine 2.5 1 tab PO BID PRN diarrhea #180 tabs 08/04/22 10/22/23 Rx mg-0.025 mg tablet (Lomotil) hyoscyamine sulfate 0.125 mg tablet 0.125 mg PO BID-QID PRN abdominal 08/04/22 Unknown Rx pain #360 tabs apixaban 5 mg tablet (Eliquis) 5 mg PO BID blood thinner #60 tabs 10/14/22 10/21/23 Rx albuterol sulfate 90 mcg/actuation 2 puff inhalation Q4-6H PRN 02/26/23 Unknown History aerosol inhaler (ProAir HFA) shortness of breath or wheezing brimonidine 0.2 % eye drops 1 drp ophthalmic (eye) DAILY . 02/26/23 10/22/23 History calcitriol 0.5 mcg capsule 0.5 mcg PO BID . 03/26/23 10/22/23 History calcium acetate(phosphat bind) 667 2,668 mg PO TID binder 03/26/23 10/22/23 History mg capsule iron sucrose 100 mg iron/5 mL 100 mg .Route .weekly . 03/26/23 Unknown History intravenous solution (Venofer) epoetin regan-epbx 2,000 unit/mL 2,000 unit subcut QWEEK . 05/14/23 10/19/23 History injection solution (Retacrit) fludrocortisone 0.1 mg tablet 0.1 mg PO DAILY . #30 tabs 06/03/23 10/22/23 Rx fenofibrate nanocrystallized 48 mg 48 mg PO DAILY . 08/11/23 10/22/23 History tablet ursodiol 300 mg capsule 300 mg PO BID LIVER #180 caps 08/17/23 10/22/23 Rx risankizumab-rzaa 360 mg/2.4 mL 360 mg (2.4 mL) subcut .COMPLEX . 08/21/23 08/28/23 Rx (150 mg/mL) subcut wearable #2.4 mL injector (Radha) budesonide 3 mg 9 mg (3 x 3 mg) PO DAILY . #90 ea 08/24/23 10/22/23 Rx capsule,delayed,extended release cinacalcet 30 mg tablet 30 mg PO DAILY . 10/23/23 10/22/23 History midodrine 10 mg tablet 20 mg PO 4XD PRN . 10/23/23 10/22/23 History mupirocin 2 % topical ointment 1 applic topical DAILY . 10/23/23 10/22/23 History omeprazole 40 mg capsule,delayed 40 mg PO DAILY GERD 10/23/23 10/22/23 History release propranolol 60 mg capsule,24 60 mg PO DAILY . 10/23/23 10/22/23 History hr,extended release Allergy/AdvReac Type Severity Reaction Status Date / Time atorvastatin (From Lipitor) AdvReac Severe Vomiting Verified 10/23/23 13:34 oxycodone HCl (From Percocet) AdvReac Severe Vomiting Verified 10/23/23 13:34 Family History Mother Hypertension Cancer skin Grandmother Hypertension Diabetes Brother Cancer NHL Arthritis Brother Arthritis Surgical History (Updated 10/24/23 @ 11:[address] Emily Gandhi DO) Status post insertion of spinal cord stimulator S/P arteriovenous (AV) fistula repair S/P arteriovenous (AV) fistula creation History of lithotripsy History of below-knee amputation of left lower extremity History of eye surgery History of temporal artery biopsy History of lymph node biopsy History of liver biopsy Partial nontraumatic amputation of right foot History of amputation of hallux History of carpal tunnel surgery History of hernia repair History of cholecystectomy History of hysterectomy History of tubal ligation Status post transmetatarsal amputation of right foot Social History Smoking Status: Never smoker second hand exposure: Yes alcohol intake: current details: rare substance use type: does not use ROS Constitutional Constitutional: Reports chills, fever(s) and weakness Eyes Eyes: Denies loss of vision ENT HEENT: Denies nasal congestion Cardiovascular Cardiovascular: Denies syncope Respiratory/Chest Respiratory/Chest: Denies dry cough Gastrointestinal Gastrointestinal: Reports nausea; Denies abdominal pain, anorexia or diarrhea Genitourinary Genitourinary: Reports oliguria Integumentary Integumentary: Reports erythema, rash and other Details: low back incision site Neurologic Neurologic: Reports weakness; Denies numbness Endocrine Endocrinology: Reports fatigue Hematologic/Lymphatic Hematologic/Lymphatic: Reports anemia, easy bleeding and easy bruising Physical Exam Const alert, oriented x3 and no apparent distress General Appearance: well developed HEENT normocephalic Resp clear to auscultation bilaterally Cardio regular rate GI non-tender and non-distended Auscultation: normoactive bowel sounds Palpation: soft Back/Spine Back/Spine Narrative: low back pain incision site with erythema, boggy, tender to palpation Extremity full ROM Skin Wounds: wounds noted Wound Narrative: see able Neuro CN's II-XII intact bilaterally Sensorium / Orientation: awake and alert Psych cooperative Lab / Micro Data 10/23/23 16:33 10/25/23 06:50 Labs: Laboratory Results - last 24 hr 10/23/23 16:33: WBC 9.7, RBC 2.60 L, Hgb 8.5 L, Hct 26.3 L, MCV 101.2 H, MCH 32.7 H, MCHC 32.3, RDW Std Deviation 54.9 H, RDW Coeff of Michael 15.1 H, Plt Count 183, MPV 10.5, Immature Gran % (Auto) 0.800, Neut % (Auto) 84.6 H, Lymph % (Auto) 8.7 L, [place] % (Auto) 4.9, Eos % (Auto) 0.9, Baso % (Auto) 0.1, Absolute Neuts (auto) 8.2 H, Absolute Lymphs (auto) 0.84, Nucleated RBC % 0, ESR 36 H, PT 16.6 H, INR 1.3, APTT 33.8, Sodium 131 L, Potassium 5.9 H, Chloride 93 L, Carbon Dioxide 26.0, BUN 66 H, Creatinine 8.33 H*, Estim Creat Clear Calc 9.30, Est GFR (MDRD) Af Amer 7 L, Est GFR (MDRD) Non-Af 5 L, BUN/Creatinine Ratio 7.9 L, G lucose 147 H, Calcium 9.4, Phosphorus 8.8 H, C-React Prot Ext Range 38.60 H, A lbumin 3.1 L 10/24/23 06:45: POC Glucose 98 Rhythm Strip Rhythm Strip: Sinus Rhythm Rate: 74 Ectopy: None
[2023-10-24] MEDS: Epoetin Alfa epbx 10,000 UNIT/ML 20000 UNIT IV (10:13)
[2023-10-24] MEDS: hydrOXYzine PAM 25 MG Capsule 50 MG PO (10:36)
[2023-10-24] MEDS: Budesonide 3 MG CAPSULE.EC 9 MG PO (11:29)
[2023-10-24] MEDS: DULoxetine Hcl 30 MG Capsule PO (11:30)
[2023-10-24] MEDS: Fludrocortisone Acetate 0.1 MG Tablet PO (11:30)
[2023-10-24] MEDS: Pantoprazole Sodium 40 MG Tablet PO (11:30)
[2023-10-24] MEDS: Magnesium Chloride 64 MG Delay Rel.Tablet 128 MG PO (11:30)
[2023-10-24] MEDS: Ursodiol 250 MG Tablet PO ×2 (11:30→21:33)
[2023-10-24] MEDS: Cinacalcet HCl 30 MG Tablet PO (11:30)
[2023-10-24] MEDS: Calcitriol 0.25 MCG Capsule 0.5 MCG PO ×2 (11:31→21:32)
[2023-10-24] MEDS: Propranolol LA 60 MG Capsule PO (11:32)
[2023-10-24] MEDS: Piperacil/Tazobactam 3.375 GM in 0.9% Normal Saline (50mL MB+) 50 ML IV ×2 (11:39→23:42)
[2023-10-24] MEDS: BRIMONIDINE 0.2% 5ML BOTTLE 1 DRP OPHTHALMIC (11:39)
[2023-10-24 12:16] LABS: Bedside Glucose 124 mg/dL (74-106)
[2023-10-24] MEDS: Calcium Acetate 667 MG Capsule 2668 MG PO ×2 (13:08→16:52)
--- NOTE | 2023-10-24 16:45 | CASEMGMT ---
RN?CM?CARPET INSTALLER?CM?to room to meet with patient for initial transition planning/care coordination?assessment.?RN?CM?introduced self and role at [facility].? Pt voices understanding and consents to?assessment?at this time.? Pt resting in bed in no distress at this time.? Pt is A/O at this time and answers all questions appropriately.?? Family @ bedside and pt agreeable w/them being present during assessment. Care providers, pharmacy, and demographics verified/updated at this time. PCP: Dr Jimenez Specialists: Dr Gandhi, Nephro; Dr Cox, GI; Dr Fry, urban planner; Dr Mcmahon, evaluation specialist; Dr Ackerman, hair specialist; Dr Hernandez, cardiology; Dr Krause, pain mgnt; Dr Lindsay, podiatry HD: Pt does her own OP HD @ her home 5 days/week. Preferred Pharmacy: [facility] Retail Insurance: [employer] [facility] Prescription Benefit: yes Living Will/HPOA: yes, Alek Lux. 3 children LNOK: , daughter Living Arrangements: Patient lives with and dtrNatalie, in a 2 story home with bed and bath on first floor, ramp to enter the home. Patient states she is independent at home. DME: Patient has shower chair, raised toilet, grab bars, walker, cpap, nebulizer, pulse ox, prosthetic for LLE, hospital bed, glucometer, and home oxygen at HS and PRN through [facility] with portability. She states she wears it @ 2l/m. Her family can bring in portable tank @ dc, if needed. Pt has an insulin pump and Lambert CGM that she gets from [facility]. She states would like to get Lambert from another pharmacy if able. Preference is [facility] retail pharmacy, if they carry them. CM to f/u on this on Thursday, as they are closed today. Pt aware. RN CM did place call to [facility] and they do carry Lambert CGM's. Pt made aware of same, as this may be an option for pt if [facility] retail pharmacy is not able to provide this. HHC/SNF: Patient has been to [facility] in the past and has had [facility] HHC in the past. Pt wishes to return home and states has no concerns with going home at time of discharge, if IV atb's are not needed @ dc. ? CM?to follow for any further discharge planning/needs.? Advised pt to ask for?CM?if any further questions/concerns/needs arise.? Voices understanding. Therapy evals ordered--noted their documentation states pt is independent in room and denies need for therapy. Plan: Home. Follow for possible need of IV atb's @ dc. William BETTS RN CM
[2023-10-24] MEDS: Insulin Lispro 100 UNIT/ML INSULN.PEN SC (16:50)
[2023-10-24 17:24] LABS: Bedside Glucose 177 mg/dL (74-106)
[2023-10-24] MEDS: Cefepime HCl 1 GM in 0.9% Normal Saline (50mL MB+) 50 ML IV (21:28)
[2023-10-24] MEDS: DULoxetine Hcl 60 MG Capsule PO (21:32)
[2023-10-24] MEDS: traZODone 100 MG Tablet 150 MG PO (21:32)
[2023-10-24] MEDS: ROSUVASTATIN CALCIUM 40 MG TABLET PO (21:33)
[2023-10-24 22:42] LABS: Bedside Glucose 115 mg/dL (74-106)
[2023-10-25] MEDS: Gabapentin 800 MG Tablet PO ×3 (05:14→21:10)
[2023-10-25 05:15] VITALS: BP 97/82; PULSE 70; RESP 16; TEMP 36.7; O2SAT 92
[2023-10-25 06:56] VITALS: BMI 33.7
[2023-10-25] MEDS: Acetaminophen 325 MG Tablet 650 MG PO ×2 (06:58→17:54)
[2023-10-25] MEDS: oxyCODONE 5 MG Tablet PO ×2 (06:58→17:54)
[2023-10-25] MEDS: Ondansetron 4 MG/2 ML Vial IV (06:59)
[2023-10-25 07:30] LABS: Bedside Glucose 121 mg/dL (74-106)
--- NOTE | 2023-10-25 07:37 | PCM.PN.HOSP ---
Reason for Visit Reason for Visit: Diagnoses Infection following a procedure, other surgical site, initial encounter (10/23/23) Subjective Subjective Patient wound cultures obtained from the ED so far positive for Pseudomonas patient remains on Zosyn. Objective Data Objective Data Vital Signs: Vital Signs Temp Pulse Resp BP Pulse Ox O2 Del Method O2 Flow Rate 98.1 F 70 16 97/82 H 92 Room Air 2 10/25/23 05:15 10/25/23 05:15 10/25/23 05:15 10/25/23 05:15 10/25/23 05:15 10/25/23 05:15 10/24/23 15:00 Oxygen Flow Rate (L/min) 2 Oxygen Delivery Method Room Air Weight: 91.7 kg Body Mass Index (BMI) 32.6 Intake & Output: Intake and Output for Last 24 Hours 10/23/23 10/24/23 10/25/23 23:59 23:59 23:59 Intake Total 100 / 400 1000 / 1200 350 / 350 Output Total 9000 / 9000 Balance 100 / 400 -8000 / -7800 350 / 350 Lab / Micro Data 10/23/23 16:33 10/25/23 06:50 Labs: Laboratory Results - last 24 hr 10/24/23 11:54: POC Glucose 124 H 10/24/23 16:34: POC Glucose 177 H 10/24/23 21:37: POC Glucose 115 H 10/25/23 06:51: POC Glucose 121 H Rhythm Strip Rhythm Strip: Sinus Rhythm Rate: 74 Ectopy: None Physical Exam Narrative GENERAL: cooperative HEENT: Atraumatic; normocephalic EYES; Anicteric, Normal Conjunctiva NECK; supple, normal thyroid, RESPIRATORY: Diminished to auscultation CARDIOVASCULAR: Regular S1 S2, GI: soft, normoactive bowel sounds, : No Renal angle tenderness; EXTREMITIES: Left BKA MUSCULOSKELETAL: No muscle wasting NEURO: Awake; no lateralizing signs. SKIN: An area of erythema with warmth at the incision site in the lower lumbar region PSYCH; Flat affect Assessment & Plan Assessment/Plan (1) Surgical site infection: PLAN: Plan Patient is a 53-year-old lady admitted with surgical site infection at the site of spinal stimulator insertion.Patient procedure was performed by Dr. Krause 3 weeks prior to her admission 1. Surgical site infection at the sites of spinal stimulator insertion ? Wound cultures as outpatient grew Pseudomonas patient started on Zosyn blood cultures ordered consult placed to pain management as well as infectious disease ? 10/25/2023; wound cultures from the emergency department came back positive for Pseudomonas patient is on Zosyn. Consult was placed to Dr. Krause who performed patient's original procedure as well as ID. 2. End-stage renal disease ? On hemodialysis on Wednesdays and Fridays, nephrology consulted for dialysis orders 3. Hyperkalemia ? Secondary to patient ESRD plan is managed with dialysis and Kayexalate 4. Diabetes mellitus type 1 ? Patient is on insulin pump patient to manage 5. Lupus ? Stable patient is followed by rheumatology as outpatient 6. Dyslipidemia ?Patient is on statin therapy, continued at home dose 7. Anemia ? Secondary to chronic disorder/ESRD monitoring H&H and transfuse if patient becomes symptomatic or hemoglobin falls below 7 8. History of Crohn's disease - On Skyrarlette. Follow-up with gastroenterology on outpatient basis. On cholestyramine for diarrhea. #9. Hypertension ? Blood pressure controlled, home medications continued with dose adjustment as needed 10. Nonalcoholic fatty liver disease ? Followed by GI as outpatient 11. DVT prophylaxis ? SC heparin Time spent in the patient's overall evaluation,decision-making process, review of diagnostic data, adjustment of management, discussion with other providers, nursing nursing and ancillary staff involved in patient's care documentation, 36 minutes Charges/Coding Visit Charges Inpatient E&M: 88888 Subs Hosp L2
[2023-10-25 08:01] LABS: Anion Gap 14 (5-15); BUN 55 mg/dL (7-18); BUN/Creat Ratio 7.5 RATIO (10-20); Calcium,Total 9.7 mg/dL (8.5-10.1); Chloride 101 mmol/L (98-107); Creatinine, Serum 7.32 mg/dL (0.55-1.02); EST Glomerular Filtration Rate 6 mL/min (>60); Est Glom Filt Rate - Afr Amer 8 mL/min (>60); Estimated Creatinine Clearance 10.26 ml/min; Glucose 124 mg/dL (74-106); Potassium 5.2 mmol/L (3.5-5.1); Sodium Level 137 mmol/L (136-145)
[2023-10-25 08:37] VITALS: BP 98/58; PULSE 74; RESP 18; TEMP 36.1; O2SAT 98
[2023-10-25] MEDS: Calcitriol 0.25 MCG Capsule 0.5 MCG PO ×2 (08:50→21:31)
[2023-10-25] MEDS: Cinacalcet HCl 30 MG Tablet PO (08:50)
[2023-10-25] MEDS: Pantoprazole Sodium 40 MG Tablet PO (08:51)
[2023-10-25] MEDS: Propranolol LA 60 MG Capsule PO (08:51)
[2023-10-25] MEDS: Budesonide 3 MG CAPSULE.EC 9 MG PO (08:53)
[2023-10-25] MEDS: DULoxetine Hcl 30 MG Capsule PO (08:53)
[2023-10-25] MEDS: Midodrine HCl 5 MG Tablet 20 MG PO ×3 (08:53→16:14)
[2023-10-25] MEDS: Ursodiol 250 MG Tablet PO ×2 (08:53→21:32)
[2023-10-25] MEDS: Fludrocortisone Acetate 0.1 MG Tablet PO (08:54)
[2023-10-25] MEDS: Magnesium Chloride 64 MG Delay Rel.Tablet 128 MG PO (08:54)
[2023-10-25] MEDS: BRIMONIDINE 0.2% 5ML BOTTLE 1 DRP OPHTHALMIC (08:54)
[2023-10-25] MEDS: Calcium Acetate 667 MG Capsule 2668 MG PO ×3 (08:54→16:14)
[2023-10-25] MEDS: Piperacil/Tazobactam 3.375 GM in 0.9% Normal Saline (50mL MB+) 50 ML IV ×2 (10:41→21:49)
[2023-10-25] MEDS: Morphine 2 MG/ML Syringe 1 MG IV ×2 (10:51→21:09)
[2023-10-25] MEDS: Insulin Lispro 100 UNIT/ML INSULN.PEN SC ×3 (11:47→21:18)
[2023-10-25 12:18] LABS: Bedside Glucose 170 mg/dL (74-106)
[2023-10-25 14:23] VITALS: BP 100/58; PULSE 68; RESP 18; TEMP 36.1; O2SAT 94
[2023-10-25 16:53] LABS: Bedside Glucose 164 mg/dL (74-106)
[2023-10-25] MEDS: Ondansetron ODT 4 MG Tablet 8 MG PO (17:59)
[2023-10-25 20:00] VITALS: BP 140/64; PULSE 66; RESP 18; TEMP 37; O2SAT 94
[2023-10-25] MEDS: 0.9% Saline Lock 10 ML Syringe IV (20:52)
[2023-10-25] MEDS: Cefepime HCl 1 GM in 0.9% Normal Saline (50mL MB+) 50 ML IV (21:05)
[2023-10-25] MEDS: ROSUVASTATIN CALCIUM 40 MG TABLET PO (21:28)
[2023-10-25] MEDS: DULoxetine Hcl 60 MG Capsule PO (21:30)
[2023-10-25] MEDS: traZODone 100 MG Tablet 150 MG PO (21:31)
[2023-10-25 21:46] VITALS: BP 140/64; PULSE 66; RESP 18; TEMP 37; O2SAT 94
[2023-10-25] MEDS: 0.9% Normal Saline (250mL Bag) 250 ML 15 ML IV (21:50)
[2023-10-25 23:40] LABS: Bedside Glucose 186 mg/dL (74-106)
[2023-10-26] VITALS (17 sets, daily range): BP systolic 91–323; BP diastolic 53–65; PULSE 60–92; RESP 16–20; TEMP 36.5–37.4; O2SAT 92–99; BMI 33.1; BMI 33.5; BMI 32.8
[2023-10-26 06:34] LABS: Absolute Lymphocyte Count 1.55 X10^3/uL (0.83-4.51); Absolute Neutrophil Count 6.5 X10^3/uL (2.0-7.7); Basophil# 0.01 X10^3/uL; Basophil% 0.1 % (0-1); Eosinophil# 0.13 X10^3/uL; Eosinophils% 1.4 % (0-5); Hematocrit 28.1 % (37-47); Hemoglobin 8.9 g/dL (12.0-15.0); Lymphocyte # 1.55 X10^3/ul (0.83-4.51); Lymphocyte % 17.2 % (19-41); Mean Corp Hgb Conc 31.7 g/dL (32-36); Mean Corpuscular Hgb 33.1 pg (27.0-32.0); Mean Corpuscular Volume 104.5 fL (81-99); Mean Platelet Vol. 9.8 fl (6.2-12.0); Monocyte# 0.69 X10^3/uL; Monocyte% 7.7 % (0-10); NRBC Flagged by Analyzer 0 % (0-5); Neutrophil # 6.46 X10^3/uL (2.7-7.7); Neutrophil % 71.9 % (47-70); Platelet Count 218 K/mm3 (150-450); RBC Distribution Width CV 15.3 % (11.6-14.6); RBC Distribution Width SD 57.1 fl (35.1-43.9); Red Blood Count 2.69 M/mm3 (4.2-5.4)
[2023-10-26] MEDS: 0.9% Saline Lock 10 ML Syringe IV ×2 (06:47→14:16)
[2023-10-26] MEDS: Gabapentin 800 MG Tablet PO ×3 (06:47→20:22)
[2023-10-26 07:13] LABS: Bedside Glucose 127 mg/dL (74-106)
[2023-10-26 07:42] LABS: Bedside Glucose 139 mg/dL (74-106)
[2023-10-26 07:42] LABS: Bedside Glucose 158 mg/dL (74-106); Bedside Glucose 163 mg/dL (74-106)
[2023-10-26 07:42] LABS: Bedside Glucose 139 mg/dL (74-106)
[2023-10-26 07:52] LABS: Anion Gap 15 (5-15); BUN 69 mg/dL (7-18); BUN/Creat Ratio 7.8 RATIO (10-20); Calcium,Total 10.7 mg/dL (8.5-10.1); Chloride 98 mmol/L (98-107); Creatinine, Serum 8.87 mg/dL (0.55-1.02); EST Glomerular Filtration Rate 5 mL/min (>60); Est Glom Filt Rate - Afr Amer 6 mL/min (>60); Estimated Creatinine Clearance 8.62 ml/min; Glucose 151 mg/dL (74-106); Magnesium 2.4 mg/dL (1.6-2.6); Sodium Level 136 mmol/L (136-145)
[2023-10-26] MEDS: Midodrine HCl 5 MG Tablet 20 MG PO ×3 (08:24→17:01)
[2023-10-26] MEDS: 0.9% Normal Saline 1,000 ML IV.SOLN. 1000 ML OPERA.SITE (08:27)
[2023-10-26] MEDS: Epoetin Alfa epbx 10,000 UNIT/ML 20000 UNIT IV (08:39)
[2023-10-26] MEDS: BRIMONIDINE 0.2% 5ML BOTTLE 1 DRP OPHTHALMIC (11:05)
[2023-10-26] MEDS: Calcium Acetate 667 MG Capsule 2668 MG PO ×2 (12:07→17:01)
[2023-10-26] MEDS: Budesonide 3 MG CAPSULE.EC 9 MG PO (12:07)
[2023-10-26] MEDS: Calcitriol 0.25 MCG Capsule 0.5 MCG PO ×2 (12:08→20:15)
[2023-10-26] MEDS: Ursodiol 250 MG Tablet PO ×2 (12:08→20:15)
[2023-10-26] MEDS: Magnesium Chloride 64 MG Delay Rel.Tablet 128 MG PO (12:09)
[2023-10-26] MEDS: Pantoprazole Sodium 40 MG Tablet PO (12:09)
[2023-10-26] MEDS: Propranolol LA 60 MG Capsule PO (12:11)
[2023-10-26] MEDS: Cinacalcet HCl 30 MG Tablet PO (12:11)
[2023-10-26] MEDS: Fludrocortisone Acetate 0.1 MG Tablet PO (12:11)
[2023-10-26] MEDS: oxyCODONE 5 MG Tablet PO ×2 (12:12→19:44)
[2023-10-26] MEDS: Acetaminophen 325 MG Tablet 650 MG PO ×2 (12:13→19:43)
[2023-10-26] MEDS: Insulin Lispro 100 UNIT/ML INSULN.PEN SC ×3 (12:13→20:14)
--- NOTE | 2023-10-26 12:14 | CASEMGMT ---
TC to [facility] Retail, they do not have freestyle miguel CGM.
[2023-10-26] MEDS: PureFlow B 2K Dialysis Soln 1 BAG 6 BAG PF (12:22)
[2023-10-26 12:35] LABS: Bedside Glucose 208 mg/dL (74-106)
[2023-10-26] MEDS: DULoxetine Hcl 30 MG Capsule PO (14:15)
--- NOTE | 2023-10-26 14:47 | PCM.CONS.GEN ---
Assessment & Plan Assessment/Plan (1) Infection of spinal cord stimulator: PLAN: Wound cx with PsA. Will stop zosyn, no need for double coverage. Cont cefepime. With pain and inflammation over the site, recommend device removal. Dr. Krause has been consulted. Will follow, thank you, d/w primary team (2) ESRD (end stage renal disease) on dialysis: HPI Consult Data Date of Consult: 10/26/23 HPI Narrative Reason for Consultation: infected device HPI Narrative: FORD HESTER, is a 53 F with ESRD, home HD [facility] via LUE fistula, had spine stimulator placed about a month ago. Over several days, developed new pain, redness, swelling, and drainage from lumbar site. Some fever, nausea, and severe pain. Wound cx sent, saw Dr. Krause, admitted on cefepime and zosyn. Feeling slightly better, but still pain in back, also c/o some headache and neck pain. Full ROS performed and neg except as noted above. [facility] Medical History Iron (Fe) deficiency anemia Crohn's disease Depression Asthma Atrial fibrillation Migraines Stroke/cerebrovascular accident ESRD (end stage renal disease) on dialysis Lung nodule seen on imaging study Blindness Cataract (lens) fragments in eye following cataract surgery, bilateral Acute bronchitis, unspecified Atrial fibrillation, controlled Essential hypertension Uses prosthesis Seasonal allergies Wears glasses Anxiety Insulin dependent diabetes mellitus Uses wheelchair Arthritis DVT (deep venous thrombosis) History of Holter monitoring High cholesterol TIA (transient ischemic attack) Seizures Dietary restriction History of hiatal hernia Non-smoker CPAP (continuous positive airway pressure) dependence Sleep apnea Shortness of breath on exertion Hypertension History of echocardiogram History of stress test Cardiology follow-up encounter Positive QuantiFERON-TB Gold test Hx of pancreatitis Hepatosplenomegaly Enteritis Nausea and vomiting Alternating constipation and diarrhea Diarrhea HINTON (nonalcoholic steatohepatitis) CKD (chronic kidney disease) Viral gastroenteritis Acute right flank pain Anemia in chronic kidney disease (CKD) COVID-19 virus detected Pneumonia due to COVID-19 virus Below-knee amputation of left lower extremity Osteomyelitis of left foot History of stroke COPD (chronic obstructive pulmonary disease) IBS (irritable bowel syndrome) GERD (gastroesophageal reflux disease) Diastolic dysfunction Cellulitis of left foot Acute kidney injury Right middle lobe pneumonia Hypomagnesemia Osteomyelitis of right foot Peripheral neuropathy Depression Infection of right great toe due to methicillin resistant Staphylococcus aureus (MRSA) Cellulitis of right foot History of MRSA infection Diabetes mellitus Asthma Pulmonary hypertension SLE (systemic lupus erythematosus) Home Medications ?Medication ?Instructions ?Recorded ?Last Taken ?Type duloxetine 60 mg capsule,delayed 60 mg PO QHS depression 11/26/12 10/22/23 History release insulin regular hum U-500 conc 500 2.2 units subcut CONT insulin pump 10/02/15 10/23/23 History unit/mL subcutaneous soln trazodone 100 mg tablet 150 mg PO QHS sleep 12/27/15 10/22/23 History ergocalciferol (vitamin D2) 1,250 50,000 unit PO QWEEK supplement 01/24/16 10/16/23 History mcg (50,000 unit) capsule albuterol sulfate 2.5 mg/3 mL 2.5 mg inhalation Q4H PRN PRN 06/09/16 09/01/16 History (0.083 %) solution for nebulization Wheezing gabapentin 800 mg tablet 800 mg PO TID neuropathy 05/19/17 10/22/23 History rosuvastatin 10 mg tablet 40 mg PO QHS cholesterol 06/03/17 10/22/23 History insulin aspart U-100 100 unit/mL See Protocol subcut ACHS diabetes 07/30/18 10/22/23 History (3 mL) subcutaneous pen magnesium oxide 400 mg (241.3 mg 400 mg PO DAILYCM supplement 07/30/18 10/22/23 History magnesium) tablet hydroxyzine pamoate 50 mg capsule 50 mg PO TID PRN Anxiety 02/20/20 10/22/23 History duloxetine 30 mg capsule,delayed 30 mg PO DAILY depression 05/09/20 10/22/23 History release ondansetron 4 mg disintegrating 8 mg PO Q8H PRN PRN Nausea 09/03/21 Unknown History tablet diphenoxylate-atropine 2.5 1 tab PO BID PRN diarrhea #180 tabs 08/04/22 10/22/23 Rx mg-0.025 mg tablet (Lomotil) hyoscyamine sulfate 0.125 mg tablet 0.125 mg PO BID-QID PRN abdominal 08/04/22 Unknown Rx pain #360 tabs apixaban 5 mg tablet (Eliquis) 5 mg PO BID blood thinner #60 tabs 10/14/22 10/21/23 Rx albuterol sulfate 90 mcg/actuation 2 puff inhalation Q4-6H PRN 02/26/23 Unknown History aerosol inhaler (ProAir HFA) shortness of breath or wheezing brimonidine 0.2 % eye drops 1 drp ophthalmic (eye) DAILY . 02/26/23 10/22/23 History calcitriol 0.5 mcg capsule 0.5 mcg PO BID . 03/26/23 10/22/23 History calcium acetate(phosphat bind) 667 2,668 mg PO TID binder 03/26/23 10/22/23 History mg capsule iron sucrose 100 mg iron/5 mL 100 mg .Route .weekly . 03/26/23 Unknown History intravenous solution (Venofer) epoetin regan-epbx 2,000 unit/mL 2,000 unit subcut QWEEK . 05/14/23 10/19/23 History injection solution (Retacrit) fludrocortisone 0.1 mg tablet 0.1 mg PO DAILY . #30 tabs 06/03/23 10/22/23 Rx fenofibrate nanocrystallized 48 mg 48 mg PO DAILY . 08/11/23 10/22/23 History tablet ursodiol 300 mg capsule 300 mg PO BID LIVER #180 caps 08/17/23 10/22/23 Rx risankizumab-rzaa 360 mg/2.4 mL 360 mg (2.4 mL) subcut .COMPLEX . 08/21/23 08/28/23 Rx (150 mg/mL) subcut wearable #2.4 mL injector (Radha) budesonide 3 mg 9 mg (3 x 3 mg) PO DAILY . #90 ea 08/24/23 10/22/23 Rx capsule,delayed,extended release cinacalcet 30 mg tablet 30 mg PO DAILY . 10/23/23 10/22/23 History midodrine 10 mg tablet 20 mg PO 4XD PRN . 10/23/23 10/22/23 History mupirocin 2 % topical ointment 1 applic topical DAILY . 10/23/23 10/22/23 History omeprazole 40 mg capsule,delayed 40 mg PO DAILY GERD 10/23/23 10/22/23 History release propranolol 60 mg capsule,24 60 mg PO DAILY . 10/23/23 10/22/23 History hr,extended release Allergy/AdvReac Type Severity Reaction Status Date / Time atorvastatin (From Lipitor) AdvReac Severe Vomiting Verified 10/23/23 13:34 oxycodone HCl (From Percocet) AdvReac Severe Vomiting Verified 10/23/23 13:34 Family History Mother Hypertension Cancer skin Grandmother Hypertension Diabetes Brother Cancer NHL Arthritis Brother Arthritis Surgical History (Updated 10/24/23 @ 11:[address] Emily Gandhi DO) Status post insertion of spinal cord stimulator S/P arteriovenous (AV) fistula repair S/P arteriovenous (AV) fistula creation History of lithotripsy History of below-knee amputation of left lower extremity History of eye surgery History of temporal artery biopsy History of lymph node biopsy History of liver biopsy Partial nontraumatic amputation of right foot History of amputation of hallux History of carpal tunnel surgery History of hernia repair History of cholecystectomy History of hysterectomy History of tubal ligation Status post transmetatarsal amputation of right foot Social History Smoking Status: Never smoker second hand exposure: Yes alcohol intake: current details: rare substance use type: does not use Physical Exam Const alert, oriented x3 and no apparent distress General Appearance: cooperative HEENT normocephalic and head/scalp atraumatic Eyes Eyes Narrative: Blind in R eye Neck supple and No nodes Resp normal air movement and clear to auscultation bilaterally Cardio regular rate and regular rhythm GI soft to palpation, non-tender and non-distended Extremity General Extremity: Negative for edema Skin Skin Narrative: Midline lumber wound over spine surg site with redness, tenderness, some drainage. R hip battery site non tender. Neuro CN's II-XII intact bilaterally Lab / Micro Data Attestation: I reviewed the patient's lab results. 10/26/23 06:15 10/26/23 06:15 Labs: Laboratory Results - last 24 hr 10/23/23 21:42: POC Glucose 139 H 10/23/23 21:43: POC Glucose 139 H 10/24/23 03:08: POC Glucose 158 H 10/24/23 03:08: POC Glucose 163 H 10/25/23 16:11: POC Glucose 164 H 10/25/23 21:03: POC Glucose 186 H 10/26/23 06:15: WBC 9.0, RBC 2.69 L, Hgb 8.9 L, Hct 28.1 L, MCV 104.5 H, MCH 33.1 H, MCHC 31.7 L, RDW Std Deviation 57.1 H, RDW Coeff of Michael 15.3 H, Plt Count 218, MPV 9.8, Immature Gran % (Auto) 1.700 H, Neut % (Auto) 71.9 H, Lymph % (Auto) 17.2 L, [place] % (Auto) 7.7, Eos % (Auto) 1.4, Baso % (Auto) 0.1, Absolute Neuts (auto) 6.5, Absolute Lymphs (auto) 1.55, Nucleated RBC % 0, Sodium 136, Potassium 5.0, Chloride 98, Carbon Dioxide 23.0, Anion Gap 15, BUN 69 H, Creatinine 8.87 H*, Estim Creat Clear Calc 8.62, Est GFR (MDRD) Af Amer 6 L, Est GFR (MDRD) Non-Af 5 L, BUN/Creatinine Ratio 7.8 L, Glucose 151 H, Calcium 10.7 H, Phosphorus 8.0 H, Magnesium 2.4 10/26/23 06:46: POC Glucose 127 H 10/26/23 12:04: POC Glucose 208 H Micro: Microbiology 10/23/23 17:05 Blood Culture (Wb) - Right Forearm Blood Culture - Preliminary No growth in 48 hours. Rhythm Strip Rhythm Strip: Sinus Rhythm Rate: 74 Ectopy: None
--- NOTE | 2023-10-26 14:50 | WOUNDNOTE ---
wound photo: right foot
--- NOTE | 2023-10-26 14:51 | WOUNDNOTE ---
wound photo: right dorsal foot
--- NOTE | 2023-10-26 14:51 | WOUNDNOTE ---
wound photo: mid lower back
--- NOTE | 2023-10-26 16:48 | PCM.PN.HOSP ---
Reason for Visit Reason for Visit: Diagnoses End stage renal disease (10/23/23) Infection following a procedure, other surgical site, initial encounter (10/23/23) Infection and inflammatory reaction due to implanted electronic neurostimulator of spinal cord, electrode (lead), initial encounter (10/23/23) Dependence on renal dialysis (10/23/23) Subjective Subjective Patient was seen and examined today, I communicated by text with Dr. Sosa infectious diseases, he recommended that pain management consider taking the patient's spinal stimulator out, I forwarded the contact information to Dr. Krause for Dr. Sosa and they had a discussion concerning the spinal cord stimulator, it was agreed that the leads would be removed from the stimulator and the patient would continue treatment with antibiotics. Patient underwent dialysis today. Objective Data Objective Data Vital Signs: Vital Signs Temp Pulse Resp BP Pulse Ox O2 Del Method O2 Flow Rate 98.6 F 66 16 120/62 99 Room Air 2 10/26/23 16:33 10/26/23 16:33 10/26/23 16:33 10/26/23 16:33 10/26/23 16:33 10/26/23 16:33 10/26/23 05:02 Oxygen Flow Rate (L/min) 2 Oxygen Delivery Method Room Air Weight: 92.3 kg Body Mass Index (BMI) 32.8 Intake & Output: Intake and Output for Last 24 Hours 10/24/23 10/25/23 10/26/23 23:59 23:59 23:59 Intake Total 1000 / 1200 810 / 1010 593.25 / 593.25 Output Total 9000 / 9000 6000 / 6000 6190 / 6190 Balance -8000 / -7800 -5190 / -4990 -5596.75 / -5596.75 Lab / Micro Data 10/26/23 06:15 10/26/23 06:15 Labs: Laboratory Results - last 24 hr 10/23/23 21:42: POC Glucose 139 H 10/23/23 21:43: POC Glucose 139 H 10/24/23 03:08: POC Glucose 158 H 10/24/23 03:08: POC Glucose 163 H 10/25/23 16:11: POC Glucose 164 H 10/25/23 21:03: POC Glucose 186 H 10/26/23 06:15: WBC 9.0, RBC 2.69 L, Hgb 8.9 L, Hct 28.1 L, MCV 104.5 H, MCH 33.1 H, MCHC 31.7 L, RDW Std Deviation 57.1 H, RDW Coeff of Michael 15.3 H, Plt Count 218, MPV 9.8, Immature Gran % (Auto) 1.700 H, Neut % (Auto) 71.9 H, Lymph % (Auto) 17.2 L, [place] % (Auto) 7.7, Eos % (Auto) 1.4, Baso % (Auto) 0.1, Absolute Neuts (auto) 6.5, Absolute Lymphs (auto) 1.55, Nucleated RBC % 0, Sodium 136, Potassium 5.0, Chloride 98, Carbon Dioxide 23.0, Anion Gap 15, BUN 69 H, Creatinine 8.87 H*, Estim Creat Clear Calc 8.62, Est GFR (MDRD) Af Amer 6 L, Est GFR (MDRD) Non-Af 5 L, BUN/Creatinine Ratio 7.8 L, Glucose 151 H, Calcium 10.7 H, Phosphorus 8.0 H, Magnesium 2.4 10/26/23 06:46: POC Glucose 127 H 10/26/23 12:04: POC Glucose 208 H Micro: Microbiology 10/23/23 17:05 Blood Culture (Wb) - Right Forearm Blood Culture - Preliminary No growth in 48 hours. Rhythm Strip Rhythm Strip: Sinus Rhythm Rate: 74 Ectopy: None Physical Exam Const alert, oriented x3, no apparent distress and healthy appearing General Appearance: cooperative, well kempt and well developed Orientation / Consciousness: awake, oriented to person, oriented to place and oriented to time HEENT normocephalic and moist oral mucous membranes Eyes PERRL, EOMs intact bilaterally and conjunctivae normal Neck supple, no JVD, thyroid normal and no carotid bruits General: trachea midline Resp normal respiratory effort, no retractions, no use of accessory muscles and clear to auscultation bilaterally Auscultation: Negative for rales, rhonchi or wheezes Cardio regular rate, regular rhythm, S1 normal heart sound, S2 normal heart sound, no murmurs, no rub and no gallops GI normal to inspection, nondistended, normoactive bowel sounds, soft to palpation, non-tender and non-distended Extremity Extremity Narrative: Patient has a left below the knee amputation which is remote Skin Skin Narrative: The area over the insertion site of her spinal stimulator was not examined today. Neuro oriented x3, CN's II-XII intact bilaterally and no focal motor deficits Sensorium / Orientation: awake and alert Speech: speech normal Psych affect normal Assessment & Plan Assessment/Plan (1) Infection of spinal cord stimulator: PLAN: Plan 1. Surgical site infection of previously implanted spinal cord stimulator-organism appears to be Pseudomonas, continue antibiotic coverage per ID, pain management will take out the leads tomorrow #2 end-stage renal disease-nephrology participating in her care, she had dialysis today #3 type 2 diabetes-blood sugars will be monitored, sliding scale insulin will be given as needed #4 paroxysmal [id number] has been off Eliquis for now due to the possibility she may need surgery #5 chronic anemia secondary to end-stage renal disease-patient's hemoglobin today was 8.9, monitor CBC as needed #6 chronic depression-patient is on Cymbalta Total clinical time spent by myself addressing the patient's medical issues, reviewing all of her data, and collaborating with patient's care team: 35 minutes Charges/Coding Visit Charges Inpatient E&M: 99577 Subs Hosp L2
[2023-10-26 17:24] LABS: Bedside Glucose 172 mg/dL (74-106)
[2023-10-26] MEDS: ROSUVASTATIN CALCIUM 40 MG TABLET PO (20:15)
[2023-10-26] MEDS: DULoxetine Hcl 60 MG Capsule PO (20:15)
[2023-10-26] MEDS: traZODone 100 MG Tablet 150 MG PO (20:15)
[2023-10-26] MEDS: Cefepime HCl 1 GM in 0.9% Normal Saline (50mL MB+) 50 ML IV (20:16)
[2023-10-27] VITALS (12 sets, daily range): BP systolic 92–156; BP diastolic 49–75; PULSE 60–75; RESP 14–18; TEMP 36.2–36.9; O2SAT 87–100; BMI 32.7
[2023-10-27 03:23] LABS: Absolute Lymphocyte Count 1.25 X10^3/uL (0.83-4.51); Absolute Neutrophil Count 7.7 X10^3/uL (2.0-7.7); Basophil# 0.02 X10^3/uL; Basophil% 0.2 % (0-1); Eosinophil# 0.16 X10^3/uL; Eosinophils% 1.6 % (0-5); Hematocrit 28.3 % (37-47); Lymphocyte # 1.25 X10^3/ul (0.83-4.51); Lymphocyte % 12.5 % (19-41); Mean Corp Hgb Conc 31.8 g/dL (32-36); Mean Corpuscular Hgb 32.8 pg (27.0-32.0); Mean Corpuscular Volume 103.3 fL (81-99); Mean Platelet Vol. 9.7 fl (6.2-12.0); Monocyte# 0.73 X10^3/uL; Monocyte% 7.3 % (0-10); NRBC Flagged by Analyzer 0.2 % (0-5); Neutrophil # 7.67 X10^3/uL (2.7-7.7); Neutrophil % 76.3 % (47-70); Platelet Count 214 K/mm3 (150-450); RBC Distribution Width CV 15.1 % (11.6-14.6); RBC Distribution Width SD 55.5 fl (35.1-43.9); Red Blood Count 2.74 M/mm3 (4.2-5.4)
[2023-10-27 03:44] LABS: Anion Gap 9 (5-15); BUN 48 mg/dL (7-18); Calcium,Total 11.1 mg/dL (8.5-10.1); Chloride 102 mmol/L (98-107); Creatinine, Serum 6.87 mg/dL (0.55-1.02); EST Glomerular Filtration Rate 7 mL/min (>60); Est Glom Filt Rate - Afr Amer 8 mL/min (>60); Estimated Creatinine Clearance 10.96 ml/min; Glucose 155 mg/dL (74-106); Potassium 4.7 mmol/L (3.5-5.1); Sodium Level 136 mmol/L (136-145)
[2023-10-27 04:30] LABS: Bedside Glucose 167 mg/dL (74-106)
[2023-10-27] MEDS: Lactated Ringers 1,000 ML 15 ML IV (07:01)
--- NOTE | 2023-10-27 07:09 | PCM.PRE.AN2 ---
ASA Classification* ASA Classification ASA Classification: 3 and E Assessment & Plan Anesthesia* Anesthesia Assessment Anesthesia Assessment: Discussed sedation and/or anesthesia options, risks, benefits, and alternatives with patient/parents/legal guardian/POA. Questions invited. The patient/parents/legal guardian/POA seems to understand and agrees to proceed with anesthesia plan. Reviewed the physical assessment, medical history, allergy history and patient home medications list prior to surgery/procedure/anesthetic and documented any changes. Performed airway and anesthesia risk assessments. Anesthesia Type Anesthesia Type: MAC (see written pre anesthesia record for full assessment) Anesthesia Focused Assessment* Temperature: 98.4 F Pulse Rate: 60 Blood Pressure: 124/75 Respiratory Rate: 18 Pulse Ox: 100 Airway Assessment Mouth opens: >3 cm Mallampati Score: II Focused Labs Anesthesia Preop lab: CBC WBC 10.0 K/mm3 (4.4-11.0) 10/27/23 03:10 RBC 2.74 M/mm3 (4.2-5.4) L 10/27/23 03:10 Hgb 9.0 g/dL (12.0-15.0) L 10/27/23 03:10 Hct 28.3 % (37-47) L 10/27/23 03:10 Plt Count 214 K/mm3 (150-450) 10/27/23 03:10 CHEMISTRY Potassium 4.7 mmol/L (3.5-5.1) 10/27/23 03:10 Sodium 136 mmol/L (136-145) 10/27/23 03:10 Magnesium 2.4 mg/dL (1.6-2.6) 10/26/23 06:15 Phosphorus 8.0 mg/dL (2.5-4.9) H 10/26/23 06:15 BUN 48 mg/dL (7-18) H 10/27/23 03:10 Creatinine 6.87 mg/dL (0.55-1.02) H 10/27/23 03:10 Glucose 155 mg/dL (74-106) H 10/27/23 03:10 POC Glucose 167 mg/dL (74-106) H 10/26/23 20:06 TSH 1.58 uIU/mL (0.358-3.74) 02/04/23 15:34 COAG PT 16.6 SECONDS (11.7-14.9) H 10/23/23 16:33 Pre-Assessment Diagnosis/Proposed Procedure Planned Operative Procedure(s): removal of an infected nerve stimulator Anesthesia History 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 When Was Last Pacemaker Check QUESTION #4 FULL TEXT: You/Your Family Experience fever (hyperthermia) with Anesthesia Last Oral Intake Last Oral intake: Last Oral Intake NPO since 00:00 10/27/23 06:36 Meds taken in AM with sips of No 10/27/23 06:36 water? Meds patient instructed to take am of surgery PONV PONV - ambulance operations supervisor: PONV - ambulance operations supervisor Female HX of Motion Sickness HX of N/V After Surgery Non-Smoker Duration of Surgery greater than 60 minutes Number of Risk Factors PONV Score Height & Weight Height & Weight: Anesthesia: Height & Weight Height 5 ft 6.14 in 10/27/23 06:36 Weight: 92.3 kg 10/27/23 06:36 Body Mass Index (BMI) 32.7 10/27/23 06:36 Respiratory Assessment Respiratory Assessment - ambulance operations supervisor: Respiratory Tract Infection Hx - ambulance operations supervisor Hx Respiratory Tract Infection No 10/26/23 19:23 STOP Sleep Apnea STOP Sleep Apnea - ambulance operations supervisor: STOP Sleep Apnea - ambulance operations supervisor Hx Hypertension No 10/24/23 15:42 Hx Sleep Apnea Yes 10/23/23 20:32 CPAP Yes 10/23/23 20:32 BIPAP No 10/23/23 20:32 Do you snore loudly (louder than talking or can be heard Do you often feel tired/ fatigued/ sleepy during daytime? Has anyone observed you stop breathing during sleep? STOP Results Positive 10/23/23 20:32 QUESTION #5 FULL TEXT : Do you snore loudly (louder than talking or can be heard through closed doors)? Tobacco Use History Tobacco Use History - ambulance operations supervisor: Tobacco Use History - ambulance operations supervisor Tobacco Use Smoking Status Never smoker 10/23/23 20:32 Hx Tobacco Use No 10/23/23 20:32 Years Smoking Packs Smoked per Day Smoking Cessation Date was within the last 15 years Hx Smoking Cessation Date Hx Smoking Cessation Counseling Hematologic Medial History Hematologic Hx - ambulance operations supervisor: Hematologic Medical Hx - bi technical lead Hx of Blood Transfusion Yes 10/23/23 20:32 Hx of Transfusion in last 3 No 10/23/23 20:32 Months Date of Last Transfusion (if within last 3 months) Ever experience any problems No 10/23/23 20:32 with transfusion(s)? Specify any problems Hx of Preganancy in last 3 No 10/23/23 20:32 Months Nurse Filling Out Transfusion CSCHLATTE 10/23/23 20:32 & Questions: Date: 10/23/23 10/23/23 20:32 Time: 20:33 10/23/23 20:32 Patient unable to answer at this time (ie. confused, unrespo /Reproduction History /Reproductive History - ambulance operations supervisor: /Reproductive Hx- ambulance operations supervisor Hx Now No 10/26/23 19:23 Gestational Age (in weeks): EDC: Hx Hx Para Hx Section SAB No 10/26/23 19:23 Active Medications Active Medications: Current Medications Generic Name Dose Route Start Last Admin Trade Name Freq PRN Reason Stop Dose Admin Acetaminophen 650 mg 10/23/23 20:26 10/26/23 19:43 Acetaminophen 325 Mg Tablet PO 650 mg Q6H PRN PRN Administration Pain 1-10 Or Fever >100.7 Albuterol Sulfate 2.5 mg 10/23/23 18:52 Albuterol 2.5 Mg/3 Ml Vial.Neb. INHALATION Q4H PRN shortness of breath or wheezing Brimonidine Tartrate 1 drp 10/24/23 10:00 10/26/23 11:05 Brimonidine 0.2% 5ml Bottle OPHTHALMIC 1 drp DAILY JOE Administration Budesonide 9 mg 10/24/23 10:00 10/26/23 12:07 Budesonide 3 Mg Capsule.Ec PO 9 mg DAILY JOE Administration Calcitriol 0.5 mcg 10/23/23 22:00 10/26/23 20:15 Calcitriol 0.25 Mcg Capsule PO 0.5 mcg BID JOE Administration Calcium Acetate 2,668 mg 10/24/23 08:00 10/26/23 17:01 Calcium Acetate 667 Mg Capsule PO 2,668 mg TIDCM JOE Administration Cinacalcet 30 mg 10/24/23 10:00 10/26/23 12:11 Cinacalcet Hcl 30 Mg Tablet PO 30 mg DAILY JOE Administration Diphenoxylate HCl/Atropine 1 tablet 10/23/23 18:44 Diphenoxylate/Atrop 1 Tablet PO BID PRN diarrhea Duloxetine HCl 60 mg 10/23/23 22:00 10/26/23 20:15 Duloxetine Hcl 60 Mg Capsule PO 60 mg QHS JOE Administration Duloxetine HCl 30 mg 10/24/23 10:00 10/26/23 14:15 Duloxetine Hcl 30 Mg Capsule PO 30 mg DAILY JOE Administration Ergocalciferol 1.25 mg 10/23/23 18:45 10/23/23 21:37 Ergocalciferol 1.25 Mg (50, 000 Unit) Capsule PO 1.25 mg QWEEK JOE Administration Fludrocortisone Acetate 0.1 mg 10/24/23 08:00 10/26/23 12:11 Fludrocortisone Acetate 0.1 Mg Tablet PO 0.1 mg DAILYCM JOE Administration Gabapentin 800 mg 10/23/23 22:00 10/26/23 20:22 Gabapentin 800 Mg Tablet PO 800 mg TID JOE Administration Glucagon 1 mg 10/23/23 20:26 Glucagon 1 Mg/Ml Syringe IM X1 PRN HYPOGLYCEMIA Protocol Glucagon 1 mg 10/23/23 22:10 Glucagon 1 Mg/Ml Syringe IM X1 PRN Hypoglycemia Protocol Hydroxyzine Pamoate 50 mg 10/23/23 18:59 10/24/23 10:36 Hydroxyzine Merary 25 Mg Capsule PO 50 mg TID PRN Administration Anxiety Hyoscyamine Sulfate 0.125 mg 10/23/23 19:10 Hyoscyamine Sulfate 0.125 Mg Tablet PO Q6H PRN PRN abdominal pain Dextrose 250 mls @ 0 mls/hr 10/23/23 20:26 Dextrose 10%-Water IV .Q0M PRN HYPOGLYCEMIA Protocol As Directed Cefepime HCl 1 gm/ Sodium 50 mls @ 100 mls/hr 10/23/23 20:26 10/26/23 20:46 Chloride IV Infused QHS JOE Infusion Sodium Chloride 250 mls @ 15 mls/hr 10/23/23 20:31 10/26/23 07:23 IV 0 mls/hr .[id number] PRN Infusion Additional IVPB Infusion Sodium Chloride 250 mls @ 15 mls/hr 10/23/23 20:31 IV .[id number] PRN Saline Flush Dextrose 250 mls @ 0 mls/hr 10/23/23 22:10 Dextrose 10%-Water IV .Q0M PRN HYPOGLYCEMIA Protocol As Directed Lactated Ringer's 1,000 mls @ 15 mls/hr 10/27/23 07:00 10/27/23 07:01 IV 15 mls/hr .Q48H JOE Administration Cefazolin Sodium 2 gm/ Sodium 110 mls @ 150 mls/hr 10/27/23 07:08 Chloride IV 10/27/23 07:51 X1 ONE Insulin Aspart 2.2 unit 10/23/23 18:45 10/26/23 17:03 Insulin Basal Pump SC Not Given UD [facility] Insulin Human Lispro 0 unit 10/23/23 22:00 10/27/23 06:28 Insulin Lispro 100 Unit/Ml Insuln.Pen SC Not Given ACHS [facility] Protocol Magnesium Chloride 128 mg 10/24/23 08:00 10/26/23 12:09 Magnesium Chloride 64 Mg Delay Rel.Tablet PO 128 mg DAILYCM JOE Administration Midodrine 20 mg 10/24/23 00:20 10/26/23 17:01 Midodrine Hcl 5 Mg Tablet PO 20 mg TIDCM JOE Administration Morphine Sulfate 1 mg 10/23/23 20:26 10/25/23 21:09 Morphine 2 Mg/Ml Syringe IV 1 mg Q3H PRN PRN Administration Pain Score 6-10 Ondansetron HCl 8 mg 10/23/23 18:44 10/25/23 17:59 Ondansetron Odt 4 Mg Tablet PO 8 mg Q8H PRN PRN Administration Nausea Ondansetron HCl 4 mg 10/23/23 20:26 10/25/23 06:59 Ondansetron 4 Mg/2 Ml Vial IV 4 mg Q8H PRN PRN Administration NAUSEA/VOMITING Oxycodone HCl 5 mg 10/23/23 20:26 10/26/23 19:44 Oxycodone 5 Mg Tablet PO 5 mg Q6H PRN PRN Administration Pain Score 4-10 Pantoprazole Sodium 40 mg 10/24/23 10:00 10/26/23 12:09 Pantoprazole Sodium 40 Mg Tablet PO 40 mg DAILY JOE Administration Propranolol HCl 60 mg 10/24/23 10:00 10/26/23 12:11 Propranolol La 60 Mg Capsule PO 60 mg DAILY JOE Administration Protocol Rosuvastatin Calcium 40 mg 10/23/23 22:00 10/26/23 20:15 Rosuvastatin Calcium 40 Mg Tablet PO 40 mg QHS JOE Administration Sodium Chloride 10 - 40 ml 10/23/23 20:31 10/26/23 14:16 0.9% Saline Lock 10 Ml Syringe IV 10 ml UD PRN Administration SALINE FLUSH Trazodone HCl 150 mg 10/23/23 22:00 10/26/23 20:15 Trazodone 100 Mg Tablet PO 150 mg QHS JOE Administration Ursodiol 250 mg 10/23/23 22:00 10/26/23 20:15 Ursodiol 250 Mg Tablet PO 250 mg BID JOE Administration PFSH Medical History Iron (Fe) deficiency anemia Crohn's disease Depression Asthma Atrial fibrillation Migraines Stroke/cerebrovascular accident ESRD (end stage renal disease) on dialysis Lung nodule seen on imaging study Blindness Cataract (lens) fragments in eye following cataract surgery, bilateral Acute bronchitis, unspecified Atrial fibrillation, controlled Essential hypertension Uses prosthesis Seasonal allergies Wears glasses Anxiety Insulin dependent diabetes mellitus Uses wheelchair Arthritis DVT (deep venous thrombosis) History of Holter monitoring High cholesterol TIA (transient ischemic attack) Seizures Dietary restriction History of hiatal hernia Non-smoker CPAP (continuous positive airway pressure) dependence Sleep apnea Shortness of breath on exertion Hypertension History of echocardiogram History of stress test Cardiology follow-up encounter Positive QuantiFERON-TB Gold test Hx of pancreatitis Hepatosplenomegaly Enteritis Nausea and vomiting Alternating constipation and diarrhea Diarrhea HINTON (nonalcoholic steatohepatitis) CKD (chronic kidney disease) Viral gastroenteritis Acute right flank pain Anemia in chronic kidney disease (CKD) COVID-19 virus detected Pneumonia due to COVID-19 virus Below-knee amputation of left lower extremity Osteomyelitis of left foot History of stroke COPD (chronic obstructive pulmonary disease) IBS (irritable bowel syndrome) GERD (gastroesophageal reflux disease) Diastolic dysfunction Cellulitis of left foot Acute kidney injury Right middle lobe pneumonia Hypomagnesemia Osteomyelitis of right foot Peripheral neuropathy Depression Infection of right great toe due to methicillin resistant Staphylococcus aureus (MRSA) Cellulitis of right foot History of MRSA infection Diabetes mellitus Asthma Pulmonary hypertension SLE (systemic lupus erythematosus) Home Medications ?Medication ?Instructions ?Recorded ?Last Taken ?Type duloxetine 60 mg capsule,delayed 60 mg PO QHS depression 11/26/12 10/22/23 History release insulin regular hum U-500 conc 500 2.2 units subcut CONT insulin pump 10/02/15 10/23/23 History unit/mL subcutaneous soln trazodone 100 mg tablet 150 mg PO QHS sleep 12/27/15 10/22/23 History ergocalciferol (vitamin D2) 1,250 50,000 unit PO QWEEK supplement 01/24/16 10/16/23 History mcg (50,000 unit) capsule albuterol sulfate 2.5 mg/3 mL 2.5 mg inhalation Q4H PRN PRN 06/09/16 09/01/16 History (0.083 %) solution for nebulization Wheezing gabapentin 800 mg tablet 800 mg PO TID neuropathy 05/19/17 10/22/23 History rosuvastatin 10 mg tablet 40 mg PO QHS cholesterol 06/03/17 10/22/23 History insulin aspart U-100 100 unit/mL See Protocol subcut ACHS diabetes 07/30/18 10/22/23 History (3 mL) subcutaneous pen magnesium oxide 400 mg (241.3 mg 400 mg PO DAILYCM supplement 07/30/18 10/22/23 History magnesium) tablet hydroxyzine pamoate 50 mg capsule 50 mg PO TID PRN Anxiety 02/20/20 10/22/23 History duloxetine 30 mg capsule,delayed 30 mg PO DAILY depression 05/09/20 10/22/23 History release ondansetron 4 mg disintegrating 8 mg PO Q8H PRN PRN Nausea 09/03/21 Unknown History tablet diphenoxylate-atropine 2.5 1 tab PO BID PRN diarrhea #180 tabs 08/04/22 10/22/23 Rx mg-0.025 mg tablet (Lomotil) hyoscyamine sulfate 0.125 mg tablet 0.125 mg PO BID-QID PRN abdominal 08/04/22 Unknown Rx pain #360 tabs apixaban 5 mg tablet (Eliquis) 5 mg PO BID blood thinner #60 tabs 10/14/22 10/21/23 Rx albuterol sulfate 90 mcg/actuation 2 puff inhalation Q4-6H PRN 02/26/23 Unknown History aerosol inhaler (ProAir HFA) shortness of breath or wheezing brimonidine 0.2 % eye drops 1 drp ophthalmic (eye) DAILY . 02/26/23 10/22/23 History calcitriol 0.5 mcg capsule 0.5 mcg PO BID . 03/26/23 10/22/23 History calcium acetate(phosphat bind) 667 2,668 mg PO TID binder 03/26/23 10/22/23 History mg capsule iron sucrose 100 mg iron/5 mL 100 mg .Route .weekly . 03/26/23 Unknown History intravenous solution (Venofer) epoetin regan-epbx 2,000 unit/mL 2,000 unit subcut QWEEK . 05/14/23 10/19/23 History injection solution (Retacrit) fludrocortisone 0.1 mg tablet 0.1 mg PO DAILY . #30 tabs 06/03/23 10/22/23 Rx fenofibrate nanocrystallized 48 mg 48 mg PO DAILY . 08/11/23 10/22/23 History tablet ursodiol 300 mg capsule 300 mg PO BID LIVER #180 caps 08/17/23 10/22/23 Rx risankizumab-rzaa 360 mg/2.4 mL 360 mg (2.4 mL) subcut .COMPLEX . 08/21/23 08/28/23 Rx (150 mg/mL) subcut wearable #2.4 mL injector (Skyrizi) budesonide 3 mg 9 mg (3 x 3 mg) PO DAILY . #90 ea 08/24/23 10/22/23 Rx capsule,delayed,extended release cinacalcet 30 mg tablet 30 mg PO DAILY . 10/23/23 10/22/23 History midodrine 10 mg tablet 20 mg PO 4XD PRN . 10/23/23 10/22/23 History mupirocin 2 % topical ointment 1 applic topical DAILY . 10/23/23 10/22/23 History omeprazole 40 mg capsule,delayed 40 mg PO DAILY GERD 10/23/23 10/22/23 History release propranolol 60 mg capsule,24 60 mg PO DAILY . 10/23/23 10/22/23 History hr,extended release Allergy/AdvReac Type Severity Reaction Status Date / Time atorvastatin (From Lipitor) AdvReac Severe Vomiting Verified 10/23/23 13:34 oxycodone HCl (From Percocet) AdvReac Severe Vomiting Verified 10/23/23 13:34 Family History Mother Hypertension Cancer skin Grandmother Hypertension Diabetes Brother Cancer NHL Arthritis Brother Arthritis Surgical History (Updated 10/24/23 @ 11:[address] Emily Gandhi DO) Status post insertion of spinal cord stimulator S/P arteriovenous (AV) fistula repair S/P arteriovenous (AV) fistula creation History of lithotripsy History of below-knee amputation of left lower extremity History of eye surgery History of temporal artery biopsy History of lymph node biopsy History of liver biopsy Partial nontraumatic amputation of right foot History of amputation of hallux History of carpal tunnel surgery History of hernia repair History of cholecystectomy History of hysterectomy History of tubal ligation Status post transmetatarsal amputation of right foot Social History Smoking Status: Never smoker second hand exposure: Yes alcohol intake: current details: rare substance use type: does not use Review of Systems (Anesthesia) ROS Narrative System reviewed and no additional complaints, except as documented.
[2023-10-27] MEDS: 0.9% Normal Saline (500mL Bag) 500 ML 15 ML IV (07:15)
[2023-10-27] MEDS: Cefazolin 2 GM in 0.9% Normal Saline (100mL Bag) 100 ML IV (07:40)
[2023-10-27] MEDS: Lidocaine 2% (20 ml mdv) 20 ML Vial (08:00)
[2023-10-27 08:10] LABS: Bedside Glucose 136 mg/dL (74-106)
[2023-10-27] MEDS: Bacitracin 500 UNITS/GM PACKET (08:40)
--- NOTE | 2023-10-27 08:53 | PCM.OPRPT ---
Report of Operation Date of Procedure: 10/27/23 Pre-Operative Diagnosis: Infection of the vertical lumbar incision Post-Operative Diagnosis: Infection of the spinal cord stimulator leads at the vertical lumbar incision, Infection of the spinal cord stimulator generator at the right gluteal region Surgery/Procedure Performed:: Incision and drainage of lumbar vertical wound, incision and drainage of right gluteal region wound, removal of a spinal cord stimulator leads and anchors, removal spinal cord stimulator generator Description of Surgical Findings:: History and physical today was reviewed. Risks and benefits of procedure explained. The patient understood, agreed to procedure, informed consent was obtained. IV inserted per routine protocol. The patient was taken to the operating room, placed in the prone position with a pillow positioned underneath the abdomen. A 2 g of Ancef IV piggyback was infused per anesthesia. The lower back and right gluteal area was prepped and draped in a sterile fashion using iodine x3 Ioban was placed. looking at the vertical incision at the right gluteal region it appears to be positive for swelling as well as fluctuation of the possible fluid in the pocket I decision was made to remove the spinal cord stimulator generator after discussion with the spinal cord stimulator [employer] rep the skin and subcutaneous tissue were anesthetized on both incision to vertical as well as the horizontal incision with a total of 20 cc of preservative-free 0.25% Marcaine with 2% lidocaine 50-50 mix using a 25-gauge regular needle starting on the vertical incision at the mid back area after the area was localized a fishmouth incision was made approximately 6 cm in length and depth was approximately 2 cm. The area was then incised and the tissues were sent for cultures using hemostasis via Bovie the area was then incised and drained until healthy tissue appeared at that point the incision was then soaked with Betadine for approximately 2 minutes the spinal cord stimulator anchors was then removed directly via the anchors and the spinal cord stimulator leads were then removed from the epidural space irrigation with Betadine took place as well the spinal cord stimulator leads were then cut at the inferior and and removed and sent for pathology the spinal cord stimulator generator incision at the right gluteal area after being anesthetized with above mixture approximately 20 cc an incision was made down to the fascia hemostasis obtained with Bovie as well as pressure a serous fluid was then collected from the area and sent for pathology and wound culture spinal cord stimulator generator was then removed and the 2-0 nylon suture was then cut the area was then debrided to the depth of the incision approximately 1 to 2 cm based on the area until healthy tissue was reached the area was copiously irrigated with Betadine hemostasis was maintained with Bovie as well as pressure the spinal cord stimulator generator as well as the leads were then sent for pathology, once hemostasis was maintained and appeared to be a healthy tissue at both incisions the incisions were then closed primarily with a figure of 8 using a an 0 Prolene at both incisions followed by vertical mattress as well as horizontal mattress retention sutures using a 2-0 silk the area was then dressed with Xeroform followed by bacitracin and ABD and 4 x 4 to the area patient was then turned into the supine position return to recovery in a stable condition, patient was then returned into the supine position in a stable condition and returned to recovery in a stable condition patient experienced no signs or symptoms of intrathecal or intravascular injection patient experienced no paresthesia the procedure was completed without any apparent difficulty any complication the patient appeared to tolerate well, motor as well as sensory function was unchanged from prior to the procedure ESTIMATED BLOOD LOSS: Minimal less than 25 mL ASSESSMENT AND PLAN: This is a 53-year-old female with Infection of the spinal cord stimulator leads at the vertical lumbar incision, Infection of the spinal cord stimulator generator at the right gluteal region status post Incision and drainage of lumbar vertical wound, incision and drainage of right gluteal region wound, removal of a spinal cord stimulator leads and anchors, removal spinal cord stimulator generator, patient will continue her current medications, Patient will continue with her current IV antibiotic per infectious disease consult sutures will stay in place for approximately 1 to 2 weeks patient will follow-up as an outpatient for removal of the suture as indicated, the above was discussed with the patient as well as her in details Surgeon: Johann Dunlap application security specialist: Kierra Berg Type of Anesthesia: MAC and MAC/Supplemental/Local
--- NOTE | 2023-10-27 09:10 | PCM.POST.ANE ---
Anesthesia: Postop Eval I Current Vital Signs Temperature: 97.5 F Pulse Rate: 74 Blood Pressure: 92/49 Respiratory Rate: 16 Pulse Ox: 96 Oxygen Delivery Method: Simple Mask Oxygen Flow Rate (L/min): 6 Assessment Airway patent: Yes Spontaneous unlabored respirations: Yes Mental status: Awake nausea: No Vomiting: No Anesthesia Complication: Yes Anesthesia Complication Comment:: O2 desat d/t upper airway obstruction, nasal airway placed, removed prior to PACU Fluid Hydration Crystalloid volume administer (ml): 200 Total IV fluid infused: 200 Progress Note Anesthesia document: Postop Eval 1 completed: Yes
--- NOTE | 2023-10-27 09:13 | WOUNDNOTE ---
Pt is currently off unit for surgery.
--- NOTE | 2023-10-27 09:19 | PCM.POSTANE2 ---
Anesthesia Postop Eval I Sum Postop Eval Completion status Anesthesia document: Postop Eval 1 completed: Yes Anesthesia Postop Eval I Summary Anesthesia Postop Eval I Summary: Anesthesia Postop Eval I: Assessment Summary Airway patent Yes 10/27/23 09:12 [email or web address] Spontaneous unlabored Yes 10/27/23 09:12 [email or web address] respirations Mental status Awake 10/27/23 09:12 [email or web address] nausea No 10/27/23 09:12 [email or web address] Vomiting No 10/27/23 09:12 [email or web address] Anesthesia Postop Eval I: Fluid Summary Crystalloid volume administer 200 10/27/23 09:12 [email or web address] (ml) Colloids volume administered ( ml) Blood Product volume administered (ml) Total IV fluid infused 200 10/27/23 09:12 [email or web address] Anesthesia Postop Eval I: Summary Notes Anesthesia Complication Yes 10/27/23 09:12 [email or web address] Anesthesia Complication O2 desat d/t upper 10/27/23 09:12 [email or web address] Comment: airway obstruction, nasal airway placed, removed prior to PACU Post-operative progress note Anesthesia: Postop Eval II Evaluation Mental status: Awake Pain Level: 0 nausea: No Vomiting: No
[2023-10-27 09:53] LABS: Hemoglobin A1c 6.5 % (3.8-5.6)
--- NOTE | 2023-10-27 10:22 | PCM.PN.ID ---
Physical Exam Narrative Sleeping s/p OR this AM, no fever, family at bedside Const no apparent distress Resp normal air movement and clear to auscultation bilaterally Cardio regular rate and regular rhythm GI soft to palpation, non-tender and non-distended Skin Skin Narrative: surg dressing in place ID ID: Route of nutrition/ use of supplements: [] Nutritional Intake: [] IV Site: [] Huerta Catheter: [] Assessment & Plan Assessment/Plan (1) Infection of spinal cord stimulator: PLAN: Wound cx with PsA. Cont cefepime. Device removed this AM 10/27/[address] Krause, d/w him last night. Will follow (2) ESRD (end stage renal disease) on dialysis:
[2023-10-27] MEDS: oxyCODONE 5 MG Tablet PO ×2 (11:56→20:29)
[2023-10-27 11:57] LABS: Bedside Glucose 141 mg/dL (74-106)
[2023-10-27] MEDS: Acetaminophen 325 MG Tablet 650 MG PO ×2 (11:57→20:29)
[2023-10-27] MEDS: 0.9% Saline Lock 10 ML Syringe IV ×3 (11:57→14:01)
[2023-10-27] MEDS: Ondansetron ODT 4 MG Tablet 8 MG PO (11:57)
[2023-10-27] MEDS: Ursodiol 250 MG Tablet PO ×2 (12:02→20:29)
[2023-10-27] MEDS: Midodrine HCl 5 MG Tablet 20 MG PO ×2 (12:02→17:03)
[2023-10-27] MEDS: Calcium Acetate 667 MG Capsule 2668 MG PO ×2 (12:03→17:02)
[2023-10-27] MEDS: Cinacalcet HCl 30 MG Tablet PO (12:03)
[2023-10-27] MEDS: Budesonide 3 MG CAPSULE.EC 9 MG PO (12:04)
[2023-10-27] MEDS: Fludrocortisone Acetate 0.1 MG Tablet PO (12:05)
[2023-10-27] MEDS: Pantoprazole Sodium 40 MG Tablet PO (12:05)
[2023-10-27] MEDS: BRIMONIDINE 0.2% 5ML BOTTLE 1 DRP OPHTHALMIC (12:05)
[2023-10-27] MEDS: DULoxetine Hcl 30 MG Capsule PO (12:06)
[2023-10-27] MEDS: Magnesium Chloride 64 MG Delay Rel.Tablet 128 MG PO (12:06)
[2023-10-27] MEDS: Calcitriol 0.25 MCG Capsule 0.5 MCG PO ×2 (12:07→20:29)
[2023-10-27] MEDS: Propranolol LA 60 MG Capsule PO (12:07)
--- NOTE | 2023-10-27 13:52 | PCM.PN.REN ---
Subjective Subjective spinal stimulator and battery removed today. Will need iv antibx per ID. Dialysis tomorrow Objective Data Objective Data Vital Signs: Vital Signs Temp Pulse Resp BP Pulse Ox O2 Del Method O2 Flow Rate 98.5 F 64 16 111/60 98 Nasal Cannula 2 10/27/23 13:46 10/27/23 13:46 10/27/23 13:46 10/27/23 13:46 10/27/23 13:46 10/27/23 13:46 10/27/23 13:46 Oxygen Flow Rate (L/min) 2 Oxygen Delivery Method Nasal Cannula Weight: 92.3 kg Body Mass Index (BMI) 32.7 Intake & Output: Intake and Output for Last 24 Hours 10/25/23 10/26/23 10/27/23 23:59 23:59 23:59 Intake Total 810 / 1010 923.25 / 923.25 460 / 460 Output Total 6000 / 6000 6190 / 6190 Balance -5190 / -4990 -5266.75 / -5266.75 460 / 460 Lab / Micro Data 10/27/23 03:10 10/27/23 03:10 Labs: Laboratory Results - last 24 hr 10/26/23 16:58: POC Glucose 172 H 10/26/23 20:06: POC Glucose 167 H 10/27/23 03:10: WBC 10.0, RBC 2.74 L, Hgb 9.0 L, Hct 28.3 L, MCV 103.3 H, MCH 32.8 H, MCHC 31.8 L, RDW Std Deviation 55.5 H, RDW Coeff of Michael 15.1 H, Plt Count 214, MPV 9.7, Immature Gran % (Auto) 2.100 H, Neut % (Auto) 76.3 H, Lymph % (Auto) 12.5 L, [place] % (Auto) 7.3, Eos % (Auto) 1.6, Baso % (Auto) 0.2, Absolute Neuts (auto) 7.7, Absolute Lymphs (auto) 1.25, Nucleated RBC % 0.2, Sodium 136, Potassium 4.7, Chloride 102, Carbon Dioxide 25.0, Anion Gap 9, BUN 48 H, Creatinine 6.87 H, Estim Creat Clear Calc 10.96, Est GFR (MDRD) Af Amer 8 L, Est GFR (MDRD) Non-Af 7 L, BUN/Creatinine Ratio 7.0 L, Glucose 155 H, Hemoglobin A1c 6.5 H, Calcium 11.1 H 10/27/23 06:20: POC Glucose 136 H 10/27/23 11:14: POC Glucose 141 H Micro: Microbiology 10/23/23 17:05 Blood Culture (Wb) - Right Forearm Blood Culture - Preliminary No growth in 48 hours. Rhythm Strip Rhythm Strip: Sinus Rhythm Rate: 74 Ectopy: None Physical Exam Const alert and oriented x3 General Appearance: well developed HEENT normocephalic Resp clear to auscultation bilaterally Cardio regular rate GI non-tender and non-distended Auscultation: normoactive bowel sounds Palpation: soft Back/Spine Back/Spine Narrative: low back pain incision site with erythema, boggy, tender to palpation Extremity full ROM Skin Wounds: wounds noted Wound Narrative: see able Neuro CN's II-XII intact bilaterally Sensorium / Orientation: awake and alert Psych cooperative Assessment & Plan Assessment/Plan (1) ESRD (end stage renal disease) on dialysis: PLAN: dialysis tomorrow (2) Hyperkalemia: PLAN: resolved (3) Surgical site infection: PLAN: wound cx with psag s/p spinal stimulator and battery removed today. Ok for PICC right arm if needs mcfp iv antibx (4) Secondary hyperparathyroidism: PLAN: sensipar calcitriol (5) Iron (Fe) deficiency anemia: QUALIFIERS: Iron deficiency anemia type: other iron deficiency Qualified Code(s): D50.8 - Other iron deficiency anemias PLAN: hgb 9g KURT with dialysis (6) DM type 2 (diabetes mellitus, type 2): (7) Hx of BKA:
[2023-10-27] MEDS: Morphine 2 MG/ML Syringe 1 MG IV (13:58)
[2023-10-27] MEDS: Gabapentin 800 MG Tablet PO ×2 (13:59→20:29)
[2023-10-27 16:32] LABS: Bedside Glucose 142 mg/dL (74-106)
--- NOTE | 2023-10-27 16:37 | PN.HOSP_ITS ---
Reason for Visit Reason for Visit: Diagnoses End stage renal disease (10/23/23) Infection following a procedure, other surgical site, initial encounter (10/23/23) Infection and inflammatory reaction due to implanted electronic neurostimulator of spinal cord, electrode (lead), initial encounter (10/23/23) Dependence on renal dialysis (10/23/23) Subjective Subjective Patient was seen and examined today, patient underwent removal of spinal cord stimulator leads and the spinal cord stimulator generator due to infection. Patient voices no complaints of any fever or chills. Objective Data Objective Data Vital Signs: Vital Signs Temp Pulse Resp BP Pulse Ox O2 Del Method O2 Flow Rate 98.5 F 64 16 111/60 98 Room Air 2 10/27/23 13:46 10/27/23 13:46 10/27/23 13:46 10/27/23 13:46 10/27/23 13:46 10/27/23 16:17 10/27/23 13:46 Oxygen Flow Rate (L/min) 2 Oxygen Delivery Method Room Air Weight: 92.3 kg Body Mass Index (BMI) 32.7 Intake & Output: Intake and Output for Last 24 Hours 10/25/23 10/26/23 10/27/23 23:59 23:59 23:59 Intake Total 810 / 1010 923.25 / 923.25 460 / 460 Output Total 6000 / 6000 6190 / 6190 Balance -5190 / -4990 -5266.75 / -5266.75 460 / 460 Lab / Micro Data 10/27/23 03:10 10/27/23 03:10 Labs: Laboratory Results - last 24 hr 10/26/23 16:58: POC Glucose 172 H 10/26/23 20:06: POC Glucose 167 H 10/27/23 03:10: WBC 10.0, RBC 2.74 L, Hgb 9.0 L, Hct 28.3 L, MCV 103.3 H, MCH 32.8 H, MCHC 31.8 L, RDW Std Deviation 55.5 H, RDW Coeff of Michael 15.1 H, Plt Count 214, MPV 9.7, Immature Gran % (Auto) 2.100 H, Neut % (Auto) 76.3 H, Lymph % (Auto) 12.5 L, [place] % (Auto) 7.3, Eos % (Auto) 1.6, Baso % (Auto) 0.2, Absolute Neuts (auto) 7.7, Absolute Lymphs (auto) 1.25, Nucleated RBC % 0.2, Sodium 136, Potassium 4.7, Chloride 102, Carbon Dioxide 25.0, Anion Gap 9, BUN 48 H, Creatinine 6.87 H, Estim Creat Clear Calc 10.96, Est GFR (MDRD) Af Amer 8 L, Est GFR (MDRD) Non-Af 7 L, BUN/Creatinine Ratio 7.0 L, Glucose 155 H, H emoglobin A1c 6.5 H, Calcium 11.1 H 10/27/23 06:20: POC Glucose 136 H 10/27/23 11:14: POC Glucose 141 H 10/27/23 16:13: POC Glucose 142 H Micro: Microbiology 10/23/23 17:05 Blood Culture (Wb) - Right Forearm Blood Culture - Preliminary No growth in 48 hours. Rhythm Strip Rhythm Strip: Sinus Rhythm Rate: 74 Ectopy: None Physical Exam Narrative alert, oriented x3, no apparent distress and healthy appearing General Appearance: cooperative, well kempt and well developed Orientation / Consciousness: awake, oriented to person, oriented to place and oriented to time HEENT normocephalic and moist oral mucous membranes Eyes PERRL, EOMs intact bilaterally and conjunctivae normal Neck supple, no JVD, thyroid normal and no carotid bruits General: trachea midline Resp normal respiratory effort, no retractions, no use of accessory muscles and clear to auscultation bilaterally Auscultation: Negative for rales, rhonchi or wheezes Cardio regular rate, regular rhythm, S1 normal heart sound, S2 normal heart sound, no murmurs, no rub and no gallops GI normal to inspection, nondistended, normoactive bowel sounds, soft to palpation, non-tender and non-distended Extremity Extremity Narrative: Patient has a left below the knee amputation which is remote Skin Skin Narrative: The area over the operative site in the lower lumbar area was not examined today, surgical dressing was in place Neuro oriented x3, CN's II-XII intact bilaterally and no focal motor deficits Sensorium / Orientation: awake and alert Speech: speech normal Psych affect normal Assessment & Plan Assessment/Plan (1) Infection of spinal cord stimulator: PLAN: Plan 1. Surgical site infection of previously implanted spinal cord stimulator- organism appears to be Pseudomonas, continue antibiotic coverage per ID, pain management remove the spinal cord stimulator generator and its leads today #2 end-stage renal disease-nephrology participating in her care, she will have dialysis tomorrow #3 type 2 diabetes-blood sugars will be monitored, sliding scale insulin will be given as needed #4 paroxysmal [id number] has been off Eliquis for now due to the possibility she may need surgery #5 chronic anemia secondary to end-stage renal disease-patient's hemoglobin today was 9, monitor CBC as needed #6 chronic depression-patient is on Cymbalta Total clinical time spent by myself addressing the patient's medical issues, reviewing all of her data, and collaborating with patient's care team: 35 minutes Charges/Coding Visit Charges Inpatient E&M: 41021 Subs Hosp L2
[2023-10-27] MEDS: Diphenoxylate/Atrop 1 Tablet PO (17:17)
[2023-10-27] MEDS: ROSUVASTATIN CALCIUM 40 MG TABLET PO (20:28)
[2023-10-27] MEDS: DULoxetine Hcl 60 MG Capsule PO (20:28)
[2023-10-27] MEDS: traZODone 100 MG Tablet 150 MG PO (20:28)
[2023-10-27] MEDS: Insulin Lispro 100 UNIT/ML INSULN.PEN SC (20:28)
[2023-10-27] MEDS: Cefepime HCl 1 GM in 0.9% Normal Saline (50mL MB+) 50 ML IV (20:29)
[2023-10-27 22:19] LABS: Bedside Glucose 158 mg/dL (74-106)
[2023-10-28] VITALS (13 sets, daily range): BP systolic 84–309; BP diastolic 52–63; PULSE 56–87; RESP 12–18; TEMP 36.7–37.2; O2SAT 92–100; BMI 32.7; BMI 32.5
[2023-10-28] MEDS: oxyCODONE 5 MG Tablet PO ×3 (02:13→18:07)
[2023-10-28] MEDS: Acetaminophen 325 MG Tablet 650 MG PO ×3 (02:14→18:07)
[2023-10-28] MEDS: Gabapentin 800 MG Tablet PO ×3 (06:33→21:08)
[2023-10-28 06:58] LABS: Absolute Lymphocyte Count 1.37 X10^3/uL (0.83-4.51); Absolute Neutrophil Count 5.3 X10^3/uL (2.0-7.7); Basophil# 0.04 X10^3/uL; Basophil% 0.5 % (0-1); Eosinophil# 0.15 X10^3/uL; Hematocrit 29.7 % (37-47); Hemoglobin 9.3 g/dL (12.0-15.0); Lymphocyte # 1.37 X10^3/ul (0.83-4.51); Lymphocyte % 17.8 % (19-41); Mean Corp Hgb Conc 31.3 g/dL (32-36); Mean Corpuscular Hgb 33.6 pg (27.0-32.0); Mean Corpuscular Volume 107.2 fL (81-99); Mean Platelet Vol. 10.2 fl (6.2-12.0); Monocyte# 0.62 X10^3/uL; Monocyte% 8.1 % (0-10); NRBC Flagged by Analyzer 0.3 % (0-5); Neutrophil # 5.32 X10^3/uL (2.7-7.7); Neutrophil % 69.1 % (47-70); Platelet Count 198 K/mm3 (150-450); RBC Distribution Width CV 15.3 % (11.6-14.6); RBC Distribution Width SD 57.8 fl (35.1-43.9); Red Blood Count 2.77 M/mm3 (4.2-5.4); White Blood Count 7.7 K/mm3 (4.4-11.0)
[2023-10-28 07:08] LABS: Bedside Glucose 128 mg/dL (74-106)
[2023-10-28 08:21] LABS: Anion Gap 9 (5-15); BUN 64 mg/dL (7-18); BUN/Creat Ratio 7.3 RATIO (10-20); Chloride 102 mmol/L (98-107); Creatinine, Serum 8.76 mg/dL (0.55-1.02); EST Glomerular Filtration Rate 5 mL/min (>60); Est Glom Filt Rate - Afr Amer 6 mL/min (>60); Glucose 145 mg/dL (74-106); Potassium 5.2 mmol/L (3.5-5.1); Sodium Level 134 mmol/L (136-145)
[2023-10-28] MEDS: Midodrine HCl 5 MG Tablet 20 MG PO ×3 (08:27→19:45)
[2023-10-28] MEDS: Calcitriol 0.25 MCG Capsule 0.5 MCG PO ×2 (09:00→21:08)
[2023-10-28] MEDS: Epoetin Alfa epbx 10,000 UNIT/ML 20000 UNIT IV (10:43)
[2023-10-28 11:59] LABS: Bedside Glucose 121 mg/dL (74-106)
--- NOTE | 2023-10-28 12:42 | PCM.PN.REN ---
Subjective Subjective seen on dialysis. Attempt 2.5L fluid removal as tolerated. Still with back pain. Objective Data Objective Data Vital Signs: Vital Signs Temp Pulse Resp BP Pulse Ox O2 Del Method O2 Flow Rate 98.0 F 69 16 100/60 94 Nasal Cannula 2 10/28/23 08:10 10/28/23 11:32 10/28/23 11:32 10/28/23 11:32 10/28/23 11:32 10/28/23 11:32 10/28/23 11:32 Oxygen Flow Rate (L/min) 2 Oxygen Delivery Method Nasal Cannula Weight: 91.9 kg Body Mass Index (BMI) 32.5 Intake & Output: Intake and Output for Last 24 Hours 10/26/23 10/27/23 10/28/23 23:59 23:59 23:59 Intake Total 923.25 / 923.25 1264.50 / 1414.50 250 / 250 Output Total 6190 / 6190 1770 / 1770 Balance -5266.75 / -5266.75 1264.50 / 1414.50 -1520 / -1520 Lab / Micro Data 10/28/23 06:41 10/28/23 06:41 Labs: Laboratory Results - last 24 hr 10/27/23 16:13: POC Glucose 142 H 10/27/23 20:25: POC Glucose 158 H 10/28/23 06:33: POC Glucose 128 H 10/28/23 06:41: WBC 7.7, RBC 2.77 L, Hgb 9.3 L, Hct 29.7 L, MCV 107.2 H, MCH 33.6 H, MCHC 31.3 L, RDW Std Deviation 57.8 H, RDW Coeff of Michael 15.3 H, Plt Count 198, MPV 10.2, Immature Gran % (Auto) 2.500 H, Neut % (Auto) 69.1, Lymph % (Auto) 17.8 L, [place] % (Auto) 8.1, Eos % (Auto) 2.0, Baso % (Auto) 0.5, Absolute Neuts (auto) 5.3, Absolute Lymphs (auto) 1.37, Nucleated RBC % 0.3, Sodium 134 L, Potassium 5.2 H, Chloride 102, Carbon Dioxide 23.0, Anion Gap 9, BUN 64 H, Creatinine 8.76 H*, Estim Creat Clear Calc 8.60, Est GFR (MDRD) Af Amer 6 L, Est GFR (MDRD) Non-Af 5 L, BUN/Creatinine Ratio 7.3 L, Glucose 145 H, Calcium 11.0 H 10/28/23 11:39: POC Glucose 121 H Micro: Microbiology 10/27/23 09:10 Incision/Surgical Site Wound Culture - Preliminary GNR Poss Pseudomonas sp 10/27/23 09:10 Tissue - Back Wound Culture - Preliminary GNR Poss Pseudomonas sp 10/23/23 17:05 Blood Culture (Wb) - Right Forearm Blood Culture - Preliminary No growth in 48 hours. Rhythm Strip Rhythm Strip: Sinus Rhythm Rate: 74 Ectopy: None Physical Exam Const alert and oriented x3 Resp clear to auscultation bilaterally Cardio regular rate GI non-tender and non-distended Palpation: soft Psych cooperative Assessment & Plan Assessment/Plan (1) ESRD (end stage renal disease) on dialysis: PLAN: dialysis today, next tx Thursday (2) Hyperkalemia: PLAN: resolved (3) Surgical site infection: PLAN: wound cx with psag s/p spinal stimulator and battery removed today. Ok for PICC right arm if needs retirement iv antibx (4) Secondary hyperparathyroidism: PLAN: sensipar calcitriol (5) Iron (Fe) deficiency anemia: QUALIFIERS: Iron deficiency anemia type: other iron deficiency Qualified Code(s): D50.8 - Other iron deficiency anemias PLAN: hgb 9g KURT with dialysis (6) DM type 2 (diabetes mellitus, type 2): (7) Hx of BKA:
[2023-10-28] MEDS: Calcium Acetate 667 MG Capsule 2668 MG PO ×3 (13:17→17:00)
[2023-10-28] MEDS: Magnesium Chloride 64 MG Delay Rel.Tablet 128 MG PO (13:17)
[2023-10-28] MEDS: Fludrocortisone Acetate 0.1 MG Tablet PO (13:18)
[2023-10-28] MEDS: Cinacalcet HCl 30 MG Tablet PO (13:19)
[2023-10-28] MEDS: Pantoprazole Sodium 40 MG Tablet PO (13:20)
[2023-10-28] MEDS: Ursodiol 250 MG Tablet PO ×2 (13:20→21:08)
[2023-10-28] MEDS: DULoxetine Hcl 30 MG Capsule PO (13:21)
[2023-10-28] MEDS: Budesonide 3 MG CAPSULE.EC 9 MG PO (13:21)
[2023-10-28] MEDS: BRIMONIDINE 0.2% 5ML BOTTLE 1 DRP OPHTHALMIC (13:21)
[2023-10-28] MEDS: Propranolol LA 60 MG Capsule PO (13:21)
--- NOTE | 2023-10-28 13:27 | PCM.PN.ID ---
Physical Exam Narrative feeling ok, some pain in back, no fever, some nausea Const alert and no apparent distress General Appearance: cooperative Resp normal air movement and clear to auscultation bilaterally Cardio regular rate and regular rhythm GI soft to palpation, non-tender and non-distended Skin no rashes or lesions noted ID ID: Route of nutrition/ use of supplements: [] Nutritional Intake: [] IV Site: [] Huerta Catheter: [] Assessment & Plan Assessment/Plan (1) Infection of spinal cord stimulator: PLAN: Recent wound cx with PsA. Cont cefepime. Device removed 10/27/[address] Dunlap. Surg cx with PsA-like so far. Could be candidate for po cipro at discharge. Will follow (2) ESRD (end stage renal disease) on dialysis:
--- NOTE | 2023-10-28 14:47 | PN.HOSP_ITS ---
Reason for Visit Reason for Visit: Diagnoses Other iron deficiency anemias (10/23/23) Type 2 diabetes mellitus without complications (10/23/23) Hyperkalemia (10/23/23) End stage renal disease (10/23/23) Secondary hyperparathyroidism of renal origin (10/23/23) Infection following a procedure, other surgical site, initial encounter (10/23/23) Infection and inflammatory reaction due to implanted electronic neurostimulator of spinal cord, electrode (lead), initial encounter (10/23/23) Acquired absence of unspecified leg below knee (10/23/23) Dependence on renal dialysis (10/23/23) Subjective Subjective Patient was seen and examined today, wound culture is growing out possible Pseudomonas, ID states that the patient may be able to go home tomorrow with oral Cipro. I will let Dr. Krause know by text what the medical plan is currently. Objective Data Objective Data Vital Signs: Vital Signs Temp Pulse Resp BP Pulse Ox O2 Del Method O2 Flow Rate 98.0 F 69 16 100/60 94 Nasal Cannula 2 10/28/23 11:31 10/28/23 11:32 10/28/23 11:32 10/28/23 11:32 10/28/23 11:32 10/28/23 11:32 10/28/23 11:32 Oxygen Flow Rate (L/min) 2 Oxygen Delivery Method Nasal Cannula Weight: 91.9 kg Body Mass Index (BMI) 32.5 Intake & Output: Intake and Output for Last 24 Hours 10/26/23 10/27/23 10/28/23 23:59 23:59 23:59 Intake Total 923.25 / 923.25 1264.50 / 1414.50 350 / 350 Output Total 6190 / 6190 1770 / 1770 Balance -5266.75 / -5266.75 1264.50 / 1414.50 -1420 / -1420 Lab / Micro Data 10/28/23 06:41 10/28/23 06:41 Labs: Laboratory Results - last 24 hr 10/27/23 16:13: POC Glucose 142 H 10/27/23 20:25: POC Glucose 158 H 10/28/23 06:33: POC Glucose 128 H 10/28/23 06:41: WBC 7.7, RBC 2.77 L, Hgb 9.3 L, Hct 29.7 L, MCV 107.2 H, MCH 33.6 H, MCHC 31.3 L, RDW Std Deviation 57.8 H, RDW Coeff of Michael 15.3 H, Plt Count 198, MPV 10.2, Immature Gran % (Auto) 2.500 H, Neut % (Auto) 69.1, Lymph % (Auto) 17.8 L, [place] % (Auto) 8.1, Eos % (Auto) 2.0, Baso % (Auto) 0.5, Absolute Neuts (auto) 5.3, Absolute Lymphs (auto) 1.37, Nucleated RBC % 0.3, Sodium 134 L , Potassium 5.2 H, Chloride 102, Carbon Dioxide 23.0, Anion Gap 9, BUN 64 H, C reatinine 8.76 H*, Estim Creat Clear Calc 8.60, Est GFR (MDRD) Af Amer 6 L, Est GFR (MDRD) Non-Af 5 L, BUN/Creatinine Ratio 7.3 L, Glucose 145 H, Calcium 11.0 H 10/28/23 11:39: POC Glucose 121 H Micro: Microbiology 10/27/23 09:10 Incision/Surgical Site Gram Stain - Final 10/27/23 09:10 Incision/Surgical Site Wound Culture - Preliminary GNR Poss Pseudomonas sp 10/27/23 09:10 Tissue - Back Gram Stain - Final 10/27/23 09:10 Tissue - Back Wound Culture - Preliminary GNR Poss Pseudomonas sp 10/27/23 09:10 Implant - Other Gram Stain - Final 10/23/23 17:05 Blood Culture (Wb) - Right Forearm Blood Culture - Preliminary No growth in 48 hours. Rhythm Strip Rhythm Strip: Sinus Rhythm Rate: 74 Ectopy: None Physical Exam Narrative alert, oriented x3, no apparent distress and healthy appearing General Appearance: cooperative, well kempt and well developed Orientation / Consciousness: awake, oriented to person, oriented to place and oriented to time HEENT normocephalic and moist oral mucous membranes Eyes PERRL, EOMs intact bilaterally and conjunctivae normal Neck supple, no JVD, thyroid normal and no carotid bruits General: trachea midline Resp normal respiratory effort, no retractions, no use of accessory muscles and clear to auscultation bilaterally Auscultation: Negative for rales, rhonchi or wheezes Cardio regular rate, regular rhythm, S1 normal heart sound, S2 normal heart sound, no murmurs, no rub and no gallops GI normal to inspection, nondistended, normoactive bowel sounds, soft to palpation, non-tender and non-distended Extremity Extremity Narrative: Patient has a left below the knee amputation which is remote Skin Skin Narrative: The area over the operative site in the lower lumbar area was not examined today, surgical dressing was in place Neuro oriented x3, CN's II-XII intact bilaterally and no focal motor deficits Sensorium / Orientation: awake and alert Speech: speech normal Psych affect normal Assessment & Plan Assessment/Plan (1) Infection of spinal cord stimulator: PLAN: Plan 1. Surgical site infection of previously implanted spinal cord stimulator- organism appears to be Pseudomonas, continue antibiotic coverage per ID, patient may be able to go home soon on oral Cipro #2 end-stage renal disease-nephrology participating in her care, she had dialysis today #3 type 2 diabetes-blood sugars will be monitored, sliding scale insulin will be given as needed #4 paroxysmal [id number] has been off Eliquis for now due to the possibility she may need surgery #5 chronic anemia secondary to end-stage renal disease-patient's hemoglobin today was 9.3 #6 chronic depression-patient is on Cymbalta Total clinical time spent by myself addressing the patient's medical issues, reviewing all of her data, and collaborating with patient's care team: 35 minutes Charges/Coding Visit Charges Inpatient E&M: 68824 Subs Hosp L2
--- NOTE | 2023-10-28 14:47 | WOUNDNOTE ---
wound photo: mid lower back/right upper buttock
--- NOTE | 2023-10-28 16:08 | CASEMGMT ---
Social Work SW met with pt to discuss advance directives.? Pt confirms she has completed a living will and health care POA naming her Alek Lux.? Pt notified that documents are not on file at [facility] and SW requested they be brought in for scanning into the EMR.? CHARLES Benavides
[2023-10-28 16:58] LABS: Bedside Glucose 233 mg/dL (74-106)
[2023-10-28] MEDS: Insulin Lispro 100 UNIT/ML INSULN.PEN SC ×2 (17:57→21:12)
[2023-10-28] MEDS: ROSUVASTATIN CALCIUM 40 MG TABLET PO (21:07)
[2023-10-28] MEDS: traZODone 100 MG Tablet 150 MG PO (21:07)
[2023-10-28] MEDS: DULoxetine Hcl 60 MG Capsule PO (21:07)
[2023-10-28] MEDS: 0.9% Saline Lock 10 ML Syringe IV (21:08)
[2023-10-28] MEDS: Morphine 2 MG/ML Syringe 1 MG IV (21:13)
[2023-10-28] MEDS: Cefepime HCl 1 GM in 0.9% Normal Saline (50mL MB+) 50 ML IV (21:14)
[2023-10-28 22:21] LABS: Bedside Glucose 197 mg/dL (74-106)
[2023-10-29] VITALS (7 sets, daily range): BP systolic 109–166; BP diastolic 50–86; PULSE 62–74; RESP 16–18; TEMP 36.3–36.9; O2SAT 93–100
[2023-10-29] MEDS: Gabapentin 800 MG Tablet PO ×3 (06:00→22:53)
[2023-10-29 07:18] LABS: Bedside Glucose 146 mg/dL (74-106)
[2023-10-29] MEDS: Pantoprazole Sodium 40 MG Tablet PO (08:19)
[2023-10-29] MEDS: Ondansetron 4 MG/2 ML Vial IV (08:19)
[2023-10-29] MEDS: Calcium Acetate 667 MG Capsule 2668 MG PO ×3 (08:20→16:35)
[2023-10-29] MEDS: Acetaminophen 325 MG Tablet 650 MG PO ×3 (08:20→19:57)
[2023-10-29] MEDS: Midodrine HCl 5 MG Tablet 20 MG PO ×3 (08:21→16:36)
[2023-10-29] MEDS: Calcitriol 0.25 MCG Capsule 0.5 MCG PO ×2 (10:06→22:54)
[2023-10-29] MEDS: Cinacalcet HCl 30 MG Tablet PO (10:06)
[2023-10-29] MEDS: DULoxetine Hcl 30 MG Capsule PO (10:06)
[2023-10-29] MEDS: Fludrocortisone Acetate 0.1 MG Tablet PO (10:07)
[2023-10-29] MEDS: Propranolol LA 60 MG Capsule PO (10:07)
[2023-10-29] MEDS: Magnesium Chloride 64 MG Delay Rel.Tablet 128 MG PO (10:08)
[2023-10-29] MEDS: BRIMONIDINE 0.2% 5ML BOTTLE 1 DRP OPHTHALMIC (10:08)
[2023-10-29] MEDS: Budesonide 3 MG CAPSULE.EC 9 MG PO (10:08)
[2023-10-29] MEDS: Ursodiol 250 MG Tablet PO ×2 (10:08→22:53)
--- NOTE | 2023-10-29 10:29 | PCM.PN.ID ---
Physical Exam Narrative Ongoing pain, was able to get up and go to bathroom. No fever, no n/v/d. Const alert and no apparent distress General Appearance: cooperative Resp normal air movement and clear to auscultation bilaterally Cardio regular rate and regular rhythm GI soft to palpation, non-tender and non-distended Skin no rashes or lesions noted ID ID: Route of nutrition/ use of supplements: [] Nutritional Intake: [] IV Site: [] Huerta Catheter: [] Assessment & Plan Assessment/Plan (1) Infection of spinal cord stimulator: PLAN: Recent wound cx with PsA. Cont cefepime. Device removed 10/27/[address] Dunlap. Surg cx with PsA. Will order midline and two weeks daily cefepime with weekly labs, ID followup 2 weeks. Will follow (2) ESRD (end stage renal disease) on dialysis:
[2023-10-29] MEDS: oxyCODONE 5 MG Tablet PO ×2 (11:40→19:57)
[2023-10-29] MEDS: Insulin Lispro 100 UNIT/ML INSULN.PEN SC ×3 (11:49→22:58)
[2023-10-29 12:09] LABS: Bedside Glucose 209 mg/dL (74-106)
--- NOTE | 2023-10-29 13:38 | PCM.PN.HOSP ---
Reason for Visit Reason for Visit: Diagnoses Other iron deficiency anemias (10/23/23) Type 2 diabetes mellitus without complications (10/23/23) Hyperkalemia (10/23/23) End stage renal disease (10/23/23) Secondary hyperparathyroidism of renal origin (10/23/23) Infection following a procedure, other surgical site, initial encounter (10/23/23) Infection and inflammatory reaction due to implanted electronic neurostimulator of spinal cord, electrode (lead), initial encounter (10/23/23) Acquired absence of unspecified leg below knee (10/23/23) Dependence on renal dialysis (10/23/23) Subjective Subjective Saw patient at bedside this morning, daughter present. Patient was sitting up fairly comfortably in bed, conversing normally, in no acute distress. States that she does continue to have moderate pain at the surgical incision site that improves with IV morphine. [place] has been somewhat helpful for the pain. Patient was concerned about being discharged given her ongoing pain and that she would not be able to get any IV pain medications after discharge. I spoke with patient's pain managment physician Dr. Dunlap over the phone over this afternoon. He noted that patient will not be able to have another spinal stimulator placed unfortunately for another 3 months. In the meantime, he recommended that patient utilize as needed oral opiates for pain relief. He anticipated that the pain at the incision site would continue to improve over time and patient should not need IV medications for this. I saw the patient at the bedside this afternoon to discuss further. She had worked with physical therapy later in the morning and did well with them, and her pain was improved this afternoon. She was agreeable to utilizing as needed oral pain medications on discharge with tentative plan for discharge home tomorrow. Objective Data Objective Data Vital Signs: Vital Signs Temp Pulse Resp BP Pulse Ox O2 Del Method O2 Flow Rate 98.0 F 62 18 109/56 L 97 Room Air 2 10/29/23 08:44 10/29/23 08:44 10/29/23 08:44 10/29/23 08:44 10/29/23 08:44 10/29/23 08:44 10/29/23 11:39 Oxygen Flow Rate (L/min) 2 Oxygen Delivery Method Room Air Weight: 91.9 kg Body Mass Index (BMI) 32.5 Intake & Output: Intake and Output for Last 24 Hours 10/27/23 10/28/23 10/29/23 23:59 23:59 23:59 Intake Total 1264.50 / 1414.50 400 / 400 Output Total 1770 / 1770 Balance 1264.50 / 1414.50 -1370 / -1370 Lab / Micro Data 10/28/23 06:41 10/28/23 06:41 Labs: Laboratory Results - last 24 hr 10/28/23 16:39: POC Glucose 233 H 10/28/23 21:07: POC Glucose 197 H 10/29/23 06:58: POC Glucose 146 H 10/29/23 11:46: POC Glucose 209 H Micro: Microbiology 10/27/23 09:10 Implant - Other Gram Stain - Final 10/27/23 09:10 Implant - Other Wound Culture - Preliminary GNR Poss Pseudomonas sp 10/27/23 09:10 Incision/Surgical Site Gram Stain - Final 10/27/23 09:10 Incision/Surgical Site Wound Culture - Preliminary GNR Poss Pseudomonas sp 10/27/23 09:10 Incision/Surgical Site Anaerobic Culture - Preliminary Checking for anaerobes, further studies to follow. 10/27/23 09:10 Tissue - Back Gram Stain - Final 10/27/23 09:10 Tissue - Back Wound Culture - Final Pseudomonas aeruginosa 10/27/23 09:10 Tissue - Back Anaerobic Culture - Preliminary No growth in 48 hours. 10/23/23 17:05 Blood Culture (Wb) - Right Forearm Blood Culture - Final No growth in 5 days. Rhythm Strip Rhythm Strip: Sinus Rhythm Rate: 74 Ectopy: None Physical Exam Const alert, oriented x3 and no apparent distress Constitutional Narrative: Pleasant middle-age female, obese, mildly fatigued appearing, otherwise sitting up comfortably in bed, conversing normally, in no acute distress. General Appearance: cooperative and comfortable HEENT normocephalic, head/scalp atraumatic, hearing grossly normal bilaterally, nasal mucous membranes and turbinates normal and moist oral mucous membranes Eyes PERRL, EOMs intact bilaterally and conjunctivae normal Neck full ROM Chest inspection of chest normal Resp normal respiratory effort, normal air movement, no use of accessory muscles and clear to auscultation bilaterally Cardio regular rate, regular rhythm, no murmurs and peripheral pulses 2+ throughout GI normal to inspection, nondistended, normoactive bowel sounds, soft to palpation, non-tender and non-distended Back/Spine Back/Spine Narrative: Dressing in place over surgical incision site, appears clean and dry. Mild tenderness to palpation at incision site. Mildly reduced range of motion of low back. Extremity normal to inspection, full ROM and no pedal edema Skin no rashes or lesions noted Neuro no focal motor deficits and no sensory deficits noted Speech: speech normal Psych mental status grossly normal Assessment & Plan Assessment/Plan (1) Infection of spinal cord stimulator: PLAN: Plan Patient is a 53-year-old female who presented to [facility] ED on 10/22 #24 with worsening back pain at site of recent spinal stimulator insertion and fevers. 1. Surgical site infection at site of previously implanted spinal cord stimulator ? Infectious disease following. Patient follows with Dr. Dunlap with pain management. Had spinal cord stimulator placed about 3 weeks prior to this admission. Presented with worsening low back pain, redness at surgical site and fever/chills. Had wound cultures drawn a few days prior to coming in that were found to be positive for Pseudomonas. S/p surgical removal of stimulator on 10/[address] Dunlap. Tolerated procedure without issue. Surgical cultures also grew Pseudomonas. Treated with IV cefepime per ID recs with good improvement. Per ID recs, will treat with IV cefepime for 2 weeks on discharge. 2. Acute on chronic low back pain with mild acute debility ? PT/OT/case management following. Has been treated with IV morphine and p.o. oxycodone as needed with adequate pain control. Discussed with Dr. Dunlap and will plan to discharge on p.o. Percocet either 3-4 times daily as needed. IV morphine discontinued on 10/28, will monitor patient's pain control overnight and if stable tomorrow, will plan for discharge home. Patient with good therapy scores on 10/28, okay for discharge home with no therapy needs. 3. ESRD on HD ? Nephrology following. Patient is on home HD via AV fistula on Thursday through Thursday. Will have HD session tomorrow morning with plan for discharge home after HD, followed by resumption of home schedule post discharge. Chronic medical conditions: ? Obesity: BMI 32 on admit. Complicates hospital course, care and prognosis. ? Type 2 diabetes mellitus with neuropathy: Blood sugars stable while inpatient. Continue home insulin pump. Continue home gabapentin. ? Paroxysmal A-fib: Home Eliquis held for procedure, restarted on 10/28. Continue home propranolol. ? Chronic anemia: Hemoglobin stable at baseline around 9. ? Depression: Stable. Continue home meds. ? GERD: Continue home PPI. ? Tremors: Continue home protocol. ? Hyperlipidemia: Continue home statin. DVT prophylaxis: Eliquis CODE STATUS: Full code, verified Expected disposition: Home, 1 to 2 days Total clinical time spent by myself addressing the patient's medical issues, reviewing all the data, and collaborating with patient's care team: 35 minutes. Charges/Coding Visit Charges Inpatient E&M: 43379 Subs Hosp L2
--- NOTE | 2023-10-29 13:52 | PN.RENAL_ITS ---
Subjective Subjective still with back pain, walked the hallway with drop in oxygen level Objective Data Objective Data Vital Signs: Vital Signs Temp Pulse Resp BP Pulse Ox O2 Del Method O2 Flow Rate 98.0 F 62 18 109/56 L 97 Room Air 2 10/29/23 08:44 10/29/23 08:44 10/29/23 08:44 10/29/23 08:44 10/29/23 08:44 10/29/23 08:44 10/29/23 11:39 Oxygen Flow Rate (L/min) 2 Oxygen Delivery Method Room Air Weight: 91.9 kg Body Mass Index (BMI) 32.5 Intake & Output: Intake and Output for Last 24 Hours 10/27/23 10/28/23 10/29/23 23:59 23:59 23:59 Intake Total 1264.50 / 1414.50 400 / 400 Output Total 1770 / 1770 Balance 1264.50 / 1414.50 -1370 / -1370 Lab / Micro Data 10/28/23 06:41 10/28/23 06:41 Labs: Laboratory Results - last 24 hr 10/28/23 16:39: POC Glucose 233 H 10/28/23 21:07: POC Glucose 197 H 10/29/23 06:58: POC Glucose 146 H 10/29/23 11:46: POC Glucose 209 H Micro: Microbiology 10/27/23 09:10 Implant - Other Gram Stain - Final 10/27/23 09:10 Implant - Other Wound Culture - Preliminary GNR Poss Pseudomonas sp 10/27/23 09:10 Incision/Surgical Site Gram Stain - Final 10/27/23 09:10 Incision/Surgical Site Wound Culture - Preliminary GNR Poss Pseudomonas sp 10/27/23 09:10 Incision/Surgical Site Anaerobic Culture - Preliminary Checking for anaerobes, further studies to follow. 10/27/23 09:10 Tissue - Back Gram Stain - Final 10/27/23 09:10 Tissue - Back Wound Culture - Final Pseudomonas aeruginosa 10/27/23 09:10 Tissue - Back Anaerobic Culture - Preliminary No growth in 48 hours. 10/23/23 17:05 Blood Culture (Wb) - Right Forearm Blood Culture - Final No growth in 5 days. Rhythm Strip Rhythm Strip: Sinus Rhythm Rate: 74 Ectopy: None Physical Exam Const alert, oriented x3 and no apparent distress General Appearance: well developed HEENT normocephalic Back/Spine Back/Spine Narrative: low back pain incision site with erythema, boggy, tender to palpation Skin Wounds: wounds noted Wound Narrative: see able Neuro Sensorium / Orientation: awake and alert Psych cooperative Assessment & Plan Assessment/Plan (1) ESRD (end stage renal disease) on dialysis: PLAN: dialysis tomorrow (2) Hyperkalemia: PLAN: resolved (3) Surgical site infection: PLAN: wound cx with psag s/p spinal stimulator and battery removed 10/26. Ok for PICC right arm for iv antibx therapy x2 weeks per ID (4) Secondary hyperparathyroidism: PLAN: sensipar calcitriol (5) Iron (Fe) deficiency anemia: QUALIFIERS: Iron deficiency anemia type: other iron deficiency Q ualified Code(s): D50.8 - Other iron deficiency anemias PLAN: hgb 9g KURT with dialysis (6) DM type 2 (diabetes mellitus, type 2): (7) Hx of BKA:
--- NOTE | 2023-10-29 14:36 | CASEMGMT ---
Addendum entered by Andie Hodge 10/29/23 17:20: Coordination of [facility] for IV infusion as follows: Jonas check for cost of IV atb/tubing to be completed w/[facility] tomorrow and pt to be notified of cost. Noted next dose of IV cefepime is due @ 2200 this PM. ROSA LUNA spoke w/ pharmacistCy, who states cefepime IV cannot be given prior to dialysis and will need to continue to be given after HD @ home. Pt made aware of same. She states she typically does home HD in the evenings (around 5 PM, and infusions run about 4 hrs). She states it would work well to then do the IV atb via Mid[facility] after home HD is completed. Re: [facility] SOC, pt states her is home on Thursday and so she they can run HD any time on Thursday and could run as early as [phone], so HH could do SOC as early as noon, if needed. Per pharmacistCy, it would actually be preferable to run the IV atb right after dialysis. He also states if IV atb infuses around noon on Thu, it would be okay for next home infusion dose to be late Thursday PM, if pt does home HD in PM on Thursday. Cy aware pt to get HD tomorrow AM while pt in the hospital. He states he will adjust time of next Cefepime to infuse around noon tomorrow. Original Note: ROSA LUNA NOTE: Per Dr Sosa, IV atb's recommended x 2 weeks @ discharge and states Midline to be inserted. Script received for IV Cefepime. ROSA LUNA present in room when Dr Sosa spoke w/pt about options of pt going to SNF vs Home w/[facility] for IV atb administration vs going to OP HD center for HD treatments to receive IV atb's w/treatments. Pt initially chose to go home w/HH, but then upon further discussion w/her daughter, pt voiced concerns that her pain may not be managed well on PO pain medications. She inquired if pain would be more managed @ a SNF w/IV pain medication. She was made aware SNF's do not typically give pain medications via IV and she would be getting PO analgesics @ SNF. She stated if she would decide to go SNF, [facility] would be her 1st choice. She was made aware they do not accept pt's on HD. She states [facility] in [place] would be her next choice. She was made aware [facility], as well as all of the other local SNF's do not do on-site HD, except [facility], so if she goes to any SNF besides [facility], she would need to be transported to [facility] for HD treatments. She states she would not want to do those transfers d/t concern of pain being aggravated. She was also made aware [facility] in [place] may also do on-site HD, but not sure, and CM could look into this further if she is interested. Pt states she does not want to go to [facility] or [facility] and states again she would not want to transport to OP treatment center. Dr Hare has been in to talk w/pt and discussed pain management concerns w/pt and plan is for her to f/u with Dr Krause in a week or two. Pt decided she would like to go home w/C for SN for IV antibiotics. She confirms she has done IV atb's in the past @ home and is comfortable doing them again. She declines wanting therapy w/[facility]. Per Dr Hare, plan is for pt to discharge home tomorrow. [facility] to be initiated on Sat for 1st home atb infusion. Pt states she would be able to do her own HD @ home tomorrow after discharging home. RN JEREMY inquired about run time of HD @ home and would want to ensure she had enough time after discharging home from the hospital to be able to do it @ home. Pt states, As long as I'm home by 5 or 6 PM, I would have no problem doing it at home. Dr Hare aware and states would be okay with this. arielle Vu RN, aware and to notify [facility] HD team that pt will not need HD tomorrow morning. [facility] was her 1st choice and she declined wanting list of other options unless [facility] unable to accept her. Call placed to Zhanna @ [facility] for referral. She states they are not able to accept pt d/t staffing and will not have an opening until next Thursday. Pt made aware. A list of [facility] agencies that was prepared by colin Acevedo assistant real estate manager, provided to pt. Her next preference is [facility], then [facility], then [facility]. colin Acevedo assistant real estate manager made aware and will send referrals via [facility]. Discussed infusion co w/pt as well. Her 1st choice is [facility], stating she has used them in the past, and she declines wanting list of other options. Kristina states she will also send IV infusion referral to [facility] via [facility]. Pt denies having other discharge needs/concerns at this time. Her will be able to pick her up tomorrow to take her home after his 2 PM appt. William BOATENGN RN CM
--- NOTE | 2023-10-29 15:11 | CHAPLAIN ---
Type of Pastoral Visit _x__ Initial Visit ___ Follow-up Visit ___ On-call Visit ___ General Patient Visit ___ Spiritual Assessment ___ Family Conference ___ Bereavement ___ Rapid Response ___ Code Blue ___ Other (describe below) Pastoral Care Referral From _x__ Patient ___ Family ___ Nurse ___ Physician ___ Utility Tech ___ Field Administrative Assistant ___ Other (describe below) Sacrament/Intervention _x__ Active listening ___ Anointing ___ Alevism ___ Bereavement ___ Communion ___ Leticia exploration ___ ___ Life review _x__ Prayer ___ Reconciliation ___ Sacrament of Sick _x__ Supportive presence ___ Wedding ___ Other (describe below) Pastoral Comments patient has visitors in the room and all of them are interactive with conversation with this anglesmith; pt is welcoming and invites prayer for herself; pt states that she is doing okay and that it is nice to have supportive friends and family; pt attends a [employer] but may be visiting another uatsdin soon; pt welcomes prayer support
--- NOTE | 2023-10-29 15:44 | CASEMGMT ---
Addendum entered by Kristina Nation 10/30/23 10:51: [facility] declined. ROSA LUNA updated. Krsitina Nation DC Planning Asst. Addendum entered by Kristina Nation 10/30/23 10:49: [facility] declined. ROSA LUNA updated. Referral sent to [facility]. Kristina Alexander DC Planning Asst. Addendum entered by Kristina Nation 10/29/23 16:06: [facility] declined HH referral. Referral sent to [facility]. Kristina Nation DC Planning Asst. Original Note: Discharge Planning Referral sent via [facility]Port to [facility] and [facility]. Kristina Nation DC Planning Asst.
[2023-10-29 17:13] LABS: Bedside Glucose 189 mg/dL (74-106)
[2023-10-29] MEDS: Cefepime HCl 1 GM in 0.9% Normal Saline (50mL MB+) 50 ML IV (18:18)
[2023-10-29] MEDS: traZODone 100 MG Tablet 150 MG PO (22:54)
[2023-10-29] MEDS: DULoxetine Hcl 60 MG Capsule PO (22:54)
[2023-10-29] MEDS: ROSUVASTATIN CALCIUM 40 MG TABLET PO (22:54)
[2023-10-29] MEDS: APIXABAN 5 MG TABLET PO (23:05)
[2023-10-30 00:30] LABS: Bedside Glucose 207 mg/dL (74-106)
[2023-10-30] MEDS: Gabapentin 800 MG Tablet PO ×2 (05:47→14:35)
[2023-10-30 05:49] VITALS: BP 124/68; PULSE 64; RESP 16; TEMP 36.4; O2SAT 100
[2023-10-30] MEDS: Acetaminophen 325 MG Tablet 650 MG PO (05:54)
[2023-10-30] MEDS: oxyCODONE 5 MG Tablet PO (05:54)
[2023-10-30] MEDS: Insulin Lispro 100 UNIT/ML INSULN.PEN SC ×3 (07:05→16:37)
[2023-10-30 07:40] VITALS: O2SAT 94
[2023-10-30] MEDS: Budesonide 3 MG CAPSULE.EC 9 MG PO (08:08)
[2023-10-30] MEDS: Calcitriol 0.25 MCG Capsule 0.5 MCG PO (08:09)
[2023-10-30] MEDS: Cinacalcet HCl 30 MG Tablet PO (08:09)
[2023-10-30] MEDS: Midodrine HCl 5 MG Tablet 20 MG PO ×2 (08:09→11:22)
[2023-10-30] MEDS: Magnesium Chloride 64 MG Delay Rel.Tablet 128 MG PO (08:09)
[2023-10-30] MEDS: Calcium Acetate 667 MG Capsule 2668 MG PO ×2 (08:10→11:21)
[2023-10-30] MEDS: DULoxetine Hcl 30 MG Capsule PO (08:10)
[2023-10-30] MEDS: Pantoprazole Sodium 40 MG Tablet PO (08:11)
[2023-10-30] MEDS: Propranolol LA 60 MG Capsule PO (08:11)
[2023-10-30] MEDS: APIXABAN 5 MG TABLET PO (08:11)
[2023-10-30] MEDS: Fludrocortisone Acetate 0.1 MG Tablet PO (08:11)
[2023-10-30] MEDS: BRIMONIDINE 0.2% 5ML BOTTLE 1 DRP OPHTHALMIC (08:11)
[2023-10-30] MEDS: Ursodiol 250 MG Tablet PO (08:12)
[2023-10-30 08:58] VITALS: BP 132/71; PULSE 68; RESP 16; TEMP 36.8; O2SAT 100
--- NOTE | 2023-10-30 09:03 | CASEMGMT ---
ROSA LUNA NOTE: Call placed to [facility] and spoke w/Libia re: financial determination. Pt has $0 co-pay and pt has 100 % coverage for supplies/medications. She was made aware plan is for discharge home today w/[facility] tomorrow. William BETTS RN CM
[2023-10-30 10:48] VITALS: O2SAT 87; O2SAT 92; O2SAT 93
[2023-10-30] MEDS: Cefepime HCl 1 GM in 0.9% Normal Saline (50mL MB+) 50 ML IV (11:21)
--- NOTE | 2023-10-30 11:29 | PCM.DC.SUM ---
Providers Date of Admission: 10/23/23 Date of Discharge: 10/30/23 Primary Care Physician: Dr. Johann Jimenez MD Consultations 10/23/23 20:26 Consult: Infectious Disease Routine Consulting Provider: Ariel Sosa Reason for Consult: surgical site infection EMERGENT Consult: No Notified: Yes Date Notified: 10/23/23 Time Notified: 17:29 Method of Notification: Text Consult: Nephrology Routine Consulting Provider: Emily Gandhi Reason for Consult: ESRD, on HD EMERGENT Consult: No Notified: Yes Date Notified: 10/23/23 Time Notified: 19:48 Method of Notification: Text 10/24/23 07:02 Consult: Onc/Wound/health insurance agent Routine Comment: 10/24/23 10:12 Consult: Pain Management Routine Consulting Provider: Johann Dunlap Reason for Consult: Postprocedure infection EMERGENT Consult: No MD Notified: Yes Date Notified: 10/26/23 Time Notified: 08:11 Method of Notification: Answering Service Reason For Visit: SURGICAL SITE INFECTION Diagnosis Discharge Diagnosis (1) Infection of spinal cord stimulator: Status: Acute Code(s): T85.733A - Infection and inflammatory reaction due to implanted electronic neurostimulator of spinal cord, electrode (lead), initial encounter (2) Acute on chronic back pain: Status: Acute Code(s): M54.9 - Dorsalgia, unspecified; G89.29 - Other chronic pain Medications at Discharge Home Medications duloxetine 60 mg capsule,delayed release 60 mg PO QHS depression 11/26/12 insulin regular hum U-500 conc 500 unit/mL subcutaneous soln 2.2 units subcut CONT insulin pump 10/02/15 trazodone 100 mg tablet 150 mg PO QHS sleep 12/27/15 ergocalciferol (vitamin D2) 1,250 mcg (50,000 unit) capsule 50,000 unit PO QWEEK supplement 01/24/16 albuterol sulfate 2.5 mg/3 mL (0.083 %) solution for nebulization 2.5 mg inhalation Q4H PRN PRN Wheezing 06/09/16 gabapentin 800 mg tablet 800 mg PO TID neuropathy 05/19/17 rosuvastatin 10 mg tablet 40 mg PO QHS cholesterol 06/03/17 insulin aspart U-100 100 unit/mL (3 mL) subcutaneous pen See Protocol subcut ACHS diabetes 07/30/18 magnesium oxide 400 mg (241.3 mg magnesium) tablet 400 mg PO DAILYCM supplement 07/30/18 hydroxyzine pamoate 50 mg capsule 50 mg PO TID PRN Anxiety 02/20/20 duloxetine 30 mg capsule,delayed release 30 mg PO DAILY depression 05/09/20 ondansetron 4 mg disintegrating tablet 8 mg PO Q8H PRN PRN Nausea 09/03/21 diphenoxylate-atropine 2.5 mg-0.025 mg tablet (Lomotil) 1 tab PO BID PRN diarrhea #180 tabs 08/04/22 hyoscyamine sulfate 0.125 mg tablet 0.125 mg PO BID-QID PRN abdominal pain #360 tabs 08/04/22 apixaban 5 mg tablet (Eliquis) 5 mg PO BID blood thinner #60 tabs 10/14/22 albuterol sulfate 90 mcg/actuation aerosol inhaler (ProAir HFA) 2 puff inhalation Q4-6H PRN shortness of breath or wheezing 02/26/23 brimonidine 0.2 % eye drops 1 drp ophthalmic (eye) DAILY . 02/26/23 calcitriol 0.5 mcg capsule 0.5 mcg PO BID . 03/26/23 calcium acetate(phosphat bind) 667 mg capsule 2,668 mg PO TID binder 03/26/23 iron sucrose 100 mg iron/5 mL intravenous solution (Venofer) 100 mg .Route .weekly . 03/26/23 epoetin regan-epbx 2,000 unit/mL injection solution (Retacrit) 2,000 unit subcut QWEEK . 05/14/23 fludrocortisone 0.1 mg tablet 0.1 mg PO DAILY . #30 tabs 06/03/23 fenofibrate nanocrystallized 48 mg tablet 48 mg PO DAILY . 08/11/23 ursodiol 300 mg capsule 300 mg PO BID LIVER #180 caps 08/17/23 risankizumab-rzaa 360 mg/2.4 mL (150 mg/mL) subcut wearable injector (Skyrizi) 360 mg (2.4 mL) subcut .COMPLEX . #2.4 mL 08/21/23 budesonide 3 mg capsule,delayed,extended release 9 mg (3 x 3 mg) PO DAILY . #90 ea 08/24/23 cinacalcet 30 mg tablet 30 mg PO DAILY . 10/23/23 midodrine 10 mg tablet 20 mg PO 4XD PRN . 10/23/23 mupirocin 2 % topical ointment 1 applic topical DAILY . 10/23/23 omeprazole 40 mg capsule,delayed release 40 mg PO DAILY GERD 10/23/23 propranolol 60 mg capsule,24 hr,extended release 60 mg PO DAILY . 10/23/23 cefepime 1 gram/50 mL in dextrose 5 % intravenous piggyback 1 g IV DAILY 14 days 10/29/23 oxycodone-acetaminophen 5 mg-325 mg tablet (Percocet) 1 tab PO Q6H PRN pain 5 days #20 tabs 10/30/23 Hospital Course Operations - (Removal of spinal stimulator) Procedures EKG and - (Lumbar spine CT) Summary of Care Provided Minutes Spent on Discharge: 35 Hospital Course: Patient is a 53-year-old female who presented to [facility] ED on 10/23/23 with worsening back pain at site of recent spinal stimulator insertion and fevers. Hospital course as noted below. Patient discharged home with home health care in stable condition on 10/29. 1. Surgical site infection at site of previously implanted spinal cord stimulator ? Infectious disease followed. Patient follows with Dr. Dunlap with pain management. Had spinal cord stimulator placed about 3 weeks prior to this admission. Presented with worsening low back pain, redness at surgical site and fever/chills. Had wound cultures drawn a few days prior to coming in that were found to be positive for Pseudomonas. S/p surgical removal of stimulator on 10/[address] Dunlap. Tolerated procedure without issue. Surgical cultures also grew Pseudomonas. Treated with IV cefepime per ID recs with good improvement. Per ID recs, will treat with IV cefepime for 2 weeks on discharge, script sent. 2. Acute on chronic low back pain with mild acute debility ? PT/OT/case management followed. Was treated with IV morphine and p.o. oxycodone as needed while inpatient with adequate pain control. Discussed with Dr. Dunlap and discharged patient on 5-day course of p.o. Percocet 5-325 mg every 6 hours as needed; if patient uses this up, will call Dr. Dunlap's office for refill. Stable for discharge home with home health care on 10/29. 3. ESRD on HD ? Nephrology followed. Patient is on home HD via AV fistula on Thursday through Thursday. Last HD session on Friday 10/27; unfortunately was not able to have HD done here on Thursday due to staffing issues. BMP on 10/29 stable with no hyperkalemia. Per nephrology, will be okay to complete next HD session on morning of 10/30 and then can resume home Thursday-Thursday schedule after that. 4. Mild hypoxia with exertion ? Patient stable on room air at rest but did have hypoxia with sats less than 88% with exertion. No respiratory symptoms and breathing comfortably on room air at rest during hospitalization. Suspect hypoxia with exertion is more chronic than acute, possibly due to a degree of obesity hypoventilation syndrome. Prescription sent for 2 L nasal cannula with exertion on discharge. Chronic medical conditions: ? Obesity: BMI 32 on admit. Complicated hospital course, care and prognosis. ? Type 2 diabetes mellitus with neuropathy: Blood sugars stable while inpatient. Continue home insulin pump. Continue home gabapentin. ? Paroxysmal A-fib: Home Eliquis held for procedure, restarted on 10/28. Continue home propranolol. ? Chronic anemia: Hemoglobin stable at baseline around 9. ? Depression: Stable. Continue home meds. ? GERD: Continue home PPI. ? Tremors: Continue home propanolol. ? Hyperlipidemia: Continue home statin. Total clinical time spent by myself addressing the patient's medical issues, reviewing all the data, and collaborating with patient's care team: 35 minutes. Physical Exam Const alert, oriented x3 and no apparent distress Constitutional Narrative: Pleasant middle-age female, obese, energy improved, sitting up comfortably in bed, conversing normally, in no acute distress. General Appearance: cooperative and comfortable HEENT normocephalic, head/scalp atraumatic, hearing grossly normal bilaterally, nasal mucous membranes and turbinates normal and moist oral mucous membranes Eyes PERRL, EOMs intact bilaterally and conjunctivae normal Neck full ROM Chest inspection of chest normal Resp normal respiratory effort, normal air movement, no use of accessory muscles and clear to auscultation bilaterally Cardio regular rate, regular rhythm, no murmurs and peripheral pulses 2+ throughout GI normal to inspection, nondistended, normoactive bowel sounds, soft to palpation, non-tender and non-distended Back/Spine Back/Spine Narrative: Dressing in place over surgical incision site, appears clean and dry. Mild tenderness to palpation at incision site. Mildly reduced range of motion of low back. Extremity normal to inspection, full ROM and no pedal edema Skin no rashes or lesions noted Neuro no focal motor deficits and no sensory deficits noted Speech: speech normal Psych mental status grossly normal Weight / BMI Weight Weight: 91.9 kg Body Mass Index (BMI) 32.5 ABG / Lab / Microbiology Data 10/28/23 06:41 10/30/23 10:35 Laboratory: Laboratory Results - last 24 hr 10/29/23 11:46: POC Glucose 209 H 10/29/23 16:39: POC Glucose 189 H 10/29/23 22:58: POC Glucose 207 H Microbiology: Microbiology 10/27/23 09:10 Incision/Surgical Site Gram Stain - Final 10/27/23 09:10 Incision/Surgical Site Wound Culture - Final Pseudomonas fluorescens 10/27/23 09:10 Incision/Surgical Site Anaerobic Culture - Final No anaerobic bacteria isolated. 10/27/23 09:10 Implant - Other Gram Stain - Final 10/27/23 09:10 Implant - Other Wound Culture - Final Pseudomonas fluorescens 10/27/23 09:10 Implant - Other Anaerobic Culture - Preliminary No growth in 48 hours. 10/27/23 09:10 Tissue - Back Gram Stain - Final 10/27/23 09:10 Tissue - Back Wound Culture - Final Pseudomonas aeruginosa 10/27/23 09:10 Tissue - Back Anaerobic Culture - Preliminary No growth in 48 hours. 10/23/23 17:05 Blood Culture (Wb) - Right Forearm Blood Culture - Final No growth in 5 days. Meaningful Use Info Meaningful Use Meaningful Use Diagnoses (Choose all that apply): None applicable Ischemic Stroke Statin Dosing Therapy Reference: STATIN DOSE THERAPY REFERENCE: * Patients > 75 years receive moderate or high dose statin therapy. * Patients 75 years or YOUNGER should receive HIGH intensity statin dose unless contraindicated. You will be required to document reason for non-treatment if statin daily dose does not meet guidelines. HIGH DOSE STATIN THERAPY DAILY Atorvastatin > than or = to 40 mg Rosuvastatin > than or = to 20 mg Amlodipine + Atorvastatin > than or = to 2.5/40 mg Ezetimibe + Simvastatin 10/80 mg Simvastatin 80mg Discharge Plan Admission Admit Date/Time: 10/23/23 17:25 Primary Reason for Your Visit: Infection of spinal stimulator device Attending Provider: Willem Hare Primary Care Provider: Johann Jimenez Consulting Providers: Emily Gandhi; Yolis Holly; Doug Ochoa; Ariel Sosa; Johann Dunlap; Rk Luong Instructions Additional Instructions / Restrictions: Please take Percocet up to 4 times daily as needed for your ongoing back pain. If you run out of this medication, please contact Dr. Dunlap's office for a refill. Continue all other home medications as normal. Discharge Orders/Prescriptions Prescriptions: New cefepime in dextrose 5 % 1 gram/50 mL piggyback 1 g IV DAILY 14 Days Rx Instructions: 1gm iv daily, take after HD sessions on Mon-Fri. Dx: pseudomonas infection. Weekly bmp and cbc. Fax to [phone]. Routine midline care per protocol. oxycodone-acetaminophen [Percocet] 5-325 mg tablet 1 tab PO Q6H PRN (Reason: pain) 5 Days Qty: 20 0RF Continued ondansetron 4 mg tablet,disintegrating 8 mg PO Q8H PRN PRN (Reason: Nausea) brimonidine 0.2 % drops 1 drp ophthalmic (eye) DAILY Patient Comments: INSTILL 1 DROP INTO BOTH EYES TWICE A DAY DIRECTED albuterol sulfate [ProAir HFA] 90 mcg/actuation HFA aerosol inhaler 2 puff inhalation Q4-6H PRN (Reason: shortness of breath or wheezing) calcitriol 0.5 mcg capsule 0.5 mcg PO BID calcium acetate(phosphat bind) 667 mg capsule 2,668 mg PO TID Patient Comments: take 4 caps with meals Venofer 100 mg iron/5 mL solution 100 mg .Route .weekly Rx Instructions: 100 mg WEEKLY; Retacrit 2,000 unit/mL solution 2,000 unit subcut QWEEK duloxetine 60 MG capsule 60 mg PO QHS Patient Comments: DEPRESSION AND PAIN CONTROL insulin regular hum U-500 conc 20 ML solution 2.2 units SC CONT Patient Comments: insulin pump Rx Instructions: changed site today 02/19/20 trazodone 100 MG tablet 150 mg PO QHS Patient Comments: SLEEP ergocalciferol (vitamin D2) 50,000 UNIT capsule 50,000 unit PO QWEEK Patient Comments: supplement albuterol sulfate 2.5 MG/3 ML solution for nebulization 2.5 mg INHALATION Q4H PRN PRN (Reason: Wheezing) Patient Comments: shortness of breath gabapentin 800 MG tablet 800 mg PO TID Patient Comments: nerve pain rosuvastatin 10 mg tablet 40 mg PO QHS magnesium oxide 400 MG tablet 400 mg PO DAILYCM insulin aspart U-100 100 UNITS/ML insulin pen See Protocol [facility] Protocol: 6. Sliding Scale Insulin Custom Condition: mg/dl range Dose/Route: Number of Units Protocol Text: Custom Sliding Scale Patient Comments: if blood sugar is over 200. calculate reading over 200. divide in half and give that many units of insulin. duloxetine 30 mg capsule,delayed release(DR/EC) 30 mg PO DAILY Patient Comments: takes 30mg with 60mg for total daily dose of 90mg hydroxyzine pamoate 50 MG capsule 50 mg PO TID PRN (Reason: Anxiety) cinacalcet 30 mg tablet 30 mg PO DAILY mupirocin 2 % ointment 1 applic topical DAILY omeprazole 40 mg capsule,delayed release(DR/EC) 40 mg PO DAILY propranolol 60 mg capsule,extended release 24 hr 60 mg PO DAILY midodrine 10 mg tablet 20 mg PO 4XD PRN (Reason: .) Rx Instructions: two tablets up to qid fenofibrate nanocrystallized 48 mg tablet 48 mg PO DAILY diphenoxylate-atropine [Lomotil] 2.5-0.025 mg tablet 1 tab PO BID PRN (Reason: diarrhea) Qty: 180 3RF hyoscyamine sulfate 0.125 mg tablet 0.125 mg PO BID-QID PRN (Reason: abdominal pain) Qty: 360 3RF Eliquis 5 mg tablet 5 mg PO BID Qty: 60 11RF Patient Comments: dr gillespie told pt to hold as of 10/21 fludrocortisone 0.1 mg tablet 0.1 mg PO DAILY Qty: 30 3RF ursodiol 300 mg capsule 300 mg PO BID Qty: 180 3RF Skyrizi 360 mg/2.4 mL (150 mg/mL) wearable injector 360 mg subcut .COMPLEX Qty: 2.4 6RF Rx Instructions: 360 mg subcutaneously every 8 weeks; budesonide 3 mg capsule,delayed,extend.release 9 mg PO DAILY Qty: 90 1RF Referrals / Follow Up: Johann Jimenez MD [Primary Care Provider] - Disposition Disposition (needs filled in before D/C Order can be placed): Home, Self Care Charges/Coding Visit Charges Inpatient E&M: 87464 Disch Hosp >30min
[2023-10-30 11:35] LABS: Anion Gap 11 (5-15); BUN 68 mg/dL (7-18); BUN/Creat Ratio 7.1 RATIO (10-20); Calcium,Total 11.5 mg/dL (8.5-10.1); Chloride 100 mmol/L (98-107); Creatinine, Serum 9.58 mg/dL (0.55-1.02); EST Glomerular Filtration Rate 5 mL/min (>60); Est Glom Filt Rate - Afr Amer 6 mL/min (>60); Estimated Creatinine Clearance 7.84 ml/min; Glucose 264 mg/dL (74-106); Potassium 5.1 mmol/L (3.5-5.1); Sodium Level 135 mmol/L (136-145)
--- NOTE | 2023-10-30 11:39 | CASEMGMT ---
Addendum entered by Kristina Nation 10/30/23 13:47: [facility] is now unable to accept. [facility] and [facility] declined. left for [facility]. Kristina Nation DC Planning Asst. Addendum entered by Kristina Nation 10/30/23 12:19: [facility] have declined. Kristina Nation DC Planning Asst. Addendum entered by Kristina Nation 10/30/23 12:00: [facility] has accepted. [facility], [facility], and [facility] have declined. Kristina Nation DC Planning Asst. Original Note: Discharge Planning HH referral sent to [facility], [facility], [facility], [facility], [facility], [facility], [facility], and . Kristina Nation DC Planning Asst.
[2023-10-30 12:15] LABS: Bedside Glucose 237 mg/dL (74-106)
--- NOTE | 2023-10-30 12:40 | PCM.HOSP.N ---
Hospitalist Note I have reviewed the oxygen testing, and this patient qualifies for the home equipment and portability. The patient is mobile in the home and the community.
[2023-10-30] MEDS: Ondansetron 4 MG/2 ML Vial IV (12:54)
--- NOTE | 2023-10-30 13:50 | CASEMGMT ---
Discharge Planning HH referral sent to Cecille Diaz and Deanna Cao. Kristina Nation DC Planning Asst.
[2023-10-30 14:58] VITALS: BP 129/73; PULSE 64; RESP 16; TEMP 36.9; O2SAT 100
--- NOTE | 2023-10-30 16:45 | CASEMGMT ---
ROSA LUAN NOTE: HD treatment unable to be completed today @ [facility]. Dr Hare aware and states he has spoken w/Dr Emily Gandhi, nephrology re: her HD treatments and HHC/atb's. Per Dr Hare, Dr Gandhi is okay with pt discharging home today and doing home HD treatment first thing tomorrow morning before IV atb infusion. Pt made aware. Per Kristina, there are no accepting [facility] agencies. ROSA LUNA did reach out to [facility] to inquire if they have had any cancellations, but they have not, and they are not able to accept pt. ROSA LUNA has spoken w/Stacy @ [facility]. She was made aware Midline insertion documentation sent to [facility] via [employer]. She was also made aware unable to locate any [facility] agencies that can accept pt. Per Stacy, [facility] unable to come to [facility] to complete bedside/hospital education today, but they can do virtual training/education w/pt and tomorrow for initial dose of IV infusion @ home. Pt aware no [facility] agencies able to accept her. Questions answered. She was made aware of option for [facility] to do virtual training tomorrow for 1st dose of IV infusion. She states her would be willing to do virtual training along w/her (pt) w/[facility], stating they have done them in the past and have no concerns w/doing them again. Stacy @ [facility] aware pt and would like to do virtual training/education w/[facility] tomorrow @ home. She is aware pt will do her home HD treatment tomorrow morning @ 8 AM, which should be completed around noon. Pt will need 1st dose of home atb infusion after HD completed. She states they will need pt's e-mail. ROSA LUAN confirmed e-mail on her face sheet as being her current e-mail and Stacy made aware. Stacy aware pt is discharging home today. She will reach out to pt and to arrange for delivery of antibiotics and supplies tonight. Pt states she would be able to go to [facility] for Midline dressing changes and lab work. Dr Sosa made aware. He states pt to have labs drawn next 11/04. He states pt does not need labs drawn the following week and midline to be removed after last dose of IV atb. Order received and faxed to [facility]. Confirmation received via fax that it went through successfully. Appts @ [facility] arranged as follows: These were added to pt's discharge plan. 11/04 @ 2:30 PM: Midline dressing change/care and labs to be drawn. 11/12 @ 1:30 PM: Midline to be removed. ROSA LUNA spoke w/both pt and , who is in room visiting w/patient. Reviewed the following plan w/them: IV atb's ordered for daily x 14 days. IV atb infusions cannot be done prior to HD, as it will remove the atb from her system. On the days pt does home HD, atb infusion to be administered afterwards. Pt to discharge home today. She is not to do home HD tonight. Pt to do home HD tomorrow morning @ 8 AM. [facility] will be contacting them to arrange virtual training/educational visit for 1st dose home infusion after HD completed tomorrow. Suggested they ask [facility] tomorrow if they will be available for any trouble-shooting issues. Made aware, if [facility] unavailable for trouble-shooting, they may need to come to ED for concerns/issues w/Midline, such as unable to flush it. Also instructed them to contact Dr Sosa for any questions/concerns re: home atb infusions. Reviewed above appts @ Infusion center as stated above. Pt and voice understanding to all of the above. Questions answered. They deny having further questions/needs/concerns. Pt made aware [facility] pharmacy does not carry the [employer] CGM's. She is aware [facility] does carry them, and other pharmacy's may as well. She was made aware if she wishes to have the script transferred to another pharmacy to ask them to call [facility] to have script transferred. She voices understanding. Home O2 testing has been completed. Pt requiring 2 L/M w/exertion. Current home O2 orders are for 2 L/M @ HS and pt gets her O2 from [facility]. Pt states she does use it @ times @ home as needed during the day and states she does have portable O2 tank her family can bring in for her to go home on. ROSA LUNA placed call to [facility] to verify home O2 orders. Currently they only have 2 L/M @ HS on file. Updated O2 script for O2 @ 2 l/m w/exertion faxed to [facility] along w/Home O2 ambulatory testing documentation and [id number] documentation from Dr Hare. They state they will reach out to pt to see if she needs any additional portable tanks/supplies. Pt made aware. She states she currently has plenty of tanks, but is aware to contact [facility] if she has any needs. Noted later that faxes to [facility] did not go through. Call placed to [facility] to notify them of same. O2 script, Home O2 testing, and F2F all sent to [facility] via [employer]. William BOATENGN RN CM
[2023-10-30 17:03] LABS: Bedside Glucose 200 mg/dL (74-106)
[2023-10-31 07:18] LABS: Bedside Glucose 206 mg/dL (74-106)
[2023-10-31 07:18] LABS: Bedside Glucose 232 mg/dL (74-106)
== END 2023-10-30 16:51 | disposition home or self-care (01) | DRG 28 ==
LOC: ED 17:53 → MS3 18:02
PROVIDERS: Anesthesiology; Anesthesiology Pain Medicine; Internal Medicine; Internal Medicine Nephrology; Admitting Provider Student in an Organized Health Care Education/Training Program; Emergency Provider Emergency Medicine; PCP Family Medicine; Visit Provider Hospitalist
PROC: 00PV0MZ Removal of Neurostimulator Lead from Spinal Cord, Open Approach (ICD-10-PCS; CPT 63650; principal; 2023-10-27 07:15)
DX: T85.733A Infection and inflammatory reaction due to implanted electronic neurostimulator of spinal cord, electrode (lead), initial encounter (principal); N18.6 End stage renal disease; I12.0 Hypertensive chronic kidney disease with stage 5 chronic kidney disease or end stage renal disease; K50.90 Crohn's disease, unspecified, without complications; N25.81 Secondary hyperparathyroidism of renal origin; E10.42 Type 1 diabetes mellitus with diabetic polyneuropathy; D63.1 Anemia in chronic kidney disease; M32.9 Systemic lupus erythematosus, unspecified; J44.9 Chronic obstructive pulmonary disease, unspecified; K75.81 Nonalcoholic steatohepatitis (NASH); F32.A Depression, unspecified; Z68.32 Body mass index [BMI] 32.0-32.9, adult; I48.0 Paroxysmal atrial fibrillation; Z89.519 Acquired absence of unspecified leg below knee; E10.22 Type 1 diabetes mellitus with diabetic chronic kidney disease; E87.5 Hyperkalemia; Z99.2 Dependence on renal dialysis; Z79.4 Long term (current) use of insulin; E78.5 Hyperlipidemia, unspecified; M54.50 Low back pain, unspecified; D50.8 Other iron deficiency anemias; F32.9 Major depressive disorder, single episode, unspecified; K21.9 Gastro-esophageal reflux disease without esophagitis; R25.1 Tremor, unspecified; Z79.01 Long term (current) use of anticoagulants; B96.5 Pseudomonas (aeruginosa) (mallei) (pseudomallei) as the cause of diseases classified elsewhere; G89.29 Other chronic pain; Z79.51 Long term (current) use of inhaled steroids; Z79.891 Long term (current) use of opiate analgesic; Z66 Do not resuscitate; Z79.52 Long term (current) use of systemic steroids; Z86.16 Personal history of COVID-19; Z96.41 Presence of insulin pump (external) (internal); R53.81 Other malaise; E66.9 Obesity, unspecified; R09.02 Hypoxemia
CPT/HCPCS: 36415; 72132; 80048; 80053; 80069; 82962; 83036; 83735; 84100; 85025; 85610; 85652; 85730; 86140; 87015; 87040; 87070; 87075; 87077; 87102; 87116; 87176; 87184; 87186; 87205; 87206; 90937; 93005; 96374; 96375; 96376; 97162; 97166; 97530; 97535; 97802; 99282; 99285; J7030; J7040; J7050; J7120; Q9967; A4216; G0257; J2405; Q5106

== ENCOUNTER 2023-11-05 14:27 | Outpatient (CLI) | payer MEDICARE, SELFPAY ==
[2023-11-05 15:16] LABS: Hematocrit 26.1 % (37-47); Hemoglobin 8.5 g/dL (12.0-15.0); Mean Corp Hgb Conc 32.6 g/dL (32-36); Mean Corpuscular Hgb 32.9 pg (27.0-32.0); Mean Corpuscular Volume 101.2 fL (81-99); POSITIVE COUNT YES; Platelet Count 99 K/mm3 (150-450); RBC Distribution Width SD 54.1 fl (35.1-43.9); Red Blood Count 2.58 M/mm3 (4.2-5.4); White Blood Count 7.9 K/mm3 (4.4-11.0)
[2023-11-05 15:23] LABS: Scan Indicated on CBC? Y/N YES- FLAGS NOTED
[2023-11-05 15:30] LABS: Anion Gap 13 (5-15); BUN 49 mg/dL (7-18); BUN/Creat Ratio 6.7 RATIO (10-20); Calcium,Total 9.7 mg/dL (8.5-10.1); Chloride 100 mmol/L (98-107); Creatinine, Serum 7.29 mg/dL (0.55-1.02); EST Glomerular Filtration Rate 6 mL/min (>60); Est Glom Filt Rate - Afr Amer 8 mL/min (>60); Glucose 177 mg/dL (74-106); Potassium 4.1 mmol/L (3.5-5.1); Sodium Level 139 mmol/L (136-145)
[2023-11-05 16:10] LABS: Differential Comment SCANNED
== END 2023-11-05 23:59 | disposition home or self-care (01) ==
LOC: MEDOUTP 14:28
PROVIDERS: PCP Family Medicine; Referring Provider Hospitalist; Visit Provider Hospitalist
DX: T81.49XA Infection following a procedure, other surgical site, initial encounter (principal)
CPT/HCPCS: 36415; 80048; 85027; A4216

== ENCOUNTER 2023-11-13 13:59 | Outpatient (CLI) | payer MEDICARE, SELFPAY ==
[2023-11-13 14:37] VITALS: BP 123/53; PULSE 84; RESP 16; TEMP 35.6; O2SAT 98; BMI 33.5
== END 2023-11-13 23:59 | disposition home or self-care (01) ==
LOC: MEDOUTP 13:59
PROVIDERS: PCP Family Medicine; Referring Provider Internal Medicine Infectious Disease; Visit Provider Internal Medicine Infectious Disease
DX: T81.40XA Infection following a procedure, unspecified, initial encounter (principal)

== ENCOUNTER → 2023-11-24 | Outpatient (CLI) | payer MEDICARE, SELFPAY ==
--- NOTE | 2023-11-24 13:30 | CT_ITS ---
INDICATION: INFECTION OF SPINAL CORD STIMULATOR EXAMINATION: CT Spine Lumbar W/ Contrast Injection TECHNIQUE: Helically acquired images were obtained of the lumbar spine. 2D reformats were reviewed. A radiation dose optimization technique was used for this scan. The protocol utilizes one or more of the following dose reduction techniques: automated exposure control, adjustment of mA and/or kV according to patient size,and/or use of iterative reconstruction technique. IV Contrast dosage and agent: 100 cc Isovue 300. RADIATION DOSAGE (If Supplied By Facility): CTDIvol = ( 37.12 ) mGy, DLP = ( 1319.87 ) mGycm COMPARISON: FINDINGS: VERTEBRAE: No fracture or traumatic subluxation of the thoracic or lumbar spine. No discrete lytic or blastic abnormality observed. Normal alignment. DISCS and SPINAL CANAL: Disc heights are preserved. Mild annular bulge at L3-4 and L4-5.. Subcutaneous density is noted posteriorly between L2-S1 may be related to subcutaneous edema. No adrenal collection is noted. No subcutaneous emphysema. VISUALIZED ABDOMEN: Visualized abdominal aorta is not dilated. There is no retroperitoneal adenopathy. CT/Spine Lumbar WITH Contrast IMPRESSION: Mild subcutaneous posteriorly between L2-S1. No drainable collection. No subcutaneous emphysema. Electronically Signed: Marc Dueñas DO at 16:49 EDT Reading Location ID and State: [facility] / [place] Tel [phone], Service support ,
== END | disposition home or self-care (01) ==
LOC: CT 13:27
PROVIDERS: PCP Family Medicine; Referring Provider Internal Medicine Infectious Disease; Visit Provider Internal Medicine Infectious Disease
DX: T85.733A Infection and inflammatory reaction due to implanted electronic neurostimulator of spinal cord, electrode (lead), initial encounter (principal)
CPT/HCPCS: 72132; Q9967

== ENCOUNTER 2024-01-11 09:56 | Day surgery (SDC) | payer MEDICARE, SELFPAY ==
[2024-01-11 09:59] VITALS: BMI 34.0
--- NOTE | 2024-01-11 11:49 | HP.PCM_ITS ---
HPI - General HPI Narrative FORD HESTER, is a 53 F who presents with left wrist rad-ceph fistula malfunction. Multiple prior balloon angioplasty, last 11/09. FOR[facility]LY [facility] Medical History Iron (Fe) deficiency anemia Crohn's disease Depression Asthma Atrial fibrillation Migraines Stroke/cerebrovascular accident ESRD (end stage renal disease) on dialysis Lung nodule seen on imaging study Blindness Cataract (lens) fragments in eye following cataract surgery, bilateral Acute bronchitis, unspecified Atrial fibrillation, controlled Essential hypertension Uses prosthesis Seasonal allergies Wears glasses Anxiety Insulin dependent diabetes mellitus Uses wheelchair Arthritis DVT (deep venous thrombosis) History of Holter monitoring High cholesterol TIA (transient ischemic attack) Seizures Dietary restriction History of hiatal hernia Non-smoker CPAP (continuous positive airway pressure) dependence Sleep apnea Shortness of breath on exertion Hypertension History of echocardiogram History of stress test Cardiology follow-up encounter Positive QuantiFERON-TB Gold test Hx of pancreatitis Hepatosplenomegaly Enteritis Nausea and vomiting Alternating constipation and diarrhea Diarrhea HINTON (nonalcoholic steatohepatitis) CKD (chronic kidney disease) Viral gastroenteritis Acute right flank pain Anemia in chronic kidney disease (CKD) COVID-19 virus detected Pneumonia due to COVID-19 virus Below-knee amputation of left lower extremity Osteomyelitis of left foot History of stroke COPD (chronic obstructive pulmonary disease) IBS (irritable bowel syndrome) GERD (gastroesophageal reflux disease) Diastolic dysfunction Cellulitis of left foot Acute kidney injury Right middle lobe pneumonia Hypomagnesemia Osteomyelitis of right foot Peripheral neuropathy Depression Infection of right great toe due to methicillin resistant Staphylococcus aureus (MRSA) Cellulitis of right foot History of MRSA infection Diabetes mellitus Asthma Pulmonary hypertension SLE (systemic lupus erythematosus) Home Medications ?Medication ?Instructions ?Recorded ?Last Taken ?Type duloxetine 60 mg capsule,delayed 60 mg PO QHS depression 11/26/12 10/22/23 History release insulin regular hum U-500 conc 500 2.2 units subcut CONT insulin pump 10/02/15 10/23/23 History unit/mL subcutaneous soln trazodone 100 mg tablet 150 mg PO QHS sleep 12/27/15 10/22/23 History ergocalciferol (vitamin D2) 1,250 50,000 unit PO QWEEK supplement 01/24/16 10/16/23 History mcg (50,000 unit) capsule albuterol sulfate 2.5 mg/3 mL 2.5 mg inhalation Q4H PRN PRN 06/09/16 09/01/16 History (0.083 %) solution for nebulization Wheezing gabapentin 800 mg tablet 800 mg PO TID neuropathy 05/19/17 10/22/23 History rosuvastatin 10 mg tablet 40 mg PO QHS cholesterol 06/03/17 10/22/23 History insulin aspart U-100 100 unit/mL See Protocol subcut ACHS diabetes 07/30/18 10/22/23 History (3 mL) subcutaneous pen magnesium oxide 400 mg (241.3 mg 400 mg PO DAILYCM supplement 07/30/18 10/22/23 History magnesium) tablet hydroxyzine pamoate 50 mg capsule 50 mg PO TID PRN Anxiety 02/20/20 10/22/23 History duloxetine 30 mg capsule,delayed 30 mg PO DAILY depression 05/09/20 10/22/23 History release ondansetron 4 mg disintegrating 8 mg PO Q8H PRN PRN Nausea 09/03/21 01/11/24 History tablet diphenoxylate-atropine 2.5 1 tab PO BID PRN diarrhea #180 tabs 08/04/22 10/22/23 Rx mg-0.025 mg tablet (Lomotil) hyoscyamine sulfate 0.125 mg tablet 0.125 mg PO BID-QID PRN abdominal 08/04/22 Unknown Rx pain #360 tabs albuterol sulfate 90 mcg/actuation 2 puff inhalation Q4-6H PRN 02/26/23 Unknown History aerosol inhaler (ProAir HFA) shortness of breath or wheezing brimonidine 0.2 % eye drops 1 drp ophthalmic (eye) DAILY . 02/26/23 10/22/23 History calcitriol 0.5 mcg capsule 0.5 mcg PO BID . 03/26/23 10/22/23 History calcium acetate(phosphat bind) 667 2,668 mg PO TID binder 03/26/23 10/22/23 History mg capsule iron sucrose 100 mg iron/5 mL 100 mg .Route .weekly . 03/26/23 Unknown History intravenous solution (Venofer) epoetin regan-epbx 2,000 unit/mL 2,000 unit subcut QWEEK . 05/14/23 10/19/23 History injection solution (Retacrit) fenofibrate nanocrystallized 48 mg 48 mg PO DAILY . 08/11/23 10/22/23 History tablet ursodiol 300 mg capsule 300 mg PO BID LIVER #180 caps 08/17/23 10/22/23 Rx risankizumab-rzaa 360 mg/2.4 mL 360 mg (2.4 mL) subcut .COMPLEX . 08/21/23 08/28/23 Rx (150 mg/mL) subcut wearable #2.4 mL injector (Radha) cinacalcet 30 mg tablet 30 mg PO DAILY . 10/23/23 10/22/23 History midodrine 10 mg tablet 20 mg PO 4XD PRN . 10/23/23 01/11/24 History mupirocin 2 % topical ointment 1 applic topical DAILY . 10/23/23 10/22/23 History omeprazole 40 mg capsule,delayed 40 mg PO DAILY GERD 10/23/23 10/22/23 History release propranolol 60 mg capsule,24 60 mg PO DAILY . 10/23/23 10/22/23 History hr,extended release cefepime 1 gram/50 mL in dextrose 1 g IV DAILY 14 days 10/29/23 Unknown Rx 5 % intravenous piggyback oxycodone-acetaminophen 5 mg-325 1 tab PO Q6H PRN pain 5 days #20 10/30/23 Unknown Rx mg tablet (Percocet) tabs apixaban 5 mg tablet (Eliquis) 5 mg PO BID #60 TABLETS 12/14/23 Unknown Rx budesonide 3 mg 9 mg (3 x 3 mg) PO DAILY #90 caps 12/18/23 Unknown Rx capsule,delayed,extended release fludrocortisone 0.1 mg tablet 0.1 mg PO DAILY #30 TABLETS 12/18/23 Unknown Rx Allergy/AdvReac Type Severity Reaction Status Date / Time atorvastatin (From Lipitor) AdvReac Severe Vomiting Verified 11/13/23 14:11 oxycodone HCl (From Percocet) AdvReac Severe Vomiting Verified 11/13/23 14:11 Family History Mother Hypertension Cancer skin Grandmother Hypertension Diabetes Brother Cancer NHL Arthritis Brother Arthritis Surgical History (Updated 11/07/23 @ 00:04 by Background Daemon) Hx of BKA Status post insertion of spinal cord stimulator S/P arteriovenous (AV) fistula repair S/P arteriovenous (AV) fistula creation History of lithotripsy History of below-knee amputation of left lower extremity History of eye surgery History of temporal artery biopsy History of lymph node biopsy History of liver biopsy Partial nontraumatic amputation of right foot History of amputation of hallux History of carpal tunnel surgery History of hernia repair History of cholecystectomy History of hysterectomy History of tubal ligation Status post transmetatarsal amputation of right foot Social History Smoking Status: Never smoker second hand exposure: Yes alcohol intake: current details: rare substance use type: does not use ROS Constitutional Constitutional: Denies chills, fever(s), frequent falls, lethargy or weakness Eyes Eyes: Denies blind spots, change in vision or loss of vision ENT HEENT: Denies bleeding gums, hoarseness or sore throat Cardiovascular Cardiovascular: Denies abdominal pain, bluish discoloration of hand/feet, chest pain with activity, claudication, cold extremities, cyanosis, dyspnea on exertion, erythema on extremities, irregular heart rhythm, leg edema, leg ulcers, numbness in extremities or weakness in extremities Respiratory/Chest Respiratory/Chest: Denies cough, excessive phlegm production, shortness of breath at rest, shortness of breath with exertion or wheezing Gastrointestinal Gastrointestinal: Denies anorexia, change in stool character, constipation, diarrhea, melena or rectal bleeding Genitourinary Genitourinary: Denies dysuria or hematuria Musculoskeletal Musculoskeletal: Denies abnormal gait Integumentary Integumentary: Reports other Details: ; Denies erythema, non-healing lesions or wounds Neurologic Neurologic: Denies abnormal speech, focal weakness, headache(s), loss of vision, numbness, paresthesias or sensory deficit Hematologic/Lymphatic Hematologic/Lymphatic: Denies easy bleeding, easy bruising or lymphadenopathy Vital Signs Vital Signs Vital Signs: Weight Weight: 211 lb Body Mass Index (BMI) 34.0 Physical Exam Const alert, oriented x3, no apparent distress and healthy appearing General Appearance: cooperative; Negative for combative or lethargic Orientation / Consciousness: awake Exam Limitations: no limitations HEENT Head and Scalp: normocephalic and atraumatic Eyes EOMs intact bilaterally General Eye: normal appearance of both eyes Neck full ROM and no lymphadenopathy General: trachea midline; Negative for lymphadenopathy Resp normal respiratory effort and no use of accessory muscles Effort and Inspection: Negative for labored, stridor or audible wheezes Cardio regular rate and regular rhythm Back/Spine Cervical Spine: cervical ROM normal Extremity full ROM, normal capillary refill and no clubbing, cyanosis or edema Skin no rashes or lesions noted and no wounds Neuro oriented x3, CN's II-XII intact bilaterally, no focal motor deficits and no sensory deficits noted Psych thought process normal, cooperative, affect normal, speech normal and activity/motor behavior normal Assessment & Plan Assessment/Plan (1) Dialysis AV fistula malfunction: QUALIFIERS: Encounter type: initial encounter Qualified Code(s): T82.590A - Other mechanical complication of surgically created arteriovenous fistula, initial encounter PLAN: -fistulagram
--- NOTE | 2024-01-11 13:12 | OP.PCM_ITS ---
Operative Report (Standard) Operative Information Surgery/Procedure Performed: left arm fistulagram with angioplasty Surgeon: Mikey Cavanaugh Date of Procedure: 01/11/24 Procedure Start Time: 12:00 Procedure Stop Time: 13:00 Pre-Operative Diagnosis: fistula stenosis Post-Operative Diagnosis: same Select all DRAINS/GRAFTS/IMPLANTS that apply: None Type of Anesthesia: Local and Sedation,Conscious Estimated Blood Loss: 4 Specimen collected: No Description of surgery: HPI: Patient is a 53-year-old female with a prior left radiocephalic AV fistula double prior percutaneous interventions who has had recurrence of her difficulty completing her dialysis runs. Previously she had recurrent stenosis just beyond the anastomosis and it is suspected that this is the source of her current fistula dysfunction. She has significantly diminished thrill within the fistula. She presents now for fistulogram with possible intervention. Description of procedure: Upon obtaining form consent and verification correct patient procedure site patient was taken to the Electronic Train Control Technician where she was positioned prepped and draped in usual sterile fashion. Time was performed conscious sedation administered Versed and fentanyl. The fistula was assessed with ultrasound and accessed in the mid forearm with a micropuncture needle wire under ultrasound guidance. This was exchanged for the 6 Armenian fistula sheath the patient was heparinized allowed to circulate for 3 minutes. Through the fistula sheath hand-injection fistulogram was performed which confirmed recurrence of her high-grade stenosis in the proximal 3 cm of the fistula starting at the anastomosis. This also revealed stable anatomy of her fistula outflow which was predominantly through the superficial system in the upper arm. A command 18 wire was then advanced through the 6 Armenian sheath and utilized to navigate across the area of the stenosis and into the radial artery towards the wrist. A KMP catheter was advanced over the wire and the wire withdrawn. Hand- injection through the catheter revealed satisfactory position within the radial artery with no extravasation or dissection. A [place] wire was then advanced to the catheter and the catheter withdrawn. A Makeblock angio sculpt balloon 3 mm x 40 was advanced over the wire positioned complete coverage of the lesion. This was then inflated to nominal for 3 minutes deflated and repositioned, and reinflated for an additional 3 minutes. The balloon was then deflated withdrawn 4 mm x 40 saba balloon was advanced centered on the lesion and inflated to nominal for 3 minutes then deflated withdrawn. Repeat angiography through the sheath confirmed satisfactory lesion response lumen caliber and there is now an fistula in the mid forearm. Next a [place] [employer] [place] 4 mm x 40 drug- coated angioplasty balloon was advanced in position inflated for 3 minutes at the lesion and then deflated and withdrawn. Completion imaging revealed satisfactory response with no extravasation or dissection and improved contrast egress through the fistula. Completion imaging of the upper arm and central venous system was then performed with serial injections through the 6 Armenian sheath. This revealed no change in her superficial venous outflow with ultimate emptying of the arm through the axillary vein with patent central venous system through to the vena cava. A nylon suture was then placed at the access site and the sheath withdrawn followed by 5 minutes minute pressure with satisfactory stasis noted. The patient was then taken the recovery area with anticipated discharge to home. 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
== END 2024-01-11 14:00 | disposition home or self-care (01) ==
PROVIDERS: PCP Family Medicine; Referring Provider Surgery Trauma Surgery; Visit Provider Surgery Trauma Surgery
DX: T82.858A Stenosis of other vascular prosthetic devices, implants and grafts, initial encounter (principal); I12.0 Hypertensive chronic kidney disease with stage 5 chronic kidney disease or end stage renal disease; N18.6 End stage renal disease; Z89.512 Acquired absence of left leg below knee; Z89.431 Acquired absence of right foot; J44.9 Chronic obstructive pulmonary disease, unspecified; E11.22 Type 2 diabetes mellitus with diabetic chronic kidney disease; E11.42 Type 2 diabetes mellitus with diabetic polyneuropathy; Z79.4 Long term (current) use of insulin; X58.XXXA Exposure to other specified factors, initial encounter; E78.00 Pure hypercholesterolemia, unspecified; Z96.41 Presence of insulin pump (external) (internal); Z99.2 Dependence on renal dialysis; Z79.01 Long term (current) use of anticoagulants; Z79.899 Other long term (current) drug therapy; Z86.16 Personal history of COVID-19
CPT/HCPCS: 36902; 76937; 99152; 99153; C1725; C1769; C2623; J7050; Q9967

== ENCOUNTER → 2024-02-16 | Outpatient (CLI) | payer MEDICARE, SELFPAY ==
--- NOTE | 2024-02-16 09:35 | US_ITS ---
STUDY: ABDOMINAL ULTRASOUND - RIGHT UPPER QUADRANT; ELASTOGRAPHY REASON FOR VISIT: Female, 53 years old. Fatty infiltration of the liver. TECHNIQUE: Ultrasound evaluation of the right upper quadrant was performed with real-time and static aldrich-scale imaging. Point quantification shear wave elastography was performed ([employer]). TECHNICAL QUALITY: Adequate. COMPARISON: Comparison is made with prior study June 16, 2022. FINDINGS: Liver: The liver is enlarged and measures 25 cm. There is increased echogenicity consistent with fatty infiltration. The bile ducts are within normal limits. There is hepatic color flow. The direction of portal flow is hepatopetal. There is no demonstrated mass lesion. Median liver stiffness measured 10.3 kPa. Gallbladder: The patient is status post cholecystectomy. Common Bile Duct (C.B.D.): The common bile duct measures 6 mm. Pancreas: There is normal echogenicity of the visualized pancreas. There is no demonstrated pancreatic mass or cyst. Right Kidney: Normal size of the right kidney. The right kidney measures 14.6 cm x 5.7 cm x 7.7 cm. Increased echotexture of the right renal cortex. Medical renal disease should be ruled out. The right cortex measures 1.8 cm. There is no demonstrated renal mass or cyst. There is no right hydronephrosis. US/ABD Limited w/ Elastography IMPRESSION: 1. Liver stiffness measures 10.3 kPa compatible with F2-F3 (Mild to moderate liver fibrosis) Metavir score. 2. Hepatomegaly. Diffuse fatty infiltration of the liver. Electronically Signed: Naun Bethea MD at 8:57 EST ,
== END | disposition home or self-care (01) ==
LOC: US 09:34
PROVIDERS: PCP Family Medicine; Referring Provider Student in an Organized Health Care Education/Training Program; Visit Provider Student in an Organized Health Care Education/Training Program
DX: K76.0 Fatty (change of) liver, not elsewhere classified (principal)
CPT/HCPCS: 76705; 76981

== ENCOUNTER → 2024-03-09 | Outpatient (CLI) | payer MEDICARE, SELFPAY ==
[2024-03-09] VITALS (13 sets, daily range): BP systolic 69–124; BP diastolic 41–60; PULSE 98–108; RESP 14–18; TEMP 36.2; O2SAT 94–100; BMI 33.5
--- NOTE | 2024-03-09 | LIVB_PTH ---
PATIENT: FORD HESTER LOC: CT U#:[id number] AGE/SX: 53/F ROOM: RE03/09/[address]: KEANU Bryan : 1970 BED: DIS: 03/09/2024 SPEC #: [id number] RECD: 03/09/24 09:43 STATUS: HEATHER REKael #: [id number] LOLITA: 03/09/24 00:[address]: Tanya Barrett DEPT: SURGICAL PATHOLOGY RECD BY: Delia Villarreal ENTERED: 03/09/24 10:28 SP TYPE: LIVER BX OT DR: MD Thais Almanza, AGRICULTURAL ENGINEERING TECH[employer]ICIANS-C Tissues: Liver, NOS Procedures: PAS with Diastase (control) Trichrome (control) Special Stain Group I PAS Stain (control) Surgery Specimen Level V Retic (control) Iron Stain (control) HEADER OPERATION: CT guided liver biopsy PRE-OP DIAGNOSIS: Fatty liver TISSUE SUBMITTED: 18 gauge x 4 cores MICROSCOPIC DIAGNOSIS Liver, CT guided core biopsy: Consistent with cirrhosis. Macro- and microvesicular steatosis. See microscopic description and comment. 03/10/2024 COMMENT Correlation with clinical, radiologic, laboratory findings and appropriate follow up are necessary. MICROSCOPIC DESCRIPTION Slides are reviewed. This specimen shows liver parenchymal tissue with distortion of normal lobular architecture in multiple nodules divided by fibrous septa. Hepatocytes in nodules shows focal macro- and microvesicular steatosis. Significant nodular inflammation is not seen. Fibrous septa in between the nodules show moderate chronic inflammatory cell infiltrate predominantly consisting of lymphocytes, moderate number of eosinophils and rare neutrophils. Reticulin and trichrome stain highlights the fibrous septa in between hepatocyte nodules. Iron stain shows 3-4+ iron in Kupffer cells and trace amount in hepatocytes. PAS stain with and without diastase do not show any abnormal accumulation of protein. All of the stains are performed with appropriate matched controls. GROSS DESCRIPTION Received is one container labeled with the patient's name and not further designated. The specimen consists of four elongated fragments of low soft tissue that in aggregate measure 2 x 0.3 x 0.1 cm. The specimen is totally submitted in one cassette. SJBrennamr 03/09/2024 TC:5 CPT:21928,[id number]
--- NOTE | 2024-03-09 07:57 | CT_ITS ---
PROCEDURE: CT DIRECTED CORE LIVER BIOPSY INDICATION: Female, 53 years old. Fatty liver and hepatomegaly PHYSICIAN: Dr. Neema Conde CONSENT: Written informed consent was obtained having explained the risks, benefits and alternatives in detail with the patient who accepted the risks and agreed to proceed. Laboratory review and clinical assessment was performed. CONSCIOUS SEDATION PROTOCOL: The Drugs used were: 2 mg Versed, IV., and 50 mcg Fentanyl, IV. The sedation time was: 15 minutes. Conscious sedation was started at 9:22 AM and terminated at 9:37 AM The conscious sedation protocol was independently monitored. RADIATION DOSAGE (If Supplied By Facility): CTDIvol = ( 24.5 ) mGy, DLP = ( 495 ) mGycm Individualized dose optimization techniques were used for this CT. TECHNIQUE: Using CT image guidance with image documentation, a suitable location in the left lobe of the liver was identified. Using an anterior approach, puncture of the liver was uneventful with an 18-gauge core needle system. 4, 18-gauge core samples were obtained, and submitted in formalin to the pathologist for further assessment. Followup CT scan revealed no distinct sequelae. CT/Biopsy/Inj or Needle Placement IMPRESSION: 1. CT directed core needle biopsy of the liver, using CT image guidance with image documentation as described. 2. Conscious Sedation protocol utilized with independent monitoring. Electronically Signed: Naun Bethea MD at 10:21 EST ,
[2024-03-09 08:39] LABS: International Normalized Ratio 1.1; Prothrombin Time (Protime)PT. 14.5 SECONDS (11.7-14.9)
[2024-03-09 08:40] LABS: Partial Thromboplast Time 34.7 Seconds (24.1-36.2)
[2024-03-09 08:47] LABS: Absolute Lymphocyte Count 0.95 X10^3/uL (0.83-4.51); Absolute Neutrophil Count 4.3 X10^3/uL (2.0-7.7); Basophil# 0.01 X10^3/uL; Basophil% 0.2 % (0-1); Eosinophil# 0.14 X10^3/uL; Eosinophils% 2.4 % (0-5); Hematocrit 26.6 % (37-47); Hemoglobin 8.8 g/dL (12.0-15.0); Lymphocyte # 0.95 X10^3/ul (0.83-4.51); Lymphocyte % 16.4 % (19-41); Mean Corp Hgb Conc 33.1 g/dL (32-36); Mean Corpuscular Volume 99.6 fL (81-99); Mean Platelet Vol. 10.7 fl (6.2-12.0); Monocyte# 0.38 X10^3/uL; Monocyte% 6.6 % (0-10); NRBC Flagged by Analyzer 0 % (0-5); Neutrophil # 4.26 X10^3/uL (2.7-7.7); Neutrophil % 73.4 % (47-70); Platelet Count 170 K/mm3 (150-450); RBC Distribution Width CV 14.9 % (11.6-14.6); RBC Distribution Width SD 54.3 fl (35.1-43.9); Red Blood Count 2.67 M/mm3 (4.2-5.4); White Blood Count 5.8 K/mm3 (4.4-11.0)
[2024-03-09] MEDS: Midazolam 2 MG/2 ML Syringe IV (09:25)
[2024-03-09] MEDS: fentaNYL 100 MCG/2 ML Ampul IV (09:27)
[2024-03-09] MEDS: Ondansetron 4 MG/2 ML Vial IV (09:28)
[2024-03-09] MEDS: Lidocaine 2% (20 ml mdv) 20 ML Vial INFILT (09:30)
== END | disposition home or self-care (01) ==
PROVIDERS: PCP Family Medicine; Referring Provider Student in an Organized Health Care Education/Training Program; Visit Provider Student in an Organized Health Care Education/Training Program
DX: K76.0 Fatty (change of) liver, not elsewhere classified (principal)
CPT/HCPCS: 47000; 77012; 85025; 85610; 85730; 88307; 88312; A4216; J2405

== ENCOUNTER 2024-03-11 13:46 | Outpatient (CLI) | payer MEDICARE, SELFPAY ==
--- NOTE | 2024-03-11 13:48 | VDUE_ITS ---
Reason For Study: ESRD on dialysis Right Lower Arm Left Arm Radial A, Prox Bicep, 0.29x0.34cm. Pt has functioning, patent radialcephalic Radial A, Forearm, 0.22x0.23cm. fistula in the Lt arm. Ulnar A, Prox Bicep, 0.38x0.42cm. Left Brachial artery diameter 0.55x0.53 mm. Ulnar A, Forearm, 0.17x0.21cm. Proximal Basilic vein measures 0.31x0.29 cm. Right Arm Mid Basilic vein measures 0.35x0.32 cm. Radial and Ulnar A appear to branch from Left Lower Arm Axillary A. Measurements taken at bicep and Proximal Radial artery diameter 0.33x0.28 mm. forearm. Cephalic Vein at distal forearm measures 0.19x0.22 cm. Cephalic Vein at mid forearm measures 0.07x0.11 cm. Cephalic Vein proximal forearm measures 0.10x0.14 cm. Cephalic Vein distal upper arm measures 0.13x0.17 cm. Cephalic Vein at mid upper arm measures 0.17x0.22 cm. Cephalic Vein at proximal upper arm measures 0.26x0.27 cm. Proximal Basilic vein measures 0.31x0.36 cm. Mid Basilic vein measures 0.32x0.41 cm. Distal Basilic vein measures 0.22x0.29 cm. Procedure Exam performed in department. VL/Dialysis Vein Map PRE-OP BILAT Interpretation Summary Bilateral upper extremity arteries patent with normal waveforms, measurements a ashvin. Bilateral upper extremity veins patent with measurements above. Ordering Physician: Libia Holden Referring Physician: Libia Holden Performed By: Den Toribio RVT and Student ???
== END 2024-03-11 23:59 | disposition home or self-care (01) ==
LOC: CVS 13:47
PROVIDERS: PCP Family Medicine; Referring Provider Physician Assistant; Visit Provider Physician Assistant
DX: Z01.818 Encounter for other preprocedural examination (principal); N18.6 End stage renal disease; Z99.2 Dependence on renal dialysis; T82.590A Other mechanical complication of surgically created arteriovenous fistula, initial encounter; Z98.890 Other specified postprocedural states
CPT/HCPCS: 93985

== ENCOUNTER → 2024-03-18 | Outpatient (CLI) | payer MEDICARE, SELFPAY ==
[2024-03-18 13:11] LABS: International Normalized Ratio 1.2; Prothrombin Time (Protime)PT. 14.9 SECONDS (11.7-14.9)
[2024-03-18 14:14] LABS: ALB/GLOB Ratio 0.6 RATIO (0.9-2.4); AST(SGOT) 13 U/L (15-37); Alanine Aminotransfer ALT/SGPT 18 U/L (13-56); Albumin, Serum 3.1 g/dL (3.2-5.0); Alkaline Phosphatase 76 U/L (45-117); Anion Gap 14 (5-15); BUN 33 mg/dL (7-18); BUN/Creat Ratio 5.3 RATIO (10-20); Calcium,Total 9.4 mg/dL (8.5-10.1); Chloride 91 mmol/L (98-107); Creatinine, Serum 6.17 mg/dL (0.55-1.02); EST Glomerular Filtration Rate 8 mL/min (>60); Est Glom Filt Rate - Afr Amer 9 mL/min (>60); Globulin 5.3 g/dL (2.2-4.2); Glucose 244 mg/dL (74-106); Potassium 3.8 mmol/L (3.5-5.1); Protein, Total 8.4 g/dL (6.4-8.2); Sodium Level 132 mmol/L (136-145)
[2024-03-19 08:11] LABS: AFP, Tumor Marker 3.5 ng/mL (0.0-9.2)
== END | disposition home or self-care (01) ==
PROVIDERS: PCP Family Medicine; Referring Provider Student in an Organized Health Care Education/Training Program; Visit Provider Student in an Organized Health Care Education/Training Program
DX: K74.60 Unspecified cirrhosis of liver (principal)
CPT/HCPCS: 36415; 80053; 82105; 85610

== ENCOUNTER → 2024-03-28 | Outpatient (CLI) | payer MEDICARE, SELFPAY | END | disposition home or self-care (01) | LOC: PSN 11:54 | PROVIDERS: PCP Family Medicine; Referring Provider Internal Medicine Cardiovascular Disease; Visit Provider Internal Medicine Cardiovascular Disease | DX: R42 Dizziness and giddiness (principal) | CPT/HCPCS: 93225; 93226 ==

== ENCOUNTER 2024-04-01 15:42 | Emergency (ER) | payer MEDICARE, SELFPAY ==
[2024-04-01 15:43] VITALS: BP 123/66; PULSE 101; RESP 16; TEMP 37.3; O2SAT 100; BMI 34.0
--- NOTE | 2024-04-01 17:40 | EX.ED.UPPERE ---
HPI History of Present Illness HPI Narrative: Patient presents with left forearm pain that became worse today. Patient states she has a dialysis fistula in her left arm. Patient states she had dialysis and they noted that there was a hematoma in her left forearm. Patient states her pain is getting progressively worse. Patient states her pain is aching and burning. Patient states it is sharp with movement. Patient denies any paresthesias or weakness. Patient denies any color changes of her forearm or hand. Patient denies any trauma or injury. Chief Complaint: Upper Extremity Injury Informant: patient Onset/Context/Timing Onset: Today Context: Gradual Onset Timing: Continuous Quality of Pain: Sharp (With movement), Aching and Burning Location: Left forearm Worsened by: Movement Relieved by: Rest Associated Symptoms Associated Symptoms: Negative for Parasthesia, Weakness or Loss of Funtion PFSH [facility] Medical History ESRD (end stage renal disease) on dialysis Sleep apnea Secondary hyperparathyroidism DM type 2 (diabetes mellitus, type 2) Iron (Fe) deficiency anemia Crohn's disease Depression Asthma Atrial fibrillation Migraines Stroke/cerebrovascular accident Lung nodule seen on imaging study Blindness Cataract (lens) fragments in eye following cataract surgery, bilateral Acute bronchitis, unspecified Atrial fibrillation, controlled Essential hypertension Uses prosthesis Seasonal allergies Wears glasses Anxiety Insulin dependent diabetes mellitus Uses wheelchair Arthritis DVT (deep venous thrombosis) History of Holter monitoring High cholesterol TIA (transient ischemic attack) Seizures Dietary restriction History of hiatal hernia Non-smoker CPAP (continuous positive airway pressure) dependence Shortness of breath on exertion Hypertension History of echocardiogram History of stress test Cardiology follow-up encounter Positive QuantiFERON-TB Gold test Hx of pancreatitis Hepatosplenomegaly Enteritis Nausea and vomiting Alternating constipation and diarrhea Diarrhea HINTON (nonalcoholic steatohepatitis) CKD (chronic kidney disease) Viral gastroenteritis Acute right flank pain Anemia in chronic kidney disease (CKD) COVID-19 virus detected Pneumonia due to COVID-19 virus Below-knee amputation of left lower extremity Osteomyelitis of left foot History of stroke COPD (chronic obstructive pulmonary disease) IBS (irritable bowel syndrome) GERD (gastroesophageal reflux disease) Diastolic dysfunction Cellulitis of left foot Acute kidney injury Right middle lobe pneumonia Hypomagnesemia Osteomyelitis of right foot Peripheral neuropathy Depression Infection of right great toe due to methicillin resistant Staphylococcus aureus (MRSA) Cellulitis of right foot History of MRSA infection Diabetes mellitus Asthma Pulmonary hypertension SLE (systemic lupus erythematosus) Home Medications ?Medication ?Instructions ?Recorded ?Last Taken ?Type duloxetine 60 mg capsule,delayed 60 mg PO QHS depression 11/26/12 10/22/23 History release insulin regular hum U-500 conc 500 2.2 units subcut CONT insulin pump 10/02/15 10/23/23 History unit/mL subcutaneous soln trazodone 100 mg tablet 150 mg PO QHS sleep 12/27/15 10/22/23 History ergocalciferol (vitamin D2) 1,250 50,000 unit PO QWEEK supplement 01/24/16 10/16/23 History mcg (50,000 unit) capsule albuterol sulfate 2.5 mg/3 mL 2.5 mg inhalation Q4H PRN PRN 06/09/16 09/01/16 History (0.083 %) solution for nebulization Wheezing gabapentin 800 mg tablet 800 mg PO TID neuropathy 05/19/17 10/22/23 History rosuvastatin 10 mg tablet 40 mg PO QHS cholesterol 06/03/17 10/22/23 History magnesium oxide 400 mg (241.3 mg 400 mg PO DAILYCM supplement 07/30/18 10/22/23 History magnesium) tablet hydroxyzine pamoate 50 mg capsule 50 mg PO TID PRN Anxiety 02/20/20 10/22/23 History duloxetine 30 mg capsule,delayed 30 mg PO DAILY depression 05/09/20 10/22/23 History release ondansetron 4 mg disintegrating 8 mg PO Q8H PRN PRN Nausea 09/03/21 01/11/24 History tablet diphenoxylate-atropine 2.5 1 tab PO BID PRN diarrhea #180 tabs 08/04/22 10/22/23 Rx mg-0.025 mg tablet (Lomotil) hyoscyamine sulfate 0.125 mg tablet 0.125 mg PO BID-QID PRN abdominal 08/04/22 Unknown Rx pain #360 tabs albuterol sulfate 90 mcg/actuation 2 puff inhalation Q4-6H PRN 02/26/23 Unknown History aerosol inhaler (ProAir HFA) shortness of breath or wheezing calcium acetate(phosphat bind) 667 2,668 mg PO TID binder 03/26/23 10/22/23 History mg capsule Held on 03/09/24. Instructions: Ordered fenofibrate nanocrystallized 48 mg 48 mg PO DAILY . 08/11/23 10/22/23 History tablet risankizumab-rzaa 360 mg/2.4 mL 360 mg (2.4 mL) subcut .COMPLEX . 08/21/23 08/28/23 Rx (150 mg/mL) subcut wearable #2.4 mL injector (Skyrizi) cinacalcet 30 mg tablet 30 mg PO DAILY . 10/23/23 10/22/23 History midodrine 10 mg tablet 20 mg PO 4XD PRN . 10/23/23 01/11/24 History omeprazole 40 mg capsule,delayed 40 mg PO DAILY GERD 10/23/23 10/22/23 History release cefepime 1 gram/50 mL in dextrose 1 g IV DAILY 14 days 10/29/23 Unknown Rx 5 % intravenous piggyback oxycodone-acetaminophen 5 mg-325 1 tab PO Q6H PRN pain 5 days #20 10/30/23 Unknown Rx mg tablet (Percocet) tabs apixaban 5 mg tablet (Eliquis) 5 mg PO BID #60 TABLETS 12/14/23 Unknown Rx budesonide 3 mg 9 mg (3 x 3 mg) PO DAILY #90 caps 12/18/23 Unknown Rx capsule,delayed,extended release fludrocortisone 0.1 mg tablet 0.1 mg PO DAILY #30 TABLETS 12/18/23 Unknown Rx calcitriol 0.25 mcg capsule 0.25 mcg PO QDAY 02/03/24 Unknown History calcitriol 0.5 mcg capsule 0.5 mcg PO QDAY . 02/03/24 Unknown History epoetin regan-epbx 2,000 unit/mL 3,800 unit subcut QWEEK . 02/03/24 Unknown History injection solution (Retacrit) insulin aspart U-100 100 unit/mL See Protocol subcut ACHS diabetes 02/03/24 Unknown History (3 mL) subcutaneous pen mesalamine 500 mg capsule,extended 1,000 mg PO BID 02/03/24 Unknown History release (Pentasa) vitamin B complex-vitamin C-folic 1 tab PO QDAY 02/03/24 Unknown History acid 0.8 mg tablet (Nephro-[place]) promethazine 12.5 mg tablet 12.5 mg PO Q6H PRN nausea and 02/26/24 Unknown Rx vomiting #20 tabs lactulose 10 gram/15 mL oral 10 g (15 mL) PO BID #3,785 mL 03/15/24 Unknown Rx solution Allergy/AdvReac Type Severity Reaction Status Date / Time atorvastatin (From Lipitor) AdvReac Severe Vomiting Verified 04/01/24 15:47 Family History Mother Hypertension Cancer skin Grandmother Hypertension Diabetes Brother Cancer NHL Arthritis Brother Arthritis Surgical History Hx of BKA Status post insertion of spinal cord stimulator S/P arteriovenous (AV) fistula repair S/P arteriovenous (AV) fistula creation History of lithotripsy History of below-knee amputation of left lower extremity History of eye surgery History of temporal artery biopsy History of lymph node biopsy History of liver biopsy Partial nontraumatic amputation of right foot History of amputation of hallux History of carpal tunnel surgery History of hernia repair History of cholecystectomy History of hysterectomy History of tubal ligation Status post transmetatarsal amputation of right foot Social History Smoking Status: Never smoker second hand exposure: Yes alcohol intake: current details: rare substance use type: does not use ROS ROS ED Constitutional Constitutional ED: Reports fever(s); Denies chills Eyes Eyes: Denies blurry vision or change in vision ENT ENT ED: Denies rhinorrhea or sore throat Cardiovascular Cardiovascular: Denies chest pain or palpitations Respiratory/Chest Respiratory/Chest: Reports cough; Denies dyspnea Gastrointestinal Gastrointestinal: Reports nausea and vomiting Genitourinary Genitourinary ED: Denies dysuria or hematuria Musculoskeletal Musculoskeletal: Denies back pain or neck pain Integumentary Denies abscess or rash Neurologic Neurologic: Reports headache(s); Denies weakness Allergic/Immunologic Allergic/Immunologic ED: Denies mouth swelling or urticaria EXAM Physical Exam Const Vital Signs: 04/01/24 15:43 Temperature 99.1 F Temperature Source Oral Pulse Rate 101 H Respiratory Rate 16 Blood Pressure 123/66 H Blood Pressure Mean 85 Pulse Ox 100 Oxygen Delivery Method Nasal Cannula Oxygen Flow Rate (L/min) 2 Positive well nourished and well developed General Appearance ED: well developed and NAD HEENT Reports moist mucous membranes Neck full ROM and supple Resp normal respiratory effort and clear to auscultation bilaterally Cardio regular rate and regular rhythm GI non-tender and non-distended Palpation: soft Extremity Extremity Narrative: There is tenderness over the left forearm. There is a palpable thrill noted over the AV fistula. There is some mild edema. There is no bony crepitance or step-off. There is no deformity noted. Range of motion of the left elbow and wrist was limited in all motions secondary to pain. Sensation was intact to light touch in the radial, median, and ulnar areas. Strength is 5/5 in the radial, median, and ulnar areas. Forearm compartments are soft. Neuro oriented x3, CN's II-XII intact bilaterally, moves all extremities, no focal motor deficits and no sensory deficits noted Sensorium / Orientation: alert Motor Exam: strength 5/5 throughout Psych mental status grossly normal MDM MDM MDM Narrative Medical decision making narrative: Differential diagnosis includes cellulitis, hematoma, infection, electrolyte abnormality, and muscle strain. CBC will be obtained to assess for leukocytosis and anemia. Basic metabolic profile will be obtained to assess for electrolyte abnormality and renal function. Serum lactate will be obtained to assess for sepsis. Venous duplex of the left upper extremity was ordered for possible DVT. However, this was unable to be obtained. Given that she has an AV fistula in her left arm, suspicion for DVT is very low. Lab Data Attestation: I reviewed the patient's lab results. Lab results narrative: CBC was reviewed. Hemoglobin was slightly low at 8.5 and hematocrit 25.7. This is unchanged compared to previous results. White blood cell count was within normal limits. Basic metabolic profile was reviewed. BUN was 37 and creatinine was 5.42. This is consistent with previous results. The remainder is within normal limits. Serum lactate was reviewed and was normal at 1.2. Treatment and Re-Evaluation Narrative: Patient was given a dose of morphine. Patient was advised of her findings. Patient was instructed to ice and elevate the left upper extremity. Patient states she has Percocet at home to take as needed for pain. Patient was instructed to follow-up with her primary care physician in 3 to 5 days. Patient was instructed to return if worse in any way. Patient understood and was agreeable with the plan. All questions were answered. Discharge Plan Triage Chief Complaint: Upper Extremity Injury ED Provider: Mikey Sandoval Dx/Rx/DC Orders Clinical Impression: Hematoma of left forearm, ESRD (end stage renal disease) on dialysis Instructions: ED Chronic Kidney Disease (CKD), ED Contusion, Upper Extremity Prescriptions: No Action ondansetron 4 mg tablet,disintegrating 8 mg PO Q8H PRN PRN (Reason: Nausea) albuterol sulfate [ProAir HFA] 90 mcg/actuation HFA aerosol inhaler 2 puff inhalation Q4-6H PRN (Reason: shortness of breath or wheezing) calcium acetate(phosphat bind) 667 mg capsule 2,668 mg PO TID Patient Comments: take 4 caps with meals calcitriol 0.5 mcg capsule 0.5 mcg PO QDAY Retacrit 2,000 unit/mL solution 3,800 unit subcut QWEEK calcitriol 0.25 mcg capsule 0.25 mcg PO QDAY mesalamine [Pentasa] 500 mg capsule, extended release 1,000 mg PO BID Nephro-[place] 0.8 mg tablet 1 tab PO QDAY duloxetine 60 MG capsule 60 mg PO QHS Patient Comments: DEPRESSION AND PAIN CONTROL insulin regular hum U-500 conc 20 ML solution 2.2 units SC CONT Patient Comments: insulin pump Rx Instructions: changed site today 02/19/20 trazodone 100 MG tablet 150 mg PO QHS Patient Comments: SLEEP ergocalciferol (vitamin D2) 50,000 UNIT capsule 50,000 unit PO QWEEK Patient Comments: supplement albuterol sulfate 2.5 MG/3 ML solution for nebulization 2.5 mg INHALATION Q4H PRN PRN (Reason: Wheezing) Patient Comments: shortness of breath gabapentin 800 MG tablet 800 mg PO TID Patient Comments: nerve pain rosuvastatin 10 mg tablet 40 mg PO QHS magnesium oxide 400 MG tablet 400 mg PO DAILYCM duloxetine 30 mg capsule,delayed release(DR/EC) 30 mg PO DAILY Patient Comments: takes 30mg with 60mg for total daily dose of 90mg insulin aspart U-100 100 unit/mL (3 mL) insulin pen See Protocol SC ACHS Protocol: 6. Sliding Scale Insulin Custom Condition: mg/dl range Dose/Route: Number of Units Protocol Text: Custom Sliding Scale Patient Comments: if blood sugar is over 200. calculate reading over 200. divide in half and give that many units of insulin. hydroxyzine pamoate 50 MG capsule 50 mg PO TID PRN (Reason: Anxiety) cinacalcet 30 mg tablet 30 mg PO DAILY omeprazole 40 mg capsule,delayed release(DR/EC) 40 mg PO DAILY midodrine 10 mg tablet 20 mg PO 4XD PRN (Reason: .) Rx Instructions: two tablets up to qid cefepime in dextrose 5 % 1 gram/50 mL piggyback 1 g IV DAILY 14 Days Rx Instructions: 1gm iv daily, take after HD sessions on Mon-Fri. Dx: pseudomonas infection. Weekly bmp and cbc. Fax to [phone]. Routine midline care per protocol. oxycodone-acetaminophen [Percocet] 5-325 mg tablet 1 tab PO Q6H PRN (Reason: pain) 5 Days Qty: 20 0RF fenofibrate nanocrystallized 48 mg tablet 48 mg PO DAILY diphenoxylate-atropine [Lomotil] 2.5-0.025 mg tablet 1 tab PO BID PRN (Reason: diarrhea) Qty: 180 3RF hyoscyamine sulfate 0.125 mg tablet 0.125 mg PO BID-QID PRN (Reason: abdominal pain) Qty: 360 3RF Skyrizi 360 mg/2.4 mL (150 mg/mL) wearable injector 360 mg subcut .COMPLEX Qty: 2.4 6RF Rx Instructions: 360 mg subcutaneously every 8 weeks; Eliquis 5 mg tablet 5 mg PO BID Qty: 60 11RF fludrocortisone 0.1 mg tablet 0.1 mg PO DAILY Qty: 30 0RF budesonide 3 mg capsule,delayed,extend.release 9 mg PO DAILY Qty: 90 0RF promethazine 12.5 mg tablet 12.5 mg PO Q6H PRN (Reason: nausea and vomiting) Qty: 20 2RF lactulose 10 gram/15 mL solution 10 g PO BID Qty: 3785 2RF Primary Care Provider: Johann Jimenez Referrals: Johann Jimenez MD [Primary Care Provider] - 3-5 Days Print Language: Hong Konger Disposition Disposition: Home, Self Care
[2024-04-01] MEDS: Morphine 4 MG/ML Syringe IM (17:47)
[2024-04-01 17:52] LABS: Absolute Lymphocyte Count 0.94 X10^3/uL (0.83-4.51); Basophil# 0.02 X10^3/uL; Basophil% 0.2 % (0-1); Eosinophil# 0.14 X10^3/uL; Eosinophils% 1.6 % (0-5); Hematocrit 25.7 % (37-47); Hemoglobin 8.5 g/dL (12.0-15.0); Lymphocyte # 0.94 X10^3/ul (0.83-4.51); Lymphocyte % 10.8 % (19-41); Mean Corp Hgb Conc 33.1 g/dL (32-36); Mean Corpuscular Hgb 32.3 pg (27.0-32.0); Mean Corpuscular Volume 97.7 fL (81-99); Mean Platelet Vol. 10.1 fl (6.2-12.0); Monocyte# 0.57 X10^3/uL; Monocyte% 6.5 % (0-10); NRBC Flagged by Analyzer 0 % (0-5); Neutrophil # 6.96 X10^3/uL (2.7-7.7); Neutrophil % 79.6 % (47-70); Platelet Count 178 K/mm3 (150-450); RBC Distribution Width CV 14.4 % (11.6-14.6); RBC Distribution Width SD 50.4 fl (35.1-43.9); Red Blood Count 2.63 M/mm3 (4.2-5.4); White Blood Count 8.7 K/mm3 (4.4-11.0)
[2024-04-01 18:15] LABS: Anion Gap 10 (5-15); BUN 37 mg/dL (7-18); BUN/Creat Ratio 6.8 RATIO (10-20); Calcium,Total 10.1 mg/dL (8.5-10.1); Chloride 97 mmol/L (98-107); Creatinine, Serum 5.42 mg/dL (0.55-1.02); EST Glomerular Filtration Rate 9 mL/min (>60); Est Glom Filt Rate - Afr Amer 11 mL/min (>60); Estimated Creatinine Clearance 14.15 ml/min; Glucose 74 mg/dL (74-106); Potassium 3.7 mmol/L (3.5-5.1); Sodium Level 137 mmol/L (136-145)
[2024-04-01 18:20] LABS: Lactic Acid 1.2 mmol/L (0.4-1.9)
== END 2024-04-01 19:28 | disposition home or self-care (01) ==
PROVIDERS: Emergency Provider Emergency Medicine; PCP Family Medicine; Visit Provider Emergency Medicine
DX: S50.12XA Contusion of left forearm, initial encounter (principal); N18.6 End stage renal disease; I12.0 Hypertensive chronic kidney disease with stage 5 chronic kidney disease or end stage renal disease; J44.9 Chronic obstructive pulmonary disease, unspecified; I48.91 Unspecified atrial fibrillation; E11.22 Type 2 diabetes mellitus with diabetic chronic kidney disease; Z79.4 Long term (current) use of insulin; Z99.2 Dependence on renal dialysis; E78.00 Pure hypercholesterolemia, unspecified; Z86.73 Personal history of transient ischemic attack (TIA), and cerebral infarction without residual deficits; G47.30 Sleep apnea, unspecified; Z99.89 Dependence on other enabling machines and devices; F32.A Depression, unspecified; Z79.899 Other long term (current) drug therapy; Z79.01 Long term (current) use of anticoagulants; K21.9 Gastro-esophageal reflux disease without esophagitis; Z90.49 Acquired absence of other specified parts of digestive tract; Z90.710 Acquired absence of both cervix and uterus; Z98.51 Tubal ligation status
CPT/HCPCS: 80048; 83605; 85025; 96372; 99282; A4216

== ENCOUNTER 2024-04-12 12:10 | Day surgery (SDC) | payer MEDICARE, SELFPAY ==
--- NOTE | 2024-04-06 21:23 | PAT.ANE_ITS ---
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 When Was Last Pacemaker Check QUESTION #4 FULL TEXT: You/Your Family Experience fever (hyperthermia) with Anesthesia Last Oral Intake Last Oral intake: Last Oral Intake NPO since Meds taken in AM with sips of water? Meds patient instructed to take am of surgery PONV PONV - contact lens inspector: PONV - contact lens inspector Female Yes 04/06/24 10:39 HX of Motion Sickness No 04/06/24 10:39 HX of N/V After Surgery Yes 04/06/24 10:39 Non-Smoker Yes 04/06/24 10:39 Duration of Surgery greater No 04/06/24 10:39 than 60 minutes Number of Risk Factors 3 04/06/24 10:39 PONV Score Moderate Risk 04/06/24 10:39 Height & Weight Height & Weight: Anesthesia: Height & Weight Height 5 ft 6 in 01/11/24 10:08 Respiratory Assessment Respiratory Assessment - contact lens inspector: Respiratory Tract Infection Hx - contact lens inspector Hx Respiratory Tract Infection No 04/06/24 10:39 STOP Sleep Apnea STOP Sleep Apnea - contact lens inspector: STOP Sleep Apnea - contact lens inspector Hx Hypertension No 04/06/24 10:39 Hx Sleep Apnea Yes 04/06/24 10:39 CPAP Yes: WITH 2L O2 04/06/24 10:39 BIPAP No 04/06/24 10:39 Do you snore loudly (louder than talking or can be heard Do you often feel tired/ fatigued/ sleepy during daytime? Has anyone observed you stop breathing during sleep? STOP Results Positive 04/06/24 10:39 QUESTION #5 FULL TEXT : Do you snore loudly (louder than talking or can be heard through closed doors)? 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 Specify any problems Hx of Preganancy in last 3 N/A 04/06/24 10:39 Months Nurse Filling Out Transfusion NBUCHER 04/06/24 10:39 & Questions: Date: 04/06/24 04/06/24 10:39 Time: 10:41 04/06/24 10:39 Patient unable to answer at this time (ie. confused, unrespo /Reproduction History /Reproductive History - contact lens inspector: /Reproductive Hx- contact lens inspector Hx Now Gestational Age (in weeks): EDC: Hx Hx Para Hx Section SAB No 10/26/23 19:23 PFSH Medical History (Updated 04/06/24 @ 10:54 by Pat Carmichael) MRSA infection Open wound History of steroid therapy Thyroid disease History of renal dialysis History of renal disease Low iron Hematoma Syncope History of Crohn's disease GERD (gastroesophageal reflux disease) Chronic cough Leg cramps History of edema History of atrial fibrillation Secondary hyperparathyroidism DM type 2 (diabetes mellitus, type 2) Depression Asthma Atrial fibrillation Migraines Stroke/cerebrovascular accident ESRD (end stage renal disease) on dialysis Lung nodule seen on imaging study Blindness Cataract (lens) fragments in eye following cataract surgery, bilateral Acute bronchitis, unspecified Atrial fibrillation, controlled Essential hypertension Uses prosthesis Seasonal allergies Wears glasses Anxiety Insulin dependent diabetes mellitus Uses wheelchair Arthritis DVT (deep venous thrombosis) History of Holter monitoring High cholesterol TIA (transient ischemic attack) Seizures Dietary restriction History of hiatal hernia Non-smoker CPAP (continuous positive airway pressure) dependence Sleep apnea Shortness of breath on exertion Hypertension History of echocardiogram History of stress test Cardiology follow-up encounter Positive QuantiFERON-TB Gold test Crohn's disease Hx of pancreatitis Hepatosplenomegaly Enteritis Nausea and vomiting Alternating constipation and diarrhea Diarrhea HINTON (nonalcoholic steatohepatitis) CKD (chronic kidney disease) Viral gastroenteritis Acute right flank pain Anemia in chronic kidney disease (CKD) COVID-19 virus detected Pneumonia due to COVID-19 virus Below-knee amputation of left lower extremity Osteomyelitis of left foot History of stroke COPD (chronic obstructive pulmonary disease) IBS (irritable bowel syndrome) GERD (gastroesophageal reflux disease) Diastolic dysfunction Cellulitis of left foot Iron (Fe) deficiency anemia Acute kidney injury Right middle lobe pneumonia Hypomagnesemia Osteomyelitis of right foot Peripheral neuropathy Depression Infection of right great toe due to methicillin resistant Staphylococcus aureus (MRSA) Cellulitis of right foot History of MRSA infection Diabetes mellitus Asthma Pulmonary hypertension SLE (systemic lupus erythematosus) Home Medications ?Medication ?Instructions ?Recorded ?Last Taken ?Type duloxetine 60 mg capsule,delayed 60 mg PO QHS depressi on 11/26/12 10/22/23 History release insulin regular hum U-500 conc 500 2.2 units subcut CO NT insulin pump 10/02/15 10/23/23 History unit/mL subcutaneous soln trazodone 100 mg tablet 150 mg PO QHS sleep 12/27/15 10/22/23 History ergocalciferol (vitamin D2) 1,250 50,000 unit PO QWEEK supplement 01/24/16 10/16/23 History mcg (50,000 unit) capsule albuterol sulfate 2.5 mg/3 mL 2.5 mg inhalation Q4H CO N PRN 06/09/16 09/01/16 History (0.083 %) solution for nebulization Wheezing gabapentin 800 mg tablet 800 mg PO TID neuropathy 05/0310/22/23 History rosuvastatin 10 mg tablet 40 mg PO QHS cholesterol 10/22/23 History magnesium oxide 400 mg (241.3 mg 400 mg PO DAILYCM sup plement 07/30/18 10/22/23 History magnesium) tablet hydroxyzine pamoate 50 mg capsule 50 mg PO TID PRN Anx iety 02/20/20 10/22/23 History duloxetine 30 mg capsule,delayed 30 mg PO DAILY depres giles 05/09/20 10/22/23 History release ondansetron 4 mg disintegrating 8 mg PO Q8H PRN PRN Na usea 09/03/21 01/11/24 History tablet diphenoxylate-atropine 2.5 1 tab PO BID PRN diarrhea # 180 tabs 08/04/22 10/22/23 Rx mg-0.025 mg tablet (Lomotil) hyoscyamine sulfate 0.125 mg tablet 0.125 mg PO BID-QI D PRN abdominal 08/04/22 Unknown Rx pain #360 tabs albuterol sulfate 90 mcg/actuation 2 puff inhalation Q 4-6H PRN 02/26/23 Unknown History aerosol inhaler (ProAir HFA) shortness of breath or wh eezing fenofibrate nanocrystallized 48 mg 48 mg PO DAILY . 10/22/23 History tablet risankizumab-rzaa 360 mg/2.4 mL 360 mg (2.4 mL) subcut .COMPLEX . 08/21/23 08/28/23 Rx (150 mg/mL) subcut wearable #2.4 mL injector (Skyrizi) cinacalcet 30 mg tablet 30 mg PO DAILY . 10/23/23 History midodrine 10 mg tablet 20 mg PO 4XD PRN . 10/23/23 01/11/24 History omeprazole 40 mg capsule,delayed 40 mg PO DAILY GERD 0 10/23/23 10/22/23 History release cefepime 1 gram/50 mL in dextrose 1 g IV DAILY 14 days 10/29/23 Unknown Rx 5 % intravenous piggyback oxycodone-acetaminophen 5 mg-325 1 tab PO Q6H PRN pain 5 days #20 10/30/23 Unknown Rx mg tablet (Percocet) tabs apixaban 5 mg tablet (Eliquis) 5 mg PO BID #60 TABLETS 12/14/23 Unknown Rx budesonide 3 mg 9 mg (3 x 3 mg) PO DAILY #90 caps 12/18/23 Unknown Rx capsule,delayed,extended release fludrocortisone 0.1 mg tablet 0.1 mg PO DAILY #30 TABL ETS 12/18/23 Unknown Rx calcitriol 0.25 mcg capsule 0.25 mcg PO QDAY 02/03/24 Unknown History calcitriol 0.5 mcg capsule 0.5 mcg PO QDAY . 02/03/24 Unknown History epoetin regan-epbx 2,000 unit/mL 3,800 unit subcut MO . 02/03/24 Unknown History injection solution (Retacrit) insulin aspart U-100 100 unit/mL See Protocol subcut A [facility] diabetes 02/03/24 Unknown History (3 mL) subcutaneous pen mesalamine 500 mg capsule,extended 1,000 mg PO BID Unknown History release (Pentasa) vitamin B complex-vitamin C-folic 1 tab PO QDAY Unknown History acid 0.8 mg tablet (Nephro-[place]) promethazine 12.5 mg tablet 12.5 mg PO Q6H PRN nausea and 02/26/24 Unknown Rx vomiting #20 tabs lactulose 10 gram/15 mL oral 10 g (15 mL) PO BID #3,78 5 mL 03/15/24 Unknown Rx solution Allergy/AdvReac Type Severity Reaction Status Date / Time atorvastatin (From Lipitor) AdvReac Severe Vomiting Verified 04/06/24 10:32 Family History Mother Hypertension Cancer skin Grandmother Hypertension Diabetes Brother Cancer NHL Arthritis Brother Arthritis Surgical History Hx of BKA Status post insertion of spinal cord stimulator S/P arteriovenous (AV) fistula repair S/P arteriovenous (AV) fistula creation History of lithotripsy History of below-knee amputation of left lower extremity History of eye surgery History of temporal artery biopsy History of lymph node biopsy History of liver biopsy Partial nontraumatic amputation of right foot History of amputation of hallux History of carpal tunnel surgery History of hernia repair History of cholecystectomy History of hysterectomy History of tubal ligation Status post transmetatarsal amputation of right foot Social History Smoking Status: Never smoker second hand exposure: Yes alcohol intake: current details: rare substance use type: does not use Audit: Pertinent Findings Pertinent Findings EKG Perinent findings: March 04, 2024. Sinus tachycardia at 107 bpm.. Poor R wave progression?consider old anterior infarct. Stress test pertinent findings: September 22, 2022. Ejection fraction is 64%. No areas of ischemia were seen no previous infarct was noted. Echo (EF%) pertinent findings: August 11, 2022. Ejection fraction of 50%. PA systolic pressure is 28 mmHg. Aortic valve is not with well visualized. Consult pertinent findings: March 04, 2024. Dr. Hernandez. 1. Dizziness, shortness of breath on exertion, sleep apnea-all acute. 2. Paroxysmal atrial fibrillation-EKGs dating back to 2018 showed normal sinus rhythm. No atrial fibrillation was ever documented. Plan for Holter monitor. 3. End-stage renal disease on dialysis. Additional pertinent findings: Holter monitor. January 25, 2025. Average heart beat is in normal sinus rhythm. 64 ventricular ectopic beats. 12 supraventricular ectopic beats. Patient kept a diary which noted chest and throat tightness funny beats choking feeling dizzy and lightheadedness shortness of breath and numbness which all correlated with normal sinus rhythm and/or sinus tachycardia. This was a benign Holter. Recommendation Anesthesia Recommendation Anesthesia recommendation: OPTIMIZED for anesthesia
[2024-04-12] VITALS (10 sets, daily range): BP systolic 87–117; BP diastolic 51–65; PULSE 92–97; RESP 12–18; TEMP 36.4–37.5; O2SAT 92–99; BMI 33.7
--- NOTE | 2024-04-12 | IMM_PTH ---
PATIENT: FORD HESTER LOC: EN U#:[id number] AGE/SX: 53/F ROOM: RE04/12/[address]: Dr. Rogers Cox DO : 1970 BED: DIS: 04/12/2024 SPEC #: [id number] RECD: 04/14/24 10:27 STATUS: HEATHER REKael #: [id number] LOLITA: 04/12/24 00:[address]: Rogers Cox DEPT: IMMUNOHISTOCHEMISTRY RECD BY: Isidro Juarez ENTERED: 04/14/24 10:28 SP TYPE: IMMUNO OTHR DR: Dr. Johann Jimenez MD Tissues: COLON BIOPSY Procedures: H Pylori (initial) PHYSICIAN & INSTITUTION [place] [address] SPECIMEN INFORMATION: Tissue Source: B- Lesser curvature biopsy Clinical Info: GERD, fatty liver, Crohn's disease Specimen Number: [id number] CPT code: 61265 METHODOLOGY: Deparaffinized sections of prefer/formalin-fixed tissue or PAP/DQ stained slides are incubated with monoclonal/polyclonal antibodies/oligonucleotide probes. Localization is made via biotin free immunoperoxidase method. Appropriate controls are performed and reacted as expected. Results on target cell population are indicated in the following table: RESULTS: ANTIBODY / CLONE RESULT Block B H Pylori (polyclonal) negative These tests were developed and their performance characteristics determined by [facility]. They may not have been cleared or approved by the [place]. Food and Drug Administration. The FDA has determined that such clearance or approval is not necessary. The above immunohistochemical/dualISH markers are ordered and reviewed by the Pathologist. INTERPRETATION: B. Lesser curvature, biopsy: Negative for Helicobacter pylori organisms. 04/15/2024
--- NOTE | 2024-04-12 12:52 | PCM.PRE.AN2 ---
ASA Classification* ASA Classification ASA Classification: 3 Assessment & Plan Anesthesia* Anesthesia Assessment Anesthesia Assessment: Discussed sedation and/or anesthesia options, risks, benefits, and alternatives with patient/parents/legal guardian/POA. Questions invited. The patient/parents/legal guardian/POA seems to understand and agrees to proceed with anesthesia plan. Reviewed the physical assessment, medical history, allergy history and patient home medications list prior to surgery/procedure/anesthetic and documented any changes. Performed airway and anesthesia risk assessments. Anesthesia Type Anesthesia Type: MAC History Source History Obtained from:: Patient and Chart Anesthesia Focused Assessment* Temperature: 97.6 F Pulse Rate: 92 Blood Pressure: 117/65 Respiratory Rate: 16 Pulse Ox: 92 Oxygen Delivery Method: Room Air Oxygen Flow Rate (L/min): 2 Airway Assessment Mouth opens: 2 cm Mallampati Score: IV Teeth Condition: Intact Neck Range of motion (ROM): Limited ROM (Somewhat decreased extension) Focused Labs Anesthesia Preop lab: CBC WBC 8.7 K/mm3 (4.4-11.0) 04/01/24 17:40 04/01/24 RBC 2.63 M/mm3 (4.2-5.4) L 04/01/24 17:40 04/01/24 Hgb 8.5 g/dL (12.0-15.0) L 04/01/24 17:40 04/01/24 Hct 25.7 % (37-47) L 04/01/24 17:40 04/01/24 Plt Count 178 K/mm3 (150-450) 04/01/24 17:40 04/01/24 CHEMISTRY Potassium 3.7 mmol/L (3.5-5.1) 04/01/24 17:40 04/01/24 Sodium 137 mmol/L (136-145) 04/01/24 17:40 04/01/24 Magnesium 2.4 mg/dL (1.6-2.6) 10/26/23 06:15 10/26/23 Phosphorus 8.0 mg/dL (2.5-4.9) H 10/26/23 06:15 10/26/23 BUN 37 mg/dL (7-18) H 04/01/24 17:40 04/01/24 Creatinine 5.42 mg/dL (0.55-1.02) H 04/01/24 17:40 04/01/24 Glucose 74 mg/dL (74-106) 04/01/24 17:40 04/01/24 POC Glucose 200 mg/dL (74-106) H 10/30/23 16:35 10/30/23 TSH 1.58 uIU/mL (0.358-3.74) 02/04/23 15:34 02/04/23 COAG PT 14.9 SECONDS (11.7-14.9) 03/18/24 12:26 03/18/24 Pre-Assessment Diagnosis/Proposed Procedure Planned Operative Procedure(s): EGD Anesthesia History Anesthesia History - account service associate: Anesthesia History - account service associate Hx Hospitalization Yes: INFECTION OF BACK FROM 04/06/24 10:39 PAIN STIMULATOR Any Problems With Anesthesia No 04/06/24 10:39 Cholinesterase deficiency No 04/06/24 10:39 You/Your Family Experience No 04/06/24 10:39 fever (hyperthermia) with Relationship Recent Exposure to Contagious No 04/12/24 12:29 Disease Does patient have nerve Yes 04/06/24 10:39 stimulator Patient instructed to have device shut off --Does patient have Pacemaker No 04/12/24 12:29 or ICD? When Was Last Pacemaker Check QUESTION #4 FULL TEXT: You/Your Family Experience fever (hyperthermia) with Anesthesia Last Oral Intake Last Oral intake: Last Oral Intake NPO since Meds taken in AM with sips of Yes 04/12/24 12:29 water? Meds patient instructed to take am of surgery Any additional information?: Yes NPO since: 00:00 Meds taken in AM with sips of water?: Yes PONV PONV - account service associate: PONV - account service associate Female Yes 04/06/24 10:39 HX of Motion Sickness No 04/06/24 10:39 HX of N/V After Surgery Yes 04/06/24 10:39 Non-Smoker Yes 04/06/24 10:39 Duration of Surgery greater No 04/06/24 10:39 than 60 minutes Number of Risk Factors 3 04/06/24 10:39 PONV Score Moderate Risk 04/06/24 10:39 Height & Weight Height & Weight: Anesthesia: Height & Weight Height 5 ft 6 in 04/12/24 12:29 Weight: 95 kg 04/12/24 12:29 Body Mass Index (BMI) 33.7 04/12/24 12:29 Respiratory Assessment Respiratory Assessment - account service associate: Respiratory Tract Infection Hx - account service associate Hx Respiratory Tract Infection No 04/06/24 10:39 STOP Sleep Apnea STOP Sleep Apnea - account service associate: STOP Sleep Apnea - account service associate Hx Hypertension No 04/06/24 10:39 Hx Sleep Apnea Yes 04/06/24 10:39 CPAP Yes: WITH 2L O2 04/06/24 10:39 BIPAP No 04/06/24 10:39 Do you snore loudly (louder than talking or can be heard Do you often feel tired/ fatigued/ sleepy during daytime? Has anyone observed you stop breathing during sleep? STOP Results Positive 04/06/24 10:39 QUESTION #5 FULL TEXT : Do you snore loudly (louder than talking or can be heard through closed doors)? 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 Specify any problems Hx of Preganancy in last 3 N/A 04/06/24 10:39 Months Nurse Filling Out Transfusion NBUCHER 04/06/24 10:39 & Questions: Date: 04/06/24 04/06/24 10:39 Time: 10:41 04/06/24 10:39 Patient unable to answer at this time (ie. confused, unrespo /Reproduction History /Reproductive History - account service associate: /Reproductive Hx- account service associate Hx Now Gestational Age (in weeks): EDC: Hx Hx Para Hx Section SAB No 10/26/23 19:23 PFSH Medical History MRSA infection Open wound History of steroid therapy Thyroid disease History of renal dialysis History of renal disease Low iron Hematoma Syncope History of Crohn's disease GERD (gastroesophageal reflux disease) Chronic cough Leg cramps History of edema History of atrial fibrillation Secondary hyperparathyroidism DM type 2 (diabetes mellitus, type 2) Depression Asthma Atrial fibrillation Migraines Stroke/cerebrovascular accident ESRD (end stage renal disease) on dialysis Lung nodule seen on imaging study Blindness Cataract (lens) fragments in eye following cataract surgery, bilateral Acute bronchitis, unspecified Atrial fibrillation, controlled Essential hypertension Uses prosthesis Seasonal allergies Wears glasses Anxiety Insulin dependent diabetes mellitus Uses wheelchair Arthritis DVT (deep venous thrombosis) History of Holter monitoring High cholesterol TIA (transient ischemic attack) Seizures Dietary restriction History of hiatal hernia Non-smoker CPAP (continuous positive airway pressure) dependence Sleep apnea Shortness of breath on exertion Hypertension History of echocardiogram History of stress test Cardiology follow-up encounter Positive QuantiFERON-TB Gold test Crohn's disease Hx of pancreatitis Hepatosplenomegaly Enteritis Nausea and vomiting Alternating constipation and diarrhea Diarrhea HINTON (nonalcoholic steatohepatitis) CKD (chronic kidney disease) Viral gastroenteritis Acute right flank pain Anemia in chronic kidney disease (CKD) COVID-19 virus detected Pneumonia due to COVID-19 virus Below-knee amputation of left lower extremity Osteomyelitis of left foot History of stroke COPD (chronic obstructive pulmonary disease) IBS (irritable bowel syndrome) GERD (gastroesophageal reflux disease) Diastolic dysfunction Cellulitis of left foot Iron (Fe) deficiency anemia Acute kidney injury Right middle lobe pneumonia Hypomagnesemia Osteomyelitis of right foot Peripheral neuropathy Depression Infection of right great toe due to methicillin resistant Staphylococcus aureus (MRSA) Cellulitis of right foot History of MRSA infection Diabetes mellitus Asthma Pulmonary hypertension SLE (systemic lupus erythematosus) Home Medications ?Medication ?Instructions ?Recorded ?Last Taken ?Type duloxetine 60 mg capsule,delayed 60 mg PO QHS depression 11/26/12 10/22/23 History release insulin regular hum U-500 conc 500 2.2 units subcut CONT insulin pump 10/02/15 10/23/23 History unit/mL subcutaneous soln trazodone 100 mg tablet 150 mg PO QHS sleep 12/27/15 10/22/23 History ergocalciferol (vitamin D2) 1,250 50,000 unit PO QWEEK supplement 01/24/16 10/16/23 History mcg (50,000 unit) capsule albuterol sulfate 2.5 mg/3 mL 2.5 mg inhalation Q4H PRN PRN 06/09/16 09/01/16 History (0.083 %) solution for nebulization Wheezing gabapentin 800 mg tablet 800 mg PO TID neuropathy 05/19/17 10/22/23 History rosuvastatin 10 mg tablet 40 mg PO QHS cholesterol 06/03/17 10/22/23 History magnesium oxide 400 mg (241.3 mg 400 mg PO DAILYCM supplement 07/30/18 10/22/23 History magnesium) tablet hydroxyzine pamoate 50 mg capsule 50 mg PO TID PRN Anxiety 02/20/20 10/22/23 History duloxetine 30 mg capsule,delayed 30 mg PO DAILY depression 05/09/20 10/22/23 History release ondansetron 4 mg disintegrating 8 mg PO Q8H PRN PRN Nausea 09/03/21 01/11/24 History tablet diphenoxylate-atropine 2.5 1 tab PO BID PRN diarrhea #180 tabs 08/04/22 10/22/23 Rx mg-0.025 mg tablet (Lomotil) hyoscyamine sulfate 0.125 mg tablet 0.125 mg PO BID-QID PRN abdominal 08/04/22 Unknown Rx pain #360 tabs albuterol sulfate 90 mcg/actuation 2 puff inhalation Q4-6H PRN 02/26/23 Unknown History aerosol inhaler (ProAir HFA) shortness of breath or wheezing fenofibrate nanocrystallized 48 mg 48 mg PO DAILY . 08/11/23 10/22/23 History tablet cinacalcet 30 mg tablet 30 mg PO DAILY . 10/23/23 10/22/23 History midodrine 10 mg tablet 20 mg PO 4XD PRN . 10/23/23 04/12/24 History omeprazole 40 mg capsule,delayed 40 mg PO DAILY GERD 10/23/23 10/22/23 History release cefepime 1 gram/50 mL in dextrose 1 g IV DAILY 14 days 10/29/23 Unknown Rx 5 % intravenous piggyback oxycodone-acetaminophen 5 mg-325 1 tab PO Q6H PRN pain 5 days #20 10/30/23 Unknown Rx mg tablet (Percocet) tabs apixaban 5 mg tablet (Eliquis) 5 mg PO BID #60 TABLETS 10/28/24 02/22/25 Rx budesonide 3 mg 9 mg (3 x 3 mg) PO DAILY #90 caps 12/18/23 Unknown Rx capsule,delayed,extended release fludrocortisone 0.1 mg tablet 0.1 mg PO DAILY #30 TABLETS 12/18/23 Unknown Rx calcitriol 0.25 mcg capsule 0.25 mcg PO QDAY 02/03/24 Unknown History calcitriol 0.5 mcg capsule 0.5 mcg PO QDAY . 02/03/24 Unknown History epoetin regan-epbx 2,000 unit/mL 3,800 unit subcut MO . 02/03/24 Unknown History injection solution (Retacrit) insulin aspart U-100 100 unit/mL See Protocol subcut ACHS diabetes 02/03/24 Unknown History (3 mL) subcutaneous pen mesalamine 500 mg capsule,extended 1,000 mg PO BID 02/03/24 Unknown History release (Pentasa) vitamin B complex-vitamin C-folic 1 tab PO QDAY 02/03/24 Unknown History acid 0.8 mg tablet (Nephro-[place]) promethazine 12.5 mg tablet 12.5 mg PO Q6H PRN nausea and 02/26/24 04/12/24 Rx vomiting #20 tabs lactulose 10 gram/15 mL oral 10 g (15 mL) PO BID #3,785 mL 03/15/24 Unknown Rx solution risankizumab-rzaa 360 mg/2.4 mL 360 mg (2.4 mL) subcut .COMPLEX . 04/11/24 Unknown Rx (150 mg/mL) subcut wearable #2.4 mL injector (Skyrizi) Allergy/AdvReac Type Severity Reaction Status Date / Time atorvastatin (From Lipitor) AdvReac Severe Vomiting Verified 04/12/24 12:27 Family History Mother Hypertension Cancer skin Grandmother Hypertension Diabetes Brother Cancer NHL Arthritis Brother Arthritis Surgical History Hx of BKA Status post insertion of spinal cord stimulator S/P arteriovenous (AV) fistula repair S/P arteriovenous (AV) fistula creation History of lithotripsy History of below-knee amputation of left lower extremity History of eye surgery History of temporal artery biopsy History of lymph node biopsy History of liver biopsy Partial nontraumatic amputation of right foot History of amputation of hallux History of carpal tunnel surgery History of hernia repair History of cholecystectomy History of hysterectomy History of tubal ligation Status post transmetatarsal amputation of right foot Social History Smoking Status: Never smoker second hand exposure: Yes alcohol intake: current details: rare substance use type: does not use Review of Systems (Anesthesia) ROS Narrative System reviewed and no additional complaints, except as documented.
[2024-04-12 13:05] LABS: Bedside Glucose 198 mg/dL (74-106)
--- NOTE | 2024-04-12 13:12 | HP.PCM_ITS ---
HPI - General General Date of Admission: 04/12/24 Date of Service: 04/12/24 Chief Complaint: GERD HPI Narrative FORD HESTER, is a 53 F who presentsFORD HESTER, is a 53 F who presents for the evaluation of GERD and intermittent abdominal pain Hematology, anemia; Nephrology, CKD IV, referred for kidnsey transplant; lupus *BGI established 4..22 with N/V, alternating constipation and urgent loose stools, lower abd pain/cramping and bloating. Dicyclomine helpful with loose stools. Reglan did not change N/V; Zofran moderately helpful with severity. Reports history of liver disease wit liver biopsy 10 years prior. EGD and colonoscopy which she reports as normal. ? Biochemical LFT, LDH, haptoglobin, ferritin, ceruloplasmin, copper, AFP, coag, ammonia, YANNA comp, ANCA, celiac, hepatitis, HIV, GAME without pertinent abnormality. ? ESR H38, CRP H14.3, globulin H4.3, gastrin H243 ? US and elastography 06.21.21 hepatic measurement 24.9cm with stiffness 7.3kPa ? CT abd/pel 08.26.21 hepatomegaly and steatosis; s/p cholecystectomy; colonic diverticulosis. ? Capsule endoscopy 07.02.21 noting enteritis throughout study; mu ltiple AVM. ? OV 6.04.09 ongoing symptoms; continue liver workup. ? Biochemical TSH, T3, T4, C4, CH50, CLARITA, IBD without pertinent abnormality. ? A1c H7.1, PTH H203.7, C3 H175 ? Stool calprotectin, elastase, fat, C.difficile, EP, lactoferrin, O/P, giardia, H.Pylori WNL ? Biochemical Hepatitis B WNL? TB + ID established; OK to proceed with IBD management. OV 09.06.21 Colestipol, Lomotil, dicyclomine ineffective. Continues to have loose stools with urgency and incontinence, abd pain. Start mesalamine, cipro/flagyl, hyoscyamine. ? CXR 07.03.22 WNL. OV 10.23.21 Recommend Entyvio start for Crohn?s disease. Continue with latent TB workup. Prednisone contraindicated r/t previous hospitalization. ? Biochemical CBC OV 12.30.21 Recommend Inflectra start. OV 02.25.22 Insurance will approve Humira versus Skyrizi; Humira concern for lupus like syndrome. Start Skyrizi. ? Biochemical Liver profile WNL OV 05.28.22 Crohn?s symptom improvement since start of Skyrizi. ? US and elastography 06.16.22 hepatic measurement 25.8cm with fatty infiltration, stiffness 11.5 kPa. Refer to [facility] for possible pancreatic transplant; 09.03.22 however the team met and felt the transplant was not in her best interest. OV 02.04.23- Pt reports starting in home dialysis 3 months ago. Says since then she has started having RT sided abdominal pain and urgent diarrhea. Has BM multiple times a day. Unsure if related to the dialysis or her Skyrizi. OV 07.10.23 pt presents for follow up. Reports having headaches after dialysis. Pt reports N/V 3x a week; states this has been an ongoing issue. Pt reports having Shan horses in her stomach when she has dialysis. Pt continues with Skyrizi, hyoscyamine, mesalamine, omeprazole, and ursodiol. OV 01.28.24 Pt has had issues over the past couple of days with nausea, epigastric pain and bloating. She is nauseous daily and vomiting at least once a day. She continues taking skyrizi, hyoscyamine, ursodiol and omeprazole. She is unsure if it feels like a Crohns flare. [facility] Medical History (Updated 04/12/24 @ 13:[address] Mccloud Friend, DO) MRSA infection Open wound History of steroid therapy Thyroid disease History of renal dialysis History of renal disease Low iron Hematoma Syncope History of Crohn's disease GERD (gastroesophageal reflux disease) Chronic cough Leg cramps History of edema History of atrial fibrillation Secondary hyperparathyroidism DM type 2 (diabetes mellitus, type 2) Depression Asthma Atrial fibrillation Migraines Stroke/cerebrovascular accident ESRD (end stage renal disease) on dialysis Lung nodule seen on imaging study Blindness Cataract (lens) fragments in eye following cataract surgery, bilateral Acute bronchitis, unspecified Atrial fibrillation, controlled Essential hypertension Uses prosthesis Seasonal allergies Wears glasses Anxiety Insulin dependent diabetes mellitus Uses wheelchair Arthritis DVT (deep venous thrombosis) History of Holter monitoring High cholesterol TIA (transient ischemic attack) Seizures Dietary restriction History of hiatal hernia Non-smoker CPAP (continuous positive airway pressure) dependence Sleep apnea Shortness of breath on exertion Hypertension History of echocardiogram History of stress test Cardiology follow-up encounter Positive QuantiFERON-TB Gold test Crohn's disease Hx of pancreatitis Hepatosplenomegaly Enteritis Nausea and vomiting Alternating constipation and diarrhea Diarrhea HINTON (nonalcoholic steatohepatitis) CKD (chronic kidney disease) Viral gastroenteritis Acute right flank pain Anemia in chronic kidney disease (CKD) COVID-19 virus detected Pneumonia due to COVID-19 virus Below-knee amputation of left lower extremity Osteomyelitis of left foot History of stroke COPD (chronic obstructive pulmonary disease) IBS (irritable bowel syndrome) GERD (gastroesophageal reflux disease) Diastolic dysfunction Cellulitis of left foot Iron (Fe) deficiency anemia Acute kidney injury Right middle lobe pneumonia Hypomagnesemia Osteomyelitis of right foot Peripheral neuropathy Depression Infection of right great toe due to methicillin resistant Staphylococcus aureus (MRSA) Cellulitis of right foot History of MRSA infection Diabetes mellitus Asthma Pulmonary hypertension SLE (systemic lupus erythematosus) Home Medications ?Medication ?Instructions ?Recorded ?Last Taken ?Type duloxetine 60 mg capsule,delayed 60 mg PO QHS depressi on 11/26/12 10/22/23 History release insulin regular hum U-500 conc 500 2.2 units subcut CO NT insulin pump 10/02/15 10/23/23 History unit/mL subcutaneous soln trazodone 100 mg tablet 150 mg PO QHS sleep 12/27/15 10/22/23 History ergocalciferol (vitamin D2) 1,250 50,000 unit PO QWEEK supplement 01/24/16 10/16/23 History mcg (50,000 unit) capsule albuterol sulfate 2.5 mg/3 mL 2.5 mg inhalation Q4H TN N PRN 06/09/16 09/01/16 History (0.083 %) solution for nebulization Wheezing gabapentin 800 mg tablet 800 mg PO TID neuropathy 05/0310/22/23 History rosuvastatin 10 mg tablet 40 mg PO QHS cholesterol 10/22/23 History magnesium oxide 400 mg (241.3 mg 400 mg PO DAILYCM sup plement 07/30/18 10/22/23 History magnesium) tablet hydroxyzine pamoate 50 mg capsule 50 mg PO TID PRN Anx iety 02/20/20 10/22/23 History duloxetine 30 mg capsule,delayed 30 mg PO DAILY depres giles 05/09/20 10/22/23 History release ondansetron 4 mg disintegrating 8 mg PO Q8H PRN PRN Na usea 09/03/21 01/11/24 History tablet diphenoxylate-atropine 2.5 1 tab PO BID PRN diarrhea # 180 tabs 08/04/22 10/22/23 Rx mg-0.025 mg tablet (Lomotil) hyoscyamine sulfate 0.125 mg tablet 0.125 mg PO BID-QI D PRN abdominal 08/04/22 Unknown Rx pain #360 tabs albuterol sulfate 90 mcg/actuation 2 puff inhalation Q 4-6H PRN 02/26/23 Unknown History aerosol inhaler (ProAir HFA) shortness of breath or wh eezing fenofibrate nanocrystallized 48 mg 48 mg PO DAILY . 10/22/23 History tablet cinacalcet 30 mg tablet 30 mg PO DAILY . 10/23/23 History midodrine 10 mg tablet 20 mg PO 4XD PRN . 10/23/23 04/12/24 History omeprazole 40 mg capsule,delayed 40 mg PO DAILY GERD 0 10/23/23 10/22/23 History release cefepime 1 gram/50 mL in dextrose 1 g IV DAILY 14 days 10/29/23 Unknown Rx 5 % intravenous piggyback oxycodone-acetaminophen 5 mg-325 1 tab PO Q6H PRN pain 5 days #20 10/30/23 Unknown Rx mg tablet (Percocet) tabs apixaban 5 mg tablet (Eliquis) 5 mg PO BID #60 TABLETS 12/14/23 04/09/24 Rx budesonide 3 mg 9 mg (3 x 3 mg) PO DAILY #90 caps 12/18/23 Unknown Rx capsule,delayed,extended release fludrocortisone 0.1 mg tablet 0.1 mg PO DAILY #30 TABL ETS 12/18/23 Unknown Rx calcitriol 0.25 mcg capsule 0.25 mcg PO QDAY 02/03/24 Unknown History calcitriol 0.5 mcg capsule 0.5 mcg PO QDAY . 02/03/24 Unknown History epoetin regan-epbx 2,000 unit/mL 3,800 unit subcut MO . 02/03/24 Unknown History injection solution (Retacrit) insulin aspart U-100 100 unit/mL See Protocol subcut [facility] diabetes 02/03/24 Unknown History (3 mL) subcutaneous pen mesalamine 500 mg capsule,extended 1,000 mg PO BID Unknown History release (Pentasa) vitamin B complex-vitamin C-folic 1 tab PO QDAY Unknown History acid 0.8 mg tablet (Nephro-[place]) promethazine 12.5 mg tablet 12.5 mg PO Q6H PRN nausea and 02/26/24 04/12/24 Rx vomiting #20 tabs lactulose 10 gram/15 mL oral 10 g (15 mL) PO BID #3,78 5 mL 03/15/24 Unknown Rx solution risankizumab-rzaa 360 mg/2.4 mL 360 mg (2.4 mL) subcut .COMPLEX . 04/11/24 Unknown Rx (150 mg/mL) subcut wearable #2.4 mL injector (Skyrizi) Allergy/AdvReac Type Severity Reaction Status Date / Time atorvastatin (From Lipitor) AdvReac Severe Vomiting Verified 04/12/24 12:27 Family History Mother Hypertension Cancer skin Grandmother Hypertension Diabetes Brother Cancer NHL Arthritis Brother Arthritis Surgical History Hx of BKA Status post insertion of spinal cord stimulator S/P arteriovenous (AV) fistula repair S/P arteriovenous (AV) fistula creation History of lithotripsy History of below-knee amputation of left lower extremity History of eye surgery History of temporal artery biopsy History of lymph node biopsy History of liver biopsy Partial nontraumatic amputation of right foot History of amputation of hallux History of carpal tunnel surgery History of hernia repair History of cholecystectomy History of hysterectomy History of tubal ligation Status post transmetatarsal amputation of right foot Social History Smoking Status: Never smoker second hand exposure: Yes alcohol intake: current details: rare substance use type: does not use ROS Constitutional Constitutional: Denies fatigue, fever(s), poor appetite, weight gain or weight loss Gastrointestinal Gastrointestinal: Denies belching, bloating, change in bowel habits, change in stool character, chewing difficulty, coffee ground emesis, constipation, cramping, diarrhea, dyspepsia, dysphagia, early satiety, excessive flatus, fecal incontinence, heartburn, hematemesis, hematochezia, hemorrhoids, loose stools, melena, nausea, odynophagia, rectal bleeding, tenesmus, vomiting or weight changes Vital Signs Vital Signs Vital Signs: 04/12/24 12:29 04/12/24 12:29 04/12/24 13:00 Temperature 97.6 F L 97.6 F L Temperature Source Temporal Pulse Rate 92 92 Respiratory Rate 16 16 Respiratory Pattern Normal Blood Pressure 117/65 117/65 Blood Pressure Mean 82 Blood Pressure Source Monitor Blood Pressure Position Semi-Fowlers Blood Pressure Location Right Arm Pulse Ox 92 92 Oxygen Delivery Method Nasal Cannula Room Air Oxygen Flow Rate (L/min) 2 2 Weight Weight: 209 lb 7.026 oz Body Mass Index (BMI) 33.7 Physical Exam Const alert, oriented x3, no apparent distress and healthy appearing General Appearance: cooperative GI normal to inspection, nondistended, normoactive bowel sounds, soft to palpation, non-tender and non-distended Percussion: normal to percussion Rectal Exam: deferred Results Lab / Micro Data Labs: Laboratory Results - last 24 hr 04/12/24 12:37: POC Glucose 198 H Assessment & Plan Assessment/Plan (1) Abdominal pain: (2) GERD (gastroesophageal reflux disease): PLAN: Assessment and Plan Assessment and Plan (1) Fatty liver: Status: Acute (2) Crohn's disease: Status: Acute Qualifiers: Digestive disease complication type: without complication Gastroi ntestinal tract location: small intestine Qualified Code(s): K50.00 - Crohn's disease of small intestine without complications Plan: This is a 53 yo female pt here today for f/u. Pt has Crohns disease and is on Skyrizi. Her lower GI symptoms are under control. However she has had issues with nausea and upper abd pain recently. She has not had an EGD in many years. She will be scheduled for this to assess her upper GI tract for esophagitis, gastritic or ulcers. In the mean time she will take promethazine and omeprazole to control her nausea and vomiting. -EGD -Increase omeprazole -Promethazine PRN -f/u after procedure Orders: Orders ABD Limited w/ Elastography Today K76.0 - Fatty (change of) liver, not elsewhere classified Medications: New promethazine 12.5 mg PO Q6H PRN 20 tabs 2RF nausea and vomiting omeprazole 40 mg PO BID 90 caps 2RF
--- NOTE | 2024-04-12 13:15 | EGD_PTH ---
PATIENT: FORD HESTER LOC: EN U#:[id number] AGE/SX: 53/F ROOM: RE04/12/[address]: Dr. Rogers Cox DO : 1970 BED: DIS: 04/12/2024 SPEC #: [id number] RECD: 04/12/24 17:03 STATUS: HEATHER MERARY #: [id number] LOLITA: 04/12/24 13:[address]: Rogers Cox DEPT: SURGICAL PATHOLOGY RECD BY: Pina Khan ENTERED: 04/13/24 08:28 SP TYPE: EGD BIOPSY SREE DR: Dr. Johann Jimenez MD Tissues: A - Duodenum, NOS B - COLON BIOPSY Procedures: Surgery Specimen Level IV HEADER OPERATION: EGD, biopsy PRE-OP DIAGNOSIS: GERD, fatty liver, Crohn's disease TISSUE SUBMITTED: A- Duodenum biopsy, B- Lesser curvature biopsy MICROSCOPIC DIAGNOSIS A. Duodenum, biopsy: Fragments of duodenal mucosa with chronic inflammation and congestion. B. Lesser curvature, biopsy: Fragments of gastric mucosa with mild chronic inflammation and calcifications. See comment. 04/14/2024 COMMENT B. Calcifications are noted in the superficial mucosa. The results of immunohistochemistry for Helicobacter pylori will be reported separately ([id number]). Correlation with clinical, endoscopic findings and appropriate follow up are necessary. Case has been reviewed in consultation with Dr. Yates who concurs with the above diagnosis. IDC:[email or web address] MICROSCOPIC DESCRIPTION Slides are reviewed. GROSS DESCRIPTION A. Received in fixative is one container labeled with the patient's name and designated Duodenum biopsy. The specimen consists of two irregular fragments of light low soft tissue that in aggregate measure 0.9 x 0.3 x 0.2 cm. The specimen is totally submitted in one cassette. B. Received in fixative is one container labeled with the patient's name and designated Lesser curvature biopsy. The specimen consists of multiple irregular fragments of light low soft tissue that in aggregate measure 1.7 x 0.2 x 0.2 cm. The specimen is totally submitted in one cassette. BW.mr 04/13/2024 TC:3 CPT:08258s0
--- NOTE | 2024-04-12 13:44 | OP.CCLET_ITS ---
04/12/2024 Johann Jimenez MD Re : Upper GI endoscopy procedure for Wendy Lux Dear Dr. Jimenez This procedure was performed on Friday, April 12, 2024. My impressions and recommendations are as follows: Impressions : - Normal esophagus. - Nodular mucosa in the lesser curvature of the stomach. Biopsied. - Erythematous duodenopathy. Biopsied. Recommendations : - Discharge patient to home. - Resume previous diet. - Continue present medications. - Await pathology results. My findings are described in the full procedure note, which is enclosed. If I can be of further assistance, please feel free to contact me at . Sincerely, Rogers Cox, 04/12/2024 1:44:17 PM This report has been signed electronically.
--- NOTE | 2024-04-12 13:44 | OP.EGD_ITS ---
Patient Name: Wendy Lux Procedure Date: 04/12/2024 1:15 PM Date of : 1970 Age: 53 Procedure: Upper GI endoscopy Indications: Epigastric abdominal pain Providers: Rogers Cox DO Referring MD: Johann Jimenez MD Medicines: Monitored Anesthesia Care Patient Profile: This is a 53 year old female. Refer to note in patient chart for documentation of history and physical. Patient has symptoms of acute abdominal distention, acute epigastric abdominal pain and acute dyspepsia. Complications: No immediate complications. Procedure: Pre-Anesthesia Assessment: - Prior to the procedure, a History and Physical was performed, and patient medications and allergies were reviewed. The patient is competent. The risks and benefits of the procedure and the sedation options and risks were discussed with the patient. All questions were answered and informed consent was obtained. Patient identification and proposed procedure were verified by the physician in the pre-procedure area. Mental Status Examination: alert and oriented. Airway Examination: normal oropharyngeal airway and neck mobility. Respiratory Examination: clear to auscultation. CV Examination: normal. Prophylactic Antibiotics: The patient does not require prophylactic antibiotics. Prior Anticoagulants: The patient has taken no anticoagulant or antiplatelet agents. ASA Grade Assessment: III - A patient with severe systemic disease. After reviewing the risks and benefits, the patient was deemed in satisfactory condition to undergo the procedure. The anesthesia plan was to use monitored anesthesia care (MAC). Immediately prior to administration of medications, the patient was re-assessed for adequacy to receive sedatives. The heart rate, respiratory rate, oxygen saturations, blood pressure, adequacy of pulmonary ventilation, and response to care were monitored throughout the procedure. The physical status of the patient was re-assessed after the procedure. After obtaining informed consent, the endoscope was passed under direct vision. Throughout the procedure, the patient's blood pressure, pulse, and oxygen saturations were monitored continuously. The gastroscope was introduced through the mouth, and advanced to the second part of duodenum. The upper GI endoscopy was accomplished without difficulty. The patient tolerated the procedure well. Scope In: 1:29:30 PM Scope Out: 1:34:58 PM Total Procedure Duration Time 0 hours 5 minutes 28 seconds Findings: The examined esophagus was normal. Localized nodular mucosa was found on the lesser curvature of the stomach. Biopsies were taken with a cold forceps for histology. Verification of patient identification for the specimen was done. Biopsies were taken with a cold forceps for Helicobacter pylori testing. Verification of patient identification for the specimen was done. Estimated blood loss was minimal. Patchy mildly erythematous mucosa without active bleeding and with no stigmata of bleeding was found in the duodenal bulb. Biopsies were taken with a cold forceps for histology. Verification of patient identification for the specimen was done. Estimated blood loss was minimal. Impression: - Normal esophagus. - Nodular mucosa in the lesser curvature of the stomach. Biopsied. - Erythematous duodenopathy. Biopsied. Recommendation: - Discharge patient to home. - Resume previous diet. - Continue present medications. - Await pathology results. Procedure Code(s): --- Professional --- 22710, Esophagogastroduodenoscopy, flexible, transoral; with biopsy, single or multiple CPT copyright 2021 [employer]. All rights reserved. The codes documented in this report are preliminary and upon holiday detector operator review may be revised to meet current compliance requirements. Rogers Cox DO 04/12/2024 1:44:17 PM This report has been signed electronically. Number of Addenda: 0 Note Initiated On: 04/12/2024 1:15 PM
--- NOTE | 2024-04-12 13:45 | PCM.POST.ANE ---
Anesthesia: Postop Eval I Current Vital Signs Temperature: 98.3 F Pulse Rate: 94 Blood Pressure: 98/51 Respiratory Rate: 12 Pulse Ox: 92 Oxygen Delivery Method: Room Air Assessment Airway patent: Yes Spontaneous unlabored respirations: Yes Mental status: Asleep nausea: No Vomiting: No Anesthesia Complication: No Fluid Hydration Crystalloid volume administer (ml): 30 Total IV fluid infused: 30 Progress Note Anesthesia document: Postop Eval 1 completed: Yes
--- NOTE | 2024-04-12 18:43 | PCM.POSTANE2 ---
Anesthesia Postop Eval I Sum Postop Eval Completion status Anesthesia document: Postop Eval 1 completed: Yes Anesthesia Postop Eval I Summary Anesthesia Postop Eval I Summary: Anesthesia Postop Eval I: Assessment Summary Airway patent Yes 04/12/24 13:48 [email or web address] Spontaneous unlabored Yes 04/12/24 13:48 [email or web address] respirations Mental status Asleep 04/12/24 13:48 [email or web address] nausea No 04/12/24 13:48 [email or web address] Vomiting No 04/12/24 13:48 [email or web address] Anesthesia Postop Eval I: Fluid Summary Crystalloid volume administer 30 04/12/24 13:48 [email or web address] (ml) Colloids volume administered ( ml) Blood Product volume administered (ml) Total IV fluid infused 30 04/12/24 13:48 [email or web address] Anesthesia Postop Eval I: Summary Notes Anesthesia Complication No 04/12/24 13:48 [email or web address] Anesthesia Complication Comment: Post-operative progress note Anesthesia: Postop Eval II Evaluation Mental status: Awake and Calm Pain Level: 0 nausea: No Vomiting: No Complications Anesthesia Complication: No
== END 2024-04-12 15:46 | disposition home or self-care (01) ==
LOC: EN 12:11 → AC 12:20
PROVIDERS: PCP Family Medicine; Referring Provider Family Medicine; Visit Provider Internal Medicine Gastroenterology
PROC: 0DJ08ZZ Inspection of Upper Intestinal Tract, Via Natural or Artificial Opening Endoscopic (ICD-10-PCS; CPT 43235; principal; 2024-04-12 13:10)
DX: K21.9 Gastro-esophageal reflux disease without esophagitis (principal); N18.6 End stage renal disease; K50.00 Crohn's disease of small intestine without complications; J44.9 Chronic obstructive pulmonary disease, unspecified; I48.91 Unspecified atrial fibrillation; Z79.4 Long term (current) use of insulin; E11.22 Type 2 diabetes mellitus with diabetic chronic kidney disease; Z90.710 Acquired absence of both cervix and uterus; Z99.2 Dependence on renal dialysis; Z90.49 Acquired absence of other specified parts of digestive tract; Z86.73 Personal history of transient ischemic attack (TIA), and cerebral infarction without residual deficits; F41.9 Anxiety disorder, unspecified; G47.30 Sleep apnea, unspecified; Z99.89 Dependence on other enabling machines and devices; F32.A Depression, unspecified; Z79.899 Other long term (current) drug therapy; Z79.01 Long term (current) use of anticoagulants; Z98.51 Tubal ligation status; R10.9 Unspecified abdominal pain; K31.89 Other diseases of stomach and duodenum
CPT/HCPCS: 43239; 82962; 88305; 88342; A4216; J2405

== ENCOUNTER 2024-04-20 07:13 | Day surgery (SDC) | payer MEDICARE, SELFPAY ==
[2024-04-19 12:11] VITALS: BMI 34.5
--- NOTE | 2024-04-20 15:54 | OP.PCM_ITS ---
Operative Report (Standard) Operative Information Date of Procedure: 04/20/24 Pre-Operative Diagnosis: End-stage renal disease Post-Operative Diagnosis: Same Surgery/Procedure Performed: Insertion right IJ tunneled central venous catheter for dialysis access social insurance adviser: No Type of Anesthesia: Local and Sedation,Conscious Procedure Start Time: 08:30 Procedure Stop Time: 10:00 Select all DRAINS/GRAFTS/IMPLANTS that apply: Implanted device Implanted device details: Palindrome 19 cm Estimated Blood Loss: 3 Specimen collected: No Description of surgery: HPI: Patient is a 53-year-old female with end-stage renal disease currently on dialysis via a left forearm AV fistula. She has had recurrent issues and requires a major revision which required her not to use her access for a period of time. She presents now for tunneled catheter placement. Description of procedure: Upon obtaining form consent and verification correct patient procedure site patient taken to the Transfer Clerk was positioned prepped and draped in usual sterile fashion. Time was performed consultation administered Versed and fentanyl. Skin overlying the right internal jugular vein was Nestabs 1% lidocaine the vessel accessed ultrasound guidance with a micropuncture needle wire. This was exchanged for micropuncture sheath through which a J-wire was advanced traversing the superior vena cava and ultimately to the inferior vena cava. The micropuncture sheath was then exchanged for the serial dilators for the tunneled catheter ultimately upsized to the peel-away sheath. Next the tunneled catheter was brought on the field prep for manufactures instructions. Skin incision was made on the superior aspect of the chest at the intended site of tunnel exit and the catheter utilized to pull through to the IJ puncture site. The catheter was then advanced into the peel-away sheath which was then withdrawn and split while continuously advancing the catheter into position. Once the peel-away sheath was removed the catheter was then bluntly advanced into the deeper space of the neck though there was significant scar from prior catheters. We were ultimately able to get the catheter in satisfactory position and improve the amount of acute angulation at the neck access site at which point the catheter was easily drawn and flushed. Each of the catheter lumens were then flushed with heparinized saline and caps placed. The neck puncture site incision closed with 3-0 Vicryl followed by Dermabond. The catheter was then secured to the skin and the upper aspect of the chest. Dry sterile dressings were then applied and the patient was taken recovery with plan discharged to home. Surgical Findings: See above Complications Complications: No
== END 2024-04-20 10:25 | disposition home or self-care (01) ==
PROVIDERS: PCP Family Medicine; Referring Provider Surgery Trauma Surgery; Visit Provider Surgery Trauma Surgery
DX: Z45.2 Encounter for adjustment and management of vascular access device (principal); N18.6 End stage renal disease; I12.0 Hypertensive chronic kidney disease with stage 5 chronic kidney disease or end stage renal disease; I48.91 Unspecified atrial fibrillation; Z79.4 Long term (current) use of insulin; E11.22 Type 2 diabetes mellitus with diabetic chronic kidney disease; E11.42 Type 2 diabetes mellitus with diabetic polyneuropathy; E78.00 Pure hypercholesterolemia, unspecified; Z99.2 Dependence on renal dialysis; Z79.01 Long term (current) use of anticoagulants; Z79.899 Other long term (current) drug therapy; Z86.16 Personal history of COVID-19
CPT/HCPCS: 36558; 77001; 99152; 99153; C1894; C1769

== ENCOUNTER → 2024-04-22 | Outpatient (CLI) | payer MEDICARE, SELFPAY ==
--- NOTE | 2024-04-22 12:41 | ECHOCS_ITS ---
Reason For Study Reason For Study: DYSPNEA Procedure This was a 2D Doppler, Color Flow transthoracic echocardiogram. The study was technically difficult. Contrast injection was performed. Exam performed in department. Left Ventricle Normal LV size. Mild concentric left ventricular hypertrophy. The estimated ejection fraction is 60 %. Stage 1 diastolic dysfunction. No regional wall motion abnormalities noted. Right Ventricle Normal RV size. Normal systolic function. Atria The left and right atria are normal. Mitral Valve The mitral valve is structurally normal. No prolapse or stenosis seen. Tricuspid Valve Normal tricuspid valve. Unable to estimate RV systolic pressure due to insufficient tricuspid regurgitant envelope. Aortic Valve The aortic valve is not well visualized in the short axis view. There is no aortic stenosis. Pulmonic Valve The pulmonic valve is not well visualized. Great Vessels Normal sized aortic root. Pericardium/Pleural No pericardial effusion. Medication 22 gauge I.V. with prn adaptor inserted into right arm. Diluted definity 1.5ml given slow IV push to enhance endocardial definition. MMode/2D Measurements & Calculations LVIDd: 4.4 cm IVSd: 1.3 cm LVOT diam: 2.0 cm LVIDs: 2.8 cm LVPWd: 1.4 cm RVDd: 3.2 cm FS: 35.7 % LVOT area: 3.1 cm2 Ao root diam: 3.4 cm LAV(MOD-bp): 40.0 ml LVAd ap4: 29.9 cm2 LAV(MOD-bp) Indexed: 19.6 ml/m2 LVLd ap4: 7.6 cm LAV(MOD-sp2): 37.5 ml EDV(MOD-sp4): 97.6 ml LAV(MOD-sp4): 37.9 ml EDV(sp4-el): 100.1 ml LVAs ap4: 17.4 cm2 LVLs ap4: 6.6 cm ESV(MOD-sp4): 38.6 ml ESV(sp4-el): 39.2 ml EF(MOD-sp4): 60.4 % EF(sp4-el): 60.8 % SV(MOD-sp4): 59.0 ml SV(sp4-el): 60.8 ml LA A4 area: 15.2 cm2 SI(MOD-sp4): 28.9 ml/m2 LA dimension(2D): 3.6 cm RA A4 area: 9.1 cm2 Time Measurements MV dec time: 0.15 sec Doppler Measurements & Calculations MV E max john: 62.8 cm/sec Lat Peak E' John: 8.4 cm/sec Med Peak E' John: 5.8 cm/sec MV A max john: 90.2 cm/sec E/E' lat: 7.5 E/E' med: 10.8 MV E/A: 0.70 MV V2 max: 161.9 cm/sec MV dec slope: 415.9 cm/sec2 Ao V2 max: 168.3 cm/sec MV max P.5 mmHg Ao max P.4 mmHg MV V2 mean: 86.2 cm/sec Ao V2 mean: 123.3 cm/sec MV mean P.3 mmHg Ao mean P.8 mmHg MV V2 VTI: 30.6 cm Ao V2 VTI: 26.3 cm MVA(VTI): 1.8 cm2 AV (velocity ratio): 0.66 LUIS MIGUEL(I,D): 2.1 cm2 LUIS MIGUEL(V,D): 2.0 cm2 LV V1 max: 109.1 cm/sec SV(LVOT): 53.9 ml PA V2 max: 104.1 cm/sec LV V1 max P.8 mmHg PA V2 mean: 78.2 cm/sec LV V1 mean P.8 mmHg LV V1 mean: 78.4 cm/sec LV V1 VTI: 17.3 cm ECHO/Echo Complete W/ Contrast Interpretation Summary The estimated ejection fraction is 60 %. Stage 1 diastolic dysfunction. Structually normal valves. The study was technically difficult. Contrast injection was performed. Ordering Physician: Neftali Hernandez Referring Physician: Neftali Hernandez Performed By: Angela Theodore RCS
== END | disposition home or self-care (01) ==
LOC: CVS 12:41
PROVIDERS: PCP Family Medicine; Referring Provider Internal Medicine Cardiovascular Disease; Visit Provider Internal Medicine Cardiovascular Disease
DX: R06.09 Other forms of dyspnea (principal)
CPT/HCPCS: 93306; Q9957; A4216; C8929

== ENCOUNTER 2024-04-26 05:59 | Day surgery (SDC) | payer MEDICARE, SELFPAY ==
--- NOTE | 2024-04-18 10:49 | PAT.ANESEVAL ---
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 When Was Last Pacemaker Check QUESTION #4 FULL TEXT: You/Your Family Experience fever (hyperthermia) with Anesthesia Last Oral Intake Last Oral intake: Last Oral Intake NPO since Meds taken in AM with sips of water? Meds patient instructed to take am of surgery PONV PONV - dynamometer tester engine: PONV - dynamometer tester engine Female Yes 04/18/24 09:30 HX of Motion Sickness No 04/18/24 09:30 HX of N/V After Surgery No 04/18/24 09:30 Non-Smoker Yes 04/18/24 09:30 Duration of Surgery greater Yes 04/18/24 09:30 than 60 minutes Number of Risk Factors 3 04/18/24 09:30 PONV Score Moderate Risk 04/18/24 09:30 Height & Weight Height & Weight: Anesthesia: Height & Weight Height 5 ft 6 in 04/01/24 15:43 Respiratory Assessment Respiratory Assessment - dynamometer tester engine: Respiratory Tract Infection Hx - dynamometer tester engine Hx Respiratory Tract Infection No 04/18/24 09:30 STOP Sleep Apnea STOP Sleep Apnea - dynamometer tester engine: STOP Sleep Apnea - dynamometer tester engine Hx Hypertension No 04/18/24 09:30 Hx Sleep Apnea Yes 04/18/24 09:30 CPAP Yes: WITH 2L O2 04/18/24 09:30 BIPAP No 04/18/24 09:30 Do you snore loudly (louder than talking or can be heard Do you often feel tired/ fatigued/ sleepy during daytime? Has anyone observed you stop breathing during sleep? STOP Results Positive 04/18/24 09:30 QUESTION #5 FULL TEXT : Do you snore loudly (louder than talking or can be heard through closed doors)? 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 Specify any problems Hx of Preganancy in last 3 No 04/18/24 09:30 Months Nurse Filling Out Transfusion [email or web address] 04/18/24 09:30 & Questions: Date: 04/18/24 04/18/24 09:30 Time: 09:32 04/18/24 09:30 Patient unable to answer at this time (ie. confused, unrespo /Reproduction History /Reproductive History - dynamometer tester engine: /Reproductive Hx- dynamometer tester engine Hx Now Gestational Age (in weeks): EDC: Hx Hx Para Hx Section SAB No 04/18/24 09:30 [facility] Medical History (Updated 04/18/24 @ 09:50 by Kavita Waggoner) MRSA infection Open wound History of steroid therapy Thyroid disease History of renal dialysis History of renal disease Low iron Hematoma Syncope History of Crohn's disease GERD (gastroesophageal reflux disease) Chronic cough Leg cramps History of edema History of atrial fibrillation Secondary hyperparathyroidism DM type 2 (diabetes mellitus, type 2) Depression Asthma Atrial fibrillation Migraines Stroke/cerebrovascular accident ESRD (end stage renal disease) on dialysis Lung nodule seen on imaging study Blindness Cataract (lens) fragments in eye following cataract surgery, bilateral Atrial fibrillation, controlled Essential hypertension Uses prosthesis Seasonal allergies Wears glasses Anxiety Insulin dependent diabetes mellitus Uses wheelchair Arthritis DVT (deep venous thrombosis) History of Holter monitoring High cholesterol TIA (transient ischemic attack) Seizures Dietary restriction History of hiatal hernia Non-smoker CPAP (continuous positive airway pressure) dependence Sleep apnea Shortness of breath on exertion History of echocardiogram History of stress test Cardiology follow-up encounter Positive QuantiFERON-TB Gold test Crohn's disease Hx of pancreatitis Hepatosplenomegaly Enteritis Nausea and vomiting Alternating constipation and diarrhea Diarrhea HINTON (nonalcoholic steatohepatitis) CKD (chronic kidney disease) Viral gastroenteritis Acute right flank pain Anemia in chronic kidney disease (CKD) COVID-19 virus detected Pneumonia due to COVID-19 virus Below-knee amputation of left lower extremity Osteomyelitis of left foot History of stroke COPD (chronic obstructive pulmonary disease) IBS (irritable bowel syndrome) GERD (gastroesophageal reflux disease) Diastolic dysfunction Cellulitis of left foot Iron (Fe) deficiency anemia Acute kidney injury Right middle lobe pneumonia Hypomagnesemia Osteomyelitis of right foot Peripheral neuropathy Depression Infection of right great toe due to methicillin resistant Staphylococcus aureus (MRSA) Cellulitis of right foot History of MRSA infection Diabetes mellitus Asthma Pulmonary hypertension SLE (systemic lupus erythematosus) Home Medications ?Medication ?Instructions ?Recorded ?Last Taken ?Type duloxetine 60 mg capsule,delayed 60 mg PO QHS depression 11/26/12 10/22/23 History release insulin regular hum U-500 conc 500 2.2 units subcut CONT insulin pump 10/02/15 10/23/23 History unit/mL subcutaneous soln trazodone 100 mg tablet 150 mg PO QHS sleep 12/27/15 10/22/23 History ergocalciferol (vitamin D2) 1,250 50,000 unit PO QWEEK supplement 01/24/16 10/16/23 History mcg (50,000 unit) capsule albuterol sulfate 2.5 mg/3 mL 2.5 mg inhalation Q4H PRN PRN 06/09/16 09/01/16 History (0.083 %) solution for nebulization Wheezing gabapentin 800 mg tablet 800 mg PO TID neuropathy 05/19/17 10/22/23 History rosuvastatin 10 mg tablet 40 mg PO QHS cholesterol 06/03/17 10/22/23 History magnesium oxide 400 mg (241.3 mg 400 mg PO DAILYCM supplement 07/30/18 10/22/23 History magnesium) tablet hydroxyzine pamoate 50 mg capsule 50 mg PO TID PRN Anxiety 02/20/20 10/22/23 History duloxetine 30 mg capsule,delayed 30 mg PO DAILY depression 05/09/20 10/22/23 History release ondansetron 4 mg disintegrating 8 mg PO Q8H PRN PRN Nausea 09/03/21 01/11/24 History tablet diphenoxylate-atropine 2.5 1 tab PO BID PRN diarrhea #180 tabs 08/04/22 10/22/23 Rx mg-0.025 mg tablet (Lomotil) hyoscyamine sulfate 0.125 mg tablet 0.125 mg PO BID-QID PRN abdominal 08/04/22 Unknown Rx pain #360 tabs albuterol sulfate 90 mcg/actuation 2 puff inhalation Q4-6H PRN 02/26/23 Unknown History aerosol inhaler (ProAir HFA) shortness of breath or wheezing fenofibrate nanocrystallized 48 mg 48 mg PO DAILY . 08/11/23 10/22/23 History tablet cinacalcet 30 mg tablet 30 mg PO DAILY . 10/23/23 10/22/23 History midodrine 10 mg tablet 20 mg PO 4XD PRN . 10/23/23 04/12/24 History omeprazole 40 mg capsule,delayed 40 mg PO QHS GERD 10/23/23 10/22/23 History release cefepime 1 gram/50 mL in dextrose 1 g IV DAILY 14 days 10/29/23 Unknown Rx 5 % intravenous piggyback oxycodone-acetaminophen 5 mg-325 1 tab PO Q6H PRN pain 5 days #20 10/30/23 Unknown Rx mg tablet (Percocet) tabs apixaban 5 mg tablet (Eliquis) 5 mg PO BID #60 TABLETS 12/14/23 04/09/24 Rx budesonide 3 mg 9 mg (3 x 3 mg) PO DAILY #90 caps 12/18/23 Unknown Rx capsule,delayed,extended release fludrocortisone 0.1 mg tablet 0.1 mg PO DAILY #30 TABLETS 12/18/23 Unknown Rx calcitriol 0.25 mcg capsule 0.25 mcg PO QDAY 02/03/24 Unknown History calcitriol 0.5 mcg capsule 0.5 mcg PO QHS . 02/03/24 Unknown History epoetin regan-epbx 2,000 unit/mL 38,000 unit subcut MO . 02/03/24 Unknown History injection solution (Retacrit) insulin aspart U-100 100 unit/mL See Protocol subcut ACHS diabetes 02/03/24 Unknown History (3 mL) subcutaneous pen mesalamine 500 mg capsule,extended 1,000 mg PO BID 02/03/24 Unknown History release (Pentasa) vitamin B complex-vitamin C-folic 1 tab PO QDAY 02/03/24 Unknown History acid 0.8 mg tablet (Nephro-[place]) promethazine 12.5 mg tablet 12.5 mg PO Q6H PRN nausea and 02/26/24 04/12/24 Rx vomiting #20 tabs lactulose 10 gram/15 mL oral 10 g (15 mL) PO BID #3,785 mL 03/15/24 Unknown Rx solution risankizumab-rzaa 360 mg/2.4 mL 360 mg (2.4 mL) subcut .COMPLEX . 04/11/24 Unknown Rx (150 mg/mL) subcut wearable #2.4 mL injector (Skyrizi) fluticasone furoate 200 1 inh inhalation Q24H #60 ea 04/15/24 Unknown Rx mcg-vilanterol 25 mcg/dose inhalation powder (Breo Ellipta) Allergy/AdvReac Type Severity Reaction Status Date / Time atorvastatin (From Lipitor) AdvReac Severe Vomiting Verified 04/18/24 09:21 Family History Mother Hypertension Cancer skin Grandmother Hypertension Diabetes Brother Cancer NHL Arthritis Brother Arthritis Surgical History (Updated 04/18/24 @ 09:35 by Kavita Waggoner) History of colonoscopy Hx of BKA Status post insertion of spinal cord stimulator S/P arteriovenous (AV) fistula repair S/P arteriovenous (AV) fistula creation History of lithotripsy History of below-knee amputation of left lower extremity History of eye surgery History of temporal artery biopsy History of lymph node biopsy History of liver biopsy Partial nontraumatic amputation of right foot History of amputation of hallux History of carpal tunnel surgery History of hernia repair History of cholecystectomy History of hysterectomy History of tubal ligation Status post transmetatarsal amputation of right foot Social History Smoking Status: Never smoker second hand exposure: Yes alcohol intake: current details: rare substance use type: does not use Audit: Pertinent Findings Pertinent Findings EKG Perinent findings: 03/04/2024 sinus tachycardia poor R wave progression nonspecific STs Stress test pertinent findings: 09/22/2022 EF 64% normal perfusion stress test Echo (EF%) pertinent findings: 08/11/2022 EF 50% pulmonary artery pressure 28 Consult pertinent findings: Cardiology 03/04/2024 dizziness. Acute. Shortness of breath on exertion acute. Sleep apnea. Paroxysmal A-fib. End-stage renal disease on dialysis. Current EKG sinus rhythm Recommendation Anesthesia Recommendation Anesthesia recommendation: OPTIMIZED for anesthesia
[2024-04-26] VITALS (12 sets, daily range): BP systolic 81–116; BP diastolic 51–66; PULSE 82–99; RESP 14–20; TEMP 36.1–36.8; O2SAT 96–100; BMI 33.6
[2024-04-26 07:16] LABS: Bedside Glucose 91 mg/dL (74-106)
--- NOTE | 2024-04-26 07:23 | PCM.HP.BLA ---
History and Physical Allergies atorvastatin (From Lipitor) Adverse Reaction (Severe, Verified 04/04/24 15:33) Vomiting Medications ?Medication ?Instructions ?Recorded ?Confirmed ?Type duloxetine 60 mg capsule,delayed 60 mg PO QHS depression 11/26/12 04/04/24 History release insulin regular hum U-500 conc 500 2.2 units subcut CONT insulin pump 10/02/15 04/04/24 History unit/mL subcutaneous soln trazodone 100 mg tablet 150 mg PO QHS sleep 12/27/15 04/04/24 History ergocalciferol (vitamin D2) 1,250 50,000 unit PO QWEEK supplement 01/24/16 04/04/24 History mcg (50,000 unit) capsule albuterol sulfate 2.5 mg/3 mL 2.5 mg inhalation Q4H PRN PRN 06/09/16 04/04/24 History (0.083 %) solution for nebulization Wheezing gabapentin 800 mg tablet 800 mg PO TID neuropathy 05/19/17 04/04/24 History rosuvastatin 10 mg tablet 40 mg PO QHS cholesterol 06/03/17 04/04/24 History magnesium oxide 400 mg (241.3 mg 400 mg PO DAILYCM supplement 07/30/18 04/04/24 History magnesium) tablet hydroxyzine pamoate 50 mg capsule 50 mg PO TID PRN Anxiety 02/20/20 04/04/24 History duloxetine 30 mg capsule,delayed 30 mg PO DAILY depression 05/09/20 04/04/24 History release ondansetron 4 mg disintegrating 8 mg PO Q8H PRN PRN Nausea 09/03/21 04/04/24 History tablet diphenoxylate-atropine 2.5 1 tab PO BID PRN diarrhea #180 tabs 08/04/22 04/04/24 Rx mg-0.025 mg tablet (Lomotil) hyoscyamine sulfate 0.125 mg tablet 0.125 mg PO BID-QID PRN abdominal 08/04/22 04/04/24 Rx pain #360 tabs albuterol sulfate 90 mcg/actuation 2 puff inhalation Q4-6H PRN 02/26/23 04/04/24 History aerosol inhaler (ProAir HFA) shortness of breath or wheezing calcium acetate(phosphat bind) 667 2,668 mg PO TID binder 03/26/23 04/04/24 History mg capsule Held on 03/09/24. Instructions: Ordered fenofibrate nanocrystallized 48 mg 48 mg PO DAILY . 08/11/23 04/04/24 History tablet risankizumab-rzaa 360 mg/2.4 mL 360 mg (2.4 mL) subcut .COMPLEX . 08/21/23 04/04/24 Rx (150 mg/mL) subcut wearable #2.4 mL injector (Radha) cinacalcet 30 mg tablet 30 mg PO DAILY . 10/23/23 04/04/24 History midodrine 10 mg tablet 20 mg PO 4XD PRN . 10/23/23 04/04/24 History omeprazole 40 mg capsule,delayed 40 mg PO DAILY GERD 10/23/23 04/04/24 History release cefepime 1 gram/50 mL in dextrose 1 g IV DAILY 14 days 10/29/23 04/04/24 Rx 5 % intravenous piggyback oxycodone-acetaminophen 5 mg-325 1 tab PO Q6H PRN pain 5 days #20 10/30/23 04/04/24 Rx mg tablet (Percocet) tabs apixaban 5 mg tablet (Eliquis) 5 mg PO BID #60 TABLETS 12/14/23 04/04/24 Rx budesonide 3 mg 9 mg (3 x 3 mg) PO DAILY #90 caps 12/18/23 04/04/24 Rx capsule,delayed,extended release fludrocortisone 0.1 mg tablet 0.1 mg PO DAILY #30 TABLETS 12/18/23 04/04/24 Rx calcitriol 0.25 mcg capsule 0.25 mcg PO QDAY 02/03/24 04/04/24 History calcitriol 0.5 mcg capsule 0.5 mcg PO QDAY . 02/03/24 04/04/24 History epoetin regan-epbx 2,000 unit/mL 3,800 unit subcut QWEEK . 02/03/24 04/04/24 History injection solution (Retacrit) insulin aspart U-100 100 unit/mL See Protocol subcut ACHS diabetes 02/03/24 04/04/24 History (3 mL) subcutaneous pen mesalamine 500 mg capsule,extended 1,000 mg PO BID 02/03/24 04/04/24 History release (Pentasa) vitamin B complex-vitamin C-folic 1 tab PO QDAY 02/03/24 04/04/24 History acid 0.8 mg tablet (Nephro-[place]) promethazine 12.5 mg tablet 12.5 mg PO Q6H PRN nausea and 02/26/24 04/04/24 Rx vomiting #20 tabs lactulose 10 gram/15 mL oral 10 g (15 mL) PO BID #3,785 mL 03/15/24 04/04/24 Rx solution Is last menstrual period known: No Post menopausal: Yes Patient : No Have you fallen in the past year?: Yes PFSH Medical History ESRD (end stage renal disease) on dialysis Sleep apnea Secondary hyperparathyroidism DM type 2 (diabetes mellitus, type 2) Iron (Fe) deficiency anemia Crohn's disease Depression Asthma Atrial fibrillation Migraines Stroke/cerebrovascular accident Lung nodule seen on imaging study Blindness Cataract (lens) fragments in eye following cataract surgery, bilateral Acute bronchitis, unspecified Atrial fibrillation, controlled Essential hypertension Uses prosthesis Seasonal allergies Wears glasses Anxiety Insulin dependent diabetes mellitus Uses wheelchair Arthritis DVT (deep venous thrombosis) History of Holter monitoring High cholesterol TIA (transient ischemic attack) Seizures Dietary restriction History of hiatal hernia Non-smoker CPAP (continuous positive airway pressure) dependence Shortness of breath on exertion Hypertension History of echocardiogram History of stress test Cardiology follow-up encounter Positive QuantiFERON-TB Gold test Hx of pancreatitis Hepatosplenomegaly Enteritis Nausea and vomiting Alternating constipation and diarrhea Diarrhea HINTON (nonalcoholic steatohepatitis) CKD (chronic kidney disease) Viral gastroenteritis Acute right flank pain Anemia in chronic kidney disease (CKD) COVID-19 virus detected Pneumonia due to COVID-19 virus Below-knee amputation of left lower extremity Osteomyelitis of left foot History of stroke COPD (chronic obstructive pulmonary disease) IBS (irritable bowel syndrome) GERD (gastroesophageal reflux disease) Diastolic dysfunction Cellulitis of left foot Acute kidney injury Right middle lobe pneumonia Hypomagnesemia Osteomyelitis of right foot Peripheral neuropathy Depression Infection of right great toe due to methicillin resistant Staphylococcus aureus (MRSA) Cellulitis of right foot History of MRSA infection Diabetes mellitus Asthma Pulmonary hypertension SLE (systemic lupus erythematosus) Surgical History Hx of BKA Status post insertion of spinal cord stimulator S/P arteriovenous (AV) fistula repair S/P arteriovenous (AV) fistula creation History of lithotripsy History of below-knee amputation of left lower extremity History of eye surgery History of temporal artery biopsy History of lymph node biopsy History of liver biopsy Partial nontraumatic amputation of right foot History of amputation of hallux History of carpal tunnel surgery History of hernia repair History of cholecystectomy History of hysterectomy History of tubal ligation Status post transmetatarsal amputation of right foot Family History Mother Hypertension Cancer skinGrandmother Hypertension DiabetesBrother Cancer NHL ArthritisBrother Arthritis Social History Smoking Status: Never smoker second hand exposure: Yes alcohol intake: current details: rare substance use type: does not use HPI HPI HPI: FORD HESTER, is a 53 F who presents to the office today for further discussion of HD access issues. She has a left radial-cephalic fistula that has had multiple interventions for stenosis of the proximal segment. The access options are limited due to the short length of fistula with anastomosis in the mid forearm. She also recently had infiltration/hematoma of the venous return needle last week which has been stable. She had vein mapping to determine what alternatives may be available. ROS General General: Yes fatigue and weakness; No weight change, appetite, colon cancer or breast cancer HEENT HEENT: No difficulty swallowing, eye injury, eye surgery, swollen glands or hoarseness Endo Endocrine: Yes diabetes mellitus; No thyroid disease, thyroid cancer, Hair loss, heat intolerance or cold intolerance Skin Skin: No rash or changing moles Musc Musculoskeletal: Yes back problems, arthritis and joint pain; No rheumatoid arthritis or gout Cardio Cardiovascular: Yes atrial fibrillation and shortness of breat with exertion; No murmur, pacemaker, heart disease, high blood pressure, heart attack, heart stent, palpitations or chest pain Psych Psychiatric: Yes depression; No anxiety or hearing voices Resp Respiratory: Yes shortness of breath, Yes sleep apnea, Yes cough, No COPD, No asthma, No emphysema and Yes wheezing Gastro Gastrointestinal: Yes abdominal pain, Yes nausea or vomiting, Yes diarrhea, Yes constipation, No blood in stool, Yes acid reflux, Yes hemorrhoids, No ulcers, No gallbladder problem and No black,tarry stools Shakir Hematologic: Yes blood thinners, No blood disorders, No bleeding, Yes anemia and No blood clots Neuro Neurologic: No system reviewed and no additional complaints, except as documented, No as per HPI, No abnormal gait, No abnormal hearing, No abnormal movements, No abnormal speech, No behavioral changes, Yes burning sensations, No confusion, No convulsions, Yes disequilibrium, Yes dizziness, No localized weakness, No frequent falls, Yes headache(s), Yes lack of coordination, No loss of vision, No memory loss, Yes numbness, Yes other visual disturbances, Yes radicular pain, No restless legs, No sensory deficit, No syncope, Yes tingling, Yes tremor(s), Yes weakness and No other Exam Const General: cooperative, healthy appearing, comfortable, no acute distress and well developed Nutritional Appearance: well nourished Orientation: alert, awake and oriented x3 HENMT Head: normocephalic and atraumatic Ears: hearing grossly normal bilaterally Nose: external nose normal Eyes General: appearance normal, both eyes and all related structures EOM: EOM intact bilaterally Neck Neck: normal visual inspection, full ROM, no lymphadenopathy and trachea midline Lymphatic: no lymphadenopathy noted Resp Effort & Inspection: normal respiratory effort, able to speak in complete sentences, symmetric chest movement, no audible wheezes, not labored, no stridor and no use of accessory muscles Cardio Rate: regular rate Rhythm: regular rhythm Pulses: brachial pulses present and radial pulses present Skin General: no rashes or lesions noted and no erythema Wounds: no wounds Neuro Cranial Nerves: CN's II-XI intact bilaterally and EOM intact bilaterally Speech: speech normal Motor: strength 5/5 throughout Sensory Exam: no sensory deficits noted Psych Appearance: grossly normal and well kempt Mental Status: mental status grossly normal Mood: congruent mood Speech and Movement: speech and movement normal Thought Content: normal Judgment: judgment good Coding Level of Care Code Off vis,est,level 3 Diagnoses ESRD (end stage renal disease) on dialysis N18.6; Z99.2 Assessment and Plan Assessment and Plan (1) ESRD (end stage renal disease) on dialysis: Status: Chronic Plan: -left upper arm cephalic creation; ligate rad-ceph -duplex 1 week
--- NOTE | 2024-04-26 07:24 | PCM.PRE.AN2 ---
ASA Classification* ASA Classification ASA Classification: 4 Assessment & Plan Anesthesia* Anesthesia Assessment Anesthesia Assessment: Discussed sedation and/or anesthesia options, risks, benefits, and alternatives with patient/parents/legal guardian/POA. Questions invited. The patient/parents/legal guardian/POA seems to understand and agrees to proceed with anesthesia plan. Reviewed the physical assessment, medical history, allergy history and patient home medications list prior to surgery/procedure/anesthetic and documented any changes. Performed airway and anesthesia risk assessments. Anesthesia Type Anesthesia Type: MAC History Source History Obtained from:: Patient Anesthesia Focused Assessment* Temperature: 98.3 F Pulse Rate: 89 Blood Pressure: 116/56 Respiratory Rate: 18 Pulse Ox: 100 Oxygen Delivery Method: Nasal Cannula (2L) Oxygen Flow Rate (L/min): 2 Airway Assessment Mouth opens: >3 cm Mallampati Score: IV Teeth Condition: Intact and Chipped/Broken (bottom left) Neck Range of motion (ROM): Full ROM Focused Labs Anesthesia Preop lab: CBC WBC 8.7 K/mm3 (4.4-11.0) 04/01/24 17:40 04/01/24 RBC 2.63 M/mm3 (4.2-5.4) L 04/01/24 17:40 04/01/24 Hgb 8.5 g/dL (12.0-15.0) L 04/01/24 17:40 04/01/24 Hct 25.7 % (37-47) L 04/01/24 17:40 04/01/24 Plt Count 178 K/mm3 (150-450) 04/01/24 17:40 04/01/24 CHEMISTRY Potassium 3.7 mmol/L (3.5-5.1) 04/01/24 17:40 04/01/24 Sodium 137 mmol/L (136-145) 04/01/24 17:40 04/01/24 Magnesium 2.4 mg/dL (1.6-2.6) 10/26/23 06:15 10/26/23 Phosphorus 8.0 mg/dL (2.5-4.9) H 10/26/23 06:15 10/26/23 BUN 37 mg/dL (7-18) H 04/01/24 17:40 04/01/24 Creatinine 5.42 mg/dL (0.55-1.02) H 04/01/24 17:40 04/01/24 Glucose 74 mg/dL (74-106) 04/01/24 17:40 04/01/24 POC Glucose 91 mg/dL (74-106) 04/26/24 06:31 04/26/24 TSH 1.58 uIU/mL (0.358-3.74) 02/04/23 15:34 02/04/23 COAG PT 14.9 SECONDS (11.7-14.9) 03/18/24 12:26 03/18/24 Pre-Assessment Diagnosis/Proposed Procedure Planned Operative Procedure(s): (L) left arm fistula ligation,lerft arm Arteriovenous Fistula,Creation Anesthesia History 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 When Was Last Pacemaker Check QUESTION #4 FULL TEXT: You/Your Family Experience fever (hyperthermia) with Anesthesia Any additional information?: No Last Oral Intake Last Oral intake: Last Oral Intake NPO since 21:00 04/26/24 06:28 Meds taken in AM with sips of water? Meds patient instructed to Zackary Shea 04/26/24 06:28 take am of surgery Last Day Eliquis to be 04/22 Any additional information?: No PONV PONV - arboriculture instructor: PONV - arboriculture instructor Female Yes 04/18/24 09:30 HX of Motion Sickness No 04/18/24 09:30 HX of N/V After Surgery No 04/18/24 09:30 Non-Smoker Yes 04/18/24 09:30 Duration of Surgery greater Yes 04/18/24 09:30 than 60 minutes Number of Risk Factors 3 04/18/24 09:30 PONV Score Moderate Risk 04/18/24 09:30 Any additional information?: No Height & Weight Height & Weight: Anesthesia: Height & Weight Height 5 ft 6.14 in 04/26/24 06:28 Weight: 95 kg 04/26/24 06:28 Body Mass Index (BMI) 33.6 04/26/24 06:28 Respiratory Assessment Respiratory Assessment - arboriculture instructor: Respiratory Tract Infection Hx - arboriculture instructor Hx Respiratory Tract Infection No 04/18/24 09:30 Any additional information?: No STOP Sleep Apnea STOP Sleep Apnea - arboriculture instructor: STOP Sleep Apnea - arboriculture instructor Hx Hypertension No 04/18/24 09:30 Hx Sleep Apnea Yes 04/18/24 09:30 CPAP Yes: WITH 2L O2 04/18/24 09:30 BIPAP No 04/18/24 09:30 Do you snore loudly (louder than talking or can be heard Do you often feel tired/ fatigued/ sleepy during daytime? Has anyone observed you stop breathing during sleep? STOP Results Positive 04/18/24 09:30 QUESTION #5 FULL TEXT : Do you snore loudly (louder than talking or can be heard through closed doors)? Any additional information?: No Tobacco Use History Tobacco Use History - arboriculture instructor: Tobacco Use History - arboriculture instructor Tobacco Use Smoking Status Never smoker 04/20/24 07:39 Hx Tobacco Use No 04/18/24 09:30 Years Smoking Packs Smoked per Day Smoking Cessation Date was within the last 15 years Hx Smoking Cessation Date Hx Smoking Cessation Counseling Any additional information?: No Hematologic Medial History Hematologic Hx - arboriculture instructor: Hematologic Medical Hx - disease case manager rn Hx of Blood Transfusion Yes 04/18/24 09:30 Hx of Transfusion in last 3 No 04/18/24 09:30 Months Date of Last Transfusion (if within last 3 months) Ever experience any problems No 04/18/24 09:30 with transfusion(s)? Specify any problems Hx of Preganancy in last 3 No 04/18/24 09:30 Months Nurse Filling Out Transfusion MGRIFFITH 04/18/24 09:30 & Questions: Date: 04/18/24 04/18/24 09:30 Time: 09:32 04/18/24 09:30 Patient unable to answer at this time (ie. confused, unrespo Any additional information?: No /Reproduction History /Reproductive History - arboriculture instructor: /Reproductive Hx- arboriculture instructor Hx Now Gestational Age (in weeks): EDC: Hx Hx Para Hx Section SAB No 04/18/24 09:30 Any additional information?: No Active Medications Active Medications: Current Medications Generic Name Dose Route Start Last Admin Trade Name Freq PRN Reason Stop Dose Admin Cefazolin Sodium 2 gm/ N/A 20 mls @ 400 mls/hr 04/26/24 07:30 IV 04/26/24 07:32 PREOP [facility] Medical History MRSA infection Open wound History of steroid therapy Thyroid disease History of renal dialysis History of renal disease Low iron Hematoma Syncope History of Crohn's disease GERD (gastroesophageal reflux disease) Chronic cough Leg cramps History of edema History of atrial fibrillation Secondary hyperparathyroidism DM type 2 (diabetes mellitus, type 2) Depression Asthma Atrial fibrillation Migraines Stroke/cerebrovascular accident ESRD (end stage renal disease) on dialysis Lung nodule seen on imaging study Blindness Cataract (lens) fragments in eye following cataract surgery, bilateral Atrial fibrillation, controlled Essential hypertension Uses prosthesis Seasonal allergies Wears glasses Anxiety Insulin dependent diabetes mellitus Uses wheelchair Arthritis DVT (deep venous thrombosis) History of Holter monitoring High cholesterol TIA (transient ischemic attack) Seizures Dietary restriction History of hiatal hernia Non-smoker CPAP (continuous positive airway pressure) dependence Sleep apnea Shortness of breath on exertion History of echocardiogram History of stress test Cardiology follow-up encounter Positive QuantiFERON-TB Gold test Crohn's disease Hx of pancreatitis Hepatosplenomegaly Enteritis Nausea and vomiting Alternating constipation and diarrhea Diarrhea HINTON (nonalcoholic steatohepatitis) CKD (chronic kidney disease) Viral gastroenteritis Acute right flank pain Anemia in chronic kidney disease (CKD) COVID-19 virus detected Pneumonia due to COVID-19 virus Below-knee amputation of left lower extremity Osteomyelitis of left foot History of stroke COPD (chronic obstructive pulmonary disease) IBS (irritable bowel syndrome) GERD (gastroesophageal reflux disease) Diastolic dysfunction Cellulitis of left foot Iron (Fe) deficiency anemia Acute kidney injury Right middle lobe pneumonia Hypomagnesemia Osteomyelitis of right foot Peripheral neuropathy Depression Infection of right great toe due to methicillin resistant Staphylococcus aureus (MRSA) Cellulitis of right foot History of MRSA infection Diabetes mellitus Asthma Pulmonary hypertension SLE (systemic lupus erythematosus) Home Medications ?Medication ?Instructions ?Recorded ?Last Taken ?Type duloxetine 60 mg capsule,delayed 60 mg PO QHS depression 11/26/12 04/25/24 History release insulin regular hum U-500 conc 500 2.2 units subcut CONT insulin pump 10/02/15 04/26/24 History unit/mL subcutaneous soln trazodone 100 mg tablet 150 mg PO QHS sleep 12/27/15 04/25/24 History ergocalciferol (vitamin D2) 1,250 50,000 unit PO QWEEK supplement 01/24/16 04/25/24 History mcg (50,000 unit) capsule albuterol sulfate 2.5 mg/3 mL 2.5 mg inhalation Q4H PRN PRN 06/09/16 04/20/24 History (0.083 %) solution for nebulization Wheezing gabapentin 800 mg tablet 800 mg PO TID neuropathy 05/19/17 04/25/24 History rosuvastatin 10 mg tablet 40 mg PO QHS cholesterol 06/03/17 04/25/24 History magnesium oxide 400 mg (241.3 mg 400 mg PO DAILYCM supplement 07/30/18 04/25/24 History magnesium) tablet hydroxyzine pamoate 50 mg capsule 50 mg PO TID PRN Anxiety 02/20/20 04/25/24 History duloxetine 30 mg capsule,delayed 30 mg PO DAILY depression 05/09/20 04/25/24 History release ondansetron 4 mg disintegrating 8 mg PO Q8H PRN PRN Nausea 09/03/21 01/11/24 History tablet Held on 04/26/24. Instructions: TRYING NEW MED diphenoxylate-atropine 2.5 1 tab PO BID PRN diarrhea #180 tabs 08/04/22 04/25/24 Rx mg-0.025 mg tablet (Lomotil) hyoscyamine sulfate 0.125 mg tablet 0.125 mg PO BID-QID PRN abdominal 08/04/22 Unknown Rx pain #360 tabs albuterol sulfate 90 mcg/actuation 2 puff inhalation Q4-6H PRN 02/26/23 04/26/24 History aerosol inhaler (ProAir HFA) shortness of breath or wheezing fenofibrate nanocrystallized 48 mg 48 mg PO DAILY . 08/11/23 04/25/24 History tablet cinacalcet 30 mg tablet 30 mg PO DAILY . 10/23/23 04/25/24 History midodrine 10 mg tablet 20 mg PO 4XD PRN . 10/23/23 04/25/24 History omeprazole 40 mg capsule,delayed 40 mg PO QHS GERD 10/23/23 04/25/24 History release oxycodone-acetaminophen 5 mg-325 1 tab PO Q6H PRN pain 5 days #20 10/30/23 04/25/24 Rx mg tablet (Percocet) tabs budesonide 3 mg 9 mg (3 x 3 mg) PO DAILY #90 caps 12/18/23 04/25/24 Rx capsule,delayed,extended release fludrocortisone 0.1 mg tablet 0.1 mg PO DAILY #30 TABLETS 12/18/23 04/25/24 Rx calcitriol 0.25 mcg capsule 0.25 mcg PO QDAY 02/03/24 04/25/24 History calcitriol 0.5 mcg capsule 0.5 mcg PO QHS . 02/03/24 04/25/24 History epoetin regan-epbx 2,000 unit/mL 38,000 unit subcut MO . 02/03/24 04/25/24 History injection solution (Retacrit) insulin aspart U-100 100 unit/mL See Protocol subcut ACHS diabetes 02/03/24 04/26/24 History (3 mL) subcutaneous pen mesalamine 500 mg capsule,extended 1,000 mg PO BID 02/03/24 Unknown History release (Pentasa) vitamin B complex-vitamin C-folic 1 tab PO QDAY 02/03/24 04/25/24 History acid 0.8 mg tablet (Nephro-[place]) promethazine 12.5 mg tablet 12.5 mg PO Q6H PRN nausea and 02/26/24 04/25/24 Rx vomiting #20 tabs lactulose 10 gram/15 mL oral 10 g (15 mL) PO BID #3,785 mL 03/15/24 04/25/24 Rx solution risankizumab-rzaa 360 mg/2.4 mL 360 mg (2.4 mL) subcut .COMPLEX . 04/11/24 Unknown Rx (150 mg/mL) subcut wearable #2.4 mL injector (Skyrizi) fluticasone furoate 200 1 inh inhalation Q24H #60 ea 04/15/24 04/26/24 Rx mcg-vilanterol 25 mcg/dose inhalation powder (Breo Ellipta) apixaban 5 mg tablet (Eliquis) 5 mg PO BID 04/20/24 04/22/24 History iron sucrose 100 mg iron/5 mL 100 mg IV QWEEK 04/26/24 Unknown History intravenous solution (Venofer) Allergy/AdvReac Type Severity Reaction Status Date / Time atorvastatin (From Lipitor) AdvReac Severe Vomiting Verified 04/18/24 09:21 Family History Mother Hypertension Cancer skin Grandmother Hypertension Diabetes Brother Cancer NHL Arthritis Brother Arthritis Surgical History History of colonoscopy Hx of BKA Status post insertion of spinal cord stimulator S/P arteriovenous (AV) fistula repair S/P arteriovenous (AV) fistula creation History of lithotripsy History of below-knee amputation of left lower extremity History of eye surgery History of temporal artery biopsy History of lymph node biopsy History of liver biopsy Partial nontraumatic amputation of right foot History of amputation of hallux History of carpal tunnel surgery History of hernia repair History of cholecystectomy History of hysterectomy History of tubal ligation Status post transmetatarsal amputation of right foot Social History Smoking Status: Never smoker second hand exposure: Yes alcohol intake: current details: rare substance use type: does not use Prior Cardiac Testing/Procedures Prior Cardiac Testing/Procedures: Echocardiogram (Reviewed, had last thursday. EF 50%+ with Grade 1 diastolic dysfxn) Review of Systems (Anesthesia) ROS Narrative System reviewed and no additional complaints, except as documented. Physical Exam Const alert, oriented x3 and average body habitus Resp normal respiratory effort, normal air movement and clear to auscultation bilaterally Cardio regular rate, regular rhythm, no murmurs and diaphoretic Cardio Narrative: sinus rhythm, auscultated
[2024-04-26] MEDS: Cefazolin 2 GM in Syringe IV (07:50)
[2024-04-26] MEDS: Bupivacaine 0.25% 30 ML Vial (08:07)
[2024-04-26] MEDS: Lidocaine 1% (20 ml mdv) 20 ML Vial (08:07)
--- NOTE | 2024-04-26 10:16 | EX.PCM.DISCH ---
Discharge Instructions Diet Discharge Diet: No restrictions Activity Lifting Restrictions: do not lift > 20 lbs with left arm for 2 weeks Additional Activity Instructions:: do not submerge incision for 2 weeks Dressing / Incision Call your doctor if your incision/area has: Sudden Increased Bleeding, Increased Pain/ Swelling, Increased Redness and Foul Smelling Discharge Call your doctor if you observe: Coldness, Increased Pain and Numbness or Tingling Remove Dressing in: 2 days Cleanse incision/area with: Soap & Water Follow Up Care Test Results: Test results from this visit will be discussed in further detail at your follow-up appointment, if applicable. Discharge Plan Admission Attending Provider: Mikey Cavanaugh Primary Care Provider: Johann Jimenez Instructions Print Language: Macanese Discharge Orders/Prescriptions Prescriptions: New oxycodone 5 mg tablet 5 mg PO Q8H PRN (Reason: pain) 2 Days Qty: 6 0RF Continued ondansetron 4 mg tablet,disintegrating 8 mg PO Q8H PRN PRN (Reason: Nausea) albuterol sulfate [ProAir HFA] 90 mcg/actuation HFA aerosol inhaler 2 puff inhalation Q4-6H PRN (Reason: shortness of breath or wheezing) calcitriol 0.5 mcg capsule 0.5 mcg PO QHS Retacrit 2,000 unit/mL solution 38,000 unit subcut MO calcitriol 0.25 mcg capsule 0.25 mcg PO QDAY mesalamine [Pentasa] 500 mg capsule, extended release 1,000 mg PO BID Nephro-[place] 0.8 mg tablet 1 tab PO QDAY fluticasone furoate-vilanterol [Breo Ellipta] 200-25 mcg/dose blister with device 1 inh inhalation Q24H Qty: 60 2RF duloxetine 60 MG capsule 60 mg PO QHS Patient Comments: DEPRESSION AND PAIN CONTROL insulin regular hum U-500 conc 20 ML solution 2.2 units SC CONT Patient Comments: insulin pump Rx Instructions: changed site today 02/19/20 trazodone 100 MG tablet 150 mg PO QHS Patient Comments: SLEEP ergocalciferol (vitamin D2) 50,000 UNIT capsule 50,000 unit PO QWEEK Patient Comments: supplement albuterol sulfate 2.5 MG/3 ML solution for nebulization 2.5 mg INHALATION Q4H PRN PRN (Reason: Wheezing) Patient Comments: shortness of breath gabapentin 800 MG tablet 800 mg PO TID Patient Comments: nerve pain rosuvastatin 10 mg tablet 40 mg PO QHS magnesium oxide 400 MG tablet 400 mg PO DAILYCM duloxetine 30 mg capsule,delayed release(DR/EC) 30 mg PO DAILY insulin aspart U-100 100 unit/mL (3 mL) insulin pen See Protocol SC ACHS Protocol: 6. Sliding Scale Insulin Custom Condition: mg/dl range Dose/Route: Number of Units Protocol Text: Custom Sliding Scale Patient Comments: if blood sugar is over 200. calculate reading over 200. divide in half and give that many units of insulin. hydroxyzine pamoate 50 MG capsule 50 mg PO TID PRN (Reason: Anxiety) cinacalcet 30 mg tablet 30 mg PO DAILY omeprazole 40 mg capsule,delayed release(DR/EC) 40 mg PO QHS midodrine 10 mg tablet 20 mg PO 4XD PRN (Reason: .) Rx Instructions: two tablets up to qid oxycodone-acetaminophen [Percocet] 5-325 mg tablet 1 tab PO Q6H PRN (Reason: pain) 5 Days Qty: 20 0RF fenofibrate nanocrystallized 48 mg tablet 48 mg PO DAILY Venofer 100 mg iron/5 mL solution 100 mg IV QWEEK Patient Comments: WITH DIALYSIS Rx Instructions: administer over 15 minutes diphenoxylate-atropine [Lomotil] 2.5-0.025 mg tablet 1 tab PO BID PRN (Reason: diarrhea) Qty: 180 3RF hyoscyamine sulfate 0.125 mg tablet 0.125 mg PO BID-QID PRN (Reason: abdominal pain) Qty: 360 3RF fludrocortisone 0.1 mg tablet 0.1 mg PO DAILY Qty: 30 0RF budesonide 3 mg capsule,delayed,extend.release 9 mg PO DAILY Qty: 90 0RF promethazine 12.5 mg tablet 12.5 mg PO Q6H PRN (Reason: nausea and vomiting) Qty: 20 2RF lactulose 10 gram/15 mL solution 10 g PO BID Qty: 3785 2RF Skyrizi 360 mg/2.4 mL (150 mg/mL) wearable injector 360 mg subcut .COMPLEX Qty: 2.4 6RF Rx Instructions: 360 mg subcutaneously every 8 weeks; Held Eliquis 5 mg tablet 5 mg PO BID Hold Instructions: Resume on 03/13/25. morning dose Rx Instructions: restart 04/21/24 in am Referrals / Follow Up: Johann Jimenez MD [Primary Care Provider] - Disposition Disposition (needs filled in before D/C Order can be placed): Home, Self Care
--- NOTE | 2024-04-26 10:37 | PCM.POST.ANE ---
Anesthesia: Postop Eval I Current Vital Signs Temperature: 97 F Pulse Rate: 99 Blood Pressure: 101/66 Respiratory Rate: 20 Pulse Ox: 97 Oxygen Delivery Method: Nasal Cannula Oxygen Flow Rate (L/min): 2 Assessment Airway patent: Yes Spontaneous unlabored respirations: Yes Mental status: Awake and Calm nausea: No Vomiting: No Anesthesia Complication: No Fluid Hydration Crystalloid volume administer (ml): 400 Total IV fluid infused: 400 Progress Note Anesthesia document: Postop Eval 1 completed: Yes
[2024-04-26 12:08] LABS: Bedside Glucose 201 mg/dL (74-106)
--- NOTE | 2024-04-26 12:34 | POSTOPAN2_ITS ---
Anesthesia Postop Eval I Sum Postop Eval Completion status Anesthesia document: Postop Eval 1 completed: Yes Anesthesia Postop Eval I Summary Anesthesia Postop Eval I Summary: Anesthesia Postop Eval I: Assessment Summary Airway patent Yes 04/26/24 10:38 [email or web address] Spontaneous unlabored Yes 04/26/24 10:38 JUDICIAL [email or web address] respirations Mental status Awake,Calm 04/26/24 10:38 [email or web address] nausea No 04/26/24 10:38 [email or web address] Vomiting No 04/26/24 10:38 [email or web address] Anesthesia Postop Eval I: Fluid Summary Crystalloid volume administer 400 04/26/24 10:38 [email or web address] (ml) Colloids volume administered ( ml) Blood Product volume administered (ml) Total IV fluid infused 400 04/26/24 10:38 [email or web address] Anesthesia Postop Eval I: Summary Notes Anesthesia Complication No 04/26/24 10:38 [email or web address] Anesthesia Complication Comment: Post-operative progress note Anesthesia: Postop Eval II Evaluation Mental status: Awake Pain Level: 0 nausea: No Vomiting: No Progress Note Post-operative progress note: Had some nausea, resolved with Phenergan Complications Anesthesia Complication: No
--- NOTE | 2024-04-26 12:34 | PCM.POSTANE2 ---
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 Spontaneous unlabored Yes 04/26/24 10:38 ENGLISH COMPOSITION [email or web address] respirations Mental status Awake,Calm 04/26/24 10:38 ENGLISH COMPOSITION [email or web address] nausea No 04/26/24 10:38 ENGLISH COMPOSITION [email or web address] Vomiting No 04/26/24 10:38 ENGLISH COMPOSITION [email or web address] Anesthesia Postop Eval I: Fluid Summary Crystalloid volume administer 400 04/26/24 10:38 ENGLISH COMPOSITION [email or web address] (ml) Colloids volume administered ( ml) Blood Product volume administered (ml) Total IV fluid infused 400 04/26/24 10:38 ENGLISH COMPOSITION [email or web address] Anesthesia Postop Eval I: Summary Notes Anesthesia Complication No 04/26/24 10:38 ENGLISH COMPOSITION [email or web address] Anesthesia Complication Comment: Post-operative progress note Anesthesia: Postop Eval II Evaluation Mental status: Awake Pain Level: 0 nausea: No Vomiting: No Progress Note Post-operative progress note: Had some nausea, resolved with Phenergan Complications Anesthesia Complication: No
--- NOTE | 2024-04-26 16:38 | OP.PCM_ITS ---
Operative Report (Standard) Operative Information Date of Procedure: 04/26/24 Pre-Operative Diagnosis: End-stage renal disease with poorly functioning left radiocephalic fistula Post-Operative Diagnosis: Same Surgery/Procedure Performed: Ligation left forearm radiocephalic fistula Creation left brachiocephalic upper arm fistula nurse aide: Yes Brokerage Purchase And Sale Clerk: Bradley Huitron Tasks completed by construction project assistant: Opening, Closing, Opening & closing, Hemostasis: Tie and Retracting Type of Anesthesia: Local MAC, Local and MAC RN Documented Start/Stop Times: Operation Date: 04/26/24 07:30 Case Time Into Pre-Op 04/26/24 06:11 Out of Pre-Op 04/26/24 07:34 Anesthesia Start 04/26/24 07:39 Into Room 04/26/24 07:39 Procedure Start 04/26/24 08:07 Procedure End 04/26/24 10:26 Anesthesia End 04/26/24 10:30 Out of Room 04/26/24 10:30 Into Recovery 04/26/24 10:32 Into Phase II Recovery 04/26/24 11:53 Out of Recovery 04/26/24 11:53 Out of Phase II 04/26/24 12:30 Procedure Start Time: 08:10 Procedure Stop Time: 10:25 Select all DRAINS/GRAFTS/IMPLANTS that apply: None Estimated Blood Loss: 10 Specimen collected: No Description of surgery: HPI: Patient is a 53-year-old female with a prior left radiocephalic fistula which she has been using for several years. The fistula is had multiple interventions and also only provided a short segment of accessible vessel so she presents now for creation of a new upper arm fistula and ligation of the forearm fistula. She previously had a tunneled catheter placed which she is currently used for dialysis. Description of procedure: Upon obtaining form consent and verification correct patient procedure site patient was taken to the operating where she was positioned prepped and draped in usual sterile fashion. Timeouts performed and moderate sedation administered by anesthesia. Ultrasound used to evaluate the cephalic vessels in relation to the brachial artery. Skin overlying the cephalic county engineer and brachial artery was anesthetized with 1% lidocaine and transverse incision made 1 fingerbreadth distal to antecubital crease. Bovie the cautery was then used to dissect until the cephalic fistula was identified. This was then dissected free with sharp dissection with sidebranches ligated with silk ties and divided. Once the county engineer vessel was identified it was dissected distally into the wound and a right angle used to place vessel loop. Next Bovie was used dissect towards the fascia which was then incised and self- retaining retractor moved deeper into the wound. Sharp dissection is used to dissect free the brachial artery down on its bifurcation with a right angle used to place Vesseloops proximal distal. Neck skin overlying the cephalic fistula in the mid forearm was anesthetized with 1% lidocaine and transverse incision created. Bovie was then used to dissect until the vessel was identified and sharp dissection was dissect free proximal and distal. The fistula was then ligated with silk ties and the patient was heparinized allowed circulate for 3 minutes. The fistula and to the county engineer vessel was then clamped and divided then oversewn with 5-0 Prolene in running fashion. Clamps were removed and satisfactory stasis was noted. Next of the county engineer vessel was ligated deep in the wound with silk tie and divided. The brachial artery was then occluded with Vesseloops and longitudinal arteriotomy created with an 11 blade extended with Minaya scissors. The vein was then beveled to match the arteriotomy and anastomosis performed using 6-0 Prolene in a running fashion. Prior to completing the suture line vessels were backbled and after completing the suture line clamps removed and satisfactory stasis was noted. There is a palpable radial pulse at the wrist and palpable thrill in the cephalic vein outflow. This also short segment of thrill in the basilic vein though this was noted to occluded several centimeters above the antecubital crease. The incision was then inspected for hemostasis and closed with 3-0 Vicryl followed by 4 Monocryl and Dermabond for the skin. The patient was then taken the recovery room with dissipated discharged home. Surgical Findings: See above Complications Complications: No
== END 2024-04-26 12:31 | disposition home or self-care (01) ==
LOC: SDC 06:00 → AC 06:03
PROVIDERS: PCP Family Medicine; Referring Provider Surgery Trauma Surgery; Visit Provider Surgery Trauma Surgery
PROC: (CPT 37607; principal; 2024-04-26 07:15)
DX: T82.590A Other mechanical complication of surgically created arteriovenous fistula, initial encounter (principal); I12.0 Hypertensive chronic kidney disease with stage 5 chronic kidney disease or end stage renal disease; N18.6 End stage renal disease; Z89.512 Acquired absence of left leg below knee; Z89.431 Acquired absence of right foot; J44.9 Chronic obstructive pulmonary disease, unspecified; E11.42 Type 2 diabetes mellitus with diabetic polyneuropathy; E11.22 Type 2 diabetes mellitus with diabetic chronic kidney disease; Z79.4 Long term (current) use of insulin; X58.XXXA Exposure to other specified factors, initial encounter; E78.00 Pure hypercholesterolemia, unspecified; Z99.2 Dependence on renal dialysis; Z96.41 Presence of insulin pump (external) (internal); Z79.01 Long term (current) use of anticoagulants; Z79.899 Other long term (current) drug therapy; Z86.16 Personal history of COVID-19; Z86.73 Personal history of transient ischemic attack (TIA), and cerebral infarction without residual deficits
CPT/HCPCS: 37607; 36821; 01840; 82962; A4648; A4216; J2405

== ENCOUNTER → 2024-05-20 | Outpatient (CLI) | payer MEDICARE, SELFPAY ==
--- NOTE | 2024-05-20 08:57 | AVDS_ITS ---
Reason For Study Reason For Study: S/P LUE AVF Left Velocities Lt Brachial- Cephalic AVF. Inflow, 179.8/64.2 cm/sec. Inflow, 817.1 ml/min. Anastomosis, 444.3/219.5 cm/sec. Anastomosis, 2009 ml/min. Prox graft, 77.8/32.1 cm/sec. Prox graft, 421.9 ml/min. Mid graft, 54.6/27.6 cm/sec. Mid graft, 237.6 ml/min. Distal graft, 53.1/33.2 cm/sec. Distal graft, 230.0 ml/min. Outflow, 39.6/21.8 cm/sec. Outflow, 122.9 ml/min. Secondary Branch Prox graft, 83.1/33.6 cm/sec. Prox graft, 294.2 ml/min. Mid graft, 52.3/27.0 cm/sec. Mid graft, 89.5 ml/min. Secondary branch appears to reconnect with primary branch at distal portion. Left Graft Findings HX possible failed LT Radial-Cephalic AVF. Graft appears dilated and NONCOMPRESSIBLE with no flow detected. S/P Lt Brachial- Cephalic AVF. Multiple branches detected shortly after anastomosis. VL/AV Fistula/Dialysis Graft Scan Interpretation Summary Patent left brachio-cephalic fistula with no stenosis. Parallel branch that con nects back into dominant vein. Ordering Physician: Libia Holden Referring Physician: Johann Jimenez Performed By: Den Toribio RVT
== END | disposition home or self-care (01) ==
PROVIDERS: PCP Family Medicine; Referring Provider Physician Assistant; Visit Provider Physician Assistant
DX: T82.590A Other mechanical complication of surgically created arteriovenous fistula, initial encounter (principal); I77.0 Arteriovenous fistula, acquired; Y83.2 Surgical operation with anastomosis, bypass or graft as the cause of abnormal reaction of the patient, or of later complication, without mention of misadventure at the time of the procedure
CPT/HCPCS: 93990

== ENCOUNTER 2024-06-02 06:56 | Day surgery (SDC) | payer MEDICARE, SELFPAY ==
[2024-06-01 07:49] VITALS: BMI 33.5
--- NOTE | 2024-06-02 15:18 | PCM.OPRPT ---
Operative Report (Standard) Operative Information Date of Procedure: 06/02/24 Pre-Operative Diagnosis: stenosis left upper arm fistula Post-Operative Diagnosis: same Surgery/Procedure Performed: fistulagram medical anthropology director: No Type of Anesthesia: Local and Sedation,Conscious Procedure Start Time: 08:15 Procedure Stop Time: 08:45 Select all DRAINS/GRAFTS/IMPLANTS that apply: None Estimated Blood Loss: 3 Specimen collected: No Description of surgery: HPI: Patient is a 53-year-old female who recently had a left cephalic fistula created that has been slow to mature. She presents for fistulogram to assess for possible significant stenosis at the cephalic in the proximal upper arm. Description of procedure: Upon obtaining form consent and verification correct patient procedure site patient taken to the [facility]ia Technician where she was positioned prepped and draped in usual sterile fashion. Timeouts performed consultation administered Versed and fentanyl. Skin overlying the cephalic fistula was anesthetized with 1% lidocaine the vessel accessed under ultrasound guidance with a micropuncture needle wire. This then exchanged for a 6 [place] sheath through which hand-injection subtraction fistulogram including reflux into the arterial anastomosis and central venogram to the atriocaval junction was performed. This revealed satisfactory arterial anastomosis utilizing the larry car operator vein with abdominal outflow into the cephalic vein though there was a patent median cubital branch filling a basilic vein that initially was large in caliber though this terminated in multiple collateral branches in the distal upper arm. The cephalic vein itself was of adequate caliber in the distal two thirds of the upper arm and in the proximal one third of the vessel occluded with venous outflow via collateral branch that filled to the axillary subclavian vein. The brachial, axillary, subclavian, innominate veins were all patent with no stenosis. The superior vena cava likewise was patent and normal caliber with no stenosis. It was felt that the collateral branches including the median cubital branch would best be treated with surgical ligation and then a jump graft from the cephalic vein to the brachial vein at the axilla would provide adequate and improved outflow. A 3-0 Ethilon suture was then placed at the access site and the sheath removed followed by 5 minutes of manual pressure with satisfactory hemostasis noted. The patient was then taken recovery plan discharged home. Surgical Findings: see above Complications Complications: No
== END 2024-06-02 09:45 | disposition home or self-care (01) ==
PROVIDERS: PCP Family Medicine; Referring Provider Surgery Trauma Surgery; Visit Provider Surgery Trauma Surgery
DX: T82.858A Stenosis of other vascular prosthetic devices, implants and grafts, initial encounter (principal); N18.6 End stage renal disease; I12.0 Hypertensive chronic kidney disease with stage 5 chronic kidney disease or end stage renal disease; Z89.512 Acquired absence of left leg below knee; Z89.431 Acquired absence of right foot; E11.22 Type 2 diabetes mellitus with diabetic chronic kidney disease; Z79.4 Long term (current) use of insulin; E11.42 Type 2 diabetes mellitus with diabetic polyneuropathy; X58.XXXA Exposure to other specified factors, initial encounter; E78.00 Pure hypercholesterolemia, unspecified; Z99.2 Dependence on renal dialysis; Z79.01 Long term (current) use of anticoagulants; Z79.899 Other long term (current) drug therapy
CPT/HCPCS: 36901; 76937; 99152; 99153; C1894; Q9967

== ENCOUNTER → 2024-06-14 | Outpatient (CLI) | payer MEDICARE, SELFPAY ==
[2024-06-14 09:57] LABS: Hemoglobin 10.6 g/dL (12.0-15.0); Mean Corp Hgb Conc 33.1 g/dL (32-36); Mean Corpuscular Hgb 32.6 pg (27.0-32.0); Mean Corpuscular Volume 98.5 fL (81-99); Mean Platelet Vol. 10.6 fl (6.2-12.0); Platelet Count 160 K/mm3 (150-450); RBC Distribution Width CV 14.6 % (11.6-14.6); RBC Distribution Width SD 51.9 fl (35.1-43.9); Red Blood Count 3.25 M/mm3 (4.2-5.4); White Blood Count 6.9 K/mm3 (4.4-11.0)
[2024-06-14 10:42] LABS: Anion Gap 17 (5-15); BUN 32 mg/dL (4-19); Carbon Dioxide 25.8 mmol/L (21.0-32.0); Chloride 95 mmol/L (98-108); Creatinine, Serum 5.29 mg/dL (0.70-1.20); EST Glomerular Filtration Rate 9 (>60); Glucose 73 mg/dL (70-99); Potassium 4.2 mmol/L (3.3-5.1); Sodium Level 138 mmol/L (133-145)
== END | disposition home or self-care (01) ==
LOC: LAB 08:54
PROVIDERS: Surgery Trauma Surgery; PCP Family Medicine; Referring Provider Nurse Practitioner Family; Visit Provider Nurse Practitioner Family
DX: Z01.818 Encounter for other preprocedural examination (principal)
CPT/HCPCS: 36415; 80048; 85027

== ENCOUNTER 2024-06-23 05:58 | Day surgery (SDC) | payer MEDICARE, SELFPAY ==
--- NOTE | 2024-06-10 15:27 | PAT.ANESEVAL ---
Pre-Assessment Diagnosis/Proposed Procedure Planned Operative Procedure(s): LEFT UPPER EXTREMITY FISTULA REVISION WITH CADAVER PUMP GRAFT Anesthesia History Anesthesia History - tuber machine operator helper: Anesthesia History - tuber machine operator helper Hx Hospitalization Yes: INFECTION OF BACK FROM 06/10/24 09:19 PAIN STIMULATOR Any Problems With Anesthesia No 06/10/24 09:19 Cholinesterase deficiency No 06/10/24 09:19 You/Your Family Experience No 06/10/24 09:19 fever (hyperthermia) with Relationship Recent Exposure to Contagious No 04/26/24 06:28 Disease Does patient have nerve Yes 06/10/24 09:19 stimulator Patient instructed to have device shut off --Does patient have Pacemaker or ICD? When Was Last Pacemaker Check QUESTION #4 FULL TEXT: You/Your Family Experience fever (hyperthermia) with Anesthesia Last Oral Intake Last Oral intake: Last Oral Intake NPO since Meds taken in AM with sips of water? Meds patient instructed to take am of surgery PONV PONV - tuber machine operator helper: PONV - tuber machine operator helper Female Yes 06/10/24 09:19 HX of Motion Sickness No 06/10/24 09:19 HX of N/V After Surgery No 06/10/24 09:19 Non-Smoker Yes 06/10/24 09:19 Duration of Surgery greater Yes 06/10/24 09:19 than 60 minutes Number of Risk Factors 3 06/10/24 09:19 PONV Score Moderate Risk 06/10/24 09:19 Height & Weight Height & Weight: Anesthesia: Height & Weight Height 5 ft 6.14 in 06/02/24 07:16 Respiratory Assessment Respiratory Assessment - tuber machine operator helper: Respiratory Tract Infection Hx - tuber machine operator helper Hx Respiratory Tract Infection No 06/10/24 09:19 STOP Sleep Apnea STOP Sleep Apnea - tuber machine operator helper: STOP Sleep Apnea - tuber machine operator helper Hx Hypertension No 06/10/24 09:19 Hx Sleep Apnea Yes 06/10/24 09:19 CPAP Yes: WITH 2L O2 06/10/24 09:19 BIPAP No 06/10/24 09:19 Do you snore loudly (louder than talking or can be heard Do you often feel tired/ fatigued/ sleepy during daytime? Has anyone observed you stop breathing during sleep? STOP Results Positive 06/10/24 09:19 QUESTION #5 FULL TEXT : Do you snore loudly (louder than talking or can be heard through closed doors)? Tobacco Use History Tobacco Use History - tuber machine operator helper: Tobacco Use History - tuber machine operator helper Tobacco Use Smoking Status Never smoker 06/10/24 09:19 Hx Tobacco Use No 06/10/24 09:19 Years Smoking Packs Smoked per Day Smoking Cessation Date was within the last 15 years Hx Smoking Cessation Date Hx Smoking Cessation Counseling Hematologic Medial History Hematologic Hx - tuber machine operator helper: Hematologic Medical Hx - documentation nurse Hx of Blood Transfusion Yes 06/10/24 09:19 Hx of Transfusion in last 3 No 06/10/24 09:19 Months Date of Last Transfusion (if within last 3 months) Ever experience any problems No 06/10/24 09:19 with transfusion(s)? Specify any problems Hx of Preganancy in last 3 No 06/10/24 09:19 Months Nurse Filling Out Transfusion DSCHRIBER 06/10/24 09:19 & Questions: Date: 06/10/24 06/10/24 09:19 Time: 09:20 06/10/24 09:19 Patient unable to answer at this time (ie. confused, unrespo /Reproduction History /Reproductive History - tuber machine operator helper: /Reproductive Hx- tuber machine operator helper Hx Now Gestational Age (in weeks): EDC: Hx Hx Para Hx Section SAB No 06/10/24 09:19 PFSH Medical History Arteriovenous fistula History of Holter monitoring MRSA infection Open wound History of steroid therapy Thyroid disease History of renal dialysis History of renal disease Low iron Hematoma Syncope History of Crohn's disease GERD (gastroesophageal reflux disease) Chronic cough History of edema History of atrial fibrillation Secondary hyperparathyroidism DM type 2 (diabetes mellitus, type 2) Depression Asthma Migraines ESRD (end stage renal disease) on dialysis Lung nodule seen on imaging study Blindness Cataract (lens) fragments in eye following cataract surgery, bilateral Atrial fibrillation, controlled Essential hypertension Uses prosthesis Seasonal allergies Wears glasses Anxiety Insulin dependent diabetes mellitus Uses wheelchair Arthritis DVT (deep venous thrombosis) High cholesterol TIA (transient ischemic attack) Seizures Dietary restriction History of hiatal hernia Non-smoker CPAP (continuous positive airway pressure) dependence Sleep apnea Shortness of breath on exertion History of echocardiogram History of stress test Cardiology follow-up encounter Positive QuantiFERON-TB Gold test Crohn's disease Hx of pancreatitis Hepatosplenomegaly Enteritis Nausea and vomiting Alternating constipation and diarrhea Diarrhea HINTON (nonalcoholic steatohepatitis) CKD (chronic kidney disease) Viral gastroenteritis Acute right flank pain Anemia in chronic kidney disease (CKD) COVID-19 virus detected Pneumonia due to COVID-19 virus Below-knee amputation of left lower extremity Osteomyelitis of left foot History of stroke COPD (chronic obstructive pulmonary disease) IBS (irritable bowel syndrome) GERD (gastroesophageal reflux disease) Diastolic dysfunction Cellulitis of left foot Iron (Fe) deficiency anemia Acute kidney injury Right middle lobe pneumonia Hypomagnesemia Osteomyelitis of right foot Peripheral neuropathy Depression Infection of right great toe due to methicillin resistant Staphylococcus aureus (MRSA) Cellulitis of right foot History of MRSA infection Diabetes mellitus Asthma Pulmonary hypertension SLE (systemic lupus erythematosus) Home Medications ?Medication ?Instructions ?Recorded ?Last Taken ?Type duloxetine 60 mg capsule,delayed 60 mg PO QHS depression 11/26/12 04/25/24 History release insulin regular hum U-500 conc 500 2.2 units subcut CONT insulin pump 10/02/15 04/26/24 History unit/mL subcutaneous soln trazodone 100 mg tablet 150 mg PO QHS sleep 12/27/15 04/25/24 History ergocalciferol (vitamin D2) 1,250 50,000 unit PO FR supplement 01/24/16 04/25/24 History mcg (50,000 unit) capsule albuterol sulfate 2.5 mg/3 mL 2.5 mg inhalation Q4H PRN PRN 06/09/16 04/20/24 History (0.083 %) solution for nebulization Wheezing gabapentin 800 mg tablet 800 mg PO TID neuropathy 05/19/17 04/25/24 History rosuvastatin 10 mg tablet 40 mg PO QHS cholesterol 06/03/17 04/25/24 History magnesium oxide 400 mg (241.3 mg 400 mg PO DAILYCM supplement 07/30/18 04/25/24 History magnesium) tablet hydroxyzine pamoate 50 mg capsule 50 mg PO TID PRN Anxiety 02/20/20 04/25/24 History duloxetine 30 mg capsule,delayed 30 mg PO DAILY depression 05/09/20 04/25/24 History release ondansetron 4 mg disintegrating 8 mg PO Q8H PRN PRN Nausea 09/03/21 01/11/24 History tablet diphenoxylate-atropine 2.5 1 tab PO BID PRN diarrhea #180 tabs 08/04/22 04/25/24 Rx mg-0.025 mg tablet (Lomotil) hyoscyamine sulfate 0.125 mg tablet 0.125 mg PO BID-QID PRN abdominal 08/04/22 Unknown Rx pain #360 tabs albuterol sulfate 90 mcg/actuation 2 puff inhalation Q4-6H PRN 02/26/23 04/26/24 History aerosol inhaler (ProAir HFA) shortness of breath or wheezing fenofibrate nanocrystallized 48 mg 48 mg PO DAILY . 08/11/23 04/25/24 History tablet cinacalcet 30 mg tablet 30 mg PO DAILY . 10/23/23 04/25/24 History midodrine 10 mg tablet 20 mg PO 4XD PRN . 10/23/23 04/25/24 History omeprazole 40 mg capsule,delayed 40 mg PO QHS GERD 10/23/23 04/25/24 History release oxycodone-acetaminophen 5 mg-325 1 tab PO Q6H PRN pain 5 days #20 10/30/23 04/25/24 Rx mg tablet (Percocet) tabs budesonide 3 mg 9 mg (3 x 3 mg) PO DAILY #90 caps 12/18/23 04/25/24 Rx capsule,delayed,extended release fludrocortisone 0.1 mg tablet 0.1 mg PO DAILY #30 TABLETS 12/18/23 04/25/24 Rx calcitriol 0.25 mcg capsule 0.25 mcg PO QDAY 02/03/24 04/25/24 History calcitriol 0.5 mcg capsule 0.5 mcg PO QHS . 02/03/24 04/25/24 History insulin aspart U-100 100 unit/mL See Protocol subcut ACHS diabetes 02/03/24 04/26/24 History (3 mL) subcutaneous pen mesalamine 500 mg capsule,extended 1,000 mg PO BID 02/03/24 Unknown History release (Pentasa) vitamin B complex-vitamin C-folic 1 tab PO QDAY 02/03/24 04/25/24 History acid 0.8 mg tablet (Nephro-[place]) lactulose 10 gram/15 mL oral 10 g (15 mL) PO BID #3,785 mL 03/15/24 04/25/24 Rx solution risankizumab-rzaa 360 mg/2.4 mL 360 mg (2.4 mL) subcut .COMPLEX . 04/11/24 Unknown Rx (150 mg/mL) subcut wearable #2.4 mL injector (Skyrizi) apixaban 5 mg tablet (Eliquis) 5 mg PO BID 04/20/24 05/29/24 History iron sucrose 100 mg iron/5 mL 100 mg IV QWEEK 04/26/24 Unknown History intravenous solution (Venofer) cholestyramine (with sugar) 4 gram 4 g PO HS #378 grams 05/06/24 Unknown Rx oral powder epoetin regan-epbx 2,000 unit/mL 38,000 unit subcut MO . 05/06/24 Unknown History injection solution (Retacrit) metoclopramide HCl 5 mg tablet 5 mg PO BID #60 tabs 05/06/24 Unknown Rx promethazine 12.5 mg tablet 12.5 mg PO Q6H PRN nausea and 05/06/24 Unknown Rx vomiting #20 tabs fluticasone fur. 200 mcg-umeclid 1 inh inhalation Q24H #60 ea 06/10/24 Unknown Rx 62.5 mcg-vilant 25 mcg inhalat.powder (Trelegy Ellipta) Allergy/AdvReac Type Severity Reaction Status Date / Time atorvastatin (From Lipitor) AdvReac Severe Vomiting Verified 06/10/24 14:44 Family History Mother Hypertension Cancer skin Grandmother Hypertension Diabetes Brother Cancer NHL Arthritis Brother Arthritis Surgical History History of colonoscopy Hx of BKA Status post insertion of spinal cord stimulator S/P arteriovenous (AV) fistula repair S/P arteriovenous (AV) fistula creation History of lithotripsy History of below-knee amputation of left lower extremity History of eye surgery History of temporal artery biopsy History of lymph node biopsy History of liver biopsy Partial nontraumatic amputation of right foot History of amputation of hallux History of carpal tunnel surgery History of hernia repair History of cholecystectomy History of hysterectomy History of tubal ligation Status post transmetatarsal amputation of right foot Social History Smoking Status: Never smoker second hand exposure: Yes alcohol intake: current details: rare substance use type: does not use Audit: Pertinent Findings Pertinent Findings EKG Perinent findings: 03/04/2024. Sinus tachycardia. Poor R wave progression?nonspecific?consider old anterior infarct. Stress test pertinent findings: 09/22/2022. Ejection fraction 64%. No areas of reversibility to suggest ischemia and no previous infarct. Echo (EF%) pertinent findings: 04/22/2024. Ejection fraction 60%. No aortic stenosis. Consult pertinent findings: 05/06/2024. Monster WELCH. 1. Dizziness?acute?improved with midodrine. 2. Shortness of breath on exertion?acute-this is at baseline. Continue with home oxygen. 3. Sleep apnea?acute-patient uses CPAP with oxygen at night. 4. Paroxysmal atrial fibrillation?acute-patient is to continue her Eliquis. 5. End-stage renal disease on [id number] does dialysis in her home environment for 5 days a week. Additional pertinent findings: Holter monitor. March 28, 2024. No significant ectopy to explain symptoms. Benign Holter. Normal sinus rhythm with rare PVCs and PACs. Patient kept a 48-hour diary and noted total symptoms which correlated with normal sinus rhythm and/or sinus tachycardia. Recommendation Anesthesia Recommendation Anesthesia recommendation: OPTIMIZED for anesthesia
[2024-06-14 10:43] LABS: Pro- Brain NATRIURETIC PEPTIDE 1395 pg/mL (<=900)
[2024-06-23] VITALS (8 sets, daily range): BP systolic 139–146; BP diastolic 69–86; PULSE 91–101; RESP 16–20; TEMP 36.3–36.8; O2SAT 92–100; BMI 34.2
[2024-06-23] MEDS: 0.9% Normal Saline (500mL Bag) 500 ML 15 ML IV (07:04)
--- NOTE | 2024-06-23 07:08 | PRE.ANES_ITS ---
ASA Classification* ASA Classification ASA Classification: 3 Assessment & Plan Anesthesia* Anesthesia Assessment Anesthesia Assessment: Discussed sedation and/or anesthesia options, risks, benefits, and alternatives with patient/parents/legal guardian/POA. Questions invited. The patient/parents/legal guardian/POA seems to understand and agrees to proceed with anesthesia plan. Reviewed the physical assessment, medical history, allergy history and patient home medications list prior to surgery/procedure/anesthetic and documented any changes. Performed airway and anesthesia risk assessments. Anesthesia Type Anesthesia Type: General History Source History Obtained from:: Patient and Chart Anesthesia Focused Assessment* Temperature: 98.3 F Pulse Rate: 91 Blood Pressure: 139/86 Respiratory Rate: 16 Pulse Ox: 100 Oxygen Delivery Method: Room Air Oxygen Flow Rate (L/min): 2 Airway Assessment Mouth opens: >3 cm Mallampati Score: IV Teeth Condition: Intact Neck Range of motion (ROM): Full ROM Focused Labs Anesthesia Preop lab: CBC WBC 6.9 K/mm3 (4.4-11.0) 06/14/24 09:20 06/14/24 RBC 3.25 M/mm3 (4.2-5.4) L 06/14/24 09:20 06/14/24 Hgb 10.6 g/dL (12.0-15.0) L 06/14/24 09:20 5 Hct 32.0 % (37-47) L 06/14/24 09:20 06/14/24 Plt Count 160 K/mm3 (150-450) 06/14/24 09:20 06/14/24 CHEMISTRY Potassium 4.2 mmol/L (3.3-5.1) 06/14/24 09:20 06/14/24 Sodium 138 mmol/L (133-145) 06/14/24 09:20 06/14/24 Magnesium 2.4 mg/dL (1.6-2.6) 10/26/23 06:15 10/26/23 Phosphorus 8.0 mg/dL (2.5-4.9) H 10/26/23 06:15 10/26/23 BUN 32 mg/dL (4-19) H 06/14/24 09:20 06/14/24 Creatinine 5.29 mg/dL (0.70-1.20) H 06/14/24 09:20 Glucose 73 mg/dL (70-99) 06/14/24 09:20 06/14/24 POC Glucose 201 mg/dL (74-106) H 04/26/24 11:50 04/26/24 TSH 1.58 uIU/mL (0.358-3.74) 02/04/23 15:34 COAG PT 14.9 SECONDS (11.7-14.9) 03/18/24 12:26 Pre-Assessment Diagnosis/Proposed Procedure Planned Operative Procedure(s): LEFT UPPER EXTREMITY FISTULA REVISION WITH CADAVER PUMP GRAFT Anesthesia History Anesthesia History - counter intelligence agent: Anesthesia History - counter intelligence agent Hx Hospitalization Yes: INFECTION OF BACK FROM 06/10/24 09:19 PAIN STIMULATOR Any Problems With Anesthesia PONV 06/10/24 09:19 Cholinesterase deficiency No 06/10/24 09:19 You/Your Family Experience No 06/10/24 09:19 fever (hyperthermia) with Relationship Recent Exposure to Contagious No 06/23/24 06:34 Disease Does patient have nerve Yes 06/10/24 09:19 stimulator Patient instructed to have device shut off --Does patient have Pacemaker No 06/23/24 06:34 or ICD? When Was Last Pacemaker Check QUESTION #4 FULL TEXT: You/Your Family Experience fever (hyperthermia) with Anesthesia Last Oral Intake Last Oral intake: Last Oral Intake NPO since 00:00 06/23/24 06:34 Meds taken in AM with sips of No 06/23/24 06:34 water? Meds patient instructed to take am of surgery PONV PONV - counter intelligence agent: PONV - counter intelligence agent Female Yes 06/10/24 09:19 HX of Motion Sickness No 06/10/24 09:19 HX of N/V After Surgery No 06/10/24 09:19 Non-Smoker Yes 06/10/24 09:19 Duration of Surgery greater Yes 06/10/24 09:19 than 60 minutes Number of Risk Factors 3 06/10/24 09:19 PONV Score Moderate Risk 06/10/24 09:19 Height & Weight Height & Weight: Anesthesia: Height & Weight Height 5 ft 6 in 06/23/24 06:34 Weight: 96.3 kg 05/08/25 06:34 Body Mass Index (BMI) 34.2 06/23/24 06:34 Respiratory Assessment Respiratory Assessment - counter intelligence agent: Respiratory Tract Infection Hx - counter intelligence agent Hx Respiratory Tract Infection No 06/10/24 09:19 Any additional information?: Yes Hx Respiratory Tract Infection: Yes (Patient has chronic cough.) STOP Sleep Apnea STOP Sleep Apnea - counter intelligence agent: STOP Sleep Apnea - counter intelligence agent Hx Hypertension No 06/10/24 09:19 Hx Sleep Apnea Yes 06/10/24 09:19 CPAP Yes: WITH 2L O2 06/10/24 09:19 BIPAP No 06/10/24 09:19 Do you snore loudly (louder than talking or can be heard Do you often feel tired/ fatigued/ sleepy during daytime? Has anyone observed you stop breathing during sleep? STOP Results Positive 06/10/24 09:19 QUESTION #5 FULL TEXT : Do you snore loudly (louder than talking or can be heard through closed doors)? Tobacco Use History Tobacco Use History - counter intelligence agent: Tobacco Use History - counter intelligence agent Tobacco Use Smoking Status Never smoker 06/10/24 09:19 Hx Tobacco Use No 06/10/24 09:19 Years Smoking Packs Smoked per Day Smoking Cessation Date was within the last 15 years Hx Smoking Cessation Date Hx Smoking Cessation Counseling Hematologic Medial History Hematologic Hx - counter intelligence agent: Hematologic Medical Hx - customer support technician Hx of Blood Transfusion Yes 06/10/24 09:19 Hx of Transfusion in last 3 No 06/10/24 09:19 Months Date of Last Transfusion (if within last 3 months) Ever experience any problems No 06/10/24 09:19 with transfusion(s)? Specify any problems Hx of Preganancy in last 3 No 06/10/24 09:19 Months Nurse Filling Out Transfusion DSCHRIBER 06/10/24 09:19 & Questions: Date: 06/10/24 06/10/24 09:19 Time: 09:20 06/10/24 09:19 Patient unable to answer at this time (ie. confused, unrespo /Reproduction History /Reproductive History - counter intelligence agent: /Reproductive Hx- counter intelligence agent Hx Now Gestational Age (in weeks): EDC: Hx Hx Para Hx Section SAB No 06/10/24 09:19 Active Medications Active Medications: Current Medications Generic Name Dose Route Start Last Admin Trade Name Freq PRN Reason Stop Dose Admin Cefazolin Sodium 2 gm/ Sodium 110 mls @ 150 mls/hr 06/23/24 07:30 Chloride IV 06/23/24 08:13 INTRAOP ONE Sodium Chloride 500 mls @ 15 mls/hr 06/23/24 06:15 06/23/24 07:04 IV 15 mls/hr .[id number] JOE Administration KVO PFSH Medical History Pulmonary hypertension Arteriovenous fistula History of Holter monitoring MRSA infection Open wound History of steroid therapy Thyroid disease History of renal dialysis History of renal disease Low iron Hematoma Syncope History of Crohn's disease GERD (gastroesophageal reflux disease) Chronic cough History of edema History of atrial fibrillation Secondary hyperparathyroidism DM type 2 (diabetes mellitus, type 2) Depression Asthma Migraines ESRD (end stage renal disease) on dialysis Lung nodule seen on imaging study Blindness Cataract (lens) fragments in eye following cataract surgery, bilateral Atrial fibrillation, controlled Essential hypertension Uses prosthesis Seasonal allergies Wears glasses Anxiety Insulin dependent diabetes mellitus Uses wheelchair Arthritis DVT (deep venous thrombosis) High cholesterol TIA (transient ischemic attack) Seizures Dietary restriction History of hiatal hernia Non-smoker CPAP (continuous positive airway pressure) dependence Sleep apnea Shortness of breath on exertion History of echocardiogram History of stress test Cardiology follow-up encounter Positive QuantiFERON-TB Gold test Crohn's disease Hx of pancreatitis Hepatosplenomegaly Enteritis Nausea and vomiting Alternating constipation and diarrhea Diarrhea HINTON (nonalcoholic steatohepatitis) CKD (chronic kidney disease) Viral gastroenteritis Acute right flank pain Anemia in chronic kidney disease (CKD) COVID-19 virus detected Pneumonia due to COVID-19 virus Below-knee amputation of left lower extremity Osteomyelitis of left foot History of stroke COPD (chronic obstructive pulmonary disease) IBS (irritable bowel syndrome) GERD (gastroesophageal reflux disease) Diastolic dysfunction Cellulitis of left foot Iron (Fe) deficiency anemia Acute kidney injury Right middle lobe pneumonia Hypomagnesemia Osteomyelitis of right foot Peripheral neuropathy Depression Infection of right great toe due to methicillin resistant Staphylococcus aureus (MRSA) Cellulitis of right foot History of MRSA infection Diabetes mellitus Asthma SLE (systemic lupus erythematosus) Home Medications ?Medication ?Instructions ?Recorded ?Last Taken ?Type duloxetine 60 mg capsule,delayed 60 mg PO QHS depressi on 11/26/12 06/22/24 History release insulin regular hum U-500 conc 500 2.2 units subcut CO NT insulin pump 10/02/15 04/26/24 History unit/mL subcutaneous soln trazodone 100 mg tablet 150 mg PO QHS sleep 12/27/15 06/22/24 History ergocalciferol (vitamin D2) 1,250 50,000 unit PO FR kelley pplement 01/24/16 06/17/24 History mcg (50,000 unit) capsule albuterol sulfate 2.5 mg/3 mL 2.5 mg inhalation Q4H RI N PRN 06/09/16 04/20/24 History (0.083 %) solution for nebulization Wheezing gabapentin 800 mg tablet 800 mg PO TID neuropathy 05/0306/22/24 History rosuvastatin 10 mg tablet 40 mg PO QHS cholesterol 06/22/24 History magnesium oxide 400 mg (241.3 mg 400 mg PO DAILYCM sup plement 07/30/18 06/22/24 History magnesium) tablet hydroxyzine pamoate 50 mg capsule 50 mg PO TID PRN Anx iety 02/20/20 04/25/24 History duloxetine 30 mg capsule,delayed 30 mg PO DAILY depres giles 05/09/20 06/22/24 History release ondansetron 4 mg disintegrating 8 mg PO Q8H PRN PRN Na usea 09/03/21 01/11/24 History tablet diphenoxylate-atropine 2.5 1 tab PO BID PRN diarrhea # 180 tabs 08/04/22 04/25/24 Rx mg-0.025 mg tablet (Lomotil) hyoscyamine sulfate 0.125 mg tablet 0.125 mg PO BID-QI D PRN abdominal 08/04/22 Unknown Rx pain #360 tabs albuterol sulfate 90 mcg/actuation 2 puff inhalation Q 4-6H PRN 02/26/23 06/23/24 History aerosol inhaler (ProAir HFA) shortness of breath or wh eezing fenofibrate nanocrystallized 48 mg 48 mg PO DAILY . 06/22/24 History tablet cinacalcet 30 mg tablet 30 mg PO DAILY . 10/23/23 History midodrine 10 mg tablet 20 mg PO 4XD PRN . 10/23/23 04/25/24 History omeprazole 40 mg capsule,delayed 40 mg PO QHS GERD 08/0906/22/24 History release oxycodone-acetaminophen 5 mg-325 1 tab PO Q6H PRN pain 5 days #20 10/30/23 06/22/24 Rx mg tablet (Percocet) tabs fludrocortisone 0.1 mg tablet 0.1 mg PO DAILY #30 TABL ETS 12/18/23 06/22/24 Rx calcitriol 0.25 mcg capsule 0.25 mcg PO QDAY 02/03/24 06/22/24 History calcitriol 0.5 mcg capsule 0.5 mcg PO QHS . 02/03/24 0 06/22/24 History insulin aspart U-100 100 unit/mL See Protocol subcut A [facility] diabetes 02/03/24 04/26/24 History (3 mL) subcutaneous pen vitamin B complex-vitamin C-folic 1 tab PO QDAY 04/25/24 History acid 0.8 mg tablet (Nephro-[place]) risankizumab-rzaa 360 mg/2.4 mL 360 mg (2.4 mL) subcut .COMPLEX . 04/11/24 06/11/24 Rx (150 mg/mL) subcut wearable #2.4 mL injector (Skyrizi) apixaban 5 mg tablet (Eliquis) 5 mg PO BID 04/20/24 History iron sucrose 100 mg iron/5 mL 100 mg IV QWEEK 04/26/24 Unknown History intravenous solution (Venofer) cholestyramine (with sugar) 4 gram 4 g PO HS #378 gram s 05/06/24 06/22/24 Rx oral powder epoetin regan-epbx 2,000 unit/mL 38,000 unit subcut MO . 05/06/24 06/20/24 History injection solution (Retacrit) metoclopramide HCl 5 mg tablet 5 mg PO BID #60 tabs Unknown Rx promethazine 12.5 mg tablet 12.5 mg PO Q6H PRN nausea and 05/06/24 Unknown Rx vomiting #20 tabs fluticasone fur. 200 mcg-umeclid 1 inh inhalation Q24H #60 ea 06/10/24 06/23/24 Rx 62.5 mcg-vilant 25 mcg inhalat.powder (Trelegy Ellipta) Allergy/AdvReac Type Severity Reaction Status Date / Time atorvastatin (From Lipitor) AdvReac Severe Vomiting Verified 06/23/24 06:25 Family History Mother Hypertension Cancer skin Grandmother Hypertension Diabetes Brother Cancer NHL Arthritis Brother Arthritis Surgical History History of colonoscopy Hx of BKA Status post insertion of spinal cord stimulator S/P arteriovenous (AV) fistula repair S/P arteriovenous (AV) fistula creation History of lithotripsy History of below-knee amputation of left lower extremity History of eye surgery History of temporal artery biopsy History of lymph node biopsy History of liver biopsy Partial nontraumatic amputation of right foot History of amputation of hallux History of carpal tunnel surgery History of hernia repair History of cholecystectomy History of hysterectomy History of tubal ligation Status post transmetatarsal amputation of right foot Social History Smoking Status: Never smoker second hand exposure: Yes alcohol intake: current details: rare substance use type: does not use Review of Systems (Anesthesia) ROS Narrative System reviewed and no additional complaints, except as documented.
[2024-06-23 07:24] LABS: Bedside Glucose 248 mg/dL (74-106)
--- NOTE | 2024-06-23 07:25 | PCM.HP.BLA ---
History and Physical Allergies atorvastatin (From Lipitor) Adverse Reaction (Severe, Verified 06/10/24 14:44) Vomiting Medications ?Medication ?Instructions ?Recorded ?Confirmed ?Type duloxetine 60 mg capsule,delayed 60 mg PO QHS depression 11/26/12 06/14/24 History release insulin regular hum U-500 conc 500 2.2 units subcut CONT insulin pump 10/02/15 06/14/24 History unit/mL subcutaneous soln trazodone 100 mg tablet 150 mg PO QHS sleep 12/27/15 06/14/24 History ergocalciferol (vitamin D2) 1,250 50,000 unit PO FR supplement 01/24/16 06/14/24 History mcg (50,000 unit) capsule albuterol sulfate 2.5 mg/3 mL 2.5 mg inhalation Q4H PRN PRN 06/09/16 06/14/24 History (0.083 %) solution for nebulization Wheezing gabapentin 800 mg tablet 800 mg PO TID neuropathy 05/19/17 06/14/24 History rosuvastatin 10 mg tablet 40 mg PO QHS cholesterol 06/03/17 06/14/24 History magnesium oxide 400 mg (241.3 mg 400 mg PO DAILYCM supplement 07/30/18 06/14/24 History magnesium) tablet hydroxyzine pamoate 50 mg capsule 50 mg PO TID PRN Anxiety 02/20/20 06/14/24 History duloxetine 30 mg capsule,delayed 30 mg PO DAILY depression 05/09/20 06/14/24 History release ondansetron 4 mg disintegrating 8 mg PO Q8H PRN PRN Nausea 09/03/21 06/14/24 History tablet diphenoxylate-atropine 2.5 1 tab PO BID PRN diarrhea #180 tabs 08/04/22 06/14/24 Rx mg-0.025 mg tablet (Lomotil) hyoscyamine sulfate 0.125 mg tablet 0.125 mg PO BID-QID PRN abdominal 08/04/22 06/14/24 Rx pain #360 tabs albuterol sulfate 90 mcg/actuation 2 puff inhalation Q4-6H PRN 02/26/23 06/14/24 History aerosol inhaler (ProAir HFA) shortness of breath or wheezing fenofibrate nanocrystallized 48 mg 48 mg PO DAILY . 08/11/23 06/14/24 History tablet cinacalcet 30 mg tablet 30 mg PO DAILY . 10/23/23 06/14/24 History midodrine 10 mg tablet 20 mg PO 4XD PRN . 10/23/23 06/14/24 History omeprazole 40 mg capsule,delayed 40 mg PO QHS GERD 10/23/23 06/14/24 History release oxycodone-acetaminophen 5 mg-325 1 tab PO Q6H PRN pain 5 days #20 10/30/23 06/14/24 Rx mg tablet (Percocet) tabs budesonide 3 mg 9 mg (3 x 3 mg) PO DAILY #90 caps 12/18/23 06/14/24 Rx capsule,delayed,extended release fludrocortisone 0.1 mg tablet 0.1 mg PO DAILY #30 TABLETS 12/18/23 06/14/24 Rx calcitriol 0.25 mcg capsule 0.25 mcg PO QDAY 02/03/24 06/14/24 History calcitriol 0.5 mcg capsule 0.5 mcg PO QHS . 02/03/24 06/14/24 History insulin aspart U-100 100 unit/mL See Protocol subcut ACHS diabetes 02/03/24 06/14/24 History (3 mL) subcutaneous pen mesalamine 500 mg capsule,extended 1,000 mg PO BID 02/03/24 06/14/24 History release (Pentasa) vitamin B complex-vitamin C-folic 1 tab PO QDAY 02/03/24 06/14/24 History acid 0.8 mg tablet (Nephro-[place]) lactulose 10 gram/15 mL oral 10 g (15 mL) PO BID #3,785 mL 03/15/24 06/14/24 Rx solution risankizumab-rzaa 360 mg/2.4 mL 360 mg (2.4 mL) subcut .COMPLEX . 04/11/24 06/14/24 Rx (150 mg/mL) subcut wearable #2.4 mL injector (Skyrizi) apixaban 5 mg tablet (Eliquis) 5 mg PO BID 04/20/24 06/14/24 History iron sucrose 100 mg iron/5 mL 100 mg IV QWEEK 04/26/24 06/14/24 History intravenous solution (Venofer) cholestyramine (with sugar) 4 gram 4 g PO HS #378 grams 05/06/24 06/14/24 Rx oral powder epoetin regan-epbx 2,000 unit/mL 38,000 unit subcut MO . 05/06/24 06/14/24 History injection solution (Retacrit) metoclopramide HCl 5 mg tablet 5 mg PO BID #60 tabs 05/06/24 06/14/24 Rx promethazine 12.5 mg tablet 12.5 mg PO Q6H PRN nausea and 05/06/24 06/14/24 Rx vomiting #20 tabs fluticasone fur. 200 mcg-umeclid 1 inh inhalation Q24H #60 ea 06/10/24 06/14/24 Rx 62.5 mcg-vilant 25 mcg inhalat.powder (Trelegy Ellipta) Is last menstrual period known: No Post menopausal: Yes Patient : No Have you fallen in the past year?: Yes PFSH Medical History Arteriovenous fistula History of Holter monitoring MRSA infection Open wound History of steroid therapy Thyroid disease History of renal dialysis History of renal disease Low iron Hematoma Syncope History of Crohn's disease GERD (gastroesophageal reflux disease) Chronic cough History of edema History of atrial fibrillation Secondary hyperparathyroidism DM type 2 (diabetes mellitus, type 2) Depression Asthma Migraines ESRD (end stage renal disease) on dialysis Lung nodule seen on imaging study Blindness Cataract (lens) fragments in eye following cataract surgery, bilateral Atrial fibrillation, controlled Essential hypertension Uses prosthesis Seasonal allergies Wears glasses Anxiety Insulin dependent diabetes mellitus Uses wheelchair Arthritis DVT (deep venous thrombosis) High cholesterol TIA (transient ischemic attack) Seizures Dietary restriction History of hiatal hernia Non-smoker CPAP (continuous positive airway pressure) dependence Sleep apnea Shortness of breath on exertion History of echocardiogram History of stress test Cardiology follow-up encounter Positive QuantiFERON-TB Gold test Crohn's disease Hx of pancreatitis Hepatosplenomegaly Enteritis Nausea and vomiting Alternating constipation and diarrhea Diarrhea HINTON (nonalcoholic steatohepatitis) CKD (chronic kidney disease) Viral gastroenteritis Acute right flank pain Anemia in chronic kidney disease (CKD) COVID-19 virus detected Pneumonia due to COVID-19 virus Below-knee amputation of left lower extremity Osteomyelitis of left foot History of stroke COPD (chronic obstructive pulmonary disease) IBS (irritable bowel syndrome) GERD (gastroesophageal reflux disease) Diastolic dysfunction Cellulitis of left foot Iron (Fe) deficiency anemia Acute kidney injury Right middle lobe pneumonia Hypomagnesemia Osteomyelitis of right foot Peripheral neuropathy Depression Infection of right great toe due to methicillin resistant Staphylococcus aureus (MRSA) Cellulitis of right foot History of MRSA infection Diabetes mellitus Asthma Pulmonary hypertension SLE (systemic lupus erythematosus) Surgical History History of colonoscopy Hx of BKA Status post insertion of spinal cord stimulator S/P arteriovenous (AV) fistula repair S/P arteriovenous (AV) fistula creation History of lithotripsy History of below-knee amputation of left lower extremity History of eye surgery History of temporal artery biopsy History of lymph node biopsy History of liver biopsy Partial nontraumatic amputation of right foot History of amputation of hallux History of carpal tunnel surgery History of hernia repair History of cholecystectomy History of hysterectomy History of tubal ligation Status post transmetatarsal amputation of right foot Family History Mother Hypertension Cancer skinGrandmother Hypertension DiabetesBrother Cancer NHL ArthritisBrother Arthritis Social History Smoking Status: Never smoker second hand exposure: Yes alcohol intake: current details: rare substance use type: does not use HPI HPI HPI: FORD HESTER, is a 53 F who presents to the office today for follow-up after LUE fistulogram 06/02/24 performed secondary to failed maturation of LUE AVF. She already had suture removed by dialysis unit. No new concerns. She does have continued numbness/paresthesias volar wrist and into the 4th and 5th digits; stable. ROS General General: Yes fatigue and weakness; No weight change, appetite, colon cancer or breast cancer HEENT HEENT: No difficulty swallowing, eye injury, eye surgery, swollen glands or hoarseness Endo Endocrine: Yes diabetes mellitus; No thyroid disease, thyroid cancer, Hair loss, heat intolerance or cold intolerance Skin Skin: Yes changing moles; No rash Musc Musculoskeletal: Yes back problems, arthritis and joint pain; No rheumatoid arthritis or gout Cardio Cardiovascular: Yes atrial fibrillation and shortness of breath with exertion; No murmur, pacemaker, heart disease, high blood pressure, heart attack, heart stent, palpitations or chest pain Psych Psychiatric: Yes depression; No anxiety or hearing voices Resp Respiratory: Yes shortness of breath, Yes sleep apnea, Yes cough, No COPD, No asthma, No emphysema and Yes wheezing Gastro Gastrointestinal: Yes abdominal pain, Yes nausea or vomiting, Yes diarrhea, Yes constipation, No blood in stool, Yes acid reflux, Yes hemorrhoids, No ulcers, No gallbladder problem and No black,tarry stools Shakir Hematologic: Yes blood thinners, No blood disorders, No bleeding, Yes anemia and No blood clots Neuro Neurologic: No system reviewed and no additional complaints, except as documented, No as per HPI, No abnormal gait, No abnormal hearing, No abnormal movements, No abnormal speech, No behavioral changes, Yes burning sensations, No confusion, No convulsions, Yes disequilibrium, Yes dizziness, No localized weakness, No frequent falls, Yes headache(s), Yes lack of coordination, No loss of vision, Yes memory loss, Yes numbness, Yes other visual disturbances, Yes radicular pain, No restless legs, No sensory deficit, No syncope, Yes tingling, Yes tremor(s), Yes weakness and No other Exam Const General: cooperative, comfortable and no acute distress Orientation: alert, awake and oriented x3 HENMT Head: normocephalic and atraumatic Ears: hearing grossly normal bilaterally and external ears normal Nose: external nose normal Eyes General: appearance normal, both eyes and all related structures EOM: EOM intact bilaterally Neck Neck: normal visual inspection and trachea midline Other: R IJ tunneled catheter Resp Effort & Inspection: normal respiratory effort, able to speak in complete sentences, no grunting, not labored, no respiratory distress and no retractions Other: on supplemental O2 via NC Cardio Rate: regular rate Rhythm: regular rhythm Other: L upper arm AV fistula with palpable thrill proximally, but primarily pulsatile to palpation; bruit throughout L forearm AV fistula with no palpable thrill, no bruit consistent with ligation. Skin General: no rashes or lesions noted Trauma: no lacerations or abrasions Neuro General: no focal motor deficits Speech: speech normal Psych Appearance: grossly normal Mental Status: mental status grossly normal Affect: normal affect Speech and Movement: speech and movement normal Attitude: cooperative Judgment: judgment good Coding Level of Care Code Off vis,est,level 2 Diagnoses AV fistula I77.0 Assessment and Plan Assessment and Plan (1) AV fistula: Status: Acute Plan: -revision of outflow with cadaver
[2024-06-23] MEDS: Cefazolin 2 GM in 0.9% Normal Saline (100mL Bag) 100 ML IV (07:32)
[2024-06-23] MEDS: Heparin 10,000 UNITS/10 ML Vial 10000 UNITS ×2 (08:34→09:47)
[2024-06-23] MEDS: Protamine Sulfate 50 MG/5 ML Vial IV (10:19)
--- NOTE | 2024-06-23 10:29 | DCINST_ITS ---
Discharge Instructions Diet Discharge Diet: No restrictions Activity Lifting Restrictions: do not lift > 20 lbs with left arm for 3 weeks Additional Activity Instructions:: do not submerge incision for 3 weeks Dressing / Incision Call your doctor if your incision/area has: Sudden Increased Bleeding, Increased Pain/ Swelling, Increased Redness and Foul Smelling Discharge Call your doctor if you observe: Fever of 101 or Higher Remove Dressing in: 2 days Cleanse incision/area with: Soap & Water Follow Up Care Test Results: Test results from this visit will be discussed in further detail at your follow- up appointment, if applicable. Discharge Plan Admission Attending Provider: Mikey Cavanaugh Primary Care Provider: Johann Jimenez Instructions Print Language: [place] Discharge Orders/Prescriptions Prescriptions: New oxycodone 5 mg tablet 5 mg PO Q8H PRN (Reason: pain) 3 Days Qty: 9 0RF Continued ondansetron 4 mg tablet,disintegrating 8 mg PO Q8H PRN PRN (Reason: Nausea) albuterol sulfate [ProAir HFA] 90 mcg/actuation HFA aerosol inhaler 2 puff inhalation Q4-6H PRN (Reason: shortness of breath or wheezing) calcitriol 0.5 mcg capsule 0.5 mcg PO QHS Retacrit 2,000 unit/mL solution 38,000 unit subcut MO Rx Instructions: 40,0000 units calcitriol 0.25 mcg capsule 0.25 mcg PO QDAY Nephro-[place] 0.8 mg tablet 1 tab PO QDAY promethazine 12.5 mg tablet 12.5 mg PO Q6H PRN (Reason: nausea and vomiting) Qty: 20 2RF metoclopramide HCl 5 mg tablet 5 mg PO BID Qty: 60 3RF cholestyramine (with sugar) 4 gram powder 4 g PO HS Qty: 378 1RF Rx Instructions: give w/evening meal;avoid other meds 1hr before/4-6hr after dose Trelegy Ellipta 200-62.5-25 mcg blister with device 1 inh inhalation Q24H Qty: 60 5RF duloxetine 60 MG capsule 60 mg PO QHS Patient Comments: DEPRESSION AND PAIN CONTROL insulin regular hum U-500 conc 20 ML solution 2.2 units SC CONT Patient Comments: insulin pump Rx Instructions: changed site today 02/19/20 trazodone 100 MG tablet 150 mg PO QHS Patient Comments: SLEEP ergocalciferol (vitamin D2) 50,000 UNIT capsule 50,000 unit PO FR Patient Comments: supplement gabapentin 800 MG tablet 800 mg PO TID Patient Comments: nerve pain rosuvastatin 10 mg tablet 40 mg PO QHS magnesium oxide 400 MG tablet 400 mg PO DAILYCM duloxetine 30 mg capsule,delayed release(DR/EC) 30 mg PO DAILY insulin aspart U-100 100 unit/mL (3 mL) insulin pen See Protocol SC ACHS Protocol: 6. Sliding Scale Insulin Custom Condition: mg/dl range Dose/Route: Number of Units Protocol Text: Custom Sliding Scale Patient Comments: if blood sugar is over 200. calculate reading over 200. divide in half and give that many units of insulin. hydroxyzine pamoate 50 MG capsule 50 mg PO TID PRN (Reason: Anxiety) cinacalcet 30 mg tablet 30 mg PO DAILY omeprazole 40 mg capsule,delayed release(DR/EC) 40 mg PO QHS midodrine 10 mg tablet 20 mg PO 4XD PRN (Reason: .) Rx Instructions: two tablets up to qid oxycodone-acetaminophen [Percocet] 5-325 mg tablet 1 tab PO Q6H PRN (Reason: pain) 5 Days Qty: 20 0RF fenofibrate nanocrystallized 48 mg tablet 48 mg PO DAILY Venofer 100 mg iron/5 mL solution 100 mg IV QWEEK Patient Comments: WITH DIALYSIS Rx Instructions: administer over 15 minutes diphenoxylate-atropine [Lomotil] 2.5-0.025 mg tablet 1 tab PO BID PRN (Reason: diarrhea) Qty: 180 3RF hyoscyamine sulfate 0.125 mg tablet 0.125 mg PO BID-QID PRN (Reason: abdominal pain) Qty: 360 3RF fludrocortisone 0.1 mg tablet 0.1 mg PO DAILY Qty: 30 0RF Skyrizi 360 mg/2.4 mL (150 mg/mL) wearable injector 360 mg subcut .COMPLEX Qty: 2.4 6RF Rx Instructions: 360 mg subcutaneously every 8 weeks; Held Eliquis 5 mg tablet 5 mg PO BID Hold Instructions: Resume on 06/24/24. PM dose Rx Instructions: Resume on 06/04/24 am No Action albuterol sulfate 2.5 MG/3 ML solution for nebulization 2.5 mg INHALATION Q4H PRN PRN (Reason: Wheezing) Patient Comments: shortness of breath Referrals / Follow Up: Johann Jimenez MD [Primary Care Provider] - Disposition Disposition (needs filled in before D/C Order can be placed): Home, Self Care
[2024-06-23] MEDS: Bupivacaine 0.25% 30 ML Vial (10:45)
--- NOTE | 2024-06-23 11:06 | PCM.POST.ANE ---
Anesthesia: Postop Eval I Current Vital Signs Temperature: 97.6 F Pulse Rate: 101 Blood Pressure: 145/69 Respiratory Rate: 16 Pulse Ox: 92 Assessment Airway patent: Yes Spontaneous unlabored respirations: Yes nausea: Yes Vomiting: No Anesthesia Complication: No Fluid Hydration Crystalloid volume administer (ml): 500 Total IV fluid infused: 500 Progress Note Anesthesia document: Postop Eval 1 completed: Yes
--- NOTE | 2024-06-23 11:50 | SUR.PHASEI ---
POST OPERATIVE BLOOD SUGAR WAS 317. PATIENT IS WEARING A INSULIN PUMP. SHE WAS GOING TO DO HER INSULIN CORRECTION WHEN SHE GETS TO PHASE 2 PRIOR TO EATING.
--- NOTE | 2024-06-23 11:55 | OP.PCM_ITS ---
Operative Report (Standard) Operative Information Date of Procedure: 06/23/24 Pre-Operative Diagnosis: ESRD, prior left arm fistula with outflow obstruction Post-Operative Diagnosis: same Surgery/Procedure Performed: revision left cephalic fistula with cadaver jump graft to brachial vein ligation large collateral branch x 2 electrical tests supervisor: Yes Terrazzo Worker Apprentice: Kierra Berg Tasks completed by assistant women's basketball coach: Opening, Closing, Opening & closing, Hemostasis: Tie and Retracting Type of Anesthesia: General and Local RN Documented Start/Stop Times: Operation Date: 06/23/24 07:30 Case Time Into Pre-Op 06/23/24 06:06 Anesthesia Start 06/23/24 07:32 Into Room 06/23/24 07:32 Procedure Start 06/23/24 08:08 Procedure End 06/23/24 10:49 Anesthesia End 06/23/24 10:56 Out of Room 06/23/24 10:56 Into Recovery 06/23/24 11:07 Out of Recovery 06/23/24 11:41 Into Phase II Recovery 06/23/24 11:42 Out of Phase II 06/23/24 12:35 Procedure Start Time: 08:10 Procedure Stop Time: 10:50 Select all DRAINS/GRAFTS/IMPLANTS that apply: Graft Graft details: cadaver fem- pop artery Estimated Blood Loss: 25 Specimen collected: No Description of surgery: HPI: Patient is a 53-year-old female with end-stage renal disease currently on dialysis who previously been using a forearm cephalic fistula which was no longer serviceable would have been ligated and an upper arm cephalic fistula created. This had been maturing however it had a pulsatile characteristic when palpated and a previous fistulogram revealed occlusion of the cephalic vein at the cephalic arch with multiple large collaterals ultimately filling the deep and central venous system. She had a normal brachial axillary subclavian venous outflow with no evidence of central venous occlusion or stenosis. She is taken now for revision with planned jump graft from the cephalic vein in the proximal upper arm to the brachial vein at the axilla. Description of procedure: Upon obtaining informed consent and verification correct patient procedure site patient was taken operating she was placed on general anesthesia. She was then positioned prepped and draped in usual sterile fashion a timeout performed. Ultrasound was used to evaluate the cephalic vein and then defy substantial branch as well as the location of the occlusion. Ultrasound was then used to evaluate the brachial vein which was patent of satisfactory caliber just proximal to the axilla. A location on the cephalic vein where the graft would have an agreeable angle from the cephalic to the brachial was then marked and skin anesthetized with 1% lidocaine quarter percent Marcaine. Longitudinal incision was made over the cephalic vein and Bovie electrocautery was dissect down through subcutaneous tissue. Subcutaneous tract was put in position for dissection carried down to the vein was visualized and sharp dissection was dissected free circumferentially and then writing was replaced proximal and distal. Next longitudinal incision was made in the medial aspect of the upper arm and Bovie used to dissect down through subcutaneous tissue and subtenon retractor put in position. Further section was carried down to the level the fascia which was incised and self-retaining retractor was deeper in the wound. Care was taken to identify and protect the adjacent nerve structures and sharp dissection was then used to dissect down to the brachial artery and vein. The brachial vein was dissected free proximal and distal and a right angle used to place a vessel loop. We then tunneled subcutaneously from the brachial vein surgical site to the cephalic vein surgical site and the patient was in heparinized allowed to circulate for 3 minutes. 2 separate counterincisions were made in the mid upper arm at the location of 2 sizable branches and Bovie used to dissect down through subcutaneous tissue until the branches were identified. These were then ligated with silk ties. Next cadaver femoral-popliteal artery was thawed per press department manager's instructions and flushed to ensure adequate control of the sidebranch vessels. The cephalic vein fistula was then occluded with Vesseloops and longitudinal venotomy created with 11 blade extended with Minaya scissors. The cadaver graft was then beveled to match the venotomy anastomosis performed using a 6-0 Prolene running fashion. After completing suture line vessels were flushed into the graft and the graft reoccluded with an atraumatic clamp. The cadaver was then marked to maintain orientation and secured to the tunneler and pulled through to the brachial incision. The brachial vein was then occluded with Vesseloops and longitudinal venotomy created with 11 blade extended with Minaya scissors. The graft was then cut the length and beveled to match the venotomy and anastomosis performed using 6-0 Prolene in running fashion. Prior to completing suture line the vessels were backbled and the graft flushed. After completing suture line clamps removed and satisfactory stasis was noted. There is palpable thrill in the fistula and the new graft as well as the outflow vein in appropriate low resistance signal. Heparin was then reversed with protamine the incision inspected for hemostasis. The incision was then closed with 3-0 Vicryl, 4 Monocryl and Dermabond for the skin. At the conclusion of the case patient was taken to the recovery room with anticipated discharge to home. Surgical Findings: see above Complications Complications: No
[2024-06-23 11:57] LABS: Bedside Glucose 316 mg/dL (74-106)
== END 2024-06-23 12:35 | disposition home or self-care (01) ==
LOC: SDC 05:58 → AC 05:59
PROVIDERS: Nurse Practitioner Family; PCP Family Medicine; Referring Provider Surgery Trauma Surgery; Visit Provider Surgery Trauma Surgery
PROC: (CPT 36832; principal; 2024-06-23 07:15)
DX: T82.590A Other mechanical complication of surgically created arteriovenous fistula, initial encounter (principal); I13.2 Hypertensive heart and chronic kidney disease with heart failure and with stage 5 chronic kidney disease, or end stage renal disease; N18.6 End stage renal disease; Z89.512 Acquired absence of left leg below knee; Z89.431 Acquired absence of right foot; I50.32 Chronic diastolic (congestive) heart failure; J44.9 Chronic obstructive pulmonary disease, unspecified; E11.42 Type 2 diabetes mellitus with diabetic polyneuropathy; E11.22 Type 2 diabetes mellitus with diabetic chronic kidney disease; Z79.4 Long term (current) use of insulin; X58.XXXA Exposure to other specified factors, initial encounter; Z96.41 Presence of insulin pump (external) (internal); E78.00 Pure hypercholesterolemia, unspecified; Z77.22 Contact with and (suspected) exposure to environmental tobacco smoke (acute) (chronic); Z79.01 Long term (current) use of anticoagulants; Z79.899 Other long term (current) drug therapy; Z86.16 Personal history of COVID-19; Z86.718 Personal history of other venous thrombosis and embolism
CPT/HCPCS: 36832; 01844; 36415; 82962; 83880; A4648; J2405

== ENCOUNTER → 2024-07-05 | Outpatient (CLI) | payer MEDICARE, SELFPAY ==
--- NOTE | 2024-07-05 08:43 | AVDS_ITS ---
Reason For Study Reason For Study: S/P left fistula jump graft LEFT Lt Brachial- Cephalic AVF. Inflow, 151.9/35.4 cm/sec. Inflow, 628 ml/min. Anastomosis, 444.3/219.5 cm/sec. Anastomosis, 2009 ml/min. Prox graft, 144/67.2 cm/sec. Prox graft, 1740 ml/min. Mid graft, 100.1/36.5 cm/sec. Mid graft, 552.9 ml/min. Distal graft, 26.8/15.4 cm/sec. Distal graft, 132.6 ml/min. Jump graft noted from cephalic vein distal graft to axillary area, No flow detected throughout. Secondary Branch Prox graft, 36.1/19 cm/sec. Prox graft, 208.2 ml/min. Mid graft, 29.6/11.8 cm/sec. Mid graft, 165.4 ml/min. Preliminary report given to Libia COLUNGA. VL/AV Fistula/Dialysis Graft Scan Interpretation Summary Left upper arm fistula patent with no stenosis, normal velocities, adequate adry w volume and caliber. Jump graft occluded. Ordering Physician: Libia Holden Referring Physician: Johann Jimenez Performed By: Cheryl Sutherland RVT
== END | disposition home or self-care (01) ==
LOC: CVS 08:43
PROVIDERS: PCP Family Medicine; Referring Provider Physician Assistant; Visit Provider Physician Assistant
DX: Z99.2 Dependence on renal dialysis (principal); I77.0 Arteriovenous fistula, acquired
CPT/HCPCS: 93990

== ENCOUNTER → 2024-08-04 | Outpatient (CLI) | payer MEDICARE, SELFPAY ==
--- NOTE | 2024-08-04 09:51 | AVDS_ITS ---
Reason For Study Reason For Study: LUE AVF Evaluation for Dialysis Left Velocities Lt Brachial- Cephalic AVF. Inflow, 134.5/22.7 cm/sec. Inflow, 452.7 ml/min. Anastomosis, 176.9/45.9 cm/sec. Anastomosis, 638.2 ml/min. Proximal portion of graft appears tortuous Prox graft, 124.1/30.8 cm/sec. Prox graft, 669.7 ml/min. Mid graft, 28.7/18.2 cm/sec. Mid graft, 116.0 ml/min. Distal graft, 20.8/13.9 cm/sec. Distal graft, 58.7 ml/min. Outflow - 17.1/8.0 Outflow - 59.3 ml/min Jump graft noted from cephalic vein distal graft to axillary area, No flow detected throughout. Secondary Branch (Basilic) Prox graft, 30.7/16.4 cm/sec. Prox graft, 185.3 ml/min. Preliminary report given to Libia Holden Vascular PA. Procedure LUE AVF Graft Evaluation with B-Mode, Pulse Wave and Color Doppler. VL/AV Fistula/Dialysis Graft Scan Interpretation Summary Left upper extremity fistula with adequate flow volume proximal and diminished/ inadequate volumes and velocity distal. Ordering Physician: Libia Holden Referring Physician: Johann Jimenez Performed By: Den Toribio RVT
== END | disposition home or self-care (01) ==
LOC: CVS 09:50
PROVIDERS: PCP Family Medicine; Referring Provider Physician Assistant; Visit Provider Physician Assistant
DX: I77.0 Arteriovenous fistula, acquired (principal)
CPT/HCPCS: 93990

== ENCOUNTER 2024-08-18 08:31 | Day surgery (SDC) | payer MEDICARE, SELFPAY ==
[2024-08-17 08:32] VITALS: BMI 33.9
--- NOTE | 2024-08-18 16:01 | OP.PCM_ITS ---
Operative Report (Standard) Operative Information Date of Procedure: 08/18/24 Pre-Operative Diagnosis: Malfunction of left upper extremity fistula with prior open jump graft revision that is failed. Post-Operative Diagnosis: Same Surgery/Procedure Performed: Fistulogram with angioplasty of the proximal vessel Intravascular ultrasound steeping press tender: No Type of Anesthesia: Local and Sedation,Conscious Procedure Start Time: 10:55 Procedure Stop Time: 11:30 Select all DRAINS/GRAFTS/IMPLANTS that apply: None Estimated Blood Loss: 4 Specimen collected: No Description of surgery: HPI: Patient is a 54-year-old female with a prior left upper extremity AV fistula with known impaired outflow at the cephalic arch. She previously underwent fistulogram which revealed this area of occlusion and no significant proximal disease and she was subsequently taken for a jump graft revision from the distal segment of the patent fistula to a deep vein at the axilla. Unfortunately this revision failed relatively quickly and so she is taken now for fistulogram to further define her anatomy. Description of procedure: Upon obtaining informed consent and verification correct patient procedure site the patient was taken to the Front End Application Developer where she was positioned prepped and draped in usual sterile fashion. Timeout was performed, sedation ministered Versed and fentanyl. Skin overlying the fistula at the antecubital crease anesthetized with 1% lidocaine and the vessel accessed under ultrasound guidance with a micropuncture needle wire. This was exchanged for a 6 Croatian fistula sheath which could only be advanced approximately 1 cm into the vessel. Through the dilator of the fistula sheath hand-injection fistulogram was performed which revealed significant areas of irregularity and webbing within the vessel just beyond the access site. The access wire was exchanged for a command 18 wire which was utilized to navigate this area and into the more distal vein. Ultimately were able to advance our sheath with satisfactory position within the vessel. The patient was then heparinized allowed to circulate for 3 minutes. Through the fistula sheath we performed subtraction fistulagram including runoff to the central venous system and the atriocaval junction. This confirmed obliteration of the cephalic vein at the cephalic arch with multiple collaterals emptying the fistula into the surrounding deep veins as well as into the basilic vein which itself had a mid segment occlusion. Through the sheath a quick cross catheter was advanced and using the command 18 wire we attempted to cross the total occlusion of the cephalic arch which was unsuccessful likely due to to its chronic nature. Is felt that an open revision would probably be her best option and in fact when comparing the area of the distal anastomosis of her jump graft to her best quality caliber vessels her anastomosis was performed on suboptimal vein in part due to her body habitus and chest wall girth. There is hope that a repeat revision with anastomosis within the axilla would provide better vein target. She does have significant stenosis of the inflow segment so an intravascular sound probe was advanced and recorded pullback performed of the cephalic vein f istula which confirmed greater than 50% stenosis of multiple segments as well as webbing which was interspersed throughout the segment. A Bard conquest 7 x 40 was then advanced to the sheath and inflated for multiple inflations and withdrawn. Repeat fistulogram revealed satisfactory lesion response with no extravasation or dissection and only mild residual stenosis. Next a Bard Nadia tonics 7 x 40 was advanced into position and inflated to nominal for 2 minutes and then deflated withdrawn. Repeat imaging confirmed satisfactory lesion response with brisk contrast transit though with persistent outflow drainage via multiple collaterals. Signal further endovascular procedures warranted a nylon pursestring was placed at the access site and the sheath withdrawn followed by 5 minutes of manual pressure. Heparin was reversed with protamine the patient was then taken to recovery with plan discharged home. Surgical Findings: See above Complications Complications: No
== END 2024-08-18 12:45 | disposition home or self-care (01) ==
PROVIDERS: PCP Family Medicine; Referring Provider Surgery Trauma Surgery; Visit Provider Surgery Trauma Surgery
DX: T82.898A Other specified complication of vascular prosthetic devices, implants and grafts, initial encounter (principal); I12.0 Hypertensive chronic kidney disease with stage 5 chronic kidney disease or end stage renal disease; N18.6 End stage renal disease; E11.22 Type 2 diabetes mellitus with diabetic chronic kidney disease; Z79.4 Long term (current) use of insulin; X58.XXXA Exposure to other specified factors, initial encounter; Z99.2 Dependence on renal dialysis; Z79.899 Other long term (current) drug therapy
CPT/HCPCS: 36902; 37253; 76937; 99152; 99153; C1753; C1769; C1894; C2623; Q9967; C1725; C1887; J2405

== ENCOUNTER → 2024-08-23 | Outpatient (CLI) | payer MEDICARE, SELFPAY ==
--- NOTE | 2024-08-23 15:21 | RAD_ITS ---
PROCEDURE: FOREARM 2 VIEWS 08/23/2024 REASON FOR EXAM: S/P FALL TECHNIQUE: FOREARM 2 VIEWS COMPARISON: None RAD/Forearm 2 Views IMPRESSION: No acute fracture or dislocations. Mild degenerative changes of the visualized portions of the wrist. Minimal diffuse soft tissue edema. No radiographic foreign body. Vascular atherosclerosis. Reading Location: [id number]
--- NOTE | 2024-08-23 15:21 | RAD_ITS ---
PROCEDURE: HIP, UNI W/ PELVIS 2-3 VIEWS 08/23/2024 REASON FOR EXAM: S/P FALL TECHNIQUE: HIP, UNI W/ PELVIS 2-3 VIEWS COMPARISON: None RAD/HIP, UNI W/ Pelvis 2-3 Views IMPRESSION: No acute fracture or dislocations. Mild degenerative changes of the bilateral hips. No acute soft tissue abnormalities. No radiographic foreign body. Reading Location: [id number]
== END | disposition home or self-care (01) ==
LOC: MTRAD 15:21
PROVIDERS: PCP Family Medicine; Referring Provider Physician Assistant; Visit Provider Physician Assistant
DX: M79.601 Pain in right arm (principal); M25.552 Pain in left hip
CPT/HCPCS: 73090; 73502

== ENCOUNTER 2024-09-08 11:19 | Day surgery (SDC) | payer MEDICARE, SELFPAY ==
--- NOTE | 2024-08-25 20:26 | PAT.ANE_ITS ---
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 NO PROBLEMS WITH 08/25/24 15:02 06/2024 SURGERY Cholinesterase deficiency No 08/25/24 15:02 You/Your Family Experience No 08/25/24 15:02 fever (hyperthermia) with Relationship Recent Exposure to Contagious No 06/23/24 06:34 Disease Does patient have nerve Yes: CAN TURN OFF 08/25/24 15:02 stimulator Patient instructed to have device shut off --Does patient have Pacemaker or ICD? When Was Last Pacemaker Check QUESTION #4 FULL TEXT: You/Your Family Experience fever (hyperthermia) with Anesthesia Last Oral Intake Last Oral intake: Last Oral Intake NPO since Meds taken in AM with sips of water? Meds patient instructed to take am of surgery PONV PONV - well site drilling engineer: PONV - well site drilling engineer Female Yes 08/25/24 15:02 HX of Motion Sickness No 08/25/24 15:02 HX of N/V After Surgery Yes 08/25/24 15:02 Non-Smoker Yes 08/25/24 15:02 Duration of Surgery greater Yes 08/25/24 15:02 than 60 minutes Number of Risk Factors 4 08/25/24 15:02 PONV Score Severe Risk 08/25/24 15:02 Height & Weight Height & Weight: Anesthesia: Height & Weight Height 5 ft 6 in 08/18/24 09:27 Respiratory Assessment Respiratory Assessment - well site drilling engineer: Respiratory Tract Infection Hx - well site drilling engineer Hx Respiratory Tract Infection Yes: Patient has chronic 08/25/24 15:02 cough. STOP Sleep Apnea STOP Sleep Apnea - well site drilling engineer: STOP Sleep Apnea - well site drilling engineer Hx Hypertension No 08/25/24 15:02 Hx Sleep Apnea Yes 08/25/24 15:02 CPAP Yes: WITH 2L O2 08/25/24 15:02 BIPAP No 08/25/24 15:02 Do you snore loudly (louder than talking or can be heard Do you often feel tired/ fatigued/ sleepy during daytime? Has anyone observed you stop breathing during sleep? STOP Results Positive 08/25/24 15:02 QUESTION #5 FULL TEXT : Do you snore loudly (louder than talking or can be heard through closed doors)? Tobacco Use History Tobacco Use History - well site drilling engineer: Tobacco Use History - well site drilling engineer Tobacco Use Smoking Status Never smoker 08/25/24 15:02 Hx Tobacco Use No 08/25/24 15:02 Years Smoking Packs Smoked per Day Smoking Cessation Date was within the last 15 years Hx Smoking Cessation Date Hx Smoking Cessation Counseling Hematologic Medial History Hematologic Hx - well site drilling engineer: Hematologic Medical Hx - energy control officer Hx of Blood Transfusion Yes 08/25/24 15:02 Hx of Transfusion in last 3 No 08/25/24 15:02 Months Date of Last Transfusion (if within last 3 months) Ever experience any problems No 08/25/24 15:02 with transfusion(s)? Specify any problems Hx of Preganancy in last 3 No 08/25/24 15:02 Months Nurse Filling Out Transfusion DSCHRIBER 08/25/24 15:02 & Questions: Date: 08/25/24 08/25/24 15:02 Time: 15:06 08/25/24 15:02 Patient unable to answer at this time (ie. confused, unrespo /Reproduction History /Reproductive History - well site drilling engineer: /Reproductive Hx- well site drilling engineer Hx Now No 08/25/24 15:02 Gestational Age (in weeks): EDC: Hx Hx Para Hx Section SAB No 08/25/24 15:02 [facility] Medical History (Updated 08/25/24 @ 15:09 by Sandy Raya) Contusion of left hip Contusion of right forearm Arteriovenous fistula History of Holter monitoring MRSA infection History of steroid therapy Thyroid disease History of renal dialysis History of renal disease Low iron Syncope History of Crohn's disease GERD (gastroesophageal reflux disease) Chronic cough History of edema History of atrial fibrillation Secondary hyperparathyroidism DM type 2 (diabetes mellitus, type 2) Depression Asthma Migraines ESRD (end stage renal disease) on dialysis Lung nodule seen on imaging study Blindness Cataract (lens) fragments in eye following cataract surgery, bilateral Atrial fibrillation, controlled Essential hypertension Uses prosthesis Wears glasses Anxiety Insulin dependent diabetes mellitus Uses wheelchair Arthritis DVT (deep venous thrombosis) High cholesterol TIA (transient ischemic attack) Seizures Dietary restriction History of hiatal hernia Non-smoker CPAP (continuous positive airway pressure) dependence Sleep apnea Shortness of breath on exertion History of echocardiogram History of stress test Cardiology follow-up encounter Positive QuantiFERON-TB Gold test Crohn's disease Hx of pancreatitis Hepatosplenomegaly Enteritis Nausea and vomiting Alternating constipation and diarrhea Diarrhea HINTON (nonalcoholic steatohepatitis) CKD (chronic kidney disease) Viral gastroenteritis Acute right flank pain Anemia in chronic kidney disease (CKD) COVID-19 virus detected Pneumonia due to COVID-19 virus Below-knee amputation of left lower extremity Osteomyelitis of left foot History of stroke COPD (chronic obstructive pulmonary disease) IBS (irritable bowel syndrome) GERD (gastroesophageal reflux disease) Diastolic dysfunction Cellulitis of left foot Iron (Fe) deficiency anemia Acute kidney injury Right middle lobe pneumonia Hypomagnesemia Osteomyelitis of right foot Peripheral neuropathy Depression Infection of right great toe due to methicillin resistant Staphylococcus aureus (MRSA) Cellulitis of right foot History of MRSA infection Diabetes mellitus Asthma Pulmonary hypertension SLE (systemic lupus erythematosus) Home Medications ?Medication ?Instructions ?Recorded ?Last Taken ?Type duloxetine 60 mg capsule,delayed 60 mg PO QHS depressi on 11/26/12 06/22/24 History release insulin regular hum U-500 conc 500 2.2 units subcut CO NT insulin pump 10/02/15 04/26/24 History unit/mL subcutaneous soln trazodone 100 mg tablet 150 mg PO QHS sleep 12/27/15 06/22/24 History ergocalciferol (vitamin D2) 1,250 50,000 unit PO FR kelley pplement 01/24/16 06/17/24 History mcg (50,000 unit) capsule albuterol sulfate 2.5 mg/3 mL 2.5 mg inhalation Q4H [place] N PRN 06/09/16 04/20/24 History (0.083 %) solution for nebulization Wheezing gabapentin 800 mg tablet 800 mg PO TID neuropathy 05/0306/22/24 History rosuvastatin 10 mg tablet 40 mg PO QHS cholesterol 06/22/24 History magnesium oxide 400 mg (241.3 mg 400 mg PO DAILYCM sup plement 07/30/18 06/22/24 History magnesium) tablet hydroxyzine pamoate 50 mg capsule 50 mg PO TID PRN Anx iety 02/20/20 04/25/24 History duloxetine 30 mg capsule,delayed 30 mg PO DAILY depres giles 05/09/20 06/22/24 History release ondansetron 4 mg disintegrating 8 mg PO Q8H PRN PRN Na usea 09/03/21 01/11/24 History tablet diphenoxylate-atropine 2.5 1 tab PO BID PRN diarrhea # 180 tabs 08/04/22 04/25/24 Rx mg-0.025 mg tablet (Lomotil) hyoscyamine sulfate 0.125 mg tablet 0.125 mg PO BID-QI D PRN abdominal 08/04/22 Unknown Rx pain #360 tabs albuterol sulfate 90 mcg/actuation 2 puff inhalation Q 4-6H PRN 02/26/23 06/23/24 History aerosol inhaler (ProAir HFA) shortness of breath or wh eezing fenofibrate nanocrystallized 48 mg 48 mg PO DAILY . 06/22/24 History tablet cinacalcet 30 mg tablet 30 mg PO DAILY . 10/23/23 History midodrine 10 mg tablet 20 mg PO 4XD PRN . 10/23/23 04/25/24 History omeprazole 40 mg capsule,delayed 40 mg PO BID GERD 08/0906/22/24 History release fludrocortisone 0.1 mg tablet 0.1 mg PO DAILY #30 TABL ETS 12/18/23 06/22/24 Rx calcitriol 0.25 mcg capsule 0.25 mcg PO QDAY 02/03/24 06/22/24 History calcitriol 0.5 mcg capsule 0.5 mcg PO QHS . 02/03/24 0 06/22/24 History vitamin B complex-vitamin C-folic 1 tab PO QDAY 04/25/24 History acid 0.8 mg tablet (Nephro-[place]) risankizumab-rzaa 360 mg/2.4 mL 360 mg (2.4 mL) subcut .COMPLEX . 04/11/24 06/11/24 Rx (150 mg/mL) subcut wearable #2.4 mL injector (Skyrizi) apixaban 5 mg tablet (Eliquis) 5 mg PO BID 04/20/24 History iron sucrose 100 mg iron/5 mL 100 mg IV QWEEK 04/26/24 Unknown History intravenous solution (Venofer) cholestyramine (with sugar) 4 gram 4 g PO HS #378 gram s 05/06/24 06/22/24 Rx oral powder epoetin regan-epbx 2,000 unit/mL 40,000 unit subcut MO . 05/06/24 06/20/24 History injection solution (Retacrit) promethazine 12.5 mg tablet 12.5 mg PO Q6H PRN nausea and 05/06/24 Unknown Rx vomiting #20 tabs fluticasone fur. 200 mcg-umeclid 1 inh inhalation Q24H #60 ea 06/10/24 06/23/24 Rx 62.5 mcg-vilant 25 mcg inhalat.powder (Trelegy Ellipta) insulin lispro 100 unit/mL 1 sliding scale dose subcut TID 08/12/24 Unknown History subcutaneous pen (Humalog KwikPen (U-100) Insulin) methocarbamol 500 mg tablet 500 mg PO BID PRN muscle s pasm 08/12/24 Unknown History sucroferric oxyhydroxide 500 mg 1,000 mg PO TID Unknown History chewable tablet (Velphoro) metoclopramide HCl 5 mg tablet 5 mg PO BID PRN nausea and vomiting 08/25/24 Unknown History oxycodone-acetaminophen 5 mg-325 1 tab PO TID pain 12/10 Unknown History mg tablet (Percocet) Allergy/AdvReac Type Severity Reaction Status Date / Time atorvastatin (From Lipitor) AdvReac Severe Vomiting Verified 08/25/24 14:56 Family History Mother Hypertension Cancer skin Grandmother Hypertension Diabetes Brother Cancer NHL Arthritis Brother Arthritis Surgical History History of colonoscopy Hx of BKA Status post insertion of spinal cord stimulator S/P arteriovenous (AV) fistula repair S/P arteriovenous (AV) fistula creation History of lithotripsy History of below-knee amputation of left lower extremity History of eye surgery History of temporal artery biopsy History of lymph node biopsy History of liver biopsy Partial nontraumatic amputation of right foot History of amputation of hallux History of carpal tunnel surgery History of hernia repair History of cholecystectomy History of hysterectomy History of tubal ligation Status post transmetatarsal amputation of right foot Social History Smoking Status: Never smoker second hand exposure: Yes alcohol intake: current details: rare substance use type: does not use Audit: Pertinent Findings Pertinent Findings EKG Perinent findings: 03/04/2024. Sinus tachycardia. Poor R wave progression?nonspecific?consider old anterior infarct. Stress test pertinent findings: 09/22/2022. EF of 64%. No areas of reversibility to suggest ischemia and no previous infarct. Echo (EF%) pertinent findings: 04/22/2024. EF of 60%. No aortic stenosis. Consult pertinent findings: 05/06/2024. Monster WELCH. 1. Dizziness?acute?improved with midodrine. 2. Shortness of breath on exertion?acute this is baseline. Continue with home oxygen. 3. Sleep apnea?acute?patient is using CPAP with oxygen at night. 4. Paroxysmal atrial fibrillation?acute?patient is to continue her Eliquis. 5. End-stage renal disease?chronic-patient does dialysis 5 days a week at home. Additional pertinent findings: Holter monitor. 03/28/2024. No significant ectopy to explain symptoms. Benign Holter. Normal sinus rhythm with rare PVCs and PACs. Noted symptoms in diary included chest/throat tightness, funny heartbeats, a choking feeling, dizzy/lightheadedness, shortness of breath and numbness which correlated with normal sinus rhythm and/or sinus tachycardia. Recommendation Anesthesia Recommendation Anesthesia recommendation: OPTIMIZED for anesthesia
[2024-09-02 11:32] LABS: Hematocrit 28.9 % (37-47); Hemoglobin 9.7 g/dL (12.0-15.0); Mean Corp Hgb Conc 33.6 g/dL (32-36); Mean Corpuscular Volume 99.7 fL (81-99); Mean Platelet Vol. 10.5 fl (6.2-12.0); Platelet Count 141 K/mm3 (150-450); RBC Distribution Width CV 14.6 % (11.6-14.6); RBC Distribution Width SD 52.9 fl (35.1-43.9); Red Blood Count 2.90 M/mm3 (4.2-5.4); White Blood Count 5.8 K/mm3 (4.4-11.0)
[2024-09-02 12:22] LABS: Anion Gap 21 (5-15); BUN 42 mg/dL (4-19); BUN/Creat Ratio 6.2 RATIO (10-20); Calcium,Total 9.0 mg/dL (7.6-11.0); Carbon Dioxide 22.8 mmol/L (21.0-32.0); Chloride 95 mmol/L (98-108); Glucose 125 mg/dL (70-99); Potassium 5.0 mmol/L (3.3-5.1)
--- NOTE | 2024-09-05 16:24 | PAT.ANESEVAL ---
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 NO PROBLEMS WITH 08/25/24 15:02 06/2024 SURGERY Cholinesterase deficiency No 08/25/24 15:02 You/Your Family Experience No 08/25/24 15:02 fever (hyperthermia) with Relationship Recent Exposure to Contagious No 06/23/24 06:34 Disease Does patient have nerve Yes: CAN TURN OFF 08/25/24 15:02 stimulator Patient instructed to have device shut off --Does patient have Pacemaker or ICD? When Was Last Pacemaker Check QUESTION #4 FULL TEXT: You/Your Family Experience fever (hyperthermia) with Anesthesia Last Oral Intake Last Oral intake: Last Oral Intake NPO since Meds taken in AM with sips of water? Meds patient instructed to take am of surgery PONV PONV - orthopedic shoe fitter: PONV - orthopedic shoe fitter Female Yes 08/25/24 15:02 HX of Motion Sickness No 08/25/24 15:02 HX of N/V After Surgery Yes 08/25/24 15:02 Non-Smoker Yes 08/25/24 15:02 Duration of Surgery greater Yes 08/25/24 15:02 than 60 minutes Number of Risk Factors 4 08/25/24 15:02 PONV Score Severe Risk 08/25/24 15:02 Height & Weight Height & Weight: Anesthesia: Height & Weight Height 5 ft 6 in 08/18/24 09:27 Respiratory Assessment Respiratory Assessment - orthopedic shoe fitter: Respiratory Tract Infection Hx - orthopedic shoe fitter Hx Respiratory Tract Infection Yes: Patient has chronic 08/25/24 15:02 cough. STOP Sleep Apnea STOP Sleep Apnea - orthopedic shoe fitter: STOP Sleep Apnea - orthopedic shoe fitter Hx Hypertension No 08/25/24 15:02 Hx Sleep Apnea Yes 08/25/24 15:02 CPAP Yes: WITH 2L O2 08/25/24 15:02 BIPAP No 08/25/24 15:02 Do you snore loudly (louder than talking or can be heard Do you often feel tired/ fatigued/ sleepy during daytime? Has anyone observed you stop breathing during sleep? STOP Results Positive 08/25/24 15:02 QUESTION #5 FULL TEXT : Do you snore loudly (louder than talking or can be heard through closed doors)? Tobacco Use History Tobacco Use History - orthopedic shoe fitter: Tobacco Use History - orthopedic shoe fitter Tobacco Use Smoking Status Never smoker 08/25/24 15:02 Hx Tobacco Use No 08/25/24 15:02 Years Smoking Packs Smoked per Day Smoking Cessation Date was within the last 15 years Hx Smoking Cessation Date Hx Smoking Cessation Counseling Hematologic Medial History Hematologic Hx - orthopedic shoe fitter: Hematologic Medical Hx - egyptologist Hx of Blood Transfusion Yes 08/25/24 15:02 Hx of Transfusion in last 3 No 08/25/24 15:02 Months Date of Last Transfusion (if within last 3 months) Ever experience any problems No 08/25/24 15:02 with transfusion(s)? Specify any problems Hx of Preganancy in last 3 No 08/25/24 15:02 Months Nurse Filling Out Transfusion DSCHRIBER 08/25/24 15:02 & Questions: Date: 08/25/24 08/25/24 15:02 Time: 15:06 08/25/24 15:02 Patient unable to answer at this time (ie. confused, unrespo /Reproduction History /Reproductive History - orthopedic shoe fitter: /Reproductive Hx- orthopedic shoe fitter Hx Now No 08/25/24 15:02 Gestational Age (in weeks): EDC: Hx Hx Para Hx Section SAB No 08/25/24 15:02 [facility] Medical History (Updated 08/25/24 @ 15:09 by Sandy Raya) Contusion of left hip Contusion of right forearm Arteriovenous fistula History of Holter monitoring MRSA infection History of steroid therapy Thyroid disease History of renal dialysis History of renal disease Low iron Syncope History of Crohn's disease GERD (gastroesophageal reflux disease) Chronic cough History of edema History of atrial fibrillation Secondary hyperparathyroidism DM type 2 (diabetes mellitus, type 2) Depression Asthma Migraines ESRD (end stage renal disease) on dialysis Lung nodule seen on imaging study Blindness Cataract (lens) fragments in eye following cataract surgery, bilateral Atrial fibrillation, controlled Essential hypertension Uses prosthesis Wears glasses Anxiety Insulin dependent diabetes mellitus Uses wheelchair Arthritis DVT (deep venous thrombosis) High cholesterol TIA (transient ischemic attack) Seizures Dietary restriction History of hiatal hernia Non-smoker CPAP (continuous positive airway pressure) dependence Sleep apnea Shortness of breath on exertion History of echocardiogram History of stress test Cardiology follow-up encounter Positive QuantiFERON-TB Gold test Crohn's disease Hx of pancreatitis Hepatosplenomegaly Enteritis Nausea and vomiting Alternating constipation and diarrhea Diarrhea HINTON (nonalcoholic steatohepatitis) CKD (chronic kidney disease) Viral gastroenteritis Acute right flank pain Anemia in chronic kidney disease (CKD) COVID-19 virus detected Pneumonia due to COVID-19 virus Below-knee amputation of left lower extremity Osteomyelitis of left foot History of stroke COPD (chronic obstructive pulmonary disease) IBS (irritable bowel syndrome) GERD (gastroesophageal reflux disease) Diastolic dysfunction Cellulitis of left foot Iron (Fe) deficiency anemia Acute kidney injury Right middle lobe pneumonia Hypomagnesemia Osteomyelitis of right foot Peripheral neuropathy Depression Infection of right great toe due to methicillin resistant Staphylococcus aureus (MRSA) Cellulitis of right foot History of MRSA infection Diabetes mellitus Asthma Pulmonary hypertension SLE (systemic lupus erythematosus) Home Medications ?Medication ?Instructions ?Recorded ?Last Taken ?Type duloxetine 60 mg capsule,delayed 60 mg PO QHS depression 11/26/12 06/22/24 History release insulin regular hum U-500 conc 500 2.2 units subcut CONT insulin pump 10/02/15 04/26/24 History unit/mL subcutaneous soln trazodone 100 mg tablet 150 mg PO QHS sleep 12/27/15 06/22/24 History ergocalciferol (vitamin D2) 1,250 50,000 unit PO FR supplement 01/24/16 06/17/24 History mcg (50,000 unit) capsule albuterol sulfate 2.5 mg/3 mL 2.5 mg inhalation Q4H PRN PRN 06/09/16 04/20/24 History (0.083 %) solution for nebulization Wheezing gabapentin 800 mg tablet 800 mg PO TID neuropathy 05/19/17 06/22/24 History rosuvastatin 10 mg tablet 40 mg PO QHS cholesterol 06/03/17 06/22/24 History magnesium oxide 400 mg (241.3 mg 400 mg PO DAILYCM supplement 07/30/18 06/22/24 History magnesium) tablet hydroxyzine pamoate 50 mg capsule 50 mg PO TID PRN Anxiety 02/20/20 04/25/24 History duloxetine 30 mg capsule,delayed 30 mg PO DAILY depression 05/09/20 06/22/24 History release ondansetron 4 mg disintegrating 8 mg PO Q8H PRN PRN Nausea 09/03/21 01/11/24 History tablet diphenoxylate-atropine 2.5 1 tab PO BID PRN diarrhea #180 tabs 08/04/22 04/25/24 Rx mg-0.025 mg tablet (Lomotil) hyoscyamine sulfate 0.125 mg tablet 0.125 mg PO BID-QID PRN abdominal 08/04/22 Unknown Rx pain #360 tabs albuterol sulfate 90 mcg/actuation 2 puff inhalation Q4-6H PRN 02/26/23 06/23/24 History aerosol inhaler (ProAir HFA) shortness of breath or wheezing fenofibrate nanocrystallized 48 mg 48 mg PO DAILY . 08/11/23 06/22/24 History tablet cinacalcet 30 mg tablet 30 mg PO DAILY . 10/23/23 06/22/24 History midodrine 10 mg tablet 20 mg PO 4XD PRN . 10/23/23 04/25/24 History omeprazole 40 mg capsule,delayed 40 mg PO BID GERD 10/23/23 06/22/24 History release fludrocortisone 0.1 mg tablet 0.1 mg PO DAILY #30 TABLETS 12/18/23 06/22/24 Rx calcitriol 0.25 mcg capsule 0.25 mcg PO QDAY 02/03/24 06/22/24 History calcitriol 0.5 mcg capsule 0.5 mcg PO QHS . 02/03/24 06/22/24 History vitamin B complex-vitamin C-folic 1 tab PO QDAY 02/03/24 04/25/24 History acid 0.8 mg tablet (Nephro-[place]) risankizumab-rzaa 360 mg/2.4 mL 360 mg (2.4 mL) subcut .COMPLEX . 04/11/24 06/11/24 Rx (150 mg/mL) subcut wearable #2.4 mL injector (Skyrizi) apixaban 5 mg tablet (Eliquis) 5 mg PO BID 04/20/24 06/19/24 History iron sucrose 100 mg iron/5 mL 100 mg IV QWEEK 04/26/24 Unknown History intravenous solution (Venofer) cholestyramine (with sugar) 4 gram 4 g PO HS #378 grams 05/06/24 06/22/24 Rx oral powder epoetin regan-epbx 2,000 unit/mL 40,000 unit subcut [place] . 05/06/24 06/20/24 History injection solution (Retacrit) promethazine 12.5 mg tablet 12.5 mg PO Q6H PRN nausea and 05/06/24 Unknown Rx vomiting #20 tabs fluticasone fur. 200 mcg-umeclid 1 inh inhalation Q24H #60 ea 06/10/24 06/23/24 Rx 62.5 mcg-vilant 25 mcg inhalat.powder (Trelegy Ellipta) insulin lispro 100 unit/mL 1 sliding scale dose subcut TID 08/12/24 Unknown History subcutaneous pen (Humalog KwikPen (U-100) Insulin) methocarbamol 500 mg tablet 500 mg PO BID PRN muscle spasm 08/12/24 Unknown History sucroferric oxyhydroxide 500 mg 1,000 mg PO TID 08/12/24 Unknown History chewable tablet (Velphoro) metoclopramide HCl 5 mg tablet 5 mg PO BID PRN nausea and vomiting 08/25/24 Unknown History oxycodone-acetaminophen 5 mg-325 1 tab PO TID pain 08/25/24 Unknown History mg tablet (Percocet) Allergy/AdvReac Type Severity Reaction Status Date / Time atorvastatin (From Lipitor) AdvReac Severe Vomiting Verified 08/25/24 14:56 Family History Mother Hypertension Cancer skin Grandmother Hypertension Diabetes Brother Cancer NHL Arthritis Brother Arthritis Surgical History History of colonoscopy Hx of BKA Status post insertion of spinal cord stimulator S/P arteriovenous (AV) fistula repair S/P arteriovenous (AV) fistula creation History of lithotripsy History of below-knee amputation of left lower extremity History of eye surgery History of temporal artery biopsy History of lymph node biopsy History of liver biopsy Partial nontraumatic amputation of right foot History of amputation of hallux History of carpal tunnel surgery History of hernia repair History of cholecystectomy History of hysterectomy History of tubal ligation Status post transmetatarsal amputation of right foot Social History Smoking Status: Never smoker second hand exposure: Yes alcohol intake: current details: rare substance use type: does not use Audit: Pertinent Findings HISTORY of Pertinent Findings History of Pertinent Findings: EKG Pertinent Findings EKG Perinent findings 03/04/2024. Sinus 08/25/24 20:34 tachycardia. Poor R wave progression?nonspecific? consider old anterior infarct. Stress Test Pertinent Findings Stress test pertinent findings 09/22/2022. EF of 64%. No 08/25/24 20:34 areas of reversibility to suggest ischemia and no previous infarct. Echo Pertinent Findings Echo (EF%) pertinent findings 04/22/2024. EF of 60%. No 08/25/24 20:34 aortic stenosis. Consult Pertinent Findings Consult pertinent findings 05/06/2024. Monster WELCH. 08/25/24 20:34 1. Dizziness?acute?improved with midodrine. 2. Shortness of breath on exertion?acute this is baseline. Continue with home oxygen. 3. Sleep apnea?acute? patient is using CPAP with oxygen at night. 4. Paroxysmal atrial fibrillation?acute?patient is to continue her Eliquis. 5. End-stage renal disease? chronic-patient does dialysis 5 days a week at home. Additional Pertinent Findings Additional pertinent findings Holter monitor. 03/28/2024. 08/25/24 20:34 No significant ectopy to explain symptoms. Benign Holter. Normal sinus rhythm with rare PVCs and PACs. Noted symptoms in diary included chest/throat tightness, funny heartbeats, a choking feeling, dizzy/ lightheadedness, shortness of breath and numbness which correlated with normal sinus rhythm and/or sinus tachycardia. Pertinent Findings Additional pertinent findings: Hemoglobin is 9.7, which is below normal but acceptable for surgery. Creatinine is 6.84 which is outside normal parameters but is within the range that she has been in the past year. Recommendation Anesthesia Recommendation Anesthesia recommendation: OPTIMIZED for anesthesia
[2024-09-08] VITALS (11 sets, daily range): BP systolic 112–132; BP diastolic 60–73; PULSE 99–110; RESP 18–20; TEMP 36.1–36.6; O2SAT 92–100; BMI 33.9
[2024-09-08] MEDS: 0.9% Normal Saline (500mL Bag) 500 ML 15 ML IV (11:45)
--- NOTE | 2024-09-08 12:57 | PCM.PRE.AN2 ---
ASA Classification* ASA Classification ASA Classification: 3 Assessment & Plan Anesthesia* Anesthesia Assessment Anesthesia Assessment: Discussed sedation and/or anesthesia options, risks, benefits, and alternatives with patient/parents/legal guardian/POA. Questions invited. The patient/parents/legal guardian/POA seems to understand and agrees to proceed with anesthesia plan. Reviewed the physical assessment, medical history, allergy history and patient home medications list prior to surgery/procedure/anesthetic and documented any changes. Performed airway and anesthesia risk assessments. Anesthesia Type Anesthesia Type: General History Source History Obtained from:: Patient and Chart Anesthesia Focused Assessment* Temperature: 97.9 F Pulse Rate: 99 Blood Pressure: 112/66 Respiratory Rate: 18 Pulse Ox: 100 Oxygen Delivery Method: Nasal Cannula Oxygen Flow Rate (L/min): 2 Airway Assessment Mouth opens: >3 cm Mallampati Score: III Teeth Condition: Chipped/Broken (left lower wisdom tooth) Neck Range of motion (ROM): Full ROM Comment: May need video laryngoscopy Labs Anesthesia Preop lab: CBC WBC 5.8 K/mm3 (4.4-11.0) 09/02/24 10:09/02/24 RBC 2.90 M/mm3 (4.2-5.4) L 09/02/24 10:09/02/24 Hgb 9.7 g/dL (12.0-15.0) L 09/02/24 10:09/02/24 Hct 28.9 % (37-47) L 09/02/24 10:09/02/24 Plt Count 141 K/mm3 (150-450) L 09/02/24 10:09/02/24 CHEMISTRY Potassium 5.0 mmol/L (3.3-5.1) 09/02/24 10:09/02/24 Sodium 138 mmol/L (133-145) 09/02/24 10:09/02/24 Magnesium 2.4 mg/dL (1.6-2.6) 10/26/23 06:15 10/26/23 Phosphorus 8.0 mg/dL (2.5-4.9) H 10/26/23 06:15 10/26/23 BUN 42 mg/dL (4-19) H 09/02/24 10:33 09/02/24 Creatinine 6.84 mg/dL (0.70-1.20) H 09/02/24 10:33 09/02/24 Glucose 125 mg/dL (70-99) H 09/02/24 10:33 09/02/24 POC Glucose 316 mg/dL (74-106) H 06/23/24 11:39 06/23/24 TSH 1.58 uIU/mL (0.358-3.74) 02/04/23 15:34 02/04/23 COAG PT 14.9 SECONDS (11.7-14.9) 03/18/24 12:26 03/18/24 Pre-Assessment Diagnosis/Proposed Procedure Planned Operative Procedure(s): LUE AV FISTULA REVISION WITH CADAVER JUMP GRAFT Anesthesia History Anesthesia History - lower in supervisor: Anesthesia History - lower in supervisor Hx Hospitalization Yes: INFECTION OF BACK FROM 08/25/24 15:02 PAIN STIMULATOR Any Problems With Anesthesia Yes: PONV. NO PROBLEMS WITH 08/25/24 15:02 06/2024 SURGERY Cholinesterase deficiency No 08/25/24 15:02 You/Your Family Experience No 08/25/24 15:02 fever (hyperthermia) with Relationship Recent Exposure to Contagious No 09/08/24 12:09 Disease Does patient have nerve Yes: CAN TURN OFF 08/25/24 15:02 stimulator Patient instructed to have device shut off --Does patient have Pacemaker No 09/08/24 12:09 or ICD? When Was Last Pacemaker Check QUESTION #4 FULL TEXT: You/Your Family Experience fever (hyperthermia) with Anesthesia Last Oral Intake Last Oral intake: Last Oral Intake NPO since 09:00 09/08/24 12:09 Meds taken in AM with sips of Yes 09/08/24 12:09 water? Meds patient instructed to INHALER, OMEPRAZOLE 09/08/24 12:09 take am of surgery PONV PONV - lower in supervisor: PONV - lower in supervisor Female Yes 08/25/24 15:02 HX of Motion Sickness No 08/25/24 15:02 HX of N/V After Surgery Yes 08/25/24 15:02 Non-Smoker Yes 08/25/24 15:02 Duration of Surgery greater Yes 08/25/24 15:02 than 60 minutes Number of Risk Factors 4 08/25/24 15:02 PONV Score Severe Risk 08/25/24 15:02 Height & Weight Height & Weight: Anesthesia: Height & Weight Height 5 ft 6 in 09/08/24 12:09 Weight: 95.254 kg 09/08/24 12:09 Body Mass Index (BMI) 33.9 09/08/24 12:09 Respiratory Assessment Respiratory Assessment - lower in supervisor: Respiratory Tract Infection Hx - lower in supervisor Hx Respiratory Tract Infection Yes: Patient has chronic 08/25/24 15:02 cough. STOP Sleep Apnea STOP Sleep Apnea - lower in supervisor: STOP Sleep Apnea - lower in supervisor Hx Hypertension No 08/25/24 15:02 Hx Sleep Apnea Yes 08/25/24 15:02 CPAP Yes: WITH 2L O2 08/25/24 15:02 BIPAP No 08/25/24 15:02 Do you snore loudly (louder than talking or can be heard Do you often feel tired/ fatigued/ sleepy during daytime? Has anyone observed you stop breathing during sleep? STOP Results Positive 08/25/24 15:02 QUESTION #5 FULL TEXT : Do you snore loudly (louder than talking or can be heard through closed doors)? 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 Specify any problems Hx of Preganancy in last 3 No 08/25/24 15:02 Months Nurse Filling Out Transfusion DSCHRIBER 08/25/24 15:02 & Questions: Date: 08/25/24 08/25/24 15:02 Time: 15:06 08/25/24 15:02 Patient unable to answer at this time (ie. confused, unrespo /Reproduction History /Reproductive History - lower in supervisor: /Reproductive Hx- lower in supervisor Hx Now No 08/25/24 15:02 Gestational Age (in weeks): EDC: Hx Hx Para Hx Section SAB No 08/25/24 15:02 Active Medications Active Medications: Current Medications Generic Name Dose Route Start Last Admin Trade Name Freq PRN Reason Stop Dose Admin Cefazolin Sodium 2 gm/ Sodium 110 mls @ 200 mls/hr 09/08/24 13:00 09/08/24 12:53 Chloride IV 09/08/24 13:32 Not Given INTRAOP ONE Sodium Chloride 500 mls @ 0 mls/hr 09/08/24 11:45 09/08/24 11:45 IV 15 mls/hr .Q0M JOE Administration KVO PFSH Medical History Contusion of left hip Contusion of right forearm Arteriovenous fistula History of Holter monitoring MRSA infection History of steroid therapy Thyroid disease History of renal dialysis History of renal disease Low iron Syncope History of Crohn's disease GERD (gastroesophageal reflux disease) Chronic cough History of edema History of atrial fibrillation Secondary hyperparathyroidism DM type 2 (diabetes mellitus, type 2) Depression Asthma Migraines ESRD (end stage renal disease) on dialysis Lung nodule seen on imaging study Blindness Cataract (lens) fragments in eye following cataract surgery, bilateral Atrial fibrillation, controlled Essential hypertension Uses prosthesis Wears glasses Anxiety Insulin dependent diabetes mellitus Uses wheelchair Arthritis DVT (deep venous thrombosis) High cholesterol TIA (transient ischemic attack) Seizures Dietary restriction History of hiatal hernia Non-smoker CPAP (continuous positive airway pressure) dependence Sleep apnea Shortness of breath on exertion History of echocardiogram History of stress test Cardiology follow-up encounter Positive QuantiFERON-TB Gold test Crohn's disease Hx of pancreatitis Hepatosplenomegaly Enteritis Nausea and vomiting Alternating constipation and diarrhea Diarrhea HINTON (nonalcoholic steatohepatitis) CKD (chronic kidney disease) Viral gastroenteritis Acute right flank pain Anemia in chronic kidney disease (CKD) COVID-19 virus detected Pneumonia due to COVID-19 virus Below-knee amputation of left lower extremity Osteomyelitis of left foot History of stroke COPD (chronic obstructive pulmonary disease) IBS (irritable bowel syndrome) GERD (gastroesophageal reflux disease) Diastolic dysfunction Cellulitis of left foot Iron (Fe) deficiency anemia Acute kidney injury Right middle lobe pneumonia Hypomagnesemia Osteomyelitis of right foot Peripheral neuropathy Depression Infection of right great toe due to methicillin resistant Staphylococcus aureus (MRSA) Cellulitis of right foot History of MRSA infection Diabetes mellitus Asthma Pulmonary hypertension SLE (systemic lupus erythematosus) Home Medications ?Medication ?Instructions ?Recorded ?Last Taken ?Type duloxetine 60 mg capsule,delayed 60 mg PO QHS depression 11/26/12 06/22/24 History release insulin regular hum U-500 conc 500 2.2 units subcut CONT insulin pump 10/02/15 04/26/24 History unit/mL subcutaneous soln trazodone 100 mg tablet 150 mg PO QHS sleep 12/27/15 06/22/24 History ergocalciferol (vitamin D2) 1,250 50,000 unit PO FR supplement 01/24/16 06/17/24 History mcg (50,000 unit) capsule albuterol sulfate 2.5 mg/3 mL 2.5 mg inhalation Q4H PRN PRN 06/09/16 04/20/24 History (0.083 %) solution for nebulization Wheezing gabapentin 800 mg tablet 800 mg PO TID neuropathy 05/19/17 06/22/24 History rosuvastatin 10 mg tablet 40 mg PO QHS cholesterol 06/03/17 06/22/24 History magnesium oxide 400 mg (241.3 mg 400 mg PO DAILYCM supplement 07/30/18 06/22/24 History magnesium) tablet hydroxyzine pamoate 50 mg capsule 50 mg PO TID PRN Anxiety 02/20/20 04/25/24 History duloxetine 30 mg capsule,delayed 30 mg PO DAILY depression 05/09/20 06/22/24 History release ondansetron 4 mg disintegrating 8 mg PO Q8H PRN PRN Nausea 09/03/21 01/11/24 History tablet diphenoxylate-atropine 2.5 1 tab PO BID PRN diarrhea #180 tabs 08/04/22 04/25/24 Rx mg-0.025 mg tablet (Lomotil) hyoscyamine sulfate 0.125 mg tablet 0.125 mg PO BID-QID PRN abdominal 08/04/22 Unknown Rx pain #360 tabs albuterol sulfate 90 mcg/actuation 2 puff inhalation Q4-6H PRN 02/26/23 06/23/24 History aerosol inhaler (ProAir HFA) shortness of breath or wheezing fenofibrate nanocrystallized 48 mg 48 mg PO DAILY . 08/11/23 06/22/24 History tablet cinacalcet 30 mg tablet 30 mg PO DAILY . 10/23/23 06/22/24 History midodrine 10 mg tablet 20 mg PO 4XD PRN . 10/23/23 04/25/24 History omeprazole 40 mg capsule,delayed 40 mg PO BID GERD 10/23/23 09/08/24 09:30 History release fludrocortisone 0.1 mg tablet 0.1 mg PO DAILY #30 TABLETS 12/18/23 06/22/24 Rx calcitriol 0.25 mcg capsule 0.25 mcg PO QDAY 02/03/24 06/22/24 History calcitriol 0.5 mcg capsule 0.5 mcg PO QHS . 02/03/24 06/22/24 History vitamin B complex-vitamin C-folic 1 tab PO QDAY 02/03/24 04/25/24 History acid 0.8 mg tablet (Nephro-[place]) risankizumab-rzaa 360 mg/2.4 mL 360 mg (2.4 mL) subcut .COMPLEX . 04/11/24 06/11/24 Rx (150 mg/mL) subcut wearable #2.4 mL injector (Skyrizi) apixaban 5 mg tablet (Eliquis) 5 mg PO BID 04/20/24 09/04/24 History iron sucrose 100 mg iron/5 mL 100 mg IV QWEEK 04/26/24 Unknown History intravenous solution (Venofer) cholestyramine (with sugar) 4 gram 4 g PO HS #378 grams 05/06/24 06/22/24 Rx oral powder epoetin regan-epbx 2,000 unit/mL 40,000 unit subcut MO . 05/06/24 06/20/24 History injection solution (Retacrit) promethazine 12.5 mg tablet 12.5 mg PO Q6H PRN nausea and 05/06/24 Unknown Rx vomiting #20 tabs fluticasone fur. 200 mcg-umeclid 1 inh inhalation Q24H #60 ea 06/10/24 09/08/24 09:30 Rx 62.5 mcg-vilant 25 mcg inhalat.powder (Trelegy Ellipta) insulin lispro 100 unit/mL 1 sliding scale dose subcut TID 08/12/24 Unknown History subcutaneous pen (Humalog KwikPen (U-100) Insulin) methocarbamol 500 mg tablet 500 mg PO BID PRN muscle spasm 08/12/24 Unknown History sucroferric oxyhydroxide 500 mg 1,000 mg PO TID 08/12/24 Unknown History chewable tablet (Velphoro) metoclopramide HCl 5 mg tablet 5 mg PO BID PRN nausea and vomiting 08/25/24 Unknown History oxycodone-acetaminophen 5 mg-325 1 tab PO TID pain 08/25/24 Unknown History mg tablet (Percocet) Allergy/AdvReac Type Severity Reaction Status Date / Time atorvastatin (From Lipitor) AdvReac Severe Vomiting Verified 09/08/24 12:06 Family History Mother Hypertension Cancer skin Grandmother Hypertension Diabetes Brother Cancer NHL Arthritis Brother Arthritis Surgical History History of colonoscopy Hx of BKA Status post insertion of spinal cord stimulator S/P arteriovenous (AV) fistula repair S/P arteriovenous (AV) fistula creation History of lithotripsy History of below-knee amputation of left lower extremity History of eye surgery History of temporal artery biopsy History of lymph node biopsy History of liver biopsy Partial nontraumatic amputation of right foot History of amputation of hallux History of carpal tunnel surgery History of hernia repair History of cholecystectomy History of hysterectomy History of tubal ligation Status post transmetatarsal amputation of right foot Social History Smoking Status: Never smoker second hand exposure: Yes alcohol intake: current details: rare substance use type: does not use Review of Systems (Anesthesia) ROS Narrative System reviewed and no additional complaints, except as documented.
--- NOTE | 2024-09-08 14:25 | PCM.HP.BLA ---
History and Physical Allergies atorvastatin (From Lipitor) Adverse Reaction (Severe, Verified 08/04/24 10:45) Vomiting Medications ?Medication ?Instructions ?Recorded ?Confirmed ?Type duloxetine 60 mg capsule,delayed 60 mg PO QHS depression 11/26/12 08/04/24 History release insulin regular hum U-500 conc 500 2.2 units subcut CONT insulin pump 10/02/15 08/04/24 History unit/mL subcutaneous soln trazodone 100 mg tablet 150 mg PO QHS sleep 12/27/15 08/04/24 History ergocalciferol (vitamin D2) 1,250 50,000 unit PO FR supplement 01/24/16 08/04/24 History mcg (50,000 unit) capsule albuterol sulfate 2.5 mg/3 mL 2.5 mg inhalation Q4H PRN PRN 06/09/16 08/04/24 History (0.083 %) solution for nebulization Wheezing gabapentin 800 mg tablet 800 mg PO TID neuropathy 05/19/17 08/04/24 History rosuvastatin 10 mg tablet 40 mg PO QHS cholesterol 06/03/17 08/04/24 History magnesium oxide 400 mg (241.3 mg 400 mg PO DAILYCM supplement 07/30/18 08/04/24 History magnesium) tablet hydroxyzine pamoate 50 mg capsule 50 mg PO TID PRN Anxiety 02/20/20 08/04/24 History duloxetine 30 mg capsule,delayed 30 mg PO DAILY depression 05/09/20 08/04/24 History release ondansetron 4 mg disintegrating 8 mg PO Q8H PRN PRN Nausea 09/03/21 08/04/24 History tablet diphenoxylate-atropine 2.5 1 tab PO BID PRN diarrhea #180 tabs 08/04/22 08/04/24 Rx mg-0.025 mg tablet (Lomotil) hyoscyamine sulfate 0.125 mg tablet 0.125 mg PO BID-QID PRN abdominal 08/04/22 08/04/24 Rx pain #360 tabs albuterol sulfate 90 mcg/actuation 2 puff inhalation Q4-6H PRN 02/26/23 08/04/24 History aerosol inhaler (ProAir HFA) shortness of breath or wheezing fenofibrate nanocrystallized 48 mg 48 mg PO DAILY . 08/11/23 08/04/24 History tablet cinacalcet 30 mg tablet 30 mg PO DAILY . 10/23/23 08/04/24 History midodrine 10 mg tablet 20 mg PO 4XD PRN . 10/23/23 08/04/24 History omeprazole 40 mg capsule,delayed 40 mg PO QHS GERD 10/23/23 08/04/24 History release oxycodone-acetaminophen 5 mg-325 1 tab PO Q6H PRN pain 5 days #20 10/30/23 08/04/24 Rx mg tablet (Percocet) tabs fludrocortisone 0.1 mg tablet 0.1 mg PO DAILY #30 TABLETS 12/18/23 08/04/24 Rx calcitriol 0.25 mcg capsule 0.25 mcg PO QDAY 02/03/24 08/04/24 History calcitriol 0.5 mcg capsule 0.5 mcg PO QHS . 02/03/24 08/04/24 History insulin aspart U-100 100 unit/mL See Protocol subcut ACHS diabetes 02/03/24 08/04/24 History (3 mL) subcutaneous pen vitamin B complex-vitamin C-folic 1 tab PO QDAY 02/03/24 08/04/24 History acid 0.8 mg tablet (Nephro-[place]) risankizumab-rzaa 360 mg/2.4 mL 360 mg (2.4 mL) subcut .COMPLEX . 04/11/24 08/04/24 Rx (150 mg/mL) subcut wearable #2.4 mL injector (Skyrizi) apixaban 5 mg tablet (Eliquis) 5 mg PO BID 04/20/24 08/04/24 History Held on 06/23/24. Instructions: Resume on 06/24/24. PM dose iron sucrose 100 mg iron/5 mL 100 mg IV QWEEK 04/26/24 08/04/24 History intravenous solution (Venofer) cholestyramine (with sugar) 4 gram 4 g PO HS #378 grams 05/06/24 08/04/24 Rx oral powder epoetin regan-epbx 2,000 unit/mL 38,000 unit subcut MO . 05/06/24 08/04/24 History injection solution (Retacrit) metoclopramide HCl 5 mg tablet 5 mg PO BID #60 tabs 05/06/24 08/04/24 Rx promethazine 12.5 mg tablet 12.5 mg PO Q6H PRN nausea and 05/06/24 08/04/24 Rx vomiting #20 tabs fluticasone fur. 200 mcg-umeclid 1 inh inhalation Q24H #60 ea 06/10/24 08/04/24 Rx 62.5 mcg-vilant 25 mcg inhalat.powder (Trelegy Ellipta) Is last menstrual period known: No Post menopausal: Yes Patient : No Have you fallen in the past year?: Yes Subjective Details: FORD HESTER, is a 54 F who presents to the office today for postop follow-up s/p revision left cephalic fistula with cadaver jump graft to brachial vein and ligation large collateral branch x 2 on 06/23/24. The cadaver jump graft has occluded, confirmed on duplex 07/05/24; however, the remainder of the fistula was patent and the hope was that it would continue to mature and be viable for use for dialysis even without the jump graft which was created to improve venous outflow. She had repeat duplex prior to her appointment today and preliminary report unfortunately demonstrated reduced velocities from last exam, no progress toward maturation. She continues to have some forearm numbness. Objective Details: A&Ox3, NAD RRR Nonlabored respirations, able to speak in complete sentences L upper arm AV fistula with palpable thrill/pulse and bruit throughout; no palpable thrill or bruit through the cadaver graft Incision sites well-healed; no dehiscence, erythema. Coding Level of Care Code Off vis,est,level 2 Diagnoses AV fistula I77.0 [facility] Medical History Pulmonary hypertension Arteriovenous fistula History of Holter monitoring MRSA infection Open wound History of steroid therapy Thyroid disease History of renal dialysis History of renal disease Low iron Hematoma Syncope History of Crohn's disease GERD (gastroesophageal reflux disease) Chronic cough History of edema History of atrial fibrillation Secondary hyperparathyroidism DM type 2 (diabetes mellitus, type 2) Depression Asthma Migraines ESRD (end stage renal disease) on dialysis Lung nodule seen on imaging study Blindness Cataract (lens) fragments in eye following cataract surgery, bilateral Atrial fibrillation, controlled Essential hypertension Uses prosthesis Seasonal allergies Wears glasses Anxiety Insulin dependent diabetes mellitus Uses wheelchair Arthritis DVT (deep venous thrombosis) High cholesterol TIA (transient ischemic attack) Seizures Dietary restriction History of hiatal hernia Non-smoker CPAP (continuous positive airway pressure) dependence Sleep apnea Shortness of breath on exertion History of echocardiogram History of stress test Cardiology follow-up encounter Positive QuantiFERON-TB Gold test Crohn's disease Hx of pancreatitis Hepatosplenomegaly Enteritis Nausea and vomiting Alternating constipation and diarrhea Diarrhea HINTON (nonalcoholic steatohepatitis) CKD (chronic kidney disease) Viral gastroenteritis Acute right flank pain Anemia in chronic kidney disease (CKD) COVID-19 virus detected Pneumonia due to COVID-19 virus Below-knee amputation of left lower extremity Osteomyelitis of left foot History of stroke COPD (chronic obstructive pulmonary disease) IBS (irritable bowel syndrome) GERD (gastroesophageal reflux disease) Diastolic dysfunction Cellulitis of left foot Iron (Fe) deficiency anemia Acute kidney injury Right middle lobe pneumonia Hypomagnesemia Osteomyelitis of right foot Peripheral neuropathy Depression Infection of right great toe due to methicillin resistant Staphylococcus aureus (MRSA) Cellulitis of right foot History of MRSA infection Diabetes mellitus Asthma SLE (systemic lupus erythematosus) Surgical History History of colonoscopy Hx of BKA Status post insertion of spinal cord stimulator S/P arteriovenous (AV) fistula repair S/P arteriovenous (AV) fistula creation History of lithotripsy History of below-knee amputation of left lower extremity History of eye surgery History of temporal artery biopsy History of lymph node biopsy History of liver biopsy Partial nontraumatic amputation of right foot History of amputation of hallux History of carpal tunnel surgery History of hernia repair History of cholecystectomy History of hysterectomy History of tubal ligation Status post transmetatarsal amputation of right foot Family History Mother Hypertension Cancer skinGrandmother Hypertension DiabetesBrother Cancer NHL ArthritisBrother Arthritis Social History Smoking Status: Never smoker second hand exposure: Yes alcohol intake: current details: rare substance use type: does not use Assessment and Plan (No Qualifiers) Assessment and Plan (1) AV fistula: Status: Acute -fistulagram revealed outflow obstruction at cephalic arch; axillary vein and more central system patent -prior jump graft appeared to have been to less robust deep vein more lateral due to chest wall
--- NOTE | 2024-09-08 17:54 | DCINST_ITS ---
Discharge Instructions Diet Discharge Diet: No restrictions Activity Lifting Restrictions: do not lift > 20 lbs with left arm for 2 weeks Additional Activity Instructions:: do not submerge incisions for 2 weeks Dressing / Incision Call your doctor if your incision/area has: Sudden Increased Bleeding, Increased Pain/ Swelling, Increased Redness and Foul Smelling Discharge Call your doctor if you observe: Coldness, Increased Pain and Numbness or Tingling Remove Dressing in: 2 days Cleanse incision/area with: Soap & Water Follow Up Care Test Results: Test results from this visit will be discussed in further detail at your follow- up appointment, if applicable. Discharge Plan Admission Attending Provider: Mikey Cavanaugh Primary Care Provider: Johann Jimenez Instructions Print Language: Zambian Discharge Orders/Prescriptions Prescriptions: New oxycodone 5 mg tablet 5 mg PO Q8H PRN (Reason: pain) 2 Days Qty: 6 0RF Continued ondansetron 4 mg tablet,disintegrating 8 mg PO Q8H PRN PRN (Reason: Nausea) albuterol sulfate [ProAir HFA] 90 mcg/actuation HFA aerosol inhaler 2 puff inhalation Q4-6H PRN (Reason: shortness of breath or wheezing) calcitriol 0.5 mcg capsule 0.5 mcg PO QHS Retacrit 2,000 unit/mL solution 40,000 unit subcut MO Rx Instructions: 40,0000 units calcitriol 0.25 mcg capsule 0.25 mcg PO QDAY Nephro-[place] 0.8 mg tablet 1 tab PO QDAY promethazine 12.5 mg tablet 12.5 mg PO Q6H PRN (Reason: nausea and vomiting) Qty: 20 2RF cholestyramine (with sugar) 4 gram powder 4 g PO HS Qty: 378 1RF Rx Instructions: give w/evening meal;avoid other meds 1hr before/4-6hr after dose Trelegy Ellipta 200-62.5-25 mcg blister with device 1 inh inhalation Q24H Qty: 60 5RF insulin lispro [Humalog KwikPen Insulin] 100 unit/mL insulin pen 1 sliding scale dose subcut TID methocarbamol 500 mg tablet 500 mg PO BID PRN (Reason: muscle spasm) Velphoro 500 mg tablet,chewable 1,000 mg PO TID duloxetine 60 MG capsule 60 mg PO QHS Patient Comments: DEPRESSION AND PAIN CONTROL insulin regular hum U-500 conc 20 ML solution 2.2 units SC CONT Patient Comments: insulin pump Rx Instructions: changed site today 02/19/20 trazodone 100 MG tablet 150 mg PO QHS Patient Comments: SLEEP ergocalciferol (vitamin D2) 50,000 UNIT capsule 50,000 unit PO FR Patient Comments: supplement albuterol sulfate 2.5 MG/3 ML solution for nebulization 2.5 mg INHALATION Q4H PRN PRN (Reason: Wheezing) Patient Comments: shortness of breath gabapentin 800 MG tablet 800 mg PO TID Patient Comments: nerve pain rosuvastatin 10 mg tablet 40 mg PO QHS magnesium oxide 400 MG tablet 400 mg PO DAILYCM duloxetine 30 mg capsule,delayed release(DR/EC) 30 mg PO DAILY hydroxyzine pamoate 50 MG capsule 50 mg PO TID PRN (Reason: Anxiety) cinacalcet 30 mg tablet 30 mg PO DAILY omeprazole 40 mg capsule,delayed release(DR/EC) 40 mg PO BID midodrine 10 mg tablet 20 mg PO 4XD PRN (Reason: .) Rx Instructions: two tablets up to qid fenofibrate nanocrystallized 48 mg tablet 48 mg PO DAILY Venofer 100 mg iron/5 mL solution 100 mg IV QWEEK Patient Comments: WITH DIALYSIS Rx Instructions: administer over 15 minutes oxycodone-acetaminophen [Percocet] 5-325 mg tablet 1 tab PO TID metoclopramide HCl 5 mg tablet 5 mg PO BID PRN (Reason: nausea and vomiting) diphenoxylate-atropine [Lomotil] 2.5-0.025 mg tablet 1 tab PO BID PRN (Reason: diarrhea) Qty: 180 3RF hyoscyamine sulfate 0.125 mg tablet 0.125 mg PO BID-QID PRN (Reason: abdominal pain) Qty: 360 3RF fludrocortisone 0.1 mg tablet 0.1 mg PO DAILY Qty: 30 0RF Skyrizi 360 mg/2.4 mL (150 mg/mL) wearable injector 360 mg subcut .COMPLEX Qty: 2.4 6RF Rx Instructions: 360 mg subcutaneously every 8 weeks; Held Eliquis 5 mg tablet 5 mg PO BID Hold Instructions: Resume on 09/10/24. AM dose Rx Instructions: Resume on 06/04/24 am Referrals / Follow Up: Johann Jimenez MD [Primary Care Provider] - Disposition Disposition (needs filled in before D/C Order can be placed): Home, Self Care
--- NOTE | 2024-09-08 18:15 | OP.PCM_ITS ---
Operative Report (Standard) Operative Information Date of Procedure: 09/08/24 Pre-Operative Diagnosis: stenosis/occlusion of cephalic vein fistula outflow Post-Operative Diagnosis: same Surgery/Procedure Performed: revision with jump graft cadaver to axillary vein slip maker: Yes [employer] Auto Body Repairer: Kierra Berg Tasks completed by medical office assistant instructor: Opening, Closing, Opening & closing, Hemostasis: Electrocautery and Retracting Type of Anesthesia: General and Local RN Documented Start/Stop Times: Operation Date: 09/08/24 13:00 Case Time Into Pre-Op 09/08/24 11:32 Out of Pre-Op 09/08/24 14:26 Anesthesia Start 09/08/24 14:31 Into Room 09/08/24 14:31 Procedure Start 09/08/24 15:09 Procedure End 09/08/24 18:13 Anesthesia End 09/08/24 18:18 Out of Room 09/08/24 18:18 Into Recovery 09/08/24 18:22 Out of Recovery 09/08/24 19:20 Into Phase II Recovery 09/08/24 19:22 Procedure Start Time: 15:10 Procedure Stop Time: 18:00 Select all DRAINS/GRAFTS/IMPLANTS that apply: Graft Graft details: cadaver femoral-popliteal artery Estimated Blood Loss: 25 Specimen collected: No Description of surgery: HPI: Patient is a 54-year-old female with end-stage renal disease currently on dialysis using a right IJ tunneled catheter. She had a longstanding left forearm radiocephalic fistula which ultimately failed and she later had a upper arm brachiocephalic fistula created. Unfortunately distal third of this vessel was obliterated and of the outflow from the fistula was via collaterals into the deep system with an otherwise patent deep system centrally. There did appear to be mostly collaterals within the upper arm itself with reconstitution of the brachial radial vein essentially within the axilla and this combined with the patient's body habitus made surgical access to this challenging. She previously had undergone a shunt graft revision from the fistula to what was thought to be adequate outflow vein however this failed fairly quickly. Repeat fistulogram revealed that the segment of vessel that had been accessed was not central enough to provide direct outflow unimpeded by any of the occlusive segments. She is taken now for repeat revision with hopes of access site of more central patent venous outflow. Description of procedure: Upon obtaining informed consent and verification of correct patient procedure site the patient was taken to the operating room where she was placed under general anesthesia. She was then positioned prepped and draped in usual sterile fashion time was performed. Ultrasound was used to evaluate the outflow veins at the cephalad extent of the upper arm and into the axilla. The brachial vein and axillary vein were very deep within the tissue and there was significant chest wall adipose tissue which impeded more central access. We did however visualize veins that we felt we could potentially reach surgically so the skin at this position was anesthetized with 1% lidocaine. Transverse incision was made and Bovie electrocautery used to dissect down through subcutaneous tissue. Self-retaining retractors were put in position and further dissection carried down to the fascia which was incised and the retractors move deeper in the wound. There was significant hindrance our efforts from the chest wall adipose tissue as well as the depth of the vessels however we were ultimately able to dissect free the brachial artery and adjacent brachial vein considered axillary vessels.. There were multiple nerves overlying these vascular structures which made catheterization significantly more challenging. Ultimately we were able to place Vesseloops proximal and distal on the axillary vein and sidebranches were ligated with clips. Next skin overlying the fistula in the mid upper arm was anesthetized 1% lidocaine and a longitudinal incision made. Bovie was then used to dissect down through subcutaneous tissue and self-retaining retractor put in position. Once the fistula was visualized sharp section was dissected free proximal distal and a right angle was placed proximally. A tunneler was then used to create a subcutaneous tunnel from the axillary incision to the mid upper arm incision. The patient was then heparinized allowed to circulate for 3 minutes. A cadaver femoral-popliteal artery was then thawed per high frequency mill operator's instructions. The fistula was then occluded with Vesseloops and divided with a posterior bevel. The distal outflow segment was oversewn with 5-0 Prolene in the removed. Cadaver was then beveled to match the caliber of the fistula and anastomosis performed with a 6-0 Prolene in four-quadrant technique. After obtaining a suture line clamps removed and satisfactory hemostasis observed with no evidence of stricture at the anastomosis. The graft was then marked to maintain orientation and secured to the tunneler then pulled through to the axillary incision. The axillary vein was then occluded with Vesseloops and a longit udinal venotomy created. The graft was then cut to length and beveled to match the venotomy. Anastomosis was then performed with a 6-0 Prolene in running fashion. Prior to playing suture on the vessels were backbled and the graft flushed. After completing the suture line clamps removed and satisfactory hemostasis was observed. There is a palpable thrill in the graft in the outflow vein and satisfactory low resistance signal throughout. Heparin was then reversed with protamine and the incision closed with interrupted nylon for the upper arm incision and 2 layer closure of the axillary incision with 3-0 Vicryl and 4-0 Monocryl. Dry sterile dressings were then applied the patient was awakened from anesthesia. She was then taken the recovery room with plan discharged to home. Surgical Findings: see above Complications Complications: No
--- NOTE | 2024-09-08 20:03 | PCM.POST.ANE ---
Anesthesia: Postop Eval I Current Vital Signs Temperature: 96.9 F Pulse Rate: 106 Blood Pressure: 126/69 Respiratory Rate: 18 Pulse Ox: 96 Oxygen Delivery Method: Nasal Cannula Oxygen Flow Rate (L/min): 2 Assessment Airway patent: Yes Spontaneous unlabored respirations: Yes Mental status: Awake and Calm nausea: Yes Vomiting: No Anesthesia Complication: No Fluid Hydration Crystalloid volume administer (ml): 600 Colloids volume administered (ml): 0 Total IV fluid infused: 600 Progress Note Anesthesia document: Postop Eval 1 completed: No
--- NOTE | 2024-09-08 20:05 | PCM.POSTANE2 ---
Anesthesia Postop Eval I Sum Postop Eval Completion status Anesthesia document: Postop Eval 1 completed: No Anesthesia Postop Eval I Summary Anesthesia Postop Eval I Summary: Anesthesia Postop Eval I: Assessment Summary Airway patent Yes 09/08/24 20:05 Spontaneous unlabored Yes 09/08/24 20:05 respirations Mental status Awake,Calm 09/08/24 20:05 nausea Yes 09/08/24 20:05 Vomiting No 09/08/24 20:05 Anesthesia Postop Eval I: Fluid Summary Crystalloid volume administer 600 09/08/24 20:05 (ml) Colloids volume administered ( 0 09/08/24 20:05 ml) Blood Product volume administered (ml) Total IV fluid infused 600 09/08/24 20:05 Anesthesia Postop Eval I: Summary Notes Anesthesia Complication No 09/08/24 20:05 Anesthesia Complication Comment: Post-operative progress note Anesthesia: Postop Eval II Evaluation Mental status: Awake and Calm Pain Level: 1 nausea: No Vomiting: No Complications Anesthesia Complication: No
== END 2024-09-08 20:05 | disposition home or self-care (01) ==
LOC: SDC 11:19 → AC 11:20
PROVIDERS: PCP Family Medicine; Referring Provider Surgery Trauma Surgery; Visit Provider Surgery Trauma Surgery
PROC: (CPT 36832; principal; 2024-09-08 12:45)
DX: T82.858A Stenosis of other vascular prosthetic devices, implants and grafts, initial encounter (principal); I12.0 Hypertensive chronic kidney disease with stage 5 chronic kidney disease or end stage renal disease; N18.6 End stage renal disease; Z89.512 Acquired absence of left leg below knee; Z89.431 Acquired absence of right foot; J44.9 Chronic obstructive pulmonary disease, unspecified; E11.42 Type 2 diabetes mellitus with diabetic polyneuropathy; E11.22 Type 2 diabetes mellitus with diabetic chronic kidney disease; Z79.4 Long term (current) use of insulin; X58.XXXA Exposure to other specified factors, initial encounter; E78.00 Pure hypercholesterolemia, unspecified; Z99.2 Dependence on renal dialysis; Z96.41 Presence of insulin pump (external) (internal); Z79.52 Long term (current) use of systemic steroids; Z79.899 Other long term (current) drug therapy; Z86.16 Personal history of COVID-19
CPT/HCPCS: 36832; 01844; 36415; 80048; 82962; 85027; 86850; 86900; 86901; A4648; A4216; J2405

== ENCOUNTER → 2024-09-12 | Outpatient (CLI) | payer MEDICARE, SELFPAY ==
--- NOTE | 2024-09-12 10:14 | STRESSREP ---
Stress Test Report Pharmacologic myocardial perfusion stress test. 54-year-old lady with a history of shortness of breath Resting EKG demonstrates sinus rhythm with a rate of 96 bpm. Resting blood pressure is 138/70 mmHg. 0.4 mg of regadenoson was infused per usual protocol followed by rapid intravenous saline flush injection. Continuous EKG monitoring was performed. The maximum heart rate was 133 bpm which was 79% of max impacted heart rate the maximum workload was 1 metabolic equivalent. At rest there were no ST or T wave changes noted to suggest ischemia and at peak infusion nonspecific ST changes were noted which did not meet the criteria for ischemia. No clinical angina is noted. The final blood pressure was 120/60 mmHg. Myocardial perfusion protocol. 14.8 mCi of technetium 99m sestamibi was injected at rest. 0.4 mg of regadenoson was infused per usual protocol. At peak infusion 44.4 mCi of technetium 99m sestamibi was injected stress images were obtained stress and rest images were reconstructed and compared in the short axis vertical long and horizontal long axis. Gated images were also obtained. Perfusion SPECT analysis: Review of the stress images demonstrate normal uptake of tracer noted in all areas of the myocardium. The resting images similar demonstrated normal uptake of tracer noted in all areas of the myocardium. No areas of reversibility are noted to suggest ischemia and no previous infarct is noted. Gated SPECT analysis: The gated ejection fraction is 73%. Conclusion: Normal pharmacologic myocardial perfusion stress test. Preserved ejection fraction.
== END | disposition home or self-care (01) ==
LOC: CVS 06:33
PROVIDERS: PCP Family Medicine; Referring Provider Physician Assistant Medical; Visit Provider Physician Assistant Medical
DX: R06.02 Shortness of breath (principal)
CPT/HCPCS: 78452; 93017; A9500; A4216; J2785

== ENCOUNTER → 2024-09-26 | Outpatient (CLI) | payer MEDICARE, SELFPAY ==
--- NOTE | 2024-09-26 08:57 | ADUUE_ITS ---
Reason For Study Reason For Study: Evaluate for steal syndrome LEFT Left Brachial velocity = 296.7 cm/sec. Left Radial velocity = 79.6 cm/sec. Left Ulnar velocity = 28.9 cm/sec. Fistula noted in the upper arm. Digit waveforms recorded with and without fistula compression, attached PVR worksheet included. VL/US Art Duplex Unilat UP Extrem Interpretation Summary Left upper extremity arteries patent with normal waveforms/velocities. Digit waveforms mildly diminished at baseline in digits 2-5, return to normal a mplitude with fistula compression; consistent with mild steal. Ordering Physician: Libia Holden Referring Physician: Johann Jimenez Performed By: Cheryl Sutherland RVT
--- NOTE | 2024-09-26 08:57 | ADUUE_ITS ---
Reason For Study Reason For Study: Evaluate for steal syndrome LEFT Left Brachial velocity = 296.7 cm/sec. Left Radial velocity = 79.6 cm/sec. Left Ulnar velocity = 28.9 cm/sec. Fistula noted in the upper arm. Digit waveforms recorded with and without fistula compression, attached PVR worksheet included. VL/US Art Duplex Unilat UP Extrem Interpretation Summary Left upper extremity arteries patent with normal waveforms/velocities. Digit waveforms mildly diminished at baseline in digits 2-5, return to normal a mplitude with fistula compression; consistent with mild steal. Ordering Physician: Libia Holden Referring Physician: Johann Jimenez Performed By: Cheryl Sutherland RVT
== END | disposition home or self-care (01) ==
LOC: CVS 08:57
PROVIDERS: PCP Family Medicine; Referring Provider Physician Assistant; Visit Provider Physician Assistant
DX: I77.0 Arteriovenous fistula, acquired (principal); T82.898A Other specified complication of vascular prosthetic devices, implants and grafts, initial encounter
CPT/HCPCS: 93931

== ENCOUNTER 2024-09-28 12:23 | Day surgery (SDC) | payer MEDICARE, SELFPAY ==
--- NOTE | 2024-09-26 15:19 | PAT.ANESEVAL ---
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 When Was Last Pacemaker Check QUESTION #4 FULL TEXT: You/Your Family Experience fever (hyperthermia) with Anesthesia Last Oral Intake Last Oral intake: Last Oral Intake NPO since Meds taken in AM with sips of water? Meds patient instructed to take am of surgery PONV PONV - armature varnisher: PONV - armature varnisher Female Yes 09/26/24 12:22 HX of Motion Sickness Yes 09/26/24 12:22 HX of N/V After Surgery No 09/26/24 12:22 Non-Smoker Yes 09/26/24 12:22 Duration of Surgery greater No 09/26/24 12:22 than 60 minutes Number of Risk Factors 3 09/26/24 12:22 PONV Score Moderate Risk 09/26/24 12:22 Height & Weight Height & Weight: Anesthesia: Height & Weight Height 5 ft 6 in 09/08/24 12:09 Respiratory Assessment Respiratory Assessment - armature varnisher: Respiratory Tract Infection Hx - armature varnisher Hx Respiratory Tract Infection No 09/26/24 12:22 STOP Sleep Apnea STOP Sleep Apnea - armature varnisher: STOP Sleep Apnea - armature varnisher Hx Hypertension No 09/26/24 12:22 Hx Sleep Apnea Yes 09/26/24 12:22 CPAP Yes: WITH 2L O2 09/26/24 12:22 BIPAP No 09/26/24 12:22 Do you snore loudly (louder than talking or can be heard Do you often feel tired/ fatigued/ sleepy during daytime? Has anyone observed you stop breathing during sleep? STOP Results Positive 09/26/24 12:22 QUESTION #5 FULL TEXT : Do you snore loudly (louder than talking or can be heard through closed doors)? 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 Specify any problems Hx of Preganancy in last 3 No 09/26/24 12:22 Months Nurse Filling Out Transfusion VCHRISTIN 09/26/24 12:22 & Questions: Date: 09/26/24 09/26/24 12:22 Time: 12:24 09/26/24 12:22 Patient unable to answer at this time (ie. confused, unrespo /Reproduction History /Reproductive History - armature varnisher: /Reproductive Hx- armature varnisher Hx Now No 09/26/24 12:22 Gestational Age (in weeks): EDC: Hx Hx Para Hx Section SAB No 09/26/24 12:22 [facility] Medical History (Updated 09/26/24 @ 12:22 by Kaylie Diaz) Contusion of left hip Contusion of right forearm Arteriovenous fistula History of Holter monitoring MRSA infection History of steroid therapy Thyroid disease History of renal dialysis History of renal disease Low iron Syncope History of Crohn's disease GERD (gastroesophageal reflux disease) Chronic cough History of edema History of atrial fibrillation Secondary hyperparathyroidism DM type 2 (diabetes mellitus, type 2) Depression Asthma Migraines ESRD (end stage renal disease) on dialysis Lung nodule seen on imaging study Blindness Cataract (lens) fragments in eye following cataract surgery, bilateral Atrial fibrillation, controlled Essential hypertension Uses prosthesis Wears glasses Anxiety Insulin dependent diabetes mellitus Uses wheelchair Arthritis DVT (deep venous thrombosis) High cholesterol TIA (transient ischemic attack) Seizures Dietary restriction History of hiatal hernia Non-smoker CPAP (continuous positive airway pressure) dependence Sleep apnea Shortness of breath on exertion History of echocardiogram History of stress test Cardiology follow-up encounter Positive QuantiFERON-TB Gold test Crohn's disease Hx of pancreatitis Hepatosplenomegaly Enteritis Nausea and vomiting Alternating constipation and diarrhea Diarrhea HINTON (nonalcoholic steatohepatitis) CKD (chronic kidney disease) Viral gastroenteritis Acute right flank pain Anemia in chronic kidney disease (CKD) COVID-19 virus detected Pneumonia due to COVID-19 virus Below-knee amputation of left lower extremity Osteomyelitis of left foot History of stroke COPD (chronic obstructive pulmonary disease) IBS (irritable bowel syndrome) GERD (gastroesophageal reflux disease) Diastolic dysfunction Cellulitis of left foot Iron (Fe) deficiency anemia Acute kidney injury Right middle lobe pneumonia Hypomagnesemia Osteomyelitis of right foot Peripheral neuropathy Depression Infection of right great toe due to methicillin resistant Staphylococcus aureus (MRSA) Cellulitis of right foot History of MRSA infection Diabetes mellitus Asthma Pulmonary hypertension SLE (systemic lupus erythematosus) Home Medications ?Medication ?Instructions ?Recorded ?Last Taken ?Type duloxetine 60 mg capsule,delayed 60 mg PO QHS depression 11/26/12 06/22/24 History release insulin regular hum U-500 conc 500 2.2 units subcut CONT insulin pump 10/02/15 04/26/24 History unit/mL subcutaneous soln trazodone 100 mg tablet 150 mg PO QHS sleep 12/27/15 06/22/24 History ergocalciferol (vitamin D2) 1,250 50,000 unit PO FR supplement 01/24/16 06/17/24 History mcg (50,000 unit) capsule albuterol sulfate 2.5 mg/3 mL 2.5 mg inhalation Q4H PRN PRN 06/09/16 04/20/24 History (0.083 %) solution for nebulization Wheezing gabapentin 800 mg tablet 800 mg PO TID neuropathy 05/19/17 06/22/24 History rosuvastatin 10 mg tablet 40 mg PO QHS cholesterol 06/03/17 06/22/24 History magnesium oxide 400 mg (241.3 mg 400 mg PO DAILYCM supplement 07/30/18 06/22/24 History magnesium) tablet hydroxyzine pamoate 50 mg capsule 50 mg PO TID PRN Anxiety 02/20/20 04/25/24 History duloxetine 30 mg capsule,delayed 30 mg PO DAILY depression 05/09/20 06/22/24 History release ondansetron 4 mg disintegrating 8 mg PO Q8H PRN PRN Nausea 09/03/21 01/11/24 History tablet diphenoxylate-atropine 2.5 1 tab PO BID PRN diarrhea #180 tabs 08/04/22 04/25/24 Rx mg-0.025 mg tablet (Lomotil) hyoscyamine sulfate 0.125 mg tablet 0.125 mg PO BID-QID PRN abdominal 08/04/22 Unknown Rx pain #360 tabs albuterol sulfate 90 mcg/actuation 2 puff inhalation Q4-6H PRN 02/26/23 06/23/24 History aerosol inhaler (ProAir HFA) shortness of breath or wheezing fenofibrate nanocrystallized 48 mg 48 mg PO DAILY . 08/11/23 06/22/24 History tablet cinacalcet 30 mg tablet 60 mg PO DAILY . 10/23/23 06/22/24 History midodrine 10 mg tablet 20 mg PO 4XD PRN . 10/23/23 04/25/24 History omeprazole 40 mg capsule,delayed 40 mg PO BID GERD 10/23/23 09/08/24 09:30 History release fludrocortisone 0.1 mg tablet 0.1 mg PO DAILY #30 TABLETS 12/18/23 06/22/24 Rx calcitriol 0.25 mcg capsule 0.25 mcg PO QDAY 02/03/24 06/22/24 History calcitriol 0.5 mcg capsule 0.5 mcg PO QHS . 02/03/24 06/22/24 History vitamin B complex-vitamin C-folic 1 tab PO QDAY 02/03/24 04/25/24 History acid 0.8 mg tablet (Nephro-[place]) risankizumab-rzaa 360 mg/2.4 mL 360 mg (2.4 mL) subcut .COMPLEX . 04/11/24 06/11/24 Rx (150 mg/mL) subcut wearable #2.4 mL injector (Skyrizi) apixaban 5 mg tablet (Eliquis) 5 mg PO BID 04/20/24 09/26/24 History Held on 09/08/24. Instructions: Resume on 09/10/24. AM dose iron sucrose 100 mg iron/5 mL 100 mg IV QWEEK 04/26/24 Unknown History intravenous solution (Venofer) cholestyramine (with sugar) 4 gram 4 g PO HS #378 grams 05/06/24 06/22/24 Rx oral powder epoetin regan-epbx 2,000 unit/mL 40,000 unit subcut MO . 05/06/24 06/20/24 History injection solution (Retacrit) promethazine 12.5 mg tablet 12.5 mg PO Q6H PRN nausea and 05/06/24 Unknown Rx vomiting #20 tabs fluticasone fur. 200 mcg-umeclid 1 inh inhalation Q24H #60 ea 06/10/24 09/08/24 09:30 Rx 62.5 mcg-vilant 25 mcg inhalat.powder (Trelegy Ellipta) insulin lispro 100 unit/mL 1 sliding scale dose subcut TID 08/12/24 Unknown History subcutaneous pen (Humalog KwikPen (U-100) Insulin) methocarbamol 500 mg tablet 500 mg PO BID PRN muscle spasm 08/12/24 Unknown History sucroferric oxyhydroxide 500 mg 1,000 mg PO TID 08/12/24 Unknown History chewable tablet (Velphoro) metoclopramide HCl 5 mg tablet 5 mg PO BID PRN nausea and vomiting 08/25/24 Unknown History oxycodone-acetaminophen 5 mg-325 1 tab PO TID pain 08/25/24 Unknown History mg tablet (Percocet) Allergy/AdvReac Type Severity Reaction Status Date / Time atorvastatin (From Lipitor) AdvReac Severe Vomiting Verified 09/26/24 12:09 Family History Mother Hypertension Cancer skin Grandmother Hypertension Diabetes Brother Cancer NHL Arthritis Brother Arthritis Surgical History (Updated 09/26/24 @ 12:22 by Kaylie Diaz) Hx of surgical procedure History of colonoscopy Hx of BKA Status post insertion of spinal cord stimulator S/P arteriovenous (AV) fistula repair S/P arteriovenous (AV) fistula creation History of lithotripsy History of below-knee amputation of left lower extremity History of eye surgery History of temporal artery biopsy History of lymph node biopsy History of liver biopsy Partial nontraumatic amputation of right foot History of amputation of hallux History of carpal tunnel surgery History of hernia repair History of cholecystectomy History of hysterectomy History of tubal ligation Status post transmetatarsal amputation of right foot Social History Smoking Status: Never smoker second hand exposure: Yes alcohol intake: current details: rare substance use type: does not use Audit: Pertinent Findings Pertinent Findings EKG Perinent findings: March 04, 2024. Sinus tachycardia. Poor R wave progression?nonspecific?consider old anterior infarct. Stress test pertinent findings: 09/12/2024. EF of 73%. No areas of reversibility to suggest ischemia. No previous infarct. Echo (EF%) pertinent findings: April 22, 2024. EF of 60%. No aortic stenosis. Consult pertinent findings: 05/06/2024. Yeni WELCH. 1. Dizziness?improved with midodrine. 2. Shortness of breath on exertion-this is baseline. Continue with home oxygen. 3. Sleep apnea-patient is using CPAP with oxygen at night. 4. Paroxysmal atrial fibrillation-patient is to continue her Eliquis. 5. End-stage renal disease-patient does dialysis 5 days a week at home. Additional pertinent findings: Holter monitor. 03/28/2024. No significant ectopy to explain symptoms. Benign Holter. Normal sinus rhythm with rare PVCs and PACs. Noted symptoms and diary included chest/throat tightness, funny heartbeats, and choking feeling, dizzy/lightheadedness, shortness of breath and numbness which correlated with normal sinus rhythm and/or sinus tachycardia. Current Visit Impressions Current Visit Impressions: Additional pertinent findings: Hemoglobin is 9.7, which is below normal but acceptable for surgery. Creatinine is 6.84 which is outside normal parameters but is within the range that she has been in the past year. Recommendation Anesthesia Recommendation Anesthesia recommendation: OPTIMIZED for anesthesia
[2024-09-28] VITALS (7 sets, daily range): BP systolic 102–126; BP diastolic 53–76; PULSE 86–94; RESP 16; TEMP 36.1–36.4; O2SAT 98–100; BMI 33.9
[2024-09-28] MEDS: 0.9% Normal Saline (500mL Bag) 500 ML 15 ML IV (13:14)
--- NOTE | 2024-09-28 13:29 | PCM.PRE.AN2 ---
ASA Classification* ASA Classification ASA Classification: 3 Assessment & Plan Anesthesia* Anesthesia Assessment Anesthesia Assessment: Discussed sedation and/or anesthesia options, risks, benefits, and alternatives with patient/parents/legal guardian/POA. Questions invited. The patient/parents/legal guardian/POA seems to understand and agrees to proceed with anesthesia plan. Reviewed the physical assessment, medical history, allergy history and patient home medications list prior to surgery/procedure/anesthetic and documented any changes. Performed airway and anesthesia risk assessments. Anesthesia Type Anesthesia Type: General History Source History Obtained from:: Patient and Chart Anesthesia Focused Assessment* Temperature: 97.5 F Pulse Rate: 88 Blood Pressure: 102/53 Respiratory Rate: 16 Pulse Ox: 100 Oxygen Delivery Method: Nasal Cannula Oxygen Flow Rate (L/min): 2 Airway Assessment Mouth opens: 2 cm Mallampati Score: II Teeth Condition: Chipped/Broken Neck Range of motion (ROM): Limited ROM Labs Anesthesia Preop lab: CBC WBC 5.8 K/mm3 (4.4-11.0) 09/02/24 10:09/02/24 RBC 2.90 M/mm3 (4.2-5.4) L 09/02/24 10:09/02/24 Hgb 9.7 g/dL (12.0-15.0) L 09/02/24 10:09/02/24 Hct 28.9 % (37-47) L 09/02/24 10:33 09/02/24 Plt Count 141 K/mm3 (150-450) L 09/02/24 10:33 09/02/24 CHEMISTRY Potassium 5.0 mmol/L (3.3-5.1) 09/02/24 10:33 09/02/24 Sodium 138 mmol/L (133-145) 09/02/24 10:09/02/24 Magnesium 2.4 mg/dL (1.6-2.6) 10/26/23 06:15 10/26/23 Phosphorus 8.0 mg/dL (2.5-4.9) H 10/26/23 06:15 10/26/23 BUN 42 mg/dL (4-19) H 09/02/24 10:09/02/24 Creatinine 6.84 mg/dL (0.70-1.20) H 09/02/24 10:33 09/02/24 Glucose 125 mg/dL (70-99) H 09/02/24 10:33 09/02/24 POC Glucose 163 mg/dL (74-106) H 09/08/24 18:24 09/08/24 TSH 1.58 uIU/mL (0.358-3.74) 02/04/23 15:34 02/04/23 COAG PT 14.9 SECONDS (11.7-14.9) 03/18/24 12:26 03/18/24 Pre-Assessment Diagnosis/Proposed Procedure Planned Operative Procedure(s): AV FISTULA TRANSPOSITION Anesthesia History Anesthesia History - front office coordinator: Anesthesia History - front office coordinator Hx Hospitalization No 09/26/24 12:22 Any Problems With Anesthesia No 09/26/24 12:22 Cholinesterase deficiency No 09/26/24 12:22 You/Your Family Experience No 09/26/24 12:22 fever (hyperthermia) with Relationship Recent Exposure to Contagious No 09/28/24 12:47 Disease Does patient have nerve No 09/26/24 12:22 stimulator Patient instructed to have device shut off --Does patient have Pacemaker No 09/28/24 12:47 or ICD? When Was Last Pacemaker Check QUESTION #4 FULL TEXT: You/Your Family Experience fever (hyperthermia) with Anesthesia Last Oral Intake Last Oral intake: Last Oral Intake NPO since 09:30 09/28/24 12:47 Meds taken in AM with sips of Yes 09/28/24 12:47 water? Meds patient instructed to take am of surgery PONV PONV - front office coordinator: PONV - front office coordinator Female Yes 09/26/24 12:22 HX of Motion Sickness Yes 09/26/24 12:22 HX of N/V After Surgery No 09/26/24 12:22 Non-Smoker Yes 09/26/24 12:22 Duration of Surgery greater No 09/26/24 12:22 than 60 minutes Number of Risk Factors 3 09/26/24 12:22 PONV Score Moderate Risk 09/26/24 12:22 Height & Weight Height & Weight: Anesthesia: Height & Weight Height 5 ft 6 in 09/28/24 12:47 Weight: 95.254 kg 09/28/24 12:47 Body Mass Index (BMI) 33.9 09/28/24 12:47 Respiratory Assessment Respiratory Assessment - front office coordinator: Respiratory Tract Infection Hx - front office coordinator Hx Respiratory Tract Infection No 09/26/24 12:22 STOP Sleep Apnea STOP Sleep Apnea - front office coordinator: STOP Sleep Apnea - front office coordinator Hx Hypertension No 09/26/24 12:22 Hx Sleep Apnea Yes 09/26/24 12:22 CPAP Yes: WITH 2L O2 09/26/24 12:22 BIPAP No 09/26/24 12:22 Do you snore loudly (louder than talking or can be heard Do you often feel tired/ fatigued/ sleepy during daytime? Has anyone observed you stop breathing during sleep? STOP Results Positive 09/26/24 12:22 QUESTION #5 FULL TEXT : Do you snore loudly (louder than talking or can be heard through closed doors)? 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 Specify any problems Hx of Preganancy in last 3 No 09/26/24 12:22 Months Nurse Filling Out Transfusion VCHRISTIN 09/26/24 12:22 & Questions: Date: 09/26/24 09/26/24 12:22 Time: 12:24 09/26/24 12:22 Patient unable to answer at this time (ie. confused, unrespo /Reproduction History /Reproductive History - front office coordinator: /Reproductive Hx- front office coordinator Hx Now No 09/26/24 12:22 Gestational Age (in weeks): EDC: Hx Hx Para Hx Section SAB No 09/26/24 12:22 Active Medications Active Medications: Current Medications Generic Name Dose Route Start Last Admin Trade Name Freq PRN Reason Stop Dose Admin Cefazolin Sodium 2 gm/ Sodium 110 mls @ 200 mls/hr 09/28/24 14:00 Chloride IV 09/28/24 14:32 INTRAOP ONE Sodium Chloride 500 mls @ 0 mls/hr 09/28/24 12:45 09/28/24 13:14 IV 15 mls/hr .Q0M JOE Administration KVO PFSH Medical History (Updated 09/26/24 @ 12:22 by Kaylie Diaz) Contusion of left hip Contusion of right forearm Arteriovenous fistula History of Holter monitoring MRSA infection History of steroid therapy Thyroid disease History of renal dialysis History of renal disease Low iron Syncope History of Crohn's disease GERD (gastroesophageal reflux disease) Chronic cough History of edema History of atrial fibrillation Secondary hyperparathyroidism DM type 2 (diabetes mellitus, type 2) Depression Asthma Migraines ESRD (end stage renal disease) on dialysis Lung nodule seen on imaging study Blindness Cataract (lens) fragments in eye following cataract surgery, bilateral Atrial fibrillation, controlled Essential hypertension Uses prosthesis Wears glasses Anxiety Insulin dependent diabetes mellitus Uses wheelchair Arthritis DVT (deep venous thrombosis) High cholesterol TIA (transient ischemic attack) Seizures Dietary restriction History of hiatal hernia Non-smoker CPAP (continuous positive airway pressure) dependence Sleep apnea Shortness of breath on exertion History of echocardiogram History of stress test Cardiology follow-up encounter Positive QuantiFERON-TB Gold test Crohn's disease Hx of pancreatitis Hepatosplenomegaly Enteritis Nausea and vomiting Alternating constipation and diarrhea Diarrhea HINTON (nonalcoholic steatohepatitis) CKD (chronic kidney disease) Viral gastroenteritis Acute right flank pain Anemia in chronic kidney disease (CKD) COVID-19 virus detected Pneumonia due to COVID-19 virus Below-knee amputation of left lower extremity Osteomyelitis of left foot History of stroke COPD (chronic obstructive pulmonary disease) IBS (irritable bowel syndrome) GERD (gastroesophageal reflux disease) Diastolic dysfunction Cellulitis of left foot Iron (Fe) deficiency anemia Acute kidney injury Right middle lobe pneumonia Hypomagnesemia Osteomyelitis of right foot Peripheral neuropathy Depression Infection of right great toe due to methicillin resistant Staphylococcus aureus (MRSA) Cellulitis of right foot History of MRSA infection Diabetes mellitus Asthma Pulmonary hypertension SLE (systemic lupus erythematosus) Home Medications ?Medication ?Instructions ?Recorded ?Last Taken ?Type duloxetine 60 mg capsule,delayed 60 mg PO QHS depression 11/26/12 06/22/24 History release insulin regular hum U-500 conc 500 2.2 units subcut CONT insulin pump 10/02/15 04/26/24 History unit/mL subcutaneous soln trazodone 100 mg tablet 150 mg PO QHS sleep 12/27/15 06/22/24 History ergocalciferol (vitamin D2) 1,250 50,000 unit PO FR supplement 01/24/16 06/17/24 History mcg (50,000 unit) capsule albuterol sulfate 2.5 mg/3 mL 2.5 mg inhalation Q4H PRN PRN 06/09/16 04/20/24 History (0.083 %) solution for nebulization Wheezing gabapentin 800 mg tablet 800 mg PO TID neuropathy 05/19/17 06/22/24 History rosuvastatin 10 mg tablet 40 mg PO QHS cholesterol 06/03/17 06/22/24 History magnesium oxide 400 mg (241.3 mg 400 mg PO DAILYCM supplement 07/30/18 06/22/24 History magnesium) tablet hydroxyzine pamoate 50 mg capsule 50 mg PO TID PRN Anxiety 02/20/20 04/25/24 History duloxetine 30 mg capsule,delayed 30 mg PO DAILY depression 05/09/20 06/22/24 History release ondansetron 4 mg disintegrating 8 mg PO Q8H PRN PRN Nausea 09/03/21 01/11/24 History tablet diphenoxylate-atropine 2.5 1 tab PO BID PRN diarrhea #180 tabs 08/04/22 04/25/24 Rx mg-0.025 mg tablet (Lomotil) hyoscyamine sulfate 0.125 mg tablet 0.125 mg PO BID-QID PRN abdominal 08/04/22 Unknown Rx pain #360 tabs albuterol sulfate 90 mcg/actuation 2 puff inhalation Q4-6H PRN 02/26/23 06/23/24 History aerosol inhaler (ProAir HFA) shortness of breath or wheezing fenofibrate nanocrystallized 48 mg 48 mg PO DAILY . 08/11/23 06/22/24 History tablet cinacalcet 30 mg tablet 60 mg PO DAILY . 10/23/23 06/22/24 History midodrine 10 mg tablet 20 mg PO 4XD PRN . 10/23/23 04/25/24 History omeprazole 40 mg capsule,delayed 40 mg PO BID GERD 10/23/23 09/28/24 History release fludrocortisone 0.1 mg tablet 0.1 mg PO DAILY #30 TABLETS 12/18/23 06/22/24 Rx calcitriol 0.25 mcg capsule 0.25 mcg PO QDAY 02/03/24 06/22/24 History calcitriol 0.5 mcg capsule 0.5 mcg PO QHS . 02/03/24 06/22/24 History vitamin B complex-vitamin C-folic 1 tab PO QDAY 02/03/24 04/25/24 History acid 0.8 mg tablet (Nephro-[place]) risankizumab-rzaa 360 mg/2.4 mL 360 mg (2.4 mL) subcut .COMPLEX . 04/11/24 06/11/24 Rx (150 mg/mL) subcut wearable #2.4 mL injector (Skyrizi) apixaban 5 mg tablet (Eliquis) 5 mg PO BID 04/20/24 09/26/24 History Held on 09/08/24. Instructions: Resume on 09/10/24. AM dose iron sucrose 100 mg iron/5 mL 100 mg IV QWEEK 04/26/24 Unknown History intravenous solution (Venofer) cholestyramine (with sugar) 4 gram 4 g PO HS #378 grams 05/06/24 06/22/24 Rx oral powder epoetin regan-epbx 2,000 unit/mL 40,000 unit subcut MO . 05/06/24 06/20/24 History injection solution (Retacrit) promethazine 12.5 mg tablet 12.5 mg PO Q6H PRN nausea and 05/06/24 Unknown Rx vomiting #20 tabs fluticasone fur. 200 mcg-umeclid 1 inh inhalation Q24H #60 ea 06/10/24 09/28/24 Rx 62.5 mcg-vilant 25 mcg inhalat.powder (Trelegy Ellipta) insulin lispro 100 unit/mL 1 sliding scale dose subcut TID 08/12/24 Unknown History subcutaneous pen (Humalog KwikPen (U-100) Insulin) methocarbamol 500 mg tablet 500 mg PO BID PRN muscle spasm 08/12/24 Unknown History sucroferric oxyhydroxide 500 mg 1,000 mg PO TID 08/12/24 Unknown History chewable tablet (Velphoro) metoclopramide HCl 5 mg tablet 5 mg PO BID PRN nausea and vomiting 08/25/24 Unknown History oxycodone-acetaminophen 5 mg-325 1 tab PO TID pain 08/25/24 Unknown History mg tablet (Percocet) Allergy/AdvReac Type Severity Reaction Status Date / Time atorvastatin (From Lipitor) AdvReac Severe Vomiting Verified 09/28/24 12:45 Family History Mother Hypertension Cancer skin Grandmother Hypertension Diabetes Brother Cancer NHL Arthritis Brother Arthritis Surgical History (Updated 09/26/24 @ 12:22 by Kaylie Diaz) Hx of surgical procedure History of colonoscopy Hx of BKA Status post insertion of spinal cord stimulator S/P arteriovenous (AV) fistula repair S/P arteriovenous (AV) fistula creation History of lithotripsy History of below-knee amputation of left lower extremity History of eye surgery History of temporal artery biopsy History of lymph node biopsy History of liver biopsy Partial nontraumatic amputation of right foot History of amputation of hallux History of carpal tunnel surgery History of hernia repair History of cholecystectomy History of hysterectomy History of tubal ligation Status post transmetatarsal amputation of right foot Social History Smoking Status: Never smoker second hand exposure: Yes alcohol intake: current details: rare substance use type: does not use Review of Systems (Anesthesia) ROS Narrative System reviewed and no additional complaints, except as documented.
--- NOTE | 2024-09-28 14:03 | PCM.HP.BLA ---
History and Physical Allergies atorvastatin (From Lipitor) Adverse Reaction (Severe, Verified 09/22/24 08:31) Vomiting Medications ?Medication ?Instructions ?Recorded ?Confirmed ?Type duloxetine 60 mg capsule,delayed 60 mg PO QHS depression 11/26/12 08/25/24 History release insulin regular hum U-500 conc 500 2.2 units subcut CONT insulin pump 10/02/15 08/25/24 History unit/mL subcutaneous soln trazodone 100 mg tablet 150 mg PO QHS sleep 12/27/15 08/25/24 History ergocalciferol (vitamin D2) 1,250 50,000 unit PO FR supplement 01/24/16 08/25/24 History mcg (50,000 unit) capsule albuterol sulfate 2.5 mg/3 mL 2.5 mg inhalation Q4H PRN PRN 06/09/16 08/25/24 History (0.083 %) solution for nebulization Wheezing gabapentin 800 mg tablet 800 mg PO TID neuropathy 05/19/17 08/25/24 History rosuvastatin 10 mg tablet 40 mg PO QHS cholesterol 06/03/17 08/25/24 History magnesium oxide 400 mg (241.3 mg 400 mg PO DAILYCM supplement 07/30/18 08/25/24 History magnesium) tablet hydroxyzine pamoate 50 mg capsule 50 mg PO TID PRN Anxiety 02/20/20 08/25/24 History duloxetine 30 mg capsule,delayed 30 mg PO DAILY depression 05/09/20 08/25/24 History release ondansetron 4 mg disintegrating 8 mg PO Q8H PRN PRN Nausea 09/03/21 08/25/24 History tablet diphenoxylate-atropine 2.5 1 tab PO BID PRN diarrhea #180 tabs 08/04/22 08/25/24 Rx mg-0.025 mg tablet (Lomotil) hyoscyamine sulfate 0.125 mg tablet 0.125 mg PO BID-QID PRN abdominal 08/04/22 08/25/24 Rx pain #360 tabs albuterol sulfate 90 mcg/actuation 2 puff inhalation Q4-6H PRN 02/26/23 08/25/24 History aerosol inhaler (ProAir HFA) shortness of breath or wheezing fenofibrate nanocrystallized 48 mg 48 mg PO DAILY . 08/11/23 08/25/24 History tablet cinacalcet 30 mg tablet 30 mg PO DAILY . 10/23/23 08/25/24 History midodrine 10 mg tablet 20 mg PO 4XD PRN . 10/23/23 08/25/24 History omeprazole 40 mg capsule,delayed 40 mg PO BID GERD 10/23/23 09/08/24 History release fludrocortisone 0.1 mg tablet 0.1 mg PO DAILY #30 TABLETS 12/18/23 08/25/24 Rx calcitriol 0.25 mcg capsule 0.25 mcg PO QDAY 02/03/24 08/25/24 History calcitriol 0.5 mcg capsule 0.5 mcg PO QHS . 02/03/24 08/25/24 History vitamin B complex-vitamin C-folic 1 tab PO QDAY 02/03/24 08/25/24 History acid 0.8 mg tablet (Nephro-[place]) risankizumab-rzaa 360 mg/2.4 mL 360 mg (2.4 mL) subcut .COMPLEX . 04/11/24 08/25/24 Rx (150 mg/mL) subcut wearable #2.4 mL injector (Skyrizi) apixaban 5 mg tablet (Eliquis) 5 mg PO BID 04/20/24 09/08/24 History Held on 09/08/24. Instructions: Resume on 09/10/24. AM dose iron sucrose 100 mg iron/5 mL 100 mg IV QWEEK 04/26/24 08/25/24 History intravenous solution (Venofer) cholestyramine (with sugar) 4 gram 4 g PO HS #378 grams 05/06/24 08/25/24 Rx oral powder epoetin regan-epbx 2,000 unit/mL 40,000 unit subcut MO . 05/06/24 08/25/24 History injection solution (Retacrit) promethazine 12.5 mg tablet 12.5 mg PO Q6H PRN nausea and 05/06/24 08/25/24 Rx vomiting #20 tabs fluticasone fur. 200 mcg-umeclid 1 inh inhalation Q24H #60 ea 06/10/24 09/08/24 Rx 62.5 mcg-vilant 25 mcg inhalat.powder (Trelegy Ellipta) insulin lispro 100 unit/mL 1 sliding scale dose subcut TID 08/12/24 08/25/24 History subcutaneous pen (Humalog KwikPen (U-100) Insulin) methocarbamol 500 mg tablet 500 mg PO BID PRN muscle spasm 08/12/24 08/25/24 History sucroferric oxyhydroxide 500 mg 1,000 mg PO TID 08/12/24 08/25/24 History chewable tablet (Velphoro) metoclopramide HCl 5 mg tablet 5 mg PO BID PRN nausea and vomiting 08/25/24 08/25/24 History oxycodone-acetaminophen 5 mg-325 1 tab PO TID pain 08/25/24 08/25/24 History mg tablet (Percocet) Is last menstrual period known: No Post menopausal: Yes Patient : No Have you fallen in the past year?: Yes Subjective Details: Wendy Lux is a 54 y/o female who presents today for initial follow-up s/p LUE AVF revision with cadaver jump graft to the axillary vein. About 4 days after surgery, she developed LUE pain, primarily from elbow into her hand, which is aching in nature with some associated paresthesias and weakness in her L hand. The pain is severe for her. She can move her hand, but lacks strength to manager radio/hold things with her L hand. She does also endorse pain in her upper arm as well, but feels this is more related to the incision. She has continued dialysis via R IJ catheter, no issues with this. Objective Details: A&Ox3, NAD RRR Nonlabored respirations Left upper arm AV fistula with palpable thrill through the [place] component, palpable but more pulsatile through the cadaver jump graft; good bruit throughout L hand is slightly cool compared to R hand. L radial pulse is palpable, L ulnar pulse is very diminished to palpation but good doppler signal. Capillary refill ~3 seconds to L fingers. Motor function intact, weak with L hand. Coding Level of Care Code Global Post Op Diagnoses Steal syndrome as complication of dialysis access T82.898A AV fistula I77.0 [facility] Medical History Contusion of left hip Contusion of right forearm Arteriovenous fistula History of Holter monitoring MRSA infection History of steroid therapy Thyroid disease History of renal dialysis History of renal disease Low iron Syncope History of Crohn's disease GERD (gastroesophageal reflux disease) Chronic cough History of edema History of atrial fibrillation Secondary hyperparathyroidism DM type 2 (diabetes mellitus, type 2) Depression Asthma Migraines ESRD (end stage renal disease) on dialysis Lung nodule seen on imaging study Blindness Cataract (lens) fragments in eye following cataract surgery, bilateral Atrial fibrillation, controlled Essential hypertension Uses prosthesis Wears glasses Anxiety Insulin dependent diabetes mellitus Uses wheelchair Arthritis DVT (deep venous thrombosis) High cholesterol TIA (transient ischemic attack) Seizures Dietary restriction History of hiatal hernia Non-smoker CPAP (continuous positive airway pressure) dependence Sleep apnea Shortness of breath on exertion History of echocardiogram History of stress test Cardiology follow-up encounter Positive QuantiFERON-TB Gold test Crohn's disease Hx of pancreatitis Hepatosplenomegaly Enteritis Nausea and vomiting Alternating constipation and diarrhea Diarrhea H[place]ON (nonalcoholic steatohepatitis) CKD (chronic kidney disease) Viral gastroenteritis Acute right flank pain Anemia in chronic kidney disease (CKD) COVID-19 virus detected Pneumonia due to COVID-19 virus Below-knee amputation of left lower extremity Osteomyelitis of left foot History of stroke COPD (chronic obstructive pulmonary disease) IBS (irritable bowel syndrome) GERD (gastroesophageal reflux disease) Diastolic dysfunction Cellulitis of left foot Iron (Fe) deficiency anemia Acute kidney injury Right middle lobe pneumonia Hypomagnesemia Osteomyelitis of right foot Peripheral neuropathy Depression Infection of right great toe due to methicillin resistant Staphylococcus aureus (MRSA) Cellulitis of right foot History of MRSA infection Diabetes mellitus Asthma Pulmonary hypertension SLE (systemic lupus erythematosus) Surgical History History of colonoscopy Hx of BKA Status post insertion of spinal cord stimulator S/P arteriovenous (AV) fistula repair S/P arteriovenous (AV) fistula creation History of lithotripsy History of below-knee amputation of left lower extremity History of eye surgery History of temporal artery biopsy History of lymph node biopsy History of liver biopsy Partial nontraumatic amputation of right foot History of amputation of hallux History of carpal tunnel surgery History of hernia repair History of cholecystectomy History of hysterectomy History of tubal ligation Status post transmetatarsal amputation of right foot Family History Mother Hypertension Cancer skinGrandmother Hypertension DiabetesBrother Cancer NHL ArthritisBrother Arthritis Social History Smoking Status: Never smoker second hand exposure: Yes alcohol intake: current details: rare substance use type: does not use Assessment and Plan (No Qualifiers) Assessment and Plan (1) Steal syndrome as complication of dialysis access: Status: Acute (2) AV fistula: Status: Acute Plan -arterial study confirms mild steal by digit waveforms; thumb waveforms normal and thumb no thumb symptoms -ligate fistula
[2024-09-28] MEDS: Cefazolin 1 GM/5 ML Vial 2 GM IV (14:12)
[2024-09-28] MEDS: Lactated Ringers 500 ML IV (14:12)
[2024-09-28] MEDS: Lidocaine 1% (5 ml sdv) 5 ML Vial IV (14:17)
[2024-09-28] MEDS: Lidocaine 1% (20 ml mdv) 20 ML Vial (14:39)
[2024-09-28] MEDS: fentaNYL 100 MCG/2 ML Ampul IV (14:41)
--- NOTE | 2024-09-28 15:31 | OP.PCM_ITS ---
Operative Report (Standard) Operative Information Date of Procedure: 09/28/24 Pre-Operative Diagnosis: steal syndrome from left arm fistula Post-Operative Diagnosis: same Surgery/Procedure Performed: ligation left arm fistula byproducts supervisor: Yes Property Claims Manager: Bradley Huitron Tasks completed by machinist first class: Opening, Closing, Opening & closing, Hemostasis: Tie and Retracting Type of Anesthesia: General RN Documented Start/Stop Times: Operation Date: 09/28/24 14:00 Case Time Into Pre-Op 09/28/24 12:30 Anesthesia Start 09/28/24 14:11 Into Room 09/28/24 14:11 Procedure Start 09/28/24 14:39 Procedure End 09/28/24 15:22 Anesthesia End 09/28/24 15:28 Out of Room 09/28/24 15:28 Into Recovery 09/28/24 15:31 Out of Pre-Op Procedure Start Time: 14:40 Procedure Stop Time: 15:20 Select all DRAINS/GRAFTS/IMPLANTS that apply: None Estimated Blood Loss: 4 Specimen collected: No Description of surgery: HPI: Patient is a 54-year-old female with end-stage renal disease currently on dialysis. She previously had had a left forearm cephalic fistula which had failed so she Subsequently had an upper arm cephalic fistula created. This initially was maturing well however the outflow at the cephalic arch was occluded and unable to be treated with endovascular measures. At the time she had no evidence of steal symptoms and no concern for perfusion of her hand or digits. Ultimately she underwent jump graft revision with cadaver from the cephalic in the patent segment to the axillary vein. This improved the appearance of the fistula with thrill throughout however shortly after the procedure she developed pain in paresthesias in digits 2 through 5 and difficult to move her hand due to the pain. She had a noninvasive vascular study including digital waveforms with and without fistula compression. This revealed preserved normal waveform of the thumb at baseline with mildly diminished waveforms in the remaining digits which returned to normal with fistula compression. Overall her baseline waveforms were not severely diminished and she did have a palpable radial pulse however given the distribution of her sy mptoms and their correlation with the imaging it was felt that this was a perfusion related issue and that fistula ligation was appropriate. Description of procedure: Upon obtaining informed consent and verification correct patient procedure site the patient was taken to the operating where she was placed under general anesthesia. She was then positioned prepped and draped in usual sterile fashion a timeout was performed. The previous transverse incision was opened with 15 blade and Bovie used to dissect down through subcutaneous tissue. Self-retaining retractor was then put in position and further dissection carried down until the vessel was visualized. This was then dissected free proximally into dense scar tissue and distally to the bifurcation and to the median cubital branch which was emptying into the basilic vein and the cephalic vein. A right angle was used to dissect these vessels free circumferentially and then ligated individually with 2-0 silk ties. The fistula was assessed with Doppler and found to be successfully ligated. There was a mildly improved radial pulse though this was near normal at baseline. The incision was then closed with 3-0 Vicryl, 4-0 Monocryl for the skin. The patient was then taken to the recovery room with anticipated discharge to home. Surgical Findings: palpable radial pulse Complications Complications: No
--- NOTE | 2024-09-28 15:33 | PCM.POST.ANE ---
Anesthesia: Postop Eval I Current Vital Signs Temperature: 97.4 F Pulse Rate: 94 Blood Pressure: 126/76 Respiratory Rate: 16 Pulse Ox: 99 Oxygen Delivery Method: Nasal Cannula Oxygen Flow Rate (L/min): 2 Assessment Airway patent: Yes Spontaneous unlabored respirations: Yes Mental status: Awake and Calm nausea: No Vomiting: No Anesthesia Complication: No Fluid Hydration Crystalloid volume administer (ml): 150 Total IV fluid infused: 150 Progress Note Anesthesia document: Postop Eval 1 completed: Yes
--- NOTE | 2024-09-28 16:03 | EX.PCM.DISCH ---
Discharge Instructions Diet Discharge Diet: No restrictions Activity Lifting Restrictions: do not lift > 20 lbs for 3 weeks with left arm Additional Activity Instructions:: do not submerge incision for 3 weeks Dressing / Incision Call your doctor if your incision/area has: Sudden Increased Bleeding, Increased Pain/ Swelling, Increased Redness and Foul Smelling Discharge Remove Dressing in: 2 days Follow Up Care Test Results: Test results from this visit will be discussed in further detail at your follow-up appointment, if applicable. Discharge Plan Admission Attending Provider: Mikey Cavanaugh Primary Care Provider: Johann Jimenez Instructions Print Language: [place]ian Discharge Orders/Prescriptions Prescriptions: Continued ondansetron 4 mg tablet,disintegrating 8 mg PO Q8H PRN PRN (Reason: Nausea) albuterol sulfate [ProAir HFA] 90 mcg/actuation HFA aerosol inhaler 2 puff inhalation Q4-6H PRN (Reason: shortness of breath or wheezing) calcitriol 0.5 mcg capsule 0.5 mcg PO QHS Retacrit 2,000 unit/mL solution 40,000 unit subcut MO Rx Instructions: 40,0000 units calcitriol 0.25 mcg capsule 0.25 mcg PO QDAY Nephro-[place] 0.8 mg tablet 1 tab PO QDAY promethazine 12.5 mg tablet 12.5 mg PO Q6H PRN (Reason: nausea and vomiting) Qty: 20 2RF cholestyramine (with sugar) 4 gram powder 4 g PO HS Qty: 378 1RF Rx Instructions: give w/evening meal;avoid other meds 1hr before/4-6hr after dose Trelegy Ellipta 200-62.5-25 mcg blister with device 1 inh inhalation Q24H Qty: 60 5RF insulin lispro [Humalog KwikPen Insulin] 100 unit/mL insulin pen 1 sliding scale dose subcut TID methocarbamol 500 mg tablet 500 mg PO BID PRN (Reason: muscle spasm) Velphoro 500 mg tablet,chewable 1,000 mg PO TID duloxetine 60 MG capsule 60 mg PO QHS Patient Comments: DEPRESSION AND PAIN CONTROL insulin regular hum U-500 conc 20 ML solution 2.2 units SC CONT Patient Comments: insulin pump Rx Instructions: changed site today 02/19/20 trazodone 100 MG tablet 150 mg PO QHS Patient Comments: SLEEP ergocalciferol (vitamin D2) 50,000 UNIT capsule 50,000 unit PO FR Patient Comments: supplement albuterol sulfate 2.5 MG/3 ML solution for nebulization 2.5 mg INHALATION Q4H PRN PRN (Reason: Wheezing) Patient Comments: shortness of breath gabapentin 800 MG tablet 800 mg PO TID Patient Comments: nerve pain rosuvastatin 10 mg tablet 40 mg PO QHS magnesium oxide 400 MG tablet 400 mg PO DAILYCM duloxetine 30 mg capsule,delayed release(DR/EC) 30 mg PO DAILY hydroxyzine pamoate 50 MG capsule 50 mg PO TID PRN (Reason: Anxiety) cinacalcet 30 mg tablet 60 mg PO DAILY omeprazole 40 mg capsule,delayed release(DR/EC) 40 mg PO BID midodrine 10 mg tablet 20 mg PO 4XD PRN (Reason: .) Rx Instructions: two tablets up to qid fenofibrate nanocrystallized 48 mg tablet 48 mg PO DAILY Venofer 100 mg iron/5 mL solution 100 mg IV QWEEK Patient Comments: WITH DIALYSIS Rx Instructions: administer over 15 minutes oxycodone-acetaminophen [Percocet] 5-325 mg tablet 1 tab PO TID metoclopramide HCl 5 mg tablet 5 mg PO BID PRN (Reason: nausea and vomiting) diphenoxylate-atropine [Lomotil] 2.5-0.025 mg tablet 1 tab PO BID PRN (Reason: diarrhea) Qty: 180 3RF hyoscyamine sulfate 0.125 mg tablet 0.125 mg PO BID-QID PRN (Reason: abdominal pain) Qty: 360 3RF fludrocortisone 0.1 mg tablet 0.1 mg PO DAILY Qty: 30 0RF Skyrizi 360 mg/2.4 mL (150 mg/mL) wearable injector 360 mg subcut .COMPLEX Qty: 2.4 6RF Rx Instructions: 360 mg subcutaneously every 8 weeks; Held Eliquis 5 mg tablet 5 mg PO BID Hold Instructions: Resume on 09/29/24. PM dose Rx Instructions: HOLD 09/26/2024 Referrals / Follow Up: Johann Jimenez MD [Primary Care Provider] - Disposition Disposition (needs filled in before D/C Order can be placed): Home, Self Care
--- NOTE | 2024-09-28 16:35 | POSTOPAN2_ITS ---
Anesthesia Postop Eval I Sum Postop Eval Completion status Anesthesia document: Postop Eval 1 completed: Yes Anesthesia Postop Eval I Summary Anesthesia Postop Eval I Summary: Anesthesia Postop Eval I: Assessment Summary Airway patent Yes 09/28/24 15:35 [email or web address] Spontaneous unlabored Yes 09/28/24 15:35 [email or web address] respirations Mental status Awake,Calm 09/28/24 15:35 [email or web address] nausea No 09/28/24 15:35 [email or web address] Vomiting No 09/28/24 15:35 [email or web address] Anesthesia Postop Eval I: Fluid Summary Crystalloid volume administer 150 09/28/24 15:35 [email or web address] (ml) Colloids volume administered ( ml) Blood Product volume administered (ml) Total IV fluid infused 150 09/28/24 15:35 [email or web address] Anesthesia Postop Eval I: Summary Notes Anesthesia Complication No 09/28/24 15:35 [email or web address] Anesthesia Complication Comment: Post-operative progress note Anesthesia: Postop Eval II Evaluation Mental status: Awake Pain Level: 2 nausea: No Vomiting: No
--- NOTE | 2024-09-28 16:35 | PCM.POSTANE2 ---
Anesthesia Postop Eval I Sum Postop Eval Completion status Anesthesia document: Postop Eval 1 completed: Yes Anesthesia Postop Eval I Summary Anesthesia Postop Eval I Summary: Anesthesia Postop Eval I: Assessment Summary Airway patent Yes 09/28/24 15:35 LICENSED NUCLEAR CONTROL ROOM OPERATOR.[email or web address] Spontaneous unlabored Yes 09/28/24 15:35 LICENSED NUCLEAR CONTROL ROOM OPERATOR.[email or web address] respirations Mental status Awake,Calm 09/28/24 15:35 LICENSED NUCLEAR CONTROL ROOM OPERATOR.[email or web address] nausea No 09/28/24 15:35 LICENSED NUCLEAR CONTROL ROOM OPERATOR.[email or web address] Vomiting No 09/28/24 15:35 LICENSED NUCLEAR CONTROL ROOM OPERATOR.[email or web address] Anesthesia Postop Eval I: Fluid Summary Crystalloid volume administer 150 09/28/24 15:35 LICENSED NUCLEAR CONTROL ROOM OPERATOR.[email or web address] (ml) Colloids volume administered ( ml) Blood Product volume administered (ml) Total IV fluid infused 150 09/28/24 15:35 LICENSED NUCLEAR CONTROL ROOM OPERATOR.[email or web address] Anesthesia Postop Eval I: Summary Notes Anesthesia Complication No 09/28/24 15:35 LICENSED NUCLEAR CONTROL ROOM OPERATOR.[email or web address] Anesthesia Complication Comment: Post-operative progress note Anesthesia: Postop Eval II Evaluation Mental status: Awake Pain Level: 2 nausea: No Vomiting: No
== END 2024-09-28 16:49 | disposition home or self-care (01) ==
LOC: SDC 12:24 → AC 12:26
PROVIDERS: PCP Family Medicine; Referring Provider Surgery Trauma Surgery; Visit Provider Surgery Trauma Surgery
PROC: (CPT 37607; principal; 2024-09-28 13:45)
DX: T82.898A Other specified complication of vascular prosthetic devices, implants and grafts, initial encounter (principal); N18.6 End stage renal disease; I12.0 Hypertensive chronic kidney disease with stage 5 chronic kidney disease or end stage renal disease; Z89.512 Acquired absence of left leg below knee; K50.90 Crohn's disease, unspecified, without complications; J44.9 Chronic obstructive pulmonary disease, unspecified; I48.91 Unspecified atrial fibrillation; M32.9 Systemic lupus erythematosus, unspecified; Z79.4 Long term (current) use of insulin; E11.22 Type 2 diabetes mellitus with diabetic chronic kidney disease; E11.40 Type 2 diabetes mellitus with diabetic neuropathy, unspecified; Y84.1 Kidney dialysis as the cause of abnormal reaction of the patient, or of later complication, without mention of misadventure at the time of the procedure; K21.9 Gastro-esophageal reflux disease without esophagitis; F32.A Depression, unspecified; F41.9 Anxiety disorder, unspecified; D63.1 Anemia in chronic kidney disease; N25.81 Secondary hyperparathyroidism of renal origin; K75.81 Nonalcoholic steatohepatitis (NASH); E83.42 Hypomagnesemia; E78.00 Pure hypercholesterolemia, unspecified; G47.30 Sleep apnea, unspecified; Z79.51 Long term (current) use of inhaled steroids; Z86.73 Personal history of transient ischemic attack (TIA), and cerebral infarction without residual deficits; Z79.01 Long term (current) use of anticoagulants; Z86.718 Personal history of other venous thrombosis and embolism; Z79.899 Other long term (current) drug therapy; Z96.41 Presence of insulin pump (external) (internal)
CPT/HCPCS: 37607; 01770; 82962; A4648; A4216; J2405

== ENCOUNTER 2024-10-07 10:51 | Emergency (ER) | payer MEDICARE, SELFPAY ==
[2024-10-07] VITALS (15 sets, daily range): BP systolic 113–162; BP diastolic 45–78; PULSE 86–102; RESP 16–22; TEMP 36.6–37.2; O2SAT 87–100; BMI 34.8
--- NOTE | 2024-10-07 11:24 | EX.ED.DYSGE1 ---
HPI History of Present Illness Chief Complaint: Wound Check [facility] Medical History (Updated 10/07/24 @ 13:[address] Neftali Read MD) Contusion of left hip Contusion of right forearm Arteriovenous fistula History of Holter monitoring MRSA infection History of steroid therapy Thyroid disease History of renal dialysis History of renal disease Low iron Syncope History of Crohn's disease GERD (gastroesophageal reflux disease) Chronic cough History of edema History of atrial fibrillation Secondary hyperparathyroidism DM type 2 (diabetes mellitus, type 2) Depression Asthma Migraines ESRD (end stage renal disease) on dialysis Lung nodule seen on imaging study Blindness Cataract (lens) fragments in eye following cataract surgery, bilateral Atrial fibrillation, controlled Essential hypertension Uses prosthesis Wears glasses Anxiety Insulin dependent diabetes mellitus Uses wheelchair Arthritis DVT (deep venous thrombosis) High cholesterol TIA (transient ischemic attack) Seizures Dietary restriction History of hiatal hernia Non-smoker CPAP (continuous positive airway pressure) dependence Sleep apnea Shortness of breath on exertion History of echocardiogram History of stress test Cardiology follow-up encounter Positive QuantiFERON-TB Gold test Crohn's disease Hx of pancreatitis Hepatosplenomegaly Enteritis Nausea and vomiting Alternating constipation and diarrhea Diarrhea HINTON (nonalcoholic steatohepatitis) CKD (chronic kidney disease) Viral gastroenteritis Acute right flank pain Anemia in chronic kidney disease (CKD) COVID-19 virus detected Pneumonia due to COVID-19 virus Below-knee amputation of left lower extremity Osteomyelitis of left foot History of stroke COPD (chronic obstructive pulmonary disease) IBS (irritable bowel syndrome) GERD (gastroesophageal reflux disease) Diastolic dysfunction Cellulitis of left foot Iron (Fe) deficiency anemia Acute kidney injury Right middle lobe pneumonia Hypomagnesemia Osteomyelitis of right foot Peripheral neuropathy Depression Infection of right great toe due to methicillin resistant Staphylococcus aureus (MRSA) Cellulitis of right foot History of MRSA infection Diabetes mellitus Asthma Pulmonary hypertension SLE (systemic lupus erythematosus) Home Medications ?Medication ?Instructions ?Recorded ?Last Taken ?Type duloxetine 60 mg capsule,delayed 60 mg PO QHS depression 11/26/12 06/22/24 History release insulin regular hum U-500 conc 500 2.2 units subcut CONT insulin pump 10/02/15 04/26/24 History unit/mL subcutaneous soln trazodone 100 mg tablet 150 mg PO QHS sleep 12/27/15 06/22/24 History ergocalciferol (vitamin D2) 1,250 50,000 unit PO FR supplement 01/24/16 06/17/24 History mcg (50,000 unit) capsule albuterol sulfate 2.5 mg/3 mL 2.5 mg inhalation Q4H PRN PRN 06/09/16 04/20/24 History (0.083 %) solution for nebulization Wheezing gabapentin 800 mg tablet 800 mg PO TID neuropathy 05/19/17 06/22/24 History rosuvastatin 10 mg tablet 40 mg PO QHS cholesterol 06/03/17 06/22/24 History magnesium oxide 400 mg (241.3 mg 400 mg PO DAILYCM supplement 07/30/18 06/22/24 History magnesium) tablet hydroxyzine pamoate 50 mg capsule 50 mg PO TID PRN Anxiety 02/20/20 04/25/24 History duloxetine 30 mg capsule,delayed 30 mg PO DAILY depression 05/09/20 06/22/24 History release ondansetron 4 mg disintegrating 8 mg PO Q8H PRN PRN Nausea 09/03/21 01/11/24 History tablet diphenoxylate-atropine 2.5 1 tab PO BID PRN diarrhea #180 tabs 08/04/22 04/25/24 Rx mg-0.025 mg tablet (Lomotil) hyoscyamine sulfate 0.125 mg tablet 0.125 mg PO BID-QID PRN abdominal 08/04/22 Unknown Rx pain #360 tabs albuterol sulfate 90 mcg/actuation 2 puff inhalation Q4-6H PRN 02/26/23 06/23/24 History aerosol inhaler (ProAir HFA) shortness of breath or wheezing fenofibrate nanocrystallized 48 mg 48 mg PO DAILY . 08/11/23 06/22/24 History tablet cinacalcet 30 mg tablet 60 mg PO DAILY . 10/23/23 06/22/24 History midodrine 10 mg tablet 20 mg PO 4XD PRN . 10/23/23 04/25/24 History omeprazole 40 mg capsule,delayed 40 mg PO BID GERD 10/23/23 09/28/24 History release fludrocortisone 0.1 mg tablet 0.1 mg PO DAILY #30 TABLETS 12/18/23 06/22/24 Rx calcitriol 0.25 mcg capsule 0.25 mcg PO QDAY 02/03/24 06/22/24 History calcitriol 0.5 mcg capsule 0.5 mcg PO QHS . 02/03/24 06/22/24 History vitamin B complex-vitamin C-folic 1 tab PO QDAY 02/03/24 04/25/24 History acid 0.8 mg tablet (Nephro-Carolina) risankizumab-rzaa 360 mg/2.4 mL 360 mg (2.4 mL) subcut .COMPLEX . 04/11/24 06/11/24 Rx (150 mg/mL) subcut wearable #2.4 mL injector (Skyrizi) apixaban 5 mg tablet (Eliquis) 5 mg PO BID 04/20/24 09/26/24 History Held on 09/28/24. Instructions: Resume on 09/29/24. PM dose iron sucrose 100 mg iron/5 mL 100 mg IV QWEEK 04/26/24 Unknown History intravenous solution (Venofer) cholestyramine (with sugar) 4 gram 4 g PO HS #378 grams 05/06/24 06/22/24 Rx oral powder epoetin regan-epbx 2,000 unit/mL 40,000 unit subcut MO . 05/06/24 06/20/24 History injection solution (Retacrit) promethazine 12.5 mg tablet 12.5 mg PO Q6H PRN nausea and 05/06/24 Unknown Rx vomiting #20 tabs fluticasone fur. 200 mcg-umeclid 1 inh inhalation Q24H #60 ea 06/10/24 09/28/24 Rx 62.5 mcg-vilant 25 mcg inhalat.powder (Trelegy Ellipta) insulin lispro 100 unit/mL 1 sliding scale dose subcut TID 08/12/24 Unknown History subcutaneous pen (Humalog KwikPen (U-100) Insulin) methocarbamol 500 mg tablet 500 mg PO BID PRN muscle spasm 08/12/24 Unknown History sucroferric oxyhydroxide 500 mg 1,000 mg PO TID 08/12/24 Unknown History chewable tablet (Velphoro) metoclopramide HCl 5 mg tablet 5 mg PO BID PRN nausea and vomiting 08/25/24 Unknown History oxycodone-acetaminophen 5 mg-325 1 tab PO TID pain 08/25/24 Unknown History mg tablet (Percocet) cephalexin 500 mg capsule 500 mg PO Q6H 7 days #28 caps 10/05/24 Unknown Rx sulfamethoxazole 800 1 tab PO BID 14 days #28 tabs 10/05/24 Unknown Rx mg-trimethoprim 160 mg tablet (Bactrim DS) Allergy/AdvReac Type Severity Reaction Status Date / Time atorvastatin (From Lipitor) AdvReac Severe Vomiting Verified 10/07/24 10:51 Family History Mother Hypertension Cancer skin Grandmother Hypertension Diabetes Brother Cancer NHL Arthritis Brother Arthritis Surgical History Hx of surgical procedure History of colonoscopy Hx of BKA Status post insertion of spinal cord stimulator S/P arteriovenous (AV) fistula repair S/P arteriovenous (AV) fistula creation History of lithotripsy History of below-knee amputation of left lower extremity History of eye surgery History of temporal artery biopsy History of lymph node biopsy History of liver biopsy Partial nontraumatic amputation of right foot History of amputation of hallux History of carpal tunnel surgery History of hernia repair History of cholecystectomy History of hysterectomy History of tubal ligation Status post transmetatarsal amputation of right foot Social History (Updated 10/07/24 @ 11:19 by Bhavani Saenz) housing: house Smoking Status: Never smoker second hand exposure: Yes alcohol intake: current details: rare substance use type: does not use EXAM Physical Exam Const Vital Signs: 10/07/24 10:52 10/07/24 11:19 10/07/24 13:00 Temperature 98.4 F 98.2 F 98.3 F Temperature Source Oral Oral Oral Pulse Rate 102 H 99 87 Respiratory Rate 22 H 20 H 16 Blood Pressure 147/70 H 150/78 H 154/74 H Blood Pressure Mean 95 102 100 Pulse Ox 99 96 100 Oxygen Delivery Method Nasal Cannula Nasal Cannula Nasal Cannula Oxygen Flow Rate (L/min) 2 2 10/07/24 13:34 10/07/24 13:34 10/07/24 14:18 Temperature 98.4 F Temperature Source Temporal Pulse Rate 88 91 Respiratory Rate 16 17 Blood Pressure 162/45 H Blood Pressure Mean 84 Pulse Ox 100 98 Oxygen Delivery Method Nasal Cannula Oxygen Flow Rate (L/min) 2 10/07/24 14:54 10/07/24 15:00 10/07/24 16:00 Temperature 97.9 F 98.3 F Temperature Source Oral Oral Pulse Rate 94 95 86 Respiratory Rate 16 16 16 Blood Pressure 135/65 H 139/72 H 122/69 H Blood Pressure Mean 88 94 86 Pulse Ox 97 99 97 Oxygen Delivery Method Room Air Nasal Cannula Nasal Cannula Oxygen Flow Rate (L/min) 2 2 10/07/24 17:00 10/07/24 18:00 10/07/24 19:00 Temperature 98.3 F 98.4 F 98.5 F Temperature Source Oral Oral Oral Pulse Rate 99 95 92 Respiratory Rate 16 16 16 Blood Pressure 126/77 H 119/64 113/64 Blood Pressure Mean 93 82 80 Pulse Ox 98 99 98 Oxygen Delivery Method Nasal Cannula Nasal Cannula Nasal Cannula Oxygen Flow Rate (L/min) 2 2 10/07/24 20:00 10/07/24 21:00 Temperature 98.5 F 98.9 F Temperature Source Oral Oral Pulse Rate 94 88 Respiratory Rate 18 20 H Blood Pressure 135/68 H 124/69 H Blood Pressure Mean 90 87 Pulse Ox 99 98 Oxygen Delivery Method Nasal Cannula Oxygen Flow Rate (L/min) MDM MDM MDM Narrative Medical decision making narrative: HISTORY OF PRESENT ILLNESS: Chief complaint: Dialysis fistula pain and swelling 54-year-old female history of Crohn's disease, ESRD (on dialysis daily), pulmonary artery hypertension, A-fib on Eliquis presents with pain and swelling in her left arm secondary to recently placed dialysis fistula. States she started antibiotics 2 days ago with no relief of pain. She also notes her dialysis port is clotted. Notes she has not received a full dialysis session in the last week. Notes she still makes urine occasionally. Did go to bathroom before arrival. No she been feeling fatigued and fevers mostly at night. Notes temperature 101 last night. Denies cough. Notes history of MRSA. Notes she recently saw her vascular surgery [facility] who told her to return to the ED if symptoms got worse and she notes increasing swelling in her left arm. She notes shortness of breath as well. The patient also endorses nausea and vomiting began today. States she is not taking her antibiotics today. REVIEW OF SYSTEMS: Pertinent positives: Left arm pain, fever, shortness of breath Pertinent negatives: Chest pain PHYSICAL EXAM: Nursing triage notes reviewed, Vital signs reviewed Constitutional: please see mdm Lungs: Clear to auscultation, No wheezing or rales. No increased work of breathing, no conversational dyspnea, no accessory muscle use, no nasal flaring. No respiratory distress noted Heart: Regular rate and rhythm, No murmurs, No rubs and No gallops, 2+ distal pulses (radial, femoral, posterior tibial) in all extremities Extremities: Left upper extremity fistula site clean dry intact. No fluctuance, crepitus, palpable induration, drainage or significant pain. Left upper extremity slightly edematous. There is some erythema noted to the skin of the first digit of the left hand. Intact pulse in left upper extremity. Neuro: Intact 5/5 strength with ok sign (median), intact finger abduction (ulnar) intact wrist extension (radial n). Intact sensation in the radial, ulnar, and median nerve distributions. Skin: Surgical site clean dry intact. No crepitus, bullae, fluctuance or induration noted. MEDICAL DECISION MAKING: Chief Complaint: please see HPI External records reviewed: Reviewed vascular surgery note from 10/05/2024. This follow-up was for left upper extremity AV fistula secondary to steal syndrome. At this time a temperature of 101 was reported. Patient was prescribed Bactrim and Keflex for 7 days. Underwent ligation of left AV fistula on 09/28/2024 Per chart review tunneled catheter was placed by vascular surgery in April 2024 Factors affecting care: As per HPI Social determinants of health: none History obtained from others: none Consults: General surgery (Dr. Read) recommended transfer given multiple medical comorbidities and difficulty obtaining definitive access here at [facility]. [facility] (Dr. Hien) agreed to admit the patient. Excepted in transfer. [facility] Narrative: The patient was initially hemodynamically stable, afebrile saturating well on home oxygen. I considered the following differential diagnosis: Infected AV fistula, postop infection I obtained a broad lab to further determine if the patient was suffering from a life-threatening etiology. ALL IMAGES (IF OBTAINED) HAVE BEEN PERSONALLY REVIEWED AND INTERPRETED BY MYSELF. Lactate is wnl indicating no end-organ hypoperfusion and/or hypoxia. CBC shows no signs of significant systemic inflammation, noted anemia of chronic disease CMP with ESRD, hyperkalemia. I treated the patient's hyperkalemia with insulin, dextrose and albuterol. Gave Empiric vancomycin given concern for fistula infection Discussed with general surgery here who noted the patient would likely to be transferred given her complicated past medical history and need for definitive dialysis access in the setting of hyperkalemia. Patient was transferred [facility]. Discussed with Dr. Hein The patient and/or family, caregivers express understanding. The patient and/or family, caregivers agrees with the plan. Shared decision making: I will have a discussion with the patient and or visitors regarding risk/benefits of further testing or admission. They will be made aware of of the risk/benefits inherent in this decision they will be given the opportunity to voice understanding. Total critical care time today provided was at least 35 minutes. This excludes separately billable procedures. Critical care time (if documented) is secondary to the patient having high probability of clinically significant/life threatening deterioration in the patient's condition which required my urgent intervention. Impression: 1. Left arm pain 2. History of ESRD 3. AV fistula malfunction 4. Dialysis access malfunction 5. Nausea and vomiting 6. Hyperkalemia Dispo: Transfer to [facility] This note was generated with [employer] dictation software. It may contain incorrect words, spelling, and punctuation that were not noted in review of the chart prior to signing. Lab Data Labs: Laboratory Results - last 24 hr 10/07/24 10/07/24 10/07/24 12:13 12:15 13:37 WBC 5.1 RBC 2.68 L Hgb 8.8 L Hct 27.5 L MCV 102.6 H MCH 32.8 H MCHC 32.0 RDW Std Deviation 54.5 H RDW Coeff of Michael 14.6 Plt Count 116 L MPV 10.0 Immature Gran % (Auto) 2.000 H Neut % (Auto) 75.4 H Lymph % (Auto) 13.9 L Duval % (Auto) 6.6 Eos % (Auto) 2.1 Baso % (Auto) 0.0 Absolute Neuts (auto) 3.9 Absolute Lymphs (auto) 0.71 L Nucleated RBC % 0 Sodium 141 Potassium 6.0 H* Chloride 100 Carbon Dioxide 22.8 Anion Gap 18 H BUN 47 H Creatinine 7.74 H* Estim Creat Clear Calc 9.92 L* Est GFR (MDRD) Non-Af 6 L BUN/Creatinine Ratio 6.1 L Glucose 102 H Lactic Acid 1.3 Calcium 8.4 POC Glucose 71 L 10/07/24 10/07/24 16:35 17:31 WBC RBC Hgb Hct MCV MCH MCHC RDW Std Deviation RDW Coeff of Michael Plt Count MPV Immature Gran % (Auto) Neut % (Auto) Lymph % (Auto) Duval % (Auto) Eos % (Auto) Baso % (Auto) Absolute Neuts (auto) Absolute Lymphs (auto) Nucleated RBC % Sodium Potassium Chloride Carbon Dioxide Anion Gap BUN Creatinine Estim Creat Clear Calc Est GFR (MDRD) Non-Af BUN/Creatinine Ratio Glucose Lactic Acid Calcium POC Glucose 40 L* 90 Radiography Diagnostic Testing: Clinical Impression(s) from Imaging Studies Chest X-Ray 10/07/24 12:05 IMPRESSION: The tip of the right double lumen catheter is at the junction of the superior vena cava and right atrium. The lungs are clear. Reading Location: [id number] Discharge Plan Triage Chief Complaint: Wound Check ED Provider: Carlos Corrales Dx/Rx/DC Orders Prescriptions: No Action ondansetron 4 mg tablet,disintegrating 8 mg PO Q8H PRN PRN (Reason: Nausea) albuterol sulfate [ProAir HFA] 90 mcg/actuation HFA aerosol inhaler 2 puff inhalation Q4-6H PRN (Reason: shortness of breath or wheezing) calcitriol 0.5 mcg capsule 0.5 mcg PO QHS Retacrit 2,000 unit/mL solution 40,000 unit subcut MO Rx Instructions: 40,0000 units calcitriol 0.25 mcg capsule 0.25 mcg PO QDAY Nephro-Carolina 0.8 mg tablet 1 tab PO QDAY promethazine 12.5 mg tablet 12.5 mg PO Q6H PRN (Reason: nausea and vomiting) Qty: 20 2RF cholestyramine (with sugar) 4 gram powder 4 g PO HS Qty: 378 1RF Rx Instructions: give w/evening meal;avoid other meds 1hr before/4-6hr after dose Trelegy Ellipta 200-62.5-25 mcg blister with device 1 inh inhalation Q24H Qty: 60 5RF insulin lispro [Humalog KwikPen Insulin] 100 unit/mL insulin pen 1 sliding scale dose subcut TID methocarbamol 500 mg tablet 500 mg PO BID PRN (Reason: muscle spasm) Velphoro 500 mg tablet,chewable 1,000 mg PO TID sulfamethoxazole-trimethoprim [Bactrim DS] 800-160 mg tablet 1 tab PO BID 14 Days Qty: 28 0RF cephalexin 500 mg capsule 500 mg PO Q6H 7 Days Qty: 28 0RF duloxetine 60 MG capsule 60 mg PO QHS Patient Comments: DEPRESSION AND PAIN CONTROL insulin regular hum U-500 conc 20 ML solution 2.2 units SC CONT Patient Comments: insulin pump Rx Instructions: changed site today 02/19/20 trazodone 100 MG tablet 150 mg PO QHS Patient Comments: SLEEP ergocalciferol (vitamin D2) 50,000 UNIT capsule 50,000 unit PO FR Patient Comments: supplement albuterol sulfate 2.5 MG/3 ML solution for nebulization 2.5 mg INHALATION Q4H PRN PRN (Reason: Wheezing) Patient Comments: shortness of breath gabapentin 800 MG tablet 800 mg PO TID Patient Comments: nerve pain rosuvastatin 10 mg tablet 40 mg PO QHS magnesium oxide 400 MG tablet 400 mg PO DAILYCM duloxetine 30 mg capsule,delayed release(DR/EC) 30 mg PO DAILY hydroxyzine pamoate 50 MG capsule 50 mg PO TID PRN (Reason: Anxiety) cinacalcet 30 mg tablet 60 mg PO DAILY omeprazole 40 mg capsule,delayed release(DR/EC) 40 mg PO BID midodrine 10 mg tablet 20 mg PO 4XD PRN (Reason: .) Rx Instructions: two tablets up to qid fenofibrate nanocrystallized 48 mg tablet 48 mg PO DAILY Eliquis 5 mg tablet 5 mg PO BID Rx Instructions: HOLD 09/26/2024 Venofer 100 mg iron/5 mL solution 100 mg IV QWEEK Patient Comments: WITH DIALYSIS Rx Instructions: administer over 15 minutes oxycodone-acetaminophen [Percocet] 5-325 mg tablet 1 tab PO TID metoclopramide HCl 5 mg tablet 5 mg PO BID PRN (Reason: nausea and vomiting) diphenoxylate-atropine [Lomotil] 2.5-0.025 mg tablet 1 tab PO BID PRN (Reason: diarrhea) Qty: 180 3RF hyoscyamine sulfate 0.125 mg tablet 0.125 mg PO BID-QID PRN (Reason: abdominal pain) Qty: 360 3RF fludrocortisone 0.1 mg tablet 0.1 mg PO DAILY Qty: 30 0RF Skyrizi 360 mg/2.4 mL (150 mg/mL) wearable injector 360 mg subcut .COMPLEX Qty: 2.4 6RF Rx Instructions: 360 mg subcutaneously every 8 weeks; Primary Care Provider: Johann Jimenez Referrals: Johann Jimenez MD [Primary Care Provider] - Print Language: Arabic
--- NOTE | 2024-10-07 11:29 | EKG12_ITS ---
Test Reason : ARRYTH Blood Pressure : */* mmHG Vent. Rate : 88 BPM Atrial Rate : 88 BPM P-R Int : 148 ms QRS Dur : 84 ms QT Int : 398 ms P-R-T Axes : 59 -25 74 degrees QTcB Int : 481 ms Normal sinus rhythm QTcB >= 480 msec Abnormal ECG Confirmed by MARYURI KUMAR, PHIL ([id number]), assignment editor MELISSA TAVERAS ([id number]) on 10/10/2024 7:34:25 AM Referred By: Confirmed By: PHIL WAHL MD
--- NOTE | 2024-10-07 12:05 | RAD_ITS ---
PROCEDURE: CHEST 1 VIEW (PORTABLE) 10/07/2024 REASON FOR EXAM: MISSED DIALYSIS TECHNIQUE: Frontal view of the chest. COMPARISON: Prior chest radiograph dated August 11, 2023. FINDINGS: Hardware: A right-sided double-lumen catheter is seen with the tip in the right atrium. Heart: Cardiomegaly. Lungs: Lungs are clear. Bones: The bones are unremarkable. Other: RAD/Chest 1 View (Portable) IMPRESSION: The tip of the right double lumen catheter is at the junction of the superior v quan cava and right atrium. The lungs are clear. Reading Location: [id number]
[2024-10-07 12:27] LABS: Hematocrit 27.5 % (37-47); Hemoglobin 8.8 g/dL (12.0-15.0); Immature Granulocytes Count 0.100 X10^3/uL (0.0-0.0); Mean Corp Hgb Conc 32.0 g/dL (32-36); Mean Corpuscular Volume 102.6 fL (81-99); Mean Platelet Vol. 10.0 fl (6.2-12.0); NRBC Flagged by Analyzer 0 % (0-5); Platelet Count 116 K/mm3 (150-450); RBC Distribution Width CV 14.6 % (11.6-14.6); RBC Distribution Width SD 54.5 fl (35.1-43.9); Red Blood Count 2.68 M/mm3 (4.2-5.4); White Blood Count 5.1 K/mm3 (4.4-11.0)
[2024-10-07 13:12] LABS: Anion Gap 18 (5-15); BUN 47 mg/dL (4-19); BUN/Creat Ratio 6.1 RATIO (10-20); Calcium,Total 8.4 mg/dL (7.6-11.0); Carbon Dioxide 22.8 mmol/L (21.0-32.0); Chloride 100 mmol/L (98-108); Estimated Creatinine Clearance 9.92 ml/min (50-250); Glucose 102 mg/dL (70-99); Potassium 6.0 mmol/L (3.3-5.1)
--- NOTE | 2024-10-07 13:17 | EX.PCM.CON.S ---
Assessment & Plan Assessment/Plan (1) Hemodialysis catheter dysfunction: PLAN: Patient is a 54-year-old female who is evaluated for hemodialysis catheter dysfunction in the right IJ dialysis catheter. Her dialysis treatments have been far from optimal in the past 3 weeks and her labs reflect significant hyperkalemia requiring urgent dialysis. Beyond this she is being treated by vascular surgery for possible infection at the site of a left AV fistula ligation. Unfortunately, vascular surgery is unavailable. In my evaluation I am not convinced of an infection of the extremity, the patient cautions that she does not present normally with infections and had a rather benign presentation in the midst of a severe MRSA infection previously. Concerning her dialysis, I shared with her that I would not want to place a tunneled line if she was in any way bacteremic and could consider a interim nontunneled line that would be pulled and then another procedure performed. Additionally, patient does appear to have a patent left internal jugular vein so this could be a destination for a new tunneled catheter. However, as I reviewed patient's EMR records she has had 11 vascular procedures for her left-sided hemodialysis access?not withstanding a number of PICC lines (at least one of the left side). My concern is if this dialysis access is unsuccessful we have neither interventional radiology or vascular surgery available to us until mid next week at the earliest. Therefore, it is my recommendation transfer be sought to a tertiary facility with these additional service lines available. Recommendation extended the patient and she and her family were receptive. Recommendation also conveyed to emergency medicine. Transfer to be sought. Neftali Read MD General Surgery Endocrine Surgery Pager: [facility] [address] [place] [address], [address] [place] [address] Office: [phone] HPI Consult Data Date of Consult: 10/07/24 HPI Narrative Reason for Consultation: Hemodialysis catheter malfunction HPI Narrative: FORD HESTER, is a 54 F who presents to [facility] with multiple complaints including nonfunctional right IJ hemodialysis catheter and pain from left upper extremity following left AV fistula ligation. Patient is reportedly well-known to the vascular surgery service for multiple procedures related to her left AV fistula. She shares she was first placed on dialysis 2 years ago as a consequence of both diabetes and multiple kidney stones. She describes daily hemodialysis at home but checks in with her fitness coordinator at a local dialysis center. She relates that for the last 3 weeks she has had catheter dysfunction and her only complete dialysis session in the past 3 weeks was 1 week ago today. Otherwise she describes multiple alarms coming up on her home dialysis machine (despite being switched for another one) and lack of success with [facility] applications at the dialysis center. She adds that she recently had blood work showing significant increases in her phosphate level and potassium. Outside of the above patient was recently seen by vascular surgery in their outpatient clinic for follow-up of her AV fistula ligation. She shares that while her steal symptoms have resolved she now has redness and burning in her fingers and had significant redness of her operative site. She was seen by KEANU Mireles of vascular surgery at that time and was placed on antibiotics due to concern for an infection. She is concerned that the antibiotics are simply causing her GI distress and that her infection is spreading. She notes that she does not normally respond to infections and, historically, with a MRSA infection she had a normal white blood cell count. As alluded to above, patient has history of MRSA and chronic osteomyelitis requiring bilateral PICC lines (at various times). Additionally, she has a host of other comorbidities to include ROSENDO on CPAP, pulmonary hypertension, COPD, type 2 diabetes, DVT, Crohn's. [facility] Medical History (Updated 10/07/24 @ 13:[address] Neftali Read MD) Contusion of left hip Contusion of right forearm Arteriovenous fistula History of Holter monitoring MRSA infection History of steroid therapy Thyroid disease History of renal dialysis History of renal disease Low iron Syncope History of Crohn's disease GERD (gastroesophageal reflux disease) Chronic cough History of edema History of atrial fibrillation Secondary hyperparathyroidism DM type 2 (diabetes mellitus, type 2) Depression Asthma Migraines ESRD (end stage renal disease) on dialysis Lung nodule seen on imaging study Blindness Cataract (lens) fragments in eye following cataract surgery, bilateral Atrial fibrillation, controlled Essential hypertension Uses prosthesis Wears glasses Anxiety Insulin dependent diabetes mellitus Uses wheelchair Arthritis DVT (deep venous thrombosis) High cholesterol TIA (transient ischemic attack) Seizures Dietary restriction History of hiatal hernia Non-smoker CPAP (continuous positive airway pressure) dependence Sleep apnea Shortness of breath on exertion History of echocardiogram History of stress test Cardiology follow-up encounter Positive QuantiFERON-TB Gold test Crohn's disease Hx of pancreatitis Hepatosplenomegaly Enteritis Nausea and vomiting Alternating constipation and diarrhea Diarrhea HINTON (nonalcoholic steatohepatitis) CKD (chronic kidney disease) Viral gastroenteritis Acute right flank pain Anemia in chronic kidney disease (CKD) COVID-19 virus detected Pneumonia due to COVID-19 virus Below-knee amputation of left lower extremity Osteomyelitis of left foot History of stroke COPD (chronic obstructive pulmonary disease) IBS (irritable bowel syndrome) GERD (gastroesophageal reflux disease) Diastolic dysfunction Cellulitis of left foot Iron (Fe) deficiency anemia Acute kidney injury Right middle lobe pneumonia Hypomagnesemia Osteomyelitis of right foot Peripheral neuropathy Depression Infection of right great toe due to methicillin resistant Staphylococcus aureus (MRSA) Cellulitis of right foot History of MRSA infection Diabetes mellitus Asthma Pulmonary hypertension SLE (systemic lupus erythematosus) Home Medications ?Medication ?Instructions ?Recorded ?Last Taken ?Type duloxetine 60 mg capsule,delayed 60 mg PO QHS depression 11/26/12 06/22/24 History release insulin regular hum U-500 conc 500 2.2 units subcut CONT insulin pump 10/02/15 04/26/24 History unit/mL subcutaneous soln trazodone 100 mg tablet 150 mg PO QHS sleep 12/27/15 06/22/24 History ergocalciferol (vitamin D2) 1,250 50,000 unit PO FR supplement 01/24/16 06/17/24 History mcg (50,000 unit) capsule albuterol sulfate 2.5 mg/3 mL 2.5 mg inhalation Q4H PRN PRN 06/09/16 04/20/24 History (0.083 %) solution for nebulization Wheezing gabapentin 800 mg tablet 800 mg PO TID neuropathy 05/19/17 06/22/24 History rosuvastatin 10 mg tablet 40 mg PO QHS cholesterol 06/03/17 06/22/24 History magnesium oxide 400 mg (241.3 mg 400 mg PO DAILYCM supplement 07/30/18 06/22/24 History magnesium) tablet hydroxyzine pamoate 50 mg capsule 50 mg PO TID PRN Anxiety 02/20/20 04/25/24 History duloxetine 30 mg capsule,delayed 30 mg PO DAILY depression 05/09/20 06/22/24 History release ondansetron 4 mg disintegrating 8 mg PO Q8H PRN PRN Nausea 09/03/21 01/11/24 History tablet diphenoxylate-atropine 2.5 1 tab PO BID PRN diarrhea #180 tabs 08/04/22 04/25/24 Rx mg-0.025 mg tablet (Lomotil) hyoscyamine sulfate 0.125 mg tablet 0.125 mg PO BID-QID PRN abdominal 08/04/22 Unknown Rx pain #360 tabs albuterol sulfate 90 mcg/actuation 2 puff inhalation Q4-6H PRN 02/26/23 06/23/24 History aerosol inhaler (ProAir HFA) shortness of breath or wheezing fenofibrate nanocrystallized 48 mg 48 mg PO DAILY . 08/11/23 06/22/24 History tablet cinacalcet 30 mg tablet 60 mg PO DAILY . 10/23/23 06/22/24 History midodrine 10 mg tablet 20 mg PO 4XD PRN . 10/23/23 04/25/24 History omeprazole 40 mg capsule,delayed 40 mg PO BID GERD 10/23/23 09/28/24 History release fludrocortisone 0.1 mg tablet 0.1 mg PO DAILY #30 TABLETS 12/18/23 06/22/24 Rx calcitriol 0.25 mcg capsule 0.25 mcg PO QDAY 02/03/24 06/22/24 History calcitriol 0.5 mcg capsule 0.5 mcg PO QHS . 02/03/24 06/22/24 History vitamin B complex-vitamin C-folic 1 tab PO QDAY 02/03/24 04/25/24 History acid 0.8 mg tablet (Nephro-[place]) risankizumab-rzaa 360 mg/2.4 mL 360 mg (2.4 mL) subcut .COMPLEX . 04/11/24 06/11/24 Rx (150 mg/mL) subcut wearable #2.4 mL injector (Skyrizi) apixaban 5 mg tablet (Eliquis) 5 mg PO BID 04/20/24 09/26/24 History Held on 09/28/24. Instructions: Resume on 09/29/24. PM dose iron sucrose 100 mg iron/5 mL 100 mg IV QWEEK 04/26/24 Unknown History intravenous solution (Venofer) cholestyramine (with sugar) 4 gram 4 g PO HS #378 grams 05/06/24 06/22/24 Rx oral powder epoetin regan-epbx 2,000 unit/mL 40,000 unit subcut MO . 05/06/24 06/20/24 History injection solution (Retacrit) promethazine 12.5 mg tablet 12.5 mg PO Q6H PRN nausea and 05/06/24 Unknown Rx vomiting #20 tabs fluticasone fur. 200 mcg-umeclid 1 inh inhalation Q24H #60 ea 06/10/24 09/28/24 Rx 62.5 mcg-vilant 25 mcg inhalat.powder (Trelegy Ellipta) insulin lispro 100 unit/mL 1 sliding scale dose subcut TID 08/12/24 Unknown History subcutaneous pen (Humalog KwikPen (U-100) Insulin) methocarbamol 500 mg tablet 500 mg PO BID PRN muscle spasm 08/12/24 Unknown History sucroferric oxyhydroxide 500 mg 1,000 mg PO TID 08/12/24 Unknown History chewable tablet (Velphoro) metoclopramide HCl 5 mg tablet 5 mg PO BID PRN nausea and vomiting 08/25/24 Unknown History oxycodone-acetaminophen 5 mg-325 1 tab PO TID pain 08/25/24 Unknown History mg tablet (Percocet) cephalexin 500 mg capsule 500 mg PO Q6H 7 days #28 caps 10/05/24 Unknown Rx sulfamethoxazole 800 1 tab PO BID 14 days #28 tabs 10/05/24 Unknown Rx mg-trimethoprim 160 mg tablet (Bactrim DS) Allergy/AdvReac Type Severity Reaction Status Date / Time atorvastatin (From Lipitor) AdvReac Severe Vomiting Verified 10/07/24 10:51 Family History Mother Hypertension Cancer skin Grandmother Hypertension Diabetes Brother Cancer NHL Arthritis Brother Arthritis Surgical History Hx of surgical procedure History of colonoscopy Hx of BKA Status post insertion of spinal cord stimulator S/P arteriovenous (AV) fistula repair S/P arteriovenous (AV) fistula creation History of lithotripsy History of below-knee amputation of left lower extremity History of eye surgery History of temporal artery biopsy History of lymph node biopsy History of liver biopsy Partial nontraumatic amputation of right foot History of amputation of hallux History of carpal tunnel surgery History of hernia repair History of cholecystectomy History of hysterectomy History of tubal ligation Status post transmetatarsal amputation of right foot Social History (Updated 10/07/24 @ 11:19 by Bhavani Saenz) housing: house Smoking Status: Never smoker second hand exposure: Yes alcohol intake: current details: rare substance use type: does not use Physical Exam Const alert Constitutional Narrative: Patient appears somewhat anxious Nutritional Appearance: obese Neck Neck Narrative: The ultrasound exam I am able to identify the Doppler signal in patient's left IJ (there is significant collapsibility and it was not immediately visualized on initial ultrasound exam) Chest Chest Narrative: Right-sided tunneled hemodialysis catheter in place without surrounding erythema. Clean dressing intact. No tenderness about site. No apparent scars or skin eruptions on the left Resp normal respiratory effort Extremity Extremity Narrative: Left BKA with prosthetic in place Lab / Micro Data 10/07/24 12:13 10/07/24 12:13 Labs: Laboratory Results - last 24 hr 10/07/24 12:13: WBC 5.1, RBC 2.68 L, Hgb 8.8 L, Hct 27.5 L, MCV 102.6 H, MCH 32.8 H, MCHC 32.0, RDW Std Deviation 54.5 H, RDW Coeff of Michael 14.6, Plt Count 116 L, MPV 10.0, Immature Gran % (Auto) 2.000 H, Neut % (Auto) 75.4 H, Lymph % (Auto) 13.9 L, [place] % (Auto) 6.6, Eos % (Auto) 2.1, Baso % (Auto) 0.0, Absolute Neuts (auto) 3.9, Absolute Lymphs (auto) 0.71 L, Nucleated RBC % 0, Sodium 141, Potassium 6.0 H*, Chloride 100, Carbon Dioxide 22.8, Anion Gap 18 H, BUN 47 H, Creatinine 7.74 H*, Estim Creat Clear Calc 9.92 L*, Est GFR (MDRD) Non-Af 6 L, BUN/Creatinine Ratio 6.1 L, Glucose 102 H, Calcium 8.4 10/07/24 12:15: Lactic Acid 1.3 Imaging Radiology Impression Chest X-Ray 10/07/24 12:05 IMPRESSION: The tip of the right double lumen catheter is at the junction of the superior vena cava and right atrium. The lungs are clear. Reading Location: [id number] Charges/Coding Visit Charges Office Visits / Consults: 65505 ED Visit; High/Urgent Severity
[2024-10-07] MEDS: Albuterol 2.5 MG/3 ML VIAL.NEB. INHALATION (13:29)
[2024-10-07] MEDS: Vancomycin HCl 1,500 MG in 0.9% Normal Saline (500mL Bag) 500 ML 250 MG IV (14:12)
[2024-10-07] MEDS: proMETHazine 25 MG/ML Syringe IM (14:15)
--- NOTE | 2024-10-07 17:35 | ED.RN ---
DR GORDON ADVISED OF LOW BS, GAVE PT OJ, HATTIE CRACKERS WITH PB, STRING CHEESE, AND A MEAL WAS ORDERED PREVIOUSLY AND WAITING FOR IT TO ARRIVE. THIS NURSE STAYED WITH PT AND RE-CHECK BG AND PT WAS FEELING BETTER.
--- NOTE | 2024-10-07 19:29 | EKG12_ITS ---
Test Reason : DYSRHYTHMIA Blood Pressure : */* mmHG Vent. Rate : 94 BPM Atrial Rate : 94 BPM P-R Int : 138 ms QRS Dur : 84 ms QT Int : 390 ms P-R-T Axes : 64 -26 68 degrees QTcB Int : 487 ms Normal sinus rhythm QTcB >= 480 msec Abnormal ECG Confirmed by MARYURI KUMAR, PHIL ([id number]), commissioning editor MELISSA TAVERAS ([id number]) on 10/10/2024 7:35:06 AM Referred By: GENA Confirmed By: PHIL WAHL MD
--- NOTE | 2024-10-07 19:31 | ED.RN ---
this nurse had a rpeat ekg dne. pt is a dyalsis pt who we are transferring out. pt had a run of tachycardia/palpitations that did resolve. repeat done
== END 2024-10-08 00:31 | disposition short-term general hospital (02) ==
PROVIDERS: Emergency Provider Emergency Medicine; PCP Family Medicine; Visit Provider Emergency Medicine
DX: T82.848A Pain due to vascular prosthetic devices, implants and grafts, initial encounter (principal); I12.0 Hypertensive chronic kidney disease with stage 5 chronic kidney disease or end stage renal disease; N18.6 End stage renal disease; K50.90 Crohn's disease, unspecified, without complications; I27.20 Pulmonary hypertension, unspecified; J44.9 Chronic obstructive pulmonary disease, unspecified; M32.9 Systemic lupus erythematosus, unspecified; E11.42 Type 2 diabetes mellitus with diabetic polyneuropathy; Z79.4 Long term (current) use of insulin; E11.22 Type 2 diabetes mellitus with diabetic chronic kidney disease; Y71.8 Miscellaneous cardiovascular devices associated with adverse incidents, not elsewhere classified; T82.898A Other specified complication of vascular prosthetic devices, implants and grafts, initial encounter; D63.1 Anemia in chronic kidney disease; M79.602 Pain in left arm; G47.33 Obstructive sleep apnea (adult) (pediatric); E78.00 Pure hypercholesterolemia, unspecified; E87.5 Hyperkalemia; R11.2 Nausea with vomiting, unspecified; Z99.2 Dependence on renal dialysis; Z79.01 Long term (current) use of anticoagulants; Z79.899 Other long term (current) drug therapy; Z86.718 Personal history of other venous thrombosis and embolism; Z86.73 Personal history of transient ischemic attack (TIA), and cerebral infarction without residual deficits
CPT/HCPCS: 71045; 80048; 82962; 83605; 85025; 93005; 94640; 96361; 96365; 96366; 96372; 96375; 96376; 99283; A4216; J2405

== ENCOUNTER → 2024-11-07 | Outpatient (CLI) | payer MEDICARE, SELFPAY ==
[2024-11-07 16:39] LABS: CRP 15.50 mg/L (0.0-3.0)
== END | disposition home or self-care (01) ==
PROVIDERS: PCP Family Medicine; Referring Provider Internal Medicine Gastroenterology; Visit Provider Internal Medicine Gastroenterology
DX: K50.00 Crohn's disease of small intestine without complications (principal)
CPT/HCPCS: 36415; 85652; 86140

== ENCOUNTER → 2024-11-10 | Day surgery (SDC) | payer MEDICARE, SELFPAY ==
--- NOTE | 2024-10-28 15:30 | RAD_ITS ---
PROCEDURE: CHEST PA AND LATERAL 10/28/2024 REASON FOR EXAM: L IJ TUNNELED CATHETER, CHECK POSITION TECHNIQUE: Procedure Code: RADCXR Modality: DX Procedure: CHEST PA AND LATERAL COMPARISON: 10/07/2024 FINDINGS: Hardware: Interval removal of the right with exchange for a left tunneled central venous catheter with tip projecting over the right cavoatrial junction. Heart: The heart size is normal. Mediastinum: The mediastinal contour is stable. Lungs: The lungs are clear. No pneumothorax or sizable pleural effusion. Bones: The bones are unremarkable. RAD/Chest PA and Lateral IMPRESSION: Interval exchange of a right frontal left tunneled central venous catheter. No acute cardiopulmonary changes. Reading Location: [facility]
[2024-11-10 08:49] LABS: Hematocrit 29.5 % (37-47); Hemoglobin 10.0 g/dL (12.0-15.0); Mean Corp Hgb Conc 33.9 g/dL (32-36); Mean Corpuscular Volume 98.0 fL (81-99); Mean Platelet Vol. 10.4 fl (6.2-12.0); Platelet Count 126 K/mm3 (150-450); RBC Distribution Width CV 14.8 % (11.6-14.6); RBC Distribution Width SD 52.5 fl (35.1-43.9); Red Blood Count 3.01 M/mm3 (4.2-5.4); White Blood Count 6.8 K/mm3 (4.4-11.0)
[2024-11-10 08:53] VITALS: BMI 33.7
--- NOTE | 2024-11-10 11:54 | PCM.OPRPT ---
Operative Report (Standard) Operative Information Date of Procedure: 11/10/24 Pre-Operative Diagnosis: malfunctioning left IJ dialysis catheter Post-Operative Diagnosis: same Surgery/Procedure Performed: removal left IJ catheter placement lefft IJ catheter Venogrm SVC, right upper extremity IVUS IVC, SVC, left innominate vein, left IJ [place] seamer: No Type of Anesthesia: Local and Sedation,Conscious Procedure Start Time: 10:30 Procedure Stop Time: 11:30 Select all DRAINS/GRAFTS/IMPLANTS that apply: Implanted device Implanted device details: Bard Pristine Catheter, 23 cm Estimated Blood Loss: 7 Specimen collected: No Description of surgery: HPI: Patient is a 54-year-old female with end-stage renal disease currently on dialysis. She had a longstanding left forearm belkofski fistula which ultimately required ligation and she has struggled with establishing new long-term access. She currently has a left tunneled IJ catheter which is not functioning well and history of left upper extremity steal after prior fistula creation. She presents now for IJ catheter exchange with venogram and IVUS plan to assess for any evidence of stricture at the catheter tip that could be contributing to the failure. We also plan to perform a right upper extremity venogram to assess the central venous system for possible right chest wall AV graft in the future. Description procedure: Upon obtaining informed consent and verification correct patient procedure site the patient was taken to the [facility] [employer] where she was positioned prepped and draped in usual sterile fashion. Timeout was performed upon sedation administered Versed and fentanyl. Skin overlying the previously placed tunneled catheter from the skin exit site to the IJ access site was anesthetized 1% lidocaine. Incision was made over the apex of the tunnel and blunt dissection used to dissect down to the catheter. This was then grasped with a hemostat and extracted from the wound and then divided. A stiff angled Glidewire was then advanced through the catheter and under fluoroscopic guidance and navigated into the inferior vena cava. The distal end of the catheter was then withdrawn and disposed of and an 8 [place] sheath advanced over the wire and advanced under fluoroscopic guidance without resistance. Hand-injection digital projection venogram revealed brisk contrast transit with some luminal irregularity within the innominate vein but what appeared to be adequate caliber vena cava with no evidence of stenosis. This also revealed the location of the atriocaval junction which was significantly lower than the end of the previously placed catheter. Next intravascular ultrasound probe was advanced over the wire and recorded pullback performed of the IVC, SVC, left innominate vein left IJ. This confirmed that there was some fibrin sheath around the mid and proximal catheter however there was no evidence of fibrin deposition or into micro plasia where the intended catheter tip position would be. The ultrasound probe and 8 [place] sheath were then withdrawn and the tract dilated sequentially and the peel-away sheath from a Bard pristine tunneled dialysis catheter advanced without resistance. Next counterincision was made more medial to the previous tunnel in the new tunneled catheter tunneled from the skin exit incision to the peel-away sheath. This was then advanced through the sheath and the peel-away sheath extracted under fluoroscopic guidance with satisfactory catheter position just inferior to the atriocaval junction. The catheter was then secured to the skin with 3-0 Ethilon suture. The counterincision over the apex of the tunnel was then closed with 4 Monocryl and Dermabond for the skin. Finally the remaining piece of the pre-existing tunneled catheter was bluntly dissected to the cuff from the skin exit site and then extracted without difficulty and with no evidence of infection. Dry sterile dressing was then placed over the previous catheter skin exit site and a dry sterile dressing placed over the new catheter. Next right upper extremity venogram was performed via the IV access in the forearm with sequential subtraction venography performed from the antecubital crease to the atriocaval junction. This revealed small caliber superficial vein system that emptied into a small caliber brachial vein though patent. The axillary and subclavian vein were patent with normal contrast transit and no evidence of stenosis. The right innominate vein briskly emptied into the vena cava without delay in contrast transit. Patient was then awake from her sedation and taken to cover area with plan discharge to home. Surgical Findings: see above Complications Complications: No
== END | disposition home or self-care (01) ==
PROVIDERS: PCP Family Medicine; Referring Provider Surgery Trauma Surgery; Visit Provider Surgery Trauma Surgery
DX: T82.41XA Breakdown (mechanical) of vascular dialysis catheter, initial encounter (principal); N18.6 End stage renal disease; I12.0 Hypertensive chronic kidney disease with stage 5 chronic kidney disease or end stage renal disease; J44.9 Chronic obstructive pulmonary disease, unspecified; E11.22 Type 2 diabetes mellitus with diabetic chronic kidney disease; K21.9 Gastro-esophageal reflux disease without esophagitis; D63.1 Anemia in chronic kidney disease; I77.0 Arteriovenous fistula, acquired; Y71.8 Miscellaneous cardiovascular devices associated with adverse incidents, not elsewhere classified
CPT/HCPCS: 36005; 36010; 36415; 36558; 36589; 37191; 37252; 37253; 71046; 75820; 75827; 77001; 85027; 99152; 99153; C1753; Q9967; A4216; C1769; C1894; J2405

== ENCOUNTER → 2024-11-22 | Outpatient (CLI) | payer MEDICARE, SELFPAY ==
--- NOTE | 2024-11-22 14:00 | RAD_ITS ---
PROCEDURE: CHEST PA AND LATERAL 11/22/2024 REASON FOR EXAM: CHECK PLACEMENT TUNNELED DIALYSIS CATHETER TECHNIQUE: Procedure Code: RADCXR Modality: DX Procedure: CHEST PA AND LATERAL COMPARISON: 10/28/24 FINDINGS: Left IJ central line in appropriate placement. No focal consolidation. Bibasilar subsegmental atelectasis. No pleural effusion or pneumothorax. Cardiac silhouette is within normal limits. No acute fractures. RAD/Chest PA and Lateral IMPRESSION: Left IJ central line in appropriate placement. No focal consolidation. Bibasilar subsegmental atelectasis. Reading Location: [id number]
[2024-11-22 16:12] LABS: Anion Gap 22 (5-15); BUN 75 mg/dL (4-19); BUN/Creat Ratio 7.8 RATIO (10-20); Calcium,Total 7.3 mg/dL (7.6-11.0); Carbon Dioxide 19.1 mmol/L (21.0-32.0); Chloride 96 mmol/L (98-108); Glucose 58 mg/dL (70-99); Potassium 6.1 mmol/L (3.3-5.1)
== END | disposition home or self-care (01) ==
PROVIDERS: Physician Assistant; PCP Family Medicine; Referring Provider Surgery Trauma Surgery; Visit Provider Surgery Trauma Surgery
DX: T82.41XA Breakdown (mechanical) of vascular dialysis catheter, initial encounter (principal)
CPT/HCPCS: 36415; 71046; 80048

== ENCOUNTER 2024-11-23 12:58 | Day surgery (SDC) | payer MEDICARE, SELFPAY ==
[2024-11-23 13:51] VITALS: BMI 33.7
--- NOTE | 2024-11-23 13:57 | PCM.HP.STD ---
HPI - General HPI Narrative FORD HESTER, is a 54 F who presents with dialysis catheter with an exposed cuff. She had catheter placed/exchanged 11/10 due to malfunction of prior catheter. Two days ago she had episode of violent vomitting and felt pain at catheter site; upon inspection she had cuff exposed so she contacted the office. REPLACED BY [facility] Medical History (Updated 11/23/24 @ 14:[address] Mikey Cavanaugh MD) Contusion of left hip Contusion of right forearm Arteriovenous fistula History of Holter monitoring MRSA infection History of steroid therapy Thyroid disease History of renal dialysis History of renal disease Low iron Syncope History of Crohn's disease GERD (gastroesophageal reflux disease) Chronic cough History of edema History of atrial fibrillation Secondary hyperparathyroidism DM type 2 (diabetes mellitus, type 2) Depression Asthma Migraines ESRD (end stage renal disease) on dialysis Lung nodule seen on imaging study Blindness Cataract (lens) fragments in eye following cataract surgery, bilateral Atrial fibrillation, controlled Essential hypertension Uses prosthesis Wears glasses Anxiety Insulin dependent diabetes mellitus Uses wheelchair Arthritis DVT (deep venous thrombosis) High cholesterol TIA (transient ischemic attack) Seizures Dietary restriction History of hiatal hernia Non-smoker CPAP (continuous positive airway pressure) dependence Sleep apnea Shortness of breath on exertion History of echocardiogram History of stress test Cardiology follow-up encounter Positive QuantiFERON-TB Gold test Crohn's disease Hx of pancreatitis Hepatosplenomegaly Enteritis Nausea and vomiting Alternating constipation and diarrhea Diarrhea HINTON (nonalcoholic steatohepatitis) CKD (chronic kidney disease) Viral gastroenteritis Acute right flank pain Anemia in chronic kidney disease (CKD) COVID-19 virus detected Pneumonia due to COVID-19 virus Below-knee amputation of left lower extremity Osteomyelitis of left foot History of stroke COPD (chronic obstructive pulmonary disease) IBS (irritable bowel syndrome) GERD (gastroesophageal reflux disease) Diastolic dysfunction Cellulitis of left foot Iron (Fe) deficiency anemia Acute kidney injury Right middle lobe pneumonia Hypomagnesemia Osteomyelitis of right foot Peripheral neuropathy Depression Infection of right great toe due to methicillin resistant Staphylococcus aureus (MRSA) Cellulitis of right foot History of MRSA infection Diabetes mellitus Asthma Pulmonary hypertension SLE (systemic lupus erythematosus) Home Medications ?Medication ?Instructions ?Recorded ?Last Taken ?Type duloxetine 60 mg capsule,delayed 60 mg PO QHS depression 11/26/12 06/22/24 History release insulin regular hum U-500 conc 500 2.2 units subcut CONT insulin pump 10/02/15 04/26/24 History unit/mL subcutaneous soln trazodone 100 mg tablet 150 mg PO QHS sleep 12/27/15 06/22/24 History ergocalciferol (vitamin D2) 1,250 50,000 unit PO FR supplement 01/24/16 06/17/24 History mcg (50,000 unit) capsule albuterol sulfate 2.5 mg/3 mL 2.5 mg inhalation Q4H PRN PRN 06/09/16 04/20/24 History (0.083 %) solution for nebulization Wheezing gabapentin 800 mg tablet 800 mg PO TID neuropathy 05/19/17 06/22/24 History rosuvastatin 10 mg tablet 40 mg PO QHS cholesterol 06/03/17 06/22/24 History magnesium oxide 400 mg (241.3 mg 400 mg PO DAILYCM supplement 07/30/18 06/22/24 History magnesium) tablet hydroxyzine pamoate 50 mg capsule 50 mg PO TID PRN Anxiety 02/20/20 04/25/24 History duloxetine 30 mg capsule,delayed 30 mg PO DAILY depression 05/09/20 06/22/24 History release ondansetron 4 mg disintegrating 8 mg PO Q8H PRN PRN Nausea 09/03/21 01/11/24 History tablet diphenoxylate-atropine 2.5 1 tab PO BID PRN diarrhea #180 tabs 08/04/22 04/25/24 Rx mg-0.025 mg tablet (Lomotil) hyoscyamine sulfate 0.125 mg tablet 0.125 mg PO BID-QID PRN abdominal 08/04/22 Unknown Rx pain #360 tabs albuterol sulfate 90 mcg/actuation 2 puff inhalation Q4-6H PRN 02/26/23 06/23/24 History aerosol inhaler (ProAir HFA) shortness of breath or wheezing fenofibrate nanocrystallized 48 mg 48 mg PO DAILY . 08/11/23 06/22/24 History tablet cinacalcet 30 mg tablet 60 mg PO DAILY . 10/23/23 06/22/24 History midodrine 10 mg tablet 20 mg PO 4XD PRN . 10/23/23 04/25/24 History omeprazole 40 mg capsule,delayed 40 mg PO BID GERD 10/23/23 09/28/24 History release fludrocortisone 0.1 mg tablet 0.1 mg PO DAILY #30 TABLETS 12/18/23 06/22/24 Rx calcitriol 0.25 mcg capsule 0.25 mcg PO QDAY 02/03/24 06/22/24 History calcitriol 0.5 mcg capsule 0.5 mcg PO QHS . 02/03/24 06/22/24 History vitamin B complex-vitamin C-folic 1 tab PO QDAY 02/03/24 04/25/24 History acid 0.8 mg tablet (Nephro-[place]) apixaban 5 mg tablet (Eliquis) 5 mg PO BID 04/20/24 11/22/24 History iron sucrose 100 mg iron/5 mL 100 mg IV QWEEK 04/26/24 Unknown History intravenous solution (Venofer) cholestyramine (with sugar) 4 gram 4 g PO HS #378 grams 05/06/24 06/22/24 Rx oral powder epoetin regan-epbx 2,000 unit/mL 40,000 unit subcut MO . 05/06/24 06/20/24 History injection solution (Retacrit) promethazine 12.5 mg tablet 12.5 mg PO Q6H PRN nausea and 05/06/24 Unknown Rx vomiting #20 tabs fluticasone fur. 200 mcg-umeclid 1 inh inhalation Q24H #60 ea 06/10/24 09/28/24 Rx 62.5 mcg-vilant 25 mcg inhalat.powder (Trelegy Ellipta) insulin lispro 100 unit/mL 1 sliding scale dose subcut TID 08/12/24 Unknown History subcutaneous pen (Humalog KwikPen (U-100) Insulin) methocarbamol 500 mg tablet 500 mg PO BID PRN muscle spasm 08/12/24 Unknown History sucroferric oxyhydroxide 500 mg 1,000 mg PO TID 08/12/24 Unknown History chewable tablet (Velphoro) metoclopramide HCl 5 mg tablet 5 mg PO BID PRN nausea and vomiting 08/25/24 Unknown History oxycodone-acetaminophen 5 mg-325 1 tab PO TID pain 08/25/24 Unknown History mg tablet (Percocet) phentermine 15 mg capsule 15 mg PO QDAY #30 caps 11/07/24 Unknown Rx risankizumab-rzaa 360 mg/2.4 mL 360 mg (2.4 mL) subcut .COMPLEX . 11/16/24 Unknown Rx (150 mg/mL) subcut wearable #2.4 mL injector (Skyrizi) Allergy/AdvReac Type Severity Reaction Status Date / Time atorvastatin (From Lipitor) AdvReac Severe Vomiting Verified 10/13/24 09:30 Family History Mother Hypertension Cancer skin Grandmother Hypertension Diabetes Brother Cancer NHL Arthritis Brother Arthritis Surgical History Hx of surgical procedure History of colonoscopy Hx of BKA Status post insertion of spinal cord stimulator S/P arteriovenous (AV) fistula repair S/P arteriovenous (AV) fistula creation History of lithotripsy History of below-knee amputation of left lower extremity History of eye surgery History of temporal artery biopsy History of lymph node biopsy History of liver biopsy Partial nontraumatic amputation of right foot History of amputation of hallux History of carpal tunnel surgery History of hernia repair History of cholecystectomy History of hysterectomy History of tubal ligation Status post transmetatarsal amputation of right foot Social History housing: house Smoking Status: Never smoker second hand exposure: Yes alcohol intake: current details: rare substance use type: does not use ROS Constitutional Constitutional: Denies chills, fever(s), frequent falls, lethargy or weakness Eyes Eyes: Denies blind spots, change in vision or loss of vision ENT HEENT: Denies bleeding gums, hoarseness or sore throat Cardiovascular Cardiovascular: Denies abdominal pain, bluish discoloration of hand/feet, chest pain with activity, claudication, cold extremities, cyanosis, dyspnea on exertion, erythema on extremities, irregular heart rhythm, leg edema, leg ulcers, numbness in extremities or weakness in extremities Respiratory/Chest Respiratory/Chest: Denies cough, excessive phlegm production, shortness of breath at rest, shortness of breath with exertion or wheezing Gastrointestinal Gastrointestinal: Denies anorexia, change in stool character, constipation, diarrhea, melena or rectal bleeding Genitourinary Genitourinary: Denies dysuria or hematuria Musculoskeletal Musculoskeletal: Denies abnormal gait Integumentary Integumentary: Reports other Details: ; Denies erythema, non-healing lesions or wounds Neurologic Neurologic: Denies abnormal speech, focal weakness, headache(s), loss of vision, numbness, paresthesias or sensory deficit Hematologic/Lymphatic Hematologic/Lymphatic: Denies easy bleeding, easy bruising or lymphadenopathy Vital Signs Vital Signs Vital Signs: Weight Weight: 209 lb Body Mass Index (BMI) 33.7 Physical Exam Const alert, oriented x3, no apparent distress and healthy appearing General Appearance: cooperative; Negative for combative or lethargic Orientation / Consciousness: awake Exam Limitations: no limitations HEENT Head and Scalp: normocephalic and atraumatic Eyes EOMs intact bilaterally General Eye: normal appearance of both eyes Neck full ROM and no lymphadenopathy General: trachea midline Lymph Lymphatic: Negative for no lymphadenopathy noted Resp normal respiratory effort and no use of accessory muscles Effort and Inspection: Negative for labored, stridor or audible wheezes Cardio regular rate and regular rhythm Back/Spine Cervical Spine: cervical ROM normal Extremity full ROM, normal capillary refill and no clubbing, cyanosis or edema Skin no rashes or lesions noted and no wounds Neuro oriented x3, CN's II-XII intact bilaterally, no focal motor deficits and no sensory deficits noted Psych thought process normal, cooperative, affect normal, speech normal and activity/motor behavior normal Assessment & Plan Assessment/Plan (1) Hemodialysis catheter dysfunction: QUALIFIERS: Encounter type: initial encounter Qualified Code(s): T82.41XA - Breakdown (mechanical) of vascular dialysis catheter, initial encounter PLAN: -will place new catheter on right side and remove left side
--- NOTE | 2024-11-23 17:00 | PCM.OPRPT ---
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 2 days ago she was having severe episode of nausea vomiting and retching after which she felt some discomfort at the catheter site and observed that her cuff was now exposed at the skin exit site. She also stated that there was some exposed catheter superior to the cuff that occasionally would be visible as well. Given the loss of integrity of the cuff with regards to barrier to infection she is taken now for replacement of new catheter on the contralateral side with removal of the existing catheter. Description of procedure: Upon obtaining informed consent and verification correct patient procedure site the patient was taken to the Software Engineer Advisor where she was positioned prepped and draped in usual sterile fashion. Timeout was performed consultation ministered Versed and fentanyl. Skin overlying the right internal jugular vein was anesthetized 1% lidocaine the vessel accessed without micropuncture needle wire under ultrasound guidance. This was exchanged for a micropuncture sheath through which a J-wire was advanced ultimately into the inferior vena cava. There was significant scar tissue and subcutaneous tissue from prior catheters so there was expected difficulty with dilators and exchanging for the sheath. In order to maximize our stability and support a KMP catheter was advanced into the inferior vena cava and the J-wire exchanged for a short tipped Amplatz wire. The KMP catheter was then withdrawn and the subcutaneous tract dilated with serial dilators up to 17.5 Maltese. Next the peel-away sheath was advanced over the wire and into the superior vena cava without resistance. A tunnel site and exit point were then identified and the tract and exit site anesthetized with 1% lidocaine. Skin incision was made with 11 blade and the tunneler tract from the site up to the sheath skin site. The catheter was then advanced through the peel-away sheath which was then extracted while maintaining forward pressure. The catheter rested in position at the atriocaval junction though due to scar tissue there was some minor kink in the catheter at the apex. The soft tissue was bluntly dissected until there was satisfactory smooth transition of the catheter at the apex. The catheter was then flushed with heparin and caps applied. It was then secured to the skin with 3-0 Ethilon suture. Dry sterile dressing was then applied. Next the pre-existing left IJ catheter sutures were divided and the catheter withdrawn without resistance. There was no obvious purulence or erythema surrounding the tunnel site. Dry sterile dressing was then applied at this location the patient was awake from her sedation taken recovery area with anticipated discharge to home. Surgical Findings: See above Complications Complications: No
== END 2024-11-23 16:26 | disposition home or self-care (01) ==
PROVIDERS: PCP Family Medicine; Referring Provider Surgery Trauma Surgery; Visit Provider Surgery Trauma Surgery
DX: T82.41XA Breakdown (mechanical) of vascular dialysis catheter, initial encounter (principal); I12.0 Hypertensive chronic kidney disease with stage 5 chronic kidney disease or end stage renal disease; N18.6 End stage renal disease; J44.9 Chronic obstructive pulmonary disease, unspecified; E11.42 Type 2 diabetes mellitus with diabetic polyneuropathy; E11.22 Type 2 diabetes mellitus with diabetic chronic kidney disease; E78.00 Pure hypercholesterolemia, unspecified; Y71.8 Miscellaneous cardiovascular devices associated with adverse incidents, not elsewhere classified; K21.9 Gastro-esophageal reflux disease without esophagitis; Z79.01 Long term (current) use of anticoagulants; Z86.718 Personal history of other venous thrombosis and embolism; Z99.2 Dependence on renal dialysis
CPT/HCPCS: 36558; 36589; 76937; 77001; 99152; 99153; C1750; C1894; C1769; J2405